=== PATIENT | male | born 1960 | race Caucasian/White ===

== ENCOUNTER → 2020-07-02 | Outpatient (CLI) | payer MEDICARE, OTHER ==
[2020-07-02 08:49] VITALS: BP 110/73; PULSE 75; RESP 20; TEMP 98.3
--- NOTE | 2020-07-02 09:20 | P.PAINCN ---
History of Present Illness - Reason for Consult Consult date: 07/02/20 - History of Present Illness This is a 59-year-old patient referred by Dr. Villagomez/Pelon with a chief complaint of low back pain and right shoulder pain. The patient is a past medical history of very poorly controlled diabetes with peripheral neuropathy, atrial fibrillation on Xarelto, and significantly morbid obesity. He was a patient Dr. Villagomez's who is managing his low back pain and leg pain with Neurontin 800 mg 3 times a day and Ultram 50 mg 1-4 times a day as needed. Currently he says his low back pain is doing well and he feels that his shoulder pain is of significant prior to him. Pain is located in the right shoulder with radiation into the elbow described as aching stabbing and very painful. Pain is currently an 8 out of 10, 2 out of 10 at its best with medication. He does describe weakness in that right arm due to pain in the shoulder area. He hasn't seen Dr. Webb for this, however was noted that he is not a surgical candidate. Given his significant medical history, poorly controlled diabetes and overall habitus he is been told many times that he is not a candidate for cortisone injections or shoulder surgery. Patient denies adverse drug effects from medications. Patient also denies new-onset weakness, bowel/bladder incontinence, or any other signs or symptoms of cauda equina syndrome. There are no signs of acute intoxication, and no indications of medication diversion or overuse. In addition to above, 13-point review of systems is also negative for chest pain, shortness of breath, changes in vision, changes in hearing, new onset weakness, abdominal pain, diarrhea, extreme fatigue, malaise, fever, skin changes, homicidal or suicidal ideation, or bowel or bladder incontinence. Physical exam: Vital Signs: Reviewed in EMR GENERAL: Morbidly obese, in no acute distress, walks with a walker PSYCH: Mood and affect is appropriate. Awake, alert, and oriented SKIN: Skin color, texture, turgor normal, no rashes or lesions HEENT: Normocephalic, atraumatic. EOM intact CV: No pedal edema RESP: Respirations are unlabored, no audible wheezing GI: Abdomen non-distended MUSCULOSKELETAL: LLE: 5/5 hip flexion, 4/5 knee extension, 3/5 dorsiflexion, ankle eversion 3/5, EHL 3/5 RLE: 5/5 hip flexion, 4/5 knee extension, 3/5 dorsiflexion, ankle eversion 3/5, EHL 3/5 Neck: No pain to palpation over the cervical paraspinous muscles. Spurling negative, Axial Loading Test negative, Hanna's sign negative. Some pain with right sided neck extension. Lumbar spine: Straight leg raising in the sitting position is negative for radicular pain. No pain to palpation over the lumbar spine and paraspinous muscles. Negative for pain with facet loading and back extension/rotation. Normal range of motion without pain reproduction Extremities: Peripheral joint ROM is full and pain free without obvious instability or laxity in all four extremities. No edema or skin discolorations noted. Gait: Gait is normal NEUR: Bilateral upper and lower extremity coordination and muscle stretch reflexes are physiologic and symmetric. Negative clonus. No loss of sensation is noted. Cranial nerves are grossly intact. Imaging: Lumbar MRI 2018 L3 4: Broad-based posterior disc bulge causing slight anterior mass effect on thecal sac. No significant stenosis or local mass effect. Mild facet arthropathy. L4-L5: Small posterior disc bulge somewhat eccentric towards the left, some increased signal present in the posterior aspect of the distal to midline compatible with annular tear. No significant central canal stenosis. Maybe some contact with the proximal L5 nerve. Some facet arthropathy change. L5-S1. Small posterior disc bulge with contact approximately S1 nerve roots. Circumflex marginal extension and play discomfort foraminal encroachment, no si gnificant central canal stenosis. Assessment: 1. right shoulder pain 2. low back pain Plan: 1. Explanation: Diagnoses, prognoses, and multiple treatment options including but not limited to physical therapy, interventional therapies, medication management and surgery were discussed with the patient and all questions were answered to the patient's satisfaction. 2. Investigations: Consider cervical MRI in the future, however I do not feel that he has pain originating from her cervical spine. He notes that he has had multiple images done of his shoulder at multiple offices, I told him to bring these back with him if he can. 3. Counseling: The patient was counseled for 3 minutes on SMOKING CESSATION, BODY MASS INDEX, EXERCISE. Specifically, the patient was instructed regarding the importance of smoking cessation, weight control, and exercise in the context of both chronic pain and overall health. 4. Procedures: At this point I do not consider him a procedure candidate. Given his weight, medical history, poorly controlled diabetes, I do not think that a steroid injection would be helpful for him. 5. Consultations: None 6. Medications: Abdomen TENS unit, lidocaine patches, and magnesium 4 mg twice a day. He is not a good candidate for NSAIDs given his cardiac history and would not be a good candidate for TCAs given his cardiac history. He is on gabapentin 800 mg 3 times a day which is helpful, I did say there is a chance that they can go up on this to 900 mg 3 times a day. 7. Disposition: 8 weeks or as needed Past Medical History Past Medical History: Atrial Fibrillation, CVA/TIA, Diabetes Mellitus, GERD/Reflux, Hyperlipidemia, Hypertension, Sleep Apnea/CPAP/BIPAP Additional Past Medical History / Comment(s): diabetic neuropathy, "leaky valve", frequent foot & ankle swelling, USES C-PAP History of Any Multi-Drug Resistant Organisms: None Reported Past Surgical History: Bariatric Surgery, Hernia Repair Additional Past Surgical History / Comment(s): GASTRIC SLEEVE. EGD Past Anesthesia/Blood Transfusion Reactions: No Reported Reaction Smoking Status: Former smoker - Past Family History Mother Family Medical History: Cancer Medications and Allergies Home Medications Medication Instructions Recorded Confirmed Type Cholecalciferol [Vitamin D3 (25 1,000 unit PO DAILY 06/27/20 07/02/20 History Mcg = 1000 Iu)] Furosemide [Lasix] 40 mg PO DAILY 06/27/20 07/02/20 History Gabapentin 800 mg PO TID 06/27/20 07/02/20 History Losartan [Cozaar] 50 mg PO DAILY 06/27/20 07/02/20 History Metoprolol Tartrate [Lopressor] 100 mg PO BID 06/27/20 07/02/20 History Omeprazole [PriLOSEC] 20 mg PO AC-BID 06/27/20 07/02/20 History Pioglitazone [Actos] 30 mg PO DAILY 06/27/20 07/02/20 History Rivaroxaban [Xarelto] 20 mg PO HS 06/27/20 07/02/20 History Spironolactone 25 mg PO DAILY 06/27/20 07/02/20 History glipiZIDE [Glucotrol] 2.5 mg PO AC-BID 06/27/20 07/02/20 History sitaGLIPtin [Januvia] 100 mg PO DAILY 06/27/20 07/02/20 History traMADol HCL [Ultram] 100 mg PO Q6HR PRN 06/27/20 07/02/20 History Allergies Allergy/AdvReac Type Severity Reaction Status Date / Time No Known Allergies Allergy Verified 06/27/20 14:40 PQRS Measure Charge Sheet PQRS Narrative: Smoking Status Former smoker Pain Intensity [Lower Back] 4 Scale Used Numeric (1 - 10) Hx Alcohol Use (MH) No Home Medications: Ambulatory Orders Cholecalciferol [Vitamin D3 (25 Mcg = 1000 Iu)] 1,000 unit PO DAILY 06/27/20 Furosemide [Lasix] 40 mg PO DAILY 06/27/20 Gabapentin 800 mg PO TID 06/27/20 Losartan [Cozaar] 50 mg PO DAILY 06/27/20 Metoprolol Tartrate [Lopressor] 100 mg PO BID 06/27/20 Omeprazole [PriLOSEC] 20 mg PO AC-BID 06/27/20 Pioglitazone [Actos] 30 mg PO DAILY 06/27/20 Rivaroxaban [Xarelto] 20 mg PO HS 06/27/20 Spironolactone 25 mg PO DAILY 06/27/20 glipiZIDE [Glucotrol] 2.5 mg PO AC-BID 06/27/20 sitaGLIPtin [Januvia] 100 mg PO DAILY 06/27/20 traMADol HCL [Ultram] 100 mg PO Q6HR PRN 06/27/20
== END | disposition home or self-care (01) ==
LOC: PNWHC3 08:28
PROVIDERS: ATTEND Anesthesiology
DX: M54.5 Low back pain (principal); M25.511 Pain in right shoulder; I48.91 Unspecified atrial fibrillation; E11.9 Type 2 diabetes mellitus without complications; K21.9 Gastro-esophageal reflux disease without esophagitis; I10 Essential (primary) hypertension; E78.5 Hyperlipidemia, unspecified; G47.33 Obstructive sleep apnea (adult) (pediatric); Z99.89 Dependence on other enabling machines and devices; Z79.891 Long term (current) use of opiate analgesic; Z79.899 Other long term (current) drug therapy; Z79.84 Long term (current) use of oral hypoglycemic drugs; Z87.891 Personal history of nicotine dependence
CPT/HCPCS: 99211

== ENCOUNTER 2021-02-26 07:08 | Day surgery (SDC) | payer MEDICARE ==
[2021-02-22 09:04] VITALS: BMI 68.5
[~2021-02-26 07:08] MED LIST: LACTATED RINGERS 1,000 ML IV SCH
[2021-02-26 07:30] VITALS: TEMP 98
[2021-02-26 07:40] LABS: Glucose,Whole Blood 141 mg/dL (75-99)
[2021-02-26] MEDS ORDERED: MIDAZOLAM 2 MG/2 ML VIAL ONE (08:13)
[2021-02-26] MEDS ORDERED: PROPOFOL 10 MG/ML 20 ML VIAL IV ONE (08:13)
[2021-02-26] MEDS ORDERED: KETAMINE 10 MG/ML 20 ML VIAL ONE (08:13)
--- NOTE | 2021-02-26 08:15 | P.GSHP ---
History of Present Illness H&P Date: 02/26/21 Chief Complaint: GERD, hiatal hernia 60-year-old male known to our service. Underwent previous sleeve gastrectomy. Recently had CAT scan showing small hiatal hernia and mild thickening of the distal esophagus. Complaining of mild reflux. Past Medical History Past Medical History: Atrial Fibrillation, CVA/TIA, Diabetes Mellitus, GERD/Reflux, Hyperlipidemia, Hypertension, Sleep Apnea/CPAP/BIPAP Additional Past Medical History / Comment(s): diabetic neuropathy, "leaky valve", frequent foot & ankle swelling, USES C-PAP, shortness of breath, unable to walk distances History of Any Multi-Drug Resistant Organisms: None Reported Past Surgical History: Bariatric Surgery, Hernia Repair Additional Past Surgical History / Comment(s): GASTRIC SLEEVE. EGD Past Anesthesia/Blood Transfusion Reactions: No Reported Reaction, Motion Sickness Smoking Status: Former smoker - Past Family History Mother Family Medical History: Cancer Medications and Allergies Home Medications Medication Instructions Recorded Confirmed Type Cholecalciferol [Vitamin D3 (25 1,000 unit PO DAILY 06/27/20 02/22/21 History Mcg = 1000 Iu)] Furosemide [Lasix] 40 mg PO DAILY 06/27/20 02/22/21 History Gabapentin 800 mg PO TID 06/27/20 02/22/21 History Losartan [Cozaar] 50 mg PO DAILY 06/27/20 02/22/21 History Metoprolol Tartrate [Lopressor] 50 mg PO BID 06/27/20 02/22/21 History Omeprazole [PriLOSEC] 20 mg PO AC-BID 06/27/20 02/22/21 History Pioglitazone [Actos] 30 mg PO DAILY 06/27/20 02/22/21 History Rivaroxaban [Xarelto] 20 mg PO HS 06/27/20 02/22/21 History Spironolactone 25 mg PO DAILY 06/27/20 02/22/21 History glipiZIDE [Glucotrol] 2.5 mg PO AC-BID 06/27/20 02/22/21 History sitaGLIPtin [Januvia] 100 mg PO DAILY 06/27/20 02/22/21 History traMADol HCL [Ultram] 50 mg PO Q6HR PRN 06/27/20 02/22/21 History metFORMIN HCL ER [Glucophage Xr] 500 mg PO BID 07/02/20 02/22/21 History Albuterol Nebulized [Ventolin 2.5 mg INHALATION Q6H 02/22/21 02/22/21 History Nebulized] Allergies Allergy/AdvReac Type Severity Reaction Status Date / Time latex Allergy Rash/Hives Verified 02/26/21 07:31 Surgical - Exam Vital Signs Temp Pulse Resp BP Pulse Ox 98 F 72 16 164/75 95 02/26/21 07:29 02/26/21 07:29 02/26/21 07:29 02/26/21 07:29 02/26/21 07:29 Physical exam: General: Well-developed, well-nourished HEENT: Normocephalic, sclerae nonicteric Abdomen: Nontender, nondistended Extremities: No edema Neuro: Alert and oriented Results - Labs Abnormal Lab Results - Last 24 Hours (Table) 02/26/21 Range/Units 07:38 POC Glucose (mg/dL) 141 H (75-99) mg/dL Assessment and Plan (1) GERD (gastroesophageal reflux disease) Narrative/Plan: Will proceed with upper endoscopy at this time Current Visit: Yes Status: Acute Code(s): K21.9 - GASTRO-ESOPHAGEAL REFLUX DISEASE WITHOUT ESOPHAGITIS SNOMED Code(s): 345952181
--- NOTE | 2021-02-26 08:29 | P.PCN ---
Date of Procedure: 02/26/21 Procedure(s) Performed: Preoperative Dx: GERD Postoperative Dx: Small hiatal hernia, mild gastritis, mild distal esophagitis Procedure: EGD with Bx Anesthesia: Sedation Endoscopist: Dr. Perez Specimens: Antrum, distal esophagus Endoscopic Procedure: The patient was on the endoscopy table in the left decub itus position. The Olympus gastroscope was inserted into the oropharynx and passed under direct visualization to the region of the third portion of the duodenum. From that point the scope was slowly withdrawn inspecting all surfaces carefully. There were no neoplastic inflammatory or polypoid lesions throughout the duodenum. The pylorus was widely patent. The stomach was carefully inspected. There was mild gastritis present. The patient's previous sleeve gastrectomy staple line was fully intact. No retroflexion took place. A biopsy of the antrum took place. At the proximal stomach with the suggestion of a small hiatal hernia with approximately 2-3 cm of the sleeve present above the diaphragmatic hiatus. At the distal esophagus there was non-circumferential 1 inflammatory changes consistent with reflux esophagitis. Biopsies of the distal esophagus took place. The inflammatory changes extended 2 cm above the Z line. The remainder the esophagus appear normal. The patient was then taken to the recovery room in stable condition per anesthesia guidelines. Recommendations: Await biopsy results. Continue antiacids.
[2021-02-26 08:54] VITALS: BP 131/61; PULSE 79; RESP 14
== END 2021-02-26 09:13 | disposition home or self-care (01) ==
LOC: ORWHC2ENDO 07:08
PROVIDERS: ATTEND Surgery
DX: K21.00 Gastro-esophageal reflux disease with esophagitis, without bleeding (principal); K44.9 Diaphragmatic hernia without obstruction or gangrene; E11.40 Type 2 diabetes mellitus with diabetic neuropathy, unspecified; E78.5 Hyperlipidemia, unspecified; I10 Essential (primary) hypertension; I48.91 Unspecified atrial fibrillation; K29.50 Unspecified chronic gastritis without bleeding; Z79.84 Long term (current) use of oral hypoglycemic drugs; Z86.73 Personal history of transient ischemic attack (TIA), and cerebral infarction without residual deficits; Z87.891 Personal history of nicotine dependence; Z91.040 Latex allergy status; Z98.84 Bariatric surgery status
CPT/HCPCS: 43239; 88305; J2250; J2704

== ENCOUNTER → 2021-05-07 | Outpatient (CLI) | payer MEDICARE, OTHER ==
[2021-05-07 12:57] VITALS: BP 154/72; PULSE 72; TEMP 98.1; BMI 69.4
--- NOTE | 2021-05-07 13:48 | P.BASOAP ---
Subjective Progress Note Date: 05/07/21 Principal diagnosis: Morbid obesity Patient returns for evaluation. He was last seen on 727 and underwent EGD at that time. EGD showed small hiatal hernia and mild reflux esophagitis. Biopsies benign. Patient has gained further weight. He states he is concerned he may have chosen the wrong surgery at this time and is considering gastric bypass. His heartburn symptoms did resolve after going from 20 mg to 40 mg once daily. He is doing a food diary. Denies pain. Objective - Vital Signs Vital signs: Vital Signs Temp 98.1 F 05/07/21 12:52 Pulse 72 05/07/21 12:52 Resp BP 154/72 05/07/21 12:52 Pulse Ox Intake & Output 05/06/21 05/07/21 05/07/21 18:59 06:59 18:59 Weight 219.539 kg - Exam Abdomen: Soft, nontender, nondistended Assessment/Plan (1) Morbid obesity Narrative/Plan: 60-year-old male with weight gain after prior sleeve gastrectomy. Patient also with reflux symptoms although they seemed to be well controlled with 40 mg omeprazole daily. Discussed options of referral for possible conversion to gastric bypass or duodenal switch. He will continue his food diary and increase his exercise level. He will contact me if he desires to have further surgical evaluation at tertiary care center. Plan: Date: 05/07/21 Initial Weight: Initial BMI: Current Weight: 219.539 kg Current BMI: 69.4 Type of Surgery: Total Volume in Band: Previous Volume: Volume Removed: Volume Added: Band Size:
== END ==
LOC: BARWHC3 12:38
PROVIDERS: ATTEND Surgery
DX: E66.01 Morbid (severe) obesity due to excess calories (principal); K21.9 Gastro-esophageal reflux disease without esophagitis; Z68.44 Body mass index [BMI] 60.0-69.9, adult; Z98.84 Bariatric surgery status; Z87.891 Personal history of nicotine dependence; Z91.040 Latex allergy status
CPT/HCPCS: 99211

== ENCOUNTER → 2021-07-11 | Outpatient (CLI) | payer MEDICARE, OTHER ==
[~2021-07-11] MED LIST changes: +DOBUTamine DRIP for NUC MED 500 MG in DEXTROSE/WATER 1 250ML.BAG IV PRN; -LACTATED RINGERS 1,000 ML IV SCH
--- NOTE | 2021-07-11 19:21 | P.STRESS ---
- Stress Test Note Stress Test Results/Findings: Exam Performed: dobutamine stress echo with con Exam Date: 07/11/21 Reason for Exam: CP Height: 5 ft 11 in Weight: 485 kg Protocol: STRESS ECHO Stage: 30 MCG Duration of Exercise: 8:47 Resting Heart Rate: 67 Resting Blood Pressure: 131/478 Maximum Achieved Heart Rate: 140 Maximum Achieved Blood Pressure: 131/48 85% PMHR: 138 100% PMHR: 162 METS: Technologist Comment: PT IN CHRONIC AFIB Stress Test Results/Findings: Patient received dobutamine infusion per protocol Underlying atrial fibrillation and twelve-lead EKG Intermittent PVCs noted during dobutamine infusion No nonsustained ventricular tachycardia Peak 100 140 beats a minute Normal blood pressure response No symptoms Baseline 2-D echo images were suboptimal Definity contrast was used Stepwise augmentation of overall LV contractility, without development of any wall motion abnormalities @Recovery region global LV systolic function and a normal Impression No ECG or echocardiographic evidence for ischemia during dobutamine infusion
== END | disposition home or self-care (01) ==
LOC: RADNMMAIN 08:47
PROVIDERS: ATTEND Internal Medicine Cardiovascular Disease
DX: R07.2 Precordial pain (principal)
CPT/HCPCS: C8930; Q9950; 93351

== ENCOUNTER 2023-05-25 05:58 | Inpatient (IN) | payer MEDICARE, OTHER ==
[2023-05-25] MEDS ORDERED: ACETAMINOPHEN TAB 325 MG TAB PO STA (06:24)
--- NOTE | 2023-05-25 06:58 | ED ---
General Adult HPI - General Chief complaint: Shortness of Breath Stated complaint: difficulty breathing Time Seen by Provider: 05/25/23 06:13 Source: patient, EMS, RN notes reviewed Mode of arrival: EMS - History of Present Illness Initial comments: 62-year-old male with a past medical history significant for atrial fibrillation, high blood pressure, morbid obesity presents the emergency department with a chief complaint of shortness of breath. Patient is currently in a rehab facility after recent diagnosis of rhabdomyolysis last week. He reports that he's been having a dry cough all night which prompted him to have left lower quadrant abdominal pain that is sharp. He does not report feeling the pain at the time of obtaining initial history and physical exam. He denies any known fevers, headache, sore throat, nausea, vomiting, abdominal pain, chest pain, or palpitations. Has been taking his medications as prescribed. Denies recent sick contacts. - Related Data Home Medications Medication Instructions Recorded Confirmed Furosemide [Lasix] 40 mg PO DAILY@0600 06/27/20 05/25/23 Omeprazole [PriLOSEC] 20 mg PO DAILY@0600 06/27/20 05/25/23 Pioglitazone [Actos] 30 mg PO DAILY 06/27/20 05/25/23 Rivaroxaban [Xarelto] 20 mg PO DAILY@1700 06/27/20 05/25/23 Acetaminophen Tab [Tylenol] 650 mg PO Q6H PRN 05/25/23 05/25/23 Atorvastatin [Lipitor] 20 mg PO HS 05/25/23 05/25/23 Baclofen 5 mg PO TID@0600,1400,2200 05/25/23 05/25/23 Budesonide [Pulmicort] 0.5 mg INHALATION RT-BID 05/25/23 05/25/23 Cetirizine HCl [Zyrtec] 10 mg PO DAILY 05/25/23 05/25/23 Cholecalciferol [Vitamin D3 (25 25 mcg PO DAILY 05/25/23 05/25/23 Mcg = 1000 Iu)] Empagliflozin [Jardiance] 10 mg PO DAILY 05/25/23 05/25/23 Gabapentin [Neurontin] 400 mg PO TID@0600,1400,2200 05/25/23 05/25/23 HYDROcodone/APAP 7.5-325MG [[place] 1 tab PO Q6H PRN 05/25/23 05/25/23 7.5-325] Hydrophilic Cream [Triad (Kerodex 1 applic TOPICAL HS 05/25/23 05/25/23 geq)] Hydrophilic Cream [Triad (Kerodex 1 applic TOPICAL Q12H PRN 05/25/23 05/25/23 geq)] Insulin Degludec [Tresiba] 30 units SQ DAILY 05/25/23 05/25/23 Insulin Lispro [humaLOG Kwikpen] See Protocol SQ QID 05/25/23 05/25/23 Ipratropium-Albuterol Nebulize 3 ml INHALATION RT-Q6H 05/25/23 05/25/23 [Duoneb 0.5 mg-3 mg/3 ml Soln] Metoprolol Tartrate [Lopressor] 25 mg PO BID 05/25/23 05/25/23 Sennosides [Senokot] 8.6 mg PO BID 05/25/23 05/25/23 Tirzepatide [Mounjaro] 7.5 mg SQ FR 05/25/23 05/25/23 polyethylene glycoL 3350 [Miralax] 17 gm PO DAILY PRN 05/25/23 05/25/23 Allergies Allergy/AdvReac Type Severity Reaction Status Date / Time latex Allergy Rash/Hives Verified 05/25/23 10:54 Review of Systems ROS Statement: Those systems with pertinent positive or pertinent negative responses have been documented in the HPI. ROS Other: All systems not noted in ROS Statement are negative. Past Medical History Past Medical History: Atrial Fibrillation, CVA/TIA, Diabetes Mellitus, GERD/Reflux, Hyperlipidemia, Hypertension, Sleep Apnea/CPAP/BIPAP Additional Past Medical History / Comment(s): diabetic neuropathy, "leaky valve", frequent foot & ankle swelling, USES C-PAP, shortness of breath, unable to walk distances. rhabdo History of Any Multi-Drug Resistant Organisms: None Reported Past Surgical History: Bariatric Surgery, Hernia Repair Additional Past Surgical History / Comment(s): GASTRIC SLEEVE. EGD Past Anesthesia/Blood Transfusion Reactions: No Reported Reaction, Motion Sickness Past Psychological History: Anxiety Smoking Status: Former smoker - Past Family History Mother Family Medical History: Cancer General Exam - General Exam Comments Initial Comments: General: Alert, in no acute distress, morbidly obese Head: atraumatic normocephalic. Eyes PERRL, EOMI intact, mucous membranes moist Respiratory: Lungs clear to auscultation bilaterally Cardiovascular: Heart rate rirregularly irregular Abdominal: Soft without guarding or rebound Extremities: Normal inspection with full range of motion and normal capillary refill Neuroogic: alert and oriented 3, CN II-XII intact, able to ambulate with steady gait Skin: warm dry and intact, pale Course Vital Signs 05/25/23 05/25/23 05/25/23 05:59 06:15 07:54 Temperature 97.7 F Pulse Rate 61 63 Respiratory 26 H 26 H 20 Rate Blood Pressure 121/68 106/65 O2 Sat by Pulse 100 100 Oximetry 05/25/23 05/25/23 05/25/23 10:05 11:41 13:49 Temperature Pulse Rate 65 63 Respiratory 18 18 Rate Blood Pressure 107/79 123/78 O2 Sat by Pulse 95 95 97 Oximetry 05/25/23 05/25/23 14:00 14:15 Temperature 98.1 F Pulse Rate 66 61 Respiratory 16 18 Rate Blood Pressure 124/72 124/72 O2 Sat by Pulse 97 95 Oximetry - Reevaluation(s) Reevaluation #1: 05/25/23 09:50 Should reevaluated. Patient agreeable with the plan for admission. Reevaluation #2: 05/25/23 10:[address] Gilliam to agrees and accepts the patient for admission and , consult to cardiology EKG Findings - EKG Comments: EKG Findings:: I interpreted the following: EKG performed at 06:20 rate 69 bpm and atrial fibrillation. *[place], QRS duration 103, QT/QTc 398/418 Medical Decision Making - Medical Decision Making Was pt. sent in by a medical professional or institution (, PA, DIRECTOR SURFACE TRANSPORTATION, urgent care, hospital, or halfway...) When possible be specific @ -[No] Did you speak to anyone other than the patient for history (EMS, parent, family, police, friend...)? What history was obtained from this source @ -EMS Did you review nursing and triage notes (agree or disagree)? Why? @ -[I reviewed and agree with nursing and triage notes] Were old charts reviewed (outside hosp., previous admission, EMS record, old EKG, old radiological studies, urgent care reports/EKG's, halfway records)? Report findings @ -[No old charts were reviewed] Differential Diagnosis (chest pain, altered mental status, abdominal pain women, abdominal pain men, vaginal bleeding, weakness, fever, dyspnea, syncope, headache, dizziness, GI bleed, back pain, seizure, CVA, palpatations, mental health, musculoskeletal)? @ -[not applicable] EKG interpreted by me (3pts min.). @ -[As above] X-rays interpreted by me (1pt min.). @ -Yes CT interpreted by me (1pt min.). @ -[None done] U/S interpreted by me (1pt. min.). @ -[None done] What testing was considered but not performed or refused? (CT, X-rays, U/S, labs)? Why? @ -[None] What meds were considered but not given or refused? Why? @ -[None] Did you discuss the management of the patient with other professionals (professionals i.e. , PA, DIRECTOR SURFACE TRANSPORTATION, lab, RT, psych nurse, social work instructor, horticulture worker, teacher, job placement officer, case loader operator)? Give summary @ -[No] Was smoking cessation discussed for >3mins.? @ -[No] Was critical care preformed (if so, how long)? @ -[No] Were there social determinants of health that impacted care today? How? (Homelessness, low income, unemployed, alcoholism, drug addiction, transportation, low edu. Level, literacy, decrease access to med. care, assisted, rehab)? @ -[No] Was there de-escalation of care discussed even if they declined (Discuss DNR or withdrawal of care, Hospice)? DNR status @ -[No] What co-morbidities impacted this encounter? (DM, HTN, Smoking, COPD, CAD, Cancer, CVA, ARF, Chemo, Hep., AIDS, mental health diagnosis, sleep apnea, morbid obesity)? @ -[None] Was patient admitted / discharged? Hospital course, mention meds given and route, prescriptions, significant lab abnormalities, going to OR and other pertinent info. @ Admission. This is a 62-year-old male who is morbidly obese with a history of hypertension, hyperlipidemia and atrial fibrillation presents to the emergency department with shortness of breath. Patient had a thorough history and physical exam performed on the ED. Patient is obese. Heart rate is irregular the irregular. Lung sounds diminished. Abdomen is soft and nontender. Patient had laboratory studies performed which reveals WBC 8.2, hemoglobin 10.1 coagulation studies unremarkable sodium 140, potassium 4.3 creatinine 0.2, BUN 23 and troponin negative. BNP 3400 urinalysis negative. Covid, influenza RSV negative Chest x-ray reveals low lung volumes with generalized lacy appearance which could represent atelectasis versus pulmonary edema. Discuss results in detail with the patient verbalized understanding. Estratest. He is agreeable with admission. Patient will be given 40 mg Lasix IV and Nitropaste. Case was discussed with Dr. Mane st[facility] and accepts the patient for admission with recommended consult to cardiology. Case discussed with Dr. Hansen [facility] who agrees with plan of care Undiagnosed new problem with uncertain prognosis? @ -[No] Drug Therapy requiring intensive monitoring for toxicity (Heparin, Nitro, Insulin, Cardizem)? @ -[No] Were any procedures done? @ -[No] Diagnosis/symptom? @ -Shortness of Breath - CHF Acute, or Chronic, or Acute on Chronic? @ -Acute Uncomplicated (without systemic symptoms) or Complicated (systemic symptoms)? @ -Uncomplicated Side effects of treatment? @ -[No] Exacerbation, Progression, or Severe Exacerbation? @ -[No] Poses a threat to life or bodily function? How? (Chest pain, USA, ID, pneumonia, PE, COPD, DKA, ARF, appy, cholecystitis, CVA, Diverticulitis, Homicidal, Suicidal, threat to staff... and all critical care pts) @ -Low likelihood ] - Lab Data Result diagrams: 05/25/23 07:52 05/25/23 07:52 Lab Results 05/25/23 05/25/23 05/25/23 Range/Units 07:52 07:52 07:52 WBC 8.2 (3.8-10.6) k/uL RBC 4.14 L (4.30-5.90) m/uL Hgb 10.1 L (13.0-17.5) gm/dL Hct 33.8 L (39.0-53.0) % MCV 81.7 (80.0-100.0) fL MCH 24.3 L (25.0-35.0) pg MCHC 29.7 L (31.0-37.0) g/dL RDW 16.9 H (11.5-15.5) % Plt Count 335 (150-450) k/uL MPV 7.4 Neutrophils % 64 % Lymphocytes % 24 % Monocytes % 6 % Eosinophils % 4 % Basophils % 0 % Neutrophils # 5.2 (1.3-7.7) k/uL Lymphocytes # 2.0 (1.0-4.8) k/uL Monocytes # 0.5 (0-1.0) k/uL Eosinophils # 0.4 (0-0.7) k/uL Basophils # 0.0 (0-0.2) k/uL Hypochromasia Marked Anisocytosis Slight PT (10.0-12.5) sec INR (<1.2) APTT (22.0-30.0) sec Sodium 140 (137-145) mmol/L Potassium 4.3 (3.5-5.1) mmol/L Chloride 104 (98-107) mmol/L Carbon Dioxide 29 (22-30) mmol/L Anion Gap 7 mmol/L BUN 23 H (9-20) mg/dL Creatinine 0.82 (0.66-1.25) mg/dL Est GFR (CKD-EPI)AfAm >90 (>60 ml/min/1.73 sqM) Est GFR (CKD-EPI)NonAf >90 (>60 ml/min/1.73 sqM) Glucose 134 H (74-99) mg/dL Calcium 8.5 (8.4-10.2) mg/dL Magnesium 2.0 (1.6-2.3) mg/dL Total Bilirubin 0.6 (0.2-1.3) mg/dL AST 22 (17-59) U/L ALT 11 (4-49) U/L Alkaline Phosphatase 57 (38-126) U/L Troponin I (0.000-0.034) ng/mL NT-Pro-B Natriuret Pep 3480 pg/mL Total Protein 6.5 (6.3-8.2) g/dL Albumin 3.4 L (3.5-5.0) g/dL Urine Color Urine Appearance (Clear) Urine pH (5.0-8.0) Ur Specific [place] (1.001-1.035) Urine Protein (Negative) Urine Glucose (UA) (Negative) Urine Ketones (Negative) Urine Blood (Negative) Urine Nitrite (Negative) Urine Bilirubin (Negative) Urine Urobilinogen (<2.0) mg/dL Ur Leukocyte Esterase (Negative) Urine RBC (0-5) /hpf Urine WBC (0-5) /hpf Ur Squamous Epith Cells (0-4) /hpf Urine Bacteria (None) /hpf Influenza Type A (PCR) Not Detected (Not Detectd) Influenza Type B (PCR) Not Detected (Not Detectd) RSV (PCR) Not Detected (Not Detectd) SARS-CoV-2 (PCR) Not Detected (Not Detectd) 05/25/23 05/25/23 05/25/23 Range/Units 07:52 07:52 07:52 WBC (3.8-10.6) k/uL RBC (4.30-5.90) m/uL Hgb (13.0-17.5) gm/dL Hct (39.0-53.0) % MCV (80.0-100.0) fL MCH (25.0-35.0) pg MCHC (31.0-37.0) g/dL RDW (11.5-15.5) % Plt Count (150-450) k/uL MPV Neutrophils % % Lymphocytes % % Monocytes % % Eosinophils % % Basophils % % Neutrophils # (1.3-7.7) k/uL Lymphocytes # (1.0-4.8) k/uL Monocytes # (0-1.0) k/uL Eosinophils # (0-0.7) k/uL Basophils # (0-0.2) k/uL Hypochromasia Anisocytosis PT 10.9 (10.0-12.5) sec INR 1.0 (<1.2) APTT 22.4 (22.0-30.0) sec Sodium (137-145) mmol/L Potassium (3.5-5.1) mmol/L Chloride (98-107) mmol/L Carbon Dioxide (22-30) mmol/L Anion Gap mmol/L BUN (9-20) mg/dL Creatinine (0.66-1.25) mg/dL Est GFR (CKD-EPI)AfAm (>60 ml/min/1.73 sqM) Est GFR (CKD-EPI)NonAf (>60 ml/min/1.73 sqM) Glucose (74-99) mg/dL Calcium (8.4-10.2) mg/dL Magnesium (1.6-2.3) mg/dL Total Bilirubin (0.2-1.3) mg/dL AST (17-59) U/L ALT (4-49) U/L Alkaline Phosphatase (38-126) U/L Troponin I <0.012 (0.000-0.034) ng/mL NT-Pro-B Natriuret Pep pg/mL Total Protein (6.3-8.2) g/dL Albumin (3.5-5.0) g/dL Urine Color Light Yellow Urine Appearance Clear (Clear) Urine pH 5.0 (5.0-8.0) Ur Specific Lindsay 1.020 (1.001-1.035) Urine Protein Negative (Negative) Urine Glucose (UA) 4+ H (Negative) Urine Ketones Negative (Negative) Urine Blood Negative (Negative) Urine Nitrite Negative (Negative) Urine Bilirubin Negative (Negative) Urine Urobilinogen <2.0 (<2.0) mg/dL Ur Leukocyte Esterase Small (Negative) Urine RBC 0 (0-5) /hpf Urine WBC 10 H (0-5) /hpf Ur Squamous Epith Cells 10 H (0-4) /hpf Urine Bacteria Occasional H (None) /hpf Influenza Type A (PCR) (Not Detectd) Influenza Type B (PCR) (Not Detectd) RSV (PCR) (Not Detectd) SARS-CoV-2 (PCR) (Not Detectd) Disposition Clinical Impression: Morbid obesity, Congestive heart failure Disposition: ADMITTED IP TO THIS HOSP Condition: Fair Is patient prescribed a controlled substance at d/c from ED?: No Time of Disposition: 10:03
--- NOTE | 2023-05-25 07:15 | XR ---
EXAMINATION TYPE: XR chest 1V portable DATE OF EXAM: 05/25/2023 6:40 AM CLINICAL INDICATION:Male, 62 years old with history of SOB; [facility] COMPARISON: Chest radiographs from and 2513 TECHNIQUE: XR chest 1V portable Frontal view of the chest. FINDINGS: Lungs/Pleura: Low lung volumes are present. There is no evidence of pleural effusion, focal consolida tion, or pneumothorax. Pulmonary vascularity: Unremarkable. Heart/mediastinum: Cardiomediastinal silhouette is prominent in size. Musculoskeletal: No acute osseous pathology. IMPRESSION: Low lung volumes with a generalized hazy appearance which could represent atelectasis versus pulmonar y edema correlate with serum BNP.
[2023-05-25] MEDS: LIDOCAINE 5% PATCH TOPICAL SCH (07:57)
[2023-05-25 08:04] LABS: Anisocytosis Slight; Basophils % (A) 0 %; Eosinophils # (A) 0.4 k/uL (0-0.7); Eosinophils % (A) 4 %; HCT 33.8 % (39.0-53.0); HGB 10.1 gm/dL (13.0-17.5); Hypochromasia Marked; Lymphocytes % (A) 24 %; MCH 24.3 pg (25.0-35.0); MCHC 29.7 g/dL (31.0-37.0); MCV 81.7 fL (80.0-100.0); Mean Platelet Volume 7.4; Monocytes # (A) 0.5 k/uL (0-1.0); Monocytes % (A) 6 %; Neutrophils # (A) 5.2 k/uL (1.3-7.7); Neutrophils % (A) 64 %; Platelet Count 335 k/uL (150-450); RBC 4.14 m/uL (4.30-5.90); RDW 16.9 % (11.5-15.5); WBC 8.2 k/uL (3.8-10.6)
[2023-05-25 08:14] LABS: ALT 11 U/L (4-49); AST 22 U/L (17-59); African American GFR (CKD) >90 (>60 ml/min/1.73 sqM); Albumin 3.4 g/dL (3.5-5.0); Alkaline Phosphatase 57 U/L (38-126); Anion Gap 7 mmol/L; Blood Urea Nitrogen 23 mg/dL (9-20); Calcium 8.5 mg/dL (8.4-10.2); Carbon Dioxide 29 mmol/L (22-30); Chloride 104 mmol/L (98-107); Glucose 134 mg/dL (74-99); Non-African American GFR(CKD) >90 (>60 ml/min/1.73 sqM); Potassium 4.3 mmol/L (3.5-5.1); Sodium 140 mmol/L (137-145); Total Bilirubin 0.6 mg/dL (0.2-1.3); Total Protein 6.5 g/dL (6.3-8.2)
[2023-05-25 08:21] LABS: NT-Pro-B-Type Natriuretic Pept 3480 pg/mL
[2023-05-25 08:27] LABS: Partial Thromboplastin Time 22.4 sec (22.0-30.0); Prothrombin Time 10.9 sec (10.0-12.5)
[2023-05-25] MEDS ORDERED: NITROGLYCERIN OINT 1 INCH/GM PACKET TOPICAL STA (09:51)
[2023-05-25] MEDS ORDERED: FUROSEMIDE 10 MG/ML 4 ML VIAL IV STA (09:51)
[2023-05-25] MEDS ORDERED: NALOXONE 0.4 MG/ML 1 ML VIAL IV PRN (10:04)
[2023-05-25 12:05] LABS: Glucose,Whole Blood 130 mg/dL (70-110)
[2023-05-25 12:08] LABS: Appearance,Urine Clear (Clear); Bilirubin,Urine Negative (Negative); Blood,Urine Negative (Negative); Color,Urine Light Yellow; Glucose,Urine (UA) 4+ (Negative); Ketones,Urine Negative (Negative); Leukocyte Esterase,Urine Small (Negative); Nitrite,Urine Negative (Negative); Protein,Urine Negative (Negative); Urobilinogen,Urine <2.0 mg/dL (<2.0)
[2023-05-25 12:28] LABS: RBC,Urine 0 /hpf (0-5); Squamous Epithelial Cell,Urine 10 /hpf (0-4); WBC,Urine 10 /hpf (0-5)
[2023-05-25 12:29] LABS: Bacteria,Urine Occasional /hpf
--- NOTE | 2023-05-25 13:46 | P.CRDCN ---
History of Present Illness Consult date: 05/25/23 Consult reason: congestive heart failure History of present illness: History of present illness: This is a 62-year-old male patient of Dr. Cates with past medical history of coronary artery disease, atrial fibrillation, morbid obesity, hypertension, hyperlipidemia, diabetes, diastolic heart failure. We have been asked to evaluate the patient for heart failure. Patient was last seen in the office in January 2022. Patient states that it started with pain in the left side of his abdomen and it caused his difficulty in breathing, worse despite using his CPAP. He states he was last hospitalized 10-12 years ago for heart failure. He state s he recently lost 6 gallons of fluid and found he had diuresed to have quickly and was at [facility] for electrolyte abnormalities. Patient is status post IV Lasix 40 mg 1. EKG atrial fibrillation with controlled rate Chest x-ray:low lung volumes with generalized hazy appearance which could represent atelectasis versus pulmonary edema correlate her serum BNP. WBC 8.2, hemoglobin 10.1, platelet count 335. INR 1. Electrolytes normal. BUN 23 creatinine 0.82. Troponin negative 1. ProBNP 3480. Urinalysis with 4+ glucose. Influenza A, influenza B, RSV, Covid 19 expected. Home cardiac medications: atorvastatin 20 mg at bedtime, Jardiance 10 mg daily, Lasix 40 mg daily, metoprolol tartrate 25 mg twice daily, Xarelto 20 mg daily Ccardiac catheterization in 2013 revealed intermediate disease about 50% involving the ostial of the first diagonal branch. Echocardiogram performed in the office 11/11/2021 revealed normal LV size and function with EF 55%, moderate concentric left ventricular hypertrophy. Mild mitral regurgitation, mild tricuspid regurgitation PAS P 35 mmHg. Trace to mild pulmonic regurgitation. Review Of Systems: At the time of my evaluation: Constitutional: No fever, no chills. No weakness, fatigue or lethargy. EENT: No headache. No dizziness. Lungs: + shortness of breath, cough, no sputum production. No wheezing. Cardiovascular: No chest pain, no lower extremity edema. No palpitations. No paroxysmal nocturnal dyspnea. No orthopnea. No lightheadedness or dizziness. No syncopal episodes. Abdominal: + abdominal pain. No nausea, vomiting. No diarrhea. No constipation. No bloody or tarry stools. Genitourinary: No dysuria.. No urinary retention. Musculoskeletal: No myalgias. No muscle weakness, no frequent falls. No back pain. No neck pain. Integumentary: No wounds. No rash. No unusual bruising. Neurologic: No aphasia. No facial droop. No change in mentation. No head injury. No headache. Physical examination: Gen: This is a 62-year-old morbidly obese male resting on ER stretcher with head down appears to be in no acute distress. VS: reviewed HEENT: Head is atraumatic, normocephalic. Pupils equal, round. Sclerae is anicteric. NECK: Supple. No JVD. . LUNGS: Clear to auscultation. No wheezes or rhonchi. No intercostal retractions. HEART: Irregulare and rhythm. ABDOMEN: Soft EXTREMITIES: Mild edema to lower extremities. No calf tenderness. NEUROLOGICAL: Patient is awake, alert and oriented x3. Assessment: Acute on chronic diastolic heart failure History of coronary artery disease nonobstructive Permanent atrial fibrillation Morbid obesity Hypertension Hyperlipidemia Diabetes mellitus type 2 Plan Start Patient on IV Lasix 40 mg every 12 hours Monitor I&O, daily weights, electrolytes and renal function Resume patient's home cardiac medications Obtain 2-D echocardiogram and Doppler study to assess cardiac structure and function Further recommendations to follow based upon clinical course Thank you kindly for this consultation. Nurse practitioner note has been reviewed, I agree with documented findings and plan of care. Patient was seen and examined. Past Medical History Past Medical History: Atrial Fibrillation, CVA/TIA, Diabetes Mellitus, GERD/Reflux, Hyperlipidemia, Hypertension, Sleep Apnea/CPAP/BIPAP Additional Past Medical History / Comment(s): diabetic neuropathy, "leaky valve", frequent foot & ankle swelling, USES C-PAP, shortness of breath, unable to walk distances. rhabdo History of Any Multi-Drug Resistant Organisms: None Reported Past Surgical History: Bariatric Surgery, Hernia Repair Additional Past Surgical History / Comment(s): GASTRIC SLEEVE. EGD Past Anesthesia/Blood Transfusion Reactions: No Reported Reaction, Motion Sickness Past Psychological History: Anxiety Smoking Status: Former smoker - Past Family History Mother Family Medical History: Cancer Medications and Allergies Home Medications Medication Instructions Recorded Confirmed Type Furosemide [Lasix] 40 mg PO DAILY@0600 06/27/20 05/25/23 History Omeprazole [PriLOSEC] 20 mg PO DAILY@0600 06/27/20 05/25/23 History Pioglitazone [Actos] 30 mg PO DAILY 06/27/20 05/25/23 History Rivaroxaban [Xarelto] 20 mg PO DAILY@1700 06/27/20 05/25/23 History Acetaminophen Tab [Tylenol] 650 mg PO Q6H PRN 05/25/23 05/25/23 History Atorvastatin [Lipitor] 20 mg PO HS 05/25/23 05/25/23 History Baclofen 5 mg PO TID@0600,1400,2200 05/25/23 05/25/23 History Budesonide [Pulmicort] 0.5 mg INHALATION RT-BID 05/25/23 05/25/23 History Cetirizine HCl [Zyrtec] 10 mg PO DAILY 05/25/23 05/25/23 History Cholecalciferol [Vitamin D3 (25 25 mcg PO DAILY 05/25/23 05/25/23 History Mcg = 1000 Iu)] Empagliflozin [Jardiance] 10 mg PO DAILY 05/25/23 05/25/23 History Gabapentin [Neurontin] 400 mg PO TID@0600,1400,2200 05/25/23 05/25/23 History HYDROcodone/APAP 7.5-325MG [[place] 1 tab PO Q6H PRN 05/25/23 05/25/23 History 7.5-325] Hydrophilic Cream [Triad (Kerodex 1 applic TOPICAL HS 05/25/23 05/25/23 History geq)] Hydrophilic Cream [Triad (Kerodex 1 applic TOPICAL Q12H PRN 05/25/23 05/25/23 History geq)] Insulin Degludec [Tresiba] 30 units SQ DAILY 05/25/23 05/25/23 History Insulin Lispro [humaLOG Kwikpen] See Protocol SQ QID 05/25/23 05/25/23 History Ipratropium-Albuterol Nebulize 3 ml INHALATION RT-Q6H 05/25/23 05/25/23 History [Duoneb 0.5 mg-3 mg/3 ml Soln] Metoprolol Tartrate [Lopressor] 25 mg PO BID 05/25/23 05/25/23 History Sennosides [Senokot] 8.6 mg PO BID 05/25/23 05/25/23 History Tirzepatide [Mounjaro] 7.5 mg SQ FR 05/25/23 05/25/23 History polyethylene glycoL 3350 [Miralax] 17 gm PO DAILY PRN 05/25/23 05/25/23 History Allergies Allergy/AdvReac Type Severity Reaction Status Date / Time latex Allergy Rash/Hives Verified 05/25/23 10:54 Physical Exam Vitals: Vital Signs Temp Pulse Resp BP Pulse Ox 05/25/23 11:41 95 05/25/23 10:05 65 18 107/79 95 05/25/23 07:54 63 20 106/65 100 05/25/23 06:15 26 H 05/25/23 05:59 97.7 F 61 26 H 121/68 100 Intake and Output 05/24/23 05/25/23 05/25/23 22:59 06:59 14:59 Other: Weight 204.117 kg Results 05/25/23 07:52 05/25/23 07:52 Cardiac Enzymes 05/25/23 05/25/23 Range/Units 07:52 07:52 AST 22 (17-59) U/L Troponin I <0.012 (0.000-0.034) ng/mL Coagulation 05/25/23 Range/Units 07:52 PT 10.9 (10.0-12.5) sec APTT 22.4 (22.0-30.0) sec CBC 05/25/23 Range/Units 07:52 WBC 8.2 (3.8-10.6) k/uL RBC 4.14 L (4.30-5.90) m/uL Hgb 10.1 L (13.0-17.5) gm/dL Hct 33.8 L (39.0-53.0) % Plt Count 335 (150-450) k/uL Comprehensive Metabolic Panel 05/25/23 Range/Units 07:52 Sodium 140 (137-145) mmol/L Potassium 4.3 (3.5-5.1) mmol/L Chloride 104 (98-107) mmol/L Carbon Dioxide 29 (22-30) mmol/L BUN 23 H (9-20) mg/dL Creatinine 0.82 (0.66-1.25) mg/dL Glucose 134 H (74-99) mg/dL Calcium 8.5 (8.4-10.2) mg/dL AST 22 (17-59) U/L ALT 11 (4-49) U/L Alkaline Phosphatase 57 (38-126) U/L Total Protein 6.5 (6.3-8.2) g/dL Albumin 3.4 L (3.5-5.0) g/dL Current Medications Generic Name Dose Route Start Last Admin Trade Name Freq PRN Reason Stop Dose Admin Lidocaine 1 patch 05/25/23 09:00 05/25/23 07:57 Lidocaine 5% Patch TOPICAL 1 patch DAILY FABIENNE Administration Protocol Naloxone HCl 0.2 mg 05/25/23 10:04 Naloxone 0.4 Mg/Ml 1 Ml Vial IV Q2M PRN Opioid Reversal Intake and Output 05/24/23 05/25/23 05/25/23 22:59 06:59 14:59 Other: Weight 204.117 kg 05/25/23 07:52 05/25/23 07:52
[2023-05-25] MEDS ORDERED: ONDANSETRON 4 MG/2 ML VIAL IVP PRN (14:24)
[2023-05-25] MEDS ORDERED: polyethylene glycoL 3350 17 GM POWD.PACK PO PRN (14:32)
[2023-05-25] MEDS ORDERED: DEXTROSE 50% SYRINGE 50 ML IVP PRN ×2 (14:33)
--- NOTE | 2023-05-25 15:01 | P.HPIM ---
History of Present Illness H&P Date: 05/25/23 Chief Complaint: Shortness of breath * 62-year-old patient with past medical history of coronary artery disease morbid obesity atrial fibrillation hyperlipidemia hypertension diabetes mellitus chronic congestive heart failure diastolic dysfunction presents to the emergency department because of complaints of shortness of breath patient was admitted an outside rehab facility treated for rhabdomyolysis patient says he's been having dry cough and not feeling well. He denied fever nausea vomiting chest pain palpitations abdominal pain denies any recent sick contacts * Workup in ER included CBC which showed WBC count of 8.2 hemoglobin 10.1 platelet of 335 PT INR 10.9 and 1 * Serum chemistry sodium 140 potassium 4.3 chloride 104 BU and 20 creatinine 0.8 albumin 3.4 patient tested negative for influenza and Covid and RSV * EKG obtained in ER showed atrial fibrillation with controlled ventricular response * Chest x-ray obtained in ER showed low lung volumes * ProBNP 3480 REVIEW OF SYSTEMS: Shortness of breath, cough CONSTITUTIONAL: No fever, no malaise, no fatigue. HEENT: No recent visual problems or hearing problems. Denied any sore throat. CARDIOVASCULAR: No chest pain, orthopnea, PND, no palpitations, no syncope. PULMONARY: No shortness of breath, no cough, no hemoptysis. GASTROINTESTINAL: No diarrhea, no nausea, no vomiting, no abdominal pain. NEUROLOGICAL: No headaches, no weakness, no numbness. HEMATOLOGICAL: Denies any bleeding or petechiae. GENITOURINARY: Denies any burning micturition, frequency, or urgency. MUSCULOSKELETAL/RHEUMATOLOGICAL: Denies any joint pain, swelling, or any muscle pain. ENDOCRINE: Denies any polyuria or polydipsia. PHYSICAL EXAMINATION: GENERAL: The patient is alert and oriented x3, not in any acute distress. Well developed, well nourished. Obese HEENT: Pupils are round and equally reacting to light. EOMI. No scleral icterus. No conjunctival pallor. Normocephalic, atraumatic. No pharyngeal erythema. No thyromegaly. CARDIOVASCULAR: S1 and S2 present. No murmurs, rubs, or gallops. Lower extremity edema PULMONARY: Chest is clear to auscultation, no wheezing or crackles. ABDOMEN: Soft, nontender, nondistended, normoactive bowel sounds. No palpable organomegaly. MUSCULOSKELETAL: No joint swelling or deformity. EXTREMITIES: No cyanosis, clubbing, or pedal edema. NEUROLOGICAL: Gross neurological examination did not reveal any focal deficits. SKIN: No rashes. Past Medical History Past Medical History: Atrial Fibrillation, CVA/TIA, Diabetes Mellitus, GERD/Reflux, Hyperlipidemia, Hypertension, Sleep Apnea/CPAP/BIPAP Additional Past Medical History / Comment(s): diabetic neuropathy, "leaky valve", frequent foot & ankle swelling, USES C-PAP, shortness of breath, unable to walk distances. rhabdo History of Any Multi-Drug Resistant Organisms: None Reported Past Surgical History: Bariatric Surgery, Hernia Repair Additional Past Surgical History / Comment(s): GASTRIC SLEEVE. EGD Past Anesthesia/Blood Transfusion Reactions: No Reported Reaction, Motion Sickness Past Psychological History: Anxiety Smoking Status: Former smoker - Past Family History Mother Family Medical History: Cancer Medications and Allergies Home Medications Medication Instructions Recorded Confirmed Type Furosemide [Lasix] 40 mg PO DAILY@0600 06/27/20 05/25/23 History Omeprazole [PriLOSEC] 20 mg PO DAILY@0600 06/27/20 05/25/23 History Pioglitazone [Actos] 30 mg PO DAILY 06/27/20 05/25/23 History Rivaroxaban [Xarelto] 20 mg PO DAILY@1700 06/27/20 05/25/23 History Acetaminophen Tab [Tylenol] 650 mg PO Q6H PRN 05/25/23 05/25/23 History Atorvastatin [Lipitor] 20 mg PO HS 05/25/23 05/25/23 History Baclofen 5 mg PO TID@0600,1400,2200 05/25/23 05/25/23 History Budesonide [Pulmicort] 0.5 mg INHALATION RT-BID 05/25/23 05/25/23 History Cetirizine HCl [Zyrtec] 10 mg PO DAILY 05/25/23 05/25/23 History Cholecalciferol [Vitamin D3 (25 25 mcg PO DAILY 05/25/23 05/25/23 History Mcg = 1000 Iu)] Empagliflozin [Jardiance] 10 mg PO DAILY 05/25/23 05/25/23 History Gabapentin [Neurontin] 400 mg PO TID@0600,1400,2200 05/25/23 05/25/23 History HYDROcodone/APAP 7.5-325MG [[place] 1 tab PO Q6H PRN 05/25/23 05/25/23 History 7.5-325] Hydrophilic Cream [Triad (Kerodex 1 applic TOPICAL HS 05/25/23 05/25/23 History geq)] Hydrophilic Cream [Triad (Kerodex 1 applic TOPICAL Q12H PRN 05/25/23 05/25/23 History geq)] Insulin Degludec [Tresiba] 30 units SQ DAILY 05/25/23 05/25/23 History Insulin Lispro [humaLOG Kwikpen] See Protocol SQ QID 05/25/23 05/25/23 History Ipratropium-Albuterol Nebulize 3 ml INHALATION RT-Q6H 05/25/23 05/25/23 History [Duoneb 0.5 mg-3 mg/3 ml Soln] Metoprolol Tartrate [Lopressor] 25 mg PO BID 05/25/23 05/25/23 History Sennosides [Senokot] 8.6 mg PO BID 05/25/23 05/25/23 History Tirzepatide [Mounjaro] 7.5 mg SQ FR 05/25/23 05/25/23 History polyethylene glycoL 3350 [Miralax] 17 gm PO DAILY PRN 05/25/23 05/25/23 History Allergies Allergy/AdvReac Type Severity Reaction Status Date / Time latex Allergy Rash/Hives Verified 05/25/23 10:54 Physical Exam Vitals: Vital Signs Temp Pulse Resp BP Pulse Ox 05/25/23 14:15 98.1 F 61 18 124/72 95 05/25/23 14:00 66 16 124/72 97 05/25/23 13:49 63 18 123/78 97 05/25/23 11:41 95 05/25/23 10:05 65 18 107/79 95 05/25/23 07:54 63 20 106/65 100 05/25/23 06:15 26 H 05/25/23 05:59 97.7 F 61 26 H 121/68 100 Intake and Output 05/24/23 05/25/23 05/25/23 22:59 06:59 14:59 Other: Weight 204.117 kg Results CBC & Chem 7: 05/25/23 07:52 05/25/23 07:52 Labs: Abnormal Lab Results - Last 24 Hours (Table) 05/25/23 05/25/23 05/25/23 Range/Units 07:52 07:52 07:52 RBC 4.14 L (4.30-5.90) m/uL Hgb 10.1 L (13.0-17.5) gm/dL Hct 33.8 L (39.0-53.0) % MCH 24.3 L (25.0-35.0) pg MCHC 29.7 L (31.0-37.0) g/dL RDW 16.9 H (11.5-15.5) % BUN 23 H (9-20) mg/dL Glucose 134 H (74-99) mg/dL POC Glucose (mg/dL) (70-110) mg/dL Albumin 3.4 L (3.5-5.0) g/dL Urine Glucose (UA) 4+ H (Negative) Urine WBC 10 H (0-5) /hpf Ur Squamous Epith Cells 10 H (0-4) /hpf Urine Bacteria Occasional H (None) /hpf 05/25/23 Range/Units 12:04 RBC (4.30-5.90) m/uL Hgb (13.0-17.5) gm/dL Hct (39.0-53.0) % MCH (25.0-35.0) pg MCHC (31.0-37.0) g/dL RDW (11.5-15.5) % BUN (9-20) mg/dL Glucose (74-99) mg/dL POC Glucose (mg/dL) 130 H (70-110) mg/dL Albumin (3.5-5.0) g/dL Urine Glucose (UA) (Negative) Urine WBC (0-5) /hpf Ur Squamous Epith Cells (0-4) /hpf Urine Bacteria (None) /hpf Assessment and Plan Assessment: Assessment and plan Acute on chronic congestive heart failure diastolic dysfunction Coronary artery disease Chronic atrial fibrillation Morbid obesity *Sleep apnea Diabetes mellitus type 2 Hypertension Hyperlipidemia * In regards to congestive heart failure, cardiology consulted. Continue patient on Lasix 40 mg twice a day, continue metoprolol, continue to monitor intake and output and daily weight * In regards to chronic atrial fib, continue metoprolol continues a lot of * In regards to diabetes mellitus Accu-Cheks before meals at bedtime continue patient on correctional insulin and Lantus monitor for hypoglycemia * In regards to hyperlipidemia continue patient on Lipitor * CODE STATUS is full code
[2023-05-25 16:44] LABS: Glucose,Whole Blood 127 mg/dL (70-110)
[2023-05-25] MEDS ORDERED: RIVAROXABAN 20 MG TAB PO SCH (17:00)
[2023-05-25] MEDS: INSULIN ASPART (NovoLOG) 100 UNIT/ML VIAL SQ SCH ×2 (17:04→21:49)
[2023-05-25] MEDS: CHOLECALCIFEROL 25 MCG (1000 IU) TABLET PO SCH (17:21)
[2023-05-25] MEDS: SODIUM CHLORIDE 0.9% 1,000 ML IV SCH (17:21)
[2023-05-25] MEDS: LORATADINE 10 MG TAB PO SCH (17:21)
[2023-05-25] MEDS: HYDROcodone/APAP 7.5-325MG 1 EACH TAB PO PRN (17:42)
[2023-05-25 19:57] LABS: Glucose,Whole Blood 172 mg/dL (70-110)
[2023-05-25] MEDS ORDERED: ATORVASTATIN 20 MG TAB PO SCH (21:00)
[2023-05-25] MEDS: IPRATROPIUM-ALBUTEROL 3 ML NEB INHALATION SCH (21:10)
[2023-05-25] MEDS: BUDESONIDE 0.5 MG/2 ML NEBU INHALATION SCH (21:10)
[2023-05-25] MEDS: FUROSEMIDE 10 MG/ML 4 ML VIAL IV SCH (21:48)
[2023-05-25] MEDS: GABAPENTIN 400 MG CAP PO SCH (21:49)
[2023-05-25] MEDS: METOPROLOL TARTRATE 25 MG TAB PO SCH (21:49)
[2023-05-25] MEDS: BACLOFEN 10 MG TAB PO SCH (21:49)
[2023-05-26] MEDS: IPRATROPIUM-ALBUTEROL 3 ML NEB INHALATION SCH ×3 (01:31→15:02)
[2023-05-26] MEDS ORDERED: PANTOPRAZOLE 40 MG TABLET PO SCH (06:00)
[2023-05-26 06:03] LABS: Glucose,Whole Blood 143 mg/dL (70-110)
[2023-05-26] MEDS: INSULIN ASPART (NovoLOG) 100 UNIT/ML VIAL SQ SCH ×2 (06:34→12:05)
[2023-05-26] MEDS: BACLOFEN 10 MG TAB PO SCH ×2 (06:38→13:52)
[2023-05-26] MEDS: GABAPENTIN 400 MG CAP PO SCH ×2 (06:39→13:52)
[2023-05-26] MEDS ORDERED: INSULIN DETEMIR (LEVEMIR) 100 UNIT/ML SYR SQ SCH (07:00)
[2023-05-26] MEDS ORDERED: DAPAGLIFLOZIN PROPANEDIOL 5 MG TABLET PO SCH (09:00)
[2023-05-26 09:12] LABS: African American GFR (CKD) >90 (>60 ml/min/1.73 sqM); Anion Gap 10 mmol/L; Blood Urea Nitrogen 19 mg/dL (9-20); Calcium 8.4 mg/dL (8.4-10.2); Carbon Dioxide 27 mmol/L (22-30); Chloride 101 mmol/L (98-107); Glucose 181 mg/dL (74-99); Non-African American GFR(CKD) >90 (>60 ml/min/1.73 sqM); Potassium 4.6 mmol/L (3.5-5.1); Sodium 138 mmol/L (137-145)
[2023-05-26 09:20] LABS: NT-Pro-B-Type Natriuretic Pept 1530 pg/mL
[2023-05-26 09:35] LABS: Anisocytosis Slight; Basophils % (A) 0 %; Eosinophils # (A) 0.2 k/uL (0-0.7); Eosinophils % (A) 4 %; HCT 34.7 % (39.0-53.0); HGB 10.1 gm/dL (13.0-17.5); Hypochromasia Marked; Lymphocytes # (A) 1.7 k/uL (1.0-4.8); Lymphocytes % (A) 28 %; MCH 24.2 pg (25.0-35.0); MCV 83.4 fL (80.0-100.0); Monocytes # (A) 0.5 k/uL (0-1.0); Monocytes % (A) 8 %; Neutrophils # (A) 3.5 k/uL (1.3-7.7); Neutrophils % (A) 58 %; Platelet Count 311 k/uL (150-450); RBC 4.17 m/uL (4.30-5.90); RDW 16.5 % (11.5-15.5); WBC 6.1 k/uL (3.8-10.6)
[2023-05-26] MEDS: LIDOCAINE 5% PATCH TOPICAL SCH (09:49)
[2023-05-26] MEDS: HYDROcodone/APAP 7.5-325MG 1 EACH TAB PO PRN (09:54)
[2023-05-26] MEDS: CHOLECALCIFEROL 25 MCG (1000 IU) TABLET PO SCH (09:54)
[2023-05-26] MEDS: LORATADINE 10 MG TAB PO SCH (09:56)
[2023-05-26] MEDS: METOPROLOL TARTRATE 25 MG TAB PO SCH (09:56)
[2023-05-26] MEDS: FUROSEMIDE 10 MG/ML 4 ML VIAL IV SCH (10:00)
[2023-05-26] MEDS: BUDESONIDE 0.5 MG/2 ML NEBU INHALATION SCH (10:01)
[2023-05-26 11:41] LABS: Glucose,Whole Blood 235 mg/dL (70-110)
--- NOTE | 2023-05-26 11:49 | P.PN ---
Subjective Progress Note Date: 05/26/23 * 62-year-old patient with past medical history of coronary artery disease morbid obesity atrial fibrillation hyperlipidemia hypertension diabetes mellitus chronic congestive heart failure diastolic dysfunction presents to the emergency department because of complaints of shortness of breath patient was admitted an outside rehab facility treated for rhabdomyolysis patient says he's been having dry cough and not feeling well. He denied fever nausea vomiting chest pain palpitations abdominal pain denies any recent sick contacts * Workup in ER included CBC which showed WBC count of 8.2 hemoglobin 10.1 p latelet of 335 PT INR 10.9 and 1 * Serum chemistry sodium 140 potassium 4.3 chloride 104 BU and 20 creatinine 0.8 albumin 3.4 patient tested negative for influenza and Covid and RSV * EKG obtained in ER showed atrial fibrillation with controlled ventricular response * Chest x-ray obtained in ER showed low lung volumes * ProBNP 3480> 1530 * 05/25/24: Patient seen and evaluated bedside, patient alert and oriented times x 4. Patient states lower extremity edema has improved. We will continue patient on Lasix 40 mg IV twice a day. Continue patient on current cardiac regimen follow-up on renal profile continue to monitor vitals. Appreciate input from cardiology BNP trending down Objective - Vital Signs Vital signs: Vital Signs Temp 98.7 F 05/26/23 09:00 Pulse 64 05/26/23 09:00 Resp 15 05/26/23 09:00 BP 123/66 05/26/23 09:00 Pulse Ox 98 05/26/23 09:00 FiO2 Intake & Output 05/25/23 05/26/23 05/26/23 18:59 06:59 18:59 Intake Total 240 Output Total 1300 1675 Balance -1060 -1675 Weight 218.632 kg 203 kg Intake: Oral 240 Output: Urine 1300 1675 Other: Voiding Method Urinal Urinal Urinal # Voids 1 - Exam PHYSICAL EXAMINATION: GENERAL: The patient is alert and oriented x3, not in any acute distress. Well developed, well nourished. Obese HEENT: Pupils are round and equally reacting to light. EOMI. No scleral icterus. No conjunctival pallor. Normocephalic, atraumatic. No pharyngeal erythema. No thyromegaly. CARDIOVASCULAR: S1 and S2 present. No murmurs, rubs, or gallops. Lower extremity edema PULMONARY: Chest is clear to auscultation, no wheezing or crackles. ABDOMEN: Soft, nontender, nondistended, normoactive bowel sounds. No palpable organomegaly. MUSCULOSKELETAL: No joint swelling or deformity. EXTREMITIES: No cyanosis, clubbing, or pedal edema. NEUROLOGICAL: Gross neurological examination did not reveal any focal deficits. SKIN: No rashes. - Labs CBC & Chem 7: 05/26/23 07:39 05/26/23 07:39 Labs: Abnormal Lab Results - Last 24 Hours (Table) 05/25/23 05/25/23 05/25/23 Range/Units 07:52 12:04 16:42 RBC (4.30-5.90) m/uL Hgb (13.0-17.5) gm/dL Hct (39.0-53.0) % MCH (25.0-35.0) pg MCHC (31.0-37.0) g/dL RDW (11.5-15.5) % Glucose (74-99) mg/dL POC Glucose (mg/dL) 130 H 127 H (70-110) mg/dL Urine Glucose (UA) 4+ H (Negative) Urine WBC 10 H (0-5) /hpf Ur Squamous Epith Cells 10 H (0-4) /hpf Urine Bacteria Occasional H (None) /hpf 05/25/23 05/26/23 05/26/23 Range/Units 19:54 06:01 07:39 RBC 4.17 L (4.30-5.90) m/uL Hgb 10.1 L (13.0-17.5) gm/dL Hct 34.7 L (39.0-53.0) % MCH 24.2 L (25.0-35.0) pg MCHC 29.0 L (31.0-37.0) g/dL RDW 16.5 H (11.5-15.5) % Glucose (74-99) mg/dL POC Glucose (mg/dL) 172 H 143 H (70-110) mg/dL Urine Glucose (UA) (Negative) Urine WBC (0-5) /hpf Ur Squamous Epith Cells (0-4) /hpf Urine Bacteria (None) /hpf 05/26/23 05/26/23 Range/Units 07:39 11:30 RBC (4.30-5.90) m/uL Hgb (13.0-17.5) gm/dL Hct (39.0-53.0) % MCH (25.0-35.0) pg MCHC (31.0-37.0) g/dL RDW (11.5-15.5) % Glucose 181 H (74-99) mg/dL POC Glucose (mg/dL) 235 H (70-110) mg/dL Urine Glucose (UA) (Negative) Urine WBC (0-5) /hpf Ur Squamous Epith Cells (0-4) /hpf Urine Bacteria (None) /hpf Assessment and Plan Assessment: Assessment and plan Acute on chronic congestive heart failure diastolic dysfunction Coronary artery disease Chronic atrial fibrillation Morbid obesity *Sleep apnea Diabetes mellitus type 2 Hypertension Hyperlipidemia * In regards to congestive heart failure, cardiology consulted. Continue patient on Lasix 40 mg IV twice a day, continue metoprolol, continue to monitor intake and output and daily weight * In regards to chronic atrial fib, continue metoprolol , xarelto * In regards to diabetes mellitus Accu-Cheks before meals at bedtime continue patient on correctional insulin and Lantus monitor for hypoglycemia * In regards to hyperlipidemia continue patient on Lipitor * In regards to sleep apnea continue CPAP * CODE STATUS is full code
[2023-05-26 11:58] VITALS: BP 107/65; PULSE 68; TEMP 97.9
--- NOTE | 2023-05-26 13:13 | P.PN ---
Subjective Progress Note Date: 05/26/23 History of present illness: This is a 62-year-old male patient of Dr. Gloria Vu with past medical history of coronary artery disease, atrial fibrillation, morbid obesity, hypertension, hyperlipidemia, diabetes, diastolic heart failure. We have been asked to evaluate the patient for heart failure. Patient was last seen in the office in January 2022. Patient states that it started with pain in the left side of his abdomen and it caused his difficulty in breathing, worse despite using his CPAP. He states he was last hospitalized 10-12 years ago for heart failure. He states he recently lost 6 gallons of fluid and found he had diuresed to have quickly and was at [facility] for electrolyte abnormalities. Patient is status post IV Lasix 40 mg 1. EKG atrial fibrillation with controlled rate Chest x-ray:low lung volumes with generalized hazy appearance which could represent atelectasis versus pulmonary edema correlate her serum BNP. WBC 8.2, hemoglobin 10.1, platelet count 335. INR 1. Electrolytes normal. BUN 23 creatinine 0.82. Troponin negative 1. ProBNP 3480. Urinalysis with 4+ glucose. Influenza A, influenza B, RSV, Covid 19 expected. Home cardiac medications: atorvastatin 20 mg at bedtime, Jardiance 10 mg daily, Lasix 40 mg daily, metoprolol tartrate 25 mg twice daily, Xarelto 20 mg daily Ccardiac catheterization in 2013 revealed intermediate disease about 50% involving the ostial of the first diagonal branch. Echocardiogram performed in the office 11/11/2021 revealed normal LV size and function with EF 55%, moderate concentric left ventricular hypertrophy. Mild mitral regurgitation, mild tricuspid regurgitation PAS P 35 mmHg. Trace to mild pulmonic regurgitation. 05/26 Patient is seen today on the cardiac stepdown unit. Patient states that lower extremity edema is better. He denies having any chest pain or chest pressure. He has been maintained on Lasix 40 mg IV every 12 hours and he states he is urinating quite a bit. He also states the pain in his left abdomen has resolved. Blood pressure 107/65, heart rate 68, pulse ox 98% on 4 L nasal cannula. Hemoglobin is 10.1, creatinine 0.79. ProBNP 1530. Echocardiogram reveals Physical examination: Gen: This is a 62-year-old morbidly obese male resting on ER stretcher with head down appears to be in no acute distress. VS: reviewed HEENT: Head is atraumatic, normocephalic. Pupils equal, round. Sclerae is anicteric. NECK: Supple. No JVD. . LUNGS: Clear to auscultation. No wheezes or rhonchi. No intercostal retractions. HEART: Irregulare and rhythm. ABDOMEN: Soft EXTREMITIES: Mild edema to lower extremities. No calf tenderness. NEUROLOGICAL: Patient is awake, alert and oriented x3. Assessment: Acute on chronic diastolic heart failure History of coronary artery disease nonobstructive Permanent atrial fibrillation Morbid obesity Hypertension Hyperlipidemia Diabetes mellitus type 2 Plan Patient may be transitioned to oral Lasix Oxygen assessment Monitor I&O, daily weights, electrolytes and renal function Continue patient's home cardiac medications Patient is cleared for discharge from cardiology and may follow-up in the office in one to 2 weeks. Nurse practitioner note has been reviewed, I agree with documented findings and plan of care. Patient was seen and examined. Objective - Vital Signs Vital signs: Vital Signs Temp 98.7 F 05/26/23 09:00 Pulse 64 05/26/23 09:00 Resp 15 05/26/23 09:00 BP 123/66 05/26/23 09:00 Pulse Ox 98 05/26/23 09:00 FiO2 Intake & Output 05/25/23 05/26/23 05/26/23 18:59 06:59 18:59 Intake Total 240 Output Total 1300 1675 Balance -1060 -1675 Weight 218.632 kg 203 kg Intake: Oral 240 Output: Urine 1300 1675 Other: Voiding Method Urinal Urinal Urinal # Voids 1 - Labs CBC & Chem 7: 05/26/23 07:39 05/26/23 07:39 Labs: Abnormal Lab Results - Last 24 Hours (Table) 05/25/23 05/25/23 05/25/23 Range/Units 07:52 12:04 16:42 RBC (4.30-5.90) m/uL Hgb (13.0-17.5) gm/dL Hct (39.0-53.0) % MCH (25.0-35.0) pg MCHC (31.0-37.0) g/dL RDW (11.5-15.5) % Glucose (74-99) mg/dL POC Glucose (mg/dL) 130 H 127 H (70-110) mg/dL Urine Glucose (UA) 4+ H (Negative) Urine WBC 10 H (0-5) /hpf Ur Squamous Epith Cells 10 H (0-4) /hpf Urine Bacteria Occasional H (None) /hpf 05/25/23 05/26/23 05/26/23 Range/Units 19:54 06:01 07:39 RBC 4.17 L (4.30-5.90) m/uL Hgb 10.1 L (13.0-17.5) gm/dL Hct 34.7 L (39.0-53.0) % MCH 24.2 L (25.0-35.0) pg MCHC 29.0 L (31.0-37.0) g/dL RDW 16.5 H (11.5-15.5) % Glucose (74-99) mg/dL POC Glucose (mg/dL) 172 H 143 H (70-110) mg/dL Urine Glucose (UA) (Negative) Urine WBC (0-5) /hpf Ur Squamous Epith Cells (0-4) /hpf Urine Bacteria (None) /hpf 05/26/23 Range/Units 07:39 RBC (4.30-5.90) m/uL Hgb (13.0-17.5) gm/dL Hct (39.0-53.0) % MCH (25.0-35.0) pg MCHC (31.0-37.0) g/dL RDW (11.5-15.5) % Glucose 181 H (74-99) mg/dL POC Glucose (mg/dL) (70-110) mg/dL Urine Glucose (UA) (Negative) Urine WBC (0-5) /hpf Ur Squamous Epith Cells (0-4) /hpf Urine Bacteria (None) /hpf
--- NOTE | 2023-05-26 13:24 | P.DS ---
Providers Date of admission: 05/25/23 10:57 Expected date of discharge: 05/26/23 Attending physician: Cristian Gilliam MD Consults: 05/25/23 10:04 Consult Physician Routine Consulting Provider: Lucas Hurley Consult Reason/Comments: CHF Do you want consulting provider notified?: Yes Primary care physician: Arnold [facility] Course: * 62-year-old patient with past medical history of coronary artery disease morbid obesity atrial fibrillation hyperlipidemia hypertension diabetes mellitus chronic congestive heart failure diastolic dysfunction presents to the emergency department because of complaints of shortness of breath patient was admitted an outside rehab facility treated for rhabdomyolysis patient says he's been having dry cough and not feeling well. He denied fever nausea vomiting chest pain palpitations abdominal pain denies any recent sick contacts * Workup in ER included CBC which showed WBC count of 8.2 hemoglobin 10.1 platelet of 335 PT INR 10.9 and 1 * Serum chemistry sodium 140 potassium 4.3 chloride 104 BU and 20 creatinine 0.8 albumin 3.4 patient tested negative for influenza and Covid and RSV * EKG obtained in ER showed atrial fibrillation with controlled ventricular response * Chest x-ray obtained in ER showed low lung volumes * ProBNP 3480> 1530 * 05/26/24: Patient seen and evaluated bedside, patient alert and oriented times x 4. Patient states lower extremity edema has improved. We will continue patient on Lasix 40 mg IV twice a day. Continue patient on current cardiac regimen follow-up on renal profile continue to monitor vitals. Appreciate input from cardiology BNP trending down. Patient was seen by cardiology and cleared for discharge transition from IV Lasix to oral Lasix patient to go back to subacute rehab PHYSICAL EXAMINATION: GENERAL: The patient is alert and oriented x3, not in any acute distress. Well developed, well nourished. Obese HEENT: Pupils are round and equally reacting to light. EOMI. No scleral icterus. No conjunctival pallor. Normocephalic, atraumatic. No pharyngeal erythema. No thyromegaly. CARDIOVASCULAR: S1 and S2 present. No murmurs, rubs, or gallops. Lower extremity edema PULMONARY: Chest is clear to auscultation, no wheezing or crackles. ABDOMEN: Soft, nontender, nondistended, normoactive bowel sounds. No palpable organomegaly. MUSCULOSKELETAL: No joint swelling or deformity. EXTREMITIES: No cyanosis, clubbing, or pedal edema. NEUROLOGICAL: Gross neurological examination did not reveal any focal deficits. SKIN: No rashes. Assessment: Assessment and plan Acute on chronic congestive heart failure diastolic dysfunction Coronary artery disease Chronic atrial fibrillation Morbid obesity *Sleep apnea Diabetes mellitus type 2 Hypertension Hyperlipidemia * In regards to congestive heart failure, cardiology consulted. Continue patient on Lasix 40 mg IV twice a day, continue metoprolol, continue to monitor intake and output and daily weight, transition to oral Lasix 40 mg twice a day upon discharge * In regards to chronic atrial fib, continue metoprolol , xarelto * In regards to diabetes mellitus Accu-Cheks before meals at bedtime continue patient on correctional insulin and Lantus monitor for hypoglycemia * In regards to hyperlipidemia continue patient on Lipitor * In regards to sleep apnea continue CPAP * Discharged back to rehab facility Patient Condition at Discharge: Fair Plan - Discharge Summary Discharge Rx Participant: No New Discharge Prescriptions: Continue Pioglitazone [Actos] 30 mg PO DAILY Omeprazole [PriLOSEC] 20 mg PO DAILY@0600 Furosemide [Lasix] 40 mg PO DAILY@0600 Rivaroxaban [Xarelto] 20 mg PO DAILY@1700 Metoprolol Tartrate [Lopressor] 25 mg PO BID Hydrophilic Cream [Triad (Kerodex geq)] 1 applic TOPICAL Q12H PRN PRN Reason: WOUND CARE Sennosides [Senokot] 8.6 mg PO BID polyethylene glycoL 3350 [Miralax] 17 gm PO DAILY PRN PRN Reason: Constipation Ipratropium-Albuterol Nebulize [Duoneb 0.5 mg-3 mg/3 ml Soln] 3 ml INHALATION RT-Q6H Hydrophilic Cream [Triad (Kerodex geq)] 1 applic TOPICAL HS Cholecalciferol [Vitamin D3 (25 Mcg = 1000 Iu)] 25 mcg PO DAILY Cetirizine HCl [Zyrtec] 10 mg PO DAILY Atorvastatin [Lipitor] 20 mg PO HS Acetaminophen Tab [Tylenol] 650 mg PO Q6H PRN PRN Reason: Pain Insulin Lispro [humaLOG Kwikpen] See Protocol SQ QID Budesonide [Pulmicort] 0.5 mg INHALATION RT-BID Insulin Degludec [Tresiba] 30 units SQ DAILY Tirzepatide [Mounjaro] 7.5 mg SQ FR Empagliflozin [Jardiance] 10 mg PO DAILY Baclofen 5 mg PO TID@0600,1400,2200 3 Days #9 tab Gabapentin [Neurontin] 400 mg PO TID@0600,1400,2200 3 Days #9 cap HYDROcodone/APAP 7.5-325MG [[place] 7.5-325] 1 tab PO Q6H PRN 3 Days #12 tab PRN Reason: Pain Discharge Medication List Furosemide [Lasix] 40 mg PO DAILY@0600 06/27/20 [History] Omeprazole [PriLOSEC] 20 mg PO DAILY@0600 06/27/20 [History] Pioglitazone [Actos] 30 mg PO DAILY 06/27/20 [History] Rivaroxaban [Xarelto] 20 mg PO DAILY@1700 06/27/20 [History] Acetaminophen Tab [Tylenol] 650 mg PO Q6H PRN 05/25/23 [History] Atorvastatin [Lipitor] 20 mg PO HS 05/25/23 [History] Budesonide [Pulmicort] 0.5 mg INHALATION RT-BID 05/25/23 [History] Cetirizine HCl [Zyrtec] 10 mg PO DAILY 05/25/23 [History] Cholecalciferol [Vitamin D3 (25 Mcg = 1000 Iu)] 25 mcg PO DAILY 05/25/23 [History] Empagliflozin [Jardiance] 10 mg PO DAILY 05/25/23 [History] Hydrophilic Cream [Triad (Kerodex geq)] 1 applic TOPICAL HS 05/25/23 [History] Hydrophilic Cream [Triad (Kerodex geq)] 1 applic TOPICAL Q12H PRN 05/25/23 [History] Insulin Degludec [Tresiba] 30 units SQ DAILY 05/25/23 [History] Insulin Lispro [humaLOG Kwikpen] See Protocol SQ QID 05/25/23 [History] Ipratropium-Albuterol Nebulize [Duoneb 0.5 mg-3 mg/3 ml Soln] 3 ml INHALATION RT-Q6H 05/25/23 [History] Metoprolol Tartrate [Lopressor] 25 mg PO BID 05/25/23 [History] Sennosides [Senokot] 8.6 mg PO BID 05/25/23 [History] Tirzepatide [Mounjaro] 7.5 mg SQ FR 05/25/23 [History] polyethylene glycoL 3350 [Miralax] 17 gm PO DAILY PRN 05/25/23 [History] Baclofen 5 mg PO TID@0600,1400,2200 3 Days #9 tab 05/26/23 [Rx] Gabapentin [Neurontin] 400 mg PO TID@0600,1400,2200 3 Days #9 cap 05/26/23 [Rx] HYDROcodone/APAP 7.5-325MG [[place] 7.5-325] 1 tab PO Q6H PRN 3 Days #12 tab 05/26/23 [Rx] Follow up Appointment(s)/Referral(s): Arnold Aburto [Primary Care Provider] - 1-2 days Nathaniel Vu MD [STAFF PHYSICIAN] - 2 Weeks Discharge Disposition: TRANSFER TO SNF/ECF
--- NOTE | 2023-05-26 13:25 | P.DS ---
Providers Date of admission: 05/25/23 10:57 Expected date of discharge: 05/26/23 Attending physician: Cristian Gilliam MD Consults: 05/25/23 10:04 Consult Physician Routine Consulting Provider: Lucas Hurley Consult Reason/Comments: CHF Do you want consulting provider notified?: Yes Primary care physician: [facility] Course: * 62-year-old patient with past medical history of coronary artery disease morbid obesity atrial fibrillation hyperlipidemia hypertension diabetes mellitus chronic congestive heart failure diastolic dysfunction presents to the emergency department because of complaints of shortness of breath patient was admitted an outside rehab facility treated for rhabdomyolysis patient says he's been having dry cough and not feeling well. He denied fever nausea vomiting chest pain palpitations abdominal pain denies any recent sick contacts * Workup in ER included CBC which showed WBC count of 8.2 hemoglobin 10.1 platel et of 335 PT INR 10.9 and 1 * Serum chemistry sodium 140 potassium 4.3 chloride 104 BU and 20 creatinine 0.8 albumin 3.4 patient tested negative for influenza and Covid and RSV * EKG obtained in ER showed atrial fibrillation with controlled ventricular response * Chest x-ray obtained in ER showed low lung volumes * ProBNP 3480> 1530 * 05/26/24: Patient seen and evaluated bedside, patient alert and oriented times x 4. Patient states lower extremity edema has improved. We will continue patient on Lasix 40 mg IV twice a day. Continue patient on current cardiac regimen follow-up on renal profile continue to monitor vitals. Appreciate input from cardiology BNP trending down. Patient was seen by cardiology and cleared for discharge transition from IV Lasix to oral Lasix patient to go back to subacute rehab PHYSICAL EXAMINATION: GENERAL: The patient is alert and oriented x3, not in any acute distress. Well developed, well nourished. Obese HEENT: Pupils are round and equally reacting to light. EOMI. No scleral icterus. No conjunctival pallor. Normocephalic, atraumatic. No pharyngeal erythema. No thyromegaly. CARDIOVASCULAR: S1 and S2 present. No murmurs, rubs, or gallops. Lower extremity edema PULMONARY: Chest is clear to auscultation, no wheezing or crackles. ABDOMEN: Soft, nontender, nondistended, normoactive bowel sounds. No palpable organomegaly. MUSCULOSKELETAL: No joint swelling or deformity. EXTREMITIES: No cyanosis, clubbing, or pedal edema. NEUROLOGICAL: Gross neurological examination did not reveal any focal deficits. SKIN: No rashes. Assessment: Assessment and plan Acute on chronic congestive heart failure diastolic dysfunction Coronary artery disease Chronic atrial fibrillation Morbid obesity *Sleep apnea Diabetes mellitus type 2 Hypertension Hyperlipidemia * In regards to congestive heart failure, cardiology consulted. Continue patient on Lasix 40 mg IV twice a day, continue metoprolol, continue to monitor intake and output and daily weight, transition to oral Lasix 40 mg twice a day upon discharge * In regards to chronic atrial fib, continue metoprolol , xarelto * In regards to diabetes mellitus Accu-Cheks before meals at bedtime continue patient on correctional insulin and Lantus monitor for hypoglycemia * In regards to hyperlipidemia continue patient on Lipitor * In regards to sleep apnea continue CPAP * Discharged back to rehab facility Assessment: Assessment and plan Acute on chronic congestive heart failure diastolic dysfunction Coronary artery disease Chronic atrial fibrillation Morbid obesity *Sleep apnea Diabetes mellitus type 2 Hypertension Hyperlipidemia * In regards to congestive heart failure, cardiology consulted. Continue patient on Lasix 40 mg IV twice a day, continue metoprolol, continue to monitor intake and output and daily weight, transition to oral Lasix 40 mg twice a day upon discharge * In regards to chronic atrial fib, continue metoprolol , xarelto * In regards to diabetes mellitus Accu-Cheks before meals at bedtime continue patient on correctional insulin and Lantus monitor for hypoglycemia * In regards to hyperlipidemia continue patient on Lipitor * In regards to sleep apnea continue CPAP * Discharged back to rehab facility Patient Condition at Discharge: Fair Plan - Discharge Summary Discharge Rx Participant: No New Discharge Prescriptions: Continue Pioglitazone [Actos] 30 mg PO DAILY Omeprazole [PriLOSEC] 20 mg PO DAILY@0600 Rivaroxaban [Xarelto] 20 mg PO DAILY@1700 Metoprolol Tartrate [Lopressor] 25 mg PO BID Hydrophilic Cream [Triad (Kerodex geq)] 1 applic TOPICAL Q12H PRN PRN Reason: WOUND CARE Sennosides [Senokot] 8.6 mg PO BID polyethylene glycoL 3350 [Miralax] 17 gm PO DAILY PRN PRN Reason: Constipation Ipratropium-Albuterol Nebulize [Duoneb 0.5 mg-3 mg/3 ml Soln] 3 ml INHALATION RT-Q6H Hydrophilic Cream [Triad (Kerodex geq)] 1 applic TOPICAL HS Cholecalciferol [Vitamin D3 (25 Mcg = 1000 Iu)] 25 mcg PO DAILY Cetirizine HCl [Zyrtec] 10 mg PO DAILY Atorvastatin [Lipitor] 20 mg PO HS Acetaminophen Tab [Tylenol] 650 mg PO Q6H PRN PRN Reason: Pain Insulin Lispro [humaLOG Kwikpen] See Protocol SQ QID Budesonide [Pulmicort] 0.5 mg INHALATION RT-BID Insulin Degludec [Tresiba] 30 units SQ DAILY Tirzepatide [Mounjaro] 7.5 mg SQ FR Empagliflozin [Jardiance] 10 mg PO DAILY Baclofen 5 mg PO TID@0600,1400,2200 3 Days #9 tab Gabapentin [Neurontin] 400 mg PO TID@0600,1400,2200 3 Days #9 cap HYDROcodone/APAP 7.5-325MG [Beverly 7.5-325] 1 tab PO Q6H PRN 3 Days #12 tab PRN Reason: Pain Changed Furosemide [Lasix] 40 mg PO BID 30 Days #60 Discharge Medication List Omeprazole [PriLOSEC] 20 mg PO DAILY@0600 06/27/20 [History] Pioglitazone [Actos] 30 mg PO DAILY 06/27/20 [History] Rivaroxaban [Xarelto] 20 mg PO DAILY@1700 06/27/20 [History] Acetaminophen Tab [Tylenol] 650 mg PO Q6H PRN 05/25/23 [History] Atorvastatin [Lipitor] 20 mg PO HS 05/25/23 [History] Budesonide [Pulmicort] 0.5 mg INHALATION RT-BID 05/25/23 [History] Cetirizine HCl [Zyrtec] 10 mg PO DAILY 05/25/23 [History] Cholecalciferol [Vitamin D3 (25 Mcg = 1000 Iu)] 25 mcg PO DAILY 05/25/23 [History] Empagliflozin [Jardiance] 10 mg PO DAILY 05/25/23 [History] Hydrophilic Cream [Triad (Kerodex geq)] 1 applic TOPICAL HS 05/25/23 [History] Hydrophilic Cream [Triad (Kerodex geq)] 1 applic TOPICAL Q12H PRN 05/25/23 [History] Insulin Degludec [Tresiba] 30 units SQ DAILY 05/25/23 [History] Insulin Lispro [humaLOG Kwikpen] See Protocol SQ QID 05/25/23 [History] Ipratropium-Albuterol Nebulize [Duoneb 0.5 mg-3 mg/3 ml Soln] 3 ml INHALATION RT-Q6H 05/25/23 [History] Metoprolol Tartrate [Lopressor] 25 mg PO BID 05/25/23 [History] Sennosides [Senokot] 8.6 mg PO BID 05/25/23 [History] Tirzepatide [Mounjaro] 7.5 mg SQ FR 05/25/23 [History] polyethylene glycoL 3350 [Miralax] 17 gm PO DAILY PRN 05/25/23 [History] Baclofen 5 mg PO TID@0600,1400,2200 3 Days #9 tab 05/26/23 [Rx] Furosemide [Lasix] 40 mg PO BID 30 Days #60 05/26/23 [Rx] Gabapentin [Neurontin] 400 mg PO TID@0600,1400,2200 3 Days #9 cap 05/26/23 [Rx] HYDROcodone/APAP 7.5-325MG [Beverly 7.5-325] 1 tab PO Q6H PRN 3 Days #12 tab 05/26/23 [Rx] Follow up Appointment(s)/Referral(s): Arnold Aburto [Primary Care Provider] - 1-2 days Nathaniel Vu MD [STAFF PHYSICIAN] - 2 Weeks Discharge Disposition: TRANSFER TO SNF/ECF
[2023-05-26 13:39] VITALS: RESP 18
[2023-05-26] MEDS: SODIUM CHLORIDE 0.9% 1,000 ML IV SCH (13:54)
[2023-05-26 13:59] VITALS: BMI 64.2
--- NOTE | 2023-05-26 22:05 | CA ---
Transthoracic Echo Report Name: Dale Baird Age: 62 Gender: M : 1960 Exam Date: 05/26/2023 08:34 Exam Location: [facility] Ht (in): 70 Wt (lb): 450 Ordering Physician: Luba Hyman Attending/Referring Phys: [id number], [employer] [place] Procedure CPT: Indications: LVF Cardiac Hx: Technical Quality: Technically difficult study Contrast 1: Lumason Total Dose (mL): 5 Contrast 2: Total Dose (mL): MEASUREMENTS (Male / Female) Normal Values 2D ECHO LV Diastolic Diameter PLAX 4.8 cm 4.2 - 5.9 / 3.9 - 5.3 cm LV Systolic Diameter PLAX 3.7 cm IVS Diastolic Thickness 1.1 cm 0.6 - 1.0 / 0.6 - 0.9 cm LVPW Diastolic Thickness 1.0 cm 0.6 - 1.0 / 0.6 - 0.9 cm LV Relative Wall Thickness 0.4 RV Internal Dim ED PLAX 3.1 cm LVOT Diameter 2.2 cm Aortic Root Diameter 3.1 cm LA Systolic Diameter LX 3.7 cm 3.0 - 4.0 / 2.7 - 3.8 cm LV Diastolic Volume MOD BP 70.4 cm??? 67 - 155 / 56 - 104 cm??? LV Systolic Volume MOD BP 31.5 cm??? 22 - 58 / 19 - 49 cm??? LV Ejection Fraction MOD BP 55.2 % >= 55 % LV Cardiac Index MOD BP 1024.5 cm???/min???m??? LV Diastolic Volume MOD 4C 76.9 cm??? LV Systolic Volume MOD 4C 27.1 cm??? LV Ejection Fraction MOD 4C 64.8 % LV Cardiac Index MOD 4C 1311.6 cm???/min???m??? LV Diastolic Length 4C 6.7 cm LV Systolic Length 4C 6.0 cm LV Diastolic Volume MOD 2C 64.7 cm??? LV Systolic Volume MOD 2C 35.5 cm??? LV Ejection Fraction MOD 2C 45.0 % LV Cardiac Index MOD 2C 766.8 cm???/min???m??? LV Diastolic Length 2C 6.7 cm LV Systolic Length 2C 5.8 cm LA Volume 68.6 cm??? 18 - 58 / 22 - 52 cm??? LA Volume Index 20.7 cm???/m??? 16 - 28 cm???/m??? DOPPLER AV Peak Velocity 164.5 cm/s AV Peak Gradient 10.8 mmHg LVOT Peak Velocity 100.5 cm/s LVOT Peak Gradient 4.0 mmHg LVOT Velocity Time Integral 19.4 cm LVOT Stroke Volume 74.9 cm??? LVOT Stroke Volume Index 25.4 ml/m??? LVOT Cardiac Index 1972.5 cm???/min???m??? AV Area Cont Eq pk 2.4 cm??? MV Peak Velocity 159.4 cm/s MV Peak Gradient 10.2 mmHg MV Mean Velocity 63.3 cm/s MV Mean Gradient 2.3 mmHg MV Velocity Time Integral 35.1 cm MR Peak Velocity 433.0 cm/s MR Peak Gradient 75.0 mmHg TR Peak Velocity 255.3 cm/s TR Peak Gradient 26.1 mmHg Right Ventricular Systolic Press 31.1 mmHg PV Peak Velocity 112.3 cm/s PV Peak Gradient 5.0 mmHg FINDINGS Left Ventricle Normal LV size and wall thickness. Left ventricular ejection fraction is estimated at 55-60 %. No obvious regional wall motion abnormality Right Ventricle Normal right ventricular size. RVSP = 31mmHg. Right Atrium Normal right atrial size. Left Atrium Normal left atrial size. LA volume index= 23ml/m2 Mitral Valve Structurally normal mitral valve. Trace MR. Aortic Valve AV appears trileaflet though not well visualized. No aortic valve stenosis or regurgitation. Tricuspid Valve Tricuspid valve not well visualized. Mild TR. Pulmonic Valve Pulmonic valve not well visualized. No pulmonic regurgitation. Pericardium Not well visualized. Aorta Normal size aortic root and proximal ascending aorta. CONCLUSIONS Technically difficult study. Left ventricular ejection fraction is estimated at 55-60 %. No obvious regional wall motion abnormality. No significant valvular dysfunction Patient appears to be in atrial fibrillation during the study No pericardial effusion Previewed by: Dr Broderick Hardin (Electronically Signed) Final Date: 26 May 2023 22:04
== END 2023-05-26 16:02 | DRG 291 ==
LOC: EC 05:58 → 3SCARD 10:57
PROVIDERS: ADMIT Internal Medicine; ATTEND Internal Medicine
DX: I11.0 Hypertensive heart disease with heart failure (principal); I50.33 Acute on chronic diastolic (congestive) heart failure; I48.21 Permanent atrial fibrillation; Z68.44 Body mass index [BMI] 60.0-69.9, adult; I25.10 Atherosclerotic heart disease of native coronary artery without angina pectoris; E66.01 Morbid (severe) obesity due to excess calories; G47.30 Sleep apnea, unspecified; F41.9 Anxiety disorder, unspecified; E78.5 Hyperlipidemia, unspecified; I08.1 Rheumatic disorders of both mitral and tricuspid valves; E11.40 Type 2 diabetes mellitus with diabetic neuropathy, unspecified; Z20.822 Contact with and (suspected) exposure to COVID-19; Z79.01 Long term (current) use of anticoagulants; Z79.4 Long term (current) use of insulin; Z79.84 Long term (current) use of oral hypoglycemic drugs; Z79.899 Other long term (current) drug therapy; Z91.040 Latex allergy status
CPT/HCPCS: 36415; 71045; 80048; 80053; 81001; 83036; 83735; 83880; 84484; 85025; 85610; 85730; 87636; 93005; 93306; 94640; 94660; 94760; 96374; 99285

== ENCOUNTER 2023-07-20 16:32 | Emergency (ER) | payer MEDICARE, OTHER ==
[2023-07-20 16:50] VITALS: BP 133/73; PULSE 76; RESP 20; TEMP 98
--- NOTE | 2023-07-20 18:11 | ED ---
General Adult HPI - General Chief complaint: Skin/Abscess/Foreign Body Stated complaint: Abscess Time Seen by Provider: 07/20/23 17:51 Source: patient, EMS, RN notes reviewed, old records reviewed Mode of arrival: EMS Limitations: physical limitation - History of Present Illness Initial comments: 62-year-old male presenting for evaluation of right lower extremity ulceration and erythema. Patient has had chronic wound on the top of his foot and his anterior barba for approximately one month. No fever. No systemic symptoms. He completed a course of oral antibiotics and was recommended by his primary care provider to start antibiotics again and have an evaluation this . The wound care nurse have recommended the patient come to the emergency department so the patient did follow this request but does not actually want to be here. - Related Data Home Medications Medication Instructions Recorded Confirmed Omeprazole [PriLOSEC] 20 mg PO DAILY@0600 06/27/20 05/25/23 Pioglitazone [Actos] 30 mg PO DAILY 06/27/20 05/25/23 Rivaroxaban [Xarelto] 20 mg PO DAILY@1700 06/27/20 05/25/23 Acetaminophen Tab [Tylenol] 650 mg PO Q6H PRN 05/25/23 05/25/23 Atorvastatin [Lipitor] 20 mg PO HS 05/25/23 05/25/23 Budesonide [Pulmicort] 0.5 mg INHALATION RT-BID 05/25/23 05/25/23 Cetirizine HCl [Zyrtec] 10 mg PO DAILY 05/25/23 05/25/23 Cholecalciferol [Vitamin D3 (25 25 mcg PO DAILY 05/25/23 05/25/23 Mcg = 1000 Iu)] Empagliflozin [Jardiance] 10 mg PO DAILY 05/25/23 05/25/23 Hydrophilic Cream [Triad (Kerodex 1 applic TOPICAL HS 05/25/23 05/25/23 geq)] Hydrophilic Cream [Triad (Kerodex 1 applic TOPICAL Q12H PRN 05/25/23 05/25/23 geq)] Insulin Degludec [Tresiba] 30 units SQ DAILY 05/25/23 05/25/23 Insulin Lispro [humaLOG Kwikpen] See Protocol SQ QID 05/25/23 05/25/23 Ipratropium-Albuterol Nebulize 3 ml INHALATION RT-Q6H 05/25/23 05/25/23 [Duoneb 0.5 mg-3 mg/3 ml Soln] Metoprolol Tartrate [Lopressor] 25 mg PO BID 05/25/23 05/25/23 Sennosides [Senokot] 8.6 mg PO BID 05/25/23 05/25/23 Tirzepatide [Mounjaro] 7.5 mg SQ FR 05/25/23 05/25/23 polyethylene glycoL 3350 [Miralax] 17 gm PO DAILY PRN 05/25/23 05/25/23 Previous Rx's Medication Instructions Recorded Baclofen 5 mg PO TID@0600,1400,2200 3 Days 05/26/23 #9 tab Furosemide [Lasix] 40 mg PO BID 30 Days #60 05/26/23 Gabapentin [Neurontin] 400 mg PO TID@0600,1400,2200 3 05/26/23 Days #9 cap HYDROcodone/APAP 7.5-325MG [Offerman 1 tab PO Q6H PRN 3 Days #12 tab 05/26/23 7.5-325] Allergies Allergy/AdvReac Type Severity Reaction Status Date / Time latex Allergy Rash/Hives Verified 05/25/23 10:54 Review of Systems ROS Statement: Those systems with pertinent positive or pertinent negative responses have been documented in the HPI. ROS Other: All systems not noted in ROS Statement are negative. Past Medical History Past Medical History: Atrial Fibrillation, CVA/TIA, Diabetes Mellitus, GERD/Reflux, Hyperlipidemia, Hypertension, Sleep Apnea/CPAP/BIPAP Additional Past Medical History / Comment(s): diabetic neuropathy, "leaky valve", frequent foot & ankle swelling, USES C-PAP, shortness of breath, unable to walk distances. rhabdo History of Any Multi-Drug Resistant Organisms: None Reported Past Surgical History: Bariatric Surgery, Hernia Repair Additional Past Surgical History / Comment(s): GASTRIC SLEEVE. EGD Past Anesthesia/Blood Transfusion Reactions: No Reported Reaction, Motion Sickness Past Psychological History: Anxiety Smoking Status: Former smoker Past Alcohol Use History: None Reported Past Drug Use History: None Reported - Past Family History Mother Family Medical History: Cancer General Exam Limitations: physical limitation General appearance: alert, in no apparent distress Head exam: Present: atraumatic, normocephalic Eye exam: Present: normal appearance, PERRL Respiratory exam: Present: normal lung sounds bilaterally. Absent: respiratory distress, wheezes Cardiovascular Exam: Present: regular rate, normal rhythm GI/Abdominal exam: Present: soft. Absent: distended, tenderness Extremities exam: Present: other (Ulceration to the dorsum of the foot and anterior barba with surrounding erythema) Neurological exam: Present: alert, oriented X3, CN II-XII intact. Absent: motor sensory deficit Course Vital Signs 07/20/23 16:33 Temperature 98.0 F Pulse Rate 76 Respiratory 20 Rate Blood Pressure 133/73 O2 Sat by Pulse 97 Oximetry Medical Decision Making - Medical Decision Making Was pt. sent in by a medical professional or institution (, HERNAN, BEVERAGE SPECIALIST, urgent care, hospital, or longterm...) When possible be specific @ -[Sent in by home care nurse Did you speak to anyone other than the patient for history (EMS, parent, family, police, friend...)? What history was obtained from this source @ -No Did you review nursing and triage notes (agree or disagree)? Why? @ -I reviewed and agree with nursing and triage notes Were old charts reviewed (outside hosp., previous admission, EMS record, old EKG, old radiological studies, urgent care reports/EKG's, longterm records)? Report findings @ -No old charts were reviewed Differential Diagnosis (chest pain, altered mental status, abdominal pain women, abdominal pain men, vaginal bleeding, weakness, fever, dyspnea, syncope, headache, dizziness, GI bleed, back pain, seizure, CVA, palpatations, mental health, musculoskeletal)? @ -Diabetic ulcer, abscess, cellulitis, sepsis EKG interpreted by me (3pts min.). @ -As above X-rays interpreted by me (1pt min.). @ -None done CT interpreted by me (1pt min.). @ -None done U/S interpreted by me (1pt. min.). @ -None done What testing was considered but not performed or refused? (CT, X-rays, U/S, labs)? Why? @ -None What meds were considered but not given or refused? Why? @ -None Did you discuss the management of the patient with other professionals (professionals i.e. , HERNAN, BEVERAGE SPECIALIST, lab, RT, psych nurse, social worker psychiatric, engineering mechanic, teacher, corporate responsibility officer, case preparer and liner)? Give summary @ -No Was smoking cessation discussed for >3mins.? @ -No Was critical care preformed (if so, how long)? @ -No Were there social determinants of health that impacted care today? How? (Homelessness, low income, unemployed, alcoholism, drug addiction, transportation, low edu. Level, literacy, decrease access to med. care, usp, rehab)? @ -No Was there de-escalation of care discussed even if they declined (Discuss DNR or withdrawal of care, Hospice)? DNR status @ -No What co-morbidities impacted this encounter? (DM, HTN, Smoking, COPD, CAD, Cancer, CVA, ARF, Chemo, Hep., AIDS, mental health diagnosis, sleep apnea, morbid obesity)? @ -Diabetes, chronic wound Was patient admitted / discharged? Hospital course, mention meds given and route, prescriptions, significant lab abnormalities, going to OR and other pertinent info. @ -62-year-old male sent in for IV antibiotics for chronic wound. I did plan to initiate IV antibiotics, and do full workup including laboratory testing and blood cultures, wound cultures. Patient states that he feels completely fine an d has an appointment with his primary care provider on . He states he was prescribed oral antibiotics and would like to give this a try. He states he hasn't at the pharmacy to be picked up. He does not want any further testing or evaluation the emergency department and wishes to be discharged. I we will respect his wishes he is given strict return parameters and will follow-up with his primary care provider on . Undiagnosed new problem with uncertain prognosis? @ -No Drug Therapy requiring intensive monitoring for toxicity (Heparin, Nitro, Insulin, Cardizem)? @ -No Were any procedures done? @ -No Diagnosis/symptom? @ -Chronic wound, cellulitis Acute, or Chronic, or Acute on Chronic? @ -Acute on chronic Uncomplicated (without systemic symptoms) or Complicated (systemic symptoms)? @ -default Side effects of treatment? @ -No Exacerbation, Progression, or Severe Exacerbation? @ -No Poses a threat to life or bodily function? How? (Chest pain, USA, MD, pneumonia, PE, COPD, DKA, ARF, appy, cholecystitis, CVA, Diverticulitis, Homicidal, Suicidal, threat to staff... and all critical care pts) @ yes, sepsis Disposition Clinical Impression: Cellulitis Disposition: HOME SELF-CARE Condition: Fair Instructions (If sedation given, give patient instructions): Cellulitis (ED) Is patient prescribed a controlled substance at d/c from ED?: No Referrals: Arnold Aburto [Primary Care Provider] - 1-2 days Time of Disposition: 18:11
== END 2023-07-20 18:30 | disposition home or self-care (01) ==
LOC: EC 16:32
DX: L03.115 Cellulitis of right lower limb (principal); E11.40 Type 2 diabetes mellitus with diabetic neuropathy, unspecified; E78.5 Hyperlipidemia, unspecified; I10 Essential (primary) hypertension; I48.91 Unspecified atrial fibrillation; G47.30 Sleep apnea, unspecified; K21.9 Gastro-esophageal reflux disease without esophagitis; Z79.4 Long term (current) use of insulin; Z79.84 Long term (current) use of oral hypoglycemic drugs; Z79.01 Long term (current) use of anticoagulants; Z86.73 Personal history of transient ischemic attack (TIA), and cerebral infarction without residual deficits; Z87.891 Personal history of nicotine dependence; Z91.040 Latex allergy status
CPT/HCPCS: 99283

== ENCOUNTER 2023-07-25 08:55 | Inpatient (IN) | payer MEDICARE, OTHER ==
--- NOTE | 2023-07-25 09:22 | ED ---
General Adult HPI - General Chief complaint: Altered Mental Status Stated complaint: Altered mental status Time Seen by Provider: 07/25/23 08:57 Source: patient, EMS, RN notes reviewed Mode of arrival: EMS Limitations: altered mental status - History of Present Illness Initial comments: Patient is a drowsy 62-year-old male presenting to the emergency department by EMS. Patient presents for change in mental status. Patient is very drowsy and a poor historian. Patient is arousable to touch but still limited to providing history. Patient denies taking any medication's or overdose or thoughts of self-harm. No reported trauma. EMS did try 2 of Narcan without improvement of symptoms. - Related Data Home Medications Medication Instructions Recorded Confirmed Omeprazole [PriLOSEC] 20 mg PO DAILY@0600 06/27/20 05/25/23 Pioglitazone [Actos] 30 mg PO DAILY 06/27/20 05/25/23 Rivaroxaban [Xarelto] 20 mg PO DAILY@1700 06/27/20 05/25/23 Acetaminophen Tab [Tylenol] 650 mg PO Q6H PRN 05/25/23 05/25/23 Atorvastatin [Lipitor] 20 mg PO HS 05/25/23 05/25/23 Budesonide [Pulmicort] 0.5 mg INHALATION RT-BID 05/25/23 05/25/23 Cetirizine HCl [Zyrtec] 10 mg PO DAILY 05/25/23 05/25/23 Cholecalciferol [Vitamin D3 (25 25 mcg PO DAILY 05/25/23 05/25/23 Mcg = 1000 Iu)] Empagliflozin [Jardiance] 10 mg PO DAILY 05/25/23 05/25/23 Hydrophilic Cream [Triad (Kerodex 1 applic TOPICAL HS 05/25/23 05/25/23 geq)] Hydrophilic Cream [Triad (Kerodex 1 applic TOPICAL Q12H PRN 05/25/23 05/25/23 geq)] Insulin Degludec [Tresiba] 30 units SQ DAILY 05/25/23 05/25/23 Insulin Lispro [humaLOG Kwikpen] See Protocol SQ QID 05/25/23 05/25/23 Ipratropium-Albuterol Nebulize 3 ml INHALATION RT-Q6H 05/25/23 05/25/23 [Duoneb 0.5 mg-3 mg/3 ml Soln] Metoprolol Tartrate [Lopressor] 25 mg PO BID 05/25/23 05/25/23 Sennosides [Senokot] 8.6 mg PO BID 05/25/23 05/25/23 Tirzepatide [Mounjaro] 7.5 mg SQ FR 05/25/23 05/25/23 polyethylene glycoL 3350 [Miralax] 17 gm PO DAILY PRN 05/25/23 05/25/23 Previous Rx's Medication Instructions Recorded Baclofen 5 mg PO TID@0600,1400,2200 3 Days 05/26/23 #9 tab Furosemide [Lasix] 40 mg PO BID 30 Days #60 05/26/23 Gabapentin [Neurontin] 400 mg PO TID@0600,1400,2200 3 05/26/23 Days #9 cap HYDROcodone/APAP 7.5-325MG [Norris 1 tab PO Q6H PRN 3 Days #12 tab 05/26/23 7.5-325] Allergies Allergy/AdvReac Type Severity Reaction Status Date / Time latex Allergy Rash/Hives Verified 07/25/23 09:16 Review of Systems ROS Statement: Those systems with pertinent positive or pertinent negative responses have been documented in the HPI. ROS Other: All systems not noted in ROS Statement are negative. Limitations: ROS unobtainable due to patients medical condition Psychiatric: Denies: depression, suicidal thoughts Past Medical History Past Medical History: Atrial Fibrillation, CVA/TIA, Diabetes Mellitus, GERD/Reflux, Hyperlipidemia, Hypertension, Sleep Apnea/CPAP/BIPAP Additional Past Medical History / Comment(s): diabetic neuropathy, "leaky valve", frequent foot & ankle swelling, USES C-PAP, shortness of breath, unable to walk distances. rhabdo History of Any Multi-Drug Resistant Organisms: None Reported Past Surgical History: Bariatric Surgery, Hernia Repair Additional Past Surgical History / Comment(s): GASTRIC SLEEVE. EGD Past Anesthesia/Blood Transfusion Reactions: No Reported Reaction, Motion Sickness Past Psychological History: Anxiety Smoking Status: Former smoker Past Alcohol Use History: None Reported Past Drug Use History: None Reported - Past Family History Mother Family Medical History: Cancer General Exam Limitations: no limitations, altered mental status General appearance: other (Drowsy. Arousable to touch and answers with only one word) Head exam: Present: atraumatic Eye exam: Present: normal appearance, PERRL ENT exam: Present: normal oropharynx Neck exam: Present: normal inspection. Absent: tenderness, meningismus Respiratory exam: Present: normal lung sounds bilaterally Cardiovascular Exam: Present: regular rate, normal rhythm GI/Abdominal exam: Present: soft. Absent: tenderness Extremities exam: Present: normal inspection Neurological exam: Present: altered. Absent: motor sensory deficit Expanded Neurological exam: Present: protecting the airway Patient oriented to: Present: person, place. Absent: time Motor strength exam: RUE: 5, LUE: 5, RLE: 5, LLE: 5 Eye Response: (2) open to pain Motor Response: (6) obeys commands Verbal Response: (4) confused conversation Psychiatric exam: Present: flat affect Skin exam: Present: other (Right dorsal foot with approximately 4 x 4 centimeter ulcer with foul odor. Stage III.) Course Vital Signs 07/25/23 07/25/23 07/25/23 09:05 10:30 11:37 Temperature 97.6 F Pulse Rate 57 L 49 L 46 L Respiratory 16 18 18 Rate Blood Pressure 119/85 118/76 137/88 O2 Sat by Pulse 89 L 99 99 Oximetry 07/25/23 07/25/23 12:00 13:11 Temperature Pulse Rate 66 67 Respiratory 18 18 Rate Blood Pressure 115/67 119/92 O2 Sat by Pulse 95 96 Oximetry EKG Findings - EKG Results: EKG: interpreted by ERMD (Low QRS voltage.), normal axis, normal ST/T EKG shows: bradycardia, atrial fibrillation Medical Decision Making - Medical Decision Making Was pt. sent in by a medical professional or institution (, PA, HEAD OF RESEARCH & INSIGHTS, urgent care, hospital, or usp...) When possible be specific @ -No Did you speak to anyone other than the patient for history (EMS, parent, family, police, friend...)? What history was obtained from this source @ -EMS also right history as patient is a poor historian Did you review nursing and triage notes (agree or disagree)? Why? @ -I reviewed and agree with nursing and triage notes Were old charts reviewed (outside hosp., previous admission, EMS record, old EKG, old radiological studies, urgent care reports/EKG's, usp records)? Report findings @ -No old charts were reviewed Differential Diagnosis (chest pain, altered mental status, abdominal pain women, abdominal pain men, vaginal bleeding, weakness, fever, dyspnea, syncope, headache, dizziness, GI bleed, back pain, seizure, CVA, palpatations, mental health, musculoskeletal)? @ -Differential Altered Mental Status: Hypoglycemia, DKA, hypercapnia, ETOH, overdose, CO poisoning, trauma, myxedema coma, HTN encephalopathy, infection, encephalitis, psychosis, intercranial hemorrhage, hepatic encephalopathy, meningitis, CVA, this is not meant to be an all-inclusive list EKG interpreted by me (3pts min.). @ -As above X-rays interpreted by me (1pt min.). @ -Is x-ray shows cardiomegaly and some mild vascular congestion. X-ray right foot shows soft tissue changes. CT interpreted by me (1pt min.). @ -CT brain without obvious acute changes U/S interpreted by me (1pt. min.). @ -None done What testing was considered but not performed or refused? (CT, X-rays, U/S, labs)? Why? @ -None What meds were considered but not given or refused? Why? @ -None Did you discuss the management of the patient with other professionals (professionals i.e. , PA, HEAD OF RESEARCH [employer] INSIGHTS, lab, RT, psych nurse, social psychologist, lawyer criminal, teacher, accounts officer, block and case maker)? Give summary @ -Case was discussed with Dr. Dodson, who will admit covered Dr. Aburto. Case also discussed with Dr. Mak who will consult for foot ulcer. Was smoking cessation discussed for >3mins.? @ -No Was critical care preformed (if so, how long)? @ -No Were there social determinants of health that impacted care today? How? (Homelessness, low income, unemployed, alcoholism, drug addiction, transportation, low edu. Level, literacy, decrease access to med. care, usp, rehab)? @ -No Was there de-escalation of care discussed even if they declined (Discuss DNR or withdrawal of care, Hospice)? DNR status @ -No What co-morbidities impacted this encounter? (DM, HTN, Smoking, COPD, CAD, Cancer, CVA, ARF, Chemo, Hep., AIDS, mental health diagnosis, sleep apnea, mor bid obesity)? @ -None Was patient admitted / discharged? Hospital course, mention meds given and route, prescriptions, significant lab abnormalities, going to OR and other pertinent info. @ -Patient reevaluated and unchanged. Patient does have positive drug screen for cocaine and benzos. No improvement with Narcan. Exact etiology of altered mental status is unclear. Possibly drug-related. Patient will be admitted. Admission orders written. Undiagnosed new problem with uncertain prognosis? @ -No Drug Therapy requiring intensive monitoring for toxicity (Heparin, Nitro, Insul in, Cardizem)? @ -No Were any procedures done? @ -No Diagnosis/symptom? @ -Altered mental status, foot ulcer Acute, or Chronic, or Acute on Chronic? @ -, Acute on chronic Uncomplicated (without systemic symptoms) or Complicated (systemic symptoms)? @ -default Side effects of treatment? @ -No Exacerbation, Progression, or Severe Exacerbation? @ -No Poses a threat to life or bodily function? How? (Chest pain, [place], [place], pneumonia, PE, COPD, DKA, ARF, appy, cholecystitis, CVA, Diverticulitis, Homicidal, Suicidal, threat to staff... and all critical care pts) @ Potential threat to airway and further function if symptoms worsen - Lab Data Result diagrams: 07/25/23 09:22 07/25/23 09:22 Lab Results 07/25/23 07/25/23 07/25/23 Range/Units 09:22 09:22 09:22 WBC 8.3 (3.8-10.6) k/uL RBC 4.64 (4.30-5.90) m/uL Hgb 10.7 L (13.0-17.5) gm/dL Hct 35.2 L (39.0-53.0) % MCV 75.9 L D (80.0-100.0) fL MCH 23.1 L (25.0-35.0) pg MCHC 30.5 L (31.0-37.0) g/dL RDW 17.8 H (11.5-15.5) % Plt Count 442 (150-450) k/uL MPV 6.8 Neutrophils % 62 % Lymphocytes % 27 % Monocytes % 7 % Eosinophils % 1 % Basophils % 0 % Neutrophils # 5.1 (1.3-7.7) k/uL Lymphocytes # 2.3 (1.0-4.8) k/uL Monocytes # 0.6 (0-1.0) k/uL Eosinophils # 0.1 (0-0.7) k/uL Basophils # 0.0 (0-0.2) k/uL Hypochromasia Marked Anisocytosis Slight Microcytosis Slight PT 11.4 (10.0-12.5) sec INR 1.0 (<1.2) APTT 25.2 (22.0-30.0) sec Sample Site ABG pH (7.35-7.45) ABG pCO2 (35-45) mmHg ABG pO2 (83-108) mmHg ABG HCO3 (21-25) mmol/L ABG Total CO2 (19-24) mmol/L ABG O2 Saturation (94-97) % ABG Base Excess mmol/L Skinny Test FiO2 % Sodium (137-145) mmol/L Potassium (3.5-5.1) mmol/L Chloride (98-107) mmol/L Carbon Dioxide (22-30) mmol/L Anion Gap mmol/L BUN (9-20) mg/dL Creatinine (0.66-1.25) mg/dL Est GFR (CKD-EPI)AfAm (>60 ml/min/1.73 sqM) Est GFR (CKD-EPI)NonAf (>60 ml/min/1.73 sqM) Glucose (74-99) mg/dL POC Glucose (mg/dL) (70-110) mg/dL POC Glu Quality Assurance Nurse ID Plasma Lactic Acid Antony (0.7-2.0) mmol/L Calcium (8.4-10.2) mg/dL Total Bilirubin (0.2-1.3) mg/dL AST (17-59) U/L ALT (4-49) U/L Alkaline Phosphatase (38-126) U/L Ammonia (<30) umol/L Troponin I (0.000-0.034) ng/mL NT-Pro-B Natriuret Pep pg/mL Total Protein (6.3-8.2) g/dL Albumin (3.5-5.0) g/dL Urine Color Urine Appearance (Clear) Urine pH (5.0-8.0) Ur Specific Menan (1.001-1.035) Urine Protein (Negative) Urine Glucose (UA) (Negative) Urine Ketones (Negative) Urine Blood (Negative) Urine Nitrite (Negative) Urine Bilirubin (Negative) Urine Urobilinogen (<2.0) mg/dL Ur Leukocyte Esterase (Negative) Ur Squamous Epith Cells (0-4) /hpf Hyaline Casts (0-2) /lpf Urine Mucus (None) /hpf Salicylates mg/dL Urine Opiates Screen Not Detected (NotDetected) Ur Oxycodone Screen Not Detected (NotDetected) Urine Methadone Screen Not Detected (NotDetected) Acetaminophen ug/mL Ur Barbiturates Screen Not Detected (NotDetected) U Tricyclic Antidepress Not Detected (NotDetected) Ur Phencyclidine Scrn Not Detected (NotDetected) Ur Amphetamines Screen Not Detected (NotDetected) U Methamphetamines Scrn Not Detected (NotDetected) U Benzodiazepines Scrn Detected H (NotDetected) Urine Cocaine Screen Detected H (NotDetected) U Marijuana (THC) Screen Not Detected (NotDetected) Ur Drug Screen Comment SEE COMMENT Serum Alcohol mg/dL 07/25/23 07/25/23 07/25/23 Range/Units 09:22 09:22 09:22 WBC (3.8-10.6) k/uL RBC (4.30-5.90) m/uL Hgb (13.0-17.5) gm/dL Hct (39.0-53.0) % MCV (80.0-100.0) fL MCH (25.0-35.0) pg MCHC (31.0-37.0) g/dL RDW (11.5-15.5) % Plt Count (150-450) k/uL MPV Neutrophils % % Lymphocytes % % Monocytes % % Eosinophils % % Basophils % % Neutrophils # (1.3-7.7) k/uL Lymphocytes # (1.0-4.8) k/uL Monocytes # (0-1.0) k/uL Eosinophils # (0-0.7) k/uL Basophils # (0-0.2) k/uL Hypochromasia Anisocytosis Microcytosis PT (10.0-12.5) sec INR (<1.2) APTT (22.0-30.0) sec Sample Site ABG pH (7.35-7.45) ABG pCO2 (35-45) mmHg ABG pO2 (83-108) mmHg ABG HCO3 (21-25) mmol/L ABG Total CO2 (19-24) mmol/L ABG O2 Saturation (94-97) % ABG Base Excess mmol/L Skinny Test FiO2 % Sodium 138 (137-145) mmol/L Potassium 3.1 L (3.5-5.1) mmol/L Chloride 97 L (98-107) mmol/L Carbon Dioxide 29 (22-30) mmol/L Anion Gap 12 mmol/L BUN 27 H (9-20) mg/dL Creatinine 0.91 (0.66-1.25) mg/dL Est GFR (CKD-EPI)AfAm >90 (>60 ml/min/1.73 sqM) Est GFR (CKD-EPI)NonAf >90 (>60 ml/min/1.73 sqM) Glucose 251 H (74-99) mg/dL POC Glucose (mg/dL) (70-110) mg/dL POC Glu Quality Assurance Nurse ID Plasma Lactic Acid Antony 2.3 H* (0.7-2.0) mmol/L Calcium 8.8 (8.4-10.2) mg/dL Total Bilirubin 0.5 (0.2-1.3) mg/dL AST 29 (17-59) U/L ALT 13 (4-49) U/L Alkaline Phosphatase 92 (38-126) U/L Ammonia 26 (<30) umol/L Troponin I <0.012 (0.000-0.034) ng/mL NT-Pro-B Natriuret Pep pg/mL Total Protein 6.8 (6.3-8.2) g/dL Albumin 3.6 (3.5-5.0) g/dL Urine Color Urine Appearance (Clear) Urine pH (5.0-8.0) Ur Specific Menan (1.001-1.035) Urine Protein (Negative) Urine Glucose (UA) (Negative) Urine Ketones (Negative) Urine Blood (Negative) Urine Nitrite (Negative) Urine Bilirubin (Negative) Urine Urobilinogen (<2.0) mg/dL Ur Leukocyte Esterase (Negative) Ur Squamous Epith Cells (0-4) /hpf Hyaline Casts (0-2) /lpf Urine Mucus (None) /hpf Salicylates <1.0 mg/dL Urine Opiates Screen (NotDetected) Ur Oxycodone Screen (NotDetected) Urine Methadone Screen (NotDetected) Acetaminophen <10.0 ug/mL Ur Barbiturates Screen (NotDetected) U Tricyclic Antidepress (NotDetected) Ur Phencyclidine Scrn (NotDetected) Ur Amphetamines Screen (NotDetected) U Methamphetamines Scrn (NotDetected) U Benzodiazepines Scrn (NotDetected) Urine Cocaine Screen (NotDetected) U Marijuana (THC) Screen (NotDetected) Ur Drug Screen Comment Serum Alcohol <10 mg/dL 07/25/23 07/25/23 07/25/23 Range/Units 09:22 09:36 11:15 WBC (3.8-10.6) k/uL RBC (4.30-5.90) m/uL Hgb (13.0-17.5) gm/dL Hct (39.0-53.0) % MCV (80.0-100.0) fL MCH (25.0-35.0) pg MCHC (31.0-37.0) g/dL RDW (11.5-15.5) % Plt Count (150-450) k/uL MPV Neutrophils % % Lymphocytes % % Monocytes % % Eosinophils % % Basophils % % Neutrophils # (1.3-7.7) k/uL Lymphocytes # (1.0-4.8) k/uL Monocytes # (0-1.0) k/uL Eosinophils # (0-0.7) k/uL Basophils # (0-0.2) k/uL Hypochromasia Anisocytosis Microcytosis PT (10.0-12.5) sec INR (<1.2) APTT (22.0-30.0) sec Sample Site rrad ABG pH 7.41 (7.35-7.45) ABG pCO2 52 H (35-45) mmHg ABG pO2 106 (83-108) mmHg ABG HCO3 33 H (21-25) mmol/L ABG Total CO2 35 H (19-24) mmol/L ABG O2 Saturation 98.3 H (94-97) % ABG Base Excess 8.4 mmol/L Skinny Test Yes FiO2 32 % Sodium (137-145) mmol/L Potassium (3.5-5.1) mmol/L Chloride (98-107) mmol/L Carbon Dioxide (22-30) mmol/L Anion Gap mmol/L BUN (9-20) mg/dL Creatinine (0.66-1.25) mg/dL Est GFR (CKD-EPI)AfAm (>60 ml/min/1.73 sqM) Est GFR (CKD-EPI)NonAf (>60 ml/min/1.73 sqM) Glucose (74-99) mg/dL POC Glucose (mg/dL) (70-110) mg/dL POC Glu Quality Assurance Nurse ID Plasma Lactic Acid Antony (0.7-2.0) mmol/L Calcium (8.4-10.2) mg/dL Total Bilirubin (0.2-1.3) mg/dL AST (17-59) U/L ALT (4-49) U/L Alkaline Phosphatase (38-126) U/L Ammonia (<30) umol/L Troponin I (0.000-0.034) ng/mL NT-Pro-B Natriuret Pep 1840 pg/mL Total Protein (6.3-8.2) g/dL Albumin (3.5-5.0) g/dL Urine Color Yellow Urine Appearance Cloudy (Clear) Urine pH 5.5 (5.0-8.0) Ur Specific Menan 1.029 (1.001-1.035) Urine Protein Trace H (Negative) Urine Glucose (UA) Negative (Negative) Urine Ketones Trace H (Negative) Urine Blood Negative (Negative) Urine Nitrite Negative (Negative) Urine Bilirubin Negative (Negative) Urine Urobilinogen <2.0 (<2.0) mg/dL Ur Leukocyte Esterase Negative (Negative) Ur Squamous Epith Cells <1 (0-4) /hpf Hyaline Casts 1 (0-2) /lpf Urine Mucus Rare H (None) /hpf Salicylates mg/dL Urine Opiates Screen (NotDetected) Ur Oxycodone Screen (NotDetected) Urine Methadone Screen (NotDetected) Acetaminophen ug/mL Ur Barbiturates Screen (NotDetected) U Tricyclic Antidepress (NotDetected) Ur Phencyclidine Scrn (NotDetected) Ur Amphetamines Screen (NotDetected) U Methamphetamines Scrn (NotDetected) U Benzodiazepines Scrn (NotDetected) Urine Cocaine Screen (NotDetected) U Marijuana (THC) Screen (NotDetected) Ur Drug Screen Comment Serum Alcohol mg/dL 07/25/23 Range/Units 11:45 WBC (3.8-10.6) k/uL RBC (4.30-5.90) m/uL Hgb (13.0-17.5) gm/dL Hct (39.0-53.0) % MCV (80.0-100.0) fL MCH (25.0-35.0) pg MCHC (31.0-37.0) g/dL RDW (11.5-15.5) % Plt Count (150-450) k/uL MPV Neutrophils % % Lymphocytes % % Monocytes % % Eosinophils % % Basophils % % Neutrophils # (1.3-7.7) k/uL Lymphocytes # (1.0-4.8) k/uL Monocytes # (0-1.0) k/uL Eosinophils # (0-0.7) k/uL Basophils # (0-0.2) k/uL Hypochromasia Anisocytosis Microcytosis PT (10.0-12.5) sec INR (<1.2) APTT (22.0-30.0) sec Sample Site ABG pH (7.35-7.45) ABG pCO2 (35-45) mmHg ABG pO2 (83-108) mmHg ABG HCO3 (21-25) mmol/L ABG Total CO2 (19-24) mmol/L ABG O2 Saturation (94-97) % ABG Base Excess mmol/L Skinny Test FiO2 % Sodium (137-145) mmol/L Potassium (3.5-5.1) mmol/L Chloride (98-107) mmol/L Carbon Dioxide (22-30) mmol/L Anion Gap mmol/L BUN (9-20) mg/dL Creatinine (0.66-1.25) mg/dL Est GFR (CKD-EPI)AfAm (>60 ml/min/1.73 sqM) Est GFR (CKD-EPI)NonAf (>60 ml/min/1.73 sqM) Glucose (74-99) mg/dL POC Glucose (mg/dL) 230 H (70-110) mg/dL POC Glu Quality Assurance Nurse ID Sally Roth Plasma Lactic Acid Antony (0.7-2.0) mmol/L Calcium (8.4-10.2) mg/dL Total Bilirubin (0.2-1.3) mg/dL AST (17-59) U/L ALT (4-49) U/L Alkaline Phosphatase (38-126) U/L Ammonia (<30) umol/L Troponin I (0.000-0.034) ng/mL NT-Pro-B Natriuret Pep pg/mL Total Protein (6.3-8.2) g/dL Albumin (3.5-5.0) g/dL Urine Color Urine Appearance (Clear) Urine pH (5.0-8.0) Ur Specific Menan (1.001-1.035) Urine Protein (Negative) Urine Glucose (UA) (Negative) Urine Ketones (Negative) Urine Blood (Negative) Urine Nitrite (Negative) Urine Bilirubin (Negative) Urine Urobilinogen (<2.0) mg/dL Ur Leukocyte Esterase (Negative) Ur Squamous Epith Cells (0-4) /hpf Hyaline Casts (0-2) /lpf Urine Mucus (None) /hpf Salicylates mg/dL Urine Opiates Screen (NotDetected) Ur Oxycodone Screen (NotDetected) Urine Methadone Screen (NotDetected) Acetaminophen ug/mL Ur Barbiturates Screen (NotDetected) U Tricyclic Antidepress (NotDetected) Ur Phencyclidine Scrn (NotDetected) Ur Amphetamines Screen (NotDetected) U Methamphetamines Scrn (NotDetected) U Benzodiazepines Scrn (NotDetected) Urine Cocaine Screen (NotDetected) U Marijuana (THC) Screen (NotDetected) Ur Drug Screen Comment Serum Alcohol mg/dL Disposition Clinical Impression: Altered mental status, Foot ulcer Disposition: ADMITTED IP TO THIS HOSP Is patient prescribed a controlled substance at d/c from ED?: No Referrals: Arnold Aburto [Primary Care Provider] - 1-2 days Time of Disposition: 13:55
[2023-07-25 09:40] LABS: ABG Base Excess 8.4 mmol/L; ABG HCO3 33 mmol/L (21-25); ABG Oxygen Saturation 98.3 % (94-97); ABG PCO2 52 mmHg (35-45); ABG PH 7.41 (7.35-7.45); ABG PO2 106 mmHg (83-108); ABG TCO2 35 mmol/L (19-24); Allen Test Performed? Yes
[2023-07-25 09:46] LABS: Anisocytosis Slight; Basophils % (A) 0 %; Eosinophils # (A) 0.1 k/uL (0-0.7); Eosinophils % (A) 1 %; HCT 35.2 % (39.0-53.0); HGB 10.7 gm/dL (13.0-17.5); Hypochromasia Marked; Lymphocytes # (A) 2.3 k/uL (1.0-4.8); Lymphocytes % (A) 27 %; MCH 23.1 pg (25.0-35.0); MCHC 30.5 g/dL (31.0-37.0); Mean Platelet Volume 6.8; Microcytosis Slight; Monocytes # (A) 0.6 k/uL (0-1.0); Monocytes % (A) 7 %; Neutrophils # (A) 5.1 k/uL (1.3-7.7); Neutrophils % (A) 62 %; Platelet Count 442 k/uL (150-450); RBC 4.64 m/uL (4.30-5.90); RDW 17.8 % (11.5-15.5); WBC 8.3 k/uL (3.8-10.6)
[2023-07-25 10:02] LABS: Partial Thromboplastin Time 25.2 sec (22.0-30.0); Prothrombin Time 11.4 sec (10.0-12.5)
[2023-07-25 10:10] LABS: MCV 75.9 fL (80.0-100.0)
--- NOTE | 2023-07-25 11:01 | XR ---
EXAMINATION TYPE: XR foot limited RT DATE OF EXAM: 07/25/2023 10:42 AM CLINICAL INDICATION:Male, 62 years old with history of infection; [facility] COMPARISON: None TECHNIQUE: XR foot limited RT examined in the AP, and lateral projections. FINDINGS: No evidence of any acute osseous pathology. Mild soft tissue swelling throughout the foot without flor dence for osseous erosion. Multifocal degeneration changes throughout the foot noted. Skin thickening in the dorsal aspect of the foot and anterior distal leg noted. There is calcaneal plantar spurring. IMPRESSION: Soft tissue swelling edema of the foot without evidence of fracture. No evidence for osseous erosion.
--- NOTE | 2023-07-25 11:01 | XR ---
EXAMINATION TYPE: XR chest 2V DATE OF EXAM: 07/25/2023 10:42 AM CLINICAL INDICATION:Male, 62 years old with history of altered mental status; [facility] COMPARISON: Chest radiographs from 05/25/2023 TECHNIQUE: XR chest 2V Frontal and lateral views of the chest. FINDINGS: Lungs/Pleura: There is no evidence of pleural effusion, focal consolidation, or pneumothorax. Pulmonary vascularity: Pulmonary vascular congestion. Heart/mediastinum: Cardiomediastinal silhouette is enlarged and stable. Musculoskeletal: No acute osseous pathology. Other findings: None IMPRESSION: Cardiomegaly and mild pulmonary vascular congestion. Correlate with BNP for congestive heart failure.
--- NOTE | 2023-07-25 11:06 | CT ---
EXAMINATION TYPE: CT brain wo con CT DLP: 1242.4 mGycm, Automated exposure control for dose reduction was used. DATE OF EXAM: 07/25/2023 10:44 AM COMPARISON: None. CLINICAL INDICATION:Male, 62 years old with history of Altered mental status, TECHNIQUE: Brain: Axial CT images of the brain were obtained with coronal and sagittal reformats created and rev iewed. Contrast used: None. Oral contrast used: None. FINDINGS: Brain: Extra-axial spaces: No abnormal extra-axial fluid collections. Ventricular system: Dilatation in proportion to cerebral atrophy. Cerebral parenchyma: Cerebral atrophy. No acute intraparenchymal hemorrhage or mass effect. The montesinos -white junction is well differentiated. Scattered hypoattenuating areas are seen within the white mat ter. Cerebellum: Unremarkable. Mass effect: No evidence of midline shift. Intracranial vasculature: unremarkable Soft tissues: Normal. Calvarium/osseous structures: No depressed skull fracture. Paranasal sinuses and mastoid air cells: Mild scattered paranasal sinus disease. Visualized orbits: Orbital contents are intact. IMPRESSION: 1. No acute intracranial process. 2. Nonspecific white matter changes, likely secondary to chronic small vessel ischemic disease.
[2023-07-25 11:47] LABS: Glucose,Whole Blood 230 mg/dL (70-110)
[2023-07-25 11:51] LABS: Lactic Acid, Venous 2.3 mmol/L (0.7-2.0)
[2023-07-25 12:12] LABS: Appearance,Urine Cloudy (Clear); Bilirubin,Urine Negative (Negative); Blood,Urine Negative (Negative); Color,Urine Yellow; Glucose,Urine (UA) Negative (Negative); Hyaline Casts,Urine 1 /lpf (0-2); Ketones,Urine Trace (Negative); Leukocyte Esterase,Urine Negative (Negative); Mucus,Urine Rare /hpf; Nitrite,Urine Negative (Negative); PH, Urine 5.5 (5.0-8.0); Protein,Urine Trace (Negative); Specific Gravity,Urine 1.029 (1.001-1.035); Squamous Epithelial Cell,Urine <1 /hpf (0-4); Urobilinogen,Urine <2.0 mg/dL (<2.0)
[2023-07-25 12:22] LABS: Amphetamine Screen,Urine Not Detected (NotDetected); Barbiturate Screen,Urine Not Detected (NotDetected); Benzodiazepines Screen,Urine Detected (NotDetected); Cocaine Screen,Urine Detected (NotDetected); Methadone Screen, Urine Not Detected (NotDetected); Opiate Screen,Urine Not Detected (NotDetected); Oxycodone Screen, Urine Not Detected (NotDetected); Phencyclidine Screen,Urine Not Detected (NotDetected); Tricyclic Antidepressant,Urine Not Detected (NotDetected); Urn Cannabinoid Scrn Not Detected (NotDetected)
[2023-07-25 12:39] LABS: ALT 13 U/L (4-49); AST 29 U/L (17-59); Acetaminophen <10.0 ug/mL; African American GFR (CKD) >90 (>60 ml/min/1.73 sqM); Albumin 3.6 g/dL (3.5-5.0); Alcohol <10 mg/dL; Alkaline Phosphatase 92 U/L (38-126); Anion Gap 12 mmol/L; Blood Urea Nitrogen 27 mg/dL (9-20); Calcium 8.8 mg/dL (8.4-10.2); Carbon Dioxide 29 mmol/L (22-30); Chloride 97 mmol/L (98-107); Glucose 251 mg/dL (74-99); Non-African American GFR(CKD) >90 (>60 ml/min/1.73 sqM); Potassium 3.1 mmol/L (3.5-5.1); Salicylate <1.0 mg/dL; Sodium 138 mmol/L (137-145); Total Bilirubin 0.5 mg/dL (0.2-1.3); Total Protein 6.8 g/dL (6.3-8.2)
[2023-07-25] MEDS ORDERED: NALOXONE 0.4 MG/ML 1 ML VIAL IV PRN (13:56)
[2023-07-25] MEDS: SODIUM CHLORIDE 0.9% 1,000 ML IV SCH (14:11)
--- NOTE | 2023-07-25 17:01 | P.HPIM ---
History of Present Illness H&P Date: 07/25/23 Chief Complaint: Altered mental status 62-year-old male history of hypertension, hyperlipidemia, diabetes mellitus, atrial fibrillation presenting to the emergency department by EMS. Patient presents for change in mental status. Patient is very drowsy and a poor historian. Patient is arousable to touch but still limited to providing history. Patient denies taking any medication's or overdose or thoughts of self-harm. No reported trauma. EMS did try 2 of Narcan without improvement of symptoms. Past Medical History Past Medical History: Atrial Fibrillation, CVA/TIA, Diabetes Mellitus, GERD/Reflux, Hyperlipidemia, Hypertension, Sleep Apnea/CPAP/BIPAP Additional Past Medical History / Comment(s): diabetic neuropathy, "leaky valve", frequent foot & ankle swelling, USES C-PAP, shortness of breath, unable to walk distances. rhabdo History of Any Multi-Drug Resistant Organisms: None Reported Past Surgical History: Bariatric Surgery, Hernia Repair Additional Past Surgical History / Comment(s): GASTRIC SLEEVE. EGD Past Anesthesia/Blood Transfusion Reactions: No Reported Reaction, Motion Sickness Past Psychological History: Anxiety Smoking Status: Former smoker Past Alcohol Use History: None Reported Past Drug Use History: None Reported - Past Family History Mother Family Medical History: Cancer Medications and Allergies Home Medications Medication Instructions Recorded Confirmed Type Omeprazole [PriLOSEC] 20 mg PO DAILY@0600 06/27/20 05/25/23 History Pioglitazone [Actos] 30 mg PO DAILY 06/27/20 05/25/23 History Rivaroxaban [Xarelto] 20 mg PO DAILY@1700 06/27/20 05/25/23 History Acetaminophen Tab [Tylenol] 650 mg PO Q6H PRN 05/25/23 05/25/23 History Atorvastatin [Lipitor] 20 mg PO HS 05/25/23 05/25/23 History Budesonide [Pulmicort] 0.5 mg INHALATION RT-BID 05/25/23 05/25/23 History Cetirizine HCl [Zyrtec] 10 mg PO DAILY 05/25/23 05/25/23 History Cholecalciferol [Vitamin D3 (25 25 mcg PO DAILY 05/25/23 05/25/23 History Mcg = 1000 Iu)] Empagliflozin [Jardiance] 10 mg PO DAILY 05/25/23 05/25/23 History Hydrophilic Cream [Triad (Kerodex 1 applic TOPICAL HS 05/25/23 05/25/23 History geq)] Hydrophilic Cream [Triad (Kerodex 1 applic TOPICAL Q12H PRN 05/25/23 05/25/23 History geq)] Insulin Degludec [Tresiba] 30 units SQ DAILY 05/25/23 05/25/23 History Insulin Lispro [humaLOG Kwikpen] See Protocol SQ QID 05/25/23 05/25/23 History Ipratropium-Albuterol Nebulize 3 ml INHALATION RT-Q6H 05/25/23 05/25/23 History [Duoneb 0.5 mg-3 mg/3 ml Soln] Metoprolol Tartrate [Lopressor] 25 mg PO BID 05/25/23 05/25/23 History Sennosides [Senokot] 8.6 mg PO BID 05/25/23 05/25/23 History Tirzepatide [Mounjaro] 7.5 mg SQ FR 05/25/23 05/25/23 History polyethylene glycoL 3350 [Miralax] 17 gm PO DAILY PRN 05/25/23 05/25/23 History Baclofen 5 mg PO TID@0600,1400,2200 3 Days 05/26/23 Rx #9 tab Furosemide [Lasix] 40 mg PO BID 30 Days #60 05/26/23 05/25/23 Rx Gabapentin [Neurontin] 400 mg PO TID@0600,1400,2200 3 05/26/23 Rx Days #9 cap HYDROcodone/APAP 7.5-325MG [[place] 1 tab PO Q6H PRN 3 Days #12 tab 05/26/23 Rx 7.5-325] Allergies Allergy/AdvReac Type Severity Reaction Status Date / Time latex Allergy Rash/Hives Verified 07/25/23 09:16 Physical Exam Vitals: Vital Signs Temp Pulse Resp BP Pulse Ox 07/25/23 16:31 43 L 16 128/88 100 07/25/23 14:13 96.8 F L 49 L 18 136/90 100 07/25/23 13:11 67 18 119/92 96 07/25/23 12:00 66 18 115/67 95 07/25/23 11:37 46 L 18 137/88 99 07/25/23 10:30 49 L 18 118/76 99 07/25/23 09:05 97.6 F 57 L 16 119/85 89 L Intake and Output 07/25/23 07/25/23 07/25/23 06:59 14:59 22:59 Other: Weight 172.365 kg General appearance: Drowsy. Arousable to touch and verbal stimulation Head exam: Present: atraumatic Eye exam: Present: normal appearance, PERRL Neck exam: Present: normal inspection. Absent: tenderness, meningismus Respiratory exam: Present: normal lung sounds bilaterally Cardiovascular Exam: Present: regular rate, normal rhythm GI/Abdominal exam: Present: soft. Absent: tenderness Extremities exam: Present: normal inspection Neurological exam: Present: person, place. Absent: time Motor strength exam: RUE: 5, LUE: 5, RLE: 5, LLE: 5 Eye Response: (2) open to pain Motor Response: (6) obeys commands Verbal Response: (4) confused conversation Psychiatric exam: Present: flat affect Skin exam: Present: other (Right dorsal foot with approximately 4 x 4 centimeter ulcer with foul odor. Stage III.) Results CBC & Chem 7: 07/25/23 09:22 07/25/23 09:22 Labs: Abnormal Lab Results - Last 24 Hours (Table) 07/25/23 07/25/23 07/25/23 Range/Units 09:22 09:22 09:22 Hgb 10.7 L (13.0-17.5) gm/dL Hct 35.2 L (39.0-53.0) % MCV 75.9 L D (80.0-100.0) fL MCH 23.1 L (25.0-35.0) pg MCHC 30.5 L (31.0-37.0) g/dL RDW 17.8 H (11.5-15.5) % ABG pCO2 (35-45) mmHg ABG HCO3 (21-25) mmol/L ABG Total CO2 (19-24) mmol/L ABG O2 Saturation (94-97) % Potassium 3.1 L (3.5-5.1) mmol/L Chloride 97 L (98-107) mmol/L BUN 27 H (9-20) mg/dL Glucose 251 H (74-99) mg/dL POC Glucose (mg/dL) (70-110) mg/dL Plasma Lactic Acid Antony (0.7-2.0) mmol/L Urine Protein (Negative) Urine Ketones (Negative) Urine Mucus (None) /hpf U Benzodiazepines Scrn Detected H (NotDetected) Urine Cocaine Screen Detected H (NotDetected) 07/25/23 07/25/23 07/25/23 Range/Units 09:22 09:22 09:36 Hgb (13.0-17.5) gm/dL Hct (39.0-53.0) % MCV (80.0-100.0) fL MCH (25.0-35.0) pg MCHC (31.0-37.0) g/dL RDW (11.5-15.5) % ABG pCO2 52 H (35-45) mmHg ABG HCO3 33 H (21-25) mmol/L ABG Total CO2 35 H (19-24) mmol/L ABG O2 Saturation 98.3 H (94-97) % Potassium (3.5-5.1) mmol/L Chloride (98-107) mmol/L BUN (9-20) mg/dL Glucose (74-99) mg/dL POC Glucose (mg/dL) (70-110) mg/dL Plasma Lactic Acid Antony 2.3 H* (0.7-2.0) mmol/L Urine Protein Trace H (Negative) Urine Ketones Trace H (Negative) Urine Mucus Rare H (None) /hpf U Benzodiazepines Scrn (NotDetected) Urine Cocaine Screen (NotDetected) 07/25/23 Range/Units 11:45 Hgb (13.0-17.5) gm/dL Hct (39.0-53.0) % MCV (80.0-100.0) fL MCH (25.0-35.0) pg MCHC (31.0-37.0) g/dL RDW (11.5-15.5) % ABG pCO2 (35-45) mmHg ABG HCO3 (21-25) mmol/L ABG Total CO2 (19-24) mmol/L ABG O2 Saturation (94-97) % Potassium (3.5-5.1) mmol/L Chloride (98-107) mmol/L BUN (9-20) mg/dL Glucose (74-99) mg/dL POC Glucose (mg/dL) 230 H (70-110) mg/dL Plasma Lactic Acid Antony (0.7-2.0) mmol/L Urine Protein (Negative) Urine Ketones (Negative) Urine Mucus (None) /hpf U Benzodiazepines Scrn (NotDetected) Urine Cocaine Screen (NotDetected) Assessment and Plan Assessment: 1. Altered mental status -- Polysubstance abuse; urine drug screen is positive for cocaine and benzodiazepines; patient did receive Narcan in ED without much improvement - Patient is being admitted for further neuro monitoring 2. Mild AK I; P fluid hydration with normal saline at a rate of 100 mL an hour; monitor strict VICKEY's, daily weights, renal function and electrolytes; avoid nephrotoxins and hypotension 3. Hypokalemia; supplemented in ED; monitor electrolytes closely and supplement as needed 4. Hyperglycemia; uncontrolled; monitor Accu-Cheks closely and adjust insulin sliding scale 5. Hypertension; metoprolol 25 mg daily. 6. Atrial fibrillation; rate controlled on metoprolol; Xarelto 20 mg daily for anticoagulation 7. Hyperlipidemia; Lipitor 20 mg by mouth daily at bedtime 8. COPD/asthma; not in exacerbation; continue with home therapy DVT prophylaxis; Xarelto CODE STATUS; full code
[2023-07-26 02:54] LABS: Glucose,Whole Blood 137 mg/dL (70-110)
[2023-07-26] MEDS: SODIUM CHLORIDE 0.9% 1,000 ML IV SCH ×2 (04:33→16:24)
--- NOTE | 2023-07-26 07:21 | P.CONS ---
History of Present Illness - Reason for Consult Consult date: 07/25/23 - History of Present Illness Patient is a 62-year-old male with a past medical history significant for diabetes mellitus hypertension hyperlipidemia atrial fibrillation patient has been brought into the ER by EMS concern for mental status changes patient was noticed to be very drowsy and a poor historian EMS did try to Narcan without improvement of his symptoms on presentation to the hospital patient was afebrile and no fever has been called subsequently patient was not tachycardic or hypotensive is requiring supplemental oxygen currently on 3 L nasal cannula patient did have white count of 8.3 with no left shift creatinine 0.91 lactic acid 2.3 and liver enzymes are normal urine has been negative urine drug screen was positive for benzo and cocaine patient noticed to have a wound to the dorsum aspect of the right foot for the patient did have a chest x-ray soft tissue swelling edema of the foot without evidence for fracture or bony erosion chest x-ray cardiomegaly mild pulm vascular congestion infectious disease was consulted for right foot wound most information has been obtained from review the chart as the patient remains to be lethargic and did not provide any history as far as right foot wound and the kind of treatment he is receiving for it Past Medical History Past Medical History: Atrial Fibrillation, CVA/TIA, Diabetes Mellitus, GERD/Reflux, Hyperlipidemia, Hypertension, Sleep Apnea/CPAP/BIPAP Additional Past Medical History / Comment(s): diabetic neuropathy, "leaky valve", frequent foot & ankle swelling, USES C-PAP, shortness of breath, unable to walk distances. rhabdo History of Any Multi-Drug Resistant Organisms: None Reported Past Surgical History: Bariatric Surgery, Hernia Repair Additional Past Surgical History / Comment(s): GASTRIC SLEEVE. EGD Past Anesthesia/Blood Transfusion Reactions: No Reported Reaction, Motion Sickness Past Psychological History: Anxiety Smoking Status: Former smoker Past Alcohol Use History: None Reported Past Drug Use History: None Reported - Past Family History Mother Family Medical History: Cancer Medications and Allergies Home Medications Medication Instructions Recorded Confirmed Type Omeprazole [PriLOSEC] 20 mg PO DAILY@0600 06/27/20 07/25/23 History Pioglitazone [Actos] 30 mg PO DAILY 06/27/20 07/25/23 History Rivaroxaban [Xarelto] 20 mg PO DAILY@1700 06/27/20 07/25/23 History Acetaminophen Tab [Tylenol] 650 mg PO Q6H PRN 05/25/23 07/25/23 History Atorvastatin [Lipitor] 20 mg PO HS 05/25/23 07/25/23 History Budesonide [Pulmicort] 0.5 mg INHALATION RT-BID 05/25/23 07/25/23 History Cetirizine HCl [Zyrtec] 10 mg PO DAILY 05/25/23 07/25/23 History Cholecalciferol [Vitamin D3 (25 25 mcg PO DAILY 05/25/23 07/25/23 History Mcg = 1000 Iu)] Empagliflozin [Jardiance] 10 mg PO DAILY 05/25/23 07/25/23 History Hydrophilic Cream [Triad (Kerodex 1 applic TOPICAL HS 05/25/23 07/25/23 History geq)] Hydrophilic Cream [Triad (Kerodex 1 applic TOPICAL Q12H PRN 05/25/23 07/25/23 History geq)] Insulin Lispro [humaLOG Kwikpen] See Protocol SQ QID 05/25/23 07/25/23 History Ipratropium-Albuterol Nebulize 3 ml INHALATION RT-Q6H 05/25/23 07/25/23 History [Duoneb 0.5 mg-3 mg/3 ml Soln] Metoprolol Tartrate [Lopressor] 25 mg PO BID 05/25/23 07/25/23 History Sennosides [Senokot] 8.6 mg PO BID 05/25/23 07/25/23 History Tirzepatide [Mounjaro] 7.5 mg SQ FR 05/25/23 07/25/23 History polyethylene glycoL 3350 [Miralax] 17 gm PO DAILY PRN 05/25/23 07/25/23 History Baclofen 10 mg PO BID 07/25/23 07/25/23 History Fluticasone Nasal [place] [Flonase 2 spr EA NOSTRIL DAILY 07/25/23 07/25/23 History Nasal [place]] Furosemide [Lasix] 60 mg PO DAILY 07/25/23 07/25/23 History HYDROcodone/APAP 7.5-325MG [[place] 1 tab PO TID 07/25/23 07/25/23 History 7.5-325] Insulin Degludec [Tresiba 30 units SQ DAILY 07/25/23 07/25/23 History Flextouch U-200 Pen] Naloxone HCl [Narcan] 4 mg NASAL DIRECTED PRN 07/25/23 07/25/23 History cefUROXime axetiL [Ceftin] 500 mg PO BID 07/25/23 07/25/23 History Allergies Allergy/AdvReac Type Severity Reaction Status Date / Time latex Allergy Rash/Hives Verified 07/25/23 18:07 Physical Exam Vitals: Vital Signs Temp Pulse Resp BP Pulse Ox 07/25/23 14:13 96.8 F L 49 L 18 136/90 100 07/25/23 13:11 67 18 119/92 96 07/25/23 12:00 66 18 115/67 95 07/25/23 11:37 46 L 18 137/88 99 07/25/23 10:30 49 L 18 118/76 99 07/25/23 09:05 97.6 F 57 L 16 119/85 89 L Intake and Output 07/24/23 07/25/23 07/25/23 22:59 06:59 14:59 Other: Weight 172.365 kg Results CBC & Chem 7: 07/25/23 09:22 07/25/23 09:22 Labs: Abnormal Lab Results - Last 24 Hours (Table) 07/25/23 07/25/23 07/25/23 Range/Units 09:22 09:22 09:22 Hgb 10.7 L (13.0-17.5) gm/dL Hct 35.2 L (39.0-53.0) % MCV 75.9 L D (80.0-100.0) fL MCH 23.1 L (25.0-35.0) pg MCHC 30.5 L (31.0-37.0) g/dL RDW 17.8 H (11.5-15.5) % ABG pCO2 (35-45) mmHg ABG HCO3 (21-25) mmol/L ABG Total CO2 (19-24) mmol/L ABG O2 Saturation (94-97) % Potassium 3.1 L (3.5-5.1) mmol/L Chloride 97 L (98-107) mmol/L BUN 27 H (9-20) mg/dL Glucose 251 H (74-99) mg/dL POC Glucose (mg/dL) (70-110) mg/dL Plasma Lactic Acid Antony (0.7-2.0) mmol/L Urine Protein (Negative) Urine Ketones (Negative) Urine Mucus (None) /hpf U Benzodiazepines Scrn Detected H (NotDetected) Urine Cocaine Screen Detected H (NotDetected) 07/25/23 07/25/23 07/25/23 Range/Units 09:22 09:22 09:36 Hgb (13.0-17.5) gm/dL Hct (39.0-53.0) % MCV (80.0-100.0) fL MCH (25.0-35.0) pg MCHC (31.0-37.0) g/dL RDW (11.5-15.5) % ABG pCO2 52 H (35-45) mmHg ABG HCO3 33 H (21-25) mmol/L ABG Total CO2 35 H (19-24) mmol/L ABG O2 Saturation 98.3 H (94-97) % Potassium (3.5-5.1) mmol/L Chloride (98-107) mmol/L BUN (9-20) mg/dL Glucose (74-99) mg/dL POC Glucose (mg/dL) (70-110) mg/dL Plasma Lactic Acid Antony 2.3 H* (0.7-2.0) mmol/L Urine Protein Trace H (Negative) Urine Ketones Trace H (Negative) Urine Mucus Rare H (None) /hpf U Benzodiazepines Scrn (NotDetected) Urine Cocaine Screen (NotDetected) 07/25/23 Range/Units 11:45 Hgb (13.0-17.5) gm/dL Hct (39.0-53.0) % MCV (80.0-100.0) fL MCH (25.0-35.0) pg MCHC (31.0-37.0) g/dL RDW (11.5-15.5) % ABG pCO2 (35-45) mmHg ABG HCO3 (21-25) mmol/L ABG Total CO2 (19-24) mmol/L ABG O2 Saturation (94-97) % Potassium (3.5-5.1) mmol/L Chloride (98-107) mmol/L BUN (9-20) mg/dL Glucose (74-99) mg/dL POC Glucose (mg/dL) 230 H (70-110) mg/dL Plasma Lactic Acid Antony (0.7-2.0) mmol/L Urine Protein (Negative) Urine Ketones (Negative) Urine Mucus (None) /hpf U Benzodiazepines Scrn (NotDetected) Urine Cocaine Screen (NotDetected) Assessment and Plan Plan: 1patient with the right diabetic foot ulcer with a wound on the dorsal aspect of the right foot patient did have swelling to the right foot but no significant redness patient is not running any fever and white count has been normal will recommend local wound care with Medihoney followed by moist dressing change daily 2-we will monitor the patient closely off antibiotic therapy We will follow on clinical condition and cultures to further adjust medication if needed Thank you for this consultation we will follow the patient along with you Dictation was produced using [employer] dictation software. please excuse any grammatical, word or spelling errors. Time with Patient: Greater than 30
[2023-07-26 08:30] LABS: Anisocytosis Slight; Basophils % (A) 0 %; Eosinophils # (A) 0.2 k/uL (0-0.7); Eosinophils % (A) 2 %; HCT 35.2 % (39.0-53.0); HGB 10.4 gm/dL (13.0-17.5); Hypochromasia Marked; Lymphocytes # (A) 1.8 k/uL (1.0-4.8); Lymphocytes % (A) 24 %; MCH 22.9 pg (25.0-35.0); MCHC 29.6 g/dL (31.0-37.0); MCV 77.5 fL (80.0-100.0); Mean Platelet Volume 6.7; Microcytosis Slight; Monocytes # (A) 0.6 k/uL (0-1.0); Monocytes % (A) 7 %; Neutrophils # (A) 4.8 k/uL (1.3-7.7); Neutrophils % (A) 63 %; Platelet Count 411 k/uL (150-450); RBC 4.54 m/uL (4.30-5.90); RDW 17.9 % (11.5-15.5); WBC 7.6 k/uL (3.8-10.6)
[2023-07-26] MEDS: PANTOPRAZOLE 40 MG/10 ML VIAL IV SCH (09:07)
[2023-07-26 10:41] LABS: ALT 11 U/L (4-49); AST 23 U/L (17-59); African American GFR (CKD) >90 (>60 ml/min/1.73 sqM); Albumin 3.2 g/dL (3.5-5.0); Alkaline Phosphatase 76 U/L (38-126); Anion Gap 9 mmol/L; Blood Urea Nitrogen 22 mg/dL (9-20); Calcium 8.9 mg/dL (8.4-10.2); Carbon Dioxide 33 mmol/L (22-30); Chloride 97 mmol/L (98-107); Glucose 133 mg/dL (74-99); Non-African American GFR(CKD) >90 (>60 ml/min/1.73 sqM); Potassium 3.4 mmol/L (3.5-5.1); Sodium 139 mmol/L (137-145); Total Bilirubin 0.5 mg/dL (0.2-1.3); Total Protein 6.3 g/dL (6.3-8.2)
[2023-07-26] MEDS ORDERED: THIAMINE 100 MG/ML 2 ML VIAL IM STA (11:15)
[2023-07-26] MEDS ORDERED: LORazepam 2 MG/ML INJ IV PRN ×3 (11:15→11:17)
[2023-07-26] MEDS ORDERED: LORazepam 1 MG TAB PO PRN ×3 (11:15)
[2023-07-26] MEDS: LORazepam 2 MG/ML INJ IV PRN ×2 (11:44→15:27)
[2023-07-26] MEDS ORDERED: polyethylene glycoL 3350 17 GM POWD.PACK PO PRN (13:05)
[2023-07-26] MEDS: IPRATROPIUM-ALBUTEROL 3 ML NEB INHALATION SCH ×2 (16:08→18:41)
[2023-07-26] MEDS: HYDROcodone/APAP 7.5-325MG 1 EACH TAB PO SCH (17:25)
[2023-07-26 17:47] LABS: Glucose,Whole Blood 176 mg/dL (70-110)
[2023-07-26] MEDS: RIVAROXABAN 20 MG TAB PO SCH (17:57)
--- NOTE | 2023-07-26 17:58 | P.PN ---
Subjective Progress Note Date: 07/26/23 62-year-old male history of hypertension, hyperlipidemia, diabetes mellitus, atrial fibrillation presenting to the emergency department by EMS. Patient presents for change in mental status. Patient is very drowsy and a poor historian. Patient is arousable to touch but still limited to providing history . Patient denies taking any medication's or overdose or thoughts of self-harm. No reported trauma. EMS did try 2 of Narcan without improvement of symptoms. patient with the right diabetic foot ulcer with a wound on the dorsal aspect of the right foot patient did have swelling to the right foot but no significant redness patient is not running any fever and white count has been normal will recommend local wound care with Medihoney followed by moist dressing change daily -we will monitor the patient closely off antibiotic therapy Patient is awake and alert but remains confused and restless; concern about possible benzodiazepine withdrawal; patient has been placed on CIWA protocol Objective - Vital Signs Vital signs: Vital Signs Temp 98.2 F 07/26/23 09:00 Pulse 76 07/26/23 09:00 Resp 20 07/26/23 09:00 BP 116/82 07/26/23 09:00 Pulse Ox 98 07/26/23 09:00 FiO2 21 07/26/23 01:05 Intake & Output 07/25/23 07/26/23 07/26/23 18:59 06:59 18:59 Weight 172.365 kg - Exam General appearance: Drowsy. Arousable to touch and verbal stimulation Head exam: Present: atraumatic Eye exam: Present: normal appearance, PERRL Neck exam: Present: normal inspection. Absent: tenderness, meningismus Respiratory exam: Present: normal lung sounds bilaterally Cardiovascular Exam: Present: regular rate, normal rhythm GI/Abdominal exam: Present: soft. Absent: tenderness Extremities exam: Present: normal inspection Neurological exam: Present: person, place. Absent: time Motor strength exam: RUE: 5, LUE: 5, RLE: 5, LLE: 5 Eye Response: (2) open to pain Motor Response: (6) obeys commands Verbal Response: (4) confused conversation Psychiatric exam: Present: flat affect Skin exam: Present: other (Right dorsal foot with approximately 4 x 4 centimeter ulcer with foul odor. Stage III.) - Labs CBC & Chem 7: 07/26/23 07:41 07/26/23 07:41 Labs: Abnormal Lab Results - Last 24 Hours (Table) 07/25/23 07/25/23 07/25/23 Range/Units 09:22 09:22 09:22 Hgb (13.0-17.5) gm/dL Hct (39.0-53.0) % MCV (80.0-100.0) fL MCH (25.0-35.0) pg MCHC (31.0-37.0) g/dL RDW (11.5-15.5) % Potassium 3.1 L (3.5-5.1) mmol/L Chloride 97 L (98-107) mmol/L Carbon Dioxide (22-30) mmol/L BUN 27 H (9-20) mg/dL Glucose 251 H (74-99) mg/dL POC Glucose (mg/dL) (70-110) mg/dL Plasma Lactic Acid Antony 2.3 H* (0.7-2.0) mmol/L Albumin (3.5-5.0) g/dL Urine Protein (Negative) Urine Ketones (Negative) Urine Mucus (None) /hpf U Benzodiazepines Scrn Detected H (NotDetected) Urine Cocaine Screen Detected H (NotDetected) 07/25/23 07/25/23 07/26/23 Range/Units 09:22 11:45 02:50 Hgb (13.0-17.5) gm/dL Hct (39.0-53.0) % MCV (80.0-100.0) fL MCH (25.0-35.0) pg MCHC (31.0-37.0) g/dL RDW (11.5-15.5) % Potassium (3.5-5.1) mmol/L Chloride (98-107) mmol/L Carbon Dioxide (22-30) mmol/L BUN (9-20) mg/dL Glucose (74-99) mg/dL POC Glucose (mg/dL) 230 H 137 H (70-110) mg/dL Plasma Lactic Acid Antony (0.7-2.0) mmol/L Albumin (3.5-5.0) g/dL Urine Protein Trace H (Negative) Urine Ketones Trace H (Negative) Urine Mucus Rare H (None) /hpf U Benzodiazepines Scrn (NotDetected) Urine Cocaine Screen (NotDetected) 07/26/23 07/26/23 Range/Units 07:41 07:41 Hgb 10.4 L (13.0-17.5) gm/dL Hct 35.2 L (39.0-53.0) % MCV 77.5 L (80.0-100.0) fL MCH 22.9 L (25.0-35.0) pg MCHC 29.6 L (31.0-37.0) g/dL RDW 17.9 H (11.5-15.5) % Potassium 3.4 L (3.5-5.1) mmol/L Chloride 97 L (98-107) mmol/L Carbon Dioxide 33 H (22-30) mmol/L BUN 22 H (9-20) mg/dL Glucose 133 H (74-99) mg/dL POC Glucose (mg/dL) (70-110) mg/dL Plasma Lactic Acid Antony (0.7-2.0) mmol/L Albumin 3.2 L (3.5-5.0) g/dL Urine Protein (Negative) Urine Ketones (Negative) Urine Mucus (None) /hpf U Benzodiazepines Scrn (NotDetected) Urine Cocaine Screen (NotDetected) Assessment and Plan Assessment: 1. Altered mental status -- Polysubstance abuse; urine drug screen is positive for cocaine and benzodiazepines; patient did receive Narcan in ED without much improvement - Patient is being admitted for further neuro monitoring 2. Mild AK I; P fluid hydration with normal saline at a rate of 100 mL an hour; monitor strict VICKEY's, daily weights, renal function and electrolytes; avoid nephrotoxins and hypotension 3. Hypokalemia; supplemented in ED; monitor electrolytes closely and supplement as needed 4. Hyperglycemia; uncontrolled; monitor Accu-Cheks closely and adjust insulin sliding scale 5. Hypertension; metoprolol 25 mg daily. 6. Atrial fibrillation; rate controlled on metoprolol; Xarelto 20 mg daily for anticoagulation 7. Hyperlipidemia; Lipitor 20 mg by mouth daily at bedtime 8. COPD/asthma; not in exacerbation; continue with home therapy DVT prophylaxis; Xarelto CODE STATUS; full code
[2023-07-26] MEDS ORDERED: DEXTROSE 50% SYRINGE 50 ML IVP PRN ×2 (18:00)
--- NOTE | 2023-07-26 18:31 | P.PN ---
Subjective Progress Note Date: 07/26/23 Principal diagnosis: Reason for follow up his right leg and right foot diabetic foot wound Patient is a 62-year-old male with a past medical history significant for diabetes mellitus hypertension hyperlipidemia atrial fibrillation patient has been brought into the ER by EMS concern for mental status changes, patient also noticed to have a right foot and leg wound prompting this infectious disease consultation patient mention he has this wound for a couple of weeks now and is being treated by his primary care physician weekly and recently completed a course of antibiotic however the patient unclear about the name of those antibiotics On today's evaluation that is 07/26/2023 patient is more awake and alert today compared to yesterday however seems to be pleasantly confused patient denies any fever or any chills, the patient is breathing comfortably on 3 L nasal cannula oxygen denies any chest pain shortness of the cough no abdominal pain or any worsening pain to the lower extremity wound. Patient did have white count of 7.6 creatinine 0.73 Objective - Vital Signs Vital signs: Vital Signs Temp 98.2 F 07/26/23 09:00 Pulse 76 07/26/23 09:00 Resp 20 07/26/23 09:00 BP 116/82 07/26/23 09:00 Pulse Ox 98 07/26/23 09:00 FiO2 21 07/26/23 01:05 Intake & Output 07/25/23 07/26/23 07/26/23 18:59 06:59 18:59 Weight 172.365 kg - Exam GENERAL DESCRIPTION: Middle-age male lying in bed in no distress RESPIRATORY SYSTEM: Unlabored breathing , decreased breath sounds at bases HEART: S1 S2 regular rate and rhythm , ABDOMEN: Soft , no tenderness EXTREMITIES: Right lower leg did have 2 wounds to the upper wound did have no slough tissue surrounding redness lower wound seem to be mostly healed with no redness or any drainage. The patient right foot dorsal wound with some slough tissue and a swelling but no redness or foul-smelling drainage. - Labs CBC & Chem 7: 07/26/23 07:41 07/26/23 07:41 Labs: Abnormal Lab Results - Last 24 Hours (Table) 07/25/23 07/25/23 07/25/23 Range/Units 09:22 09:22 09:22 Hgb (13.0-17.5) gm/dL Hct (39.0-53.0) % MCV (80.0-100.0) fL MCH (25.0-35.0) pg MCHC (31.0-37.0) g/dL RDW (11.5-15.5) % Potassium 3.1 L (3.5-5.1) mmol/L Chloride 97 L (98-107) mmol/L Carbon Dioxide (22-30) mmol/L BUN 27 H (9-20) mg/dL Glucose 251 H (74-99) mg/dL POC Glucose (mg/dL) (70-110) mg/dL Plasma Lactic Acid Antony 2.3 H* (0.7-2.0) mmol/L Albumin (3.5-5.0) g/dL Urine Protein (Negative) Urine Ketones (Negative) Urine Mucus (None) /hpf U Benzodiazepines Scrn Detected H (NotDetected) Urine Cocaine Screen Detected H (NotDetected) 07/25/23 07/25/23 07/26/23 Range/Units 09:22 11:45 02:50 Hgb (13.0-17.5) gm/dL Hct (39.0-53.0) % MCV (80.0-100.0) fL MCH (25.0-35.0) pg MCHC (31.0-37.0) g/dL RDW (11.5-15.5) % Potassium (3.5-5.1) mmol/L Chloride (98-107) mmol/L Carbon Dioxide (22-30) mmol/L BUN (9-20) mg/dL Glucose (74-99) mg/dL POC Glucose (mg/dL) 230 H 137 H (70-110) mg/dL Plasma Lactic Acid Antony (0.7-2.0) mmol/L Albumin (3.5-5.0) g/dL Urine Protein Trace H (Negative) Urine Ketones Trace H (Negative) Urine Mucus Rare H (None) /hpf U Benzodiazepines Scrn (NotDetected) Urine Cocaine Screen (NotDetected) 07/26/23 07/26/23 Range/Units 07:41 07:41 Hgb 10.4 L (13.0-17.5) gm/dL Hct 35.2 L (39.0-53.0) % MCV 77.5 L (80.0-100.0) fL MCH 22.9 L (25.0-35.0) pg MCHC 29.6 L (31.0-37.0) g/dL RDW 17.9 H (11.5-15.5) % Potassium 3.4 L (3.5-5.1) mmol/L Chloride 97 L (98-107) mmol/L Carbon Dioxide 33 H (22-30) mmol/L BUN 22 H (9-20) mg/dL Glucose 133 H (74-99) mg/dL POC Glucose (mg/dL) (70-110) mg/dL Plasma Lactic Acid Antony (0.7-2.0) mmol/L Albumin 3.2 L (3.5-5.0) g/dL Urine Protein (Negative) Urine Ketones (Negative) Urine Mucus (None) /hpf U Benzodiazepines Scrn (NotDetected) Urine Cocaine Screen (NotDetected) Assessment and Plan (1) Diabetic foot ulcer associated with type 2 diabetes mellitus, with fat layer exposed Current Visit: Yes Status: Acute Code(s): E11.621 - TYPE 2 DIABETES MELLITUS WITH FOOT ULCER; L97.502 - NON-PRS CHRONIC ULCER OTH PRT UNSP FOOT W FAT LAYER EXPOSED SNOMED Code(s): 0653542519057 (2) Leg wound, right Current Visit: Yes Status: Acute Code(s): S81.801A - UNSPECIFIED OPEN WOUND, RIGHT LOWER LEG, INITIAL ENCOUNTER SNOMED Code(s): 419804282 Plan: 1patient with the right diabetic foot ulcer with a wound on the dorsal aspect of the right foot patient did have swelling to the right foot but no significant redness patient is not running any fever and white count has been normal 2-Patient to continue local wound care to the right foot wound with Medihoney followed by moist dressing change daily apply Aquacel silver dressing to the right leg upper wound and Mepilex to the lower wound this was explained to the patient nurse at the bedside Dictation was produced using [employer] software. please excuse any grammatical, word or spelling errors.
[2023-07-26] MEDS: BUDESONIDE 0.5 MG/2 ML NEBU INHALATION SCH (18:43)
[2023-07-26 20:45] LABS: Glucose,Whole Blood 158 mg/dL (70-110)
[2023-07-26] MEDS: SENNOSIDES 8.6 MG TAB PO SCH (22:23)
[2023-07-26] MEDS: METOPROLOL TARTRATE 25 MG TAB PO SCH (22:23)
[2023-07-26] MEDS: INSULIN ASPART (NovoLOG) 100 UNIT/ML VIAL SQ SCH (22:23)
[2023-07-26] MEDS: BACLOFEN 10 MG TAB PO SCH (22:23)
[2023-07-26] MEDS: ATORVASTATIN 20 MG TAB PO SCH (22:23)
[2023-07-27] MEDS: HYDROcodone/APAP 7.5-325MG 1 EACH TAB PO SCH ×4 (00:24→21:05)
[2023-07-27] MEDS ORDERED: NON FORMULARY DRUG (Omeprazole 20 MG Capsule.Dr) PO SCH (06:00)
[2023-07-27 07:29] LABS: Glucose,Whole Blood 166 mg/dL (70-110)
[2023-07-27] MEDS: IPRATROPIUM-ALBUTEROL 3 ML NEB INHALATION SCH ×4 (08:05→18:20)
[2023-07-27] MEDS: BUDESONIDE 0.5 MG/2 ML NEBU INHALATION SCH ×2 (08:05→18:20)
--- NOTE | 2023-07-27 08:12 | P.CNNES ---
History of Present Illness Consult date: 07/26/23 Requesting physician: Pepe Hansen Reason for Consult: AMS History of Present Illness: Patient is a 62-year-old male with history of diabetes, came to the hospital by ambulance yesterday at 8:55 AM for altered mental status. Patient tells me that he came because he fell at home. Patient states that his brother or the car in garage, too close to the door, only only about 1 foot. Once he get off the car, his brother got him the walker. In order to walk, he had to back off with the walker. Some of the dropped onto the floor. He did not hit his head. As per EMS flow sheet, when they arrived, found patient laying on the cement outside. Patient mentioned that he was getting out of the car when he tripped and fell. Patient states he did not hit his head. He does not take any blood thinners and denies any complaints at that time. Patient was assisted to a standing position with the help of other personnel. Once in the standing position, patient was able to walk without assistance into his residence. Patient was noted to be alert and oriented 2 with GCS of 14. Family mentioned that this is not normal for patient and patient is typically able to answer all questions appropriately. Patient was noted to become lethargic, began nodding off, dry heaving and was unable to stay awake. The blood glucose was 226. EMS found patient's empty bottle of hydrocodone that was filled on 07/15/2023 with a quantity of 90. Patient's vitals at the scene was blood pressure 134/85, pulse rate 69, respiration 18, saturation 100% and blood glucose 226. Blood test shows normal WBC, hemoglobin 10.7, platelets 442, PT/PTT normal, sodium is normal potassium 3.1 and renal functions, hepatic panel, ammonia is normal. UA is negative, urine drug screen positive for benzodiazepine and marah camelia. Blood alcohol level was negative. EKG showed atrial fibrillation with slow ventricular response. Photic x-ray showed soft tissue swelling and edema of the foot without evidence of fracture. No evidence for osseous erosion. Chest x-ray showed cardiomegaly and mild pulmonary vascular congestion. Correlate with BNP for congestive heart failure. CT head showed no acute intracranial process. Nonspecific white matter changes, likely secondary to chronic small vessel ischemic disease. I personally reviewed CT head, agree with the findings. 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 Patient had a 2-D echo on 05/26/2023, which revealed left ventricular ejection fraction estimated 55-60%, no obvious regional wall motion abnormality, no significant valvular dysfunction. Patient appears to be in atrial fibrillation. Normal left atrial size. Patient does take Xarelto 20 mg daily. Also on Lipitor 20 mg daily. At present, patient appears very delirious, hallucinating. Patient seeing some random stuff, like "I've got 5 gifts for you". He then said "I'm going to give you $50, and you'll have before you leave". He said "I already got $50 only for you". Patient then said "Instead of you, I'll give it to old lady locked in that room", pointing to the door of the room next to his room. Patient sat that there is Prosper Skinner, who is a mortgage closing clerk at the [employer] is in the room with the door locked." He is waiting for you". Patient also has a large diabetic ulcer on the right foot and leg. Patient states that he quit smoking "75 years" ago. He states that he smoked since fourth grade. Patient says he has history of diabetes for long time, and he lives with his brother, walks with a walker. Review of Systems Constitutional: Denies chills, Denies fever Eyes: denies blurred vision, denies diplopia, denies pain Ears, nose, mouth and throat: Denies headache, Denies sore throat Cardiovascular: Denies chest pain, Denies shortness of breath Respiratory: Denies cough, Denies excessive sputum Gastrointestinal: Denies abdominal pain, Denies diarrhea, Denies nausea, Denies vomiting Musculoskeletal: Denies low back pain, Denies neck pain Integumentary: Reports foot/leg ulcers, Reports rash Neurological: Reports as per HPI Past Medical History Past Medical History: Atrial Fibrillation, CVA/TIA, Diabetes Mellitus, GERD/Reflux, Hyperlipidemia, Hypertension, Sleep Apnea/CPAP/BIPAP Additional Past Medical History / Comment(s): diabetic neuropathy, "leaky valve", frequent foot & ankle swelling, USES C-PAP, shortness of breath, unable to walk distances. rhabdo History of Any Multi-Drug Resistant Organisms: None Reported Past Surgical History: Bariatric Surgery, Hernia Repair Additional Past Surgical History / Comment(s): GASTRIC SLEEVE. EGD Past Anesthesia/Blood Transfusion Reactions: No Reported Reaction, Motion Sickness Past Psychological History: Anxiety Smoking Status: Former smoker Past Alcohol Use History: None Reported Past Drug Use History: None Reported - Past Family History Mother Family Medical History: Cancer Father Family Medical History: Hypertension Additional Family Medical History / Comment(s): Brother(s) Family Medical History: Asthma, COPD, Hypertension Medications and Allergies Home Medications Medication Instructions Recorded Confirmed Type Omeprazole [PriLOSEC] 20 mg PO DAILY@0600 06/27/20 07/25/23 History Pioglitazone [Actos] 30 mg PO DAILY 06/27/20 07/25/23 History Rivaroxaban [Xarelto] 20 mg PO DAILY@1700 06/27/20 07/25/23 History Acetaminophen Tab [Tylenol] 650 mg PO Q6H PRN 05/25/23 07/25/23 History Atorvastatin [Lipitor] 20 mg PO HS 05/25/23 07/25/23 History Budesonide [Pulmicort] 0.5 mg INHALATION RT-BID 05/25/23 07/25/23 History Cetirizine HCl [Zyrtec] 10 mg PO DAILY 05/25/23 07/25/23 History Cholecalciferol [Vitamin D3 (25 25 mcg PO DAILY 05/25/23 07/25/23 History Mcg = 1000 Iu)] Empagliflozin [Jardiance] 10 mg PO DAILY 05/25/23 07/25/23 History Hydrophilic Cream [Triad (Kerodex 1 applic TOPICAL HS 05/25/23 07/25/23 History geq)] Hydrophilic Cream [Triad (Kerodex 1 applic TOPICAL Q12H PRN 05/25/23 07/25/23 History geq)] Insulin Lispro [humaLOG Kwikpen] See Protocol SQ QID 05/25/23 07/25/23 History Ipratropium-Albuterol Nebulize 3 ml INHALATION RT-Q6H 05/25/23 07/25/23 History [Duoneb 0.5 mg-3 mg/3 ml Soln] Metoprolol Tartrate [Lopressor] 25 mg PO BID 05/25/23 07/25/23 History Sennosides [Senokot] 8.6 mg PO BID 05/25/23 07/25/23 History Tirzepatide [Mounjaro] 7.5 mg SQ FR 05/25/23 07/25/23 History polyethylene glycoL 3350 [Miralax] 17 gm PO DAILY PRN 05/25/23 07/25/23 History Baclofen 10 mg PO BID 07/25/23 07/25/23 History Fluticasone Nasal Steen [Flonase 2 spr EA NOSTRIL DAILY 07/25/23 07/25/23 History Nasal Steen] Furosemide [Lasix] 60 mg PO DAILY 07/25/23 07/25/23 History HYDROcodone/APAP 7.5-325MG [[place] 1 tab PO TID 07/25/23 07/25/23 History 7.5-325] Insulin Degludec [Tresiba 30 units SQ DAILY 07/25/23 07/25/23 History Flextouch U-200 Pen] Naloxone HCl [Narcan] 4 mg NASAL DIRECTED PRN 07/25/23 07/25/23 History cefUROXime axetiL [Ceftin] 500 mg PO BID 07/25/23 07/25/23 History Allergies Allergy/AdvReac Type Severity Reaction Status Date / Time latex Allergy Rash/Hives Verified 07/25/23 18:07 Physical Examination - Vital Signs Vital Signs: Vital Signs Temp Pulse Resp BP Pulse Ox FiO2 07/26/23 13:41 98.2 F 76 20 116/65 97 07/26/23 09:00 98.2 F 76 20 116/82 98 07/26/23 06:01 78 19 149/79 95 07/26/23 04:32 68 20 110/64 98 07/26/23 02:37 69 20 155/83 98 07/26/23 01:33 19 96 07/26/23 01:31 96 07/26/23 01:05 21 07/26/23 00:39 79 20 131/64 95 07/25/23 19:36 53 L 18 119/108 91 L 07/25/23 18:43 54 L 18 119/98 99 07/25/23 16:31 43 L 16 128/88 100 Patient is a middle aged male, who is in no respiratory distress. Patient however appears delirious as mentioned above. Patient is hallucinating. Patient is alert awake oriented to time place and person. He says it is July and the year is 2002, but then corrected it to 2022. He knows he is in [facility] in [place]. Speech and language functions are normal. Patient can name and repeat very well. No aphasia or dysarthria. Attention, concentration is slightly impaired and fund of knowledge is adequate. Patient is confused. On cranial nerve examination, pupils are equal, round and reacting to light, visual willis are full on confrontation, with no neglect on double simultaneous stimulation. Extraocular muscles are intact with no nystagmus. Face is symmetr ic, tongue protrudes to the midline. Palatal elevation and sensation normal, hearing and shoulder shrug normal, facial sensation normal. On muscle strength testing, there is no pronator drift. The strength is (right/left) deltoid 4/5, biceps 4/5, triceps 5-/5, engineer soils 5/5, hip flexion 5-/5-, ankle dorsiflexion 4-/4-.patient claims he has peripheral neuropathy. Deep tendon reflexes are symmetric and plantars are flat. Sensory to touch is equal with no neglect on double simultaneous stimulation. Cerebellar function showed no ataxia for [id number] testing. No dysdiadochokinesia. No ataxia for [id number] testing on either side. Tone and bulk of muscles normal. Gait deferred.. On general examination, there is no carotid bruit or murmur, S1-S2 audible. Chest is clear on consultation. Abdomen is soft nontender. No organomegaly, bowel sounds present. Patient has peripheral edema. He has weeping ulcers in his right foot and leg. Results - Laboratory Findings CBC and BMP: 07/26/23 07:41 07/26/23 07:41 Abnormal Lab Findings: Abnormal Labs 07/25/23 07/25/23 07/25/23 09:22 09:22 09:22 Hgb 10.7 L Hct 35.2 L MCV 75.9 L D MCH 23.1 L MCHC 30.5 L RDW 17.8 H ABG pCO2 ABG HCO3 ABG Total CO2 ABG O2 Saturation Potassium 3.1 L Chloride 97 L Carbon Dioxide BUN 27 H Glucose 251 H POC Glucose (mg/dL) Plasma Lactic Acid Antony Albumin Urine Protein Urine Ketones Urine Mucus U Benzodiazepines Scrn Detected H Urine Cocaine Screen Detected H 07/25/23 07/25/23 07/25/23 09:22 09:22 09:36 Hgb Hct MCV MCH MCHC RDW ABG pCO2 52 H ABG HCO3 33 H ABG Total CO2 35 H ABG O2 Saturation 98.3 H Potassium Chloride Carbon Dioxide BUN Glucose POC Glucose (mg/dL) Plasma Lactic Acid Antony 2.3 H* Albumin Urine Protein Trace H Urine Ketones Trace H Urine Mucus Rare H U Benzodiazepines Scrn Urine Cocaine Screen 07/25/23 07/26/23 07/26/23 11:45 02:50 07:41 Hgb 10.4 L Hct 35.2 L MCV 77.5 L MCH 22.9 L MCHC 29.6 L RDW 17.9 H ABG pCO2 ABG HCO3 ABG Total CO2 ABG O2 Saturation Potassium Chloride Carbon Dioxide BUN Glucose POC Glucose (mg/dL) 230 H 137 H Plasma Lactic Acid Antony Albumin Urine Protein Urine Ketones Urine Mucus U Benzodiazepines Scrn Urine Cocaine Screen 07/26/23 07:41 Hgb Hct MCV MCH MCHC RDW ABG pCO2 ABG HCO3 ABG Total CO2 ABG O2 Saturation Potassium 3.4 L Chloride 97 L Carbon Dioxide 33 H BUN 22 H Glucose 133 H POC Glucose (mg/dL) Plasma Lactic Acid Antony Albumin 3.2 L Urine Protein Urine Ketones Urine Mucus U Benzodiazepines Scrn Urine Cocaine Screen Assessment and Plan Assessment: * Altered mental status, likely due to acute delirium. Reasons multifactorial as mentioned below. * Polysubstance abuse. Urine drug screen positive for cocaine and benzodiazepine. * Hypokalemia * Anemia * Diabetic foot ulcer and leg wound with seepage, ID on board. * Diabetic peripheral neuropathy * Diabetes not well controlled, with last A1c 7.4 on 05/26/2023 * Atrial fibrillation, on Xarelto 20 mg. * Hyperlipidemia, on Lipitor 20 mg * Hypertension * COPD/asthma Plan: * Patient appears to be delirious at this time, having hallucinations, likely due to multiple factors mentioned above. * Recommended absent from polysubstance abuse * Management of other medical conditions as per IM/ID. * Check B12, folate, TSH. Continue thiamine 100 mg daily. * Optimize control of diabetes, as per IM. * Patient has atrial fibrillation, will be continued on Xarelto 20 mg. * Neurology will follow clinically. Time with Patient: Greater than 30
[2023-07-27] MEDS: INSULIN DETEMIR (LEVEMIR) 100 UNIT/ML SYR SQ SCH (08:18)
[2023-07-27] MEDS: DAPAGLIFLOZIN PROPANEDIOL 5 MG TABLET PO SCH (08:18)
[2023-07-27] MEDS: INSULIN ASPART (NovoLOG) 100 UNIT/ML VIAL SQ SCH ×4 (08:18→21:05)
[2023-07-27] MEDS: BACLOFEN 10 MG TAB PO SCH ×2 (08:18→21:05)
[2023-07-27] MEDS: SENNOSIDES 8.6 MG TAB PO SCH ×2 (08:19→21:05)
[2023-07-27] MEDS: THIAMINE 100 MG TAB PO SCH (08:19)
[2023-07-27] MEDS: METOPROLOL TARTRATE 25 MG TAB PO SCH ×2 (08:19→21:05)
[2023-07-27] MEDS: PIOGLITAZONE 30 MG TAB PO SCH (08:19)
[2023-07-27] MEDS: LORATADINE 10 MG TAB PO SCH (08:19)
[2023-07-27] MEDS: CHOLECALCIFEROL 25 MCG (1000 IU) TABLET PO SCH (08:19)
[2023-07-27] MEDS: FUROSEMIDE 20 MG TAB PO SCH (08:23)
[2023-07-27] MEDS: PANTOPRAZOLE 40 MG/10 ML VIAL IV SCH (08:38)
[2023-07-27 09:49] LABS: Basophils # (A) 0.03 X 10*3/uL (0.00-0.10); Basophils % (A) 0.5 %; Eosinophils # (A) 0.19 X 10*3/uL (0.04-0.35); Eosinophils % (A) 3.1 %; HCT 38.5 % (39.6-50.0); HGB 10.5 g/dL (13.0-17.0); Lymphocytes # (A) 1.88 X 10*3/uL (0.90-5.00); Lymphocytes % (A) 31.1 %; MCH 21.4 pg (27.0-32.0); MCHC 27.3 g/dL (32.0-37.0); MCV 78.4 FL (80.0-97.0); Mean Platelet Volume 9.2 FL (9.5-12.2); Monocytes # (A) 0.65 X 10*3/uL (0.20-1.00); Monocytes % (A) 10.8 %; NRBC Per 100 WBC 0 X 10*3/uL (0.00-0.01); Neutrophils # (A) 3.28 X 10*3/uL (1.80-7.70); Neutrophils % (A) 54.3 %; Platelet Count 445 X 10*3/uL (140-440); RBC 4.91 X 10*6/uL (4.40-5.60); RDW 18.5 % (11.5-14.5); WBC 6.04 X 10*3/uL (4.50-10.00)
[2023-07-27 10:16] LABS: BUN/Creat Ratio 23.75 Ratio (12.00-20.00); Carbon Dioxide 32.1 mmol/L (21.6-31.8); Chloride 100 mmol/L (96-109); Glucose 148 mg/dL (70-110); Potassium 3.6 mmol/L (3.5-5.5); Sodium 143 mmol/L (135-145)
[2023-07-27 10:17] LABS: Calcium 9.3 mg/dL (8.7-10.3)
[2023-07-27] MEDS: SODIUM CHLORIDE 0.9% 1,000 ML IV SCH ×2 (10:34→21:06)
[2023-07-27] MEDS: FLUTICASONE 50MCG/SPRAY NASAL 16GM EA NOSTRIL SCH (11:12)
[2023-07-27 12:24] LABS: Glucose,Whole Blood 198 mg/dL (70-110)
--- NOTE | 2023-07-27 16:31 | P.PN ---
Subjective Progress Note Date: 07/27/23 62-year-old male history of hypertension, hyperlipidemia, diabetes mellitus, atrial fibrillation presenting to the emergency department by EMS. Patient presents for change in mental status. Patient is very drowsy and a poor historian. Patient is arousable to touch but still limited to providing history . Patient denies taking any medication's or overdose or thoughts of self-harm. No reported trauma. EMS did try 2 of Narcan without improvement of symptoms. patient with the right diabetic foot ulcer with a wound on the dorsal aspect of the right foot patient did have swelling to the right foot but no significant redness patient is not running any fever and white count has been normal will recommend local wound care with Medihoney followed by moist dressing change daily -we will monitor the patient closely off antibiotic therapy Patient is awake and alert but remains confused and restless; concern about possible benzodiazepine withdrawal; patient has been placed on CIWA protocol 07/27/2023 Patient is seen and evaluated resting in bed; more awake and oriented Vital signs are stable Lab review shows WBC of 9.7, hemoglobin of 11.5 and platelet count of 234, so dium improved from 124-128 this morning, potassium 2.9, BUN/creatinine of 9.1/0.6 -- PT/OT are consulted; plan is possible placement Objective - Vital Signs Vital signs: Vital Signs Temp 98.4 F 07/27/23 07:30 Pulse 77 07/27/23 11:56 Resp 18 07/27/23 07:30 BP 108/66 07/27/23 07:30 Pulse Ox 92 L 07/27/23 07:30 FiO2 21 07/26/23 01:05 Intake & Output 07/26/23 07/27/23 07/27/23 18:59 06:59 18:59 Output Total 200 300 Balance -200 -300 Weight 172.365 kg 194.5 kg Output: Urine 200 300 Other: Voiding Method Indwelling Catheter Indwelling Catheter - Exam General appearance: Drowsy. Arousable to touch and verbal stimulation Head exam: Present: atraumatic Eye exam: Present: normal appearance, PERRL Neck exam: Present: normal inspection. Absent: tenderness, meningismus Respiratory exam: Present: normal lung sounds bilaterally Cardiovascular Exam: Present: regular rate, normal rhythm GI/Abdominal exam: Present: soft. Absent: tenderness Extremities exam: Present: normal inspection Neurological exam: Present: person, place. Absent: time Motor strength exam: RUE: 5, LUE: 5, RLE: 5, LLE: 5 Eye Response: (2) open to pain Motor Response: (6) obeys commands Verbal Response: (4) confused conversation Psychiatric exam: Present: flat affect Skin exam: Present: other (Right dorsal foot with approximately 4 x 4 centimeter ulcer with foul odor. Stage III.) - Labs CBC & Chem 7: 07/27/23 05:49 07/27/23 05:49 Labs: Abnormal Lab Results - Last 24 Hours (Table) 07/26/23 07/26/23 07/27/23 Range/Units 17:27 20:42 05:49 Hgb (13.0-17.0) g/dL Hct (39.6-50.0) % MCV (80.0-97.0) FL MCH (27.0-32.0) pg MCHC (32.0-37.0) g/dL RDW (11.5-14.5) % Plt Count (140-440) X 10*3/uL MPV (9.5-12.2) FL Carbon Dioxide (21.6-31.8) mmol/L BUN/Creatinine Ratio (12.00-20.00) Ratio Glucose (70-110) mg/dL POC Glucose (mg/dL) 176 H 158 H (70-110) mg/dL Hemoglobin A1c 7.9 H (<=6.0) % 07/27/23 07/27/23 07/27/23 Range/Units 05:49 05:49 07:26 Hgb 10.5 L (13.0-17.0) g/dL Hct 38.5 L (39.6-50.0) % MCV 78.4 L (80.0-97.0) FL MCH 21.4 L (27.0-32.0) pg MCHC 27.3 L (32.0-37.0) g/dL RDW 18.5 H (11.5-14.5) % Plt Count 445 H (140-440) X 10*3/uL MPV 9.2 L (9.5-12.2) FL Carbon Dioxide 32.1 H (21.6-31.8) mmol/L BUN/Creatinine Ratio 23.75 H (12.00-20.00) Ratio Glucose 148 H (70-110) mg/dL POC Glucose (mg/dL) 166 H (70-110) mg/dL Hemoglobin A1c (<=6.0) % 07/27/23 Range/Units 12:19 Hgb (13.0-17.0) g/dL Hct (39.6-50.0) % MCV (80.0-97.0) FL MCH (27.0-32.0) pg MCHC (32.0-37.0) g/dL RDW (11.5-14.5) % Plt Count (140-440) X 10*3/uL MPV (9.5-12.2) FL Carbon Dioxide (21.6-31.8) mmol/L BUN/Creatinine Ratio (12.00-20.00) Ratio Glucose (70-110) mg/dL POC Glucose (mg/dL) 198 H (70-110) mg/dL Hemoglobin A1c (<=6.0) % Microbiology - Last 24 Hours (Table) 07/25/23 11:34 Gram Stain - Preliminary Foot - Right Wound Culture - Preliminary Gram Neg Bacilli Group D Enterococcus 07/25/23 09:30 Blood Culture - Preliminary Blood 07/25/23 09:15 Blood Culture - Preliminary Blood Assessment and Plan Assessment: 1. Altered mental status -- Polysubstance abuse; urine drug screen is positive for cocaine and benzodiazepines; patient did receive Narcan in ED without much improvement - Patient is being admitted for further neuro monitoring 2. Mild AK I; P fluid hydration with normal saline at a rate of 100 mL an hour; monitor strict VICKEY's, daily weights, renal function and electrolytes; avoid nephrotoxins and hypotension 3. Hypokalemia; supplemented in ED; monitor electrolytes closely and supplement as needed 4. Hyperglycemia; uncontrolled; monitor Accu-Cheks closely and adjust insulin sliding scale 5. Hypertension; metoprolol 25 mg daily. 6. Atrial fibrillation; rate controlled on metoprolol; Xarelto 20 mg daily for anticoagulation 7. Hyperlipidemia; Lipitor 20 mg by mouth daily at bedtime 8. COPD/asthma; not in exacerbation; continue with home therapy DVT prophylaxis; Xarelto CODE STATUS; full code
[2023-07-27 17:20] LABS: Glucose,Whole Blood 180 mg/dL (70-110)
--- NOTE | 2023-07-27 17:35 | P.PN ---
Subjective Progress Note Date: 07/27/23 Patient was seen for a follow-up. Patient is laying comfortably in the bed. Appears much more alert and awake. No distress. Patient states he feels very good. Patient denies any drug use. Objective - Vital Signs Vital signs: Vital Signs Temp 98.3 F 07/27/23 12:13 Pulse 86 07/27/23 15:39 Resp 18 07/27/23 12:13 BP 126/71 07/27/23 12:13 Pulse Ox 94 L 07/27/23 12:13 FiO2 21 07/26/23 01:05 Intake & Output 07/26/23 07/27/23 07/27/23 18:59 06:59 18:59 Output Total 200 300 Balance -200 -300 Weight 172.365 kg 194.5 kg Output: Urine 200 300 Other: Voiding Method Indwelling Catheter Indwelling Catheter - Exam Patient is alert and awake, affect appears much more normal. He is now more delirious. He knows it is [facility], July 2023. He knows that he is in [facility]. Speech and language functions are normal. Cranial nerves are normal. Patient has a very bad ulcer over the dorsum of the right foot. - Labs CBC & Chem 7: 07/27/23 05:49 07/27/23 05:49 Labs: Abnormal Lab Results - Last 24 Hours (Table) 07/26/23 07/26/23 07/27/23 Range/Units 17:27 20:42 05:49 Hgb (13.0-17.0) g/dL Hct (39.6-50.0) % MCV (80.0-97.0) FL MCH (27.0-32.0) pg MCHC (32.0-37.0) g/dL RDW (11.5-14.5) % Plt Count (140-440) X 10*3/uL MPV (9.5-12.2) FL Carbon Dioxide (21.6-31.8) mmol/L BUN/Creatinine Ratio (12.00-20.00) Ratio Glucose (70-110) mg/dL POC Glucose (mg/dL) 176 H 158 H (70-110) mg/dL Hemoglobin A1c 7.9 H (<=6.0) % Folate (4.40-31.00) ng/mL 07/27/23 07/27/23 07/27/23 Range/Units 05:49 05:49 05:49 Hgb 10.5 L (13.0-17.0) g/dL Hct 38.5 L (39.6-50.0) % MCV 78.4 L (80.0-97.0) FL MCH 21.4 L (27.0-32.0) pg MCHC 27.3 L (32.0-37.0) g/dL RDW 18.5 H (11.5-14.5) % Plt Count 445 H (140-440) X 10*3/uL MPV 9.2 L (9.5-12.2) FL Carbon Dioxide 32.1 H (21.6-31.8) mmol/L BUN/Creatinine Ratio 23.75 H (12.00-20.00) Ratio Glucose 148 H (70-110) mg/dL POC Glucose (mg/dL) (70-110) mg/dL Hemoglobin A1c (<=6.0) % Folate 4.00 L (4.40-31.00) ng/mL 07/27/23 07/27/23 07/27/23 Range/Units 07:26 12:19 17:19 Hgb (13.0-17.0) g/dL Hct (39.6-50.0) % MCV (80.0-97.0) FL MCH (27.0-32.0) pg MCHC (32.0-37.0) g/dL RDW (11.5-14.5) % Plt Count (140-440) X 10*3/uL MPV (9.5-12.2) FL Carbon Dioxide (21.6-31.8) mmol/L BUN/Creatinine Ratio (12.00-20.00) Ratio Glucose (70-110) mg/dL POC Glucose (mg/dL) 166 H 198 H 180 H (70-110) mg/dL Hemoglobin A1c (<=6.0) % Folate (4.40-31.00) ng/mL Microbiology - Last 24 Hours (Table) 07/25/23 09:30 Blood Culture - Preliminary Blood 07/25/23 09:15 Blood Culture - Preliminary Blood 07/25/23 11:34 Gram Stain - Preliminary Foot - Right Wound Culture - Preliminary Gram Neg Bacilli Group D Enterococcus Assessment and Plan Assessment: * Altered mental status, likely due to acute delirium. Reasons multifactorial as mentioned below. Delirium much improved. * Polysubstance abuse. Urine drug screen positive for cocaine and benzodiazepine. * Hypokalemia * Anemia * Diabetic foot ulcer and leg wound with seepage, ID on board. * Diabetic peripheral neuropathy * Diabetes not well controlled, with last A1c 7.4 on 05/26/2023 * Atrial fibrillation, on Xarelto 20 mg. * Hyperlipidemia, on Lipitor 20 mg * Hypertension * COPD/asthma * Folate deficiency Plan: * Patient's delirium seems to be much improved. * Recommended abstinence from polysubstance abuse * Management of other medical conditions including foot ulcer as per IM/ID. * B12 430, folate 4.00, TSH 7.9, with free T4 0.557. Patient will be started on B12 and folate replacement. Continue thiamine 100 mg daily. * Optimize control of diabetes, as per IM. * Patient has atrial fibrillation, will be continued on Xarelto 20 mg. * Neurologically patient is clear.
[2023-07-27] MEDS: CYANOCOBALAMIN 500 MCG TAB PO SCH (18:00)
[2023-07-27] MEDS: FOLIC ACID 1 MG TAB PO SCH (18:00)
[2023-07-27] MEDS: RIVAROXABAN 20 MG TAB PO SCH (18:01)
[2023-07-27 20:16] LABS: Glucose,Whole Blood 167 mg/dL (70-110)
[2023-07-27] MEDS: ATORVASTATIN 20 MG TAB PO SCH (21:05)
[2023-07-28] MEDS: HYDROcodone/APAP 7.5-325MG 1 EACH TAB PO SCH ×3 (06:45→20:18)
--- NOTE | 2023-07-28 07:19 | P.PN ---
Subjective Progress Note Date: 07/27/23 Principal diagnosis: Reason for follow up his right leg and right foot diabetic foot wound Patient is a 62-year-old male with a past medical history significant for diabetes mellitus hypertension hyperlipidemia atrial fibrillation patient has been brought into the ER by EMS concern for mental status changes, patient also noticed to have a right foot and leg wound prompting this infectious disease consultation patient mention he has this wound for a couple of weeks now and is being treated by his primary care physician weekly and recently completed a course of antibiotic however the patient unclear about the name of those antibiotics On today's evaluation that is 07/27/2023 the patient remains to be afebrile the patient is more awake and alert the patient is breathing comfortably on room air without need for supplemental oxygen patient denies having any chest pain shortness of breath or cough no nausea vomiting no abdominal pain or any worsening pain to the right lower extremity wound area. Patient did have white count of 6.04, creatinine 0.8 Objective - Vital Signs Vital signs: Vital Signs Temp 98.3 F 07/27/23 12:13 Pulse 93 07/27/23 12:13 Resp 18 07/27/23 12:13 BP 126/71 07/27/23 12:13 Pulse Ox 94 L 07/27/23 12:13 FiO2 21 07/26/23 01:05 Intake & Output 07/26/23 07/27/23 07/27/23 18:59 06:59 18:59 Output Total 200 300 Balance -200 -300 Weight 172.365 kg 194.5 kg Output: Urine 200 300 Other: Voiding Method Indwelling Catheter Indwelling Catheter - Labs CBC & Chem 7: 07/27/23 05:49 07/27/23 05:49 Labs: Abnormal Lab Results - Last 24 Hours (Table) 07/26/23 07/26/23 07/27/23 Range/Units 17:27 20:42 05:49 Hgb (13.0-17.0) g/dL Hct (39.6-50.0) % MCV (80.0-97.0) FL MCH (27.0-32.0) pg MCHC (32.0-37.0) g/dL RDW (11.5-14.5) % Plt Count (140-440) X 10*3/uL MPV (9.5-12.2) FL Carbon Dioxide (21.6-31.8) mmol/L BUN/Creatinine Ratio (12.00-20.00) Ratio Glucose (70-110) mg/dL POC Glucose (mg/dL) 176 H 158 H (70-110) mg/dL Hemoglobin A1c 7.9 H (<=6.0) % Folate (4.40-31.00) ng/mL 07/27/23 07/27/23 07/27/23 Range/Units 05:49 05:49 05:49 Hgb 10.5 L (13.0-17.0) g/dL Hct 38.5 L (39.6-50.0) % MCV 78.4 L (80.0-97.0) FL MCH 21.4 L (27.0-32.0) pg MCHC 27.3 L (32.0-37.0) g/dL RDW 18.5 H (11.5-14.5) % Plt Count 445 H (140-440) X 10*3/uL MPV 9.2 L (9.5-12.2) FL Carbon Dioxide 32.1 H (21.6-31.8) mmol/L BUN/Creatinine Ratio 23.75 H (12.00-20.00) Ratio Glucose 148 H (70-110) mg/dL POC Glucose (mg/dL) (70-110) mg/dL Hemoglobin A1c (<=6.0) % Folate 4.00 L (4.40-31.00) ng/mL 07/27/23 07/27/23 Range/Units 07:26 12:19 Hgb (13.0-17.0) g/dL Hct (39.6-50.0) % MCV (80.0-97.0) FL MCH (27.0-32.0) pg MCHC (32.0-37.0) g/dL RDW (11.5-14.5) % Plt Count (140-440) X 10*3/uL MPV (9.5-12.2) FL Carbon Dioxide (21.6-31.8) mmol/L BUN/Creatinine Ratio (12.00-20.00) Ratio Glucose (70-110) mg/dL POC Glucose (mg/dL) 166 H 198 H (70-110) mg/dL Hemoglobin A1c (<=6.0) % Folate (4.40-31.00) ng/mL Microbiology - Last 24 Hours (Table) 07/25/23 11:34 Gram Stain - Preliminary Foot - Right Wound Culture - Preliminary Gram Neg Bacilli Group D Enterococcus 07/25/23 09:30 Blood Culture - Preliminary Blood 07/25/23 09:15 Blood Culture - Preliminary Blood Assessment and Plan (1) Diabetic foot ulcer associated with type 2 diabetes mellitus, with fat layer exposed Current Visit: Yes Status: Acute Code(s): E11.621 - TYPE 2 DIABETES MELLITUS WITH FOOT ULCER; L97.502 - NON-PRS CHRONIC ULCER OTH PRT UNSP FOOT W FAT LAYER EXPOSED SNOMED Code(s): 5580419214047 (2) Leg wound, right Current Visit: Yes Status: Acute Code(s): S81.801A - UNSPECIFIED OPEN WOUND, RIGHT LOWER LEG, INITIAL ENCOUNTER SNOMED Code(s): 906288422 Plan: 1patient with the right diabetic foot ulcer with a wound on the dorsal aspect of the right foot patient did have swelling to the right foot but no significant redness patient is not running any fever and white count has been normal 2we will ask vascular surgery for debridement of his right foot wound and need for any deep culture [facility] this was discussed with the nursing staff as the patient not currently fever we will hold on any systemic antibiotic therapy at this point Dictation was produced using [employer] dictation software. please excuse any gram matical, word or spelling errors.
[2023-07-28 07:25] LABS: Glucose,Whole Blood 132 mg/dL (70-110)
[2023-07-28] MEDS: BUDESONIDE 0.5 MG/2 ML NEBU INHALATION SCH ×2 (08:41→20:20)
[2023-07-28] MEDS: IPRATROPIUM-ALBUTEROL 3 ML NEB INHALATION SCH ×4 (08:41→20:20)
[2023-07-28] MEDS: SENNOSIDES 8.6 MG TAB PO SCH ×2 (09:15→20:18)
[2023-07-28] MEDS: CYANOCOBALAMIN 500 MCG TAB PO SCH (09:15)
[2023-07-28] MEDS: THIAMINE 100 MG TAB PO SCH (09:15)
[2023-07-28] MEDS: PIOGLITAZONE 30 MG TAB PO SCH (09:15)
[2023-07-28] MEDS: DAPAGLIFLOZIN PROPANEDIOL 5 MG TABLET PO SCH (09:15)
[2023-07-28] MEDS: METOPROLOL TARTRATE 25 MG TAB PO SCH ×2 (09:15→20:19)
[2023-07-28] MEDS: INSULIN DETEMIR (LEVEMIR) 100 UNIT/ML SYR SQ SCH (09:16)
[2023-07-28] MEDS: BACLOFEN 10 MG TAB PO SCH ×2 (09:16→20:18)
[2023-07-28] MEDS: CHOLECALCIFEROL 25 MCG (1000 IU) TABLET PO SCH (09:16)
[2023-07-28] MEDS: INSULIN ASPART (NovoLOG) 100 UNIT/ML VIAL SQ SCH ×4 (09:16→21:02)
[2023-07-28] MEDS: FOLIC ACID 1 MG TAB PO SCH (09:16)
[2023-07-28] MEDS: FUROSEMIDE 20 MG TAB PO SCH (09:16)
[2023-07-28] MEDS: LORATADINE 10 MG TAB PO SCH (09:16)
[2023-07-28] MEDS: PANTOPRAZOLE 40 MG/10 ML VIAL IV SCH (09:17)
[2023-07-28] MEDS: ERTAPENEM 1 GM in SODIUM CHLORIDE 0.9% 50 ML IVPB SCH (09:17)
[2023-07-28 10:45] LABS: Basophils # (A) 0.04 X 10*3/uL (0.00-0.10); Basophils % (A) 0.4 %; Eosinophils # (A) 0.32 X 10*3/uL (0.04-0.35); Eosinophils % (A) 3.6 %; HCT 36.5 % (39.6-50.0); HGB 10.2 g/dL (13.0-17.0); Lymphocytes # (A) 2.17 X 10*3/uL (0.90-5.00); Lymphocytes % (A) 24.2 %; MCH 21.8 pg (27.0-32.0); MCHC 27.9 g/dL (32.0-37.0); Mean Platelet Volume 9.1 FL (9.5-12.2); Monocytes # (A) 1.05 X 10*3/uL (0.20-1.00); Monocytes % (A) 11.7 %; NRBC Per 100 WBC 0 X 10*3/uL (0.00-0.01); Neutrophils # (A) 5.35 X 10*3/uL (1.80-7.70); Neutrophils % (A) 59.8 %; Platelet Count 389 X 10*3/uL (140-440); RBC 4.68 X 10*6/uL (4.40-5.60); RDW 18.5 % (11.5-14.5); WBC 8.96 X 10*3/uL (4.50-10.00)
[2023-07-28 11:04] LABS: Calcium 9.2 mg/dL (8.7-10.3); Carbon Dioxide 32.9 mmol/L (21.6-31.8); Chloride 97 mmol/L (96-109); Glucose 129 mg/dL (70-110); Potassium 3.6 mmol/L (3.5-5.5); Sodium 140 mmol/L (135-145)
[2023-07-28] MEDS: SODIUM CHLORIDE 0.9% 1,000 ML IV SCH (11:34)
[2023-07-28 12:07] LABS: Glucose,Whole Blood 152 mg/dL (70-110)
[2023-07-28] MEDS: FLUTICASONE 50MCG/SPRAY NASAL 16GM EA NOSTRIL SCH (13:00)
[2023-07-28] MEDS ORDERED: LIDOCAINE 1% INJ 10MG/ML (20 ML MDV) SQ ONE (13:15)
--- NOTE | 2023-07-28 16:04 | P.PN ---
Subjective Progress Note Date: 07/28/23 Principal diagnosis: Reason for follow up his right leg and right foot diabetic foot wound Patient is a 62-year-old male with a past medical history significant for diabetes mellitus hypertension hyperlipidemia atrial fibrillation patient has been brought into the ER by EMS concern for mental status changes, patient also noticed to have a right foot and leg wound prompting this infectious disease consultation patient mention he has this wound for a couple of weeks now and is being treated by his primary care physician weekly and recently completed a course of antibiotic however the patient unclear about the name of those antibiotics On today's evaluation that is 07/28/2023 the patient remains to be afebrile patient is breathing comfortably on room air patient denies having any chest pain shortness of breath or cough no nausea vomiting no abdominal pain no di arrhea denies any worsening pain to the right foot wound. Patient did have white count of 8.96, creatinine 0.9 patient did have some superficial culture obtained which did grow ESBL Klebsiella and Enterococcus Objective - Vital Signs Vital signs: Vital Signs Temp 98.2 F 07/28/23 12:38 Pulse 82 07/28/23 15:48 Resp 17 07/28/23 12:38 BP 118/74 07/28/23 12:38 Pulse Ox 92 L 07/28/23 12:38 FiO2 21 07/26/23 01:05 Intake & Output 07/27/23 07/28/23 07/28/23 18:59 06:59 18:59 Intake Total 590 Output Total 774 914 0249 Balance -550 190 -1250 Weight 193 kg Intake: Oral 590 Output: Urine 333 089 8161 Other: Voiding Method Indwelling Catheter Indwelling Catheter Indwelling Catheter # Bowel Movements 1 - Exam GENERAL DESCRIPTION: Middle-age male lying in bed in no distress RESPIRATORY SYSTEM: Unlabored breathing , decreased breath sounds at bases HEART: S1 S2 regular rate and rhythm , ABDOMEN: Soft , no tenderness EXTREMITIES: Right lower leg did have 2 wounds to the upper wound did have no slough tissue surrounding redness lower wound seem to be mostly healed with no redness or any drainage. The patient right foot dorsal wound with some slough tissue and a swelling but no redness or foul-smelling drainage. - Labs CBC & Chem 7: 07/28/23 06:30 07/28/23 06:30 Labs: Abnormal Lab Results - Last 24 Hours (Table) 07/27/23 07/27/23 07/28/23 Range/Units 17:19 20:15 06:30 Hgb (13.0-17.0) g/dL Hct (39.6-50.0) % MCV (80.0-97.0) FL MCH (27.0-32.0) pg MCHC (32.0-37.0) g/dL RDW (11.5-14.5) % MPV (9.5-12.2) FL Monocytes # (0.20-1.00) X 10*3/uL Carbon Dioxide 32.9 H (21.6-31.8) mmol/L Glucose 129 H (70-110) mg/dL POC Glucose (mg/dL) 180 H 167 H (70-110) mg/dL 07/28/23 07/28/23 07/28/23 Range/Units 06:30 07:23 12:06 Hgb 10.2 L (13.0-17.0) g/dL Hct 36.5 L (39.6-50.0) % MCV 78.0 L (80.0-97.0) FL MCH 21.8 L (27.0-32.0) pg MCHC 27.9 L (32.0-37.0) g/dL RDW 18.5 H (11.5-14.5) % MPV 9.1 L (9.5-12.2) FL Monocytes # 1.05 H (0.20-1.00) X 10*3/uL Carbon Dioxide (21.6-31.8) mmol/L Glucose (70-110) mg/dL POC Glucose (mg/dL) 132 H 152 H (70-110) mg/dL Microbiology - Last 24 Hours (Table) 07/25/23 11:34 Gram Stain - Final Foot - Right Wound Culture - Final Enterococcus faecalis Klebsiella pneumoniae Providencia rettgeri 07/25/23 11:34 Anaerobic Culture - Preliminary Foot - Right 07/25/23 09:30 Blood Culture - Preliminary Blood 07/25/23 09:15 Blood Culture - Preliminary Blood Assessment and Plan (1) Diabetic foot ulcer associated with type 2 diabetes mellitus, with fat layer exposed Current Visit: Yes Status: Acute Code(s): E11.621 - TYPE 2 DIABETES MELLITUS WITH FOOT ULCER; L97.502 - NON-PRS CHRONIC ULCER OTH PRT UNSP FOOT W FAT LAYER EXPOSED SNOMED Code(s): 1533573133196 (2) Leg wound, right Current Visit: Yes Status: Acute Code(s): S81.801A - UNSPECIFIED OPEN WOUND, RIGHT LOWER LEG, INITIAL ENCOUNTER SNOMED Code(s): 192114114 Plan: 1patient with the right diabetic foot ulcer with a wound on the dorsal aspect of the right foot patient did have swelling to the right foot but no significant redness patient is not running any fever and white count has been normal 2patient is currently waiting for vascular surgery evaluation debridement and deep culture with a superficial culture growing ESBL Klebsiella and Enterococcus with a question of possible colonization underlying infection not entirely e xcluded empirically covered with Invanz await vascular surgery evaluation Dictation was produced using [employer] dictation software. please excuse any grammatical, word or spelling errors. Time with Patient: Less than 30
--- NOTE | 2023-07-28 16:39 | P.GSHP ---
History of Present Illness 62-year-old gentleman consulted for wound right foot dorsum aspect and right lower extremity. Patient was under care of family physician patient was treated with antibiotic and was treated by home care nurse for local wound care. A ccording to patient he has this symptom for the past 3 weeks Medical history history of diabetes, hypertension, atrial fibrillation patient is on [place] patient also has a superobesity Chest few crackles the lung bases first and second sound present Abdomen is soft nontender Femorals are 1+ bilateral patient has a wound on the dorsal aspect the right foot measurement is 4 x 4 CM with deviated last tissue and superficial ulcer noted on the right lower extremity at the barba area Plan is debridement of the wound with deep culture Past Medical History Past Medical History: Atrial Fibrillation, CVA/TIA, Diabetes Mellitus, GERD/Reflux, Hyperlipidemia, Hypertension, Sleep Apnea/CPAP/BIPAP Additional Past Medical History / Comment(s): diabetic neuropathy, "leaky valve", frequent foot & ankle swelling, USES C-PAP, shortness of breath, unable to walk distances. rhabdo History of Any Multi-Drug Resistant Organisms: None Reported Past Surgical History: Bariatric Surgery, Hernia Repair Additional Past Surgical History / Comment(s): GASTRIC SLEEVE. EGD Past Anesthesia/Blood Transfusion Reactions: No Reported Reaction, Motion Sickness Past Psychological History: Anxiety Smoking Status: Former smoker Past Alcohol Use History: None Reported Past Drug Use History: None Reported - Past Family History Mother Family Medical History: Cancer Additional Family Medical History / Comment(s): Father Family Medical History: Hypertension Additional Family Medical History / Comment(s): Brother(s) Family Medical History: Asthma, COPD, Hypertension Medications and Allergies Home Medications Medication Instructions Recorded Confirmed Type Omeprazole [PriLOSEC] 20 mg PO DAILY@0600 06/27/20 07/25/23 History Pioglitazone [Actos] 30 mg PO DAILY 06/27/20 07/25/23 History Rivaroxaban [Xarelto] 20 mg PO DAILY@1700 06/27/20 07/25/23 History Acetaminophen Tab [Tylenol] 650 mg PO Q6H PRN 05/25/23 07/25/23 History Atorvastatin [Lipitor] 20 mg PO HS 05/25/23 07/25/23 History Budesonide [Pulmicort] 0.5 mg INHALATION RT-BID 05/25/23 07/25/23 History Cetirizine HCl [Zyrtec] 10 mg PO DAILY 05/25/23 07/25/23 History Cholecalciferol [Vitamin D3 (25 25 mcg PO DAILY 05/25/23 07/25/23 History Mcg = 1000 Iu)] Empagliflozin [Jardiance] 10 mg PO DAILY 05/25/23 07/25/23 History Hydrophilic Cream [Triad (Kerodex 1 applic TOPICAL HS 05/25/23 07/25/23 History geq)] Hydrophilic Cream [Triad (Kerodex 1 applic TOPICAL Q12H PRN 05/25/23 07/25/23 History geq)] Insulin Lispro [humaLOG Kwikpen] See Protocol SQ QID 05/25/23 07/25/23 History Ipratropium-Albuterol Nebulize 3 ml INHALATION RT-Q6H 05/25/23 07/25/23 History [Duoneb 0.5 mg-3 mg/3 ml Soln] Metoprolol Tartrate [Lopressor] 25 mg PO BID 05/25/23 07/25/23 History Sennosides [Senokot] 8.6 mg PO BID 05/25/23 07/25/23 History Tirzepatide [Mounjaro] 7.5 mg SQ FR 05/25/23 07/25/23 History polyethylene glycoL 3350 [Miralax] 17 gm PO DAILY PRN 05/25/23 07/25/23 History Baclofen 10 mg PO BID 07/25/23 07/25/23 History Fluticasone Nasal [place] [Flonase 2 spr EA NOSTRIL DAILY 07/25/23 07/25/23 History Nasal [place]] Furosemide [Lasix] 60 mg PO DAILY 07/25/23 07/25/23 History HYDROcodone/APAP 7.5-325MG [[place] 1 tab PO TID 07/25/23 07/25/23 History 7.5-325] Insulin Degludec [Tresiba 30 units SQ DAILY 07/25/23 07/25/23 History Flextouch U-200 Pen] Naloxone HCl [Narcan] 4 mg NASAL DIRECTED PRN 07/25/23 07/25/23 History cefUROXime axetiL [Ceftin] 500 mg PO BID 07/25/23 07/25/23 History Allergies Allergy/AdvReac Type Severity Reaction Status Date / Time latex Allergy Rash/Hives Verified 07/25/23 18:07 Surgical - Exam Vital Signs Temp Pulse Resp BP Pulse Ox 97.6 F 57 L 16 119/85 89 L 07/25/23 09:05 07/25/23 09:05 07/25/23 09:05 07/25/23 09:05 07/25/23 09:05 Results - Labs 07/28/23 06:30 07/28/23 06:30 Abnormal Lab Results - Last 24 Hours (Table) 07/27/23 07/27/23 07/28/23 Range/Units 17:19 20:15 06:30 Hgb (13.0-17.0) g/dL Hct (39.6-50.0) % MCV (80.0-97.0) FL MCH (27.0-32.0) pg MCHC (32.0-37.0) g/dL RDW (11.5-14.5) % MPV (9.5-12.2) FL Monocytes # (0.20-1.00) X 10*3/uL Carbon Dioxide 32.9 H (21.6-31.8) mmol/L Glucose 129 H (70-110) mg/dL POC Glucose (mg/dL) 180 H 167 H (70-110) mg/dL 07/28/23 07/28/23 07/28/23 Range/Units 06:30 07:23 12:06 Hgb 10.2 L (13.0-17.0) g/dL Hct 36.5 L (39.6-50.0) % MCV 78.0 L (80.0-97.0) FL MCH 21.8 L (27.0-32.0) pg MCHC 27.9 L (32.0-37.0) g/dL RDW 18.5 H (11.5-14.5) % MPV 9.1 L (9.5-12.2) FL Monocytes # 1.05 H (0.20-1.00) X 10*3/uL Carbon Dioxide (21.6-31.8) mmol/L Glucose (70-110) mg/dL POC Glucose (mg/dL) 132 H 152 H (70-110) mg/dL Microbiology - Last 24 Hours (Table) 07/25/23 11:34 Gram Stain - Final Foot - Right Wound Culture - Final Enterococcus faecalis Klebsiella pneumoniae Providencia rettgeri 07/25/23 11:34 Anaerobic Culture - Preliminary Foot - Right 07/25/23 09:30 Blood Culture - Preliminary Blood 07/25/23 09:15 Blood Culture - Preliminary Blood Diabetes panel 07/28/23 Range/Units 06:30 Sodium 140 (135-145) mmol/L Potassium 3.6 (3.5-5.5) mmol/L Chloride 97 (96-109) mmol/L Carbon Dioxide 32.9 H (21.6-31.8) mmol/L BUN 18.0 (9.0-27.0) mg/dL Creatinine 0.9 (0.6-1.5) mg/dL Glucose 129 H (70-110) mg/dL Calcium 9.2 (8.7-10.3) mg/dL Calcium panel 07/28/23 Range/Units 06:30 Calcium 9.2 (8.7-10.3) mg/dL Pituitary panel 07/28/23 Range/Units 06:30 Sodium 140 (135-145) mmol/L Potassium 3.6 (3.5-5.5) mmol/L Chloride 97 (96-109) mmol/L Carbon Dioxide 32.9 H (21.6-31.8) mmol/L BUN 18.0 (9.0-27.0) mg/dL Creatinine 0.9 (0.6-1.5) mg/dL Glucose 129 H (70-110) mg/dL Calcium 9.2 (8.7-10.3) mg/dL Adrenal panel 07/28/23 Range/Units 06:30 Sodium 140 (135-145) mmol/L Potassium 3.6 (3.5-5.5) mmol/L Chloride 97 (96-109) mmol/L Carbon Dioxide 32.9 H (21.6-31.8) mmol/L BUN 18.0 (9.0-27.0) mg/dL Creatinine 0.9 (0.6-1.5) mg/dL Glucose 129 H (70-110) mg/dL Calcium 9.2 (8.7-10.3) mg/dL
--- NOTE | 2023-07-28 16:42 | P.PCN ---
Description of Procedure: Preop diagnosis right foot wound measurement is 4 x 4 CM Postop measurement is 4 x 4 x 0.5 cm Right foot was prepped and 1% lidocaine were infiltrated patient had a debridement knife we excise the wound with sharp nice all the way down to the tendon were exposed on the [place] to the stitches were excised which was sent for deep culture active bleeding was noted wound was irrigated irrigated with saline Santyl cream applied to the wound dressing applied patient are to the procedure well dressing will be changed tomorrow we will follow with you
[2023-07-28] MEDS: COLLAGENASE 250 UNIT/GM OINTMENT 30 GM TUBE TOPICAL SCH (16:51)
[2023-07-28] MEDS: RIVAROXABAN 20 MG TAB PO SCH (16:51)
[2023-07-28 16:56] VITALS: BMI 61.0
--- NOTE | 2023-07-28 17:50 | P.PN ---
Subjective 62-year-old male history of hypertension, hyperlipidemia, diabetes mellitus, atrial fibrillation presenting to the emergency department by EMS. Patient presents for change in mental status. Patient is very drowsy and a poor historian. Patient is arousable to touch but still limited to providing history. Patient denies taking any medication's or overdose or thoughts of self-harm. No reported trauma. EMS did try 2 of Narcan without improvement of symptoms. patient with the right diabetic foot ulcer with a wound on the dorsal aspect of the right foot patient did have swelling to the right foot but no significant redness patient is not running any fever and white count has been normal will recommend local wound care with Medihoney followed by moist dressing change daily -we will monitor the patient closely off antibiotic therapy Patient is awake and alert but remains confused and restless; concern about possible benzodiazepine withdrawal; patient has been placed on CIWA protocol 07/27/2023 Patient is seen and evaluated resting in bed; more awake and oriented Vital signs are stable Lab review shows WBC of 9.7, hemoglobin of 11.5 and platelet count of 234, sodium improved from 124-128 this morning, potassium 2.9, BUN/creatinine of 9.1/0.6 -- PT/OT are consulted; plan is possible placement 07/28/2023 Mentation back to baseline Neurologic patient is clear He is status post I&D of his right diabetic foot infection, currently on Invanz Request PT/OT evaluation Objective - Vital Signs Vital signs: Vital Signs Temp 98.2 F 07/28/23 12:38 Pulse 82 07/28/23 15:48 Resp 17 07/28/23 12:38 BP 118/74 07/28/23 12:38 Pulse Ox 92 L 07/28/23 12:38 FiO2 21 07/26/23 01:05 Intake & Output 07/27/23 07/28/23 07/28/23 18:59 06:59 18:59 Intake Total 590 Output Total 736 014 0431 Balance -550 190 -1250 Weight 193 kg Intake: Oral 590 Output: Urine 904 305 9243 Other: Voiding Method Indwelling Catheter Indwelling Catheter Indwelling Catheter # Bowel Movements 1 - Exam GENERAL: The patient is alert and oriented x3, not in any acute distress. Well developed, well nourished. HEENT: Pupils are round and equally reacting to light. EOMI. No scleral icterus. No conjunctival pallor. Normocephalic, atraumatic. No pharyngeal erythema. No thyromegaly. CARDIOVASCULAR: S1 and S2 present. No murmurs, rubs, or gallops. PULMONARY: Chest is clear to auscultation, no wheezing , no crackles. ABDOMEN: Soft, nontender, nondistended, normoactive bowel sounds. No palpable organomegaly. MUSCULOSKELETAL: No joint swelling or deformity. -EXTREMITIES: No cyanosis, clubbing, or pedal edema. Right foot diabetic wound NEUROLOGICAL: Gross neurological examination did not reveal any focal deficits. SKIN: No rashes. no petechiae. - Labs CBC & Chem 7: 07/28/23 06:30 07/28/23 06:30 Labs: Abnormal Lab Results - Last 24 Hours (Table) 07/27/23 07/27/23 07/28/23 Range/Units 17:19 20:15 06:30 Hgb (13.0-17.0) g/dL Hct (39.6-50.0) % MCV (80.0-97.0) FL MCH (27.0-32.0) pg MCHC (32.0-37.0) g/dL RDW (11.5-14.5) % MPV (9.5-12.2) FL Monocytes # (0.20-1.00) X 10*3/uL Carbon Dioxide 32.9 H (21.6-31.8) mmol/L Glucose 129 H (70-110) mg/dL POC Glucose (mg/dL) 180 H 167 H (70-110) mg/dL 07/28/23 07/28/23 07/28/23 Range/Units 06:30 07:23 12:06 Hgb 10.2 L (13.0-17.0) g/dL Hct 36.5 L (39.6-50.0) % MCV 78.0 L (80.0-97.0) FL MCH 21.8 L (27.0-32.0) pg MCHC 27.9 L (32.0-37.0) g/dL RDW 18.5 H (11.5-14.5) % MPV 9.1 L (9.5-12.2) FL Monocytes # 1.05 H (0.20-1.00) X 10*3/uL Carbon Dioxide (21.6-31.8) mmol/L Glucose (70-110) mg/dL POC Glucose (mg/dL) 132 H 152 H (70-110) mg/dL Microbiology - Last 24 Hours (Table) 07/25/23 11:34 Gram Stain - Final Foot - Right Wound Culture - Final Enterococcus faecalis Klebsiella pneumoniae Providencia rettgeri 07/25/23 11:34 Anaerobic Culture - Preliminary Foot - Right 07/25/23 09:30 Blood Culture - Preliminary Blood 07/25/23 09:15 Blood Culture - Preliminary Blood Assessment and Plan Assessment: Diagnoses: 1. Altered mental status -- Polysubstance abuse; urine drug screen is positive for cocaine and benzodiazepines; patient did receive Narcan in ED without much improvement - Mentation back to baseline and neurology cleared 2. Diabetic foot infection status post I&D on 11/26, on IV antibiotic 3. Hypokalemia; supplemented in ED; monitor electrolytes closely and supplement as needed 4. Hyperglycemia; uncontrolled; monitor Accu-Cheks closely and adjust insulin sliding scale 5. Hypertension; metoprolol 25 mg daily. 6. Atrial fibrillation; rate controlled on metoprolol; Xarelto 20 mg daily for anticoagulation 7. Hyperlipidemia; Lipitor 20 mg by mouth daily at bedtime 8. COPD/asthma; not in exacerbation; continue with home therapy 9. Mild AK I; P fluid hydration with normal saline at a rate of 100 mL an hour; monitor strict VICKEY's, daily weights, renal function and electrolytes; avoid nephrotoxins and hypotension, improved DVT prophylaxis; Xarelto CODE STATUS; full code
[2023-07-28 18:03] LABS: Glucose,Whole Blood 189 mg/dL (70-110)
[2023-07-28] MEDS: ATORVASTATIN 20 MG TAB PO SCH (20:18)
[2023-07-28 20:33] LABS: Glucose,Whole Blood 190 mg/dL (70-110)
--- NOTE | 2023-07-29 00:19 | P.PN ---
Subjective Progress Note Date: 07/28/23 Patient was seen for a follow-up. Patient is laying comfortably in the bed. Appears much more alert and awake. No distress. Patient states he feels very good. Patient's mentation back to normal. Objective - Vital Signs Vital signs: Vital Signs Temp 98.2 F 07/28/23 12:38 Pulse 82 07/28/23 15:48 Resp 17 07/28/23 12:38 BP 118/74 07/28/23 12:38 Pulse Ox 92 L 07/28/23 12:38 FiO2 21 07/26/23 01:05 Intake & Output 07/27/23 07/28/23 07/28/23 18:59 06:59 18:59 Intake Total 590 Output Total 785 744 4773 Balance -550 190 -2225 Weight 193 kg 193 kg Intake: Oral 590 Output: Urine 547 988 2993 Other: Voiding Method Indwelling Catheter Indwelling Catheter Indwelling Catheter # Bowel Movements 1 - Exam Patient is alert and awake, affect appears normal. The delirium has resolved. Patient knows it is July and the year is and that he is in [facility]. Speech and language functions are normal. Cranial nerves are normal. patient has a bandage in the right foot. - Labs CBC & Chem 7: 07/28/23 06:30 07/28/23 06:30 Labs: Abnormal Lab Results - Last 24 Hours (Table) 07/27/23 07/28/23 07/28/23 Range/Units 20:15 06:30 06:30 Hgb 10.2 L (13.0-17.0) g/dL Hct 36.5 L (39.6-50.0) % MCV 78.0 L (80.0-97.0) FL MCH 21.8 L (27.0-32.0) pg MCHC 27.9 L (32.0-37.0) g/dL RDW 18.5 H (11.5-14.5) % MPV 9.1 L (9.5-12.2) FL Monocytes # 1.05 H (0.20-1.00) X 10*3/uL Carbon Dioxide 32.9 H (21.6-31.8) mmol/L Glucose 129 H (70-110) mg/dL POC Glucose (mg/dL) 167 H (70-110) mg/dL 07/28/23 07/28/23 07/28/23 Range/Units 07:23 12:06 18:01 Hgb (13.0-17.0) g/dL Hct (39.6-50.0) % MCV (80.0-97.0) FL MCH (27.0-32.0) pg MCHC (32.0-37.0) g/dL RDW (11.5-14.5) % MPV (9.5-12.2) FL Monocytes # (0.20-1.00) X 10*3/uL Carbon Dioxide (21.6-31.8) mmol/L Glucose (70-110) mg/dL POC Glucose (mg/dL) 132 H 152 H 189 H (70-110) mg/dL Microbiology - Last 24 Hours (Table) 07/25/23 09:30 Blood Culture - Preliminary Blood 07/25/23 09:15 Blood Culture - Preliminary Blood 07/25/23 11:34 Gram Stain - Final Foot - Right Wound Culture - Final Enterococcus faecalis Klebsiella pneumoniae Providencia rettgeri 07/25/23 11:34 Anaerobic Culture - Preliminary Foot - Right Assessment and Plan Assessment: * Altered mental status, likely due to acute delirium. Reasons multifactorial a s mentioned below. Delirium has resolved. * Polysubstance abuse. Urine drug screen positive for cocaine and benzodiazepine. * Hypokalemia * Anemia * Diabetic foot ulcer and leg wound with seepage, ID on board. * Diabetic peripheral neuropathy * Diabetes not well controlled, with last A1c 7.4 on 05/26/2023 * Atrial fibrillation, on Xarelto 20 mg. * Hyperlipidemia, on Lipitor 20 mg * Hypertension * COPD/asthma * Folate deficiency Plan: * Patient's delirium has resolved. * Recommended abstinence from polysubstance abuse * Management of other medical conditions including foot ulcer as per IM/ID. * B12 430, folate 4.00, TSH 7.9, with free T4 0.557. Patient will be started on B12 and folate replacement. Continue thiamine 100 mg daily. * Optimize control of diabetes, as per IM. * Patient has atrial fibrillation, will be continued on Xarelto 20 mg. * Neurologically patient is clear. Neurology will sign off. Please reconsult neurology if any concerns. Dr. Miguel starting neurology service from the morning.
[2023-07-29] MEDS: SODIUM CHLORIDE 0.9% 1,000 ML IV SCH ×2 (04:53→13:41)
[2023-07-29 07:51] LABS: Glucose,Whole Blood 147 mg/dL (70-110)
[2023-07-29] MEDS: IPRATROPIUM-ALBUTEROL 3 ML NEB INHALATION SCH ×4 (08:42→20:04)
[2023-07-29] MEDS: BUDESONIDE 0.5 MG/2 ML NEBU INHALATION SCH ×2 (08:42→20:04)
[2023-07-29] MEDS: DAPAGLIFLOZIN PROPANEDIOL 5 MG TABLET PO SCH (09:21)
[2023-07-29] MEDS: PIOGLITAZONE 30 MG TAB PO SCH (09:21)
[2023-07-29] MEDS: THIAMINE 100 MG TAB PO SCH (09:22)
[2023-07-29] MEDS: SENNOSIDES 8.6 MG TAB PO SCH ×2 (09:22→19:53)
[2023-07-29] MEDS: FOLIC ACID 1 MG TAB PO SCH (09:22)
[2023-07-29] MEDS: CHOLECALCIFEROL 25 MCG (1000 IU) TABLET PO SCH (09:22)
[2023-07-29] MEDS: HYDROcodone/APAP 7.5-325MG 1 EACH TAB PO SCH ×3 (09:22→19:52)
[2023-07-29] MEDS: BACLOFEN 10 MG TAB PO SCH ×2 (09:22→19:52)
[2023-07-29] MEDS: FUROSEMIDE 20 MG TAB PO SCH (09:22)
[2023-07-29] MEDS: CYANOCOBALAMIN 500 MCG TAB PO SCH (09:22)
[2023-07-29] MEDS: LORATADINE 10 MG TAB PO SCH (09:22)
[2023-07-29] MEDS: METOPROLOL TARTRATE 25 MG TAB PO SCH ×2 (09:22→19:54)
[2023-07-29] MEDS: PANTOPRAZOLE 40 MG/10 ML VIAL IV SCH (09:23)
[2023-07-29] MEDS: FLUTICASONE 50MCG/SPRAY NASAL 16GM EA NOSTRIL SCH (09:48)
[2023-07-29] MEDS: ERTAPENEM 1 GM in SODIUM CHLORIDE 0.9% 50 ML IVPB SCH (09:48)
[2023-07-29] MEDS: INSULIN DETEMIR (LEVEMIR) 100 UNIT/ML SYR SQ SCH (09:48)
[2023-07-29] MEDS: INSULIN ASPART (NovoLOG) 100 UNIT/ML VIAL SQ SCH ×4 (09:49→21:22)
[2023-07-29] MEDS: COLLAGENASE 250 UNIT/GM OINTMENT 30 GM TUBE TOPICAL SCH (13:52)
--- NOTE | 2023-07-29 14:02 | P.PN ---
Subjective 62-year-old male history of hypertension, hyperlipidemia, diabetes mellitus, atrial fibrillation presenting to the emergency department by EMS. Patient presents for change in mental status. Patient is very drowsy and a poor historian. Patient is arousable to touch but still limited to providing history. Patient denies taking any medication's or overdose or thoughts of self-harm. No reported trauma. EMS did try 2 of Narcan without improvement of symptoms. patient with the right diabetic foot ulcer with a wound on the dorsal aspect of the right foot patient did have swelling to the right foot but no significant redness patient is not running any fever and white count has been normal will recommend local wound care with Medihoney followed by moist dressing change daily -we will monitor the patient closely off antibiotic therapy Patient is awake and alert but remains confused and restless; concern about possible benzodiazepine withdrawal; patient has been placed on CIWA protocol 07/27/2023 Patient is seen and evaluated resting in bed; more awake and oriented Vital signs are stable Lab review shows WBC of 9.7, hemoglobin of 11.5 and platelet count of 234, sodium improved from 124-128 this morning, potassium 2.9, BUN/creatinine of 9.1/0.6 -- PT/OT are consulted; plan is possible placement 07/28/2023 Mentation back to baseline Neurologic patient is clear He is status post I&D of his right diabetic foot infection, currently on Invanz Request PT/OT evaluation 07/29/2023 Patient is doing well, no new complaint Physical therapy came to see the patient but he was walking by himself. He remains on Invanz pending wound culture from I&D done yesterday by O surgery team Mentation improved, back to baseline and the neurologist signed off Objective - Vital Signs Vital signs: Vital Signs Temp 98.2 F 07/29/23 07:40 Pulse 80 07/29/23 12:17 Resp 20 07/29/23 07:40 BP 111/74 07/29/23 07:40 Pulse Ox 95 07/29/23 07:40 FiO2 21 07/26/23 01:05 Intake & Output 07/28/23 07/29/23 07/29/23 18:59 06:59 18:59 Output Total 2225 750 1200 Balance -2225 -750 -1200 Weight 193 kg 198 kg Output: Urine 2225 750 1200 Other: Voiding Method Indwelling Catheter Indwelling Catheter Indwelling Catheter # Bowel Movements 0 0 - Exam GENERAL: The patient is alert and oriented x3, not in any acute distress. Well developed, well nourished. HEENT: Pupils are round and equally reacting to light. EOMI. No scleral icterus. No conjunctival pallor. Normocephalic, atraumatic. No pharyngeal erythema. No thyromegaly. CARDIOVASCULAR: S1 and S2 present. No murmurs, rubs, or gallops. PULMONARY: Chest is clear to auscultation, no wheezing , no crackles. ABDOMEN: Soft, nontender, nondistended, normoactive bowel sounds. No palpable organomegaly. MUSCULOSKELETAL: No joint swelling or deformity. -EXTREMITIES: No cyanosis, clubbing, or pedal edema. Right foot diabetic wound NEUROLOGICAL: Gross neurological examination did not reveal any focal deficits. SKIN: No rashes. no petechiae. - Labs CBC & Chem 7: 07/28/23 06:30 07/28/23 06:30 Labs: Abnormal Lab Results - Last 24 Hours (Table) 07/28/23 07/28/23 07/28/23 Range/Units 06:30 18:01 20:31 ESR (0-20) mm/Hr POC Glucose (mg/dL) 189 H 190 H (70-110) mg/dL C-Reactive Protein 2.50 H (0.00-0.80) mg/dL 07/29/23 07/29/23 Range/Units 06:34 07:16 ESR 107 H (0-20) mm/Hr POC Glucose (mg/dL) 147 H (70-110) mg/dL C-Reactive Protein (0.00-0.80) mg/dL Microbiology - Last 24 Hours (Table) 07/28/23 16:32 Gram Stain - Preliminary Foot - Right 07/25/23 09:30 Blood Culture - Preliminary Blood 07/25/23 09:15 Blood Culture - Preliminary Blood Assessment and Plan Assessment: Diagnoses: 1. Altered mental status -- Polysubstance abuse; urine drug screen is positive for cocaine and benzodiazepines; patient did receive Narcan in ED without much improvement - Mentation back to baseline and neurology cleared 2. Diabetic foot infection status post I&D on 11/26, on IV antibiotic 3. Hypokalemia; supplemented in ED; monitor electrolytes closely and supplement as needed 4. Hyperglycemia; uncontrolled; monitor Accu-Cheks closely and adjust insulin sliding scale 5. Hypertension; metoprolol 25 mg daily. 6. Atrial fibrillation; rate controlled on metoprolol; Xarelto 20 mg daily for anticoagulation 7. Hyperlipidemia; Lipitor 20 mg by mouth daily at bedtime 8. COPD/asthma; not in exacerbation; continue with home therapy 9. Mild AK I; P fluid hydration with normal saline at a rate of 100 mL an hour; monitor strict VICKEY's, daily weights, renal function and electrolytes; avoid ne phrotoxins and hypotension, improved DVT prophylaxis; Xarelto CODE STATUS; full code
[2023-07-29] MEDS: RIVAROXABAN 20 MG TAB PO SCH (15:45)
[2023-07-29 17:39] LABS: Glucose,Whole Blood 163 mg/dL (70-110)
[2023-07-29] MEDS: ATORVASTATIN 20 MG TAB PO SCH (19:52)
[2023-07-29 19:59] LABS: Glucose,Whole Blood 134 mg/dL (70-110)
[2023-07-29 20:33] LABS: Glucose,Whole Blood 251 mg/dL (70-110)
[2023-07-29 21:06] VITALS: RESP 18
--- NOTE | 2023-07-30 00:31 | PN ---
PROGRESS NOTE A 62-year-old gentleman who has wound on the right foot dorsal aspect. We did the debridement. Culture report is pending. Tendon of the foot was exposed. We removed the devitalized tissue yesterday. We have been using Santyl cream. No discharge noted. We will continue local wound care. The next dressing will be changed on Thursday. Continue with IV antibiotic under the care of Infectious Disease. MMODL / IJN: [id number] /
[2023-07-30] MEDS: SODIUM CHLORIDE 0.9% 1,000 ML IV SCH ×2 (00:41→15:29)
[2023-07-30 07:36] LABS: Glucose,Whole Blood 126 mg/dL (70-110)
[2023-07-30] MEDS: INSULIN ASPART (NovoLOG) 100 UNIT/ML VIAL SQ SCH ×4 (07:41→20:39)
[2023-07-30] MEDS: INSULIN DETEMIR (LEVEMIR) 100 UNIT/ML SYR SQ SCH (08:32)
[2023-07-30] MEDS: METOPROLOL TARTRATE 25 MG TAB PO SCH ×2 (08:33→20:41)
[2023-07-30] MEDS: LORATADINE 10 MG TAB PO SCH (08:33)
[2023-07-30] MEDS: FUROSEMIDE 20 MG TAB PO SCH (08:33)
[2023-07-30] MEDS: BACLOFEN 10 MG TAB PO SCH ×2 (08:33→20:40)
[2023-07-30] MEDS: PANTOPRAZOLE 40 MG/10 ML VIAL IV SCH (08:33)
[2023-07-30] MEDS: SENNOSIDES 8.6 MG TAB PO SCH ×2 (08:33→20:40)
[2023-07-30] MEDS: CYANOCOBALAMIN 500 MCG TAB PO SCH (08:33)
[2023-07-30] MEDS: CHOLECALCIFEROL 25 MCG (1000 IU) TABLET PO SCH (08:33)
[2023-07-30] MEDS: THIAMINE 100 MG TAB PO SCH (08:33)
[2023-07-30] MEDS: FOLIC ACID 1 MG TAB PO SCH (08:33)
[2023-07-30] MEDS: HYDROcodone/APAP 7.5-325MG 1 EACH TAB PO SCH ×3 (08:33→20:40)
[2023-07-30] MEDS: BUDESONIDE 0.5 MG/2 ML NEBU INHALATION SCH ×2 (08:34→18:40)
[2023-07-30] MEDS: IPRATROPIUM-ALBUTEROL 3 ML NEB INHALATION SCH ×4 (08:34→18:40)
[2023-07-30] MEDS: PIOGLITAZONE 30 MG TAB PO SCH (08:34)
[2023-07-30] MEDS: DAPAGLIFLOZIN PROPANEDIOL 5 MG TABLET PO SCH (08:34)
[2023-07-30] MEDS: FLUTICASONE 50MCG/SPRAY NASAL 16GM EA NOSTRIL SCH (08:35)
[2023-07-30] MEDS: ERTAPENEM 1 GM in SODIUM CHLORIDE 0.9% 50 ML IVPB SCH (08:35)
[2023-07-30] MEDS: COLLAGENASE 250 UNIT/GM OINTMENT 30 GM TUBE TOPICAL SCH (08:53)
[2023-07-30 11:42] LABS: Glucose,Whole Blood 153 mg/dL (70-110)
--- NOTE | 2023-07-30 16:27 | P.PN ---
Subjective Progress Note Date: 07/29/23 Principal diagnosis: Reason for follow up his right leg and right foot diabetic foot wound Patient is a 62-year-old male with a past medical history significant for diabetes mellitus hypertension hyperlipidemia atrial fibrillation patient has been brought into the ER by EMS concern for mental status changes, patient also noticed to have a right foot and leg wound prompting this infectious disease consultation patient mention he has this wound for a couple of weeks now and is being treated by his primary care physician weekly and recently completed a course of antibiotic however the patient unclear about the name of those antibiotics, The patient superficial wound culture grew Enterococcus faecalis ESBL Klebsiella patient has been evaluated by vascular surgery and did have a bedside debridement of his right foot wound with a tendon exposed concerning for possible deep infection. On today's evaluation that is 07/29/2023 the patient continues to be afebrile t he patient is breathing comfortably room air patient denies chest pain shortness of breath or cough no nausea vomiting no abdominal pain and denies any worsening pain to the right foot area. Patient did have a sed rate of 107 CRP is 2.50 Objective - Vital Signs Vital signs: Vital Signs Temp 98.7 F 07/29/23 14:00 Pulse 78 07/29/23 16:01 Resp 16 07/29/23 14:00 BP 93/57 07/29/23 14:00 Pulse Ox 83 L 07/29/23 14:00 FiO2 21 07/26/23 01:05 Intake & Output 07/28/23 07/29/23 07/29/23 18:59 06:59 18:59 Output Total 2225 750 1200 Balance -2225 -750 -1200 Weight 193 kg 198 kg Output: Urine 2225 750 1200 Other: Voiding Method Indwelling Catheter Indwelling Catheter Indwelling Catheter # Bowel Movements 0 0 - Exam GENERAL DESCRIPTION: Middle-age male lying in bed in no distress RESPIRATORY SYSTEM: Unlabored breathing , decreased breath sounds at bases HEART: S1 S2 regular rate and rhythm , ABDOMEN: Soft , no tenderness EXTREMITIES: Right foot wound is currently dressed no drainage on the dressing - Labs CBC & Chem 7: 07/28/23 06:30 07/28/23 06:30 Labs: Abnormal Lab Results - Last 24 Hours (Table) 07/28/23 07/28/23 07/28/23 Range/Units 06:30 18:01 20:31 ESR (0-20) mm/Hr POC Glucose (mg/dL) 189 H 190 H (70-110) mg/dL C-Reactive Protein 2.50 H (0.00-0.80) mg/dL 07/29/23 07/29/23 Range/Units 06:34 07:16 ESR 107 H (0-20) mm/Hr POC Glucose (mg/dL) 147 H (70-110) mg/dL C-Reactive Protein (0.00-0.80) mg/dL Microbiology - Last 24 Hours (Table) 07/28/23 16:32 Gram Stain - Preliminary Foot - Right 07/25/23 09:30 Blood Culture - Preliminary Blood 07/25/23 09:15 Blood Culture - Preliminary Blood Assessment and Plan (1) Diabetic foot ulcer associated with type 2 diabetes mellitus, with fat layer exposed Current Visit: Yes Status: Acute Code(s): E11.621 - TYPE 2 DIABETES MELLITUS WITH FOOT ULCER; L97.502 - NON-PRS CHRONIC ULCER OTH PRT UNSP FOOT W FAT LAYER EXPOSED SNOMED Code(s): 5166688739142 (2) Leg wound, right Current Visit: Yes Status: Acute Code(s): S81.801A - UNSPECIFIED OPEN WOUND, RIGHT LOWER LEG, INITIAL ENCOUNTER SNOMED Code(s): 941956452 Plan: 1patient with the right diabetic foot ulcer with a wound on the dorsal aspect of the right foot patient did have swelling to the right foot but no significant redness patient is not running any fever and white count has been normal 2the patient is status post vascular surgery evaluation and debridement concerning for deep infection with the tendon exposed we are currently waiting for the deep culture to be finalized continue with Invanz more likely will need PICC line and outpatient IV antibiotic therapy Dictation was produced using [employer] dictation software. please excuse any grammatical, word or spelling errors. Time with Patient: Less than 30
--- NOTE | 2023-07-30 16:28 | P.PN ---
Subjective Progress Note Date: 07/30/23 Principal diagnosis: Reason for follow up his right leg and right foot diabetic foot wound Patient is a 62-year-old male with a past medical history significant for diabetes mellitus hypertension hyperlipidemia atrial fibrillation patient has been brought into the ER by EMS concern for mental status changes, patient also noticed to have a right foot and leg wound prompting this infectious disease consultation patient mention he has this wound for a couple of weeks now and is being treated by his primary care physician weekly and recently completed a course of antibiotic however the patient unclear about the name of those antibiotics, The patient superficial wound culture grew Enterococcus faecalis ESBL Klebsiella patient has been evaluated by vascular surgery and did have a bedside debridement of his right foot wound with a tendon exposed concerning for possible deep infection. On today's evaluation that is patient denies having any fever or any chills patient is breathing comfortably on room air denies any chest pain shortness of breath or cough no nausea vomiting no abdominal pain no diarrhea. Patient did not have any new labs today deep culture currently growing gram- negative bacilli Objective - Vital Signs Vital signs: Vital Signs Temp 97.6 F 07/30/23 11:35 Pulse 76 07/30/23 11:56 Resp 18 07/30/23 11:35 BP 112/76 07/30/23 11:35 Pulse Ox 96 07/30/23 11:35 FiO2 21 07/26/23 01:05 Intake & Output 07/29/23 07/30/23 07/30/23 18:59 06:59 18:59 Output Total 1750 500 Balance -1750 -500 Weight 198 kg 193 kg Output: Urine 1750 500 Other: Voiding Method Indwelling Catheter Indwelling Catheter Indwelling Catheter # Bowel Movements 0 1 - Exam GENERAL DESCRIPTION: Middle-age male lying in bed in no distress RESPIRATORY SYSTEM: Unlabored breathing , decreased breath sounds at bases HEART: S1 S2 regular rate and rhythm , ABDOMEN: Soft , no tenderness EXTREMITIES: Right foot wound is currently dressed no drainage on the dressing - Labs CBC & Chem 7: 07/28/23 06:30 07/28/23 06:30 Labs: Abnormal Lab Results - Last 24 Hours (Table) 07/29/23 07/29/23 07/29/23 Range/Units 12:20 17:38 20:27 POC Glucose (mg/dL) 134 H 163 H 251 H (70-110) mg/dL 07/30/23 07/30/23 Range/Units 07:33 11:35 POC Glucose (mg/dL) 126 H 153 H (70-110) mg/dL Microbiology - Last 24 Hours (Table) 07/25/23 11:34 Gram Stain - Final Foot - Right Wound Culture - Final Enterococcus faecalis Klebsiella pneumoniae Providencia rettgeri 07/28/23 16:32 Gram Stain - Preliminary Foot - Right Assessment and Plan (1) Diabetic foot ulcer associated with type 2 diabetes mellitus, with fat layer exposed Current Visit: Yes Status: Acute Code(s): E11.621 - TYPE 2 DIABETES MELLITUS WITH FOOT ULCER; L97.502 - NON-PRS CHRONIC ULCER OTH PRT UNSP FOOT W FAT LAYER EXPOSED SNOMED Code(s): 6779107041134 (2) Leg wound, right Current Visit: Yes Status: Acute Code(s): S81.801A - UNSPECIFIED OPEN WOUND, RIGHT LOWER LEG, INITIAL ENCOUNTER SNOMED Code(s): 260608576 (3) ESBL (extended spectrum beta-lactamase) producing bacteria infection Current Visit: Yes Status: Acute Code(s): A49.9 - BACTERIAL INFECTION, UNSPECIFIED; Z16.12 - EXTENDED SPECTRUM BETA LACTAMASE (ESBL) RESISTANCE S NOMED Code(s): 365132710 Plan: 1patient with the right diabetic foot ulcer with a wound on the dorsal aspect of the right foot patient did have swelling to the right foot but no significant redness patient is not running any fever and white count has been normal 2the patient is status post vascular surgery evaluation and debridement concerning for deep infection with the tendon exposed , With a deep culture currently growing gram-negative bacilli with ID sensitivities pending more likely ESBL Klebsiella. 3we will order PICC line for outpatient IV antibiotic therapy at least 4 weeks local wound care to continue with the Santyl followed by moist dressing change daily Dictation was produced using [employer] dictation software. please excuse any gramm atical, word or spelling errors. Time with Patient: Less than 30
[2023-07-30 17:17] LABS: Glucose,Whole Blood 161 mg/dL (70-110)
[2023-07-30] MEDS: RIVAROXABAN 20 MG TAB PO SCH (18:12)
[2023-07-30 20:07] LABS: Glucose,Whole Blood 178 mg/dL (70-110)
[2023-07-30] MEDS: ATORVASTATIN 20 MG TAB PO SCH (20:41)
--- NOTE | 2023-07-30 22:24 | P.PN ---
Subjective 62-year-old male history of hypertension, hyperlipidemia, diabetes mellitus, atrial fibrillation presenting to the emergency department by EMS. Patient presents for change in mental status. Patient is very drowsy and a poor historian. Patient is arousable to touch but still limited to providing history. Patient denies taking any medication's or overdose or thoughts of self-harm. No reported trauma. EMS did try 2 of Narcan without improvement of symptoms. patient with the right diabetic foot ulcer with a wound on the dorsal aspect of the right foot patient did have swelling to the right foot but no significant redness patient is not running any fever and white count has been normal will recommend local wound care with Medihoney followed by moist dressing change daily -we will monitor the patient closely off antibiotic therapy Patient is awake and alert but remains confused and restless; concern about possible benzodiazepine withdrawal; patient has been placed on CIWA protocol 07/27/2023 Patient is seen and evaluated resting in bed; more awake and oriented Vital signs are stable Lab review shows WBC of 9.7, hemoglobin of 11.5 and platelet count of 234, sodium improved from 124-128 this morning, potassium 2.9, BUN/creatinine of 9.1/0.6 -- PT/OT are consulted; plan is possible placement 07/28/2023 Mentation back to baseline Neurologic patient is clear He is status post I&D of his right diabetic foot infection, currently on Invanz Request PT/OT evaluation 07/29/2023 Patient is doing well, no new complaint Physical therapy came to see the patient but he was walking by himself. He remains on Invanz pending wound culture from I&D done yesterday by O surgery team Mentation improved, back to baseline and the neurologist signed off 07/30/2023 Patient improving slowly and gradually His foot infection is improving No new Complaint Plan for PICC line and IV antibiotics for at least 4 weeks, currently on Invanz Objective - Vital Signs Vital signs: Vital Signs Temp 97.6 F 07/30/23 11:35 Pulse 76 07/30/23 11:56 Resp 18 07/30/23 11:35 BP 112/76 07/30/23 11:35 Pulse Ox 96 07/30/23 11:35 FiO2 21 07/26/23 01:05 Intake & Output 07/29/23 07/30/23 07/30/23 18:59 06:59 18:59 Output Total 1750 500 Balance -1750 -500 Weight 198 kg 193 kg 193 kg Output: Urine 1750 500 Other: Voiding Method Indwelling Catheter Indwelling Catheter Indwelling Catheter # Bowel Movements 0 1 - Exam GENERAL: The patient is alert and oriented x3, not in any acute distress. Well developed, well nourished. HEENT: Pupils are round and equally reacting to light. EOMI. No scleral icterus. No conjunctival pallor. Normocephalic, atraumatic. No pharyngeal erythema. No thyromegaly. CARDIOVASCULAR: S1 and S2 present. No murmurs, rubs, or gallops. PULMONARY: Chest is clear to auscultation, no wheezing , no crackles. ABDOMEN: Soft, nontender, nondistended, normoactive bowel sounds. No palpable organomegaly. MUSCULOSKELETAL: No joint swelling or deformity. -EXTREMITIES: No cyanosis, clubbing, or pedal edema. Right foot diabetic wound NEUROLOGICAL: Gross neurological examination did not reveal any focal deficits. SKIN: No rashes. no petechiae. - Labs CBC & Chem 7: 07/28/23 06:30 07/28/23 06:30 Labs: Abnormal Lab Results - Last 24 Hours (Table) 07/29/23 07/29/23 07/29/23 Range/Units 12:20 17:38 20:27 POC Glucose (mg/dL) 134 H 163 H 251 H (70-110) mg/dL 07/30/23 07/30/23 Range/Units 07:33 11:35 POC Glucose (mg/dL) 126 H 153 H (70-110) mg/dL Microbiology - Last 24 Hours (Table) 07/28/23 16:32 Gram Stain - Preliminary Foot - Right Tissue Culture - Preliminary Gram Neg Bacilli 07/25/23 11:34 Gram Stain - Final Foot - Right Wound Culture - Final Enterococcus faecalis Klebsiella pneumoniae Providencia rettgeri Assessment and Plan Assessment: Diagnoses: 1. Altered mental status -- Polysubstance abuse; urine drug screen is positive for cocaine and benzodiazepines; patient did receive Narcan in ED without much improvement - Mentation back to baseline and neurology cleared 2. Diabetic foot infection status post I&D on 11/26, on IV antibiotic 3. Hypokalemia; supplemented in ED; monitor electrolytes closely and supplement as needed 4. Hyperglycemia; uncontrolled; monitor Accu-Cheks closely and adjust insulin sliding scale 5. Hypertension; metoprolol 25 mg daily. 6. Atrial fibrillation; rate controlled on metoprolol; Xarelto 20 mg daily for anticoagulation 7. Hyperlipidemia; Lipitor 20 mg by mouth daily at bedtime 8. COPD/asthma; not in exacerbation; continue with home therapy 9. Mild AK I; P fluid hydration with normal saline at a rate of 100 mL an hour; monitor strict VICKEY's, daily weights, renal function and electrolytes; avoid nephrotoxins and hypotension, improved DVT prophylaxis; Xarelto CODE STATUS; full code
[2023-07-31] MEDS: SODIUM CHLORIDE 0.9% 1,000 ML IV SCH (05:06)
[2023-07-31 07:14] LABS: Glucose,Whole Blood 162 mg/dL (70-110)
[2023-07-31] MEDS: IPRATROPIUM-ALBUTEROL 3 ML NEB INHALATION SCH ×3 (08:05→14:30)
[2023-07-31] MEDS: BUDESONIDE 0.5 MG/2 ML NEBU INHALATION SCH (08:05)
[2023-07-31 08:15] VITALS: TEMP 98.2
[2023-07-31 08:29] LABS: INR 1.2 (<1.2); Prothrombin Time 12.6 sec (10.0-12.5)
[2023-07-31] MEDS: INSULIN ASPART (NovoLOG) 100 UNIT/ML VIAL SQ SCH ×2 (09:07→13:16)
[2023-07-31] MEDS: ERTAPENEM 1 GM in SODIUM CHLORIDE 0.9% 50 ML IVPB SCH (09:08)
[2023-07-31] MEDS: LORATADINE 10 MG TAB PO SCH (09:09)
[2023-07-31] MEDS: SENNOSIDES 8.6 MG TAB PO SCH (09:09)
[2023-07-31] MEDS: FUROSEMIDE 20 MG TAB PO SCH (09:09)
[2023-07-31] MEDS: FOLIC ACID 1 MG TAB PO SCH (09:09)
[2023-07-31] MEDS: THIAMINE 100 MG TAB PO SCH (09:09)
[2023-07-31] MEDS: CYANOCOBALAMIN 500 MCG TAB PO SCH (09:09)
[2023-07-31] MEDS: HYDROcodone/APAP 7.5-325MG 1 EACH TAB PO SCH ×2 (09:10→15:45)
[2023-07-31] MEDS: PANTOPRAZOLE 40 MG/10 ML VIAL IV SCH (09:10)
[2023-07-31] MEDS: PIOGLITAZONE 30 MG TAB PO SCH (09:10)
[2023-07-31] MEDS: DAPAGLIFLOZIN PROPANEDIOL 5 MG TABLET PO SCH (09:11)
[2023-07-31] MEDS: METOPROLOL TARTRATE 25 MG TAB PO SCH (09:12)
[2023-07-31] MEDS: BACLOFEN 10 MG TAB PO SCH (09:12)
[2023-07-31] MEDS: CHOLECALCIFEROL 25 MCG (1000 IU) TABLET PO SCH (09:12)
[2023-07-31] MEDS: FLUTICASONE 50MCG/SPRAY NASAL 16GM EA NOSTRIL SCH (09:13)
[2023-07-31] MEDS: COLLAGENASE 250 UNIT/GM OINTMENT 30 GM TUBE TOPICAL SCH (09:13)
[2023-07-31] MEDS: INSULIN DETEMIR (LEVEMIR) 100 UNIT/ML SYR SQ SCH (09:18)
--- NOTE | 2023-07-31 11:38 | P.OP ---
Date of Procedure: 07/31/23 Description of Procedure: Preoperative Diagnosis: Need for long-term IV antibiotic access. Postoperative Diagnosis: Same. Procedure(s) Performed: Ultrasound-guided cannulation left cephalic vein. Insertion of peripherally inserted central catheter under fluoroscopic guidance. Anesthesia: local 1% lidocaine martinez Surgeon: Robin Estimated Blood Loss (ml): 5 IV fluids (ml): 0 Urine output (ml): 0 Pathology: none sent Condition: stable Disposition: no change Indications for Procedure: Patient requires long-term IV antibiotics as an outpatient patient is offered a PICC line to allow for intravenous administration of antibiotics. Description of Procedure: Patient was brought to the special procedure suite. The left upper extremity sterilely prepped and draped in usual manner. Ultrasound was utilized to identify the cephalic vein which was normally compressible free of visible thrombus. Permenant image was stored. 1% Xylocaine was utilized for local anesthesia tissues overlying the vein. Through this anesthetized area and with the aid of ultrasound a micropuncture needle was utilized to cannulate the vein. Once cannulated, Softip guidewire was advanced into the vein. The needle was withdrawn and a micropuncture sheath and dilator advanced over the guidewire. The guidewire was withdrawn and exchanged for the PICC guidewire and measured 52 cm to the cavoatrial junction. The catheter was cut to size and advanced into the cavoatrial junction without resistance. The sheath was peeled away. Blood was easily withdrawn through the catheter and the catheter was then flushed with heparinized saline solution and secured to the skin. Patient tolerated procedure well and was returned to their room in satisfactory and stable condition.
[2023-07-31 12:28] LABS: Glucose,Whole Blood 147 mg/dL (70-110)
[2023-07-31 14:00] VITALS: BP 119/64
[2023-07-31 14:47] VITALS: PULSE 84
[2023-07-31 17:16] LABS: Glucose,Whole Blood 179 mg/dL (70-110)
[2023-07-31] MEDS: RIVAROXABAN 20 MG TAB PO SCH (17:21)
--- NOTE | 2023-07-31 21:38 | P.DS ---
Providers Date of admission: 07/27/23 13:26 Attending physician: Penelope Chandra MD Consults: 07/25/23 13:56 Consult Physician Routine Consulting Provider: Gina Geiger Consult Reason/Comments: ams Do you want consulting provider notified?: Yes Consult Physician Routine Consulting Provider: Ranjeet Bernard Consult Reason/Comments: foot ulcer Do you want consulting provider notified?: Yes 07/27/23 13:02 Consult Physician Routine Consulting Provider: Alvin Christopher Consult Reason/Comments: right foot wound , debridemnt and deep cultures Do you want consulting provider notified?: Yes Primary care physician: Arnold Wolf Hospital Course: Diagnoses: 1. Altered mental status, multifactorial and resolved -- Polysubstance abuse; urine drug screen is positive for cocaine and benzodiazepines; patient did receive Narcan in ED without much improvement. Patient consult to avoid substance abuse - Mentation back to baseline and neurology cleared 2. Diabetic right foot infection status post I&D on 07/28, on IV antibiotic ESBL bacterial infection 3. Hypokalemia; improved 4. Hyperglycemia; uncontrolled; improved 5. Hypertension; improved 6. Atrial fibrillation; 7. Hyperlipidemia 8. COPD/asthma; 9. Mild MATI;improved Hospital course: 62-year-old male history of hypertension, hyperlipidemia, diabetes mellitus, atrial fibrillation presenting to the emergency department by EMS. Patient presents for change in mental status. patient was found to have metabolic encephalopathy, with a treatment is back to baseline. And found to have diabetic wound infection status post I&D on 07/28. Wound culture showing multiple organisms including Enterococcus faecalis, Klebsiella and probably dementia. Patient has been followed by ID team, PICC line placed and plan for IV antibiotics upon discharge for at least 4 weeks. Patient also with chronic hypoxic respiratory failure and he uses 2-3 L at home, patient confirms to me he has oxygen at home Patient back to baseline. No chest pain or dyspnea. No other new complaints. Patient is followed by several consultants including neurologist, infectious disease team. Both consult is cleared him for discharge. Problems and management plan were discussed with the patient and he verbalized understanding and acceptance Patient was found stable and can be discharged home in guarded prognosis however he needs follow-up as an outpatient. Patient was instructed to follow up with PCP Dr. wolf within one week and patient agrees Patient was instructed to follow up with Dr. Bernard from infectious disease in [address] Salinas in one week and he agrees to call and make appointment Physical exam Gen: patient is a AAOx3, no distress CVS: S1-S2, RRR, no murmur Lungs: B/L CTA, no wheezing Abdomen: soft, no distention, no tenderness, positive bowel sounds -Extremity: no leg edema or induration. Right foot wound is healing, dressing in place Time spent more than 35 minutes Plan - Discharge Summary Discharge Rx Participant: No New Discharge Prescriptions: New Thiamine [Vitamin B-1] 100 mg PO DAILY #30 tab Folic Acid 1 mg PO DAILY #30 tab Ertapenem [INVanz] 1 gm IVPB DAILY each Cyanocobalamin [Vitamin B-12] 1,000 mcg PO DAILY #60 tab Continue Pioglitazone [Actos] 30 mg PO DAILY Omeprazole [PriLOSEC] 20 mg PO DAILY@0600 Rivaroxaban [Xarelto] 20 mg PO DAILY@1700 Metoprolol Tartrate [Lopressor] 25 mg PO BID Hydrophilic Cream [Triad (Kerodex geq)] 1 applic TOPICAL Q12H PRN PRN Reason: WOUND CARE Sennosides [Senokot] 8.6 mg PO BID polyethylene glycoL 3350 [Miralax] 17 gm PO DAILY PRN PRN Reason: Constipation Ipratropium-Albuterol Nebulize [Duoneb 0.5 mg-3 mg/3 ml Soln] 3 ml INHALATION RT-Q6H Hydrophilic Cream [Triad (Kerodex geq)] 1 applic TOPICAL HS Cholecalciferol [Vitamin D3 (25 Mcg = 1000 Iu)] 25 mcg PO DAILY Cetirizine HCl [Zyrtec] 10 mg PO DAILY Atorvastatin [Lipitor] 20 mg PO HS Fluticasone Nasal Lerna [Flonase Nasal Lerna] 2 spr EA NOSTRIL DAILY cefUROXime axetiL [Ceftin] 500 mg PO BID Furosemide [Lasix] 60 mg PO DAILY Acetaminophen Tab [Tylenol] 650 mg PO Q6H PRN PRN Reason: Pain Insulin Lispro [humaLOG Kwikpen] See Protocol SQ QID Budesonide [Pulmicort] 0.5 mg INHALATION RT-BID Tirzepatide [Mounjaro] 7.5 mg SQ FR Empagliflozin [Jardiance] 10 mg PO DAILY Baclofen 10 mg PO BID Naloxone HCl [Narcan] 4 mg NASAL DIRECTED PRN PRN Reason: Overdose Insulin Degludec [Tresiba Flextouch U-200 Pen] 30 units SQ DAILY Changed HYDROcodone/APAP 7.5-325MG [[place] 7.5-325] 1 tab PO TID PRN #9 tab PRN Reason: Pain Discharge Medication List Omeprazole [PriLOSEC] 20 mg PO DAILY@0600 06/27/20 [History] Pioglitazone [Actos] 30 mg PO DAILY 06/27/20 [History] Rivaroxaban [Xarelto] 20 mg PO DAILY@1700 06/27/20 [History] Acetaminophen Tab [Tylenol] 650 mg PO Q6H PRN 05/25/23 [History] Atorvastatin [Lipitor] 20 mg PO HS 05/25/23 [History] Budesonide [Pulmicort] 0.5 mg INHALATION RT-BID 05/25/23 [History] Cetirizine HCl [Zyrtec] 10 mg PO DAILY 05/25/23 [History] Cholecalciferol [Vitamin D3 (25 Mcg = 1000 Iu)] 25 mcg PO DAILY 05/25/23 [History] Empagliflozin [Jardiance] 10 mg PO DAILY 05/25/23 [History] Hydrophilic Cream [Triad (Kerodex geq)] 1 applic TOPICAL HS 05/25/23 [History] Hydrophilic Cream [Triad (Kerodex geq)] 1 applic TOPICAL Q12H PRN 05/25/23 [History] Insulin Lispro [humaLOG Kwikpen] See Protocol SQ QID 05/25/23 [History] Ipratropium-Albuterol Nebulize [Duoneb 0.5 mg-3 mg/3 ml Soln] 3 ml INHALATION RT-Q6H 05/25/23 [History] Metoprolol Tartrate [Lopressor] 25 mg PO BID 05/25/23 [History] Sennosides [Senokot] 8.6 mg PO BID 05/25/23 [History] Tirzepatide [Mounjaro] 7.5 mg SQ FR 05/25/23 [History] polyethylene glycoL 3350 [Miralax] 17 gm PO DAILY PRN 05/25/23 [History] Baclofen 10 mg PO BID 07/25/23 [History] Fluticasone Nasal Lerna [Flonase Nasal Lerna] 2 spr EA NOSTRIL DAILY 07/25/23 [History] Furosemide [Lasix] 60 mg PO DAILY 07/25/23 [History] Insulin Degludec [Tresiba Flextouch U-200 Pen] 30 units SQ DAILY 07/25/23 [Hi story] Naloxone HCl [Narcan] 4 mg NASAL DIRECTED PRN 07/25/23 [History] cefUROXime axetiL [Ceftin] 500 mg PO BID 07/25/23 [History] Cyanocobalamin [Vitamin B-12] 1,000 mcg PO DAILY #60 tab 07/31/23 [Rx] Ertapenem [INVanz] 1 gm IVPB DAILY each 07/31/23 [Rx] Folic Acid 1 mg PO DAILY #30 tab 07/31/23 [Rx] HYDROcodone/APAP 7.5-325MG [[place] 7.5-325] 1 tab PO TID PRN #9 tab 07/31/23 [Rx] Thiamine [Vitamin B-1] 100 mg PO DAILY #30 tab 07/31/23 [Rx] Follow up Appointment(s)/Referral(s): [facility] [NON-STAFF] - 1 Week [facility], [REFERRING] - 1 Week Arnold Wolf [Primary Care Provider] - 1-2 days (please call the office to schedule a follow up appointment) Alvin Christopher MD [STAFF PHYSICIAN] - 08/05/23 10:00 am Ranjeet Bernard MD [STAFF PHYSICIAN] - 1 Week (please call the office to schedule a follow up appointment) Patient Instructions/Handouts: Hydrocodone/Acetaminophen (By mouth), Thiamine (By mouth), Folic Acid (By mouth), Vitamin B-12 (By mouth) Activity/Diet/Wound Care/Special Instructions: heart healthy diet activity is restricted till you see your doctor Please discontinue PICC line once you finish your course of intravenous antibiotics [facility] will deliver your antibiotics and equipment lakhwinder rodriguez will be out tomorrow to teach you and your niece how to infuse the IV antibiotics you will follow up in the wound care center for your dressing changes. Discharge Disposition: HOME WITH HOME HEALTH SERVICES
== END 2023-07-31 18:23 | disposition home health service (06) | DRG 981 ==
LOC: EC 08:55 → 5NMEDONC 13:56 → 3SCARD 15:21 → 5NMEDONC 07-26 13:40 → OBSVTOIN 07-27 13:26
PROVIDERS: ADMIT Internal Medicine; ATTEND Internal Medicine
PROC: 0LBV0ZZ Excision of Right Foot Tendon, Open Approach (ICD-10-PCS; principal; 2023-07-28)
PROC: 02HV33Z Insertion of Infusion Device into Superior Vena Cava, Percutaneous Approach (ICD-10-PCS; 2023-07-31)
PROC: B5181ZA Fluoroscopy of Superior Vena Cava using Low Osmolar Contrast, Guidance (ICD-10-PCS; 2023-07-31)
PROC: B548ZZA Ultrasonography of Superior Vena Cava, Guidance (ICD-10-PCS; 2023-07-31)
DX: F19.131 Other psychoactive substance abuse with withdrawal delirium (principal); G93.41 Metabolic encephalopathy; N17.9 Acute kidney failure, unspecified; Z16.12 Extended spectrum beta lactamase (ESBL) resistance; F13.131 Sedative, hypnotic or anxiolytic abuse with withdrawal delirium; E11.42 Type 2 diabetes mellitus with diabetic polyneuropathy; E11.621 Type 2 diabetes mellitus with foot ulcer; E53.8 Deficiency of other specified B group vitamins; E78.5 Hyperlipidemia, unspecified; E87.6 Hypokalemia; F17.210 Nicotine dependence, cigarettes, uncomplicated; F41.9 Anxiety disorder, unspecified; I48.91 Unspecified atrial fibrillation; L97.519 Non-pressure chronic ulcer of other part of right foot with unspecified severity; W01.0XXA Fall on same level from slipping, tripping and stumbling without subsequent striking against object, initial encounter; B96.1 Klebsiella pneumoniae [K. pneumoniae] as the cause of diseases classified elsewhere; B95.2 Enterococcus as the cause of diseases classified elsewhere; E11.65 Type 2 diabetes mellitus with hyperglycemia; Y92.009 Unspecified place in unspecified non-institutional (private) residence as the place of occurrence of the external cause; D64.9 Anemia, unspecified; Z79.01 Long term (current) use of anticoagulants; Z79.4 Long term (current) use of insulin; Z79.84 Long term (current) use of oral hypoglycemic drugs; Z79.899 Other long term (current) drug therapy; Z82.49 Family history of ischemic heart disease and other diseases of the circulatory system; Z91.040 Latex allergy status; Z87.19 Personal history of other diseases of the digestive system; Z98.84 Bariatric surgery status
CPT/HCPCS: 36415; 36600; 51702; 70450; 71046; 80048; 80053; 80143; 80179; 80306; 80320; 81001; 82140; 82607; 82746; 82805; 83036; 83605; 83880; 84443; 84484; 85025; 85610; 85652; 85730; 86140; 87040; 87070; 87075; 87077; 87186; 87205; 93005; 94640; 94660; 96361; 96374; 96375; 96376; 99285

== ENCOUNTER 2023-08-02 11:28 | Observation (INO) | payer MEDICARE, OTHER ==
--- NOTE | 2023-08-02 11:51 | ED ---
General Adult HPI - General Chief complaint: Recheck/Abnormal Lab/Rx Stated complaint: Picc Line Issue, Weakness Time Seen by Provider: 08/02/23 11:40 Source: patient, EMS, RN notes reviewed, old records reviewed Mode of arrival: EMS Limitations: no limitations - History of Present Illness Initial comments: This is a 62-year-old male who presents emergency Department with wound on the anterior aspect of his right foot. Patient was in the hospital recently and given a PICC line and sent home with antibiotics. Patient pulled the PICC line out last night and has not had any laxity. Patient denies any symptoms to me. Patient denies fever chills patient denies any increased pain. Patient denies chest pain difficulty breathing. Patient denies abdominal pain patient denies nausea vomiting diarrhea. Patient states he called because he has no way of getting himself antibiotics - Related Data Home Medications Medication Instructions Recorded Confirmed Omeprazole [PriLOSEC] 20 mg PO DAILY@0600 06/27/20 07/25/23 Pioglitazone [Actos] 30 mg PO DAILY 06/27/20 07/25/23 Rivaroxaban [Xarelto] 20 mg PO DAILY@1700 06/27/20 07/25/23 Acetaminophen Tab [Tylenol] 650 mg PO Q6H PRN 05/25/23 07/25/23 Atorvastatin [Lipitor] 20 mg PO HS 05/25/23 07/25/23 Budesonide [Pulmicort] 0.5 mg INHALATION RT-BID 05/25/23 07/25/23 Cetirizine HCl [Zyrtec] 10 mg PO DAILY 05/25/23 07/25/23 Cholecalciferol [Vitamin D3 (25 25 mcg PO DAILY 05/25/23 07/25/23 Mcg = 1000 Iu)] Empagliflozin [Jardiance] 10 mg PO DAILY 05/25/23 07/25/23 Hydrophilic Cream [Triad (Kerodex 1 applic TOPICAL HS 05/25/23 07/25/23 geq)] Hydrophilic Cream [Triad (Kerodex 1 applic TOPICAL Q12H PRN 05/25/23 07/25/23 geq)] Insulin Lispro [humaLOG Kwikpen] See Protocol SQ QID 05/25/23 07/25/23 Ipratropium-Albuterol Nebulize 3 ml INHALATION RT-Q6H 05/25/23 07/25/23 [Duoneb 0.5 mg-3 mg/3 ml Soln] Metoprolol Tartrate [Lopressor] 25 mg PO BID 05/25/23 07/25/23 Sennosides [Senokot] 8.6 mg PO BID 05/25/23 07/25/23 Tirzepatide [Mounjaro] 7.5 mg SQ FR 05/25/23 07/25/23 polyethylene glycoL 3350 [Miralax] 17 gm PO DAILY PRN 05/25/23 07/25/23 Baclofen 10 mg PO BID 07/25/23 07/25/23 Fluticasone Nasal [place] [Flonase 2 spr EA NOSTRIL DAILY 07/25/23 07/25/23 Nasal [place]] Furosemide [Lasix] 60 mg PO DAILY 07/25/23 07/25/23 Insulin Degludec [Tresiba 30 units SQ DAILY 07/25/23 07/25/23 Flextouch U-200 Pen] Naloxone HCl [Narcan] 4 mg NASAL DIRECTED PRN 07/25/23 07/25/23 cefUROXime axetiL [Ceftin] 500 mg PO BID 07/25/23 07/25/23 Previous Rx's Medication Instructions Recorded Cyanocobalamin [Vitamin B-12] 1,000 mcg PO DAILY #60 tab 07/31/23 Ertapenem [INVanz] 1 gm IVPB DAILY each 07/31/23 Folic Acid 1 mg PO DAILY #30 tab 07/31/23 HYDROcodone/APAP 7.5-325MG [[place] 1 tab PO TID PRN #9 tab 07/31/23 7.5-325] Thiamine [Vitamin B-1] 100 mg PO DAILY #30 tab 07/31/23 Allergies Allergy/AdvReac Type Severity Reaction Status Date / Time latex Allergy Rash/Hives Verified 08/02/23 11:45 Review of Systems ROS Statement: Those systems with pertinent positive or pertinent negative responses have been documented in the HPI. ROS Other: All systems not noted in ROS Statement are negative. Past Medical History Past Medical History: Atrial Fibrillation, CVA/TIA, Diabetes Mellitus, GERD/Reflux, Hyperlipidemia, Hypertension, Sleep Apnea/CPAP/BIPAP Additional Past Medical History / Comment(s): diabetic neuropathy, "leaky valve", frequent foot & ankle swelling, USES C-PAP, shortness of breath, unable to walk distances. rhabdo History of Any Multi-Drug Resistant Organisms: ESBL Date of last positivie culture/infection: 07/25/23 ESBL MDRO Source:: Right Foot Past Surgical History: Bariatric Surgery, Hernia Repair Additional Past Surgical History / Comment(s): GASTRIC SLEEVE. EGD Past Anesthesia/Blood Transfusion Reactions: No Reported Reaction, Motion Sickness Past Psychological History: Anxiety Smoking Status: Former smoker Past Alcohol Use History: None Reported Past Drug Use History: None Reported - Past Family History Mother Family Medical History: Cancer Additional Family Medical History / Comment(s): Father Family Medical History: Hypertension Additional Family Medical History / Comment(s): Brother(s) Family Medical History: Asthma, COPD, Hypertension General Exam - General Exam Comments Initial Comments: GENERAL: Patient is well-developed and well-nourished. Patient is nontoxic and well- hydrated and is in no acute distress. ENT: Neck is soft and supple. No significant lymphadenopathy is noted. Oropharynx is clear. Moist mucous membranes. Neck has full range of motion without eliciting any pain. EYES: The sclera were anicteric and conjunctiva were pink and moist. Extraocular movements were intact and pupils were equal round and reactive to light. Eyelids were unremarkable. PULMONARY: Unlabored respirations. Good breath sounds bilaterally. No audible rales rhonchi or wheezing was noted. CARDIOVASCULAR: There is a regular rate and rhythm without any murmurs gallops or rubs. ABDOMEN: Soft and nontender with normal bowel sounds. SKIN: Patient has an open wound on the anterior aspect of the right foot that goes down to the tendon. NEUROLOGIC: Patient is alert and oriented x3. Cranial nerves II through XII are grossly intact. MUSCULOSKELETAL: Patient is a wound on the right foot LYMPHATICS: No significant lymphadenopathy is noted PSYCHIATRIC: Normal psychiatric evaluation. Limitations: no limitations Course Vital Signs 08/02/23 08/02/23 11:39 14:05 Temperature 98.2 F Pulse Rate 82 60 Respiratory 18 18 Rate Blood Pressure 109/96 100/70 O2 Sat by Pulse 97 100 Oximetry Medical Decision Making - Medical Decision Making Was pt. sent in by a medical professional or institution (, PA, MEDICAL TRANSCRIPTION SUPERVISOR, urgent care, hospital, or custodial...) When possible be specific @ -No Did you speak to anyone other than the patient for history (EMS, parent, family, police, friend...)? What history was obtained from this source @ -No Did you review nursing and triage notes (agree or disagree)? Why? @ -I reviewed and agree with nursing and triage notes Were old charts reviewed (outside hosp., previous admission, EMS record, old EKG, old radiological studies, urgent care reports/EKG's, custodial records)? Report findings @ -No old charts were reviewed Differential Diagnosis (chest pain, altered mental status, abdominal pain women, abdominal pain men, vaginal bleeding, weakness, fever, dyspnea, syncope, headache, dizziness, GI bleed, back pain, seizure, CVA, palpatations, mental health, musculoskeletal)? @ -not applicable EKG interpreted by me (3pts min.). @ -As above X-rays interpreted by me (1pt min.). @ -None done CT interpreted by me (1pt min.). @ -None done U/S interpreted by me (1pt. min.). @ -None done What testing was considered but not performed or refused? (CT, X-rays, U/S, labs)? Why? @ -None What meds were considered but not given or refused? Why? @ -None Did you discuss the management of the patient with other professionals (professionals i.e. , PA, MEDICAL TRANSCRIPTION SUPERVISOR, lab, RT, psych nurse, director of social work, academic coach, teacher, chief accounting officer, field nurse case manager)? Give summary @ -I spoke with Dr. Salamanca he agreed to admit the patient admitted the patient I consulted Sayed. I started the patient on Invanz. Was smoking cessation discussed for >3mins.? @ -No Was critical care preformed (if so, how long)? @ -No Were there social determinants of health that impacted care today? How? (Homelessness, low income, unemployed, alcoholism, drug addiction, transportation, low edu. Level, literacy, decrease access to med. care, intermediate, rehab)? @ -No Was there de-escalation of care discussed even if they declined (Discuss DNR or withdrawal of care, Hospice)? DNR status @ -No What co-morbidities impacted this encounter? (DM, HTN, Smoking, COPD, CAD, Cancer, CVA, ARF, Chemo, Hep., AIDS, mental health diagnosis, sleep apnea, morbid obesity)? @ -None Was patient admitted / discharged? Hospital course, mention meds given and route, prescriptions, significant lab abnormalities, going to OR and other pert inent info. @ -Patient will be admitted to the hospital because he pulled out his PICC line and Invanz will be started Undiagnosed new problem with uncertain prognosis? @ -No Drug Therapy requiring intensive monitoring for toxicity (Heparin, Nitro, Insulin, Cardizem)? @ -No Were any procedures done? @ -No Diagnosis/symptom? @ -Chronic foot wound Acute, or Chronic, or Acute on Chronic? @ -Chronic Uncomplicated (without systemic symptoms) or Complicated (systemic symptoms)? @ -Complicated Side effects of treatment? @ -No Exacerbation, Progression, or Severe Exacerbation? @ -No Poses a threat to life or bodily function? How? (Chest pain, [place], [place], pneumonia, PE, COPD, DKA, ARF, appy, cholecystitis, CVA, Diverticulitis, Homicidal, Suicidal, threat to staff... and all critical care pts) @ -No Diagnosis/symptom? @ -PICC line malfunction Acute, or Chronic, or Acute on Chronic? @ -Acute Uncomplicated (without systemic symptoms) or Complicated (systemic symptoms)? @ -Complicated Side effects of treatment? @ -none Exacerbation, Progression, or Severe Exacerbation] @ -no Poses a threat to life or bodily function? @ -no - Lab Data Result diagrams: 08/02/23 13:45 08/02/23 13:45 Lab Results 08/02/23 08/02/23 08/02/23 Range/Units 13:45 13:45 13:45 WBC 9.0 (3.8-10.6) k/uL RBC 5.11 (4.30-5.90) m/uL Hgb 11.5 L (13.0-17.5) gm/dL Hct 38.5 L (39.0-53.0) % MCV 75.4 L (80.0-100.0) fL MCH 22.4 L (25.0-35.0) pg MCHC 29.7 L (31.0-37.0) g/dL RDW 18.2 H (11.5-15.5) % Plt Count 464 H (150-450) k/uL MPV 6.9 Neutrophils % 62 % Lymphocytes % 27 % Monocytes % 7 % Eosinophils % 1 % Basophils % 0 % Neutrophils # 5.6 (1.3-7.7) k/uL Lymphocytes # 2.4 (1.0-4.8) k/uL Monocytes # 0.6 (0-1.0) k/uL Eosinophils # 0.1 (0-0.7) k/uL Basophils # 0.0 (0-0.2) k/uL Hypochromasia Marked Anisocytosis Slight Microcytosis Moderate Sodium 137 (137-145) mmol/L Potassium 4.3 (3.5-5.1) mmol/L Chloride 94 L (98-107) mmol/L Carbon Dioxide 34 H (22-30) mmol/L Anion Gap 9 mmol/L BUN 27 H (9-20) mg/dL Creatinine 1.01 (0.66-1.25) mg/dL Est GFR (CKD-EPI)AfAm >90 (>60 ml/min/1.73 sqM) Est GFR (CKD-EPI)NonAf 81 (>60 ml/min/1.73 sqM) Glucose 120 H (74-99) mg/dL Plasma Lactic Acid Antony 1.4 (0.7-2.0) mmol/L Calcium 9.3 (8.4-10.2) mg/dL Total Bilirubin 0.8 (0.2-1.3) mg/dL AST 18 (17-59) U/L ALT 11 (4-49) U/L Alkaline Phosphatase 79 (38-126) U/L Total Protein 7.0 (6.3-8.2) g/dL Albumin 3.6 (3.5-5.0) g/dL Disposition Clinical Impression: Wound of foot, Displacement of peripherally inserted central catheter (PICC) Disposition: ADMITTED IP TO THIS HOSP Referrals: Arnold Aburto [Primary Care Provider] - 1-2 days Time of Disposition: 14:59
--- NOTE | 2023-08-02 12:29 | XR ---
EXAMINATION TYPE: XR foot limited RT DATE OF EXAM: 08/02/2023 12:06 PM CLINICAL INDICATION:Male, 62 years old with history of Osteomyelitis; COMPARISON: None TECHNIQUE: XR foot limited RT examined in the AP, oblique, and lateral projections. FINDINGS: Soft tissue swelling without evidence for osseous erosion. Multifocal degeneration changes throughout the foot. Calcaneal plantar spurring is present. No evidence of fracture or dislocation. IMPRESSION: 1. No evidence of acute fracture. 2. No evidence for osseous erosion.
[2023-08-02 14:17] LABS: Anisocytosis Slight; Basophils % (A) 0 %; Eosinophils # (A) 0.1 k/uL (0-0.7); Eosinophils % (A) 1 %; HCT 38.5 % (39.0-53.0); HGB 11.5 gm/dL (13.0-17.5); Hypochromasia Marked; Lymphocytes # (A) 2.4 k/uL (1.0-4.8); Lymphocytes % (A) 27 %; MCH 22.4 pg (25.0-35.0); MCHC 29.7 g/dL (31.0-37.0); MCV 75.4 fL (80.0-100.0); Mean Platelet Volume 6.9; Microcytosis Moderate; Monocytes # (A) 0.6 k/uL (0-1.0); Monocytes % (A) 7 %; Neutrophils # (A) 5.6 k/uL (1.3-7.7); Neutrophils % (A) 62 %; Platelet Count 464 k/uL (150-450); RBC 5.11 m/uL (4.30-5.90); RDW 18.2 % (11.5-15.5)
[2023-08-02 14:28] LABS: ALT 11 U/L (4-49); AST 18 U/L (17-59); African American GFR (CKD) >90 (>60 ml/min/1.73 sqM); Albumin 3.6 g/dL (3.5-5.0); Alkaline Phosphatase 79 U/L (38-126); Anion Gap 9 mmol/L; Blood Urea Nitrogen 27 mg/dL (9-20); Calcium 9.3 mg/dL (8.4-10.2); Carbon Dioxide 34 mmol/L (22-30); Chloride 94 mmol/L (98-107); Glucose 120 mg/dL (74-99); Non-African American GFR(CKD) 81 (>60 ml/min/1.73 sqM); Potassium 4.3 mmol/L (3.5-5.1); Sodium 137 mmol/L (137-145); Total Bilirubin 0.8 mg/dL (0.2-1.3)
[2023-08-02] MEDS ORDERED: polyethylene glycoL 3350 17 GM POWD.PACK PO PRN (20:08)
[2023-08-02] MEDS ORDERED: ACETAMINOPHEN TAB 325 MG TAB PO PRN (20:08)
[2023-08-02] MEDS ORDERED: DEXTROSE 50% SYRINGE 50 ML IVP PRN ×2 (20:10)
--- NOTE | 2023-08-02 20:25 | P.HPIM ---
History of Present Illness H&P Date: 08/02/23 Chief Complaint: Foot infection Patient is a 62-year-old male with a known history of atrial fibrillation on anticoagulation with Xarelto, hypertension, hyperlipidemia, diabetes type 2 insulin-dependent, obstructive sleep apnea on CPAP at home, diabetic peripheral neuropathy and morbid obesity who was recently in the hospital from 07/28/2023 to 07/31/2023 due to diabetic right foot infection status post I&D on 07/28/2023 and is on antibiotics due to ESBL bacterial infection. Patient is currently on Invanz via PICC line. Patient also noticed purulent discharge from the right foot wound. Patient pulled the PICC line out last night. Patient's family called visiting nurse and was recommended to go to ER since the patient has not of getting antibiotics. Otherwise patient denies any complaints of fever or chills. No nausea vomiting abdominal pain or diarrhea. No cough or sputum production. X-ray of the foot on admission showed no evidence of acute fracture. No evidence of osseous erosion. Laboratory data showed WBC 9.0 hemoglobin 11.5 and platelets 464 Sodium 137 potassium 4.3 chloride 94 bicarb is 34 BUN 27 creatinine 1.01 and blood sugar 120. Liver enzymes are not elevated. Review of Systems Constitutional: Patient denies any fever or chills . no Generalized weakness. Abdomen: Patient denied any nausea or vomiting or abd. pain Cardiovascular: Patient denies any chest pain or short of breath no palpitations. Respiratory: patient denied any cough . no sputum production. No shortness of breath Neurologic: Patient denied any numbness or tingling or headache. Musculoskeletal: Patient denies any complaints of joint swelling or deformity. Skin: Right foot infection Psychiatric: Negative Endocrine: No heat or cold intolerance. No recent weight gain. Genitourinary: No dysuria or hematuria. All other 14 point ROS negative except the above Past Medical History Past Medical History: Atrial Fibrillation, CVA/TIA, Diabetes Mellitus, GERD/Reflux, Hyperlipidemia, Hypertension, Sleep Apnea/CPAP/BIPAP Additional Past Medical History / Comment(s): diabetic neuropathy, "leaky valve", frequent foot & ankle swelling, USES C-PAP, shortness of breath, unable to walk distances. morbid obesity History of Any Multi-Drug Resistant Organisms: None Reported, ESBL Date of last positivie culture/infection: 07/25/23 ESBL MDRO Source:: Right Foot Past Surgical History: Bariatric Surgery, Hernia Repair Additional Past Surgical History / Comment(s): GASTRIC SLEEVE. EGD Past Anesthesia/Blood Transfusion Reactions: No Reported Reaction, Motion Sickness Past Psychological History: Anxiety Smoking Status: Former smoker Past Alcohol Use History: None Reported Additional Past Alcohol Use History / Comment(s): QUIT SMOKING 2004 Past Drug Use History: None Reported Additional Drug Use History / Comment(s): positive for cocaine and benzos on tox screen 07/26/23. - Past Family History Mother Family Medical History: Cancer Additional Family Medical History / Comment(s): Father Family Medical History: Hypertension Additional Family Medical History / Comment(s): Brother(s) Family Medical History: Asthma, COPD, Hypertension Medications and Allergies Home Medications Medication Instructions Recorded Confirmed Type Omeprazole [PriLOSEC] 20 mg PO DAILY@0600 06/27/20 08/02/23 History Pioglitazone [Actos] 30 mg PO DAILY 06/27/20 08/02/23 History Rivaroxaban [Xarelto] 20 mg PO DAILY@1700 06/27/20 08/02/23 History Acetaminophen Tab [Tylenol] 650 mg PO Q6H PRN 05/25/23 08/02/23 History Atorvastatin [Lipitor] 20 mg PO HS 05/25/23 08/02/23 History Budesonide [Pulmicort] 0.5 mg INHALATION RT-BID 05/25/23 08/02/23 History Cetirizine HCl [Zyrtec] 10 mg PO DAILY 05/25/23 08/02/23 History Cholecalciferol [Vitamin D3 (25 25 mcg PO DAILY 05/25/23 08/02/23 History Mcg = 1000 Iu)] Empagliflozin [Jardiance] 10 mg PO DAILY 05/25/23 08/02/23 History Hydrophilic Cream [Triad (Kerodex 1 applic TOPICAL HS 05/25/23 08/02/23 History geq)] Hydrophilic Cream [Triad (Kerodex 1 applic TOPICAL Q12H PRN 05/25/23 08/02/23 History geq)] Insulin Lispro [humaLOG Kwikpen] See Protocol SQ QID 05/25/23 08/02/23 History Ipratropium-Albuterol Nebulize 3 ml INHALATION RT-Q6H 05/25/23 08/02/23 History [Duoneb 0.5 mg-3 mg/3 ml Soln] Metoprolol Tartrate [Lopressor] 25 mg PO BID 05/25/23 08/02/23 History Sennosides [Senokot] 8.6 mg PO BID 05/25/23 08/02/23 History Tirzepatide [Mounjaro] 7.5 mg SQ FR 05/25/23 08/02/23 History polyethylene glycoL 3350 [Miralax] 17 gm PO DAILY PRN 05/25/23 08/02/23 History Baclofen 10 mg PO BID 07/25/23 08/02/23 History Fluticasone Nasal [place] [Flonase 2 spr EA NOSTRIL DAILY 07/25/23 08/02/23 History Nasal [place]] Furosemide [Lasix] 60 mg PO DAILY 07/25/23 08/02/23 History Insulin Degludec [Tresiba 30 units SQ DAILY 07/25/23 08/02/23 History Flextouch U-200 Pen] Naloxone HCl [Narcan] 4 mg NASAL DIRECTED PRN 07/25/23 08/02/23 History Cyanocobalamin [Vitamin B-12] 1,000 mcg PO DAILY #60 tab 07/31/23 08/02/23 Rx Ertapenem [INVanz] 1 gm IVPB DAILY each 07/31/23 08/02/23 Rx Folic Acid 1 mg PO DAILY #30 tab 07/31/23 08/02/23 Rx HYDROcodone/APAP 7.5-325MG [[place] 1 tab PO TID PRN #9 tab 07/31/23 08/02/23 Rx 7.5-325] Thiamine [Vitamin B-1] 100 mg PO DAILY #30 tab 07/31/23 08/02/23 Rx Gabapentin 800 mg PO TID 08/02/23 08/02/23 History Allergies Allergy/AdvReac Type Severity Reaction Status Date / Time latex Allergy Rash/Hives Verified 08/02/23 15:15 Physical Exam Vitals: Vital Signs Temp Pulse Resp BP Pulse Ox 08/02/23 16:51 72 18 101/77 98 08/02/23 15:00 71 18 101/72 97 08/02/23 14:05 60 18 100/70 100 08/02/23 11:39 98.2 F 82 18 109/96 97 Intake and Output 08/02/23 08/02/23 08/02/23 06:59 14:59 22:59 Other: Weight 181.437 kg 181.437 kg PHYSICAL EXAMINATION: Patient is lying in the bed comfortably, no acute distress, awake alert and oriented. Morbidly obese. HEENT: Normocephalic. Neck is supple. Pupils reactive. Nostrils clear. Oral cavity is moist. Neck reveals no JVD, carotid bruits, or thyromegaly. CHEST EXAMINATION: Trachea is central. Symmetrical expansion. Bibasilar diminished sounds. No wheezing or rhonchi. CARDIAC: Normal S1, S2 with no gallops. No murmurs ABDOMEN: Soft. Bowel sounds present. Nontender. No organomegaly. No abdominal bruits. Extremities: Trace bilateral pedal edema. Patient does have wound on the right dorsum of the foot. Purulent base. No active discharge. No clubbing or cyanosis Neurologically awake, alert, oriented x3 with well-coordinated movements. No focal deficits noted Skin: No rash or skin lesions. Psychiatric: Coperative. Nonsuicidal, Musculoskeletal: No joint swelling or deformity. Normal range of motion. Results CBC & Chem 7: 08/02/23 13:45 08/02/23 13:45 Labs: Abnormal Lab Results - Last 24 Hours (Table) 08/02/23 08/02/23 Range/Units 13:45 13:45 Hgb 11.5 L (13.0-17.5) gm/dL Hct 38.5 L (39.0-53.0) % MCV 75.4 L (80.0-100.0) fL MCH 22.4 L (25.0-35.0) pg MCHC 29.7 L (31.0-37.0) g/dL RDW 18.2 H (11.5-15.5) % Plt Count 464 H (150-450) k/uL Chloride 94 L (98-107) mmol/L Carbon Dioxide 34 H (22-30) mmol/L BUN 27 H (9-20) mg/dL Glucose 120 H (74-99) mg/dL Thrombosis Risk Factor Assmnt - DVT/VTE Prophylaxis DVT/VTE Prophylaxis: Pharmacologic Prophylaxis ordered - Choose All That Apply Each Factor Represents 1 point: Age 41-60 years, Obesity (BMI >25) Other Risk Factors: No Other congenital or acquired thrombophilia - If yes, enter type in comment: No Thrombosis Risk Factor Assessment Total Risk Factor Score: 2 Thrombosis Risk Factor Assessment Level: Low Risk Assessment and Plan Assessment: Right diabetic foot infection with recent I&D on 07/28/2023. Wound cultures [facility] ESBL. Klebsiella, Enterococcus and procidentia. Uncontrolled diabetes type 2 insulin-dependent. A1c 7.9 Folate deficiency Microcytic anemia with hemoglobin 11.5. Rule out iron deficiency. Hypertension Paroxysmal atrial fibrillation on anticoagulation with Xarelto COPD/asthma not in exacerbation Prior history of smoking Morbid obesity BMI 60.8 Polysubstance abuse with recent drug screen showing cocaine and benzodiazepines. DVT prophylaxis and GI prophylaxis. Plan: Patient will be started back on antibiotics Invanz and ID reconsulted. IV team for PICC line placement. Start back on home blood pressure medications and insulin regimen and insulin sliding scale. Continue with metoprolol and Xarelto Continue with pain management and follow-up closely. Prognosis is guarded. Time with Patient: Greater than 30
[2023-08-02] MEDS: INSULIN ASPART (NovoLOG) 100 UNIT/ML VIAL SQ SCH (21:06)
[2023-08-02] MEDS: BACLOFEN 10 MG TAB PO SCH (21:07)
[2023-08-02] MEDS: GABAPENTIN 400 MG CAP PO SCH (21:07)
[2023-08-02] MEDS: ATORVASTATIN 20 MG TAB PO SCH (21:07)
[2023-08-02] MEDS: SENNOSIDES 8.6 MG TAB PO SCH (21:07)
[2023-08-02] MEDS: METOPROLOL TARTRATE 25 MG TAB PO SCH (21:07)
[2023-08-02] MEDS: HYDROcodone/APAP 7.5-325MG 1 EACH TAB PO PRN (21:09)
[2023-08-02 21:48] LABS: Glucose,Whole Blood 169 mg/dL (70-110)
--- NOTE | 2023-08-02 22:40 | P.CONS ---
History of Present Illness - Reason for Consult Consult date: 08/02/23 - History of Present Illness Patient is a 62-year-old male with a past medical his significant for diabetes mellitus hypertension hyperlipidemia reflux atrial fibrillation he was recently admitted to this facility and the patient did have right diabetic foot ulcer on the dorsum aspect of the right foot superficial culture positive for ESBL Klebsiella along with Enterococcus faecalis patient was subsequently ev aluated by vascular surgery did have debridement of the right foot dorsal wound with a tendon exposed and deep culture also positive for ESBL Klebsiella patient did get a PICC line and was advised for a course of IV Invanz and the patient was discharged home on 07/31/2023, patient has not been brought back to the hospital after the patient accidentally pulled out his PICC line last night and the patient did not have any IV access to receive his medication patient not clear how the PICC line came out, patient denies having any fever any chills no headache no chest pain shortness of breath or cough no nausea vomiting no abdominal pain the patient denies pain to the right foot dorsal wound or any foul-smelling drainage patient on presentation to the hospital was afebrile no fever has been recorded subsequently patient did have white count of 9.0 creatinine 1.01 liver exams are normal patient was started on Invanz infectious disease was consulted for further management of antibiotic therapy Past Medical History Past Medical History: Atrial Fibrillation, CVA/TIA, Diabetes Mellitus, GERD/Reflux, Hyperlipidemia, Hypertension, Sleep Apnea/CPAP/BIPAP Additional Past Medical History / Comment(s): diabetic neuropathy, "leaky valve", frequent foot & ankle swelling, USES C-PAP, shortness of breath, unable to walk distances. rhabdo History of Any Multi-Drug Resistant Organisms: ESBL Year Discovered:: 07/25/23 ESBL MDRO Source:: Right Foot Past Surgical History: Bariatric Surgery, Hernia Repair Additional Past Surgical History / Comment(s): GASTRIC SLEEVE. EGD Past Anesthesia/Blood Transfusion Reactions: No Reported Reaction, Motion Sickness Past Psychological History: Anxiety Smoking Status: Former smoker Past Alcohol Use History: None Reported Past Drug Use History: None Reported - Past Family History Mother Family Medical History: Cancer Additional Family Medical History / Comment(s): Father Family Medical History: Hypertension Additional Family Medical History / Comment(s): Brother(s) Family Medical History: Asthma, COPD, Hypertension Medications and Allergies Home Medications Medication Instructions Recorded Confirmed Type Omeprazole [PriLOSEC] 20 mg PO DAILY@0600 06/27/20 08/02/23 History Pioglitazone [Actos] 30 mg PO DAILY 06/27/20 08/02/23 History Rivaroxaban [Xarelto] 20 mg PO DAILY@1700 06/27/20 08/02/23 History Acetaminophen Tab [Tylenol] 650 mg PO Q6H PRN 05/25/23 08/02/23 History Atorvastatin [Lipitor] 20 mg PO HS 05/25/23 08/02/23 History Budesonide [Pulmicort] 0.5 mg INHALATION RT-BID 05/25/23 08/02/23 History Cetirizine HCl [Zyrtec] 10 mg PO DAILY 05/25/23 08/02/23 History Cholecalciferol [Vitamin D3 (25 25 mcg PO DAILY 05/25/23 08/02/23 History Mcg = 1000 Iu)] Empagliflozin [Jardiance] 10 mg PO DAILY 05/25/23 08/02/23 History Hydrophilic Cream [Triad (Kerodex 1 applic TOPICAL HS 05/25/23 08/02/23 History geq)] Hydrophilic Cream [Triad (Kerodex 1 applic TOPICAL Q12H PRN 05/25/23 08/02/23 History geq)] Insulin Lispro [humaLOG Kwikpen] See Protocol SQ QID 05/25/23 08/02/23 History Ipratropium-Albuterol Nebulize 3 ml INHALATION RT-Q6H 05/25/23 08/02/23 History [Duoneb 0.5 mg-3 mg/3 ml Soln] Metoprolol Tartrate [Lopressor] 25 mg PO BID 05/25/23 08/02/23 History Sennosides [Senokot] 8.6 mg PO BID 05/25/23 08/02/23 History Tirzepatide [Mounjaro] 7.5 mg SQ FR 05/25/23 08/02/23 History polyethylene glycoL 3350 [Miralax] 17 gm PO DAILY PRN 05/25/23 08/02/23 History Baclofen 10 mg PO BID 07/25/23 08/02/23 History Fluticasone Nasal [place] [Flonase 2 spr EA NOSTRIL DAILY 07/25/23 08/02/23 History Nasal Logan] Furosemide [Lasix] 60 mg PO DAILY 07/25/23 08/02/23 History Insulin Degludec [Tresiba 30 units SQ DAILY 07/25/23 08/02/23 History Flextouch U-200 Pen] Naloxone HCl [Narcan] 4 mg NASAL DIRECTED PRN 07/25/23 08/02/23 History Cyanocobalamin [Vitamin B-12] 1,000 mcg PO DAILY #60 tab 07/31/23 08/02/23 Rx Ertapenem [INVanz] 1 gm IVPB DAILY each 07/31/23 08/02/23 Rx Folic Acid 1 mg PO DAILY #30 tab 07/31/23 08/02/23 Rx HYDROcodone/APAP 7.5-325MG [[place] 1 tab PO TID PRN #9 tab 07/31/23 08/02/23 Rx 7.5-325] Thiamine [Vitamin B-1] 100 mg PO DAILY #30 tab 07/31/23 08/02/23 Rx Gabapentin 800 mg PO TID 08/02/23 08/02/23 History Allergies Allergy/AdvReac Type Severity Reaction Status Date / Time latex Allergy Rash/Hives Verified 08/02/23 15:15 Physical Exam Vitals: Vital Signs Temp Pulse Resp BP Pulse Ox 08/02/23 14:05 60 18 100/70 100 08/02/23 11:39 98.2 F 82 18 109/96 97 Intake and Output 08/02/23 08/02/23 08/02/23 06:59 14:59 22:59 Other: Weight 181.437 kg Results CBC & Chem 7: 08/02/23 13:45 08/02/23 13:45 Labs: Abnormal Lab Results - Last 24 Hours (Table) 08/02/23 08/02/23 Range/Units 13:45 13:45 Hgb 11.5 L (13.0-17.5) gm/dL Hct 38.5 L (39.0-53.0) % MCV 75.4 L (80.0-100.0) fL MCH 22.4 L (25.0-35.0) pg MCHC 29.7 L (31.0-37.0) g/dL RDW 18.2 H (11.5-15.5) % Plt Count 464 H (150-450) k/uL Chloride 94 L (98-107) mmol/L Carbon Dioxide 34 H (22-30) mmol/L BUN 27 H (9-20) mg/dL Glucose 120 H (74-99) mg/dL Assessment and Plan Plan: 1patient with recent admission to the hospital with right diabetic foot wound and second cellulitis with culture positive for ESBL Klebsiella for the patient was receiving Invanz through a PICC line with the patient has accidentally pulled out the present to the hospital with no IV access patient not running any fever denies any pain to the right foot wound and evidence of any worsening cellulitis to the right foot has been noticed on clinical admission patient did have a normal white count 2-we will try to obtain a PICC line so the patient continue his antibiotic in the outpatient setting 3-continue with Invanz 1 g daily local wound care with the Medihoney followed by moist dressing change daily We will follow on clinical condition and cultures to further adjust medication if needed Thank you for this consultation we will follow the patient along with you Dictation was produced using [employer] dictation software. please excuse any grammatical, word or spelling errors. Time with Patient: Greater than 30
[2023-08-03 01:03] LABS: Glucose,Whole Blood 165 mg/dL (70-110)
[2023-08-03] MEDS ORDERED: IPRATROPIUM-ALBUTEROL 3 ML NEB INHALATION SCH (02:00)
[2023-08-03 05:40] LABS: Glucose,Whole Blood 163 mg/dL (70-110)
[2023-08-03] MEDS: PANTOPRAZOLE 40 MG TABLET PO SCH (06:06)
[2023-08-03] MEDS: INSULIN ASPART (NovoLOG) 100 UNIT/ML VIAL SQ SCH ×4 (06:07→20:53)
[2023-08-03] MEDS: IPRATROPIUM-ALBUTEROL 3 ML NEB INHALATION SCH ×4 (08:42→20:42)
[2023-08-03] MEDS: BUDESONIDE 0.5 MG/2 ML NEBU INHALATION SCH ×2 (08:42→20:42)
[2023-08-03] MEDS: FOLIC ACID 1 MG TAB PO SCH (09:05)
[2023-08-03] MEDS: INSULIN DETEMIR (LEVEMIR) 100 UNIT/ML SYR SQ SCH (09:05)
[2023-08-03] MEDS: SENNOSIDES 8.6 MG TAB PO SCH ×2 (09:05→20:53)
[2023-08-03] MEDS: CYANOCOBALAMIN 500 MCG TAB PO SCH (09:05)
[2023-08-03] MEDS: FUROSEMIDE 20 MG TAB PO SCH (09:05)
[2023-08-03] MEDS: GABAPENTIN 400 MG CAP PO SCH ×3 (09:05→20:53)
[2023-08-03] MEDS: METOPROLOL TARTRATE 25 MG TAB PO SCH ×2 (09:06→20:53)
[2023-08-03] MEDS: BACLOFEN 10 MG TAB PO SCH ×2 (09:06→20:53)
[2023-08-03] MEDS: ERTAPENEM 1 GM in SODIUM CHLORIDE 0.9% 50 ML IVPB SCH (09:06)
[2023-08-03] MEDS: HYDROcodone/APAP 7.5-325MG 1 EACH TAB PO PRN ×2 (09:20→17:42)
[2023-08-03 10:37] LABS: Basophils # (A) 0.04 X 10*3/uL (0.00-0.10); Basophils % (A) 0.5 %; Eosinophils # (A) 0.22 X 10*3/uL (0.04-0.35); Eosinophils % (A) 2.6 %; HCT 37.1 % (39.6-50.0); HGB 10.3 g/dL (13.0-17.0); Lymphocytes # (A) 2.54 X 10*3/uL (0.90-5.00); MCH 21.8 pg (27.0-32.0); MCHC 27.8 g/dL (32.0-37.0); MCV 78.4 FL (80.0-97.0); Mean Platelet Volume 9.3 FL (9.5-12.2); Monocytes # (A) 1.01 X 10*3/uL (0.20-1.00); Monocytes % (A) 11.9 %; NRBC Per 100 WBC 0 X 10*3/uL (0.00-0.01); Neutrophils # (A) 4.64 X 10*3/uL (1.80-7.70); Neutrophils % (A) 54.8 %; Platelet Count 443 X 10*3/uL (140-440); RBC 4.73 X 10*6/uL (4.40-5.60); WBC 8.47 X 10*3/uL (4.50-10.00)
[2023-08-03 12:10] LABS: % Iron Saturation 9.45 (15.00-50.00); BUN/Creat Ratio 22.91 Ratio (12.00-20.00); Blood Urea Nitrogen 25.2 mg/dL (9.0-27.0); Calcium 9.4 mg/dL (8.7-10.3); Carbon Dioxide 30.4 mmol/L (21.6-31.8); Chloride 95 mmol/L (96-109); Glucose 155 mg/dL (70-110); Iron 31 UG/DL (65-175); Potassium 3.6 mmol/L (3.5-5.5); Sodium 138 mmol/L (135-145); Total Iron Binding Capacity 328 UG/DL (228-460)
[2023-08-03 13:03] LABS: Glucose,Whole Blood 173 mg/dL (70-110)
--- NOTE | 2023-08-03 14:51 | P.PN ---
Subjective Progress Note Date: 08/03/23 Principal diagnosis: Reason for follow-up is right diabetic foot infection with ESBL Klebsiella Patient is a 62-year-old male with a past medical his significant for diabetes mellitus hypertension hyperlipidemia reflux atrial fibrillation he was recently admitted to this facility and the patient did have right diabetic foot ulcer on the dorsum aspect of the right foot superficial culture positive for ESBL Klebsiella along with Enterococcus faecalis, patient did get a PICC line and was advised remains subsequently admitted to hospital at the patient accidentally pulled out his PICC line and did not have any IV access sent to the hospital by the home care nurse On today's evaluation that is 08/03/2023 the patient continues to be afebrile, the patient is breathing comfortably on room air without need for supplemental oxygen patient denies having any chest pain shortness of breath or cough, the patient denies having any nausea no vomiting no abdominal pain no diarrhea or pain to the right foot wound area. Patient white count is 8.47, creatinine is 1.1 Objective - Vital Signs Vital signs: Vital Signs Temp 98.1 F 08/03/23 07:00 Pulse 78 08/03/23 08:42 Resp 16 08/03/23 07:00 BP 109/71 08/03/23 07:00 Pulse Ox 90 L 08/03/23 07:00 FiO2 Intake & Output 08/02/23 08/03/23 08/03/23 18:59 06:59 18:59 Output Total 300 Balance -300 Weight 181.437 kg Output: Urine 300 Other: Voiding Method External Catheter External Catheter # Bowel Movements 0 - Exam GENERAL DESCRIPTION: Middle-age male lying in bed in no distress RESPIRATORY SYSTEM: Unlabored breathing , decreased breath sounds at bases HEART: S1 S2 regular rate and rhythm , ABDOMEN: Soft , no tenderness EXTREMITIES: Right foot wound is currently dressed no drainage on the dressing - Labs CBC & Chem 7: 08/03/23 05:36 08/03/23 05:36 Labs: Abnormal Lab Results - Last 24 Hours (Table) 08/02/23 08/02/23 08/02/23 Range/Units 13:45 13:45 21:02 Hgb 11.5 L (13.0-17.5) gm/dL Hct 38.5 L (39.0-53.0) % MCV 75.4 L (80.0-100.0) fL MCH 22.4 L (25.0-35.0) pg MCHC 29.7 L (31.0-37.0) g/dL RDW 18.2 H (11.5-15.5) % Plt Count 464 H (150-450) k/uL MPV (9.5-12.2) FL Monocytes # (0.20-1.00) X 10*3/uL Chloride 94 L (98-107) mmol/L Carbon Dioxide 34 H (22-30) mmol/L Anion Gap (4.00-12.00) mmol/L BUN 27 H (9-20) mg/dL BUN/Creatinine Ratio (12.00-20.00) Ratio Glucose 120 H (74-99) mg/dL POC Glucose (mg/dL) 169 H (70-110) mg/dL Hemoglobin A1c (<=6.0) % Iron (65-175) UG/DL % Saturation (15.00-50.00) 08/03/23 08/03/23 08/03/23 Range/Units 01:02 05:20 05:36 Hgb (13.0-17.5) gm/dL Hct (39.0-53.0) % MCV (80.0-100.0) fL MCH (25.0-35.0) pg MCHC (31.0-37.0) g/dL RDW (11.5-15.5) % Plt Count (150-450) k/uL MPV (9.5-12.2) FL Monocytes # (0.20-1.00) X 10*3/uL Chloride 95 L (98-107) mmol/L Carbon Dioxide (22-30) mmol/L Anion Gap 12.60 H (4.00-12.00) mmol/L BUN (9-20) mg/dL BUN/Creatinine Ratio 22.91 H (12.00-20.00) Ratio Glucose 155 H (74-99) mg/dL POC Glucose (mg/dL) 165 H (70-110) mg/dL Hemoglobin A1c 7.6 H (<=6.0) % Iron 31 L (65-175) UG/DL % Saturation 9.45 L (15.00-50.00) 08/03/23 08/03/23 Range/Units 05:36 05:39 Hgb 10.3 L (13.0-17.5) gm/dL Hct 37.1 L (39.0-53.0) % MCV 78.4 L (80.0-100.0) fL MCH 21.8 L (25.0-35.0) pg MCHC 27.8 L (31.0-37.0) g/dL RDW 19.0 H (11.5-15.5) % Plt Count 443 H (150-450) k/uL MPV 9.3 L (9.5-12.2) FL Monocytes # 1.01 H (0.20-1.00) X 10*3/uL Chloride (98-107) mmol/L Carbon Dioxide (22-30) mmol/L Anion Gap (4.00-12.00) mmol/L BUN (9-20) mg/dL BUN/Creatinine Ratio (12.00-20.00) Ratio Glucose (74-99) mg/dL POC Glucose (mg/dL) 163 H (70-110) mg/dL Hemoglobin A1c (<=6.0) % Iron (65-175) UG/DL % Saturation (15.00-50.00) Assessment and Plan (1) Diabetic foot ulcer associated with type 2 diabetes mellitus, with fat layer exposed Current Visit: No Status: Acute Code(s): E11.621 - TYPE 2 DIABETES MELLITUS WITH FOOT ULCER; L97.502 - NON-PRS CHRONIC ULCER OTH PRT UNSP FOOT W FAT LAYER EXPOSED SNOMED Code(s): 8071974979803 (2) ESBL (extended spectrum beta-lactamase) producing bacteria infection Current Visit: No Status: Acute Code(s): A49.9 - BACTERIAL INFECTION, UNSPECIFIED; Z16.12 - EXTENDED SPECTRUM BETA LACTAMASE (ESBL) RESISTANCE SNOMED Code(s): 609612640 (3) Foot ulcer Current Visit: No Status: Acute Code(s): L97.509 - NON-PRESSURE CHRONIC ULCER OTH PRT UNSP FOOT W UNSP SEVERITY SNOMED Code(s): 61026585 Plan: 1patient with recent admission to the hospital with right diabetic foot wound and second cellulitis with culture positive for ESBL Klebsiella for the patient was receiving Invanz through a PICC line with the patient has accidentally pulled out the present to the hospital with no IV access patient not running any fever denies any pain to the right foot wound and evidence of any worsening cellulitis to the right foot has been noticed on clinical admission patient did have a normal white count 2PICC line has been ordered currently waiting for placement. 3local wound care to continue with the Medihoney followed by moist dressing. 4continue with Invanz 1 g daily Dictation was produced using [employer] dictation software. please excuse any grammatical, word or spelling errors. Time with Patient: Less than 30
[2023-08-03] MEDS: SODIUM FERRIC GLUCONAT-SUCROSE 125 MG in SODIUM CHLORIDE 0.9% 100 ML IVPB SCH (15:58)
[2023-08-03 16:51] LABS: Glucose,Whole Blood 240 mg/dL (70-110)
[2023-08-03] MEDS: RIVAROXABAN 20 MG TAB PO SCH (17:42)
[2023-08-03 20:44] LABS: Glucose,Whole Blood 199 mg/dL (70-110)
[2023-08-03] MEDS: ATORVASTATIN 20 MG TAB PO SCH (20:53)
--- NOTE | 2023-08-03 23:22 | P.PN ---
Subjective Progress Note Date: 08/03/23 Patient is a 62-year-old male with a known history of atrial fibrillation on anticoagulation with Xarelto, hypertension, hyperlipidemia, diabetes type 2 insulin-dependent, obstructive sleep apnea on CPAP at home, diabetic peripheral neuropathy and morbid obesity who was recently in the hospital from 07/28/2023 to 07/31/2023 due to diabetic right foot infection status post I&D on 07/28/2023 and is on antibiotics due to ESBL bacterial infection. Patient is currently on Invanz via PICC line. Patient also noticed purulent discharge from the right foot wound. Patient pulled the PICC line out last night. Patient's family called visiting nurse and was recommended to go to ER since the patient has not of getting antibiotics. Otherwise patient denies any complaints of fever or chills. No nausea vomiting abdominal pain or diarrhea. No cough or sputum production. X-ray of the foot on admission showed no evidence of acute fracture. No evidence of osseous erosion. Laboratory data showed WBC 9.0 hemoglobin 11.5 and platelets 464 Sodium 137 potassium 4.3 chloride 94 bicarb is 34 BUN 27 creatinine 1.01 and blood sugar 120. Liver enzymes are not elevated. 08/03/2023 Patient is resting in bed. Awake alert and oriented x 3. Afebrile. On room air. No complaints of chest pain or shortness of breath. No nausea vomiting or abdominal pain. Denies any right lower extremity pain. No cough or sputum production. Patient is being continued on IV antibiotics for foot infection. Consult for PICC line placement blood pressure. Laboratory data showed WBC 8.4 hemoglobin 10.3, MCV 78.4 and platelets 443. Sodium 138 potassium 3.6 chloride 95 bicarb 30.4 BUN 25.20 creatinine 1.1 and blood sugar 163. A1c 7.6. Current medications reviewed. Objective - Vital Signs Vital signs: Vital Signs Temp 97.3 F L 08/03/23 19:26 Pulse 75 08/03/23 20:55 Resp 16 08/03/23 19:26 BP 108/75 08/03/23 20:55 Pulse Ox 94 L 08/03/23 20:55 FiO2 Intake & Output 08/03/23 08/03/23 08/04/23 06:59 18:59 06:59 Intake Total 540 Output Total 300 800 Balance -300 540 -800 Intake: Oral 540 Output: Urine 300 800 Other: Voiding Method External Catheter External Catheter External Catheter # Bowel Movements 0 - Exam PHYSICAL EXAMINATION: Patient is lying in the bed comfortably, no acute distress, awake alert and oriented. Morbidly obese. HEENT: Normocephalic. Neck is supple. Pupils reactive. Nostrils clear. Oral cavity is moist. Neck reveals no JVD, carotid bruits, or thyromegaly. CHEST EXAMINATION: Trachea is central. Symmetrical expansion. Bibasilar diminished sounds. No wheezing or rhonchi. CARDIAC: Normal S1, S2 with no gallops. No murmurs ABDOMEN: Soft. Bowel sounds present. Nontender. No organomegaly. No abdominal bruits. Extremities: Trace bilateral pedal edema. Patient does have wound on the right dorsum of the foot. Purulent base. No active discharge. No clubbing or cyanosis Neurologically awake, alert, oriented x3 with well-coordinated movements. No focal deficits noted Skin: No rash or skin lesions. Psychiatric: Coperative. Nonsuicidal, Musculoskeletal: No joint swelling or deformity. Normal range of motion. - Labs CBC & Chem 7: 08/03/23 05:36 08/03/23 05:36 Labs: Abnormal Lab Results - Last 24 Hours (Table) 08/03/23 08/03/23 08/03/23 Range/Units 01:02 05:20 05:36 Hgb (13.0-17.0) g/dL Hct (39.6-50.0) % MCV (80.0-97.0) FL MCH (27.0-32.0) pg MCHC (32.0-37.0) g/dL RDW (11.5-14.5) % Plt Count (140-440) X 10*3/uL MPV (9.5-12.2) FL Monocytes # (0.20-1.00) X 10*3/uL Chloride 95 L (96-109) mmol/L Anion Gap 12.60 H (4.00-12.00) mmol/L BUN/Creatinine Ratio 22.91 H (12.00-20.00) Ratio Glucose 155 H (70-110) mg/dL POC Glucose (mg/dL) 165 H (70-110) mg/dL Hemoglobin A1c 7.6 H (<=6.0) % Iron 31 L (65-175) UG/DL % Saturation 9.45 L (15.00-50.00) 08/03/23 08/03/23 08/03/23 Range/Units 05:36 05:39 13:02 Hgb 10.3 L (13.0-17.0) g/dL Hct 37.1 L (39.6-50.0) % MCV 78.4 L (80.0-97.0) FL MCH 21.8 L (27.0-32.0) pg MCHC 27.8 L (32.0-37.0) g/dL RDW 19.0 H (11.5-14.5) % Plt Count 443 H (140-440) X 10*3/uL MPV 9.3 L (9.5-12.2) FL Monocytes # 1.01 H (0.20-1.00) X 10*3/uL Chloride (96-109) mmol/L Anion Gap (4.00-12.00) mmol/L BUN/Creatinine Ratio (12.00-20.00) Ratio Glucose (70-110) mg/dL POC Glucose (mg/dL) 163 H 173 H (70-110) mg/dL Hemoglobin A1c (<=6.0) % Iron (65-175) UG/DL % Saturation (15.00-50.00) 08/03/23 08/03/23 Range/Units 16:50 20:43 Hgb (13.0-17.0) g/dL Hct (39.6-50.0) % MCV (80.0-97.0) FL MCH (27.0-32.0) pg MCHC (32.0-37.0) g/dL RDW (11.5-14.5) % Plt Count (140-440) X 10*3/uL MPV (9.5-12.2) FL Monocytes # (0.20-1.00) X 10*3/uL Chloride (96-109) mmol/L Anion Gap (4.00-12.00) mmol/L BUN/Creatinine Ratio (12.00-20.00) Ratio Glucose (70-110) mg/dL POC Glucose (mg/dL) 240 H 199 H (70-110) mg/dL Hemoglobin A1c (<=6.0) % Iron (65-175) UG/DL % Saturation (15.00-50.00) Assessment and Plan Assessment: Right diabetic foot infection with recent I&D on 07/28/2023. Wound cultures growing ESBL. Klebsiella, Enterococcus and procidentia. Uncontrolled diabetes type 2 insulin-dependent. A1c 7.9 Folate deficiency Iron deficiency anemia Microcytic anemia with hemoglobin 11.5 due to Iron deff Hypertension Paroxysmal atrial fibrillation on anticoagulation with Xarelto COPD/asthma not in exacerbation Prior history of smoking Morbid obesity BMI 60.8 Polysubstance abuse with recent drug screen showing cocaine and benzodiazepines. DVT prophylaxis and GI prophylaxis. Plan: Patient will be started back on antibiotics Invanz and ID is on board.. IV team for PICC line placement. Start back on home blood pressure medications and insulin regimen and insulin sliding scale. Continue with metoprolol and Xarelto Continue with pain management and follow-up closely. Patient will be supplemented with IV iron and also continue with folate. Prognosis is guarded.
[2023-08-04] MEDS: HYDROcodone/APAP 7.5-325MG 1 EACH TAB PO PRN ×2 (02:11→20:47)
[2023-08-04 06:09] LABS: Glucose,Whole Blood 213 mg/dL (70-110)
[2023-08-04] MEDS: INSULIN ASPART (NovoLOG) 100 UNIT/ML VIAL SQ SCH ×4 (06:25→20:47)
[2023-08-04] MEDS: PANTOPRAZOLE 40 MG TABLET PO SCH (06:25)
[2023-08-04] MEDS: IPRATROPIUM-ALBUTEROL 3 ML NEB INHALATION SCH ×4 (07:23→18:21)
[2023-08-04] MEDS: BUDESONIDE 0.5 MG/2 ML NEBU INHALATION SCH ×2 (07:24→18:21)
[2023-08-04] MEDS: INSULIN DETEMIR (LEVEMIR) 100 UNIT/ML SYR SQ SCH (08:31)
[2023-08-04] MEDS: ERTAPENEM 1 GM in SODIUM CHLORIDE 0.9% 50 ML IVPB SCH (08:31)
[2023-08-04] MEDS: BACLOFEN 10 MG TAB PO SCH ×2 (08:32→20:47)
[2023-08-04] MEDS: GABAPENTIN 400 MG CAP PO SCH ×3 (08:32→20:47)
[2023-08-04] MEDS: METOPROLOL TARTRATE 25 MG TAB PO SCH ×2 (08:32→20:47)
[2023-08-04] MEDS: CYANOCOBALAMIN 500 MCG TAB PO SCH (08:32)
[2023-08-04] MEDS: SENNOSIDES 8.6 MG TAB PO SCH ×2 (08:32→20:47)
[2023-08-04] MEDS: FOLIC ACID 1 MG TAB PO SCH (08:32)
[2023-08-04] MEDS: FUROSEMIDE 20 MG TAB PO SCH (08:32)
[2023-08-04 08:44] LABS: Basophils # (A) 0.04 X 10*3/uL (0.00-0.10); Basophils % (A) 0.4 %; Eosinophils # (A) 0.21 X 10*3/uL (0.04-0.35); Eosinophils % (A) 2.3 %; HCT 35.4 % (39.6-50.0); HGB 9.8 g/dL (13.0-17.0); Lymphocytes # (A) 2.12 X 10*3/uL (0.90-5.00); Lymphocytes % (A) 23.4 %; MCH 21.7 pg (27.0-32.0); MCHC 27.7 g/dL (32.0-37.0); MCV 78.5 FL (80.0-97.0); Mean Platelet Volume 9.5 FL (9.5-12.2); Monocytes # (A) 0.79 X 10*3/uL (0.20-1.00); Monocytes % (A) 8.7 %; NRBC Per 100 WBC 0 X 10*3/uL (0.00-0.01); Neutrophils # (A) 5.88 X 10*3/uL (1.80-7.70); Neutrophils % (A) 64.9 %; Platelet Count 431 X 10*3/uL (140-440); RBC 4.51 X 10*6/uL (4.40-5.60); RDW 18.5 % (11.5-14.5); WBC 9.07 X 10*3/uL (4.50-10.00)
[2023-08-04 08:59] LABS: BUN/Creat Ratio 21.33 Ratio (12.00-20.00); Blood Urea Nitrogen 25.6 mg/dL (9.0-27.0); Carbon Dioxide 32.5 mmol/L (21.6-31.8); Chloride 94 mmol/L (96-109); Glucose 199 mg/dL (70-110); Potassium 3.5 mmol/L (3.5-5.5); Sodium 138 mmol/L (135-145)
[2023-08-04 09:00] LABS: Calcium 8.8 mg/dL (8.7-10.3)
[2023-08-04] MEDS: SODIUM FERRIC GLUCONAT-SUCROSE 125 MG in SODIUM CHLORIDE 0.9% 100 ML IVPB SCH (09:41)
[2023-08-04 12:14] LABS: Glucose,Whole Blood 177 mg/dL (70-110)
--- NOTE | 2023-08-04 14:25 | P.PN ---
Subjective Progress Note Date: 08/04/23 Principal diagnosis: Reason for follow-up is right diabetic foot infection with ESBL Klebsiella Patient is a 62-year-old male with a past medical his significant for diabetes mellitus hypertension hyperlipidemia reflux atrial fibrillation he was recently admitted to this facility and the patient did have right diabetic foot ulcer on the dorsum aspect of the right foot superficial culture positive for ESBL Klebsiella along with Enterococcus faecalis, patient did get a PICC line and was advised remains subsequently admitted to hospital at the patient accidentally pulled out his PICC line and did not have any IV access sent to the hospital by the home care nurse On today's evaluation that is 08/04/2023, the patient remains to be afebrile the patient is breathing comfortably on room air, the patient denies any chest pain shortness of breath denies any cough or sputum production no nausea noted no abdominal pain no pain to the right foot wound area Patient white count is 9.07, creatinine is 1.2 Objective - Vital Signs Vital signs: Vital Signs Temp 97.7 F 08/04/23 07:00 Pulse 78 08/04/23 07:34 Resp 18 08/04/23 07:00 BP 110/65 08/04/23 07:00 Pulse Ox 94 L 08/04/23 07:28 FiO2 Intake & Output 08/03/23 08/04/23 08/04/23 18:59 06:59 18:59 Intake Total 540 600 Output Total 800 Balance 540 -200 Intake: Oral 540 600 Output: Urine 800 Other: Voiding Method External Catheter External Catheter - Exam GENERAL DESCRIPTION: Middle-age male lying in bed in no distress RESPIRATORY SYSTEM: Unlabored breathing , decreased breath sounds at bases HEART: S1 S2 regular rate and rhythm , ABDOMEN: Soft , no tenderness EXTREMITIES: Right foot wound is currently dressed no drainage on the dressing - Labs CBC & Chem 7: 08/04/23 06:18 08/04/23 06:18 Labs: Abnormal Lab Results - Last 24 Hours (Table) 08/03/23 08/03/23 08/03/23 Range/Units 05:36 13:02 16:50 Hgb (13.0-17.0) g/dL Hct (39.6-50.0) % MCV (80.0-97.0) FL MCH (27.0-32.0) pg MCHC (32.0-37.0) g/dL RDW (11.5-14.5) % Chloride 95 L (96-109) mmol/L Carbon Dioxide (21.6-31.8) mmol/L Anion Gap 12.60 H (4.00-12.00) mmol/L BUN/Creatinine Ratio 22.91 H (12.00-20.00) Ratio Glucose 155 H (70-110) mg/dL POC Glucose (mg/dL) 173 H 240 H (70-110) mg/dL Iron 31 L (65-175) UG/DL % Saturation 9.45 L (15.00-50.00) 08/03/23 08/04/23 08/04/23 Range/Units 20:43 06:05 06:18 Hgb 9.8 L (13.0-17.0) g/dL Hct 35.4 L (39.6-50.0) % MCV 78.5 L (80.0-97.0) FL MCH 21.7 L (27.0-32.0) pg MCHC 27.7 L (32.0-37.0) g/dL RDW 18.5 H (11.5-14.5) % Chloride (96-109) mmol/L Carbon Dioxide (21.6-31.8) mmol/L Anion Gap (4.00-12.00) mmol/L BUN/Creatinine Ratio (12.00-20.00) Ratio Glucose (70-110) mg/dL POC Glucose (mg/dL) 199 H 213 H (70-110) mg/dL Iron (65-175) UG/DL % Saturation (15.00-50.00) 08/04/23 Range/Units 06:18 Hgb (13.0-17.0) g/dL Hct (39.6-50.0) % MCV (80.0-97.0) FL MCH (27.0-32.0) pg MCHC (32.0-37.0) g/dL RDW (11.5-14.5) % Chloride 94 L (96-109) mmol/L Carbon Dioxide 32.5 H (21.6-31.8) mmol/L Anion Gap (4.00-12.00) mmol/L BUN/Creatinine Ratio 21.33 H (12.00-20.00) Ratio Glucose 199 H (70-110) mg/dL POC Glucose (mg/dL) (70-110) mg/dL Iron (65-175) UG/DL % Saturation (15.00-50.00) Microbiology - Last 24 Hours (Table) 08/02/23 14:00 Blood Culture - Preliminary Blood 08/02/23 13:45 Blood Culture - Preliminary Blood Assessment and Plan (1) Diabetic foot ulcer associated with type 2 diabetes mellitus, with fat layer exposed Current Visit: No Status: Acute Code(s): E11.621 - TYPE 2 DIABETES MELLITUS WITH FOOT ULCER; L97.502 - NON-PRS CHRONIC ULCER OTH PRT UNSP FOOT W FAT LAYER EXPOSED SNOMED Code(s): 8437604837555 (2) ESBL (extended spectrum beta-lactamase) producing bacteria infection Current Visit: No Status: Acute Code(s): A49.9 - BACTERIAL INFECTION, UNSPECIFIED; Z16.12 - EXTENDED SPECTRUM BETA LACTAMASE (ESBL) RESISTANCE SNOMED Code(s): 906229038 (3) Foot ulcer Current Visit: No Status: Acute Code(s): L97.509 - NON-PRESSURE CHRONIC ULCER OTH PRT UNSP FOOT W UNSP SEVERITY SNOMED Code(s): 04871952 Plan: 1patient with recent admission to the hospital with right diabetic foot wound and second cellulitis with culture positive for ESBL Klebsiella for the patient was receiving Invanz through a PICC line with the patient has accidentally pulled out the present to the hospital with no IV access patient not running any fever denies any pain to the right foot wound and evidence of any worsening cellulitis to the right foot has been noticed on clinical admission patient did have a normal white count 2PICC line has been ordered currently waiting for placement. 3local wound care to continue with the Medihoney followed by moist dressing. 4patient to continue Invanz 1 g daily currently waiting for PICC line placement for the patient to continue with outpatient IV antibiotic therapy Dictation was produced using [employer] dictation software. please excuse any grammatical, word or spelling errors.
[2023-08-04] MEDS: RIVAROXABAN 20 MG TAB PO SCH (17:07)
[2023-08-04 17:13] LABS: Glucose,Whole Blood 229 mg/dL (70-110)
[2023-08-04] MEDS ORDERED: LIDOCAINE 1% INJ 10MG/ML (30 ML VIAL-PF) SQ ONE (18:57)
--- NOTE | 2023-08-04 19:24 | P.PCN ---
Date of Procedure: 08/04/23 Preoperative Diagnosis: Diabetic foot infection need for IV abx Postoperative Diagnosis: Same Procedure(s) Performed: Left upper extremity ultrasound-guided basilic vein PICC placement Anesthesia: local Surgeon: Vinh Duque Pathology: none sent Condition: stable Disposition: floor Indications for Procedure: 62-year-old gentleman with history of diabetic foot wounds in need of continued IV antibiotics presents for PICC line placement. Description of Procedure: After written and informed consent was obtained the patient and all risks, benefits and competitions were described the patient was brought to the [facility]ag[facility] and laid in a supine position with his left arm outstretched on an armboard. The area of the left arm was prepped and draped in usual sterile fashion. Timeout was performed in normal fashion. Utilizing ultrasound the cephalic vein was visualized and attempted to be cannulated without success and therefore basilic vein was then attempted. Utilizing ultrasound the basilic vein was visualized and shown to be compressible without any visible thrombus. Under ultrasound guidance the basilic vein was then cannulated with a micropuncture needle and wire was placed under direct visualization of fluoroscopy. Introducer sheath was then placed. The catheter was measured and cut to the appropriate length which was 50 cm. The catheter was then guided through the breakaway sheath and the sheath was removed with good positioning was visualized under fluoroscopy. The catheter was pulled and flushed easily. It was then secured in place in normal fashion. Patient tolerated the procedure well was sent back to his room for recovery.
[2023-08-04 20:31] LABS: Glucose,Whole Blood 194 mg/dL (70-110)
[2023-08-04] MEDS: ATORVASTATIN 20 MG TAB PO SCH (20:47)
--- NOTE | 2023-08-05 05:41 | P.PN ---
Subjective Progress Note Date: 08/04/23 Patient is a 62-year-old male with a known history of atrial fibrillation on anticoagulation with Xarelto, hypertension, hyperlipidemia, diabetes type 2 insulin-dependent, obstructive sleep apnea on CPAP at home, diabetic peripheral neuropathy and morbid obesity who was recently in the hospital from 07/28/2023 to 07/31/2023 due to diabetic right foot infection status post I&D on 07/28/2023 and is on antibiotics due to ESBL bacterial infection. Patient is currently on Invanz via PICC line. Patient also noticed purulent discharge from the right foot wound. Patient pulled the PICC line out last night. Patient's family called visiting nurse and was recommended to go to ER since the patient has not of getting antibiotics. Otherwise patient denies any complaints of fever or chills. No nausea vomiting abdominal pain or diarrhea. No cough or sputum production. X-ray of the foot on admission showed no evidence of acute fracture. No evidence of osseous erosion. Laboratory data showed WBC 9.0 hemoglobin 11.5 and platelets 464 Sodium 137 potassium 4.3 chloride 94 bicarb is 34 BUN 27 creatinine 1.01 and blood sugar 120. Liver enzymes are not elevated. 08/03/2023 Patient is resting in bed. Awake alert and oriented x 3. Afebrile. On room air. No complaints of chest pain or shortness of breath. No nausea vomiting or abdominal pain. Denies any right lower extremity pain. No cough or sputum production. Patient is being continued on IV antibiotics for foot infection. Consult for PICC line placement blood pressure. Laboratory data showed WBC 8.4 hemoglobin 10.3, MCV 78.4 and platelets 443. Sodium 138 potassium 3.6 chloride 95 bicarb 30.4 BUN 25.20 creatinine 1.1 and blood sugar 163. A1c 7.6. Current medications reviewed. 08/04/2023 Patient is seen in follow up today and awaiting a PICC line for continued IV antibiotics. Infectious disease is following and will continue with abx in the outpatient setting. social work following and arranging for continued therapy. Apparently there is no staff in the [address] [place] to perform PICC lines this week and so vascular surgery is performing those and awaiting placement. Patient is currently afebrile and denies chest pain or shortness of breath. Patient has 02 in the outpatient setting as needed. Wean FI02 as tolerated. Discharge planning in progress. Review of systems: Constitutional: No reports of fatigue, fever, or chills Cardiovascular: No reports of chest pain or palpitations Respiratory: No reports of worsening shortness of breath or cough GI: No reports of nausea, vomiting, or diarrhea : No reports of dysuria or retention Neurovascular: No reports of weakness or numbness All medications have been reviewed PHYSICAL EXAMINATION: Patient is lying in the bed comfortably, no acute distress, awake alert and brandon ented. Morbidly obese. HEENT: Normocephalic. Neck is supple. Pupils reactive. Nostrils clear. Oral cavity is moist. Neck reveals no JVD, carotid bruits, or thyromegaly. CHEST EXAMINATION: Trachea is central. Symmetrical expansion. Bibasilar diminished sounds. No wheezing or rhonchi. CARDIAC: Normal S1, S2 with no gallops. No murmurs ABDOMEN: Soft. Bowel sounds present. Nontender. No organomegaly. No abdominal bruits. Extremities: Trace bilateral pedal edema. Patient does have wound on the right dorsum of the foot. Purulent base. No active discharge. No clubbing or cyanosis Neurologically awake, alert, oriented x3 with well-coordinated movements. No focal deficits noted Skin: No rash or skin lesions. Psychiatric: Cooperative. Non-suicidal, Musculoskeletal: No joint swelling or deformity. Normal range of motion. Assessment: Right diabetic foot infection with recent I&D on 07/28/2023. Wound cultures growing ESBL. Klebsiella, Enterococcus and procidentia. Uncontrolled diabetes type 2 insulin-dependent. A1c 7.9 Folate deficiency Iron deficiency anemia Microcytic anemia with hemoglobin 11.5 due to Iron deficiency Hypertension Paroxysmal atrial fibrillation on anticoagulation with Xarelto COPD/asthma not in exacerbation Prior history of smoking Morbid obesity BMI 60.8 Polysubstance abuse with recent drug screen showing cocaine and benzodiazepines. DVT prophylaxis and GI prophylaxis. Plan: Patient will be continued on antibiotics in the form of Invanz and ID is on board.. PICC line placement scheduled today and awaiting vascular surgery to perform as there is no [address] staffing for this . Continue home blood pressure medications and insulin regimen and insulin sliding scale. Continue with metoprolol and Xarelto Continue with pain management Encouraged increased activity as tolerated Patient will be supplemented with IV iron and also continue with folate. Prognosis is guarded. Discharge planning in the next 24 hours. The impression and plan of care has been dictated by Jocy Randle, Nurse Practitioner as directed. Dr. Cheikh MD I have performed a history and examination and MDM of this patient, discussed the same with the dictator, and agree with the dictator's assessment and plan as written ,documented as a scribe. Based on total visit time, I have performed more than 50% of the visit. Objective - Vital Signs Vital signs: Vital Signs Temp 97.7 F 08/04/23 07:00 Pulse 78 08/04/23 07:34 Resp 18 08/04/23 07:00 BP 110/65 08/04/23 07:00 Pulse Ox 94 L 08/04/23 07:28 FiO2 Intake & Output 08/03/23 08/04/23 08/04/23 18:59 06:59 18:59 Intake Total 540 600 Output Total 800 Balance 540 -200 Intake: Oral 540 600 Output: Urine 800 Other: Voiding Method External Catheter External Catheter - Labs CBC & Chem 7: 08/04/23 06:18 08/04/23 06:18 Labs: Abnormal Lab Results - Last 24 Hours (Table) 08/03/23 08/03/23 08/03/23 Range/Units 05:20 05:36 13:02 Hgb (13.0-17.0) g/dL Hct (39.6-50.0) % MCV (80.0-97.0) FL MCH (27.0-32.0) pg MCHC (32.0-37.0) g/dL RDW (11.5-14.5) % Chloride 95 L (96-109) mmol/L Carbon Dioxide (21.6-31.8) mmol/L Anion Gap 12.60 H (4.00-12.00) mmol/L BUN/Creatinine Ratio 22.91 H (12.00-20.00) Ratio Glucose 155 H (70-110) mg/dL POC Glucose (mg/dL) 173 H (70-110) mg/dL Hemoglobin A1c 7.6 H (<=6.0) % Iron 31 L (65-175) UG/DL % Saturation 9.45 L (15.00-50.00) 08/03/23 08/03/23 08/04/23 Range/Units 16:50 20:43 06:05 Hgb (13.0-17.0) g/dL Hct (39.6-50.0) % MCV (80.0-97.0) FL MCH (27.0-32.0) pg MCHC (32.0-37.0) g/dL RDW (11.5-14.5) % Chloride (96-109) mmol/L Carbon Dioxide (21.6-31.8) mmol/L Anion Gap (4.00-12.00) mmol/L BUN/Creatinine Ratio (12.00-20.00) Ratio Glucose (70-110) mg/dL POC Glucose (mg/dL) 240 H 199 H 213 H (70-110) mg/dL Hemoglobin A1c (<=6.0) % Iron (65-175) UG/DL % Saturation (15.00-50.00) 08/04/23 08/04/23 Range/Units 06:18 06:18 Hgb 9.8 L (13.0-17.0) g/dL Hct 35.4 L (39.6-50.0) % MCV 78.5 L (80.0-97.0) FL MCH 21.7 L (27.0-32.0) pg MCHC 27.7 L (32.0-37.0) g/dL RDW 18.5 H (11.5-14.5) % Chloride 94 L (96-109) mmol/L Carbon Dioxide 32.5 H (21.6-31.8) mmol/L Anion Gap (4.00-12.00) mmol/L BUN/Creatinine Ratio 21.33 H (12.00-20.00) Ratio Glucose 199 H (70-110) mg/dL POC Glucose (mg/dL) (70-110) mg/dL Hemoglobin A1c (<=6.0) % Iron (65-175) UG/DL % Saturation (15.00-50.00) Microbiology - Last 24 Hours (Table) 08/02/23 14:00 Blood Culture - Preliminary Blood 08/02/23 13:45 Blood Culture - Preliminary Blood
[2023-08-05 06:47] LABS: Glucose,Whole Blood 194 mg/dL (70-110)
[2023-08-05] MEDS: INSULIN ASPART (NovoLOG) 100 UNIT/ML VIAL SQ SCH (06:51)
[2023-08-05] MEDS: PANTOPRAZOLE 40 MG TABLET PO SCH (06:51)
[2023-08-05] MEDS: BUDESONIDE 0.5 MG/2 ML NEBU INHALATION SCH (07:38)
[2023-08-05] MEDS: IPRATROPIUM-ALBUTEROL 3 ML NEB INHALATION SCH ×3 (07:38→15:19)
[2023-08-05 08:30] VITALS: RESP 20; TEMP 97.8
[2023-08-05] MEDS: FUROSEMIDE 20 MG TAB PO SCH (09:57)
[2023-08-05] MEDS: FOLIC ACID 1 MG TAB PO SCH (09:57)
[2023-08-05] MEDS: CYANOCOBALAMIN 500 MCG TAB PO SCH (09:57)
[2023-08-05] MEDS: BACLOFEN 10 MG TAB PO SCH (09:58)
[2023-08-05] MEDS: SENNOSIDES 8.6 MG TAB PO SCH ×2 (09:58→09:59)
[2023-08-05] MEDS: METOPROLOL TARTRATE 25 MG TAB PO SCH (10:01)
[2023-08-05] MEDS: SODIUM FERRIC GLUCONAT-SUCROSE 125 MG in SODIUM CHLORIDE 0.9% 100 ML IVPB SCH (10:02)
[2023-08-05] MEDS: HYDROcodone/APAP 7.5-325MG 1 EACH TAB PO PRN (10:14)
[2023-08-05] MEDS: GABAPENTIN 400 MG CAP PO SCH ×2 (10:26→16:09)
[2023-08-05] MEDS: INSULIN DETEMIR (LEVEMIR) 100 UNIT/ML SYR SQ SCH (10:26)
[2023-08-05 10:31] VITALS: BP 128/71
--- NOTE | 2023-08-05 12:09 | P.PN ---
Subjective Progress Note Date: 08/05/23 Principal diagnosis: Reason for follow-up is right diabetic foot infection with ESBL Klebsiella Patient is a 62-year-old male with a past medical his significant for diabetes mellitus hypertension hyperlipidemia reflux atrial fibrillation he was recently admitted to this facility and the patient did have right diabetic foot ulcer on the dorsum aspect of the right foot superficial culture positive for ESBL Klebsiella along with Enterococcus faecalis, patient did get a PICC line and was advised remains subsequently admitted to hospital at the patient accidentally pulled out his PICC line and did not have any IV access sent to the hospital by the home care nurse On today's evaluation that is 08/05/2023, the patient denies having any fever or any chills, the patient is breathing comfortably on 3 L nasal cannula oxygen the patient denies chest pain shortness of the cough, the patient denies nausea no vomiting no abdominal pain or pain to the right foot wound area Patient did not have any lab draw today his white count was normal at 9.07 as of yesterday Objective - Vital Signs Vital signs: Vital Signs Temp 97.8 F 08/05/23 07:00 Pulse 76 08/05/23 07:57 Resp 20 08/05/23 07:00 BP 99/67 08/05/23 07:00 Pulse Ox 97 08/05/23 07:00 FiO2 Intake & Output 08/04/23 08/05/23 08/05/23 18:59 06:59 18:59 Intake Total 240 Output Total 1200 1100 Balance -1200 -1100 240 Intake: Oral 240 Output: Urine 1200 1100 Other: Voiding Method External Catheter # Voids 1 - Exam GENERAL DESCRIPTION: Middle-age male lying in bed in no distress RESPIRATORY SYSTEM: Unlabored breathing , decreased breath sounds at bases HEART: S1 S2 regular rate and rhythm , ABDOMEN: Soft , no tenderness EXTREMITIES: Right foot wound is currently dressed no drainage on the dressing - Labs CBC & Chem 7: 08/04/23 06:18 08/04/23 06:18 Labs: Abnormal Lab Results - Last 24 Hours (Table) 08/04/23 08/04/23 08/04/23 Range/Units 12:12 17:12 20:30 POC Glucose (mg/dL) 177 H 229 H 194 H (70-110) mg/dL 08/05/23 Range/Units 06:43 POC Glucose (mg/dL) 194 H (70-110) mg/dL Microbiology - Last 24 Hours (Table) 08/02/23 14:00 Blood Culture - Preliminary Blood 08/02/23 13:45 Blood Culture - Preliminary Blood Assessment and Plan (1) Diabetic foot ulcer associated with type 2 diabetes mellitus, with fat layer exposed Current Visit: No Status: Acute Code(s): E11.621 - TYPE 2 DIABETES MELLITUS WITH FOOT ULCER; L97.502 - NON-PRS CHRONIC ULCER OTH PRT UNSP FOOT W FAT LAYER EXPOSED SNOMED Code(s): 8133224385265 (2) ESBL (extended spectrum beta-lactamase) producing bacteria infection Current Visit: No Status: Acute Code(s): A49.9 - BACTERIAL INFECTION, UNSPECIFIED; Z16.12 - EXTENDED SPECTRUM BETA LACTAMASE (ESBL) RESISTANCE S NOMED Code(s): 991613402 (3) Foot ulcer Current Visit: No Status: Acute Code(s): L97.509 - NON-PRESSURE CHRONIC ULCER OTH PRT UNSP FOOT W UNSP SEVERITY SNOMED Code(s): 62753014 Plan: 1patient with recent admission to the hospital with right diabetic foot wound and second cellulitis with culture positive for ESBL Klebsiella for the patient was receiving Invanz through a PICC line with the patient has accidentally pulled out the present to the hospital with no IV access patient not running any fever denies any pain to the right foot wound and evidence of any worsening cellulitis to the right foot has been noticed on clinical admission patient did have a normal white count 2local wound care to continue with the Medihoney followed by moist dressing. 3the patient did get the PICC line he has been advised to continue with the Invanz 1 g daily to finish his course of therapy advised to be careful with the PICC line so it does not come out accidentally again we will see him in the office in 1 to 2 weeks Dictation was produced using [employer] dictation software. please excuse any grammatical, word or spelling errors. Time with Patient: Less than 30
[2023-08-05] MEDS: ERTAPENEM 1 GM in SODIUM CHLORIDE 0.9% 50 ML IVPB SCH (12:19)
[2023-08-05 15:43] VITALS: PULSE 72
--- NOTE | 2023-08-07 13:41 | IR ---
EXAMINATION TYPE: IR cvc insert >=5 years Intraoperative/procedural fluoroscopic services were provid ed. CLINICAL INDICATION:Male, 62 years old with history of ANTIBIOTICS, 0.5MIN FLUORO 50CM RIGHT BASILIC Total fluoroscopy time is 0.5 min. DAP: 1.24 Gycm2 Please see the operative/procedural note for further details. PICC insertion Reason:
--- NOTE | 2023-08-09 10:00 | P.DS ---
Providers Date of admission: 08/02/23 15:00 Expected date of discharge: 08/05/23 Attending physician: Sheila Salamanca Consults: 08/02/23 15:00 Consult Physician Urgent Consulting Provider: Ranjeet Bernard Consult Reason/Comments: Chronic foot wound Do you want consulting provider notified?: Yes Primary care physician: Arnold Aburto Hospital Course: Final diagnosis Right diabetic foot infection with recent I&D on 07/28/2023. Wound cultures growing ESBL. Klebsiella, Enterococcus and procidentia. PICC line misplaced, status post PICC line placement Uncontrolled diabetes type 2 insulin-dependent. A1c 7.9 Folate deficiency Iron deficiency anemia Microcytic anemia with hemoglobin 11.5 due to Iron deficiency Hypertension Paroxysmal atrial fibrillation on anticoagulation with Xarelto COPD/asthma not in exacerbation Prior history of smoking Morbid obesity BMI 60.8 Polysubstance abuse with recent drug screen showing cocaine and benzodiazepines. DVT prophylaxis and GI prophylaxis. Discharge disposition Patient is being discharged in a stable condition with guarded prognosis to home with continued home care. Patient will follow-up with Dr. Aburto in the outpatient setting upon discharge. Patient is to continue with antibiotics per infectious disease recommendations and close outpatient follow-up as scheduled. Total time taken is greater than 35 minutes. Hospital course This is a 62-year-old male who was recently admitted recently being hospitalized for incision and drainage and cultures positive for ESBL Klebsiella and came in for PICC line being misplaced. Patient had PICC line replaced and is scheduled to continue receive IV Invanz with close outpatient follow-up with infectious disease. Patient has been cleared by consultations for discharge. Please refer to the consultation note for further HPI. Currently no reports of chest pain, shortness of breath, or palpitations. Patient is afebrile. No reports of nausea or vomiting and patient is tolerating diet. Patient will be discharged home today. Physical exam: Gen: This is a 62-year-old male who is awake, alert and oriented 3, well- developed, well-nourished, morbidly obese HEENT: Head is atraumatic, normocephalic. Pupils equal, round. Sclerae is anicteric. NECK: Supple. No JVD. No lymphadenopathy. No thyromegaly. LUNGS: Clear to auscultation. No wheezes or rhonchi. No intercostal retractions. HEART: Regular rate and rhythm. No murmur. ABDOMEN: Soft. obese.Bowel sounds are present. No masses. No tenderness. EXTREMITIES: No pedal edema. No calf tenderness. bilateral lower extremity edema notedwith right foot dressing that was just changed and currently dry and intact NEUROLOGICAL: Patient is awake, alert and oriented x3. Cranial nerves 2 through 12 are grossly intact. diffusely weak Please refer to medication reconciliation sheet for a list of medications. The impression and plan of care has been dictated by Jocy Randle, Nurse Practitioner as directed. Dr. Cheikh MD I have performed a history and examination and MDM of this patient, discussed the same with the dictator, and agree with the dictator's assessment and plan as written ,documented as a scribe. Based on total visit time, I have performed more than 50% of the visit. Patient Condition at Discharge: Fair Plan - Discharge Summary Discharge Rx Participant: Yes New Discharge Prescriptions: New Ferrous Sulfate [Feosol] 325 mg PO DAILY 30 Days #30 tab Continue Pioglitazone [Actos] 30 mg PO DAILY Omeprazole [PriLOSEC] 20 mg PO DAILY@0600 Rivaroxaban [Xarelto] 20 mg PO DAILY@1700 Metoprolol Tartrate [Lopressor] 25 mg PO BID Hydrophilic Cream [Triad (Kerodex geq)] 1 applic TOPICAL Q12H PRN PRN Reason: WOUND CARE Sennosides [Senokot] 8.6 mg PO BID polyethylene glycoL 3350 [Miralax] 17 gm PO DAILY PRN PRN Reason: Constipation Ipratropium-Albuterol Nebulize [Duoneb 0.5 mg-3 mg/3 ml Soln] 3 ml INHALATION RT-Q6H Hydrophilic Cream [Triad (Kerodex geq)] 1 applic TOPICAL HS Cholecalciferol [Vitamin D3 (25 Mcg = 1000 Iu)] 25 mcg PO DAILY Cetirizine HCl [Zyrtec] 10 mg PO DAILY Atorvastatin [Lipitor] 20 mg PO HS Fluticasone Nasal [place] [Flonase Nasal [place]] 2 spr EA NOSTRIL DAILY Furosemide [Lasix] 60 mg PO DAILY Thiamine [Vitamin B-1] 100 mg PO DAILY #30 tab HYDROcodone/APAP 7.5-325MG [[place] 7.5-325] 1 tab PO TID PRN #9 tab PRN Reason: Pain Gabapentin 800 mg PO TID Acetaminophen Tab [Tylenol] 650 mg PO Q6H PRN PRN Reason: Pain Insulin Lispro [humaLOG Kwikpen] See Protocol SQ QID Budesonide [Pulmicort] 0.5 mg INHALATION RT-BID Tirzepatide [Mounjaro] 7.5 mg SQ FR Empagliflozin [Jardiance] 10 mg PO DAILY Baclofen 10 mg PO BID Naloxone HCl [Narcan] 4 mg NASAL DIRECTED PRN PRN Reason: Overdose Insulin Degludec [Tresiba Flextouch U-200 Pen] 30 units SQ DAILY Folic Acid 1 mg PO DAILY #30 tab Ertapenem [INVanz] 1 gm IVPB DAILY each Cyanocobalamin [Vitamin B-12] 1,000 mcg PO DAILY #60 tab Discharge Medication List Omeprazole [PriLOSEC] 20 mg PO DAILY@0600 06/27/20 [History] Pioglitazone [Actos] 30 mg PO DAILY 06/27/20 [History] Rivaroxaban [Xarelto] 20 mg PO DAILY@1700 06/27/20 [History] Acetaminophen Tab [Tylenol] 650 mg PO Q6H PRN 05/25/23 [History] Atorvastatin [Lipitor] 20 mg PO HS 05/25/23 [History] Budesonide [Pulmicort] 0.5 mg INHALATION RT-BID 05/25/23 [History] Cetirizine HCl [Zyrtec] 10 mg PO DAILY 05/25/23 [History] Cholecalciferol [Vitamin D3 (25 Mcg = 1000 Iu)] 25 mcg PO DAILY 05/25/23 [History] Empagliflozin [Jardiance] 10 mg PO DAILY 05/25/23 [History] Hydrophilic Cream [Triad (Kerodex geq)] 1 applic TOPICAL HS 05/25/23 [History] Hydrophilic Cream [Triad (Kerodex geq)] 1 applic TOPICAL Q12H PRN 05/25/23 [History] Insulin Lispro [humaLOG Kwikpen] See Protocol SQ QID 05/25/23 [History] Ipratropium-Albuterol Nebulize [Duoneb 0.5 mg-3 mg/3 ml Soln] 3 ml INHALATION RT-Q6H 05/25/23 [History] Metoprolol Tartrate [Lopressor] 25 mg PO BID 05/25/23 [History] Sennosides [Senokot] 8.6 mg PO BID 05/25/23 [History] Tirzepatide [Mounjaro] 7.5 mg SQ FR 05/25/23 [History] polyethylene glycoL 3350 [Miralax] 17 gm PO DAILY PRN 05/25/23 [History] Baclofen 10 mg PO BID 07/25/23 [History] Fluticasone Nasal [place] [Flonase Nasal [place]] 2 spr EA NOSTRIL DAILY 07/25/23 [History] Furosemide [Lasix] 60 mg PO DAILY 07/25/23 [History] Insulin Degludec [Tresiba Flextouch U-200 Pen] 30 units SQ DAILY 07/25/23 [History] Naloxone HCl [Narcan] 4 mg NASAL DIRECTED PRN 07/25/23 [History] Cyanocobalamin [Vitamin B-12] 1,000 mcg PO DAILY #60 tab 07/31/23 [Rx] Ertapenem [INVanz] 1 gm IVPB DAILY each 07/31/23 [Rx] Folic Acid 1 mg PO DAILY #30 tab 07/31/23 [Rx] HYDROcodone/APAP 7.5-325MG [[place] 7.5-325] 1 tab PO TID PRN #9 tab 07/31/23 [Rx] Thiamine [Vitamin B-1] 100 mg PO DAILY #30 tab 07/31/23 [Rx] Gabapentin 800 mg PO TID 08/02/23 [History] Ferrous Sulfate [Feosol] 325 mg PO DAILY 30 Days #30 tab 08/05/23 [Rx] Follow up Appointment(s)/Ref[facility] - 08/06/23 8:00 am [facility], [REFERRING] - 08/06/23 7:00 am Arnold Aburto [Primary Care Provider] - 1-2 days Ranjeet Bernard MD [STAFF PHYSICIAN] - 08/12/23 3:15 pm Ambulatory/Diagnostic Orders: Complete Blood Count w/diff [LAB.AMB] Time Frame: 3 Days, Location: None Selected Patient Instructions/Handouts: PICC (Peripherally Inserted Central Catheter) (DC) Activity/Diet/Wound Care/Special Instructions: Activity Limited until follow-up Follow-up with primary care provider on discharge Continue with PICC line and IV antibiotics per ID recommendations follow-up with infectious disease outpatient Continue monitoring blood sugars before meals and at bedtime and keep a diary of all readings for primary follow-up Continue heart healthy diabetic diet Patient will continue on IV Invanz 1 g daily for 3 weeks for now and will follow-up with Dr. Bernard infectious disease on August 12 and will need to discuss further if he needs to converse with [facility] and obtain a new prescription for him to continue further antibiotics Discharge Disposition: HOME WITH HOME HEALTH SERVICES
== END 2023-08-05 16:25 | disposition home health service (06) ==
LOC: EC 11:28 → 6NMEDSUR 15:00
PROVIDERS: ADMIT Internal Medicine; ATTEND Internal Medicine
DX: Z45.2 Encounter for adjustment and management of vascular access device (principal); E11.621 Type 2 diabetes mellitus with foot ulcer; L97.509 Non-pressure chronic ulcer of other part of unspecified foot with unspecified severity; B96.1 Klebsiella pneumoniae [K. pneumoniae] as the cause of diseases classified elsewhere; B95.2 Enterococcus as the cause of diseases classified elsewhere; B96.89 Other specified bacterial agents as the cause of diseases classified elsewhere; I48.0 Paroxysmal atrial fibrillation; K21.9 Gastro-esophageal reflux disease without esophagitis; E78.5 Hyperlipidemia, unspecified; I10 Essential (primary) hypertension; F41.9 Anxiety disorder, unspecified; E11.42 Type 2 diabetes mellitus with diabetic polyneuropathy; G47.33 Obstructive sleep apnea (adult) (pediatric); D50.9 Iron deficiency anemia, unspecified; E53.8 Deficiency of other specified B group vitamins; J44.9 Chronic obstructive pulmonary disease, unspecified; F13.10 Sedative, hypnotic or anxiolytic abuse, uncomplicated; F14.10 Cocaine abuse, uncomplicated; E66.01 Morbid (severe) obesity due to excess calories; Z68.44 Body mass index [BMI] 60.0-69.9, adult; Z86.73 Personal history of transient ischemic attack (TIA), and cerebral infarction without residual deficits; Z87.891 Personal history of nicotine dependence; Z98.84 Bariatric surgery status; Z79.84 Long term (current) use of oral hypoglycemic drugs; Z79.01 Long term (current) use of anticoagulants; Z79.899 Other long term (current) drug therapy; Z79.4 Long term (current) use of insulin; Z79.85 Long-term (current) use of injectable non-insulin antidiabetic drugs; Z79.51 Long term (current) use of inhaled steroids; Z91.040 Latex allergy status
CPT/HCPCS: 96376; 96365; 96366 ×2; 96367; 96372 ×4; 99285; 36415; 94640 ×6; 94760; 36573; 80053; 80048 ×2; 83540; 83550; 83605; 85025 ×3; 87040; 83036; 73620; G0378 ×4; C1751; C1769 ×2; J2001; J1335 ×3; J2916 ×3

== ENCOUNTER 2023-09-24 10:42 | Emergency (ER) | payer MEDICARE, OTHER ==
--- NOTE | 2023-09-24 12:04 | XR ---
EXAMINATION TYPE: XR shoulder limited 2 views RT, XR pelvis AP view DATE OF EXAM: 09/24/2023 COMPARISON: NONE HISTORY: 63-year-old male trauma, fall, pain FINDINGS: Right shoulder: Moderate degenerative change AC joint with joint space narrowing and marginal spurring. No acute frac ture, subluxation, dislocation is seen. On the 2 views provided. Pelvis: Limited by large patient body habitus. Limited visualization of the lower right femoral neck due to e xternal rotation of the hip during imaging. No obvious displaced fracture is seen. IMPRESSION: 1. Right shoulder: Moderate AC joint OA. 2 views without acute osseous abnormality seen. 2. Pelvis: Limited by patient body habitus and positioning of the right hip. No displaced fracture se en.
--- NOTE | 2023-09-24 12:07 | XR ---
EXAMINATION TYPE: XR chest 2V DATE OF EXAM: 09/24/2023 COMPARISON: 07/24/2024. HISTORY: Trauma. TECHNIQUE: Frontal and lateral views of the chest are obtained. FINDINGS: There is no focal air space opacity, pleural effusion, or pneumothorax seen. The cardiac silhouette size is within normal limits. Old appearing left-sided rib fractures are seen. These are u nchanged. IMPRESSION: No acute cardiopulmonary process.
--- NOTE | 2023-09-24 12:31 | CT ---
EXAMINATION TYPE: CT brain cspine wo con DATE OF EXAM: 09/24/2023 COMPARISON: 09/24/2023. HISTORY: Fall. CT DLP: 2269.9 mGycm Automated exposure control for dose reduction was used. TECHNIQUE: CT scan of the head and cervical spine are performed without contrast. FINDINGS: There is no acute intracranial hemorrhage, mass effect, or midline shift identified. Ther e is mild hypoattenuation the periventricular white matter which likely relates to chronic ischemic s mall vessel change. The ventricles and sulci are within normal limits in size. Mucosal thickening wit hin the right maxillary sinus. Some discontinuity of the medial wall may relate to prior surgical estela nges. The visualized sinuses otherwise appear clear. The mastoid air cells are clear.. Cervical spine is visualized in its entirety from C1 through upper thoracic levels and demonstrates s atisfactory alignment without evidence of acute fracture or dislocation. Prevertebral soft tissue ap pears within normal limits. The C1-C2 articulation is unremarkable. There is however straightening of the normal cervical lordosis with mild to moderate multilevel degenerative disc, facet and uncover tebral joint changes. Multiple posterior osteophytes are seen within the region of the cervical spine . IMPRESSION: 1. There is no acute fracture or dislocation evident in the cervical spine. Multilevel degenerative c hanges. 2. No acute intracranial hemorrhage, mass effect, or midline shift is seen.
--- NOTE | 2023-09-24 12:33 | CT ---
EXAMINATION TYPE: CT thor lumbar spine wo con DATE OF EXAM: 09/24/2023 COMPARISON: None available. HISTORY: Fall from bed. CT DLP: 3288.4 mGycm Automated exposure control for dose reduction was used. FINDINGS: The vertebral bodies are well aligned without evidence of fracture, subluxation or dislocation. There is some scattered mild degenerative disc and facet changes throughout the spine. There is a small hiatal hernia. A few linear bands of opacities are seen within the utilized portions of the lung which are likely atelectasis or scarring. IMPRESSION: MILD SCATTERED DEGENERATIVE CHANGES WITH NO ACUTE OSSEOUS ABNORMALITIES.
[2023-09-24] MEDS: MORPHINE SULFATE 4 MG/ML SYRINGE IVP STA (12:41)
[2023-09-24 13:26] LABS: Anisocytosis Slight; Basophils % (A) 0 %; Eosinophils # (A) 0.1 k/uL (0-0.7); Eosinophils % (A) 0 %; HCT 46.7 % (39.0-53.0); HGB 14.7 gm/dL (13.0-17.5); Hypochromasia Slight; Lymphocytes # (A) 2.1 k/uL (1.0-4.8); Lymphocytes % (A) 17 %; MCH 25.6 pg (25.0-35.0); MCHC 31.5 g/dL (31.0-37.0); Mean Platelet Volume 7.6; Microcytosis Slight; Monocytes # (A) 0.9 k/uL (0-1.0); Monocytes % (A) 7 %; Neutrophils # (A) 9.3 k/uL (1.3-7.7); Neutrophils % (A) 74 %; Platelet Count 429 k/uL (150-450); RBC 5.76 m/uL (4.30-5.90); RDW 18.3 % (11.5-15.5); WBC 12.5 k/uL (3.8-10.6)
[2023-09-24 13:41] LABS: ALT 16 U/L (4-49); AST 24 U/L (17-59); African American GFR (CKD) >90 (>60 ml/min/1.73 sqM); Albumin 3.9 g/dL (3.5-5.0); Alkaline Phosphatase 96 U/L (38-126); Anion Gap 9 mmol/L; Blood Urea Nitrogen 25 mg/dL (9-20); Carbon Dioxide 39 mmol/L (22-30); Chloride 90 mmol/L (98-107); Glucose 141 mg/dL (74-99); Non-African American GFR(CKD) >90 (>60 ml/min/1.73 sqM); Potassium 3.6 mmol/L (3.5-5.1); Sodium 138 mmol/L (137-145); Total Bilirubin 0.6 mg/dL (0.2-1.3); Total Protein 6.9 g/dL (6.3-8.2)
[2023-09-24 13:52] LABS: INR 0.9 (<1.2); Partial Thromboplastin Time 22.4 sec (22.0-30.0); Prothrombin Time 9.7 sec (10.0-12.5)
--- NOTE | 2023-09-24 14:13 | ED ---
General Adult HPI - General Chief complaint: Fall Stated complaint: Weakness Time Seen by Provider: 09/24/23 11:01 Source: patient, EMS, RN notes reviewed, old records reviewed Mode of arrival: EMS Limitations: no limitations - History of Present Illness Initial comments: Patient is a 63-year-old male who presents emergency department after a fall out of bed. Patient has a history of chronic right foot wound, A-fib on blood thinners, on chronic oxygen. States he was reaching for his fridge when he rolled out of bed and fell in the ground. Does not believe he lost consciousness. Unknown if he hit his head. He has chronic right shoulder pain but no other obvious injuries at this time. Is complaining of diffuse back discomfort but nothing in the midline. States this is somewhat chronic as well. Presents for further evaluation at this time. - Related Data Home Medications Medication Instructions Recorded Confirmed Omeprazole [PriLOSEC] 20 mg PO DAILY@0600 06/27/20 08/02/23 Pioglitazone [Actos] 30 mg PO DAILY 06/27/20 08/02/23 Rivaroxaban [Xarelto] 20 mg PO DAILY@1700 06/27/20 08/02/23 Acetaminophen Tab [Tylenol] 650 mg PO Q6H PRN 05/25/23 08/02/23 Atorvastatin [Lipitor] 20 mg PO HS 05/25/23 08/02/23 Budesonide [Pulmicort] 0.5 mg INHALATION RT-BID 05/25/23 08/02/23 Cetirizine HCl [Zyrtec] 10 mg PO DAILY 05/25/23 08/02/23 Cholecalciferol [Vitamin D3 (25 25 mcg PO DAILY 05/25/23 08/02/23 Mcg = 1000 Iu)] Empagliflozin [Jardiance] 10 mg PO DAILY 05/25/23 08/02/23 Hydrophilic Cream [Triad (Kerodex 1 applic TOPICAL HS 05/25/23 08/02/23 geq)] Hydrophilic Cream [Triad (Kerodex 1 applic TOPICAL Q12H PRN 05/25/23 08/02/23 geq)] Insulin Lispro [humaLOG Kwikpen] See Protocol SQ QID 05/25/23 08/02/23 Ipratropium-Albuterol Nebulize 3 ml INHALATION RT-Q6H 05/25/23 08/02/23 [Duoneb 0.5 mg-3 mg/3 ml Soln] Metoprolol Tartrate [Lopressor] 25 mg PO BID 05/25/23 08/02/23 Sennosides [Senokot] 8.6 mg PO BID 05/25/23 08/02/23 Tirzepatide [Mounjaro] 7.5 mg SQ FR 05/25/23 08/02/23 polyethylene glycoL 3350 [Miralax] 17 gm PO DAILY PRN 05/25/23 08/02/23 Baclofen 10 mg PO BID 07/25/23 08/02/23 Fluticasone Nasal [place] [Flonase 2 spr EA NOSTRIL DAILY 07/25/23 08/02/23 Nasal [place]] Furosemide [Lasix] 60 mg PO DAILY 07/25/23 08/02/23 Insulin Degludec [Tresiba 30 units SQ DAILY 07/25/23 08/02/23 Flextouch U-200 Pen] Naloxone HCl [Narcan] 4 mg NASAL DIRECTED PRN 07/25/23 08/02/23 Gabapentin 800 mg PO TID 08/02/23 08/02/23 Previous Rx's Medication Instructions Recorded Cyanocobalamin [Vitamin B-12] 1,000 mcg PO DAILY #60 tab 07/31/23 Ertapenem [INVanz] 1 gm IVPB DAILY each 07/31/23 Folic Acid 1 mg PO DAILY #30 tab 07/31/23 HYDROcodone/APAP 7.5-325MG [[place] 1 tab PO TID PRN #9 tab 07/31/23 7.5-325] Thiamine [Vitamin B-1] 100 mg PO DAILY #30 tab 07/31/23 Ferrous Sulfate [Feosol] 325 mg PO DAILY 30 Days #30 tab 08/05/23 Sulfamethox-Tmp 800-160Mg [Bactrim 1 tab PO Q12HR 7 Days #14 tab 09/24/23 DS 800-160 mg] Allergies Allergy/AdvReac Type Severity Reaction Status Date / Time latex Allergy Rash/Hives Verified 09/24/23 10:54 Review of Systems ROS Statement: Those systems with pertinent positive or pertinent negative responses have been documented in the HPI. Review of Systems: CONST: Denies fever EYES: Denies blurry vision ENT: Denies nasal congestion C/V: Denies Chest pain RESP: Denies shortness of breath GI: Denies abdominal pain : Denies dysuria SKIN: Endorses chronic foot wound MSK: Endorses joint pain NEURO: Denies headache ROS Other: All systems not noted in ROS Statement are negative. Past Medical History Past Medical History: Atrial Fibrillation, CVA/TIA, Diabetes Mellitus, GERD/Reflux, Hyperlipidemia, Hypertension, Sleep Apnea/CPAP/BIPAP Additional Past Medical History / Comment(s): diabetic neuropathy, "leaky valve", frequent foot & ankle swelling, USES C-PAP, shortness of breath, unable to walk distances. rhabdo History of Any Multi-Drug Resistant Organisms: ESBL Date of last positivie culture/infection: 07/28/23 ESBL MDRO Source:: Right Foot Past Surgical History: Bariatric Surgery, Hernia Repair Additional Past Surgical History / Comment(s): GASTRIC SLEEVE. EGD Past Anesthesia/Blood Transfusion Reactions: No Reported Reaction, Motion Sickness Past Psychological History: Anxiety Smoking Status: Former smoker Past Alcohol Use History: None Reported Past Drug Use History: None Reported - Past Family History Mother Family Medical History: Cancer Additional Family Medical History / Comment(s): Father Family Medical History: Hypertension Additional Family Medical History / Comment(s): Brother(s) Family Medical History: Asthma, COPD, Hypertension General Exam - General Exam Comments Initial Comments: General: Appears in no acute distress. HEAD: Normal with no signs of head trauma. Negative Toscano sign. Negative raccoon eyes. EYES: PERRLA, EOMI, conjunctiva normal, no discharge. Pupils are 3 mm and equal bilaterally. ENT: Hearing grossly intact, normal oropharynx. RESPIRATORY: Clear breath sounds bilaterally. No wheezes, rales, or rhonchi. C/V: Regular rate and rhythm. S1 and S2 auscultated, no edema, peripheral pulses 2+ and intact throughout ABD: Abd is soft, nontender, nondistended EXT: Normal range of motion, no obvious deformity. Pelvis is stable. No significant midline spine tenderness to palpation however patient is complaining of diffuse paraspinal muscle tenderness to palpation. Chronic right shoulder pain secondary to rotator cuff injury. SKIN: Patient has a chronic right foot wound that appears stable. No significant discharge. No significant evidence of abscess however there is some mild erythema. Currently not on antibiotics. NEURO: Alert and oriented x 4. Cranial nerves II-XII intact. No focal sensory or strength deficits. GCS 15. Limitations: no limitations Course Vital Signs 09/24/23 09/24/23 10:50 12:45 Temperature 97.3 F L Pulse Rate 87 95 Respiratory 16 20 Rate Blood Pressure 130/89 136/86 O2 Sat by Pulse 100 100 Oximetry Medical Decision Making - Medical Decision Making Was pt. sent in by a medical professional or institution (, PA, VENDING MACHINE COLLECTOR, urgent care, hospital, or long term...) When possible be specific @ -No Did you speak to anyone other than the patient for history (EMS, parent, family, police, friend...)? What history was obtained from this source @ -No Did you review nursing and triage notes (agree or disagree)? Why? @ -I reviewed and agree with nursing and triage notes Were old charts reviewed (outside hosp., previous admission, EMS record, old EKG, old radiological studies, urgent care reports/EKG's, long term records)? Report findings @ -Old charts reviewed Differential Diagnosis (chest pain, altered mental status, abdominal pain women, abdominal pain men, vaginal bleeding, weakness, fever, dyspnea, syncope, headache, dizziness, GI bleed, back pain, seizure, CVA, palpatations, mental health, musculoskeletal)? @ -Differential Musculoskeletal Muscular strain, contusion, ligament sprain, fracture, arthritis, septic arthritis, bursitis, cellulitis, muscle spasm, nerve compression, DVT, arterial occlusion, herpes zoster, electrolyte abnormality, tumor.... This is not meant to be in all inclusive list EKG interpreted by me (3pts min.). @ -As above X-rays interpreted by me (1pt min.). @ -Chest x-ray, pelvis x-ray, right shoulder x-ray negative for any obvious injury. CT interpreted by me (1pt min.). @ -CT brain, C-spine, T and L-spine shows no evidence of acute injury or fracture. U/S interpreted by me (1pt. min.). @ -None done What testing was considered but not performed or refused? (CT, X-rays, U/S, l abs)? Why? @ -None What meds were considered but not given or refused? Why? @ -None Did you discuss the management of the patient with other professionals (professionals i.e. , HERNAN, VENDING MACHINE COLLECTOR, lab, RT, psych nurse, social work instructor, road grader, teacher, deputy juvenile officer, registered nurse hh case manager)? Give summary @ -No Was smoking cessation discussed for >3mins.? @ -No Was critical care preformed (if so, how long)? @ -No Were there social determinants of health that impacted care today? How? (Homelessness, low income, unemployed, alcoholism, drug addiction, transportation, low edu. Level, literacy, decrease access to med. care, group home, rehab)? @ -No Was there de-escalation of care discussed even if they declined (Discuss DNR or withdrawal of care, Hospice)? DNR status @ -No What co-morbidities impacted this encounter? (DM, HTN, Smoking, COPD, CAD, Cancer, CVA, ARF, Chemo, Hep., AIDS, mental health diagnosis, sleep apnea, morbid obesity)? @ -None Was patient admitted / discharged? Hospital course, mention meds given and route, prescriptions, significant lab abnormalities, going to OR and other pertinent info. @ -Patient presents as a fall on blood thinners. Did not fall from above ground level. No altered mental status. No known loss of consciousness. Does not meet criteria for trauma activation. However we will obtain CT imaging of the spine, brain, as well as chest, pelvis, shoulder x-ray. Patient was in agreement this plan. Vital signs within acceptable limits. Patient also has a chronic right foot wound which appears to may be be developing a mild cellulitis but no other obvious infection at this time. Currently not on antibiotics. EKG shows no signs of acute ischemia. Imaging unremarkable. Laboratory studies remarkable for mild leukocytosis of 12. I discussed results with the patient. I believe it is safer to be discharged home. He is feeling improved. He was in agreement this plan. Strict return precautions discussed. He will be empirically placed on Bactrim. I will provide the patient with a prescription for Bactrim. I instructed the patient to follow up with their PCP in the next 1-3 days.. I explained that the patient should return to the emergency department if they experience any worsening symptoms. Strict return precautions were discussed with the patient. The patient expressed understanding of these instructions. I answered all questions that the patient had. The patient was discharged home in good condition with their prescriptions and follow up information. Undiagnosed new problem with uncertain prognosis? @ -No Drug Therapy requiring intensive monitoring for toxicity (Heparin, Nitro, Insulin, Cardizem)? @ -No Were any procedures done? @ -No Diagnosis/symptom? @ -Fall, muscle strains, cellulitis Acute, or Chronic, or Acute on Chronic? @ -acute Uncomplicated (without systemic symptoms) or Complicated (systemic symptoms)? @ -Complicated Side effects of treatment? @ -No Exacerbation, Progression, or Severe Exacerbation? @ -No Poses a threat to life or bodily function? How? (Chest pain, [place], [place], pneumonia, PE, COPD, DKA, ARF, appy, cholecystitis, CVA, Diverticulitis, Homicidal, Suicidal, threat to staff... and all critical care pts) @ -Unlikely - Lab Data Result diagrams: 09/24/23 11:17 09/24/23 11:17 Lab Results 09/24/23 09/24/23 09/24/23 Range/Units 11:17 11:17 11:17 WBC 12.5 H (3.8-10.6) k/uL RBC 5.76 (4.30-5.90) m/uL Hgb 14.7 (13.0-17.5) gm/dL Hct 46.7 (39.0-53.0) % MCV 81.0 (80.0-100.0) fL MCH 25.6 (25.0-35.0) pg MCHC 31.5 (31.0-37.0) g/dL RDW 18.3 H (11.5-15.5) % Plt Count 429 (150-450) k/uL MPV 7.6 Neutrophils % 74 % Lymphocytes % 17 % Monocytes % 7 % Eosinophils % 0 % Basophils % 0 % Neutrophils # 9.3 H (1.3-7.7) k/uL Lymphocytes # 2.1 (1.0-4.8) k/uL Monocytes # 0.9 (0-1.0) k/uL Eosinophils # 0.1 (0-0.7) k/uL Basophils # 0.0 (0-0.2) k/uL Hypochromasia Slight Anisocytosis Slight Microcytosis Slight PT 9.7 L (10.0-12.5) sec INR 0.9 (<1.2) APTT 22.4 (22.0-30.0) sec Sodium 138 (137-145) mmol/L Potassium 3.6 (3.5-5.1) mmol/L Chloride 90 L (98-107) mmol/L Carbon Dioxide 39 H (22-30) mmol/L Anion Gap 9 mmol/L BUN 25 H (9-20) mg/dL Creatinine 0.79 (0.66-1.25) mg/dL Est GFR (CKD-EPI)AfAm >90 (>60 ml/min/1.73 sqM) Est GFR (CKD-EPI)NonAf >90 (>60 ml/min/1.73 sqM) Glucose 141 H (74-99) mg/dL Calcium 11.0 H (8.4-10.2) mg/dL Total Bilirubin 0.6 (0.2-1.3) mg/dL AST 24 (17-59) U/L ALT 16 (4-49) U/L Alkaline Phosphatase 96 (38-126) U/L Total Protein 6.9 (6.3-8.2) g/dL Albumin 3.9 (3.5-5.0) g/dL - EKG Data -: EKG Interpreted by Me EKG Comments: 12-lead Electrocardiogram Interpretation Note EKG was reviewed and interpreted by myself. 12-lead ECG performed at 1116 is interpreted by me as revealing atrial fibrillation at a rate of 84 beats per minute. [place] is normal. QRS duration is 100 ms, QTc is 402 ms.. There were no ST or T wave abnormalities to suggest myocardial ischemia or injury. R wave progression across the precordium was satisfactory. By my interpretation this EKG is non-diagnostic for acute ischemia. Disposition Clinical Impression: Fall, Muscle strain, Wound of foot Disposition: HOME SELF-CARE Condition: Good Instructions (If sedation given, give patient instructions): Fall Prevention (ED) Prescriptions: Sulfamethox-Tmp 800-160Mg [Bactrim DS 800-160 mg] 1 tab PO Q12HR 7 Days #14 tab Is patient prescribed a controlled substance at d/c from ED?: No Referrals: Arnold Aburto [Primary Care Provider] - 1-2 days Time of Disposition: 14:08
[2023-09-24] MEDS: BACITRACIN OINT 1 EACH PACKET TOPICAL ONE (14:56)
[2023-09-24] MEDS: SULFAMETHOX-TMP 800-160MG 1 EACH TAB PO STA (15:06)
[2023-09-24 15:57] VITALS: TEMP 98
[2023-09-24 16:54] VITALS: PULSE 98; RESP 22
[2023-09-24 19:43] VITALS: BP 112/99
== END 2023-09-24 19:19 | disposition home or self-care (01) ==
LOC: EC 10:42
DX: S91.301A Unspecified open wound, right foot, initial encounter (principal); S46.911A Strain of unspecified muscle, fascia and tendon at shoulder and upper arm level, right arm, initial encounter; E11.40 Type 2 diabetes mellitus with diabetic neuropathy, unspecified; E78.5 Hyperlipidemia, unspecified; I10 Essential (primary) hypertension; I48.91 Unspecified atrial fibrillation; I25.2 Old myocardial infarction; K21.9 Gastro-esophageal reflux disease without esophagitis; G47.30 Sleep apnea, unspecified; Z87.891 Personal history of nicotine dependence; Z79.4 Long term (current) use of insulin; Z79.899 Other long term (current) drug therapy; Z79.84 Long term (current) use of oral hypoglycemic drugs; Z79.01 Long term (current) use of anticoagulants; Z91.040 Latex allergy status; W06.XXXA Fall from bed, initial encounter
CPT/HCPCS: 36415; 93005; 80053; 85025; 85610; 85730; 72170; 73020; 71046; 72128; 72125; 72131; 70450; 99285; 96374; J2270

== ENCOUNTER 2024-01-24 14:23 | Emergency (ER) | payer MEDICARE, OTHER ==
--- NOTE | 2024-01-24 14:59 | ED ---
General Adult HPI - General Chief complaint: Back Pain/Injury Stated complaint: Back Pain Time Seen by Provider: 01/24/24 14:25 Source: patient Mode of arrival: EMS Limitations: physical limitation - History of Present Illness Initial comments: Dictation was produced using [employer] dictation software. please excuse any grammatical, word or spelling errors. Chief Complaint: 63-year-old male presents emergency department with back pain after fall History of Present Illness: Patient 63-year-old male he has multiple comorbidities. Patient is obese and debilitated. He is just discharged from [facility] recently for cellulitis. Patient states that he went to bed last night when he slid out of his recliner. He is too debilitated to get up. He laid on the floor for several hours unable to move. This morning he was able to roll over which caused him to fall to the ground. States that his back has been hurting since the fall. Denies any numbness tingling paresthesias to the legs. No saddle anesthesia. No loss of bowel or bladder control. Patient's niece called the EMS and patient was brought to the ER. The ROS documented in this emergency department record has been reviewed and confirmed by me. Those systems with pertinent positive or negative responses have been documented in the HPI. All other systems are other negative and/or noncontributory. - Related Data Home Medications Medication Instructions Recorded Confirmed Omeprazole [PriLOSEC] 20 mg PO DAILY@0600 06/27/20 08/02/23 Pioglitazone [Actos] 30 mg PO DAILY 06/27/20 08/02/23 Rivaroxaban [Xarelto] 20 mg PO DAILY@1700 06/27/20 08/02/23 Acetaminophen Tab [Tylenol] 650 mg PO Q6H PRN 05/25/23 08/02/23 Atorvastatin [Lipitor] 20 mg PO HS 05/25/23 08/02/23 Budesonide [Pulmicort] 0.5 mg INHALATION RT-BID 05/25/23 08/02/23 Cetirizine HCl [Zyrtec] 10 mg PO DAILY 05/25/23 08/02/23 Cholecalciferol [Vitamin D3 (25 25 mcg PO DAILY 05/25/23 08/02/23 Mcg = 1000 Iu)] Empagliflozin [Jardiance] 10 mg PO DAILY 05/25/23 08/02/23 Hydrophilic Cream [Triad (Kerodex 1 applic TOPICAL HS 05/25/23 08/02/23 geq)] Hydrophilic Cream [Triad (Kerodex 1 applic TOPICAL Q12H PRN 05/25/23 08/02/23 geq)] Insulin Lispro [humaLOG Kwikpen] See Protocol SQ QID 05/25/23 08/02/23 Ipratropium-Albuterol Nebulize 3 ml INHALATION RT-Q6H 05/25/23 08/02/23 [Duoneb 0.5 mg-3 mg/3 ml Soln] Metoprolol Tartrate [Lopressor] 25 mg PO BID 05/25/23 08/02/23 Sennosides [Senokot] 8.6 mg PO BID 05/25/23 08/02/23 Tirzepatide [Mounjaro] 7.5 mg SQ FR 05/25/23 08/02/23 polyethylene glycoL 3350 [Miralax] 17 gm PO DAILY PRN 05/25/23 08/02/23 Baclofen 10 mg PO BID 07/25/23 08/02/23 Fluticasone Nasal [place] [Flonase 2 spr EA NOSTRIL DAILY 07/25/23 08/02/23 Nasal [place]] Furosemide [Lasix] 60 mg PO DAILY 07/25/23 08/02/23 Insulin Degludec [Tresiba 30 units SQ DAILY 07/25/23 08/02/23 Flextouch U-200 Pen] Naloxone HCl [Narcan] 4 mg NASAL DIRECTED PRN 07/25/23 08/02/23 Gabapentin 800 mg PO TID 08/02/23 08/02/23 Previous Rx's Medication Instructions Recorded Cyanocobalamin [Vitamin B-12] 1,000 mcg PO DAILY #60 tab 07/31/23 Ertapenem [INVanz] 1 gm IVPB DAILY each 07/31/23 Folic Acid 1 mg PO DAILY #30 tab 07/31/23 HYDROcodone/APAP 7.5-325MG [[place] 1 tab PO TID PRN #9 tab 07/31/23 7.5-325] Thiamine [Vitamin B-1] 100 mg PO DAILY #30 tab 07/31/23 Ferrous Sulfate [Feosol] 325 mg PO DAILY 30 Days #30 tab 08/05/23 Sulfamethox-Tmp 800-160Mg [Bactrim 1 tab PO Q12HR 7 Days #14 tab 09/24/23 DS 800-160 mg] Allergies Allergy/AdvReac Type Severity Reaction Status Date / Time latex Allergy Rash/Hives Verified 09/24/23 10:54 Review of Systems ROS Statement: Those systems with pertinent positive or pertinent negative responses have been documented in the HPI. ROS Other: All systems not noted in ROS Statement are negative. Past Medical History Past Medical History: Atrial Fibrillation, CVA/TIA, Diabetes Mellitus, GERD/Reflux, Hyperlipidemia, Hypertension, Sleep Apnea/CPAP/BIPAP Additional Past Medical History / Comment(s): diabetic neuropathy, "leaky valve", frequent foot & ankle swelling, USES C-PAP, shortness of breath, unable to walk distances. rhabdo History of Any Multi-Drug Resistant Organisms: ESBL Date of last positivie culture/infection: 07/28/23 ESBL MDRO Source:: Right Foot Past Surgical History: Bariatric Surgery, Hernia Repair Additional Past Surgical History / Comment(s): GASTRIC SLEEVE. EGD Past Anesthesia/Blood Transfusion Reactions: No Reported Reaction, Motion Sickness Past Psychological History: Anxiety Smoking Status: Former smoker Past Alcohol Use History: None Reported Past Drug Use History: None Reported - Past Family History Mother Family Medical History: Cancer Additional Family Medical History / Comment(s): Father Family Medical History: Hypertension Additional Family Medical History / Comment(s): Brother(s) Family Medical History: Asthma, COPD, Hypertension General Exam - General Exam Comments Initial Comments: PHYSICAL EXAM: General Impression: Alert and oriented x3, not in acute distress HEENT: Normocephalic atraumatic, extra-ocular movements intact, pupils equal and reactive to light bilaterally, mucous membranes moist. Cardiovascular: Heart regular rate and rhythm Chest: Able to complete full sentences, no retractions, no tachypnea Abdomen: abdomen soft, non-tender, non-distended, no organomegaly Musculoskeletal: Pulses present and equal in all extremities, no peripheral edema Motor: no focal deficits noted Neurological: CN II-XII grossly intact, no focal motor or sensory deficits noted Skin: Intact with no visualized rashes Psych: Normal affect and mood Limitations: physical limitation Course Vital Signs 01/24/24 14:29 Temperature 98.0 F Pulse Rate 70 Respiratory 16 Rate Blood Pressure 123/73 O2 Sat by Pulse 98 Oximetry Medical Decision Making - Medical Decision Making Was pt. sent in by a medical professional or institution (, PA, CMM TECHNICIAN, urgent care, hospital, or longterm...) When possible be specific @ -No Did you speak to anyone other than the patient for history (EMS, parent, family, police, friend...)? What history was obtained from this source @ -No Did you review nursing and triage notes (agree or disagree)? Why? @ -I reviewed and agree with nursing and triage notes Were old charts reviewed (outside hosp., previous admission, EMS record, old EKG, old radiological studies, urgent care reports/EKG's, longterm records)? Report findings @ -No old charts were reviewed Differential Diagnosis (chest pain, altered mental status, abdominal pain women, abdominal pain men, vaginal bleeding, musculoskeletal, weakness, fever, dyspnea, syncope, headache, dizziness, GI bleed, back pain, seizure, CVA, palpatations, mental health)? @ -Differential Back Pain: Strain, zoster, cauda equina syndrome, epidural abscess, vertebral osteomyelitis, discitis, fracture, subluxation, disc herniation, DJD, spinal stenosis, dissection, AAA, pancreatitis, peptic ulcer disease, pyelonephritis, kidney stone, this is not meant to be an all-inclusive list. EKG interpreted by me (3pts min.). @ -None done X-rays interpreted by me (1pt min.). @ -None done CT interpreted by me (1pt min.). @ -CT of the lumbar spine shows no acute processes. U/S interpreted by me (1pt. min.). @ -None done What testing was considered but not performed or refused? (CT, X-rays, U/S, labs)? Why? @ -None What meds were considered but not given or refused? Why? @ -None Was smoking cessation discussed for >3mins.? @ -No Were there social determinants of health that impacted care today? How? (Homelessness, low income, unemployed, alcoholism, drug addiction, transportation, low edu. Level, literacy, decrease access to med. care, alf, rehab)? @ -No Was there de-escalation of care discussed even if they declined (Discuss DNR or withdrawal of care, Hospice)? DNR status @ -No What co-morbidities impacted this encounter? (DM, HTN, Smoking, COPD, CAD, Cancer, CVA, ARF, Chemo, Hep., AIDS, mental health diagnosis, sleep apnea, morbid obesity)? @ -Obesity, debility Was patient admitted / discharged? Hospital course, mention meds given and route, prescriptions, significant lab abnormalities, going to OR and other pertinent info. @ -63-year-old male presents emergency department with fall. He has history of debility due to obesity and worsening deconditioning from recent hospitalization. Patient states he hurt his back from the fall and his leg down on the ground for several hours. Vital signs stable. Patient no acute distress. Patient has no red flag back symptoms. Laboratory evaluation obtained. CBC metabolic panel is within acceptable limits. CK is normal. No rhabdo imaging is negative. Patient reevaluated bedside at 5:30 PM found to be stable condition. Patient states that he is well enough to be discharged. S tates that he can care for himself at home and he does have help with his family. Did you discuss the management of the patient with other professionals (professionals i.e. , PA, CMM TECHNICIAN, lab, RT, psych nurse, social work coordinator, manager cable, teacher, public health service officer, case investigator)? Give summary @ -No Was critical care preformed (if so, how long)? @ -No Undiagnosed new problem with uncertain prognosis? @ -No Drug Therapy requiring intensive monitoring for toxicity (Heparin, Nitro, Insulin, Cardizem)? @ -No Were any procedures done? @ -No Diagnosis/symptom? Acute, or Chronic, or Acute on Chronic? Uncomplicated (without systemic symptoms) or Complicated (systemic symptoms)? @ -Fall, back strain Side effects of treatment? @ -No Exacerbation, Progression, or Severe Exacerbation? @ -No Poses a threat to life or bodily function? How? (Chest pain, [place], [place], pneumonia, PE, COPD, DKA, ARF, appy, cholecystitis, CVA, Diverticulitis, Homicidal, Suicidal, threat to staff... and all critical care pts) @ -No - Lab Data Result diagrams: 01/24/24 16:14 01/24/24 16:14 Lab Results 01/24/24 01/24/24 Range/Units 16:14 16:14 WBC 9.1 (3.8-10.6) k/uL RBC 4.52 (4.30-5.90) m/uL Hgb 12.5 L (13.0-17.5) gm/dL Hct 40.2 (39.0-53.0) % MCV 89.0 (80.0-100.0) fL MCH 27.6 (25.0-35.0) pg MCHC 31.0 (31.0-37.0) g/dL RDW 14.5 (11.5-15.5) % Plt Count 289 (150-450) k/uL MPV 7.9 Neutrophils % 70 % Lymphocytes % 15 % Monocytes % 11 % Eosinophils % 2 % Basophils % 0 % Neutrophils # 6.4 (1.3-7.7) k/uL Lymphocytes # 1.4 (1.0-4.8) k/uL Monocytes # 1.0 (0-1.0) k/uL Eosinophils # 0.2 (0-0.7) k/uL Basophils # 0.0 (0-0.2) k/uL Hypochromasia Slight Sodium 138 (137-145) mmol/L Potassium 4.3 (3.5-5.1) mmol/L Chloride 99 (98-107) mmol/L Carbon Dioxide 32 H (22-30) mmol/L Anion Gap 7 mmol/L BUN 30 H (9-20) mg/dL Creatinine 0.82 (0.66-1.25) mg/dL Est GFR (CKD-EPI)AfAm >90 (>60 ml/min/1.73 sqM) Est GFR (CKD-EPI)NonAf >90 (>60 ml/min/1.73 sqM) Glucose 130 H (74-99) mg/dL Calcium 8.9 (8.4-10.2) mg/dL Creatine Kinase 44 L (55-170) U/L Disposition Clinical Impression: Strain of lumbar region Disposition: HOME SELF-CARE Condition: Good Instructions (If sedation given, give patient instructions): Acute Low Back Pain (ED) Is patient prescribed a controlled substance at d/c from ED?: No Referrals: Arnold Aburto [Primary Care Provider] - 1-2 days Time of Disposition: 17:29
--- NOTE | 2024-01-24 15:45 | CT ---
EXAMINATION TYPE: CT lumbar spine wo con DATE OF EXAM: 01/24/2024 3:37 PM COMPARISON: 09/24/23 HISTORY: Fall, Low back pain. CT DLP: 3166.9 mGycm Automated exposure control for dose reduction was used. Unenhanced CT of the lumbar spine was performed. Bone and soft tissue window settings are submitted as well as coronal and sagittal reconstructions. Examination is limited given poor osseous and soft t issue detail which may be secondary to patient body habitus. L1-L2: Normal disc space height. No disc herniation protrusion or central stenosis. No facet joint arthropathy. No evidence for foraminal encroachment. L2-L3: Normal disc space height. No disc herniation protrusion or central stenosis. No facet joint arthropathy. No evidence for foraminal encroachment. L3-L4: There appears to be broad-based subligamentous infarct laterally into the right disc herniatio n effacing the ventral thecal sac resulting in moderate central stenosis. There is bilateral lateral recess stenosis and right foraminal encroachment. L4-L5: Severe disc space narrowing with vacuum disc. Subligamentous and broad-based disc herniation e xtending posteriorly and centrally and to the right resulting in moderate central stenosis, bilateral lateral recess stenosis and right foraminal encroachment. L5-S1: Vacuum disc compatible severe degenerative disc space narrowing. Herniated disc posterior cent rally is difficult to exclude. No paraspinal masses are identified. Lumbar segments are intact. IMPRESSION: 1. Limited study as discussed. 2. No evidence for fracture or malalignment. 3. Suspected Multilevel disc herniations as discussed
[2024-01-24] MEDS: MORPHINE SULFATE 4 MG/ML SYRINGE IV STA (16:19)
[2024-01-24 16:26] LABS: Basophils % (A) 0 %; Eosinophils # (A) 0.2 k/uL (0-0.7); Eosinophils % (A) 2 %; HCT 40.2 % (39.0-53.0); HGB 12.5 gm/dL (13.0-17.5); Hypochromasia Slight; Lymphocytes # (A) 1.4 k/uL (1.0-4.8); Lymphocytes % (A) 15 %; MCH 27.6 pg (25.0-35.0); Mean Platelet Volume 7.9; Monocytes % (A) 11 %; Neutrophils # (A) 6.4 k/uL (1.3-7.7); Neutrophils % (A) 70 %; Platelet Count 289 k/uL (150-450); RBC 4.52 m/uL (4.30-5.90); RDW 14.5 % (11.5-15.5); WBC 9.1 k/uL (3.8-10.6)
[2024-01-24 16:33] LABS: African American GFR (CKD) >90 (>60 ml/min/1.73 sqM); Anion Gap 7 mmol/L; Blood Urea Nitrogen 30 mg/dL (9-20); Calcium 8.9 mg/dL (8.4-10.2); Carbon Dioxide 32 mmol/L (22-30); Chloride 99 mmol/L (98-107); Creatine Kinase 44 U/L (55-170); Glucose 130 mg/dL (74-99); Non-African American GFR(CKD) >90 (>60 ml/min/1.73 sqM); Sodium 138 mmol/L (137-145)
[2024-01-24] MEDS: MORPHINE SULFATE 4 MG/ML SYRINGE IM STA (16:35)
[2024-01-24 17:24] LABS: Potassium 4.3 mmol/L (3.5-5.1)
[2024-01-24 17:37] VITALS: BP 118/83; PULSE 82; RESP 18
[2024-01-24 18:13] VITALS: TEMP 98.1
== END 2024-01-24 18:13 | disposition home or self-care (01) ==
LOC: EC 14:23
DX: S39.012A Strain of muscle, fascia and tendon of lower back, initial encounter (principal); E66.9 Obesity, unspecified; Z91.040 Latex allergy status; Z87.891 Personal history of nicotine dependence; Z86.73 Personal history of transient ischemic attack (TIA), and cerebral infarction without residual deficits; Z68.44 Body mass index [BMI] 60.0-69.9, adult; W06.XXXA Fall from bed, initial encounter
CPT/HCPCS: 99284; 96372; 36415; 80048; 82550; 85025; 72131; J2270

== ENCOUNTER 2024-07-02 20:35 | Inpatient (IN) | payer MEDICARE, OTHER ==
--- NOTE | 2024-07-02 21:27 | ED ---
General Adult HPI - General Chief complaint: Weakness Stated complaint: AMS Time Seen by Provider: 07/02/24 20:38 Source: patient, EMS, RN notes reviewed, old records reviewed Mode of arrival: EMS Limitations: no limitations - History of Present Illness Initial comments: 63-year-old male brought in for reported confusion and altered mental status. Patient himself is not certain why he is here. He has no complaints. He is able to answer questions. No chest or abdominal pain. No headache. Patient currently undergoing rehabilitation at the care home. No reported fever. No vomiting. - Related Data Home Medications Medication Instructions Recorded Confirmed Omeprazole [PriLOSEC] 20 mg PO DAILY@0600 06/27/20 08/02/23 Pioglitazone [Actos] 30 mg PO DAILY 06/27/20 08/02/23 Rivaroxaban [Xarelto] 20 mg PO DAILY@1700 06/27/20 08/02/23 Acetaminophen Tab [Tylenol] 650 mg PO Q6H PRN 05/25/23 08/02/23 Atorvastatin [Lipitor] 20 mg PO HS 05/25/23 08/02/23 Budesonide [Pulmicort] 0.5 mg INHALATION RT-BID 05/25/23 08/02/23 Cetirizine HCl [Zyrtec] 10 mg PO DAILY 05/25/23 08/02/23 Cholecalciferol [Vitamin D3 (25 25 mcg PO DAILY 05/25/23 08/02/23 Mcg = 1000 Iu)] Empagliflozin [Jardiance] 10 mg PO DAILY 05/25/23 08/02/23 Hydrophilic Cream [Triad (Kerodex 1 applic TOPICAL HS 05/25/23 08/02/23 geq)] Hydrophilic Cream [Triad (Kerodex 1 applic TOPICAL Q12H PRN 05/25/23 08/02/23 geq)] Insulin Lispro [humaLOG Kwikpen] See Protocol SQ QID 05/25/23 08/02/23 Ipratropium-Albuterol Nebulize 3 ml INHALATION RT-Q6H 05/25/23 08/02/23 [Duoneb 0.5 mg-3 mg/3 ml Soln] Metoprolol Tartrate [Lopressor] 25 mg PO BID 05/25/23 08/02/23 Sennosides [Senokot] 8.6 mg PO BID 05/25/23 08/02/23 Tirzepatide [Mounjaro] 7.5 mg SQ FR 05/25/23 08/02/23 polyethylene glycoL 3350 [Miralax] 17 gm PO DAILY PRN 05/25/23 08/02/23 Baclofen 10 mg PO BID 07/25/23 08/02/23 Fluticasone Nasal Cobb [Flonase 2 spr EA NOSTRIL DAILY 07/25/23 08/02/23 Nasal Cobb] Furosemide [Lasix] 60 mg PO DAILY 07/25/23 08/02/23 Insulin Degludec [Tresiba 30 units SQ DAILY 07/25/23 08/02/23 Flextouch U-200 Pen] Naloxone HCl [Narcan] 4 mg NASAL DIRECTED PRN 07/25/23 08/02/23 Gabapentin 800 mg PO TID 08/02/23 08/02/23 Previous Rx's Medication Instructions Recorded Cyanocobalamin [Vitamin B-12] 1,000 mcg PO DAILY #60 tab 07/31/23 Ertapenem [INVanz] 1 gm IVPB DAILY each 07/31/23 Folic Acid 1 mg PO DAILY #30 tab 07/31/23 HYDROcodone/APAP 7.5-325MG [Coral 1 tab PO TID PRN #9 tab 07/31/23 7.5-325] Thiamine [Vitamin B-1] 100 mg PO DAILY #30 tab 07/31/23 Ferrous Sulfate [Feosol] 325 mg PO DAILY 30 Days #30 tab 08/05/23 Sulfamethox-Tmp 800-160Mg [Bactrim 1 tab PO Q12HR 7 Days #14 tab 09/24/23 DS 800-160 mg] Allergies Allergy/AdvReac Type Severity Reaction Status Date / Time latex Allergy Rash/Hives Verified 07/02/24 20:45 Review of Systems ROS Statement: Those systems with pertinent positive or pertinent negative responses have been documented in the HPI. ROS Other: All systems not noted in ROS Statement are negative. Past Medical History Past Medical History: Atrial Fibrillation, CVA/TIA, Diabetes Mellitus, GERD/Reflux, Hyperlipidemia, Hypertension, Sleep Apnea/CPAP/BIPAP Additional Past Medical History / Comment(s): diabetic neuropathy, "leaky valve", frequent foot & ankle swelling, USES C-PAP, shortness of breath, unable to walk distances. rhabdo History of Any Multi-Drug Resistant Organisms: ESBL Date of last positivie culture/infection: 07/28/23 ESBL MDRO Source:: Right Foot Past Surgical History: Bariatric Surgery, Hernia Repair Additional Past Surgical History / Comment(s): GASTRIC SLEEVE. EGD Past Anesthesia/Blood Transfusion Reactions: No Reported Reaction, Motion Sickness Past Psychological History: Anxiety Smoking Status: Former smoker Past Alcohol Use History: None Reported Past Drug Use History: None Reported - Past Family History Mother Family Medical History: Cancer Additional Family Medical History / Comment(s): Father Family Medical History: Hypertension Additional Family Medical History / Comment(s): Brother(s) Family Medical History: Asthma, COPD, Hypertension General Exam General appearance: alert, in no apparent distress, obese Head exam: Present: atraumatic, normocephalic Eye exam: Present: normal appearance, PERRL ENT exam: Present: normal exam Neck exam: Present: normal inspection. Absent: tenderness, meningismus Respiratory exam: Present: decreased breath sounds. Absent: respiratory distress, wheezes Cardiovascular Exam: Present: regular rate, irregular rhythm. Absent: normal rhythm GI/Abdominal exam: Present: soft. Absent: distended, tenderness, guarding Extremities exam: Present: normal inspection, normal capillary refill Neurological exam: Present: alert, oriented X3. Absent: motor sensory deficit Psychiatric exam: Present: normal affect, normal mood Skin exam: Present: warm, dry, intact, normal color Course Vital Signs 07/02/24 07/02/24 20:38 22:00 Temperature 98.3 F Pulse Rate 83 69 Respiratory 18 18 Rate Blood Pressure 126/82 104/72 O2 Sat by Pulse 98 Oximetry Medical Decision Making - Medical Decision Making Was pt. sent in by a medical professional or institution (, PA, DIAMOND EXPERT, urgent care, hospital, or care home...) When possible be specific @Sent in from care home for evaluation of increased confusion Did you speak to anyone other than the patient for history (EMS, parent, family, police, friend...)? What history was obtained from this source @ -No Did you review nursing and triage notes (agree or disagree)? Why? @ -I reviewed and agree with nursing and triage notes Were old charts reviewed (outside hosp., previous admission, EMS record, old EKG, old radiological studies, urgent care reports/EKG's, care home records)? Report findings @ -No old charts were reviewed Differential Altered Mental Status: Hypoglycemia, DKA, hypercapnia, ETOH, overdose, CO poisoning, trauma, myxedema coma, HTN encephalopathy, infection, encephalitis, psychosis, intercranial hemorrhage, hepatic encephalopathy, meningitis, CVA, this is not meant to be an all-inclusive list EKG interpreted by me (3pts min.). @ -Atrial fibrillation rate of 87 QRS duration 106, QTc [address] segment elevation X-rays interpreted by me (1pt min.). @Chest x-ray showing CHF, single view. CT interpreted by me (1pt min.). @ -CT brain negative for intracranial hemorrhage or mass effect U/S interpreted by me (1pt. min.). @ -None done What testing was considered but not performed or refused? (CT, X-rays, U/S, labs)? Why? @ -None What meds were considered but not given or refused? Why? @ -None Did you discuss the management of the patient with other professionals (professionals i.e. , PA, DIAMOND EXPERT, lab, RT, psych nurse, social work specialist, title lawyer, teacher, employment security officer, case monitor)? Give summary @ -No Was smoking cessation discussed for >3mins.? @ -No Was critical care preformed (if so, how long)? @ -Yes, 35 minutes Were there social determinants of health that impacted care today? How? (H omelessness, low income, unemployed, alcoholism, drug addiction, transportation, low edu. Level, literacy, decrease access to med. care, assisted, rehab)? @ -No Was there de-escalation of care discussed even if they declined (Discuss DNR or withdrawal of care, Hospice)? DNR status @ -No What co-morbidities impacted this encounter? (DM, HTN, Smoking, COPD, CAD, Cancer, CVA, ARF, Chemo, Hep., AIDS, mental health diagnosis, sleep apnea, morbid obesity)? @ -Morbid obesity, hypertension, diabetes, atrial fibrillation Was patient admitted / discharged? Hospital course, mention meds given and route, prescriptions, significant lab abnormalities, going to OR and other pertinent info. @63-year-old male from care home with confusion. Patient is able to answer questions appropriately. No focal neurologic findings. Vital signs are stable. He is in rate controlled A-fib. Head CT is performed which is negative for intracranial hemorrhage or mass effect. Patient is arousable and directable but is otherwise sleeping. There is concern for hypercarbia and venous blood gases obtained which does show an elevated CO2 at 85. Patient's confusion and narcosis is likely related to hypercarbia. Patient placed on BiPAP for increased ventilation. He will be admitted for BiPAP support and evaluation by pulmonology. Undiagnosed new problem with uncertain prognosis? @ -No Drug Therapy requiring intensive monitoring for toxicity (Heparin, Nitro, Insulin, Cardizem)? @ -No Were any procedures done? @ -No Diagnosis/symptom? @ -Confusion and narcosis secondary to hypoventilation and CO2 retention Acute, or Chronic, or Acute on Chronic? @ -Acute on chronic Uncomplicated (without systemic symptoms) or Complicated (systemic symptoms)? @ -Default Side effects of treatment? @ -No Exacerbation, Progression, or Severe Exacerbation? @ -No Poses a threat to life or bodily function? How? (Chest pain, [place], [place], pneumonia, PE, COPD, DKA, ARF, appy, cholecystitis, CVA, Diverticulitis, Homicidal, Suicidal, threat to staff... and all critical care pts) @ -Yes, hypercarbia, respiratory failure - Lab Data Result diagrams: 07/02/24 21:40 07/02/24 21:40 Lab Results 07/02/24 07/02/24 07/02/24 Range/Units 21:40 21:40 21:40 WBC 8.6 (3.8-10.6) k/uL RBC 3.69 L (4.30-5.90) m/uL Hgb 9.3 L (13.0-17.5) gm/dL Hct 31.0 L (39.0-53.0) % MCV 83.9 (80.0-100.0) fL MCH 25.3 (25.0-35.0) pg MCHC 30.2 L (31.0-37.0) g/dL RDW 16.6 H (11.5-15.5) % Plt Count 316 (150-450) k/uL MPV 6.7 Neutrophils % 73 % Lymphocytes % 15 % Monocytes % 7 % Eosinophils % 3 % Basophils % 0 % Neutrophils # 6.2 (1.3-7.7) k/uL Lymphocytes # 1.2 (1.0-4.8) k/uL Monocytes # 0.6 (0-1.0) k/uL Eosinophils # 0.3 (0-0.7) k/uL Basophils # 0.0 (0-0.2) k/uL Hypochromasia Marked Anisocytosis Slight PT 11.5 (10.0-12.5) sec INR 1.1 (<1.2) APTT 24.1 (22.0-30.0) sec VBG pH (7.31-7.41) VBG pCO2 (37-51) mmHg VBG HCO3 (24-28) mmol/L Sodium 139 (137-145) mmol/L Potassium 4.3 (3.5-5.1) mmol/L Chloride 92 L (98-107) mmol/L Carbon Dioxide 43 H* (22-30) mmol/L Anion Gap 4 mmol/L BUN 18 (9-20) mg/dL Creatinine 0.67 (0.66-1.25) mg/dL Est GFR (CKD-EPI)AfAm >90 (>60 ml/min/1.73 sqM) Est GFR (CKD-EPI)NonAf >90 (>60 ml/min/1.73 sqM) Glucose 136 H (74-99) mg/dL Plasma Lactic Acid Antony (0.7-2.0) mmol/L Calcium 8.3 L (8.4-10.2) mg/dL Magnesium 2.0 (1.6-2.3) mg/dL Total Bilirubin 0.5 (0.2-1.3) mg/dL AST 13 L (17-59) U/L ALT 6 (4-49) U/L Alkaline Phosphatase 64 (38-126) U/L Total Protein 6.2 L (6.3-8.2) g/dL Albumin 3.0 L (3.5-5.0) g/dL 07/02/24 07/02/24 Range/Units 21:40 21:40 WBC (3.8-10.6) k/uL RBC (4.30-5.90) m/uL Hgb (13.0-17.5) gm/dL Hct (39.0-53.0) % MCV (80.0-100.0) fL MCH (25.0-35.0) pg MCHC (31.0-37.0) g/dL RDW (11.5-15.5) % Plt Count (150-450) k/uL MPV Neutrophils % % Lymphocytes % % Monocytes % % Eosinophils % % Basophils % % Neutrophils # (1.3-7.7) k/uL Lymphocytes # (1.0-4.8) k/uL Monocytes # (0-1.0) k/uL Eosinophils # (0-0.7) k/uL Basophils # (0-0.2) k/uL Hypochromasia Anisocytosis PT (10.0-12.5) sec INR (<1.2) APTT (22.0-30.0) sec VBG pH 7.37 (7.31-7.41) VBG pCO2 85 H* (37-51) mmHg VBG HCO3 49 H (24-28) mmol/L Sodium (137-145) mmol/L Potassium (3.5-5.1) mmol/L Chloride (98-107) mmol/L Carbon Dioxide (22-30) mmol/L Anion Gap mmol/L BUN (9-20) mg/dL Creatinine (0.66-1.25) mg/dL Est GFR (CKD-EPI)AfAm (>60 ml/min/1.73 sqM) Est GFR (CKD-EPI)NonAf (>60 ml/min/1.73 sqM) Glucose (74-99) mg/dL Plasma Lactic Acid Antony 0.8 (0.7-2.0) mmol/L Calcium (8.4-10.2) mg/dL Magnesium (1.6-2.3) mg/dL Total Bilirubin (0.2-1.3) mg/dL AST (17-59) U/L ALT (4-49) U/L Alkaline Phosphatase (38-126) U/L Total Protein (6.3-8.2) g/dL Albumin (3.5-5.0) g/dL Critical Care Time Critical Care Time: Yes Total Critical Care Time: 35 Disposition Clinical Impression: Morbid obesity, Congestive heart failure, Hypercapnic respiratory failure Disposition: ADMITTED IP TO THIS HOSP Condition: Serious Is patient prescribed a controlled substance at d/c from ED?: No Referrals: Marisa Gonzalez DO [Primary Care Provider] - 1-2 days Time of Disposition: 22:37
[2024-07-02 21:52] LABS: Anisocytosis Slight; Basophils % (A) 0 %; Eosinophils # (A) 0.3 k/uL (0-0.7); Eosinophils % (A) 3 %; HGB 9.3 gm/dL (13.0-17.5); Hypochromasia Marked; Lymphocytes # (A) 1.2 k/uL (1.0-4.8); Lymphocytes % (A) 15 %; MCH 25.3 pg (25.0-35.0); MCHC 30.2 g/dL (31.0-37.0); MCV 83.9 fL (80.0-100.0); Mean Platelet Volume 6.7; Monocytes # (A) 0.6 k/uL (0-1.0); Monocytes % (A) 7 %; Neutrophils # (A) 6.2 k/uL (1.3-7.7); Neutrophils % (A) 73 %; Platelet Count 316 k/uL (150-450); RBC 3.69 m/uL (4.30-5.90); RDW 16.6 % (11.5-15.5); WBC 8.6 k/uL (3.8-10.6)
[2024-07-02 21:53] LABS: VBG PH 7.37 (7.31-7.41)
--- NOTE | 2024-07-02 21:58 | CT ---
EXAMINATION TYPE: CT brain wo con DATE OF EXAM: 07/02/2024 9:55 PM COMPARISON: 09/24/2023 CLINICAL INDICATION: Male, 63 years old with history of weakness, confusion, ams, TECHNIQUE: Examination was done in axial plane without intravenous contrast. Coronal and sagittal r econstructions performed. CT DLP: 1227.4 mGycm, Automated exposure control for dose reduction was used. FINDINGS: There is no evidence of acute intracranial hemorrhage, acute ischemic changes, mass, mass-effect, or extra-axial fluid collection. There is no effacement of cerebral sulci or basal subarachnoid cister ns. There is no hydrocephalus. There is no midline shift. Reese-white matter distinction is preserv ed. Lobulated mucosal thickening floor right maxillary sinus. Mastoid air cells are pneumatized. Orbits a nd globes are intact. IMPRESSION: No acute intracranial abnormality seen. [facility], , 07/02/2024 9:56 PM
[2024-07-02 22:02] LABS: Chloride 92 mmol/L (98-107); Glucose 136 mg/dL (74-99); Potassium 4.3 mmol/L (3.5-5.1); Sodium 139 mmol/L (137-145)
[2024-07-02 22:03] LABS: ALT 6 U/L (4-49); AST 13 U/L (17-59); African American GFR (CKD) >90 (>60 ml/min/1.73 sqM); Alkaline Phosphatase 64 U/L (38-126); Blood Urea Nitrogen 18 mg/dL (9-20); Calcium 8.3 mg/dL (8.4-10.2); Non-African American GFR(CKD) >90 (>60 ml/min/1.73 sqM); Total Bilirubin 0.5 mg/dL (0.2-1.3); Total Protein 6.2 g/dL (6.3-8.2)
[2024-07-02 22:09] LABS: Anion Gap 4 mmol/L
--- NOTE | 2024-07-02 22:12 | XR ---
EXAMINATION TYPE: XR chest 1V portable DATE OF EXAM: 07/02/2024 9:57 PM COMPARISON: 09/24/2023 CLINICAL INDICATION: Male, 63 years old with confusion, history of AMS, , FINDINGS: The heart is enlarged. Diffuse interstitial and patchy bibasilar opacities. Fluid appears to thicken the minor fissure on the right. IMPRESSION: 1. Correlate for CHF with interstitial pulmonary edema. 2. Fluid appears to thicken the fissure on the right. 3. Patchy bibasilar pulmonary edema versus infiltrate. Correlate to exclude pneumonia. [facility], , 07/02/2024 10:10 PM
[2024-07-02 22:13] LABS: Carbon Dioxide 43 mmol/L (22-30)
[2024-07-02 22:23] LABS: INR 1.1 (<1.2); Partial Thromboplastin Time 24.1 sec (22.0-30.0); Prothrombin Time 11.5 sec (10.0-12.5)
[2024-07-02] MEDS ORDERED: ACETAMINOPHEN TAB 325 MG TAB PO PRN (22:24)
[2024-07-02] MEDS ORDERED: NALOXONE 0.4 MG/ML 1 ML VIAL IV PRN (22:24)
[2024-07-02] MEDS: IPRATROPIUM-ALBUTEROL 3 ML NEB INHALATION SCH (23:58)
[2024-07-03] MEDS ORDERED: ALBUTEROL NEBULIZED 2.5 MG/3 ML INHALATION PRN (09:25)
[2024-07-03] MEDS: FUROSEMIDE 10 MG/ML 2 ML VIAL IV SCH (09:46)
[2024-07-03 10:03] LABS: Appearance,Urine Turbid (Clear); Bacteria,Urine Few /hpf; Bilirubin,Urine Negative (Negative); Blood,Urine Large (Negative); Color,Urine Yellow; Glucose,Urine (UA) Negative (Negative); Ketones,Urine Negative (Negative); Leukocyte Esterase,Urine Large (Negative); Nitrite,Urine Positive (Negative); PH, Urine 7.5 (5.0-8.0); Protein,Urine 1+ (Negative); RBC,Urine 32 /hpf (0-5); Specific Gravity,Urine 1.018 (1.001-1.035); Triple Phosphate Crystal,Urine Occasional /hpf; Urobilinogen,Urine <2.0 mg/dL (<2.0); WBC,Urine >182 /hpf (0-5)
[2024-07-03] MEDS ORDERED: ACETAMINOPHEN TAB 325 MG TAB PO PRN (10:47)
--- NOTE | 2024-07-03 11:02 | P.HPIM ---
History of Present Illness 63-year-old pleasant male well-known to me from his previous hospitalization with came in with the complaints of confusion and altered mental status. Patient is found to be hypercapnic with started on BiPAP patient does have history of sleep apnea uses CPAP machine is also on home oxygen. Chest x-ray showed some atelectatic changes in the right lower lung willis and possible pulmonary edema patient also has some pedal edema does take Lasix at home possibly diastolic dysfunction. Patient had extensive history in the past had a history of uncontrolled diabetes mellitus and history of discitis for which patient was on prolonged duration of antibiotic completed antibiotic therapy. Patient does not have any fever chills does not have any leukocytosis urine is significantly abnormal. Patient does not have any clear UTI symptoms though. Will obtain a procalcitonin level. REVIEW OF SYSTEMS: All other systems are negative except those mentioned in the HPI PHYSICAL EXAMINATION: GENERAL: The patient is alert and oriented x3, not in any acute distress. Well developed, well nourished. Obese HEENT: Pupils are round and equally reacting to light. EOMI. No scleral icterus. No conjunctival pallor. Normocephalic, atraumatic. No pharyngeal erythema. No thyromegaly. CARDIOVASCULAR: S1 and S2 present. No murmurs, rubs, or gallops. PULMONARY: Significantly diminished air entry without any wheezing or crackles. ABDOMEN: Soft, nontender, nondistended, normoactive bowel sounds. No palpable organomegaly. MUSCULOSKELETAL: No joint swelling or deformity. EXTREMITIES: No cyanosis, clubbing, mild pitting pedal edema NEUROLOGICAL: Gross neurological examination did not reveal any focal deficits. SKIN: No rashes. Assessment and plan -Altered mental status probably secondary to hypercapnia and metabolic encephalopathy: Patient is on BiPAP which will be continued pulmonary will evaluate the patient -Hypercapnic respiratory failure: Secondary to obstructive sleep apnea patient does have history of COPD but does not appear to be in COPD exacerbation at this time patient will be started on any systemic steroids -Possibility of urinary tract infection for which patient was started on Rocephin with along with urine cultures and blood cultures -Obesity hypoventilation syndrome -Chronic hypoxic and hypercapnic respiratory failure secondary to COPD and sleep apnea, which may be a competent of CHF chronic diastolic function patient Lasix dose will be increased to 20 mg twice a day monitoring I's and O's urine output put, kidney function and electrolytes -Type 2 diabetes mellitus patient will be started on sliding scale insulin patient may need to be started on his long-acting insulin if his eating -Congestive heart failure chronic diastolic function without any acute exacerbation -Diabetic peripheral neuropathy -Paroxysmal atrial fibrillation presently sinus rhythm patient is on Eliquis which will be resumed -History of discitis septic completed antibiotic therapy DVT prophylaxis: On Eliquis Past Medical History Past Medical History: Atrial Fibrillation, CVA/TIA, Diabetes Mellitus, GERD/Reflux, Hyperlipidemia, Hypertension, Sleep Apnea/CPAP/BIPAP Additional Past Medical History / Comment(s): diabetic neuropathy, "leaky valve", frequent foot & ankle swelling, USES C-PAP, shortness of breath, unable to walk distances. rhabdo History of Any Multi-Drug Resistant Organisms: ESBL Date of last positivie culture/infection: 07/28/23 ESBL MDRO Source:: Right Foot Past Surgical History: Bariatric Surgery, Hernia Repair Additional Past Surgical History / Comment(s): GASTRIC SLEEVE. EGD Past Anesthesia/Blood Transfusion Reactions: No Reported Reaction, Motion Sickness Past Psychological History: Anxiety Smoking Status: Former smoker Past Alcohol Use History: None Reported Past Drug Use History: None Reported - Past Family History Mother Family Medical History: Cancer Additional Family Medical History / Comment(s): Father Family Medical History: Hypertension Additional Family Medical History / Comment(s): Brother(s) Family Medical History: Asthma, COPD, Hypertension Medications and Allergies Home Medications Medication Instructions Recorded Confirmed Type Omeprazole [PriLOSEC] 20 mg PO DAILY 06/27/20 07/03/24 History Acetaminophen Tab [Tylenol] 650 mg PO Q6H PRN 05/25/23 07/03/24 History Cholecalciferol [Vitamin D3 (25 25 mcg PO DAILY 05/25/23 07/03/24 History Mcg = 1000 Iu)] Insulin Lispro [humaLOG Kwikpen] See Protocol SQ QID@07,,,05/25/23 07/03/24 History Metoprolol Tartrate [Lopressor] 12.5 mg PO BID 05/25/23 07/03/24 History polyethylene glycoL 3350 [Miralax] 17 gm PO DAILY PRN 05/25/23 07/03/24 History Furosemide [Lasix] 40 mg PO DAILY 07/25/23 07/03/24 History Naloxone HCl [Narcan] 4 mg NASAL ONCE PRN 07/25/23 07/03/24 History Gabapentin 800 mg PO TID@05,13,21 08/02/23 07/03/24 History Albuterol Nebulized [Ventolin 2.5 mg INHALATION RT-Q6H PRN 07/03/24 07/03/24 History Nebulized] Apixaban [Eliquis] 5 mg PO BID 07/03/24 07/03/24 History Dextrose Chew [Glucose Chew Tab] 12 gm PO DAILY PRN 07/03/24 07/03/24 History Dextrose Gel [Glutose 15 Gel] 15 gm PO DAILY PRN 07/03/24 07/03/24 History Famotidine [Pepcid] 20 mg PO DAILY 07/03/24 07/03/24 History Folic Acid 0.8 mg PO DAILY 07/03/24 07/03/24 History HYDROcodone/APAP 10-325MG [[place] 1 tab PO Q6H PRN 07/03/24 07/03/24 History 10-325] Insulin Glargine,Hum.rec.anlog 20 units SQ DAILY 07/03/24 07/03/24 History [Lantus Solostar Pen] Lactulose 20 gm PO DAILY 07/03/24 07/03/24 History Losartan [Cozaar] 12.5 mg PO DAILY 07/03/24 07/03/24 History Magnesium Oxide [Mag-Ox] 400 mg PO HS 07/03/24 07/03/24 History Naloxone 0.4mg/Ml Injection 0.4 mg IV ONCE PRN 07/03/24 07/03/24 History Tamsulosin [Flomax] 0.4 mg PO DAILY 07/03/24 07/03/24 History Allergies Allergy/AdvReac Type Severity Reaction Status Date / Time latex Allergy Rash/Hives Verified 07/03/24 08:29 Physical Exam Vitals: Vital Signs Temp Pulse Resp BP Pulse Ox FiO2 07/03/24 09:44 77 14 121/70 99 07/03/24 09:03 75 07/03/24 08:57 40 07/03/24 08:55 79 07/03/24 08:20 81 14 134/80 98 07/03/24 06:00 84 18 115/79 99 07/03/24 04:20 90 07/03/24 04:03 87 50 07/03/24 04:00 87 18 102/67 98 07/03/24 02:00 67 18 106/60 97 07/03/24 00:13 90 07/02/24 23:59 85 50 07/02/24 23:35 80 20 98/84 98 07/02/24 23:01 50 07/02/24 22:00 69 18 104/72 98 07/02/24 20:38 98.3 F 83 18 126/82 Intake and Output 07/02/24 07/03/24 07/03/24 22:59 06:59 14:59 Other: Weight 202 kg Results CBC & Chem 7: 07/02/24 21:40 07/02/24 21:40 Labs: Abnormal Lab Results - Last 24 Hours (Table) 07/02/24 07/02/24 07/02/24 Range/Units 21:40 21:40 21:40 RBC 3.69 L (4.30-5.90) m/uL Hgb 9.3 L (13.0-17.5) gm/dL Hct 31.0 L (39.0-53.0) % MCHC 30.2 L (31.0-37.0) g/dL RDW 16.6 H (11.5-15.5) % VBG pCO2 85 H* (37-51) mmHg VBG HCO3 49 H (24-28) mmol/L Chloride 92 L (98-107) mmol/L Carbon Dioxide 43 H* (22-30) mmol/L Glucose 136 H (74-99) mg/dL Calcium 8.3 L (8.4-10.2) mg/dL AST 13 L (17-59) U/L Total Protein 6.2 L (6.3-8.2) g/dL Albumin 3.0 L (3.5-5.0) g/dL Urine Protein (Negative) Urine Blood (Negative) Ur Leukocyte Esterase (Negative) Urine RBC (0-5) /hpf Urine WBC (0-5) /hpf Triple Phos Crystals (None) /hpf Urine Bacteria (None) /hpf 07/03/24 Range/Units 09:51 RBC (4.30-5.90) m/uL Hgb (13.0-17.5) gm/dL Hct (39.0-53.0) % MCHC (31.0-37.0) g/dL RDW (11.5-15.5) % VBG pCO2 (37-51) mmHg VBG HCO3 (24-28) mmol/L Chloride (98-107) mmol/L Carbon Dioxide (22-30) mmol/L Glucose (74-99) mg/dL Calcium (8.4-10.2) mg/dL AST (17-59) U/L Total Protein (6.3-8.2) g/dL Albumin (3.5-5.0) g/dL Urine Protein 1+ H (Negative) Urine Blood Large H (Negative) Ur Leukocyte Esterase Large H (Negative) Urine RBC 32 H (0-5) /hpf Urine WBC >182 H (0-5) /hpf Triple Phos Crystals Occasional H (None) /hpf Urine Bacteria Few H (None) /hpf
[2024-07-03] MEDS: FAMOTIDINE 20 MG TAB PO SCH (11:20)
[2024-07-03] MEDS: TAMSULOSIN 0.4 MG CAP.ER.24H PO SCH (11:20)
[2024-07-03] MEDS: APIXABAN 5 MG TAB PO SCH (11:20)
[2024-07-03 11:39] LABS: Glucose,Whole Blood 131 mg/dL (70-110)
[2024-07-03] MEDS: INSULIN ASPART (NovoLOG) 100 UNIT/ML VIAL SQ SCH (11:39)
[2024-07-03] MEDS: GABAPENTIN 400 MG CAP PO SCH (12:33)
[2024-07-03 12:59] LABS: ABG Base Excess 19.8 mmol/L; ABG Oxygen Saturation 96.5 % (94-97); ABG PO2 79 mmHg (83-108); ABG TCO2 50 mmol/L (19-24); Allen Test Performed? Yes
[2024-07-03 13:05] LABS: ABG HCO3 48 mmol/L (21-25); ABG PCO2 78 mmHg (35-45)
--- NOTE | 2024-07-03 13:49 | P.CNPUL ---
History of Present Illness Consult date: 07/03/24 Reason for consult: dyspnea History of present illness: This is a 63-year-old morbidly obese male patient with a body mass index of 63. The patient was seen in the emergency department for altered mentation and confusion. The patient was answering some simple questions at time of admission. No focal neurological deficits. He was undergoing rehabilitation and usp. No fever. No chills. No nausea or emesis. No chest pain. No pleurisy or hemoptysis. The patient was found to be in hypercapnic respiratory failure. A venous blood gas was done that showed a pH of 7.37 with a pCO2 of 85. Based on that, the patient was started on a BiPAP at a pressure of 14 over 5 cm of water on FiO2 of 40%. At the time of my evaluation, the patient was arousable and the patient was generating more than 400 cc of tidal volume on the BiPAP machine. Repeat blood gas was done an arterial sample that showed a pH of 7.4 with a pCO2 of 78 and pO2 of 79. I was able to take the patient off the BiPAP and placed him on oxygen 3 L/min nasal cannula and his pulse ox was 95%. CAT scan of the brain that was done in the emergency department showed no acute abnormalities. Chest x-ray done in the emergency department showed CHF with interstitial edema and fluid thickening in the fissure especially on the right and patchy bibasilar atelectatic changes/infiltrate versus edema. Pneumonia cannot be completely excluded. The patient white cell count was at 8.6 with a hemoglobin of 0.3 and a platelet count of 315. Sodium is at 139, potassium is at 4.3, bicarb is at 43, BUN is 18 with a creatinine of 0.6. proBNP level was 1870. UA was abnormal consistent with underlying urinary tract infection. The EKG was consistent with atrial fibrillation. Noted the patient is currently on IV Rocephin. The patient is also on diuretics with Lasix 40 mg IV every 12 hours. His previous echocardiogram from May 2023 which is essentially a year ago showed a preserved LV function with an ejection fraction of 55 to 60% without any significant abnormalities. Review of Systems Constitutional: Reports daytime sleepiness, Reports fatigue, Reports lethargy, Reports weight gain Eyes: denies as per HPI, denies blurred vision, denies bulging eye, denies decreased vision, denies diplopia, denies discharge, denies dry eye, denies irritation, denies itching, denies pain, denies photophobia, denies loss of peripheral vision, denies loss of vision, denies tunnel vision/blind spots Ears: deny: decreased hearing, ear discharge, earache, tinnitus Ears, nose, mouth and throat: Reports as per HPI Breasts: absent: as per HPI, gynecomastia Cardiovascular: Reports decreased exercise tolerance, Reports dyspnea on exertion Respiratory: Reports dyspnea, Reports home oxygen Gastrointestinal: Reports as per HPI Genitourinary: Reports as per HPI Musculoskeletal: Reports as per HPI Musculoskeletal: absent: ankle pain, ankle stiffness, ankle swelling, as per HPI, elbow pain, elbow stiffness, elbow swelling, foot pain, foot stiffness, foot swelling, hand pain, hand stiffness, hand swelling, hip pain, hip stiffness, hip swelling, knee pain, knee stiffness, knee swelling, shoulder pain, shoulder stiffness, shoulder swelling, wrist pain, wrist stiffness, wrist swelling Integumentary: Reports as per HPI Neurological: Reports as per HPI Psychiatric: Reports as per HPI Endocrine: Reports as per HPI Hematologic/Lymphatic: Reports as per HPI Allergic/Immunologic: Reports as per HPI Past Medical History Past Medical History: Atrial Fibrillation, CVA/TIA, Diabetes Mellitus, GERD/Reflux, Hyperlipidemia, Hypertension, Sleep Apnea/CPAP/BIPAP Additional Past Medical History / Comment(s): diabetic neuropathy, "leaky valve", frequent foot & ankle swelling, USES C-PAP, shortness of breath, unable to walk distances. rhabdo History of Any Multi-Drug Resistant Organisms: ESBL Date of last positivie culture/infection: 07/28/23 ESBL MDRO Source:: Right Foot Past Surgical History: Bariatric Surgery, Hernia Repair Additional Past Surgical History / Comment(s): GASTRIC SLEEVE. EGD Past Anesthesia/Blood Transfusion Reactions: No Reported Reaction, Motion Sickness Past Psychological History: Anxiety Smoking Status: Former smoker Past Alcohol Use History: None Reported Past Drug Use History: None Reported - Past Family History Mother Family Medical History: Cancer Additional Family Medical History / Comment(s): Father Family Medical History: Hypertension Additional Family Medical History / Comment(s): Brother(s) Family Medical History: Asthma, COPD, Hypertension Medications and Allergies Home Medications Medication Instructions Recorded Confirmed Type Omeprazole [PriLOSEC] 20 mg PO DAILY 11/25/20 12/01/24 History Acetaminophen Tab [Tylenol] 650 mg PO Q6H PRN 05/25/23 07/03/24 History Cholecalciferol [Vitamin D3 (25 25 mcg PO DAILY 05/25/23 07/03/24 History Mcg = 1000 Iu)] Insulin Lispro [humaLOG Kwikpen] See Protocol SQ QID@07,11,16,20 05/25/23 07/03/24 History Metoprolol Tartrate [Lopressor] 12.5 mg PO BID 05/25/23 07/03/24 History polyethylene glycoL 3350 [Miralax] 17 gm PO DAILY PRN 05/25/23 07/03/24 History Furosemide [Lasix] 40 mg PO DAILY 07/25/23 07/03/24 History Naloxone HCl [Narcan] 4 mg NASAL ONCE PRN 07/25/23 07/03/24 History Gabapentin 800 mg PO TID@05,13,21 08/02/23 07/03/24 History Albuterol Nebulized [Ventolin 2.5 mg INHALATION RT-Q6H PRN 07/03/24 07/03/24 History Nebulized] Apixaban [Eliquis] 5 mg PO BID 07/03/24 07/03/24 History Dextrose Chew [Glucose Chew Tab] 12 gm PO DAILY PRN 07/03/24 07/03/24 History Dextrose Gel [Glutose 15 Gel] 15 gm PO DAILY PRN 07/03/24 07/03/24 History Famotidine [Pepcid] 20 mg PO DAILY 07/03/24 07/03/24 History Folic Acid 0.8 mg PO DAILY 07/03/24 07/03/24 History HYDROcodone/APAP 10-325MG [[place] 1 tab PO Q6H PRN 07/03/24 07/03/24 History 10-325] Insulin Glargine,Hum.rec.anlog 20 units SQ DAILY 07/03/24 07/03/24 History [Lantus Solostar Pen] Lactulose 20 gm PO DAILY 07/03/24 07/03/24 History Losartan [Cozaar] 12.5 mg PO DAILY 07/03/24 07/03/24 History Magnesium Oxide [Mag-Ox] 400 mg PO HS 07/03/24 07/03/24 History Naloxone 0.4mg/Ml Injection 0.4 mg IV ONCE PRN 07/03/24 07/03/24 History Tamsulosin [Flomax] 0.4 mg PO DAILY 07/03/24 07/03/24 History Allergies Allergy/AdvReac Type Severity Reaction Status Date / Time latex Allergy Rash/Hives Verified 07/03/24 08:29 Physical Exam Vitals: Vital Signs Temp Pulse Resp BP Pulse Ox FiO2 07/03/24 09:03 75 07/03/24 08:57 40 07/03/24 08:55 79 07/03/24 08:20 81 14 134/80 98 07/03/24 06:00 84 18 115/79 99 07/03/24 04:20 90 07/03/24 04:03 87 50 07/03/24 04:00 87 18 102/67 98 07/03/24 02:00 67 18 106/60 97 07/03/24 00:13 90 07/02/24 23:59 85 50 07/02/24 23:35 80 20 98/84 98 07/02/24 23:01 50 07/02/24 22:00 69 18 104/72 98 07/02/24 20:38 98.3 F 83 18 126/82 Intake and Output 07/02/24 07/03/24 07/03/24 22:59 06:59 14:59 Other: Weight 202 kg The patient appeared is alert and awake and communicating, was taken off the BiPAP and the patient is currently on 3 L O2 nasal cannula Head exam is unremarkable. No scleral icterus or corneal arcus noted. Neck is without jugular venous distension, thyromegaly, or carotid bruits. Carotid upstrokes are brisk bilaterally. Mallampati class IV with significant crowding of posterior pharynx Lungs are diminished breath sound bilaterally Cardiac exam reveals the PMI to be normally sized and situated. Rhythm is regular. First and second heart sounds normal. No murmurs, rubs or gallops. Abdominal exam reveals normal bowel sounds, no masses, no organomegaly and no aortic enlargement. Extremities are chronic edema and wounds in lower extremities bilaterally, heal ed Examination of the skin revealed no evidence of significant rashes, suspicious appearing nevi or other concerning lesions. Neurologically, the patient is awake and alert and the patient does not have any focal neurological deficit. Cranial nerves are essentially intact. Results - Laboratory Findings CBC and BMP: 07/02/24 21:40 07/02/24 21:40 PT/INR, D-dimer PT 11.5 sec (10.0-12.5) 07/02/24 21:40 INR 1.1 (<1.2) 07/02/24 21:40 Abnormal lab findings: Abnormal Labs 07/02/24 07/02/24 07/02/24 21:40 21:40 21:40 RBC 3.69 L Hgb 9.3 L Hct 31.0 L MCHC 30.2 L RDW 16.6 H VBG pCO2 85 H* VBG HCO3 49 H Chloride 92 L Carbon Dioxide 43 H* Glucose 136 H Calcium 8.3 L AST 13 L Total Protein 6.2 L Albumin 3.0 L - Diagnostic Findings Chest x-ray: image reviewed Assessment and Plan Plan: Mental status change, possibly related to metabolic encephalopathy as the patient has underlying UTI and there could have been also a component of hypercapnic respiratory failure, acute on top of chronic at the time of admission contributing to his altered mentation. Patient is improving with a combination of antibiotics, diuretics and BiPAP therapy. Mental status is considerably improved. CAT scan of the brain is negative. Acute on chronic hypoxic/hypercapnic respiratory failure, on a BiPAP. Rule out a component of CHF with diastolic heart failure and additional edema. Pneumonia is doubtful. He does have a component of UTI. UTI CHF with preserved LV function/diastolic heart failure, elevated proBNP level Chronic A-fib, rate controlled and the patient is on anticoagulants Morbid obesity with a BMI of 63.9 Obstructive sleep apnea Hypertension Hyperlipidemia Diabetes mellitus type 2 BPH Chronic metabolic alkalosis, compensated 3 to his chronic hypercapnic respiratory failure History of iron deficiency anemia Polysubstance abuse with previous drug screen showing cocaine and olivia zodiazepines History of right diabetic foot infection with previous I&D back in July 2023 and polymicrobial growth. Plan Continue using BiPAP on and off during the day continuously at nighttime. Currently on 3 L O2 nasal cannula IV Rocephin Urine cultures Blood cultures Continue anticoagulation with Eliquis IV Lasix 40 mg every 12 hours Admit to the medical floor and will continue to follow
[2024-07-03 18:35] LABS: Glucose,Whole Blood 184 mg/dL (70-110)
[2024-07-03 20:56] LABS: Glucose,Whole Blood 241 mg/dL (70-110)
[2024-07-03] MEDS: FUROSEMIDE 10 MG/ML 4 ML VIAL IV SCH (22:15)
[2024-07-03] MEDS: METOPROLOL TARTRATE 12.5 MG TAB PO SCH (22:15)
[2024-07-04 06:22] LABS: Glucose,Whole Blood 163 mg/dL (70-110)
[2024-07-04] MEDS: PANTOPRAZOLE 40 MG TABLET PO SCH (06:27)
[2024-07-04 07:22] LABS: Anisocytosis Slight; HCT 30.8 % (39.0-53.0); HGB 8.8 gm/dL (13.0-17.5); Hypochromasia Marked; MCH 24.2 pg (25.0-35.0); MCHC 28.6 g/dL (31.0-37.0); MCV 84.6 fL (80.0-100.0); Mean Platelet Volume 7.2; Platelet Count 341 k/uL (150-450); RBC 3.64 m/uL (4.30-5.90); RDW 16.9 % (11.5-15.5)
[2024-07-04 07:39] LABS: African American GFR (CKD) >90 (>60 ml/min/1.73 sqM); Blood Urea Nitrogen 19 mg/dL (9-20); Calcium 8.3 mg/dL (8.4-10.2); Chloride 93 mmol/L (98-107); Glucose 134 mg/dL (74-99); Non-African American GFR(CKD) >90 (>60 ml/min/1.73 sqM); Potassium 4.4 mmol/L (3.5-5.1); Sodium 137 mmol/L (137-145)
[2024-07-04 07:45] LABS: Anion Gap 2 mmol/L
[2024-07-04 07:49] LABS: Carbon Dioxide 42 mmol/L (22-30)
[2024-07-04] MEDS: CHOLECALCIFEROL 25 MCG (1000 IU) TABLET PO SCH (08:33)
[2024-07-04] MEDS: LACTULOSE 20 GM/30 ML CUP PO SCH (08:34)
[2024-07-04] MEDS: IPRATROPIUM-ALBUTEROL 3 ML NEB INHALATION SCH (08:55)
[2024-07-04] MEDS ORDERED: LOSARTAN 25 MG TAB PO SCH (09:00)
[2024-07-04 11:24] LABS: Glucose,Whole Blood 209 mg/dL (70-110)
--- NOTE | 2024-07-04 15:43 | P.PN ---
Subjective Progress Note Date: 07/04/24 63-year-old pleasant male well-known to me from his previous hospitalization with came in with the complaints of confusion and altered mental status. Patient is found to be hypercapnic with started on BiPAP patient does have history of sleep apnea uses CPAP machine is also on home oxygen. Chest x-ray showed some atelectatic changes in the right lower lung willis and possible pulmonary edema patient also has some pedal edema does take Lasix at home possibly diastolic dysfunction. Patient had extensive history in the past had a history of uncontrolled diabetes mellitus and history of discitis for which patient was on prolonged duration of antibiotic completed antibiotic therapy. Patient does not have any fever chills does not have any leukocytosis urine is significantly abnormal. Patient does not have any clear UTI symptoms though. Will obtain a procalcitonin level. 07-04-2024 Patient seen and examined at bedside. No acute events overnight. He has no complaints today. Nasal cannula 3 L and BiPAP at night. ABG yesterday pH 7.4, pCO2 78, pO2 79 he continues on IV ceftriaxone 2 g daily and IV Lasix 40 mg every 12 hours. He remains on WBC 7.0, hemoglobin 8.8, sodium 137, potassium 4.4, chloride 93, bicarb 42. Procalcitonin 0.12. Urine culture pending. Pulmonology monitoring closely. REVIEW OF SYSTEMS: All other systems are negative except those mentioned in the HPI PHYSICAL EXAMINATION: GENERAL: The patient is alert and oriented x3, not in any acute distress. Well developed, well nourished. Obese HEENT: Pupils are round and equally reacting to light. EOMI. No scleral icterus. No conjunctival pallor. Normocephalic, atraumatic. No pharyngeal erythema. No t hyromegaly. CARDIOVASCULAR: S1 and S2 present. No murmurs, rubs, or gallops. PULMONARY: Significantly diminished air entry without any wheezing or crackles. ABDOMEN: Soft, nontender, nondistended, normoactive bowel sounds. No palpable organomegaly. MUSCULOSKELETAL: No joint swelling or deformity. EXTREMITIES: No cyanosis, clubbing, mild pitting pedal edema NEUROLOGICAL: 0 out of 5 strength in right shoulder is chronic, otherwise gross neurological examination did not reveal any focal deficits. SKIN: Warm right erythematous skin over right barba. Assessment and plan -Altered mental status probably secondary to hypercapnia and metabolic encephalopathy: Patient is on 3 L NC and BiPAP nightly which will be continued pulmonary will evaluate the patient -Hypercapnic respiratory failure: Secondary to obstructive sleep apnea patient does have history of COPD but does not appear to be in COPD exacerbation at this time patient will be started on any systemic steroids -Possibility of urinary tract infection, continue Rocephin with along with urine cultures and blood cultures Possible cellulitis due to chronic venous insufficiency in right lower limb, continue Rocephin -Obesity hypoventilation syndrome -Chronic hypoxic and hypercapnic respiratory failure secondary to COPD and sleep apnea, which may be a competent of CHF chronic diastolic function patient Lasix dose will be increased to 20 mg twice a day monitoring I's and O's urine output put, kidney function and electrolytes -Type 2 diabetes mellitus patient will be started on sliding scale insulin patient may need to be started on his long-acting insulin if his eating -Congestive heart failure chronic diastolic function without any acute exacerbation -Diabetic peripheral neuropathy -Paroxysmal atrial fibrillation presently sinus rhythm patient is on Eliquis, resumed -History of discitis septic completed antibiotic therapy DVT prophylaxis: On Eliquis Dr. Jackie MD I have performed a history and physical examination and medical decision making of this patient, discussed the same with the the resident, and agree with the assessment and plan as written. I performed brief physical exam. Objective - Vital Signs Vital signs: Vital Signs Temp 98.9 F 07/04/24 12:12 Pulse 76 07/04/24 12:41 Resp 14 07/04/24 12:12 BP 102/63 07/04/24 12:12 Pulse Ox 98 07/04/24 12:12 FiO2 35 07/04/24 04:42 Intake & Output 07/03/24 07/04/24 07/04/24 18:59 06:59 18:59 Intake Total 420 Output Total 1500 1200 Balance -1500 -780 Weight 200.5 kg Intake: Oral 420 Output: Urine 1500 1200 Other: Voiding Method External Catheter External Catheter - Labs CBC & Chem 7: 07/05/24 06:48 07/05/24 06:48 Labs: Abnormal Lab Results - Last 24 Hours (Table) 07/03/24 07/03/24 07/03/24 Range/Units 11:14 18:23 20:54 RBC (4.30-5.90) m/uL Hgb (13.0-17.5) gm/dL Hct (39.0-53.0) % MCH (25.0-35.0) pg MCHC (31.0-37.0) g/dL RDW (11.5-15.5) % Chloride (98-107) mmol/L Carbon Dioxide (22-30) mmol/L Creatinine (0.66-1.25) mg/dL Glucose (74-99) mg/dL POC Glucose (mg/dL) 184 H 241 H (70-110) mg/dL Hemoglobin A1c 7.3 H (<=6.0) % Calcium (8.4-10.2) mg/dL 07/04/24 07/04/24 07/04/24 Range/Units 06:20 06:30 06:30 RBC 3.64 L (4.30-5.90) m/uL Hgb 8.8 L (13.0-17.5) gm/dL Hct 30.8 L (39.0-53.0) % MCH 24.2 L (25.0-35.0) pg MCHC 28.6 L (31.0-37.0) g/dL RDW 16.9 H (11.5-15.5) % Chloride 93 L (98-107) mmol/L Carbon Dioxide 42 H* (22-30) mmol/L Creatinine 0.65 L (0.66-1.25) mg/dL Glucose 134 H (74-99) mg/dL POC Glucose (mg/dL) 163 H (70-110) mg/dL Hemoglobin A1c (<=6.0) % Calcium 8.3 L (8.4-10.2) mg/dL 07/04/24 Range/Units 11:22 RBC (4.30-5.90) m/uL Hgb (13.0-17.5) gm/dL Hct (39.0-53.0) % MCH (25.0-35.0) pg MCHC (31.0-37.0) g/dL RDW (11.5-15.5) % Chloride (98-107) mmol/L Carbon Dioxide (22-30) mmol/L Creatinine (0.66-1.25) mg/dL Glucose (74-99) mg/dL POC Glucose (mg/dL) 209 H (70-110) mg/dL Hemoglobin A1c (<=6.0) % Calcium (8.4-10.2) mg/dL
[2024-07-04 16:21] LABS: Glucose,Whole Blood 268 mg/dL (70-110)
--- NOTE | 2024-07-04 16:36 | P.PN ---
Subjective Progress Note Date: 07/04/24 This is a 63-year-old morbidly obese male patient with a body mass index of 63. The patient was seen in the emergency department for altered mentation and confusion. The patient was answering some simple questions at time of admission. No focal neurological deficits. He was undergoing rehabilitation and long-term. No fever. No chills. No nausea or emesis. No chest pain. No pleurisy or hemoptysis. The patient was found to be in hypercapnic respiratory failure. A venous blood gas was done that showed a pH of 7.37 with a pCO2 of 85. Based on that, the patient was started on a BiPAP at a pressure of 14 over 5 cm of water on FiO2 of 40%. At the time of my evaluation, the patient was arousable and the patient was generating more than 400 cc of tidal volume on the BiPAP machine. Repeat blood gas was done an arterial sample that showed a pH of 7.4 with a pCO2 of 78 and pO2 of 79. I was able to take the patient off the BiPAP and placed him on oxygen 3 L/min nasal cannula and his pu lse ox was 95%. CAT scan of the brain that was done in the emergency department showed no acute abnormalities. Chest x-ray done in the emergency department showed CHF with interstitial edema and fluid thickening in the fissure especially on the right and patchy bibasilar atelectatic changes/infiltrate versus edema. Pneumonia cannot be completely excluded. The patient white cell count was at 8.6 with a hemoglobin of 0.3 and a platelet count of 315. Sodium is at 139, potassium is at 4.3, bicarb is at 43, BUN is 18 with a creatinine of 0.6. proBNP level was 1870. UA was abnormal consistent with underlying urinary tract infection. The EKG was consistent with atrial fibrillation. Noted the patient is currently on IV Rocephin. The patient is also on diuretics with Lasix 40 mg IV every 12 hours. His previous echocardiogram from May 2023 which is essentially a year ago showed a preserved LV function with an ejection fraction of 55 to 60% without any significant abnormalities. The patient is seen today July 04, 2024 in follow-up on the selective care unit. He is currently resting in bed. Awake and alert in no acute distress. He is maintaining O2 saturations in the 90s on 3 L/min per nasal cannula. He is alternating with BiPAP 14/5 and 35% FiO2. White count 7.0. Hemoglobin 8.8. Platelets 341. Sodium 137. Potassium 4.4. Bicarb 42. BUN 19. Creatinine 0.65. Glucose 134. He remains anticoagulated with Eliquis. Antibiotics in the form of ceftriaxone. Remains on IV diuretics. Currently in a -800 mL balance. Objective - Vital Signs Vital signs: Vital Signs Temp 98.5 F 07/04/24 15:56 Pulse 85 07/04/24 15:56 Resp 14 07/04/24 15:56 BP 104/62 07/04/24 15:56 Pulse Ox 99 07/04/24 15:56 FiO2 35 07/04/24 04:42 Intake & Output 07/03/24 07/04/24 07/04/24 18:59 06:59 18:59 Intake Total 420 Output Total 1500 1200 Balance -1500 -780 Weight 200.5 kg Intake: Oral 420 Output: Urine 1500 1200 Other: Voiding Method External Catheter External Catheter - Exam GENERAL EXAM: Alert, morbidly obese 63-year-old male, on 3 L nasal cannula, comfortable in no apparent distress. HEAD: Normocephalic. EYES: Normal reaction of pupils, equal size. NOSE: Clear with pink turbinates. THROAT: No erythema or exudates. NECK: No masses, no JVD. CHEST: No chest wall deformity. LUNGS: Equal air entry with crackles in the bilateral bases. CVS: S1 and S2 normal with no audible murmur, regular rhythm. ABDOMEN: No hepatosplenomegaly, normal bowel sounds, no guarding or rigidity. SPINE: No scoliosis or deformity SKIN: No rashes CENTRAL NERVOUS SYSTEM: No focal deficits, tone is normal in all 4 extremities. EXTREMITIES: There is no peripheral edema. No clubbing, no cyanosis. Peripheral pulses are intact. - Labs CBC & Chem 7: 07/04/24 06:30 07/04/24 06:30 Labs: Abnormal Lab Results - Last 24 Hours (Table) 07/03/24 07/03/24 07/03/24 Range/Units 11:14 18:23 20:54 RBC (4.30-5.90) m/uL Hgb (13.0-17.5) gm/dL Hct (39.0-53.0) % MCH (25.0-35.0) pg MCHC (31.0-37.0) g/dL RDW (11.5-15.5) % Chloride (98-107) mmol/L Carbon Dioxide (22-30) mmol/L Creatinine (0.66-1.25) mg/dL Glucose (74-99) mg/dL POC Glucose (mg/dL) 184 H 241 H (70-110) mg/dL Hemoglobin A1c 7.3 H (<=6.0) % Calcium (8.4-10.2) mg/dL 07/04/24 07/04/24 07/04/24 Range/Units 06:20 06:30 06:30 RBC 3.64 L (4.30-5.90) m/uL Hgb 8.8 L (13.0-17.5) gm/dL Hct 30.8 L (39.0-53.0) % MCH 24.2 L (25.0-35.0) pg MCHC 28.6 L (31.0-37.0) g/dL RDW 16.9 H (11.5-15.5) % Chloride 93 L (98-107) mmol/L Carbon Dioxide 42 H* (22-30) mmol/L Creatinine 0.65 L (0.66-1.25) mg/dL Glucose 134 H (74-99) mg/dL POC Glucose (mg/dL) 163 H (70-110) mg/dL Hemoglobin A1c (<=6.0) % Calcium 8.3 L (8.4-10.2) mg/dL 07/04/24 07/04/24 Range/Units 11:22 16:20 RBC (4.30-5.90) m/uL Hgb (13.0-17.5) gm/dL Hct (39.0-53.0) % MCH (25.0-35.0) pg MCHC (31.0-37.0) g/dL RDW (11.5-15.5) % Chloride (98-107) mmol/L Carbon Dioxide (22-30) mmol/L Creatinine (0.66-1.25) mg/dL Glucose (74-99) mg/dL POC Glucose (mg/dL) 209 H 268 H (70-110) mg/dL Hemoglobin A1c (<=6.0) % Calcium (8.4-10.2) mg/dL Assessment and Plan Assessment: Mental status change, possibly related to metabolic encephalopathy as the patient has underlying UTI and there could have been also a component of hypercapnic respiratory failure, acute on top of chronic at the time of admission contributing to his altered mentation. Patient is improving with a combination of antibiotics, diuretics and BiPAP therapy. Mental status is considerably improved. CAT scan of the brain is negative. Acute on chronic hypoxic/hypercapnic respiratory failure, on a BiPAP. Rule out a component of CHF with diastolic heart failure and additional edema. Pneumonia is doubtful. He does have a component of UTI. UTI CHF with preserved LV function/diastolic heart failure, elevated proBNP level Chronic A-fib, rate controlled and the patient is on anticoagulants Morbid obesity with a BMI of 63.9 Obstructive sleep apnea Hypertension Hyperlipidemia Diabetes mellitus type 2 BPH Chronic metabolic alkalosis, compensated 3 to his chronic hypercapnic respiratory failure History of iron deficiency anemia Polysubstance abuse with previous drug screen showing cocaine and benzodiazepines History of right diabetic foot infection with previous I&D back in July 2023 and polymicrobial growth. Plan: The patient was seen and evaluated Labs and medications reviewed Stable on 3 L nasal cannula Continue ceftriaxone Continue bronchodilators Continue IV diuretics Anticoagulated with Eliquis We will continue to follow I have personally seen and examined the patient, performed the documentation and the assessment and plan as written. Number of minutes spent on the visit: 10 Dictation was produced using [employer] dictation software. Please excuse any grammatical, word or spelling errors.
[2024-07-04 20:37] LABS: Glucose,Whole Blood 246 mg/dL (70-110)
[2024-07-05 06:26] LABS: Glucose,Whole Blood 207 mg/dL (70-110)
[2024-07-05 07:30] LABS: Anisocytosis Slight; HGB 9.3 gm/dL (13.0-17.5); Hypochromasia Marked; MCH 24.9 pg (25.0-35.0); MCHC 29.1 g/dL (31.0-37.0); MCV 85.4 fL (80.0-100.0); Mean Platelet Volume 6.4; Platelet Count 317 k/uL (150-450); RBC 3.75 m/uL (4.30-5.90); WBC 6.5 k/uL (3.8-10.6)
[2024-07-05 07:56] LABS: African American GFR (CKD) >90 (>60 ml/min/1.73 sqM); Blood Urea Nitrogen 17 mg/dL (9-20); Calcium 8.4 mg/dL (8.4-10.2); Chloride 90 mmol/L (98-107); Glucose 191 mg/dL (74-99); Non-African American GFR(CKD) >90 (>60 ml/min/1.73 sqM); Sodium 140 mmol/L (137-145)
[2024-07-05 08:03] LABS: Anion Gap 5 mmol/L
[2024-07-05 08:17] LABS: Carbon Dioxide 45 mmol/L (22-30)
[2024-07-05 11:56] LABS: Glucose,Whole Blood 185 mg/dL (70-110)
--- NOTE | 2024-07-05 14:52 | P.PN ---
Subjective Progress Note Date: 07/05/24 63-year-old pleasant male well-known to me from his previous hospitalization with came in with the complaints of confusion and altered mental status. Patient is found to be hypercapnic with started on BiPAP patient does have history of sleep apnea uses CPAP machine is also on home oxygen. Chest x-ray showed some atelectatic changes in the right lower lung willis and possible pulmonary edema patient also has some pedal edema does take Lasix at home possibly diastolic dysfunction. Patient had extensive history in the past had a history of uncontrolled diabetes mellitus and history of discitis for which patient was on prolonged duration of antibiotic completed antibiotic therapy. Patient does not have any fever chills does not have any leukocytosis urine is significantly abnormal. Patient does not have any clear UTI symptoms though. Will obtain a procalcitonin level. 07-04-2024 Patient seen and examined at bedside. No acute events overnight. He has no complaints today. Nasal cannula 3 L and BiPAP at night. ABG yesterday pH 7.4, pCO2 78, pO2 79 he continues on IV ceftriaxone 2 g daily and IV Lasix 40 mg every 12 hours. He remains on WBC 7.0, hemoglobin 8.8, sodium 137, potassium 4.4, chloride 93, bicarb 42. Procalcitonin 0.12. Urine culture pending. Pulmonology monitoring closely. 07-05-2024 Patient seen and examined at bedside. No acute events overnight. Patient stated concern about [facility], spoke with case management about discharge planning for [facility]. Nasal cannula 3 L and BiPAP at night. He continues on IV ceftriaxone 2 g daily, and IV Lasix 40 mg twice daily. Labs today WBC 6.5, hemoglobin 9.3, sodium 140, potassium 4.0, bicarb 45, glucose ranging 185-2 68. Urine culture with gram-negative bacilli. REVIEW OF SYSTEMS: All other systems are negative except those mentioned in the HPI PHYSICAL EXAMINATION: GENERAL: The patient is alert and oriented x3, not in any acute distress. Well developed, well nourished. Obese HEENT: Pupils are round and equally reacting to light. EOMI. No scleral icterus. No conjunctival pallor. Normocephalic, atraumatic. No pharyngeal erythema. No thyromegaly. CARDIOVASCULAR: S1 and S2 present. No murmurs, rubs, or gallops. PULMONARY: Significantly diminished air entry without any wheezing or crackles. ABDOMEN: Soft, nontender, nondistended, normoactive bowel sounds. No palpable organomegaly. MUSCULOSKELETAL: No joint swelling or deformity. EXTREMITIES: No cyanosis, clubbing, mild pitting pedal edema NEUROLOGICAL: 0 out of 5 strength in right shoulder is chronic, otherwise gross neurological examination did not reveal any focal deficits. SKIN: Warm right erythematous skin over right barba. Assessment and plan -Altered mental status probably secondary to hypercapnia and metabolic encephalopathy: Patient is on 3 L NC and BiPAP nightly which will be continued pulmonary will evaluate the patient, PT OT consulted -Hypercapnic respiratory failure: Secondary to obstructive sleep apnea patient does have history of COPD but does not appear to be in COPD exacerbation at this time, continue bronchodilators -Possibility of urinary tract infection, continue Rocephin with along with urine culture positive for gram-negative bacilli Possible cellulitis due to chronic venous insufficiency in right lower limb, continue Rocephin -Obesity hypoventilation syndrome -Chronic hypoxic and hypercapnic respiratory failure secondary to COPD and sleep apnea, which may be a competent of CHF chronic diastolic function patient Lasix dose will be increased to 40 mg twice a day monitoring I's and O's urine output put, kidney function and electrolytes -Type 2 diabetes mellitus patient will be started on sliding scale insulin patient may need to be started on his long-acting insulin if his eating -Congestive heart failure chronic diastolic function without any acute exacerbation -Diabetic peripheral neuropathy -Paroxysmal atrial fibrillation presently sinus rhythm patient is on Eliquis, resumed -History of discitis septic completed antibiotic therapy DVT prophylaxis: On Eliquis Objective - Vital Signs Vital signs: Vital Signs Temp 98.4 F 07/05/24 12:41 Pulse 71 07/05/24 12:41 Resp 14 07/05/24 12:41 BP 102/59 07/05/24 12:41 Pulse Ox 97 07/05/24 12:41 FiO2 35 07/05/24 03:59 Intake & Output 07/04/24 07/05/24 07/05/24 18:59 06:59 18:59 Intake Total 600 120 Output Total 1200 1200 Balance -600 -1200 120 Weight 210 kg Intake: Oral 600 120 Output: Urine 1200 1200 Other: Voiding Method External Catheter External Catheter External Catheter # Voids 1 # Bowel Movements 1 - Labs CBC & Chem 7: 07/05/24 06:48 07/05/24 06:48 Labs: Abnormal Lab Results - Last 24 Hours (Table) 07/04/24 07/04/24 07/05/24 Range/Units 16:20 20:35 06:24 RBC (4.30-5.90) m/uL Hgb (13.0-17.5) gm/dL Hct (39.0-53.0) % MCH (25.0-35.0) pg MCHC (31.0-37.0) g/dL RDW (11.5-15.5) % Chloride (98-107) mmol/L Carbon Dioxide (22-30) mmol/L Glucose (74-99) mg/dL POC Glucose (mg/dL) 268 H 246 H 207 H (70-110) mg/dL 07/05/24 07/05/24 07/05/24 Range/Units 06:48 06:48 11:53 RBC 3.75 L (4.30-5.90) m/uL Hgb 9.3 L (13.0-17.5) gm/dL Hct 32.0 L (39.0-53.0) % MCH 24.9 L (25.0-35.0) pg MCHC 29.1 L (31.0-37.0) g/dL RDW 17.0 H (11.5-15.5) % Chloride 90 L (98-107) mmol/L Carbon Dioxide 45 H* (22-30) mmol/L Glucose 191 H (74-99) mg/dL POC Glucose (mg/dL) 185 H (70-110) mg/dL Microbiology - Last 24 Hours (Table) 07/03/24 22:00 Urine Culture - Preliminary Urine,Voided Gram Neg Bacilli
--- NOTE | 2024-07-05 15:38 | P.PN ---
Subjective Progress Note Date: 07/05/24 Principal diagnosis: Acute metabolic encephalopathy with acute on chronic hypoxic and hypercapnic respiratory failure, multifactorial. This is a 63-year-old morbidly obese male patient with a body mass index of 63. The patient was seen in the emergency department for altered mentation and confusion. The patient was answering some simple questions at time of admission. No focal neurological deficits. He was undergoing rehabilitation and alf. No fever. No chills. No nausea or emesis. No chest pain. No pleurisy or hemoptysis. The patient was found to be in hypercapnic respiratory failure. A venous blood gas was done that showed a pH of 7.37 with a pCO2 of 85. Based on that, the patient was started on a BiPAP at a pressure of 14 over 5 cm of water on FiO2 of 40%. At the time of my evaluation, the patient was arousable and the patient was generating more than 400 cc of tidal volume on the BiPAP machine. Repeat blood gas was done an arterial sample that showed a pH of 7.4 with a pCO2 of 78 and pO2 of 79. I was able to take the patient off the BiPAP and placed him on oxygen 3 L/min nasal cannula and his pulse ox was 95%. CAT scan of the brain that was done in the emergency department showed no acute abnormalities. Chest x-ray done in the emergency department showed CHF with interstitial edema and fluid thickening in the fissure especially on the right and patchy bibasilar atelectatic changes/infiltrate versus edema. Pneumonia cannot be completely excluded. The patient white cell count was at 8.6 with a hemoglobin of 0.3 and a platelet count of 315. Sodium is at 139, potassium is at 4.3, bicarb is at 43, BUN is 18 with a creatinine of 0.6. proBNP level was 1870. UA was abnormal consistent with underlying urinary tract infection. The EKG was consistent with atrial fibrillation. Noted the patient is currently on IV Rocephin. The patient is also on diuretics with Lasix 40 mg IV every 12 hours. His previous echocardiogram from May 2023 which is essentially a year ago showed a preserved LV function with an ejection fraction of 55 to 60% without any significant abnormalities. The patient is seen today July 04, 2024 in follow-up on the selective care unit. He is currently resting in bed. Awake and alert in no acute distress. He is maintaining O2 saturations in the 90s on 3 L/min per nasal cannula. He is alternating with BiPAP 14/5 and 35% FiO2. White count 7.0. Hemoglobin 8.8. Platelets 341. Sodium 137. Potassium 4.4. Bicarb 42. BUN 19. Creatinine 0.65. Glucose 134. He remains anticoagulated with Eliquis. Antibiotics in the form of ceftriaxone. Remains on IV diuretics. Currently in a -800 mL balance. Patient was seen today on 07/05/2024, continues to steadily improve, less cough less shortness of breath, patient does not seem to be in any distress , on 3 L nasal cannula with O2 sat of 97%, labs today showed relatively normal CBC hemoglobin is 9.3 electrolytes are normal bicarb is 45 and this is expected considering his chronic hypercapnia and metabolic alkalosis compensating for his chronic hypercapnia.Renal profile is normal chest x-ray on admission showed mostly a picture of interstitial pulmonary edema, patient is improving with diuretics. BNP was elevated, procalcitonin level 0.12, hence pneumonia is felt to be less likely Objective - Vital Signs Vital signs: Vital Signs Temp 98.4 F 07/05/24 12:41 Pulse 71 07/05/24 12:41 Resp 14 07/05/24 12:41 BP 102/59 07/05/24 12:41 Pulse Ox 97 07/05/24 12:41 FiO2 35 07/05/24 03:59 Intake & Output 07/04/24 07/05/24 07/05/24 18:59 06:59 18:59 Intake Total 600 120 Output Total 1200 1200 Balance -600 -1200 120 Weight 210 kg Intake: Oral 600 120 Output: Urine 1200 1200 Other: Voiding Method External Catheter External Catheter External Catheter # Voids 1 # Bowel Movements 1 - Exam GENERAL EXAM: 63-year-old obese, in no distress on 3 L nasal cannula, BiPAP is at bedside but not using it. HEAD: Normocephalic. EYES: Normal reaction of pupils, equal size. NOSE: Clear with pink turbinates. THROAT: No erythema or exudates. NECK: No masses, no JVD. CHEST: No chest wall deformity. LUNGS: Equal air entry diminished breath sounds at the bases no rhonchi no wheezing CVS: S1 and S2 normal with no audible murmur, regular rhythm. ABDOMEN: Morbidly obese no hepatosplenomegaly, normal bowel sounds, no guarding or rigidity. SKIN: No rashes CENTRAL NERVOUS SYSTEM: No focal deficits, tone is normal in all 4 extremities. EXTREMITIES: Trace of bipedal edema. No clubbing, no cyanosis. Peripheral pulses are intact. - Labs CBC & Chem 7: 07/05/24 06:48 07/05/24 06:48 Labs: Abnormal Lab Results - Last 24 Hours (Table) 07/04/24 07/04/24 07/05/24 Range/Units 16:20 20:35 06:24 RBC (4.30-5.90) m/uL Hgb (13.0-17.5) gm/dL Hct (39.0-53.0) % MCH (25.0-35.0) pg MCHC (31.0-37.0) g/dL RDW (11.5-15.5) % Chloride (98-107) mmol/L Carbon Dioxide (22-30) mmol/L Glucose (74-99) mg/dL POC Glucose (mg/dL) 268 H 246 H 207 H (70-110) mg/dL 07/05/24 07/05/24 07/05/24 Range/Units 06:48 06:48 11:53 RBC 3.75 L (4.30-5.90) m/uL Hgb 9.3 L (13.0-17.5) gm/dL Hct 32.0 L (39.0-53.0) % MCH 24.9 L (25.0-35.0) pg MCHC 29.1 L (31.0-37.0) g/dL RDW 17.0 H (11.5-15.5) % Chloride 90 L (98-107) mmol/L Carbon Dioxide 45 H* (22-30) mmol/L Glucose 191 H (74-99) mg/dL POC Glucose (mg/dL) 185 H (70-110) mg/dL Microbiology - Last 24 Hours (Table) 07/03/24 22:00 Urine Culture - Preliminary Urine,Voided Gram Neg Bacilli Assessment and Plan Assessment: Impression Mental status change, secondary to acute on chronic hypoxic and hypercapnic respiratory failure Acute on chronic hypoxic/hypercapnic respiratory failure, on a BiPAP. Suspect diastolic congestive heart failure, improving with diuretics Obesity hypoventilation syndrome with BMI of 63.9 also contributing to his hypercapnia/chronic UTI CHF with preserved LV function/diastolic heart failure, elevated proBNP level Chronic A-fib, rate controlled and the patient is on anticoagulants Morbid obesity with a BMI of 63.9 Obstructive sleep apnea Hypertension Hyperlipidemia Diabetes mellitus type 2 BPH Chronic metabolic alkalosis,, secondary to chronic hypercapnia and secondary to diuretics History of iron deficiency anemia Polysubstance abuse with previous drug screen showing cocaine and benzodiazep april History of right diabetic foot infection with previous I&D back in July 2023 and polymicrobial growth. Plan: Continue present supportive care measures Continue diuretics Continue bronchodilators Continue antibiotics for his gram-negative bacilli in the urine final identification is pending Consider placement back in rehab or alf. Will continue to Time with Patient: Less than 30
[2024-07-05 16:53] LABS: Glucose,Whole Blood 276 mg/dL (70-110)
[2024-07-05 20:14] LABS: Glucose,Whole Blood 287 mg/dL (70-110)
[2024-07-05] MEDS: INSULIN DETEMIR (LEVEMIR) 100 UNIT/ML SYR SQ SCH (20:39)
[2024-07-05] MEDS ORDERED: ZINC OXIDE PASTE (Z-GUARD) 1 APPLIC TOPICAL PRN (22:28)
[2024-07-06] MEDS: HYDROcodone/APAP 10-325MG 1 EACH TAB PO PRN (01:55)
[2024-07-06 06:10] LABS: Glucose,Whole Blood 177 mg/dL (70-110)
[2024-07-06 07:34] LABS: Anisocytosis Slight; HCT 30.9 % (39.0-53.0); HGB 9.2 gm/dL (13.0-17.5); Hypochromasia Marked; MCH 25.2 pg (25.0-35.0); MCHC 29.7 g/dL (31.0-37.0); MCV 84.9 fL (80.0-100.0); Mean Platelet Volume 7.1; Platelet Count 343 k/uL (150-450); RBC 3.64 m/uL (4.30-5.90); RDW 16.8 % (11.5-15.5)
[2024-07-06 07:59] LABS: African American GFR (CKD) >90 (>60 ml/min/1.73 sqM); Blood Urea Nitrogen 20 mg/dL (9-20); Calcium 8.6 mg/dL (8.4-10.2); Chloride 89 mmol/L (98-107); Glucose 148 mg/dL (74-99); Non-African American GFR(CKD) >90 (>60 ml/min/1.73 sqM); Potassium 4.1 mmol/L (3.5-5.1); Sodium 139 mmol/L (137-145)
[2024-07-06 08:06] LABS: Anion Gap 2 mmol/L
[2024-07-06 08:12] LABS: Carbon Dioxide 48 mmol/L (22-30)
[2024-07-06 11:32] LABS: Glucose,Whole Blood 217 mg/dL (70-110)
--- NOTE | 2024-07-06 14:14 | P.PN ---
Subjective Progress Note Date: 07/06/24 Principal diagnosis: Acute metabolic encephalopathy with acute on chronic hypoxic and hypercapnic respiratory failure, multifactorial. This is a 63-year-old morbidly obese male patient with a body mass index of 63. The patient was seen in the emergency department for altered mentation and confusion. The patient was answering some simple questions at time of admission. No focal neurological deficits. He was undergoing rehabilitation and [facility]. No fever. No chills. No nausea or emesis. No chest pain. No pleurisy or hemoptysis. The patient was found to be in hypercapnic respiratory failure. A venous blood gas was done that showed a pH of 7.37 with a pCO2 of 85. Based on that, the patient was started on a BiPAP at a pressure of 14 over 5 cm of water on FiO2 of 40%. At the time of my evaluation, the patient was arousable and the patient was generating more than 400 cc of tidal volume on the BiPAP machine. Repeat blood gas was done an arterial sample that showed a pH of 7.4 with a pCO2 of 78 and pO2 of 79. I was able to take the patient off the BiPAP and placed him on oxygen 3 L/min nasal cannula and his pulse ox was 95%. CAT scan of the brain that was done in the emergency department showed no acute abnormalities. Chest x-ray done in the emergency department showed CHF with interstitial edema and fluid thickening in the fissure especially on the right and patchy bibasilar atelectatic changes/infiltrate versus edema. Pneumonia cannot be completely excluded. The patient white cell count was at 8.6 with a hemoglobin of 0.3 and a platelet count of 315. Sodium is at 139, potassium is at 4.3, bicarb is at 43, BUN is 18 with a creatinine of 0.6. proBNP level was 1870. UA was abnormal consistent with underlying urinary tract infection. The EKG was consistent with atrial fibrillation. Noted the patient is currently on IV Rocephin. The patient is also on diuretics with Lasix 40 mg IV every 12 hours. His previous echocardiogram from May 2023 which is essentially a year ago showed a preserved LV function with an ejection fraction of 55 to 60% without any significant abnormalities. The patient is seen today July 04, 2024 in follow-up on the selective care unit. He is currently resting in bed. Awake and alert in no acute distress. He is maintaining O2 saturations in the 90s on 3 L/min per nasal cannula. He is alternating with BiPAP 14/5 and 35% FiO2. White count 7.0. Hemoglobin 8.8. Platelets 341. Sodium 137. Potassium 4.4. Bicarb 42. BUN 19. Creatinine 0.65. Glucose 134. He remains anticoagulated with Eliquis. Antibiotics in the form of ceftriaxone. Remains on IV diuretics. Currently in a -800 mL balance. Patient was seen today on 07/05/2024, continues to steadily improve, less cough less shortness of breath, patient does not seem to be in any distress , on 3 L nasal cannula with O2 sat of 97%, labs today showed relatively normal CBC hemoglobin is 9.3 electrolytes are normal bicarb is 45 and this is expected considering his chronic hypercapnia and metabolic alkalosis compensating for his chronic hypercapnia.Renal profile is normal chest x-ray on admission showed mostly a picture of interstitial pulmonary edema, patient is improving with diuretics. BNP was elevated, procalcitonin level 0.12, hence pneumonia is felt to be less likely Seen today on 07/06/2024, patient is doing well, asymptomatic, patient continues to do well, improving, being considered for discharge today Objective - Vital Signs Vital signs: Vital Signs Temp 98.3 F 07/06/24 11:45 Pulse 84 07/06/24 12:39 Resp 14 07/06/24 11:45 BP 116/76 07/06/24 11:45 Pulse Ox 95 07/06/24 11:45 FiO2 35 07/06/24 03:53 Intake & Output 07/05/24 07/06/24 07/06/24 18:59 06:59 18:59 Intake Total 240 240 240 Output Total 1000 1200 Balance -760 -960 240 Weight 198.5 kg Intake: Oral 240 240 240 Output: Urine 1000 1200 Other: Voiding Method External Catheter External Catheter External Catheter # Bowel Movements 1 - Exam GENERAL EXAM: 63-year-old obese, in no distress on 3 L nasal cannula, sat is 95% hemodynamically stable HEAD: Normocephalic. EYES: Normal reaction of pupils, equal size. NOSE: Clear with pink turbinates. THROAT: No erythema or exudates. NECK: No masses, no JVD. CHEST: No chest wall deformity. LUNGS: Equal air entry diminished breath sounds at the bases no rhonchi no wheezing CVS: S1 and S2 normal with no audible murmur, regular rhythm. ABDOMEN: Morbidly obese no hepatosplenomegaly, normal bowel sounds, no guarding or rigidity. SKIN: No rashes CENTRAL NERVOUS SYSTEM: No focal deficits, tone is normal in all 4 extremities. EXTREMITIES: Trace of bipedal edema. No clubbing, no cyanosis. Peripheral pulses are intact. - Labs CBC & Chem 7: 07/06/24 06:42 07/06/24 06:42 Labs: Abnormal Lab Results - Last 24 Hours (Table) 07/05/24 07/05/24 07/06/24 Range/Units 16:50 20:13 06:08 RBC (4.30-5.90) m/uL Hgb (13.0-17.5) gm/dL Hct (39.0-53.0) % MCHC (31.0-37.0) g/dL RDW (11.5-15.5) % Chloride (98-107) mmol/L Carbon Dioxide (22-30) mmol/L Glucose (74-99) mg/dL POC Glucose (mg/dL) 276 H 287 H 177 H (70-110) mg/dL 07/06/24 07/06/24 07/06/24 Range/Units 06:42 06:42 11:28 RBC 3.64 L (4.30-5.90) m/uL Hgb 9.2 L (13.0-17.5) gm/dL Hct 30.9 L (39.0-53.0) % MCHC 29.7 L (31.0-37.0) g/dL RDW 16.8 H (11.5-15.5) % Chloride 89 L (98-107) mmol/L Carbon Dioxide 48 H* (22-30) mmol/L Glucose 148 H (74-99) mg/dL POC Glucose (mg/dL) 217 H (70-110) mg/dL Microbiology - Last 24 Hours (Table) 07/03/24 22:00 Urine Culture - Preliminary Urine,Voided Gram Neg Bacilli Assessment and Plan Assessment: Impression Mental status change, secondary to acute on chronic hypoxic and hypercapnic respiratory failure Acute on chronic hypoxic/hypercapnic respiratory failure, on a BiPAP. Suspect diastolic congestive heart failure, improving with diuretics Obesity hypoventilation syndrome with BMI of 63.9 also contributing to his hypercapnia/chronic UTI CHF with preserved LV function/diastolic heart failure, elevated proBNP level Chronic A-fib, rate controlled and the patient is on anticoagulants Morbid obesity with a BMI of 63.9 Obstructive sleep apnea Hypertension Hyperlipidemia Diabetes mellitus type 2 BPH Chronic metabolic alkalosis,, secondary to chronic hypercapnia and secondary to diuretics History of iron deficiency anemia Polysubstance abuse with previous drug screen showing cocaine and benzodiazepines History of right diabetic foot infection with previous I&D back in July 2023 and polymicrobial growth. Plan: Agree with discharge planning Continue present supportive care measures Continue diuretics outpatient basis Continue bronchodilators on outpatient basis Oral antibiotics for his UTI Going back to [facility] Time with Patient: Less than 30
--- NOTE | 2024-07-06 15:18 | P.PN ---
Subjective Progress Note Date: 07/06/24 63-year-old pleasant male well-known to me from his previous hospitalization with came in with the complaints of confusion and altered mental status. Patient is found to be hypercapnic with started on BiPAP patient does have history of sleep apnea uses CPAP machine is also on home oxygen. Chest x-ray showed some atelectatic changes in the right lower lung willis and possible pulmonary edema patient also has some pedal edema does take Lasix at home possibly diastolic dysfunction. Patient had extensive history in the past had a history of uncontrolled diabetes mellitus and history of discitis for which patient was on prolonged duration of antibiotic completed antibiotic therapy. Patient does not have any fever chills does not have any leukocytosis urine is significantly abnormal. Patient does not have any clear UTI symptoms though. Will obtain a procalcitonin level. 07-04-2024 Patient seen and examined at bedside. No acute events overnight. He has no complaints today. Nasal cannula 3 L and BiPAP at night. ABG yesterday pH 7.4, pCO2 78, pO2 79 he continues on IV ceftriaxone 2 g daily and IV Lasix 40 mg every 12 hours. He remains on WBC 7.0, hemoglobin 8.8, sodium 137, potassium 4.4, chloride 93, bicarb 42. Procalcitonin 0.12. Urine culture pending. Pulmonology monitoring closely. 07-05-2024 Patient seen and examined at bedside. No acute events overnight. Patient stated concern about [facility], spoke with case management about discharge planning [facility]. Nasal cannula 3 L and BiPAP at night. He continues on IV ceftriaxone 2 g daily, and IV Lasix 40 mg twice daily. Labs today WBC 6.5, hemoglobin 9.3, sodium 140, potassium 4.0, bicarb 45, glucose ranging 185-2 68. Urine culture with gram-negative bacilli. 07-06-2024 Patient seen and examined at bedside. No acute events overnight. Patient states he is feeling well. Likely discharge tomorrow. Awaiting BiPAP for [facility] placement. He remains on nasal cannula 3L and BiPAP at night. Discontinue ceftriaxone. Transition to oral Lasix 40 mg twice daily. Labs today WBC 8.0, hemoglobin 9.2, platelets 343, sodium 139, potassium 4.1, chloride 89, bicarb 48, anion gap 2, creatinine 0.68, glucose ranging 148-217. REVIEW OF SYSTEMS: All other systems are negative except those mentioned in the HPI PHYSICAL EXAMINATION: GENERAL: The patient is alert and oriented x3, not in any acute distress. Well developed, well nourished. Obese HEENT: Pupils are round and equally reacting to light. EOMI. No scleral icterus. No conjunctival pallor. Normocephalic, atraumatic. No pharyngeal erythema. No thyromegaly. CARDIOVASCULAR: S1 and S2 present. No murmurs, rubs, or gallops. PULMONARY: Significantly diminished air entry without any wheezing or crackles. ABDOMEN: Soft, nontender, nondistended, normoactive bowel sounds. No palpable organomegaly. MUSCULOSKELETAL: No joint swelling or deformity. EXTREMITIES: No cyanosis, clubbing, mild pitting pedal edema NEUROLOGICAL: 0 out of 5 strength in right shoulder is chronic, otherwise gross neurological examination did not reveal any focal deficits. SKIN: Warm right erythematous skin over right barba. Assessment and plan -Altered mental status probably secondary to hypercapnia and metabolic encephalopathy: Patient is on 3 L NC and BiPAP nightly which will be continued pulmonary will evaluate the patient, PT OT following -Hypercapnic respiratory failure: Secondary to obstructive sleep apnea patient does have history of COPD but does not appear to be in COPD exacerbation at this time, continue bronchodilators -Possibility of urinary tract infection, discontinue Rocephin, urine culture positive for gram-negative bacilli Chronic cellulitis due to chronic venous insufficiency in right lower limb, will now discontinue Rocephin -Obesity hypoventilation syndrome -Chronic hypoxic and hypercapnic respiratory failure secondary to COPD and sleep apnea, which may be a competent of CHF chronic diastolic function patient Lasix dose will be will be switched to oral to 40 mg twice a day monitoring I's and O's urine output put, kidney function and electrolytes -Type 2 diabetes mellitus patient will be started on sliding scale insulin patient may need to be started on his long-acting insulin if his eating -Congestive heart failure chronic diastolic function without any acute exacerbation -Diabetic peripheral neuropathy -Paroxysmal atrial fibrillation presently sinus rhythm patient is on Eliquis, resumed -History of discitis septic completed antibiotic therapy DVT prophylaxis: On Eliquis Objective - Vital Signs Vital signs: Vital Signs Temp 98.3 F 07/06/24 11:45 Pulse 84 12/04/24 12:39 Resp 14 07/06/24 11:45 BP 116/76 07/06/24 11:45 Pulse Ox 95 07/06/24 11:45 FiO2 35 07/06/24 03:53 Intake & Output 07/05/24 07/06/24 07/06/24 18:59 06:59 18:59 Intake Total 240 240 240 Output Total 1000 1200 500 Balance -760 -960 -260 Weight 198.5 kg Intake: Oral 240 240 240 Output: Urine 1000 1200 500 Other: Voiding Method External Catheter External Catheter External Catheter # Bowel Movements 1 - Labs CBC & Chem 7: 07/06/24 06:42 07/06/24 06:42 Labs: Abnormal Lab Results - Last 24 Hours (Table) 07/05/24 07/05/24 07/06/24 Range/Units 16:50 20:13 06:08 RBC (4.30-5.90) m/uL Hgb (13.0-17.5) gm/dL Hct (39.0-53.0) % MCHC (31.0-37.0) g/dL RDW (11.5-15.5) % Chloride (98-107) mmol/L Carbon Dioxide (22-30) mmol/L Glucose (74-99) mg/dL POC Glucose (mg/dL) 276 H 287 H 177 H (70-110) mg/dL 07/06/24 07/06/24 07/06/24 Range/Units 06:42 06:42 11:28 RBC 3.64 L (4.30-5.90) m/uL Hgb 9.2 L (13.0-17.5) gm/dL Hct 30.9 L (39.0-53.0) % MCHC 29.7 L (31.0-37.0) g/dL RDW 16.8 H (11.5-15.5) % Chloride 89 L (98-107) mmol/L Carbon Dioxide 48 H* (22-30) mmol/L Glucose 148 H (74-99) mg/dL POC Glucose (mg/dL) 217 H (70-110) mg/dL
[2024-07-06] MEDS: FUROSEMIDE 40 MG TAB PO SCH (15:41)
[2024-07-06 16:24] LABS: Glucose,Whole Blood 270 mg/dL (70-110)
[2024-07-06 20:11] LABS: Glucose,Whole Blood 290 mg/dL (70-110)
[2024-07-07 06:02] LABS: Glucose,Whole Blood 193 mg/dL (70-110)
[2024-07-07 06:14] LABS: Anisocytosis Slight; HCT 31.7 % (39.0-53.0); HGB 9.2 gm/dL (13.0-17.5); Hypochromasia Marked; MCH 24.7 pg (25.0-35.0); MCHC 29.1 g/dL (31.0-37.0); MCV 84.8 fL (80.0-100.0); Mean Platelet Volume 6.4; Platelet Count 323 k/uL (150-450); RBC 3.73 m/uL (4.30-5.90); RDW 16.7 % (11.5-15.5)
[2024-07-07 06:23] LABS: African American GFR (CKD) >90 (>60 ml/min/1.73 sqM); Blood Urea Nitrogen 19 mg/dL (9-20); Calcium 8.2 mg/dL (8.4-10.2); Chloride 92 mmol/L (98-107); Glucose 184 mg/dL (74-99); Non-African American GFR(CKD) >90 (>60 ml/min/1.73 sqM); Potassium 4.1 mmol/L (3.5-5.1); Sodium 137 mmol/L (137-145)
[2024-07-07 06:29] LABS: Anion Gap 2 mmol/L
[2024-07-07 06:30] LABS: Carbon Dioxide 43 mmol/L (22-30)
[2024-07-07 08:18] VITALS: RESP 17
[2024-07-07 11:21] LABS: Glucose,Whole Blood 317 mg/dL (70-110)
--- NOTE | 2024-07-07 13:26 | P.DS ---
Providers Date of admission: 07/02/24 22:24 Expected date of discharge: 07/07/24 Attending physician: Elbert Maria Consults: 07/02/24 22:24 Consult Physician Routine Consulting Provider: Audie Johnson Consult Reason/Comments: Hypercarbic respiratory failure, obesity associated Do you want consulting provider notified?: Yes Primary care physician: Marisa Gonzalez, Hospital Course: Discharge diagnoses; #Metabolic encephalopathy probably secondary to hypercapnia #Chronic hypoxic and hypercapnic respiratory failure secondary to COPD and sleep apnea #Urinary tract infection #Chronic cellulitis due to chronic venous insufficiency #Obesity hypoventilation syndrome #Type 2 diabetes mellitus #Congestive heart failure chronic diastolic function #Diabetic peripheral neuropathy #Paroxysmal atrial fibrillation #History of discitis septic Hospital course; 63-year-old pleasant male well-known to me from his previous hospitalization with came in with the complaints of confusion and altered mental status. Patient is found to be hypercapnic with started on BiPAP patient does have history of sleep apnea uses CPAP machine is also on home oxygen. Chest x-ray showed some atelectatic changes in the right lower lung willis and possible pulmonary edema patient also has some pedal edema does take Lasix at home possibly diastolic dysfunction. Patient had extensive history in the past had a history of uncontrolled diabetes mellitus and history of discitis for which patient was on prolonged duration of antibiotic completed antibiotic therapy. Patient does not have any fever chills does not have any leukocytosis urine is significantly abnormal. Patient does not have any clear UTI symptoms though. Will obtain a procalcitonin level. During hospital stay patient treated for metabolic encephalopathy likely due to hypercapnia and chronic hypoxic respiratory failure. He continued on daily oxygen 3 L and BiPAP at night. He was also treated for possible underlying UTI urine cultures with gram-negative bacilli. Pulmonology followed him during stay and continue bronchodilators. Bicarb remained elevated 42-48 during stay.IV Lasix was started and transition back to oral for underlying CHF which seemed to improve his symptoms. [facility]. Will need Bipap. No new medications. He is to follow-up with his PCP and pulmonology. PHYSICAL EXAMINATION: GENERAL: The patient is alert and oriented x3, not in any acute distress. Well developed, well nourished. Obese HEENT: Pupils are round and equally reacting to light. EOMI. No scleral icterus. No conjunctival pallor. Normocephalic, atraumatic. CARDIOVASCULAR: S1 and S2 present. No murmurs, rubs, or gallops. PULMONARY: Significantly diminished air entry without any wheezing or crackles. ABDOMEN: Soft, nontender, nondistended, normoactive bowel sounds. No palpable organomegaly. MUSCULOSKELETAL: No joint swelling or deformity. EXTREMITIES: No cyanosis, clubbing, mild pitting pedal edema NEUROLOGICAL: 0 out of 5 strength in right shoulder is chronic, otherwise gross neurological examination did not reveal any focal deficits. SKIN: Warm right erythematous skin over right barba. Dictation was produced using [employer] dictation software. please excuse any grammatical, word or spelling errors. Patient Condition at Discharge: Stable Plan - Discharge Summary Discharge Rx Participant: No New Discharge Prescriptions: Continue Omeprazole [PriLOSEC] 20 mg PO DAILY Metoprolol Tartrate [Lopressor] 12.5 mg PO BID polyethylene glycoL 3350 [Miralax] 17 gm PO DAILY PRN PRN Reason: Constipation Cholecalciferol [Vitamin D3 (25 Mcg = 1000 Iu)] 25 mcg PO DAILY Furosemide [Lasix] 40 mg PO DAILY Gabapentin 800 mg PO TID@,,21 Dextrose Chew [Glucose Chew Tab] 12 gm PO DAILY PRN PRN Reason: BS <70 Folic Acid 0.8 mg PO DAILY HYDROcodone/APAP 10-325MG [[place] 10-325] 1 tab PO Q6H PRN PRN Reason: Severe Pain (Scale 7 To 10) Acetaminophen Tab [Tylenol] 650 mg PO Q6H PRN PRN Reason: Pain Insulin Lispro [humaLOG Kwikpen] See Protocol SQ QID@07,11,16,20 Naloxone HCl [Narcan] 4 mg NASAL ONCE PRN PRN Reason: suspected opioid overdose Naloxone 0.4mg/Ml Injection 0.4 mg IV ONCE PRN PRN Reason: suspected opioid overdose Albuterol Nebulized [Ventolin Nebulized] 2.5 mg INHALATION RT-Q6H PRN PRN Reason: WHEEZING OR SHORTNESS BREATH Apixaban [Eliquis] 5 mg PO BID Dextrose Gel [Glutose 15 Gel] 15 gm PO DAILY PRN PRN Reason: BS <70 Famotidine [Pepcid] 20 mg PO DAILY Insulin Glargine,Hum.rec.anlog [Lantus Solostar Pen] 20 units SQ DAILY Lactulose 20 gm PO DAILY Losartan [Cozaar] 12.5 mg PO DAILY Magnesium Oxide [Mag-Ox] 400 mg PO HS Tamsulosin [Flomax] 0.4 mg PO DAILY Discharge Medication List Omeprazole [PriLOSEC] 20 mg PO DAILY 06/27/20 [History] Acetaminophen Tab [Tylenol] 650 mg PO Q6H PRN 05/25/23 [History] Cholecalciferol [Vitamin D3 (25 Mcg = 1000 Iu)] 25 mcg PO DAILY 05/25/23 [History] Insulin Lispro [humaLOG Kwikpen] See Protocol SQ QID@07,11,16,20 05/25/23 [History] Metoprolol Tartrate [Lopressor] 12.5 mg PO BID 05/25/23 [History] polyethylene glycoL 3350 [Miralax] 17 gm PO DAILY PRN 05/25/23 [History] Furosemide [Lasix] 40 mg PO DAILY 07/25/23 [History] Naloxone HCl [Narcan] 4 mg NASAL ONCE PRN 07/25/23 [History] Gabapentin 800 mg PO TID@05,13,21 08/02/23 [History] Albuterol Nebulized [Ventolin Nebulized] 2.5 mg INHALATION RT-Q6H PRN 07/03/24 [History] Apixaban [Eliquis] 5 mg PO BID 07/03/24 [History] Dextrose Chew [Glucose Chew Tab] 12 gm PO DAILY PRN 07/03/24 [History] Dextrose Gel [Glutose 15 Gel] 15 gm PO DAILY PRN 07/03/24 [History] Famotidine [Pepcid] 20 mg PO DAILY 07/03/24 [History] Folic Acid 0.8 mg PO DAILY 07/03/24 [History] HYDROcodone/APAP 10-325MG [[place] 10-325] 1 tab PO Q6H PRN 07/03/24 [History] Insulin Glargine,Hum.rec.anlog [Lantus Solostar Pen] 20 units SQ DAILY 07/03/24 [History] Lactulose 20 gm PO DAILY 07/03/24 [History] Losartan [Cozaar] 12.5 mg PO DAILY 07/03/24 [History] Magnesium Oxide [Mag-Ox] 400 mg PO HS 07/03/24 [History] Naloxone 0.4mg/Ml Injection 0.4 mg IV ONCE PRN 07/03/24 [History] Tamsulosin [Flomax] 0.4 mg PO DAILY 07/03/24 [History] Follow up Appointment(s)/Referral(s): Marisa Gonzalez DO [Primary Care Provider] - 1-2 days Patient Instructions/Handouts: Sleep Apnea (GEN), BiPAP (GEN), Acute Respiratory Failure (IP) Discharge Disposition: TRANSFER TO SNF/ECF
--- NOTE | 2024-07-07 13:30 | P.PN ---
Subjective Progress Note Date: 07/07/24 This is a 63-year-old morbidly obese male patient with a body mass index of 63. The patient was seen in the emergency department for altered mentation and confusion. The patient was answering some simple questions at time of admission. No focal neurological deficits. He was undergoing rehabilitation and mcc. No fever. No chills. No nausea or emesis. No chest pain. No pleurisy or hemoptysis. The patient was found to be in hypercapnic respiratory failure. A venous blood gas was done that showed a pH of 7.37 with a pCO2 of 85. Based on that, the patient was started on a BiPAP at a pressure of 14 over 5 cm of water on FiO2 of 40%. At the time of my evaluation, the patient was arousable and the patient was generating more than 400 cc of tidal volume on the BiPAP machine. Repeat blood gas was done an arterial sample that showed a pH of 7.4 with a pCO2 of 78 and pO2 of 79. I was able to take the patient off the BiPAP and placed him on oxygen 3 L/min nasal cannula and his pu lse ox was 95%. CAT scan of the brain that was done in the emergency department showed no acute abnormalities. Chest x-ray done in the emergency department showed CHF with interstitial edema and fluid thickening in the fissure especially on the right and patchy bibasilar atelectatic changes/infiltrate versus edema. Pneumonia cannot be completely excluded. The patient white cell count was at 8.6 with a hemoglobin of 0.3 and a platelet count of 315. Sodium is at 139, potassium is at 4.3, bicarb is at 43, BUN is 18 with a creatinine of 0.6. proBNP level was 1870. UA was abnormal consistent with underlying urinary tract infection. The EKG was consistent with atrial fibrillation. Noted the patient is currently on IV Rocephin. The patient is also on diuretics with Lasix 40 mg IV every 12 hours. His previous echocardiogram from May 2023 which is essentially a year ago showed a preserved LV function with an ejection fraction of 55 to 60% without any significant abnormalities. The patient is seen today July 04, 2024 in follow-up on the selective care unit. He is currently resting in bed. Awake and alert in no acute distress. He is maintaining O2 saturations in the 90s on 3 L/min per nasal cannula. He is alternating with BiPAP 14/5 and 35% FiO2. White count 7.0. Hemoglobin 8.8. Platelets 341. Sodium 137. Potassium 4.4. Bicarb 42. BUN 19. Creatinine 0.65. Glucose 134. He remains anticoagulated with Eliquis. Antibiotics in the form of ceftriaxone. Remains on IV diuretics. Currently in a -800 mL balance. Patient was seen today on 07/05/2024, continues to steadily improve, less cough less shortness of breath, patient does not seem to be in any distress , on 3 L nasal cannula with O2 sat of 97%, labs today showed relatively normal CBC hemoglobin is 9.3 electrolytes are normal bicarb is 45 and this is expected considering his chronic hypercapnia and metabolic alkalosis compensating for his chronic hypercapnia.Renal profile is normal chest x-ray on admission showed mostly a picture of interstitial pulmonary edema, patient is improving with diur etics. BNP was elevated, procalcitonin level 0.12, hence pneumonia is felt to be less likely Seen today on 07/06/2024, patient is doing well, asymptomatic, patient continues to do well, improving, being considered for discharge today The patient is seen today July 07, 2024 in follow-up on the selective care unit. He is currently resting in bed. Awake and alert in no acute distress. Maintaining good O2 saturations in the 90s on 3 L/min per nasal cannula. He is afebrile. Hemodynamically stable. Urine culture was positive for gram-negative bacilli. 6.0. Hemoglobin 9.2. Platelets 323. Sodium 137. Potassium 4.1. Bicarb 43. BUN 19. Creatinine 0.64. Glucose 184. He remains on ceftriaxone. Continued on bronchodilators. Remains on oral diuretics. Anticoagulated with Eliquis. Objective - Vital Signs Vital signs: Vital Signs Temp 98.6 F 07/07/24 11:55 Pulse 77 07/07/24 11:55 Resp 17 07/07/24 11:55 BP 91/60 07/07/24 11:55 Pulse Ox 93 L 07/07/24 11:55 FiO2 35 07/07/24 00:29 Intake & Output 07/06/24 07/07/24 07/07/24 18:59 06:59 18:59 Intake Total 358 160 Output Total 1700 600 Balance -1342 -600 160 Weight 208 kg Intake: IV 10 Invasive Line 1 10 Oral 358 150 Output: Urine 1700 600 Other: Voiding Method External Catheter External Catheter External Catheter - Exam GENERAL EXAM: Alert, morbidly obese 63-year-old male, resting in bed, on 3 L nasal cannula, in no apparent distress. HEAD: Normocephalic. EYES: Normal reaction of pupils, equal size. NOSE: Clear with pink turbinates. THROAT: No erythema or exudates. NECK: No masses, no JVD. CHEST: No chest wall deformity. LUNGS: Equal air entry with crackles in the bilateral bases. CVS: S1 and S2 normal with no audible murmur, regular rhythm. ABDOMEN: No hepatosplenomegaly, normal bowel sounds, no guarding or rigidity. SPINE: No scoliosis or deformity SKIN: No rashes CENTRAL NERVOUS SYSTEM: No focal deficits, tone is normal in all 4 extremities. EXTREMITIES: There is no peripheral edema. No clubbing, no cyanosis. Periphe ral pulses are intact. - Labs CBC & Chem 7: 07/07/24 05:28 07/07/24 05:28 Labs: Abnormal Lab Results - Last 24 Hours (Table) 07/06/24 07/06/24 07/07/24 Range/Units 16:22 20:09 05:28 RBC 3.73 L (4.30-5.90) m/uL Hgb 9.2 L (13.0-17.5) gm/dL Hct 31.7 L (39.0-53.0) % MCH 24.7 L (25.0-35.0) pg MCHC 29.1 L (31.0-37.0) g/dL RDW 16.7 H (11.5-15.5) % Chloride (98-107) mmol/L Carbon Dioxide (22-30) mmol/L Creatinine (0.66-1.25) mg/dL Glucose (74-99) mg/dL POC Glucose (mg/dL) 270 H 290 H (70-110) mg/dL Calcium (8.4-10.2) mg/dL 07/07/24 07/07/24 07/07/24 Range/Units 05:28 05:59 11:20 RBC (4.30-5.90) m/uL Hgb (13.0-17.5) gm/dL Hct (39.0-53.0) % MCH (25.0-35.0) pg MCHC (31.0-37.0) g/dL RDW (11.5-15.5) % Chloride 92 L (98-107) mmol/L Carbon Dioxide 43 H* (22-30) mmol/L Creatinine 0.64 L (0.66-1.25) mg/dL Glucose 184 H (74-99) mg/dL POC Glucose (mg/dL) 193 H 317 H (70-110) mg/dL Calcium 8.2 L (8.4-10.2) mg/dL Assessment and Plan Assessment: Mental status change, possibly related to metabolic encephalopathy as the patient has underlying UTI and there could have been also a component of hypercapnic respiratory failure, acute on top of chronic at the time of admission contributing to his altered mentation. Patient is improving with a combination of antibiotics, diuretics and BiPAP therapy. Mental status is considerably improved. CAT scan of the brain is negative. Acute on chronic hypoxic/hypercapnic respiratory failure, initially on a BiPAP. Rule out a component of CHF with diastolic heart failure and additional edema. Pneumonia is doubtful. He does have a component of UTI. UTI secondary to gram-negative bacilli, treated with ceftriaxone CHF with preserved LV function/diastolic heart failure, elevated proBNP level Chronic A-fib, rate controlled and the patient is on anticoagulants Morbid obesity with a BMI of 63.9 Obstructive sleep apnea Hypertension Hyperlipidemia Diabetes mellitus type 2 BPH Chronic metabolic alkalosis, compensated 3 to his chronic hypercapnic resp iratory failure History of iron deficiency anemia Polysubstance abuse with previous drug screen showing cocaine and benzodiazepines History of right diabetic foot infection with previous I&D back in July 2023 and polymicrobial growth. Plan: The patient was seen and evaluated Labs and medications reviewed Stable on 3 L nasal cannula Completed antibiotics Transitioned to oral diuretics Continued on bronchodilators To return to [facility] at discharge This patient was seen independently by the pulmonary nurse practitioner addressing pulmonary issues I have personally seen and examined the patient, performed the documentation and the assessment and plan as written. Number of minutes spent on the visit: 24 Dictation was produced using [employer] software. Please excuse any gr ammatical, word or spelling errors.
[2024-07-07] MEDS: HYDROcodone/APAP 10-325MG 1 EACH TAB PO PRN (15:14)
[2024-07-07 15:28] VITALS: BP 109/70; PULSE 82; TEMP 98.2
--- NOTE | 2024-07-08 15:21 | CDI ---
Documentation Clarification Form Date: 07/08/2024 03:02:39 PM From: Nan Cortes Phone: Admit Date: 07/02/2024 10:24:00 PM Patient Name: Dale Baird Visit Number: [id number] Discharge Date: 07/07/2024 03:50:00 PM ATTENTION: The Clinical Documentation Specialists (CDI) and [facility] Coding Staff appreciate your assistance in clarifying documentation. Please respond to the clarification below the line at the bottom and electronically sign. The CDI & [facility] Coding staff will review the response and follow-up if needed. Please note: Queries are made part of the Legal Health Record. If you have any questions, please contact the author of this message via ITS. Doctor/Provider: Mary Emery There is documentation of UTIper Consult 07/03 and Progress Note 07/04-07/07. Additional clarification is requested. History/Risk Factors: 63yo M, Metabolic encephalopathy, CH/HRF on BiPap, home O2, COPD, OHS, UTI, chroniccellulitisdue to chronicvenous insufficiency, IDDMII w periph neuropathy, CDHF, PAF Clinical Indicators: urine culture- proteus mirabilis Treatment: ceftriaxone Can you please clarify cause of UTI? [ ] UTIsecondary to gram-negativebacilli, unspecified [ ] UTIsecondary to proteus mirabilis [ ] Other, please specify [x ] Unable to determine (Template Last Revised: October 2020) MTDD
== END 2024-07-07 15:50 | DRG 189 ==
LOC: EC 20:35 → 3SCARD 22:24
PROVIDERS: ADMIT Hospitalist; ATTEND Hospitalist
PROC: 5A09357 Assistance with Respiratory Ventilation, Less than 24 Consecutive Hours, Continuous Positive Airway Pressure (ICD-10-PCS; principal; 2024-07-02)
DX: J96.22 Acute and chronic respiratory failure with hypercapnia (principal); G93.41 Metabolic encephalopathy; E66.2 Morbid (severe) obesity with alveolar hypoventilation; I50.32 Chronic diastolic (congestive) heart failure; Z68.44 Body mass index [BMI] 60.0-69.9, adult; E87.3 Alkalosis; L03.115 Cellulitis of right lower limb; N39.0 Urinary tract infection, site not specified; I11.0 Hypertensive heart disease with heart failure; J44.9 Chronic obstructive pulmonary disease, unspecified; E11.42 Type 2 diabetes mellitus with diabetic polyneuropathy; I48.0 Paroxysmal atrial fibrillation; F14.10 Cocaine abuse, uncomplicated; F13.10 Sedative, hypnotic or anxiolytic abuse, uncomplicated; J96.21 Acute and chronic respiratory failure with hypoxia; Z79.4 Long term (current) use of insulin; Z99.81 Dependence on supplemental oxygen; D50.9 Iron deficiency anemia, unspecified; T50.2X5A Adverse effect of carbonic-anhydrase inhibitors, benzothiadiazides and other diuretics, initial encounter; E78.5 Hyperlipidemia, unspecified; I87.2 Venous insufficiency (chronic) (peripheral); B96.89 Other specified bacterial agents as the cause of diseases classified elsewhere; N40.0 Benign prostatic hyperplasia without lower urinary tract symptoms; Z79.01 Long term (current) use of anticoagulants; Z79.84 Long term (current) use of oral hypoglycemic drugs; Z79.899 Other long term (current) drug therapy; Z87.891 Personal history of nicotine dependence; Z98.84 Bariatric surgery status; Z86.19 Personal history of other infectious and parasitic diseases
CPT/HCPCS: 36415; 36600; 70450; 71045; 80048; 80053; 81001; 82803; 82805; 83036; 83605; 83735; 83880; 84145; 85025; 85027; 85610; 85730; 87077; 87086; 87186; 93005; 94640; 94660; 94760; 96365; 96375; 99285; 99291

== ENCOUNTER 2024-08-05 06:48 | Inpatient (IN) | payer MEDICARE, OTHER ==
[2024-08-05 06:56] LABS: Glucose,Whole Blood 328 mg/dL (70-110)
[2024-08-05] MEDS: ETOMIDATE 2 MG/ML 10 ML VIAL IVP STA (06:56)
[2024-08-05] MEDS: ROCURONIUM 10 MG/ML (5 ML VIAL) IV ONE (06:57)
[2024-08-05 07:27] LABS: ALT 10 U/L (4-49); African American GFR (CKD) >90 (>60 ml/min/1.73 sqM); Albumin 3.7 g/dL (3.5-5.0); Blood Urea Nitrogen 20 mg/dL (9-20); Calcium 8.5 mg/dL (8.4-10.2); Chloride 93 mmol/L (98-107); Glucose 299 mg/dL (74-99); Non-African American GFR(CKD) >90 (>60 ml/min/1.73 sqM); Sodium 141 mmol/L (137-145); Total Bilirubin 0.8 mg/dL (0.2-1.3); Total Protein 7.7 g/dL (6.3-8.2)
[2024-08-05] MEDS: SODIUM CHLORIDE 0.9% 1,000 ML IV STA (07:30)
[2024-08-05 07:33] LABS: AST 42 U/L (17-59); Anion Gap 10 mmol/L; Basophils % (A) 0 %; Carbon Dioxide 38 mmol/L (22-30); Eosinophils # (A) 0.1 k/uL (0-0.7); Eosinophils % (A) 1 %; Hypochromasia Marked; Lymphocytes # (A) 0.6 k/uL (1.0-4.8); Lymphocytes % (A) 5 %; MCH 23.5 pg (25.0-35.0); Mean Platelet Volume 6.9; Monocytes # (A) 0.8 k/uL (0-1.0); Monocytes % (A) 7 %; Neutrophils # (A) 10.8 k/uL (1.3-7.7); Neutrophils % (A) 87 %; Platelet Count 380 k/uL (150-450); Potassium 5.8 mmol/L (3.5-5.1); Prothrombin Time 10.9 sec (10.0-12.5); RBC 4.26 m/uL (4.30-5.90); RDW 15.9 % (11.5-15.5); WBC 12.5 k/uL (3.8-10.6)
[2024-08-05 07:34] LABS: Alkaline Phosphatase 53 U/L (38-126); NT-Pro-B-Type Natriuretic Pept 3320 pg/mL
--- NOTE | 2024-08-05 08:02 | ED ---
General Adult HPI <Pepe Hansen - Last Filed: 08/05/24 09:07> - General Source: EMS Mode of arrival: EMS <Lisa - Last Filed: 08/05/24 18:15> - General Chief complaint: Shortness of Breath Stated complaint: Unresponsive Time Seen by Provider: 08/05/24 07:05 - History of Present Illness Initial comments: Patient is a 63-year-old male with past medical history of morbid obesity, COPD, A-fib, CVA, hypertension, hyperlipidemia presenting for respiratory distress. Patient's last seen normal was at 4:30 AM this morning and was found by medical [facility] staff unresponsive at 5:30 AM. Upon EMS arrival patient's pulse ox was 62%, he was hypotensive and minimally responsive. An i-gel was placed and he received assisted ventilations though did appear to be attempting to breathe around his airway intermittently. (Lisa Khan) - Related Data Home Medications Medication Instructions Recorded Confirmed Omeprazole [PriLOSEC] 20 mg PO DAILY 06/27/20 08/05/24 Cholecalciferol [Vitamin D3 (25 25 mcg PO DAILY 05/25/23 08/05/24 Mcg = 1000 Iu)] Insulin Lispro [humaLOG Kwikpen] See Protocol SQ ACHS 05/25/23 08/05/24 Metoprolol Tartrate [Lopressor] 12.5 mg PO BID 05/25/23 08/05/24 polyethylene glycoL 3350 [Miralax] 17 gm PO DAILY PRN 05/25/23 08/05/24 Furosemide [Lasix] 40 mg PO DAILY 07/25/23 08/05/24 Naloxone HCl [Narcan] 4 mg NASAL ONCE PRN 07/25/23 08/05/24 Gabapentin 800 mg PO Q8H 08/02/23 08/05/24 Albuterol Nebulized [Ventolin 2.5 mg INHALATION RT-Q6H PRN 07/03/24 08/05/24 Nebulized] Apixaban [Eliquis] 5 mg PO BID 07/03/24 08/05/24 Dextrose Chew [Glucose Chew Tab] 12 gm PO DAILY PRN 07/03/24 08/05/24 Dextrose Gel [Glutose 15 Gel] 15 gm PO DAILY PRN 07/03/24 08/05/24 Folic Acid 0.8 mg PO HS 07/03/24 08/05/24 Insulin Glargine,Hum.rec.anlog 20 units SQ DAILY 07/03/24 08/05/24 [Lantus Solostar Pen] Lactulose 20 gm PO DAILY 07/03/24 08/05/24 Losartan [Cozaar] 12.5 mg PO DAILY 07/03/24 08/05/24 Magnesium Oxide [Mag-Ox] 400 mg PO HS 07/03/24 08/05/24 Naloxone 0.4mg/Ml Injection 0.4 mg IV ONCE PRN 07/03/24 08/05/24 Tamsulosin [Flomax] 0.4 mg PO DAILY 07/03/24 08/05/24 Acetaminophen [Tylenol 8 Hour] 650 mg PO Q6H PRN 08/05/24 08/05/24 Ciprofloxacin HCl [Cipro] 500 mg PO Q12HR 08/05/24 08/05/24 HYDROcodone/APAP 10-325MG [Burgess 1 tab PO Q6HR PRN 08/05/24 08/05/24 10-325] Ipratropium-Albuterol Nebulize 3 ml INHALATION RT-Q4H PRN 08/05/24 08/05/24 [Duoneb 0.5 mg-3 mg/3 ml Soln] L.acidoph,Paracasei, B.lactis 1 cap PO DAILY 08/05/24 08/05/24 [Probiotic] Allergies Allergy/AdvReac Type Severity Reaction Status Date / Time latex Allergy Rash/Hives Verified 08/05/24 09:11 Review of Systems ROS Other: All systems not noted in ROS Statement are negative. <Pepe Hansen - Last Filed: 08/05/24 09:07> Limitations: ROS unobtainable due to patients medical condition <Lisa Khan - Last Filed: 08/05/24 18:15> ROS Statement: Those systems with pertinent positive or pertinent negative responses have been documented in the HPI. Past Medical History Past Medical History: Atrial Fibrillation, CVA/TIA, Diabetes Mellitus, GERD/Reflux, Hyperlipidemia, Hypertension, Sleep Apnea/CPAP/BIPAP Additional Past Medical History / Comment(s): diabetic neuropathy, "leaky valve", frequent foot & ankle swelling, USES C-PAP, shortness of breath, unable to walk distances. rhabdo History of Any Multi-Drug Resistant Organisms: CRE, ESBL, Other MDRO Date of last positivie culture/infection: 07/03/24 - [facility]IST[facility] [employer]-CRE; 07/28/23-ESBL MDRO Source:: [id number]; ESBL-Right Foot Past Surgical History: Bariatric Surgery, Hernia Repair Additional Past Surgical History / Comment(s): GASTRIC SLEEVE. EGD Past Anesthesia/Blood Transfusion Reactions: No Reported Reaction, Motion Sickness Past Psychological History: Anxiety Smoking Status: Former smoker Past Alcohol Use History: None Reported Past Drug Use History: None Reported - Past Family History Mother Family Medical History: Cancer Additional Family Medical History / Comment(s): Father Family Medical History: Hypertension Additional Family Medical History / Comment(s): Brother(s) Family Medical History: Asthma, COPD, Hypertension <Lisa Khan - Last Filed: 08/05/24 18:15> General Exam <Lisa Khan - Last Filed: 08/05/24 18:15> - General Exam Comments Initial Comments: PE: Exam is limited by patient's body habitus as he is morbidly obese CONSTITUTIONAL: In acute distress, unresponsive, actively receiving assisted respirations per EMS SKIN: Warm,damp , no jaundice, hives or petechiae. EYES: Pupils are 2 mm, round, nonreactive, clear conjunctiva, non-icteric sclera HENT: Normocephalic, atraumatic, moist mucus membranes, posterior oropharynx with thick yellow sputum NECK: , Full range of motion, normal appearance PULMONARY: Rhonchi and rales in the bilateral lung willis, decreased excursion, few intermittent spontaneous respirations around assisted ventilations CARDIOVASCULAR: Tachycardia, regular rate and rhythm, 2+ radial pulse palpated, no appreciated murmurs, rubs or gallops. extremities w/ intact distal perfusion. No lower extremity edema GASTROINTESTINAL: Soft, active bowel sounds throughout,non-distended, no palpable masses, no rebound or guarding. No hepatosplenomegaly, limited by body habitus MUSCULOSKELETAL: Extremities have no gross deformity NEUROLOGIC:_a/o x 0, GCS 3, exam limited by patient's unresponsiveness PSYCHIATRIC: Unable to assess (Lisa Khan) Course Vital Signs 08/05/24 08/05/24 08/05/24 06:55 07:14 07:27 Temperature 98.9 F Pulse Rate 112 H Respiratory 20 20 Rate Blood Pressure 114/82 O2 Sat by Pulse 96 Oximetry Fraction of 100 Inspired Oxygen (FIO2) 08/05/24 08/05/24 08/05/24 07:40 08:20 08:39 Temperature 99.7 F H 100.2 F H 100.6 F H Pulse Rate 108 H 113 H 113 H Respiratory 20 20 18 Rate Blood Pressure 135/66 127/97 122/85 O2 Sat by Pulse 100 92 L 95 Oximetry Fraction of Inspired Oxygen (FIO2) 08/05/24 08/05/24 08/05/24 08:51 09:31 09:39 Temperature 100.6 F H 100.8 F H 100.8 F H Pulse Rate 116 H 110 H 89 Respiratory 20 18 18 Rate Blood Pressure 101/70 77/37 81/43 O2 Sat by Pulse 99 96 96 Oximetry Fraction of Inspired Oxygen (FIO2) 08/05/24 08/05/24 08/05/24 09:44 10:02 10:06 Temperature 38.1 F L 100.6 F H Pulse Rate 98 96 83 Respiratory 18 18 18 Rate Blood Pressure 82/40 87/45 92/51 O2 Sat by Pulse 96 98 98 Oximetry Fraction of Inspired Oxygen (FIO2) 08/05/24 08/05/24 08/05/24 10:15 10:39 10:49 Temperature 100.6 F H Pulse Rate 96 74 78 Respiratory 18 18 18 Rate Blood Pressure 81/42 95/51 87/71 O2 Sat by Pulse 96 100 100 Oximetry Fraction of Inspired Oxygen (FIO2) 08/05/24 08/05/24 08/05/24 11:12 11:33 11:38 Temperature 100.8 F H 100.9 F H Pulse Rate 80 79 Respiratory 18 18 Rate Blood Pressure 101/69 106/67 O2 Sat by Pulse 100 100 Oximetry Fraction of 100 Inspired Oxygen (FIO2) 08/05/24 08/05/24 08/05/24 12:43 13:43 14:46 Temperature 100.8 F H 100.0 F H Pulse Rate 82 80 66 Respiratory 18 18 18 Rate Blood Pressure 108/59 103/67 120/64 O2 Sat by Pulse 100 100 96 Oximetry Fraction of Inspired Oxygen (FIO2) 08/05/24 08/05/24 08/05/24 15:02 15:17 16:41 Temperature 100.0 F H 100.8 F H Pulse Rate 70 78 Respiratory 18 18 Rate Blood Pressure 131/83 139/96 O2 Sat by Pulse 99 100 Oximetry Fraction of 100 Inspired Oxygen (FIO2) 08/05/24 08/05/24 08/05/24 17:07 17:13 17:36 Temperature 100.6 F H 100.4 F H 100.0 F H Pulse Rate 80 78 74 Respiratory 18 18 18 Rate Blood Pressure 110/64 85/62 77/37 O2 Sat by Pulse 96 95 95 Oximetry Fraction of Inspired Oxygen (FIO2) 08/05/24 18:02 Temperature 99.9 F H Pulse Rate 66 Respiratory 18 Rate Blood Pressure 68/44 O2 Sat by Pulse 97 Oximetry Fraction of Inspired Oxygen (FIO2) EKG Findings - EKG Comments: EKG Findings:: A-fib with RVR, rate 123 bpm, QRS duration 108 ms, QT/QTc 295/368 ms, normal axis, no ST elevations or depressions, compared to EKG performed on 07/02/2024, there is artifact limiting today's interpretation and comparison however no significant changes/ no new ST elevations or depressions from prior <Lisa Khan - Last Filed: 08/05/24 18:15> Procedures - Sepsis Sepsis Focused Exam #1 Time Sepsis Criteria Met: 08:30 Sepsis Focused Exam Date: 08/05/24 Sepsis Focused Exam Time: 09:10 Sepsis Focused Exam Complete: Yes Vital Signs & RN Notes Reviewed: Yes Capillary Refill: < 2 Seconds: Fingers, Toes Peripheral Pulses: Normal: Radial (R), Radial (L) Skin Color: Normal for Patient Respiratory Exam: wheezes, rales Cardiovascular Exam: tachycardia <Pepe Hansen Filed: 08/05/24 09:07> - Intubation Sedative: Etomidate Paralytic: Rocuronium Laryngoscope: Fabrizio Size: 3 Assist Device Used: other (Glydescope) ET Tube Size: 8 ET Tube Uncuffed: No Tube Secured Depth (cm): 26 Tube Secured Location: lips Tube Placement Confirmation: visualized tube passing through cords, equal breath sounds bilaterally, no breath sounds over epigastrium, confirmation by capnometry Patient Tolerated Procedure: well Intubation Complications: none <Lisa Khan Last Filed: 08/05/24 18:15> Medical Decision Making - Lab Data Result diagrams: 08/05/24 07:09 08/05/24 07:09 <Hansen,Pepe - Last Filed: 08/05/24 09:07> - Lab Data Result diagrams: 08/05/24 07:09 08/05/24 07:09 <Lisa Khan - Last Filed: 08/05/24 18:15> - Medical Decision Making Head CT interpreted by myself does not reveal any acute abnormality chest x-ray does show some cardiomegaly. Right upper and left lower infiltrates. Patient is reevaluated and vented. Lungs with wheezing. Case discussed with Dr. Miguel who is present evaluating the patient and will consult for critical care. [facility] paged for admission. Diagnosis: Respiratory failure, COVID-19 infection Acute, acute Procedure: See above intubation per Dr. Khan Threat to pulmonary function and life (Pepe Hansen) Was pt. sent in by a medical professional or institution (, PA, CONTRACT MAIL CARRIER, urgent care, hospital, or senior living...) When possible be specific @Patient was sent in by [facility] Did you speak to anyone other than the patient for history (EMS, parent, family, police, friend...)? 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 Why? @ -[I reviewed and agree with nursing and triage notes] Were old charts reviewed (outside hosp., previous admission, EMS record, old EKG, old radiological studies, urgent care reports/EKG's, senior living records)? Report findings Medical records reviewed- Patient recently admitted on 07/02/2024 and discharged on 07/07/2024 was admitted for confusion and altered mental status, was found to be in hypercapnic respiratory failure Differential Diagnosis (chest pain, altered mental status, abdominal pain women, abdominal pain men, vaginal bleeding, weakness, fever, dyspnea, syncope, headache, dizziness, GI bleed, back pain, seizure, CVA, palpatations, mental health, musculoskeletal)? Differential Dyspnea: Coronary syndrome, arrhythmia, tamponade, asthma, COPD, pulmonary embolism, pneumonia, pneumothorax, pulmonary effusion, anaphylaxis, anemia, neuromuscular, this is not meant to be an all-inclusive list. EKG interpreted by me (3pts min.). @ -[As above] X-rays interpreted by me (1pt min.). Chest x-ray appears to show bilateral consolidations, cardiomegaly ETT [address] interpreted by me (1pt min.). @pending at time of sign out U/S interpreted by me (1pt. min.). @ -[None done] What testing was considered but not performed or refused? (CT, X-rays, U/S, labs)? Why? @Considered CT chest however patient with obvious thick sputum, rhonchi and rales, exam more consistent with PNA vs CHF vs COPD exacerbation What meds were considered but not given or refused? Why? @ -[None] Did you discuss the management of the patient with other professionals (professionals i.e. , PA, CONTRACT MAIL CARRIER, lab, RT, psych nurse, social economist, phototypesetter operator, teacher, press officer, manager of case management)? Give summary @ -[No] Was smoking cessation discussed for >3mins.? @ -[No] Was critical care preformed (if so, how long)? @ -Yes, 45 minutes Were there social determinants of health that impacted care today? How? (Homelessness, low income, unemployed, alcoholism, drug addiction, transportation, low edu. Level, literacy, decrease access to med. care, alf, rehab)? @ -[No] Was there de-escalation of care discussed even if they declined (Discuss DNR or withdrawal of care, Hospice)? @ -[No] What co-morbidities impacted this encounter? (DM, HTN, Smoking, COPD, CAD, Cancer, CVA, ARF, Chemo, Hep., AIDS, mental health diagnosis, sleep apnea, morbid obesity)? @Obesity, COPD, CHF Was patient admitted / discharged? Hospital course, mention meds given and route, prescriptions, significant lab abnormalities, going to OR and other pertinent info. @ Signed out to oncoming physician, Dr. Hansen, pending completion of labs/imaging and admission- Patient is a 63-year-old gentleman presenting from the [facility] after being found unresponsive w/ difficulty in breathing. On arrival patient is receiving assisted ventilations via Igel, no spontaneous movements, u nresponsive, blood pressure stable on arrival, tachycardia, pulse ox 96% with assisted respirations, bilateral rhonchorous breath sounds with rales, pupils are 2 mm and nonreactive without spontaneous EOM , IV access was unable to be obtained per EMS, an IO was placed in the patient's right anterior tibia, IV placed in the right hand, etomidate rocuronium administered patient intubated.Of note, patient did appear to have somewhat swollen vocal cords, making intubation somewhat challenging. Patient did have thick yellow sputum in his airway during intubation as well, this was suctioned out. Differential as noted above, I highly suspect pneumonia, versus CHF exacerbation versus CO2 retention ultimately causing encephalopathy and respiratory arrest. CT brain, CXR comprehensive labs ordered. 2 L IV fluids, Zosyn ordered as well. Patient signed out to Dr. Hansen pending completion of workup. (Lisa Khan) - Lab Data Lab Results 08/05/24 08/05/24 08/05/24 Range/Units 06:54 07:09 07:09 WBC 12.5 H (3.8-10.6) k/uL RBC 4.26 L (4.30-5.90) m/uL Hgb 10.0 L (13.0-17.5) gm/dL Hct 37.0 L (39.0-53.0) % MCV 87.0 (80.0-100.0) fL MCH 23.5 L (25.0-35.0) pg MCHC 27.0 L (31.0-37.0) g/dL RDW 15.9 H (11.5-15.5) % Plt Count 380 (150-450) k/uL MPV 6.9 Neutrophils % 87 % Lymphocytes % 5 % Monocytes % 7 % Eosinophils % 1 % Basophils % 0 % Neutrophils # 10.8 H (1.3-7.7) k/uL Lymphocytes # 0.6 L (1.0-4.8) k/uL Monocytes # 0.8 (0-1.0) k/uL Eosinophils # 0.1 (0-0.7) k/uL Basophils # 0.0 (0-0.2) k/uL Hypochromasia Marked PT 10.9 (10.0-12.5) sec INR 1.0 (<1.2) APTT 21.8 L (22.0-30.0) sec Sodium (137-145) mmol/L Potassium (3.5-5.1) mmol/L Chloride (98-107) mmol/L Carbon Dioxide (22-30) mmol/L Anion Gap mmol/L BUN (9-20) mg/dL Creatinine (0.66-1.25) mg/dL Est GFR (CKD-EPI)AfAm (>60 ml/min/1.73 sqM) Est GFR (CKD-EPI)NonAf (>60 ml/min/1.73 sqM) Glucose (74-99) mg/dL POC Glucose (mg/dL) 328 H (70-110) mg/dL POC Glu Cremator ID Aaron Bobo Lactic Ac Sepsis Rflx Plasma Lactic Acid Antony (0.7-2.0) mmol/L Calcium (8.4-10.2) mg/dL Magnesium (1.6-2.3) mg/dL Total Bilirubin (0.2-1.3) mg/dL AST (17-59) U/L ALT (4-49) U/L Alkaline Phosphatase (38-126) U/L Troponin I (0.000-0.034) ng/mL NT-Pro-B Natriuret Pep pg/mL Total Protein (6.3-8.2) g/dL Albumin (3.5-5.0) g/dL Procalcitonin (0.02-0.50) ng/mL Influenza Type A (PCR) (Not Detectd) Influenza Type B (PCR) (Not Detectd) RSV (PCR) (Not Detectd) SARS-CoV-2 (PCR) (Not Detectd) 08/05/24 08/05/24 08/05/24 Range/Units 07:09 07:09 07:09 WBC (3.8-10.6) k/uL RBC (4.30-5.90) m/uL Hgb (13.0-17.5) gm/dL Hct (39.0-53.0) % MCV (80.0-100.0) fL MCH (25.0-35.0) pg MCHC (31.0-37.0) g/dL RDW (11.5-15.5) % Plt Count (150-450) k/uL MPV Neutrophils % % Lymphocytes % % Monocytes % % Eosinophils % % Basophils % % Neutrophils # (1.3-7.7) k/uL Lymphocytes # (1.0-4.8) k/uL Monocytes # (0-1.0) k/uL Eosinophils # (0-0.7) k/uL Basophils # (0-0.2) k/uL Hypochromasia PT (10.0-12.5) sec INR (<1.2) APTT (22.0-30.0) sec Sodium 141 (137-145) mmol/L Potassium 5.8 H (3.5-5.1) mmol/L Chloride 93 L (98-107) mmol/L Carbon Dioxide 38 H (22-30) mmol/L Anion Gap 10 mmol/L BUN 20 (9-20) mg/dL Creatinine 0.70 (0.66-1.25) mg/dL Est GFR (CKD-EPI)AfAm >90 (>60 ml/min/1.73 sqM) Est GFR (CKD-EPI)NonAf >90 (>60 ml/min/1.73 sqM) Glucose 299 H (74-99) mg/dL POC Glucose (mg/dL) (70-110) mg/dL POC Glu Cremator ID Lactic Ac Sepsis Rflx Plasma Lactic Acid Antony (0.7-2.0) mmol/L Calcium 8.5 (8.4-10.2) mg/dL Magnesium 2.0 (1.6-2.3) mg/dL Total Bilirubin 0.8 (0.2-1.3) mg/dL AST 42 (17-59) U/L ALT 10 (4-49) U/L Alkaline Phosphatase 53 (38-126) U/L Troponin I <0.012 (0.000-0.034) ng/mL NT-Pro-B Natriuret Pep 3320 pg/mL Total Protein 7.7 (6.3-8.2) g/dL Albumin 3.7 (3.5-5.0) g/dL Procalcitonin 0.22 (0.02-0.50) ng/mL Influenza Type A (PCR) (Not Detectd) Influenza Type B (PCR) (Not Detectd) RSV (PCR) (Not Detectd) SARS-CoV-2 (PCR) (Not Detectd) 08/05/24 08/05/24 08/05/24 Range/Units 07:36 08:39 09:10 WBC (3.8-10.6) k/uL RBC (4.30-5.90) m/uL Hgb (13.0-17.5) gm/dL Hct (39.0-53.0) % MCV (80.0-100.0) fL MCH (25.0-35.0) pg MCHC (31.0-37.0) g/dL RDW (11.5-15.5) % Plt Count (150-450) k/uL MPV Neutrophils % % Lymphocytes % % Monocytes % % Eosinophils % % Basophils % % Neutrophils # (1.3-7.7) k/uL Lymphocytes # (1.0-4.8) k/uL Monocytes # (0-1.0) k/uL Eosinophils # (0-0.7) k/uL Basophils # (0-0.2) k/uL Hypochromasia PT (10.0-12.5) sec INR (<1.2) APTT (22.0-30.0) sec Sodium (137-145) mmol/L Potassium (3.5-5.1) mmol/L Chloride (98-107) mmol/L Carbon Dioxide (22-30) mmol/L Anion Gap mmol/L BUN (9-20) mg/dL Creatinine (0.66-1.25) mg/dL Est GFR (CKD-EPI)AfAm (>60 ml/min/1.73 sqM) Est GFR (CKD-EPI)NonAf (>60 ml/min/1.73 sqM) Glucose (74-99) mg/dL POC Glucose (mg/dL) (70-110) mg/dL POC Glu Cremator ID Lactic Ac Sepsis Rflx Y Plasma Lactic Acid Antony 3.2 H* (0.7-2.0) mmol/L Calcium (8.4-10.2) mg/dL Magnesium (1.6-2.3) mg/dL Total Bilirubin (0.2-1.3) mg/dL AST (17-59) U/L ALT (4-49) U/L Alkaline Phosphatase (38-126) U/L Troponin I (0.000-0.034) ng/mL NT-Pro-B Natriuret Pep pg/mL Total Protein (6.3-8.2) g/dL Albumin (3.5-5.0) g/dL Procalcitonin (0.02-0.50) ng/mL Influenza Type A (PCR) Not Detected (Not Detectd) Influenza Type B (PCR) Not Detected (Not Detectd) RSV (PCR) Not Detected (Not Detectd) SARS-CoV-2 (PCR) Detected A (Not Detectd) Critical Care Time Critical Care Time: Yes <Pepe Hansen - Last Filed: 08/05/24 09:07> Disposition Is patient prescribed a controlled substance at d/c from ED?: No Time of Disposition: 09:09 <Pepe Hansen - Last Filed: 08/05/24 09:07> <Lisa Khan - Last Filed: 08/05/24 18:15> Clinical Impression: Acute respiratory failure, COVID-19 Disposition: ADMITTED IP TO THIS HOSP Condition: Critical
[2024-08-05 08:03] LABS: Partial Thromboplastin Time 21.8 sec (22.0-30.0)
[2024-08-05 08:17] LABS: Influenza A Not Detected (Not Detectd); Influenza B Not Detected (Not Detectd); RSV Not Detected (Not Detectd)
[2024-08-05] MEDS: PIPERACILLIN-TAZOBACTAM 3.375 GM in SODIUM CHLORIDE 0.9% 100 ML IVPB STA (08:35)
--- NOTE | 2024-08-05 08:35 | CT ---
EXAMINATION TYPE: CT brain wo con DATE OF EXAM: 08/05/2024 8:17 AM COMPARISON: None. CLINICAL INDICATION: Male, 63 years old with history of altered, AMS TECHNIQUE: CT of the brain is performed utilizing 3 mm thick sections through the posterior fossa and 3 mm thick sections through the remaining calvarium. Study is performed within 24 hours of arrival to the hospital. Contrast used: mL of , (none if empty) CT DLP: 1209.4 mGycm, Automated exposure control for dose reduction was used. FINDINGS: No abnormal hyperdensity is present to suggest an acute intracranial hemorrhage. No mass lesion is evident. No acute infarcts are evident. Some mild periventricular white matter changes may be adjacent to the frontal horns of the lateral ventricles. No significant interval change. Ventricles and sulci are appropriate for the patient age. Paranasal sinuses and mastoid air cells within the [id number] are clear. IMPRESSION: 1. No acute intracranial process. Follow up MRI can be performed as clinically indicated. 2. Mild chronic appearing periventricular white matter ischemic-type changes. [facility], , 08/05/2024 8:33 AM
--- NOTE | 2024-08-05 08:39 | XR ---
EXAMINATION TYPE: XR chest 1V portable DATE OF EXAM: 08/05/2024 7:15 AM COMPARISON: 07/02/2024 CLINICAL INDICATION: Male, 63 years old with history of Short of breath, TECHNIQUE: XR chest 1V portable view(s) obtained. FINDINGS: The heart size is largest. The pulmonary vasculature is normal. Right upper lobe infiltrate is present. Some mild increased left perihilar and lower globe lung maria esther ngs are present. Endotracheal tube tip is above the damian. Nasogastric transverses the thorax. IMPRESSION: 1. Developing right upper lobe infiltrate. Correlate for pneumonia or atelectasis. 2. Milder infiltrates extending left lower lobe. 3. Cardiomegaly. 4. Lines and catheters discussed above [facility], , 08/05/2024 8:37 AM
[2024-08-05] MEDS: fentaNYL (PF). 1,000 MCG in SODIUM CHLORIDE 0.9% 80 ML IV SCH (09:12)
[2024-08-05] MEDS ORDERED: IPRATROPIUM-ALBUTEROL 3 ML NEB INHALATION PRN (09:13)
[2024-08-05] MEDS ORDERED: Phosphorus Replacement Protoco 1 EACH MISC MISCELLANE PRN (09:13)
[2024-08-05] MEDS ORDERED: Magnesium Replacement Protocol 1 EACH MISC MISCELLANE PRN (09:13)
[2024-08-05] MEDS ORDERED: Potassium Replacement Protocol 1 EACH MISC MISCELLANE PRN (09:13)
[2024-08-05] MEDS ORDERED: NALOXONE 0.4 MG/ML 1 ML VIAL IV PRN (09:13)
[2024-08-05] MEDS ORDERED: PNEUMONIA PROTOCOL UTILIZED 1 EACH MISC PO PRN (09:16)
[2024-08-05] MEDS ORDERED: ALBUTEROL HFA INHALER INHALATION PRN (09:19)
[2024-08-05] MEDS: IPRATROPIUM-ALBUTEROL 3 ML NEB INHALATION STA (09:41)
[2024-08-05] MEDS: ALBUTEROL HFA INHALER INHALATION SCH (09:42)
--- NOTE | 2024-08-05 09:47 | P.HPIM ---
History of Present Illness This is a pleasant 63 years old male with multiple medical problems who was sent from [facility]. Patient presents because of respiratory distress and he got intubated in the emergency room. Information obtained from the staff and medical record. His abdomen is distended from severe obesity with BMI 64.4 however on palpation there is no significant tenderness with limitation of the exam. On admission also he had a fever of 100.6, is tachypneic and tachycardic.Blood pressure on the low side 81/43 And labs showing leukocytosis of 12.5, hemoglobin 10 Creatinine is within the reference range but potassium is elevated 5.8. Liver enzymes not elevated, INR within the reference range Chest x-ray showing cardiomegaly with right upper lobe infiltrate and left lower lobe infiltrate Versus is positive for COVID with negative for influenza Lactic acid elevated 3.2 proBNP is elevated to 3320. EKG showing A-fib with RVR at a rate of 123 CT of the brain is negative Patient started on Zithromax and Zosyn Review of Systems ROS unobtainable: due to endotracheal tube Past Medical History Past Medical History: Atrial Fibrillation, CVA/TIA, Diabetes Mellitus, GERD/Reflux, Hyperlipidemia, Hypertension, Sleep Apnea/CPAP/BIPAP Additional Past Medical History / Comment(s): diabetic neuropathy, "leaky valve", frequent foot & ankle swelling, USES C-PAP, shortness of breath, unable to walk distances. rhabdo History of Any Multi-Drug Resistant Organisms: CRE, ESBL, Other MDRO Date of last positivie culture/infection: 07/03/24 - [employer]-CRE; 07/28/23-ESBL MDRO Source:: [id number]; ESBL-Right Foot Past Surgical History: Bariatric Surgery, Hernia Repair Additional Past Surgical History / Comment(s): GASTRIC SLEEVE. EGD Past Anesthesia/Blood Transfusion Reactions: No Reported Reaction, Motion Sickness Past Psychological History: Anxiety Smoking Status: Former smoker Past Alcohol Use History: None Reported Past Drug Use History: None Reported - Past Family History Mother Family Medical History: Cancer Additional Family Medical History / Comment(s): Father Family Medical History: Hypertension Additional Family Medical History / Comment(s): Brother(s) Family Medical History: Asthma, COPD, Hypertension Medications and Allergies Home Medications Medication Instructions Recorded Confirmed Type Omeprazole [PriLOSEC] 20 mg PO DAILY 06/27/20 08/05/24 History Cholecalciferol [Vitamin D3 (25 25 mcg PO DAILY 05/25/23 08/05/24 History Mcg = 1000 Iu)] Insulin Lispro [humaLOG Kwikpen] See Protocol SQ ACHS 05/25/23 08/05/24 History Metoprolol Tartrate [Lopressor] 12.5 mg PO BID 05/25/23 08/05/24 History polyethylene glycoL 3350 [Miralax] 17 gm PO DAILY PRN 05/25/23 08/05/24 History Furosemide [Lasix] 40 mg PO DAILY 07/25/23 08/05/24 History Naloxone HCl [Narcan] 4 mg NASAL ONCE PRN 07/25/23 08/05/24 History Gabapentin 800 mg PO Q8H 08/02/23 08/05/24 History Albuterol Nebulized [Ventolin 2.5 mg INHALATION RT-Q6H PRN 07/03/24 08/05/24 History Nebulized] Apixaban [Eliquis] 5 mg PO BID 07/03/24 08/05/24 History Dextrose Chew [Glucose Chew Tab] 12 gm PO DAILY PRN 07/03/24 08/05/24 History Dextrose Gel [Glutose 15 Gel] 15 gm PO DAILY PRN 07/03/24 08/05/24 History Folic Acid 0.8 mg PO HS 07/03/24 08/05/24 History Insulin Glargine,Hum.rec.anlog 20 units SQ DAILY 07/03/24 08/05/24 History [Lantus Solostar Pen] Lactulose 20 gm PO DAILY 07/03/24 08/05/24 History Losartan [Cozaar] 12.5 mg PO DAILY 07/03/24 08/05/24 History Magnesium Oxide [Mag-Ox] 400 mg PO HS 07/03/24 08/05/24 History Naloxone 0.4mg/Ml Injection 0.4 mg IV ONCE PRN 07/03/24 08/05/24 History Tamsulosin [Flomax] 0.4 mg PO DAILY 07/03/24 08/05/24 History Acetaminophen [Tylenol 8 Hour] 650 mg PO Q6H PRN 08/05/24 08/05/24 History Ciprofloxacin HCl [Cipro] 500 mg PO Q12HR 08/05/24 08/05/24 History HYDROcodone/APAP 10-325MG [[place] 1 tab PO Q6HR PRN 08/05/24 08/05/24 History 10-325] Ipratropium-Albuterol Nebulize 3 ml INHALATION RT-Q4H PRN 08/05/24 08/05/24 History [Duoneb 0.5 mg-3 mg/3 ml Soln] L.acidoph,Paracasei, B.lactis 1 cap PO DAILY 08/05/24 08/05/24 History [Probiotic] Allergies Allergy/AdvReac Type Severity Reaction Status Date / Time latex Allergy Rash/Hives Verified 08/05/24 09:11 Physical Exam Vitals: Vital Signs Temp Pulse Resp BP Pulse Ox FiO2 08/05/24 09:39 100.8 F H 89 18 81/43 96 08/05/24 09:31 100.8 F H 110 H 18 77/37 96 08/05/24 08:51 100.6 F H 116 H 20 101/70 99 08/05/24 08:39 100.6 F H 113 H 18 122/85 95 08/05/24 08:20 100.2 F H 113 H 20 127/97 92 L 08/05/24 07:40 99.7 F H 108 H 20 135/66 100 08/05/24 07:27 100 08/05/24 07:14 20 08/05/24 06:55 98.9 F 112 H 20 114/82 96 Intake and Output 08/04/24 08/05/24 08/05/24 22:59 06:59 14:59 Intake Total 18.098 Balance 18.098 Intake: Intake, IV Titration 18.098 Amount propofoL 1,000 mg In 18.098 Empty Bag 1 bag @ 15 MCG/ KG/MIN 19.391 mls/hr IV . Q5H10M [facility] Rx#:[id number] Other: Weight 215.456 kg -GENERAL: The patient is intubated and sedated. He is morbidly obese HEENT: Pupils are round and equally reacting to light. EOMI. No scleral icterus. No conjunctival pallor. Normocephalic, atraumatic. No pharyngeal erythema. No thyromegaly. CARDIOVASCULAR: S1 and S2 present. No murmurs, rubs, or gallops. PULMONARY: Chest is clear to auscultation, no wheezing , no crackles. -ABDOMEN: Soft, nontender, nondistended, normoactive bowel sounds. No palpable organomegaly. Kelly catheter in place MUSCULOSKELETAL: No joint swelling or deformity. -EXTREMITIES: No cyanosis, clubbing, or pedal edema. Right lower leg superficial wound with dressing in place changed yesterday NEUROLOGICAL: Gross neurological examination did not reveal any focal deficits. SKIN: No rashes. no petechiae. Results CBC & Chem 7: 08/05/24 07:09 08/05/24 07:09 Labs: Abnormal Lab Results - Last 24 Hours (Table) 08/05/24 08/05/24 08/05/24 Range/Units 06:54 07:09 07:09 WBC 12.5 H (3.8-10.6) k/uL RBC 4.26 L (4.30-5.90) m/uL Hgb 10.0 L (13.0-17.5) gm/dL Hct 37.0 L (39.0-53.0) % MCH 23.5 L (25.0-35.0) pg MCHC 27.0 L (31.0-37.0) g/dL RDW 15.9 H (11.5-15.5) % Neutrophils # 10.8 H (1.3-7.7) k/uL Lymphocytes # 0.6 L (1.0-4.8) k/uL APTT 21.8 L (22.0-30.0) sec Potassium (3.5-5.1) mmol/L Chloride (98-107) mmol/L Carbon Dioxide (22-30) mmol/L Glucose (74-99) mg/dL POC Glucose (mg/dL) 328 H (70-110) mg/dL Plasma Lactic Acid Antony (0.7-2.0) mmol/L SARS-CoV-2 (PCR) (Not Detectd) 08/05/24 08/05/24 08/05/24 Range/Units 07:09 07:36 08:39 WBC (3.8-10.6) k/uL RBC (4.30-5.90) m/uL Hgb (13.0-17.5) gm/dL Hct (39.0-53.0) % MCH (25.0-35.0) pg MCHC (31.0-37.0) g/dL RDW (11.5-15.5) % Neutrophils # (1.3-7.7) k/uL Lymphocytes # (1.0-4.8) k/uL APTT (22.0-30.0) sec Potassium 5.8 H (3.5-5.1) mmol/L Chloride 93 L (98-107) mmol/L Carbon Dioxide 38 H (22-30) mmol/L Glucose 299 H (74-99) mg/dL POC Glucose (mg/dL) (70-110) mg/dL Plasma Lactic Acid Antony 3.2 H* (0.7-2.0) mmol/L SARS-CoV-2 (PCR) Detected A (Not Detectd) Assessment and Plan Assessment: Acute hypoxic respiratory failure requiring intubation on admission, currently on mechanical ventilation COVID infection and possible pneumonia Possible acute COPD exacerbation versus obesity hypoventilation syndrome Possible bacterial pneumonia, healthcare associated with right upper lobe and left lower lobe infiltrates Severe sepsis versus septic shock if no improvement with IV fluid patient may need pressors A-fib and RVR, present on admission Right leg wound Morbid obesity Chronic anemia Lactic acidemia/acidosis Plan: Continue with antibiotic Zithromax and Zosyn Continue with IV fluid Ringer lactate at 130 mL/h Continue with IV Solu-Medrol 80 mg every 6 hours Continue with intubation and mechanical ventilation. Patient require ICU admission Pulmonary/critical care team consult Labs and medication were reviewed.. Continue same treatment. Continue with symptomatic treatment. Resume home medication. Monitor labs and vitals. DVT and GI prophylaxis. Further recommendations as per clinical course of the patient DVT prophylaxis: Patient was on Eliquis at home, might be resumed later on if no more procedure required and once stabilized GI Prophylaxis: Pepcid PT/OT: Pending Prognosis is guarded
[2024-08-05] MEDS: PANTOPRAZOLE 40 MG/10 ML VIAL IV SCH (09:51)
[2024-08-05] MEDS: LACTATED RINGERS 1,000 ML IV SCH (09:54)
[2024-08-05 09:59] LABS: ABG Base Excess 13.5 mmol/L; ABG Oxygen Saturation 96.7 % (94-97); ABG PCO2 69 mmHg (35-45); ABG PH 7.38 (7.35-7.45); ABG PO2 74 mmHg (83-108); ABG TCO2 43 mmol/L (19-24); Allen Test Performed? Yes
[2024-08-05] MEDS: AZITHROMYCIN 500 MG in SODIUM CHLORIDE 0.9% 250 ML IVPB STA (10:00)
[2024-08-05 10:09] LABS: ABG HCO3 41 mmol/L (21-25)
[2024-08-05] MEDS: TIOTROPIUM 2.5 MCG INHALER INHALATION SCH (11:38)
[2024-08-05] MEDS ORDERED: IPRATROPIUM-ALBUTEROL 3 ML NEB INHALATION SCH ×2 (12:00)
[2024-08-05] MEDS: methylPREDNISolone SOD SUCCI 125 MG/2 ML VIAL IV SCH (12:47)
--- NOTE | 2024-08-05 13:47 | P.CNPUL ---
History of Present Illness Consult date: 08/05/24 Requesting physician: Bryn Hernandez Reason for consult: dyspnea, hypoxemia, obstructive sleep apnea Chief complaint: Respiratory failure. History of present illness: Pulmonary consult dated August 05, 2024. 63-year-old male who is brought into the emerged, on August 05, by EMS. The patient apparently was having respiratory distress, and became unresponsive. The patient has a history of morbid obesity, COPD, atrial fibrillation, CVA, hypertension, and hyperlipidemia. The patient was found by the staff, at the correction, the patient was unresponsive, and not breathing properly. This was about 5:30 AM. Saturations when EMS arrived 463%. He was hypotensive, and minimally responsive. In the emergency department, he was intubated by Dr. Hansen. Today we see him, in ER trauma to room. He is on the mechanical ventilator. Settings include volume assist-control, rate 20, tidal line 450, FiO2 100%, PEEP of 5. The patient is on propofol at 15 mcg/kg/min, and IV Zosyn. The patient was residing at the [facility]. The patient's brain CT was negative. The patient did have some possible right upper lobe infiltrates. Laboratory data includes a white count 12.5, hemoglobin 10, hematocrit 37, and a normal platelet count. Most recent blood gases show pO2 of 74, pCO2 of 69, pH of 7.38. Sodium 141, potassium 5.8, chlorides 93, CO2 38, BUN 20, creatinine 0.7. The patient's glucose was 299. Lactic acid was 3.2. The rest of the comprehensive metabolic profile was relatively normal. N- terminal proBNP was 3320. He did apparently test positive for coronavirus. Chest x-ray shows a developing right upper lobe infiltrate. The patient did have cardiomegaly, and some infiltrates, in the left lower lobe as well. Review of Systems REVIEW OF SYSTEMS: The review of systems could not be obtained as the patient is currently on the ventilator. CONSTITUTIONAL: [Negative.] NEUROLOGIC: [ Negative.] HEENT: [ Negative.] CARDIAC: [Negative.] PULMONARY: [Negative.] GI: [Negative.] : [Negative.] RHEUMATOLOGIC: [ Negative.] IMMUNOLOGIC: [ Negative.] ENDOCRINE: [Negative. ] DERMATOLOGIC: [Negative.] Past Medical History Past Medical History: Atrial Fibrillation, CVA/TIA, Diabetes Mellitus, GERD/Ref lux, Hyperlipidemia, Hypertension, Sleep Apnea/CPAP/BIPAP Additional Past Medical History / Comment(s): diabetic neuropathy, "leaky valve", frequent foot & ankle swelling, USES C-PAP, shortness of breath, unable to walk distances. rhabdo History of Any Multi-Drug Resistant Organisms: CRE, ESBL, Other MDRO Date of last positivie culture/infection: 07/03/24 - [employer]-CRE; 07/28/23-ESBL MDRO Source:: [id number]; ESBL-Right Foot Past Surgical History: Bariatric Surgery, Hernia Repair Additional Past Surgical History / Comment(s): GASTRIC SLEEVE. EGD Past Anesthesia/Blood Transfusion Reactions: No Reported Reaction, Motion Sickness Past Psychological History: Anxiety Smoking Status: Former smoker Past Alcohol Use History: None Reported Past Drug Use History: None Reported - Past Family History Mother Family Medical History: Cancer Additional Family Medical History / Comment(s): Father Family Medical History: Hypertension Additional Family Medical History / Comment(s): Brother(s) Family Medical History: Asthma, COPD, Hypertension Medications and Allergies Home Medications Medication Instructions Recorded Confirmed Type Omeprazole [PriLOSEC] 20 mg PO DAILY 06/27/20 08/05/24 History Cholecalciferol [Vitamin D3 (25 25 mcg PO DAILY 05/25/23 08/05/24 History Mcg = 1000 Iu)] Insulin Lispro [humaLOG Kwikpen] See Protocol SQ ACHS 05/25/23 08/05/24 History Metoprolol Tartrate [Lopressor] 12.5 mg PO BID 05/25/23 08/05/24 History polyethylene glycoL 3350 [Miralax] 17 gm PO DAILY PRN 05/25/23 08/05/24 History Furosemide [Lasix] 40 mg PO DAILY 07/25/23 08/05/24 History Naloxone HCl [Narcan] 4 mg NASAL ONCE PRN 07/25/23 08/05/24 History Gabapentin 800 mg PO Q8H 08/02/23 08/05/24 History Albuterol Nebulized [Ventolin 2.5 mg INHALATION RT-Q6H PRN 07/03/24 08/05/24 History Nebulized] Apixaban [Eliquis] 5 mg PO BID 07/03/24 08/05/24 History Dextrose Chew [Glucose Chew Tab] 12 gm PO DAILY PRN 07/03/24 08/05/24 History Dextrose Gel [Glutose 15 Gel] 15 gm PO DAILY PRN 07/03/24 08/05/24 History Folic Acid 0.8 mg PO HS 07/03/24 08/05/24 History Insulin Glargine,Hum.rec.anlog 20 units SQ DAILY 07/03/24 08/05/24 History [Lantus Solostar Pen] Lactulose 20 gm PO DAILY 07/03/24 08/05/24 History Losartan [Cozaar] 12.5 mg PO DAILY 07/03/24 08/05/24 History Magnesium Oxide [Mag-Ox] 400 mg PO HS 07/03/24 08/05/24 History Naloxone 0.4mg/Ml Injection 0.4 mg IV ONCE PRN 07/03/24 08/05/24 History Tamsulosin [Flomax] 0.4 mg PO DAILY 07/03/24 08/05/24 History Acetaminophen [Tylenol 8 Hour] 650 mg PO Q6H PRN 08/05/24 08/05/24 History Ciprofloxacin HCl [Cipro] 500 mg PO Q12HR 08/05/24 08/05/24 History HYDROcodone/APAP 10-325MG [[place] 1 tab PO Q6HR PRN 08/05/24 08/05/24 History 10-325] Ipratropium-Albuterol Nebulize 3 ml INHALATION RT-Q4H PRN 08/05/24 08/05/24 History [Duoneb 0.5 mg-3 mg/3 ml Soln] L.acidoph,Paracasei, B.lactis 1 cap PO DAILY 08/05/24 08/05/24 History [Probiotic] Allergies Allergy/AdvReac Type Severity Reaction Status Date / Time latex Allergy Rash/Hives Verified 08/05/24 09:11 Physical Exam Osteopathic Statement: *. No significant issues noted on an osteopathic structural exam other than those noted in the History and Physical/Consult. Vitals: Vital Signs Temp Pulse Resp BP Pulse Ox FiO2 08/05/24 12:43 100.8 F H 82 18 108/59 100 08/05/24 11:38 100.9 F H 79 18 106/67 100 08/05/24 11:33 100 08/05/24 11:12 100.8 F H 80 18 101/69 100 08/05/24 10:49 78 18 87/71 100 08/05/24 10:39 74 18 95/51 100 08/05/24 10:15 100.6 F H 96 18 81/42 96 08/05/24 10:06 83 18 92/51 98 08/05/24 10:02 100.6 F H 96 18 87/45 98 08/05/24 09:44 38.1 F L 98 18 82/40 96 08/05/24 09:39 100.8 F H 89 18 81/43 96 08/05/24 09:31 100.8 F H 110 H 18 77/37 96 08/05/24 08:51 100.6 F H 116 H 20 101/70 99 08/05/24 08:39 100.6 F H 113 H 18 122/85 95 08/05/24 08:20 100.2 F H 113 H 20 127/97 92 L 08/05/24 07:40 99.7 F H 108 H 20 135/66 100 08/05/24 07:27 100 08/05/24 07:14 20 08/05/24 06:55 98.9 F 112 H 20 114/82 96 Intake and Output 08/04/24 08/05/24 08/05/24 22:59 06:59 14:59 Intake Total 21.330 Balance 21.330 Intake: Intake, IV Titration 21.330 Amount propofoL 1,000 mg In 21.330 Empty Bag 1 bag @ 15 MCG/ KG/MIN 19.391 mls/hr IV . Q5H10M [facility] Rx#:[id number] Other: Weight 215.456 kg No acute distress, the patient is sedated, and orally intubated. HEENT examination is grossly unremarkable. Mucous membranes are moist. No oral lesions. Neck supple. Full range of motion. No adenopathy thyromegaly or neck vein distention. Cardiovascular examination reveals regular rhythm rate. S1-S2 normal. No S3 or S4. No discernible murmur noted. Heart sounds are very distant. Lungs reveal mostly clear breath sounds. Scattered rhonchi and crackles are noted. No wheezes. Breath sounds equal bilaterally. Abdomen is soft, but very obese. No bowel sounds. Extremities are intact. No clubbing or edema. The patient does have some mild lower extremity edema. Skin is without rash or lesion. Neurologic examination is brief but nonfocal. Results - Laboratory Findings CBC and BMP: 08/05/24 07:09 08/05/24 07:09 ABG ABG pH 7.38 (7.35-7.45) 08/05/24 09:54 ABG pCO2 69 mmHg (35-45) H 08/05/24 09:54 ABG pO2 74 mmHg (83-108) L 08/05/24 09:54 ABG O2 Saturation 96.7 % (94-97) 08/05/24 09:54 PT/INR, D-dimer PT 10.9 sec (10.0-12.5) 08/05/24 07:09 INR 1.0 (<1.2) 08/05/24 07:09 Abnormal lab findings: Abnormal Labs 08/05/24 08/05/24 08/05/24 06:54 07:09 07:09 WBC 12.5 H RBC 4.26 L Hgb 10.0 L Hct 37.0 L MCH 23.5 L MCHC 27.0 L RDW 15.9 H Neutrophils # 10.8 H Lymphocytes # 0.6 L APTT 21.8 L ABG pCO2 ABG pO2 ABG HCO3 ABG Total CO2 Hemoglobin Potassium Chloride Carbon Dioxide Glucose POC Glucose (mg/dL) 328 H Plasma Lactic Acid Antony SARS-CoV-2 (PCR) 08/05/24 08/05/24 08/05/24 07:09 07:36 08:39 WBC RBC Hgb Hct MCH MCHC RDW Neutrophils # Lymphocytes # APTT ABG pCO2 ABG pO2 ABG HCO3 ABG Total CO2 Hemoglobin Potassium 5.8 H Chloride 93 L Carbon Dioxide 38 H Glucose 299 H POC Glucose (mg/dL) Plasma Lactic Acid Antony 3.2 H* SARS-CoV-2 (PCR) Detected A 08/05/24 08/05/24 09:54 11:16 WBC RBC Hgb Hct MCH MCHC RDW Neutrophils # Lymphocytes # APTT ABG pCO2 69 H ABG pO2 74 L ABG HCO3 41 H* ABG Total CO2 43 H Hemoglobin 8.1 L Potassium Chloride Carbon Dioxide Glucose POC Glucose (mg/dL) Plasma Lactic Acid Antony 3.2 H* SARS-CoV-2 (PCR) - Diagnostic Findings Chest x-ray: image reviewed Assessment and Plan Assessment: Acute respiratory failure, possibly secondary to aspiration, right upper lobe. S/P intubation/mechanical ventilation, August 05, 2024. History of atrial fibrillation. History of CVA. History of diabetes mellitus. History of gastroesophageal reflux disease. History of hyperlipidemia. History of hypertension. History of obstructive sleep apnea syndrome. History of obesity. Plan: Plan dated August 05, 2024. The patient is seen in the emergency department. The patient was on volume assist-control, rate 20, tidal volume 450, 100% and a PEEP of 5. The patient is getting propofol, for sedation, Zosyn for antibiotic, and the rest of his medications. CAT scan of the brain was negative. The patient has a history of atrial fibrillation, CVA, diabetes, GERD, hyperlipidemia, hypertension, sleep apnea, and morbid obesity. Labs, x-rays, and all medications are reviewed. We will continue to follow the patient, make recommendations. Prognosis is guarded. Time with Patient: Greater than 30
[2024-08-05] MEDS: PIPERACILLIN-TAZOBACTAM 3.375 GM in SODIUM CHLORIDE 0.9% 100 ML IVPB SCH (15:34)
[2024-08-05] MEDS: ACETAMINOPHEN SUPPOSITORY 650 MG SUPP RECTAL PRN (16:49)
[2024-08-05] MEDS: LORazepam 2 MG/ML INJ IV PRN (17:03)
[2024-08-05] MEDS: SODIUM CHLORIDE 0.9% 500 ML 500 ML IV ONE (18:21)
[2024-08-05 20:10] LABS: Glucose,Whole Blood 287 mg/dL (70-110)
[2024-08-05] MEDS: NOREPINEPHRINE 4 MG in SODIUM CHLORIDE 0.9% 250 ML IV ONE (22:06)
[2024-08-05] MEDS ORDERED: DEXTROSE 50% SYRINGE 50 ML IVP PRN ×2 (23:22)
[2024-08-05 23:29] LABS: Glucose,Whole Blood 293 mg/dL (70-110)
[2024-08-05] MEDS: INSULIN ASPART (NovoLOG) 100 UNIT/ML VIAL SQ SCH (23:31)
[2024-08-06 05:31] LABS: Anisocytosis Slight; Basophils % (A) 0 %; Eosinophils % (A) 0 %; HCT 28.4 % (39.0-53.0); Hypochromasia Marked; Lymphocytes # (A) 0.7 k/uL (1.0-4.8); Lymphocytes % (A) 9 %; MCH 23.8 pg (25.0-35.0); MCHC 29.2 g/dL (31.0-37.0); Mean Platelet Volume 7.3; Monocytes # (A) 0.5 k/uL (0-1.0); Monocytes % (A) 7 %; Neutrophils # (A) 6.2 k/uL (1.3-7.7); Neutrophils % (A) 83 %; Platelet Count 338 k/uL (150-450); RDW 16.3 % (11.5-15.5); WBC 7.5 k/uL (3.8-10.6)
[2024-08-06 05:45] LABS: HGB 8.3 gm/dL (13.0-17.5); MCV 81.2 fL (80.0-100.0)
[2024-08-06 05:47] LABS: Glucose,Whole Blood 280 mg/dL (70-110)
[2024-08-06 05:53] LABS: ALT 9 U/L (4-49); AST 17 U/L (17-59); African American GFR (CKD) >90 (>60 ml/min/1.73 sqM); Albumin 2.8 g/dL (3.5-5.0); Alkaline Phosphatase 55 U/L (38-126); Anion Gap 6 mmol/L; Blood Urea Nitrogen 23 mg/dL (9-20); Calcium 8.6 mg/dL (8.4-10.2); Carbon Dioxide 37 mmol/L (22-30); Chloride 94 mmol/L (98-107); Glucose 246 mg/dL (74-99); Magnesium 1.8 mg/dL (1.6-2.3); Non-African American GFR(CKD) >90 (>60 ml/min/1.73 sqM); Potassium 3.9 mmol/L (3.5-5.1); Sodium 137 mmol/L (137-145); Total Bilirubin 0.4 mg/dL (0.2-1.3); Total Protein 5.9 g/dL (6.3-8.2)
[2024-08-06 06:21] LABS: Allen Test Performed? Yes
[2024-08-06 06:25] LABS: ABG PCO2 43 mmHg (35-45); ABG PH 7.58 (7.35-7.45); ABG PO2 58 mmHg (83-108)
[2024-08-06 06:26] LABS: ABG Base Excess 16.8 mmol/L; ABG HCO3 40 mmol/L (21-25); ABG Oxygen Saturation 93.9 % (94-97); ABG TCO2 42 mmol/L (19-24)
[2024-08-06] MEDS: MAGNESIUM SULFATE-D5W PMX 1 GM in DEXTROSE/WATER 1 100ML.BAG IVPB ONE (06:42)
[2024-08-06] MEDS: POTASSIUM BICARBONATE/CIT AC 20 MEQ TABLET.EFF NG-TUBE SCH (06:42)
--- NOTE | 2024-08-06 07:08 | XR ---
EXAMINATION TYPE: XR chest 1V portable DATE OF EXAM: 08/06/2024 CLINICAL HISTORY: Difficulty breathing progress study. TECHNIQUE: Single AP portable semiupright view of the chest is obtained. COMPARISON: Chest x-ray from one day earlier FINDINGS: Stable endotracheal and orogastric tubes. Persistent low lung volumes with slight worsening bilateral central increased opacities. Persistent m ild cardiomegaly. Old healed fractures of the posterior-lateral left fifth through seventh ribs is re demonstrated. IMPRESSION: Findings suggest worsening CHF exacerbation/fluid overload state. Correlate clinically. [facility], , 08/06/2024 7:06 AM
[2024-08-06] MEDS ORDERED: AZITHROMYCIN 500 MG in SODIUM CHLORIDE 0.9% 250 ML IVPB SCH (09:00)
[2024-08-06] MEDS: CISATRACURIUM 2 MG/ML 5 ML VIAL IV ONE (09:15)
--- NOTE | 2024-08-06 10:26 | PCN ---
PROCEDURE NOTE LOCATION: Procedures done in room 260, ICU. There was informed consent and universal timeout. FORESTRY CONSULTANT: Dr. Miguel. ASSISTED BY: Dr. Gilmore, Dr. Flores, and Dr. Maddox. PROCEDURE PERFORMED: Right radial arterial line. PREOPERATIVE DIAGNOSES: Frequent blood draws and blood gas monitoring. POSTOPERATIVE DIAGNOSES: Frequent blood draws and blood gas monitoring. DESCRIPTION OF PROCEDURE: ARTERIAL LINE PLACEMENT Indications: Hemodynamic monitoring. A time-out was completed verifying correct patient, procedure, site, positioning, and implant(s) or special equipment if applicable. Skinny's test was performed to ensure adequate perfusion. The patient's right wrist was prepped and draped in sterile fashion. 1% Lidocaine was used to anesthetize the area. An 18G Arrow arterial line was introduced into the radial. The catheter was threaded over the guide wire and the needle was removed with appropriate pulsatile blood return. Blood loss was minimal. Perfusion to the extremity distal to the point of catheter insertion was checked and found to be adequate. There was good blood return and waveform. The patient tolerated the procedure well. The catheter was sutured in place. Sterile dressing was applied by the nurse. There was no immediate complication. MMODL / IJN: [id number] /
--- NOTE | 2024-08-06 10:32 | PCN ---
PROCEDURE NOTE LOCATION: Procedures done in room 260, ICU. There was informed consent and universal timeout. PROCEDURE PERFORMED: Right femoral vein triple-lumen catheter. PREOPERATIVE DIAGNOSIS: Administration of fluids and pressors. POSTOPERATIVE DIAGNOSIS: Administration of fluids and pressors. We used the right femoral vein. SURGICAL DEVICE SALES REPRESENTATIVE: Dr. Miguel. ASSISTED BY: Dr. Gilmore, Dr. Flores, and Dr. Maddox. DESCRIPTION OF PROCEDURE: TRIPLE LUMEN CATHETER PLACEMENT Indication: Hemodynamic monitoring/Intravenous access. A time-out was completed verifying correct patient, procedure, site, positioning, and implant(s) or special equipment if applicable. The patient was placed in a dependent position appropriate for triple lumen catheter placement based on the vein to be cannulated. The patient's right groin was prepped and draped in sterile fashion. 1% Lidocaine was used to anesthetize the surrounding skin area. A triple lumen 9F Cordis catheter was introduced into the right common femoral vein using Seldinger technique. The catheter was threaded smoothly over the guide wire and appropriate blood return was obtained. Each lumen of the catheter was evacuated of air and flushed with sterile saline. Perfusion to the extremity distal to the point of catheter insertion was checked and found to be adequate. There was good blood return from all three ports. The patient tolerated the procedure well. The catheter was sutured in place. A sterile dressing was applied by the nurse. There was no immediate complication. A chest x-ray was not necessary. MMODL / IJN: [id number] /
[2024-08-06 11:41] LABS: Glucose,Whole Blood 256 mg/dL (70-110)
--- NOTE | 2024-08-06 11:54 | P.PN ---
Subjective Progress Note Date: 08/06/24 Principal diagnosis: Respiratory failure. Pulmonary consult dated August 05, 2024. 63-year-old male who is brought into the emerged, on August 05, by EMS. The patient apparently was having respiratory distress, and became unresponsive. The patient has a history of morbid obesity, COPD, atrial fibrillation, CVA, hypertension, and hyperlipidemia. The patient was found by the staff, at the [facility], the patient was unresponsive, and not breathing properly. This was about 5:30 AM. Saturations when EMS arrived 463%. He was hypotensive, and minimally responsive. In the emergency department, he was intubated by Dr. Hansen. Today we see him, in ER trauma to room. He is on the mechanical ventilator. Settings include volume assist-control, rate 20, tidal line 450, FiO2 100%, PEEP of 5. The patient is on propofol at 15 mcg/kg/min, and IV Zosyn. The patient was residing at the [facility]. The patient's brain CT was negative. The patient did have some possible right upper lobe infiltrates. Laboratory data includes a white count 12.5, hemoglobin 10, h ematocrit 37, and a normal platelet count. Most recent blood gases show pO2 of 74, pCO2 of 69, pH of 7.38. Sodium 141, potassium 5.8, chlorides 93, CO2 38, BUN 20, creatinine 0.7. The patient's glucose was 299. Lactic acid was 3.2. The rest of the comprehensive metabolic profile was relatively normal. N- terminal proBNP was 3320. He did apparently test positive for coronavirus. Chest x-ray shows a developing right upper lobe infiltrate. The patient did have cardiomegaly, and some infiltrates, in the left lower lobe as well. Progress note dated August 06, 2024. 63-year-old morbidly obese man seen yesterday in the emergency department. The patient remains on mechanical ventilator. He is on volume assist-control, rate 20, tidal volume 500, FiO2 100%, and PEEP of 5, to be increased to PEEP of 10. Blood gases, on a PEEP of 5, show pO2 of 58, pCO2 of 43, pH is 7.58. He is on propofol at 20 mcg/kg/min, fentanyl 0.5 mcg/kg/h, lactated Ringer's at 130 cc an hour, and Zosyn. Tube feedings will be started today. His procalcitonin level was 0.22. He was COVID-positive. His lactated Ringer's IV will be reduced down to 75 cc an hour. Current labs include a white count 7.5, hemoglobin 8.3, hematocrit 28.4, and a platelet count of 338,000. Sodium 137, potassium 3.9, chlorides 94, CO2 37, BUN 23, and creatinine 0.66. Albumin is 2.8. Chest x-ray suggest fluid overload. Objective - Vital Signs Vital signs: Vital Signs Temp 97.5 F L 08/06/24 08:00 Pulse 46 L 08/06/24 11:00 Resp 20 08/06/24 11:00 BP 129/79 08/06/24 10:00 Pulse Ox 96 08/06/24 11:00 FiO2 100 08/06/24 08:09 Intake & Output 08/05/24 08/06/24 08/06/24 18:59 06:59 18:59 Intake Total 81.983 1364.679 786 Output Total 475 507 Balance 81.983 889.679 279 Weight 215 kg Intake: IV 306 Lactated Ringers 1,000 ml 300 @ 75 mls/hr IV .[id number] [facility] Rx#:[id number] Pressure Bag 6 Intake, IV Titration 81.983 1364.679 330 Amount Azithromycin 500 mg In 650 Sodium Chloride 0.9% 250 ml @ 250 mls/hr IVPB ONCE STA Rx#:[id number] Lactated Ringers 1,000 ml 260 130 @ 75 mls/hr IV .[id number] [facility] Rx#:[id number] Magnesium Sulfate-D5w Pmx 100 1 gm In Dextrose/Water 1 100ml.bag @ 100 mls/hr IVPB ONCE ONE Rx#: [id number] Piperacillin-Tazobactam 3 75 .375 gm In Sodium Chloride 0.9% 100 ml @ 200 mls/hr IVPB ONCE STA Rx#:[id number] Piperacillin-Tazobactam 3 50 .375 gm In Sodium Chloride 0.9% 100 ml @ 25 mls/hr IVPB Q8HR [facility] Rx# :[id number] fentaNYL (PF). 1,000 mcg 138.971 In Sodium Chloride 0.9% 80 ml @ 0.5 MCG/KG/HR 10. 773 mls/hr IV .Q9H17M [facility] Rx#:[id number] propofoL 1,000 mg In 81.983 190.708 100 Empty Bag 1 bag @ 15 MCG/ KG/MIN 19.391 mls/hr IV . Q5H10M [facility] Rx#:[id number] Tube Feeding 100 Other 50 Output: Gastric Drainage 300 Urine 475 207 Other: Voiding Method Indwelling Catheter Indwelling Catheter ABP, PAP, CO, CI - Last Documented Arterial Blood Pressure 140/69 - Exam No acute distress, the patient is sedated, and orally intubated. HEENT examination is grossly unremarkable. Mucous membranes are moist. No oral lesions. Neck supple. Full range of motion. No adenopathy thyromegaly or neck vein distention. Cardiovascular examination reveals regular rhythm rate. S1-S2 normal. No S3 or S4. No discernible murmur noted. Heart sounds are very distant. Lungs reveal mostly clear breath sounds. Scattered rhonchi and crackles are not ed. No wheezes. Breath sounds equal bilaterally. Abdomen is soft, but very obese. No bowel sounds. Extremities are intact. No clubbing or edema. The patient does have some mild lower extremity edema. Skin is without rash or lesion. Neurologic examination be evaluated at this time. - Labs CBC & Chem 7: 08/06/24 05:07 08/06/24 05:03 Labs: Abnormal Lab Results - Last 24 Hours (Table) 08/05/24 08/05/24 08/05/24 Range/Units 11:16 20:09 23:28 RBC (4.30-5.90) m/uL Hgb (13.0-17.5) gm/dL Hct (39.0-53.0) % MCH (25.0-35.0) pg MCHC (31.0-37.0) g/dL RDW (11.5-15.5) % Lymphocytes # (1.0-4.8) k/uL ABG pH (7.35-7.45) ABG pO2 (83-108) mmHg ABG HCO3 (21-25) mmol/L ABG Total CO2 (19-24) mmol/L ABG O2 Saturation (94-97) % Chloride (98-107) mmol/L Carbon Dioxide (22-30) mmol/L BUN (9-20) mg/dL Glucose (74-99) mg/dL POC Glucose (mg/dL) 287 H 293 H (70-110) mg/dL Hemoglobin A1c (<=6.0) % Plasma Lactic Acid Antony 3.2 H* (0.7-2.0) mmol/L Total Protein (6.3-8.2) g/dL Albumin (3.5-5.0) g/dL 08/06/24 08/06/24 08/06/24 Range/Units 05:03 05:07 05:07 RBC 3.50 L (4.30-5.90) m/uL Hgb 8.3 L D (13.0-17.5) gm/dL Hct 28.4 L (39.0-53.0) % MCH 23.8 L (25.0-35.0) pg MCHC 29.2 L (31.0-37.0) g/dL RDW 16.3 H (11.5-15.5) % Lymphocytes # 0.7 L (1.0-4.8) k/uL ABG pH (7.35-7.45) ABG pO2 (83-108) mmHg ABG HCO3 (21-25) mmol/L ABG Total CO2 (19-24) mmol/L ABG O2 Saturation (94-97) % Chloride 94 L (98-107) mmol/L Carbon Dioxide 37 H (22-30) mmol/L BUN 23 H (9-20) mg/dL Glucose 246 H (74-99) mg/dL POC Glucose (mg/dL) (70-110) mg/dL Hemoglobin A1c 7.3 H (<=6.0) % Plasma Lactic Acid Antony (0.7-2.0) mmol/L Total Protein 5.9 L (6.3-8.2) g/dL Albumin 2.8 L (3.5-5.0) g/dL 08/06/24 08/06/24 08/06/24 Range/Units 05:45 06:15 11:40 RBC (4.30-5.90) m/uL Hgb (13.0-17.5) gm/dL Hct (39.0-53.0) % MCH (25.0-35.0) pg MCHC (31.0-37.0) g/dL RDW (11.5-15.5) % Lymphocytes # (1.0-4.8) k/uL ABG pH 7.58 H* (7.35-7.45) ABG pO2 58 L* (83-108) mmHg ABG HCO3 40 H* (21-25) mmol/L ABG Total CO2 42 H (19-24) mmol/L ABG O2 Saturation 93.9 L (94-97) % Chloride (98-107) mmol/L Carbon Dioxide (22-30) mmol/L BUN (9-20) mg/dL Glucose (74-99) mg/dL POC Glucose (mg/dL) 280 H 256 H (70-110) mg/dL Hemoglobin A1c (<=6.0) % Plasma Lactic Acid Antony (0.7-2.0) mmol/L Total Protein (6.3-8.2) g/dL Albumin (3.5-5.0) g/dL Microbiology - Last 24 Hours (Table) 08/05/24 07:40 Gram Stain - Preliminary Sputum Sputum Culture - Preliminary Assessment and Plan Assessment: Acute respiratory failure, possibly secondary to aspiration, right upper lobe. S/P intubation/mechanical ventilation, August 05, 2024. Coronavirus infection. History of atrial fibrillation. History of CVA. History of diabetes mellitus. History of gastroesophageal reflux disease. History of hyperlipidemia. History of hypertension. History of obstructive sleep apnea syndrome. Morbid obesity. Plan: Plan dated August 05, 2024. The patient is seen in the emergency department. The patient was on volume assist-control, rate 20, tidal volume 450, 100% and a PEEP of 5. The patient is getting propofol, for sedation, Zosyn for antibiotic, and the rest of his medications. CAT scan of the brain was negative. The patient has a history of atrial fibrillation, CVA, diabetes, GERD, hyperlipidemia, hypertension, sleep apnea, and morbid obesity. Labs, x-rays, and all medications are reviewed. We will continue to follow the patient, make recommendations. Prognosis is guarded. Plan dated August 06, 2024. The patient is seen in the intensive care unit, room 260. The patient did test positive for coronavirus. PEEP was increased from 5, up to 10 cm of water. The patient continues on propofol and fentanyl. We will start tube feedings. Procalcitonin level is normal. Antibiotic is discontinued. Labs, x-rays, and medications are reviewed. We will continue to follow the patient, make recommendations along the way. Prognosis is poor. We were able to place a right radial art line, and a right femoral vein triple-lumen catheter today, with much difficulty. Time with Patient: Greater than 30
[2024-08-06] MEDS: POTASSIUM CHLORIDE 10 MEQ in WATER FOR INJECTION 1 100ML.BAG IVPB SCH (15:28)
[2024-08-06 17:16] LABS: Glucose,Whole Blood 236 mg/dL (70-110)
[2024-08-06] MEDS ORDERED: ALBUTEROL NEBULIZED 2.5 MG/3 ML INHALATION PRN (19:31)
--- NOTE | 2024-08-06 19:34 | P.PN ---
Subjective Progress Note Date: 08/06/24 Patient in the intensive care unit currently intubated and sedated on the mechanical ventilator. Patient's chest x-ray today does reveal worsening CHF. He is significantly edematous. Remains sedated with IV fentanyl and propofol. He continues on IV Zosyn. Patient was started on enteral feedings today. blood sugars are elevated in the 200s. Unable to complete review of systems as patient is currently intubated and sedated PHYSICAL EXAMINATION: -GENERAL: The patient is intubated and sedated. He is morbidly obese HEENT: Pupils are round and equally reacting to light. EOMI. No scleral icterus. No conjunctival pallor. Normocephalic, atraumatic. No pharyngeal erythema. No thyromegaly. CARDIOVASCULAR: S1 and S2 present. No murmurs, rubs, or gallops. PULMONARY: Chest is clear to auscultation, no wheezing , no crackles. -ABDOMEN: Soft, nontender, nondistended, normoactive bowel sounds. No palpable organomegaly. Kelly catheter in place MUSCULOSKELETAL: No joint swelling or deformity. -EXTREMITIES: No cyanosis, clubbing, significant lower extremity edema bilaterally pitting right lower leg superficial wound with dressing in place changed yesterday NEUROLOGICAL: Gross neurological examination did not reveal any focal deficits. SKIN: No rashes. no petechiae. Assessment and plan Acute hypoxic respiratory failure requiring intubation on admission, currently on mechanical ventilation COVID infection and possible pneumonia Possible acute COPD exacerbation versus obesity hypoventilation syndrome Possible bacterial pneumonia, healthcare associated with right upper lobe and left lower lobe infiltrates Severe sepsis versus septic shock if no improvement with IV fluid patient may need pressors A-fib and RVR, present on admission now with slow ventricular rate dropping into the 30s. Right leg wound with recent cultures showing enterococcus faecalis, ESBL and Providencia Rettgeri Diabetes Mellitus type 2 with hyperglycemia Morbid obesity Chronic anemia Lactic acidemia/acidosis GI prophylaxis DVT prophylaxis Full Code Plan Continue with antibiotic Zithromax and Zosyn Continue with IV fluid Ringer lactate decreased to 75 mls/hr. Continue with IV Solu-Medrol 80 mg every 6 hours Continue with intubation and mechanical ventilation. Patient require ICU admission Pulmonary/critical care team consult Continue enteral feedings Continue cardiac telemetry if heart rate remains low will consider cardiac consultation. Continue hold metoprolol, losartan held and lasix held currently Resume eliquis Resume long acting insulin 20 units at HS and continue sliding scale Q6h with further adjustments to be made if patient remains hyperglycemic Repeat blood work in the AM The impression and plan of care has been dictated by Susannah Campbell, Nurse Practitioner as directed. Dr. Jackie MD I have performed a history and physical examination and medical decision making of this patient, discussed the same with the dictator, and agree with the dictators assessment and plan as written, documented as a scribe. Based on total visit time, I have performed more than 50% of this visit. Objective - Vital Signs Vital signs: Vital Signs Temp 96.6 F L 08/06/24 16:00 Pulse 53 L 08/06/24 19:00 Resp 20 08/06/24 19:00 BP 129/79 08/06/24 10:00 Pulse Ox 96 08/06/24 19:00 FiO2 100 08/06/24 16:08 Intake & Output 08/06/24 08/06/24 08/07/24 06:59 18:59 06:59 Intake Total 9262.177 4175.996 Output Total 475 962 Balance 065.952 7126.996 Weight 215 kg 215 kg Intake: IV 951 Lactated Ringers 1,000 ml 900 @ 75 mls/hr IV .[id number] [facility] Rx#:[id number] Pressure Bag 51 Intake, IV Titration 1364.679 699.996 Amount Azithromycin 500 mg In 650 Sodium Chloride 0.9% 250 ml @ 250 mls/hr IVPB ONCE STA Rx#:[id number] Lactated Ringers 1,000 ml 260 130 @ 75 mls/hr IV .[id number] [facility] Rx#:[id number] Magnesium Sulfate-D5w Pmx 100 1 gm In Dextrose/Water 1 100ml.bag @ 100 mls/hr IVPB ONCE ONE Rx#: [id number] Piperacillin-Tazobactam 3 75 .375 gm In Sodium Chloride 0.9% 100 ml @ 200 mls/hr IVPB ONCE STA Rx#:[id number] Piperacillin-Tazobactam 3 50 .375 gm In Sodium Chloride 0.9% 100 ml @ 25 mls/hr IVPB Q8HR [facility] Rx# :[id number] fentaNYL (PF). 1,000 mcg 138.971 117.048 In Sodium Chloride 0.9% 80 ml @ 0.5 MCG/KG/HR 10. 773 mls/hr IV .Q9H17M [facility] Rx#:[id number] propofoL 1,000 mg In 190.708 352.948 Empty Bag 1 bag @ 15 MCG/ KG/MIN 19.391 mls/hr IV . Q5H10M [facility] Rx#:[id number] Tube Feeding 250 Other 80 Output: Gastric Drainage 300 Urine 475 662 Other: Voiding Method Indwelling Catheter Indwelling Catheter ABP, PAP, CO, CI - Last Documented Arterial Blood Pressure 110/63 - Labs CBC & Chem 7: 08/06/24 05:07 08/06/24 12:45 Labs: Abnormal Lab Results - Last 24 Hours (Table) 08/05/24 08/05/24 08/06/24 Range/Units 20:09 23:28 05:03 RBC (4.30-5.90) m/uL Hgb (13.0-17.5) gm/dL Hct (39.0-53.0) % MCH (25.0-35.0) pg MCHC (31.0-37.0) g/dL RDW (11.5-15.5) % Lymphocytes # (1.0-4.8) k/uL ABG pH (7.35-7.45) ABG pO2 (83-108) mmHg ABG HCO3 (21-25) mmol/L ABG Total CO2 (19-24) mmol/L ABG O2 Saturation (94-97) % Chloride 94 L (98-107) mmol/L Carbon Dioxide 37 H (22-30) mmol/L BUN 23 H (9-20) mg/dL Glucose 246 H (74-99) mg/dL POC Glucose (mg/dL) 287 H 293 H (70-110) mg/dL Hemoglobin A1c (<=6.0) % Total Protein 5.9 L (6.3-8.2) g/dL Albumin 2.8 L (3.5-5.0) g/dL 08/06/24 08/06/24 08/06/24 Range/Units 05:07 05:07 05:45 RBC 3.50 L (4.30-5.90) m/uL Hgb 8.3 L D (13.0-17.5) gm/dL Hct 28.4 L (39.0-53.0) % MCH 23.8 L (25.0-35.0) pg MCHC 29.2 L (31.0-37.0) g/dL RDW 16.3 H (11.5-15.5) % Lymphocytes # 0.7 L (1.0-4.8) k/uL ABG pH (7.35-7.45) ABG pO2 (83-108) mmHg ABG HCO3 (21-25) mmol/L ABG Total CO2 (19-24) mmol/L ABG O2 Saturation (94-97) % Chloride (98-107) mmol/L Carbon Dioxide (22-30) mmol/L BUN (9-20) mg/dL Glucose (74-99) mg/dL POC Glucose (mg/dL) 280 H (70-110) mg/dL Hemoglobin A1c 7.3 H (<=6.0) % Total Protein (6.3-8.2) g/dL Albumin (3.5-5.0) g/dL 08/06/24 08/06/24 08/06/24 Range/Units 06:15 11:40 17:15 RBC (4.30-5.90) m/uL Hgb (13.0-17.5) gm/dL Hct (39.0-53.0) % MCH (25.0-35.0) pg MCHC (31.0-37.0) g/dL RDW (11.5-15.5) % Lymphocytes # (1.0-4.8) k/uL ABG pH 7.58 H* (7.35-7.45) ABG pO2 58 L* (83-108) mmHg ABG HCO3 40 H* (21-25) mmol/L ABG Total CO2 42 H (19-24) mmol/L ABG O2 Saturation 93.9 L (94-97) % Chloride (98-107) mmol/L Carbon Dioxide (22-30) mmol/L BUN (9-20) mg/dL Glucose (74-99) mg/dL POC Glucose (mg/dL) 256 H 236 H (70-110) mg/dL Hemoglobin A1c (<=6.0) % Total Protein (6.3-8.2) g/dL Albumin (3.5-5.0) g/dL Microbiology - Last 24 Hours (Table) 08/05/24 08:28 Blood Culture - Preliminary Blood 08/05/24 07:40 Gram Stain - Preliminary Sputum Sputum Culture - Preliminary Assessment and Plan Time with Patient: Less than 30
[2024-08-06] MEDS: APIXABAN 5 MG TAB PO SCH (20:41)
[2024-08-06] MEDS: CHLORHEXIDINE GLUCONATE 15 ML CUP MUCOUS MEM SCH (20:41)
[2024-08-06] MEDS ORDERED: HEPARIN SODIUM,PORCINE 5,000 UNIT/ML 1 ML VIAL SQ SCH (21:00)
[2024-08-06 21:14] LABS: Glucose,Whole Blood 229 mg/dL (70-110)
[2024-08-06] MEDS: INSULIN DETEMIR (LEVEMIR) 100 UNIT/ML SYR SQ SCH (21:21)
[2024-08-06 23:59] LABS: Glucose,Whole Blood 214 mg/dL (70-110)
[2024-08-07 04:57] LABS: Anisocytosis Slight; Basophils % (A) 0 %; Eosinophils % (A) 1 %; HCT 31.6 % (39.0-53.0); HGB 9.3 gm/dL (13.0-17.5); Hypochromasia Marked; Lymphocytes # (A) 0.6 k/uL (1.0-4.8); Lymphocytes % (A) 7 %; MCH 23.6 pg (25.0-35.0); MCHC 29.4 g/dL (31.0-37.0); MCV 80.3 fL (80.0-100.0); Mean Platelet Volume 8.6; Monocytes # (A) 0.3 k/uL (0-1.0); Monocytes % (A) 4 %; Neutrophils # (A) 7.5 k/uL (1.3-7.7); Neutrophils % (A) 88 %; Platelet Count 354 k/uL (150-450); RBC 3.94 m/uL (4.30-5.90); RDW 16.5 % (11.5-15.5); WBC 8.5 k/uL (3.8-10.6)
[2024-08-07 05:17] LABS: African American GFR (CKD) >90 (>60 ml/min/1.73 sqM); Anion Gap 4 mmol/L; Blood Urea Nitrogen 23 mg/dL (9-20); Calcium 8.4 mg/dL (8.4-10.2); Carbon Dioxide 38 mmol/L (22-30); Chloride 95 mmol/L (98-107); Glucose 178 mg/dL (74-99); Magnesium 1.9 mg/dL (1.6-2.3); Non-African American GFR(CKD) >90 (>60 ml/min/1.73 sqM); Potassium 3.6 mmol/L (3.5-5.1); Sodium 137 mmol/L (137-145)
[2024-08-07 05:19] LABS: ABG Base Excess 11.1 mmol/L; ABG HCO3 39 mmol/L (21-25); ABG PCO2 68 mmHg (35-45); ABG PH 7.36 (7.35-7.45); ABG PO2 98 mmHg (83-108); ABG TCO2 41 mmol/L (19-24); Allen Test Performed? Yes
[2024-08-07 06:21] LABS: Glucose,Whole Blood 162 mg/dL (70-110)
--- NOTE | 2024-08-07 06:45 | XR ---
EXAMINATION TYPE: XR chest 1V portable DATE OF EXAM: 08/07/2024 CLINICAL HISTORY: Difficulty breathing progress study. TECHNIQUE: Single AP portable semiupright view of the chest is obtained. COMPARISON: Chest x-ray from one day earlier and older studies FINDINGS: Stable endotracheal and orogastric tubes. Persistent low lung volumes and bilateral central increased opacities. Persistent mild cardiomegaly. Old healed fractures of the posterior-lateral left fifth through seventh ribs is redemonstrated. IMPRESSION: Findings suggest continued CHF exacerbation/fluid overload state. Correlate clinically. [facility], , 08/07/2024 6:43 AM
--- NOTE | 2024-08-07 06:45 | XR ---
EXAMINATION TYPE: XR chest 1V portable DATE OF EXAM: 08/07/2024 CLINICAL HISTORY: Tube exchange. TECHNIQUE: Single AP portable semiupright view of the chest is obtained. COMPARISON: Chest x-ray from earlier today FINDINGS: The new endotracheal tube terminates below aortic knob at level of damian and should be re tracted 4 to 5 cm to be in more ideal position. Stable orogastric tube. Persistent low lung volumes with bilateral central increased opacities extending into the left lower lung. Persistent mild cardiomegaly. Old healed fractures of the posterior-lateral left fifth through seventh ribs is redemonstrated. IMPRESSION: 1. New endotracheal tube is low in position and should be retracted 4 to 5 cm. 2. Persistent mild cardiomegaly and central vascular congestion with small left pleural effusion and left lower lung acute infiltrate and/or atelectasis. [facility], , 08/07/2024 6:42 AM
[2024-08-07] MEDS: DILTIAZEM 125 MG in SODIUM CHLORIDE 0.9% 100 ML IV SCH (06:47)
[2024-08-07] MEDS: POTASSIUM CHLORIDE 20 MEQ in WATER FOR INJECTION 1 100ML.BAG IVPB SCH (07:00)
[2024-08-07] MEDS: MAGNESIUM SULFATE-D5W PMX 1 GM in DEXTROSE/WATER 1 100ML.BAG IVPB ONE (07:00)
[2024-08-07] MEDS: ACETAMINOPHEN TAB 325 MG TAB PO PRN (09:36)
[2024-08-07] MEDS: CHOLECALCIFEROL 25 MCG (1000 IU) TABLET PO SCH (09:36)
[2024-08-07 11:21] LABS: Glucose,Whole Blood 154 mg/dL (70-110)
--- NOTE | 2024-08-07 11:44 | P.PN ---
Subjective Progress Note Date: 08/07/24 Principal diagnosis: Respiratory failure. Pulmonary consult dated August 05, 2024. 63-year-old male who is brought into the emerged, on August 05, by EMS. The patient apparently was having respiratory distress, and became unresponsive. The patient has a history of morbid obesity, COPD, atrial fibrillation, CVA, hypertension, and hyperlipidemia. The patient was found by the staff, at the group home, the patient was unresponsive, and not breathing properly. This was about 5:30 AM. Saturations when EMS arrived 463%. He was hypotensive, and minimally responsive. In the emergency department, he was intubated by Dr. Hansen. Today we see him, in ER trauma to room. He is on the mechanical ventilator. Settings include volume assist-control, rate 20, tidal line 450, FiO2 100%, PEEP of 5. The patient is on propofol at 15 mcg/kg/min, and IV Zosyn. The patient was residing at the [facility]. The patient's brain CT was negative. The patient did have some possible right upper lobe infiltrates. Laboratory data includes a white count 12.5, hemoglobin 10, h ematocrit 37, and a normal platelet count. Most recent blood gases show pO2 of 74, pCO2 of 69, pH of 7.38. Sodium 141, potassium 5.8, chlorides 93, CO2 38, BUN 20, creatinine 0.7. The patient's glucose was 299. Lactic acid was 3.2. The rest of the comprehensive metabolic profile was relatively normal. N- terminal proBNP was 3320. He did apparently test positive for coronavirus. Chest x-ray shows a developing right upper lobe infiltrate. The patient did have cardiomegaly, and some infiltrates, in the left lower lobe as well. Progress note dated August 06, 2024. 63-year-old morbidly obese man seen yesterday in the emergency department. The patient remains on mechanical ventilator. He is on volume assist-control, rate 20, tidal volume 500, FiO2 100%, and PEEP of 5, to be increased to PEEP of 10. Blood gases, on a PEEP of 5, show pO2 of 58, pCO2 of 43, pH is 7.58. He is on propofol at 20 mcg/kg/min, fentanyl 0.5 mcg/kg/h, lactated Ringer's at 130 cc an hour, and Zosyn. Tube feedings will be started today. His procalcitonin level was 0.22. He was COVID-positive. His lactated Ringer's IV will be reduced down to 75 cc an hour. Current labs include a white count 7.5, hemoglobin 8.3, hematocrit 28.4, and a platelet count of 338,000. Sodium 137, potassium 3.9, chlorides 94, CO2 37, BUN 23, and creatinine 0.66. Albumin is 2.8. Chest x-ray suggest fluid overload. Progress note dated August 07, 2024. 63-year-old morbidly obese man, who was seen in consultation, 2 days ago in the emergency department. The patient was admitted with respiratory failure, and required intubation by the ER physician in the emergency department. The patient remains on volume assist-control, rate 20, tidal via 500, FiO2 100%, PEEP of 10. Blood gases show pO2 of 98, pCO2 of 68, pH is 7.36. The patient is currently on propofol at 50 mcg/kg/min, fentanyl at 1 mcg/kg/h, LR at 75 cc an hour, and Cardizem at 7.5 mg an hour. This morning, the patient developed atrial fibrillation with RVR, and also required a endotracheal tube change. Tube feedings are currently off but will be restarted. He is on vital high- protein. Goal is 55 cc an hour. The patient did test positive for coronavirus infection. White count 8.5, hemoglobin 9.3, hematocrit 31.6, platelet count normal. Sodium 137, potassium 3.6, chloride 95, CO2 38, BUN 23, creatinine 0.74. Glucose is 154. Calcium 8.4, magnesium 1.9. Thus far, cultures are negative. Chest x-ray, from this morning, shows persistent low lung volumes, and cardiomegaly. Objective - Vital Signs Vital signs: Vital Signs Temp 100.8 F H 08/07/24 05:00 Pulse 122 H 08/07/24 07:00 Resp 22 08/07/24 07:00 BP 129/79 08/06/24 10:00 Pulse Ox 96 08/07/24 07:00 FiO2 80 08/07/24 10:11 Intake & Output 08/06/24 08/07/24 08/07/24 18:59 06:59 18:59 Intake Total 1850.302 4085.211 231.095 Output Total 962 500 60 Balance 5272.505 6987.211 171.095 Weight 215 kg 215.4 kg Intake: IV 951 891 81 Lactated Ringers 1,000 ml 900 825 75 @ 75 mls/hr IV .[id number] [facility] Rx#:[id number] Pressure Bag 51 66 6 Intake, IV Titration 699.996 611.211 150.095 Amount Lactated Ringers 1,000 ml 130 @ 75 mls/hr IV .[id number] [facility] Rx#:[id number] Magnesium Sulfate-D5w Pmx 100 1 gm In Dextrose/Water 1 100ml.bag @ 100 mls/hr IVPB ONCE ONE Rx#: [id number] fentaNYL (PF). 1,000 mcg 117.048 287.808 100.000 In Sodium Chloride 0.9% 80 ml @ 0.5 MCG/KG/HR 10. 773 mls/hr IV .Q9H17M [facility] Rx#:[id number] propofoL 1,000 mg In 352.948 85.322 Empty Bag 1 bag @ 15 MCG/ KG/MIN 19.391 mls/hr IV . Q5H10M [facility] Rx#:[id number] propofoL 1,000 mg In 238.081 50.095 Empty Bag 1 bag @ 20 MCG/ KG/MIN 25.855 mls/hr IV . Q3H53M [facility] Rx#:[id number] Tube Feeding 250 260 0 Other 80 60 0 Output: Gastric Drainage 300 Urine 662 500 60 Other: Voiding Method Indwelling Catheter Indwelling Catheter # Bowel Movements 0 ABP, PAP, CO, CI - Last Documented Arterial Blood Pressure 90/50 - Exam No acute distress, the patient is sedated, and orally intubated. HEENT examination is grossly unremarkable. Mucous membranes are moist. No oral lesions. Neck supple. Full range of motion. No adenopathy thyromegaly or neck vein distention. Cardiovascular examination reveals regular rhythm rate. S1-S2 normal. No S3 or S4. No discernible murmur noted. Heart sounds are very distant. Lungs reveal mostly clear breath sounds. Scattered rhonchi and crackles are noted. No wheezes. Breath sounds equal bilaterally. Abdomen is soft, but very obese. No bowel sounds. Extremities are intact. No clubbing or edema. The patient does have some mild lower extremity edema. Skin is without rash or lesion. Neurologic examination cannot be evaluated at this time. - Labs CBC & Chem 7: 08/07/24 04:40 08/07/24 04:40 Labs: Abnormal Lab Results - Last 24 Hours (Table) 08/06/24 08/06/24 08/06/24 Range/Units 11:40 17:15 21:13 RBC (4.30-5.90) m/uL Hgb (13.0-17.5) gm/dL Hct (39.0-53.0) % MCH (25.0-35.0) pg MCHC (31.0-37.0) g/dL RDW (11.5-15.5) % Lymphocytes # (1.0-4.8) k/uL ABG pCO2 (35-45) mmHg ABG HCO3 (21-25) mmol/L ABG Total CO2 (19-24) mmol/L Hemoglobin (13.0-17.5) gm/dL Chloride (98-107) mmol/L Carbon Dioxide (22-30) mmol/L BUN (9-20) mg/dL Glucose (74-99) mg/dL POC Glucose (mg/dL) 256 H 236 H 229 H (70-110) mg/dL 08/06/24 08/07/24 08/07/24 Range/Units 23:58 04:40 04:40 RBC 3.94 L (4.30-5.90) m/uL Hgb 9.3 L (13.0-17.5) gm/dL Hct 31.6 L (39.0-53.0) % MCH 23.6 L (25.0-35.0) pg MCHC 29.4 L (31.0-37.0) g/dL RDW 16.5 H (11.5-15.5) % Lymphocytes # 0.6 L (1.0-4.8) k/uL ABG pCO2 (35-45) mmHg ABG HCO3 (21-25) mmol/L ABG Total CO2 (19-24) mmol/L Hemoglobin (13.0-17.5) gm/dL Chloride 95 L (98-107) mmol/L Carbon Dioxide 38 H (22-30) mmol/L BUN 23 H (9-20) mg/dL Glucose 178 H (74-99) mg/dL POC Glucose (mg/dL) 214 H (70-110) mg/dL 08/07/24 08/07/24 08/07/24 Range/Units 05:18 06:19 11:19 RBC (4.30-5.90) m/uL Hgb (13.0-17.5) gm/dL Hct (39.0-53.0) % MCH (25.0-35.0) pg MCHC (31.0-37.0) g/dL RDW (11.5-15.5) % Lymphocytes # (1.0-4.8) k/uL ABG pCO2 68 H (35-45) mmHg ABG HCO3 39 H (21-25) mmol/L ABG Total CO2 41 H (19-24) mmol/L Hemoglobin 10.0 L (13.0-17.5) gm/dL Chloride (98-107) mmol/L Carbon Dioxide (22-30) mmol/L BUN (9-20) mg/dL Glucose (74-99) mg/dL POC Glucose (mg/dL) 162 H 154 H (70-110) mg/dL Microbiology - Last 24 Hours (Table) 08/05/24 07:40 Gram Stain - Final Sputum Sputum Culture - Final 08/05/24 08:28 Blood Culture - Preliminary Blood Assessment and Plan Assessment: Acute respiratory failure, possibly secondary to aspiration, right upper lobe. S/P intubation/mechanical ventilation, August 05, 2024. Coronavirus infection. History of atrial fibrillation. History of CVA. History of diabetes mellitus. History of gastroesophageal reflux disease. History of hyperlipidemia. History of hypertension. History of obstructive sleep apnea syndrome. Morbid obesity. Plan: Plan dated August 05, 2024. The patient is seen in the emergency department. The patient was on volume assist-control, rate 20, tidal volume 450, 100% and a PEEP of 5. The patient is getting propofol, for sedation, Zosyn for antibiotic, and the rest of his med ications. CAT scan of the brain was negative. The patient has a history of atrial fibrillation, CVA, diabetes, GERD, hyperlipidemia, hypertension, sleep apnea, and morbid obesity. Labs, x-rays, and all medications are reviewed. We will continue to follow the patient, make recommendations. Prognosis is guarded. Plan dated August 06, 2024. The patient is seen in the intensive care unit, room 260. The patient did test positive for coronavirus. PEEP was increased from 5, up to 10 cm of water. The patient continues on propofol and fentanyl. We will start tube feedings. Procalcitonin level is normal. Antibiotic is discontinued. Labs, x-rays, and medications are reviewed. We will continue to follow the patient, make recommendations along the way. Prognosis is poor. We were able to place a right radial art line, and a right femoral vein triple-lumen catheter today, with much difficulty. Plan dated August 07, 2024. The patient is seen today in room 260. I was called by the nurse at 5:00 in the morning, that there was a leak around the endotracheal tube. [employer] was called, a nd the tube was changed by the [employer]. In addition, that same nurse called to tell me that the patient developed atrial fibrillation with RVR. I gave the patient Cardizem 10 mg as a bolus, and started him on a drip at 7.5 mg an hour. The patient continues on propofol, and fentanyl, as well as Cardizem at 7.5 mg an hour. He is getting lactated Ringer's at 75 cc an hour. Tube feedings were placed on hold, when the patient had issues this morning, but will be restarted. The patient did test positive for coronavirus in the emergency department. Labs, x-rays, and all medications are reviewed. Overall prognosis remains guarded. We will continue to follow make recommendations where appropriate. Central line and arterial lines were placed yesterday. Time with Patient: Greater than 30
--- NOTE | 2024-08-07 13:02 | P.CRDCN ---
History of Present Illness Consult date: 08/07/24 History of present illness: History of Present Illness: The patient is a 63-year-old male with known history of morbid obesity, permanent atrial fibrillation, prior history of CVA, hypertension and hyperlipidemia who presented from the [facility] with progressive dyspnea and decreased mentation, he was found to be unresponsive and was intubated. He was diagnosed with COVID infection. He remains intubated. Cardiology consultation was requested because of the atrial fibrillation. The patient has a known permanent atrial fibrillation, anticoagulated. His ventricular rate was stable on presentation with episode of slow ventricular response. Yesterday he became tachycardic and was started on IV Cardizem. He is stable at this time. He has underwent cardiac catheterization in 2012 and was found to have mild to moderate obstructive disease. His left ventricular systolic function was preserved in 2022. He is on no vasopressors and his urinary output has been stable. His troponin was normal on admission and his NT proBNP was 3320. He has a history of hypertension and diabetes. Medications: As an outpatient he is on Eliquis 5 mg twice a day, losartan 12.5 mg daily, metoprolol tartrate 12.5 mg twice a day, insulin, Lasix 40 mg daily, MiraLAX, Flomax, gabapentin Review of Systems: Could not be obtained the patient is intubated and sedated Physical Examination: 63-year-old male, intubated and sedated, morbidly obese,Blood pressure 110/70, Heart rate 70 Head: Normocephalic. Eyes: Sclerae nonicteric. Neck: Good carotid upstroke, no bruit, . Lungs: Clear to auscultation anteriorly. Heart: Irregular rate and rhythm, S1-S2, no S3, no rub. No murmur. Abdomen: Soft obese, positive bowel sounds no organomegaly. Extremities: +2 edema. Labs: Hemoglobin 9.3, potassium 3.6, BUN 23, creatinine 0.74. EKG: EKG with atrial fibrillation and nonspecific ST-T wave changes Impression: 1. Respiratory failure with COVID infection, possible aspiration pneumonia 2. Permanent atrial fibrillation 3. History of CVA 4. History of hypertension 5. History of diabetes 6. Morbid obesity 7. Obstructive sleep apnea Plan: 1. Continue anticoagulation and IV Cardizem for now 2. Obtain an echocardiogram with Doppler 3. Follow ventricular response and depending on the blood pressure adjust the dose of the beta-marino 4. Depending on his progress further recommendations will be made 5. Thank you for this consult we will follow with you Past Medical History Past Medical History: Atrial Fibrillation, Diabetes Mellitus, GERD/Reflux, Hyperlipidemia, Hypertension, Sleep Apnea/CPAP/BIPAP Additional Past Medical History / Comment(s): diabetic neuropathy, "leaky valve", frequent foot & ankle swelling, USES C-PAP, shortness of breath, unable to walk distances. rhabdo History of Any Multi-Drug Resistant Organisms: CRE, ESBL, Other MDRO Date of last positivie culture/infection: 07/03/24 - [employer]-CRE; 07/28/23-ESBL MDRO Source:: [id number]; ESBL-Right Foot Past Surgical History: Bariatric Surgery, Hernia Repair Additional Past Surgical History / Comment(s): GASTRIC SLEEVE. EGD Past Anesthesia/Blood Transfusion Reactions: No Reported Reaction, Motion Sickness Past Psychological History: Anxiety Smoking Status: Former smoker Past Alcohol Use History: None Reported Additional Past Alcohol Use History / Comment(s): QUIT SMOKING 2004 Past Drug Use History: None Reported Additional Drug Use History / Comment(s): positive for cocaine and benzos on tox screen 07/26/23. - Past Family History Mother Family Medical History: Cancer Additional Family Medical History / Comment(s): Father Family Medical History: Hypertension Additional Family Medical History / Comment(s): Brother(s) Family Medical History: Asthma, COPD, Hypertension Medications and Allergies Home Medications Medication Instructions Recorded Confirmed Type Omeprazole [PriLOSEC] 20 mg PO DAILY 06/27/20 08/05/24 History Cholecalciferol [Vitamin D3 (25 25 mcg PO DAILY 05/25/23 08/05/24 History Mcg = 1000 Iu)] Insulin Lispro [humaLOG Kwikpen] See Protocol SQ ACHS 05/25/23 08/05/24 History Metoprolol Tartrate [Lopressor] 12.5 mg PO BID 05/25/23 08/05/24 History polyethylene glycoL 3350 [Miralax] 17 gm PO DAILY PRN 05/25/23 08/05/24 History Furosemide [Lasix] 40 mg PO DAILY 07/25/23 08/05/24 History Naloxone HCl [Narcan] 4 mg NASAL ONCE PRN 07/25/23 08/05/24 History Gabapentin 800 mg PO Q8H 08/02/23 08/05/24 History Albuterol Nebulized [Ventolin 2.5 mg INHALATION RT-Q6H PRN 07/03/24 08/05/24 History Nebulized] Apixaban [Eliquis] 5 mg PO BID 07/03/24 08/05/24 History Dextrose Chew [Glucose Chew Tab] 12 gm PO DAILY PRN 07/03/24 08/05/24 History Dextrose Gel [Glutose 15 Gel] 15 gm PO DAILY PRN 07/03/24 08/05/24 History Folic Acid 0.8 mg PO HS 07/03/24 08/05/24 History Insulin Glargine,Hum.rec.anlog 20 units SQ DAILY 07/03/24 08/05/24 History [Lantus Solostar Pen] Lactulose 20 gm PO DAILY 07/03/24 08/05/24 History Losartan [Cozaar] 12.5 mg PO DAILY 07/03/24 08/05/24 History Magnesium Oxide [Mag-Ox] 400 mg PO HS 07/03/24 08/05/24 History Naloxone 0.4mg/Ml Injection 0.4 mg IV ONCE PRN 07/03/24 08/05/24 History Tamsulosin [Flomax] 0.4 mg PO DAILY 07/03/24 08/05/24 History Acetaminophen [Tylenol 8 Hour] 650 mg PO Q6H PRN 08/05/24 08/05/24 History Ciprofloxacin HCl [Cipro] 500 mg PO Q12HR 08/05/24 08/05/24 History HYDROcodone/APAP 10-325MG [[place] 1 tab PO Q6HR PRN 08/05/24 08/05/24 History 10-325] Ipratropium-Albuterol Nebulize 3 ml INHALATION RT-Q4H PRN 08/05/24 08/05/24 History [Duoneb 0.5 mg-3 mg/3 ml Soln] L.acidoph,Paracasei, B.lactis 1 cap PO DAILY 08/05/24 08/05/24 History [Probiotic] Allergies Allergy/AdvReac Type Severity Reaction Status Date / Time latex Allergy Rash/Hives Verified 08/05/24 09:11 Physical Exam Vitals: Vital Signs Temp Pulse Resp Pulse Ox FiO2 08/07/24 10:11 80 08/07/24 08:31 100 08/07/24 07:00 122 H 22 96 100 08/07/24 06:00 174 H 20 98 100 08/07/24 05:00 100.8 F H 105 H 21 99 100 08/07/24 04:51 100 08/07/24 04:00 99.9 F H 72 22 99 100 08/07/24 03:00 55 L 20 100 100 08/07/24 02:00 55 L 20 99 100 08/07/24 01:00 66 20 98 100 08/07/24 00:25 59 L 20 98 100 08/07/24 00:13 100 08/07/24 00:00 99.1 F 61 20 99 100 08/06/24 23:00 58 L 20 99 100 08/06/24 22:00 60 20 97 100 08/06/24 21:00 70 20 94 L 100 08/06/24 20:35 100 08/06/24 20:30 67 16 96 100 08/06/24 20:00 99.9 F H 59 L 20 96 100 08/06/24 19:30 58 L 20 97 100 08/06/24 19:00 53 L 20 96 08/06/24 18:30 46 L 20 97 08/06/24 18:00 57 L 20 98 08/06/24 17:30 49 L 20 98 08/06/24 17:00 49 L 20 99 08/06/24 16:30 44 L 20 99 08/06/24 16:08 100 08/06/24 16:00 96.6 F L 41 L 20 99 100 08/06/24 15:38 100 08/06/24 15:30 47 L 20 97 08/06/24 15:00 41 L 20 99 08/06/24 14:30 39 L 20 98 08/06/24 14:00 47 L 20 98 08/06/24 13:30 49 L 20 98 08/06/24 13:00 49 L 20 100 Intake and Output 08/06/24 08/07/24 08/07/24 22:59 06:59 14:59 Intake Total 9411.483 2170.523 231.095 Output Total 410 345 60 Balance 936.558 935.523 171.095 Intake: IV 648 648 81 Lactated Ringers 1,000 ml 600 600 75 @ 75 mls/hr IV .[id number] [facility] Rx#:[id number] Pressure Bag 48 48 6 Intake, IV Titration 438.558 432.523 150.095 Amount fentaNYL (PF). 1,000 mcg 193.366 194.442 100.000 In Sodium Chloride 0.9% 80 ml @ 0.5 MCG/KG/HR 10. 773 mls/hr IV .Q9H17M [facility] Rx#:[id number] propofoL 1,000 mg In 245.192 Empty Bag 1 bag @ 15 MCG/ KG/MIN 19.391 mls/hr IV . Q5H10M [facility] Rx#:[id number] propofoL 1,000 mg In 238.081 50.095 Empty Bag 1 bag @ 20 MCG/ KG/MIN 25.855 mls/hr IV . Q3H53M [facility] Rx#:[id number] Tube Feeding 200 170 0 Other 60 30 0 Output: Urine 410 345 60 Other: Voiding Method Indwelling Catheter Indwelling Catheter # Bowel Movements 0 0 Weight 215.4 kg ABP, PAP, CO, CI - Last 8 Hours Arterial Blood Pressure 90/50 Arterial Blood Pressure 168/70 Arterial Blood Pressure 140/85 Results 08/07/24 04:40 08/07/24 04:40 CBC 08/07/24 Range/Units 04:40 WBC 8.5 (3.8-10.6) k/uL RBC 3.94 L (4.30-5.90) m/uL Hgb 9.3 L (13.0-17.5) gm/dL Hct 31.6 L (39.0-53.0) % Plt Count 354 (150-450) k/uL Comprehensive Metabolic Panel 08/06/24 08/07/24 Range/Units 12:45 04:40 Sodium 137 (137-145) mmol/L Potassium 3.8 3.6 (3.5-5.1) mmol/L Chloride 95 L (98-107) mmol/L Carbon Dioxide 38 H (22-30) mmol/L BUN 23 H (9-20) mg/dL Creatinine 0.74 (0.66-1.25) mg/dL Glucose 178 H (74-99) mg/dL Calcium 8.4 (8.4-10.2) mg/dL Current Medications Generic Name Dose Route Start Last Admin Trade Name Freq PRN Reason Stop Dose Admin Acetaminophen 650 mg 08/07/24 09:33 08/07/24 09:36 Acetaminophen Tab 325 Mg Tab PO 650 mg Q6HR PRN Administration Fever and/ or Pain Albuterol Sulfate 2.5 mg 08/06/24 19:31 Albuterol Nebulized 2.5 Mg/3 Ml INHALATION RT-Q6H PRN WHEEZING OR SHORTNESS BREATH Apixaban 5 mg 08/06/24 21:00 08/07/24 09:36 Apixaban 5 Mg Tab PO 5 mg BID [facility] Administration Protocol Chlorhexidine Gluconate 15 ml 08/06/24 21:00 08/07/24 08:01 Chlorhexidine Gluconate 15 Ml Cup MUCOUS MEM 15 ml BID [facility] Administration Cholecalciferol 25 mcg 08/07/24 09:00 08/07/24 09:36 Cholecalciferol 25 Mcg (1000 Iu) Tablet PO 25 mcg DAILY [facility] Administration Dextrose/Water 25 ml 08/05/24 23:22 Dextrose 50% Syringe 50 Ml IVP PER PROTOCOL PRN Hypoglycemia Protocol Dextrose/Water 50 ml 08/05/24 23:22 Dextrose 50% Syringe 50 Ml IVP PER PROTOCOL PRN Hypoglycemia Protocol Fentanyl Citrate 50 mcg 08/05/24 08:13 Fentanyl (Pf) 50 Mcg/Ml 2 Ml Amp IVP Q2HR PRN Severe Pain (Scale 7 to 10) Fentanyl Citrate 1,000 mcg/ 100 mls @ 10.773 mls/hr 08/05/24 08:30 08/07/24 10:21 Sodium Chloride IV 1 mcg/kg/hr .Q9H17M [facility] 21.546 mls/hr Administration Protocol 0.5 MCG/KG/HR Lactated Ringer's 1,000 mls @ 75 mls/hr 08/05/24 09:15 08/07/24 03:31 Lactated Ringers IV 75 mls/hr .[id number] [facility] Administration Propofol 1,000 mg/ IV Solution 100 mls @ 25.855 mls/hr 08/06/24 21:31 08/07/24 08:00 IV 15 mcg/kg/min .Q3H53M [facility] 19.391 mls/hr Titration Protocol 20 MCG/KG/MIN Diltiazem HCl 125 mg/ Sodium 125 mls @ 7.5 mls/hr 08/07/24 06:15 08/07/24 06:47 Chloride IV 7.5 mg/hr .[id number] [facility] 7.5 mls/hr Administration 7.5 MG/HR Insulin Aspart 0 unit 08/06/24 00:00 08/07/24 11:34 Insulin Aspart (Novolog) 100 Unit/Ml Vial SQ 1 unit Q6HR [facility] Administration Protocol Insulin Detemir 15 unit 08/06/24 21:00 08/06/24 21:21 Insulin Detemir (Levemir) 100 Unit/Ml Syr SQ 15 unit HS [facility] Administration Miscellaneous Information 1 each 08/05/24 09:13 Phosphorus Replacement Protoco 1 Each Misc MISCELLANE DAILY PRN Per Protocol Protocol Miscellaneous Information 1 each 08/05/24 09:13 Magnesium Replacement Protocol 1 Each Misc MISCELLANE DAILY PRN Per Protocol Protocol Miscellaneous Information 1 each 08/05/24 09:13 Potassium Replacement Protocol 1 Each Misc MISCELLANE DAILY PRN Per Protocol Miscellaneous Information 1 each 08/05/24 09:16 Pneumonia Protocol Utilized 1 Each Misc PO ONCE PRN Per Protocol Naloxone HCl 0.2 mg 08/05/24 09:13 Naloxone 0.4 Mg/Ml 1 Ml Vial IV Q2M PRN Opioid Reversal Pantoprazole Sodium 40 mg 08/05/24 09:15 08/07/24 08:01 Pantoprazole 40 Mg/10 Ml Vial IV 40 mg DAILY [facility] Administration Tiotropium [place] 2 puff 08/05/24 08:45 08/07/24 08:30 Tiotropium 2.5 Mcg Inhaler INHALATION Not Given RT-DAILY [facility] Intake and Output 08/06/24 08/07/24 08/07/24 22:59 06:59 14:59 Intake Total 9976.322 2320.523 231.095 Output Total 410 345 60 Balance 936.558 935.523 171.095 Intake: IV 648 648 81 Lactated Ringers 1,000 ml 600 600 75 @ 75 mls/hr IV .[id number] [facility] Rx#:[id number] Pressure Bag 48 48 6 Intake, IV Titration 438.558 432.523 150.095 Amount fentaNYL (PF). 1,000 mcg 193.366 194.442 100.000 In Sodium Chloride 0.9% 80 ml @ 0.5 MCG/KG/HR 10. 773 mls/hr IV .Q9H17M [facility] Rx#:[id number] propofoL 1,000 mg In 245.192 Empty Bag 1 bag @ 15 MCG/ KG/MIN 19.391 mls/hr IV . Q5H10M [facility] Rx#:[id number] propofoL 1,000 mg In 238.081 50.095 Empty Bag 1 bag @ 20 MCG/ KG/MIN 25.855 mls/hr IV . Q3H53M [facility] Rx#:[id number] Tube Feeding 200 170 0 Other 60 30 0 Output: Urine 410 345 60 Other: Voiding Method Indwelling Catheter Indwelling Catheter # Bowel Movements 0 0 Weight 215.4 kg 08/07/24 04:40 08/07/24 04:40
--- NOTE | 2024-08-07 13:22 | P.PN ---
Subjective Progress Note Date: 08/07/24 Patient in the intensive care unit currently intubated and sedated on the mechanical ventilator. Patient's chest x-ray today does reveal worsening CHF. He is significantly edematous. Remains sedated with IV fentanyl and propofol. He continues on IV Zosyn. Patient was started on enteral feedings today. blood sugars are elevated in the 200s. 08/07/2024 Patient was evaluated in follow-up in the medical floor he is currently intubated and sedated on the mechanical ventilator. Patient had gone into atrial fibrillation with rapid ventricular rate overnight requiring IV Cardizem. He has been since transition to oral metoprolol with heart rate better controlled today. He does have a noted history of atrial fibrillation was resumed on his oral Eliquis yesterday. Patient currently has LR running at 75 mL/h he does remain quite edematous mostly in his lower extremities. Patient was noted to have a small amount of yellow bile emesis there has been no residual with his tube feedings and they are continued at a slow rate today of 10 mL/h. He is febrile today temperature of 100.8. An abdominal x-ray was unable to be completed due to patient's body habitus and he is unable to be transported down for x-ray at this time. Unable to complete review of systems as patient is currently intubated and sedated PHYSICAL EXAMINATION: -GENERAL: The patient is intubated and sedated. He is morbidly obese HEENT: Pupils are round and equally reacting to light. EOMI. No scleral icterus. No conjunctival pallor. Normocephalic, atraumatic. No pharyngeal erythema. No thyromegaly. CARDIOVASCULAR: S1 and S2 present. No murmurs, rubs, or gallops. PULMONARY: Chest is clear to auscultation, no wheezing , no crackles. -ABDOMEN: Soft, nontender, nondistended, normoactive bowel sounds. No palpable organomegaly. Kelly catheter in place MUSCULOSKELETAL: No joint swelling or deformity. -EXTREMITIES: No cyanosis, clubbing, significant lower extremity edema bilaterally pitting right lower leg superficial wound with dressing in place changed yesterday NEUROLOGICAL: Gross neurological examination did not reveal any focal deficits. SKIN: No rashes. no petechiae. Assessment and plan Acute hypoxic respiratory failure requiring intubation on admission, currently on mechanical ventilation COVID infection and possible pneumonia Possible acute COPD exacerbation versus obesity hypoventilation syndrome Possible bacterial pneumonia, healthcare associated with right upper lobe and left lower lobe infiltrates Severe sepsis A-fib and RVR, present on admission now with slow ventricular rate dropping into the 30s. Patient went into afib RVR overnight. Right leg wound with recent cultures showing enterococcus faecalis, ESBL and Providencia Rettgeri Diabetes Mellitus type 2 with hyperglycemia Morbid obesity Chronic anemia Lactic acidemia/acidosis GI prophylaxis DVT prophylaxis Full Code Plan Continue with antibiotic Zithromax and Zosyn Continue with IV fluid Ringer lactate decreased to 75 mls/hr. Continue with intubation and mechanical ventilation. Pulmonary/critical care team consult Continue enteral feedings Continue cardiac telemetry if heart rate remains low will consider cardiac cons ultation. Continue hold losartan held and lasix held currently Patient has been resumed on metoprolol, continue IV cardizem Resume eliquis Resume long acting insulin 20 units at HS and continue sliding scale Q6h with further adjustments to be made if patient remains hyperglycemic Repeat blood work in the AM The impression and plan of care has been dictated by Susannah Campbell, Nurse Practitioner as directed. Dr. Jackie MD I have performed a history and physical examination and medical decision making of this patient, discussed the same with the dictator, and agree with the dictators assessment and plan as written, documented as a scribe. Based on total visit time, I have performed more than 50% of this visit. Objective - Vital Signs Vital signs: Vital Signs Temp 100.8 F H 08/07/24 05:00 Pulse 122 H 08/07/24 07:00 Resp 22 08/07/24 07:00 BP 129/79 08/06/24 10:00 Pulse Ox 96 08/07/24 07:00 FiO2 100 08/07/24 08:31 Intake & Output 08/06/24 08/07/24 08/07/24 18:59 06:59 18:59 Intake Total 6724.942 8611.211 131.095 Output Total 962 500 60 Balance 4708.621 1866.211 71.095 Weight 215 kg 215.4 kg Intake: IV 951 891 81 Lactated Ringers 1,000 ml 900 825 75 @ 75 mls/hr IV .[id number] [facility] Rx#:[id number] Pressure Bag 51 66 6 Intake, IV Titration 699.996 611.211 50.095 Amount Lactated Ringers 1,000 ml 130 @ 75 mls/hr IV .[id number] [facility] Rx#:[id number] Magnesium Sulfate-D5w Pmx 100 1 gm In Dextrose/Water 1 100ml.bag @ 100 mls/hr IVPB ONCE ONE Rx#: [id number] fentaNYL (PF). 1,000 mcg 117.048 287.808 In Sodium Chloride 0.9% 80 ml @ 0.5 MCG/KG/HR 10. 773 mls/hr IV .Q9H17M [facility] Rx#:[id number] propofoL 1,000 mg In 352.948 85.322 Empty Bag 1 bag @ 15 MCG/ KG/MIN 19.391 mls/hr IV . Q5H10M [facility] Rx#:[id number] propofoL 1,000 mg In 238.081 50.095 Empty Bag 1 bag @ 20 MCG/ KG/MIN 25.855 mls/hr IV . Q3H53M [facility] Rx#:[id number] Tube Feeding 250 260 0 Other 80 60 0 Output: Gastric Drainage 300 Urine 662 500 60 Other: Voiding Method Indwelling Catheter Indwelling Catheter # Bowel Movements 0 ABP, PAP, CO, CI - Last Documented Arterial Blood Pressure 90/50 - Labs CBC & Chem 7: 08/07/24 04:40 08/07/24 04:40 Labs: Abnormal Lab Results - Last 24 Hours (Table) 08/06/24 08/06/24 08/06/24 Range/Units 05:07 11:40 17:15 RBC (4.30-5.90) m/uL Hgb (13.0-17.5) gm/dL Hct (39.0-53.0) % MCH (25.0-35.0) pg MCHC (31.0-37.0) g/dL RDW (11.5-15.5) % Lymphocytes # (1.0-4.8) k/uL ABG pCO2 (35-45) mmHg ABG HCO3 (21-25) mmol/L ABG Total CO2 (19-24) mmol/L Hemoglobin (13.0-17.5) gm/dL Chloride (98-107) mmol/L Carbon Dioxide (22-30) mmol/L BUN (9-20) mg/dL Glucose (74-99) mg/dL POC Glucose (mg/dL) 256 H 236 H (70-110) mg/dL Hemoglobin A1c 7.3 H (<=6.0) % 08/06/24 08/06/24 08/07/24 Range/Units 21:13 23:58 04:40 RBC 3.94 L (4.30-5.90) m/uL Hgb 9.3 L (13.0-17.5) gm/dL Hct 31.6 L (39.0-53.0) % MCH 23.6 L (25.0-35.0) pg MCHC 29.4 L (31.0-37.0) g/dL RDW 16.5 H (11.5-15.5) % Lymphocytes # 0.6 L (1.0-4.8) k/uL ABG pCO2 (35-45) mmHg ABG HCO3 (21-25) mmol/L ABG Total CO2 (19-24) mmol/L Hemoglobin (13.0-17.5) gm/dL Chloride (98-107) mmol/L Carbon Dioxide (22-30) mmol/L BUN (9-20) mg/dL Glucose (74-99) mg/dL POC Glucose (mg/dL) 229 H 214 H (70-110) mg/dL Hemoglobin A1c (<=6.0) % 08/07/24 08/07/24 08/07/24 Range/Units 04:40 05:18 06:19 RBC (4.30-5.90) m/uL Hgb (13.0-17.5) gm/dL Hct (39.0-53.0) % MCH (25.0-35.0) pg MCHC (31.0-37.0) g/dL RDW (11.5-15.5) % Lymphocytes # (1.0-4.8) k/uL ABG pCO2 68 H (35-45) mmHg ABG HCO3 39 H (21-25) mmol/L ABG Total CO2 41 H (19-24) mmol/L Hemoglobin 10.0 L (13.0-17.5) gm/dL Chloride 95 L (98-107) mmol/L Carbon Dioxide 38 H (22-30) mmol/L BUN 23 H (9-20) mg/dL Glucose 178 H (74-99) mg/dL POC Glucose (mg/dL) 162 H (70-110) mg/dL Hemoglobin A1c (<=6.0) % Microbiology - Last 24 Hours (Table) 08/05/24 07:40 Gram Stain - Final Sputum Sputum Culture - Final 08/05/24 08:28 Blood Culture - Preliminary Blood Assessment and Plan Time with Patient: Less than 30
[2024-08-07] MEDS: DILTIAZEM DRIP BOLUS FROM BAG 1 MG SOLN IV ONE (14:09)
[2024-08-07 17:02] LABS: Glucose,Whole Blood 166 mg/dL (70-110)
[2024-08-07] MEDS: POTASSIUM CHLORIDE 10 MEQ in WATER FOR INJECTION 1 100ML.BAG IVPB SCH ×2 (17:19→23:34)
[2024-08-07] MEDS: METOPROLOL TARTRATE 12.5 MG TAB PO SCH (20:09)
[2024-08-07 20:13] LABS: Glucose,Whole Blood 154 mg/dL (70-110)
[2024-08-07] MEDS ORDERED: Potassium Replacement Protocol 1 EACH MISC MISCELLANE PRN (23:08)
[2024-08-07 23:34] LABS: Glucose,Whole Blood 152 mg/dL (70-110)
[2024-08-08] MEDS: IPRATROPIUM-ALBUTEROL 3 ML NEB INHALATION SCH (03:45)
[2024-08-08 04:22] LABS: Glucose,Whole Blood 153 mg/dL (70-110)
[2024-08-08 04:29] LABS: Anisocytosis Slight; Basophils % (A) 0 %; Eosinophils # (A) 0.1 k/uL (0-0.7); Eosinophils % (A) 1 %; HCT 25.6 % (39.0-53.0); Hypochromasia Marked; Lymphocytes # (A) 0.6 k/uL (1.0-4.8); Lymphocytes % (A) 10 %; MCHC 29.1 g/dL (31.0-37.0); Mean Platelet Volume 9.3; Microcytosis Slight; Monocytes # (A) 0.3 k/uL (0-1.0); Monocytes % (A) 4 %; Neutrophils # (A) 4.9 k/uL (1.3-7.7); Neutrophils % (A) 83 %; Platelet Count 268 k/uL (150-450); RBC 3.24 m/uL (4.30-5.90); RDW 16.5 % (11.5-15.5); WBC 5.8 k/uL (3.8-10.6)
[2024-08-08 04:48] LABS: HGB 7.5 gm/dL (13.0-17.5)
[2024-08-08] MEDS: ALBUTEROL HFA INHALER INHALATION SCH (05:02)
[2024-08-08 05:10] LABS: African American GFR (CKD) >90 (>60 ml/min/1.73 sqM); Anion Gap 1 mmol/L; Blood Urea Nitrogen 22 mg/dL (9-20); Calcium 7.9 mg/dL (8.4-10.2); Carbon Dioxide 35 mmol/L (22-30); Chloride 99 mmol/L (98-107); Glucose 139 mg/dL (74-99); Magnesium 1.9 mg/dL (1.6-2.3); Non-African American GFR(CKD) >90 (>60 ml/min/1.73 sqM); Potassium 3.7 mmol/L (3.5-5.1); Sodium 135 mmol/L (137-145)
[2024-08-08] MEDS: LORazepam 2 MG/ML INJ IV STA (05:47)
[2024-08-08 05:54] LABS: ABG Base Excess 11.1 mmol/L; ABG HCO3 36 mmol/L (21-25); ABG Oxygen Saturation 93.7 % (94-97); ABG PCO2 51 mmHg (35-45); ABG PH 7.46 (7.35-7.45); ABG PO2 69 mmHg (83-108); ABG TCO2 38 mmol/L (19-24); Allen Test Performed? Yes
[2024-08-08] MEDS: LORazepam 2 MG/ML INJ IV PRN (06:07)
--- NOTE | 2024-08-08 06:38 | CT ---
EXAM: CT Head Without Intravenous Contrast CLINICAL HISTORY: ITS.REASON CT Reason: No pupillary response TECHNIQUE: Axial computed tomography images of the head/brain without intravenous contrast. CTDI is 49.2 mGy and DLP is 1315.4 mGy-cm. This CT exam was performed using one or more of the following dose reduction techniques: automated exposure control, adjustment of the mA and/or kV according to patient size, and/or use of iterative reconstruction technique. COMPARISON: CT Head dated july 02 2024 FINDINGS: Brain: No acute intracranial abnormality. Consider MRI if there is further concern. Areas of decreased attenuation in the deep cerebral white matter are consistent with small vessel ischemic/degenerative changes. The cerebral and cerebellar sulci are prominent consistent with brain atrophy. No hemorrhage. Ventricles: Unremarkable. No ventriculomegaly. Bones/joints: Paranasal sinus mucosal thickening, most prominent in the left maxillary sinus. Mild maxillary sinus cortical hyperostosis which can be seen with chronic sinus disease. No acute fracture. Soft tissues: Unremarkable. Vasculature: Atherosclerotic disease. Sinuses: Unremarkable as visualized. Mastoid air cells: Unremarkable as visualized. No mastoid effusion. IMPRESSION: 1. No acute intracranial abnormality. Consider MRI if there is further concern. 2. Small vessel ischemic/degenerative changes. 3. Cerebral and cerebellar atrophy.
[2024-08-08] MEDS: levETIRAcetam IV 500 MG/5 ML VIAL IVP ONE (06:40)
[2024-08-08] MEDS: levETIRAcetam IV 1,500 MG in SODIUM CHLORIDE 0.9% 250 ML IVPB ONE (07:03)
[2024-08-08] MEDS: POTASSIUM BICARBONATE/CIT AC 20 MEQ TABLET.EFF NG-TUBE SCH ×2 (07:12→14:10)
[2024-08-08] MEDS: MAGNESIUM SULFATE-D5W PMX 1 GM in DEXTROSE/WATER 1 100ML.BAG IVPB ONE (08:14)
--- NOTE | 2024-08-08 08:14 | XR ---
EXAMINATION TYPE: XR chest 1V portable DATE OF EXAM: 08/08/2024 CLINICAL HISTORY: Difficulty breathing progress study. TECHNIQUE: Single AP portable semiupright view of the chest is obtained. COMPARISON: Chest x-ray from one day earlier and older studies FINDINGS: Stable endotracheal and orogastric tubes. Persistent and slight worsening left greater than right bilateral multifocal opacities. Persistent mi ld cardiomegaly. Old healed fractures of the posterior-lateral left fifth through seventh ribs are re demonstrated. IMPRESSION: Mild cardiomegaly with left greater than right multifocal acute infiltrates and/or edema show slight worsening from one day earlier. [facility], , 08/08/2024 8:12 AM
[2024-08-08] MEDS: POTASSIUM CHLORIDE 10 MEQ in WATER FOR INJECTION 1 100ML.BAG IVPB SCH (08:15)
[2024-08-08] MEDS: DEXAMETHASONE SOD PHOSPHATE 10 MG/ML 1 ML VIAL IVP SCH (08:19)
[2024-08-08] MEDS: PIPERACILLIN-TAZOBACTAM 3.375 GM in SODIUM CHLORIDE 0.9% 100 ML IVPB SCH (08:35)
[2024-08-08] MEDS: NOREPINEPHRINE 8 MG in SODIUM CHLORIDE 0.9% 250 ML IV SCH (08:52)
--- NOTE | 2024-08-08 09:38 | P.PN ---
Subjective Progress Note Date: 08/08/24 On 08/08/2024, the patient is being seen in follow-up in the intensive care unit. This is a morbidly obese 63-year-old male patient who is currently intubated on the mechanical ventilator. Initially presented to us on 08/05/2024 for respiratory distress and the patient became unresponsive. He is known to have morbid obesity, COPD, chronic A-fib, CVA, hypertension hyperlipidemia. He resides in a half-way and the patient was found to be unresponsive and not breathing properly. His pulse ox was also very low and the patient was hypotensive and minimally responsive. He came into the emergency department where he was intubated and placed on the mechanical ventilator. Since admission, the patient was found to be COVID-19 positive. He had a follow-up chest x-ray today that shows significant rotation, ET tube is probably 1 cm above the damian and there is evidence of left lower lobe consolidat ion/effusion. Noted at the time of admission, he had also a right upper lobe consolidation in addition to left lower lobe consolidation. Sputum samples have been negative as collected on 08/05/2024 and blood cultures been also negative. No significant leukocytosis. The patient is currently on no antibiotics. The patient is on propofol which is running at 30 mcg/kg/min, and is also on fentanyl at 1 mcg/kg/h.. The patient is on assist-control mode of mechanical ventilation at rate of 20, tidal volume of 500, FiO2 of 60 % with a PEEP of 10. Blood gases from today shows a pH of 7.46 with a pCO2 of 51 and pO2 of 69 and this was an FiO2 of 60%. The patient is on lactated Ringer at rate of 75 cc an hour. The patient receiving vital high-protein at rate of 55 cc an hour. He remains in atrial fibrillation with rapid ventricular response. He is off Cardizem drip . He is also on metoprolol 12.5 mg twice a day and anticoagulation with Eliquis 5 mg p.o. twice a day. He is on Levemir insulin 15 units at bedtime. Earlier this morning, the patient noted to have episodic generalized tonic-clonic seizure-like activity. The patient was kept on propofol. He was given Ativan 2 mg IV push x 2 and started on Keppra. CAT scan of the brain is to follow. EEG is to follow. Neurology consultation is to follow. The patient is on lactated Ringer at rate of 75 cc an hour. Norepinephrine was also started this morning and is currently running at 0.03 mcg/kg/min. He is on EN , vital HP at 35 cc/hr Objective - Vital Signs Vital signs: Vital Signs Temp 100.8 F H 08/08/24 04:00 Pulse 129 H 08/08/24 06:30 Resp 22 08/08/24 06:30 BP 93/43 08/07/24 22:00 Pulse Ox 96 08/08/24 06:30 FiO2 60 08/08/24 05:40 Intake & Output 08/07/24 08/07/24 08/08/24 06:59 18:59 06:59 Intake Total 7665.412 4877.586 1505.264 Output Total 500 539 625 Balance 5694.689 6092.586 880.264 Weight 215.4 kg 214.7 kg Intake: IV 891 1053 891 Lactated Ringers 1,000 ml 825 975 825 @ 75 mls/hr IV .[id number] [facility] Rx#:[id number] Pressure Bag 66 78 66 Intake, IV Titration 611.211 402.586 394.264 Amount Diltiazem 125 mg In 78.875 Sodium Chloride 0.9% 100 ml @ 7.5 MG/HR 7.5 mls/hr IV .[id number] [facility] Rx#: [id number] fentaNYL (PF). 1,000 mcg 287.808 175.232 94.264 In Sodium Chloride 0.9% 80 ml @ 0.5 MCG/KG/HR 10. 773 mls/hr IV .Q9H17M [facility] Rx#:[id number] propofoL 1,000 mg In 85.322 Empty Bag 1 bag @ 15 MCG/ KG/MIN 19.391 mls/hr IV . Q5H10M [facility] Rx#:[id number] propofoL 1,000 mg In 238.081 148.479 300.000 Empty Bag 1 bag @ 20 MCG/ KG/MIN 25.855 mls/hr IV . Q3H53M [facility] Rx#:[id number] Tube Feeding 260 130 220 Other 60 60 Output: Gastric Drainage 55 Urine 500 484 625 Other: Voiding Method Indwelling Catheter Indwelling Catheter Indwelling Catheter # Bowel Movements 0 ABP, PAP, CO, CI - Last Documented Arterial Blood Pressure 158/83 - Exam No acute distress, the patient is sedated, and, comfortable intubated on the mechanical ventilator. Orogastric and orotracheal tube are both in place. The patient is morbidly obese with a body mass index of 64.2. HEENT examination is grossly unremarkable. Mucous membranes are moist. No oral lesions. Neck supple. Full range of motion. No adenopathy thyromegaly or neck vein distention. Cardiovascular examination reveals irregular rhythm consistent with atrial fibrillation. S1-S2 normal. No S3 or S4. No discernible murmur noted. Heart sounds are very distant. Lungs reveal mostly clear breath sounds. Scattered rhonchi and crackles are noted. No wheezes. Breath sounds equal bilaterally. Abdomen is soft, but very obese. No bowel sounds. Extremities are intact. There is significant amount of edema lower extremities bilaterally, diminished pulses, no cyanosis or clubbing t Skin is without rash or lesion. Neurologic examination cannot be evaluated at this time. The patient is sedated on propofol. - Labs CBC & Chem 7: 08/08/24 04:20 08/08/24 04:20 Labs: Abnormal Lab Results - Last 24 Hours (Table) 08/07/24 08/07/24 08/07/24 Range/Units 11:19 17:00 20:11 RBC (4.30-5.90) m/uL Hgb (13.0-17.5) gm/dL Hct (39.0-53.0) % MCV (80.0-100.0) fL MCH (25.0-35.0) pg MCHC (31.0-37.0) g/dL RDW (11.5-15.5) % Lymphocytes # (1.0-4.8) k/uL ABG pH (7.35-7.45) ABG pCO2 (35-45) mmHg ABG pO2 (83-108) mmHg ABG HCO3 (21-25) mmol/L ABG Total CO2 (19-24) mmol/L ABG O2 Saturation (94-97) % Hemoglobin (13.0-17.5) gm/dL Sodium (137-145) mmol/L Carbon Dioxide (22-30) mmol/L BUN (9-20) mg/dL Glucose (74-99) mg/dL POC Glucose (mg/dL) 154 H 166 H 154 H (70-110) mg/dL Calcium (8.4-10.2) mg/dL 08/07/24 08/08/24 08/08/24 Range/Units 23:32 04:20 04:20 RBC 3.24 L (4.30-5.90) m/uL Hgb 7.5 L D (13.0-17.5) gm/dL Hct 25.6 L (39.0-53.0) % MCV 79.0 L (80.0-100.0) fL MCH 23.0 L (25.0-35.0) pg MCHC 29.1 L (31.0-37.0) g/dL RDW 16.5 H (11.5-15.5) % Lymphocytes # 0.6 L (1.0-4.8) k/uL ABG pH (7.35-7.45) ABG pCO2 (35-45) mmHg ABG pO2 (83-108) mmHg ABG HCO3 (21-25) mmol/L ABG Total CO2 (19-24) mmol/L ABG O2 Saturation (94-97) % Hemoglobin (13.0-17.5) gm/dL Sodium 135 L (137-145) mmol/L Carbon Dioxide 35 H (22-30) mmol/L BUN 22 H (9-20) mg/dL Glucose 139 H (74-99) mg/dL POC Glucose (mg/dL) 152 H (70-110) mg/dL Calcium 7.9 L (8.4-10.2) mg/dL 08/08/24 08/08/24 Range/Units 04:20 05:52 RBC (4.30-5.90) m/uL Hgb (13.0-17.5) gm/dL Hct (39.0-53.0) % MCV (80.0-100.0) fL MCH (25.0-35.0) pg MCHC (31.0-37.0) g/dL RDW (11.5-15.5) % Lymphocytes # (1.0-4.8) k/uL ABG pH 7.46 H (7.35-7.45) ABG pCO2 51 H (35-45) mmHg ABG pO2 69 L (83-108) mmHg ABG HCO3 36 H (21-25) mmol/L ABG Total CO2 38 H (19-24) mmol/L ABG O2 Saturation 93.7 L (94-97) % Hemoglobin 8.3 L (13.0-17.5) gm/dL Sodium (137-145) mmol/L Carbon Dioxide (22-30) mmol/L BUN (9-20) mg/dL Glucose (74-99) mg/dL POC Glucose (mg/dL) 153 H (70-110) mg/dL Calcium (8.4-10.2) mg/dL Microbiology - Last 24 Hours (Table) 08/05/24 08:28 Blood Culture - Preliminary Blood 08/05/24 07:40 Gram Stain - Final Sputum Sputum Culture - Final Assessment and Plan Plan: Acute hypoxic respiratory failure, intubated on the mechanical ventilator. Acute hypoxic respiratory failure is likely multifactorial. The patient has multifocal airspace disease with COVID-19 pneumonia. Rule out superimposed bacterial infection in addition. Remains intubated on mechanical ventilator. Patient was intubated on 08/05/2024. He is a half-way resident. Acute coronavirus infection infection and the patient tested positive at the time of admission on 08/05/2024 Chronic atrial fibrillation, currently on a Cardizem drip for rate control in combination with metoprolol and the patient is anticoagulated with Eliquis Morbid obesity Acute leukocytosis New onset seizure activity, started on IV Keppra. Further workup is pending including a CAT scan of the brain and EEG. The patient was given a total of 4 mg of Ativan overnight. Remains on propofol. History of CVA. History of hyperlipidemia. History of hypertension. History of obstructive sleep apnea syndrome. Obesity hypoventilation syndrome with BMI of 63.9 also contributing to his hypercapnia/chronic CHF with preserved LV function/diastolic heart failure Diabetes mellitus type 2, maintained on Levemir insulin BPH Chronic metabolic alkalosis,, secondary to chronic hypercapnia History of iron deficiency anemia Polysubstance abuse with previous drug screen showing cocaine and benzodiazepines History of right diabetic foot infection with previous I&D back in July 2023 and polymicrobial growth. Plan: Keep the patient sedated on propofol and fentanyl Continue ventilator support, no changes today Start the patient on Decadron 6 mg IV every 24 hours Empiric antibiotic coverage with IV Zosyn as the patient is a half-way resident Lasix 40 mg IV 12 hours check sputum Cx Obtain a CAT scan of the chest, no contrast CAT scan of the brain, no contrast EEG IV Keppra Management of atrial fibrillation and the patient remains off Cardizem drip and he is on Metoprolol and Eliquis Echo Continue metoprolol for rate control Continue anticoagulation with Eliquis Will continue to follow Critical care evaluation that was done more than 30 minutes Time with Patient: Greater than 30
[2024-08-08] MEDS: FUROSEMIDE 10 MG/ML 4 ML VIAL IV SCH (10:34)
--- NOTE | 2024-08-08 11:21 | CA ---
Transthoracic Echo Report Name: Dale Baird Age: 63 Gender: M : 1960 Exam Date: 08/08/2024 08:06 Exam Location: [place] [facility] Ht (in): 72 Wt (lb): 474 Ordering Physician: Kenyon Ayoub MD ([id number]) Attending/Referring Phys: Storm Chaser Ivana Oh RDCS Procedure CPT: Indications: afib Cardiac Hx: Technical Quality: Poor Contrast 1: Total Dose (mL): Contrast 2: Total Dose (mL): MEASUREMENTS (Male / Female) Normal Values 2D ECHO LV Diastolic Diameter PLAX 4.9 cm 4.2 - 5.9 / 3.9 - 5.3 cm LV Systolic Diameter PLAX 3.7 cm IVS Diastolic Thickness 1.4 cm 0.6 - 1.0 / 0.6 - 0.9 cm LVPW Diastolic Thickness 1.1 cm 0.6 - 1.0 / 0.6 - 0.9 cm LV Relative Wall Thickness 0.5 LVOT Diameter 2.3 cm Aortic Root Diameter 3.3 cm LV Diastolic Volume MOD BP 95.4 cm??? 67 - 155 / 56 - 104 cm??? LV Systolic Volume MOD BP 48.7 cm??? 22 - 58 / 19 - 49 cm??? LV Ejection Fraction MOD BP 49.0 % >= 55 % LV Cardiac Index MOD BP 1168.9 cm???/min???m??? LV Diastolic Volume MOD 4C 112.2 cm??? LV Systolic Volume MOD 4C 50.8 cm??? LV Ejection Fraction MOD 4C 54.7 % LV Cardiac Index MOD 4C 1535.6 cm???/min???m??? LV Diastolic Length 4C 7.8 cm LV Systolic Length 4C 6.8 cm LV Diastolic Volume MOD 2C 72.6 cm??? LV Systolic Volume MOD 2C 46.2 cm??? LV Ejection Fraction MOD 2C 36.5 % LV Cardiac Index MOD 2C 663.1 cm???/min???m??? LV Diastolic Length 2C 7.0 cm LV Systolic Length 2C 6.6 cm Ascending Aorta Diameter 3.5 cm DOPPLER AV Peak Velocity 138.6 cm/s AV Peak Gradient 7.7 mmHg AV Mean Velocity 107.0 cm/s AV Mean Gradient 5.0 mmHg AV Velocity Time Integral 21.9 cm LVOT Peak Velocity 93.6 cm/s LVOT Peak Gradient 3.5 mmHg LVOT Velocity Time Integral 15.4 cm LVOT Stroke Volume 61.5 cm??? LVOT Stroke Volume Index 20.0 ml/m??? LVOT Cardiac Index 1540.2 cm???/min???m??? AV Area Cont Eq vti 2.8 cm??? AV Area Cont Eq pk 2.7 cm??? PV Peak Velocity 83.5 cm/s PV Peak Gradient 2.8 mmHg FINDINGS Left Ventricle Left ventricular ejection fraction is estimated at 50-55 %. Mildly increased septal wall thickness. Mildly decreased left ventricular ejection fraction. Left ventricular cavity size normal. Mildly reduced global left ventricular systolic function. Right Ventricle Right ventricular dilatation with reduced function. Unable to estimate the right ventricular systolic pressure. Right Atrium Moderate RA dilatation Left Atrium Moderate LA dilatation Mitral Valve Structurally normal mitral valve. No mitral stenosis, regurgitation or prolapse. Aortic Valve Trileaflet aortic valve. Aortic valve sclerosis. No aortic valve stenosis or regurgitation. Tricuspid Valve Structurally normal tricuspid valve. No tricuspid stenosis. No tricuspid regurgitation. Pulmonic Valve Pulmonic valve not well visualized. No pulmonic stenosis. No pulmonic regurgitation. Pericardium No pericardial effusion. Aorta Normal size aortic root and proximal ascending aorta. CONCLUSIONS LVEF 55 to 60% Mild concentric LVH No obvious regional wall motion abnormality Moderate biatrial dilatation No significant valvular dysfunction Previewed by: Dr Broderick Hardin (Electronically Signed) Final Date: 08 August 2024 11:20
[2024-08-08 12:19] LABS: Glucose,Whole Blood 184 mg/dL (70-110)
--- NOTE | 2024-08-08 12:32 | EEG ---
DATE OF SERVICE: 08/08/2024 ELECTROENCEPHALOGRAM REPORT PREAMBLE: This is a 63-year-old male with new-onset seizure. The patient is on ventilator. CURRENT MEDICATIONS: 1. Eliquis. 2. Diltiazem. 3. Fentanyl. 4. NovoLog. 5. Keppra. 6. Ativan. 7. Lopressor. 8. Propranolol. EEG FINDINGS: This is a 21-channel digital EEG recorded with video component, utilizing 10/20 international system with referential and bipolar montages. Recording starts and continues with presence of very low amplitude, predominantly 5 to 6 hertz theta activity intermixed with some suppressed and sometimes low amplitude delta slowing in bihemispheric region. Background does not seem to be reactive to manual eye opening or closing. Photic driving response was not seen. Sporadically, some relatively better looking low amplitude 9 hertz alpha activity was seen. Different stages of sleep were not clearly seen. No focal or generalized epileptiform activity was seen. IMPRESSION: This is an abnormal EEG due to background slowing of moderate to severe degree. This is suggestive of generalized cerebral dysfunction as can be seen with toxic metabolic encephalopathy or related to diffuse structural brain abnormality. Clinical correlation is recommended. Occasionally relatively better/normal-appearing background was seen sporadically during the study. This may pertain to relatively better prognosis. However clinical correlation and followup EEG strongly recommended. No epileptiform activity was seen. MMODL / IJN: [id number] / [place]
--- NOTE | 2024-08-08 12:57 | P.CNNES ---
History of Present Illness Consult date: 08/08/24 Requesting physician: Susannah Campbell Reason for Consult: No pupillary response History of Present Illness: Patient is a 63-year-old male came to the hospital by ambulance on 08/05/2024 for unresponsiveness. Patient at present intubated, sedated with propofol, therefore not able to provide any history. As per EMS flowsheet when they arrived at the scene, patient was unresponsive laying supine in the bed in care of nursing staff with CPAP applied and oxygen via nasal cannula at 4 L/min. Staff mentioned that patient was last seen well at 4:30 AM and at 5:30 AM patient was found unresponsive. They applied CPAP which he had not worn the night prior. His oxygen saturation reading was 70%. Patient had audible gurgles present and unlabored respiration at a rapid rate. Patient was unresponsive. Lung sounds reveal crackles throughout. Patient was placed on oxygen via nonrebreather mask at 15 L/min. EKG showed sinus rhythm. Patient's oxygen saturation improved with oxygenation however he remained hypoxic. Ventilations are assisted with BVM attached to oxygen at 15 L/min. IV access was attempted but unsuccessful due to morbid obesity. Patient had yellow secretions noted. These were suctioned. On arrival patient's oxygen was maintained at 94% or greater. Patient's vitals include blood pressure 102/51, pulse rate 130, respiration 14 saturation 70%. Repeat blood pressure 121/66, saturation 89% and blood sugar 358. Blood test shows WBC 12.5 hemoglobin 10.0, platelets 380. PT PTT normal, sodium normal potassium 5.8. Renal functions, hepatic panel, troponin normal. Coronavirus PCR positive. RSV negative. Lactate 3.2. Urine Legionella antigen negative. CT head performed this morning showed no acute intracranial process. Consider MRI if there is further concern. Small vessel ischemic disease/degenerative changes. Cerebral and cerebellar atrophy. Most recent chest x-ray shows mild cardiomegaly with left greater than right multifocal acute infiltrates and/or edema, slight worsening from 1 day earlier. EKG showing atrial fibrillation. Patient at home on Eliquis 5 mg twice daily. Per nursing report, patient apparently had a seizure-like activity at 5:30 in the morning. Patient was taken to CT head, and while involved, patient had another one at 6:03 AM. The nurse reported it as some tremoring, with upward movement of the upper extremities. She did not know how long it lasted. Patient was given Ativan 2 mg IV push each time, and then Keppra 1500 mg loading dose followed by 1000 mg IV twice daily. No further seizure-like activity is noted. Patient at present on propofol 30 mcg/kg/min, and also on fentanyl 0.5. Patient also on norepinephrine 0.015 micrograms per kilogram's per minute. No seizure- like activity noticeable at this time. Review of Systems ROS unobtainable: due to endotracheal tube, due to mental status Past Medical History Past Medical History: Atrial Fibrillation, Diabetes Mellitus, GERD/Reflux, Hyperlipidemia, Hypertension, Sleep Apnea/CPAP/BIPAP Additional Past Medical History / Comment(s): diabetic neuropathy, "leaky valve", frequent foot & ankle swelling, USES C-PAP, shortness of breath, unable to walk distances. rhabdo History of Any Multi-Drug Resistant Organisms: CRE, ESBL, Other MDRO Date of last positivie culture/infection: 07/03/24 - TRAVEL PROFESSIONAL-CRE; 07/28/23-ESBL MDRO Source:: AYD-GLR-akwle; ESBL-Right Foot Past Surgical History: Bariatric Surgery, Hernia Repair Additional Past Surgical History / Comment(s): GASTRIC SLEEVE. EGD Past Anesthesia/Blood Transfusion Reactions: No Reported Reaction, Motion Sickness Past Psychological History: Anxiety Smoking Status: Former smoker Past Alcohol Use History: None Reported Additional Past Alcohol Use History / Comment(s): QUIT SMOKING 2004 Past Drug Use History: None Reported Additional Drug Use History / Comment(s): positive for cocaine and benzos on tox screen 07/26/23. - Past Family History Mother Family Medical History: Cancer Additional Family Medical History / Comment(s): Father Family Medical History: Hypertension Additional Family Medical History / Comment(s): Brother(s) Family Medical History: Asthma, COPD, Hypertension Medications and Allergies Home Medications Medication Instructions Recorded Confirmed Type Omeprazole [PriLOSEC] 20 mg PO DAILY 06/27/20 08/05/24 History Cholecalciferol [Vitamin D3 (25 25 mcg PO DAILY 05/25/23 08/05/24 History Mcg = 1000 Iu)] Insulin Lispro [humaLOG Kwikpen] See Protocol SQ ACHS 05/25/23 08/05/24 History Metoprolol Tartrate [Lopressor] 12.5 mg PO BID 05/25/23 08/05/24 History polyethylene glycoL 3350 [Miralax] 17 gm PO DAILY PRN 05/25/23 08/05/24 History Furosemide [Lasix] 40 mg PO DAILY 07/25/23 08/05/24 History Naloxone HCl [Narcan] 4 mg NASAL ONCE PRN 07/25/23 08/05/24 History Gabapentin 800 mg PO Q8H 08/02/23 08/05/24 History Albuterol Nebulized [Ventolin 2.5 mg INHALATION RT-Q6H PRN 07/03/24 08/05/24 History Nebulized] Apixaban [Eliquis] 5 mg PO BID 07/03/24 08/05/24 History Dextrose Chew [Glucose Chew Tab] 12 gm PO DAILY PRN 07/03/24 08/05/24 History Dextrose Gel [Glutose 15 Gel] 15 gm PO DAILY PRN 07/03/24 08/05/24 History Folic Acid 0.8 mg PO HS 07/03/24 08/05/24 History Insulin Glargine,Hum.rec.anlog 20 units SQ DAILY 07/03/24 08/05/24 History [Lantus Solostar Pen] Lactulose 20 gm PO DAILY 07/03/24 08/05/24 History Losartan [Cozaar] 12.5 mg PO DAILY 07/03/24 08/05/24 History Magnesium Oxide [Mag-Ox] 400 mg PO HS 07/03/24 08/05/24 History Naloxone 0.4mg/Ml Injection 0.4 mg IV ONCE PRN 07/03/24 08/05/24 History Tamsulosin [Flomax] 0.4 mg PO DAILY 07/03/24 08/05/24 History Acetaminophen [Tylenol 8 Hour] 650 mg PO Q6H PRN 08/05/24 08/05/24 History Ciprofloxacin HCl [Cipro] 500 mg PO Q12HR 08/05/24 08/05/24 History HYDROcodone/APAP 10-325MG [Nyssa 1 tab PO Q6HR PRN 08/05/24 08/05/24 History 10-325] Ipratropium-Albuterol Nebulize 3 ml INHALATION RT-Q4H PRN 08/05/24 08/05/24 History [Duoneb 0.5 mg-3 mg/3 ml Soln] L.acidoph,Paracasei, B.lactis 1 cap PO DAILY 08/05/24 08/05/24 History [Probiotic] Allergies Allergy/AdvReac Type Severity Reaction Status Date / Time latex Allergy Rash/Hives Verified 08/05/24 09:11 Physical Examination - Vital Signs Vital Signs: Vital Signs Temp Pulse Resp BP Pulse Ox FiO2 08/08/24 10:15 73 20 91 L 08/08/24 10:00 69 20 92 L 08/08/24 09:45 74 20 91 L 08/08/24 09:30 51 L 20 98 08/08/24 09:15 65 20 97 08/08/24 09:00 75 20 94 L 08/08/24 08:45 68 20 93 L 08/08/24 08:30 100.4 F H 81 20 92 L 08/08/24 08:15 83 11 L 92 L 08/08/24 08:09 60 08/08/24 08:00 86 9 L 91 L 60 08/08/24 07:45 85 16 91 L 08/08/24 07:30 110 H 16 93/43 91 L 08/08/24 07:15 107 H 10 L 93/43 92 L 08/08/24 07:00 117 H 21 93/43 91 L 08/08/24 06:30 129 H 22 96 08/08/24 05:40 60 08/08/24 05:30 75 22 94 L 08/08/24 05:00 79 21 99 08/08/24 04:56 50 08/08/24 04:30 69 20 97 08/08/24 04:00 100.8 F H 64 22 94 L 50 08/08/24 03:30 77 21 96 08/08/24 03:00 101.5 F H 80 22 96 60 08/08/24 02:30 76 20 96 08/08/24 02:00 69 21 96 08/08/24 01:30 77 20 97 08/08/24 01:00 100.9 F H 81 20 96 60 08/08/24 00:57 60 08/08/24 00:54 60 08/08/24 00:39 50 08/08/24 00:30 61 21 97 08/08/24 00:07 57 L 20 94 L 08/08/24 00:00 64 20 97 50 08/07/24 23:50 50 08/07/24 23:30 60 21 98 08/07/24 23:00 67 20 100 08/07/24 22:30 60 21 100 08/07/24 22:00 53 L 22 93/43 100 08/07/24 21:30 68 20 98 08/07/24 21:10 65 08/07/24 21:00 67 16 129/79 99 65 08/07/24 20:30 66 20 129/79 100 08/07/24 20:00 100.6 F H 76 20 100 65 08/07/24 19:30 70 20 100 08/07/24 19:00 63 20 99 08/07/24 18:00 61 20 99 08/07/24 17:00 60 20 96 08/07/24 16:40 80 08/07/24 16:00 38.1 F L 63 20 98 80 08/07/24 15:00 68 20 99 08/07/24 14:00 63 20 97 08/07/24 13:00 70 20 97 08/07/24 12:18 80 08/07/24 12:00 63 20 97 80 Intake and Output 08/07/24 08/08/24 08/08/24 22:59 06:59 14:59 Intake Total 1177.717 934.744 681.469 Output Total 331 475 140 Balance 846.717 459.744 541.469 Intake: IV 648 648 253 .9NS KVO 10 Lactated Ringers 1,000 ml 600 600 225 @ 75 mls/hr IV .[id number] [facility] Rx#:[id number] Pressure Bag 48 48 18 Intake, IV Titration 359.717 126.744 408.469 Amount Diltiazem 125 mg In 23.25 Sodium Chloride 0.9% 100 ml @ 7.5 MG/HR 7.5 mls/hr IV .[id number] [facility] Rx#: [id number] Magnesium Sulfate-D5w Pmx 100 1 gm In Dextrose/Water 1 100ml.bag @ 100 mls/hr IVPB ONCE ONE Rx#: [id number] Norepinephrine 8 mg In 15.164 Sodium Chloride 0.9% 250 ml @ 0.03 MCG/KG/MIN 12. 463 mls/hr IV .[id number] [facility] Rx#:[id number] Piperacillin-Tazobactam 3 12.5 .375 gm In Sodium Chloride 0.9% 100 ml @ 25 mls/hr IVPB Q8HR [facility] Rx# :[id number] Potassium Chloride 10 meq 100 In Water For Injection 1 100ml.bag @ 100 mls/hr IVPB Q1H [facility] Rx#: [id number] fentaNYL (PF). 1,000 mcg 94.264 87.620 In Sodium Chloride 0.9% 80 ml @ 0.5 MCG/KG/HR 10. 773 mls/hr IV .[id number] [facility] Rx#:[id number] propofoL 1,000 mg In 242.203 126.744 93.185 Empty Bag 1 bag @ 20 MCG/ KG/MIN 25.855 mls/hr IV . Q3H53M [facility] Rx#:[id number] Tube Feeding 140 160 20 Other 30 Output: Urine 331 475 140 Other: Voiding Method Indwelling Catheter Indwelling Catheter Weight 214.7 kg ABP, PAP, CO, CI - Last 8 Hours Arterial Blood Pressure 111/56 Arterial Blood Pressure 111/59 Arterial Blood Pressure 84/47 Arterial Blood Pressure 107/59 Arterial Blood Pressure 95/52 Arterial Blood Pressure 76/43 Arterial Blood Pressure 77/42 Arterial Blood Pressure 82/44 Arterial Blood Pressure 80/46 Arterial Blood Pressure 87/48 Arterial Blood Pressure 91/48 Arterial Blood Pressure 88/51 Arterial Blood Pressure 86/52 Arterial Blood Pressure 100/56 Arterial Blood Pressure 158/83 Arterial Blood Pressure 104/57 Arterial Blood Pressure 120/68 Arterial Blood Pressure 91/49 Arterial Blood Pressure 90/54 Arterial Blood Pressure 85/46 Patient is a middle aged male, morbidly obese, intubated, sedated with propofol. Patient is unresponsive to calling name or with painful stimuli. Patient is breathing over the ventilator. Patient does have some gag and cough as per nursing report. On cranial nerve examination, pupils are very small about 2 mm, mildly reactive to light. Oculocephalics are absent. Corneals slightly present sporadically. Patient has some gag and cough. On muscle strength testing, patient is not following any commands. Patient not responding to painful stimuli in the arms or legs. Deep tendon reflexes are symmetric very hypoactive to absent, and plantars flat. Sensory to touch or with nailbed pressure, patient is not responding. Cerebellar function cannot be assessed. Tone and bulk of muscles normal. Gait deferred.. On general examination, there is no carotid bruit or murmur, S1-S2 audible. Chest is clear on consultation. Abdomen is soft nontender. No organomegaly, bowel sounds present. Peripheral pulses are present. Mild peripheral edema. Results - Laboratory Findings CBC and BMP: 08/08/24 04:20 08/08/24 04:20 Abnormal Lab Findings: Abnormal Labs 08/05/24 08/05/24 08/05/24 06:54 07:09 07:09 WBC 12.5 H RBC 4.26 L Hgb 10.0 L Hct 37.0 L MCV MCH 23.5 L MCHC 27.0 L RDW 15.9 H Neutrophils # 10.8 H Lymphocytes # 0.6 L APTT 21.8 L ABG pH ABG pCO2 ABG pO2 ABG HCO3 ABG Total CO2 ABG O2 Saturation Hemoglobin Sodium Potassium Chloride Carbon Dioxide BUN Glucose POC Glucose (mg/dL) 328 H Hemoglobin A1c Plasma Lactic Acid Antony Calcium Total Protein Albumin SARS-CoV-2 (PCR) 08/05/24 08/05/24 08/05/24 07:09 07:36 08:39 WBC RBC Hgb Hct MCV MCH MCHC RDW Neutrophils # Lymphocytes # APTT ABG pH ABG pCO2 ABG pO2 ABG HCO3 ABG Total CO2 ABG O2 Saturation Hemoglobin Sodium Potassium 5.8 H Chloride 93 L Carbon Dioxide 38 H BUN Glucose 299 H POC Glucose (mg/dL) Hemoglobin A1c Plasma Lactic Acid Antony 3.2 H* Calcium Total Protein Albumin SARS-CoV-2 (PCR) Detected A 08/05/24 08/05/24 08/05/24 09:54 11:16 20:09 WBC RBC Hgb Hct MCV MCH MCHC RDW Neutrophils # Lymphocytes # APTT ABG pH ABG pCO2 69 H ABG pO2 74 L ABG HCO3 41 H* ABG Total CO2 43 H ABG O2 Saturation Hemoglobin 8.1 L Sodium Potassium Chloride Carbon Dioxide BUN Glucose POC Glucose (mg/dL) 287 H Hemoglobin A1c Plasma Lactic Acid Antony 3.2 H* Calcium Total Protein Albumin SARS-CoV-2 (PCR) 08/05/24 08/06/24 08/06/24 23:28 05:03 05:07 WBC RBC 3.50 L Hgb 8.3 L D Hct 28.4 L MCV MCH 23.8 L MCHC 29.2 L RDW 16.3 H Neutrophils # Lymphocytes # 0.7 L APTT ABG pH ABG pCO2 ABG pO2 ABG HCO3 ABG Total CO2 ABG O2 Saturation Hemoglobin Sodium Potassium Chloride 94 L Carbon Dioxide 37 H BUN 23 H Glucose 246 H POC Glucose (mg/dL) 293 H Hemoglobin A1c Plasma Lactic Acid Antony Calcium Total Protein 5.9 L Albumin 2.8 L SARS-CoV-2 (PCR) 08/06/24 08/06/24 08/06/24 05:07 05:45 06:15 WBC RBC Hgb Hct MCV MCH MCHC RDW Neutrophils # Lymphocytes # APTT ABG pH 7.58 H* ABG pCO2 ABG pO2 58 L* ABG HCO3 40 H* ABG Total CO2 42 H ABG O2 Saturation 93.9 L Hemoglobin Sodium Potassium Chloride Carbon Dioxide BUN Glucose POC Glucose (mg/dL) 280 H Hemoglobin A1c 7.3 H Plasma Lactic Acid Antony Calcium Total Protein Albumin SARS-CoV-2 (PCR) 08/06/24 08/06/24 08/06/24 11:40 17:15 21:13 WBC RBC Hgb Hct MCV MCH MCHC RDW Neutrophils # Lymphocytes # APTT ABG pH ABG pCO2 ABG pO2 ABG HCO3 ABG Total CO2 ABG O2 Saturation Hemoglobin Sodium Potassium Chloride Carbon Dioxide BUN Glucose POC Glucose (mg/dL) 256 H 236 H 229 H Hemoglobin A1c Plasma Lactic Acid Antony Calcium Total Protein Albumin SARS-CoV-2 (PCR) 08/06/24 08/07/24 08/07/24 23:58 04:40 04:40 WBC RBC 3.94 L Hgb 9.3 L Hct 31.6 L MCV MCH 23.6 L MCHC 29.4 L RDW 16.5 H Neutrophils # Lymphocytes # 0.6 L APTT ABG pH ABG pCO2 ABG pO2 ABG HCO3 ABG Total CO2 ABG O2 Saturation Hemoglobin Sodium Potassium Chloride 95 L Carbon Dioxide 38 H BUN 23 H Glucose 178 H POC Glucose (mg/dL) 214 H Hemoglobin A1c Plasma Lactic Acid Antony Calcium Total Protein Albumin SARS-CoV-2 (PCR) 08/07/24 08/07/24 08/07/24 05:18 06:19 11:19 WBC RBC Hgb Hct MCV MCH MCHC RDW Neutrophils # Lymphocytes # APTT ABG pH ABG pCO2 68 H ABG pO2 ABG HCO3 39 H ABG Total CO2 41 H ABG O2 Saturation Hemoglobin 10.0 L Sodium Potassium Chloride Carbon Dioxide BUN Glucose POC Glucose (mg/dL) 162 H 154 H Hemoglobin A1c Plasma Lactic Acid Antony Calcium Total Protein Albumin SARS-CoV-2 (PCR) 08/07/24 08/07/24 08/07/24 17:00 20:11 23:32 WBC RBC Hgb Hct MCV MCH MCHC RDW Neutrophils # Lymphocytes # APTT ABG pH ABG pCO2 ABG pO2 ABG HCO3 ABG Total CO2 ABG O2 Saturation Hemoglobin Sodium Potassium Chloride Carbon Dioxide BUN Glucose POC Glucose (mg/dL) 166 H 154 H 152 H Hemoglobin A1c Plasma Lactic Acid Antony Calcium Total Protein Albumin SARS-CoV-2 (PCR) 08/08/24 08/08/24 08/08/24 04:20 04:20 04:20 WBC RBC 3.24 L Hgb 7.5 L D Hct 25.6 L MCV 79.0 L MCH 23.0 L MCHC 29.1 L RDW 16.5 H Neutrophils # Lymphocytes # 0.6 L APTT ABG pH ABG pCO2 ABG pO2 ABG HCO3 ABG Total CO2 ABG O2 Saturation Hemoglobin Sodium 135 L Potassium Chloride Carbon Dioxide 35 H BUN 22 H Glucose 139 H POC Glucose (mg/dL) 153 H Hemoglobin A1c Plasma Lactic Acid Antony Calcium 7.9 L Total Protein Albumin SARS-CoV-2 (PCR) 08/08/24 05:52 WBC RBC Hgb Hct MCV MCH MCHC RDW Neutrophils # Lymphocytes # APTT ABG pH 7.46 H ABG pCO2 51 H ABG pO2 69 L ABG HCO3 36 H ABG Total CO2 38 H ABG O2 Saturation 93.7 L Hemoglobin 8.3 L Sodium Potassium Chloride Carbon Dioxide BUN Glucose POC Glucose (mg/dL) Hemoglobin A1c Plasma Lactic Acid Antony Calcium Total Protein Albumin SARS-CoV-2 (PCR) Assessment and Plan Assessment: * Altered mental status, likely due to hypoxic/toxic metabolic encephalopathy. Patient was found unresponsive at the facility, with saturation of 70%. * Acute COVID-19 pneumonia * Respiratory failure, on mechanical ventilation * Atrial fibrillation, on Eliquis * Anemia * Hyperlipidemia * Hypertension * Sleep apnea * Diabetic neuropathy * History of CVA * Obesity hyperventilation syndrome with BMI of 63.9 * CHF * Diabetes type 2 * BPH * Previous history of polysubstance abuse Plan: * EEG was performed today, which revealed background slowing moderate to severe degree, suggestive of encephalopathy. Some sporadic normal appearing background was also seen, which may pertain to better prognosis. However clinical correlation and follow-up EEG strongly recommended. * Continue Keppra 1000 mg twice daily. Patient has received loading dose of Keppra 1500 mg as well. No seizure-like activity noticed at this time. * Continue Eliquis for atrial fibrillation. * Patient on Zosyn. * Other medical management as per IM and critical care. * Discussed with nursing staff in detail. * Thank you for the consult.
[2024-08-08] MEDS: LACTATED RINGERS 500 ML IV SCH (14:11)
--- NOTE | 2024-08-08 15:27 | P.PN ---
Subjective History of Present Illness: The patient is a 63-year-old male with known history of morbid obesity, permanent atrial fibrillation, prior history of CVA, hypertension and hyperlipidemia who presented from the shelter with progressive dyspnea and decreased mentation, he was found to be unresponsive and was intubated. He was diagnosed with COVID infection. He remains intubated. Cardiology consultation was requested because of the atrial fibrillation. The patient has a known permanent atrial fibrillation, anticoagulated. His ventricular rate was stable on presentation with episode of slow ventricular response. Yesterday he became tachycardic and was started on IV Cardizem. He is stable at this time. He has underwent cardiac catheterization in 2012 and was found to have mild to moderate obstructive disease. His left ventricular systolic function was preserved in 2022. He is on no vasopressors and his urinary output has been stable. His troponin was normal on admission and his NT proBNP was 3320. He has a history of hypertension and diabetes. Medications: As an outpatient he is on Eliquis 5 mg twice a day, losartan 12.5 mg daily, metoprolol tartrate 12.5 mg twice a day, insulin, Lasix 40 mg daily, MiraLAX, Flomax, gabapentin 08/08 Patient seen and examined. Patient had seizure-like activity and therefore taken for CT brain this morning which showed no significant change. EEG showing moderate to severe background slowing. He was more tachycardic on transfer however after getting patient situated has been in the bradycardic 40s to 50s A. fib. He did receive his metoprolol 12.5 twice a day. Remains on low dose norepinephrine. Physical Examination: 63-year-old male, intubated and sedated, morbidly obese, Head: Normocephalic. Eyes: Sclerae nonicteric. Neck: Good carotid upstroke, no bruit, . Lungs: Clear to auscultation anteriorly. Heart: Irregular rate and rhythm, S1-S2, no S3, no rub. No murmur. Abdomen: Soft obese, positive bowel sounds no organomegaly. Extremities: +2 edema. Impression: 1. Respiratory failure with COVID infection, possible aspiration pneumonia 2. Permanent atrial fibrillation 3. History of CVA 4. History of hypertension 5. History of diabetes 6. Morbid obesity 7. Obstructive sleep apnea 8. Bradycardia, asymptomatic Plan: IV Cardizem has been discontinued and is tolerating anticoagulation. Continue with low-dose metoprolol however may have some degree of sick sinus syndrome, tachycardia/bradycardia syndrome. Continue metoprolol and monitor symptomatically. Echocardiogram showing EF 55-60% without significant valvular disease. Wean ventilator as able. Objective - Vital Signs Vital signs: Vital Signs Temp 100.4 F H 08/08/24 08:30 Pulse 48 L 08/08/24 15:00 Resp 20 08/08/24 15:00 BP 93/43 08/08/24 14:45 Pulse Ox 97 08/08/24 15:00 FiO2 60 08/08/24 12:07 Intake & Output 08/07/24 08/08/24 08/08/24 18:59 06:59 18:59 Intake Total 1542.107 9754.264 1638.866 Output Total 266 380 0996 Balance 1106.586 880.264 -951.134 Weight 214.7 kg 214.7 kg Intake: IV 1053 891 769 .9NS KVO 40 Lactated Ringers 1,000 ml 975 825 675 @ 75 mls/hr IV .[id number] [facility] Rx#:[id number] Pressure Bag 78 66 54 Intake, IV Titration 402.586 394.264 759.866 Amount Diltiazem 125 mg In 78.875 Sodium Chloride 0.9% 100 ml @ 7.5 MG/HR 7.5 mls/hr IV .[id number] [facility] Rx#: [id number] Magnesium Sulfate-D5w Pmx 100 1 gm In Dextrose/Water 1 100ml.bag @ 100 mls/hr IVPB ONCE ONE Rx#: [id number] Norepinephrine 8 mg In 38.325 Sodium Chloride 0.9% 250 ml @ 0.03 MCG/KG/MIN 12. 463 mls/hr IV .[id number] [facility] Rx#:[id number] Piperacillin-Tazobactam 3 50.0 .375 gm In Sodium Chloride 0.9% 100 ml @ 25 mls/hr IVPB Q8HR [facility] Rx# :[id number] Potassium Chloride 10 meq 200 In Water For Injection 1 100ml.bag @ 100 mls/hr IVPB Q1H [facility] Rx#: [id number] fentaNYL (PF). 1,000 mcg 175.232 94.264 187.620 In Sodium Chloride 0.9% 80 ml @ 0.5 MCG/KG/HR 10. 773 mls/hr IV .Q9H17M [facility] Rx#:[id number] propofoL 1,000 mg In 148.479 300.000 183.921 Empty Bag 1 bag @ 20 MCG/ KG/MIN 25.855 mls/hr IV . Q3H53M [facility] Rx#:[id number] Tube Feeding 130 220 110 Other 60 Output: Gastric Drainage 55 Urine 866 838 9475 Other: Voiding Method Indwelling Catheter Indwelling Catheter ABP, PAP, CO, CI - Last Documented Arterial Blood Pressure 131/67 - Labs CBC & Chem 7: 08/08/24 04:20 08/08/24 12:15 Labs: Abnormal Lab Results - Last 24 Hours (Table) 08/07/24 08/07/24 08/07/24 Range/Units 17:00 20:11 23:32 RBC (4.30-5.90) m/uL Hgb (13.0-17.5) gm/dL Hct (39.0-53.0) % MCV (80.0-100.0) fL MCH (25.0-35.0) pg MCHC (31.0-37.0) g/dL RDW (11.5-15.5) % Lymphocytes # (1.0-4.8) k/uL ABG pH (7.35-7.45) ABG pCO2 (35-45) mmHg ABG pO2 (83-108) mmHg ABG HCO3 (21-25) mmol/L ABG Total CO2 (19-24) mmol/L ABG O2 Saturation (94-97) % Hemoglobin (13.0-17.5) gm/dL Sodium (137-145) mmol/L Carbon Dioxide (22-30) mmol/L BUN (9-20) mg/dL Glucose (74-99) mg/dL POC Glucose (mg/dL) 166 H 154 H 152 H (70-110) mg/dL Calcium (8.4-10.2) mg/dL 08/08/24 08/08/24 08/08/24 Range/Units 04:20 04:20 04:20 RBC 3.24 L (4.30-5.90) m/uL Hgb 7.5 L D (13.0-17.5) gm/dL Hct 25.6 L (39.0-53.0) % MCV 79.0 L (80.0-100.0) fL MCH 23.0 L (25.0-35.0) pg MCHC 29.1 L (31.0-37.0) g/dL RDW 16.5 H (11.5-15.5) % Lymphocytes # 0.6 L (1.0-4.8) k/uL ABG pH (7.35-7.45) ABG pCO2 (35-45) mmHg ABG pO2 (83-108) mmHg ABG HCO3 (21-25) mmol/L ABG Total CO2 (19-24) mmol/L ABG O2 Saturation (94-97) % Hemoglobin (13.0-17.5) gm/dL Sodium 135 L (137-145) mmol/L Carbon Dioxide 35 H (22-30) mmol/L BUN 22 H (9-20) mg/dL Glucose 139 H (74-99) mg/dL POC Glucose (mg/dL) 153 H (70-110) mg/dL Calcium 7.9 L (8.4-10.2) mg/dL 08/08/24 08/08/24 Range/Units 05:52 12:16 RBC (4.30-5.90) m/uL Hgb (13.0-17.5) gm/dL Hct (39.0-53.0) % MCV (80.0-100.0) fL MCH (25.0-35.0) pg MCHC (31.0-37.0) g/dL RDW (11.5-15.5) % Lymphocytes # (1.0-4.8) k/uL ABG pH 7.46 H (7.35-7.45) ABG pCO2 51 H (35-45) mmHg ABG pO2 69 L (83-108) mmHg ABG HCO3 36 H (21-25) mmol/L ABG Total CO2 38 H (19-24) mmol/L ABG O2 Saturation 93.7 L (94-97) % Hemoglobin 8.3 L (13.0-17.5) gm/dL Sodium (137-145) mmol/L Carbon Dioxide (22-30) mmol/L BUN (9-20) mg/dL Glucose (74-99) mg/dL POC Glucose (mg/dL) 184 H (70-110) mg/dL Calcium (8.4-10.2) mg/dL Microbiology - Last 24 Hours (Table) 08/05/24 08:28 Blood Culture - Preliminary Blood
[2024-08-08 17:28] LABS: Glucose,Whole Blood 230 mg/dL (70-110)
[2024-08-08] MEDS ORDERED: DEXAMETHASONE SOD PHOSPHATE 4 MG/ML 1 ML VIAL IVP SCH (18:45)
[2024-08-08] MEDS: levETIRAcetam IV 500 MG/5 ML VIAL IVP SCH (20:42)
[2024-08-08 23:19] LABS: Glucose,Whole Blood 228 mg/dL (70-110)
--- NOTE | 2024-08-08 23:26 | P.PN ---
Subjective Progress Note Date: 08/08/24 Patient in the intensive care unit currently intubated and sedated on the mechanical ventilator. Patient's chest x-ray today does reveal worsening CHF. He is significantly edematous. Remains sedated with IV fentanyl and propofol. He continues on IV Zosyn. Patient was started on enteral feedings today. blood sugars are elevated in the 200s. 08/07/2024 Patient was evaluated in follow-up in the medical floor he is currently intubated and sedated on the mechanical ventilator. Patient had gone into atrial fibrillation with rapid ventricular rate overnight requiring IV Cardizem. He has been since transition to oral metoprolol with heart rate better controlled today. He does have a noted history of atrial fibrillation was resumed on his oral Eliquis yesterday. Patient currently has LR running at 75 mL/h he does remain quite edematous mostly in his lower extremities. Patient was noted to have a small amount of yellow bile emesis there has been no residual with his tube feedings and they are continued at a slow rate today of 10 mL/h. He is febrile today temperature of 100.8. An abdominal x-ray was unable to be completed due to patient's body habitus and he is unable to be transported down for x-ray at this time. 08/08/2024 Patient is seen in follow-up in the ICU and overnight placed on mechanical ventilation as patient was noted to have what appeared to be seizure-like activity with no history of seizures and neurology was consulted. Patient was placed on mechanical ventilation currently with an FiO2 of 60% and PEEP is 10 with pulmonary site administrator following. Patient remains with low-grade temps and also started on Keppra and is maintained on antibiotics. Cardiology following as well maintained on oral anticoagulation and has been having heart rates in the 40s. Continued on low-dose metoprolol and will continue to monitor closely. Per nursing staff patient also requiring low-dose Levophed and has been started on 40 of IV Lasix daily due to significant swelling. Will follow-up on repeat labs and continue to monitor closely. Unable to complete review of systems as patient is currently intubated and sedated PHYSICAL EXAMINATION: GENERAL: The patient is intubated and sedated. He is morbidly obese HEENT: Pupils are round and equally reacting to light. EOMI. No scleral icterus. No conjunctival pallor. Normocephalic, atraumatic. No pharyngeal erythema. No thyromegaly. CARDIOVASCULAR: S1 and S2 muffled, irregular PULMONARY: Diminished breath sounds bilaterally otherwise chest is clear to auscultation, no wheezing , no crackles. ABDOMEN: Soft, obese, nontender, nondistended, normoactive bowel sounds. No palpable organomegaly. Kelly catheter in place MUSCULOSKELETAL: No joint swelling or deformity. EXTREMITIES: No cyanosis, clubbing, continues with significant lower extremity edema bilaterally pitting right lower leg superficial wound with dressing in place changed yesterday NEUROLOGICAL: Gross neurological examination did not reveal any focal deficits. Unable to completely assess as patient is intubated and maintained on sedation SKIN: No rashes. no petechiae. Assessment: Acute hypoxic respiratory failure requiring intubation on admission, currently on mechanical ventilation COVID infection and possible pneumonia, concerns for aspiration pneumonia Possible seizure like activity, new onset Possible acute COPD exacerbation versus obesity hypoventilation syndrome Possible bacterial pneumonia, healthcare associated with right upper lobe and left lower lobe infiltrates Severe sepsis requiring pressor support A-fib and RVR, present on admission now with slow ventricular rate dropping into the 30s. Patient went into afib RVR overnight. Right leg wound with recent cultures showing enterococcus faecalis, ESBL and Providencia Rettgeri Diabetes Mellitus type 2, uncontrolled with hyperglycemia Morbid obesity with a BMI of 64.2 Chronic anemia Lactic acidemia/acidosis GI prophylaxis DVT prophylaxis Full Code Plan Continue with antibiotic Zithromax and Zosyn with infectious disease following. Highly concern for aspiration pneumonia. Continue with IV fluid Ringer lactate decreased to 75 mls/hr. Continue with intubation and mechanical ventilation. FiO2 is 60% with a PEEP of 10, wean as tolerated Continue enteral feedings, tube feeds were placed on hold as patient had a seizure-like episode last night and had been aspirating on tube feeds. Continue with aspiration precautions and head of the bed elevated 45 degrees at all times and monitor closely for residuals Patient does not have history of seizures and was given a dose of Keppra and neurology consulted. EEG is pending for today. Continue cardiac telemetry with cardiology following. Continued on low-dose metoprolol Per pulmonary site administrator patient is being started on IV Lasix twice daily and will continue to monitor kidney functions closely. Replace electrolytes per protocol Continue eliquis and monitor for any signs of bleeding. Continue with Accu-Cheks before meals and at bedtime and sliding scale along with long-acting. Adjust insulins accordingly Repeat blood work in the AM The impression and plan of care has been dictated by Jocy Randle, Nurse Practitioner as directed. Dr. Jackie MD I have performed a history and physical examination and medical decision making of this patient, discussed the same with the dictator, and agree with the dictators assessment and plan as written, documented as a scribe. Based on total visit time, I have performed more than 50% of this visit. Objective - Vital Signs Vital signs: Vital Signs Temp 101.1 F H 08/08/24 08:30 Pulse 75 08/08/24 09:00 Resp 20 08/08/24 09:00 BP 93/43 08/08/24 07:30 Pulse Ox 94 L 08/08/24 09:00 FiO2 60 08/08/24 08:09 Intake & Output 08/07/24 08/08/24 08/08/24 18:59 06:59 18:59 Intake Total 0886.176 6625.264 669.213 Output Total 539 625 140 Balance 1106.586 880.264 529.213 Weight 214.7 kg Intake: IV 1053 891 253 .9NS KVO 10 Lactated Ringers 1,000 ml 975 825 225 @ 75 mls/hr IV .[id number] [facility] Rx#:[id number] Pressure Bag 78 66 18 Intake, IV Titration 402.586 394.264 396.213 Amount Diltiazem 125 mg In 78.875 Sodium Chloride 0.9% 100 ml @ 7.5 MG/HR 7.5 mls/hr IV .[id number] [facility] Rx#: [id number] Magnesium Sulfate-D5w Pmx 100 1 gm In Dextrose/Water 1 100ml.bag @ 100 mls/hr IVPB ONCE ONE Rx#: [id number] Norepinephrine 8 mg In 2.908 Sodium Chloride 0.9% 250 ml @ 0.03 MCG/KG/MIN 12. 463 mls/hr IV .[id number] [facility] Rx#:[id number] Piperacillin-Tazobactam 3 12.5 .375 gm In Sodium Chloride 0.9% 100 ml @ 25 mls/hr IVPB Q8HR [facility] Rx# :[id number] Potassium Chloride 10 meq 100 In Water For Injection 1 100ml.bag @ 100 mls/hr IVPB Q1H [facility] Rx#: [id number] fentaNYL (PF). 1,000 mcg 175.232 94.264 87.620 In Sodium Chloride 0.9% 80 ml @ 0.5 MCG/KG/HR 10. 773 mls/hr IV .[id number] [facility] Rx#:[id number] propofoL 1,000 mg In 148.479 300.000 93.185 Empty Bag 1 bag @ 20 MCG/ KG/MIN 25.855 mls/hr IV . Q3H53M [facility] Rx#:[id number] Tube Feeding 130 220 20 Other 60 Output: Gastric Drainage 55 Urine 484 625 140 Other: Voiding Method Indwelling Catheter Indwelling Catheter ABP, PAP, CO, CI - Last Documented Arterial Blood Pressure 76/43 - Labs CBC & Chem 7: 08/08/24 04:20 08/08/24 17:22 Labs: Abnormal Lab Results - Last 24 Hours (Table) 08/07/24 08/07/24 08/07/24 Range/Units 11:19 17:00 20:11 RBC (4.30-5.90) m/uL Hgb (13.0-17.5) gm/dL Hct (39.0-53.0) % MCV (80.0-100.0) fL MCH (25.0-35.0) pg MCHC (31.0-37.0) g/dL RDW (11.5-15.5) % Lymphocytes # (1.0-4.8) k/uL ABG pH (7.35-7.45) ABG pCO2 (35-45) mmHg ABG pO2 (83-108) mmHg ABG HCO3 (21-25) mmol/L ABG Total CO2 (19-24) mmol/L ABG O2 Saturation (94-97) % Hemoglobin (13.0-17.5) gm/dL Sodium (137-145) mmol/L Carbon Dioxide (22-30) mmol/L BUN (9-20) mg/dL Glucose (74-99) mg/dL POC Glucose (mg/dL) 154 H 166 H 154 H (70-110) mg/dL Calcium (8.4-10.2) mg/dL 08/07/24 08/08/24 08/08/24 Range/Units 23:32 04:20 04:20 RBC 3.24 L (4.30-5.90) m/uL Hgb 7.5 L D (13.0-17.5) gm/dL Hct 25.6 L (39.0-53.0) % MCV 79.0 L (80.0-100.0) fL MCH 23.0 L (25.0-35.0) pg MCHC 29.1 L (31.0-37.0) g/dL RDW 16.5 H (11.5-15.5) % Lymphocytes # 0.6 L (1.0-4.8) k/uL ABG pH (7.35-7.45) ABG pCO2 (35-45) mmHg ABG pO2 (83-108) mmHg ABG HCO3 (21-25) mmol/L ABG Total CO2 (19-24) mmol/L ABG O2 Saturation (94-97) % Hemoglobin (13.0-17.5) gm/dL Sodium 135 L (137-145) mmol/L Carbon Dioxide 35 H (22-30) mmol/L BUN 22 H (9-20) mg/dL Glucose 139 H (74-99) mg/dL POC Glucose (mg/dL) 152 H (70-110) mg/dL Calcium 7.9 L (8.4-10.2) mg/dL 08/08/24 08/08/24 Range/Units 04:20 05:52 RBC (4.30-5.90) m/uL Hgb (13.0-17.5) gm/dL Hct (39.0-53.0) % MCV (80.0-100.0) fL MCH (25.0-35.0) pg MCHC (31.0-37.0) g/dL RDW (11.5-15.5) % Lymphocytes # (1.0-4.8) k/uL ABG pH 7.46 H (7.35-7.45) ABG pCO2 51 H (35-45) mmHg ABG pO2 69 L (83-108) mmHg ABG HCO3 36 H (21-25) mmol/L ABG Total CO2 38 H (19-24) mmol/L ABG O2 Saturation 93.7 L (94-97) % Hemoglobin 8.3 L (13.0-17.5) gm/dL Sodium (137-145) mmol/L Carbon Dioxide (22-30) mmol/L BUN (9-20) mg/dL Glucose (74-99) mg/dL POC Glucose (mg/dL) 153 H (70-110) mg/dL Calcium (8.4-10.2) mg/dL Microbiology - Last 24 Hours (Table) 08/05/24 08:28 Blood Culture - Preliminary Blood 08/05/24 07:40 Gram Stain - Final Sputum Sputum Culture - Final
[2024-08-09 04:54] LABS: ABG Base Excess 10.7 mmol/L; ABG HCO3 35 mmol/L (21-25); ABG Oxygen Saturation 93.3 % (94-97); ABG PCO2 43 mmHg (35-45); ABG PH 7.51 (7.35-7.45); ABG PO2 64 mmHg (83-108); ABG TCO2 36 mmol/L (19-24)
[2024-08-09 05:10] LABS: Anisocytosis Slight; Basophils % (A) 0 %; Eosinophils % (A) 0 %; HCT 29.4 % (39.0-53.0); HGB 8.6 gm/dL (13.0-17.5); Hypochromasia Marked; Lymphocytes # (A) 0.6 k/uL (1.0-4.8); Lymphocytes % (A) 14 %; MCH 23.3 pg (25.0-35.0); MCHC 29.4 g/dL (31.0-37.0); MCV 79.4 fL (80.0-100.0); Mean Platelet Volume 8.3; Microcytosis Slight; Monocytes # (A) 0.2 k/uL (0-1.0); Monocytes % (A) 5 %; Neutrophils # (A) 3.6 k/uL (1.3-7.7); Neutrophils % (A) 80 %; Platelet Count 296 k/uL (150-450); RDW 16.5 % (11.5-15.5); WBC 4.5 k/uL (3.8-10.6)
[2024-08-09 05:16] LABS: Glucose,Whole Blood 234 mg/dL (70-110)
[2024-08-09 05:31] LABS: Allen Test Performed? NO
[2024-08-09 05:34] LABS: African American GFR (CKD) >90 (>60 ml/min/1.73 sqM); Anion Gap 4 mmol/L; Blood Urea Nitrogen 24 mg/dL (9-20); Carbon Dioxide 34 mmol/L (22-30); Chloride 99 mmol/L (98-107); Glucose 216 mg/dL (74-99); Magnesium 2.1 mg/dL (1.6-2.3); Non-African American GFR(CKD) >90 (>60 ml/min/1.73 sqM); Potassium 3.8 mmol/L (3.5-5.1); Sodium 137 mmol/L (137-145)
[2024-08-09] MEDS: POTASSIUM BICARBONATE/CIT AC 20 MEQ TABLET.EFF NG-TUBE SCH ×2 (05:51→15:09)
--- NOTE | 2024-08-09 08:02 | XR ---
EXAMINATION TYPE: XR chest 1V portable DATE OF EXAM: 08/09/2024 CLINICAL HISTORY: Difficulty breathing progress study. TECHNIQUE: Single AP portable semiupright view of the chest is obtained. COMPARISON: Chest x-ray from one day earlier and older studies FINDINGS: Stable endotracheal and orogastric tubes. Persistent and continued worsening left greater than right bilateral mid to lower lung opacities. Per sistent mild cardiomegaly. Old healed fractures of the posterior-lateral left fifth through seventh r ibs are redemonstrated. IMPRESSION: Mild cardiomegaly with continue worsening left greater than right mid to lower lung acute infiltrates and/or atelectasis along with central vascular congestion. [facility], , 08/09/2024 8:00 AM
[2024-08-09] MEDS: FUROSEMIDE 10 MG/ML 4 ML VIAL IV SCH (09:54)
--- NOTE | 2024-08-09 10:20 | P.PN ---
Subjective Progress Note Date: 08/09/24 On 08/08/2024, the patient is being seen in follow-up in the intensive care unit. This is a morbidly obese 63-year-old male patient who is currently intubated on the mechanical ventilator. Initially presented to us on 08/05/2024 for respiratory distress and the patient became unresponsive. He is known to have morbid obesity, COPD, chronic A-fib, CVA, hypertension hyperlipidemia. He resides in a shelter and the patient was found to be unresponsive and not breathing properly. His pulse ox was also very low and the patient was hypotensive and minimally responsive. He came into the emergency department where he was intubated and placed on the mechanical ventilator. Since admission, the patient was found to be COVID-19 positive. He had a follow-up chest x-ray today that shows significant rotation, ET tube is probably 1 cm above the damian and there is evidence of left lower lobe consolidat ion/effusion. Noted at the time of admission, he had also a right upper lobe consolidation in addition to left lower lobe consolidation. Sputum samples have been negative as collected on 08/05/2024 and blood cultures been also negative. No significant leukocytosis. The patient is currently on no antibiotics. The patient is on propofol which is running at 30 mcg/kg/min, and is also on fentanyl at 1 mcg/kg/h.. The patient is on assist-control mode of mechanical ventilation at rate of 20, tidal volume of 500, FiO2 of 60 % with a PEEP of 10. Blood gases from today shows a pH of 7.46 with a pCO2 of 51 and pO2 of 69 and this was an FiO2 of 60%. The patient is on lactated Ringer at rate of 75 cc an hour. The patient receiving vital high-protein at rate of 55 cc an hour. He remains in atrial fibrillation with rapid ventricular response. He is off Cardizem drip . He is also on metoprolol 12.5 mg twice a day and anticoagulation with Eliquis 5 mg p.o. twice a day. He is on Levemir insulin 15 units at bedtime. Earlier this morning, the patient noted to have episodic generalized tonic-clonic seizure-like activity. The patient was kept on propofol. He was given Ativan 2 mg IV push x 2 and started on Keppra. CAT scan of the brain is to follow. EEG is to follow. Neurology consultation is to follow. The patient is on lactated Ringer at rate of 75 cc an hour. Norepinephrine was also started this morning and is currently running at 0.03 mcg/kg/min. He is on EN , vital HP at 35 cc/hr On 08/09/2024, the patient is being seen for a follow-up. The patient remains intubated on the mechanical ventilator. This morning, the patient is on propofol which is running at 15 mcg/kg/min. Noted the propofol rate was gradually reduced as of yesterday and the fentanyl has been discontinued. Overnight, the patient continued to have bradycardic events and the heart rate was dropping as low as in the 40s and the rhythm remains atrial fibrillation. The patient was taken off the beta-blockers. The patient this morning is on assist-control mode of mechanical ventilation at rate of 20, tidal volume of 500, FiO2 of 60% with a PEEP of 5. Blood gas showed a pH of 7.51 with a pCO2 of 43 and pO2 of 64. Chest x-ray showing bilateral airspace disease, worse on the right essentially involving the lung bases. The patient is currently on no pressors. The patient remains on vital high-protein at rate of 45 cc an hour. No further seizure activity has been noted. The patient remains on IV Keppra. EEG showed encephalopathy without any seizure activity. Neurology on the case. The patient remains on IV Zosyn. The patient continues to have significant amount of edema in all 4 extremities and the patient remains on IV Lasix 40 mg every 12 hours. Fluid balance is +180 cc over the past 24 hours. Repeat cultures were sent and the results are still pending. The patient remains on anticoagulation with Eliquis regarding chronic atrial fibrillation. Cardizem drip is off. Metoprolol is currently on hold. Objective - Vital Signs Vital signs: Vital Signs Temp 96.9 F L 08/09/24 00:00 Pulse 44 L 08/09/24 07:00 Resp 20 08/09/24 07:00 BP 121/71 08/09/24 07:00 Pulse Ox 89 L 08/09/24 07:00 FiO2 60 08/09/24 08:23 Intake & Output 08/08/24 08/09/24 08/09/24 18:59 06:59 18:59 Intake Total 2241.325 1977.171 136 Output Total 3040 1070 50 Balance -798.675 907.171 86 Weight 214.7 kg 231.3 kg Intake: IV 1022 1092 91 .9NS KVO 50 120 10 Lactated Ringers 1,000 ml 900 900 75 @ 75 mls/hr IV .[id number] [facility] Rx#:[id number] Pressure Bag 72 72 6 Intake, IV Titration 1019.325 255.171 Amount Magnesium Sulfate-D5w Pmx 100 1 gm In Dextrose/Water 1 100ml.bag @ 100 mls/hr IVPB ONCE ONE Rx#: [id number] Norepinephrine 8 mg In 53.141 16.339 Sodium Chloride 0.9% 250 ml @ 0.03 MCG/KG/MIN 12. 463 mls/hr IV .[id number] [facility] Rx#:[id number] Piperacillin-Tazobactam 3 150 .375 gm In Sodium Chloride 0.9% 100 ml @ 25 mls/hr IVPB Q8HR [facility] Rx# :[id number] Potassium Chloride 10 meq 200 In Water For Injection 1 100ml.bag @ 100 mls/hr IVPB Q1H [facility] Rx#: [id number] fentaNYL (PF). 1,000 mcg 220.657 In Sodium Chloride 0.9% 80 ml @ 0.5 MCG/KG/HR 10. 773 mls/hr IV .Q9H17M [facility] Rx#:[id number] propofoL 1,000 mg In 295.527 238.832 Empty Bag 1 bag @ 20 MCG/ KG/MIN 25.855 mls/hr IV . Q3H53M [facility] Rx#:[id number] Tube Feeding 200 540 45 Other 90 Output: Urine 3040 1070 50 Other: Voiding Method Indwelling Catheter Indwelling Catheter ABP, PAP, CO, CI - Last Documented Arterial Blood Pressure 113/64 - Exam No acute distress, the patient is sedated, and, comfortable intubated on the [facility] ventilator. Orogastric and orotracheal tube are both in place. The patient is morbidly obese with a body mass index of 64.2. HEENT examination is grossly unremarkable. Mucous membranes are moist. No oral lesions. Neck supple. Full range of motion. No adenopathy thyromegaly or neck vein distention. Cardiovascular examination reveals irregular rhythm consistent with atrial fibrillation. S1-S2 normal. No S3 or S4. No discernible murmur noted. Heart sounds are very distant. The patient is bradycardic, still in atrial fibrillation. Lungs reveal mostly clear breath sounds. Scattered rhonchi and crackles are noted. No wheezes. Breath sounds equal bilaterally. Abdomen is soft, but very obese. No bowel sounds. Extremities are intact. There is significant amount of edema lower extremities bilaterally, diminished pulses, no cyanosis or clubbing Skin is without rash or lesion. Neurologic examination cannot be evaluated at this time. The patient is sedated on propofol. - Labs CBC & Chem 7: 08/09/24 04:50 08/09/24 04:50 Labs: Abnormal Lab Results - Last 24 Hours (Table) 08/08/24 08/08/24 08/08/24 Range/Units 12:16 17:26 23:17 RBC (4.30-5.90) m/uL Hgb (13.0-17.5) gm/dL Hct (39.0-53.0) % MCV (80.0-100.0) fL MCH (25.0-35.0) pg MCHC (31.0-37.0) g/dL RDW (11.5-15.5) % Lymphocytes # (1.0-4.8) k/uL ABG pH (7.35-7.45) ABG pO2 (83-108) mmHg ABG HCO3 (21-25) mmol/L ABG Total CO2 (19-24) mmol/L ABG O2 Saturation (94-97) % Hemoglobin (13.0-17.5) gm/dL Carbon Dioxide (22-30) mmol/L BUN (9-20) mg/dL Glucose (74-99) mg/dL POC Glucose (mg/dL) 184 H 230 H 228 H (70-110) mg/dL Calcium (8.4-10.2) mg/dL 08/09/24 08/09/24 08/09/24 Range/Units 04:50 04:50 04:50 RBC 3.70 L (4.30-5.90) m/uL Hgb 8.6 L (13.0-17.5) gm/dL Hct 29.4 L (39.0-53.0) % MCV 79.4 L (80.0-100.0) fL MCH 23.3 L (25.0-35.0) pg MCHC 29.4 L (31.0-37.0) g/dL RDW 16.5 H (11.5-15.5) % Lymphocytes # 0.6 L (1.0-4.8) k/uL ABG pH 7.51 H (7.35-7.45) ABG pO2 64 L (83-108) mmHg ABG HCO3 35 H (21-25) mmol/L ABG Total CO2 36 H (19-24) mmol/L ABG O2 Saturation 93.3 L (94-97) % Hemoglobin 8.5 L (13.0-17.5) gm/dL Carbon Dioxide 34 H (22-30) mmol/L BUN 24 H (9-20) mg/dL Glucose 216 H (74-99) mg/dL POC Glucose (mg/dL) (70-110) mg/dL Calcium 8.0 L (8.4-10.2) mg/dL 08/09/24 Range/Units 05:14 RBC (4.30-5.90) m/uL Hgb (13.0-17.5) gm/dL Hct (39.0-53.0) % MCV (80.0-100.0) fL MCH (25.0-35.0) pg MCHC (31.0-37.0) g/dL RDW (11.5-15.5) % Lymphocytes # (1.0-4.8) k/uL ABG pH (7.35-7.45) ABG pO2 (83-108) mmHg ABG HCO3 (21-25) mmol/L ABG Total CO2 (19-24) mmol/L ABG O2 Saturation (94-97) % Hemoglobin (13.0-17.5) gm/dL Carbon Dioxide (22-30) mmol/L BUN (9-20) mg/dL Glucose (74-99) mg/dL POC Glucose (mg/dL) 234 H (70-110) mg/dL Calcium (8.4-10.2) mg/dL Microbiology - Last 24 Hours (Table) 08/08/24 12:00 Gram Stain - Preliminary Sputum 08/05/24 08:28 Blood Culture - Preliminary Blood Assessment and Plan Plan: Acute hypoxic respiratory failure, intubated on the mechanical ventilator. Acute hypoxic respiratory failure is likely multifactorial. The patient has multifocal airspace disease with COVID-19 pneumonia. Rule out superimposed bacterial infection in addition. Remains intubated on mechanical ventilator. Patient was intubated on 08/05/2024. He is a shelter resident. Acute coronavirus infection infection and the patient tested positive at the time of admission on 08/05/2024 Chronic atrial fibrillation, currently bradycardic and still in atrial fib rillation, off Cardizem drip and off metoprolol and still anticoagulated with Eliquis Morbid obesity Acute leukocytosis, improved New onset seizure activity, started on IV Keppra. No further seizure activity has been noted. EEG was negative for any ongoing seizure activity. History of CVA. History of hyperlipidemia. History of hypertension. History of obstructive sleep apnea syndrome. Obesity hypoventilation syndrome with BMI of 63.9 also contributing to his hypercapnia/chronic CHF with preserved LV function/diastolic heart failure Diabetes mellitus type 2, maintained on Levemir insulin BPH Chronic metabolic alkalosis,, secondary to chronic hypercapnia History of iron deficiency anemia Polysubstance abuse with previous drug screen showing cocaine and benzodiazepines History of right diabetic foot infection with previous I&D back in July 2023 and polymicrobial growth. Plan: Titrate the propofol, currently on 15 mcg/kg/min Continue ventilator support, no changes today Continue Decadron 6 mg IV every 24 hours Continue empiric antibiotic coverage with IV Zosyn as the patient is a shelter resident Lasix 40 mg IV and changed the dosing to every 8 hours IV fluids to KVO check sputum Cx, results are still pending Unable to do a CAT scan of the chest due to his morbid obese body habitus CAT scan of the brain, no contrast was completed yesterday it was negative for any acute abnormalities Continue IV Keppra Management of atrial fibrillation and the patient remains off Cardizem drip and off metoprolol and Eliquis Enteral feeding for nutritional support with vital HP We will continue to follow. Condition remains critical. Critical care evaluation that was done more than 30 minutes Time with Patient: Greater than 30
[2024-08-09 11:57] LABS: Glucose,Whole Blood 231 mg/dL (70-110)
--- NOTE | 2024-08-09 14:31 | P.PN ---
Subjective History of Present Illness: The patient is a 63-year-old male with known history of morbid obesity, permanent atrial fibrillation, prior history of CVA, hypertension and hyperlipidemia [facility] with progressive dyspnea and decreased mentation, he was found to be unresponsive and was intubated. He was diagnosed with COVID infection. He remains intubated. Cardiology consultation was requested because of the atrial fibrillation. The patient has a known permanent atrial fibrillation, anticoagulated. His ventricular rate was stable on presentation with episode of slow ventricular response. Yesterday he became tachycardic and was started on IV Cardizem. He is stable at this time. He has underwent cardiac catheterization in 2012 and was found to have mild to moderate obstructive disease. His left ventricular systolic function was preserved in 2022. He is on no vasopressors and his urinary output has been stable. His troponin was normal on admission and his NT proBNP was 3320. He has a history of hypertension and diabetes. Medications: As an outpatient he is on Eliquis 5 mg twice a day, losartan 12.5 mg daily, metoprolol tartrate 12.5 mg twice a day, insulin, Lasix 40 mg daily, MiraLAX, Flomax, gabapentin 08/08 Patient seen and examined. Patient had seizure-like activity and therefore taken for CT brain this morning which showed no significant change. EEG showing moderate to severe background slowing. He was more tachycardic on transfer however after getting patient situated has been in the bradycardic 40s to 50s A. fib. He did receive his metoprolol 12.5 twice a day. Remains on low dose norepinephrine. 08/09 Patient had more significant bradycardia with heart rates in the 30s and 40s however appears somewhat related to sedation and the propofol was weaned and heart rates came up morning of the 50s. His Lasix was increased to 40 mg IV every 8 hours. Additionally getting tube feeds. Remains on ventilator requiring increase in PEEP and currently on PEEP 14 and FiO2 80%. Physical Examination: 63-year-old male, intubated and sedated, morbidly obese, Head: Normocephalic. Eyes: Sclerae nonicteric. Neck: Good carotid upstroke, no bruit, . Lungs: Clear to auscultation anteriorly. Heart: Irregular rate and rhythm, S1-S2, no S3, no rub. No murmur. Abdomen: Soft obese, positive bowel sounds no organomegaly. Extremities: +2 edema. Impression: 1. Respiratory failure with COVID infection, possible aspiration pneumonia 2. Permanent atrial fibrillation 3. History of CVA 4. History of hypertension 5. History of diabetes 6. Morbid obesity 7. Obstructive sleep apnea 8. Bradycardia, asymptomatic 9. Acute on chronic diastolic heart failure Plan: Some component of heart failure as well and continue with diuresis. Avoid oversedation which appears to be causing some of his bradycardia. May have some component of tachybradycardia syndrome. Echo showing preserved EF. Wean ventilator as able. Objective - Vital Signs Vital signs: Vital Signs Temp 98.4 F 08/09/24 12:00 Pulse 66 08/09/24 13:30 Resp 20 08/09/24 13:30 BP 138/98 08/09/24 13:30 Pulse Ox 92 L 08/09/24 13:30 FiO2 80 08/09/24 12:30 Intake & Output 08/08/24 08/09/24 08/09/24 18:59 06:59 18:59 Intake Total 2241.325 1977.171 862 Output Total 3040 1070 1350 Balance -798.675 907.171 -488 Weight 214.7 kg 231.3 kg Intake: IV 1022 1092 272 .9NS KVO 50 120 110 Lactated Ringers 1,000 ml 900 900 135 @ 75 mls/hr IV .[id number] [facility] Rx#:[id number] Pressure Bag 72 72 27 Intake, IV Titration 1019.325 255.171 200 Amount Magnesium Sulfate-D5w Pmx 100 1 gm In Dextrose/Water 1 100ml.bag @ 100 mls/hr IVPB ONCE ONE Rx#: [id number] Norepinephrine 8 mg In 53.141 16.339 Sodium Chloride 0.9% 250 ml @ 0.03 MCG/KG/MIN 12. 463 mls/hr IV .[id number] [facility] Rx#:[id number] Piperacillin-Tazobactam 3 150 100 .375 gm In Sodium Chloride 0.9% 100 ml @ 25 mls/hr IVPB Q8HR [facility] Rx# :[id number] Potassium Chloride 10 meq 200 In Water For Injection 1 100ml.bag @ 100 mls/hr IVPB Q1H [facility] Rx#: [id number] fentaNYL (PF). 1,000 mcg 220.657 In Sodium Chloride 0.9% 80 ml @ 0.5 MCG/KG/HR 10. 773 mls/hr IV .Q9H17M [facility] Rx#:[id number] propofoL 1,000 mg In 295.527 238.832 100 Empty Bag 1 bag @ 20 MCG/ KG/MIN 25.855 mls/hr IV . Q3H53M [facility] Rx#:[id number] Tube Feeding 200 540 360 Other 90 30 Output: Urine 3040 1070 1350 Other: Voiding Method Indwelling Catheter Indwelling Catheter ABP, PAP, CO, CI - Last Documented Arterial Blood Pressure 130/70 - Labs CBC & Chem 7: 08/09/24 04:50 08/09/24 12:15 Labs: Abnormal Lab Results - Last 24 Hours (Table) 08/08/24 08/08/24 08/09/24 Range/Units 17:26 23:17 04:50 RBC 3.70 L (4.30-5.90) m/uL Hgb 8.6 L (13.0-17.5) gm/dL Hct 29.4 L (39.0-53.0) % MCV 79.4 L (80.0-100.0) fL MCH 23.3 L (25.0-35.0) pg MCHC 29.4 L (31.0-37.0) g/dL RDW 16.5 H (11.5-15.5) % Lymphocytes # 0.6 L (1.0-4.8) k/uL ABG pH (7.35-7.45) ABG pO2 (83-108) mmHg ABG HCO3 (21-25) mmol/L ABG Total CO2 (19-24) mmol/L ABG O2 Saturation (94-97) % Hemoglobin (13.0-17.5) gm/dL Carbon Dioxide (22-30) mmol/L BUN (9-20) mg/dL Glucose (74-99) mg/dL POC Glucose (mg/dL) 230 H 228 H (70-110) mg/dL Calcium (8.4-10.2) mg/dL 08/09/24 08/09/24 08/09/24 Range/Units 04:50 04:50 05:14 RBC (4.30-5.90) m/uL Hgb (13.0-17.5) gm/dL Hct (39.0-53.0) % MCV (80.0-100.0) fL MCH (25.0-35.0) pg MCHC (31.0-37.0) g/dL RDW (11.5-15.5) % Lymphocytes # (1.0-4.8) k/uL ABG pH 7.51 H (7.35-7.45) ABG pO2 64 L (83-108) mmHg ABG HCO3 35 H (21-25) mmol/L ABG Total CO2 36 H (19-24) mmol/L ABG O2 Saturation 93.3 L (94-97) % Hemoglobin 8.5 L (13.0-17.5) gm/dL Carbon Dioxide 34 H (22-30) mmol/L BUN 24 H (9-20) mg/dL Glucose 216 H (74-99) mg/dL POC Glucose (mg/dL) 234 H (70-110) mg/dL Calcium 8.0 L (8.4-10.2) mg/dL 08/09/24 Range/Units 11:55 RBC (4.30-5.90) m/uL Hgb (13.0-17.5) gm/dL Hct (39.0-53.0) % MCV (80.0-100.0) fL MCH (25.0-35.0) pg MCHC (31.0-37.0) g/dL RDW (11.5-15.5) % Lymphocytes # (1.0-4.8) k/uL ABG pH (7.35-7.45) ABG pO2 (83-108) mmHg ABG HCO3 (21-25) mmol/L ABG Total CO2 (19-24) mmol/L ABG O2 Saturation (94-97) % Hemoglobin (13.0-17.5) gm/dL Carbon Dioxide (22-30) mmol/L BUN (9-20) mg/dL Glucose (74-99) mg/dL POC Glucose (mg/dL) 231 H (70-110) mg/dL Calcium (8.4-10.2) mg/dL Microbiology - Last 24 Hours (Table) 08/08/24 12:00 Gram Stain - Preliminary Sputum Sputum Culture - Preliminary 08/05/24 08:28 Blood Culture - Preliminary Blood
[2024-08-09] MEDS ORDERED: FUROSEMIDE 10 MG/ML 4 ML VIAL IV SCH (16:00)
[2024-08-09 17:53] LABS: Glucose,Whole Blood 256 mg/dL (70-110)
--- NOTE | 2024-08-09 18:47 | P.PN ---
Subjective Progress Note Date: 08/09/24 Patient in the intensive care unit currently intubated and sedated on the mechanical ventilator. Patient's chest x-ray today does reveal worsening CHF. He is significantly edematous. Remains sedated with IV fentanyl and propofol. He continues on IV Zosyn. Patient was started on enteral feedings today. blood sugars are elevated in the 200s. 08/07/2024 Patient was evaluated in follow-up in the medical floor he is currently intubated and sedated on the mechanical ventilator. Patient had gone into atrial fibrillation with rapid ventricular rate overnight requiring IV Cardizem. He has been since transition to oral metoprolol with heart rate better controlled today. He does have a noted history of atrial fibrillation was resumed on his oral Eliquis yesterday. Patient currently has LR running at 75 mL/h he does remain quite edematous mostly in his lower extremities. Patient was noted to have a small amount of yellow bile emesis there has been no residual with his tube feedings and they are continued at a slow rate today of 10 mL/h. He is febrile today temperature of 100.8. An abdominal x-ray was unable to be completed due to patient's body habitus and he is unable to be transported down for x-ray at this time. 08/08/2024 Patient is seen in follow-up in the ICU and overnight placed on mechanical ventilation as patient was noted to have what appeared to be seizure-like activity with no history of seizures and neurology was consulted. Patient was placed on mechanical ventilation currently with an FiO2 of 60% and PEEP is 10 with pulmonary wood stainer following. Patient remains with low-grade temps and also started on Keppra and is maintained on antibiotics. Cardiology following as well maintained on oral anticoagulation and has been having heart rates in the 40s. Continued on low-dose metoprolol and will continue to monitor closely. Per nursing staff patient also requiring low-dose Levophed and has been started on 40 of IV Lasix daily due to significant swelling. Will follow-up on repeat labs and continue to monitor closely. 08/09/2024 Patient is seen in follow-up with multiple consultations following including pulmonary, neurology, cardiology, and infectious disease consulted. Patient underwent EEG which was abnormal with no epileptiform discharges noted. Patient is continued on Keppra for now. Heart rates in the low 40s although per nursing staff slightly improved this afternoon and is being monitored closely with cardiology following. Patient is continued on Lasix for diuresis with significant volume overload. Wean pressors as tolerated and follow-up on repeat labs. Patient's blood sugars have been more elevated and possible steroid effect will increase long-acting and also Accu-Cheks before meals and at bedtime as well as sliding scale. Adjust accordingly. Unable to complete review of systems as patient is currently intubated and sed ated PHYSICAL EXAMINATION: GENERAL: The patient is intubated and sedated. He is morbidly obese, well- developed, elderly appearing, extremely edematous of upper and lower extremities and body habitus, ill-appearing. FiO2 increased at 60% with a PEEP of 15 HEENT: Pupils are round and equally reacting to light. EOMI. No scleral icterus. No conjunctival pallor. Normocephalic, atraumatic. No pharyngeal erythema. No thyromegaly. CARDIOVASCULAR: S1 and S2 muffled, irregular PULMONARY: Diminished breath sounds bilaterally otherwise chest is clear to auscultation, no wheezing , no crackles. ABDOMEN: Soft, obese, nontender, nondistended, normoactive bowel sounds. No palpable organomegaly. Kelly catheter in place MUSCULOSKELETAL: No joint swelling or deformity. EXTREMITIES: No cyanosis, clubbing, continues with significant lower extremity edema bilaterally pitting right lower leg superficial wound with dressing in place changed yesterday NEUROLOGICAL: Not following commands. Unable to completely assess as patient is intubated and maintained on sedation SKIN: No rashes. no petechiae. Assessment: Acute hypoxic respiratory failure requiring intubation on admission, currently on mechanical ventilation COVID infection and possible pneumonia, concerns for aspiration pneumonia Possible seizure like activity, new onset, EEG was abnormal although not showing any epileptiform discharges, continued on Keppra for now with neurology following Possible acute COPD exacerbation versus obesity hypoventilation syndrome Possible bacterial pneumonia, healthcare associated with right upper lobe and left lower lobe infiltrates Severe sepsis requiring pressor support Acute on chronic diastolic heart failure with preserved EF A-fib and RVR, present on admission now with slow ventricular rate dropping into the 30s. Patient heart rate slightly improving and will continue current regimen per cardiology Right leg wound with recent cultures showing enterococcus faecalis, ESBL and Providencia Rettgeri Diabetes Mellitus type 2, uncontrolled with hyperglycemia Morbid obesity with a BMI of 64.2 Chronic anemia Lactic acidemia/acidosis, improved GI prophylaxis DVT prophylaxis Full Code Plan: Continue with antibiotic in the form of Zosyn with infectious disease following. Highly concerned for aspiration pneumonia. Continue with IV fluid Ringer lactate decreased to 75 mls/hr. Continue with intubation and mechanical ventilation. FiO2 is 60% with a PEEP being increased to 15 and desats quickly per nursing staff. Wean as tolerated Continue enteral feedings, tube feeds were placed on hold as patient had a seizure-like episode last night and had been aspirating on tube feeds. Continue with aspiration precautions and head of the bed elevated 45 degrees at all times and monitor closely for residuals Patient has not had a bowel movement documented will add bowel regimen and also daily suppositories. Abdominal x-ray was ordered although patient continues to bradycardia down into the 30s when attempting to lie somewhat flat and unable to perform at this time or bedside as his body habitus is quite large. Patient does not have history of seizures and was given a dose of Keppra and neurology following underwent EEG which was abnormal although not showing any epileptiform discharges Continue cardiac telemetry with cardiology following. Continued on low-dose metoprolol Per pulmonary wood stainer patient has been started on IV Lasix and is being increased to every 8 hours. And will continue to monitor kidney functions closely. Replace electrolytes per protocol Continue eliquis and monitor for any signs of bleeding. Continue with Accu-Cheks before meals and at bedtime and sliding scale along with long-acting. Adjust insulins accordingly. Will increase long-acting insul in to twice daily Repeat blood work in the AM Overall prognosis is guarded The impression and plan of care has been dictated by Jocy Randle, Nurse Practitioner as directed. Dr. Jackie MD I have performed a history and physical examination and medical decision making of this patient, discussed the same with the dictator, and agree with the dictators assessment and plan as written, documented as a scribe. Based on total visit time, I have performed more than 50% of this visit. Objective - Vital Signs Vital signs: Vital Signs Temp 97.2 F L 08/09/24 08:00 Pulse 45 L 08/09/24 08:00 Resp 20 08/09/24 08:00 BP 121/71 08/09/24 07:00 Pulse Ox 94 L 08/09/24 08:00 FiO2 60 08/09/24 08:23 Intake & Output 0108/09/24 08/09/24 18:59 06:59 18:59 Intake Total 2241.325 1977.171 136 Output Total 3040 1070 50 Balance -798.675 907.171 86 Weight 214.7 kg 231.3 kg Intake: IV 1022 1092 91 .9NS KVO 50 120 10 Lactated Ringers 1,000 ml 900 900 75 @ 75 mls/hr IV .[id number] [facility] Rx#:[id number] Pressure Bag 72 72 6 Intake, IV Titration 1019.325 255.171 Amount Magnesium Sulfate-D5w Pmx 100 1 gm In Dextrose/Water 1 100ml.bag @ 100 mls/hr IVPB ONCE ONE Rx#: [id number] Norepinephrine 8 mg In 53.141 16.339 Sodium Chloride 0.9% 250 ml @ 0.03 MCG/KG/MIN 12. 463 mls/hr IV .[id number] [facility] Rx#:[id number] Piperacillin-Tazobactam 3 150 .375 gm In Sodium Chloride 0.9% 100 ml @ 25 mls/hr IVPB Q8HR [facility] Rx# :[id number] Potassium Chloride 10 meq 200 In Water For Injection 1 100ml.bag @ 100 mls/hr IVPB Q1H [facility] Rx#: [id number] fentaNYL (PF). 1,000 mcg 220.657 In Sodium Chloride 0.9% 80 ml @ 0.5 MCG/KG/HR 10. 773 mls/hr IV .Q9H17M [facility] Rx#:[id number] propofoL 1,000 mg In 295.527 238.832 Empty Bag 1 bag @ 20 MCG/ KG/MIN 25.855 mls/hr IV . Q3H53M [facility] Rx#:[id number] Tube Feeding 200 540 45 Other 90 Output: Urine 3040 1070 50 Other: Voiding Method Indwelling Catheter Indwelling Catheter ABP, PAP, CO, CI - Last Documented Arterial Blood Pressure 142/80 - Labs CBC & Chem 7: 08/09/24 04:50 08/09/24 17:58 Labs: Abnormal Lab Results - Last 24 Hours (Table) 08/08/24 08/08/24 08/08/24 Range/Units 12:16 17:26 23:17 RBC (4.30-5.90) m/uL Hgb (13.0-17.5) gm/dL Hct (39.0-53.0) % MCV (80.0-100.0) fL MCH (25.0-35.0) pg MCHC (31.0-37.0) g/dL RDW (11.5-15.5) % Lymphocytes # (1.0-4.8) k/uL ABG pH (7.35-7.45) ABG pO2 (83-108) mmHg ABG HCO3 (21-25) mmol/L ABG Total CO2 (19-24) mmol/L ABG O2 Saturation (94-97) % Hemoglobin (13.0-17.5) gm/dL Carbon Dioxide (22-30) mmol/L BUN (9-20) mg/dL Glucose (74-99) mg/dL POC Glucose (mg/dL) 184 H 230 H 228 H (70-110) mg/dL Calcium (8.4-10.2) mg/dL 08/09/24 08/09/24 08/09/24 Range/Units 04:50 04:50 04:50 RBC 3.70 L (4.30-5.90) m/uL Hgb 8.6 L (13.0-17.5) gm/dL Hct 29.4 L (39.0-53.0) % MCV 79.4 L (80.0-100.0) fL MCH 23.3 L (25.0-35.0) pg MCHC 29.4 L (31.0-37.0) g/dL RDW 16.5 H (11.5-15.5) % Lymphocytes # 0.6 L (1.0-4.8) k/uL ABG pH 7.51 H (7.35-7.45) ABG pO2 64 L (83-108) mmHg ABG HCO3 35 H (21-25) mmol/L ABG Total CO2 36 H (19-24) mmol/L ABG O2 Saturation 93.3 L (94-97) % Hemoglobin 8.5 L (13.0-17.5) gm/dL Carbon Dioxide 34 H (22-30) mmol/L BUN 24 H (9-20) mg/dL Glucose 216 H (74-99) mg/dL POC Glucose (mg/dL) (70-110) mg/dL Calcium 8.0 L (8.4-10.2) mg/dL 08/09/24 Range/Units 05:14 RBC (4.30-5.90) m/uL Hgb (13.0-17.5) gm/dL Hct (39.0-53.0) % MCV (80.0-100.0) fL MCH (25.0-35.0) pg MCHC (31.0-37.0) g/dL RDW (11.5-15.5) % Lymphocytes # (1.0-4.8) k/uL ABG pH (7.35-7.45) ABG pO2 (83-108) mmHg ABG HCO3 (21-25) mmol/L ABG Total CO2 (19-24) mmol/L ABG O2 Saturation (94-97) % Hemoglobin (13.0-17.5) gm/dL Carbon Dioxide (22-30) mmol/L BUN (9-20) mg/dL Glucose (74-99) mg/dL POC Glucose (mg/dL) 234 H (70-110) mg/dL Calcium (8.4-10.2) mg/dL Microbiology - Last 24 Hours (Table) 08/08/24 12:00 Gram Stain - Preliminary Sputum 08/05/24 08:28 Blood Culture - Preliminary Blood
[2024-08-09 20:26] LABS: Glucose,Whole Blood 251 mg/dL (70-110)
[2024-08-09] MEDS: INSULIN DETEMIR (LEVEMIR) 100 UNIT/ML SYR SQ SCH (20:30)
[2024-08-09] MEDS: INSULIN ASPART (NovoLOG) 100 UNIT/ML VIAL SQ SCH (20:30)
[2024-08-09] MEDS: bisacodyL 10 MG SUPP RECTAL SCH (20:42)
[2024-08-09] MEDS: polyethylene glycoL 3350 17 GM POWD.PACK PO SCH (20:55)
--- NOTE | 2024-08-09 22:21 | P.CONS ---
History of Present Illness - Reason for Consult Consult date: 08/09/24 Aspiration pneumonia Requesting physician: Jocy Randle - Chief Complaint Unresponsive and shortness of breath on admission - History of Present Illness Patient is a 63-year-old male with a past medical history significant for diabetes mellitus hypertension hyperlipidemia atrial fibrillation sleep apnea patient has been brought to the hospital about 5 days ago in respiratory distress patient was seen normal at 4:30 AM subsequently noticed by the [facility] staff at 5:30 AM to be unresponsive patient was noted to be hypoxic with O2 sats is 82% patient was subsequently brought to the hospital and got intubated and admitted to the ICU patient on presentation to the hospital was running a fever of 99.7 and the patient has been febrile until yesterday morning patient also requiring low-dose pressor support yesterday patient remains to be on ventilator and FiO2 is currently at 80% but he was at 60% yesterday no significant purulent secretions through the ET vomiting diarrhea any changes reported by the nursing staff patient did have white count of 12.5 on admission with a white count of 4.5 this morning creatinine 0.82 electrolytes has been normal liver isms are normal he did tested positive for COVID-19 blood cultures currently pending repeat sputum from yesterday pending patient did have chest x- ray mild cardiomegaly with worsening left greater than right mid to lower lung infiltrate patient has been started on Zosyn infectious was consulted today concerning for possible aspiration pneumonia most information has been extracted from review the chart 20 minutes. As the patient is currently been reported history and no family member at the bedside Review of Systems Positive points has been mentioned in HPI complete review could not be obtained because of his underlying mental status Past Medical History Past Medical History: Atrial Fibrillation, Diabetes Mellitus, GERD/Reflux, Hyperlipidemia, Hypertension, Sleep Apnea/CPAP/BIPAP Additional Past Medical History / Comment(s): diabetic neuropathy, "leaky valve", frequent foot & ankle swelling, USES C-PAP, shortness of breath, unable to walk distances. rhabdo History of Any Multi-Drug Resistant Organisms: CRE, ESBL, Other MDRO Year Discovered:: 07/03/24 - [employer]PERATOR-CRE; 07/28/23-ESBL MDRO Source:: [id number]; ESBL-Right Foot Past Surgical History: Bariatric Surgery, Hernia Repair Additional Past Surgical History / Comment(s): GASTRIC SLEEVE. EGD Past Anesthesia/Blood Transfusion Reactions: No Reported Reaction, Motion Sickness Past Psychological History: Anxiety Smoking Status: Former smoker Past Alcohol Use History: None Reported Additional Past Alcohol Use History / Comment(s): QUIT SMOKING 2004 Past Drug Use History: None Reported Additional Drug Use History / Comment(s): positive for cocaine and benzos on tox screen 07/26/23. - Past Family History Mother Family Medical History: Cancer Additional Family Medical History / Comment(s): Father Family Medical History: Hypertension Additional Family Medical History / Comment(s): Brother(s) Family Medical History: Asthma, COPD, Hypertension Medications and Allergies Home Medications Medication Instructions Recorded Confirmed Type Omeprazole [PriLOSEC] 20 mg PO DAILY 06/27/20 08/05/24 History Cholecalciferol [Vitamin D3 (25 25 mcg PO DAILY 05/25/23 08/05/24 History Mcg = 1000 Iu)] Insulin Lispro [humaLOG Kwikpen] See Protocol SQ ACHS 05/25/23 08/05/24 History Metoprolol Tartrate [Lopressor] 12.5 mg PO BID 05/25/23 08/05/24 History polyethylene glycoL 3350 [Miralax] 17 gm PO DAILY PRN 05/25/23 08/05/24 History Furosemide [Lasix] 40 mg PO DAILY 07/25/23 08/05/24 History Naloxone HCl [Narcan] 4 mg NASAL ONCE PRN 07/25/23 08/05/24 History Gabapentin 800 mg PO Q8H 08/02/23 08/05/24 History Albuterol Nebulized [Ventolin 2.5 mg INHALATION RT-Q6H PRN 07/03/24 08/05/24 History Nebulized] Apixaban [Eliquis] 5 mg PO BID 07/03/24 08/05/24 History Dextrose Chew [Glucose Chew Tab] 12 gm PO DAILY PRN 07/03/24 08/05/24 History Dextrose Gel [Glutose 15 Gel] 15 gm PO DAILY PRN 07/03/24 08/05/24 History Folic Acid 0.8 mg PO HS 07/03/24 08/05/24 History Insulin Glargine,Hum.rec.anlog 20 units SQ DAILY 07/03/24 08/05/24 History [Lantus Solostar Pen] Lactulose 20 gm PO DAILY 07/03/24 08/05/24 History Losartan [Cozaar] 12.5 mg PO DAILY 07/03/24 08/05/24 History Magnesium Oxide [Mag-Ox] 400 mg PO HS 07/03/24 08/05/24 History Naloxone 0.4mg/Ml Injection 0.4 mg IV ONCE PRN 07/03/24 08/05/24 History Tamsulosin [Flomax] 0.4 mg PO DAILY 07/03/24 08/05/24 History Acetaminophen [Tylenol 8 Hour] 650 mg PO Q6H PRN 08/05/24 08/05/24 History Ciprofloxacin HCl [Cipro] 500 mg PO Q12HR 08/05/24 08/05/24 History HYDROcodone/APAP 10-325MG [[place] 1 tab PO Q6HR PRN 08/05/24 08/05/24 History 10-325] Ipratropium-Albuterol Nebulize 3 ml INHALATION RT-Q4H PRN 08/05/24 08/05/24 History [Duoneb 0.5 mg-3 mg/3 ml Soln] L.acidoph,Paracasei, B.lactis 1 cap PO DAILY 08/05/24 08/05/24 History [Probiotic] Allergies Allergy/AdvReac Type Severity Reaction Status Date / Time latex Allergy Rash/Hives Verified 08/05/24 09:11 Physical Exam Vitals: Vital Signs Temp Pulse Resp BP Pulse Ox FiO2 08/09/24 14:30 56 L 20 155/100 96 08/09/24 14:00 58 L 20 138/98 92 L 08/09/24 13:30 66 20 138/98 92 L 08/09/24 13:00 64 20 91 L 08/09/24 12:30 88 13 144/96 95 80 08/09/24 12:00 98.4 F 61 20 93 L 80 08/09/24 11:31 80 08/09/24 11:30 75 20 85 L 08/09/24 11:27 60 08/09/24 11:00 75 20 90 L 60 08/09/24 10:30 80 20 160/115 89 L 08/09/24 10:00 77 20 168/105 90 L 08/09/24 09:30 80 20 158/131 91 L 08/09/24 09:00 67 16 148/93 94 L 08/09/24 08:23 60 08/09/24 08:00 97.2 F L 45 L 20 94 L 60 08/09/24 07:00 44 L 20 121/71 89 L 08/09/24 06:00 55 L 20 145/93 93 L 08/09/24 05:00 60 20 94 L 08/09/24 04:00 52 L 20 128/89 92 L 60 08/09/24 03:44 60 08/09/24 03:00 40 L 20 120/83 93 L 08/09/24 02:00 43 L 20 92 L 08/09/24 01:00 45 L 20 92 L 08/09/24 00:37 60 08/09/24 00:29 45 L 20 116/78 91 L 08/09/24 00:00 96.9 F L 48 L 20 105/68 92 L 60 08/08/24 23:00 44 L 20 156/88 08/08/24 22:30 43 L 20 96 08/08/24 22:00 42 L 20 92 L 08/08/24 21:30 53 L 20 92 L 08/08/24 21:00 48 L 20 93/43 92 L 08/08/24 20:53 60 08/08/24 20:30 42 L 20 95 08/08/24 20:00 97.1 F L 42 L 20 93/43 94 L 60 08/08/24 19:30 41 L 20 93/43 96 08/08/24 19:00 54 L 20 93 L 08/08/24 18:30 51 L 20 92 L 08/08/24 18:00 48 L 20 94 L 08/08/24 17:30 44 L 20 96 08/08/24 17:00 42 L 20 93 L 08/08/24 16:30 60 20 92 L 08/08/24 16:00 97.3 F L 52 L 20 90 L 50 08/08/24 15:47 60 Intake and Output 08/09/24 08/09/24 08/09/24 06:59 14:59 22:59 Intake Total 1335.949 862 Output Total 765 1350 Balance 570.949 -488 Intake: IV 728 272 .9NS KVO 80 110 Lactated Ringers 1,000 ml 600 135 @ 75 mls/hr IV .[id number] FABIENNE Rx#:[id number] Pressure Bag 48 27 Intake, IV Titration 187.949 200 Amount Norepinephrine 8 mg In 16.339 Sodium Chloride 0.9% 250 ml @ 0.03 MCG/KG/MIN 12. 463 mls/hr IV .[id number] FABIENNE Rx#:[id number] Piperacillin-Tazobactam 3 100 .375 gm In Sodium Chloride 0.9% 100 ml @ 25 mls/hr IVPB Q8HR FABIENNE Rx# :[id number] propofoL 1,000 mg In 171.610 100 Empty Bag 1 bag @ 20 MCG/ KG/MIN 25.855 mls/hr IV . Q3H53M FABIENNE Rx#:[id number] Tube Feeding 360 360 Other 60 30 Output: Urine 765 1350 Other: Voiding Method Indwelling Catheter Weight 231.3 kg ABP, PAP, CO, CI - Last 8 Hours Arterial Blood Pressure 147/85 Arterial Blood Pressure 132/74 Arterial Blood Pressure 130/70 Arterial Blood Pressure 119/69 Arterial Blood Pressure 146/98 Arterial Blood Pressure 120/70 Arterial Blood Pressure 124/70 Arterial Blood Pressure 156/86 Arterial Blood Pressure 150/100 Arterial Blood Pressure 152/96 Arterial Blood Pressure 142/80 GENERAL DESCRIPTION: Middle-age male intubated on the [facility] HEENT: Shows Pallor , no scleral icterus. Oral mucous membrane is dry. NECK: Trachea central, no thyromegaly. LUNGS: Unlabored breathing. Decreased breath sounds at the base HEART: S1, S2, regular rate and rhythm. No loud murmur ABDOMEN: Soft, no tenderness , guarding or rigidity, no organomegaly EXTREMITIES: No edema of feet. SKIN: No rash, no masses palpable. NEUROLOGICAL: The patient is sedated on the [facility] Results CBC & Chem 7: 08/09/24 04:50 08/09/24 17:58 Labs: Abnormal Lab Results - Last 24 Hours (Table) 08/08/24 08/08/24 08/09/24 Range/Units 17:26 23:17 04:50 RBC 3.70 L (4.30-5.90) m/uL Hgb 8.6 L (13.0-17.5) gm/dL Hct 29.4 L (39.0-53.0) % MCV 79.4 L (80.0-100.0) fL MCH 23.3 L (25.0-35.0) pg MCHC 29.4 L (31.0-37.0) g/dL RDW 16.5 H (11.5-15.5) % Lymphocytes # 0.6 L (1.0-4.8) k/uL ABG pH (7.35-7.45) ABG pO2 (83-108) mmHg ABG HCO3 (21-25) mmol/L ABG Total CO2 (19-24) mmol/L ABG O2 Saturation (94-97) % Hemoglobin (13.0-17.5) gm/dL Carbon Dioxide (22-30) mmol/L BUN (9-20) mg/dL Glucose (74-99) mg/dL POC Glucose (mg/dL) 230 H 228 H (70-110) mg/dL Calcium (8.4-10.2) mg/dL 08/09/24 08/09/24 08/09/24 Range/Units 04:50 04:50 05:14 RBC (4.30-5.90) m/uL Hgb (13.0-17.5) gm/dL Hct (39.0-53.0) % MCV (80.0-100.0) fL MCH (25.0-35.0) pg MCHC (31.0-37.0) g/dL RDW (11.5-15.5) % Lymphocytes # (1.0-4.8) k/uL ABG pH 7.51 H (7.35-7.45) ABG pO2 64 L (83-108) mmHg ABG HCO3 35 H (21-25) mmol/L ABG Total CO2 36 H (19-24) mmol/L ABG O2 Saturation 93.3 L (94-97) % Hemoglobin 8.5 L (13.0-17.5) gm/dL Carbon Dioxide 34 H (22-30) mmol/L BUN 24 H (9-20) mg/dL Glucose 216 H (74-99) mg/dL POC Glucose (mg/dL) 234 H (70-110) mg/dL Calcium 8.0 L (8.4-10.2) mg/dL 08/09/24 Range/Units 11:55 RBC (4.30-5.90) m/uL Hgb (13.0-17.5) gm/dL Hct (39.0-53.0) % MCV (80.0-100.0) fL MCH (25.0-35.0) pg MCHC (31.0-37.0) g/dL RDW (11.5-15.5) % Lymphocytes # (1.0-4.8) k/uL ABG pH (7.35-7.45) ABG pO2 (83-108) mmHg ABG HCO3 (21-25) mmol/L ABG Total CO2 (19-24) mmol/L ABG O2 Saturation (94-97) % Hemoglobin (13.0-17.5) gm/dL Carbon Dioxide (22-30) mmol/L BUN (9-20) mg/dL Glucose (74-99) mg/dL POC Glucose (mg/dL) 231 H (70-110) mg/dL Calcium (8.4-10.2) mg/dL Microbiology - Last 24 Hours (Table) 08/08/24 12:00 Gram Stain - Preliminary Sputum Sputum Culture - Preliminary 08/05/24 08:28 Blood Culture - Preliminary Blood Assessment and Plan (1) Pneumonia Current Visit: Yes Status: Acute Code(s): J18.9 - PNEUMONIA, UNSPECIFIED ORGANISM SNOMED Code(s): 300725463 (2) COVID-19 Current Visit: Yes Status: Acute Code(s): U07.1 - COVID-19 SNOMED Code(s): 073032810 Plan: 1patient presented to hospital about 5 days before initial evaluation in this patient came with acute respiratory failure requiring intubation patient did have features of sepsis as the patient did have fever elevated white count and tachycardia though tested positive for COVID-19 and did have procalcitonin 0.22 on admission and antibiotics not started initially however has been started yesterday and the patient feel better and seem to improving highly concerning for secondary bacterial pneumonia responsible for his fever and elevated white count 2-repeat sputum has been obtained results will be followed 3-continue with Zosyn 3.375 g every 8 hours while waiting for repeat culture to finalize We will follow on clinical condition and cultures to further adjust medication if needed Thank you for this consultation we will follow the patient along with you Dictation was produced using [employer] software. please excuse any grammatical, word or spelling errors. Time with Patient: Greater than 30
[2024-08-10 05:21] LABS: Anisocytosis Slight; Basophils % (A) 0 %; Eosinophils % (A) 0 %; HCT 31.4 % (39.0-53.0); HGB 9.3 gm/dL (13.0-17.5); Hypochromasia Marked; Lymphocytes # (A) 0.6 k/uL (1.0-4.8); Lymphocytes % (A) 9 %; MCH 23.5 pg (25.0-35.0); MCHC 29.5 g/dL (31.0-37.0); MCV 79.7 fL (80.0-100.0); Mean Platelet Volume 7.4; Microcytosis Slight; Monocytes # (A) 0.4 k/uL (0-1.0); Monocytes % (A) 5 %; Neutrophils # (A) 5.7 k/uL (1.3-7.7); Neutrophils % (A) 84 %; Platelet Count 310 k/uL (150-450); RBC 3.94 m/uL (4.30-5.90); RDW 16.3 % (11.5-15.5); WBC 6.8 k/uL (3.8-10.6)
[2024-08-10 05:32] LABS: ABG HCO3 32 mmol/L (21-25); ABG PCO2 44 mmHg (35-45); ABG PH 7.47 (7.35-7.45); ABG PO2 67 mmHg (83-108); ABG TCO2 34 mmol/L (19-24)
[2024-08-10 05:36] LABS: African American GFR (CKD) >90 (>60 ml/min/1.73 sqM); Anion Gap 3 mmol/L; Blood Urea Nitrogen 25 mg/dL (9-20); Calcium 7.9 mg/dL (8.4-10.2); Carbon Dioxide 38 mmol/L (22-30); Chloride 96 mmol/L (98-107); Glucose 230 mg/dL (74-99); Non-African American GFR(CKD) >90 (>60 ml/min/1.73 sqM); Potassium 3.8 mmol/L (3.5-5.1); Sodium 137 mmol/L (137-145)
[2024-08-10 05:46] LABS: Allen Test Performed? NO
[2024-08-10] MEDS: POTASSIUM BICARBONATE/CIT AC 20 MEQ TABLET.EFF NG-TUBE SCH ×2 (05:57→22:34)
[2024-08-10 06:07] LABS: Glucose,Whole Blood 247 mg/dL (70-110)
--- NOTE | 2024-08-10 08:10 | XR ---
EXAMINATION TYPE: XR chest 1V portable DATE OF EXAM: 08/10/2024 CLINICAL HISTORY: Difficulty breathing progress study. TECHNIQUE: Single AP portable semiupright view of the chest is obtained. COMPARISON: Chest x-ray from one day earlier and older studies FINDINGS: Stable endotracheal and orogastric tubes. Persistent and continued worsening left greater than right bilateral mid to lower lung opacities. Per sistent mild cardiomegaly. Old healed fractures of the posterior-lateral left fifth through seventh r ibs are redemonstrated. IMPRESSION: Mild cardiomegaly with continued left greater than right mid to lower lung acute infiltra razia and/or atelectasis along with central vascular congestion. Focal left mid lung consolidation is m ore prominent versus most recent prior. [facility], , 08/10/2024 8:08 AM
--- NOTE | 2024-08-10 10:17 | P.PN ---
Subjective Progress Note Date: 08/10/24 On 08/08/2024, the patient is being seen in follow-up in the intensive care unit. This is a morbidly obese 63-year-old male patient who is currently intubated on the mechanical ventilator. Initially presented to us on 08/05/2024 for respiratory distress and the patient became unresponsive. He is known to have morbid obesity, COPD, chronic A-fib, CVA, hypertension hyperlipidemia. [facility] in a [facility] and the patient was found to be unresponsive and not breathing properly. His pulse ox was also very low and the patient was hypotensive and minimally responsive. He came into the emergency department where he was intubated and placed on the mechanical ventilator. Since admission, the patient was found to be COVID-19 positive. He had a follow-up chest x-ray today that shows significant rotation, ET tube is probably 1 cm above the damian and there is evidence of left lower lobe consolidat ion/effusion. Noted at the time of admission, he had also a right upper lobe consolidation in addition to left lower lobe consolidation. Sputum samples have been negative as collected on 08/05/2024 and blood cultures been also negative. No significant leukocytosis. The patient is currently on no antibiotics. The patient is on propofol which is running at 30 mcg/kg/min, and is also on fentanyl at 1 mcg/kg/h.. The patient is on assist-control mode of mechanical ventilation at rate of 20, tidal volume of 500, FiO2 of 60 % with a PEEP of 10. Blood gases from today shows a pH of 7.46 with a pCO2 of 51 and pO2 of 69 and this was an FiO2 of 60%. The patient is on lactated Ringer at rate of 75 cc an hour. The patient receiving vital high-protein at rate of 55 cc an hour. He remains in atrial fibrillation with rapid ventricular response. He is off Cardizem drip . He is also on metoprolol 12.5 mg twice a day and anticoagulation with Eliquis 5 mg p.o. twice a day. He is on Levemir insulin 15 units at bedtime. Earlier this morning, the patient noted to have episodic generalized tonic-clonic seizure-like activity. The patient was kept on propofol. He was given Ativan 2 mg IV push x 2 and started on Keppra. CAT scan of the brain is to follow. EEG is to follow. Neurology consultation is to follow. The patient is on lactated Ringer at rate of 75 cc an hour. Norepinephrine was also started this morning and is currently running at 0.03 mcg/kg/min. He is on EN , vital HP at 35 cc/hr On 08/09/2024, the patient is being seen for a follow-up. The patient remains intubated on the mechanical ventilator. This morning, the patient is on propofol which is running at 15 mcg/kg/min. Noted the propofol rate was gradually reduced as of yesterday and the fentanyl has been discontinued. Overnight, the patient continued to have bradycardic events and the heart rate was dropping as low as in the 40s and the rhythm remains atrial fibrillation. The patient was taken off the beta-blockers. The patient this morning is on assist-control mode of mechanical ventilation at rate of 20, tidal volume of 500, FiO2 of 60% with a PEEP of 5. Blood gas showed a pH of 7.51 with a pCO2 of 43 and pO2 of 64. Chest x-ray showing bilateral airspace disease, worse on the right essentially involving the lung bases. The patient is currently on no pressors. The patient remains on vital high-protein at rate of 45 cc an hour. No further seizure activity has been noted. The patient remains on IV Keppra. EEG showed encephalopathy without any seizure activity. Neurology on the case. The patient remains on IV Zosyn. The patient continues to have significant amount of edema in all 4 extremities and the patient remains on IV Lasix 40 mg every 12 hours. Fluid balance is +180 cc over the past 24 hours. Repeat cultures were sent and the results are still pending. The patient remains on anticoagulation with Eliquis regarding chronic atrial fibrillation. Cardizem drip is off. Metoprolol is currently on hold. On 08/10/2024, the patient is being seen for a follow-up. This morning, the patient is on propofol running at 20 mcg/kg/min. Remains deeply sedated. He is morbidly obese and he remains on the mechanical ventilator due to hypoxic/hypercapnic respiratory failure. This morning, he is on assist-control mode with rate of 20, tidal volume of 500, FiO2 is at 80% with a PEEP of 14. pH is 7.47 with a pCO2 of 44 and pO2 of 67. Chest x-ray shows bilateral pleural effusions and an area of dense consolidation in left upper lobe. There are signs of fluid overload as the patient continues to have extensive edema in all 4 extremities. He is on IV Lasix. Fluid balance is -1.5 L over the past 24 hours. The patient remains on IV Zosyn as an empiric antibiotic coverage. No pressors. No seizure activity and the patient remains on IV Keppra. EEG showed no evidence of any ongoing seizure activity. Remains on vital high-protein at rate of 45 cc an hour and the patient is on Levemir insulin 15 units twice a day. Blood work showed a white cell count of 6.8 with a hemoglobin 9.3 and a platelet count of 310. Sodium level is at 137, BUN is 25 with a creatinine of 0.8 and a potassium level is at 3.8. Procalcitonin level is at 0.48. The patient is afebrile. Hemodynamically, he is in low rate atrial fibrillation. Remains on anticoagulation with Eliquis. Objective - Vital Signs Vital signs: Vital Signs Temp 97.6 F 08/10/24 04:00 Pulse 70 08/10/24 07:00 Resp 20 08/10/24 07:00 BP 161/98 08/10/24 07:00 Pulse Ox 93 L 08/10/24 07:00 FiO2 80 08/10/24 08:17 Intake & Output 08/09/24 08/10/24 08/10/24 18:59 06:59 18:59 Intake Total 6546.901 6368.900 58 Output Total 2450 1700 50 Balance -976.539 -575.100 8 Weight 223.3 kg Intake: IV 337 243 13 .9NS KVO 160 Lactated Ringers 1,000 ml 135 @ 75 mls/hr IV .[id number] [facility] Rx#:[id number] Lactated Ringers 500 ml @ 110 10 10 mls/hr IV .Q24H [facility] Rx#:[id number] Piperacillin-Tazobactam 3 100 .375 gm In Sodium Chloride 0.9% 100 ml @ 25 mls/hr IVPB Q8HR [facility] Rx# :[id number] Pressure Bag 42 33 3 Intake, IV Titration 491.461 296.900 Amount Piperacillin-Tazobactam 3 300 .375 gm In Sodium Chloride 0.9% 100 ml @ 25 mls/hr IVPB Q8HR [facility] Rx# :[id number] propofoL 1,000 mg In 191.461 296.900 Empty Bag 1 bag @ 20 MCG/ KG/MIN 25.855 mls/hr IV . Q3H53M [facility] Rx#:[id number] Tube Feeding 585 495 45 Other 60 90 Output: Urine 2450 1700 50 Other: Voiding Method Indwelling Catheter Indwelling Catheter ABP, PAP, CO, CI - Last Documented Arterial Blood Pressure 112/77 - Exam No acute distress, the patient is sedated, and, comfortable intubated on the mechanical ventilator. Orogastric and orotracheal tube are both in place. The patient is morbidly obese with a body mass index of 64.2. HEENT examination is grossly unremarkable. Mucous membranes are moist. No oral lesions. Neck supple. Full range of motion. No adenopathy thyromegaly or neck vein distention. Cardiovascular examination reveals irregular rhythm consistent with atrial fibrillation. S1-S2 normal. No S3 or S4. No discernible murmur noted. Heart sounds are very distant. The patient is bradycardic, still in atrial fibrillation. Lungs reveal mostly clear breath sounds. Scattered rhonchi and crackles are no dariela. No wheezes. Breath sounds equal bilaterally. Abdomen is soft, but very obese. No bowel sounds. Extremities are intact. There is significant amount of edema lower extremities bilaterally, diminished pulses, no cyanosis or clubbing Skin is without rash or lesion. Neurologic examination cannot be evaluated at this time. The patient is sedated on propofol. - Labs CBC & Chem 7: 08/10/24 04:50 08/10/24 04:50 Labs: Abnormal Lab Results - Last 24 Hours (Table) 08/09/24 08/09/24 08/09/24 Range/Units 11:55 17:51 20:25 RBC (4.30-5.90) m/uL Hgb (13.0-17.5) gm/dL Hct (39.0-53.0) % MCV (80.0-100.0) fL MCH (25.0-35.0) pg MCHC (31.0-37.0) g/dL RDW (11.5-15.5) % Lymphocytes # (1.0-4.8) k/uL ABG pH (7.35-7.45) ABG pO2 (83-108) mmHg ABG HCO3 (21-25) mmol/L ABG Total CO2 (19-24) mmol/L ABG O2 Saturation (94-97) % Hemoglobin (13.0-17.5) gm/dL Chloride (98-107) mmol/L Carbon Dioxide (22-30) mmol/L BUN (9-20) mg/dL Glucose (74-99) mg/dL POC Glucose (mg/dL) 231 H 256 H 251 H (70-110) mg/dL Calcium (8.4-10.2) mg/dL 08/10/24 08/10/24 08/10/24 Range/Units 04:50 04:50 05:30 RBC 3.94 L (4.30-5.90) m/uL Hgb 9.3 L (13.0-17.5) gm/dL Hct 31.4 L (39.0-53.0) % MCV 79.7 L (80.0-100.0) fL MCH 23.5 L (25.0-35.0) pg MCHC 29.5 L (31.0-37.0) g/dL RDW 16.3 H (11.5-15.5) % Lymphocytes # 0.6 L (1.0-4.8) k/uL ABG pH 7.47 H (7.35-7.45) ABG pO2 67 L (83-108) mmHg ABG HCO3 32 H (21-25) mmol/L ABG Total CO2 34 H (19-24) mmol/L ABG O2 Saturation 93.0 L (94-97) % Hemoglobin 8.1 L (13.0-17.5) gm/dL Chloride 96 L (98-107) mmol/L Carbon Dioxide 38 H (22-30) mmol/L BUN 25 H (9-20) mg/dL Glucose 230 H (74-99) mg/dL POC Glucose (mg/dL) (70-110) mg/dL Calcium 7.9 L (8.4-10.2) mg/dL 08/10/24 Range/Units 06:05 RBC (4.30-5.90) m/uL Hgb (13.0-17.5) gm/dL Hct (39.0-53.0) % MCV (80.0-100.0) fL MCH (25.0-35.0) pg MCHC (31.0-37.0) g/dL RDW (11.5-15.5) % Lymphocytes # (1.0-4.8) k/uL ABG pH (7.35-7.45) ABG pO2 (83-108) mmHg ABG HCO3 (21-25) mmol/L ABG Total CO2 (19-24) mmol/L ABG O2 Saturation (94-97) % Hemoglobin (13.0-17.5) gm/dL Chloride (98-107) mmol/L Carbon Dioxide (22-30) mmol/L BUN (9-20) mg/dL Glucose (74-99) mg/dL POC Glucose (mg/dL) 247 H (70-110) mg/dL Calcium (8.4-10.2) mg/dL Microbiology - Last 24 Hours (Table) 08/08/24 12:00 Gram Stain - Preliminary Sputum Sputum Culture - Preliminary Assessment and Plan Plan: Acute hypoxic respiratory failure, intubated on the mechanical ventilator. Acute hypoxic respiratory failure is likely multifactorial. The patient has multifocal airspace disease with COVID-19 pneumonia. Also suspect fluid overload as the patient may have an underlying bilateral pleural effusion. Unable to obtain a CAT scan of the chest because of his body habitus as the patient has a BMI of 66.8. Superimposed bacterial infection is felt to be less likely as the patient has no leukocytosis, no fever and procalcitonin level is elevated. No significant respiratory secretions and the sputum culture has been negative.. Remains intubated on mechanical ventilator. Patient was intubated on 08/05/2024. He is a [facility] resident. Acute coronavirus infection infection and the patient tested positive at the time of admission on 08/05/2024 Chronic atrial fibrillation, currently bradycardic and still in atrial fi brillation, off Cardizem drip and off metoprolol and still anticoagulated with Eliquis, and the patient remains in the low rate atrial fibrillation Morbid obesity Acute leukocytosis, improved New onset seizure activity, started on IV Keppra. No further seizure activity has been noted. EEG was negative for any ongoing seizure activity. History of CVA. History of hyperlipidemia. History of hypertension. History of obstructive sleep apnea syndrome. Obesity hypoventilation syndrome with BMI of 63.9 also contributing to his hypercapnia/chronic CHF with preserved LV function/diastolic heart failure Diabetes mellitus type 2, maintained on Levemir insulin BPH Chronic metabolic alkalosis,, secondary to chronic hypercapnia History of iron deficiency anemia Polysubstance abuse with previous drug screen showing cocaine and benzodiazepines History of right diabetic foot infection with previous I&D back in July 2023 and polymicrobial growth. Plan: Titrate the propofol, currently on 20 mcg/kg/min, we wean down the sedation and give the patient a sedation holiday Continue ventilator support, no changes today Continue Decadron 6 mg IV every 24 hours Continue empiric antibiotic coverage with IV Zosyn as the patient is a [facility] resident Lasix 40 mg IV every 8 hours Add Zaroxolyn 5 mg p.o. twice a day as the patient continues to have significant signs of volume overload IV fluids to KVO check sputum Cx, are negative Unable to do a CAT scan of the chest due to his morbid obese body habitus CAT scan of the brain, no contrast was completed yesterday it was negative for any acute abnormalities Continue IV Keppra Management of atrial fibrillation and the patient remains off Cardizem drip and off metoprolol and Eliquis Enteral feeding for nutritional support with vital HP We will continue to follow. Condition remains critical. Critical care evaluation that was done more than 30 minutes Time with Patient: Greater than 30
[2024-08-10] MEDS: metOLazone 5 MG TAB PO SCH (10:31)
[2024-08-10 11:27] LABS: Glucose,Whole Blood 237 mg/dL (70-110)
--- NOTE | 2024-08-10 11:28 | P.PN ---
Subjective Progress Note Date: 08/09/24 Patient was seen for follow-up. Patient is off sedation. Patient opens his eyes, but the gaze is deviated upwards. Per nurse report, patient became bradycardic last night going down to 25's. X-ray revealed worsening congestion. Lasix was increased. Patient subsequently oxygen saturation decreased, t herefore the PEEP was increased to 14. Last night nurse noted that he was not much responsive. It was the same time he was bradycardic she weaned down the sedation. At present patient is on propofol only 15 mcg/kg's per minute. Fentanyl was turned off at 4 PM yesterday. No seizure-like activity noted. Objective - Vital Signs Vital signs: Vital Signs Temp 98.4 F 08/09/24 12:00 Pulse 66 08/09/24 13:30 Resp 20 08/09/24 13:30 BP 138/98 08/09/24 13:30 Pulse Ox 92 L 08/09/24 13:30 FiO2 80 08/09/24 12:30 Intake & Output 08/08/24 08/09/24 08/09/24 18:59 06:59 18:59 Intake Total 2241.325 1977.171 731 Output Total 3040 1070 975 Balance -798.675 907.171 -244 Weight 214.7 kg 231.3 kg Intake: IV 1022 1092 231 .9NS KVO 50 120 60 Lactated Ringers 1,000 ml 900 900 135 @ 75 mls/hr IV .[id number] [facility] Rx#:[id number] Pressure Bag 72 72 36 Intake, IV Titration 1019.325 255.171 200 Amount Magnesium Sulfate-D5w Pmx 100 1 gm In Dextrose/Water 1 100ml.bag @ 100 mls/hr IVPB ONCE ONE Rx#: [id number] Norepinephrine 8 mg In 53.141 16.339 Sodium Chloride 0.9% 250 ml @ 0.03 MCG/KG/MIN 12. 463 mls/hr IV .[id number] [facility] Rx#:[id number] Piperacillin-Tazobactam 3 150 100 .375 gm In Sodium Chloride 0.9% 100 ml @ 25 mls/hr IVPB Q8HR [facility] Rx# :[id number] Potassium Chloride 10 meq 200 In Water For Injection 1 100ml.bag @ 100 mls/hr IVPB Q1H [facility] Rx#: [id number] fentaNYL (PF). 1,000 mcg 220.657 In Sodium Chloride 0.9% 80 ml @ 0.5 MCG/KG/HR 10. 773 mls/hr IV .Q9H17M [facility] Rx#:[id number] propofoL 1,000 mg In 295.527 238.832 100 Empty Bag 1 bag @ 20 MCG/ KG/MIN 25.855 mls/hr IV . Q3H53M [facility] Rx#:[id number] Tube Feeding 200 540 270 Other 90 30 Output: Urine 3040 1070 975 Other: Voiding Method Indwelling Catheter Indwelling Catheter ABP, PAP, CO, CI - Last Documented Arterial Blood Pressure 130/70 - Exam Patient is intubated, on mild sedation 15 mcg/kg's per minute. Patient is off fentanyl. No obvious seizure-like activity noticed. Patient on noxious stimulus, opens the eyes, but the gazes upwards. Pupils are round and reacting. - Labs CBC & Chem 7: 08/10/24 04:50 08/10/24 04:50 Labs: Abnormal Lab Results - Last 24 Hours (Table) 08/08/24 08/08/24 08/09/24 Range/Units 17:26 23:17 04:50 RBC 3.70 L (4.30-5.90) m/uL Hgb 8.6 L (13.0-17.5) gm/dL Hct 29.4 L (39.0-53.0) % MCV 79.4 L (80.0-100.0) fL MCH 23.3 L (25.0-35.0) pg MCHC 29.4 L (31.0-37.0) g/dL RDW 16.5 H (11.5-15.5) % Lymphocytes # 0.6 L (1.0-4.8) k/uL ABG pH (7.35-7.45) ABG pO2 (83-108) mmHg ABG HCO3 (21-25) mmol/L ABG Total CO2 (19-24) mmol/L ABG O2 Saturation (94-97) % Hemoglobin (13.0-17.5) gm/dL Carbon Dioxide (22-30) mmol/L BUN (9-20) mg/dL Glucose (74-99) mg/dL POC Glucose (mg/dL) 230 H 228 H (70-110) mg/dL Calcium (8.4-10.2) mg/dL 08/09/24 08/09/24 08/09/24 Range/Units 04:50 04:50 05:14 RBC (4.30-5.90) m/uL Hgb (13.0-17.5) gm/dL Hct (39.0-53.0) % MCV (80.0-100.0) fL MCH (25.0-35.0) pg MCHC (31.0-37.0) g/dL RDW (11.5-15.5) % Lymphocytes # (1.0-4.8) k/uL ABG pH 7.51 H (7.35-7.45) ABG pO2 64 L (83-108) mmHg ABG HCO3 35 H (21-25) mmol/L ABG Total CO2 36 H (19-24) mmol/L ABG O2 Saturation 93.3 L (94-97) % Hemoglobin 8.5 L (13.0-17.5) gm/dL Carbon Dioxide 34 H (22-30) mmol/L BUN 24 H (9-20) mg/dL Glucose 216 H (74-99) mg/dL POC Glucose (mg/dL) 234 H (70-110) mg/dL Calcium 8.0 L (8.4-10.2) mg/dL 08/09/24 Range/Units 11:55 RBC (4.30-5.90) m/uL Hgb (13.0-17.5) gm/dL Hct (39.0-53.0) % MCV (80.0-100.0) fL MCH (25.0-35.0) pg MCHC (31.0-37.0) g/dL RDW (11.5-15.5) % Lymphocytes # (1.0-4.8) k/uL ABG pH (7.35-7.45) ABG pO2 (83-108) mmHg ABG HCO3 (21-25) mmol/L ABG Total CO2 (19-24) mmol/L ABG O2 Saturation (94-97) % Hemoglobin (13.0-17.5) gm/dL Carbon Dioxide (22-30) mmol/L BUN (9-20) mg/dL Glucose (74-99) mg/dL POC Glucose (mg/dL) 231 H (70-110) mg/dL Calcium (8.4-10.2) mg/dL Microbiology - Last 24 Hours (Table) 08/08/24 12:00 Gram Stain - Preliminary Sputum Sputum Culture - Preliminary 08/05/24 08:28 Blood Culture - Preliminary Blood Assessment and Plan Assessment: * Altered mental status, likely due to hypoxic/toxic metabolic encephalopathy. Patient was found unresponsive at the facility, with saturation of 70%. 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 Some sporadic normal appearing background was also seen, which may pertain to better prognosis. However clinical correlation and follow-up EEG strongly recommended. * Continue Keppra 1000 mg twice daily. Patient has received loading dose of Keppra 1500 mg as well. No seizure-like activity noticed at this time. * Continue Eliquis for atrial fibrillation. * Patient on Zosyn. * Other medical management as per IM and critical care. * Discussed with nursing staff in detail.
[2024-08-10] MEDS: INSULIN ASPART (NovoLOG) 100 UNIT/ML VIAL SQ SCH (11:43)
--- NOTE | 2024-08-10 15:56 | P.PN ---
Subjective History of Present Illness: The patient is a 63-year-old male with known history of morbid obesity, permanent atrial fibrillation, prior history of CVA, hypertension and hyperlipidemia who [facility] from [facility] with progressive dyspnea and decreased mentation, he was found to be unresponsive and was intubated. He was diagnosed with COVID infection. He remains intubated. Cardiology consultation was requested because of the atrial fibrillation. The patient has a known permanent atrial fibrillation, anticoagulated. His ventricular rate was stable on presentation with episode of slow ventricular response. Yesterday he became tachycardic and was started on IV Cardizem. He is stable at this time. He has underwent cardiac catheterization in 2012 and was found to have mild to moderate obstructive disease. His left ventricular systolic function was preserved in 2022. He is on no vasopressors and his urinary output has been stable. His troponin was normal on admission and his NT proBNP was 3320. He has a history of hypertension and diabetes. Medications: As an outpatient he is on Eliquis 5 mg twice a day, losartan 12.5 mg daily, metoprolol tartrate 12.5 mg twice a day, insulin, Lasix 40 mg daily, MiraLAX, Flomax, gabapentin 08/08 Patient seen and examined. Patient had seizure-like activity and therefore taken for CT brain this morning which showed no significant change. EEG showing moderate to severe background slowing. He was more tachycardic on transfer however after getting patient situated has been in the bradycardic 40s to 50s A. fib. He did receive his metoprolol 12.5 twice a day. Remains on low dose norepinephrine. 08/09 Patient had more significant bradycardia with heart rates in the 30s and 40s however appears somewhat related to sedation and the propofol was weaned and heart rates came up morning of the 50s. His Lasix was increased to 40 mg IV every 8 hours. Additionally getting tube feeds. Remains on ventilator requiring increase in PEEP and currently on PEEP 14 and FiO2 80%. 08/10 Patient seen and examined. Patient remains in A. fib with controlled ventricular rates with mild bradycardia. Reported heart rates on the 30s however are predominantly 50s and 60s. Asymptomatic and hemodynamically stable. Off of pressors. Previously had been on Cardizem drip however this has been discontinued. Requiring increasing oxygen demand and up to 100% FiO2 with a PEEP of 14. On Lasix 40 mg 3 times a day with -1400 mL in last 24 hours. Physical Examination: 63-year-old male, intubated and sedated, morbidly obese, Head: Normocephalic. Eyes: Sclerae nonicteric. Neck: Good carotid upstroke, no bruit, . Lungs: Clear to auscultation anteriorly. Heart: Irregular rate and rhythm, S1-S2, no S3, no rub. No murmur. Abdomen: Soft obese, positive bowel sounds no organomegaly. Extremities: +2 edema. Impression: 1. Respiratory failure with COVID infection, possible aspiration pneumonia 2. Permanent atrial fibrillation 3. History of CVA 4. History of hypertension 5. History of diabetes 6. Morbid obesity 7. Obstructive sleep apnea 8. Bradycardia, asymptomatic 9. Acute on chronic diastolic heart failure Plan: Continue to monitor response to diuresis. Echo showing preserved EF. Appears hemodynamically stable. Prognosis guarded. Objective - Vital Signs Vital signs: Vital Signs Temp 99.7 F H 08/10/24 12:00 Pulse 70 08/10/24 15:00 Resp 20 08/10/24 15:00 BP 105/75 08/10/24 15:00 Pulse Ox 90 L 08/10/24 15:00 FiO2 100 08/10/24 15:06 Intake & Output 08/09/24 08/10/24 08/10/24 18:59 06:59 18:59 Intake Total 6461.317 0223.900 865.464 Output Total 2450 1700 2255 Balance -976.539 -575.100 -1389.536 Weight 223.3 kg Intake: IV 337 243 217 .9NS KVO 160 Lactated Ringers 1,000 ml 135 @ 75 mls/hr IV .[id number] F[facility] Rx#:[id number] Lactated Ringers 500 ml @ 110 90 10 mls/hr IV .Q24H FABI[facility]NE Rx#:[id number] Piperacillin-Tazobactam 3 100 100 .375 gm In Sodium Chloride 0.9% 100 ml @ 25 mls/hr IVPB Q8HR F[facility] Rx# :[id number] Pressure Bag 42 33 27 Intake, IV Titration 491.461 296.900 183.464 Amount Piperacillin-Tazobactam 3 300 .375 gm In Sodium Chloride 0.9% 100 ml @ 25 mls/hr IVPB Q8HR F[facility] Rx# :[id number] propofoL 1,000 mg In 191.461 296.900 183.464 Empty Bag 1 bag @ 20 MCG/ KG/MIN 25.855 mls/hr IV . Q3H53M FABIENNE Rx#:[id number] Tube Feeding 585 495 405 Other 60 90 60 Output: Urine 2450 1700 2255 Other: Voiding Method Indwelling Catheter Indwelling Catheter ABP, PAP, CO, CI - Last Documented Arterial Blood Pressure 107/67 - Labs CBC & Chem 7: 08/10/24 04:50 08/10/24 04:50 Labs: Abnormal Lab Results - Last 24 Hours (Table) 08/09/24 08/09/24 08/10/24 Range/Units 17:51 20:25 04:50 RBC 3.94 L (4.30-5.90) m/uL Hgb 9.3 L (13.0-17.5) gm/dL Hct 31.4 L (39.0-53.0) % MCV 79.7 L (80.0-100.0) fL MCH 23.5 L (25.0-35.0) pg MCHC 29.5 L (31.0-37.0) g/dL RDW 16.3 H (11.5-15.5) % Lymphocytes # 0.6 L (1.0-4.8) k/uL ABG pH (7.35-7.45) ABG pO2 (83-108) mmHg ABG HCO3 (21-25) mmol/L ABG Total CO2 (19-24) mmol/L ABG O2 Saturation (94-97) % Hemoglobin (13.0-17.5) gm/dL Chloride (98-107) mmol/L Carbon Dioxide (22-30) mmol/L BUN (9-20) mg/dL Glucose (74-99) mg/dL POC Glucose (mg/dL) 256 H 251 H (70-110) mg/dL Calcium (8.4-10.2) mg/dL 08/10/24 08/10/24 08/10/24 Range/Units 04:50 05:30 06:05 RBC (4.30-5.90) m/uL Hgb (13.0-17.5) gm/dL Hct (39.0-53.0) % MCV (80.0-100.0) fL MCH (25.0-35.0) pg MCHC (31.0-37.0) g/dL RDW (11.5-15.5) % Lymphocytes # (1.0-4.8) k/uL ABG pH 7.47 H (7.35-7.45) ABG pO2 67 L (83-108) mmHg ABG HCO3 32 H (21-25) mmol/L ABG Total CO2 34 H (19-24) mmol/L ABG O2 Saturation 93.0 L (94-97) % Hemoglobin 8.1 L (13.0-17.5) gm/dL Chloride 96 L (98-107) mmol/L Carbon Dioxide 38 H (22-30) mmol/L BUN 25 H (9-20) mg/dL Glucose 230 H (74-99) mg/dL POC Glucose (mg/dL) 247 H (70-110) mg/dL Calcium 7.9 L (8.4-10.2) mg/dL 08/10/24 Range/Units 11:25 RBC (4.30-5.90) m/uL Hgb (13.0-17.5) gm/dL Hct (39.0-53.0) % MCV (80.0-100.0) fL MCH (25.0-35.0) pg MCHC (31.0-37.0) g/dL RDW (11.5-15.5) % Lymphocytes # (1.0-4.8) k/uL ABG pH (7.35-7.45) ABG pO2 (83-108) mmHg ABG HCO3 (21-25) mmol/L ABG Total CO2 (19-24) mmol/L ABG O2 Saturation (94-97) % Hemoglobin (13.0-17.5) gm/dL Chloride (98-107) mmol/L Carbon Dioxide (22-30) mmol/L BUN (9-20) mg/dL Glucose (74-99) mg/dL POC Glucose (mg/dL) 237 H (70-110) mg/dL Calcium (8.4-10.2) mg/dL Microbiology - Last 24 Hours (Table) 08/08/24 12:00 Gram Stain - Final Sputum Sputum Culture - Final
[2024-08-10 17:38] LABS: Glucose,Whole Blood 250 mg/dL (70-110)
[2024-08-11 01:05] LABS: Glucose,Whole Blood 242 mg/dL (70-110)
[2024-08-11] MEDS: POTASSIUM BICARBONATE/CIT AC 20 MEQ TABLET.EFF NG-TUBE SCH ×3 (03:04→23:32)
[2024-08-11 05:12] LABS: Glucose,Whole Blood 231 mg/dL (70-110)
[2024-08-11 05:25] LABS: ABG HCO3 39 mmol/L (21-25); ABG PCO2 51 mmHg (35-45); ABG PH 7.49 (7.35-7.45); ABG PO2 70 mmHg (83-108); ABG TCO2 41 mmol/L (19-24)
[2024-08-11 05:26] LABS: Allen Test Performed? No
[2024-08-11 05:35] LABS: Anisocytosis Slight; Basophils % (A) 0 %; Eosinophils % (A) 0 %; HCT 29.9 % (39.0-53.0); HGB 8.7 gm/dL (13.0-17.5); Hypochromasia Marked; Lymphocytes % (A) 15 %; MCHC 29.2 g/dL (31.0-37.0); MCV 78.8 fL (80.0-100.0); Mean Platelet Volume 7.2; Microcytosis Slight; Monocytes # (A) 0.6 k/uL (0-1.0); Monocytes % (A) 8 %; Neutrophils # (A) 4.9 k/uL (1.3-7.7); Neutrophils % (A) 73 %; Platelet Count 333 k/uL (150-450); RBC 3.79 m/uL (4.30-5.90); RDW 16.4 % (11.5-15.5); WBC 6.8 k/uL (3.8-10.6)
[2024-08-11 06:19] LABS: African American GFR (CKD) >90 (>60 ml/min/1.73 sqM); Blood Urea Nitrogen 27 mg/dL (9-20); Calcium 8.1 mg/dL (8.4-10.2); Chloride 93 mmol/L (98-107); Glucose 217 mg/dL (74-99); Non-African American GFR(CKD) >90 (>60 ml/min/1.73 sqM); Potassium 3.9 mmol/L (3.5-5.1); Sodium 136 mmol/L (137-145)
[2024-08-11 06:25] LABS: Anion Gap 9 mmol/L; Carbon Dioxide 34 mmol/L (22-30)
--- NOTE | 2024-08-11 06:28 | P.PN ---
Subjective History of Present Illness: The patient is a 63-year-old male with known history of morbid obesity, permanent atrial fibrillation, prior history of CVA, hypertension and hyperlipidemia who presented from the assisted with progressive dyspnea and decreased mentation, he was found to be unresponsive and was intubated. He was diagnosed with COVID infection. He remains intubated. Cardiology consultation was requested because of the atrial fibrillation. The patient has a known permanent atrial fibrillation, anticoagulated. His ventricular rate was stable on presentation with episode of slow ventricular response. Yesterday he became tachycardic and was started on IV Cardizem. He is stable at this time. He has underwent cardiac catheterization in 2012 and was found to have mild to moderate obstructive disease. His left ventricular systolic function was preserved in 2022. He is on no vasopressors and his urinary output has been stable. His troponin was normal on admission and his NT proBNP was 3320. He has a history of hypertension and diabetes. Medications: As an outpatient he is on Eliquis 5 mg twice a day, losartan 12.5 mg daily, metoprolol tartrate 12.5 mg twice a day, insulin, Lasix 40 mg daily, MiraLAX, Flomax, gabapentin 08/08 Patient seen and examined. Patient had seizure-like activity and therefore taken for CT brain this morning which showed no significant change. EEG showing moderate to severe background slowing. He was more tachycardic on transfer however after getting patient situated has been in the bradycardic 40s to 50s A. fib. He did receive his metoprolol 12.5 twice a day. Remains on low dose norepinephrine. 08/09 Patient had more significant bradycardia with heart rates in the 30s and 40s however appears somewhat related to sedation and the propofol was weaned and heart rates came up morning of the 50s. His Lasix was increased to 40 mg IV every 8 hours. Additionally getting tube feeds. Remains on ventilator requiring increase in PEEP and currently on PEEP 14 and FiO2 80%. 08/10 Patient seen and examined. Patient remains in A. fib with controlled ventricular rates with mild bradycardia. Reported heart rates on the 30s however are predominantly 50s and 60s. Asymptomatic and hemodynamically stable. Off of pressors. Previously had been on Cardizem drip however this has been discontinued. Requiring increasing oxygen demand and up to 100% FiO2 with a PEEP of 14. On Lasix 40 mg 3 times a day with -1400 mL in last 24 hours. 08/11 Patient seen and examined. Remains in A. fib with heart rates in the 50s to 60s. Remains on ventilator with 100% FiO2 and PEEP of 16. Off of any vasopressors. He is -1500 mL over last 24 hours. Blood work from this morning pending however hemoglobin 8.7. Physical Examination: 63-year-old male, intubated and sedated, morbidly obese, Head: Normocephalic. Eyes: Sclerae nonicteric. Neck: Good carotid upstroke, no bruit, . Lungs: Clear to auscultation anteriorly. Heart: Irregular rate and rhythm, S1-S2, no S3, no rub. No murmur. Abdomen: Soft obese, positive bowel sounds no organomegaly. Extremities: +2 edema. Impression: 1. Respiratory failure with COVID infection, possible aspiration pneumonia 2. Permanent atrial fibrillation 3. History of CVA 4. History of hypertension 5. History of diabetes 6. Morbid obesity 7. Obstructive sleep apnea 8. Bradycardia, asymptomatic 9. Acute on chronic diastolic heart failure Plan: Heart rates appear predominantly controlled and bradycardic likely exacerbated by sedation and appears stable. Continue attempts at diuresis to help optimize his respiratory status with severe respiratory failure. Continue with Lasix as well as Zaroxolyn. Objective - Vital Signs Vital signs: Vital Signs Temp 97.5 F L 08/10/24 22:00 Pulse 61 08/11/24 06:00 Resp 21 08/11/24 06:00 BP 100/71 08/11/24 06:00 Pulse Ox 96 08/11/24 06:00 FiO2 100 08/11/24 04:24 Intake & Output 08/10/24 08/10/24 08/11/24 06:59 18:59 06:59 Intake Total 2930.635 5516.615 989.913 Output Total 1700 3535 3450 Balance -575.100 -2285.385 -2460.087 Weight 223.3 kg 218.6 kg Intake: IV 243 356 156 Lactated Ringers 500 ml @ 110 120 120 10 mls/hr IV .Q24H [facility] Rx#:[id number] Piperacillin-Tazobactam 3 100 200 .375 gm In Sodium Chloride 0.9% 100 ml @ 25 mls/hr IVPB Q8HR [facility] Rx# :[id number] Pressure Bag 33 36 36 Intake, IV Titration 296.900 263.615 293.913 Amount propofoL 1,000 mg In 296.900 263.615 293.913 Empty Bag 1 bag @ 20 MCG/ KG/MIN 25.855 mls/hr IV . Q3H53M [facility] Rx#:[id number] Tube Feeding 495 540 540 Other 90 90 Output: Urine 1700 3535 3450 Other: Voiding Method Indwelling Catheter Indwelling Catheter Indwelling Catheter # Bowel Movements 1 ABP, PAP, CO, CI - Last Documented Arterial Blood Pressure 146/88 - Labs CBC & Chem 7: 08/11/24 05:00 08/11/24 01:00 Labs: Abnormal Lab Results - Last 24 Hours (Table) 08/10/24 08/10/24 08/11/24 Range/Units 11:25 17:36 00:53 RBC (4.30-5.90) m/uL Hgb (13.0-17.5) gm/dL Hct (39.0-53.0) % MCV (80.0-100.0) fL MCH (25.0-35.0) pg MCHC (31.0-37.0) g/dL RDW (11.5-15.5) % ABG pH (7.35-7.45) ABG pCO2 (35-45) mmHg ABG pO2 (83-108) mmHg ABG HCO3 (21-25) mmol/L ABG Total CO2 (19-24) mmol/L Hemoglobin (13.0-17.5) gm/dL POC Glucose (mg/dL) 237 H 250 H 242 H (70-110) mg/dL 08/11/24 08/11/24 08/11/24 Range/Units 05:00 05:11 05:19 RBC 3.79 L (4.30-5.90) m/uL Hgb 8.7 L (13.0-17.5) gm/dL Hct 29.9 L (39.0-53.0) % MCV 78.8 L (80.0-100.0) fL MCH 23.0 L (25.0-35.0) pg MCHC 29.2 L (31.0-37.0) g/dL RDW 16.4 H (11.5-15.5) % ABG pH 7.49 H (7.35-7.45) ABG pCO2 51 H (35-45) mmHg ABG pO2 70 L (83-108) mmHg ABG HCO3 39 H (21-25) mmol/L ABG Total CO2 41 H (19-24) mmol/L Hemoglobin 9.2 L (13.0-17.5) gm/dL POC Glucose (mg/dL) 231 H (70-110) mg/dL Microbiology - Last 24 Hours (Table) 08/05/24 08:28 Blood Culture - Final Blood 08/08/24 12:00 Gram Stain - Final Sputum Sputum Culture - Final
--- NOTE | 2024-08-11 08:06 | XR ---
EXAMINATION TYPE: XR chest 1V portable DATE OF EXAM: 08/11/2024 CLINICAL HISTORY: Difficulty breathing progress study. TECHNIQUE: Single AP portable semiupright view of the chest is obtained. COMPARISON: Chest x-ray from one day earlier and older studies FINDINGS: Stable endotracheal and orogastric tubes. Persistent and continued worsening left greater than right bilateral increased opacities. Persistent mild cardiomegaly. Old healed fractures of the posterior-lateral left fifth through seventh ribs are redemonstrated. IMPRESSION: Mild cardiomegaly with continued slight worsening left greater than right bilateral acute infiltrates and/or edema along with central vascular congestion and small bilateral pleural effusion s are all redemonstrated. [facility], , 08/11/2024 8:04 AM
--- NOTE | 2024-08-11 09:15 | P.PN ---
Subjective Progress Note Date: 08/10/24 Patient in the intensive care unit currently intubated and sedated on the mechanical ventilator. Patient's chest x-ray today does reveal worsening CHF. He is significantly edematous. Remains sedated with IV fentanyl and propofol. He continues on IV Zosyn. Patient was started on enteral feedings today. blood sugars are elevated in the 200s. 08/07/2024 Patient was evaluated in follow-up in the medical floor he is currently intubated and sedated on the mechanical ventilator. Patient had gone into atrial fibrillation with rapid ventricular rate overnight requiring IV Cardizem. He has been since transition to oral metoprolol with heart rate better controlled today. He does have a noted history of atrial fibrillation was resumed on his oral Eliquis yesterday. Patient currently has LR running at 75 mL/h he does remain quite edematous mostly in his lower extremities. Patient was noted to have a small amount of yellow bile emesis there has been no residual with his tube feedings and they are continued at a slow rate today of 10 mL/h. He is febrile today temperature of 100.8. An abdominal x-ray was unable to be completed due to patient's body habitus and he is unable to be transported down for x-ray at this time. 08/08/2024 Patient is seen in follow-up in the ICU and overnight placed on mechanical ventilation as patient was noted to have what appeared to be seizure-like activity with no history of seizures and neurology was consulted. Patient was placed on mechanical ventilation currently with an FiO2 of 60% and PEEP is 10 with pulmonary millwork estimator following. Patient remains with low-grade temps and also started on Keppra and is maintained on antibiotics. Cardiology following as well maintained on oral anticoagulation and has been having heart rates in the 40s. Continued on low-dose metoprolol and will continue to monitor closely. Per nursing staff patient also requiring low-dose Levophed and has been started on 40 of IV Lasix daily due to significant swelling. Will follow-up on repeat labs and continue to monitor closely. 08/09/2024 Patient is seen in follow-up with multiple consultations following including pulmonary, neurology, cardiology, and infectious disease consulted. Patient underwent EEG which was abnormal with no epileptiform discharges noted. Patient is continued on Keppra for now. Heart rates in the low 40s although per nursing staff slightly improved this afternoon and is being monitored closely with cardiology following. Patient is continued on Lasix for diuresis with significant volume overload. Wean pressors as tolerated and follow-up on repeat labs. Patient's blood sugars have been more elevated and possible steroid effect will increase long-acting and also Accu-Cheks before meals and at bedtime as well as sliding scale. Adjust accordingly. 08/10/2024 Patient is seen in follow-up today continues on mechanical ventilation in the ICU with an FiO2 of 80% and PEEP is 14. Undergoing sedation holidays and per nursing staff patient will open his eyes and attempt to track although not moving. Patient continues to be extremely edematous and is diuresing maintained on IV Lasix. Heart rates slightly improved and will continue current regimen per cardiology. No plans on extubation at this time. Per nursing staff patient has not had a bowel movement and is continued on bowel regimen. Abdomen is soft and there is positive bowel sounds noted. Patient continued on tube feeds. Highly recommend aspiration precautions and head of the bed elevated 30 to 45 degrees at all times. Unable to complete review of systems as patient is currently intubated and sedated PHYSICAL EXAMINATION: GENERAL: The patient is intubated and sedated. He is morbidly obese, well- developed, elderly appearing, extremely edematous of upper and lower extremities and body habitus, ill-appearing. FiO2 increased at 80% with a PEEP of 14 HEENT: Pupils are round and equally reacting to light. EOMI. No scleral icterus. No conjunctival pallor. Normocephalic, atraumatic. No pharyngeal erythema. No thyromegaly. CARDIOVASCULAR: S1 and S2 muffled, irregular PULMONARY: Diminished breath sounds bilaterally otherwise chest is clear to auscultation, no wheezing , no crackles. ABDOMEN: Soft, obese, nontender, nondistended, normoactive bowel sounds. No palpable organomegaly. Kelly catheter in place MUSCULOSKELETAL: No joint swelling or deformity. EXTREMITIES: No cyanosis, clubbing, continues with significant lower extremity edema bilaterally pitting right lower leg superficial wound with dressing in place changed yesterday NEUROLOGICAL: Not following commands. Unable to completely assess as patient is intubated and maintained on sedation SKIN: No rashes. no petechiae. Assessment: Acute hypoxic respiratory failure requiring intubation on admission, currently on mechanical ventilation COVID infection and possible pneumonia, concerns for aspiration pneumonia Possible seizure like activity, new onset, EEG was abnormal although not showing any epileptiform discharges, continued on Keppra for now with neurology following Possible acute COPD exacerbation versus obesity hypoventilation syndrome Possible bacterial pneumonia, healthcare associated with right upper lobe and left lower lobe infiltrates Severe sepsis requiring pressor support Acute on chronic diastolic heart failure with preserved EF A-fib and RVR, present on admission now with slow ventricular rate dropping into the 30s. Patient heart rate slightly improving and will continue current regimen per cardiology Right leg wound with recent cultures showing enterococcus faecalis, ESBL and Providencia Rettgeri Diabetes Mellitus type 2, uncontrolled with hyperglycemia Morbid obesity with a BMI of 64.2 Chronic anemia Lactic acidemia/acidosis, improved GI prophylaxis DVT prophylaxis Full Code Plan: Continue with antibiotic in the form of Zosyn with infectious disease following. Highly concerned for aspiration pneumonia. Continue with intubation and mechanical ventilation. FiO2 is 80% with a PEEP being increased to 14 and desats quickly per nursing staff. Wean as tolerated. No plans for extubation at this time and undergoing sedation holidays. Patient will open eyes although not following commands at this time. Continue enteral feedings, tube feeds were resumed and tolerating thus far.. Continue with aspiration precautions and head of the bed elevated 45 degrees at all times and monitor closely for residuals Patient has not had a bowel movement documented will continue bowel regimen and also daily suppositories. Abdominal x-ray was ordered although patient continues to bradycardia down into the 30s when attempting to lie somewhat flat and unable to perform at this time or bedside as his body habitus is quite large. Abdomen is soft with positive bowel sounds noted on exam Patient does not have history of seizures and was given a dose of Keppra and neurology following underwent EEG which was abnormal although not showing any epileptiform discharges. No further seizure-like activity noted. Continue cardiac telemetry with cardiology following. Continued on low-dose metoprolol Per pulmonary millwork estimator patient has been started on IV Lasix and is being increased to every 8 hours. And will continue to monitor kidney functions c losely. Replace electrolytes per protocol Continue eliquis and monitor for any signs of bleeding. Continue with Accu-Cheks before meals and at bedtime and sliding scale along with long-acting. Adjust insulins accordingly. Will increase long-acting insulin to twice daily Repeat blood work in the AM Overall prognosis is guarded The impression and plan of care has been dictated by Jocy Randle, Nurse Practitioner as directed. Dr. Jackie MD I have performed a history and physical examination and medical decision making of this patient, discussed the same with the dictator, and agree with the dictators assessment and plan as written, documented as a scribe. Based on total visit time, I have performed more than 50% of this visit. Objective - Vital Signs Vital signs: Vital Signs Temp 96.8 F L 08/11/24 08:00 Pulse 46 L 08/11/24 08:00 Resp 20 08/11/24 08:00 BP 114/75 08/11/24 08:00 Pulse Ox 97 08/11/24 08:00 FiO2 100 08/11/24 08:07 Intake & Output 08/10/24 08/11/24 08/11/24 18:59 06:59 18:59 Intake Total 1676.721 4786.913 87.476 Output Total 3535 3625 Balance -2285.385 -2577.087 87.476 Weight 218.6 kg Intake: IV 356 169 Lactated Ringers 500 ml @ 120 130 10 mls/hr IV .Q24H [facility] Rx#:[id number] Piperacillin-Tazobactam 3 200 .375 gm In Sodium Chloride 0.9% 100 ml @ 25 mls/hr IVPB Q8HR [facility] Rx# :[id number] Pressure Bag 36 39 Intake, IV Titration 263.615 293.913 87.476 Amount propofoL 1,000 mg In 263.615 293.913 87.476 Empty Bag 1 bag @ 20 MCG/ KG/MIN 25.855 mls/hr IV . Q3H53M [facility] Rx#:[id number] Tube Feeding 540 585 Other 90 Output: Urine 3535 3625 Other: Voiding Method Indwelling Catheter Indwelling Catheter # Bowel Movements 1 ABP, PAP, CO, CI - Last Documented Arterial Blood Pressure 102/66 - Labs CBC & Chem 7: 08/11/24 05:00 08/11/24 05:00 Labs: Abnormal Lab Results - Last 24 Hours (Table) 08/10/24 08/10/24 08/11/24 Range/Units 11:25 17:36 00:53 RBC (4.30-5.90) m/uL Hgb (13.0-17.5) gm/dL Hct (39.0-53.0) % MCV (80.0-100.0) fL MCH (25.0-35.0) pg MCHC (31.0-37.0) g/dL RDW (11.5-15.5) % ABG pH (7.35-7.45) ABG pCO2 (35-45) mmHg ABG pO2 (83-108) mmHg ABG HCO3 (21-25) mmol/L ABG Total CO2 (19-24) mmol/L Hemoglobin (13.0-17.5) gm/dL Sodium (137-145) mmol/L Chloride (98-107) mmol/L Carbon Dioxide (22-30) mmol/L BUN (9-20) mg/dL Glucose (74-99) mg/dL POC Glucose (mg/dL) 237 H 250 H 242 H (70-110) mg/dL Calcium (8.4-10.2) mg/dL 08/11/24 08/11/24 08/11/24 Range/Units 05:00 05:00 05:11 RBC 3.79 L (4.30-5.90) m/uL Hgb 8.7 L (13.0-17.5) gm/dL Hct 29.9 L (39.0-53.0) % MCV 78.8 L (80.0-100.0) fL MCH 23.0 L (25.0-35.0) pg MCHC 29.2 L (31.0-37.0) g/dL RDW 16.4 H (11.5-15.5) % ABG pH (7.35-7.45) ABG pCO2 (35-45) mmHg ABG pO2 (83-108) mmHg ABG HCO3 (21-25) mmol/L ABG Total CO2 (19-24) mmol/L Hemoglobin (13.0-17.5) gm/dL Sodium 136 L (137-145) mmol/L Chloride 93 L (98-107) mmol/L Carbon Dioxide 34 H (22-30) mmol/L BUN 27 H (9-20) mg/dL Glucose 217 H (74-99) mg/dL POC Glucose (mg/dL) 231 H (70-110) mg/dL Calcium 8.1 L (8.4-10.2) mg/dL 08/11/24 Range/Units 05:19 RBC (4.30-5.90) m/uL Hgb (13.0-17.5) gm/dL Hct (39.0-53.0) % MCV (80.0-100.0) fL MCH (25.0-35.0) pg MCHC (31.0-37.0) g/dL RDW (11.5-15.5) % ABG pH 7.49 H (7.35-7.45) ABG pCO2 51 H (35-45) mmHg ABG pO2 70 L (83-108) mmHg ABG HCO3 39 H (21-25) mmol/L ABG Total CO2 41 H (19-24) mmol/L Hemoglobin 9.2 L (13.0-17.5) gm/dL Sodium (137-145) mmol/L Chloride (98-107) mmol/L Carbon Dioxide (22-30) mmol/L BUN (9-20) mg/dL Glucose (74-99) mg/dL POC Glucose (mg/dL) (70-110) mg/dL Calcium (8.4-10.2) mg/dL Microbiology - Last 24 Hours (Table) 08/05/24 08:28 Blood Culture - Final Blood 08/08/24 12:00 Gram Stain - Final Sputum Sputum Culture - Final
[2024-08-11] MEDS: INSULIN DETEMIR (LEVEMIR) 100 UNIT/ML SYR SQ SCH (10:41)
[2024-08-11 11:24] LABS: Glucose,Whole Blood 276 mg/dL (70-110)
[2024-08-11] MEDS ORDERED: ZINC OXIDE PASTE (Z-GUARD) 1 APPLIC TOPICAL PRN (12:34)
--- NOTE | 2024-08-11 14:28 | P.PN ---
Subjective Progress Note Date: 08/10/24 Principal diagnosis: Reason for follow-up is pneumonia Patient is a 63-year-old male with a past medical history significant for diabetes mellitus hypertension hyperlipidemia atrial fibrillation sleep apnea patient has been brought to the hospital in respiratory distress, patient noted to be at has been reviewed the ICU tested positive for COVID subsequently did have persistent fever and white count concerning for possible aspiration pneumonia prompting this consultation. On today's evaluation that is 08/10/2024,the patient did have a low-grade fever of 99.7 F and known patient is hemodynamically stable patient remains to be debated on the vent FiO2 is up to 100% no significant purulent secretion through the ET or any other changes reported by the nursing staff. Patient white count 6.8, creatinine 0.81 Objective - Vital Signs Vital signs: Vital Signs Temp 97.6 F 08/10/24 04:00 Pulse 70 08/10/24 07:00 Resp 20 08/10/24 07:00 BP 161/98 08/10/24 07:00 Pulse Ox 93 L 08/10/24 07:00 FiO2 80 08/10/24 11:05 Intake & Output 08/09/24 08/10/24 08/10/24 18:59 06:59 18:59 Intake Total 7116.906 4900.900 232.091 Output Total 2450 1700 50 Balance -976.539 -575.100 182.091 Weight 223.3 kg Intake: IV 337 243 13 .9NS KVO 160 Lactated Ringers 1,000 ml 135 @ 75 mls/hr IV .[id number] [facility] Rx#:[id number] Lactated Ringers 500 ml @ 110 10 10 mls/hr IV .Q24H [facility] Rx#:[id number] Piperacillin-Tazobactam 3 100 .375 gm In Sodium Chloride 0.9% 100 ml @ 25 mls/hr IVPB Q8HR [facility] Rx# :[id number] Pressure Bag 42 33 3 Intake, IV Titration 491.461 296.900 174.091 Amount Piperacillin-Tazobactam 3 300 .375 gm In Sodium Chloride 0.9% 100 ml @ 25 mls/hr IVPB Q8HR [facility] Rx# :[id number] propofoL 1,000 mg In 191.461 296.900 174.091 Empty Bag 1 bag @ 20 MCG/ KG/MIN 25.855 mls/hr IV . Q3H53M [facility] Rx#:[id number] Tube Feeding 585 495 45 Other 60 90 Output: Urine 2450 1700 50 Other: Voiding Method Indwelling Catheter Indwelling Catheter ABP, PAP, CO, CI - Last Documented Arterial Blood Pressure 112/77 - Exam GENERAL DESCRIPTION: Middle-age man intubated on the vent RESPIRATORY SYSTEM: Unlabored breathing , decreased breath sounds at bases HEART: S1 S2 regular rate and rhythm , ABDOMEN: Soft , mild distention EXTREMITIES: Swelling to the leg no redness - Labs CBC & Chem 7: 08/11/24 05:00 08/11/24 11:48 Labs: Abnormal Lab Results - Last 24 Hours (Table) 08/09/24 08/09/24 08/10/24 Range/Units 17:51 20:25 04:50 RBC 3.94 L (4.30-5.90) m/uL Hgb 9.3 L (13.0-17.5) gm/dL Hct 31.4 L (39.0-53.0) % MCV 79.7 L (80.0-100.0) fL MCH 23.5 L (25.0-35.0) pg MCHC 29.5 L (31.0-37.0) g/dL RDW 16.3 H (11.5-15.5) % Lymphocytes # 0.6 L (1.0-4.8) k/uL ABG pH (7.35-7.45) ABG pO2 (83-108) mmHg ABG HCO3 (21-25) mmol/L ABG Total CO2 (19-24) mmol/L ABG O2 Saturation (94-97) % Hemoglobin (13.0-17.5) gm/dL Chloride (98-107) mmol/L Carbon Dioxide (22-30) mmol/L BUN (9-20) mg/dL Glucose (74-99) mg/dL POC Glucose (mg/dL) 256 H 251 H (70-110) mg/dL Calcium (8.4-10.2) mg/dL 08/10/24 08/10/24 08/10/24 Range/Units 04:50 05:30 06:05 RBC (4.30-5.90) m/uL Hgb (13.0-17.5) gm/dL Hct (39.0-53.0) % MCV (80.0-100.0) fL MCH (25.0-35.0) pg MCHC (31.0-37.0) g/dL RDW (11.5-15.5) % Lymphocytes # (1.0-4.8) k/uL ABG pH 7.47 H (7.35-7.45) ABG pO2 67 L (83-108) mmHg ABG HCO3 32 H (21-25) mmol/L ABG Total CO2 34 H (19-24) mmol/L ABG O2 Saturation 93.0 L (94-97) % Hemoglobin 8.1 L (13.0-17.5) gm/dL Chloride 96 L (98-107) mmol/L Carbon Dioxide 38 H (22-30) mmol/L BUN 25 H (9-20) mg/dL Glucose 230 H (74-99) mg/dL POC Glucose (mg/dL) 247 H (70-110) mg/dL Calcium 7.9 L (8.4-10.2) mg/dL 08/10/24 Range/Units 11:25 RBC (4.30-5.90) m/uL Hgb (13.0-17.5) gm/dL Hct (39.0-53.0) % MCV (80.0-100.0) fL MCH (25.0-35.0) pg MCHC (31.0-37.0) g/dL RDW (11.5-15.5) % Lymphocytes # (1.0-4.8) k/uL ABG pH (7.35-7.45) ABG pO2 (83-108) mmHg ABG HCO3 (21-25) mmol/L ABG Total CO2 (19-24) mmol/L ABG O2 Saturation (94-97) % Hemoglobin (13.0-17.5) gm/dL Chloride (98-107) mmol/L Carbon Dioxide (22-30) mmol/L BUN (9-20) mg/dL Glucose (74-99) mg/dL POC Glucose (mg/dL) 237 H (70-110) mg/dL Calcium (8.4-10.2) mg/dL Microbiology - Last 24 Hours (Table) 08/08/24 12:00 Gram Stain - Final Sputum Sputum Culture - Final Assessment and Plan (1) Pneumonia Current Visit: Yes Status: Acute Code(s): J18.9 - PNEUMONIA, UNSPECIFIED ORGANISM SNOMED Code(s): 805439812 (2) COVID-19 Current Visit: Yes Status: Acute Code(s): U07.1 - COVID-19 SNOMED Code(s): 764093598 Plan: 1patient presented to hospital about 5 days before initial evaluation in this patient came with acute respiratory failure requiring intubation patient did have features of sepsis as the patient did have fever elevated white count and tachycardia though tested positive for COVID-19 and did have procalcitonin 0.22 on admission and antibiotics not started initially however has been started yesterday and the patient feel better and seem to improving highly concerning for secondary bacterial pneumonia responsible for his fever and elevated white count 2-bloody sputum culture currently pending 3-patient fever pattern improved white normalized, continue with Zosyn 3.375 g every 8 hours while waiting for repeat culture to finalize Dictation was produced using [employer] dictation software. please excuse any grammatical, word or spelling errors. Time with Patient: Less than 30
--- NOTE | 2024-08-11 14:29 | P.PN ---
Subjective Progress Note Date: 08/11/24 Principal diagnosis: Reason for follow-up is pneumonia Patient is a 63-year-old male with a past medical history significant for diabetes mellitus hypertension hyperlipidemia atrial fibrillation sleep apnea patient has been brought to the hospital in respiratory distress, patient noted to be at has been reviewed the ICU tested positive for COVID subsequently did have persistent fever and white count concerning for possible aspiration pneumonia prompting this consultation. On today's evaluation that is 08/11/2023, Patient is afebrile this morning patient remains to be intubated on the vent FiO2 is currently down to 80% no significant purulent secretion through the ET or any changes reported by the nursing staff not requiring pressor support. Patient white count 6.8, creatinine is 0.78A sputum culture have been negative so far Objective - Vital Signs Vital signs: Vital Signs Temp 97.3 F L 08/11/24 12:00 Pulse 59 L 08/11/24 12:00 Resp 20 08/11/24 12:00 BP 151/108 08/11/24 12:00 Pulse Ox 92 L 08/11/24 12:00 FiO2 80 08/11/24 12:47 Intake & Output 08/10/24 08/11/24 08/11/24 18:59 06:59 18:59 Intake Total 1157.338 2921.913 542.095 Output Total 3535 3625 1775 Balance -2285.385 -2577.087 -1232.905 Weight 218.6 kg 218.6 kg Intake: IV 356 169 175 Lactated Ringers 500 ml @ 120 130 60 10 mls/hr IV .Q24H [facility] Rx#:[id number] Piperacillin-Tazobactam 3 200 100 .375 gm In Sodium Chloride 0.9% 100 ml @ 25 mls/hr IVPB Q8HR [facility] Rx# :[id number] Pressure Bag 36 39 15 Intake, IV Titration 263.615 293.913 142.095 Amount propofoL 1,000 mg In 263.615 293.913 142.095 Empty Bag 1 bag @ 20 MCG/ KG/MIN 25.855 mls/hr IV . Q3H53M [facility] Rx#:[id number] Tube Feeding 540 585 225 Other 90 Output: Urine 3535 3625 1775 Other: Voiding Method Indwelling Catheter Indwelling Catheter Indwelling Catheter # Bowel Movements 1 ABP, PAP, CO, CI - Last Documented Arterial Blood Pressure 127/71 - Exam GENERAL DESCRIPTION: Middle-age man intubated on the vent RESPIRATORY SYSTEM: Unlabored breathing , decreased breath sounds at bases HEART: S1 S2 regular rate and rhythm , ABDOMEN: Soft , mild distention EXTREMITIES: Swelling to the leg no redness - Labs CBC & Chem 7: 08/11/24 05:00 08/11/24 11:48 Labs: Abnormal Lab Results - Last 24 Hours (Table) 08/10/24 08/11/24 08/11/24 Range/Units 17:36 00:53 05:00 RBC 3.79 L (4.30-5.90) m/uL Hgb 8.7 L (13.0-17.5) gm/dL Hct 29.9 L (39.0-53.0) % MCV 78.8 L (80.0-100.0) fL MCH 23.0 L (25.0-35.0) pg MCHC 29.2 L (31.0-37.0) g/dL RDW 16.4 H (11.5-15.5) % ABG pH (7.35-7.45) ABG pCO2 (35-45) mmHg ABG pO2 (83-108) mmHg ABG HCO3 (21-25) mmol/L ABG Total CO2 (19-24) mmol/L Hemoglobin (13.0-17.5) gm/dL Sodium (137-145) mmol/L Chloride (98-107) mmol/L Carbon Dioxide (22-30) mmol/L BUN (9-20) mg/dL Glucose (74-99) mg/dL POC Glucose (mg/dL) 250 H 242 H (70-110) mg/dL Calcium (8.4-10.2) mg/dL 08/11/24 08/11/24 08/11/24 Range/Units 05:00 05:11 05:19 RBC (4.30-5.90) m/uL Hgb (13.0-17.5) gm/dL Hct (39.0-53.0) % MCV (80.0-100.0) fL MCH (25.0-35.0) pg MCHC (31.0-37.0) g/dL RDW (11.5-15.5) % ABG pH 7.49 H (7.35-7.45) ABG pCO2 51 H (35-45) mmHg ABG pO2 70 L (83-108) mmHg ABG HCO3 39 H (21-25) mmol/L ABG Total CO2 41 H (19-24) mmol/L Hemoglobin 9.2 L (13.0-17.5) gm/dL Sodium 136 L (137-145) mmol/L Chloride 93 L (98-107) mmol/L Carbon Dioxide 34 H (22-30) mmol/L BUN 27 H (9-20) mg/dL Glucose 217 H (74-99) mg/dL POC Glucose (mg/dL) 231 H (70-110) mg/dL Calcium 8.1 L (8.4-10.2) mg/dL 08/11/24 Range/Units 11:23 RBC (4.30-5.90) m/uL Hgb (13.0-17.5) gm/dL Hct (39.0-53.0) % MCV (80.0-100.0) fL MCH (25.0-35.0) pg MCHC (31.0-37.0) g/dL RDW (11.5-15.5) % ABG pH (7.35-7.45) ABG pCO2 (35-45) mmHg ABG pO2 (83-108) mmHg ABG HCO3 (21-25) mmol/L ABG Total CO2 (19-24) mmol/L Hemoglobin (13.0-17.5) gm/dL Sodium (137-145) mmol/L Chloride (98-107) mmol/L Carbon Dioxide (22-30) mmol/L BUN (9-20) mg/dL Glucose (74-99) mg/dL POC Glucose (mg/dL) 276 H (70-110) mg/dL Calcium (8.4-10.2) mg/dL Microbiology - Last 24 Hours (Table) 08/05/24 08:28 Blood Culture - Final Blood 08/08/24 12:00 Gram Stain - Final Sputum Sputum Culture - Final Assessment and Plan (1) Pneumonia Current Visit: Yes Status: Acute Code(s): J18.9 - PNEUMONIA, UNSPECIFIED ORGANISM SNOMED Code(s): 189343484 (2) COVID-19 Current Visit: Yes Status: Acute Code(s): U07.1 - COVID-19 SNOMED Code(s): 549999456 Plan: 1patient presented to hospital about 5 days before initial evaluation in this patient came with acute respiratory failure requiring intubation patient did have features of sepsis as the patient did have fever elevated white count and tachycardia though tested positive for COVID-19 and did have procalcitonin 0.22 on admission and antibiotics not started initially however has been started yesterday and the patient feel better and seem to improving highly concerning for secondary bacterial pneumonia responsible for his fever and elevated white count 2-blood and sputum culture have been negative so far 3-patient fever has resolved and white count has normalized, patient currently b eing treated with Zosyn 3.375 g every 8 hours and monitor clinical course closely Dictation was produced using [employer] dictation software. please excuse any grammatical, word or spelling errors. Time with Patient: Less than 30
--- NOTE | 2024-08-11 14:37 | P.PN ---
Subjective Progress Note Date: 08/11/24 On 08/08/2024, the patient is being seen in follow-up in the intensive care unit. This is a morbidly obese 63-year-old male patient who is currently intubated on the mechanical ventilator. Initially presented to us on 08/05/2024 for respiratory distress and the patient became unresponsive. He is known to have morbid obesity, COPD, chronic A-fib, CVA, hypertension hyperlipidemia. [facility] in a [facility] and the patient was found to be unresponsive and not breathing properly. His pulse ox was also very low and the patient was hypotensive and minimally responsive. He came into the emergency department where he was intubated and placed on the mechanical ventilator. Since admission, the patient was found to be COVID-19 positive. He had a follow-up chest x-ray today that shows significant rotation, ET tube is probably 1 cm above the damian and there is evidence of left lower lobe consolidat ion/effusion. Noted at the time of admission, he had also a right upper lobe consolidation in addition to left lower lobe consolidation. Sputum samples have been negative as collected on 08/05/2024 and blood cultures been also negative. No significant leukocytosis. The patient is currently on no antibiotics. The patient is on propofol which is running at 30 mcg/kg/min, and is also on fentanyl at 1 mcg/kg/h.. The patient is on assist-control mode of mechanical ventilation at rate of 20, tidal volume of 500, FiO2 of 60 % with a PEEP of 10. Blood gases from today shows a pH of 7.46 with a pCO2 of 51 and pO2 of 69 and this was an FiO2 of 60%. The patient is on lactated Ringer at rate of 75 cc an hour. The patient receiving vital high-protein at rate of 55 cc an hour. He remains in atrial fibrillation with rapid ventricular response. He is off Cardizem drip . He is also on metoprolol 12.5 mg twice a day and anticoagulation with Eliquis 5 mg p.o. twice a day. He is on Levemir insulin 15 units at bedtime. Earlier this morning, the patient noted to have episodic generalized tonic-clonic seizure-like activity. The patient was kept on propofol. He was given Ativan 2 mg IV push x 2 and started on Keppra. CAT scan of the brain is to follow. EEG is to follow. Neurology consultation is to follow. The patient is on lactated Ringer at rate of 75 cc an hour. Norepinephrine was also started this morning and is currently running at 0.03 mcg/kg/min. He is on EN , vital HP at 35 cc/hr On 08/09/2024, the patient is being seen for a follow-up. The patient remains intubated on the mechanical ventilator. This morning, the patient is on propofol which is running at 15 mcg/kg/min. Noted the propofol rate was gradually reduced as of yesterday and the fentanyl has been discontinued. Overnight, the patient continued to have bradycardic events and the heart rate was dropping as low as in the 40s and the rhythm remains atrial fibrillation. The patient was taken off the beta-blockers. The patient this morning is on assist-control mode of mechanical ventilation at rate of 20, tidal volume of 500, FiO2 of 60% with a PEEP of 5. Blood gas showed a pH of 7.51 with a pCO2 of 43 and pO2 of 64. Chest x-ray showing bilateral airspace disease, worse on the right essentially involving the lung bases. The patient is currently on no pressors. The patient remains on vital high-protein at rate of 45 cc an hour. No further seizure activity has been noted. The patient remains on IV Keppra. EEG showed encephalopathy without any seizure activity. Neurology on the case. The patient remains on IV Zosyn. The patient continues to have significant amount of edema in all 4 extremities and the patient remains on IV Lasix 40 mg every 12 hours. Fluid balance is +180 cc over the past 24 hours. Repeat cultures were sent and the results are still pending. The patient remains on anticoagulation with Eliquis regarding chronic atrial fibrillation. Cardizem drip is off. Metoprolol is currently on hold. On 08/10/2024, the patient is being seen for a follow-up. This morning, the patient is on propofol running at 20 mcg/kg/min. Remains deeply sedated. He is morbidly obese and he remains on the mechanical ventilator due to hypoxic/hypercapnic respiratory failure. This morning, he is on assist-control mode with rate of 20, tidal volume of 500, FiO2 is at 80% with a PEEP of 14. pH is 7.47 with a pCO2 of 44 and pO2 of 67. Chest x-ray shows bilateral pleural effusions and an area of dense consolidation in left upper lobe. There are signs of fluid overload as the patient continues to have extensive edema in all 4 extremities. He is on IV Lasix. Fluid balance is -1.5 L over the past 24 hours. The patient remains on IV Zosyn as an empiric antibiotic coverage. No pressors. No seizure activity and the patient remains on IV Keppra. EEG showed no evidence of any ongoing seizure activity. Remains on vital high-protein at rate of 45 cc an hour and the patient is on Levemir insulin 15 units twice a day. Blood work showed a white cell count of 6.8 with a hemoglobin 9.3 and a platelet count of 310. Sodium level is at 137, BUN is 25 with a creatinine of 0.8 and a potassium level is at 3.8. Procalcitonin level is at 0.48. The patient is afebrile. Hemodynamically, he is in low rate atrial fibrillation. Remains on anticoagulation with Eliquis. On 08/11/2024, the patient is being seen for a follow-up. The patient remains on propofol running at 20 mcg/kg/min. Sedation holiday was done today and the patient was arousable and he was able to follow simple commands. Nevertheless, is not ready for weaning with extubation he was placed back on propofol. At the same time, the patient is on assist-control mode of mechanical ventilation at a rate of 20, tidal volume of 500, FiO2 of 100% with a PEEP of 16. Noted his oxygenation got worse overnight and the patient was placed on 100% FiO2. Current pulse ox is 97%. She has been gradually been his FiO2. The blood gases showed a pH of 7.49 with a pCO2 of 51 and pO2 of 76. The patient is currently on Lasix 40 mg IV every 8 hours and Zaroxolyn 5 mg p.o. twice a day. The net fluid balance is -4.8 L over the past 24 hours. Continues to have evidence of bilateral pleural effusion and extensive pulmonary edema in addition to extensive swelling in the upper and lower extremities bilaterally. He is on Levemir insulin 15 units twice daily. He is on vital high-protein at rate of 45 cc an hour. No seizure activity has been noted. Remains on IV Zosyn. Afebrile. Hemodynamically stable. The white cell count is 6.8 with a hemoglobin 8.7 and a platelet count of 333. The sodium levels at 136, bicarb levels at 34, potassium is at 3.9, BUN is 27 with a creatinine of 0.7. No other significant events overnight. Objective - Vital Signs Vital signs: Vital Signs Temp 96.8 F L 08/11/24 08:00 Pulse 46 L 08/11/24 08:00 Resp 20 08/11/24 08:00 BP 114/75 08/11/24 08:00 Pulse Ox 97 08/11/24 08:00 FiO2 100 08/11/24 08:07 Intake & Output 08/10/24 08/11/24 08/11/24 18:59 06:59 18:59 Intake Total 3816.040 0647.913 87.476 Output Total 3535 3625 Balance -2285.385 -2577.087 87.476 Weight 218.6 kg Intake: IV 356 169 Lactated Ringers 500 ml @ 120 130 10 mls/hr IV .Q24H FABIENNE Rx#:[id number] Piperacillin-Tazobactam 3 200 .375 gm In Sodium Chloride 0.9% 100 ml @ 25 mls/hr IVPB Q8HR FABIENNE Rx# :[id number] Pressure Bag 36 39 Intake, IV Titration 263.615 293.913 87.476 Amount propofoL 1,000 mg In 263.615 293.913 87.476 Empty Bag 1 bag @ 20 MCG/ KG/MIN 25.855 mls/hr IV . Q3H53M FABIENNE Rx#:[id number] Tube Feeding 540 585 Other 90 Output: Urine 3535 3625 Other: Voiding Method Indwelling Catheter Indwelling Catheter # Bowel Movements 1 ABP, PAP, CO, CI - Last Documented Arterial Blood Pressure 102/66 - Exam No acute distress, the patient is sedated, and, comfortable intubated on the mechanical ventilator. Orogastric and orotracheal tube are both in place. The patient is morbidly obese with a body mass index of 64.2. HEENT examination is grossly unremarkable. Mucous membranes are moist. No oral lesions. Neck supple. Full range of motion. No adenopathy thyromegaly or neck vein distention. Cardiovascular examination reveals irregular rhythm consistent with atrial fibrillation. S1-S2 normal. No S3 or S4. No discernible murmur noted. Heart sounds are very distant. The patient is bradycardic, still in atrial fibrillation. Lungs reveal mostly clear breath sounds. Scattered rhonchi and crackles are n oted. No wheezes. Breath sounds equal bilaterally. Abdomen is soft, but very obese. No bowel sounds. Extremities are intact. There is significant amount of edema lower extremities bilaterally, diminished pulses, no cyanosis or clubbing Skin is without rash or lesion. Neurologic examination cannot be evaluated at this time. The patient is sedated on propofol. - Labs CBC & Chem 7: 08/11/24 05:00 08/11/24 11:48 Labs: Abnormal Lab Results - Last 24 Hours (Table) 08/10/24 08/10/24 08/11/24 Range/Units 11:25 17:36 00:53 RBC (4.30-5.90) m/uL Hgb (13.0-17.5) gm/dL Hct (39.0-53.0) % MCV (80.0-100.0) fL MCH (25.0-35.0) pg MCHC (31.0-37.0) g/dL RDW (11.5-15.5) % ABG pH (7.35-7.45) ABG pCO2 (35-45) mmHg ABG pO2 (83-108) mmHg ABG HCO3 (21-25) mmol/L ABG Total CO2 (19-24) mmol/L Hemoglobin (13.0-17.5) gm/dL Sodium (137-145) mmol/L Chloride (98-107) mmol/L Carbon Dioxide (22-30) mmol/L BUN (9-20) mg/dL Glucose (74-99) mg/dL POC Glucose (mg/dL) 237 H 250 H 242 H (70-110) mg/dL Calcium (8.4-10.2) mg/dL 08/11/24 08/11/24 08/11/24 Range/Units 05:00 05:00 05:11 RBC 3.79 L (4.30-5.90) m/uL Hgb 8.7 L (13.0-17.5) gm/dL Hct 29.9 L (39.0-53.0) % MCV 78.8 L (80.0-100.0) fL MCH 23.0 L (25.0-35.0) pg MCHC 29.2 L (31.0-37.0) g/dL RDW 16.4 H (11.5-15.5) % ABG pH (7.35-7.45) ABG pCO2 (35-45) mmHg ABG pO2 (83-108) mmHg ABG HCO3 (21-25) mmol/L ABG Total CO2 (19-24) mmol/L Hemoglobin (13.0-17.5) gm/dL Sodium 136 L (137-145) mmol/L Chloride 93 L (98-107) mmol/L Carbon Dioxide 34 H (22-30) mmol/L BUN 27 H (9-20) mg/dL Glucose 217 H (74-99) mg/dL POC Glucose (mg/dL) 231 H (70-110) mg/dL Calcium 8.1 L (8.4-10.2) mg/dL 08/11/24 Range/Units 05:19 RBC (4.30-5.90) m/uL Hgb (13.0-17.5) gm/dL Hct (39.0-53.0) % MCV (80.0-100.0) fL MCH (25.0-35.0) pg MCHC (31.0-37.0) g/dL RDW (11.5-15.5) % ABG pH 7.49 H (7.35-7.45) ABG pCO2 51 H (35-45) mmHg ABG pO2 70 L (83-108) mmHg ABG HCO3 39 H (21-25) mmol/L ABG Total CO2 41 H (19-24) mmol/L Hemoglobin 9.2 L (13.0-17.5) gm/dL Sodium (137-145) mmol/L Chloride (98-107) mmol/L Carbon Dioxide (22-30) mmol/L BUN (9-20) mg/dL Glucose (74-99) mg/dL POC Glucose (mg/dL) (70-110) mg/dL Calcium (8.4-10.2) mg/dL Microbiology - Last 24 Hours (Table) 08/05/24 08:28 Blood Culture - Final Blood 08/08/24 12:00 Gram Stain - Final Sputum Sputum Culture - Final Assessment and Plan Plan: Acute hypoxic respiratory failure, intubated on the mechanical ventilator. Acute hypoxic respiratory failure is likely multifactorial. The patient has multifocal airspace disease with COVID-19 pneumonia. Also suspect fluid overload as the patient may have an underlying bilateral pleural effusion. Unable to obtain a CAT scan of the chest because of his body habitus as the patient has a BMI of 66.8. Superimposed bacterial infection is felt to be less likely as the patient has no leukocytosis, no fever and procalcitonin level is elevated. No significant respiratory secretions and the sputum culture has been negative.. Remains intubated on mechanical ventilator. Patient was intubated on 08/05/2024. He is a [facility] resident. The patient remains on a high level of PEEP of 16 and FiO2 is being gradually weaned off. Chest x-ray findings are unchanged and the patient continues to have volume overload and bilateral pleural effusion possible pneumonia. Acute coronavirus infection infection and the patient tested positive at the time of admission on 08/05/2024 Chronic atrial fibrillation, currently bradycardic and still in atrial fibrillation, off Cardizem drip and off metoprolol and still anticoagulated with Eliquis, and the patient remains in the low rate atrial fibrillation Morbid obesity Acute leukocytosis, improved New onset seizure activity, started on IV Keppra. No further seizure activity has been noted. EEG was negative for any ongoing seizure activity. History of CVA. History of hyperlipidemia. History of hypertension. History of obstructive sleep apnea syndrome. Obesity hypoventilation syndrome with BMI of 63.9 also contributing to his hypercapnia/chronic CHF with preserved LV function/diastolic heart failure Diabetes mellitus type 2, maintained on Levemir insulin BPH Chronic metabolic alkalosis,, secondary to chronic hypercapnia History of iron deficiency anemia Polysubstance abuse with previous drug screen showing cocaine and benzodiazepines History of right diabetic foot infection with previous I&D back in July 2023 and polymicrobial growth. Plan: Sedation holiday was given today and the patient was responsive. Continue ventilator support, no changes today Continue Decadron 6 mg IV every 24 hours Continue empiric antibiotic coverage with IV Zosyn as the patient is a [facility] resident Continue Lasix 40 mg IV every 8 hours Continue Zaroxolyn 5 mg p.o. twice a day Fluid balance is negative Monitor electrolytes and replace potassium IV fluids to KVO check sputum Cx, are negative Unable to do a CAT scan of the chest due to his morbid obese body habitus CAT scan of the brain, no contrast was completed yesterday it was negative for any acute abnormalities Continue IV Keppra Management of atrial fibrillation and the patient remains off Cardizem drip and off metoprolol and Eliquis Enteral feeding for nutritional support with vital HP We will continue to follow. Condition remains critical. Critical care evaluation that was done more than 30 minutes Time with Patient: Greater than 30
--- NOTE | 2024-08-11 15:05 | P.PN ---
Subjective Progress Note Date: 08/11/24 Patient in the intensive care unit currently intubated and sedated on the mechanical ventilator. Patient's chest x-ray today does reveal worsening CHF. He is significantly edematous. Remains sedated with IV fentanyl and propofol. He continues on IV Zosyn. Patient was started on enteral feedings today. blood sugars are elevated in the 200s. 08/07/2024 Patient was evaluated in follow-up in the medical floor he is currently intubated and sedated on the mechanical ventilator. Patient had gone into atrial fibrillation with rapid ventricular rate overnight requiring IV Cardizem. He has been since transition to oral metoprolol with heart rate better controlled today. He does have a noted history of atrial fibrillation was resumed on his oral Eliquis yesterday. Patient currently has LR running at 75 mL/h he does remain quite edematous mostly in his lower extremities. Patient was noted to have a small amount of yellow bile emesis there has been no residual with his tube feedings and they are continued at a slow rate today of 10 mL/h. He is febrile today temperature of 100.8. An abdominal x-ray was unable to be completed due to patient's body habitus and he is unable to be transported down for x-ray at this time. 08/08/2024 Patient is seen in follow-up in the ICU and overnight placed on mechanical ventilation as patient was noted to have what appeared to be seizure-like activity with no history of seizures and neurology was consulted. Patient was placed on mechanical ventilation currently with an FiO2 of 60% and PEEP is 10 with pulmonary putty patcher following. Patient remains with low-grade temps and also started on Keppra and is maintained on antibiotics. Cardiology following as well maintained on oral anticoagulation and has been having heart rates in the 40s. Continued on low-dose metoprolol and will continue to monitor closely. Per nursing staff patient also requiring low-dose Levophed and has been started on 40 of IV Lasix daily due to significant swelling. Will follow-up on repeat labs and continue to monitor closely. 08/09/2024 Patient is seen in follow-up with multiple consultations following including pulmonary, neurology, cardiology, and infectious disease consulted. Patient underwent EEG which was abnormal with no epileptiform discharges noted. Patient is continued on Keppra for now. Heart rates in the low 40s although per nursing staff slightly improved this afternoon and is being monitored closely with cardiology following. Patient is continued on Lasix for diuresis with significant volume overload. Wean pressors as tolerated and follow-up on repeat labs. Patient's blood sugars have been more elevated and possible steroid effect will increase long-acting and also Accu-Cheks before meals and at bedtime as well as sliding scale. Adjust accordingly. 08/10/2024 Patient is seen in follow-up today continues on mechanical ventilation in the ICU with an FiO2 of 80% and PEEP is 14. Undergoing sedation holidays and per nursing staff patient will open his eyes and attempt to track although not moving. Patient continues to be extremely edematous and is diuresing maintained on IV Lasix. Heart rates slightly improved and will continue current regimen per cardiology. No plans on extubation at this time. Per nursing staff patient has not had a bowel movement and is continued on bowel regimen. Abdomen is soft and there is positive bowel sounds noted. Patient continued on tube feeds. Highly recommend aspiration precautions and head of the bed elevated 30 to 45 degrees at all times. 08/11/2024 Evaluated in follow-up remains in the intensive care unit he is currently intubated and sedated on the mechanical ventilator with an FiO2 of 100% and a PEEP of 16. Patient will be undergoing a sedation holiday again today. He is continued on IV Lasix 40 mg every 8 hours and is diuresing well. His lower extremity remains significantly edematous. X-ray today reveals worsening left greater than right bilateral acute infiltrate. Acetone level was found to be 0.48. He does continue on IV Zosyn and there is concerns for aspiration with head of the bed recommended to stay at 35 to 40 degrees at all times. White blood cell count of 6.8, hemoglobin 8.7, sodium levels 136, BUN of 27 creatinine of 0.78. Unable to complete review of systems as patient is currently intubated and sedated PHYSICAL EXAMINATION: GENERAL: The patient is intubated and sedated. He is morbidly obese, well- developed, elderly appearing, extremely edematous of upper and lower extremities and body habitus, ill-appearing. FiO2 increased at 80% with a PEEP of 14 HEENT: Pupils are round and equally reacting to light. EOMI. No scleral icterus. No conjunctival pallor. Normocephalic, atraumatic. No pharyngeal erythema. No thyromegaly. CARDIOVASCULAR: S1 and S2 muffled, irregular PULMONARY: Diminished breath sounds bilaterally otherwise chest is clear to auscultation, no wheezing , no crackles. ABDOMEN: Soft, obese, nontender, nondistended, normoactive bowel sounds. No palpable organomegaly. Kelly catheter in place MUSCULOSKELETAL: No joint swelling or deformity. EXTREMITIES: No cyanosis, clubbing, continues with significant lower extremity edema bilaterally pitting right lower leg superficial wound with dressing in place changed yesterday NEUROLOGICAL: Not following commands. Unable to completely assess as patient is intubated and maintained on sedation SKIN: No rashes. no petechiae. Assessment: Acute hypoxic respiratory failure requiring intubation on admission, currently on mechanical ventilation COVID infection and possible pneumonia, concerns for aspiration pneumonia Possible seizure like activity, new onset, EEG was abnormal although not showing any epileptiform discharges, continued on Keppra for now with neurology following Possible acute COPD exacerbation versus obesity hypoventilation syndrome Possible bacterial pneumonia, healthcare associated with right upper lobe and left lower lobe infiltrates Severe sepsis requiring pressor support Acute on chronic diastolic heart failure with preserved EF A-fib and RVR, present on admission now with slow ventricular rate dropping into the 30s. Patient heart rate slightly improving and will continue current regimen per cardiology Right leg wound with recent cultures showing enterococcus faecalis, ESBL and Providencia Rettgeri Diabetes Mellitus type 2, uncontrolled with hyperglycemia Morbid obesity with a BMI of 64.2 Chronic anemia Lactic acidemia/acidosis, improved GI prophylaxis DVT prophylaxis Full Code Plan: Continue with antibiotic in the form of Zosyn with infectious disease following. Highly concerned for aspiration pneumonia. Continue with intubation and mechanical ventilation. FiO2 is 100% with a PEEP being increased to 16 and desats quickly per nursing staff. Wean as tolerated. No plans for extubation at this time and undergoing sedation holidays. Patient will open eyes although not following commands at this time. Continue enteral feedings, tube feeds were resumed and tolerating thus far.. Continue with aspiration precautions and head of the bed elevated 45 degrees at all times and monitor closely for residuals Patient has not had a bowel movement documented will continue bowel regimen and also daily suppositories. Abdominal x-ray was ordered although patient continues to bradycardia down into the 30s when attempting to lie somewhat flat and unable to perform at this time or bedside as his body habitus is quite large. Abdomen is soft with positive bowel sounds noted on exam Patient does not have history of seizures and was given a dose of Keppra and neurology following underwent EEG which was abnormal although not showing any epileptiform discharges. No further seizure-like activity noted. Continue cardiac telemetry with cardiology following. Continued on low-dose metoprolol Per pulmonary putty patcher patient has been started on IV Lasix and is being increased to every 8 hours. And will continue to monitor kidney functions closely. Replace electrolytes per protocol Continue eliquis and monitor for any signs of bleeding. Continue with Accu-Cheks before meals and at bedtime and sliding scale along with long-acting. Adjust insulins accordingly. Will increase long-acting insulin to twice daily Repeat blood work in the AM Overall prognosis is guarded The impression and plan of care has been dictated by Susannah Campbell, Nurse Practitioner as directed. Dr. Jackie MD I have performed a history and physical examination and medical decision making of this patient, discussed the same with the dictator, and agree with the dictators assessment and plan as written, documented as a scribe. Based on total visit time, I have performed more than 50% of this visit. Objective - Vital Signs Vital signs: Vital Signs Temp 97.3 F L 08/11/24 12:00 Pulse 61 08/11/24 14:00 Resp 20 08/11/24 14:00 BP 121/93 08/11/24 13:00 Pulse Ox 89 L 08/11/24 14:00 FiO2 80 08/11/24 14:00 Intake & Output 08/10/24 08/11/24 08/11/24 18:59 06:59 18:59 Intake Total 2120.487 1528.913 733.476 Output Total 3535 3625 2150 Balance -2285.385 -2577.087 -1416.524 Weight 218.6 kg 218.6 kg Intake: IV 356 169 201 Lactated Ringers 500 ml @ 120 130 80 10 mls/hr IV .Q24H [facility] Rx#:[id number] Piperacillin-Tazobactam 3 200 100 .375 gm In Sodium Chloride 0.9% 100 ml @ 25 mls/hr IVPB Q8HR [facility] Rx# :[id number] Pressure Bag 36 39 21 Intake, IV Titration 263.615 293.913 187.476 Amount propofoL 1,000 mg In 263.615 293.913 187.476 Empty Bag 1 bag @ 20 MCG/ KG/MIN 25.855 mls/hr IV . Q3H53M [facility] Rx#:[id number] Tube Feeding 540 585 315 Other 90 30 Output: Urine 2216 0635 2333 Other: Voiding Method Indwelling Catheter Indwelling Catheter Indwelling Catheter # Bowel Movements 1 ABP, PAP, CO, CI - Last Documented Arterial Blood Pressure 127/75 - Labs CBC & Chem 7: 08/11/24 05:00 08/11/24 11:48 Labs: Abnormal Lab Results - Last 24 Hours (Table) 08/10/24 08/11/24 08/11/24 Range/Units 17:36 00:53 05:00 RBC 3.79 L (4.30-5.90) m/uL Hgb 8.7 L (13.0-17.5) gm/dL Hct 29.9 L (39.0-53.0) % MCV 78.8 L (80.0-100.0) fL MCH 23.0 L (25.0-35.0) pg MCHC 29.2 L (31.0-37.0) g/dL RDW 16.4 H (11.5-15.5) % ABG pH (7.35-7.45) ABG pCO2 (35-45) mmHg ABG pO2 (83-108) mmHg ABG HCO3 (21-25) mmol/L ABG Total CO2 (19-24) mmol/L Hemoglobin (13.0-17.5) gm/dL Sodium (137-145) mmol/L Chloride (98-107) mmol/L Carbon Dioxide (22-30) mmol/L BUN (9-20) mg/dL Glucose (74-99) mg/dL POC Glucose (mg/dL) 250 H 242 H (70-110) mg/dL Calcium (8.4-10.2) mg/dL 08/11/24 08/11/24 08/11/24 Range/Units 05:00 05:11 05:19 RBC (4.30-5.90) m/uL Hgb (13.0-17.5) gm/dL Hct (39.0-53.0) % MCV (80.0-100.0) fL MCH (25.0-35.0) pg MCHC (31.0-37.0) g/dL RDW (11.5-15.5) % ABG pH 7.49 H (7.35-7.45) ABG pCO2 51 H (35-45) mmHg ABG pO2 70 L (83-108) mmHg ABG HCO3 39 H (21-25) mmol/L ABG Total CO2 41 H (19-24) mmol/L Hemoglobin 9.2 L (13.0-17.5) gm/dL Sodium 136 L (137-145) mmol/L Chloride 93 L (98-107) mmol/L Carbon Dioxide 34 H (22-30) mmol/L BUN 27 H (9-20) mg/dL Glucose 217 H (74-99) mg/dL POC Glucose (mg/dL) 231 H (70-110) mg/dL Calcium 8.1 L (8.4-10.2) mg/dL 08/11/24 Range/Units 11:23 RBC (4.30-5.90) m/uL Hgb (13.0-17.5) gm/dL Hct (39.0-53.0) % MCV (80.0-100.0) fL MCH (25.0-35.0) pg MCHC (31.0-37.0) g/dL RDW (11.5-15.5) % ABG pH (7.35-7.45) ABG pCO2 (35-45) mmHg ABG pO2 (83-108) mmHg ABG HCO3 (21-25) mmol/L ABG Total CO2 (19-24) mmol/L Hemoglobin (13.0-17.5) gm/dL Sodium (137-145) mmol/L Chloride (98-107) mmol/L Carbon Dioxide (22-30) mmol/L BUN (9-20) mg/dL Glucose (74-99) mg/dL POC Glucose (mg/dL) 276 H (70-110) mg/dL Calcium (8.4-10.2) mg/dL Microbiology - Last 24 Hours (Table) 08/05/24 08:28 Blood Culture - Final Blood 08/08/24 12:00 Gram Stain - Final Sputum Sputum Culture - Final Assessment and Plan Time with Patient: Less than 30
--- NOTE | 2024-08-11 16:50 | P.PN ---
Subjective Progress Note Date: 08/10/24 08/10/2024: Patient was seen for a follow-up. Patient currently on propofol 20 mcg/kg's per minute. Per nurse report, with the sedation holiday, patient opens eyes, coughing gagging and drinking well. However not moving his limbs. Sedation holiday was done for about 30 minutes. 08/09/2024: Patient was seen for follow-up. Patient is off sedation. Patient opens his eyes, but the gaze is deviated upwards. Per nurse report, patient became bradycardic last night going down to 25's. X-ray revealed worsening congestion. Lasix was increased. Patient subsequently oxygen saturation decreased, therefore the PEEP was increased to 14. Last night nurse noted that he was not much responsive. It was the same time he was bradycardic she weaned down the sedation. At present patient is on propofol only 15 mcg/kg's per minute. Fentanyl was turned off at 4 PM yesterday. No seizure-like activity noted. Objective - Vital Signs Vital signs: Vital Signs Temp 98.1 F 08/10/24 16:00 Pulse 64 08/10/24 17:00 Resp 20 08/10/24 17:00 BP 104/69 08/10/24 17:00 Pulse Ox 91 L 08/10/24 17:00 FiO2 100 08/10/24 17:00 Intake & Output 08/09/24 08/10/24 08/10/24 18:59 06:59 18:59 Intake Total 4257.289 2614.900 1191.615 Output Total 2450 1700 2935 Balance -976.539 -575.100 -1743.385 Weight 223.3 kg Intake: IV 337 243 343 .9NS KVO 160 Lactated Ringers 1,000 ml 135 @ 75 mls/hr IV .[id number] [facility] Rx#:[id number] Lactated Ringers 500 ml @ 110 110 10 mls/hr IV .Q24H [facility] Rx#:[id number] Piperacillin-Tazobactam 3 100 200 .375 gm In Sodium Chloride 0.9% 100 ml @ 25 mls/hr IVPB Q8HR [facility] Rx# :[id number] Pressure Bag 42 33 33 Intake, IV Titration 491.461 296.900 263.615 Amount Piperacillin-Tazobactam 3 300 .375 gm In Sodium Chloride 0.9% 100 ml @ 25 mls/hr IVPB Q8HR [facility] Rx# :[id number] propofoL 1,000 mg In 191.461 296.900 263.615 Empty Bag 1 bag @ 20 MCG/ KG/MIN 25.855 mls/hr IV . Q3H53M [facility] Rx#:[id number] Tube Feeding 585 495 495 Other 60 90 90 Output: Urine 2450 1700 2935 Other: Voiding Method Indwelling Catheter Indwelling Catheter ABP, PAP, CO, CI - Last Documented Arterial Blood Pressure 103/60 - Exam Patient is intubated, on mild sedation 20 mcg/kg's per minute. No obvious seizure-like activity noticed. Patient on noxious stimulus, opens the eyes and makes eye contact. Pupils are round and reacting. Please refer to above for nursing report. Patient at present sedated. - Labs CBC & Chem 7: 08/11/24 05:00 08/11/24 11:48 Labs: Abnormal Lab Results - Last 24 Hours (Table) 08/09/24 08/10/24 08/10/24 Range/Units 20:25 04:50 04:50 RBC 3.94 L (4.30-5.90) m/uL Hgb 9.3 L (13.0-17.5) gm/dL Hct 31.4 L (39.0-53.0) % MCV 79.7 L (80.0-100.0) fL MCH 23.5 L (25.0-35.0) pg MCHC 29.5 L (31.0-37.0) g/dL RDW 16.3 H (11.5-15.5) % Lymphocytes # 0.6 L (1.0-4.8) k/uL ABG pH (7.35-7.45) ABG pO2 (83-108) mmHg ABG HCO3 (21-25) mmol/L ABG Total CO2 (19-24) mmol/L ABG O2 Saturation (94-97) % Hemoglobin (13.0-17.5) gm/dL Chloride 96 L (98-107) mmol/L Carbon Dioxide 38 H (22-30) mmol/L BUN 25 H (9-20) mg/dL Glucose 230 H (74-99) mg/dL POC Glucose (mg/dL) 251 H (70-110) mg/dL Calcium 7.9 L (8.4-10.2) mg/dL 08/10/24 08/10/24 08/10/24 Range/Units 05:30 06:05 11:25 RBC (4.30-5.90) m/uL Hgb (13.0-17.5) gm/dL Hct (39.0-53.0) % MCV (80.0-100.0) fL MCH (25.0-35.0) pg MCHC (31.0-37.0) g/dL RDW (11.5-15.5) % Lymphocytes # (1.0-4.8) k/uL ABG pH 7.47 H (7.35-7.45) ABG pO2 67 L (83-108) mmHg ABG HCO3 32 H (21-25) mmol/L ABG Total CO2 34 H (19-24) mmol/L ABG O2 Saturation 93.0 L (94-97) % Hemoglobin 8.1 L (13.0-17.5) gm/dL Chloride (98-107) mmol/L Carbon Dioxide (22-30) mmol/L BUN (9-20) mg/dL Glucose (74-99) mg/dL POC Glucose (mg/dL) 247 H 237 H (70-110) mg/dL Calcium (8.4-10.2) mg/dL 08/10/24 Range/Units 17:36 RBC (4.30-5.90) m/uL Hgb (13.0-17.5) gm/dL Hct (39.0-53.0) % MCV (80.0-100.0) fL MCH (25.0-35.0) pg MCHC (31.0-37.0) g/dL RDW (11.5-15.5) % Lymphocytes # (1.0-4.8) k/uL ABG pH (7.35-7.45) ABG pO2 (83-108) mmHg ABG HCO3 (21-25) mmol/L ABG Total CO2 (19-24) mmol/L ABG O2 Saturation (94-97) % Hemoglobin (13.0-17.5) gm/dL Chloride (98-107) mmol/L Carbon Dioxide (22-30) mmol/L BUN (9-20) mg/dL Glucose (74-99) mg/dL POC Glucose (mg/dL) 250 H (70-110) mg/dL Calcium (8.4-10.2) mg/dL Microbiology - Last 24 Hours (Table) 08/05/24 08:28 Blood Culture - Final Blood 08/08/24 12:00 Gram Stain - Final Sputum Sputum Culture - Final Assessment and Plan Assessment: * Altered mental status, likely due to hypoxic/toxic metabolic encephalopathy. Patient was found unresponsive at the facility, with saturation of 70%. 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 Some sporadic normal appearing background was also seen, which may pertain to better prognosis. However clinical correlation and follow-up EEG strongly recommended. * Continue Keppra 1000 mg twice daily. Patient has received loading dose of Keppra 1500 mg as well. No seizure-like activity noticed since then. * Continue Eliquis for atrial fibrillation. * Patient on Zosyn. * Other medical management as per IM and critical care. * Discussed with nursing staff in detail.
--- NOTE | 2024-08-11 16:52 | P.PN ---
Subjective Progress Note Date: 08/11/24 08/11/2024: Patient was seen for follow-up patient currently on propofol 15 mcg/kg/min. Per nurse report, with the sedation holiday, patient nodded yes and no appropriately. He wiggle his feet, squeeze the hands, but not much moving proximally. He is breathing was not better, was on PEEP 16, with 100% O2, but not has improved with FiO2 down to 80%. 08/10/2024: Patient was seen for a follow-up. Patient currently on propofol 20 mcg/kg's per minute. Per nurse report, with the sedation holiday, patient opens eyes, coughing gagging and drinking well. However not moving his limbs. Sedation holiday was done for about 30 minutes. 08/09/2024: Patient was seen for follow-up. Patient is off sedation. Patient opens his eyes, but the gaze is deviated upwards. Per nurse report, patient became bradycardic last night going down to 25's. X-ray revealed worsening congestion. Lasix was increased. Patient subsequently oxygen saturation decreased, therefore the PEEP was increased to 14. Last night nurse noted that he was not much responsive. It was the same time he was bradycardic she weaned down the sedation. At present patient is on propofol only 15 mcg/kg's per minute. Fentanyl was turned off at 4 PM yesterday. No seizure-like activity noted. Objective - Vital Signs Vital signs: Vital Signs Temp 97.3 F L 08/11/24 12:00 Pulse 48 L 08/11/24 15:00 Resp 20 08/11/24 15:00 BP 120/72 08/11/24 15:00 Pulse Ox 93 L 08/11/24 15:00 FiO2 70 08/11/24 15:37 Intake & Output 08/10/24 08/11/24 08/11/24 18:59 06:59 18:59 Intake Total 6118.490 4887.913 832.520 Output Total 9645 7525 9355 Balance -2285.385 -2577.087 -1492.480 Weight 218.6 kg 218.6 kg Intake: IV 356 169 214 Lactated Ringers 500 ml @ 120 130 90 10 mls/hr IV .Q24H [facility] Rx#:[id number] Piperacillin-Tazobactam 3 200 100 .375 gm In Sodium Chloride 0.9% 100 ml @ 25 mls/hr IVPB Q8HR [facility] Rx# :[id number] Pressure Bag 36 39 24 Intake, IV Titration 263.615 293.913 228.520 Amount propofoL 1,000 mg In 263.615 293.913 228.520 Empty Bag 1 bag @ 20 MCG/ KG/MIN 25.855 mls/hr IV . Q3H53M [facility] Rx#:[id number] Tube Feeding 540 585 360 Other 90 30 Output: Urine 3535 3625 2325 Other: Voiding Method Indwelling Catheter Indwelling Catheter Indwelling Catheter # Bowel Movements 1 ABP, PAP, CO, CI - Last Documented Arterial Blood Pressure 106/65 - Exam Patient is intubated, on mild sedation 15 mcg/kg's per minute. No obvious s eizure-like activity noticed. Patient slightly opens his eyes to calling his name, but quite encephalopathic, somnolent. Pupils are round and reacting. Please refer to above for nursing report. Patient at present sedated. - Labs CBC & Chem 7: 08/11/24 05:00 08/11/24 11:48 Labs: Abnormal Lab Results - Last 24 Hours (Table) 08/10/24 08/11/24 08/11/24 Range/Units 17:36 00:53 05:00 RBC 3.79 L (4.30-5.90) m/uL Hgb 8.7 L (13.0-17.5) gm/dL Hct 29.9 L (39.0-53.0) % MCV 78.8 L (80.0-100.0) fL MCH 23.0 L (25.0-35.0) pg MCHC 29.2 L (31.0-37.0) g/dL RDW 16.4 H (11.5-15.5) % ABG pH (7.35-7.45) ABG pCO2 (35-45) mmHg ABG pO2 (83-108) mmHg ABG HCO3 (21-25) mmol/L ABG Total CO2 (19-24) mmol/L Hemoglobin (13.0-17.5) gm/dL Sodium (137-145) mmol/L Chloride (98-107) mmol/L Carbon Dioxide (22-30) mmol/L BUN (9-20) mg/dL Glucose (74-99) mg/dL POC Glucose (mg/dL) 250 H 242 H (70-110) mg/dL Calcium (8.4-10.2) mg/dL 08/11/24 08/11/24 08/11/24 Range/Units 05:00 05:11 05:19 RBC (4.30-5.90) m/uL Hgb (13.0-17.5) gm/dL Hct (39.0-53.0) % MCV (80.0-100.0) fL MCH (25.0-35.0) pg MCHC (31.0-37.0) g/dL RDW (11.5-15.5) % ABG pH 7.49 H (7.35-7.45) ABG pCO2 51 H (35-45) mmHg ABG pO2 70 L (83-108) mmHg ABG HCO3 39 H (21-25) mmol/L ABG Total CO2 41 H (19-24) mmol/L Hemoglobin 9.2 L (13.0-17.5) gm/dL Sodium 136 L (137-145) mmol/L Chloride 93 L (98-107) mmol/L Carbon Dioxide 34 H (22-30) mmol/L BUN 27 H (9-20) mg/dL Glucose 217 H (74-99) mg/dL POC Glucose (mg/dL) 231 H (70-110) mg/dL Calcium 8.1 L (8.4-10.2) mg/dL 08/11/24 Range/Units 11:23 RBC (4.30-5.90) m/uL Hgb (13.0-17.5) gm/dL Hct (39.0-53.0) % MCV (80.0-100.0) fL MCH (25.0-35.0) pg MCHC (31.0-37.0) g/dL RDW (11.5-15.5) % ABG pH (7.35-7.45) ABG pCO2 (35-45) mmHg ABG pO2 (83-108) mmHg ABG HCO3 (21-25) mmol/L ABG Total CO2 (19-24) mmol/L Hemoglobin (13.0-17.5) gm/dL Sodium (137-145) mmol/L Chloride (98-107) mmol/L Carbon Dioxide (22-30) mmol/L BUN (9-20) mg/dL Glucose (74-99) mg/dL POC Glucose (mg/dL) 276 H (70-110) mg/dL Calcium (8.4-10.2) mg/dL Microbiology - Last 24 Hours (Table) 08/05/24 08:28 Blood Culture - Final Blood 08/08/24 12:00 Gram Stain - Final Sputum Sputum Culture - Final Assessment and Plan Assessment: * Altered mental status, likely due to hypoxic/toxic metabolic encephalopathy. Patient was found unresponsive at the facility, with saturation of 70%. * Acute COVID-19 pneumonia. Chest x-ray showing bilateral infiltrates. 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 Some sporadic normal appearing background was also seen, which may pertain to better prognosis. However clinical correlation and follow-up EEG strongly recommended. * Continue Keppra 1000 mg twice daily. Patient has received loading dose of Keppra 1500 mg as well. No seizure-like activity noticed since then. We will decrease Keppra down to 750 mg twice daily. * Continue Eliquis for atrial fibrillation. * Patient on Zosyn. * Other medical management as per IM and critical care. * Discussed with nursing staff in detail.
[2024-08-11 18:00] LABS: Glucose,Whole Blood 272 mg/dL (70-110)
[2024-08-11 20:17] LABS: Glucose,Whole Blood 265 mg/dL (70-110)
[2024-08-11] MEDS ORDERED: INSULIN DETEMIR (LEVEMIR) 100 UNIT/ML SYR SQ SCH (21:00)
[2024-08-11] MEDS: levETIRAcetam IV 500 MG/5 ML VIAL IVP SCH (21:34)
[2024-08-12 00:10] LABS: Glucose,Whole Blood 225 mg/dL (70-110)
[2024-08-12 05:49] LABS: ABG Base Excess 16.7 mmol/L; ABG Oxygen Saturation 94.4 % (94-97); ABG PCO2 48 mmHg (35-45); ABG PH 7.54 (7.35-7.45); ABG PO2 69 mmHg (83-108); ABG TCO2 43 mmol/L (19-24)
[2024-08-12 05:50] LABS: ABG HCO3 41 mmol/L (21-25); Allen Test Performed? no
[2024-08-12 06:08] LABS: Glucose,Whole Blood 191 mg/dL (70-110)
[2024-08-12 06:23] LABS: Anisocytosis Slight; Basophils % (A) 0 %; Eosinophils # (A) 0.1 k/uL (0-0.7); Eosinophils % (A) 1 %; HCT 29.7 % (39.0-53.0); HGB 8.9 gm/dL (13.0-17.5); Hypochromasia Marked; Lymphocytes # (A) 1.4 k/uL (1.0-4.8); Lymphocytes % (A) 17 %; MCH 23.1 pg (25.0-35.0); MCHC 29.9 g/dL (31.0-37.0); MCV 77.3 fL (80.0-100.0); Mean Platelet Volume 7.5; Microcytosis Slight; Monocytes # (A) 0.7 k/uL (0-1.0); Monocytes % (A) 8 %; Neutrophils # (A) 5.6 k/uL (1.3-7.7); Neutrophils % (A) 70 %; Platelet Count 418 k/uL (150-450); RBC 3.84 m/uL (4.30-5.90); RDW 16.4 % (11.5-15.5)
--- NOTE | 2024-08-12 06:41 | XR ---
EXAMINATION TYPE: XR chest 1V portable DATE OF EXAM: 08/12/2024 CLINICAL HISTORY: Difficulty breathing progress study. TECHNIQUE: Single AP portable semiupright view of the chest is obtained. COMPARISON: Chest x-ray from one day earlier and older studies FINDINGS: Stable endotracheal and orogastric tubes. Persistent and continued worsening left greater than right bilateral multifocal increased opacities. Suspect new tiny left apical thorax current study Persistent mild cardiomegaly. Old healed fractures of the posterior-lateral left fifth through seventh ribs are redemonstrated. IMPRESSION: Mild cardiomegaly with continued left greater than right bilateral acute infiltrates and/ or edema along with central vascular congestion and small bilateral pleural effusions are all redemon strated. Possible new tiny left apical pneumothorax. Progress study advised. [facility], , 08/12/2024 6:39 AM
[2024-08-12 06:57] LABS: African American GFR (CKD) >90 (>60 ml/min/1.73 sqM); Blood Urea Nitrogen 33 mg/dL (9-20); Calcium 8.1 mg/dL (8.4-10.2); Chloride 89 mmol/L (98-107); Glucose 177 mg/dL (74-99); Non-African American GFR(CKD) >90 (>60 ml/min/1.73 sqM); Potassium 3.5 mmol/L (3.5-5.1); Sodium 134 mmol/L (137-145)
[2024-08-12 07:03] LABS: Anion Gap 10 mmol/L
[2024-08-12 07:07] LABS: Carbon Dioxide 35 mmol/L (22-30)
--- NOTE | 2024-08-12 08:05 | P.PN ---
Subjective History of Present Illness: The patient is a 63-year-old male with known history of morbid obesity, permanent atrial fibrillation, prior history of CVA, hypertension and hyperlipidemia who presented from the [facility] with progressive dyspnea and decreased mentation, he was found to be unresponsive and was intubated. He was diagnosed with COVID infection. He remains intubated. Cardiology consultation was requested because of the atrial fibrillation. The patient has a known permanent atrial fibrillation, anticoagulated. His ventricular rate was stable on presentation with episode of slow ventricular response. Yesterday he became tachycardic and was started on IV Cardizem. He is stable at this time. He has underwent cardiac catheterization in 2012 and was found to have mild to moderate obstructive disease. His left ventricular systolic function was preserved in 2022. He is on no vasopressors and his urinary output has been stable. His troponin was normal on admission and his NT proBNP was 3320. He has a history of hypertension and diabetes. Medications: As an outpatient he is on Eliquis 5 mg twice a day, losartan 12.5 mg daily, metoprolol tartrate 12.5 mg twice a day, insulin, Lasix 40 mg daily, MiraLAX, Flomax, gabapentin 08/08 Patient seen and examined. Patient had seizure-like activity and therefore taken for CT brain this morning which showed no significant change. EEG showing moderate to severe background slowing. He was more tachycardic on transfer however after getting patient situated has been in the bradycardic 40s to 50s A. fib. He did receive his metoprolol 12.5 twice a day. Remains on low dose norepinephrine. 08/09 Patient had more significant bradycardia with heart rates in the 30s and 40s however appears somewhat related to sedation and the propofol was weaned and heart rates came up morning of the 50s. His Lasix was increased to 40 mg IV every 8 hours. Additionally getting tube feeds. Remains on ventilator requiring increase in PEEP and currently on PEEP 14 and FiO2 80%. 08/10 Patient seen and examined. Patient remains in A. fib with controlled ventricular rates with mild bradycardia. Reported heart rates on the 30s however are predominantly 50s and 60s. Asymptomatic and hemodynamically stable. Off of pressors. Previously had been on Cardizem drip however this has been discontinued. Requiring increasing oxygen demand and up to 100% FiO2 with a PEEP of 14. On Lasix 40 mg 3 times a day with -1400 mL in last 24 hours. 08/11 Patient seen and examined. Remains in A. fib with heart rates in the 50s to 60s. Remains on ventilator with 100% FiO2 and PEEP of 16. Off of any vasopressors. He is -1500 mL over last 24 hours. Blood work from this morning pending however hemoglobin 8.7. 08/12 Patient seen and examined. Remains in A. fib with borderline heart rates in the 40s to 50s. Remains on diuretics with -1500 mL output over last 24 hours. Creatinine stable. FiO2 was able to be decreased on the 70%. PEEP remains 16. Physical Examination: 63-year-old male, intubated and sedated, morbidly obese, Head: Normocephalic. Eyes: Sclerae nonicteric. Neck: Good carotid upstroke, no bruit, . Lungs: Clear to auscultation anteriorly. Heart: Irregular rate and rhythm, S1-S2, no S3, no rub. No murmur. Abdomen: Soft obese, positive bowel sounds no organomegaly. Extremities: +2 edema. Impression: 1. Respiratory failure with COVID infection, possible aspiration pneumonia 2. Permanent atrial fibrillation 3. History of CVA 4. History of hypertension 5. History of diabetes 6. Morbid obesity 7. Obstructive sleep apnea 8. Bradycardia, asymptomatic 9. Acute on chronic diastolic heart failure Plan: Heart rates appear predominantly controlled and bradycardic likely exacerbated by sedation and appears stable. Continue diuresis to help optimize his respiratory status with severe respiratory failure. Continue with Lasix as well as Zaroxolyn. Prognosis guarded Objective - Vital Signs Vital signs: Vital Signs Temp 98.8 F 08/12/24 04:00 Pulse 58 L 08/12/24 07:00 Resp 20 08/12/24 07:00 BP 114/86 08/12/24 07:00 Pulse Ox 92 L 08/12/24 07:00 FiO2 70 08/12/24 07:52 Intake & Output 08/11/24 08/12/24 08/12/24 18:59 06:59 18:59 Intake Total 0024.483 1195 68 Output Total 3325 2750 300 Balance -2318.480 -1714 -232 Weight 218.6 kg Intake: IV 253 266 23 .9NS KVO 220 20 Lactated Ringers 500 ml @ 120 10 10 mls/hr IV .Q24H FABIENNE Rx#:[id number] Piperacillin-Tazobactam 3 100 .375 gm In Sodium Chloride 0.9% 100 ml @ 25 mls/hr IVPB Q8HR FABIENNE Rx# :[id number] Pressure Bag 33 36 3 Intake, IV Titration 228.520 200 Amount propofoL 1,000 mg In 228.520 200 Empty Bag 1 bag @ 20 MCG/ KG/MIN 25.855 mls/hr IV . Q3H53M FABIENNE Rx#:[id number] Tube Feeding 495 540 45 Other 30 30 Output: Urine 3325 2750 300 Other: Voiding Method Indwelling Catheter Indwelling Catheter ABP, PAP, CO, CI - Last Documented Arterial Blood Pressure 111/76 - Labs CBC & Chem 7: 08/12/24 06:10 08/12/24 06:10 Labs: Abnormal Lab Results - Last 24 Hours (Table) 08/11/24 08/11/24 08/11/24 Range/Units 11:23 17:58 20:16 RBC (4.30-5.90) m/uL Hgb (13.0-17.5) gm/dL Hct (39.0-53.0) % MCV (80.0-100.0) fL MCH (25.0-35.0) pg MCHC (31.0-37.0) g/dL RDW (11.5-15.5) % ABG pH (7.35-7.45) ABG pCO2 (35-45) mmHg ABG pO2 (83-108) mmHg ABG HCO3 (21-25) mmol/L ABG Total CO2 (19-24) mmol/L Hemoglobin (13.0-17.5) gm/dL Sodium (137-145) mmol/L Chloride (98-107) mmol/L Carbon Dioxide (22-30) mmol/L BUN (9-20) mg/dL Glucose (74-99) mg/dL POC Glucose (mg/dL) 276 H 272 H 265 H (70-110) mg/dL Calcium (8.4-10.2) mg/dL 08/12/24 08/12/24 08/12/24 Range/Units 00:09 05:46 06:07 RBC (4.30-5.90) m/uL Hgb (13.0-17.5) gm/dL Hct (39.0-53.0) % MCV (80.0-100.0) fL MCH (25.0-35.0) pg MCHC (31.0-37.0) g/dL RDW (11.5-15.5) % ABG pH 7.54 H (7.35-7.45) ABG pCO2 48 H (35-45) mmHg ABG pO2 69 L (83-108) mmHg ABG HCO3 41 H* (21-25) mmol/L ABG Total CO2 43 H (19-24) mmol/L Hemoglobin 8.8 L (13.0-17.5) gm/dL Sodium (137-145) mmol/L Chloride (98-107) mmol/L Carbon Dioxide (22-30) mmol/L BUN (9-20) mg/dL Glucose (74-99) mg/dL POC Glucose (mg/dL) 225 H 191 H (70-110) mg/dL Calcium (8.4-10.2) mg/dL 08/12/24 08/12/24 Range/Units 06:10 06:10 RBC 3.84 L (4.30-5.90) m/uL Hgb 8.9 L (13.0-17.5) gm/dL Hct 29.7 L (39.0-53.0) % MCV 77.3 L (80.0-100.0) fL MCH 23.1 L (25.0-35.0) pg MCHC 29.9 L (31.0-37.0) g/dL RDW 16.4 H (11.5-15.5) % ABG pH (7.35-7.45) ABG pCO2 (35-45) mmHg ABG pO2 (83-108) mmHg ABG HCO3 (21-25) mmol/L ABG Total CO2 (19-24) mmol/L Hemoglobin (13.0-17.5) gm/dL Sodium 134 L (137-145) mmol/L Chloride 89 L (98-107) mmol/L Carbon Dioxide 35 H (22-30) mmol/L BUN 33 H (9-20) mg/dL Glucose 177 H (74-99) mg/dL POC Glucose (mg/dL) (70-110) mg/dL Calcium 8.1 L (8.4-10.2) mg/dL
[2024-08-12] MEDS: POTASSIUM BICARBONATE/CIT AC 20 MEQ TABLET.EFF NG-TUBE SCH ×2 (08:26→16:44)
[2024-08-12 11:23] LABS: Glucose,Whole Blood 227 mg/dL (70-110)
--- NOTE | 2024-08-12 14:12 | P.PN ---
Subjective Progress Note Date: 08/12/24 On 08/08/2024, the patient is being seen in follow-up in the intensive care unit. This is a morbidly obese 63-year-old male patient who is currently intubated on the mechanical ventilator. Initially presented to us on 08/05/2024 for respiratory distress and the patient became unresponsive. He is known to have morbid obesity, COPD, chronic A-fib, CVA, hypertension hyperlipidemia. He resides in a long term and the patient was found to be unresponsive and not breathing properly. His pulse ox was also very low and the patient was hypotensive and minimally responsive. He came into the emergency department where he was intubated and placed on the mechanical ventilator. Since admission, the patient was found to be COVID-19 positive. He had a follow-up chest x-ray today that shows significant rotation, ET tube is probably 1 cm above the damian and there is evidence of left lower lobe consolidat ion/effusion. Noted at the time of admission, he had also a right upper lobe consolidation in addition to left lower lobe consolidation. Sputum samples have been negative as collected on 08/05/2024 and blood cultures been also negative. No significant leukocytosis. The patient is currently on no antibiotics. The patient is on propofol which is running at 30 mcg/kg/min, and is also on fentanyl at 1 mcg/kg/h.. The patient is on assist-control mode of mechanical ventilation at rate of 20, tidal volume of 500, FiO2 of 60 % with a PEEP of 10. Blood gases from today shows a pH of 7.46 with a pCO2 of 51 and pO2 of 69 and this was an FiO2 of 60%. The patient is on lactated Ringer at rate of 75 cc an hour. The patient receiving vital high-protein at rate of 55 cc an hour. He remains in atrial fibrillation with rapid ventricular response. He is off Cardizem drip . He is also on metoprolol 12.5 mg twice a day and anticoagulation with Eliquis 5 mg p.o. twice a day. He is on Levemir insulin 15 units at bedtime. Earlier this morning, the patient noted to have episodic generalized tonic-clonic seizure-like activity. The patient was kept on propofol. He was given Ativan 2 mg IV push x 2 and started on Keppra. CAT scan of the brain is to follow. EEG is to follow. Neurology consultation is to follow. The patient is on lactated Ringer at rate of 75 cc an hour. Norepinephrine was also started this morning and is currently running at 0.03 mcg/kg/min. He is on EN , vital HP at 35 cc/hr On 08/09/2024, the patient is being seen for a follow-up. The patient remains intubated on the mechanical ventilator. This morning, the patient is on propofol which is running at 15 mcg/kg/min. Noted the propofol rate was gradually reduced as of yesterday and the fentanyl has been discontinued. Overnight, the patient continued to have bradycardic events and the heart rate was dropping as low as in the 40s and the rhythm remains atrial fibrillation. The patient was taken off the beta-blockers. The patient this morning is on assist-control mode of mechanical ventilation at rate of 20, tidal volume of 500, FiO2 of 60% with a PEEP of 5. Blood gas showed a pH of 7.51 with a pCO2 of 43 and pO2 of 64. Chest x-ray showing bilateral airspace disease, worse on the right essentially involving the lung bases. The patient is currently on no pressors. The patient remains on vital high-protein at rate of 45 cc an hour. No further seizure activity has been noted. The patient remains on IV Keppra. EEG showed encephalopathy without any seizure activity. Neurology on the case. The patient remains on IV Zosyn. The patient continues to have significant amount of edema in all 4 extremities and the patient remains on IV Lasix 40 mg every 12 hours. Fluid balance is +180 cc over the past 24 hours. Repeat cultures were sent and the results are still pending. The patient remains on anticoagulation with Eliquis regarding chronic atrial fibrillation. Cardizem drip is off. Metoprolol is currently on hold. On 08/10/2024, the patient is being seen for a follow-up. This morning, the patient is on propofol running at 20 mcg/kg/min. Remains deeply sedated. He is morbidly obese and he remains on the mechanical ventilator due to hypoxic/hypercapnic respiratory failure. This morning, he is on assist-control mode with rate of 20, tidal volume of 500, FiO2 is at 80% with a PEEP of 14. pH is 7.47 with a pCO2 of 44 and pO2 of 67. Chest x-ray shows bilateral pleural effusions and an area of dense consolidation in left upper lobe. There are signs of fluid overload as the patient continues to have extensive edema in all 4 extremities. He is on IV Lasix. Fluid balance is -1.5 L over the past 24 hours. The patient remains on IV Zosyn as an empiric antibiotic coverage. No pressors. No seizure activity and the patient remains on IV Keppra. EEG showed no evidence of any ongoing seizure activity. Remains on vital high-protein at rate of 45 cc an hour and the patient is on Levemir insulin 15 units twice a day. Blood work showed a white cell count of 6.8 with a hemoglobin 9.3 and a platelet count of 310. Sodium level is at 137, BUN is 25 with a creatinine of 0.8 and a potassium level is at 3.8. Procalcitonin level is at 0.48. The patient is afebrile. Hemodynamically, he is in low rate atrial fibrillation. Remains on anticoagulation with Eliquis. On 08/11/2024, the patient is being seen for a follow-up. The patient remains on propofol running at 20 mcg/kg/min. Sedation holiday was done today and the patient was arousable and he was able to follow simple commands. Nevertheless, is not ready for weaning with extubation he was placed back on propofol. At the same time, the patient is on assist-control mode of mechanical ventilation at a rate of 20, tidal volume of 500, FiO2 of 100% with a PEEP of 16. Noted his oxygenation got worse overnight and the patient was placed on 100% FiO2. Current pulse ox is 97%. She has been gradually been his FiO2. The blood gases showed a pH of 7.49 with a pCO2 of 51 and pO2 of 76. The patient is currently on Lasix 40 mg IV every 8 hours and Zaroxolyn 5 mg p.o. twice a day. The net fluid balance is -4.8 L over the past 24 hours. Continues to have evidence of bilateral pleural effusion and extensive pulmonary edema in addition to extensive swelling in the upper and lower extremities bilaterally. He is on Levemir insulin 15 units twice daily. He is on vital high-protein at rate of 45 cc an hour. No seizure activity has been noted. Remains on IV Zosyn. Afebrile. Hemodynamically stable. The white cell count is 6.8 with a hemoglobin 8.7 and a platelet count of 333. The sodium levels at 136, bicarb levels at 34, potassium is at 3.9, BUN is 27 with a creatinine of 0.7. No other significant events overnight. On 08/12/2024, patient remains intubated on mechanical ventilator. The patient i s in a significant negative fluid balance and the patient is being diuresed with a combination of Lasix and Zaroxolyn. Fluid balance has been -4 L over the past 24 hours. The patient remains on Lasix 40 mg IV every 8 hours and Zaroxolyn 5 mg p.o. twice a day. The patient's follow-up chest x-ray from today shows improved aeration in the lungs. There is cardiomegaly. There is continued pulmonary edema and bilateral pleural effusions. Tube remains in good location. He is on assist-control mode of mechanical ventilation at rate of 20, tidal volume of 500, FiO2 of 70% with a PEEP of 16. Blood gas showed a pH of 7.54 with pCO2 48 and pO2 of 69. Remains on low rate atrial fibrillation and rate is controlled. Remains on vital high-protein at rate of 48 cc an hour. The white cell count is at 8 with a hemoglobin 8.9 and platelet count of 418. Sodium is at 135, BUN 33 with a creatinine of 0.6. Bicarbonate level is at 35. Afebrile. No other significant events overnight. Was given a sedation holiday and the patient's mentation was appropriate. Based on that, the patient was placed back on propofol which is running at 50 mcg/kg/min. Objective - Vital Signs Vital signs: Vital Signs Temp 98.1 F 08/12/24 08:00 Pulse 65 08/12/24 09:00 Resp 20 08/12/24 09:00 BP 98/62 08/12/24 09:00 Pulse Ox 95 08/12/24 09:00 FiO2 70 08/12/24 09:00 Intake & Output 08/11/24 08/12/24 08/12/24 18:59 06:59 18:59 Intake Total 3929.226 6484 366.965 Output Total 3325 2750 640 Balance -2318.480 -1714 -273.035 Weight 218.6 kg Intake: IV 253 266 169 .9NS KVO 220 40 Lactated Ringers 500 ml @ 120 10 20 10 mls/hr IV .Q24H [facility] Rx#:[id number] Piperacillin-Tazobactam 3 100 100 .375 gm In Sodium Chloride 0.9% 100 ml @ 25 mls/hr IVPB Q8HR [facility] Rx# :[id number] Pressure Bag 33 36 9 Intake, IV Titration 228.520 200 32.965 Amount propofoL 1,000 mg In 228.520 200 32.965 Empty Bag 1 bag @ 20 MCG/ KG/MIN 25.855 mls/hr IV . Q3H53M [facility] Rx#:[id number] Tube Feeding 495 540 135 Other 30 30 30 Output: Urine 3325 2750 640 Other: Voiding Method Indwelling Catheter Indwelling Catheter Indwelling Catheter ABP, PAP, CO, CI - Last Documented Arterial Blood Pressure 129/78 - Exam No acute distress, the patient is sedated, and, comfortable intubated on the mechanical ventilator. Orogastric and orotracheal tube are both in place. The patient is morbidly obese with a body mass index of 64.2. HEENT examination is grossly unremarkable. Mucous membranes are moist. No oral lesions. Neck supple. Full range of motion. No adenopathy thyromegaly or neck vein distention. Cardiovascular examination reveals irregular rhythm consistent with atrial fibrillation. S1-S2 normal. No S3 or S4. No discernible murmur noted. Heart sounds are very distant. The patient is bradycardic, still in atrial fibrillation. Lungs reveal mostly clear breath sounds. Scattered rhonchi and crackles are noted. No wheezes. Breath sounds equal bilaterally. Abdomen is soft, but very obese. No bowel sounds. Extremities are intact. There is significant amount of edema lower extremities bilaterally, diminished pulses, no cyanosis or clubbing Skin is without rash or lesion. Neurologic examination cannot be evaluated at this time. The patient is sedated on propofol. - Labs CBC & Chem 7: 08/12/24 06:10 08/12/24 13:32 Labs: Abnormal Lab Results - Last 24 Hours (Table) 08/11/24 08/11/24 08/11/24 Range/Units 11:23 17:58 20:16 RBC (4.30-5.90) m/uL Hgb (13.0-17.5) gm/dL Hct (39.0-53.0) % MCV (80.0-100.0) fL MCH (25.0-35.0) pg MCHC (31.0-37.0) g/dL RDW (11.5-15.5) % ABG pH (7.35-7.45) ABG pCO2 (35-45) mmHg ABG pO2 (83-108) mmHg ABG HCO3 (21-25) mmol/L ABG Total CO2 (19-24) mmol/L Hemoglobin (13.0-17.5) gm/dL Sodium (137-145) mmol/L Chloride (98-107) mmol/L Carbon Dioxide (22-30) mmol/L BUN (9-20) mg/dL Glucose (74-99) mg/dL POC Glucose (mg/dL) 276 H 272 H 265 H (70-110) mg/dL Calcium (8.4-10.2) mg/dL 08/12/24 08/12/24 08/12/24 Range/Units 00:09 05:46 06:07 RBC (4.30-5.90) m/uL Hgb (13.0-17.5) gm/dL Hct (39.0-53.0) % MCV (80.0-100.0) fL MCH (25.0-35.0) pg MCHC (31.0-37.0) g/dL RDW (11.5-15.5) % ABG pH 7.54 H (7.35-7.45) ABG pCO2 48 H (35-45) mmHg ABG pO2 69 L (83-108) mmHg ABG HCO3 41 H* (21-25) mmol/L ABG Total CO2 43 H (19-24) mmol/L Hemoglobin 8.8 L (13.0-17.5) gm/dL Sodium (137-145) mmol/L Chloride (98-107) mmol/L Carbon Dioxide (22-30) mmol/L BUN (9-20) mg/dL Glucose (74-99) mg/dL POC Glucose (mg/dL) 225 H 191 H (70-110) mg/dL Calcium (8.4-10.2) mg/dL 08/12/24 08/12/24 Range/Units 06:10 06:10 RBC 3.84 L (4.30-5.90) m/uL Hgb 8.9 L (13.0-17.5) gm/dL Hct 29.7 L (39.0-53.0) % MCV 77.3 L (80.0-100.0) fL MCH 23.1 L (25.0-35.0) pg MCHC 29.9 L (31.0-37.0) g/dL RDW 16.4 H (11.5-15.5) % ABG pH (7.35-7.45) ABG pCO2 (35-45) mmHg ABG pO2 (83-108) mmHg ABG HCO3 (21-25) mmol/L ABG Total CO2 (19-24) mmol/L Hemoglobin (13.0-17.5) gm/dL Sodium 134 L (137-145) mmol/L Chloride 89 L (98-107) mmol/L Carbon Dioxide 35 H (22-30) mmol/L BUN 33 H (9-20) mg/dL Glucose 177 H (74-99) mg/dL POC Glucose (mg/dL) (70-110) mg/dL Calcium 8.1 L (8.4-10.2) mg/dL Assessment and Plan Plan: Acute hypoxic respiratory failure, intubated on the mechanical ventilator. Acute hypoxic respiratory failure is likely multifactorial. The patient has multifocal airspace disease with COVID-19 pneumonia. Also suspect fluid overload as the patient may have an underlying bilateral pleural effusion. Unable to obtain a CAT scan of the chest because of his body habitus as the patient has a BMI of 66.8. Superimposed bacterial infection is felt to be less likely as the patient has no leukocytosis, no fever and procalcitonin level is elevated. No significant respiratory secretions and the sputum culture has been negative.. Remains intubated on mechanical ventilator. Patient was intubated on 08/05/2024. He is a long term resident. The patient remains on a high level of PEEP of 16 and FiO2 and the patient is on FiO2 of 70%. Chest x-ray shows improvement in volume status and the patient is being diuresed with IV Lasix. Acute coronavirus infection infection and the patient tested positive at the time of admission on 08/05/2024 Chronic atrial fibrillation, currently bradycardic and still in atrial fibrillation, off Cardizem drip and off metoprolol and still anticoagulated with Eliquis, and the patient remains in the low rate atrial fibrillation Morbid obesity Acute leukocytosis, improved New onset seizure activity, started on IV Keppra. No further seizure activity has been noted. EEG was negative for any ongoing seizure activity. History of CVA. History of hyperlipidemia. History of hypertension. History of obstructive sleep apnea syndrome. Obesity hypoventilation syndrome with BMI of 63.9 also contributing to his hypercapnia/chronic CHF with preserved LV function/diastolic heart failure Diabetes mellitus type 2, maintained on Levemir insulin BPH Chronic metabolic alkalosis,, secondary to chronic hypercapnia History of iron deficiency anemia Polysubstance abuse with previous drug screen showing cocaine and benzodiazepines History of right diabetic foot infection with previous I&D back in July 2023 and polymicrobial growth. Plan: Daily sedation holidays Continue ventilator support, no changes today Continue Decadron 6 mg IV every 24 hours Continue empiric antibiotic coverage with IV Zosyn as the patient is a long term resident Continue Lasix 40 mg IV every 8 hours Continue Zaroxolyn 5 mg p.o. twice a day Fluid balance is negative and overall the patient has been in a 10 L negative fluid balance over the past 24 hours Monitor electrolytes and replace potassium IV fluids to KVO check sputum Cx, are negative Unable to do a CAT scan of the chest due to his morbid obese body habitus CAT scan of the brain, no contrast was completed yesterday it was negative for any acute abnormalities Continue IV Keppra Management of atrial fibrillation and the patient remains off Cardizem drip and off metoprolol and Eliquis Enteral feeding for nutritional support with vital HP We will continue to follow. Condition remains critical. Critical care evaluation that was done more than 30 minutes Time with Patient: Greater than 30
[2024-08-12 17:57] LABS: Glucose,Whole Blood 263 mg/dL (70-110)
[2024-08-12 21:04] LABS: Glucose,Whole Blood 255 mg/dL (70-110)
[2024-08-12 23:57] LABS: Glucose,Whole Blood 228 mg/dL (70-110)
[2024-08-13 05:54] LABS: ABG Base Excess 16.7 mmol/L; ABG Oxygen Saturation 91.8 % (94-97); ABG PCO2 46 mmHg (35-45); ABG PO2 61 mmHg (83-108); ABG TCO2 42 mmol/L (19-24)
[2024-08-13 05:55] LABS: ABG HCO3 41 mmol/L (21-25); ABG PH 7.56 (7.35-7.45); Allen Test Performed? no
--- NOTE | 2024-08-13 06:21 | P.PN ---
Subjective Progress Note Date: 08/12/24 Patient in the intensive care unit currently intubated and sedated on the mechanical ventilator. Patient's chest x-ray today does reveal worsening CHF. He is significantly edematous. Remains sedated with IV fentanyl and propofol. He continues on IV Zosyn. Patient was started on enteral feedings today. blood sugars are elevated in the 200s. 08/07/2024 Patient was evaluated in follow-up in the medical floor he is currently intubated and sedated on the mechanical ventilator. Patient had gone into atrial fibrillation with rapid ventricular rate overnight requiring IV Cardizem. He has been since transition to oral metoprolol with heart rate better controlled today. He does have a noted history of atrial fibrillation was resumed on his oral Eliquis yesterday. Patient currently has LR running at 75 mL/h he does remain quite edematous mostly in his lower extremities. Patient was noted to have a small amount of yellow bile emesis there has been no residual with his tube feedings and they are continued at a slow rate today of 10 mL/h. He is febrile today temperature of 100.8. An abdominal x-ray was unable to be completed due to patient's body habitus and he is unable to be transported down for x-ray at this time. 08/08/2024 Patient is seen in follow-up in the ICU and overnight placed on mechanical ventilation as patient was noted to have what appeared to be seizure-like activity with no history of seizures and neurology was consulted. Patient was placed on mechanical ventilation currently with an FiO2 of 60% and PEEP is 10 with pulmonary documentation manager following. Patient remains with low-grade temps and also started on Keppra and is maintained on antibiotics. Cardiology following as well maintained on oral anticoagulation and has been having heart rates in the 40s. Continued on low-dose metoprolol and will continue to monitor closely. Per nursing staff patient also requiring low-dose Levophed and has been started on 40 of IV Lasix daily due to significant swelling. Will follow-up on repeat labs and continue to monitor closely. 08/09/2024 Patient is seen in follow-up with multiple consultations following including pulmonary, neurology, cardiology, and infectious disease consulted. Patient underwent EEG which was abnormal with no epileptiform discharges noted. Patient is continued on Keppra for now. Heart rates in the low 40s although per nursing staff slightly improved this afternoon and is being monitored closely with cardiology following. Patient is continued on Lasix for diuresis with significant volume overload. Wean pressors as tolerated and follow-up on repeat labs. Patient's blood sugars have been more elevated and possible steroid effect will increase long-acting and also Accu-Cheks before meals and at bedtime as well as sliding scale. Adjust accordingly. 08/10/2024 Patient is seen in follow-up today continues on mechanical ventilation in the ICU with an FiO2 of 80% and PEEP is 14. Undergoing sedation holidays and per nursing staff patient will open his eyes and attempt to track although not moving. Patient continues to be extremely edematous and is diuresing maintained on IV Lasix. Heart rates slightly improved and will continue current regimen per cardiology. No plans on extubation at this time. Per nursing staff patient has not had a bowel movement and is continued on bowel regimen. Abdomen is soft and there is positive bowel sounds noted. Patient continued on tube feeds. Highly recommend aspiration precautions and head of the bed elevated 30 to 45 degrees at all times. 08/12/2024 Patient is seen in follow-up today remains in the ICU with multiple consultations following. PEEP remains high at 16 with an FiO2 of 70% and per nursing staff has been having some desaturations and is being increased to 80% FiO2. Patient is maintained on metolazone along with IV Lasix and potassium borderline daily being replaced will add daily supplementation. Patient is having adequate diuresis and kidney functions are stable. Patient undergoing sedation holidays daily with no plans of weaning and extubation at this time. Patient is afebrile and maintained on IV Decadron along with Zosyn. Continue bowel regimen patient does have positive bowel sounds and is tolerating tube feeds at this time. Recommend aspiration precautions with head of the bed elevated 45 degrees at all times. Unable to complete review of systems as patient is currently intubated and sedated PHYSICAL EXAMINATION: GENERAL: The patient is intubated and sedated. He is morbidly obese, well- developed, elderly appearing, extremely edematous of upper and lower extremities and body habitus, ill-appearing. FiO2 increased at 80% with a PEEP of 16 HEENT: Pupils are round and equally reacting to light. EOMI. No scleral icterus. No conjunctival pallor. Normocephalic, atraumatic. No pharyngeal erythema. No thyromegaly. CARDIOVASCULAR: S1 and S2 muffled, irregular PULMONARY: Diminished breath sounds bilaterally otherwise chest is clear to auscultation, no wheezing , no crackles. ABDOMEN: Soft, obese, nontender, nondistended, normoactive bowel sounds. No palpable organomegaly. Kelly catheter in place MUSCULOSKELETAL: No joint swelling or deformity. EXTREMITIES: No cyanosis, clubbing, continues with significant lower extremity edema bilaterally pitting right lower leg superficial wound with dressing dry and intact NEUROLOGICAL: Not following commands. Unable to completely assess as patient is intubated and maintained on sedation. Patient is undergoing sedation holidays and does open eyes SKIN: No rashes. no petechiae. Assessment: Acute hypoxic respiratory failure requiring intubation on admission, currently on mechanical ventilation, FiO2 is 80% with a PEEP of 16 COVID infection and possible pneumonia, concerns for aspiration pneumonia Possible seizure like activity, new onset, EEG was abnormal although not showing any epileptiform discharges, continued on Keppra for now with neurology following Possible acute COPD exacerbation versus obesity hypoventilation syndrome Possible bacterial pneumonia, healthcare associated with right upper lobe and left lower lobe infiltrates Severe sepsis requiring pressor support Acute on chronic diastolic heart failure with preserved EF A-fib and RVR, present on admission now with slow ventricular rate dropping into the 30s. Patient heart rate slightly improving and will continue current regimen per cardiology Right leg wound with recent cultures showing enterococcus faecalis, ESBL and Providencia Rettgeri Diabetes Mellitus type 2, uncontrolled with hyperglycemia Morbid obesity with a BMI of 64.2 Chronic anemia Lactic acidemia/acidosis, improved GI prophylaxis DVT prophylaxis Full Code Plan: Continue with antibiotic in the form of Zosyn with infectious disease following. Highly concerned for aspiration pneumonia. Continue with intubation and mechanical ventilation. FiO2 is 80% with a PEEP being increased to 16 and desats quickly per nursing staff. Wean as tolerated. No plans for extubation at this time and undergoing sedation holidays. Patient will open eyes although not following commands at this time. Continue enteral feedings, tube feeds were resumed and tolerating thus far.. Continue with aspiration precautions and head of the bed elevated 45 degrees at all times and monitor closely for residuals Patient has not had many bowel movements documented will continue bowel regimen and also daily suppositories. Patient does not have history of seizures and was started on Keppra and neurology following underwent EEG which was abnormal although not showing any epileptiform discharges. No further seizure-like activity noted. Continue cardiac telemetry with cardiology following. Continued on low-dose metoprolol Per pulmonary documentation manager patient is continued on IV Lasix every 8 hours. And will continue to monitor kidney functions closely. Replace electrolytes per protocol. Daily supplementation of potassium ordered Continue eliquis and monitor for any signs of bleeding. Continue with Accu-Cheks before meals and at bedtime and sliding scale along with long-acting. Adjust insulins accordingly. Will increase long-acting insulin to twice daily Repeat blood work in the AM Overall prognosis is guarded The impression and plan of care has been dictated by Jocy Randle, Nurse Practitioner as directed. Dr. Jackie MD I have performed a history and physical examination and medical decision making of this patient, discussed the same with the dictator, and agree with the dictators assessment and plan as written, documented as a scribe. Based on total visit time, I have performed more than 50% of this visit. Objective - Vital Signs Vital signs: Vital Signs Temp 98.1 F 08/12/24 08:00 Pulse 65 08/12/24 09:00 Resp 20 08/12/24 09:00 BP 98/62 08/12/24 09:00 Pulse Ox 95 08/12/24 09:00 FiO2 70 08/12/24 09:00 Intake & Output 08/11/24 08/12/24 08/12/24 18:59 06:59 18:59 Intake Total 0261.018 2849 366.965 Output Total 3325 2750 640 Balance -2318.480 -1714 -273.035 Weight 218.6 kg Intake: IV 253 266 169 .9NS KVO 220 40 Lactated Ringers 500 ml @ 120 10 20 10 mls/hr IV .Q24H FABIENNE Rx#:[id number] Piperacillin-Tazobactam 3 100 100 .375 gm In Sodium Chloride 0.9% 100 ml @ 25 mls/hr IVPB Q8HR FABIENNE Rx# :[id number] Pressure Bag 33 36 9 Intake, IV Titration 228.520 200 32.965 Amount propofoL 1,000 mg In 228.520 200 32.965 Empty Bag 1 bag @ 20 MCG/ KG/MIN 25.855 mls/hr IV . Q3H53M FABIENNE Rx#:[id number] Tube Feeding 495 540 135 Other 30 30 30 Output: Urine 3325 2750 640 Other: Voiding Method Indwelling Catheter Indwelling Catheter Indwelling Catheter ABP, PAP, CO, CI - Last Documented Arterial Blood Pressure 129/78 - Labs CBC & Chem 7: 08/12/24 06:10 08/12/24 18:05 Labs: Abnormal Lab Results - Last 24 Hours (Table) 08/11/24 08/11/24 08/11/24 Range/Units 11:23 17:58 20:16 RBC (4.30-5.90) m/uL Hgb (13.0-17.5) gm/dL Hct (39.0-53.0) % MCV (80.0-100.0) fL MCH (25.0-35.0) pg MCHC (31.0-37.0) g/dL RDW (11.5-15.5) % ABG pH (7.35-7.45) ABG pCO2 (35-45) mmHg ABG pO2 (83-108) mmHg ABG HCO3 (21-25) mmol/L ABG Total CO2 (19-24) mmol/L Hemoglobin (13.0-17.5) gm/dL Sodium (137-145) mmol/L Chloride (98-107) mmol/L Carbon Dioxide (22-30) mmol/L BUN (9-20) mg/dL Glucose (74-99) mg/dL POC Glucose (mg/dL) 276 H 272 H 265 H (70-110) mg/dL Calcium (8.4-10.2) mg/dL 08/12/24 08/12/24 08/12/24 Range/Units 00:09 05:46 06:07 RBC (4.30-5.90) m/uL Hgb (13.0-17.5) gm/dL Hct (39.0-53.0) % MCV (80.0-100.0) fL MCH (25.0-35.0) pg MCHC (31.0-37.0) g/dL RDW (11.5-15.5) % ABG pH 7.54 H (7.35-7.45) ABG pCO2 48 H (35-45) mmHg ABG pO2 69 L (83-108) mmHg ABG HCO3 41 H* (21-25) mmol/L ABG Total CO2 43 H (19-24) mmol/L Hemoglobin 8.8 L (13.0-17.5) gm/dL Sodium (137-145) mmol/L Chloride (98-107) mmol/L Carbon Dioxide (22-30) mmol/L BUN (9-20) mg/dL Glucose (74-99) mg/dL POC Glucose (mg/dL) 225 H 191 H (70-110) mg/dL Calcium (8.4-10.2) mg/dL 08/12/24 08/12/24 Range/Units 06:10 06:10 RBC 3.84 L (4.30-5.90) m/uL Hgb 8.9 L (13.0-17.5) gm/dL Hct 29.7 L (39.0-53.0) % MCV 77.3 L (80.0-100.0) fL MCH 23.1 L (25.0-35.0) pg MCHC 29.9 L (31.0-37.0) g/dL RDW 16.4 H (11.5-15.5) % ABG pH (7.35-7.45) ABG pCO2 (35-45) mmHg ABG pO2 (83-108) mmHg ABG HCO3 (21-25) mmol/L ABG Total CO2 (19-24) mmol/L Hemoglobin (13.0-17.5) gm/dL Sodium 134 L (137-145) mmol/L Chloride 89 L (98-107) mmol/L Carbon Dioxide 35 H (22-30) mmol/L BUN 33 H (9-20) mg/dL Glucose 177 H (74-99) mg/dL POC Glucose (mg/dL) (70-110) mg/dL Calcium 8.1 L (8.4-10.2) mg/dL
[2024-08-13 07:03] LABS: Anisocytosis Slight; Basophils % (A) 0 %; Eosinophils # (A) 0.1 k/uL (0-0.7); Eosinophils % (A) 2 %; HCT 33.3 % (39.0-53.0); HGB 9.8 gm/dL (13.0-17.5); Hypochromasia Marked; Lymphocytes # (A) 1.6 k/uL (1.0-4.8); Lymphocytes % (A) 17 %; MCH 22.6 pg (25.0-35.0); MCHC 29.5 g/dL (31.0-37.0); MCV 76.9 fL (80.0-100.0); Mean Platelet Volume 7.2; Microcytosis Slight; Monocytes # (A) 0.6 k/uL (0-1.0); Monocytes % (A) 7 %; Neutrophils # (A) 6.6 k/uL (1.3-7.7); Neutrophils % (A) 73 %; Platelet Count 461 k/uL (150-450); RBC 4.33 m/uL (4.30-5.90); RDW 16.4 % (11.5-15.5); WBC 9.1 k/uL (3.8-10.6)
[2024-08-13 07:16] LABS: Glucose,Whole Blood 209 mg/dL (70-110)
[2024-08-13 07:16] LABS: ALT 8 U/L (4-49); AST 12 U/L (17-59); African American GFR (CKD) >90 (>60 ml/min/1.73 sqM); Alkaline Phosphatase 49 U/L (38-126); Blood Urea Nitrogen 34 mg/dL (9-20); Calcium 8.6 mg/dL (8.4-10.2); Chloride 87 mmol/L (98-107); Glucose 190 mg/dL (74-99); Magnesium 1.7 mg/dL (1.6-2.3); Non-African American GFR(CKD) >90 (>60 ml/min/1.73 sqM); Potassium 3.4 mmol/L (3.5-5.1); Sodium 134 mmol/L (137-145); Total Bilirubin 0.4 mg/dL (0.2-1.3); Total Protein 6.5 g/dL (6.3-8.2)
[2024-08-13 07:23] LABS: Anion Gap 10 mmol/L
[2024-08-13 07:32] LABS: Carbon Dioxide 37 mmol/L (22-30)
[2024-08-13] MEDS: POTASSIUM BICARBONATE/CIT AC 20 MEQ TABLET.EFF NG-TUBE SCH ×4 (08:10→22:18)
--- NOTE | 2024-08-13 08:57 | XR ---
EXAMINATION TYPE: XR chest 1V portable DATE OF EXAM: 08/13/2024 5:38 AM COMPARISON: 08/12/2024 CLINICAL INDICATION: Male, 63 years old with history of vented, TECHNIQUE: XR chest 1V portable view(s) obtained. FINDINGS: The heart size is normal. The pulmonary vasculature is normal. Left base pleural effusion is present. Endotracheal tube tip is 2.5 cm above the damian. Nasogastric tube transverses the thorax. IMPRESSION: 1. Left pleural effusion. 2. Lines and catheters discussed above [facility], , 08/13/2024 8:54 AM
[2024-08-13 11:31] LABS: Glucose,Whole Blood 247 mg/dL (70-110)
--- NOTE | 2024-08-13 11:31 | P.PN ---
Subjective Progress Note Date: 08/13/24 On 08/08/2024, the patient is being seen in follow-up in the intensive care unit. This is a morbidly obese 63-year-old male patient who is currently intubated on the mechanical ventilator. Initially presented to us on 08/05/2024 for respiratory distress and the patient became unresponsive. He is known to have morbid obesity, COPD, chronic A-fib, CVA, hypertension hyperlipidemia. He resides in a residential and the patient was found to be unresponsive and not breathing properly. His pulse ox was also very low and the patient was hypotensive and minimally responsive. He came into the emergency department where he was intubated and placed on the mechanical ventilator. Since admission, the patient was found to be COVID-19 positive. He had a follow-up chest x-ray today that shows significant rotation, ET tube is probably 1 cm above the damian and there is evidence of left lower lobe consolidat ion/effusion. Noted at the time of admission, he had also a right upper lobe consolidation in addition to left lower lobe consolidation. Sputum samples have been negative as collected on 08/05/2024 and blood cultures been also negative. No significant leukocytosis. The patient is currently on no antibiotics. The patient is on propofol which is running at 30 mcg/kg/min, and is also on fentanyl at 1 mcg/kg/h.. The patient is on assist-control mode of mechanical ventilation at rate of 20, tidal volume of 500, FiO2 of 60 % with a PEEP of 10. Blood gases from today shows a pH of 7.46 with a pCO2 of 51 and pO2 of 69 and this was an FiO2 of 60%. The patient is on lactated Ringer at rate of 75 cc an hour. The patient receiving vital high-protein at rate of 55 cc an hour. He remains in atrial fibrillation with rapid ventricular response. He is off Cardizem drip . He is also on metoprolol 12.5 mg twice a day and anticoagulation with Eliquis 5 mg p.o. twice a day. He is on Levemir insulin 15 units at bedtime. Earlier this morning, the patient noted to have episodic generalized tonic-clonic seizure-like activity. The patient was kept on propofol. He was given Ativan 2 mg IV push x 2 and started on Keppra. CAT scan of the brain is to follow. EEG is to follow. Neurology consultation is to follow. The patient is on lactated Ringer at rate of 75 cc an hour. Norepinephrine was also started this morning and is currently running at 0.03 mcg/kg/min. He is on EN , vital HP at 35 cc/hr On 08/09/2024, the patient is being seen for a follow-up. The patient remains intubated on the mechanical ventilator. This morning, the patient is on propofol which is running at 15 mcg/kg/min. Noted the propofol rate was gradually reduced as of yesterday and the fentanyl has been discontinued. Overnight, the patient continued to have bradycardic events and the heart rate was dropping as low as in the 40s and the rhythm remains atrial fibrillation. The patient was taken off the beta-blockers. The patient this morning is on assist-control mode of mechanical ventilation at rate of 20, tidal volume of 500, FiO2 of 60% with a PEEP of 5. Blood gas showed a pH of 7.51 with a pCO2 of 43 and pO2 of 64. Chest x-ray showing bilateral airspace disease, worse on the right essentially involving the lung bases. The patient is currently on no pressors. The patient remains on vital high-protein at rate of 45 cc an hour. No further seizure activity has been noted. The patient remains on IV Keppra. EEG showed encephalopathy without any seizure activity. Neurology on the case. The patient remains on IV Zosyn. The patient continues to have significant amount of edema in all 4 extremities and the patient remains on IV Lasix 40 mg every 12 hours. Fluid balance is +180 cc over the past 24 hours. Repeat cultures were sent and the results are still pending. The patient remains on anticoagulation with Eliquis regarding chronic atrial fibrillation. Cardizem drip is off. Metoprolol is currently on hold. On 08/10/2024, the patient is being seen for a follow-up. This morning, the patient is on propofol running at 20 mcg/kg/min. Remains deeply sedated. He is morbidly obese and he remains on the mechanical ventilator due to hypoxic/hypercapnic respiratory failure. This morning, he is on assist-control mode with rate of 20, tidal volume of 500, FiO2 is at 80% with a PEEP of 14. pH is 7.47 with a pCO2 of 44 and pO2 of 67. Chest x-ray shows bilateral pleural effusions and an area of dense consolidation in left upper lobe. There are signs of fluid overload as the patient continues to have extensive edema in all 4 extremities. He is on IV Lasix. Fluid balance is -1.5 L over the past 24 hours. The patient remains on IV Zosyn as an empiric antibiotic coverage. No pressors. No seizure activity and the patient remains on IV Keppra. EEG showed no evidence of any ongoing seizure activity. Remains on vital high-protein at rate of 45 cc an hour and the patient is on Levemir insulin 15 units twice a day. Blood work showed a white cell count of 6.8 with a hemoglobin 9.3 and a platelet count of 310. Sodium level is at 137, BUN is 25 with a creatinine of 0.8 and a potassium level is at 3.8. Procalcitonin level is at 0.48. The patient is afebrile. Hemodynamically, he is in low rate atrial fibrillation. Remains on anticoagulation with Eliquis. On 08/11/2024, the patient is being seen for a follow-up. The patient remains on propofol running at 20 mcg/kg/min. Sedation holiday was done today and the patient was arousable and he was able to follow simple commands. Nevertheless, is not ready for weaning with extubation he was placed back on propofol. At the same time, the patient is on assist-control mode of mechanical ventilation at a rate of 20, tidal volume of 500, FiO2 of 100% with a PEEP of 16. Noted his oxygenation got worse overnight and the patient was placed on 100% FiO2. Current pulse ox is 97%. She has been gradually been his FiO2. The blood gases showed a pH of 7.49 with a pCO2 of 51 and pO2 of 76. The patient is currently on Lasix 40 mg IV every 8 hours and Zaroxolyn 5 mg p.o. twice a day. The net fluid balance is -4.8 L over the past 24 hours. Continues to have evidence of bilateral pleural effusion and extensive pulmonary edema in addition to extensive swelling in the upper and lower extremities bilaterally. He is on Levemir insulin 15 units twice daily. He is on vital high-protein at rate of 45 cc an hour. No seizure activity has been noted. Remains on IV Zosyn. Afebrile. Hemodynamically stable. The white cell count is 6.8 with a hemoglobin 8.7 and a platelet count of 333. The sodium levels at 136, bicarb levels at 34, potassium is at 3.9, BUN is 27 with a creatinine of 0.7. No other significant events overnight. On 08/12/2024, patient remains intubated on mechanical ventilator. The patient i s in a significant negative fluid balance and the patient is being diuresed with a combination of Lasix and Zaroxolyn. Fluid balance has been -4 L over the past 24 hours. The patient remains on Lasix 40 mg IV every 8 hours and Zaroxolyn 5 mg p.o. twice a day. The patient's follow-up chest x-ray from today shows improved aeration in the lungs. There is cardiomegaly. There is continued pulmonary edema and bilateral pleural effusions. Tube remains in good location. He is on assist-control mode of mechanical ventilation at rate of 20, tidal volume of 500, FiO2 of 70% with a PEEP of 16. Blood gas showed a pH of 7.54 with pCO2 48 and pO2 of 69. Remains on low rate atrial fibrillation and rate is controlled. Remains on vital high-protein at rate of 48 cc an hour. The white cell count is at 8 with a hemoglobin 8.9 and platelet count of 418. Sodium is at 135, BUN 33 with a creatinine of 0.6. Bicarbonate level is at 35. Afebrile. No other significant events overnight. Was given a sedation holiday and the patient's mentation was appropriate. Based on that, the patient was placed back on propofol which is running at 15 mcg/kg/min. On 08/13/2024, the patient remains intubated on the mechanical ventilator. Unfortunately, oxygenation remains unchanged despite excellent diuresis that the patient has achieved over the past 48 hours. For now, the patient is still on mechanical ventilator. Sedated with propofol running at 50 mcg/kg/min. He is on assist-control mode with rate of 20, tidal volume of 500, FiO2 of 80% with a PEEP of 16. The blood gas showed a pH of 7.56 with a pCO2 of 46 and pO2 of 101. Fluid balance is -4.8 L over the past 24 hours. The patient is afebrile., Comfortable. Hemodynamically stable on no pressors. White cell count of 9.1 with a hemoglobin 9.8 and a platelet count of 461. BUN 34 with a creatinine of 0.7 and sodium level of 134. Follow-up chest x-ray was done today and it shows left-sided pleural effusion, improvement in the volume status. ET tube remains in good location. The patient remains on anticoagulation with Eliquis regarding a low rate controlled atrial fibrillation. The patient remains on Eliquis 5 mg p.o. twice a day. The patient remains on Levemir insulin 20 units twice daily and sliding scale insulin coverage. The patient remains on empiric antibiotic coverage with IV Zosyn. Objective - Vital Signs Vital signs: Vital Signs Temp 98.4 F 08/13/24 04:00 Pulse 83 08/13/24 07:00 Resp 16 08/13/24 07:00 BP 104/69 08/13/24 07:00 Pulse Ox 95 08/13/24 07:00 FiO2 80 08/13/24 04:00 Intake & Output 08/12/24 08/13/24 08/13/24 18:59 06:59 18:59 Intake Total 1404.243 993.367 55 Output Total 5465 1420 Balance -4060.757 -426.633 55 Weight 213.2 kg Intake: IV 599 219 10 .9NS KVO 140 110 10 Lactated Ringers 500 ml @ 120 100 10 mls/hr IV .Q24H FABIENNE Rx#:[id number] Piperacillin-Tazobactam 3 300 .375 gm In Sodium Chloride 0.9% 100 ml @ 25 mls/hr IVPB Q8HR FABIENNE Rx# :[id number] Pressure Bag 39 9 Intake, IV Titration 130.243 279.367 Amount propofoL 1,000 mg In 130.243 279.367 Empty Bag 1 bag @ 20 MCG/ KG/MIN 25.855 mls/hr IV . Q3H53M FABIENNE Rx#:[id number] Tube Feeding 585 495 45 Other 90 Output: Urine 5465 1420 Other: Voiding Method Indwelling Catheter Indwelling Catheter ABP, PAP, CO, CI - Last Documented Arterial Blood Pressure 119/63 - Exam No acute distress, the patient is sedated, and, comfortable intubated on the mechanical ventilator. Orogastric and orotracheal tube are both in place. The patient is morbidly obese with a body mass index of 64.2. HEENT examination is grossly unremarkable. Mucous membranes are moist. No oral lesions. Neck supple. Full range of motion. No adenopathy thyromegaly or neck vein dist ention. Cardiovascular examination reveals irregular rhythm consistent with atrial fibrillation. S1-S2 normal. No S3 or S4. No discernible murmur noted. Heart sounds are very distant. The patient is bradycardic, still in atrial fibrillation. Lungs reveal mostly clear breath sounds. Scattered rhonchi and crackles are noted. No wheezes. Breath sounds equal bilaterally. Abdomen is soft, but very obese. No bowel sounds. Extremities are intact. There is significant amount of edema lower extremities bilaterally, diminished pulses, no cyanosis or clubbing Skin is without rash or lesion. Neurologic examination cannot be evaluated at this time. The patient is sedated on propofol. - Labs CBC & Chem 7: 08/13/24 06:20 08/13/24 06:20 Labs: Abnormal Lab Results - Last 24 Hours (Table) 08/12/24 08/12/24 08/12/24 Range/Units 11:21 17:55 21:02 Hgb (13.0-17.5) gm/dL Hct (39.0-53.0) % MCV (80.0-100.0) fL MCH (25.0-35.0) pg MCHC (31.0-37.0) g/dL RDW (11.5-15.5) % Plt Count (150-450) k/uL ABG pH (7.35-7.45) ABG pCO2 (35-45) mmHg ABG pO2 (83-108) mmHg ABG HCO3 (21-25) mmol/L ABG Total CO2 (19-24) mmol/L ABG O2 Saturation (94-97) % Hemoglobin (13.0-17.5) gm/dL Sodium (137-145) mmol/L Potassium (3.5-5.1) mmol/L Chloride (98-107) mmol/L Carbon Dioxide (22-30) mmol/L BUN (9-20) mg/dL Glucose (74-99) mg/dL POC Glucose (mg/dL) 227 H 263 H 255 H (70-110) mg/dL AST (17-59) U/L Albumin (3.5-5.0) g/dL 08/12/24 08/13/24 08/13/24 Range/Units 23:45 05:50 06:20 Hgb 9.8 L (13.0-17.5) gm/dL Hct 33.3 L (39.0-53.0) % MCV 76.9 L (80.0-100.0) fL MCH 22.6 L (25.0-35.0) pg MCHC 29.5 L (31.0-37.0) g/dL RDW 16.4 H (11.5-15.5) % Plt Count 461 H (150-450) k/uL ABG pH 7.56 H* (7.35-7.45) ABG pCO2 46 H (35-45) mmHg ABG pO2 61 L (83-108) mmHg ABG HCO3 41 H* (21-25) mmol/L ABG Total CO2 42 H (19-24) mmol/L ABG O2 Saturation 91.8 L (94-97) % Hemoglobin 9.2 L (13.0-17.5) gm/dL Sodium (137-145) mmol/L Potassium (3.5-5.1) mmol/L Chloride (98-107) mmol/L Carbon Dioxide (22-30) mmol/L BUN (9-20) mg/dL Glucose (74-99) mg/dL POC Glucose (mg/dL) 228 H (70-110) mg/dL AST (17-59) U/L Albumin (3.5-5.0) g/dL 08/13/24 08/13/24 Range/Units 06:20 07:14 Hgb (13.0-17.5) gm/dL Hct (39.0-53.0) % MCV (80.0-100.0) fL MCH (25.0-35.0) pg MCHC (31.0-37.0) g/dL RDW (11.5-15.5) % Plt Count (150-450) k/uL ABG pH (7.35-7.45) ABG pCO2 (35-45) mmHg ABG pO2 (83-108) mmHg ABG HCO3 (21-25) mmol/L ABG Total CO2 (19-24) mmol/L ABG O2 Saturation (94-97) % Hemoglobin (13.0-17.5) gm/dL Sodium 134 L (137-145) mmol/L Potassium 3.4 L (3.5-5.1) mmol/L Chloride 87 L (98-107) mmol/L Carbon Dioxide 37 H (22-30) mmol/L BUN 34 H (9-20) mg/dL Glucose 190 H (74-99) mg/dL POC Glucose (mg/dL) 209 H (70-110) mg/dL AST 12 L (17-59) U/L Albumin 3.0 L (3.5-5.0) g/dL Assessment and Plan Plan: Acute hypoxic respiratory failure, intubated on the mechanical ventilator. Acute hypoxic respiratory failure is likely multifactorial. The patient has multifocal airspace disease with COVID-19 pneumonia. Also suspect fluid overload as the patient may have an underlying bilateral pleural effusion. Unable to obtain a CAT scan of the chest because of his body habitus as the patient has a BMI of 66.8. Superimposed bacterial infection is felt to be less likely as the patient has no leukocytosis, no fever and procalcitonin level is elevated. No significant respiratory secretions and the sputum culture has been negative.. Remains intubated on mechanical ventilator. Patient was intubated on 08/05/2024. He is a residential resident. The patient remains on a high level of PEEP of 16 and FiO2 and the patient is on FiO2 of 80% chest x-ray shows improvement in volume status and the patient is being diuresed with IV Lasix and Zaroxolyn and the patient has been in significant negative fluid balance over the past 72 hours. Oxygenation remains borderline and unchanged. Chest x-ray findings are improving. Acute coronavirus infection infection and the patient tested positive at the time of admission on 08/05/2024 Chronic atrial fibrillation, currently bradycardic and still in atrial fibrillation, off Cardizem drip and off metoprolol and still anticoagulated with Eliquis, and the patient remains in the low rate atrial fibrillation Morbid obesity Acute leukocytosis, improved New onset seizure activity, started on IV Keppra. No further seizure activity has been noted. EEG was negative for any ongoing seizure activity. History of CVA. History of hyperlipidemia. History of hypertension. History of obstructive sleep apnea syndrome. Obesity hypoventilation syndrome with BMI of 63.9 also contributing to his hypercapnia/chronic CHF with preserved LV function/diastolic heart failure Diabetes mellitus type 2, maintained on Levemir insulin BPH Chronic metabolic alkalosis,, secondary to chronic hypercapnia History of iron deficiency anemia Polysubstance abuse with previous drug screen showing cocaine and b enzodiazepines History of right diabetic foot infection with previous I&D back in July 2023 and polymicrobial growth. Plan: Daily sedation holidays Continue ventilator support, gradual wean down FiO2 as tolerated, dropped FiO2 down to 70% Continue Decadron 6 mg IV every 24 hours Continue empiric antibiotic coverage with IV Zosyn as the patient is a residential resident Continue Lasix 40 mg IV every 8 hours Continue Zaroxolyn 5 mg p.o. twice a day Give the patient 2 doses of Diamox 250 mg IV Fluid balance is negative IV fluids to KVO check sputum Cx, are negative Unable to do a CAT scan of the chest due to his morbid obese body habitus CAT scan of the brain, no contrast was completed yesterday it was negative for any acute abnormalities Continue IV Keppra Management of atrial fibrillation and the patient remains off Cardizem drip and off metoprolol and Eliquis Enteral feeding for nutritional support with vital HP We will continue to follow. Condition remains critical. Critical care evaluation that was done more than 30 minutes Time with Patient: Greater than 30
--- NOTE | 2024-08-13 14:35 | P.PN ---
Subjective Progress Note Date: 08/12/24 Principal diagnosis: Reason for follow-up is pneumonia Patient is a 63-year-old male with a past medical history significant for diabetes mellitus hypertension hyperlipidemia atrial fibrillation sleep apnea patient has been brought to the hospital in respiratory distress, patient noted to be at has been reviewed the ICU tested positive for COVID subsequently did have persistent fever and white count concerning for possible aspiration pneumonia prompting this consultation. On today's evaluation that is 08/12/2024, the patient continues to be afebrile, the patient is on ventilator FiO2 currently at 80% no significant purulent secretions in the ET or any changes reported by the nursing staff Patient white count is 8.0, creatinine 0.69 Objective - Vital Signs Vital signs: Vital Signs Temp 98.2 F 08/12/24 16:00 Pulse 61 08/12/24 19:00 Resp 21 08/12/24 19:00 BP 125/84 08/12/24 19:00 Pulse Ox 93 L 08/12/24 19:00 FiO2 80 08/12/24 20:35 Intake & Output 08/12/24 08/12/24 08/13/24 06:59 18:59 06:59 Intake Total 1036 1404.243 98.248 Output Total 2750 5465 Balance -1714 -4060.757 98.248 Intake: IV 266 599 .9NS KVO 220 140 Lactated Ringers 500 ml @ 10 120 10 mls/hr IV .Q24H [facility] Rx#:[id number] Piperacillin-Tazobactam 3 300 .375 gm In Sodium Chloride 0.9% 100 ml @ 25 mls/hr IVPB Q8HR [facility] Rx# :[id number] Pressure Bag 36 39 Intake, IV Titration 200 130.243 98.248 Amount propofoL 1,000 mg In 200 130.243 98.248 Empty Bag 1 bag @ 20 MCG/ KG/MIN 25.855 mls/hr IV . Q3H53M [facility] Rx#:[id number] Tube Feeding 540 585 Other 30 90 Output: Urine 2750 5465 Other: Voiding Method Indwelling Catheter Indwelling Catheter ABP, PAP, CO, CI - Last Documented Arterial Blood Pressure 119/68 - Exam GENERAL DESCRIPTION: Middle-age man intubated on the vent RESPIRATORY SYSTEM: Unlabored breathing , decreased breath sounds at bases HEART: S1 S2 regular rate and rhythm , ABDOMEN: Soft , mild distention EXTREMITIES: Swelling to the leg no redness - Labs CBC & Chem 7: 08/13/24 06:20 08/13/24 11:30 Labs: Abnormal Lab Results - Last 24 Hours (Table) 08/12/24 08/12/24 08/12/24 Range/Units 00:09 05:46 06:07 RBC (4.30-5.90) m/uL Hgb (13.0-17.5) gm/dL Hct (39.0-53.0) % MCV (80.0-100.0) fL MCH (25.0-35.0) pg MCHC (31.0-37.0) g/dL RDW (11.5-15.5) % ABG pH 7.54 H (7.35-7.45) ABG pCO2 48 H (35-45) mmHg ABG pO2 69 L (83-108) mmHg ABG HCO3 41 H* (21-25) mmol/L ABG Total CO2 43 H (19-24) mmol/L Hemoglobin 8.8 L (13.0-17.5) gm/dL Sodium (137-145) mmol/L Chloride (98-107) mmol/L Carbon Dioxide (22-30) mmol/L BUN (9-20) mg/dL Glucose (74-99) mg/dL POC Glucose (mg/dL) 225 H 191 H (70-110) mg/dL Calcium (8.4-10.2) mg/dL 08/12/24 08/12/24 08/12/24 Range/Units 06:10 06:10 11:21 RBC 3.84 L (4.30-5.90) m/uL Hgb 8.9 L (13.0-17.5) gm/dL Hct 29.7 L (39.0-53.0) % MCV 77.3 L (80.0-100.0) fL MCH 23.1 L (25.0-35.0) pg MCHC 29.9 L (31.0-37.0) g/dL RDW 16.4 H (11.5-15.5) % ABG pH (7.35-7.45) ABG pCO2 (35-45) mmHg ABG pO2 (83-108) mmHg ABG HCO3 (21-25) mmol/L ABG Total CO2 (19-24) mmol/L Hemoglobin (13.0-17.5) gm/dL Sodium 134 L (137-145) mmol/L Chloride 89 L (98-107) mmol/L Carbon Dioxide 35 H (22-30) mmol/L BUN 33 H (9-20) mg/dL Glucose 177 H (74-99) mg/dL POC Glucose (mg/dL) 227 H (70-110) mg/dL Calcium 8.1 L (8.4-10.2) mg/dL 08/12/24 08/12/24 Range/Units 17:55 21:02 RBC (4.30-5.90) m/uL Hgb (13.0-17.5) gm/dL Hct (39.0-53.0) % MCV (80.0-100.0) fL MCH (25.0-35.0) pg MCHC (31.0-37.0) g/dL RDW (11.5-15.5) % ABG pH (7.35-7.45) ABG pCO2 (35-45) mmHg ABG pO2 (83-108) mmHg ABG HCO3 (21-25) mmol/L ABG Total CO2 (19-24) mmol/L Hemoglobin (13.0-17.5) gm/dL Sodium (137-145) mmol/L Chloride (98-107) mmol/L Carbon Dioxide (22-30) mmol/L BUN (9-20) mg/dL Glucose (74-99) mg/dL POC Glucose (mg/dL) 263 H 255 H (70-110) mg/dL Calcium (8.4-10.2) mg/dL Assessment and Plan (1) Pneumonia Current Visit: Yes Status: Acute Code(s): J18.9 - PNEUMONIA, UNSPECIFIED ORGANISM SNOMED Code(s): 403818593 (2) COVID-19 Current Visit: Yes Status: Acute Code(s): U07.1 - COVID-19 SNOMED Code(s): 901154016 Plan: 1patient presented to hospital about 5 days before initial evaluation in this patient came with acute respiratory failure requiring intubation patient did have features of sepsis as the patient did have fever elevated white count and tachycardia though tested positive for COVID-19 and did have procalcitonin 0.22 on admission and antibiotics not started initially however has been started yesterday and the patient feel better and seem to improving highly concerning for secondary bacterial pneumonia responsible for his fever and elevated white count 2-blood and sputum culture have been negative so far 3-patient did have resolution of his fever and white count has normalized, will continue with Zosyn 3.375 g every 8 hours and monitor clinical course closely Dictation was produced using [employer] dictation software. please excuse any grammatical, word or spelling errors. Time with Patient: Less than 30
--- NOTE | 2024-08-13 14:35 | P.PN ---
Subjective Progress Note Date: 08/13/24 Principal diagnosis: Reason for follow-up is pneumonia Patient is a 63-year-old male with a past medical history significant for diabetes mellitus hypertension hyperlipidemia atrial fibrillation sleep apnea patient has been brought to the hospital in respiratory distress, patient noted to be at has been reviewed the ICU tested positive for COVID subsequently did have persistent fever and white count concerning for possible aspiration pneumonia prompting this consultation. On today's evaluation that is 08/13/2024, patient did not have any fever, the patient remains to be debated on the vent FiO2 is down to 70% no significant purulent secretion through the ET or any changes reported by the nursing staff. Patient white count is 9.1, creatinine is 0.79, blood and sputum culture have been negative so far Objective - Vital Signs Vital signs: Vital Signs Temp 98.6 F 08/13/24 08:00 Pulse 65 08/13/24 11:00 Resp 20 08/13/24 11:00 BP 104/69 08/13/24 07:00 Pulse Ox 91 L 08/13/24 11:00 FiO2 70 08/13/24 12:30 Intake & Output 08/12/24 08/13/24 08/13/24 18:59 06:59 18:59 Intake Total 1404.243 993.367 836.000 Output Total 5465 1420 2965 Balance -4060.757 -426.633 -2129.000 Weight 213.2 kg Intake: IV 599 219 161 .9NS KVO 140 110 40 Lactated Ringers 500 ml @ 120 100 10 mls/hr IV .Q24H [facility] Rx#:[id number] Piperacillin-Tazobactam 3 300 100 .375 gm In Sodium Chloride 0.9% 100 ml @ 25 mls/hr IVPB Q8HR [facility] Rx# :[id number] Pressure Bag 39 9 21 Intake, IV Titration 130.243 279.367 100.000 Amount propofoL 1,000 mg In 130.243 279.367 100.000 Empty Bag 1 bag @ 20 MCG/ KG/MIN 25.855 mls/hr IV . Q3H53M FABIENNE Rx#:[id number] Tube Feeding 585 495 445 Other 90 130 Output: Urine 5465 1420 2965 Other: Voiding Method Indwelling Catheter Indwelling Catheter Indwelling Catheter # Bowel Movements 0 ABP, PAP, CO, CI - Last Documented Arterial Blood Pressure 101/63 - Exam GENERAL DESCRIPTION: Middle-age man intubated on the vent RESPIRATORY SYSTEM: Unlabored breathing , decreased breath sounds at bases HEART: S1 S2 regular rate and rhythm , ABDOMEN: Soft , mild distention EXTREMITIES: Swelling to the leg no redness - Labs CBC & Chem 7: 08/13/24 06:20 08/13/24 11:30 Labs: Abnormal Lab Results - Last 24 Hours (Table) 08/12/24 08/12/24 08/12/24 Range/Units 17:55 21:02 23:45 Hgb (13.0-17.5) gm/dL Hct (39.0-53.0) % MCV (80.0-100.0) fL MCH (25.0-35.0) pg MCHC (31.0-37.0) g/dL RDW (11.5-15.5) % Plt Count (150-450) k/uL ABG pH (7.35-7.45) ABG pCO2 (35-45) mmHg ABG pO2 (83-108) mmHg ABG HCO3 (21-25) mmol/L ABG Total CO2 (19-24) mmol/L ABG O2 Saturation (94-97) % Hemoglobin (13.0-17.5) gm/dL Sodium (137-145) mmol/L Potassium (3.5-5.1) mmol/L Chloride (98-107) mmol/L Carbon Dioxide (22-30) mmol/L BUN (9-20) mg/dL Glucose (74-99) mg/dL POC Glucose (mg/dL) 263 H 255 H 228 H (70-110) mg/dL AST (17-59) U/L Albumin (3.5-5.0) g/dL 08/13/24 08/13/24 08/13/24 Range/Units 05:50 06:20 06:20 Hgb 9.8 L (13.0-17.5) gm/dL Hct 33.3 L (39.0-53.0) % MCV 76.9 L (80.0-100.0) fL MCH 22.6 L (25.0-35.0) pg MCHC 29.5 L (31.0-37.0) g/dL RDW 16.4 H (11.5-15.5) % Plt Count 461 H (150-450) k/uL ABG pH 7.56 H* (7.35-7.45) ABG pCO2 46 H (35-45) mmHg ABG pO2 61 L (83-108) mmHg ABG HCO3 41 H* (21-25) mmol/L ABG Total CO2 42 H (19-24) mmol/L ABG O2 Saturation 91.8 L (94-97) % Hemoglobin 9.2 L (13.0-17.5) gm/dL Sodium 134 L (137-145) mmol/L Potassium 3.4 L (3.5-5.1) mmol/L Chloride 87 L (98-107) mmol/L Carbon Dioxide 37 H (22-30) mmol/L BUN 34 H (9-20) mg/dL Glucose 190 H (74-99) mg/dL POC Glucose (mg/dL) (70-110) mg/dL AST 12 L (17-59) U/L Albumin 3.0 L (3.5-5.0) g/dL 08/13/24 08/13/24 Range/Units 07:14 11:29 Hgb (13.0-17.5) gm/dL Hct (39.0-53.0) % MCV (80.0-100.0) fL MCH (25.0-35.0) pg MCHC (31.0-37.0) g/dL RDW (11.5-15.5) % Plt Count (150-450) k/uL ABG pH (7.35-7.45) ABG pCO2 (35-45) mmHg ABG pO2 (83-108) mmHg ABG HCO3 (21-25) mmol/L ABG Total CO2 (19-24) mmol/L ABG O2 Saturation (94-97) % Hemoglobin (13.0-17.5) gm/dL Sodium (137-145) mmol/L Potassium (3.5-5.1) mmol/L Chloride (98-107) mmol/L Carbon Dioxide (22-30) mmol/L BUN (9-20) mg/dL Glucose (74-99) mg/dL POC Glucose (mg/dL) 209 H 247 H (70-110) mg/dL AST (17-59) U/L Albumin (3.5-5.0) g/dL Assessment and Plan (1) Pneumonia Current Visit: Yes Status: Acute Code(s): J18.9 - PNEUMONIA, UNSPECIFIED ORGANISM SNOMED Code(s): 610332877 (2) COVID-19 Current Visit: Yes Status: Acute Code(s): U07.1 - COVID-19 SNOMED Code(s): 360757736 Plan: 1patient presented to hospital about 5 days before initial evaluation in this patient came with acute respiratory failure requiring intubation patient did have features of sepsis as the patient did have fever elevated white count and tachycardia though tested positive for COVID-19 and did have procalcitonin 0.22 on admission and antibiotics not started initially however has been started yesterday and the patient feel better and seem to improving highly concerning for secondary bacterial pneumonia responsible for his fever and elevated white count 2-blood and sputum culture have been negative so far 3-patient did have resolution of his fever and white count has normalized, 4patient is currently being treated with Zosyn 3.375 g every 8 hours and monitor clinical course closely Dictation was produced using [employer] dictation software. please excuse any grammatical, word or spelling errors. Time with Patient: Less than 30
--- NOTE | 2024-08-13 15:58 | P.PN ---
Subjective History of Present Illness: The patient is a 63-year-old male with known history of morbid obesity, permanent atrial fibrillation, prior history of CVA, hypertension and hyperlipidemia who presented from the longterm with progressive dyspnea and decreased mentation, he was found to be unresponsive and was intubated. He was diagnosed with COVID infection. He remains intubated. Cardiology consultation was requested because of the atrial fibrillation. The patient has a known permanent atrial fibrillation, anticoagulated. His ventricular rate was stable on presentation with episode of slow ventricular response. Yesterday he became tachycardic and was started on IV Cardizem. He is stable at this time. He has underwent cardiac catheterization in 2012 and was found to have mild to moderate obstructive disease. His left ventricular systolic function was preserved in 2022. He is on no vasopressors and his urinary output has been stable. His troponin was normal on admission and his NT proBNP was 3320. He has a history of hypertension and diabetes. Medications: As an outpatient he is on Eliquis 5 mg twice a day, losartan 12.5 mg daily, metoprolol tartrate 12.5 mg twice a day, insulin, Lasix 40 mg daily, MiraLAX, Flomax, gabapentin 08/08 Patient seen and examined. Patient had seizure-like activity and therefore taken for CT brain this morning which showed no significant change. EEG showing moderate to severe background slowing. He was more tachycardic on transfer however after getting patient situated has been in the bradycardic 40s to 50s A. fib. He did receive his metoprolol 12.5 twice a day. Remains on low dose norepinephrine. 08/09 Patient had more significant bradycardia with heart rates in the 30s and 40s however appears somewhat related to sedation and the propofol was weaned and heart rates came up morning of the 50s. His Lasix was increased to 40 mg IV every 8 hours. Additionally getting tube feeds. Remains on ventilator requiring increase in PEEP and currently on PEEP 14 and FiO2 80%. 08/10 Patient seen and examined. Patient remains in A. fib with controlled ventricular rates with mild bradycardia. Reported heart rates on the 30s however are predominantly 50s and 60s. Asymptomatic and hemodynamically stable. Off of pressors. Previously had been on Cardizem drip however this has been discontinued. Requiring increasing oxygen demand and up to 100% FiO2 with a PEEP of 14. On Lasix 40 mg 3 times a day with -1400 mL in last 24 hours. 08/11 Patient seen and examined. Remains in A. fib with heart rates in the 50s to 60s. Remains on ventilator with 100% FiO2 and PEEP of 16. Off of any vasopressors. He is -1500 mL over last 24 hours. Blood work from this morning pending however hemoglobin 8.7. 08/12 Patient seen and examined. Remains in A. fib with borderline heart rates in the 40s to 50s. Remains on diuretics with -1500 mL output over last 24 hours. Creatinine stable. FiO2 was able to be decreased on the 70%. PEEP remains 16. 08/13 patient seen and examined. Patient continued on IV Lasix and Zaroxolyn and has gotten off approximately -4 L for last 3 days. Remains on ventilator with FiO2 70% and a PEEP of 16. Remains in A. fib with low heart rates in the 40s to 50s and rarely into the 30s that he is oversedated. Physical Examination: 63-year-old male, intubated and sedated, morbidly obese, Head: Normocephalic. Eyes: Sclerae nonicteric. Neck: Good carotid upstroke, no bruit, . Lungs: Clear to auscultation anteriorly. Heart: Irregular rate and rhythm, S1-S2, no S3, no rub. No murmur. Abdomen: Soft obese, positive bowel sounds no organomegaly. Extremities: +2 edema. Impression: 1. Respiratory failure with COVID infection, possible aspiration pneumonia 2. Permanent atrial fibrillation 3. History of CVA 4. History of hypertension 5. History of diabetes 6. Morbid obesity 7. Obstructive sleep apnea 8. Bradycardia, asymptomatic 9. Acute on chronic diastolic heart failure Plan: Heart rates appear predominantly controlled and bradycardic likely exacerbated by sedation and appears stable. Continue diuresis to help optimize his respiratory status with severe respiratory failure. Continue with Lasix as well as Zaroxolyn. appears to be diuresing well Prognosis guarded Objective - Vital Signs Vital signs: Vital Signs Temp 98.3 F 08/13/24 12:00 Pulse 70 08/13/24 15:00 Resp 20 08/13/24 15:00 BP 104/69 08/13/24 07:00 Pulse Ox 90 L 08/13/24 15:00 FiO2 70 08/13/24 15:30 Intake & Output 01/05/2708/13/24 08/13/24 18:59 06:59 18:59 Intake Total 1404.243 582.299 1341.534 Output Total 5465 1420 3240 Balance -4060.757 -426.633 -2122.466 Weight 213.2 kg Intake: IV 599 219 264 .9NS KVO 140 110 40 Lactated Ringers 500 ml @ 120 100 10 mls/hr IV .Q24H [facility] Rx#:[id number] Piperacillin-Tazobactam 3 300 200 .375 gm In Sodium Chloride 0.9% 100 ml @ 25 mls/hr IVPB Q8HR [facility] Rx# :[id number] Pressure Bag 39 9 24 Intake, IV Titration 130.243 279.367 178.534 Amount propofoL 1,000 mg In 130.243 279.367 178.534 Empty Bag 1 bag @ 20 MCG/ KG/MIN 25.855 mls/hr IV . Q3H53M [facility] Rx#:[id number] Tube Feeding 585 495 545 Other 90 130 Output: Urine 5465 1420 3240 Other: Voiding Method Indwelling Catheter Indwelling Catheter Indwelling Catheter # Bowel Movements 0 ABP, PAP, CO, CI - Last Documented Arterial Blood Pressure 100/65 - Labs CBC & Chem 7: 08/13/24 06:20 08/13/24 11:30 Labs: Abnormal Lab Results - Last 24 Hours (Table) 08/12/24 08/12/24 08/12/24 Range/Units 17:55 21:02 23:45 Hgb (13.0-17.5) gm/dL Hct (39.0-53.0) % MCV (80.0-100.0) fL MCH (25.0-35.0) pg MCHC (31.0-37.0) g/dL RDW (11.5-15.5) % Plt Count (150-450) k/uL ABG pH (7.35-7.45) ABG pCO2 (35-45) mmHg ABG pO2 (83-108) mmHg ABG HCO3 (21-25) mmol/L ABG Total CO2 (19-24) mmol/L ABG O2 Saturation (94-97) % Hemoglobin (13.0-17.5) gm/dL Sodium (137-145) mmol/L Potassium (3.5-5.1) mmol/L Chloride (98-107) mmol/L Carbon Dioxide (22-30) mmol/L BUN (9-20) mg/dL Glucose (74-99) mg/dL POC Glucose (mg/dL) 263 H 255 H 228 H (70-110) mg/dL AST (17-59) U/L Albumin (3.5-5.0) g/dL 08/13/24 08/13/24 08/13/24 Range/Units 05:50 06:20 06:20 Hgb 9.8 L (13.0-17.5) gm/dL Hct 33.3 L (39.0-53.0) % MCV 76.9 L (80.0-100.0) fL MCH 22.6 L (25.0-35.0) pg MCHC 29.5 L (31.0-37.0) g/dL RDW 16.4 H (11.5-15.5) % Plt Count 461 H (150-450) k/uL ABG pH 7.56 H* (7.35-7.45) ABG pCO2 46 H (35-45) mmHg ABG pO2 61 L (83-108) mmHg ABG HCO3 41 H* (21-25) mmol/L ABG Total CO2 42 H (19-24) mmol/L ABG O2 Saturation 91.8 L (94-97) % Hemoglobin 9.2 L (13.0-17.5) gm/dL Sodium 134 L (137-145) mmol/L Potassium 3.4 L (3.5-5.1) mmol/L Chloride 87 L (98-107) mmol/L Carbon Dioxide 37 H (22-30) mmol/L BUN 34 H (9-20) mg/dL Glucose 190 H (74-99) mg/dL POC Glucose (mg/dL) (70-110) mg/dL AST 12 L (17-59) U/L Albumin 3.0 L (3.5-5.0) g/dL 08/13/24 08/13/24 Range/Units 07:14 11:29 Hgb (13.0-17.5) gm/dL Hct (39.0-53.0) % MCV (80.0-100.0) fL MCH (25.0-35.0) pg MCHC (31.0-37.0) g/dL RDW (11.5-15.5) % Plt Count (150-450) k/uL ABG pH (7.35-7.45) ABG pCO2 (35-45) mmHg ABG pO2 (83-108) mmHg ABG HCO3 (21-25) mmol/L ABG Total CO2 (19-24) mmol/L ABG O2 Saturation (94-97) % Hemoglobin (13.0-17.5) gm/dL Sodium (137-145) mmol/L Potassium (3.5-5.1) mmol/L Chloride (98-107) mmol/L Carbon Dioxide (22-30) mmol/L BUN (9-20) mg/dL Glucose (74-99) mg/dL POC Glucose (mg/dL) 209 H 247 H (70-110) mg/dL AST (17-59) U/L Albumin (3.5-5.0) g/dL
[2024-08-13 17:07] LABS: Glucose,Whole Blood 282 mg/dL (70-110)
--- NOTE | 2024-08-13 20:11 | P.PN ---
Subjective Progress Note Date: 08/13/24 Patient in the intensive care unit currently intubated and sedated on the mechanical ventilator. Patient's chest x-ray today does reveal worsening CHF. He is significantly edematous. Remains sedated with IV fentanyl and propofol. He continues on IV Zosyn. Patient was started on enteral feedings today. blood sugars are elevated in the 200s. 08/07/2024 Patient was evaluated in follow-up in the medical floor he is currently intubated and sedated on the mechanical ventilator. Patient had gone into atrial fibrillation with rapid ventricular rate overnight requiring IV Cardizem. He has been since transition to oral metoprolol with heart rate better controlled today. He does have a noted history of atrial fibrillation was resumed on his oral Eliquis yesterday. Patient currently has LR running at 75 mL/h he does remain quite edematous mostly in his lower extremities. Patient was noted to have a small amount of yellow bile emesis there has been no residual with his tube feedings and they are continued at a slow rate today of 10 mL/h. He is febrile today temperature of 100.8. An abdominal x-ray was unable to be completed due to patient's body habitus and he is unable to be transported down for x-ray at this time. 08/08/2024 Patient is seen in follow-up in the ICU and overnight placed on mechanical ventilation as patient was noted to have what appeared to be seizure-like activity with no history of seizures and neurology was consulted. Patient was placed on mechanical ventilation currently with an FiO2 of 60% and PEEP is 10 with pulmonary scientist engineer following. Patient remains with low-grade temps and also started on Keppra and is maintained on antibiotics. Cardiology following as well maintained on oral anticoagulation and has been having heart rates in the 40s. Continued on low-dose metoprolol and will continue to monitor closely. Per nursing staff patient also requiring low-dose Levophed and has been started on 40 of IV Lasix daily due to significant swelling. Will follow-up on repeat labs and continue to monitor closely. 08/09/2024 Patient is seen in follow-up with multiple consultations following including pulmonary, neurology, cardiology, and infectious disease consulted. Patient underwent EEG which was abnormal with no epileptiform discharges noted. Patient is continued on Keppra for now. Heart rates in the low 40s although per nursing staff slightly improved this afternoon and is being monitored closely with cardiology following. Patient is continued on Lasix for diuresis with significant volume overload. Wean pressors as tolerated and follow-up on repeat labs. Patient's blood sugars have been more elevated and possible steroid effect will increase long-acting and also Accu-Cheks before meals and at bedtime as well as sliding scale. Adjust accordingly. 08/10/2024 Patient is seen in follow-up today continues on mechanical ventilation in the ICU with an FiO2 of 80% and PEEP is 14. Undergoing sedation holidays and per nursing staff patient will open his eyes and attempt to track although not moving. Patient continues to be extremely edematous and is diuresing maintained on IV Lasix. Heart rates slightly improved and will continue current regimen per cardiology. No plans on extubation at this time. Per nursing staff patient has not had a bowel movement and is continued on bowel regimen. Abdomen is soft and there is positive bowel sounds noted. Patient continued on tube feeds. Highly recommend aspiration precautions and head of the bed elevated 30 to 45 degrees at all times. 08/12/2024 Patient is seen in follow-up today remains in the ICU with multiple consultations following. PEEP remains high at 16 with an FiO2 of 70% and per nursing staff has been having some desaturations and is being increased to 80% FiO2. Patient is maintained on metolazone along with IV Lasix and potassium borderline daily being replaced will add daily supplementation. Patient is having adequate diuresis and kidney functions are stable. Patient undergoing sedation holidays daily with no plans of weaning and extubation at this time. Patient is afebrile and maintained on IV Decadron along with Zosyn. Continue bowel regimen patient does have positive bowel sounds and is tolerating tube feeds at this time. Recommend aspiration precautions with head of the bed elevated 45 degrees at all times. 08/13/2024 Patient evaluated in the intensive care unit with multiple consultations following. Patient remains on the mechanical ventilator with a PEEP of 16 and FiO2 of 70%. Patient is appropriately arousable during sedation holidays. No plans for extubation at this time. Patient continues on IV Zosyn continues on IV Lasix IV Diamox and will be started on oral Zaroxolyn today. Lower extremities remain significantly edematous. Patient is continued on enteral feedings now at goal running at 55 mL/h. Blood glucose has been elevated in the 200s. Chest x-ray today reveals a left-sided pleural effusion. Unable to complete review of systems as patient is currently intubated and sedated PHYSICAL EXAMINATION: GENERAL: The patient is intubated and sedated. He is morbidly obese, well- developed, elderly appearing, extremely edematous of upper and lower extremities and body habitus, ill-appearing. FiO2 increased at 80% with a PEEP of 16 HEENT: Pupils are round and equally reacting to light. EOMI. No scleral icterus. No conjunctival pallor. Normocephalic, atraumatic. No pharyngeal erythema. No thyromegaly. CARDIOVASCULAR: S1 and S2 muffled, irregular PULMONARY: Diminished breath sounds bilaterally otherwise chest is clear to auscultation, no wheezing , no crackles. ABDOMEN: Soft, obese, nontender, nondistended, normoactive bowel sounds. No palpable organomegaly. Kelly catheter in place MUSCULOSKELETAL: No joint swelling or deformity. EXTREMITIES: No cyanosis, clubbing, continues with significant lower extremity edema bilaterally pitting right lower leg superficial wound with dressing dry and intact NEUROLOGICAL: Not following commands. Unable to completely assess as patient is intubated and maintained on sedation. Patient is undergoing sedation holidays and does open eyes SKIN: No rashes. no petechiae. Assessment: Acute hypoxic respiratory failure requiring intubation on admission, currently on mechanical ventilation, FiO2 is 70% with a PEEP of 16 COVID infection and possible pneumonia, concerns for aspiration pneumonia Possible seizure like activity, new onset, EEG was abnormal although not showing any epileptiform discharges, continued on Keppra for now with neurology following Possible acute COPD exacerbation versus obesity hypoventilation syndrome Possible bacterial pneumonia, healthcare associated with right upper lobe and left lower lobe infiltrates Severe sepsis requiring pressor support Acute on chronic diastolic heart failure with preserved EF A-fib and RVR, present on admission now with slow ventricular rate dropping into the 30s. Patient heart rate slightly improving and will continue current regimen per cardiology Right leg wound with recent cultures showing enterococcus faecalis, ESBL and Providencia Rettgeri Diabetes Mellitus type 2, uncontrolled with hyperglycemia Morbid obesity with a BMI of 64.2 Chronic anemia Lactic acidemia/acidosis, improved GI prophylaxis DVT prophylaxis Full Code Plan: Continue with antibiotic in the form of Zosyn with infectious disease following. Highly concerned for aspiration pneumonia. Continue with intubation and mechanical ventilation. FiO2 is 70% with a PEEP being increased to 16 and desats quickly per nursing staff. Wean as tolerated. No plans for extubation at this time and undergoing sedation holidays. Patient will open eyes although not following commands at this time. Continue enteral feedings, tube feeds were resumed and tolerating thus far.. Continue with aspiration precautions and head of the bed elevated 45 degrees at all times and monitor closely for residuals Patient has not had many bowel movements documented will continue bowel regimen and also daily suppositories. Patient does not have history of seizures and was started on Keppra and neurology following underwent EEG which was abnormal although not showing any epileptiform discharges. No further seizure-like activity noted. Continue cardiac telemetry with cardiology following. Continued on low-dose metoprolol Per pulmonary scientist engineer patient is continued on IV Lasix every 8 hours. And will continue to monitor kidney functions closely. Replace electrolytes per protocol. Daily supplementation of potassium ordered Continue eliquis and monitor for any signs of bleeding. Continue with Accu-Cheks before meals and at bedtime and sliding scale along with long-acting. Adjust insulins accordingly. Will increase long-acting insulin to twice daily levemir increased to 25 units BID. Repeat blood work in the AM Overall prognosis is guarded The impression and plan of care has been dictated by Susannah Campbell, Prac titioner as directed. Dr. Jackie MD I have performed a history and physical examination and medical decision making of this patient, discussed the same with the dictator, and agree with the dictators assessment and plan as written, documented as a scribe. Based on total visit time, I have performed more than 50% of this visit. Objective - Vital Signs Vital signs: Vital Signs Temp 98.6 F 08/13/24 08:00 Pulse 65 08/13/24 11:00 Resp 20 08/13/24 11:00 BP 104/69 08/13/24 07:00 Pulse Ox 91 L 08/13/24 11:00 FiO2 70 08/13/24 12:30 Intake & Output 08/12/24 08/13/24 08/13/24 18:59 06:59 18:59 Intake Total 1404.243 993.367 612.000 Output Total 5465 1420 1875 Balance -4060.757 -426.633 -1263.000 Weight 213.2 kg Intake: IV 599 219 132 .9NS KVO 140 110 20 Lactated Ringers 500 ml @ 120 100 10 mls/hr IV .Q24H FABIENNE Rx#:[id number] Piperacillin-Tazobactam 3 300 100 .375 gm In Sodium Chloride 0.9% 100 ml @ 25 mls/hr IVPB Q8HR FABIENNE Rx# :[id number] Pressure Bag 39 9 12 Intake, IV Titration 130.243 279.367 100.000 Amount propofoL 1,000 mg In 130.243 279.367 100.000 Empty Bag 1 bag @ 20 MCG/ KG/MIN 25.855 mls/hr IV . Q3H53M FABIENNE Rx#:[id number] Tube Feeding 585 495 280 Other 90 100 Output: Urine 8595 9386 0445 Other: Voiding Method Indwelling Catheter Indwelling Catheter Indwelling Catheter # Bowel Movements 0 ABP, PAP, CO, CI - Last Documented Arterial Blood Pressure 101/63 - Labs CBC & Chem 7: 08/13/24 06:20 08/13/24 15:28 Labs: Abnormal Lab Results - Last 24 Hours (Table) 08/12/24 08/12/24 08/12/24 Range/Units 17:55 21:02 23:45 Hgb (13.0-17.5) gm/dL Hct (39.0-53.0) % MCV (80.0-100.0) fL MCH (25.0-35.0) pg MCHC (31.0-37.0) g/dL RDW (11.5-15.5) % Plt Count (150-450) k/uL ABG pH (7.35-7.45) ABG pCO2 (35-45) mmHg ABG pO2 (83-108) mmHg ABG HCO3 (21-25) mmol/L ABG Total CO2 (19-24) mmol/L ABG O2 Saturation (94-97) % Hemoglobin (13.0-17.5) gm/dL Sodium (137-145) mmol/L Potassium (3.5-5.1) mmol/L Chloride (98-107) mmol/L Carbon Dioxide (22-30) mmol/L BUN (9-20) mg/dL Glucose (74-99) mg/dL POC Glucose (mg/dL) 263 H 255 H 228 H (70-110) mg/dL AST (17-59) U/L Albumin (3.5-5.0) g/dL 08/13/24 08/13/24 08/13/24 Range/Units 05:50 06:20 06:20 Hgb 9.8 L (13.0-17.5) gm/dL Hct 33.3 L (39.0-53.0) % MCV 76.9 L (80.0-100.0) fL MCH 22.6 L (25.0-35.0) pg MCHC 29.5 L (31.0-37.0) g/dL RDW 16.4 H (11.5-15.5) % Plt Count 461 H (150-450) k/uL ABG pH 7.56 H* (7.35-7.45) ABG pCO2 46 H (35-45) mmHg ABG pO2 61 L (83-108) mmHg ABG HCO3 41 H* (21-25) mmol/L ABG Total CO2 42 H (19-24) mmol/L ABG O2 Saturation 91.8 L (94-97) % Hemoglobin 9.2 L (13.0-17.5) gm/dL Sodium 134 L (137-145) mmol/L Potassium 3.4 L (3.5-5.1) mmol/L Chloride 87 L (98-107) mmol/L Carbon Dioxide 37 H (22-30) mmol/L BUN 34 H (9-20) mg/dL Glucose 190 H (74-99) mg/dL POC Glucose (mg/dL) (70-110) mg/dL AST 12 L (17-59) U/L Albumin 3.0 L (3.5-5.0) g/dL 08/13/24 08/13/24 Range/Units 07:14 11:29 Hgb (13.0-17.5) gm/dL Hct (39.0-53.0) % MCV (80.0-100.0) fL MCH (25.0-35.0) pg MCHC (31.0-37.0) g/dL RDW (11.5-15.5) % Plt Count (150-450) k/uL ABG pH (7.35-7.45) ABG pCO2 (35-45) mmHg ABG pO2 (83-108) mmHg ABG HCO3 (21-25) mmol/L ABG Total CO2 (19-24) mmol/L ABG O2 Saturation (94-97) % Hemoglobin (13.0-17.5) gm/dL Sodium (137-145) mmol/L Potassium (3.5-5.1) mmol/L Chloride (98-107) mmol/L Carbon Dioxide (22-30) mmol/L BUN (9-20) mg/dL Glucose (74-99) mg/dL POC Glucose (mg/dL) 209 H 247 H (70-110) mg/dL AST (17-59) U/L Albumin (3.5-5.0) g/dL Assessment and Plan Time with Patient: Less than 30
[2024-08-13] MEDS: MAGNESIUM SULFATE-D5W PMX 1 GM in DEXTROSE/WATER 1 100ML.BAG IVPB ONE (20:33)
[2024-08-13] MEDS: INSULIN DETEMIR (LEVEMIR) 100 UNIT/ML SYR SQ SCH (20:47)
[2024-08-13 23:29] LABS: Glucose,Whole Blood 147 mg/dL (70-110)
[2024-08-14 05:04] LABS: Glucose,Whole Blood 203 mg/dL (70-110)
[2024-08-14 05:16] LABS: Anisocytosis Slight; Basophils % (A) 0 %; Eosinophils # (A) 0.1 k/uL (0-0.7); Eosinophils % (A) 2 %; HCT 31.4 % (39.0-53.0); HGB 9.2 gm/dL (13.0-17.5); Hypochromasia Marked; Lymphocytes # (A) 1.5 k/uL (1.0-4.8); Lymphocytes % (A) 18 %; MCH 22.5 pg (25.0-35.0); MCHC 29.3 g/dL (31.0-37.0); MCV 76.8 fL (80.0-100.0); Mean Platelet Volume 7.2; Microcytosis Slight; Monocytes # (A) 0.6 k/uL (0-1.0); Monocytes % (A) 7 %; Neutrophils # (A) 5.9 k/uL (1.3-7.7); Neutrophils % (A) 71 %; Platelet Count 474 k/uL (150-450); RBC 4.09 m/uL (4.30-5.90); RDW 16.6 % (11.5-15.5); WBC 8.3 k/uL (3.8-10.6)
[2024-08-14 05:29] LABS: African American GFR (CKD) >90 (>60 ml/min/1.73 sqM); Anion Gap 5 mmol/L; Blood Urea Nitrogen 34 mg/dL (9-20); Calcium 8.6 mg/dL (8.4-10.2); Carbon Dioxide 40 mmol/L (22-30); Chloride 88 mmol/L (98-107); Glucose 195 mg/dL (74-99); Magnesium 1.9 mg/dL (1.6-2.3); Non-African American GFR(CKD) >90 (>60 ml/min/1.73 sqM); Potassium 3.3 mmol/L (3.5-5.1); Sodium 133 mmol/L (137-145)
[2024-08-14] MEDS: POTASSIUM CHLORIDE 20 MEQ in WATER FOR INJECTION 1 100ML.BAG IVPB SCH (05:52)
[2024-08-14 06:12] LABS: ABG Base Excess 12.6 mmol/L; ABG HCO3 37 mmol/L (21-25); ABG Oxygen Saturation 97.3 % (94-97); ABG PCO2 44 mmHg (35-45); ABG PH 7.52 (7.35-7.45); ABG PO2 86 mmHg (83-108); ABG TCO2 38 mmol/L (19-24); Allen Test Performed? no
[2024-08-14] MEDS: POTASSIUM BICARBONATE/CIT AC 20 MEQ TABLET.EFF PO SCH (09:28)
[2024-08-14] MEDS: MAGNESIUM SULFATE-D5W PMX 1 GM in DEXTROSE/WATER 1 100ML.BAG IVPB ONE (09:30)
--- NOTE | 2024-08-14 09:34 | XR ---
EXAMINATION TYPE: XR chest 1V portable DATE OF EXAM: 08/14/2024 6:52 AM COMPARISON: None. CLINICAL INDICATION: Male, 63 years old with history of ventilated patient, TECHNIQUE: XR chest 1V portable view(s) obtained. FINDINGS: The heart size is normal. The pulmonary vasculature is normal. There is a left lower lobe infiltrate and/or effusion. Silhouetting the left diaphragm is present. Endotracheal tube tip is 3 cm above the damian. Nasogastric tube transverses the thorax. IMPRESSION: 1. Stable left lower lobe infiltrate and/or effusion. 2. Lines and catheters discussed above [facility], , 08/14/2024 9:31 AM
[2024-08-14] MEDS: FUROSEMIDE 10 MG/ML 4 ML VIAL IV SCH (09:35)
--- NOTE | 2024-08-14 10:21 | P.PN ---
Subjective Progress Note Date: 08/12/24 08/12/2024: Patient was seen for a follow-up. Patient continues to be unresponsive. With painful stimuli, patient only does facial grimacing. Patient's neurological examination is stable per nurse, but he is requiring more PEEP and respiratory status is not improving, in fact slightly worse. Patient is on propofol 15 mcg/kg's per minute. 08/11/2024: Patient was seen for follow-up patient currently on propofol 15 mcg/kg/min. Per nurse report, with the sedation holiday, patient nodded yes and no appropriately. He wiggle his feet, squeeze the hands, but not much moving proximally. He is breathing was not better, was on PEEP 16, with 100% O2, but not has improved with FiO2 down to 80%. 08/10/2024: Patient was seen for a follow-up. Patient currently on propofol 20 mcg/kg's per minute. Per nurse report, with the sedation holiday, patient opens eyes, coughing gagging and drinking well. However not moving his limbs. Sedation holiday was done for about 30 minutes. 08/09/2024: Patient was seen for follow-up. Patient is off sedation. Patient opens his eyes, but the gaze is deviated upwards. Per nurse report, patient became bradycardic last night going down to 25's. X-ray revealed worsening congestion. Lasix was increased. Patient subsequently oxygen saturation decreased, therefore the PEEP was increased to 14. Last night nurse noted that he was not much responsive. It was the same time he was bradycardic she weaned down the sedation. At present patient is on propofol only 15 mcg/kg's per minute. Fentanyl was turned off at 4 PM yesterday. No seizure-like activity noted. Objective - Vital Signs Vital signs: Vital Signs Temp 97.9 F 08/12/24 20:00 Pulse 61 08/12/24 22:00 Resp 20 08/12/24 22:00 BP 153/90 08/12/24 22:00 Pulse Ox 93 L 08/12/24 22:00 FiO2 80 08/12/24 20:35 Intake & Output 08/12/24 08/12/24 08/13/24 06:59 18:59 06:59 Intake Total 1036 1404.243 383.367 Output Total 2750 5465 725 Balance -1714 -7490.757 -341.633 Intake: IV 266 599 69 .9NS KVO 220 140 30 Lactated Ringers 500 ml @ 10 120 30 10 mls/hr IV .Q24H [facility]NE Rx#:[id number] Piperacillin-Tazobactam 3 300 .375 gm In Sodium Chloride 0.9% 100 ml @ 25 mls/hr IVPB Q8HR [facility]NE Rx# :[id number] Pressure Bag 36 39 9 Intake, IV Titration 200 130.243 179.367 Amount propofoL 1,000 mg In 200 130.243 179.367 Empty Bag 1 bag @ 20 MCG/ KG/MIN 25.855 mls/hr IV . Q3H53M FABIENNE Rx#:[id number] Tube Feeding 540 585 135 Other 30 90 Output: Urine 2750 5465 725 Other: Voiding Method Indwelling Catheter Indwelling Catheter Indwelling Catheter ABP, PAP, CO, CI - Last Documented Arterial Blood Pressure 114/61 - Exam Patient is intubated, on mild sedation 15 mcg/kg's per minute. No obvious seizure-like activity noticed. Patient only has facial grimacing on painful stimuli. Does not open his eyes. Patient continues to be significantly encephalopathic, somnolent. Pupils are round and reacting. Please refer to above for nursing report. Patient at present sedated. - Labs CBC & Chem 7: 08/14/24 05:03 08/14/24 05:03 Labs: Abnormal Lab Results - Last 24 Hours (Table) 08/12/24 08/12/24 08/12/24 Range/Units 00:09 05:46 06:07 RBC (4.30-5.90) m/uL Hgb (13.0-17.5) gm/dL Hct (39.0-53.0) % MCV (80.0-100.0) fL MCH (25.0-35.0) pg MCHC (31.0-37.0) g/dL RDW (11.5-15.5) % ABG pH 7.54 H (7.35-7.45) ABG pCO2 48 H (35-45) mmHg ABG pO2 69 L (83-108) mmHg ABG HCO3 41 H* (21-25) mmol/L ABG Total CO2 43 H (19-24) mmol/L Hemoglobin 8.8 L (13.0-17.5) gm/dL Sodium (137-145) mmol/L Chloride (98-107) mmol/L Carbon Dioxide (22-30) mmol/L BUN (9-20) mg/dL Glucose (74-99) mg/dL POC Glucose (mg/dL) 225 H 191 H (70-110) mg/dL Calcium (8.4-10.2) mg/dL 08/12/24 08/12/24 08/12/24 Range/Units 06:10 06:10 11:21 RBC 3.84 L (4.30-5.90) m/uL Hgb 8.9 L (13.0-17.5) gm/dL Hct 29.7 L (39.0-53.0) % MCV 77.3 L (80.0-100.0) fL MCH 23.1 L (25.0-35.0) pg MCHC 29.9 L (31.0-37.0) g/dL RDW 16.4 H (11.5-15.5) % ABG pH (7.35-7.45) ABG pCO2 (35-45) mmHg ABG pO2 (83-108) mmHg ABG HCO3 (21-25) mmol/L ABG Total CO2 (19-24) mmol/L Hemoglobin (13.0-17.5) gm/dL Sodium 134 L (137-145) mmol/L Chloride 89 L (98-107) mmol/L Carbon Dioxide 35 H (22-30) mmol/L BUN 33 H (9-20) mg/dL Glucose 177 H (74-99) mg/dL POC Glucose (mg/dL) 227 H (70-110) mg/dL Calcium 8.1 L (8.4-10.2) mg/dL 08/12/24 08/12/24 Range/Units 17:55 21:02 RBC (4.30-5.90) m/uL Hgb (13.0-17.5) gm/dL Hct (39.0-53.0) % MCV (80.0-100.0) fL MCH (25.0-35.0) pg MCHC (31.0-37.0) g/dL RDW (11.5-15.5) % ABG pH (7.35-7.45) ABG pCO2 (35-45) mmHg ABG pO2 (83-108) mmHg ABG HCO3 (21-25) mmol/L ABG Total CO2 (19-24) mmol/L Hemoglobin (13.0-17.5) gm/dL Sodium (137-145) mmol/L Chloride (98-107) mmol/L Carbon Dioxide (22-30) mmol/L BUN (9-20) mg/dL Glucose (74-99) mg/dL POC Glucose (mg/dL) 263 H 255 H (70-110) mg/dL Calcium (8.4-10.2) mg/dL Assessment and Plan Assessment: * Altered mental status, likely due to hypoxic/toxic metabolic encephalopathy. Patient was found unresponsive at the facility, with saturation of 70%. * Acute COVID-19 pneumonia. Chest x-ray showing bilateral infiltrates. 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 Some sporadic normal appearing background was also seen, which may pertain to better prognosis. However clinical correlation and follow-up EEG strongly recommended. * Continue Keppra 1000 mg twice daily. Patient has received loading dose of Keppra 1500 mg as well. No seizure-like activity noticed since then. We will decrease Keppra down to 750 mg twice daily. * Continue Eliquis for atrial fibrillation. * Patient on Zosyn. * Other medical management as per IM and critical care. * Discussed with nursing staff in detail. * Dr. Rio Miguel to start neurology service from Thursday.
--- NOTE | 2024-08-14 10:38 | P.PN ---
Subjective Progress Note Date: 08/14/24 History of Present Illness: The patient is a 63-year-old male with known history of morbid obesity, perman ent atrial fibrillation, prior history of CVA, hypertension and hyperlipidemia who presented from the custodial with progressive dyspnea and decreased mentation, he was found to be unresponsive and was intubated. He was diagnosed with COVID infection. He remains intubated. Cardiology consultation was requested because of the atrial fibrillation. The patient has a known permanent atrial fibrillation, anticoagulated. His ventricular rate was stable on presentation with episode of slow ventricular response. Yesterday he became tachycardic and was started on IV Cardizem. He is stable at this time. He has underwent cardiac catheterization in 2012 and was found to have mild to moderate obstructive disease. His left ventricular systolic function was preserved in 2022. He is on no vasopressors and his urinary output has been stable. His troponin was normal on admission and his NT proBNP was 3320. He has a history of hypertension and diabetes. Medications: As an outpatient he is on Eliquis 5 mg twice a day, losartan 12.5 mg daily, metoprolol tartrate 12.5 mg twice a day, insulin, Lasix 40 mg daily, MiraLAX, Flomax, gabapentin 08/08 Patient seen and examined. Patient had seizure-like activity and therefore taken for CT brain this morning which showed no significant change. EEG showing moderate to severe background slowing. He was more tachycardic on transfer however after getting patient situated has been in the bradycardic 40s to 50s A. fib. He did receive his metoprolol 12.5 twice a day. Remains on low dose norepinephrine. 08/09 Patient had more significant bradycardia with heart rates in the 30s and 40s however appears somewhat related to sedation and the propofol was weaned and heart rates came up morning of the 50s. His Lasix was increased to 40 mg IV ev mera 8 hours. Additionally getting tube feeds. Remains on ventilator requiring increase in PEEP and currently on PEEP 14 and FiO2 80%. 08/10 Patient seen and examined. Patient remains in A. fib with controlled ventricular rates with mild bradycardia. Reported heart rates on the 30s however are predominantly 50s and 60s. Asymptomatic and hemodynamically stable. Off of pressors. Previously had been on Cardizem drip however this has been discontinued. Requiring increasing oxygen demand and up to 100% FiO2 with a PEEP of 14. On Lasix 40 mg 3 times a day with -1400 mL in last 24 hours. 08/11 Patient seen and examined. Remains in A. fib with heart rates in the 50s to 60s. Remains on ventilator with 100% FiO2 and PEEP of 16. Off of any vasopressors. He is -1500 mL over last 24 hours. Blood work from this morning pending however hemoglobin 8.7. 08/12 Patient seen and examined. Remains in A. fib with borderline heart rates in the 40s to 50s. Remains on diuretics with -1500 mL output over last 24 hours. Creatinine stable. FiO2 was able to be decreased on the 70%. PEEP remains 16. 08/13 patient seen and examined. Patient continued on IV Lasix and Zaroxolyn and has gotten off approximately -4 L for last 3 days. Remains on ventilator with FiO2 70% and a PEEP of 16. Remains in A. fib with low heart rates in the 40s to 50s and rarely into the 30s that he is oversedated. 08/14 Patient seen and examined. Patient remains intubated and on mechanical ventilation. He is currently on IV Lasix and frequency was decreased to every 12 hours per pulmonary medicine as well as Diamox was ordered x 2 doses. He has had good urine output. He is not currently on vasopressors. Patient is in atrial fibrillation with controlled rate. Physical Examination: 63-year-old male, intubated and sedated, morbidly obese, Head: Normocephalic. Eyes: Sclerae nonicteric. Neck: Good carotid upstroke, no bruit, . Lungs: Clear to auscultation anteriorly. Heart: Irregular rate and rhythm, S1-S2, no S3, no rub. No murmur. Abdomen: Soft obese, positive bowel sounds no organomegaly. Extremities: +2 edema. Impression: 1. Respiratory failure with COVID infection, possible aspiration pneumonia 2. Permanent atrial fibrillation 3. History of CVA 4. History of hypertension 5. History of diabetes 6. Morbid obesity 7. Obstructive sleep apnea 8. Bradycardia, asymptomatic 9. Acute on chronic diastolic heart failure Plan: Heart rates appear predominantly controlled and bradycardic likely exacerbated by sedation and appears stable. Continue diuresis to help optimize his respiratory status with severe respiratory failure. Continue with Lasix as well as Zaroxolyn. Patient is diuresing well Prognosis guarded Nurse practitioner note has been reviewed, I agree with documented findings and plan of care. Patient was seen and examined. Objective - Vital Signs Vital signs: Vital Signs Temp 97.6 F 08/14/24 08:00 Pulse 72 08/14/24 09:00 Resp 20 08/14/24 09:00 BP 118/81 08/14/24 09:00 Pulse Ox 97 08/14/24 09:00 FiO2 50 08/14/24 09:19 Intake & Output 08/13/24 08/14/24 08/14/24 18:59 06:59 18:59 Intake Total 6824.298 0938.735 58 Output Total 4290 4190 250 Balance -2907.921 -3036.265 -192 Weight 207.802 kg Intake: IV 276 203 13 .9NS KVO 40 70 10 Piperacillin-Tazobactam 3 200 100 .375 gm In Sodium Chloride 0.9% 100 ml @ 25 mls/hr IVPB Q8HR [facility] Rx# :[id number] Pressure Bag 36 33 3 Intake, IV Titration 246.079 320.735 Amount Magnesium Sulfate-D5w Pmx 100 1 gm In Dextrose/Water 1 100ml.bag @ 100 mls/hr IVPB ONCE ONE Rx#: [id number] propofoL 1,000 mg In 246.079 220.735 Empty Bag 1 bag @ 20 MCG/ KG/MIN 25.855 mls/hr IV . Q3H53M [facility] Rx#:[id number] Tube Feeding 700 540 45 Other 160 90 Output: Urine 4290 4190 250 Other: Voiding Method Indwelling Catheter Indwelling Catheter # Bowel Movements 1 ABP, PAP, CO, CI - Last Documented Arterial Blood Pressure 117/69 - Labs CBC & Chem 7: 08/14/24 05:03 08/14/24 05:03 Labs: Abnormal Lab Results - Last 24 Hours (Table) 08/13/24 08/13/24 08/13/24 Range/Units 11:29 17:04 23:28 RBC (4.30-5.90) m/uL Hgb (13.0-17.5) gm/dL Hct (39.0-53.0) % MCV (80.0-100.0) fL MCH (25.0-35.0) pg MCHC (31.0-37.0) g/dL RDW (11.5-15.5) % Plt Count (150-450) k/uL ABG pH (7.35-7.45) ABG HCO3 (21-25) mmol/L ABG Total CO2 (19-24) mmol/L ABG O2 Saturation (94-97) % Sodium (137-145) mmol/L Potassium (3.5-5.1) mmol/L Chloride (98-107) mmol/L Carbon Dioxide (22-30) mmol/L BUN (9-20) mg/dL Glucose (74-99) mg/dL POC Glucose (mg/dL) 247 H 282 H 147 H (70-110) mg/dL 08/14/24 08/14/24 08/14/24 Range/Units 05:03 05:03 05:03 RBC 4.09 L (4.30-5.90) m/uL Hgb 9.2 L (13.0-17.5) gm/dL Hct 31.4 L (39.0-53.0) % MCV 76.8 L (80.0-100.0) fL MCH 22.5 L (25.0-35.0) pg MCHC 29.3 L (31.0-37.0) g/dL RDW 16.6 H (11.5-15.5) % Plt Count 474 H (150-450) k/uL ABG pH (7.35-7.45) ABG HCO3 (21-25) mmol/L ABG Total CO2 (19-24) mmol/L ABG O2 Saturation (94-97) % Sodium 133 L (137-145) mmol/L Potassium 3.3 L (3.5-5.1) mmol/L Chloride 88 L (98-107) mmol/L Carbon Dioxide 40 H (22-30) mmol/L BUN 34 H (9-20) mg/dL Glucose 195 H (74-99) mg/dL POC Glucose (mg/dL) 203 H (70-110) mg/dL 08/14/24 Range/Units 06:08 RBC (4.30-5.90) m/uL Hgb (13.0-17.5) gm/dL Hct (39.0-53.0) % MCV (80.0-100.0) fL MCH (25.0-35.0) pg MCHC (31.0-37.0) g/dL RDW (11.5-15.5) % Plt Count (150-450) k/uL ABG pH 7.52 H (7.35-7.45) ABG HCO3 37 H (21-25) mmol/L ABG Total CO2 38 H (19-24) mmol/L ABG O2 Saturation 97.3 H (94-97) % Sodium (137-145) mmol/L Potassium (3.5-5.1) mmol/L Chloride (98-107) mmol/L Carbon Dioxide (22-30) mmol/L BUN (9-20) mg/dL Glucose (74-99) mg/dL POC Glucose (mg/dL) (70-110) mg/dL
[2024-08-14 11:22] LABS: Glucose,Whole Blood 228 mg/dL (70-110)
--- NOTE | 2024-08-14 11:53 | P.PN ---
Subjective Progress Note Date: 08/14/24 On 08/08/2024, the patient is being seen in follow-up in the intensive care unit. This is a morbidly obese 63-year-old male patient who is currently intubated on the mechanical ventilator. Initially presented to us on 08/05/2024 for respiratory distress and the patient became unresponsive. He is known to have morbid obesity, COPD, chronic A-fib, CVA, hypertension hyperlipidemia. He resides in a assisted and the patient was found to be unresponsive and not breathing properly. His pulse ox was also very low and the patient was hypotensive and minimally responsive. He came into the emergency department where he was intubated and placed on the mechanical ventilator. Since admission, the patient was found to be COVID-19 positive. He had a follow-up chest x-ray today that shows significant rotation, ET tube is probably 1 cm above the damian and there is evidence of left lower lobe consolidat ion/effusion. Noted at the time of admission, he had also a right upper lobe consolidation in addition to left lower lobe consolidation. Sputum samples have been negative as collected on 08/05/2024 and blood cultures been also negative. No significant leukocytosis. The patient is currently on no antibiotics. The patient is on propofol which is running at 30 mcg/kg/min, and is also on fentanyl at 1 mcg/kg/h.. The patient is on assist-control mode of mechanical ventilation at rate of 20, tidal volume of 500, FiO2 of 60 % with a PEEP of 10. Blood gases from today shows a pH of 7.46 with a pCO2 of 51 and pO2 of 69 and this was an FiO2 of 60%. The patient is on lactated Ringer at rate of 75 cc an hour. The patient receiving vital high-protein at rate of 55 cc an hour. He remains in atrial fibrillation with rapid ventricular response. He is off Cardizem drip . He is also on metoprolol 12.5 mg twice a day and anticoagulation with Eliquis 5 mg p.o. twice a day. He is on Levemir insulin 15 units at bedtime. Earlier this morning, the patient noted to have episodic generalized tonic-clonic seizure-like activity. The patient was kept on propofol. He was given Ativan 2 mg IV push x 2 and started on Keppra. CAT scan of the brain is to follow. EEG is to follow. Neurology consultation is to follow. The patient is on lactated Ringer at rate of 75 cc an hour. Norepinephrine was also started this morning and is currently running at 0.03 mcg/kg/min. He is on EN , vital HP at 35 cc/hr On 08/09/2024, the patient is being seen for a follow-up. The patient remains intubated on the mechanical ventilator. This morning, the patient is on propofol which is running at 15 mcg/kg/min. Noted the propofol rate was gradually reduced as of yesterday and the fentanyl has been discontinued. Overnight, the patient continued to have bradycardic events and the heart rate was dropping as low as in the 40s and the rhythm remains atrial fibrillation. The patient was taken off the beta-blockers. The patient this morning is on assist-control mode of mechanical ventilation at rate of 20, tidal volume of 500, FiO2 of 60% with a PEEP of 5. Blood gas showed a pH of 7.51 with a pCO2 of 43 and pO2 of 64. Chest x-ray showing bilateral airspace disease, worse on the right essentially involving the lung bases. The patient is currently on no pressors. The patient remains on vital high-protein at rate of 45 cc an hour. No further seizure activity has been noted. The patient remains on IV Keppra. EEG showed encephalopathy without any seizure activity. Neurology on the case. The patient remains on IV Zosyn. The patient continues to have significant amount of edema in all 4 extremities and the patient remains on IV Lasix 40 mg every 12 hours. Fluid balance is +180 cc over the past 24 hours. Repeat cultures were sent and the results are still pending. The patient remains on anticoagulation with Eliquis regarding chronic atrial fibrillation. Cardizem drip is off. Metoprolol is currently on hold. On 08/10/2024, the patient is being seen for a follow-up. This morning, the patient is on propofol running at 20 mcg/kg/min. Remains deeply sedated. He is morbidly obese and he remains on the mechanical ventilator due to hypoxic/hypercapnic respiratory failure. This morning, he is on assist-control mode with rate of 20, tidal volume of 500, FiO2 is at 80% with a PEEP of 14. pH is 7.47 with a pCO2 of 44 and pO2 of 67. Chest x-ray shows bilateral pleural effusions and an area of dense consolidation in left upper lobe. There are signs of fluid overload as the patient continues to have extensive edema in all 4 extremities. He is on IV Lasix. Fluid balance is -1.5 L over the past 24 hours. The patient remains on IV Zosyn as an empiric antibiotic coverage. No pressors. No seizure activity and the patient remains on IV Keppra. EEG showed no evidence of any ongoing seizure activity. Remains on vital high-protein at rate of 45 cc an hour and the patient is on Levemir insulin 15 units twice a day. Blood work showed a white cell count of 6.8 with a hemoglobin 9.3 and a platelet count of 310. Sodium level is at 137, BUN is 25 with a creatinine of 0.8 and a potassium level is at 3.8. Procalcitonin level is at 0.48. The patient is afebrile. Hemodynamically, he is in low rate atrial fibrillation. Remains on anticoagulation with Eliquis. On 08/11/2024, the patient is being seen for a follow-up. The patient remains on propofol running at 20 mcg/kg/min. Sedation holiday was done today and the patient was arousable and he was able to follow simple commands. Nevertheless, is not ready for weaning with extubation he was placed back on propofol. At the same time, the patient is on assist-control mode of mechanical ventilation at a rate of 20, tidal volume of 500, FiO2 of 100% with a PEEP of 16. Noted his oxygenation got worse overnight and the patient was placed on 100% FiO2. Current pulse ox is 97%. She has been gradually been his FiO2. The blood gases showed a pH of 7.49 with a pCO2 of 51 and pO2 of 76. The patient is currently on Lasix 40 mg IV every 8 hours and Zaroxolyn 5 mg p.o. twice a day. The net fluid balance is -4.8 L over the past 24 hours. Continues to have evidence of bilateral pleural effusion and extensive pulmonary edema in addition to extensive swelling in the upper and lower extremities bilaterally. He is on Levemir insulin 15 units twice daily. He is on vital high-protein at rate of 45 cc an hour. No seizure activity has been noted. Remains on IV Zosyn. Afebrile. Hemodynamically stable. The white cell count is 6.8 with a hemoglobin 8.7 and a platelet count of 333. The sodium levels at 136, bicarb levels at 34, potassium is at 3.9, BUN is 27 with a creatinine of 0.7. No other significant events overnight. On 08/12/2024, patient remains intubated on mechanical ventilator. The patient i s in a significant negative fluid balance and the patient is being diuresed with a combination of Lasix and Zaroxolyn. Fluid balance has been -4 L over the past 24 hours. The patient remains on Lasix 40 mg IV every 8 hours and Zaroxolyn 5 mg p.o. twice a day. The patient's follow-up chest x-ray from today shows improved aeration in the lungs. There is cardiomegaly. There is continued pulmonary edema and bilateral pleural effusions. Tube remains in good location. He is on assist-control mode of mechanical ventilation at rate of 20, tidal volume of 500, FiO2 of 70% with a PEEP of 16. Blood gas showed a pH of 7.54 with pCO2 48 and pO2 of 69. Remains on low rate atrial fibrillation and rate is controlled. Remains on vital high-protein at rate of 48 cc an hour. The white cell count is at 8 with a hemoglobin 8.9 and platelet count of 418. Sodium is at 135, BUN 33 with a creatinine of 0.6. Bicarbonate level is at 35. Afebrile. No other significant events overnight. Was given a sedation holiday and the patient's mentation was appropriate. Based on that, the patient was placed back on propofol which is running at 15 mcg/kg/min. On 08/13/2024, the patient remains intubated on the mechanical ventilator. Unfortunately, oxygenation remains unchanged despite excellent diuresis that the patient has achieved over the past 48 hours. For now, the patient is still on mechanical ventilator. Sedated with propofol running at 50 mcg/kg/min. He is on assist-control mode with rate of 20, tidal volume of 500, FiO2 of 80% with a PEEP of 16. The blood gas showed a pH of 7.56 with a pCO2 of 46 and pO2 of 101. Fluid balance is -4.8 L over the past 24 hours. The patient is afebrile., Comfortable. Hemodynamically stable on no pressors. White cell count of 9.1 with a hemoglobin 9.8 and a platelet count of 461. BUN 34 with a creatinine of 0.7 and sodium level of 134. Follow-up chest x-ray was done today and it shows left-sided pleural effusion, improvement in the volume status. ET tube remains in good location. The patient remains on anticoagulation with Eliquis regarding a low rate controlled atrial fibrillation. The patient remains on Eliquis 5 mg p.o. twice a day. The patient remains on Levemir insulin 20 units twice daily and sliding scale insulin coverage. The patient remains on empiric antibiotic coverage with IV Zosyn. On 08/14/2024, the patient remains on the mechanical ventilator on propofol running at 50 mcg/kg/min. Remains on Lasix and Zaroxolyn. Fluid balance is - 5.9 L over the past 24 hours and over the past 72 hours, the patient has been at least 19 L negative fluid balance. The ventilator settings are essentially unchanged. The patient remains on assist-control mode on mechanical ventilation at a rate of 20, tidal volume of 500, FiO2 of 70% with a PEEP of 16. Morning blood gas showed a pH of 7.52 with a pCO2 of 44 and pO2 of 86. The patient is on Levemir insulin 25 units twice daily. The patient is on vital high-protein. The patient remains on Levemir insulin for blood sugar control and the patient is currently on 25 units twice a day with adequate blood sugar control. Labs from today show a white cell count of 8, hemoglobin of 9.2 and a platelet count of 474. Sodium levels at 133, K is at 3.3, bicarb is at 40, BUN 34 with a creatinine of 0.9. The patient remains on IV Zosyn. Objective - Vital Signs Vital signs: Vital Signs Temp 97.7 F 08/14/24 04:00 Pulse 66 08/14/24 07:00 Resp 20 08/14/24 07:00 BP 100/77 08/14/24 07:00 Pulse Ox 98 08/14/24 07:00 FiO2 70 08/14/24 07:38 Intake & Output 08/13/24 08/14/24 08/14/24 18:59 06:59 18:59 Intake Total 2868.403 9107.735 58 Output Total 4290 4190 250 Balance -2907.921 -3036.265 -192 Weight 207.802 kg Intake: IV 276 203 13 .9NS KVO 40 70 10 Piperacillin-Tazobactam 3 200 100 .375 gm In Sodium Chloride 0.9% 100 ml @ 25 mls/hr IVPB Q8HR [facility] Rx# :[id number] Pressure Bag 36 33 3 Intake, IV Titration 246.079 320.735 Amount Magnesium Sulfate-D5w Pmx 100 1 gm In Dextrose/Water 1 100ml.bag @ 100 mls/hr IVPB ONCE ONE Rx#: [id number] propofoL 1,000 mg In 246.079 220.735 Empty Bag 1 bag @ 20 MCG/ KG/MIN 25.855 mls/hr IV . Q3H53M [facility] Rx#:[id number] Tube Feeding 700 540 45 Other 160 90 Output: Urine 4290 4190 250 Other: Voiding Method Indwelling Catheter Indwelling Catheter # Bowel Movements 1 ABP, PAP, CO, CI - Last Documented Arterial Blood Pressure 104/70 - Exam No acute distress, the patient is sedated, and, comfortable intubated on the mechanical ventilator. Orogastric and orotracheal tube are both in place. The patient is morbidly obese with a body mass index of 64.2. HEENT examination is grossly unremarkable. Mucous membranes are moist. No oral lesions. Neck supple. Full range of motion. No adenopathy thyromegaly or neck vein distention. Cardiovascular examination reveals irregular rhythm consistent with atrial fibrillation. S1-S2 normal. No S3 or S4. No discernible murmur noted. Heart sounds are very distant. The patient is bradycardic, still in atrial fibrillation. Lungs reveal mostly clear breath sounds. Scattered rhonchi and crackles are noted. No wheezes. Breath sounds equal bilaterally. Abdomen is soft, but very obese. No bowel sounds. Extremities are intact. There is significant amount of edema lower extremities bilaterally, diminished pulses, no cyanosis or clubbing Skin is without rash or lesion. Neurologic examination cannot be evaluated at this time. The patient is sedated on propofol. - Labs CBC & Chem 7: 08/14/24 05:03 08/14/24 11:20 Labs: Abnormal Lab Results - Last 24 Hours (Table) 08/13/24 08/13/24 08/13/24 Range/Units 11:29 17:04 23:28 RBC (4.30-5.90) m/uL Hgb (13.0-17.5) gm/dL Hct (39.0-53.0) % MCV (80.0-100.0) fL MCH (25.0-35.0) pg MCHC (31.0-37.0) g/dL RDW (11.5-15.5) % Plt Count (150-450) k/uL ABG pH (7.35-7.45) ABG HCO3 (21-25) mmol/L ABG Total CO2 (19-24) mmol/L ABG O2 Saturation (94-97) % Sodium (137-145) mmol/L Potassium (3.5-5.1) mmol/L Chloride (98-107) mmol/L Carbon Dioxide (22-30) mmol/L BUN (9-20) mg/dL Glucose (74-99) mg/dL POC Glucose (mg/dL) 247 H 282 H 147 H (70-110) mg/dL 08/14/24 08/14/24 08/14/24 Range/Units 05:03 05:03 05:03 RBC 4.09 L (4.30-5.90) m/uL Hgb 9.2 L (13.0-17.5) gm/dL Hct 31.4 L (39.0-53.0) % MCV 76.8 L (80.0-100.0) fL MCH 22.5 L (25.0-35.0) pg MCHC 29.3 L (31.0-37.0) g/dL RDW 16.6 H (11.5-15.5) % Plt Count 474 H (150-450) k/uL ABG pH (7.35-7.45) ABG HCO3 (21-25) mmol/L ABG Total CO2 (19-24) mmol/L ABG O2 Saturation (94-97) % Sodium 133 L (137-145) mmol/L Potassium 3.3 L (3.5-5.1) mmol/L Chloride 88 L (98-107) mmol/L Carbon Dioxide 40 H (22-30) mmol/L BUN 34 H (9-20) mg/dL Glucose 195 H (74-99) mg/dL POC Glucose (mg/dL) 203 H (70-110) mg/dL 08/14/24 Range/Units 06:08 RBC (4.30-5.90) m/uL Hgb (13.0-17.5) gm/dL Hct (39.0-53.0) % MCV (80.0-100.0) fL MCH (25.0-35.0) pg MCHC (31.0-37.0) g/dL RDW (11.5-15.5) % Plt Count (150-450) k/uL ABG pH 7.52 H (7.35-7.45) ABG HCO3 37 H (21-25) mmol/L ABG Total CO2 38 H (19-24) mmol/L ABG O2 Saturation 97.3 H (94-97) % Sodium (137-145) mmol/L Potassium (3.5-5.1) mmol/L Chloride (98-107) mmol/L Carbon Dioxide (22-30) mmol/L BUN (9-20) mg/dL Glucose (74-99) mg/dL POC Glucose (mg/dL) (70-110) mg/dL Assessment and Plan Plan: Acute hypoxic respiratory failure, intubated on the mechanical ventilator. Acute hypoxic respiratory failure is likely multifactorial. The patient has multifocal airspace disease with COVID-19 pneumonia. Also suspect fluid overload as the patient may have an underlying bilateral pleural effusion. Unable to obtain a CAT scan of the chest because of his body habitus as the patient has a BMI of 66.8. Superimposed bacterial infection is felt to be less likely as the patient has no leukocytosis, no fever and procalcitonin level is elevated. No significant respiratory secretions and the sputum culture has been negative.. Remains intubated on mechanical ventilator. Patient was intubated on 08/05/2024. He is a assisted resident. The patient remains on a high level of PEEP of 16 and FiO2 and the patient is on FiO2 of 80% chest x-ray shows improvement in volume status and the patient is being diuresed with IV Lasix and Zaroxolyn and the patient has been in significant negative fluid balance over the past 72 hours. Oxygenation remains borderline and unchanged. Chest x-ray findings are stable and overall improved. The patient is negative fluid balance of at least 19 L over the past 72 hours. Acute coronavirus infection infection and the patient tested positive at the time of admission on 08/05/2024 Chronic atrial fibrillation, currently bradycardic and still in atrial fibrillation, off Cardizem drip and off metoprolol and still anticoagulated with Eliquis, and the patient remains in the low rate atrial fibrillation Morbid obesity Acute leukocytosis, improved New onset seizure activity, started on IV Keppra. No further seizure activity has been noted. EEG was negative for any ongoing seizure activity. History of CVA. History of hyperlipidemia. History of hypertension. History of obstructive sleep apnea syndrome. Obesity hypoventilation syndrome with BMI of 63.9 also contributing to his hypercapnia/chronic CHF with preserved LV function/diastolic heart failure Diabetes mellitus type 2, maintained on Levemir insulin BPH Chronic metabolic alkalosis,, secondary to chronic hypercapnia History of iron deficiency anemia Polysubstance abuse with previous drug screen showing cocaine and benzodiazepines History of right diabetic foot infection with previous I&D back in July 2023 and polymicrobial growth. Plan: Daily sedation holidays Continue ventilator support, gradual wean down FiO2 as tolerated, dropped FiO2 down to 50% and will gradually will wean down the PEEP Continue Decadron 6 mg IV every 24 hours Continue empiric antibiotic coverage with IV Zosyn as the patient is a assisted resident Continue Lasix 40 mg IV every 8 hours Continue Zaroxolyn 5 mg p.o. twice a day Give 2 doses of Diamox 500 mg IV Fluid balance is negative IV fluids to KVO check sputum Cx, are negative Unable to do a CAT scan of the chest due to his morbid obese body habitus CAT scan of the brain, no contrast was completed yesterday it was negative for any acute abnormalities Continue IV Keppra Management of atrial fibrillation and the patient remains off Cardizem drip and off metoprolol and Eliquis Enteral feeding for nutritional support with vital HP We will continue to follow. Condition remains critical. Critical care evaluation that was done more than 30 minutes
[2024-08-14] MEDS: POTASSIUM CHLORIDE 20 MEQ in WATER FOR INJECTION 1 100ML.BAG IVPB STA ×2 (13:00→20:46)
--- NOTE | 2024-08-14 13:15 | P.PN ---
Subjective Progress Note Date: 08/14/24 Principal diagnosis: Reason for follow-up is pneumonia Patient is a 63-year-old male with a past medical history significant for diabetes mellitus hypertension hyperlipidemia atrial fibrillation sleep apnea patient has been brought to the hospital in respiratory distress, patient noted to be at has been reviewed the ICU tested positive for COVID subsequently did have persistent fever and white count concerning for possible aspiration pneumonia prompting this consultation. On today's evaluation that is 08/14/2024, Patient is afebrile patient is currently on ventilator FiO2 is currently stable at 50% no significant purulent secretion through the ET as reported by the mechanical test technician no vomiting or diarrhea has been reported by the nursing staff not requiring pressors. Patient white count is 8.3, creatinine 0.90 blood and sputum culture have been negative Objective - Vital Signs Vital signs: Vital Signs Temp 98.4 F 08/14/24 12:00 Pulse 70 08/14/24 12:00 Resp 16 08/14/24 12:00 BP 114/76 08/14/24 11:00 Pulse Ox 92 L 08/14/24 12:00 FiO2 50 08/14/24 12:00 Intake & Output 08/13/24 08/14/24 08/14/24 18:59 06:59 18:59 Intake Total 8718.907 5959.735 813 Output Total 4290 4190 1999 Balance -3042.921 -3036.265 -1187 Weight 207.802 kg Intake: IV 276 203 378 .9NS KVO 40 70 60 Magnesium Sulfate-D5w Pmx 100 1 gm In Dextrose/Water 1 100ml.bag @ 100 mls/hr IVPB ONCE ONE Rx#: [id number] Piperacillin-Tazobactam 3 200 100 100 .375 gm In Sodium Chloride 0.9% 100 ml @ 25 mls/hr IVPB Q8HR [facility] Rx# :[id number] Potassium Chloride 20 meq 100 In Water For Injection 1 100ml.bag @ 50 mls/hr IVPB Q2H [facility] Rx#: [id number] Pressure Bag 36 33 18 Intake, IV Titration 246.079 320.735 100 Amount Magnesium Sulfate-D5w Pmx 100 1 gm In Dextrose/Water 1 100ml.bag @ 100 mls/hr IVPB ONCE ONE Rx#: [id number] propofoL 1,000 mg In 246.079 220.735 100 Empty Bag 1 bag @ 20 MCG/ KG/MIN 25.855 mls/hr IV . Q3H53M [facility] Rx#:[id number] Tube Feeding 565 540 275 Other 160 90 60 Output: Urine 6070 4190 2000 Other: Voiding Method Indwelling Catheter Indwelling Catheter Indwelling Catheter # Bowel Movements 1 ABP, PAP, CO, CI - Last Documented Arterial Blood Pressure 109/71 - Exam GENERAL DESCRIPTION: Middle-age man intubated on the vent RESPIRATORY SYSTEM: Unlabored breathing , decreased breath sounds at bases HEART: S1 S2 regular rate and rhythm , ABDOMEN: Soft , mild distention EXTREMITIES: Swelling to the leg no redness - Labs CBC & Chem 7: 08/14/24 05:03 08/14/24 11:20 Labs: Abnormal Lab Results - Last 24 Hours (Table) 08/13/24 08/13/24 08/14/24 Range/Units 17:04 23:28 05:03 RBC (4.30-5.90) m/uL Hgb (13.0-17.5) gm/dL Hct (39.0-53.0) % MCV (80.0-100.0) fL MCH (25.0-35.0) pg MCHC (31.0-37.0) g/dL RDW (11.5-15.5) % Plt Count (150-450) k/uL ABG pH (7.35-7.45) ABG HCO3 (21-25) mmol/L ABG Total CO2 (19-24) mmol/L ABG O2 Saturation (94-97) % Sodium 133 L (137-145) mmol/L Potassium 3.3 L (3.5-5.1) mmol/L Chloride 88 L (98-107) mmol/L Carbon Dioxide 40 H (22-30) mmol/L BUN 34 H (9-20) mg/dL Glucose 195 H (74-99) mg/dL POC Glucose (mg/dL) 282 H 147 H (70-110) mg/dL 08/14/24 08/14/24 08/14/24 Range/Units 05:03 05:03 06:08 RBC 4.09 L (4.30-5.90) m/uL Hgb 9.2 L (13.0-17.5) gm/dL Hct 31.4 L (39.0-53.0) % MCV 76.8 L (80.0-100.0) fL MCH 22.5 L (25.0-35.0) pg MCHC 29.3 L (31.0-37.0) g/dL RDW 16.6 H (11.5-15.5) % Plt Count 474 H (150-450) k/uL ABG pH 7.52 H (7.35-7.45) ABG HCO3 37 H (21-25) mmol/L ABG Total CO2 38 H (19-24) mmol/L ABG O2 Saturation 97.3 H (94-97) % Sodium (137-145) mmol/L Potassium (3.5-5.1) mmol/L Chloride (98-107) mmol/L Carbon Dioxide (22-30) mmol/L BUN (9-20) mg/dL Glucose (74-99) mg/dL POC Glucose (mg/dL) 203 H (70-110) mg/dL 08/14/24 Range/Units 11:21 RBC (4.30-5.90) m/uL Hgb (13.0-17.5) gm/dL Hct (39.0-53.0) % MCV (80.0-100.0) fL MCH (25.0-35.0) pg MCHC (31.0-37.0) g/dL RDW (11.5-15.5) % Plt Count (150-450) k/uL ABG pH (7.35-7.45) ABG HCO3 (21-25) mmol/L ABG Total CO2 (19-24) mmol/L ABG O2 Saturation (94-97) % Sodium (137-145) mmol/L Potassium (3.5-5.1) mmol/L Chloride (98-107) mmol/L Carbon Dioxide (22-30) mmol/L BUN (9-20) mg/dL Glucose (74-99) mg/dL POC Glucose (mg/dL) 228 H (70-110) mg/dL Assessment and Plan (1) Pneumonia Current Visit: Yes Status: Acute Code(s): J18.9 - PNEUMONIA, UNSPECIFIED ORGANISM SNOMED Code(s): 104550776 (2) COVID-19 Current Visit: Yes Status: Acute Code(s): U07.1 - COVID-19 SNOMED Code(s): 643782925 Plan: 1patient presented to hospital about 5 days before initial evaluation in this patient came with acute respiratory failure requiring intubation patient did have features of sepsis as the patient did have fever elevated white count and tachycardia though tested positive for COVID-19 and did have procalcitonin 0.22 on admission and antibiotics not started initially however has been started yesterday and the patient feel better and seem to improving highly concerning for secondary bacterial pneumonia responsible for his fever and elevated white count 2-blood and sputum culture have been negative so far 3-patient did have resolution of his fever and white count has normalized, will continue with his Zosyn to finish a 10-day course of therapy 4did have a groin triple-lumen catheter with some excoriation triple-lumen will be discontinued tomorrow send the tip for the culture PICC line discussed with the nursing staff Dictation was produced using [employer] dictation software. please excuse any grammatical, word or spelling errors. Time with Patient: Less than 30
[2024-08-14] MEDS: POTASSIUM CHLORIDE 20 MEQ in WATER FOR INJECTION 1 100ML.BAG IVPB ONE (15:27)
[2024-08-14 17:45] LABS: Glucose,Whole Blood 275 mg/dL (70-110)
--- NOTE | 2024-08-14 19:01 | P.PN ---
Subjective Progress Note Date: 08/14/24 Patient in the intensive care unit currently intubated and sedated on the mechanical ventilator. Patient's chest x-ray today does reveal worsening CHF. He is significantly edematous. Remains sedated with IV fentanyl and propofol. He continues on IV Zosyn. Patient was started on enteral feedings today. blood sugars are elevated in the 200s. 08/07/2024 Patient was evaluated in follow-up in the medical floor he is currently intubated and sedated on the mechanical ventilator. Patient had gone into atrial fibrillation with rapid ventricular rate overnight requiring IV Cardizem. He has been since transition to oral metoprolol with heart rate better controlled today. He does have a noted history of atrial fibrillation was resumed on his oral Eliquis yesterday. Patient currently has LR running at 75 mL/h he does remain quite edematous mostly in his lower extremities. Patient was noted to have a small amount of yellow bile emesis there has been no residual with his tube feedings and they are continued at a slow rate today of 10 mL/h. He is febrile today temperature of 100.8. An abdominal x-ray was unable to be completed due to patient's body habitus and he is unable to be transported down for x-ray at this time. 08/08/2024 Patient is seen in follow-up in the ICU and overnight placed on mechanical ventilation as patient was noted to have what appeared to be seizure-like activity with no history of seizures and neurology was consulted. Patient was placed on mechanical ventilation currently with an FiO2 of 60% and PEEP is 10 with pulmonary global climate change analyst following. Patient remains with low-grade temps and also started on Keppra and is maintained on antibiotics. Cardiology following as well maintained on oral anticoagulation and has been having heart rates in the 40s. Continued on low-dose metoprolol and will continue to monitor closely. Per nursing staff patient also requiring low-dose Levophed and has been started on 40 of IV Lasix daily due to significant swelling. Will follow-up on repeat labs and continue to monitor closely. 08/09/2024 Patient is seen in follow-up with multiple consultations following including pulmonary, neurology, cardiology, and infectious disease consulted. Patient underwent EEG which was abnormal with no epileptiform discharges noted. Patient is continued on Keppra for now. Heart rates in the low 40s although per nursing staff slightly improved this afternoon and is being monitored closely with cardiology following. Patient is continued on Lasix for diuresis with significant volume overload. Wean pressors as tolerated and follow-up on repeat labs. Patient's blood sugars have been more elevated and possible steroid effect will increase long-acting and also Accu-Cheks before meals and at bedtime as well as sliding scale. Adjust accordingly. 08/10/2024 Patient is seen in follow-up today continues on mechanical ventilation in the ICU with an FiO2 of 80% and PEEP is 14. Undergoing sedation holidays and per nursing staff patient will open his eyes and attempt to track although not moving. Patient continues to be extremely edematous and is diuresing maintained on IV Lasix. Heart rates slightly improved and will continue current regimen per cardiology. No plans on extubation at this time. Per nursing staff patient has not had a bowel movement and is continued on bowel regimen. Abdomen is soft and there is positive bowel sounds noted. Patient continued on tube feeds. Highly recommend aspiration precautions and head of the bed elevated 30 to 45 degrees at all times. 08/12/2024 Patient is seen in follow-up today remains in the ICU with multiple consultations following. PEEP remains high at 16 with an FiO2 of 70% and per nursing staff has been having some desaturations and is being increased to 80% FiO2. Patient is maintained on metolazone along with IV Lasix and potassium borderline daily being replaced will add daily supplementation. Patient is having adequate diuresis and kidney functions are stable. Patient undergoing sedation holidays daily with no plans of weaning and extubation at this time. Patient is afebrile and maintained on IV Decadron along with Zosyn. Continue bowel regimen patient does have positive bowel sounds and is tolerating tube feeds at this time. Recommend aspiration precautions with head of the bed elevated 45 degrees at all times. 08/13/2024 Patient evaluated in the intensive care unit with multiple consultations following. Patient remains on the mechanical ventilator with a PEEP of 16 and FiO2 of 70%. Patient is appropriately arousable during sedation holidays. No plans for extubation at this time. Patient continues on IV Zosyn continues on IV Lasix IV Diamox and continues on oral zaroxolyn. Lower extremities remain significantly edematous. Patient is continued on enteral feedings now at goal running at 55 mL/h. Blood glucose has been elevated in the 200s. Chest x-ray today reveals a left-sided pleural effusion. 08/14/2024 Patient eval today in follow-up in the intensive care unit patient remains on mechanical ventilator, FiO2 down to 50%. Chest x-ray today reveals stable left lower lobe infiltrate and effusion. Patient remains on IV decadron daily. IV lasix 40 mg Q12 hour. Increased urine output over the last 24 hours. Lower extremity edema has mildly improved. Bowels are moving. Patient is tolerating enteral feeding. IV zosyn has been discontinued. WBC 8.3, hgb 9.2, sodium 133, BUN 34, creatinine 0.90, magnesium 1.9. Unable to complete review of systems as patient is currently intubated and sedated PHYSICAL EXAMINATION: GENERAL: The patient is intubated and sedated. He is morbidly obese, well- developed, elderly appearing, extremely edematous of upper and lower extremities and body habitus, ill-appearing. FiO2 increased at 80% with a PEEP of 16 HEENT: Pupils are round and equally reacting to light. EOMI. No scleral icterus. No conjunctival pallor. Normocephalic, atraumatic. No pharyngeal erythema. No thyromegaly. CARDIOVASCULAR: S1 and S2 muffled, irregular PULMONARY: Diminished breath sounds bilaterally otherwise chest is clear to auscultation, no wheezing , no crackles. ABDOMEN: Soft, obese, nontender, nondistended, normoactive bowel sounds. No palpable organomegaly. Kelly catheter in place MUSCULOSKELETAL: No joint swelling or deformity. EXTREMITIES: No cyanosis, clubbing, continues with significant lower extremity edema bilaterally pitting right lower leg superficial wound with dressing dry and intact NEUROLOGICAL: Not following commands. Unable to completely assess as patient is intubated and maintained on sedation. Patient is undergoing sedation holidays and does open eyes SKIN: No rashes. no petechiae. Assessment: Acute hypoxic respiratory failure requiring intubation on admission, currently on mechanical ventilation, FiO2 is 50%, PEEP has been turned down. COVID infection and possible pneumonia, concerns for aspiration pneumonia Possible seizure like activity, new onset, EEG was abnormal although not showing any epileptiform discharges, continued on Keppra for now with neurology following Possible acute COPD exacerbation versus obesity hypoventilation syndrome Possible bacterial pneumonia, healthcare associated with right upper lobe and left lower lobe infiltrates Severe sepsis requiring pressor support Acute on chronic diastolic heart failure with preserved EF A-fib and RVR, present on admission now with slow ventricular rate dropping into the 30s. Patient heart rate slightly improving and will continue current regimen per cardiology Right leg wound with recent cultures showing enterococcus faecalis, ESBL and Providencia Rettgeri Diabetes Mellitus type 2, uncontrolled with hyperglycemia Morbid obesity with a BMI of 64.2 Chronic anemia Lactic acidemia/acidosis, improved GI prophylaxis DVT prophylaxis Full Code Plan: Continue with antibiotic in the form of Zosyn with infectious disease following. Highly concerned for aspiration pneumonia. Continue with intubation and mechanical ventilation. FiO2 and PEEP have been decreased today. No plans for extubation at this time and undergoing sedation holidays. Patient will open eyes and following simple commands. Continue enteral feedings, tube feeds were resumed and tolerating thus far.. Continue with aspiration precautions and head of the bed elevated 45 degrees at all times and monitor closely for residuals Patient has not had many bowel movements documented will continue bowel regimen and also daily suppositories. Patient does not have history of seizures and was started on Keppra and neurology following underwent EEG which was abnormal although not showing any epileptiform discharges. No further seizure-like activity noted. Continue cardiac telemetry with cardiology following. Continued on low-dose metoprolol Per pulmonary global climate change analyst patient is continued on IV Lasix every 12 hours. And will continue to monitor kidney functions closely. Replace electrolytes per protocol. Daily supplementation of potassium ordered Continue eliquis and monitor for any signs of bleeding. Continue with Accu-Cheks before meals and at bedtime and sliding scale along with long-acting. Adjust insulins accordingly. Will increase long-acting insulin to twice daily levemir increased again to 30 units BID. Repeat blood work in the AM Overall prognosis is guarded The impression and plan of care has been dictated by Susannah Campbell, Nurse Practitioner as directed. Dr. Jackie MD I have performed a history and physical examination and medical decision making of this patient, discussed the same with the dictator, and agree with the dictators assessment and plan as written, documented as a scribe. Based on total visit time, I have performed more than 50% of this visit. Objective - Vital Signs Vital signs: Vital Signs Temp 98.4 F 08/14/24 12:00 Pulse 58 L 08/14/24 18:00 Resp 20 08/14/24 18:00 BP 114/76 08/14/24 11:00 Pulse Ox 92 L 08/14/24 18:00 FiO2 50 08/14/24 18:00 Intake & Output 08/13/24 08/14/24 08/14/24 18:59 06:59 18:59 Intake Total 3550.712 4013.735 1590.583 Output Total 4290 4190 4300 Balance -3042.921 -3036.265 -2709.417 Weight 207.802 kg Intake: IV 276 203 499 .9NS KVO 40 70 60 Magnesium Sulfate-D5w Pmx 100 1 gm In Dextrose/Water 1 100ml.bag @ 100 mls/hr IVPB ONCE ONE Rx#: [id number] Piperacillin-Tazobactam 3 200 100 100 .375 gm In Sodium Chloride 0.9% 100 ml @ 25 mls/hr IVPB Q8HR [facility] Rx# :[id number] Potassium Chloride 20 meq 200 In Water For Injection 1 100ml.bag @ 50 mls/hr IVPB Q2H [facility] Rx#: [id number] Pressure Bag 36 33 39 Intake, IV Titration 246.079 320.735 286.583 Amount Magnesium Sulfate-D5w Pmx 100 1 gm In Dextrose/Water 1 100ml.bag @ 100 mls/hr IVPB ONCE ONE Rx#: [id number] propofoL 1,000 mg In 246.079 220.735 286.583 Empty Bag 1 bag @ 20 MCG/ KG/MIN 25.855 mls/hr IV . Q3H53M [facility] Rx#:[id number] Tube Feeding 565 540 715 Other 160 90 90 Output: Urine 4290 4190 4300 Other: Voiding Method Indwelling Catheter Indwelling Catheter Indwelling Catheter # Bowel Movements 1 0 ABP, PAP, CO, CI - Last Documented Arterial Blood Pressure 98/59 - Labs CBC & Chem 7: 08/14/24 05:03 08/14/24 14:30 Labs: Abnormal Lab Results - Last 24 Hours (Table) 08/13/24 08/14/24 08/14/24 Range/Units 23:28 05:03 05:03 RBC (4.30-5.90) m/uL Hgb (13.0-17.5) gm/dL Hct (39.0-53.0) % MCV (80.0-100.0) fL MCH (25.0-35.0) pg MCHC (31.0-37.0) g/dL RDW (11.5-15.5) % Plt Count (150-450) k/uL ABG pH (7.35-7.45) ABG HCO3 (21-25) mmol/L ABG Total CO2 (19-24) mmol/L ABG O2 Saturation (94-97) % Sodium 133 L (137-145) mmol/L Potassium 3.3 L (3.5-5.1) mmol/L Chloride 88 L (98-107) mmol/L Carbon Dioxide 40 H (22-30) mmol/L BUN 34 H (9-20) mg/dL Glucose 195 H (74-99) mg/dL POC Glucose (mg/dL) 147 H 203 H (70-110) mg/dL 08/14/24 08/14/24 08/14/24 Range/Units 05:03 06:08 11:21 RBC 4.09 L (4.30-5.90) m/uL Hgb 9.2 L (13.0-17.5) gm/dL Hct 31.4 L (39.0-53.0) % MCV 76.8 L (80.0-100.0) fL MCH 22.5 L (25.0-35.0) pg MCHC 29.3 L (31.0-37.0) g/dL RDW 16.6 H (11.5-15.5) % Plt Count 474 H (150-450) k/uL ABG pH 7.52 H (7.35-7.45) ABG HCO3 37 H (21-25) mmol/L ABG Total CO2 38 H (19-24) mmol/L ABG O2 Saturation 97.3 H (94-97) % Sodium (137-145) mmol/L Potassium (3.5-5.1) mmol/L Chloride (98-107) mmol/L Carbon Dioxide (22-30) mmol/L BUN (9-20) mg/dL Glucose (74-99) mg/dL POC Glucose (mg/dL) 228 H (70-110) mg/dL 08/14/24 Range/Units 17:43 RBC (4.30-5.90) m/uL Hgb (13.0-17.5) gm/dL Hct (39.0-53.0) % MCV (80.0-100.0) fL MCH (25.0-35.0) pg MCHC (31.0-37.0) g/dL RDW (11.5-15.5) % Plt Count (150-450) k/uL ABG pH (7.35-7.45) ABG HCO3 (21-25) mmol/L ABG Total CO2 (19-24) mmol/L ABG O2 Saturation (94-97) % Sodium (137-145) mmol/L Potassium (3.5-5.1) mmol/L Chloride (98-107) mmol/L Carbon Dioxide (22-30) mmol/L BUN (9-20) mg/dL Glucose (74-99) mg/dL POC Glucose (mg/dL) 275 H (70-110) mg/dL Assessment and Plan Time with Patient: Less than 30
[2024-08-14] MEDS: INSULIN DETEMIR (LEVEMIR) 100 UNIT/ML SYR SQ SCH (20:54)
[2024-08-14 23:56] LABS: Glucose,Whole Blood 271 mg/dL (70-110)
[2024-08-15 04:49] LABS: Anisocytosis Slight; Basophils % (A) 0 %; Eosinophils # (A) 0.1 k/uL (0-0.7); Eosinophils % (A) 1 %; HCT 32.4 % (39.0-53.0); HGB 9.5 gm/dL (13.0-17.5); Hypochromasia Marked; Lymphocytes # (A) 1.3 k/uL (1.0-4.8); Lymphocytes % (A) 18 %; MCH 22.7 pg (25.0-35.0); MCHC 29.3 g/dL (31.0-37.0); MCV 77.7 fL (80.0-100.0); Microcytosis Slight; Monocytes # (A) 0.5 k/uL (0-1.0); Monocytes % (A) 6 %; Neutrophils # (A) 5.2 k/uL (1.3-7.7); Neutrophils % (A) 72 %; Platelet Count 472 k/uL (150-450); RBC 4.17 m/uL (4.30-5.90); RDW 16.8 % (11.5-15.5); WBC 7.2 k/uL (3.8-10.6)
[2024-08-15 05:01] LABS: African American GFR (CKD) >90 (>60 ml/min/1.73 sqM); Anion Gap 7 mmol/L; Blood Urea Nitrogen 38 mg/dL (9-20); Calcium 8.8 mg/dL (8.4-10.2); Carbon Dioxide 36 mmol/L (22-30); Chloride 89 mmol/L (98-107); Glucose 228 mg/dL (74-99); Non-African American GFR(CKD) >90 (>60 ml/min/1.73 sqM); Potassium 3.4 mmol/L (3.5-5.1); Sodium 132 mmol/L (137-145)
[2024-08-15 05:03] LABS: Prothrombin Time 11.5 sec (10.0-12.5)
[2024-08-15 05:45] LABS: ABG Base Excess 6.3 mmol/L; ABG HCO3 31 mmol/L (21-25); ABG Oxygen Saturation 94.3 % (94-97); ABG PCO2 45 mmHg (35-45); ABG PH 7.45 (7.35-7.45); ABG PO2 72 mmHg (83-108); ABG TCO2 32 mmol/L (19-24)
[2024-08-15 05:47] LABS: Allen Test Performed? No
[2024-08-15] MEDS: POTASSIUM BICARBONATE/CIT AC 20 MEQ TABLET.EFF NG-TUBE SCH (05:58)
[2024-08-15 06:04] LABS: Glucose,Whole Blood 252 mg/dL (70-110)
--- NOTE | 2024-08-15 08:35 | XR ---
EXAMINATION TYPE: XR chest 1V portable DATE OF EXAM: 08/15/2024 3:37 AM COMPARISON: None. CLINICAL INDICATION: Male, 63 years old with history of line placement, TECHNIQUE: XR chest 1V portable view(s) obtained. FINDINGS: The heart size is normal. The pulmonary vasculature is normal. Left perihilar infiltrate is present. Correlate for atelectasis or developing pneumonia. Left pleura l effusion may be present. Left costophrenic angle [id number] Endotracheal tube tip is 1.7 cm above the damian. Nasogastric tube transverses the thorax. IMPRESSION: 1. Left perihilar infiltrate. Correlate for atelectasis and pneumonia. Follow-up is recommended. 2. Small left pleural effusion may be present [facility], , 08/15/2024 8:33 AM
--- NOTE | 2024-08-15 09:36 | P.PN ---
Subjective Progress Note Date: 08/15/24 HPI: This is a 63-year-old gentleman with history of morbid obesity Petit permanent atrial fibrillation CVA a resident of [place] came in after being unresponsive has been intubated. He was diagnosed with COVID infection he is currently on a ventilator he has a permanent atrial fibrillation rate is fairly well-controlled he is in the 70s at this time he is not on any beta- blockers. His partners to cardiac cath more than 10 years ago did not reveal any significant obstructive disease. He is currently not on beta-blockers but rate control is acceptable no significant bradycardia. I would recommend a thyroid blood test.. PHYSICIAL EXAM: Vitals are stable he is in atrial fibrillation rate is controlled S1-S2 heard normally irregularity and rhythm noted no significant murmurs lungs reveal ventilator assisted breath sounds abdomen is soft the lower extremities reveal bilateral mild to moderate edema. Central nervous system assessment not performed. IMPRESSION: 1. Permanent atrial fibrillation with probable underlying sick sinus syndrome. No significant bradycardia. 2. History of obstructive sleep apnea currently in respiratory failure intubated on a ventilator. 3. Previous CVA. 4. History of morbid obesity with diastolic heart failure. 5.. RECOMMENDATIONS: I would recommend that we continue current supportive care. No new suggestions from a cardiac standpoint. I will check a free T4 and TSH. No beta-blockers at this time. Prognosis remains guarded. Objective - Vital Signs Vital signs: Vital Signs Temp 98.3 F 08/15/24 04:00 Pulse 64 08/15/24 07:00 Resp 11 L 08/15/24 07:00 BP 122/75 08/15/24 07:00 Pulse Ox 89 L 08/15/24 07:00 FiO2 50 08/15/24 08:27 Intake & Output 08/14/24 08/15/24 08/15/24 18:59 06:59 18:59 Intake Total 9750.561 6684.972 118 Output Total 4300 3700 125 Balance -2709.417 -2459.028 -7 Weight 204.57 kg Intake: IV 499 133 3 .9NS KVO 60 Magnesium Sulfate-D5w Pmx 100 1 gm In Dextrose/Water 1 100ml.bag @ 100 mls/hr IVPB ONCE ONE Rx#: [id number] Piperacillin-Tazobactam 3 100 .375 gm In Sodium Chloride 0.9% 100 ml @ 25 mls/hr IVPB Q8HR [facility] Rx# :[id number] Potassium Chloride 20 meq 100 In Water For Injection 1 100ml.bag @ 50 mls/hr IVPB ONCE [facility] Rx#: [id number] Potassium Chloride 20 meq 200 In Water For Injection 1 100ml.bag @ 50 mls/hr IVPB Q2H [facility] Rx#: [id number] Pressure Bag 39 33 3 Intake, IV Titration 286.583 352.972 Amount propofoL 1,000 mg In 286.583 352.972 Empty Bag 1 bag @ 20 MCG/ KG/MIN 25.855 mls/hr IV . Q3H53M [facility] Rx#:[id number] Tube Feeding 715 605 55 Other 90 150 60 Output: Urine 4300 3700 125 Other: Voiding Method Indwelling Catheter Indwelling Catheter # Bowel Movements 0 1 ABP, PAP, CO, CI - Last Documented Arterial Blood Pressure 100/64 - Labs CBC & Chem 7: 08/15/24 04:27 08/15/24 04:27 Labs: Abnormal Lab Results - Last 24 Hours (Table) 08/14/24 08/14/24 08/14/24 Range/Units 11:21 17:43 23:54 RBC (4.30-5.90) m/uL Hgb (13.0-17.5) gm/dL Hct (39.0-53.0) % MCV (80.0-100.0) fL MCH (25.0-35.0) pg MCHC (31.0-37.0) g/dL RDW (11.5-15.5) % Plt Count (150-450) k/uL ABG pO2 (83-108) mmHg ABG HCO3 (21-25) mmol/L ABG Total CO2 (19-24) mmol/L Hemoglobin (13.0-17.5) gm/dL Sodium (137-145) mmol/L Potassium (3.5-5.1) mmol/L Chloride (98-107) mmol/L Carbon Dioxide (22-30) mmol/L BUN (9-20) mg/dL Glucose (74-99) mg/dL POC Glucose (mg/dL) 228 H 275 H 271 H (70-110) mg/dL 08/15/24 08/15/24 08/15/24 Range/Units 04:27 04:27 05:44 RBC 4.17 L (4.30-5.90) m/uL Hgb 9.5 L (13.0-17.5) gm/dL Hct 32.4 L (39.0-53.0) % MCV 77.7 L (80.0-100.0) fL MCH 22.7 L (25.0-35.0) pg MCHC 29.3 L (31.0-37.0) g/dL RDW 16.8 H (11.5-15.5) % Plt Count 472 H (150-450) k/uL ABG pO2 72 L (83-108) mmHg ABG HCO3 31 H (21-25) mmol/L ABG Total CO2 32 H (19-24) mmol/L Hemoglobin 9.2 L (13.0-17.5) gm/dL Sodium 132 L (137-145) mmol/L Potassium 3.4 L (3.5-5.1) mmol/L Chloride 89 L (98-107) mmol/L Carbon Dioxide 36 H (22-30) mmol/L BUN 38 H (9-20) mg/dL Glucose 228 H (74-99) mg/dL POC Glucose (mg/dL) (70-110) mg/dL 08/15/24 Range/Units 06:02 RBC (4.30-5.90) m/uL Hgb (13.0-17.5) gm/dL Hct (39.0-53.0) % MCV (80.0-100.0) fL MCH (25.0-35.0) pg MCHC (31.0-37.0) g/dL RDW (11.5-15.5) % Plt Count (150-450) k/uL ABG pO2 (83-108) mmHg ABG HCO3 (21-25) mmol/L ABG Total CO2 (19-24) mmol/L Hemoglobin (13.0-17.5) gm/dL Sodium (137-145) mmol/L Potassium (3.5-5.1) mmol/L Chloride (98-107) mmol/L Carbon Dioxide (22-30) mmol/L BUN (9-20) mg/dL Glucose (74-99) mg/dL POC Glucose (mg/dL) 252 H (70-110) mg/dL
[2024-08-15 12:01] LABS: Glucose,Whole Blood 271 mg/dL (70-110)
[2024-08-15] MEDS: fentaNYL (PF) 50 MCG/ML 2 ML AMP IVP PRN (12:36)
--- NOTE | 2024-08-15 12:44 | P.PN ---
Subjective Progress Note Date: 08/15/24 Principal diagnosis: Acute hypoxic respiratory failure, multifactorial On 08/08/2024, the patient is being seen in follow-up in the intensive care unit. This is a morbidly obese 63-year-old male patient who is currently intubated on the mechanical ventilator. Initially presented to us on 08/05/2024 for respiratory distress and the patient became unresponsive. He is known to have morbid obesity, COPD, chronic A-fib, CVA, hypertension hyperlipidemia. He resides in a [facility] and the patient was found to be unresponsive and not breathing properly. His pulse ox was also very low and the patient was hypotensive and minimally responsive. He came into the emergency department where he was intubated and placed on the mechanical ventilator. Since admission, the patient was found to be COVID-19 positive. He had a follow-up chest x-ray today that shows significant rotation, ET tube is probably 1 cm above the damian and there is evidence of left lower lobe consolidati on/effusion. Noted at the time of admission, he had also a right upper lobe consolidation in addition to left lower lobe consolidation. Sputum samples have been negative as collected on 08/05/2024 and blood cultures been also negative. No significant leukocytosis. The patient is currently on no antibiotics. The patient is on propofol which is running at 30 mcg/kg/min, and is also on fentanyl at 1 mcg/kg/h.. The patient is on assist-control mode of mechanical ventilation at rate of 20, tidal volume of 500, FiO2 of 60 % with a PEEP of 10. Blood gases from today shows a pH of 7.46 with a pCO2 of 51 and pO2 of 69 and this was an FiO2 of 60%. The patient is on lactated Ringer at rate of 75 cc an hour. The patient receiving vital high-protein at rate of 55 cc an hour. He remains in atrial fibrillation with rapid ventricular response. He is off Cardizem drip . He is also on metoprolol 12.5 mg twice a day and anticoagulation with Eliquis 5 mg p.o. twice a day. He is on Levemir insulin 15 units at bedtime. Earlier this morning, the patient noted to have episodic generalized tonic-clonic seizure-like activity. The patient was kept on propofol. He was given Ativan 2 mg IV push x 2 and started on Keppra. CAT scan of the brain is to follow. EEG is to follow. Neurology consultation is to follow. The patient is on lactated Ringer at rate of 75 cc an hour. Norepinephrine was also started this morning and is currently running at 0.03 mcg/kg/min. He is on EN , vital HP at 35 cc/hr On 08/09/2024, the patient is being seen for a follow-up. The patient remains intubated on the mechanical ventilator. This morning, the patient is on propofol which is running at 15 mcg/kg/min. Noted the propofol rate was gradually reduced as of yesterday and the fentanyl has been discontinued. Overnight, the patient continued to have bradycardic events and the heart rate was dropping as low as in the 40s and the rhythm remains atrial fibrillation. The patient was taken off the beta-blockers. The patient this morning is on assist-control mode of mechanical ventilation at rate of 20, tidal volume of 500, FiO2 of 60% with a PEEP of 5. Blood gas showed a pH of 7.51 with a pCO2 of 43 and pO2 of 64. Chest x-ray showing bilateral airspace disease, worse on the right essentially involving the lung bases. The patient is currently on no pressors. The patient remains on vital high-protein at rate of 45 cc an hour. No further seizure activity has been noted. The patient remains on IV Keppra. EEG showed encephalopathy without any seizure activity. Neurology on the case. The patient remains on IV Zosyn. The patient continues to have significant amount of edema in all 4 extremities and the patient remains on IV Lasix 40 mg every 12 hours. Fluid balance is +180 cc over the past 24 hours. Repeat cultures were sent and the results are still pending. The patient remains on anticoagulation with Eliquis regarding chronic atrial fibrillation. Cardizem drip is off. Metoprolol is currently on hold. On 08/10/2024, the patient is being seen for a follow-up. This morning, the patient is on propofol running at 20 mcg/kg/min. Remains deeply sedated. He is morbidly obese and he remains on the mechanical ventilator due to hypoxic/hypercapnic respiratory failure. This morning, he is on assist-control mode with rate of 20, tidal volume of 500, FiO2 is at 80% with a PEEP of 14. pH is 7.47 with a pCO2 of 44 and pO2 of 67. Chest x-ray shows bilateral pleural effusions and an area of dense consolidation in left upper lobe. There are signs of fluid overload as the patient continues to have extensive edema in all 4 extremities. He is on IV Lasix. Fluid balance is -1.5 L over the past 24 hours. The patient remains on IV Zosyn as an empiric antibiotic coverage. No pressors. No seizure activity and the patient remains on IV Keppra. EEG showed no evidence of any ongoing seizure activity. Remains on vital high-protein at rate of 45 cc an hour and the patient is on Levemir insulin 15 units twice a day. Blood work showed a white cell count of 6.8 with a hemoglobin 9.3 and a platelet count of 310. Sodium level is at 137, BUN is 25 with a creatinine of 0.8 and a potassium level is at 3.8. Procalcitonin level is at 0.48. The patient is afebrile. Hemodynamically, he is in low rate atrial fibrillation. Remains on anticoagulation with Eliquis. On 08/11/2024, the patient is being seen for a follow-up. The patient remains on propofol running at 20 mcg/kg/min. Sedation holiday was done today and the patient was arousable and he was able to follow simple commands. Nevertheless, is not ready for weaning with extubation he was placed back on propofol. At the same time, the patient is on assist-control mode of mechanical ventilation at a rate of 20, tidal volume of 500, FiO2 of 100% with a PEEP of 16. Noted his oxygenation got worse overnight and the patient was placed on 100% FiO2. Current pulse ox is 97%. She has been gradually been his FiO2. The blood gases showed a pH of 7.49 with a pCO2 of 51 and pO2 of 76. The patient is currently o n Lasix 40 mg IV every 8 hours and Zaroxolyn 5 mg p.o. twice a day. The net fluid balance is -4.8 L over the past 24 hours. Continues to have evidence of bilateral pleural effusion and extensive pulmonary edema in addition to extensive swelling in the upper and lower extremities bilaterally. He is on Levemir insulin 15 units twice daily. He is on vital high-protein at rate of 45 cc an hour. No seizure activity has been noted. Remains on IV Zosyn. Afebrile. Hemodynamically stable. The white cell count is 6.8 with a hemoglobin 8.7 and a platelet count of 333. The sodium levels at 136, bicarb levels at 34, potassium is at 3.9, BUN is 27 with a creatinine of 0.7. No other significant events overnight. On 08/12/2024, patient remains intubated on mechanical ventilator. The patient is in a significant negative fluid balance and the patient is being diuresed with a combination of Lasix and Zaroxolyn. Fluid balance has been -4 L over the past 24 hours. The patient remains on Lasix 40 mg IV every 8 hours and Zaroxolyn 5 mg p.o. twice a day. The patient's follow-up chest x-ray from today shows improved aeration in the lungs. There is cardiomegaly. There is continued pulmonary edema and bilateral pleural effusions. Tube remains in good location. He is on assist-control mode of mechanical ventilation at rate of 20, tidal volume of 500, FiO2 of 70% with a PEEP of 16. Blood gas showed a pH of 7.54 with pCO2 48 and pO2 of 69. Remains on low rate atrial fibrillation and r ate is controlled. Remains on vital high-protein at rate of 48 cc an hour. The white cell count is at 8 with a hemoglobin 8.9 and platelet count of 418. Sodium is at 135, BUN 33 with a creatinine of 0.6. Bicarbonate level is at 35. Afebrile. No other significant events overnight. Was given a sedation holiday and the patient's mentation was appropriate. Based on that, the patient was placed back on propofol which is running at 15 mcg/kg/min. On 08/13/2024, the patient remains intubated on the mechanical ventilator. Unfortunately, oxygenation remains unchanged despite excellent diuresis that the patient has achieved over the past 48 hours. For now, the patient is still on mechanical ventilator. Sedated with propofol running at 50 mcg/kg/min. He is on assist-control mode with rate of 20, tidal volume of 500, FiO2 of 80% with a PEEP of 16. The blood gas showed a pH of 7.56 with a pCO2 of 46 and pO2 of 101. Fluid balance is -4.8 L over the past 24 hours. The patient is afebrile., Comfortable. Hemodynamically stable on no pressors. White cell count of 9.1 with a hemoglobin 9.8 and a platelet count of 461. BUN 34 with a creatinine of 0.7 and sodium level of 134. Follow-up chest x-ray was done today and it shows left-sided pleural effusion, improvement in the volume status. ET tube remains in good location. The patient remains on anticoagulation with Eliquis regarding a low rate controlled atrial fibrillation. The patient remains on Eliquis 5 mg p.o. twice a day. The patient remains on Levemir insulin 20 units twice daily and sliding scale insulin coverage. The patient remains on empiric antibiotic coverage with IV Zosyn. On 08/14/2024, the patient remains on the mechanical ventilator on propofol running at 50 mcg/kg/min. Remains on Lasix and Zaroxolyn. Fluid balance is - 5.9 L over the past 24 hours and over the past 72 hours, the patient has been at least 19 L negative fluid balance. The ventilator settings are essentially unchanged. The patient remains on assist-control mode on mechanical ventilation at a rate of 20, tidal volume of 500, FiO2 of 70% with a PEEP of 16. Morning blood gas showed a pH of 7.52 with a pCO2 of 44 and pO2 of 86. The patient is on Levemir insulin 25 units twice daily. The patient is on vital high-protein. The patient remains on Levemir insulin for blood sugar control and the patient is currently on 25 units twice a day with adequate blood sugar control. Labs from today show a white cell count of 8, hemoglobin of 9.2 and a platelet count of 474. Sodium levels at 133, K is at 3.3, bicarb is at 40, BUN 34 with a creatinine of 0.9. The patient remains on IV Zosyn. Patient was seen today on 08/15/2024, remains in the ICU, intubated and mechanically ventilated, on assist-control rate of 20 tidal volume 500 FiO2 50% PEEP of 12 his ABG is marginal with a pO2 of 72 pCO2 of 45 pH of 7.45, hence no plans to lower down the PEEP from 12 although it was 16 yesterday. Patient remains on propofol 25 mcg/kg/min he is also on vital HP at 55 cc/h cultures have been negative procalcitonin 0.18 patient is arousable, follows simple instructions, however he is not quite ready for weaning. In addition to his m ultiple medical problems, patient has COVID-19 pneumonia, chest x-ray continues to show evidence of bilateral bibasilar and midlung infiltrates, small left pleural effusion is also noted WBC count is 7.2 hemoglobin 9.5 ABG as noted earlier, Basic metabolic profile is normal bicarb is 36 BUN 38 creatinine 0.85 Objective - Vital Signs Vital signs: Vital Signs Temp 97.6 F 08/15/24 08:00 Pulse 101 H 08/15/24 11:00 Resp 36 H 08/15/24 11:00 BP 122/75 08/15/24 07:00 Pulse Ox 97 08/15/24 11:00 FiO2 50 08/15/24 11:31 Intake & Output 08/14/24 08/15/24 08/15/24 18:59 06:59 18:59 Intake Total 8272.067 4108.972 605.992 Output Total 4300 3700 1075 Balance -2709.417 -2459.028 -469.008 Weight 204.57 kg 204.57 kg Intake: IV 499 133 15 .9NS KVO 60 Magnesium Sulfate-D5w Pmx 100 1 gm In Dextrose/Water 1 100ml.bag @ 100 mls/hr IVPB ONCE ONE Rx#: [id number] Piperacillin-Tazobactam 3 100 .375 gm In Sodium Chloride 0.9% 100 ml @ 25 mls/hr IVPB Q8HR [facility] Rx# :[id number] Potassium Chloride 20 meq 100 In Water For Injection 1 100ml.bag @ 50 mls/hr IVPB ONCE [facility] Rx#: [id number] Potassium Chloride 20 meq 200 In Water For Injection 1 100ml.bag @ 50 mls/hr IVPB Q2H [facility] Rx#: [id number] Pressure Bag 39 33 15 Intake, IV Titration 286.583 352.972 170.992 Amount propofoL 1,000 mg In 286.583 352.972 170.992 Empty Bag 1 bag @ 20 MCG/ KG/MIN 25.855 mls/hr IV . Q3H53M [facility] Rx#:[id number] Tube Feeding 715 605 330 Other 90 150 90 Output: Urine 4300 3700 1075 Other: Voiding Method Indwelling Catheter Indwelling Catheter Indwelling Catheter # Bowel Movements 0 1 1 ABP, PAP, CO, CI - Last Documented Arterial Blood Pressure 154/76 - Exam GENERAL: The patient is intubated and sedated. He is morbidly obese, well- developed, elderly appearing, extremely edematous of upper and lower extremities and body habitus, ill-appearing. HEENT: Pupils are round and equally reacting to light. EOMI. No scleral icterus. No conjunctival pallor. Normocephalic, atraumatic. No pharyngeal erythema. No thyromegaly. CARDIOVASCULAR: Irregular irregular rhythm, normal S1-S2 no S3 gallop. PULMONARY: Fine crackles at the at the bases Abdomen, obese soft nontender no MAG no rebound or guarding. MUSCULOSKELETAL: No joint swelling or deformity. EXTREMITIES: No cyanosis, clubbing, continues with significant lower extremity edema bilaterally pitting right lower leg superficial wound with dressing in place changed yesterday NEUROLOGICAL: Patient is sedated, however according to nurses on lower dose of propofol he is noted to be arousable, and follows simple instructions Psychiatric: Could not assess patient is sedated SKIN: No rashes. no petechiae. - Labs CBC & Chem 7: 08/15/24 04:27 08/15/24 04:27 Labs: Abnormal Lab Results - Last 24 Hours (Table) 08/14/24 08/14/24 08/15/24 Range/Units 17:43 23:54 04:27 RBC 4.17 L (4.30-5.90) m/uL Hgb 9.5 L (13.0-17.5) gm/dL Hct 32.4 L (39.0-53.0) % MCV 77.7 L (80.0-100.0) fL MCH 22.7 L (25.0-35.0) pg MCHC 29.3 L (31.0-37.0) g/dL RDW 16.8 H (11.5-15.5) % Plt Count 472 H (150-450) k/uL ABG pO2 (83-108) mmHg ABG HCO3 (21-25) mmol/L ABG Total CO2 (19-24) mmol/L Hemoglobin (13.0-17.5) gm/dL Sodium (137-145) mmol/L Potassium (3.5-5.1) mmol/L Chloride (98-107) mmol/L Carbon Dioxide (22-30) mmol/L BUN (9-20) mg/dL Glucose (74-99) mg/dL POC Glucose (mg/dL) 275 H 271 H (70-110) mg/dL 08/15/24 08/15/24 08/15/24 Range/Units 04:27 05:44 06:02 RBC (4.30-5.90) m/uL Hgb (13.0-17.5) gm/dL Hct (39.0-53.0) % MCV (80.0-100.0) fL MCH (25.0-35.0) pg MCHC (31.0-37.0) g/dL RDW (11.5-15.5) % Plt Count (150-450) k/uL ABG pO2 72 L (83-108) mmHg ABG HCO3 31 H (21-25) mmol/L ABG Total CO2 32 H (19-24) mmol/L Hemoglobin 9.2 L (13.0-17.5) gm/dL Sodium 132 L (137-145) mmol/L Potassium 3.4 L (3.5-5.1) mmol/L Chloride 89 L (98-107) mmol/L Carbon Dioxide 36 H (22-30) mmol/L BUN 38 H (9-20) mg/dL Glucose 228 H (74-99) mg/dL POC Glucose (mg/dL) 252 H (70-110) mg/dL 08/15/24 Range/Units 12:00 RBC (4.30-5.90) m/uL Hgb (13.0-17.5) gm/dL Hct (39.0-53.0) % MCV (80.0-100.0) fL MCH (25.0-35.0) pg MCHC (31.0-37.0) g/dL RDW (11.5-15.5) % Plt Count (150-450) k/uL ABG pO2 (83-108) mmHg ABG HCO3 (21-25) mmol/L ABG Total CO2 (19-24) mmol/L Hemoglobin (13.0-17.5) gm/dL Sodium (137-145) mmol/L Potassium (3.5-5.1) mmol/L Chloride (98-107) mmol/L Carbon Dioxide (22-30) mmol/L BUN (9-20) mg/dL Glucose (74-99) mg/dL POC Glucose (mg/dL) 271 H (70-110) mg/dL Assessment and Plan Assessment: Impression: Acute hypoxic respiratory failure requiring intubation mechanical ventilation, multifactorial Acute COVID-19 pneumonia Acute fluid overload and bilateral pleural effusions most likely secondary to diastolic congestive heart failure Chronic atrial fibrillation Morbid obesity New onset seizure activity, on Keppra History of CVA Benign essential hypertension Obesity hypoventilation syndrome with BMI of 63.9 Obstructive sleep apnea syndrome Congestive heart failure with preserved LV function Type 2 diabetes Iron deficiency anemia History of polysubstance abuse History of right foot diabetic infection with previous incision and drainage in July 04, 2002 3 Recommendation: Continue ventilatory support Continue daily intermittent sedation holidays Continue Decadron Continue empiric Zosyn/antibiotics Continue diuretics including Lasix and Zaroxolyn as well as Diamox for his metabolic alkalosis Continue daily assessment for weaning Continue Keppra Continue Eliquis Continue nutritional support/enteral feeding patient is on vital HP Continue GI and DVT prophylaxis Patient remains critically ill Critical care time is over 30 Time with Patient: Greater than 30
[2024-08-15 13:33] LABS: Potassium 3.6 mmol/L (3.5-5.1)
--- NOTE | 2024-08-15 14:48 | XR ---
EXAMINATION TYPE: XR chest 1V portable DATE OF EXAM: 08/15/2024 2:39 PM COMPARISON: None. CLINICAL INDICATION: Male, 63 years old with history of picc line placement, TECHNIQUE: XR chest 1V portable view(s) obtained. FINDINGS: The heart size is normal. The pulmonary vasculature is normal. Left pleural effusion is likely present with ill-definition of the diaphragm. Endotracheal tube tip is 3 cm above the damian. Nasogastric tube transverses the field of view. PICC line enters on the left with the tip in the distal superior vena cava region. IMPRESSION: 1. Left pleural effusion. 2. Lines and catheters discussed above [facility], , 08/15/2024 2:46 PM
[2024-08-15] MEDS ORDERED: POTASSIUM CHLORIDE ER 20 MEQ TAB.ER PO SCH (15:00)
[2024-08-15] MEDS: POTASSIUM BICARBONATE/CIT AC 20 MEQ TABLET.EFF NG-TUBE ONE (16:06)
[2024-08-15 17:33] LABS: Glucose,Whole Blood 330 mg/dL (70-110)
--- NOTE | 2024-08-15 20:48 | P.PN ---
Subjective Progress Note Date: 08/15/24 Patient in the intensive care unit currently intubated and sedated on the mechanical ventilator. Patient's chest x-ray today does reveal worsening CHF. He is significantly edematous. Remains sedated with IV fentanyl and propofol. He continues on IV Zosyn. Patient was started on enteral feedings today. blood sugars are elevated in the 200s. 08/07/2024 Patient was evaluated in follow-up in the medical floor he is currently intubated and sedated on the mechanical ventilator. Patient had gone into atrial fibrillation with rapid ventricular rate overnight requiring IV Cardizem. He has been since transition to oral metoprolol with heart rate better controlled today. He does have a noted history of atrial fibrillation was resumed on his oral Eliquis yesterday. Patient currently has LR running at 75 mL/h he does remain quite edematous mostly in his lower extremities. Patient was noted to have a small amount of yellow bile emesis there has been no residual with his tube feedings and they are continued at a slow rate today of 10 mL/h. He is febrile today temperature of 100.8. An abdominal x-ray was unable to be completed due to patient's body habitus and he is unable to be transported down for x-ray at this time. 08/08/2024 Patient is seen in follow-up in the ICU and overnight placed on mechanical ventilation as patient was noted to have what appeared to be seizure-like activity with no history of seizures and neurology was consulted. Patient was placed on mechanical ventilation currently with an FiO2 of 60% and PEEP is 10 with pulmonary copyman following. Patient remains with low-grade temps and also started on Keppra and is maintained on antibiotics. Cardiology following as well maintained on oral anticoagulation and has been having heart rates in the 40s. Continued on low-dose metoprolol and will continue to monitor closely. Per nursing staff patient also requiring low-dose Levophed and has been started on 40 of IV Lasix daily due to significant swelling. Will follow-up on repeat labs and continue to monitor closely. 08/09/2024 Patient is seen in follow-up with multiple consultations following including pulmonary, neurology, cardiology, and infectious disease consulted. Patient underwent EEG which was abnormal with no epileptiform discharges noted. Patient is continued on Keppra for now. Heart rates in the low 40s although per nursing staff slightly improved this afternoon and is being monitored closely with cardiology following. Patient is continued on Lasix for diuresis with significant volume overload. Wean pressors as tolerated and follow-up on repeat labs. Patient's blood sugars have been more elevated and possible steroid effect will increase long-acting and also Accu-Cheks before meals and at bedtime as well as sliding scale. Adjust accordingly. 08/10/2024 Patient is seen in follow-up today continues on mechanical ventilation in the ICU with an FiO2 of 80% and PEEP is 14. Undergoing sedation holidays and per nursing staff patient will open his eyes and attempt to track although not moving. Patient continues to be extremely edematous and is diuresing maintained on IV Lasix. Heart rates slightly improved and will continue current regimen per cardiology. No plans on extubation at this time. Per nursing staff patient has not had a bowel movement and is continued on bowel regimen. Abdomen is soft and there is positive bowel sounds noted. Patient continued on tube feeds. Highly recommend aspiration precautions and head of the bed elevated 30 to 45 degrees at all times. 08/12/2024 Patient is seen in follow-up today remains in the ICU with multiple consultations following. PEEP remains high at 16 with an FiO2 of 70% and per nursing staff has been having some desaturations and is being increased to 80% FiO2. Patient is maintained on metolazone along with IV Lasix and potassium borderline daily being replaced will add daily supplementation. Patient is having adequate diuresis and kidney functions are stable. Patient undergoing sedation holidays daily with no plans of weaning and extubation at this time. Patient is afebrile and maintained on IV Decadron along with Zosyn. Continue bowel regimen patient does have positive bowel sounds and is tolerating tube feeds at this time. Recommend aspiration precautions with head of the bed elevated 45 degrees at all times. 08/13/2024 Patient evaluated in the intensive care unit with multiple consultations following. Patient remains on the mechanical ventilator with a PEEP of 16 and FiO2 of 70%. Patient is appropriately arousable during sedation holidays. No plans for extubation at this time. Patient continues on IV Zosyn continues on IV Lasix IV Diamox and continues on oral zaroxolyn. Lower extremities remain significantly edematous. Patient is continued on enteral feedings now at goal running at 55 mL/h. Blood glucose has been elevated in the 200s. Chest x-ray today reveals a left-sided pleural effusion. 08/14/2024 Patient eval today in follow-up in the intensive care unit patient remains on mechanical ventilator, FiO2 down to 50%. Chest x-ray today reveals stable left lower lobe infiltrate and effusion. Patient remains on IV decadron daily. IV lasix 40 mg Q12 hour. Increased urine output over the last 24 hours. Lower extremity edema has mildly improved. Bowels are moving. Patient is tolerating enteral feeding. IV zosyn has been discontinued. WBC 8.3, hgb 9.2, sodium 133, BUN 34, creatinine 0.90, magnesium 1.9. Patient evaluated today in follow up in the ICU. Vent settings were decreased yesterday to 50% FiO2 with a PEEP of 12, patient became increasingly hypoxic. Vent settings increased back up to 70% fio2 and PEEP of 16. Remains on IV decadron daily. Continues on IV lasix 40 mg Q12 hour as well as oral zaroxolyn. Chest xray today shows left perihilar infiltrate and small left pleural effusion. Patient remains on enteral feedings with Vital HP running at goal of 50 mls/hr and tolerating. Blood glucose remains elevated in the 200-300s. Labs revealing white blood cell count 7.2, hgb 9.5, sodium 132, BUN 38, creatinine 0.85. Procal 0.18. TSH 1.780. Unable to complete review of systems as patient is currently intubated and sedated PHYSICAL EXAMINATION: GENERAL: The patient is intubated and sedated. He is morbidly obese, well- developed, elderly appearing, extremely edematous of upper and lower extremities and body habitus, ill-appearing. FiO2 increased at 80% with a PEEP of 16 HEENT: Pupils are round and equally reacting to light. EOMI. No scleral icterus. No conjunctival pallor. Normocephalic, atraumatic. No pharyngeal erythema. No thyromegaly. CARDIOVASCULAR: S1 and S2 muffled, irregular PULMONARY: Diminished breath sounds bilaterally otherwise chest is clear to auscultation, no wheezing , no crackles. ABDOMEN: Soft, obese, nontender, nondistended, normoactive bowel sounds. No palpable organomegaly. Kelly catheter in place MUSCULOSKELETAL: No joint swelling or deformity. EXTREMITIES: No cyanosis, clubbing, continues with significant lower extremity edema bilaterally pitting right lower leg superficial wound with dressing dry and intact NEUROLOGICAL: Not following commands. Unable to completely assess as patient is intubated and maintained on sedation. Patient is undergoing sedation holidays and does open eyes SKIN: No rashes. no petechiae. Assessment: Acute hypoxic respiratory failure requiring intubation on admission, currently on mechanical ventilation, FiO2 is 70% with PEEP of 16. COVID infection and possible pneumonia, concerns for aspiration pneumonia Possible seizure like activity, new onset, EEG was abnormal although not showing any epileptiform discharges, continued on Keppra for now with neurology following Possible acute COPD exacerbation versus obesity hypoventilation syndrome Possible bacterial pneumonia, healthcare associated with right upper lobe and left lower lobe infiltrates Severe sepsis requiring pressor support Acute on chronic diastolic heart failure with preserved EF A-fib and RVR, present on admission now with slow ventricular rate dropping into the 30s. Patient heart rate slightly improving and will continue current regimen per cardiology Right leg wound with recent cultures showing enterococcus faecalis, ESBL and Providencia Rettgeri Diabetes Mellitus type 2, uncontrolled with hyperglycemia Steroid induced hyperglycemia Morbid obesity with a BMI of 64.2 Chronic anemia Lactic acidemia/acidosis, improved GI prophylaxis DVT prophylaxis Full Code Plan: Patient has completed course of antibiotic therapy and remains off zosyn at this time. Mechanical ventilator per copyman. FiO2 at 70% and PEEP of 16 which were increased due today due to hypoxia. No plans for extubation at this time and undergoing sedation holidays. Patient will open eyes and following simple commands. Continue enteral feedings, tube feeds were resumed and tolerating thus far.. Continue with aspiration precautions and head of the bed elevated 45 degrees at all times and monitor closely for residuals Continue bowel regimen and also daily suppositories. Patient does not have history of seizures and was started on Keppra and neur ology following underwent EEG which was abnormal although not showing any epileptiform discharges. No further seizure-like activity noted. Continue cardiac telemetry with cardiology following. Continued on low-dose metoprolol Per pulmonary copyman patient is continued on IV Lasix every 12 hours. And will continue to monitor kidney functions closely. Replace electrolytes per protocol. Daily supplementation of potassium ordered Continue eliquis and monitor for any signs of bleeding. Continue with Accu-Cheks [id number] sliding scale along with long-acting. Levemir increased to 40 units SQ BID and novolog scale adjusted to high dose continue Q6 hours. Repeat blood work in the AM Overall prognosis is guarded The impression and plan of care has been dictated by Nurse Aster Ro as directed. Dr. Jackie MD I have performed a history and physical examination and medical decision making of this patient, discussed the same with the dictator, and agree with the dict ators assessment and plan as written, documented as a scribe. Based on total visit time, I have performed more than 50% of this visit. Objective - Vital Signs Vital signs: Vital Signs Temp 97.7 F 08/15/24 12:00 Pulse 73 08/15/24 14:00 Resp 20 08/15/24 14:00 BP 122/75 08/15/24 07:00 Pulse Ox 88 L 08/15/24 14:00 FiO2 70 08/15/24 14:00 Intake & Output 08/14/24 08/15/24 08/15/24 18:59 06:59 18:59 Intake Total 6325.410 6017.972 872.878 Output Total 4300 3700 2230 Balance -2709.417 -2459.028 -1357.122 Weight 204.57 kg 204.57 kg Intake: IV 499 133 24 .9NS KVO 60 Magnesium Sulfate-D5w Pmx 100 1 gm In Dextrose/Water 1 100ml.bag @ 100 mls/hr IVPB ONCE ONE Rx#: [id number] Piperacillin-Tazobactam 3 100 .375 gm In Sodium Chloride 0.9% 100 ml @ 25 mls/hr IVPB Q8HR [facility] Rx# :[id number] Potassium Chloride 20 meq 100 In Water For Injection 1 100ml.bag @ 50 mls/hr IVPB ONCE STA Rx#: [id number] Potassium Chloride 20 meq 200 In Water For Injection 1 100ml.bag @ 50 mls/hr IVPB Q2H [facility] Rx#: [id number] Pressure Bag 39 33 24 Intake, IV Titration 286.583 352.972 203.878 Amount propofoL 1,000 mg In 286.583 352.972 203.878 Empty Bag 1 bag @ 20 MCG/ KG/MIN 25.855 mls/hr IV . Q3H53M [facility] Rx#:[id number] Tube Feeding 715 605 525 Other 90 150 120 Output: Urine 4300 3700 2230 Other: Voiding Method Indwelling Catheter Indwelling Catheter Indwelling Catheter # Bowel Movements 0 1 1 ABP, PAP, CO, CI - Last Documented Arterial Blood Pressure 121/77 - Labs CBC & Chem 7: 08/15/24 04:27 08/15/24 18:24 Labs: Abnormal Lab Results - Last 24 Hours (Table) 08/14/24 08/14/24 08/15/24 Range/Units 17:43 23:54 04:27 RBC 4.17 L (4.30-5.90) m/uL Hgb 9.5 L (13.0-17.5) gm/dL Hct 32.4 L (39.0-53.0) % MCV 77.7 L (80.0-100.0) fL MCH 22.7 L (25.0-35.0) pg MCHC 29.3 L (31.0-37.0) g/dL RDW 16.8 H (11.5-15.5) % Plt Count 472 H (150-450) k/uL ABG pO2 (83-108) mmHg ABG HCO3 (21-25) mmol/L ABG Total CO2 (19-24) mmol/L Hemoglobin (13.0-17.5) gm/dL Sodium (137-145) mmol/L Potassium (3.5-5.1) mmol/L Chloride (98-107) mmol/L Carbon Dioxide (22-30) mmol/L BUN (9-20) mg/dL Glucose (74-99) mg/dL POC Glucose (mg/dL) 275 H 271 H (70-110) mg/dL 08/15/24 08/15/24 08/15/24 Range/Units 04:27 05:44 06:02 RBC (4.30-5.90) m/uL Hgb (13.0-17.5) gm/dL Hct (39.0-53.0) % MCV (80.0-100.0) fL MCH (25.0-35.0) pg MCHC (31.0-37.0) g/dL RDW (11.5-15.5) % Plt Count (150-450) k/uL ABG pO2 72 L (83-108) mmHg ABG HCO3 31 H (21-25) mmol/L ABG Total CO2 32 H (19-24) mmol/L Hemoglobin 9.2 L (13.0-17.5) gm/dL Sodium 132 L (137-145) mmol/L Potassium 3.4 L (3.5-5.1) mmol/L Chloride 89 L (98-107) mmol/L Carbon Dioxide 36 H (22-30) mmol/L BUN 38 H (9-20) mg/dL Glucose 228 H (74-99) mg/dL POC Glucose (mg/dL) 252 H (70-110) mg/dL 08/15/24 Range/Units 12:00 RBC (4.30-5.90) m/uL Hgb (13.0-17.5) gm/dL Hct (39.0-53.0) % MCV (80.0-100.0) fL MCH (25.0-35.0) pg MCHC (31.0-37.0) g/dL RDW (11.5-15.5) % Plt Count (150-450) k/uL ABG pO2 (83-108) mmHg ABG HCO3 (21-25) mmol/L ABG Total CO2 (19-24) mmol/L Hemoglobin (13.0-17.5) gm/dL Sodium (137-145) mmol/L Potassium (3.5-5.1) mmol/L Chloride (98-107) mmol/L Carbon Dioxide (22-30) mmol/L BUN (9-20) mg/dL Glucose (74-99) mg/dL POC Glucose (mg/dL) 271 H (70-110) mg/dL Assessment and Plan Time with Patient: Less than 30
[2024-08-15] MEDS: INSULIN DETEMIR (LEVEMIR) 100 UNIT/ML SYR SQ ONE (21:33)
[2024-08-15 23:57] LABS: Glucose,Whole Blood 275 mg/dL (70-110)
[2024-08-16 04:34] LABS: ABG Base Excess 8.4 mmol/L; ABG HCO3 34 mmol/L (21-25); ABG Oxygen Saturation 94.1 % (94-97); ABG PCO2 52 mmHg (35-45); ABG PH 7.43 (7.35-7.45); ABG PO2 74 mmHg (83-108); ABG TCO2 36 mmol/L (19-24)
[2024-08-16 04:37] LABS: Allen Test Performed? no
[2024-08-16 05:36] LABS: Glucose,Whole Blood 248 mg/dL (70-110)
[2024-08-16 05:46] LABS: Anisocytosis Slight; Basophils % (A) 0 %; Eosinophils # (A) 0.1 k/uL (0-0.7); Eosinophils % (A) 1 %; HCT 33.5 % (39.0-53.0); HGB 9.9 gm/dL (13.0-17.5); Hypochromasia Marked; Lymphocytes # (A) 1.4 k/uL (1.0-4.8); Lymphocytes % (A) 17 %; MCH 22.7 pg (25.0-35.0); MCHC 29.6 g/dL (31.0-37.0); MCV 76.7 fL (80.0-100.0); Mean Platelet Volume 7.1; Microcytosis Slight; Monocytes # (A) 0.5 k/uL (0-1.0); Monocytes % (A) 6 %; Neutrophils # (A) 6.4 k/uL (1.3-7.7); Neutrophils % (A) 74 %; Platelet Count 521 k/uL (150-450); RBC 4.37 m/uL (4.30-5.90); RDW 16.6 % (11.5-15.5); WBC 8.7 k/uL (3.8-10.6)
[2024-08-16 06:05] LABS: African American GFR (CKD) >90 (>60 ml/min/1.73 sqM); Anion Gap 6 mmol/L; Blood Urea Nitrogen 42 mg/dL (9-20); Calcium 8.9 mg/dL (8.4-10.2); Carbon Dioxide 35 mmol/L (22-30); Chloride 91 mmol/L (98-107); Glucose 224 mg/dL (74-99); Non-African American GFR(CKD) >90 (>60 ml/min/1.73 sqM); Potassium 3.1 mmol/L (3.5-5.1); Sodium 132 mmol/L (137-145)
[2024-08-16] MEDS: INSULIN DETEMIR (LEVEMIR) 100 UNIT/ML SYR SQ SCH (06:20)
--- NOTE | 2024-08-16 07:19 | XR ---
EXAMINATION TYPE: XR chest 1V portable DATE OF EXAM: 08/16/2024 5:16 AM COMPARISON: 08/15/2024 CLINICAL INDICATION: Male, 63 years old with history of line placement; [facility] TECHNIQUE: XR chest 1V portable Frontal view of the chest. FINDINGS: Lungs/Pleura: There is no evidence of pleural effusion, focal consolidation, or pneumothorax. Pulmonary vascularity: Unremarkable. Heart/mediastinum: Cardiomediastinal silhouette is unremarkable. Musculoskeletal: No acute osseous pathology. Other findings: None Lines/Tubes: Endotracheal tube with distal tip 1.4 cm above the damian. Nasogastric tube with its distal tip and side-port projecting under the diaphragm. Left-sided PICC with distal tip at the superior vena cava/brachiocephalic confluence. IMPRESSION: 1. Left PICC in appropriate position. 2. Endotracheal tube in close approximation of the damian consider retraction of 1-2 cm for optimal placement. 3. Haziness the left lung base possibly due to layering pleural effusion. [facility], , 08/16/2024 7:16 AM
--- NOTE | 2024-08-16 09:06 | P.PN ---
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 Cardiac cath more than 10 years ago revealed no obstructive CAD. Plan is to continue current rate control and anticoagulation. No new suggestions from a cardiac standpoint. He has significant pulmonary hypertension chronic hypoxemia with obstructive sleep apnea. He also has diastolic heart failure.. PHYSICIAL EXAM: Vitals are stable he is in atrial fibrillation controlled rate JVD is evident S1-S2 heard normally with irregularity rhythm no significant murmurs lungs reveal a ventilator assisted breath sounds abdomen is soft lower extremities reveal bilateral mild to moderate edema diminished pulses Central nervous system assessment not performed. IMPRESSION: 1. Permanent atrial fibrillation with probable underlying sick sinus syndrome rate control is good no significant bradycardia. 2. History of obstructive sleep apnea with respiratory failure intubated on a ventilator. 3. History of CVA details unknown. 4. Morbid obesity and diastolic heart failure. 5.. RECOMMENDATIONS: Continue current therapy thyroid functions are normal no rate control agents needed continue Eliquis that he is getting. I will see him as needed. Please call if there is any question. HPI: This is a 63-year-old gentleman with history of morbid obesity Petit permanent atrial fibrillation CVA a resident of a assisted came in after being unresponsive has been intubated. He was diagnosed with COVID infection he is currently on a ventilator he has a permanent atrial fibrillation rate is fairly well-controlled he is in the 70s at this time he is not on any beta- blockers. His partners to cardiac cath more than 10 years ago did not reveal any significant obstructive disease. He is currently not on beta-blockers but rate control is acceptable no significant bradycardia. I would recommend a thyroid blood test.. PHYSICIAL EXAM: Vitals are stable he is in atrial fibrillation rate is controlled S1-S2 heard normally irregularity and rhythm noted no significant murmurs lungs reveal ventilator assisted breath sounds abdomen is soft the lower extremities reveal bilateral mild to moderate edema. Central nervous system assessment not performed. IMPRESSION: 1. Permanent atrial fibrillation with probable underlying sick sinus syndrome. No significant bradycardia. 2. History of obstructive sleep apnea currently in respiratory failure intubated on a ventilator. 3. Previous CVA. 4. History of morbid obesity with diastolic heart failure. 5.. RECOMMENDATIONS: I would recommend that we continue current supportive care. No new suggestions from a cardiac standpoint. I will check a free T4 and TSH. No beta-blockers at this time. Prognosis remains guarded. Objective - Vital Signs Vital signs: Vital Signs Temp 98.3 F 08/16/24 04:00 Pulse 81 08/16/24 08:00 Resp 15 08/16/24 08:00 BP 90/56 08/16/24 07:00 Pulse Ox 94 L 08/16/24 08:00 FiO2 70 08/16/24 08:00 Intake & Output 08/15/24 08/16/24 08/16/24 18:59 06:59 18:59 Intake Total 4172.436 5487.893 136 Output Total 3530 3075 375 Balance -2071.614 -1732.107 -239 Weight 204.57 kg 199.853 kg Intake: IV 36 36 6 Pressure Bag 36 36 6 Intake, IV Titration 497.386 566.893 Amount propofoL 1,000 mg In 497.386 566.893 Empty Bag 1 bag @ 20 MCG/ KG/MIN 25.855 mls/hr IV . Q3H53M [facility] Rx#:[id number] Tube Feeding 775 650 100 Other 150 90 30 Output: Urine 3530 3075 375 Other: Voiding Method Indwelling Catheter Indwelling Catheter # Bowel Movements 1 1 1 ABP, PAP, CO, CI - Last Documented Arterial Blood Pressure 136/74 - Labs CBC & Chem 7: 08/16/24 05:36 08/16/24 05:36 Labs: Abnormal Lab Results - Last 24 Hours (Table) 08/15/24 08/15/24 08/15/24 Range/Units 12:00 17:31 23:55 Hgb (13.0-17.5) gm/dL Hct (39.0-53.0) % MCV (80.0-100.0) fL MCH (25.0-35.0) pg MCHC (31.0-37.0) g/dL RDW (11.5-15.5) % Plt Count (150-450) k/uL ABG pCO2 (35-45) mmHg ABG pO2 (83-108) mmHg ABG HCO3 (21-25) mmol/L ABG Total CO2 (19-24) mmol/L Sodium (137-145) mmol/L Potassium (3.5-5.1) mmol/L Chloride (98-107) mmol/L Carbon Dioxide (22-30) mmol/L BUN (9-20) mg/dL Glucose (74-99) mg/dL POC Glucose (mg/dL) 271 H 330 H 275 H (70-110) mg/dL 08/16/24 08/16/24 08/16/24 Range/Units 04:22 05:35 05:36 Hgb 9.9 L (13.0-17.5) gm/dL Hct 33.5 L (39.0-53.0) % MCV 76.7 L (80.0-100.0) fL MCH 22.7 L (25.0-35.0) pg MCHC 29.6 L (31.0-37.0) g/dL RDW 16.6 H (11.5-15.5) % Plt Count 521 H (150-450) k/uL ABG pCO2 52 H (35-45) mmHg ABG pO2 74 L (83-108) mmHg ABG HCO3 34 H (21-25) mmol/L ABG Total CO2 36 H (19-24) mmol/L Sodium (137-145) mmol/L Potassium (3.5-5.1) mmol/L Chloride (98-107) mmol/L Carbon Dioxide (22-30) mmol/L BUN (9-20) mg/dL Glucose (74-99) mg/dL POC Glucose (mg/dL) 248 H (70-110) mg/dL 08/16/24 Range/Units 05:36 Hgb (13.0-17.5) gm/dL Hct (39.0-53.0) % MCV (80.0-100.0) fL MCH (25.0-35.0) pg MCHC (31.0-37.0) g/dL RDW (11.5-15.5) % Plt Count (150-450) k/uL ABG pCO2 (35-45) mmHg ABG pO2 (83-108) mmHg ABG HCO3 (21-25) mmol/L ABG Total CO2 (19-24) mmol/L Sodium 132 L (137-145) mmol/L Potassium 3.1 L (3.5-5.1) mmol/L Chloride 91 L (98-107) mmol/L Carbon Dioxide 35 H (22-30) mmol/L BUN 42 H (9-20) mg/dL Glucose 224 H (74-99) mg/dL POC Glucose (mg/dL) (70-110) mg/dL Microbiology - Last 24 Hours (Table) 08/15/24 15:30 Catheter Tip Culture - Preliminary Catheter Tip
--- NOTE | 2024-08-16 09:09 | P.PN ---
Subjective Progress Note Date: 08/15/24 Principal diagnosis: Reason for follow-up is pneumonia Patient is a 63-year-old male with a past medical history significant for diabetes mellitus hypertension hyperlipidemia atrial fibrillation sleep apnea patient has been brought to the hospital in respiratory distress, patient noted to be at has been reviewed the ICU tested positive for COVID subsequently did have persistent fever and white count concerning for possible aspiration pneumonia prompting this consultation. On today's evaluation that is 08/15/2023, patient has been afebrile, patient is on the ventilator currently requiring 70% FiO2 no significant purulent secretions in the ET or any other changes reported by the nursing staff mention did have 1 loose stools today Patient white count 7.2, creatinine is 0.85 cultures currently pending Objective - Vital Signs Vital signs: Vital Signs Temp 97.7 F 08/15/24 12:00 Pulse 73 08/15/24 14:00 Resp 20 08/15/24 14:00 BP 122/75 08/15/24 07:00 Pulse Ox 88 L 08/15/24 14:00 FiO2 70 08/15/24 14:00 Intake & Output 08/14/24 08/15/24 08/15/24 18:59 06:59 18:59 Intake Total 7766.286 4317.972 872.878 Output Total 4300 3700 2230 Balance -2709.417 -2459.028 -1357.122 Weight 204.57 kg 204.57 kg Intake: IV 499 133 24 .9NS KVO 60 Magnesium Sulfate-D5w Pmx 100 1 gm In Dextrose/Water 1 100ml.bag @ 100 mls/hr IVPB ONCE ONE Rx#: [id number] Piperacillin-Tazobactam 3 100 .375 gm In Sodium Chloride 0.9% 100 ml @ 25 mls/hr IVPB Q8HR [facility] Rx# :[id number] Potassium Chloride 20 meq 100 In Water For Injection 1 100ml.bag @ 50 mls/hr IVPB ONCE STA Rx#: [id number] Potassium Chloride 20 meq 200 In Water For Injection 1 100ml.bag @ 50 mls/hr IVPB Q2H [facility] Rx#: [id number] Pressure Bag 39 33 24 Intake, IV Titration 286.583 352.972 203.878 Amount propofoL 1,000 mg In 286.583 352.972 203.878 Empty Bag 1 bag @ 20 MCG/ KG/MIN 25.855 mls/hr IV . Q3H53M [facility] Rx#:[id number] Tube Feeding 715 605 525 Other 90 150 120 Output: Urine 4300 3700 2230 Other: Voiding Method Indwelling Catheter Indwelling Catheter Indwelling Catheter # Bowel Movements 0 1 1 ABP, PAP, CO, CI - Last Documented Arterial Blood Pressure 121/77 - Exam GENERAL DESCRIPTION: Middle-age man intubated on the vent RESPIRATORY SYSTEM: Unlabored breathing , decreased breath sounds at bases HEART: S1 S2 regular rate and rhythm , ABDOMEN: Soft , mild distention EXTREMITIES: Swelling to the leg no redness - Labs CBC & Chem 7: 08/16/24 05:36 08/16/24 05:36 Labs: Abnormal Lab Results - Last 24 Hours (Table) 08/14/24 08/14/24 08/15/24 Range/Units 17:43 23:54 04:27 RBC 4.17 L (4.30-5.90) m/uL Hgb 9.5 L (13.0-17.5) gm/dL Hct 32.4 L (39.0-53.0) % MCV 77.7 L (80.0-100.0) fL MCH 22.7 L (25.0-35.0) pg MCHC 29.3 L (31.0-37.0) g/dL RDW 16.8 H (11.5-15.5) % Plt Count 472 H (150-450) k/uL ABG pO2 (83-108) mmHg ABG HCO3 (21-25) mmol/L ABG Total CO2 (19-24) mmol/L Hemoglobin (13.0-17.5) gm/dL Sodium (137-145) mmol/L Potassium (3.5-5.1) mmol/L Chloride (98-107) mmol/L Carbon Dioxide (22-30) mmol/L BUN (9-20) mg/dL Glucose (74-99) mg/dL POC Glucose (mg/dL) 275 H 271 H (70-110) mg/dL 08/15/24 08/15/24 08/15/24 Range/Units 04:27 05:44 06:02 RBC (4.30-5.90) m/uL Hgb (13.0-17.5) gm/dL Hct (39.0-53.0) % MCV (80.0-100.0) fL MCH (25.0-35.0) pg MCHC (31.0-37.0) g/dL RDW (11.5-15.5) % Plt Count (150-450) k/uL ABG pO2 72 L (83-108) mmHg ABG HCO3 31 H (21-25) mmol/L ABG Total CO2 32 H (19-24) mmol/L Hemoglobin 9.2 L (13.0-17.5) gm/dL Sodium 132 L (137-145) mmol/L Potassium 3.4 L (3.5-5.1) mmol/L Chloride 89 L (98-107) mmol/L Carbon Dioxide 36 H (22-30) mmol/L BUN 38 H (9-20) mg/dL Glucose 228 H (74-99) mg/dL POC Glucose (mg/dL) 252 H (70-110) mg/dL 08/15/24 Range/Units 12:00 RBC (4.30-5.90) m/uL Hgb (13.0-17.5) gm/dL Hct (39.0-53.0) % MCV (80.0-100.0) fL MCH (25.0-35.0) pg MCHC (31.0-37.0) g/dL RDW (11.5-15.5) % Plt Count (150-450) k/uL ABG pO2 (83-108) mmHg ABG HCO3 (21-25) mmol/L ABG Total CO2 (19-24) mmol/L Hemoglobin (13.0-17.5) gm/dL Sodium (137-145) mmol/L Potassium (3.5-5.1) mmol/L Chloride (98-107) mmol/L Carbon Dioxide (22-30) mmol/L BUN (9-20) mg/dL Glucose (74-99) mg/dL POC Glucose (mg/dL) 271 H (70-110) mg/dL Assessment and Plan (1) Pneumonia Current Visit: Yes Status: Acute Code(s): J18.9 - PNEUMONIA, UNSPECIFIED ORGANISM SNOMED Code(s): 259331218 (2) COVID-19 Current Visit: Yes Status: Acute Code(s): U07.1 - COVID-19 SNOMED Code(s): 340675219 Plan: 1patient presented to hospital about 5 days before initial evaluation in this patient came with acute respiratory failure requiring intubation patient did have features of sepsis as the patient did have fever elevated white count and tachycardia though tested positive for COVID-19 and did have procalcitonin 0.22 on admission and antibiotics not started initially however has been started yesterday and the patient feel better and seem to improving highly concerning for secondary bacterial pneumonia responsible for his fever and elevated white count 2-blood and sputum culture have been negative so far 3-patient did have resolution of his fever and white count has normalized, Zosyn has been discontinued pulmonary as on 08/14/2024 and will monitor the patient closely off antibiotic therapy 4femoral debridement-to be discontinued by the nursing staff and submitted for the culture Dictation was produced using [employer] dictation software. please excuse any grammatical, word or spelling errors. Time with Patient: Less than 30
[2024-08-16] MEDS: CISATRACURIUM 2 MG/ML 5 ML VIAL IV ONE (09:24)
[2024-08-16] MEDS: SODIUM CHLORIDE 0.9% 500 ML 500 ML IV ONE (09:33)
--- NOTE | 2024-08-16 09:38 | XR ---
EXAMINATION TYPE: XR chest 1V portable DATE OF EXAM: 08/16/2024 9:29 AM COMPARISON: 08/16/2024 CLINICAL INDICATION: Male, 63 years old with history of ETT placement, difficulty breathing TECHNIQUE: XR chest 1V portable view(s) obtained. Patient is rotated to the right FINDINGS: The heart size is normal. The pulmonary vasculature is normal. Mild right upper lobe infiltrate is present. There is left lower lobe infiltrate. Endotracheal tube tip is 3.3 cm above the damian. Nasogastric tube transverses the thorax. IMPRESSION: 1. Mild right upper lobe infiltrate. Additional mild infiltrate may be at the left base. 2. Lines and catheters discussed above [facility], , 08/16/2024 9:36 AM
[2024-08-16] MEDS: POTASSIUM BICARBONATE/CIT AC 20 MEQ TABLET.EFF NG-TUBE SCH (09:39)
[2024-08-16] MEDS: metOLazone 5 MG TAB PO SCH (09:41)
[2024-08-16 10:07] LABS: Allen Test Performed? no
[2024-08-16 10:08] LABS: ABG Base Excess 7.6 mmol/L; ABG HCO3 33 mmol/L (21-25); ABG PCO2 52 mmHg (35-45); ABG PH 7.42 (7.35-7.45); ABG PO2 54 mmHg (83-108); ABG TCO2 35 mmol/L (19-24)
[2024-08-16] MEDS: POTASSIUM BICARBONATE/CIT AC 20 MEQ TABLET.EFF PO SCH (10:13)
--- NOTE | 2024-08-16 11:53 | P.GSCN ---
History of Present Illness Consult date: 08/16/24 History of present illness: CHIEF COMPLAINT: Shortness of breath Surgical consult for tracheostomy and PEG tube placement HISTORY OF PRESENT ILLNESS: This is a 63-year-old male who presented with shortness of breath was diagnosed with acute hypoxic respiratory failure, COVID- pneumonia and CHF. Patient has remained in the ICU and is intubated and on mechanical ventilation. Patient is morbidly obese. They have been unable to extubate patient. He is currently at a PEEP of 18. He is on Eliquis for A-fib. Last dose of Eliquis was yesterday. Surgical service has been consulted for tracheostomy and PEG tube placement. PAST MEDICAL HISTORY: Atrial Fibrillation, CVA/TIA, Diabetes Mellitus, GERD/Reflux, Hyperlipidemia, Hypertension, Sleep Apnea/CPAP/BIPAP PAST SURGICAL HISTORY: Gastric sleeve, repair MEDICATIONS: See below ALLERGIES: See below SOCIAL HISTORY: No illicit drug use. REVIEW OF SYSTEMS: Unable to obtain. Patient intubated and sedated PHYSICAL EXAM: VITAL SIGNS: Reviewed GENERAL: Well-developed in no acute distress. HEENT: No sclera icterus. Extraocular movements grossly intact. Moist buccal mucosa. Head is atraumatic, normocephalic. No nasal drainage. ABDOMEN: Soft. Obese. Nondistended. Nontender NEUROLOGIC: Alert and oriented. Cranial nerves II through XII grossly intact. LABORATORY DATA: WBC 8.7 Hgb 9.9 platelets 521 Sodium 132 potassium 3.1 creatinine 0.77 Albumin 3.0 IMAGING: ASSESSMENT: 1. Acute hypoxic respiratory failure unable to wean from vent 2. Severe protein calorie malnutrition PLAN: -Patient scheduled for tracheostomy and PEG tube placement tomorrow with Dr. Chowdhury -Continue to hold Eliquis -Hold tube feeds after midnight Physician Optometry Professor note has been reviewed by physician. Signing provider agrees with the documented findings, assessment, and plan of care. Past Medical History Past Medical History: Atrial Fibrillation, Diabetes Mellitus, GERD/Reflux, Hyperlipidemia, Hypertension, Sleep Apnea/CPAP/BIPAP Additional Past Medical History / Comment(s): diabetic neuropathy, "leaky valve", frequent foot & ankle swelling, USES C-PAP, shortness of breath, unable to walk distances. 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 EGD Past Anesthesia/Blood Transfusion Reactions: No Reported Reaction, Motion Sickness Past Psychological History: Anxiety Smoking Status: Former smoker Past Alcohol Use History: None Reported Additional Past Alcohol Use History / Comment(s): QUIT SMOKING 2004 Past Drug Use History: None Reported Additional Drug Use History / Comment(s): positive for cocaine and benzos on tox screen 07/26/23. - Past Family History Mother Family Medical History: Cancer Additional Family Medical History / Comment(s): Father Family Medical History: Hypertension Additional Family Medical History / Comment(s): Brother(s) Family Medical History: Asthma, COPD, Hypertension Medications and Allergies Home Medications Medication Instructions Recorded Confirmed Type Omeprazole [PriLOSEC] 20 mg PO DAILY 06/27/20 08/05/24 History Cholecalciferol [Vitamin D3 (25 25 mcg PO DAILY 05/25/23 08/05/24 History Mcg = 1000 Iu)] Insulin Lispro [humaLOG Kwikpen] See Protocol SQ ACHS 05/25/23 08/05/24 History Metoprolol Tartrate [Lopressor] 12.5 mg PO BID 05/25/23 08/05/24 History polyethylene glycoL 3350 [Miralax] 17 gm PO DAILY PRN 05/25/23 08/05/24 History Furosemide [Lasix] 40 mg PO DAILY 07/25/23 08/05/24 History Naloxone HCl [Narcan] 4 mg NASAL ONCE PRN 07/25/23 08/05/24 History Gabapentin 800 mg PO Q8H 08/02/23 08/05/24 History Albuterol Nebulized [Ventolin 2.5 mg INHALATION RT-Q6H PRN 07/03/24 08/05/24 History Nebulized] Apixaban [Eliquis] 5 mg PO BID 07/03/24 08/05/24 History Dextrose Chew [Glucose Chew Tab] 12 gm PO DAILY PRN 07/03/24 08/05/24 History Dextrose Gel [Glutose 15 Gel] 15 gm PO DAILY PRN 07/03/24 08/05/24 History Folic Acid 0.8 mg PO HS 07/03/24 08/05/24 History Insulin Glargine,Hum.rec.anlog 20 units SQ DAILY 07/03/24 08/05/24 History [Lantus Solostar Pen] Lactulose 20 gm PO DAILY 07/03/24 08/05/24 History Losartan [Cozaar] 12.5 mg PO DAILY 07/03/24 08/05/24 History Magnesium Oxide [Mag-Ox] 400 mg PO HS 07/03/24 08/05/24 History Naloxone 0.4mg/Ml Injection 0.4 mg IV ONCE PRN 07/03/24 08/05/24 History Tamsulosin [Flomax] 0.4 mg PO DAILY 07/03/24 08/05/24 History Acetaminophen [Tylenol 8 Hour] 650 mg PO Q6H PRN 08/05/24 08/05/24 History Ciprofloxacin HCl [Cipro] 500 mg PO Q12HR 08/05/24 08/05/24 History HYDROcodone/APAP 10-325MG [[place] 1 tab PO Q6HR PRN 08/05/24 08/05/24 History 10-325] Ipratropium-Albuterol Nebulize 3 ml INHALATION RT-Q4H PRN 08/05/24 08/05/24 History [Duoneb 0.5 mg-3 mg/3 ml Soln] L.acidoph,Paracasei, B.lactis 1 cap PO DAILY 08/05/24 08/05/24 History [Probiotic] Allergies Allergy/AdvReac Type Severity Reaction Status Date / Time latex Allergy Rash/Hives Verified 08/05/24 09:11 Surgical - Exam Vital Signs Temp Pulse Resp BP Pulse Ox 98.9 F 112 H 20 114/82 96 08/05/24 06:55 08/05/24 06:55 08/05/24 06:55 08/05/24 06:55 08/05/24 06:55 Results - Labs 08/16/24 05:36 08/16/24 12:55 Abnormal Lab Results - Last 24 Hours (Table) 08/15/24 08/15/24 08/15/24 Range/Units 12:00 17:31 23:55 Hgb (13.0-17.5) gm/dL Hct (39.0-53.0) % MCV (80.0-100.0) fL MCH (25.0-35.0) pg MCHC (31.0-37.0) g/dL RDW (11.5-15.5) % Plt Count (150-450) k/uL ABG pCO2 (35-45) mmHg ABG pO2 (83-108) mmHg ABG HCO3 (21-25) mmol/L ABG Total CO2 (19-24) mmol/L ABG O2 Saturation (94-97) % Sodium (137-145) mmol/L Potassium (3.5-5.1) mmol/L Chloride (98-107) mmol/L Carbon Dioxide (22-30) mmol/L BUN (9-20) mg/dL Glucose (74-99) mg/dL POC Glucose (mg/dL) 271 H 330 H 275 H (70-110) mg/dL 08/16/24 08/16/24 08/16/24 Range/Units 04:22 05:35 05:36 Hgb 9.9 L (13.0-17.5) gm/dL Hct 33.5 L (39.0-53.0) % MCV 76.7 L (80.0-100.0) fL MCH 22.7 L (25.0-35.0) pg MCHC 29.6 L (31.0-37.0) g/dL RDW 16.6 H (11.5-15.5) % Plt Count 521 H (150-450) k/uL ABG pCO2 52 H (35-45) mmHg ABG pO2 74 L (83-108) mmHg ABG HCO3 34 H (21-25) mmol/L ABG Total CO2 36 H (19-24) mmol/L ABG O2 Saturation (94-97) % Sodium (137-145) mmol/L Potassium (3.5-5.1) mmol/L Chloride (98-107) mmol/L Carbon Dioxide (22-30) mmol/L BUN (9-20) mg/dL Glucose (74-99) mg/dL POC Glucose (mg/dL) 248 H (70-110) mg/dL 08/16/24 08/16/24 Range/Units 05:36 09:59 Hgb (13.0-17.5) gm/dL Hct (39.0-53.0) % MCV (80.0-100.0) fL MCH (25.0-35.0) pg MCHC (31.0-37.0) g/dL RDW (11.5-15.5) % Plt Count (150-450) k/uL ABG pCO2 52 H (35-45) mmHg ABG pO2 54 L* (83-108) mmHg ABG HCO3 33 H (21-25) mmol/L ABG Total CO2 35 H (19-24) mmol/L ABG O2 Saturation 85.0 L (94-97) % Sodium 132 L (137-145) mmol/L Potassium 3.1 L (3.5-5.1) mmol/L Chloride 91 L (98-107) mmol/L Carbon Dioxide 35 H (22-30) mmol/L BUN 42 H (9-20) mg/dL Glucose 224 H (74-99) mg/dL POC Glucose (mg/dL) (70-110) mg/dL Microbiology - Last 24 Hours (Table) 08/15/24 15:30 Catheter Tip Culture - Preliminary Catheter Tip Diabetes panel 08/15/24 08/15/24 08/16/24 Range/Units 13:00 18:24 05:36 Sodium 132 L (137-145) mmol/L Potassium 3.6 4.0 3.1 L (3.5-5.1) mmol/L Chloride 91 L (98-107) mmol/L Carbon Dioxide 35 H (22-30) mmol/L BUN 42 H (9-20) mg/dL Creatinine 0.77 (0.66-1.25) mg/dL Glucose 224 H (74-99) mg/dL Calcium 8.9 (8.4-10.2) mg/dL Thyroid panel 08/15/24 Range/Units 13:00 TSH 1.780 (0.465-4.680) mIU/L Calcium panel 08/16/24 Range/Units 05:36 Calcium 8.9 (8.4-10.2) mg/dL Pituitary panel 08/15/24 08/15/24 08/16/24 Range/Units 13:00 18:24 05:36 Sodium 132 L (137-145) mmol/L Potassium 3.6 4.0 3.1 L (3.5-5.1) mmol/L Chloride 91 L (98-107) mmol/L Carbon Dioxide 35 H (22-30) mmol/L BUN 42 H (9-20) mg/dL Creatinine 0.77 (0.66-1.25) mg/dL Glucose 224 H (74-99) mg/dL Calcium 8.9 (8.4-10.2) mg/dL TSH 1.780 (0.465-4.680) mIU/L Adrenal panel 08/15/24 08/15/24 08/16/24 Range/Units 13:00 18:24 05:36 Sodium 132 L (137-145) mmol/L Potassium 3.6 4.0 3.1 L (3.5-5.1) mmol/L Chloride 91 L (98-107) mmol/L Carbon Dioxide 35 H (22-30) mmol/L BUN 42 H (9-20) mg/dL Creatinine 0.77 (0.66-1.25) mg/dL Glucose 224 H (74-99) mg/dL Calcium 8.9 (8.4-10.2) mg/dL
[2024-08-16 12:10] LABS: Glucose,Whole Blood 234 mg/dL (70-110)
--- NOTE | 2024-08-16 12:15 | P.PN ---
Subjective Progress Note Date: 08/16/24 Principal diagnosis: Acute hypoxic respiratory failure, multifactorial On 08/08/2024, the patient is being seen in follow-up in the intensive care unit. This is a morbidly obese 63-year-old male patient who is currently intubated on the mechanical ventilator. Initially presented to us on 08/05/2024 for respiratory distress and the patient became unresponsive. He is known to have morbid obesity, COPD, chronic A-fib, CVA, hypertension hyperlipidemia. He resides in a [facility] and the patient was found to be unresponsive and not breathing properly. His pulse ox was also very low and the patient was hypotensive and minimally responsive. He came into the emergency department where he was intubated and placed on the mechanical ventilator. Since admission, the patient was found to be COVID-19 positive. He had a follow-up chest x-ray today that shows significant rotation, ET tube is probably 1 cm above the damian and there is evidence of left lower lobe consolidati on/effusion. Noted at the time of admission, he had also a right upper lobe consolidation in addition to left lower lobe consolidation. Sputum samples have been negative as collected on 08/05/2024 and blood cultures been also negative. No significant leukocytosis. The patient is currently on no antibiotics. The patient is on propofol which is running at 30 mcg/kg/min, and is also on fentanyl at 1 mcg/kg/h.. The patient is on assist-control mode of mechanical ventilation at rate of 20, tidal volume of 500, FiO2 of 60 % with a PEEP of 10. Blood gases from today shows a pH of 7.46 with a pCO2 of 51 and pO2 of 69 and this was an FiO2 of 60%. The patient is on lactated Ringer at rate of 75 cc an hour. The patient receiving vital high-protein at rate of 55 cc an hour. He remains in atrial fibrillation with rapid ventricular response. He is off Cardizem drip . He is also on metoprolol 12.5 mg twice a day and anticoagulation with Eliquis 5 mg p.o. twice a day. He is on Levemir insulin 15 units at bedtime. Earlier this morning, the patient noted to have episodic generalized tonic-clonic seizure-like activity. The patient was kept on propofol. He was given Ativan 2 mg IV push x 2 and started on Keppra. CAT scan of the brain is to follow. EEG is to follow. Neurology consultation is to follow. The patient is on lactated Ringer at rate of 75 cc an hour. Norepinephrine was also started this morning and is currently running at 0.03 mcg/kg/min. He is on EN , vital HP at 35 cc/hr On 08/09/2024, the patient is being seen for a follow-up. The patient remains intubated on the mechanical ventilator. This morning, the patient is on propofol which is running at 15 mcg/kg/min. Noted the propofol rate was gradually reduced as of yesterday and the fentanyl has been discontinued. Overnight, the patient continued to have bradycardic events and the heart rate was dropping as low as in the 40s and the rhythm remains atrial fibrillation. The patient was taken off the beta-blockers. The patient this morning is on assist-control mode of mechanical ventilation at rate of 20, tidal volume of 500, FiO2 of 60% with a PEEP of 5. Blood gas showed a pH of 7.51 with a pCO2 of 43 and pO2 of 64. Chest x-ray showing bilateral airspace disease, worse on the right essentially involving the lung bases. The patient is currently on no pressors. The patient remains on vital high-protein at rate of 45 cc an hour. No further seizure activity has been noted. The patient remains on IV Keppra. EEG showed encephalopathy without any seizure activity. Neurology on the case. The patient remains on IV Zosyn. The patient continues to have significant amount of edema in all 4 extremities and the patient remains on IV Lasix 40 mg every 12 hours. Fluid balance is +180 cc over the past 24 hours. Repeat cultures were sent and the results are still pending. The patient remains on anticoagulation with Eliquis regarding chronic atrial fibrillation. Cardizem drip is off. Metoprolol is currently on hold. On 08/10/2024, the patient is being seen for a follow-up. This morning, the patient is on propofol running at 20 mcg/kg/min. Remains deeply sedated. He is morbidly obese and he remains on the mechanical ventilator due to hypoxic/hypercapnic respiratory failure. This morning, he is on assist-control mode with rate of 20, tidal volume of 500, FiO2 is at 80% with a PEEP of 14. pH is 7.47 with a pCO2 of 44 and pO2 of 67. Chest x-ray shows bilateral pleural effusions and an area of dense consolidation in left upper lobe. There are signs of fluid overload as the patient continues to have extensive edema in all 4 extremities. He is on IV Lasix. Fluid balance is -1.5 L over the past 24 hours. The patient remains on IV Zosyn as an empiric antibiotic coverage. No pressors. No seizure activity and the patient remains on IV Keppra. EEG showed no evidence of any ongoing seizure activity. Remains on vital high-protein at rate of 45 cc an hour and the patient is on Levemir insulin 15 units twice a day. Blood work showed a white cell count of 6.8 with a hemoglobin 9.3 and a platelet count of 310. Sodium level is at 137, BUN is 25 with a creatinine of 0.8 and a potassium level is at 3.8. Procalcitonin level is at 0.48. The patient is afebrile. Hemodynamically, he is in low rate atrial fibrillation. Remains on anticoagulation with Eliquis. On 08/11/2024, the patient is being seen for a follow-up. The patient remains on propofol running at 20 mcg/kg/min. Sedation holiday was done today and the patient was arousable and he was able to follow simple commands. Nevertheless, is not ready for weaning with extubation he was placed back on propofol. At the same time, the patient is on assist-control mode of mechanical ventilation at a rate of 20, tidal volume of 500, FiO2 of 100% with a PEEP of 16. Noted his oxygenation got worse overnight and the patient was placed on 100% FiO2. Current pulse ox is 97%. She has been gradually been his FiO2. The blood gases showed a pH of 7.49 with a pCO2 of 51 and pO2 of 76. The patient is currently o n Lasix 40 mg IV every 8 hours and Zaroxolyn 5 mg p.o. twice a day. The net fluid balance is -4.8 L over the past 24 hours. Continues to have evidence of bilateral pleural effusion and extensive pulmonary edema in addition to extensive swelling in the upper and lower extremities bilaterally. He is on Levemir insulin 15 units twice daily. He is on vital high-protein at rate of 45 cc an hour. No seizure activity has been noted. Remains on IV Zosyn. Afebrile. Hemodynamically stable. The white cell count is 6.8 with a hemoglobin 8.7 and a platelet count of 333. The sodium levels at 136, bicarb levels at 34, potassium is at 3.9, BUN is 27 with a creatinine of 0.7. No other significant events overnight. On 08/12/2024, patient remains intubated on mechanical ventilator. The patient is in a significant negative fluid balance and the patient is being diuresed with a combination of Lasix and Zaroxolyn. Fluid balance has been -4 L over the past 24 hours. The patient remains on Lasix 40 mg IV every 8 hours and Zaroxolyn 5 mg p.o. twice a day. The patient's follow-up chest x-ray from today shows improved aeration in the lungs. There is cardiomegaly. There is continued pulmonary edema and bilateral pleural effusions. Tube remains in good location. He is on assist-control mode of mechanical ventilation at rate of 20, tidal volume of 500, FiO2 of 70% with a PEEP of 16. Blood gas showed a pH of 7.54 with pCO2 48 and pO2 of 69. Remains on low rate atrial fibrillation and r ate is controlled. Remains on vital high-protein at rate of 48 cc an hour. The white cell count is at 8 with a hemoglobin 8.9 and platelet count of 418. Sodium is at 135, BUN 33 with a creatinine of 0.6. Bicarbonate level is at 35. Afebrile. No other significant events overnight. Was given a sedation holiday and the patient's mentation was appropriate. Based on that, the patient was placed back on propofol which is running at 15 mcg/kg/min. On 08/13/2024, the patient remains intubated on the mechanical ventilator. Unfortunately, oxygenation remains unchanged despite excellent diuresis that the patient has achieved over the past 48 hours. For now, the patient is still on mechanical ventilator. Sedated with propofol running at 50 mcg/kg/min. He is on assist-control mode with rate of 20, tidal volume of 500, FiO2 of 80% with a PEEP of 16. The blood gas showed a pH of 7.56 with a pCO2 of 46 and pO2 of 101. Fluid balance is -4.8 L over the past 24 hours. The patient is afebrile., Comfortable. Hemodynamically stable on no pressors. White cell count of 9.1 with a hemoglobin 9.8 and a platelet count of 461. BUN 34 with a creatinine of 0.7 and sodium level of 134. Follow-up chest x-ray was done today and it shows left-sided pleural effusion, improvement in the volume status. ET tube remains in good location. The patient remains on anticoagulation with Eliquis regarding a low rate controlled atrial fibrillation. The patient remains on Eliquis 5 mg p.o. twice a day. The patient remains on Levemir insulin 20 units twice daily and sliding scale insulin coverage. The patient remains on empiric antibiotic coverage with IV Zosyn. On 08/14/2024, the patient remains on the mechanical ventilator on propofol running at 50 mcg/kg/min. Remains on Lasix and Zaroxolyn. Fluid balance is - 5.9 L over the past 24 hours and over the past 72 hours, the patient has been at least 19 L negative fluid balance. The ventilator settings are essentially unchanged. The patient remains on assist-control mode on mechanical ventilation at a rate of 20, tidal volume of 500, FiO2 of 70% with a PEEP of 16. Morning blood gas showed a pH of 7.52 with a pCO2 of 44 and pO2 of 86. The patient is on Levemir insulin 25 units twice daily. The patient is on vital high-protein. The patient remains on Levemir insulin for blood sugar control and the patient is currently on 25 units twice a day with adequate blood sugar control. Labs from today show a white cell count of 8, hemoglobin of 9.2 and a platelet count of 474. Sodium levels at 133, K is at 3.3, bicarb is at 40, BUN 34 with a creatinine of 0.9. The patient remains on IV Zosyn. Patient was seen today on 08/15/2024, remains in the ICU, intubated and mechanically ventilated, on assist-control rate of 20 tidal volume 500 FiO2 50% PEEP of 12 his ABG is marginal with a pO2 of 72 pCO2 of 45 pH of 7.45, hence no plans to lower down the PEEP from 12 although it was 16 yesterday. Patient remains on propofol 25 mcg/kg/min he is also on vital HP at 55 cc/h cultures have been negative procalcitonin 0.18 patient is arousable, follows simple instructions, however he is not quite ready for weaning. In addition to his m ultiple medical problems, patient has COVID-19 pneumonia, chest x-ray continues to show evidence of bilateral bibasilar and midlung infiltrates, small left pleural effusion is also noted WBC count is 7.2 hemoglobin 9.5 ABG as noted earlier, Basic metabolic profile is normal bicarb is 36 BUN 38 creatinine 0.85 patient was seen today on 08/16/2024, patient remains in the ICU, bated and mechanically ventilated, he is on assist-control rate of 20 tidal volume 500 FiO2 70% PEEP was 12 and increased to 18 as his ABG showed a pO2 of 74 pCO2 52 pH of 7.43 and that was on 70% and PEEP of 12 patient had endotracheal tube changed today done at bedside, and post intubation his O2 saturation remained in the 80s/85%, follow-up ABG showed a pO2 of 54 pCO2 of 52 pH of 7.42 hence the PEEP was increased to 18 and his FiO2 was increased to 100%. Patient had a chest x-ray that showed some interstitial changes and findings of interstitial edema or interstitial infiltrates, Lasix was given at 40 mg IV push. Patient remains on propofol at 45 vital at 50 mL/h, patient had a PICC line placed on 08/15, and today I changed his endotracheal tube because of malfunctioning of his old endotracheal tube and kept popping off and getting disconnected. His Decadron was changed to Solu-Medrol 60 mg IV push every 6 hours, and looking at the overall picture, patient is not showing significant improvement in the last 10 days and I am recommending surgical evaluation for possible tracheostomy, and PEG tube placement, and eventually may require placement in [facility]. WBC count today is 8.7 hemoglobin 9.9 ABG as noted earlier electrolytes showed low potassium of 3.1, BUN of 42 creatinine 0.77 Objective - Vital Signs Vital signs: Vital Signs Temp 98.8 F 08/16/24 08:00 Pulse 75 08/16/24 11:00 Resp 20 08/16/24 11:00 BP 83/62 08/16/24 09:15 Pulse Ox 97 08/16/24 11:00 FiO2 90 08/16/24 11:42 Intake & Output 08/15/24 08/16/24 08/16/24 18:59 06:59 18:59 Intake Total 1640.618 4828.893 645 Output Total 3530 3075 1225 Balance -2071.614 -1732.107 -580 Weight 204.57 kg 199.853 kg Intake: IV 36 36 15 Pressure Bag 36 36 15 Intake, IV Titration 497.386 566.893 300 Amount propofoL 1,000 mg In 497.386 566.893 300 Empty Bag 1 bag @ 20 MCG/ KG/MIN 25.855 mls/hr IV . Q3H53M [facility] Rx#:[id number] Tube Feeding 775 650 300 Other 150 90 30 Output: Urine 3530 3075 1225 Other: Voiding Method Indwelling Catheter Indwelling Catheter Indwelling Catheter # Bowel Movements 1 1 0 ABP, PAP, CO, CI - Last Documented Arterial Blood Pressure 94/63 - Exam GENERAL: The patient is intubated and sedated. HEENT: Pupils are round and equally reacting to light. EOMI. No scleral icterus. No conjunctival pallor. Normocephalic, atraumatic. No pharyngeal erythema. No thyromegaly. CARDIOVASCULAR: Irregular irregular rhythm, normal S1-S2 no S3 gallop. PULMONARY: Crackles and rhonchi noted bilaterally. Good breath sounds noted anteriorly on both sides. Abdomen, obese soft nontender no megaly, no rebound, no guarding. MUSCULOSKELETAL: No joint swelling or deformity. EXTREMITIES: No cyanosis, clubbing, continues with 1+ bipedal edema NEUROLOGICAL: Patient is sedated, considering his marginal oxygenation today, I am continuing propofol, and will not assess patient off propofol as he will desaturate significantly off propofol Psychiatric: Could not assess patient is sedated SKIN: No rashes. no petechiae. - Labs CBC & Chem 7: 08/16/24 05:36 08/16/24 05:36 Labs: Abnormal Lab Results - Last 24 Hours (Table) 08/15/24 08/15/24 08/16/24 Range/Units 17:31 23:55 04:22 Hgb (13.0-17.5) gm/dL Hct (39.0-53.0) % MCV (80.0-100.0) fL MCH (25.0-35.0) pg MCHC (31.0-37.0) g/dL RDW (11.5-15.5) % Plt Count (150-450) k/uL ABG pCO2 52 H (35-45) mmHg ABG pO2 74 L (83-108) mmHg ABG HCO3 34 H (21-25) mmol/L ABG Total CO2 36 H (19-24) mmol/L ABG O2 Saturation (94-97) % Sodium (137-145) mmol/L Potassium (3.5-5.1) mmol/L Chloride (98-107) mmol/L Carbon Dioxide (22-30) mmol/L BUN (9-20) mg/dL Glucose (74-99) mg/dL POC Glucose (mg/dL) 330 H 275 H (70-110) mg/dL 08/16/24 08/16/24 08/16/24 Range/Units 05:35 05:36 05:36 Hgb 9.9 L (13.0-17.5) gm/dL Hct 33.5 L (39.0-53.0) % MCV 76.7 L (80.0-100.0) fL MCH 22.7 L (25.0-35.0) pg MCHC 29.6 L (31.0-37.0) g/dL RDW 16.6 H (11.5-15.5) % Plt Count 521 H (150-450) k/uL ABG pCO2 (35-45) mmHg ABG pO2 (83-108) mmHg ABG HCO3 (21-25) mmol/L ABG Total CO2 (19-24) mmol/L ABG O2 Saturation (94-97) % Sodium 132 L (137-145) mmol/L Potassium 3.1 L (3.5-5.1) mmol/L Chloride 91 L (98-107) mmol/L Carbon Dioxide 35 H (22-30) mmol/L BUN 42 H (9-20) mg/dL Glucose 224 H (74-99) mg/dL POC Glucose (mg/dL) 248 H (70-110) mg/dL 08/16/24 Range/Units 09:59 Hgb (13.0-17.5) gm/dL Hct (39.0-53.0) % MCV (80.0-100.0) fL MCH (25.0-35.0) pg MCHC (31.0-37.0) g/dL RDW (11.5-15.5) % Plt Count (150-450) k/uL ABG pCO2 52 H (35-45) mmHg ABG pO2 54 L* (83-108) mmHg ABG HCO3 33 H (21-25) mmol/L ABG Total CO2 35 H (19-24) mmol/L ABG O2 Saturation 85.0 L (94-97) % Sodium (137-145) mmol/L Potassium (3.5-5.1) mmol/L Chloride (98-107) mmol/L Carbon Dioxide (22-30) mmol/L BUN (9-20) mg/dL Glucose (74-99) mg/dL POC Glucose (mg/dL) (70-110) mg/dL Microbiology - Last 24 Hours (Table) 08/15/24 15:30 Catheter Tip Culture - Preliminary Catheter Tip Assessment and Plan Assessment: Impression: Acute hypoxic respiratory failure requiring intubation mechanical ventilation, multifactorial Acute COVID-19 pneumonia Acute fluid overload and bilateral pleural effusions most likely secondary to diastolic congestive heart failure Chronic atrial fibrillation Morbid obesity New onset seizure activity, on Keppra History of CVA Benign essential hypertension Obesity hypoventilation syndrome with BMI of 63.9 Obstructive sleep apnea syndrome Congestive heart failure with preserved LV function Type 2 diabetes Iron deficiency anemia History of polysubstance abuse History of right foot diabetic infection with previous incision and drainage in July 04, 2002 3 Recommendation: Endotracheal tube change was done today 08/16/2024 Continue ventilatory support Consult general surgery for possible tracheostomy and PEG tube placement as I do not see weaning and extubation anytime soon Off antibiotics since yesterday, will check repeat sputum cultures chest x-ray continues to show bilateral interstitial infiltrates/edema Continue diuretics including Lasix and Zaroxolyn Patient is not ready for any form of weaning considering his ABG on 100% and PEEP of 18 Continue Keppra Continue Eliquis Continue nutritional support/enteral feeding patient is on vital HP Continue GI and DVT prophylaxis Patient remains critically ill Critical care time is over 30, excluding the time spent on procedures Time with Patient: Greater than 30
--- NOTE | 2024-08-16 12:16 | OP ---
OPERATIVE REPORT DATE OF SERVICE : PROCEDURE PERFORMED: Re-intubation/endotracheal tube change. PREOPERATIVE DIAGNOSIS: Nonfunctional endotracheal tube, keeps popping off and disconnecting from mechanical ventilation, and no tight seal on the endotracheal tube. POSTOPERATIVE DIAGNOSIS: Nonfunctional endotracheal tube, keeps popping off and disconnecting from mechanical ventilation, and no tight seal on the endotracheal tube. ANESTHESIA USED: The patient was already on propofol, and after the procedure, he received Nimbex 10 mg IV push for extreme agitation. DESCRIPTION OF PROCEDURE: The patient was placed in the supine position, a tube changer was placed, and a GlideScope was also used to visualize the area around the vocal cords. Suctioning was done of the area around the vocal cords, and over the tube changer, the endotracheal tube was removed, and another size 8 endotracheal tube was placed over the tube changer, advanced and as we passed the vocal cords, the cuff was inflated, the tube was connected to mechanical ventilation after removing the tube changer. Procedure was well tolerated, no complications, chest x-ray showed adequate placement of the endotracheal tube, and no more issues related to the endotracheal tube noted. Again, no complications. The procedure was well tolerated. MMODL / IJN: [id number] /
[2024-08-16] MEDS: methylPREDNISolone SOD SUCCI 125 MG/2 ML VIAL IV SCH (12:43)
--- NOTE | 2024-08-16 15:12 | P.PN ---
Subjective Progress Note Date: 08/16/24 Patient in the intensive care unit currently intubated and sedated on the mechanical ventilator. Patient's chest x-ray today does reveal worsening CHF. He is significantly edematous. Remains sedated with IV fentanyl and propofol. He continues on IV Zosyn. Patient was started on enteral feedings today. blood sugars are elevated in the 200s. 08/07/2024 Patient was evaluated in follow-up in the medical floor he is currently intubated and sedated on the mechanical ventilator. Patient had gone into atrial fibrillation with rapid ventricular rate overnight requiring IV Cardizem. He has been since transition to oral metoprolol with heart rate better controlled today. He does have a noted history of atrial fibrillation was resumed on his oral Eliquis yesterday. Patient currently has LR running at 75 mL/h he does remain quite edematous mostly in his lower extremities. Patient was noted to have a small amount of yellow bile emesis there has been no residual with his tube feedings and they are continued at a slow rate today of 10 mL/h. He is febrile today temperature of 100.8. An abdominal x-ray was unable to be completed due to patient's body habitus and he is unable to be transported down for x-ray at this time. 08/08/2024 Patient is seen in follow-up in the ICU and overnight placed on mechanical ventilation as patient was noted to have what appeared to be seizure-like activity with no history of seizures and neurology was consulted. Patient was placed on mechanical ventilation currently with an FiO2 of 60% and PEEP is 10 with pulmonary brief writer following. Patient remains with low-grade temps and also started on Keppra and is maintained on antibiotics. Cardiology following as well maintained on oral anticoagulation and has been having heart rates in the 40s. Continued on low-dose metoprolol and will continue to monitor closely. Per nursing staff patient also requiring low-dose Levophed and has been started on 40 of IV Lasix daily due to significant swelling. Will follow-up on repeat labs and continue to monitor closely. 08/09/2024 Patient is seen in follow-up with multiple consultations following including pulmonary, neurology, cardiology, and infectious disease consulted. Patient underwent EEG which was abnormal with no epileptiform discharges noted. Patient is continued on Keppra for now. Heart rates in the low 40s although per nursing staff slightly improved this afternoon and is being monitored closely with cardiology following. Patient is continued on Lasix for diuresis with significant volume overload. Wean pressors as tolerated and follow-up on repeat labs. Patient's blood sugars have been more elevated and possible steroid effect will increase long-acting and also Accu-Cheks before meals and at bedtime as well as sliding scale. Adjust accordingly. 08/10/2024 Patient is seen in follow-up today continues on mechanical ventilation in the ICU with an FiO2 of 80% and PEEP is 14. Undergoing sedation holidays and per nursing staff patient will open his eyes and attempt to track although not moving. Patient continues to be extremely edematous and is diuresing maintained on IV Lasix. Heart rates slightly improved and will continue current regimen per cardiology. No plans on extubation at this time. Per nursing staff patient has not had a bowel movement and is continued on bowel regimen. Abdomen is soft and there is positive bowel sounds noted. Patient continued on tube feeds. Highly recommend aspiration precautions and head of the bed elevated 30 to 45 degrees at all times. 08/12/2024 Patient is seen in follow-up today remains in the ICU with multiple consultations following. PEEP remains high at 16 with an FiO2 of 70% and per nursing staff has been having some desaturations and is being increased to 80% FiO2. Patient is maintained on metolazone along with IV Lasix and potassium borderline daily being replaced will add daily supplementation. Patient is having adequate diuresis and kidney functions are stable. Patient undergoing sedation holidays daily with no plans of weaning and extubation at this time. Patient is afebrile and maintained on IV Decadron along with Zosyn. Continue bowel regimen patient does have positive bowel sounds and is tolerating tube feeds at this time. Recommend aspiration precautions with head of the bed elevated 45 degrees at all times. 08/13/2024 Patient evaluated in the intensive care unit with multiple consultations following. Patient remains on the mechanical ventilator with a PEEP of 16 and FiO2 of 70%. Patient is appropriately arousable during sedation holidays. No plans for extubation at this time. Patient continues on IV Zosyn continues on IV Lasix IV Diamox and continues on oral zaroxolyn. Lower extremities remain significantly edematous. Patient is continued on enteral feedings now at goal running at 55 mL/h. Blood glucose has been elevated in the 200s. Chest x-ray today reveals a left-sided pleural effusion. 08/14/2024 Patient eval today in follow-up in the intensive care unit patient remains on mechanical ventilator, FiO2 down to 50%. Chest x-ray today reveals stable left lower lobe infiltrate and effusion. Patient remains on IV decadron daily. IV lasix 40 mg Q12 hour. Increased urine output over the last 24 hours. Lower extremity edema has mildly improved. Bowels are moving. Patient is tolerating enteral feeding. IV zosyn has been discontinued. WBC 8.3, hgb 9.2, sodium 133, BUN 34, creatinine 0.90, magnesium 1.9. Patient evaluated today in follow up in the ICU. Vent settings were decreased yesterday to 50% FiO2 with a PEEP of 12, patient became increasingly hypoxic. Vent settings increased back up to 70% fio2 and PEEP of 16. Remains on IV decadron daily. Continues on IV lasix 40 mg Q12 hour as well as oral zaroxolyn. Chest xray today shows left perihilar infiltrate and small left pleural effusion. Patient remains on enteral feedings with Vital HP running at goal of 50 mls/hr and tolerating. Blood glucose remains elevated in the 200-300s. Labs revealing white blood cell count 7.2, hgb 9.5, sodium 132, BUN 38, creatinine 0.85. Procal 0.18. TSH 1.780. 08/16/2023 Patient evaluated today in the ICU. Remains on mechanical ventilator with PEEP of 70% FiO2 of 16. Chest xray today reveals mild right upper lobe infiltrate. Additional mild infiltrate may be at the left base. General surgery consulted for tracheostomy and PEG tube placement. White blood cell count 8.7, hgb 9.9, sodium 132, potassium 4.5, BUN 42, creatinine 0.77. Unable to complete review of systems as patient is currently intubated and sedated PHYSICAL EXAMINATION: GENERAL: The patient is intubated and sedated. He is morbidly obese, well- developed, elderly appearing, extremely edematous of upper and lower extremities and body habitus, ill-appearing. FiO2 increased at 80% with a PEEP of 16 HEENT: Pupils are round and equally reacting to light. EOMI. No scleral icterus. No conjunctival pallor. Normocephalic, atraumatic. No pharyngeal erythema. No thyromegaly. CARDIOVASCULAR: S1 and S2 muffled, irregular PULMONARY: Diminished breath sounds bilaterally otherwise chest is clear to auscultation, no wheezing , no crackles. ABDOMEN: Soft, obese, nontender, nondistended, normoactive bowel sounds. No palpable organomegaly. Kelly catheter in place MUSCULOSKELETAL: No joint swelling or deformity. EXTREMITIES: No cyanosis, clubbing, continues with significant lower extremity edema bilaterally pitting right lower leg superficial wound with dressing dry and intact NEUROLOGICAL: Not following commands. Unable to completely assess as patient is intubated and maintained on sedation. Patient is undergoing sedation holidays and does open eyes SKIN: No rashes. no petechiae. Assessment: Acute hypoxic respiratory failure requiring intubation on admission, currently on mechanical ventilation, FiO2 is 70% with PEEP of 16. COVID infection and possible pneumonia, concerns for aspiration pneumonia Possible seizure like activity, new onset, EEG was abnormal although not showing any epileptiform discharges, continued on Keppra for now with neurology following Possible acute COPD exacerbation versus obesity hypoventilation syndrome Possible bacterial pneumonia, healthcare associated with right upper lobe and left lower lobe infiltrates Severe sepsis requiring pressor support Acute on chronic diastolic heart failure with preserved EF A-fib and RVR, present on admission now with slow ventricular rate dropping into the 30s. Patient heart rate slightly improving and will continue current regimen per cardiology Right leg wound with recent cultures showing enterococcus faecalis, ESBL and Providencia Rettgeri Diabetes Mellitus type 2, uncontrolled with hyperglycemia Steroid induced hyperglycemia Morbid obesity with a BMI of 64.2 Chronic anemia Lactic acidemia/acidosis, improved GI prophylaxis DVT prophylaxis Full Code Plan: Patient has completed course of antibiotic therapy and remains off zosyn at this time. Mechanical ventilator per brief writer. FiO2 at 70% and PEEP of 16 which were increased due today due to hypoxia. No plans for extubation at this time and undergoing sedation holidays. Patient will open eyes and following simple commands. Continue enteral feedings, tube feeds were resumed and tolerating thus far.. Continue with aspiration precautions and head of the bed elevated 45 degrees at all times and monitor closely for residuals Continue bowel regimen and also daily suppositories. Patient does not have history of seizures and was started on Keppra and neurology following underwent EEG which was abnormal although not showing any epileptiform discharges. No further seizure-like activity noted. Continue cardiac telemetry with cardiology following. Continued on low-dose metoprolol Per pulmonary brief writer patient is continued on IV Lasix every 12 hours. And will continue to monitor kidney functions closely. Replace electrolytes per protocol. Daily supplementation of potassium ordered Continue eliquis and monitor for any signs of bleeding. Continue with Accu-Cheks L9wcano sliding scale along with long-acting. Levemir increased to 40 units SQ BID and novolog scale adjusted to high dose continue Q6 hours. General surgery consulted for trach and peg placement Updated son Sree over the phone and code status addressed remains a full code per family wishes. Repeat blood work in the AM Overall prognosis is guarded The impression and plan of care has been dictated by Susannah Campbell, Nurse Practitioner as directed. Dr. Jackie MD I have performed a history and physical examination and medical decision making of this patient, discussed the same with the dictator, and agree with the dictators assessment and plan as written, documented as a scribe. Based on total visit time, I have performed more than 50% of this visit. Objective - Vital Signs Vital signs: Vital Signs Temp 99.1 F 08/16/24 12:00 Pulse 80 08/16/24 15:00 Resp 20 08/16/24 15:00 BP 93/70 08/16/24 12:00 Pulse Ox 95 08/16/24 15:00 FiO2 70 08/16/24 15:00 Intake & Output 08/15/24 08/16/24 08/16/24 18:59 06:59 18:59 Intake Total 0161.285 4404.893 969.32 Output Total 3530 3075 1800 Balance -2071.614 -1732.107 -830.68 Weight 204.57 kg 199.853 kg Intake: IV 36 36 24 Pressure Bag 36 36 24 Intake, IV Titration 497.386 566.893 385.32 Amount propofoL 1,000 mg In 497.386 566.893 385.32 Empty Bag 1 bag @ 20 MCG/ KG/MIN 25.855 mls/hr IV . Q3H53M [facility] Rx#:[id number] Tube Feeding 775 650 500 Other 150 90 60 Output: Urine 3530 3075 1800 Other: Voiding Method Indwelling Catheter Indwelling Catheter Indwelling Catheter # Bowel Movements 1 1 0 ABP, PAP, CO, CI - Last Documented Arterial Blood Pressure 106/65 - Labs CBC & Chem 7: 08/16/24 05:36 08/16/24 12:55 Labs: Abnormal Lab Results - Last 24 Hours (Table) 08/15/24 08/15/24 08/16/24 Range/Units 17:31 23:55 04:22 Hgb (13.0-17.5) gm/dL Hct (39.0-53.0) % MCV (80.0-100.0) fL MCH (25.0-35.0) pg MCHC (31.0-37.0) g/dL RDW (11.5-15.5) % Plt Count (150-450) k/uL ABG pCO2 52 H (35-45) mmHg ABG pO2 74 L (83-108) mmHg ABG HCO3 34 H (21-25) mmol/L ABG Total CO2 36 H (19-24) mmol/L ABG O2 Saturation (94-97) % Sodium (137-145) mmol/L Potassium (3.5-5.1) mmol/L Chloride (98-107) mmol/L Carbon Dioxide (22-30) mmol/L BUN (9-20) mg/dL Glucose (74-99) mg/dL POC Glucose (mg/dL) 330 H 275 H (70-110) mg/dL 08/16/24 08/16/24 08/16/24 Range/Units 05:35 05:36 05:36 Hgb 9.9 L (13.0-17.5) gm/dL Hct 33.5 L (39.0-53.0) % MCV 76.7 L (80.0-100.0) fL MCH 22.7 L (25.0-35.0) pg MCHC 29.6 L (31.0-37.0) g/dL RDW 16.6 H (11.5-15.5) % Plt Count 521 H (150-450) k/uL ABG pCO2 (35-45) mmHg ABG pO2 (83-108) mmHg ABG HCO3 (21-25) mmol/L ABG Total CO2 (19-24) mmol/L ABG O2 Saturation (94-97) % Sodium 132 L (137-145) mmol/L Potassium 3.1 L (3.5-5.1) mmol/L Chloride 91 L (98-107) mmol/L Carbon Dioxide 35 H (22-30) mmol/L BUN 42 H (9-20) mg/dL Glucose 224 H (74-99) mg/dL POC Glucose (mg/dL) 248 H (70-110) mg/dL 08/16/24 08/16/24 Range/Units 09:59 12:09 Hgb (13.0-17.5) gm/dL Hct (39.0-53.0) % MCV (80.0-100.0) fL MCH (25.0-35.0) pg MCHC (31.0-37.0) g/dL RDW (11.5-15.5) % Plt Count (150-450) k/uL ABG pCO2 52 H (35-45) mmHg ABG pO2 54 L* (83-108) mmHg ABG HCO3 33 H (21-25) mmol/L ABG Total CO2 35 H (19-24) mmol/L ABG O2 Saturation 85.0 L (94-97) % Sodium (137-145) mmol/L Potassium (3.5-5.1) mmol/L Chloride (98-107) mmol/L Carbon Dioxide (22-30) mmol/L BUN (9-20) mg/dL Glucose (74-99) mg/dL POC Glucose (mg/dL) 234 H (70-110) mg/dL Microbiology - Last 24 Hours (Table) 08/15/24 15:30 Catheter Tip Culture - Preliminary Catheter Tip Assessment and Plan Time with Patient: Less than 30
--- NOTE | 2024-08-16 15:27 | P.PN ---
Subjective Progress Note Date: 08/16/24 Dr. Geiger was providing care for the patient from a neurologic perspective last week and I am following up with the patient for the first time. Unable to obtain history from the patient since the patient is intubated on the ventilator and is on IV propofol. Seems the patient has altered mental status and was felt due to hypoxic toxic metabolic encephalopathy as well as he has acute COVID-19 infection. Patient continues to be on IV propofol. Objective - Vital Signs Vital signs: Vital Signs Temp 99.1 F 08/16/24 12:00 Pulse 80 08/16/24 15:00 Resp 20 08/16/24 15:00 BP 93/70 08/16/24 12:00 Pulse Ox 95 08/16/24 15:00 FiO2 70 08/16/24 15:00 Intake & Output 08/15/24 08/16/24 08/16/24 18:59 06:59 18:59 Intake Total 0061.151 2104.893 969.32 Output Total 3530 3075 1800 Balance -2071.614 -1732.107 -830.68 Weight 204.57 kg 199.853 kg Intake: IV 36 36 24 Pressure Bag 36 36 24 Intake, IV Titration 497.386 566.893 385.32 Amount propofoL 1,000 mg In 497.386 566.893 385.32 Empty Bag 1 bag @ 20 MCG/ KG/MIN 25.855 mls/hr IV . Q3H53M [facility] Rx#:[id number] Tube Feeding 775 650 500 Other 150 90 60 Output: Urine 3530 3075 1800 Other: Voiding Method Indwelling Catheter Indwelling Catheter Indwelling Catheter # Bowel Movements 1 1 0 ABP, PAP, CO, CI - Last Documented Arterial Blood Pressure 106/65 - Exam General: Patient is obese gentleman and does not appear in acute distress. Lung: Patient is intubated on the ventilator Neuro: Limited patient is on IV propofol 45mcg/kg/min. Patient is unresponsive. No spontaneous movement. - Labs CBC & Chem 7: 08/16/24 05:36 08/16/24 12:55 Labs: Abnormal Lab Results - Last 24 Hours (Table) 08/15/24 08/15/24 08/16/24 Range/Units 17:31 23:55 04:22 Hgb (13.0-17.5) gm/dL Hct (39.0-53.0) % MCV (80.0-100.0) fL MCH (25.0-35.0) pg MCHC (31.0-37.0) g/dL RDW (11.5-15.5) % Plt Count (150-450) k/uL ABG pCO2 52 H (35-45) mmHg ABG pO2 74 L (83-108) mmHg ABG HCO3 34 H (21-25) mmol/L ABG Total CO2 36 H (19-24) mmol/L ABG O2 Saturation (94-97) % Sodium (137-145) mmol/L Potassium (3.5-5.1) mmol/L Chloride (98-107) mmol/L Carbon Dioxide (22-30) mmol/L BUN (9-20) mg/dL Glucose (74-99) mg/dL POC Glucose (mg/dL) 330 H 275 H (70-110) mg/dL 08/16/24 08/16/24 08/16/24 Range/Units 05:35 05:36 05:36 Hgb 9.9 L (13.0-17.5) gm/dL Hct 33.5 L (39.0-53.0) % MCV 76.7 L (80.0-100.0) fL MCH 22.7 L (25.0-35.0) pg MCHC 29.6 L (31.0-37.0) g/dL RDW 16.6 H (11.5-15.5) % Plt Count 521 H (150-450) k/uL ABG pCO2 (35-45) mmHg ABG pO2 (83-108) mmHg ABG HCO3 (21-25) mmol/L ABG Total CO2 (19-24) mmol/L ABG O2 Saturation (94-97) % Sodium 132 L (137-145) mmol/L Potassium 3.1 L (3.5-5.1) mmol/L Chloride 91 L (98-107) mmol/L Carbon Dioxide 35 H (22-30) mmol/L BUN 42 H (9-20) mg/dL Glucose 224 H (74-99) mg/dL POC Glucose (mg/dL) 248 H (70-110) mg/dL 01/14/25 01/14/25 Range/Units 09:59 12:09 Hgb (13.0-17.5) gm/dL Hct (39.0-53.0) % MCV (80.0-100.0) fL MCH (25.0-35.0) pg MCHC (31.0-37.0) g/dL RDW (11.5-15.5) % Plt Count (150-450) k/uL ABG pCO2 52 H (35-45) mmHg ABG pO2 54 L* (83-108) mmHg ABG HCO3 33 H (21-25) mmol/L ABG Total CO2 35 H (19-24) mmol/L ABG O2 Saturation 85.0 L (94-97) % Sodium (137-145) mmol/L Potassium (3.5-5.1) mmol/L Chloride (98-107) mmol/L Carbon Dioxide (22-30) mmol/L BUN (9-20) mg/dL Glucose (74-99) mg/dL POC Glucose (mg/dL) 234 H (70-110) mg/dL Microbiology - Last 24 Hours (Table) 08/15/24 15:30 Catheter Tip Culture - Preliminary Catheter Tip Assessment and Plan Assessment: * Altered mental status, likely due to hypoxic/toxic metabolic encephalopathy. Patient was found unresponsive at the facility, with saturation of 70%. * Acute COVID-19 pneumonia. Chest x-ray showing bilateral infiltrates. 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 Some sporadic normal appearing background was also seen, which may pertain to better prognosis. However clinical correlation and follow-up EEG strongly recommended. * Is on Keppra down to 750 mg twice daily. I will get a repeat EEG for tomorrow and if no further clonic jerk or any seizure-like activity then we will consider tapering down the Keppra down the line. * Continue Eliquis for atrial fibrillation. * Patient on Zosyn. * Other medical management as per IM and critical care. Time with Patient: Less than 30
[2024-08-16 17:57] LABS: Glucose,Whole Blood 350 mg/dL (70-110)
[2024-08-16 23:41] LABS: Glucose,Whole Blood 313 mg/dL (70-110)
[2024-08-17 04:39] LABS: Anisocytosis Slight; Basophils % (A) 0 %; Eosinophils % (A) 0 %; HCT 32.3 % (39.0-53.0); HGB 9.7 gm/dL (13.0-17.5); Hypochromasia Marked; Lymphocytes # (A) 0.9 k/uL (1.0-4.8); Lymphocytes % (A) 10 %; MCH 22.8 pg (25.0-35.0); MCV 75.8 fL (80.0-100.0); Mean Platelet Volume 7.2; Microcytosis Slight; Monocytes # (A) 0.3 k/uL (0-1.0); Monocytes % (A) 3 %; Neutrophils # (A) 7.4 k/uL (1.3-7.7); Neutrophils % (A) 86 %; Platelet Count 539 k/uL (150-450); RBC 4.26 m/uL (4.30-5.90); RDW 16.5 % (11.5-15.5); WBC 8.6 k/uL (3.8-10.6)
[2024-08-17 04:49] LABS: African American GFR (CKD) >90 (>60 ml/min/1.73 sqM); Anion Gap 9 mmol/L; Blood Urea Nitrogen 47 mg/dL (9-20); Calcium 9.1 mg/dL (8.4-10.2); Carbon Dioxide 34 mmol/L (22-30); Chloride 91 mmol/L (98-107); Glucose 253 mg/dL (74-99); Non-African American GFR(CKD) >90 (>60 ml/min/1.73 sqM); Potassium 3.5 mmol/L (3.5-5.1); Sodium 134 mmol/L (137-145)
[2024-08-17 04:58] LABS: ABG Base Excess 8.9 mmol/L; ABG HCO3 33 mmol/L (21-25); ABG Oxygen Saturation 99.2 % (94-97); ABG PCO2 43 mmHg (35-45); ABG PO2 113 mmHg (83-108); ABG TCO2 34 mmol/L (19-24)
[2024-08-17 04:59] LABS: Allen Test Performed? no
[2024-08-17] MEDS: POTASSIUM BICARBONATE/CIT AC 20 MEQ TABLET.EFF NG-TUBE SCH (05:20)
[2024-08-17 05:26] LABS: Glucose,Whole Blood 241 mg/dL (70-110)
--- NOTE | 2024-08-17 07:38 | P.PN ---
Subjective Progress Note Date: 08/16/24 Principal diagnosis: Reason for follow-up is pneumonia Patient is a 63-year-old male with a past medical history significant for diabetes mellitus hypertension hyperlipidemia atrial fibrillation sleep apnea patient has been brought to the hospital in respiratory distress, patient noted to be at has been reviewed the ICU tested positive for COVID subsequently did have persistent fever and white count concerning for possible aspiration pneumonia prompting this consultation. On today's evaluation that is 08/16/2023, Patient is afebrile this morning patient remains to elevated on the vent FiO2 currently 70% no significant purulent secretion through the ET or in the change reported by the nursing staff femoral central line has been discontinued tube has been sent for the culture. Patient white count is 8.7 creatinine 0.77 catheter cultures currently pending Objective - Vital Signs Vital signs: Vital Signs Temp 98.8 F 08/16/24 20:00 Pulse 71 08/16/24 20:00 Resp 15 08/16/24 20:00 BP 95/66 08/16/24 20:00 Pulse Ox 97 08/16/24 20:00 FiO2 70 08/16/24 20:11 Intake & Output 08/16/24 08/16/24 08/17/24 06:59 18:59 06:59 Intake Total 8516.438 8368.464 50 Output Total 3075 2555 125 Balance -1732.107 -1028.536 -75 Weight 199.853 kg Intake: IV 36 39 Pressure Bag 36 39 Intake, IV Titration 566.893 597.464 Amount propofoL 1,000 mg In 566.893 597.464 Empty Bag 1 bag @ 20 MCG/ KG/MIN 25.855 mls/hr IV . Q3H53M [facility] Rx#:[id number] Tube Feeding 650 800 50 Other 90 90 Output: Urine 3075 2555 125 Other: Voiding Method Indwelling Catheter Indwelling Catheter Indwelling Catheter # Bowel Movements 1 0 2 ABP, PAP, CO, CI - Last Documented Arterial Blood Pressure 124/86 - Exam GENERAL DESCRIPTION: Middle-age man intubated on the vent RESPIRATORY SYSTEM: Unlabored breathing , decreased breath sounds at bases HEART: S1 S2 regular rate and rhythm , ABDOMEN: Soft , mild distention EXTREMITIES: Swelling to the leg no redness - Labs CBC & Chem 7: 08/17/24 04:30 08/17/24 04:30 Labs: Abnormal Lab Results - Last 24 Hours (Table) 08/15/24 08/16/24 08/16/24 Range/Units 23:55 04:22 05:35 Hgb (13.0-17.5) gm/dL Hct (39.0-53.0) % MCV (80.0-100.0) fL MCH (25.0-35.0) pg MCHC (31.0-37.0) g/dL RDW (11.5-15.5) % Plt Count (150-450) k/uL ABG pCO2 52 H (35-45) mmHg ABG pO2 74 L (83-108) mmHg ABG HCO3 34 H (21-25) mmol/L ABG Total CO2 36 H (19-24) mmol/L ABG O2 Saturation (94-97) % Sodium (137-145) mmol/L Potassium (3.5-5.1) mmol/L Chloride (98-107) mmol/L Carbon Dioxide (22-30) mmol/L BUN (9-20) mg/dL Glucose (74-99) mg/dL POC Glucose (mg/dL) 275 H 248 H (70-110) mg/dL 08/16/24 08/16/24 08/16/24 Range/Units 05:36 05:36 09:59 Hgb 9.9 L (13.0-17.5) gm/dL Hct 33.5 L (39.0-53.0) % MCV 76.7 L (80.0-100.0) fL MCH 22.7 L (25.0-35.0) pg MCHC 29.6 L (31.0-37.0) g/dL RDW 16.6 H (11.5-15.5) % Plt Count 521 H (150-450) k/uL ABG pCO2 52 H (35-45) mmHg ABG pO2 54 L* (83-108) mmHg ABG HCO3 33 H (21-25) mmol/L ABG Total CO2 35 H (19-24) mmol/L ABG O2 Saturation 85.0 L (94-97) % Sodium 132 L (137-145) mmol/L Potassium 3.1 L (3.5-5.1) mmol/L Chloride 91 L (98-107) mmol/L Carbon Dioxide 35 H (22-30) mmol/L BUN 42 H (9-20) mg/dL Glucose 224 H (74-99) mg/dL POC Glucose (mg/dL) (70-110) mg/dL 08/16/24 08/16/24 Range/Units 12:09 17:56 Hgb (13.0-17.5) gm/dL Hct (39.0-53.0) % MCV (80.0-100.0) fL MCH (25.0-35.0) pg MCHC (31.0-37.0) g/dL RDW (11.5-15.5) % Plt Count (150-450) k/uL ABG pCO2 (35-45) mmHg ABG pO2 (83-108) mmHg ABG HCO3 (21-25) mmol/L ABG Total CO2 (19-24) mmol/L ABG O2 Saturation (94-97) % Sodium (137-145) mmol/L Potassium (3.5-5.1) mmol/L Chloride (98-107) mmol/L Carbon Dioxide (22-30) mmol/L BUN (9-20) mg/dL Glucose (74-99) mg/dL POC Glucose (mg/dL) 234 H 350 H (70-110) mg/dL Microbiology - Last 24 Hours (Table) 08/15/24 15:30 Catheter Tip Culture - Preliminary Catheter Tip Assessment and Plan (1) Pneumonia Current Visit: Yes Status: Acute Code(s): J18.9 - PNEUMONIA, UNSPECIFIED ORGANISM SNOMED Code(s): 899526447 (2) COVID-19 Current Visit: Yes Status: Acute Code(s): U07.1 - COVID-19 SNOMED Code(s): 630411095 Plan: 1patient presented to hospital about 5 days before initial evaluation in this patient came with acute respiratory failure requiring intubation patient did have features of sepsis as the patient did have fever elevated white count and tachycardia though tested positive for COVID-19 and did have procalcitonin 0.22 on admission and antibiotics not started initially however has been started yesterday and the patient feel better and seem to improving highly concerning for secondary bacterial pneumonia responsible for his fever and elevated white count 2-blood and sputum culture have been negative so far 3-patient did have resolution of his fever and white count has normalized, Zosyn has been discontinued pulmonary as on 08/14/2024 and will monitor the patient closely off antibiotic therapy 4femoral central line has been discontinued catheter tip has been sent for the culture results will be followed Dictation was produced using [email or web address] dictation software. please excuse any grammatical, word or spelling errors. Time with Patient: Less than 30
--- NOTE | 2024-08-17 08:23 | XR ---
EXAMINATION TYPE: XR chest 1V portable DATE OF EXAM: 08/17/2024 5:18 AM COMPARISON: 08/16/2024 CLINICAL INDICATION: Male, 63 years old with history of line placement, TECHNIQUE: XR chest 1V portable view(s) obtained. FINDINGS: The heart size is normal. The pulmonary vasculature is normal. No suspicious focal consolidation is evident. There is some mild increased perihilar markings Endotracheal tube tip is 3.2 cm above the damian. Nasogastric tube transverses the thorax. PICC line enters on the left with the tip in the superior vena cava region IMPRESSION: 1. Mild perihilar increased lung markings, stable from comparison 2. Lines and catheters discussed above [facility], , 08/17/2024 8:20 AM
[2024-08-17] MEDS ORDERED: POTASSIUM BICARBONATE/CIT AC 20 MEQ TABLET.EFF PO SCH (09:00)
--- NOTE | 2024-08-17 09:06 | P.PN ---
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 Cardiac cath more than 10 years ago revealed no obstructive CAD. Plan is to continue current rate control and anticoagulation. No new suggestions from a cardiac standpoint. He has significant pulmonary hypertension chronic hypoxemia with obstructive sleep apnea. He also has diastolic heart failure.. PHYSICIAL EXAM: Vitals are stable he is in atrial fibrillation controlled rate JVD is evident S1-S2 heard normally with irregularity rhythm no significant murmurs lungs reveal a ventilator assisted breath sounds abdomen is soft lower extremities reveal bilateral mild to moderate edema diminished pulses Central nervous system assessment not performed. IMPRESSION: 1. Permanent atrial fibrillation with probable underlying sick sinus syndrome rate control is good no significant bradycardia. 2. History of obstructive sleep apnea with respiratory failure intubated on a ventilator. 3. History of CVA details unknown. 4. Morbid obesity and diastolic heart failure. 5.. RECOMMENDATIONS: Continue current therapy thyroid functions are normal no rate control agents needed continue Eliquis that he is getting. I will see him as needed. Please call if there is any question. August 17, 2024: This morning patient is in atrial fibrillation but the rate is slower between 45 and 60. He is not on any pressors making decent urine but neurologically there is not much activity EEG has been performed and will probably be reviewed. Cardiac doll I have no new suggestions. Prognosis remains poor we will await further input from neurology after review of EEG and advise. His other comorbid conditions include pulmonary hypertension chronic hypoxemia obstructive sleep apnea diastolic heart failure. Prognosis remains poor. PHYSICIAL EXAM: Vitals are stable he is in atrial fibrillation controlled rate JVD is evident S1-S2 heard normally with irregularity rhythm no significant murmurs lungs reveal a ventilator assisted breath sounds abdomen is soft lower extremities reveal bilateral mild to moderate edema diminished pulses Central nervous system assessment not performed. IMPRESSION: 1. Permanent atrial fibrillation with probable underlying sick sinus syndrome rate control is good no significant bradycardia. 2. History of obstructive sleep apnea with respiratory failure intubated on a ventilator. 3. History of CVA details unknown. 4. Morbid obesity and diastolic heart failure. Objective - Vital Signs Vital signs: Vital Signs Temp 98.4 F 08/17/24 07:00 Pulse 46 L 08/17/24 07:00 Resp 20 08/17/24 07:00 BP 109/84 08/17/24 07:00 Pulse Ox 99 08/17/24 07:00 FiO2 60 08/17/24 08:27 Intake & Output 08/16/24 08/17/24 08/17/24 18:59 06:59 18:59 Intake Total 1526.464 431.424 100 Output Total 2555 1775 100 Balance -1028.536 -1343.576 0 Weight 193.956 kg Intake: IV 39 Pressure Bag 39 Intake, IV Titration 597.464 171.424 100 Amount propofoL 1,000 mg In 597.464 171.424 100 Empty Bag 1 bag @ 20 MCG/ KG/MIN 25.855 mls/hr IV . Q3H53M [facility] Rx#:[id number] Tube Feeding 800 250 0 Other 90 10 Output: Urine 2555 1775 100 Other: Voiding Method Indwelling Catheter Indwelling Catheter # Bowel Movements 0 2 ABP, PAP, CO, CI - Last Documented Arterial Blood Pressure 104/66 - Labs CBC & Chem 7: 08/17/24 04:30 08/17/24 04:30 Labs: Abnormal Lab Results - Last 24 Hours (Table) 08/16/24 08/16/24 08/16/24 Range/Units 09:59 12:09 17:56 RBC (4.30-5.90) m/uL Hgb (13.0-17.5) gm/dL Hct (39.0-53.0) % MCV (80.0-100.0) fL MCH (25.0-35.0) pg MCHC (31.0-37.0) g/dL RDW (11.5-15.5) % Plt Count (150-450) k/uL Lymphocytes # (1.0-4.8) k/uL ABG pH (7.35-7.45) ABG pCO2 52 H (35-45) mmHg ABG pO2 54 L* (83-108) mmHg ABG HCO3 33 H (21-25) mmol/L ABG Total CO2 35 H (19-24) mmol/L ABG O2 Saturation 85.0 L (94-97) % Hemoglobin (13.0-17.5) gm/dL Sodium (137-145) mmol/L Chloride (98-107) mmol/L Carbon Dioxide (22-30) mmol/L BUN (9-20) mg/dL Glucose (74-99) mg/dL POC Glucose (mg/dL) 234 H 350 H (70-110) mg/dL 08/16/24 08/17/24 08/17/24 Range/Units 23:39 04:30 04:30 RBC 4.26 L (4.30-5.90) m/uL Hgb 9.7 L (13.0-17.5) gm/dL Hct 32.3 L (39.0-53.0) % MCV 75.8 L (80.0-100.0) fL MCH 22.8 L (25.0-35.0) pg MCHC 30.0 L (31.0-37.0) g/dL RDW 16.5 H (11.5-15.5) % Plt Count 539 H (150-450) k/uL Lymphocytes # 0.9 L (1.0-4.8) k/uL ABG pH (7.35-7.45) ABG pCO2 (35-45) mmHg ABG pO2 (83-108) mmHg ABG HCO3 (21-25) mmol/L ABG Total CO2 (19-24) mmol/L ABG O2 Saturation (94-97) % Hemoglobin (13.0-17.5) gm/dL Sodium 134 L (137-145) mmol/L Chloride 91 L (98-107) mmol/L Carbon Dioxide 34 H (22-30) mmol/L BUN 47 H (9-20) mg/dL Glucose 253 H (74-99) mg/dL POC Glucose (mg/dL) 313 H (70-110) mg/dL 08/17/24 08/17/24 Range/Units 04:44 05:25 RBC (4.30-5.90) m/uL Hgb (13.0-17.5) gm/dL Hct (39.0-53.0) % MCV (80.0-100.0) fL MCH (25.0-35.0) pg MCHC (31.0-37.0) g/dL RDW (11.5-15.5) % Plt Count (150-450) k/uL Lymphocytes # (1.0-4.8) k/uL ABG pH 7.50 H (7.35-7.45) ABG pCO2 (35-45) mmHg ABG pO2 113 H (83-108) mmHg ABG HCO3 33 H (21-25) mmol/L ABG Total CO2 34 H (19-24) mmol/L ABG O2 Saturation 99.2 H (94-97) % Hemoglobin 9.6 L (13.0-17.5) gm/dL Sodium (137-145) mmol/L Chloride (98-107) mmol/L Carbon Dioxide (22-30) mmol/L BUN (9-20) mg/dL Glucose (74-99) mg/dL POC Glucose (mg/dL) 241 H (70-110) mg/dL Microbiology - Last 24 Hours (Table) 08/15/24 15:30 Catheter Tip Culture - Final Catheter Tip
[2024-08-17 12:02] LABS: Glucose,Whole Blood 240 mg/dL (70-110)
--- NOTE | 2024-08-17 13:40 | P.PN ---
Subjective Progress Note Date: 08/17/24 I am following up with the patient the patient continues to be intubated on the ventilator. He is on IV propofol low-dose 15mcg/kg/min the nurse no significant improvement in his neurological condition. Objective - Vital Signs Vital signs: Vital Signs Temp 97.2 F L 08/17/24 12:00 Pulse 54 L 08/17/24 13:00 Resp 20 08/17/24 13:00 BP 109/84 08/17/24 07:00 Pulse Ox 95 08/17/24 13:00 FiO2 50 08/17/24 12:22 Intake & Output 08/16/24 08/17/24 08/17/24 18:59 06:59 18:59 Intake Total 1526.464 431.424 115 Output Total 2555 1775 730 Balance -1028.536 -1343.576 -615 Weight 193.956 kg 193.956 kg Intake: IV 39 15 Pressure Bag 39 15 Intake, IV Titration 597.464 171.424 100 Amount propofoL 1,000 mg In 597.464 171.424 100 Empty Bag 1 bag @ 20 MCG/ KG/MIN 25.855 mls/hr IV . Q3H53M [facility] Rx#:[id number] Tube Feeding 800 250 0 Other 90 10 0 Output: Urine 2555 1775 730 Other: Voiding Method Indwelling Catheter Indwelling Catheter Indwelling Catheter # Bowel Movements 0 2 ABP, PAP, CO, CI - Last Documented Arterial Blood Pressure 126/67 - Exam General: Patient is obese gentleman and does not appear in acute distress. Lung: Patient is intubated on the ventilator Neuro: Limited patient is on IV propofol 15mcg/kg/min. Patient is unresponsive and not following commands. Eyes spontaneously open his eyes and primary gaze was up. The pupils were about 5 mm and reactive to light. With painful stimuli patient had facial grimacing. No facial weakness at baseline. No spontaneous movement. - Labs CBC & Chem 7: 08/17/24 04:30 08/17/24 04:30 Labs: Abnormal Lab Results - Last 24 Hours (Table) 08/16/24 08/16/24 08/17/24 Range/Units 17:56 23:39 04:30 RBC 4.26 L (4.30-5.90) m/uL Hgb 9.7 L (13.0-17.5) gm/dL Hct 32.3 L (39.0-53.0) % MCV 75.8 L (80.0-100.0) fL MCH 22.8 L (25.0-35.0) pg MCHC 30.0 L (31.0-37.0) g/dL RDW 16.5 H (11.5-15.5) % Plt Count 539 H (150-450) k/uL Lymphocytes # 0.9 L (1.0-4.8) k/uL ABG pH (7.35-7.45) ABG pO2 (83-108) mmHg ABG HCO3 (21-25) mmol/L ABG Total CO2 (19-24) mmol/L ABG O2 Saturation (94-97) % Hemoglobin (13.0-17.5) gm/dL Sodium (137-145) mmol/L Chloride (98-107) mmol/L Carbon Dioxide (22-30) mmol/L BUN (9-20) mg/dL Glucose (74-99) mg/dL POC Glucose (mg/dL) 350 H 313 H (70-110) mg/dL 08/17/24 08/17/24 08/17/24 Range/Units 04:30 04:44 05:25 RBC (4.30-5.90) m/uL Hgb (13.0-17.5) gm/dL Hct (39.0-53.0) % MCV (80.0-100.0) fL MCH (25.0-35.0) pg MCHC (31.0-37.0) g/dL RDW (11.5-15.5) % Plt Count (150-450) k/uL Lymphocytes # (1.0-4.8) k/uL ABG pH 7.50 H (7.35-7.45) ABG pO2 113 H (83-108) mmHg ABG HCO3 33 H (21-25) mmol/L ABG Total CO2 34 H (19-24) mmol/L ABG O2 Saturation 99.2 H (94-97) % Hemoglobin 9.6 L (13.0-17.5) gm/dL Sodium 134 L (137-145) mmol/L Chloride 91 L (98-107) mmol/L Carbon Dioxide 34 H (22-30) mmol/L BUN 47 H (9-20) mg/dL Glucose 253 H (74-99) mg/dL POC Glucose (mg/dL) 241 H (70-110) mg/dL 08/17/24 Range/Units 11:59 RBC (4.30-5.90) m/uL Hgb (13.0-17.5) gm/dL Hct (39.0-53.0) % MCV (80.0-100.0) fL MCH (25.0-35.0) pg MCHC (31.0-37.0) g/dL RDW (11.5-15.5) % Plt Count (150-450) k/uL Lymphocytes # (1.0-4.8) k/uL ABG pH (7.35-7.45) ABG pO2 (83-108) mmHg ABG HCO3 (21-25) mmol/L ABG Total CO2 (19-24) mmol/L ABG O2 Saturation (94-97) % Hemoglobin (13.0-17.5) gm/dL Sodium (137-145) mmol/L Chloride (98-107) mmol/L Carbon Dioxide (22-30) mmol/L BUN (9-20) mg/dL Glucose (74-99) mg/dL POC Glucose (mg/dL) 240 H (70-110) mg/dL Microbiology - Last 24 Hours (Table) 08/15/24 15:30 Catheter Tip Culture - Final Catheter Tip Assessment and Plan Assessment: * Altered mental status, likely due to hypoxic/toxic metabolic encephalopathy. Patient was found unresponsive at the facility, with saturation of 70%. * Acute COVID-19 pneumonia. Chest x-ray showing bilateral infiltrates. 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 Some sporadic normal appearing background was also seen, which may pertain to better prognosis. However clinical correlation and follow-up EEG strongly recommended. * Is on Keppra down to 750 mg twice daily. Repeat EEG today and pending official reports and if no further clonic jerk or any seizure-like activity then we will consider tapering down the Keppra down the line. * Continue Eliquis for atrial fibrillation. * Patient on Zosyn. * Other medical management as per IM and critical care. Plan is discussed with her nurse. Time with Patient: Less than 30
--- NOTE | 2024-08-17 14:29 | P.PN ---
Subjective Progress Note Date: 08/17/24 Patient in the intensive care unit currently intubated and sedated on the mechanical ventilator. Patient's chest x-ray today does reveal worsening CHF. He is significantly edematous. Remains sedated with IV fentanyl and propofol. He continues on IV Zosyn. Patient was started on enteral feedings today. blood sugars are elevated in the 200s. 08/07/2024 Patient was evaluated in follow-up in the medical floor he is currently intubated and sedated on the mechanical ventilator. Patient had gone into atrial fibrillation with rapid ventricular rate overnight requiring IV Cardizem. He has been since transition to oral metoprolol with heart rate better controlled today. He does have a noted history of atrial fibrillation was resumed on his oral Eliquis yesterday. Patient currently has LR running at 75 mL/h he does remain quite edematous mostly in his lower extremities. Patient was noted to have a small amount of yellow bile emesis there has been no residual with his tube feedings and they are continued at a slow rate today of 10 mL/h. He is febrile today temperature of 100.8. An abdominal x-ray was unable to be completed due to patient's body habitus and he is unable to be transported down for x-ray at this time. 08/08/2024 Patient is seen in follow-up in the ICU and overnight placed on mechanical ventilation as patient was noted to have what appeared to be seizure-like activity with no history of seizures and neurology was consulted. Patient was placed on mechanical ventilation currently with an FiO2 of 60% and PEEP is 10 with pulmonary location worker following. Patient remains with low-grade temps and also started on Keppra and is maintained on antibiotics. Cardiology following as well maintained on oral anticoagulation and has been having heart rates in the 40s. Continued on low-dose metoprolol and will continue to monitor closely. Per nursing staff patient also requiring low-dose Levophed and has been started on 40 of IV Lasix daily due to significant swelling. Will follow-up on repeat labs and continue to monitor closely. 08/09/2024 Patient is seen in follow-up with multiple consultations following including pulmonary, neurology, cardiology, and infectious disease consulted. Patient underwent EEG which was abnormal with no epileptiform discharges noted. Patient is continued on Keppra for now. Heart rates in the low 40s although per nursing staff slightly improved this afternoon and is being monitored closely with cardiology following. Patient is continued on Lasix for diuresis with significant volume overload. Wean pressors as tolerated and follow-up on repeat labs. Patient's blood sugars have been more elevated and possible steroid effect will increase long-acting and also Accu-Cheks before meals and at bedtime as well as sliding scale. Adjust accordingly. 08/10/2024 Patient is seen in follow-up today continues on mechanical ventilation in the ICU with an FiO2 of 80% and PEEP is 14. Undergoing sedation holidays and per nursing staff patient will open his eyes and attempt to track although not moving. Patient continues to be extremely edematous and is diuresing maintained on IV Lasix. Heart rates slightly improved and will continue current regimen per cardiology. No plans on extubation at this time. Per nursing staff patient has not had a bowel movement and is continued on bowel regimen. Abdomen is soft and there is positive bowel sounds noted. Patient continued on tube feeds. Highly recommend aspiration precautions and head of the bed elevated 30 to 45 degrees at all times. 08/12/2024 Patient is seen in follow-up today remains in the ICU with multiple consultations following. PEEP remains high at 16 with an FiO2 of 70% and per nursing staff has been having some desaturations and is being increased to 80% FiO2. Patient is maintained on metolazone along with IV Lasix and potassium borderline daily being replaced will add daily supplementation. Patient is having adequate diuresis and kidney functions are stable. Patient undergoing sedation holidays daily with no plans of weaning and extubation at this time. Patient is afebrile and maintained on IV Decadron along with Zosyn. Continue bowel regimen patient does have positive bowel sounds and is tolerating tube feeds at this time. Recommend aspiration precautions with head of the bed elevated 45 degrees at all times. 08/13/2024 Patient evaluated in the intensive care unit with multiple consultations following. Patient remains on the mechanical ventilator with a PEEP of 16 and FiO2 of 70%. Patient is appropriately arousable during sedation holidays. No plans for extubation at this time. Patient continues on IV Zosyn continues on IV Lasix IV Diamox and continues on oral zaroxolyn. Lower extremities remain significantly edematous. Patient is continued on enteral feedings now at goal running at 55 mL/h. Blood glucose has been elevated in the 200s. Chest x-ray today reveals a left-sided pleural effusion. 08/14/2024 Patient eval today in follow-up in the intensive care unit patient remains on mechanical ventilator, FiO2 down to 50%. Chest x-ray today reveals stable left lower lobe infiltrate and effusion. Patient remains on IV decadron daily. IV lasix 40 mg Q12 hour. Increased urine output over the last 24 hours. Lower extremity edema has mildly improved. Bowels are moving. Patient is tolerating enteral feeding. IV zosyn has been discontinued. WBC 8.3, hgb 9.2, sodium 133, BUN 34, creatinine 0.90, magnesium 1.9. Patient evaluated today in follow up in the ICU. Vent settings were decreased yesterday to 50% FiO2 with a PEEP of 12, patient became increasingly hypoxic. Vent settings increased back up to 70% fio2 and PEEP of 16. Remains on IV decadron daily. Continues on IV lasix 40 mg Q12 hour as well as oral zaroxolyn. Chest xray today shows left perihilar infiltrate and small left pleural effusion. Patient remains on enteral feedings with Vital HP running at goal of 50 mls/hr and tolerating. Blood glucose remains elevated in the 200-300s. Labs revealing white blood cell count 7.2, hgb 9.5, sodium 132, BUN 38, creatinine 0.85. Procal 0.18. TSH 1.780. 08/16/2023 Patient evaluated today in the ICU. Remains on mechanical ventilator with PEEP of 70% FiO2 of 16. Chest xray today reveals mild right upper lobe infiltrate. Additional mild infiltrate may be at the left base. General surgery consulted for tracheostomy and PEG tube placement. White blood cell count 8.7, hgb 9.9, sodium 132, potassium 4.5, BUN 42, creatinine 0.77. 08/17/2023 Was evaluated today in the intensive care unit. Patient remains on mechanical ventilator with an FiO2 of 60% and PEEP of 18. X-ray today reveals a mild perihilar increased lung markings stable from comparison. Patient catheter tip are currently negative. His white blood blood count is normal at 8.5, hemoglobin 9.7, sodium 134, BUN of 47 and creatinine of 0.75. Is currently on IV Solu-Medrol 60 mg every 6 hours. He is sedated with propofol. He is on IV Keppra. He is currently off antibiotic at this time. Unable to complete review of systems as patient is currently intubated and sedated PHYSICAL EXAMINATION: GENERAL: The patient is intubated and sedated. He is morbidly obese, well- developed, elderly appearing, extremely edematous of upper and lower extremities and body habitus, ill-appearing. FiO2 increased at 80% with a PEEP of 16 HEENT: Pupils are round and equally reacting to light. EOMI. No scleral icterus. No conjunctival pallor. Normocephalic, atraumatic. No pharyngeal erythema. No thyromegaly. CARDIOVASCULAR: S1 and S2 muffled, irregular PULMONARY: Diminished breath sounds bilaterally otherwise chest is clear to auscultation, no wheezing , no crackles. ABDOMEN: Soft, obese, nontender, nondistended, normoactive bowel sounds. No palpable organomegaly. Kelly catheter in place MUSCULOSKELETAL: No joint swelling or deformity. EXTREMITIES: No cyanosis, clubbing, continues with significant lower extremity edema bilaterally pitting right lower leg superficial wound with dressing dry and intact NEUROLOGICAL: Not following commands. Unable to completely assess as patient is intubated and maintained on sedation. Patient is undergoing sedation holidays and does open eyes SKIN: No rashes. no petechiae. Assessment: Acute hypoxic respiratory failure requiring intubation on admission, currently on mechanical ventilation, FiO2 is 60% with PEEP of 18. COVID infection and possible pneumonia, concerns for aspiration pneumonia Possible seizure like activity, new onset, EEG was abnormal although not showing any epileptiform discharges, continued on Keppra for now with neurology following Possible acute COPD exacerbation versus obesity hypoventilation syndrome Possible bacterial pneumonia, healthcare associated with right upper lobe and left lower lobe infiltrates Severe sepsis requiring pressor support Acute on chronic diastolic heart failure with preserved EF A-fib and RVR, present on admission now with slow ventricular rate dropping into the 30s. Patient heart rate slightly improving and will continue current regimen per cardiology Right leg wound with recent cultures showing enterococcus faecalis, ESBL and Providencia Rettgeri Diabetes Mellitus type 2, uncontrolled with hyperglycemia Steroid induced hyperglycemia Morbid obesity with a BMI of 64.2 Chronic anemia Lactic acidemia/acidosis, improved GI prophylaxis DVT prophylaxis Full Code Plan: Patient has completed course of antibiotic therapy and remains off zosyn at this time. Mechanical ventilator per location worker. No plans for extubation at this time and undergoing sedation holidays. Patient will open eyes and following simple commands. Continue enteral feedings, tube feeds were resumed and tolerating thus far.. Continue with aspiration precautions and head of the bed elevated 45 degrees at all times and monitor closely for residuals Continue bowel regimen and also daily suppositories. Patient does not have history of seizures and was started on Keppra and neurology following underwent EEG which was abnormal although not showing any epileptiform discharges. No further seizure-like activity noted. Continue cardiac telemetry with cardiology following. Continued on low-dose metoprolol Per pulmonary location worker patient is continued on IV Lasix every 12 hours. And will continue to monitor kidney functions closely. Replace electrolytes per protocol. Daily supplementation of potassium ordered Continue eliquis and monitor for any signs of bleeding. Continue with Accu-Cheks [id number] sliding scale along with long-acting. Levemir increased to 55 units SQ BID and novolog scale adjusted to high dose continue Q6 hours. General surgery consulted for trach and peg placement Updated son Sree over the phone and code status addressed remains a full code per family wishes. Repeat blood work in the AM Overall prognosis is guarded The impression and plan of care has been dictated by Susannah Campbell, Nurse Practitioner as directed. Dr. Jakcie MD I have performed a history and physical examination and medical decision making of this patient, discussed the same with the dictator, and agree with the dictators assessment and plan as written, documented as a scribe. Based on total visit time, I have performed more than 50% of this visit. Objective - Vital Signs Vital signs: Vital Signs Temp 97.2 F L 08/17/24 12:00 Pulse 54 L 08/17/24 14:00 Resp 20 08/17/24 14:00 BP 109/84 08/17/24 07:00 Pulse Ox 93 L 08/17/24 14:00 FiO2 50 08/17/24 12:22 Intake & Output 08/16/24 08/17/24 08/17/24 18:59 06:59 18:59 Intake Total 1526.464 431.424 221 Output Total 2555 1775 880 Balance -1028.536 -1343.576 -659 Weight 193.956 kg 193.956 kg Intake: IV 39 21 Pressure Bag 39 21 Intake, IV Titration 597.464 171.424 200 Amount propofoL 1,000 mg In 597.464 171.424 200 Empty Bag 1 bag @ 20 MCG/ KG/MIN 25.855 mls/hr IV . Q3H53M [facility] Rx#:[id number] Tube Feeding 800 250 0 Other 90 10 0 Output: Urine 9135 9335 880 Other: Voiding Method Indwelling Catheter Indwelling Catheter Indwelling Catheter # Bowel Movements 0 2 ABP, PAP, CO, CI - Last Documented Arterial Blood Pressure 122/78 - Labs CBC & Chem 7: 08/17/24 04:30 08/17/24 04:30 Labs: Abnormal Lab Results - Last 24 Hours (Table) 08/16/24 08/16/24 08/17/24 Range/Units 17:56 23:39 04:30 RBC 4.26 L (4.30-5.90) m/uL Hgb 9.7 L (13.0-17.5) gm/dL Hct 32.3 L (39.0-53.0) % MCV 75.8 L (80.0-100.0) fL MCH 22.8 L (25.0-35.0) pg MCHC 30.0 L (31.0-37.0) g/dL RDW 16.5 H (11.5-15.5) % Plt Count 539 H (150-450) k/uL Lymphocytes # 0.9 L (1.0-4.8) k/uL ABG pH (7.35-7.45) ABG pO2 (83-108) mmHg ABG HCO3 (21-25) mmol/L ABG Total CO2 (19-24) mmol/L ABG O2 Saturation (94-97) % Hemoglobin (13.0-17.5) gm/dL Sodium (137-145) mmol/L Chloride (98-107) mmol/L Carbon Dioxide (22-30) mmol/L BUN (9-20) mg/dL Glucose (74-99) mg/dL POC Glucose (mg/dL) 350 H 313 H (70-110) mg/dL 08/17/24 08/17/24 08/17/24 Range/Units 04:30 04:44 05:25 RBC (4.30-5.90) m/uL Hgb (13.0-17.5) gm/dL Hct (39.0-53.0) % MCV (80.0-100.0) fL MCH (25.0-35.0) pg MCHC (31.0-37.0) g/dL RDW (11.5-15.5) % Plt Count (150-450) k/uL Lymphocytes # (1.0-4.8) k/uL ABG pH 7.50 H (7.35-7.45) ABG pO2 113 H (83-108) mmHg ABG HCO3 33 H (21-25) mmol/L ABG Total CO2 34 H (19-24) mmol/L ABG O2 Saturation 99.2 H (94-97) % Hemoglobin 9.6 L (13.0-17.5) gm/dL Sodium 134 L (137-145) mmol/L Chloride 91 L (98-107) mmol/L Carbon Dioxide 34 H (22-30) mmol/L BUN 47 H (9-20) mg/dL Glucose 253 H (74-99) mg/dL POC Glucose (mg/dL) 241 H (70-110) mg/dL 08/17/24 Range/Units 11:59 RBC (4.30-5.90) m/uL Hgb (13.0-17.5) gm/dL Hct (39.0-53.0) % MCV (80.0-100.0) fL MCH (25.0-35.0) pg MCHC (31.0-37.0) g/dL RDW (11.5-15.5) % Plt Count (150-450) k/uL Lymphocytes # (1.0-4.8) k/uL ABG pH (7.35-7.45) ABG pO2 (83-108) mmHg ABG HCO3 (21-25) mmol/L ABG Total CO2 (19-24) mmol/L ABG O2 Saturation (94-97) % Hemoglobin (13.0-17.5) gm/dL Sodium (137-145) mmol/L Chloride (98-107) mmol/L Carbon Dioxide (22-30) mmol/L BUN (9-20) mg/dL Glucose (74-99) mg/dL POC Glucose (mg/dL) 240 H (70-110) mg/dL Microbiology - Last 24 Hours (Table) 08/15/24 15:30 Catheter Tip Culture - Final Catheter Tip Assessment and Plan Time with Patient: Less than 30
--- NOTE | 2024-08-17 14:37 | P.PN ---
Subjective Progress Note Date: 08/17/24 Principal diagnosis: Acute hypoxic respiratory failure, multifactorial On 08/08/2024, the patient is being seen in follow-up in the intensive care unit. This is a morbidly obese 63-year-old male patient who is currently intubated on the mechanical ventilator. Initially presented to us on 08/05/2024 for respiratory distress and the patient became unresponsive. He is known to have morbid obesity, COPD, chronic A-fib, CVA, hypertension hyperlipidemia. He resides in a longterm and the patient was found to be unresponsive and not breathing properly. His pulse ox was also very low and the patient was hypotensive and minimally responsive. He came into the emergency department where he was intubated and placed on the mechanical ventilator. Since admission, the patient was found to be COVID-19 positive. He had a follow-up chest x-ray today that shows significant rotation, ET tube is probably 1 cm above the damian and there is evidence of left lower lobe consolidati on/effusion. Noted at the time of admission, he had also a right upper lobe consolidation in addition to left lower lobe consolidation. Sputum samples have been negative as collected on 08/05/2024 and blood cultures been also negative. No significant leukocytosis. The patient is currently on no antibiotics. The patient is on propofol which is running at 30 mcg/kg/min, and is also on fentanyl at 1 mcg/kg/h.. The patient is on assist-control mode of mechanical ventilation at rate of 20, tidal volume of 500, FiO2 of 60 % with a PEEP of 10. Blood gases from today shows a pH of 7.46 with a pCO2 of 51 and pO2 of 69 and this was an FiO2 of 60%. The patient is on lactated Ringer at rate of 75 cc an hour. The patient receiving vital high-protein at rate of 55 cc an hour. He remains in atrial fibrillation with rapid ventricular response. He is off Cardizem drip . He is also on metoprolol 12.5 mg twice a day and anticoagulation with Eliquis 5 mg p.o. twice a day. He is on Levemir insulin 15 units at bedtime. Earlier this morning, the patient noted to have episodic generalized tonic-clonic seizure-like activity. The patient was kept on propofol. He was given Ativan 2 mg IV push x 2 and started on Keppra. CAT scan of the brain is to follow. EEG is to follow. Neurology consultation is to follow. The patient is on lactated Ringer at rate of 75 cc an hour. Norepinephrine was also started this morning and is currently running at 0.03 mcg/kg/min. He is on EN , vital HP at 35 cc/hr On 08/09/2024, the patient is being seen for a follow-up. The patient remains intubated on the mechanical ventilator. This morning, the patient is on propofol which is running at 15 mcg/kg/min. Noted the propofol rate was gradually reduced as of yesterday and the fentanyl has been discontinued. Overnight, the patient continued to have bradycardic events and the heart rate was dropping as low as in the 40s and the rhythm remains atrial fibrillation. The patient was taken off the beta-blockers. The patient this morning is on assist-control mode of mechanical ventilation at rate of 20, tidal volume of 500, FiO2 of 60% with a PEEP of 5. Blood gas showed a pH of 7.51 with a pCO2 of 43 and pO2 of 64. Chest x-ray showing bilateral airspace disease, worse on the right essentially involving the lung bases. The patient is currently on no pressors. The patient remains on vital high-protein at rate of 45 cc an hour. No further seizure activity has been noted. The patient remains on IV Keppra. EEG showed encephalopathy without any seizure activity. Neurology on the case. The patient remains on IV Zosyn. The patient continues to have significant amount of edema in all 4 extremities and the patient remains on IV Lasix 40 mg every 12 hours. Fluid balance is +180 cc over the past 24 hours. Repeat cultures were sent and the results are still pending. The patient remains on anticoagulation with Eliquis regarding chronic atrial fibrillation. Cardizem drip is off. Metoprolol is currently on hold. On 08/10/2024, the patient is being seen for a follow-up. This morning, the patient is on propofol running at 20 mcg/kg/min. Remains deeply sedated. He is morbidly obese and he remains on the mechanical ventilator due to hypoxic/hypercapnic respiratory failure. This morning, he is on assist-control mode with rate of 20, tidal volume of 500, FiO2 is at 80% with a PEEP of 14. pH is 7.47 with a pCO2 of 44 and pO2 of 67. Chest x-ray shows bilateral pleural effusions and an area of dense consolidation in left upper lobe. There are signs of fluid overload as the patient continues to have extensive edema in all 4 extremities. He is on IV Lasix. Fluid balance is -1.5 L over the past 24 hours. The patient remains on IV Zosyn as an empiric antibiotic coverage. No pressors. No seizure activity and the patient remains on IV Keppra. EEG showed no evidence of any ongoing seizure activity. Remains on vital high-protein at rate of 45 cc an hour and the patient is on Levemir insulin 15 units twice a day. Blood work showed a white cell count of 6.8 with a hemoglobin 9.3 and a platelet count of 310. Sodium level is at 137, BUN is 25 with a creatinine of 0.8 and a potassium level is at 3.8. Procalcitonin level is at 0.48. The patient is afebrile. Hemodynamically, he is in low rate atrial fibrillation. Remains on anticoagulation with Eliquis. On 08/11/2024, the patient is being seen for a follow-up. The patient remains on propofol running at 20 mcg/kg/min. Sedation holiday was done today and the patient was arousable and he was able to follow simple commands. Nevertheless, is not ready for weaning with extubation he was placed back on propofol. At the same time, the patient is on assist-control mode of mechanical ventilation at a rate of 20, tidal volume of 500, FiO2 of 100% with a PEEP of 16. Noted his oxygenation got worse overnight and the patient was placed on 100% FiO2. Current pulse ox is 97%. She has been gradually been his FiO2. The blood gases showed a pH of 7.49 with a pCO2 of 51 and pO2 of 76. The patient is currently o n Lasix 40 mg IV every 8 hours and Zaroxolyn 5 mg p.o. twice a day. The net fluid balance is -4.8 L over the past 24 hours. Continues to have evidence of bilateral pleural effusion and extensive pulmonary edema in addition to extensive swelling in the upper and lower extremities bilaterally. He is on Levemir insulin 15 units twice daily. He is on vital high-protein at rate of 45 cc an hour. No seizure activity has been noted. Remains on IV Zosyn. Afebrile. Hemodynamically stable. The white cell count is 6.8 with a hemoglobin 8.7 and a platelet count of 333. The sodium levels at 136, bicarb levels at 34, potassium is at 3.9, BUN is 27 with a creatinine of 0.7. No other significant events overnight. On 08/12/2024, patient remains intubated on mechanical ventilator. The patient is in a significant negative fluid balance and the patient is being diuresed with a combination of Lasix and Zaroxolyn. Fluid balance has been -4 L over the past 24 hours. The patient remains on Lasix 40 mg IV every 8 hours and Zaroxolyn 5 mg p.o. twice a day. The patient's follow-up chest x-ray from today shows improved aeration in the lungs. There is cardiomegaly. There is continued pulmonary edema and bilateral pleural effusions. Tube remains in good location. He is on assist-control mode of mechanical ventilation at rate of 20, tidal volume of 500, FiO2 of 70% with a PEEP of 16. Blood gas showed a pH of 7.54 with pCO2 48 and pO2 of 69. Remains on low rate atrial fibrillation and r ate is controlled. Remains on vital high-protein at rate of 48 cc an hour. The white cell count is at 8 with a hemoglobin 8.9 and platelet count of 418. Sodium is at 135, BUN 33 with a creatinine of 0.6. Bicarbonate level is at 35. Afebrile. No other significant events overnight. Was given a sedation holiday and the patient's mentation was appropriate. Based on that, the patient was placed back on propofol which is running at 15 mcg/kg/min. On 08/13/2024, the patient remains intubated on the mechanical ventilator. Unfortunately, oxygenation remains unchanged despite excellent diuresis that the patient has achieved over the past 48 hours. For now, the patient is still on mechanical ventilator. Sedated with propofol running at 50 mcg/kg/min. He is on assist-control mode with rate of 20, tidal volume of 500, FiO2 of 80% with a PEEP of 16. The blood gas showed a pH of 7.56 with a pCO2 of 46 and pO2 of 101. Fluid balance is -4.8 L over the past 24 hours. The patient is afebrile., Comfortable. Hemodynamically stable on no pressors. White cell count of 9.1 with a hemoglobin 9.8 and a platelet count of 461. BUN 34 with a creatinine of 0.7 and sodium level of 134. Follow-up chest x-ray was done today and it shows left-sided pleural effusion, improvement in the volume status. ET tube remains in good location. The patient remains on anticoagulation with Eliquis regarding a low rate controlled atrial fibrillation. The patient remains on Eliquis 5 mg p.o. twice a day. The patient remains on Levemir insulin 20 units twice daily and sliding scale insulin coverage. The patient remains on empiric antibiotic coverage with IV Zosyn. On 08/14/2024, the patient remains on the mechanical ventilator on propofol running at 50 mcg/kg/min. Remains on Lasix and Zaroxolyn. Fluid balance is - 5.9 L over the past 24 hours and over the past 72 hours, the patient has been at least 19 L negative fluid balance. The ventilator settings are essentially unchanged. The patient remains on assist-control mode on mechanical ventilation at a rate of 20, tidal volume of 500, FiO2 of 70% with a PEEP of 16. Morning blood gas showed a pH of 7.52 with a pCO2 of 44 and pO2 of 86. The patient is on Levemir insulin 25 units twice daily. The patient is on vital high-protein. The patient remains on Levemir insulin for blood sugar control and the patient is currently on 25 units twice a day with adequate blood sugar control. Labs from today show a white cell count of 8, hemoglobin of 9.2 and a platelet count of 474. Sodium levels at 133, K is at 3.3, bicarb is at 40, BUN 34 with a creatinine of 0.9. The patient remains on IV Zosyn. Patient was seen today on 08/15/2024, remains in the ICU, intubated and mechanically ventilated, on assist-control rate of 20 tidal volume 500 FiO2 50% PEEP of 12 his ABG is marginal with a pO2 of 72 pCO2 of 45 pH of 7.45, hence no plans to lower down the PEEP from 12 although it was 16 yesterday. Patient remains on propofol 25 mcg/kg/min he is also on vital HP at 55 cc/h cultures have been negative procalcitonin 0.18 patient is arousable, follows simple instructions, however he is not quite ready for weaning. In addition to his m ultiple medical problems, patient has COVID-19 pneumonia, chest x-ray continues to show evidence of bilateral bibasilar and midlung infiltrates, small left pleural effusion is also noted WBC count is 7.2 hemoglobin 9.5 ABG as noted earlier, Basic metabolic profile is normal bicarb is 36 BUN 38 creatinine 0.85 patient was seen today on 08/16/2024, patient remains in the ICU, bated and mechanically ventilated, he is on assist-control rate of 20 tidal volume 500 FiO2 70% PEEP was 12 and increased to 18 as his ABG showed a pO2 of 74 pCO2 52 pH of 7.43 and that was on 70% and PEEP of 12 patient had endotracheal tube changed today done at bedside, and post intubation his O2 saturation remained in the 80s/85%, follow-up ABG showed a pO2 of 54 pCO2 of 52 pH of 7.42 hence the PEEP was increased to 18 and his FiO2 was increased to 100%. Patient had a chest x-ray that showed some interstitial changes and findings of interstitial edema or interstitial infiltrates, Lasix was given at 40 mg IV push. Patient remains on propofol at 45 vital at 50 mL/h, patient had a PICC line placed on 08/15, and today I changed his endotracheal tube because of malfunctioning of his old endotracheal tube and kept popping off and getting disconnected. His Decadron was changed to Solu-Medrol 60 mg IV push every 6 hours, and looking at the overall picture, patient is not showing significant improvement in the last 10 days and I am recommending surgical evaluation for possible tracheostomy, and PEG tube placement, and eventually may require placement in select care specialty. WBC count today is 8.7 hemoglobin 9.9 ABG as noted earlier electrolytes showed low potassium of 3.1, BUN of 42 creatinine 0.77 Patient was seen today on 08/17/2024, remains in the ICU, intubated and mechanically ventilated, patient is on assist-control rate of 20 tidal volume 500 FiO2 70% and I cut it down to 50% is PEEP remains 18 ABG today on 70% showed a pO2 of 113 pCO2 43 pH of 7.50. Will try to cut down the FiO2 to 50% and keep PEEP for now at 18 however the patient continues to maintain adequate O2 saturation may cut down the PEEP down to 16. Chest x-ray shows slight improvement compared to yesterday however patient is on a higher PEEP which may be misleading. Patient remains on propofol at 15 mg/kg/min vital HP at 50 cc/h. Patient is on Lasix 40 mg IV push twice daily remains on Eliquis. Off antibiotics, Remains on GI and DVT prophylaxis and mostly diuretics. Procalcitonin level came down to 0.18 hence will not restart antibiotics at this point. Sputum cultures are pending Objective - Vital Signs Vital signs: Vital Signs Temp 97.2 F L 08/17/24 12:00 Pulse 54 L 08/17/24 14:00 Resp 20 08/17/24 14:00 BP 109/84 08/17/24 07:00 Pulse Ox 93 L 08/17/24 14:00 FiO2 50 08/17/24 12:22 Intake & Output 08/16/24 08/17/24 08/17/24 18:59 06:59 18:59 Intake Total 1526.464 431.424 221 Output Total 2555 1775 880 Balance -1028.536 -1343.576 -659 Weight 193.956 kg 193.956 kg Intake: IV 39 21 Pressure Bag 39 21 Intake, IV Titration 597.464 171.424 200 Amount propofoL 1,000 mg In 597.464 171.424 200 Empty Bag 1 bag @ 20 MCG/ KG/MIN 25.855 mls/hr IV . Q3H53M [facility] Rx#:[id number] Tube Feeding 800 250 0 Other 90 10 0 Output: Urine 2555 1775 880 Other: Voiding Method Indwelling Catheter Indwelling Catheter Indwelling Catheter # Bowel Movements 0 2 ABP, PAP, CO, CI - Last Documented Arterial Blood Pressure 122/78 - Exam GENERAL: The patient is intubated and sedated. HEENT: Pupils are round and equally reacting to light. EOMI. No scleral icterus. No conjunctival pallor. Normocephalic, atraumatic. No pharyngeal erythema. No thyromegaly. CARDIOVASCULAR: Tachycardic , normal S1-S2 no S3 gallop. PULMONARY: No crackles rhonchi or wheezes diminished breath sounds at the bases Abdomen, obese soft nontender no megaly, no rebound, no guarding. MUSCULOSKELETAL: No joint swelling or deformity. EXTREMITIES: No cyanosis, clubbing, continues with 1+ bipedal edema NEUROLOGICAL: Patient is sedated, could not assess Psychiatric: Could not assess patient is sedated SKIN: No rashes. no petechiae. - Labs CBC & Chem 7: 08/17/24 04:30 08/17/24 04:30 Labs: Abnormal Lab Results - Last 24 Hours (Table) 08/16/24 08/16/24 08/17/24 Range/Units 17:56 23:39 04:30 RBC 4.26 L (4.30-5.90) m/uL Hgb 9.7 L (13.0-17.5) gm/dL Hct 32.3 L (39.0-53.0) % MCV 75.8 L (80.0-100.0) fL MCH 22.8 L (25.0-35.0) pg MCHC 30.0 L (31.0-37.0) g/dL RDW 16.5 H (11.5-15.5) % Plt Count 539 H (150-450) k/uL Lymphocytes # 0.9 L (1.0-4.8) k/uL ABG pH (7.35-7.45) ABG pO2 (83-108) mmHg ABG HCO3 (21-25) mmol/L ABG Total CO2 (19-24) mmol/L ABG O2 Saturation (94-97) % Hemoglobin (13.0-17.5) gm/dL Sodium (137-145) mmol/L Chloride (98-107) mmol/L Carbon Dioxide (22-30) mmol/L BUN (9-20) mg/dL Glucose (74-99) mg/dL POC Glucose (mg/dL) 350 H 313 H (70-110) mg/dL 08/17/24 08/17/24 08/17/24 Range/Units 04:30 04:44 05:25 RBC (4.30-5.90) m/uL Hgb (13.0-17.5) gm/dL Hct (39.0-53.0) % MCV (80.0-100.0) fL MCH (25.0-35.0) pg MCHC (31.0-37.0) g/dL RDW (11.5-15.5) % Plt Count (150-450) k/uL Lymphocytes # (1.0-4.8) k/uL ABG pH 7.50 H (7.35-7.45) ABG pO2 113 H (83-108) mmHg ABG HCO3 33 H (21-25) mmol/L ABG Total CO2 34 H (19-24) mmol/L ABG O2 Saturation 99.2 H (94-97) % Hemoglobin 9.6 L (13.0-17.5) gm/dL Sodium 134 L (137-145) mmol/L Chloride 91 L (98-107) mmol/L Carbon Dioxide 34 H (22-30) mmol/L BUN 47 H (9-20) mg/dL Glucose 253 H (74-99) mg/dL POC Glucose (mg/dL) 241 H (70-110) mg/dL 08/17/24 Range/Units 11:59 RBC (4.30-5.90) m/uL Hgb (13.0-17.5) gm/dL Hct (39.0-53.0) % MCV (80.0-100.0) fL MCH (25.0-35.0) pg MCHC (31.0-37.0) g/dL RDW (11.5-15.5) % Plt Count (150-450) k/uL Lymphocytes # (1.0-4.8) k/uL ABG pH (7.35-7.45) ABG pO2 (83-108) mmHg ABG HCO3 (21-25) mmol/L ABG Total CO2 (19-24) mmol/L ABG O2 Saturation (94-97) % Hemoglobin (13.0-17.5) gm/dL Sodium (137-145) mmol/L Chloride (98-107) mmol/L Carbon Dioxide (22-30) mmol/L BUN (9-20) mg/dL Glucose (74-99) mg/dL POC Glucose (mg/dL) 240 H (70-110) mg/dL Microbiology - Last 24 Hours (Table) 08/15/24 15:30 Catheter Tip Culture - Final Catheter Tip Assessment and Plan Assessment: Impression: Acute hypoxic respiratory failure requiring intubation mechanical ventilation, multifactorial Acute COVID-19 pneumonia Acute fluid overload and bilateral pleural effusions most likely secondary to diastolic congestive heart failure Chronic atrial fibrillation Morbid obesity New onset seizure activity, on Keppra History of CVA Benign essential hypertension Obesity hypoventilation syndrome with BMI of 63.9 Obstructive sleep apnea syndrome Congestive heart failure with preserved LV function Type 2 diabetes Iron deficiency anemia History of polysubstance abuse History of right foot diabetic infection with previous incision and drainage in July 04, 2023 Status post endotracheal tube changed on 08/16 Recommendation: Continue ventilatory support, titrate PEEP down if tolerated based on O2 satur ation continue FiO2 at 50% today Being considered for tracheostomy and PEG tube placement Procalcitonin level is normal hence no plans to place on antibiotics for now Continue diuretics including Lasix and Zaroxolyn Patient is not ready for any form of weaning Continue Keppra Continue Eliquis Continue nutritional support/enteral feeding patient is on vital HP Continue GI and DVT prophylaxis Patient remains critically ill Critical care time is over 30 Time with Patient: Greater than 30
--- NOTE | 2024-08-17 16:02 | P.PN ---
Subjective Progress Note Date: 08/17/24 SURGICAL PROGRESS NOTE CHIEF COMPLAINT: Respiratory failure HISTORY OF PRESENT ILLNESS: Patient remains in the ICU intubated and on mechanical ventilation. PEEP of 18. Eliquis and tube feeds held. Afebrile. WBC 8.6 Hgb 9.7 platelets 539 sodium 134 potassium 3.5 creatinine 0.75 PHYSICAL EXAM: VITAL SIGNS: Reviewed. GENERAL: no acute distress. Intubated and sedated ABDOMEN: Soft. Obese. Nondistended. Nontender. ASSESSMENT: 1. Acute hypoxic respiratory failure unable to wean from vent 2. Severe protein calorie malnutrition PLAN: -Patient scheduled for tracheostomy and PEG tube placement today with Dr. Chowdhury -Continue to hold tube feeds and Eliquis Physician Roll Out Manager note has been reviewed by physician. Signing provider agrees with the documented findings, assessment, and plan of care. Objective - Vital Signs Vital signs: Vital Signs Temp 97.2 F L 08/17/24 12:00 Pulse 60 08/17/24 12:00 Resp 20 08/17/24 12:00 BP 109/84 08/17/24 07:00 Pulse Ox 97 08/17/24 12:00 FiO2 50 08/17/24 12:22 Intake & Output 08/16/24 08/17/24 08/17/24 18:59 06:59 18:59 Intake Total 1526.464 431.424 115 Output Total 2555 1775 730 Balance -1028.536 -1343.576 -615 Weight 193.956 kg 193.956 kg Intake: IV 39 15 Pressure Bag 39 15 Intake, IV Titration 597.464 171.424 100 Amount propofoL 1,000 mg In 597.464 171.424 100 Empty Bag 1 bag @ 20 MCG/ KG/MIN 25.855 mls/hr IV . Q3H53M [facility] Rx#:[id number] Tube Feeding 800 250 0 Other 90 10 0 Output: Urine 2555 1775 730 Other: Voiding Method Indwelling Catheter Indwelling Catheter Indwelling Catheter # Bowel Movements 0 2 ABP, PAP, CO, CI - Last Documented Arterial Blood Pressure 142/92 - Labs CBC & Chem 7: 08/17/24 04:30 08/17/24 04:30 Labs: Abnormal Lab Results - Last 24 Hours (Table) 08/16/24 08/16/24 08/17/24 Range/Units 17:56 23:39 04:30 RBC 4.26 L (4.30-5.90) m/uL Hgb 9.7 L (13.0-17.5) gm/dL Hct 32.3 L (39.0-53.0) % MCV 75.8 L (80.0-100.0) fL MCH 22.8 L (25.0-35.0) pg MCHC 30.0 L (31.0-37.0) g/dL RDW 16.5 H (11.5-15.5) % Plt Count 539 H (150-450) k/uL Lymphocytes # 0.9 L (1.0-4.8) k/uL ABG pH (7.35-7.45) ABG pO2 (83-108) mmHg ABG HCO3 (21-25) mmol/L ABG Total CO2 (19-24) mmol/L ABG O2 Saturation (94-97) % Hemoglobin (13.0-17.5) gm/dL Sodium (137-145) mmol/L Chloride (98-107) mmol/L Carbon Dioxide (22-30) mmol/L BUN (9-20) mg/dL Glucose (74-99) mg/dL POC Glucose (mg/dL) 350 H 313 H (70-110) mg/dL 08/17/24 08/17/24 08/17/24 Range/Units 04:30 04:44 05:25 RBC (4.30-5.90) m/uL Hgb (13.0-17.5) gm/dL Hct (39.0-53.0) % MCV (80.0-100.0) fL MCH (25.0-35.0) pg MCHC (31.0-37.0) g/dL RDW (11.5-15.5) % Plt Count (150-450) k/uL Lymphocytes # (1.0-4.8) k/uL ABG pH 7.50 H (7.35-7.45) ABG pO2 113 H (83-108) mmHg ABG HCO3 33 H (21-25) mmol/L ABG Total CO2 34 H (19-24) mmol/L ABG O2 Saturation 99.2 H (94-97) % Hemoglobin 9.6 L (13.0-17.5) gm/dL Sodium 134 L (137-145) mmol/L Chloride 91 L (98-107) mmol/L Carbon Dioxide 34 H (22-30) mmol/L BUN 47 H (9-20) mg/dL Glucose 253 H (74-99) mg/dL POC Glucose (mg/dL) 241 H (70-110) mg/dL 08/17/24 Range/Units 11:59 RBC (4.30-5.90) m/uL Hgb (13.0-17.5) gm/dL Hct (39.0-53.0) % MCV (80.0-100.0) fL MCH (25.0-35.0) pg MCHC (31.0-37.0) g/dL RDW (11.5-15.5) % Plt Count (150-450) k/uL Lymphocytes # (1.0-4.8) k/uL ABG pH (7.35-7.45) ABG pO2 (83-108) mmHg ABG HCO3 (21-25) mmol/L ABG Total CO2 (19-24) mmol/L ABG O2 Saturation (94-97) % Hemoglobin (13.0-17.5) gm/dL Sodium (137-145) mmol/L Chloride (98-107) mmol/L Carbon Dioxide (22-30) mmol/L BUN (9-20) mg/dL Glucose (74-99) mg/dL POC Glucose (mg/dL) 240 H (70-110) mg/dL Microbiology - Last 24 Hours (Table) 08/15/24 15:30 Catheter Tip Culture - Final Catheter Tip
[2024-08-17] MEDS ORDERED: PROPOFOL 10 MG/ML 20 ML VIAL IV ONE (16:45)
[2024-08-17] MEDS ORDERED: fentaNYL (PF) 50 MCG/ML 2 ML AMP ONE (16:45)
[2024-08-17] MEDS ORDERED: MIDAZOLAM 2 MG/2 ML VIAL ONE (16:45)
[2024-08-17] MEDS ORDERED: ROCURONIUM 10 MG/ML (5 ML VIAL) IV ONE (16:45)
[2024-08-17] MEDS: SODIUM CHLORIDE 0.9% 250 ML IV ONE (16:53)
[2024-08-17 17:28] LABS: Glucose,Whole Blood 220 mg/dL (70-110)
--- NOTE | 2024-08-17 17:37 | P.OP ---
Date of Procedure: 08/17/24 Preoperative Diagnosis: Respiratory failure Postoperative Diagnosis: Respiratory failure Procedure(s) Performed: Insertion of tracheostomy #8 bovina Anesthesia: DINORAH Surgeon: Ori Chowdhury Pathology: none sent Condition: stable Disposition: PACU Description of Procedure: T the patient's placed on the bed in the supine position. The patient received general anesthesia. The neck was prepped and draped in usual sterile fashion. A standard transverse skin incision was made approximately 2 cm above the sternal notch. Using electrocautery the subcutaneous tissues were divided. The platysma was divided. A Wheatlander retractor was placed in the wound. Next the strap muscles were divided in the midline. Another weatlander retractor was placed the wound. The pretracheal fat was then divided with left cautery. The trachea was exposed. At this point the MOLDER SWEEP advance the and the tracheal tube into the right mainstem bronchus. The balloon was inflated. A tracheotomy was then performed between the second and third tracheal rings. The perivascular tissues a gracilis the trachea. The endotracheal tube was brought back under direct vision. And then the #8 Portex tracheostomy tube was placed into the trachea. End-tidal CO2 was confirmed. The patient had been connected to the ventilator. The patient was ventilated satisfactory. The skin incision site was then closed with 3-0 nylon after the retractors were withdrawn. An umbilical tie was used to secure the tracheostomy tube.
[2024-08-17] MEDS: HYDROmorphone 1 MG/ML 1 ML SYRINGE IVP PRN (18:04)
--- NOTE | 2024-08-17 19:19 | XR ---
EXAMINATION TYPE: XR chest 1V portable DATE OF EXAM: 08/17/2024 6:47 PM COMPARISON: 08/17/2024 CLINICAL INDICATION: Male, 63 years old with history of confirm NGT placement; TECHNIQUE: XR chest 1V portable Frontal view of the chest. FINDINGS: Lungs/Pleura: There is no evidence of pleural effusion, focal consolidation, or pneumothorax. Pulmonary vascularity: Unremarkable. Heart/mediastinum: Cardiomediastinal silhouette is unremarkable. Musculoskeletal: No acute osseous pathology. Remote appearing left-sided rib fractures. Other findings: None Lines/Tubes: Endotracheal tube with distal tip 2.8 cm above the damian. A tube is thought to be coiled up in the upper aspect of the sella [id number]. Possibly malplaced NG tube. Left-sided PICC with distal tip at the superior vena cava. IMPRESSION: Nasogastric tube not visualized possibly coiled in the upper esophagus consider retraction replacemen t. [facility], , 08/17/2024 7:16 PM
--- NOTE | 2024-08-17 19:20 | XR ---
EXAMINATION TYPE: XR chest 1V DATE OF EXAM: 08/17/2024 6:47 PM COMPARISON: Chest radiographs from 08/17/2024 CLINICAL INDICATION: Male, 63 years old with history of NGT READJUSTMENT; TECHNIQUE: XR chest 1V Frontal view of the chest. FINDINGS: Lungs/Pleura: There is no evidence of pleural effusion, focal consolidation, or pneumothorax. Pulmonary vascularity: Unremarkable. Heart/mediastinum: Cardiomediastinal silhouette is unremarkable. Musculoskeletal: No acute osseous pathology. Other findings: None Lines/Tubes: Endotracheal tube with distal tip 3.3cm above the damian. Nasogastric tube with side-port projecting over the distal esophagus. Left-sided PICC with distal tip at the superior vena cava. IMPRESSION: Nasogastric tube now projecting in the distal esophagus advance of 12 cm recommended for optimal plac ement. [facility], , 08/17/2024 7:18 PM
--- NOTE | 2024-08-17 20:23 | XR ---
EXAMINATION TYPE: XR chest 1V portable DATE OF EXAM: 08/17/2024 8:12 PM COMPARISON: Chest radiographs from 08/17/2024 CLINICAL INDICATION: Male, 63 years old with history of NG tube placement confirmation; [facility] TECHNIQUE: XR chest 1V portable Frontal view of the chest. FINDINGS: Lungs/Pleura: Hazy opacities in the left lung base is no evidence of pleural effusion, focal consolid ation, or pneumothorax. Pulmonary vascularity: Unremarkable. Heart/mediastinum: Cardiomediastinal silhouette is unremarkable. Musculoskeletal: No acute osseous pathology. Other findings: None Lines/Tubes: Tracheostomy cannula tip projecting over the trachea. Nasogastric tube with its distal tip and side-port projecting under the diaphragm. Left-sided PICC with distal tip at the superior vena cava. IMPRESSION: 1. Nasogastric tube in appropriate position. 2. Left PICC in appropriate position. 3. Trachea appropriate position. 4. Hazy opacities in left lung base correlate for pneumonia. [facility], , 08/17/2024 8:20 PM
[2024-08-17] MEDS: INSULIN DETEMIR (LEVEMIR) 100 UNIT/ML SYR SQ SCH (20:41)
--- NOTE | 2024-08-17 22:48 | EEG ---
ELECTROENCEPHALOGRAM REPORT CLINICAL HISTORY: This is a 63-year-old gentleman who has altered mental status. The video EEG is obtained to evaluate for seizure epileptiform activity. RELEVANT MEDICATION: 1. Keppra. 2. IV propranolol. EEG TYPE: This is a routine 21 channel EEG with video using the 10/20 electrode placement system. DESCRIPTION: Patient is intubated on a ventilator. The background consists of ini-ey-bdsinhem voltage of 1.5 to 2.5 hertz activity and sometimes it goes up to 3.5 rarely intermixed with theta activity. There was no physiological stage 2 sleep architecture. There is no focal slowing. Interictal and ictal is none. ACTIVATION PROCEDURE: Photic stimulation and hyperventilation is not performed. CLINICAL INTERPRETATION: This is an abnormal routine EEG. The background slowing is suggestive of severe encephalopathy likely due to toxic-metabolic derangement. Otherwise, there is no focal slowing, epileptiform discharge, or seizure on the EEG. Clinical correlation is recommended. MAGAN / LUIS: [id number] / [email or web address]
[2024-08-17 23:42] LABS: Glucose,Whole Blood 233 mg/dL (70-110)
[2024-08-18 04:01] LABS: Anisocytosis Slight; Basophils % (A) 0 %; Eosinophils % (A) 0 %; HCT 34.7 % (39.0-53.0); HGB 10.3 gm/dL (13.0-17.5); Hypochromasia Marked; Lymphocytes % (A) 9 %; MCH 22.5 pg (25.0-35.0); MCHC 29.7 g/dL (31.0-37.0); MCV 75.7 fL (80.0-100.0); Mean Platelet Volume 7.2; Microcytosis Slight; Monocytes # (A) 0.5 k/uL (0-1.0); Monocytes % (A) 5 %; Neutrophils # (A) 9.5 k/uL (1.3-7.7); Neutrophils % (A) 85 %; Platelet Count 512 k/uL (150-450); Poikilocytosis Slight; RBC 4.59 m/uL (4.30-5.90); RDW 16.4 % (11.5-15.5); WBC 11.1 k/uL (3.8-10.6)
[2024-08-18 04:44] LABS: African American GFR (CKD) >90 (>60 ml/min/1.73 sqM); Anion Gap 8 mmol/L; Blood Urea Nitrogen 53 mg/dL (9-20); Calcium 9.3 mg/dL (8.4-10.2); Carbon Dioxide 35 mmol/L (22-30); Chloride 91 mmol/L (98-107); Glucose 209 mg/dL (74-99); Magnesium 2.2 mg/dL (1.6-2.3); Non-African American GFR(CKD) >90 (>60 ml/min/1.73 sqM); Potassium 3.2 mmol/L (3.5-5.1); Sodium 134 mmol/L (137-145)
[2024-08-18] MEDS: POTASSIUM CHLORIDE 20 MEQ in WATER FOR INJECTION 1 100ML.BAG IVPB SCH (05:38)
[2024-08-18 05:54] LABS: Glucose,Whole Blood 193 mg/dL (70-110)
[2024-08-18 06:07] LABS: ABG Base Excess 9.7 mmol/L; ABG HCO3 33 mmol/L (21-25); ABG Oxygen Saturation 96.8 % (94-97); ABG PCO2 41 mmHg (35-45); ABG PH 7.52 (7.35-7.45); ABG PO2 77 mmHg (83-108); ABG TCO2 35 mmol/L (19-24); Allen Test Performed? Yes
--- NOTE | 2024-08-18 07:29 | XR ---
EXAMINATION TYPE: XR chest 1V portable DATE OF EXAM: 08/18/2024 5:36 AM COMPARISON: Chest radiographs from 08/17/2024 CLINICAL INDICATION: Male, 63 years old with history of line placement; [facility] TECHNIQUE: XR chest 1V portable Frontal view of the chest. FINDINGS: Lungs/Pleura: There is no evidence of pleural effusion, focal consolidation, or pneumothorax. Pulmonary vascularity: Unremarkable. Heart/mediastinum: Cardiomediastinal silhouette is unremarkable. Musculoskeletal: No acute osseous pathology. Other findings: None Lines/Tubes: Tracheostomy cannula tip projecting over the trachea. Nasogastric tube with its distal tip and side-port projecting under the diaphragm. Left-sided PICC with distal tip at the superior vena cava. IMPRESSION: Support line and tubes in appropriate position [facility], , 08/18/2024 7:27 AM
--- NOTE | 2024-08-18 09:10 | P.PN ---
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 Cardiac cath more than 10 years ago revealed no obstructive CAD. Plan is to continue current rate control and anticoagulation. No new suggestions from a cardiac standpoint. He has significant pulmonary hypertension chronic hypoxemia with obstructive sleep apnea. He also has diastolic heart failure.. PHYSICIAL EXAM: Vitals are stable he is in atrial fibrillation controlled rate JVD is evident S1-S2 heard normally with irregularity rhythm no significant murmurs lungs reveal a ventilator assisted breath sounds abdomen is soft lower extremities reveal bilateral mild to moderate edema diminished pulses Central nervous system assessment not performed. IMPRESSION: 1. Permanent atrial fibrillation with probable underlying sick sinus syndrome rate control is good no significant bradycardia. 2. History of obstructive sleep apnea with respiratory failure intubated on a ventilator. 3. History of CVA details unknown. 4. Morbid obesity and diastolic heart failure. 5.. RECOMMENDATIONS: Continue current therapy thyroid functions are normal no rate control agents needed continue Eliquis that he is getting. I will see him as needed. Please call if there is any question. August 17, 2024: This morning patient is in atrial fibrillation but the rate is slower between 45 and 60. He is not on any pressors making decent urine but neurologically there is not much activity EEG has been performed and will probably be reviewed. Cardiac doll I have no new suggestions. Prognosis remains poor we will await further input from neurology after review of EEG and advise. His other comorbid conditions include pulmonary hypertension chronic hypoxemia obstructive sleep apnea diastolic heart failure. Prognosis remains poor. PHYSICIAL EXAM: Vitals are stable he is in atrial fibrillation controlled rate JVD is evident S1-S2 heard normally with irregularity rhythm no significant murmurs lungs reveal a ventilator assisted breath sounds abdomen is soft lower extremities reveal bilateral mild to moderate edema diminished pulses Central nervous system assessment not performed. IMPRESSION: 1. Permanent atrial fibrillation with probable underlying sick sinus syndrome rate control is good no significant bradycardia. 2. History of obstructive sleep apnea with respiratory failure intubated on a ventilator. 3. History of CVA details unknown. 4. Morbid obesity and diastolic heart failure. HPI: This is a 63-year-old gentleman with history of morbid obesity permanent atrial fibrillation CVA a resident of a snf came in after being unresponsive has been intubated. He was diagnosed with COVID infection he is currently on a ventilator he has a permanent atrial fibrillation rate is fairly well-controlled sometimes low but now today he is in the 50-60 range. At this time he is not on any beta-blockers. His cardiac cath more than 10 years ago did not reveal any significant obstructive disease. May have underlying sick sinus syndrome. Thyroid functions are normal. EEG suggests severe encephalopathy. Given this he should probably be on a comfort care or hospice. I believe there will be a discussion with the family shortly PHYSICIAL EXAM: Vitals are stable he is in atrial fibrillation rate is controlled S1-S2 heard normally irregularity and rhythm noted no significant murmurs lungs reveal ventilator assisted breath sounds abdomen is soft the lower extremities reveal bilateral mild to moderate edema. Central nervous system assessment not performed. IMPRESSION: 1. Permanent atrial fibrillation with probable underlying sick sinus syndrome. 2. History of obstructive sleep apnea currently in respiratory failure intubated on a ventilator. 3. Previous CVA. 4. History of morbid obesity with diastolic heart failure. 5. Anoxic encephalopathy RECOMMENDATIONS: I would recommend that we continue current supportive care. No new suggestions from a cardiac standpoint. Prognosis remains poor probably consider comfort care or hospice Objective - Vital Signs Vital signs: Vital Signs Temp 97.2 F L 08/18/24 08:00 Pulse 58 L 08/18/24 09:00 Resp 20 08/18/24 09:00 BP 117/88 08/18/24 09:00 Pulse Ox 97 08/18/24 09:00 FiO2 50 08/18/24 08:21 Intake & Output 08/17/24 08/18/24 08/18/24 18:59 06:59 18:59 Intake Total 410.779 495.216 6 Output Total 1170 1390 170 Balance -759.221 -894.784 -164 Weight 193.956 kg 195.7 kg Intake: IV 133 3 6 Pressure Bag 33 3 6 Intake, IV Titration 277.779 292.216 Amount Potassium Chloride 20 meq 100 In Water For Injection 1 100ml.bag @ 50 mls/hr IVPB Q2H [facility] Rx#: [id number] propofoL 1,000 mg In 277.779 192.216 Empty Bag 1 bag @ 20 MCG/ KG/MIN 25.855 mls/hr IV . Q3H53M [facility] Rx#:[id number] Tube Feeding 0 200 0 Other 0 Output: Urine 1165 1390 170 Estimated Blood Loss 5 Other: Voiding Method Indwelling Catheter Indwelling Catheter Indwelling Catheter ABP, PAP, CO, CI - Last Documented Arterial Blood Pressure 116/74 - Labs CBC & Chem 7: 08/18/24 03:30 08/18/24 03:30 Labs: Abnormal Lab Results - Last 24 Hours (Table) 08/17/24 08/17/24 08/17/24 Range/Units 11:59 17:25 23:41 WBC (3.8-10.6) k/uL Hgb (13.0-17.5) gm/dL Hct (39.0-53.0) % MCV (80.0-100.0) fL MCH (25.0-35.0) pg MCHC (31.0-37.0) g/dL RDW (11.5-15.5) % Plt Count (150-450) k/uL Neutrophils # (1.3-7.7) k/uL ABG pH (7.35-7.45) ABG pO2 (83-108) mmHg ABG HCO3 (21-25) mmol/L ABG Total CO2 (19-24) mmol/L Hemoglobin (13.0-17.5) gm/dL Sodium (137-145) mmol/L Potassium (3.5-5.1) mmol/L Chloride (98-107) mmol/L Carbon Dioxide (22-30) mmol/L BUN (9-20) mg/dL Glucose (74-99) mg/dL POC Glucose (mg/dL) 240 H 220 H 233 H (70-110) mg/dL 08/18/24 08/18/24 08/18/24 Range/Units 03:30 03:30 05:52 WBC 11.1 H (3.8-10.6) k/uL Hgb 10.3 L (13.0-17.5) gm/dL Hct 34.7 L (39.0-53.0) % MCV 75.7 L (80.0-100.0) fL MCH 22.5 L (25.0-35.0) pg MCHC 29.7 L (31.0-37.0) g/dL RDW 16.4 H (11.5-15.5) % Plt Count 512 H (150-450) k/uL Neutrophils # 9.5 H (1.3-7.7) k/uL ABG pH (7.35-7.45) ABG pO2 (83-108) mmHg ABG HCO3 (21-25) mmol/L ABG Total CO2 (19-24) mmol/L Hemoglobin (13.0-17.5) gm/dL Sodium 134 L (137-145) mmol/L Potassium 3.2 L (3.5-5.1) mmol/L Chloride 91 L (98-107) mmol/L Carbon Dioxide 35 H (22-30) mmol/L BUN 53 H (9-20) mg/dL Glucose 209 H (74-99) mg/dL POC Glucose (mg/dL) 193 H (70-110) mg/dL 08/18/24 Range/Units 06:04 WBC (3.8-10.6) k/uL Hgb (13.0-17.5) gm/dL Hct (39.0-53.0) % MCV (80.0-100.0) fL MCH (25.0-35.0) pg MCHC (31.0-37.0) g/dL RDW (11.5-15.5) % Plt Count (150-450) k/uL Neutrophils # (1.3-7.7) k/uL ABG pH 7.52 H (7.35-7.45) ABG pO2 77 L (83-108) mmHg ABG HCO3 33 H (21-25) mmol/L ABG Total CO2 35 H (19-24) mmol/L Hemoglobin 9.8 L (13.0-17.5) gm/dL Sodium (137-145) mmol/L Potassium (3.5-5.1) mmol/L Chloride (98-107) mmol/L Carbon Dioxide (22-30) mmol/L BUN (9-20) mg/dL Glucose (74-99) mg/dL POC Glucose (mg/dL) (70-110) mg/dL Microbiology - Last 24 Hours (Table) 08/15/24 15:30 Catheter Tip Culture - Final Catheter Tip
--- NOTE | 2024-08-18 10:11 | P.OP ---
Date of Procedure: 08/18/24 Preoperative Diagnosis: Protein calorie malnutrition Postoperative Diagnosis: Routine calorie malnutrition Procedure(s) Performed: EGD Anesthesia: MAC Surgeon: Ori Chowdhury Pathology: none sent Condition: stable Disposition: PACU Description of Procedure: The patient was placed on the endoscopy table in the lateral position. He received IV sedation. The gastro/oropharynx passed in the esophagus and stomach. The scope in place through the pylorus. The first second portion of duodenum appeared normal. Scope was then brought back to the antrum this appeared normal. Scope was then retroflexed Ami and the remainder of the stomach appeared normal. Rmal. The patient is morbidly obese. His BMI was 59. Patient is a very thick abdominal wall. The light reflex from the gastro could not be seen. Due to this the PEG tube could not be placed. At this point scope was drawn.
[2024-08-18 11:40] LABS: Glucose,Whole Blood 186 mg/dL (70-110)
--- NOTE | 2024-08-18 12:04 | P.PN ---
Subjective Progress Note Date: 08/18/24 I am following up with the patient and per the nursing staff patient continues to be altered. Yesterday patient had an EEG which was negative for any seizure or discharges the background was severely slow suggestive of severely encephalopathic. Patient is on light IV sedation of IV propofol 15 mcg/kg/min. Objective - Vital Signs Vital signs: Vital Signs Temp 97.2 F L 08/18/24 08:00 Pulse 57 L 08/18/24 11:00 Resp 16 08/18/24 11:00 BP 141/99 08/18/24 11:00 Pulse Ox 96 08/18/24 11:00 FiO2 50 08/18/24 11:10 Intake & Output 08/17/24 08/18/24 08/18/24 18:59 06:59 18:59 Intake Total 410.779 495.216 152 Output Total 1170 1390 845 Balance -759.221 -894.784 -693 Weight 193.956 kg 195.7 kg Intake: IV 133 3 52 KVO 40 Pressure Bag 33 3 12 Intake, IV Titration 277.779 292.216 100 Amount Potassium Chloride 20 meq 100 In Water For Injection 1 100ml.bag @ 50 mls/hr IVPB Q2H [facility] Rx#: [id number] propofoL 1,000 mg In 277.779 192.216 100 Empty Bag 1 bag @ 20 MCG/ KG/MIN 25.855 mls/hr IV . Q3H53M [facility] Rx#:[id number] Tube Feeding 0 200 0 Other 0 Output: Urine 1165 1390 845 Estimated Blood Loss 5 Other: Voiding Method Indwelling Catheter Indwelling Catheter Indwelling Catheter ABP, PAP, CO, CI - Last Documented Arterial Blood Pressure 162/94 - Exam General: Patient is obese gentleman and does not appear in acute distress. Lung: Patient is intubated on the ventilator Neuro: Limited patient is on IV propofol 15mcg/kg/min. Patient is unresponsive and not following commands. I had to spontaneously open his eyes and primary gaze down. The pupils were round, about 5 mm and reactive to light. With painful stimuli patient had facial grimacing. No facial weakness at baseline. No spontaneous movement. - Labs CBC & Chem 7: 08/18/24 03:30 08/18/24 03:30 Labs: Abnormal Lab Results - Last 24 Hours (Table) 08/17/24 08/17/24 08/17/24 Range/Units 11:59 17:25 23:41 WBC (3.8-10.6) k/uL Hgb (13.0-17.5) gm/dL Hct (39.0-53.0) % MCV (80.0-100.0) fL MCH (25.0-35.0) pg MCHC (31.0-37.0) g/dL RDW (11.5-15.5) % Plt Count (150-450) k/uL Neutrophils # (1.3-7.7) k/uL ABG pH (7.35-7.45) ABG pO2 (83-108) mmHg ABG HCO3 (21-25) mmol/L ABG Total CO2 (19-24) mmol/L Hemoglobin (13.0-17.5) gm/dL Sodium (137-145) mmol/L Potassium (3.5-5.1) mmol/L Chloride (98-107) mmol/L Carbon Dioxide (22-30) mmol/L BUN (9-20) mg/dL Glucose (74-99) mg/dL POC Glucose (mg/dL) 240 H 220 H 233 H (70-110) mg/dL 08/18/24 08/18/24 08/18/24 Range/Units 03:30 03:30 05:52 WBC 11.1 H (3.8-10.6) k/uL Hgb 10.3 L (13.0-17.5) gm/dL Hct 34.7 L (39.0-53.0) % MCV 75.7 L (80.0-100.0) fL MCH 22.5 L (25.0-35.0) pg MCHC 29.7 L (31.0-37.0) g/dL RDW 16.4 H (11.5-15.5) % Plt Count 512 H (150-450) k/uL Neutrophils # 9.5 H (1.3-7.7) k/uL ABG pH (7.35-7.45) ABG pO2 (83-108) mmHg ABG HCO3 (21-25) mmol/L ABG Total CO2 (19-24) mmol/L Hemoglobin (13.0-17.5) gm/dL Sodium 134 L (137-145) mmol/L Potassium 3.2 L (3.5-5.1) mmol/L Chloride 91 L (98-107) mmol/L Carbon Dioxide 35 H (22-30) mmol/L BUN 53 H (9-20) mg/dL Glucose 209 H (74-99) mg/dL POC Glucose (mg/dL) 193 H (70-110) mg/dL 08/18/24 08/18/24 Range/Units 06:04 11:39 WBC (3.8-10.6) k/uL Hgb (13.0-17.5) gm/dL Hct (39.0-53.0) % MCV (80.0-100.0) fL MCH (25.0-35.0) pg MCHC (31.0-37.0) g/dL RDW (11.5-15.5) % Plt Count (150-450) k/uL Neutrophils # (1.3-7.7) k/uL ABG pH 7.52 H (7.35-7.45) ABG pO2 77 L (83-108) mmHg ABG HCO3 33 H (21-25) mmol/L ABG Total CO2 35 H (19-24) mmol/L Hemoglobin 9.8 L (13.0-17.5) gm/dL Sodium (137-145) mmol/L Potassium (3.5-5.1) mmol/L Chloride (98-107) mmol/L Carbon Dioxide (22-30) mmol/L BUN (9-20) mg/dL Glucose (74-99) mg/dL POC Glucose (mg/dL) 186 H (70-110) mg/dL Microbiology - Last 24 Hours (Table) 08/15/24 15:30 Catheter Tip Culture - Final Catheter Tip Assessment and Plan Assessment: * Altered mental status, likely due to hypoxic/toxic metabolic encephalopathy. Patient was found unresponsive at the facility, with saturation of 70%. * Acute COVID-19 pneumonia. Chest x-ray showing bilateral infiltrates. 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 Some sporadic normal appearing background was also seen, which may pertain to better prognosis. However clinical correlation and follow-up EEG strongly recommended. * Repeat EEG on 08/17/2024: Is abnormal. The background slowing is suggestive of severe encephalopathy likely due to toxic metabolic derangement. Otherwise there is no focal slowing, epileptiform discharge or seizure. * I will get a repeat CT of the head to assess if there is any changes on the recent CT compared to the prior CT * Recommend avoiding sedation for at least 40 hours to assess patient's overall neurological condition. Please avoid any sedation or opiate * Is on Keppra down to 750 mg twice daily. Recommend down the line once the patient is more awake responsive of going down on the Keppra. * Continue Eliquis for atrial fibrillation. * Patient on Zosyn. * Other medical management as per IM and critical care. Plan is discussed with her nurse and ICU attending. Time with Patient: Less than 30
--- NOTE | 2024-08-18 13:20 | P.PN ---
Subjective Progress Note Date: 08/18/24 Principal diagnosis: Acute hypoxic respiratory failure, multifactorial On 08/08/2024, the patient is being seen in follow-up in the intensive care unit. This is a morbidly obese 63-year-old male patient who is currently intubated on the mechanical ventilator. Initially presented to us on 08/05/2024 for respiratory distress and the patient became unresponsive. He is known to have morbid obesity, COPD, chronic A-fib, CVA, hypertension hyperlipidemia. [facility] and the patient was found to be unresponsive and not breathing properly. His pulse ox was also very low and the patient was hypotensive and minimally responsive. He came into the emergency department where he was intubated and placed on the mechanical ventilator. Since admission, the patient was found to be COVID-19 positive. He had a follow-up chest x-ray today that shows significant rotation, ET tube is probably 1 cm above the damian and there is evidence of left lower lobe consolidati on/effusion. Noted at the time of admission, he had also a right upper lobe consolidation in addition to left lower lobe consolidation. Sputum samples have been negative as collected on 08/05/2024 and blood cultures been also negative. No significant leukocytosis. The patient is currently on no antibiotics. The patient is on propofol which is running at 30 mcg/kg/min, and is also on fentanyl at 1 mcg/kg/h.. The patient is on assist-control mode of mechanical ventilation at rate of 20, tidal volume of 500, FiO2 of 60 % with a PEEP of 10. Blood gases from today shows a pH of 7.46 with a pCO2 of 51 and pO2 of 69 and this was an FiO2 of 60%. The patient is on lactated Ringer at rate of 75 cc an hour. The patient receiving vital high-protein at rate of 55 cc an hour. He remains in atrial fibrillation with rapid ventricular response. He is off Cardizem drip . He is also on metoprolol 12.5 mg twice a day and anticoagulation with Eliquis 5 mg p.o. twice a day. He is on Levemir insulin 15 units at bedtime. Earlier this morning, the patient noted to have episodic generalized tonic-clonic seizure-like activity. The patient was kept on propofol. He was given Ativan 2 mg IV push x 2 and started on Keppra. CAT scan of the brain is to follow. EEG is to follow. Neurology consultation is to follow. The patient is on lactated Ringer at rate of 75 cc an hour. Norepinephrine was also started this morning and is currently running at 0.03 mcg/kg/min. He is on EN , vital HP at 35 cc/hr On 08/09/2024, the patient is being seen for a follow-up. The patient remains intubated on the mechanical ventilator. This morning, the patient is on propofol which is running at 15 mcg/kg/min. Noted the propofol rate was gradually reduced as of yesterday and the fentanyl has been discontinued. Overnight, the patient continued to have bradycardic events and the heart rate was dropping as low as in the 40s and the rhythm remains atrial fibrillation. The patient was taken off the beta-blockers. The patient this morning is on assist-control mode of mechanical ventilation at rate of 20, tidal volume of 500, FiO2 of 60% with a PEEP of 5. Blood gas showed a pH of 7.51 with a pCO2 of 43 and pO2 of 64. Chest x-ray showing bilateral airspace disease, worse on the right essentially involving the lung bases. The patient is currently on no pressors. The patient remains on vital high-protein at rate of 45 cc an hour. No further seizure activity has been noted. The patient remains on IV Keppra. EEG showed encephalopathy without any seizure activity. Neurology on the case. The patient remains on IV Zosyn. The patient continues to have significant amount of edema in all 4 extremities and the patient remains on IV Lasix 40 mg every 12 hours. Fluid balance is +180 cc over the past 24 hours. Repeat cultures were sent and the results are still pending. The patient remains on anticoagulation with Eliquis regarding chronic atrial fibrillation. Cardizem drip is off. Metoprolol is currently on hold. On 08/10/2024, the patient is being seen for a follow-up. This morning, the patient is on propofol running at 20 mcg/kg/min. Remains deeply sedated. He is morbidly obese and he remains on the mechanical ventilator due to hypoxic/hypercapnic respiratory failure. This morning, he is on assist-control mode with rate of 20, tidal volume of 500, FiO2 is at 80% with a PEEP of 14. pH is 7.47 with a pCO2 of 44 and pO2 of 67. Chest x-ray shows bilateral pleural effusions and an area of dense consolidation in left upper lobe. There are signs of fluid overload as the patient continues to have extensive edema in all 4 extremities. He is on IV Lasix. Fluid balance is -1.5 L over the past 24 hours. The patient remains on IV Zosyn as an empiric antibiotic coverage. No pressors. No seizure activity and the patient remains on IV Keppra. EEG showed no evidence of any ongoing seizure activity. Remains on vital high-protein at rate of 45 cc an hour and the patient is on Levemir insulin 15 units twice a day. Blood work showed a white cell count of 6.8 with a hemoglobin 9.3 and a platelet count of 310. Sodium level is at 137, BUN is 25 with a creatinine of 0.8 and a potassium level is at 3.8. Procalcitonin level is at 0.48. The patient is afebrile. Hemodynamically, he is in low rate atrial fibrillation. Remains on anticoagulation with Eliquis. On 08/11/2024, the patient is being seen for a follow-up. The patient remains on propofol running at 20 mcg/kg/min. Sedation holiday was done today and the patient was arousable and he was able to follow simple commands. Nevertheless, is not ready for weaning with extubation he was placed back on propofol. At the same time, the patient is on assist-control mode of mechanical ventilation at a rate of 20, tidal volume of 500, FiO2 of 100% with a PEEP of 16. Noted his oxygenation got worse overnight and the patient was placed on 100% FiO2. Current pulse ox is 97%. She has been gradually been his FiO2. The blood gases showed a pH of 7.49 with a pCO2 of 51 and pO2 of 76. The patient is currently o n Lasix 40 mg IV every 8 hours and Zaroxolyn 5 mg p.o. twice a day. The net fluid balance is -4.8 L over the past 24 hours. Continues to have evidence of bilateral pleural effusion and extensive pulmonary edema in addition to extensive swelling in the upper and lower extremities bilaterally. He is on Levemir insulin 15 units twice daily. He is on vital high-protein at rate of 45 cc an hour. No seizure activity has been noted. Remains on IV Zosyn. Afebrile. Hemodynamically stable. The white cell count is 6.8 with a hemoglobin 8.7 and a platelet count of 333. The sodium levels at 136, bicarb levels at 34, potassium is at 3.9, BUN is 27 with a creatinine of 0.7. No other significant events overnight. On 08/12/2024, patient remains intubated on mechanical ventilator. The patient is in a significant negative fluid balance and the patient is being diuresed with a combination of Lasix and Zaroxolyn. Fluid balance has been -4 L over the past 24 hours. The patient remains on Lasix 40 mg IV every 8 hours and Zaroxolyn 5 mg p.o. twice a day. The patient's follow-up chest x-ray from today shows improved aeration in the lungs. There is cardiomegaly. There is continued pulmonary edema and bilateral pleural effusions. Tube remains in good location. He is on assist-control mode of mechanical ventilation at rate of 20, tidal volume of 500, FiO2 of 70% with a PEEP of 16. Blood gas showed a pH of 7.54 with pCO2 48 and pO2 of 69. Remains on low rate atrial fibrillation and r ate is controlled. Remains on vital high-protein at rate of 48 cc an hour. The white cell count is at 8 with a hemoglobin 8.9 and platelet count of 418. Sodium is at 135, BUN 33 with a creatinine of 0.6. Bicarbonate level is at 35. Afebrile. No other significant events overnight. Was given a sedation holiday and the patient's mentation was appropriate. Based on that, the patient was placed back on propofol which is running at 15 mcg/kg/min. On 08/13/2024, the patient remains intubated on the mechanical ventilator. Unfortunately, oxygenation remains unchanged despite excellent diuresis that the patient has achieved over the past 48 hours. For now, the patient is still on mechanical ventilator. Sedated with propofol running at 50 mcg/kg/min. He is on assist-control mode with rate of 20, tidal volume of 500, FiO2 of 80% with a PEEP of 16. The blood gas showed a pH of 7.56 with a pCO2 of 46 and pO2 of 101. Fluid balance is -4.8 L over the past 24 hours. The patient is afebrile., Comfortable. Hemodynamically stable on no pressors. White cell count of 9.1 with a hemoglobin 9.8 and a platelet count of 461. BUN 34 with a creatinine of 0.7 and sodium level of 134. Follow-up chest x-ray was done today and it shows left-sided pleural effusion, improvement in the volume status. ET tube remains in good location. The patient remains on anticoagulation with Eliquis regarding a low rate controlled atrial fibrillation. The patient remains on Eliquis 5 mg p.o. twice a day. The patient remains on Levemir insulin 20 units twice daily and sliding scale insulin coverage. The patient remains on empiric antibiotic coverage with IV Zosyn. On 08/14/2024, the patient remains on the mechanical ventilator on propofol running at 50 mcg/kg/min. Remains on Lasix and Zaroxolyn. Fluid balance is - 5.9 L over the past 24 hours and over the past 72 hours, the patient has been at least 19 L negative fluid balance. The ventilator settings are essentially unchanged. The patient remains on assist-control mode on mechanical ventilation at a rate of 20, tidal volume of 500, FiO2 of 70% with a PEEP of 16. Morning blood gas showed a pH of 7.52 with a pCO2 of 44 and pO2 of 86. The patient is on Levemir insulin 25 units twice daily. The patient is on vital high-protein. The patient remains on Levemir insulin for blood sugar control and the patient is currently on 25 units twice a day with adequate blood sugar control. Labs from today show a white cell count of 8, hemoglobin of 9.2 and a platelet count of 474. Sodium levels at 133, K is at 3.3, bicarb is at 40, BUN 34 with a creatinine of 0.9. The patient remains on IV Zosyn. Patient was seen today on 08/15/2024, remains in the ICU, intubated and mechanically ventilated, on assist-control rate of 20 tidal volume 500 FiO2 50% PEEP of 12 his ABG is marginal with a pO2 of 72 pCO2 of 45 pH of 7.45, hence no plans to lower down the PEEP from 12 although it was 16 yesterday. Patient remains on propofol 25 mcg/kg/min he is also on vital HP at 55 cc/h cultures have been negative procalcitonin 0.18 patient is arousable, follows simple instructions, however he is not quite ready for weaning. In addition to his m ultiple medical problems, patient has COVID-19 pneumonia, chest x-ray continues to show evidence of bilateral bibasilar and midlung infiltrates, small left pleural effusion is also noted WBC count is 7.2 hemoglobin 9.5 ABG as noted earlier, Basic metabolic profile is normal bicarb is 36 BUN 38 creatinine 0.85 patient was seen today on 08/16/2024, patient remains in the ICU, bated and mechanically ventilated, he is on assist-control rate of 20 tidal volume 500 FiO2 70% PEEP was 12 and increased to 18 as his ABG showed a pO2 of 74 pCO2 52 pH of 7.43 and that was on 70% and PEEP of 12 patient had endotracheal tube changed today done at bedside, and post intubation his O2 saturation remained in the 80s/85%, follow-up ABG showed a pO2 of 54 pCO2 of 52 pH of 7.42 hence the PEEP was increased to 18 and his FiO2 was increased to 100%. Patient had a chest x-ray that showed some interstitial changes and findings of interstitial edema or interstitial infiltrates, Lasix was given at 40 mg IV push. Patient remains on propofol at 45 vital at 50 mL/h, patient had a PICC line placed on 08/15, and today I changed his endotracheal tube because of malfunctioning of his old endotracheal tube and kept popping off and getting disconnected. His Decadron was changed to Solu-Medrol 60 mg IV push every 6 hours, and looking at the overall picture, patient is not showing significant improvement in the last 10 days and I am recommending surgical evaluation for possible tracheostomy, and PEG tube placement, and eventually may require placement in [facility] care [facility]. WBC count today is 8.7 hemoglobin 9.9 ABG as noted earlier electrolytes showed low potassium of 3.1, BUN of 42 creatinine 0.77 Patient was seen today on 08/17/2024, remains in the ICU, intubated and mechanically ventilated, patient is on assist-control rate of 20 tidal volume 500 FiO2 70% and I cut it down to 50% is PEEP remains 18 ABG today on 70% showed a pO2 of 113 pCO2 43 pH of 7.50. Will try to cut down the FiO2 to 50% and keep PEEP for now at 18 however the patient continues to maintain adequate O2 saturation may cut down the PEEP down to 16. Chest x-ray shows slight improvement compared to yesterday however patient is on a higher PEEP which may be misleading. Patient remains on propofol at 15 mg/kg/min vital HP at 50 cc/h. Patient is on Lasix 40 mg IV push twice daily remains on Eliquis. Off antibiotics, Remains on GI and DVT prophylaxis and mostly diuretics. Procalcitonin level came down to 0.18 hence will not restart antibiotics at this point. Sputum cultures are pending Seen today on 08/18/2024, patient remains in the ICU, intubated and mechanically ventilated, underwent uneventful tracheostomy yesterday, however a PEG tube could not be placed mostly because of his body habitus, surgery will consider open method for placement of the gastrostomy or jejunostomy tube down the line if felt to be necessary next week. In the meantime the patient is intubated mechanically ventilated he is on assist-control rate of 20 tidal volume 500 FiO2 50% PEEP of 16 I cut it down to 14, ABG showed a pO2 of 77 pCO2 41 pH of 7.52 EEG showed severe metabolic encephalopathy patient remains on propofol at 15 m cg/kg/min which I have discontinued today to fully assess mental status off sedation completely remains on enteral feeding patient is receiving tube feeding via nasogastric tube, patient is status post tracheostomy on 08/17/2024 remains on Eliquis remains on Lasix chest x-ray showing slight improvement but again patient is on relatively high PEEP. WBC count is 11.1 hemoglobin 10.3 platelets 512, basic metabolic profile is normal except for low potassium of 3.2 BUN is 53 creatinine 0.8. Objective - Vital Signs Vital signs: Vital Signs Temp 96.9 F L 08/18/24 12:00 Pulse 58 L 08/18/24 13:00 Resp 20 08/18/24 13:00 BP 128/77 08/18/24 13:00 Pulse Ox 98 08/18/24 13:00 FiO2 50 08/18/24 12:00 Intake & Output 08/17/24 08/18/24 08/18/24 18:59 06:59 18:59 Intake Total 410.779 495.216 228 Output Total 1170 1390 1170 Balance -759.221 -894.784 -942 Weight 193.956 kg 195.7 kg Intake: IV 133 3 78 KVO 60 Pressure Bag 33 3 18 Intake, IV Titration 277.779 292.216 100 Amount Potassium Chloride 20 meq 100 In Water For Injection 1 100ml.bag @ 50 mls/hr IVPB Q2H FABIENNE Rx#: [id number] propofoL 1,000 mg In 277.779 192.216 100 Empty Bag 1 bag @ 20 MCG/ KG/MIN 25.855 mls/hr IV . [id number] FABIENNE Rx#:[id number] Tube Feeding 0 200 50 Other 0 Output: Urine 1165 1390 1170 Estimated Blood Loss 5 Other: Voiding Method Indwelling Catheter Indwelling Catheter Indwelling Catheter ABP, PAP, CO, CI - Last Documented Arterial Blood Pressure 107/70 - Exam GENERAL: The patient is intubated and sedated. HEENT: Pupils are round and equally reacting to light. EOMI. No scleral icterus. No conjunctival pallor. Normocephalic, atraumatic. No pharyngeal erythema. No thyromegaly. Tracheostomy is intact CARDIOVASCULAR: Tachycardic , normal S1-S2 no S3 gallop. PULMONARY: No crackles rhonchi or wheezes diminished breath sounds at the bases, tracheostomy is intact Abdomen, obese soft nontender no megaly, no rebound, no guarding. MUSCULOSKELETAL: No joint swelling or deformity. EXTREMITIES: No cyanosis, clubbing, continues with 1+ bipedal edema NEUROLOGICAL: Patient is sedated, could not assess, patient is on relatively low dose of propofol none arousable, grimaces to pain only Psychiatric: Could not assess patient is sedated hence propofol was discontinued for full assessment of mental status of sedation SKIN: Patient has a stage II skin ulcer at the distal lateral aspect of the right lower extremity/chronic - Labs CBC & Chem 7: 08/18/24 03:30 08/18/24 03:30 Labs: Abnormal Lab Results - Last 24 Hours (Table) 08/17/24 08/17/24 08/18/24 Range/Units 17:25 23:41 03:30 WBC 11.1 H (3.8-10.6) k/uL Hgb 10.3 L (13.0-17.5) gm/dL Hct 34.7 L (39.0-53.0) % MCV 75.7 L (80.0-100.0) fL MCH 22.5 L (25.0-35.0) pg MCHC 29.7 L (31.0-37.0) g/dL RDW 16.4 H (11.5-15.5) % Plt Count 512 H (150-450) k/uL Neutrophils # 9.5 H (1.3-7.7) k/uL ABG pH (7.35-7.45) ABG pO2 (83-108) mmHg ABG HCO3 (21-25) mmol/L ABG Total CO2 (19-24) mmol/L Hemoglobin (13.0-17.5) gm/dL Sodium (137-145) mmol/L Potassium (3.5-5.1) mmol/L Chloride (98-107) mmol/L Carbon Dioxide (22-30) mmol/L BUN (9-20) mg/dL Glucose (74-99) mg/dL POC Glucose (mg/dL) 220 H 233 H (70-110) mg/dL 08/18/24 08/18/24 08/18/24 Range/Units 03:30 05:52 06:04 WBC (3.8-10.6) k/uL Hgb (13.0-17.5) gm/dL Hct (39.0-53.0) % MCV (80.0-100.0) fL MCH (25.0-35.0) pg MCHC (31.0-37.0) g/dL RDW (11.5-15.5) % Plt Count (150-450) k/uL Neutrophils # (1.3-7.7) k/uL ABG pH 7.52 H (7.35-7.45) ABG pO2 77 L (83-108) mmHg ABG HCO3 33 H (21-25) mmol/L ABG Total CO2 35 H (19-24) mmol/L Hemoglobin 9.8 L (13.0-17.5) gm/dL Sodium 134 L (137-145) mmol/L Potassium 3.2 L (3.5-5.1) mmol/L Chloride 91 L (98-107) mmol/L Carbon Dioxide 35 H (22-30) mmol/L BUN 53 H (9-20) mg/dL Glucose 209 H (74-99) mg/dL POC Glucose (mg/dL) 193 H (70-110) mg/dL 08/18/24 Range/Units 11:39 WBC (3.8-10.6) k/uL Hgb (13.0-17.5) gm/dL Hct (39.0-53.0) % MCV (80.0-100.0) fL MCH (25.0-35.0) pg MCHC (31.0-37.0) g/dL RDW (11.5-15.5) % Plt Count (150-450) k/uL Neutrophils # (1.3-7.7) k/uL ABG pH (7.35-7.45) ABG pO2 (83-108) mmHg ABG HCO3 (21-25) mmol/L ABG Total CO2 (19-24) mmol/L Hemoglobin (13.0-17.5) gm/dL Sodium (137-145) mmol/L Potassium (3.5-5.1) mmol/L Chloride (98-107) mmol/L Carbon Dioxide (22-30) mmol/L BUN (9-20) mg/dL Glucose (74-99) mg/dL POC Glucose (mg/dL) 186 H (70-110) mg/dL Microbiology - Last 24 Hours (Table) 08/15/24 15:30 Catheter Tip Culture - Final Catheter Tip Assessment and Plan Assessment: Impression: Acute hypoxic respiratory failure requiring intubation mechanical ventilation, multifactorial Acute COVID-19 pneumonia Acute fluid overload and bilateral pleural effusions most likely secondary to diastolic congestive heart failure Chronic atrial fibrillation Morbid obesity New onset seizure activity, on Keppra History of CVA Benign essential hypertension Obesity hypoventilation syndrome with BMI of 63.9 Obstructive sleep apnea syndrome Congestive heart failure with preserved LV function Type 2 diabetes Iron deficiency anemia History of polysubstance abuse History of right foot diabetic infection with previous incision and drainage in July 04, 2023 Status post endotracheal tube changed on 08/16 Status post tracheostomy on 08/17/2019's 5 Recommendation: Continue ventilatory support, I was able to go down on the PEEP to 14 today from 16 kept him on 50% FiO2 Procalcitonin level is normal, off antibiotics Continue diuretics including Lasix and Zaroxolyn Considering his mental status, patient is clearly not ready for any weaning not to mention the patient remains on high FiO2 and high PEEP with FiO2 of 50% and PEEP of 16 cut down to 14 today Continue Keppra Continue Eliquis Continue nutritional support/enteral feeding patient is on vital HP, patient could not have a PEG tube placement hence we will continue to feed via nasogas tric tube. Continue GI and DVT prophylaxis Patient remains critically ill Critical care time is over 30 Time with Patient: Greater than 30
--- NOTE | 2024-08-18 16:01 | P.PN ---
Subjective Progress Note Date: 08/18/24 Patient in the intensive care unit currently intubated and sedated on the mechanical ventilator. Patient's chest x-ray today does reveal worsening CHF. He is significantly edematous. Remains sedated with IV fentanyl and propofol. He continues on IV Zosyn. Patient was started on enteral feedings today. blood sugars are elevated in the 200s. 08/07/2024 Patient was evaluated in follow-up in the medical floor he is currently intubated and sedated on the mechanical ventilator. Patient had gone into atrial fibrillation with rapid ventricular rate overnight requiring IV Cardizem. He has been since transition to oral metoprolol with heart rate better controlled today. He does have a noted history of atrial fibrillation was resumed on his oral Eliquis yesterday. Patient currently has LR running at 75 mL/h he does remain quite edematous mostly in his lower extremities. Patient was noted to have a small amount of yellow bile emesis there has been no residual with his tube feedings and they are continued at a slow rate today of 10 mL/h. He is febrile today temperature of 100.8. An abdominal x-ray was unable to be completed due to patient's body habitus and he is unable to be transported down for x-ray at this time. 08/08/2024 Patient is seen in follow-up in the ICU and overnight placed on mechanical ventilation as patient was noted to have what appeared to be seizure-like activity with no history of seizures and neurology was consulted. Patient was placed on mechanical ventilation currently with an FiO2 of 60% and PEEP is 10 with pulmonary press tool maker following. Patient remains with low-grade temps and also started on Keppra and is maintained on antibiotics. Cardiology following as well maintained on oral anticoagulation and has been having heart rates in the 40s. Continued on low-dose metoprolol and will continue to monitor closely. Per nursing staff patient also requiring low-dose Levophed and has been started on 40 of IV Lasix daily due to significant swelling. Will follow-up on repeat labs and continue to monitor closely. 08/09/2024 Patient is seen in follow-up with multiple consultations following including pulmonary, neurology, cardiology, and infectious disease consulted. Patient underwent EEG which was abnormal with no epileptiform discharges noted. Patient is continued on Keppra for now. Heart rates in the low 40s although per nursing staff slightly improved this afternoon and is being monitored closely with cardiology following. Patient is continued on Lasix for diuresis with significant volume overload. Wean pressors as tolerated and follow-up on repeat labs. Patient's blood sugars have been more elevated and possible steroid effect will increase long-acting and also Accu-Cheks before meals and at bedtime as well as sliding scale. Adjust accordingly. 08/10/2024 Patient is seen in follow-up today continues on mechanical ventilation in the ICU with an FiO2 of 80% and PEEP is 14. Undergoing sedation holidays and per nursing staff patient will open his eyes and attempt to track although not moving. Patient continues to be extremely edematous and is diuresing maintained on IV Lasix. Heart rates slightly improved and will continue current regimen per cardiology. No plans on extubation at this time. Per nursing staff patient has not had a bowel movement and is continued on bowel regimen. Abdomen is soft and there is positive bowel sounds noted. Patient continued on tube feeds. Highly recommend aspiration precautions and head of the bed elevated 30 to 45 degrees at all times. 08/12/2024 Patient is seen in follow-up today remains in the ICU with multiple consultations following. PEEP remains high at 16 with an FiO2 of 70% and per nursing staff has been having some desaturations and is being increased to 80% FiO2. Patient is maintained on metolazone along with IV Lasix and potassium borderline daily being replaced will add daily supplementation. Patient is having adequate diuresis and kidney functions are stable. Patient undergoing sedation holidays daily with no plans of weaning and extubation at this time. Patient is afebrile and maintained on IV Decadron along with Zosyn. Continue bowel regimen patient does have positive bowel sounds and is tolerating tube feeds at this time. Recommend aspiration precautions with head of the bed elevated 45 degrees at all times. 08/13/2024 Patient evaluated in the intensive care unit with multiple consultations following. Patient remains on the mechanical ventilator with a PEEP of 16 and FiO2 of 70%. Patient is appropriately arousable during sedation holidays. No plans for extubation at this time. Patient continues on IV Zosyn continues on IV Lasix IV Diamox and continues on oral zaroxolyn. Lower extremities remain significantly edematous. Patient is continued on enteral feedings now at goal running at 55 mL/h. Blood glucose has been elevated in the 200s. Chest x-ray today reveals a left-sided pleural effusion. 08/14/2024 Patient eval today in follow-up in the intensive care unit patient remains on mechanical ventilator, FiO2 down to 50%. Chest x-ray today reveals stable left lower lobe infiltrate and effusion. Patient remains on IV decadron daily. IV lasix 40 mg Q12 hour. Increased urine output over the last 24 hours. Lower extremity edema has mildly improved. Bowels are moving. Patient is tolerating enteral feeding. IV zosyn has been discontinued. WBC 8.3, hgb 9.2, sodium 133, BUN 34, creatinine 0.90, magnesium 1.9. Patient evaluated today in follow up in the ICU. Vent settings were decreased yesterday to 50% FiO2 with a PEEP of 12, patient became increasingly hypoxic. Vent settings increased back up to 70% fio2 and PEEP of 16. Remains on IV decadron daily. Continues on IV lasix 40 mg Q12 hour as well as oral zaroxolyn. Chest xray today shows left perihilar infiltrate and small left pleural effusion. Patient remains on enteral feedings with Vital HP running at goal of 50 mls/hr and tolerating. Blood glucose remains elevated in the 200-300s. Labs revealing white blood cell count 7.2, hgb 9.5, sodium 132, BUN 38, creatinine 0.85. Procal 0.18. TSH 1.780. 08/16/2023 Patient evaluated today in the ICU. Remains on mechanical ventilator with PEEP of 70% FiO2 of 16. Chest xray today reveals mild right upper lobe infiltrate. Additional mild infiltrate may be at the left base. General surgery consulted for tracheostomy and PEG tube placement. White blood cell count 8.7, hgb 9.9, sodium 132, potassium 4.5, BUN 42, creatinine 0.77. 08/17/2023 Was evaluated today in the intensive care unit. Patient remains on mechanical ventilator with an FiO2 of 60% and PEEP of 18. X-ray today reveals a mild perihilar increased lung markings stable from comparison. Patient catheter tip are currently negative. His white blood blood count is normal at 8.5, hemoglobin 9.7, sodium 134, BUN of 47 and creatinine of 0.75. Is currently on IV Solu-Medrol 60 mg every 6 hours. He is sedated with propofol. He is on IV Keppra. He is currently off antibiotic at this time. 08/18/2023 Patient is status post tracheostomy placement continues on the mechanical ventilator, FiO2 of 50% and PEEP of 16. Patient continues to have evidence of altered mentation with EEG showing severe metabolic encephalopathy. Science Intern planning to discontinue the propofol at this time to assess patient's mental status. He continues on IV Lasix with slight improvement on the chest x-ray today. The PEG tube was unable to be placed secondary to body habitus. Labs today reveal a white blood cell count 11.1, hemoglobin 10.3, sodium 134, potassium 3.2, BUN 53 creatinine of 0.80. Unable to complete review of systems as patient is currently intubated and sedated PHYSICAL EXAMINATION: GENERAL: The patient is intubated and sedated. He is morbidly obese, well- developed, elderly appearing, extremely edematous of upper and lower extremities and body habitus, ill-appearing. FiO2 increased at 80% with a PEEP of 16 HEENT: Pupils are round and equally reacting to light. EOMI. No scleral icterus. No conjunctival pallor. Normocephalic, atraumatic. No pharyngeal erythema. No thyromegaly. CARDIOVASCULAR: S1 and S2 muffled, irregular PULMONARY: Diminished breath sounds bilaterally otherwise chest is clear to auscultation, no wheezing , no crackles. ABDOMEN: Soft, obese, nontender, nondistended, normoactive bowel sounds. No palpable organomegaly. Kelly catheter in place MUSCULOSKELETAL: No joint swelling or deformity. EXTREMITIES: No cyanosis, clubbing, continues with significant lower extremity edema bilaterally pitting right lower leg superficial wound with dressing dry and intact NEUROLOGICAL: Not following commands. Unable to completely assess as patient is intubated and maintained on sedation. Patient is undergoing sedation holidays and does open eyes SKIN: No rashes. no petechiae. Assessment: Acute hypoxic respiratory failure requiring intubation on admission, currently on mechanical ventilation, FiO2 is 50% with PEEP of 16. COVID infection and possible pneumonia, concerns for aspiration pneumonia Possible seizure like activity, new onset, EEG was abnormal although not showing any epileptiform discharges, continued on Keppra for now with neurology following Possible acute COPD exacerbation versus obesity hypoventilation syndrome Possible bacterial pneumonia, healthcare associated with right upper lobe and left lower lobe infiltrates Severe sepsis requiring pressor support Acute on chronic diastolic heart failure with preserved EF A-fib and RVR, present on admission now with slow ventricular rate dropping into the 30s. Patient heart rate slightly improving and will continue current regimen per cardiology Right leg wound with recent cultures showing enterococcus faecalis, ESBL and Providencia Rettgeri Diabetes Mellitus type 2, uncontrolled with hyperglycemia Steroid induced hyperglycemia Morbid obesity with a BMI of 64.2 Chronic anemia Lactic acidemia/acidosis, improved GI prophylaxis DVT prophylaxis Full Code Plan: Patient has completed course of antibiotic therapy and remains off zosyn at this time. Mechanical ventilator per press tool maker. No plans for extubation at this time and undergoing sedation holidays. Continue enteral feedings, tube feeds were resumed and tolerating thus far.. Continue with aspiration precautions and head of the bed elevated 45 degrees at all times and monitor closely for residuals Continue bowel regimen and also daily suppositories. PEG was unable to be placed by general surgery secondary to patient's body habitus Patient does not have history of seizures and was started on Keppra and neurology following underwent EEG which was abnormal although not showing any epileptiform discharges. No further seizure-like activity noted. Per pulmonary press tool maker patient is continued on IV Lasix every 12 hours. And will continue to monitor kidney functions closely. Replace electrolytes per protocol. Daily supplementation of potassium ordered Continue eliquis and monitor for any signs of bleeding. Continue with Accu-Cheks P1kgraf sliding scale along with long-acting. Levemir increased to 55 units SQ BID and novolog scale adjusted to high dose continue Q6 hours. He is continued on IV Solu-Medrol Repeat blood work in the AM Overall prognosis is guarded The impression and plan of care has been dictated by Susannah Campbell, Nurse Pr actitioner as directed. Dr. Jackie MD I have performed a history and physical examination and medical decision making of this patient, discussed the same with the dictator, and agree with the dicta tors assessment and plan as written, documented as a scribe. Based on total visit time, I have performed more than 50% of this visit. Objective - Vital Signs Vital signs: Vital Signs Temp 97.2 F L 08/18/24 08:00 Pulse 38 L 08/18/24 08:00 Resp 20 08/18/24 08:00 BP 117/88 08/18/24 08:00 Pulse Ox 100 08/18/24 08:00 FiO2 50 08/18/24 08:21 Intake & Output 08/17/24 08/18/24 08/18/24 18:59 06:59 18:59 Intake Total 410.779 495.216 3 Output Total 1170 1390 45 Balance -759.221 -894.784 -42 Weight 193.956 kg 195.7 kg Intake: IV 133 3 3 Pressure Bag 33 3 3 Intake, IV Titration 277.779 292.216 Amount Potassium Chloride 20 meq 100 In Water For Injection 1 100ml.bag @ 50 mls/hr IVPB Q2H [facility] Rx#: [id number] propofoL 1,000 mg In 277.779 192.216 Empty Bag 1 bag @ 20 MCG/ KG/MIN 25.855 mls/hr IV . Q3H53M [facility] Rx#:[id number] Tube Feeding 0 200 0 Other 0 Output: Urine 1165 1390 45 Estimated Blood Loss 5 Other: Voiding Method Indwelling Catheter Indwelling Catheter ABP, PAP, CO, CI - Last Documented Arterial Blood Pressure 123/76 - Labs CBC & Chem 7: 08/18/24 03:30 08/18/24 03:30 Labs: Abnormal Lab Results - Last 24 Hours (Table) 08/17/24 08/17/24 08/17/24 Range/Units 11:59 17:25 23:41 WBC (3.8-10.6) k/uL Hgb (13.0-17.5) gm/dL Hct (39.0-53.0) % MCV (80.0-100.0) fL MCH (25.0-35.0) pg MCHC (31.0-37.0) g/dL RDW (11.5-15.5) % Plt Count (150-450) k/uL Neutrophils # (1.3-7.7) k/uL ABG pH (7.35-7.45) ABG pO2 (83-108) mmHg ABG HCO3 (21-25) mmol/L ABG Total CO2 (19-24) mmol/L Hemoglobin (13.0-17.5) gm/dL Sodium (137-145) mmol/L Potassium (3.5-5.1) mmol/L Chloride (98-107) mmol/L Carbon Dioxide (22-30) mmol/L BUN (9-20) mg/dL Glucose (74-99) mg/dL POC Glucose (mg/dL) 240 H 220 H 233 H (70-110) mg/dL 08/18/24 08/18/24 08/18/24 Range/Units 03:30 03:30 05:52 WBC 11.1 H (3.8-10.6) k/uL Hgb 10.3 L (13.0-17.5) gm/dL Hct 34.7 L (39.0-53.0) % MCV 75.7 L (80.0-100.0) fL MCH 22.5 L (25.0-35.0) pg MCHC 29.7 L (31.0-37.0) g/dL RDW 16.4 H (11.5-15.5) % Plt Count 512 H (150-450) k/uL Neutrophils # 9.5 H (1.3-7.7) k/uL ABG pH (7.35-7.45) ABG pO2 (83-108) mmHg ABG HCO3 (21-25) mmol/L ABG Total CO2 (19-24) mmol/L Hemoglobin (13.0-17.5) gm/dL Sodium 134 L (137-145) mmol/L Potassium 3.2 L (3.5-5.1) mmol/L Chloride 91 L (98-107) mmol/L Carbon Dioxide 35 H (22-30) mmol/L BUN 53 H (9-20) mg/dL Glucose 209 H (74-99) mg/dL POC Glucose (mg/dL) 193 H (70-110) mg/dL 08/18/24 Range/Units 06:04 WBC (3.8-10.6) k/uL Hgb (13.0-17.5) gm/dL Hct (39.0-53.0) % MCV (80.0-100.0) fL MCH (25.0-35.0) pg MCHC (31.0-37.0) g/dL RDW (11.5-15.5) % Plt Count (150-450) k/uL Neutrophils # (1.3-7.7) k/uL ABG pH 7.52 H (7.35-7.45) ABG pO2 77 L (83-108) mmHg ABG HCO3 33 H (21-25) mmol/L ABG Total CO2 35 H (19-24) mmol/L Hemoglobin 9.8 L (13.0-17.5) gm/dL Sodium (137-145) mmol/L Potassium (3.5-5.1) mmol/L Chloride (98-107) mmol/L Carbon Dioxide (22-30) mmol/L BUN (9-20) mg/dL Glucose (74-99) mg/dL POC Glucose (mg/dL) (70-110) mg/dL Microbiology - Last 24 Hours (Table) 08/15/24 15:30 Catheter Tip Culture - Final Catheter Tip Assessment and Plan Time with Patient: Less than 30
--- NOTE | 2024-08-18 18:38 | CT ---
EXAMINATION TYPE: CT brain wo con DATE OF EXAM: 08/18/2024 5:28 PM COMPARISON: 08/08/2024 CLINICAL INDICATION: Male, 63 years old with history of ams, AMS TECHNIQUE: CT of the brain is performed utilizing 3 mm thick sections through the posterior fossa and 3 mm thick sections through the remaining calvarium. Study is performed within 24 hours of arrival to the hospital. Contrast used: mL of , (none if empty) CT DLP: 1286.4 mGycm, Automated exposure control for dose reduction was used. FINDINGS: No abnormal hyperdensity is present to suggest an acute intracranial hemorrhage. No mass lesion is evident. No acute infarcts are evident. Minimal periventricular white matter hypodensity is present, likely on the basis of chronic white matter ischemic changes Ventricles and sulci are appropriate for the patient age. Mucosal thickening is present to the sphenoid sinuses and ethmoid air cells frontal sinuses. Air-flui d levels or mucosal thickening within the maxillary sinuses. Correlate for pansinusitis. Mastoid air cells small amount of fluid on the right and within the inferior portions on the left. Bilateral mild mastoiditis should be considered. IMPRESSION: 1. No acute intracranial process. Follow up MRI can be performed as clinically indicated. 2. Minimal chronic appearing periventricular white matter ischemic changes. 3. Clinical correlation for pansinusitis with mild bilateral mastoiditis [facility], , 08/18/2024 6:36 PM
[2024-08-18 19:13] LABS: Glucose,Whole Blood 159 mg/dL (70-110)
[2024-08-18 23:36] LABS: Glucose,Whole Blood 189 mg/dL (70-110)
[2024-08-19 04:29] LABS: Anisocytosis Slight; Basophils % (A) 0 %; Eosinophils % (A) 0 %; HCT 38.1 % (39.0-53.0); HGB 11.2 gm/dL (13.0-17.5); Hypochromasia Marked; Lymphocytes # (A) 0.7 k/uL (1.0-4.8); Lymphocytes % (A) 6 %; MCH 22.3 pg (25.0-35.0); MCHC 29.5 g/dL (31.0-37.0); MCV 75.6 fL (80.0-100.0); Mean Platelet Volume 7.4; Microcytosis Slight; Monocytes # (A) 0.6 k/uL (0-1.0); Monocytes % (A) 5 %; Neutrophils # (A) 9.6 k/uL (1.3-7.7); Neutrophils % (A) 87 %; Platelet Count 572 k/uL (150-450); RBC 5.04 m/uL (4.30-5.90); RDW 16.4 % (11.5-15.5)
[2024-08-19 04:43] LABS: African American GFR (CKD) >90 (>60 ml/min/1.73 sqM); Anion Gap 8 mmol/L; Blood Urea Nitrogen 56 mg/dL (9-20); Calcium 9.5 mg/dL (8.4-10.2); Carbon Dioxide 34 mmol/L (22-30); Chloride 92 mmol/L (98-107); Glucose 231 mg/dL (74-99); Non-African American GFR(CKD) >90 (>60 ml/min/1.73 sqM); Potassium 3.4 mmol/L (3.5-5.1); Sodium 134 mmol/L (137-145)
[2024-08-19 05:07] LABS: Glucose,Whole Blood 231 mg/dL (70-110)
[2024-08-19 05:37] LABS: ABG Base Excess 9.8 mmol/L; ABG HCO3 34 mmol/L (21-25); ABG Oxygen Saturation 98.4 % (94-97); ABG PCO2 44 mmHg (35-45); ABG PO2 100 mmHg (83-108); ABG TCO2 35 mmol/L (19-24); Allen Test Performed? Yes
--- NOTE | 2024-08-19 08:51 | P.PN ---
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 Cardiac cath more than 10 years ago revealed no obstructive CAD. Plan is to continue current rate control and anticoagulation. No new suggestions from a cardiac standpoint. He has significant pulmonary hypertension chronic hypoxemia with obstructive sleep apnea. He also has diastolic heart failure.. 08/19/24: He remains on the ventilator but apparently after weaning the propofol he is responding. To me he opens his eyes not to commands it is spontaneously but I do not see a proper response to commands when asked to squeeze his hand. Remains in atrial fibrillation rate is in the 70s hemodynamically stable making decent amount of urine. Prognosis remains guarded no new suggestions same medical regimen no beta-blockers. PHYSICIAL EXAM: Vitals are stable he is in atrial fibrillation controlled rate JVD is evident S1-S2 heard normally with irregularity rhythm no significant murmurs lungs reveal a ventilator assisted breath sounds abdomen is soft lower extremities reveal bilateral mild to moderate edema diminished pulses Central nervous system assessment not performed. IMPRESSION: 1. Permanent atrial fibrillation with probable underlying sick sinus syndrome rate control is good no significant bradycardia. 2. History of obstructive sleep apnea with respiratory failure intubated on a ventilator. 3. History of CVA details unknown. 4. Morbid obesity and diastolic heart failure. 5.. RECOMMENDATIONS: Continue current therapy thyroid functions are normal no rate control agents needed continue Eliquis that he is getting. I will see him as needed. Please call if there is any question. Objective - Vital Signs Vital signs: Vital Signs Temp 98.8 F 08/19/24 08:00 Pulse 73 08/19/24 08:00 Resp 20 08/19/24 08:00 BP 133/87 08/18/24 15:00 Pulse Ox 97 08/19/24 08:00 FiO2 50 08/19/24 08:00 Intake & Output 08/18/24 08/19/24 08/19/24 18:59 06:59 18:59 Intake Total 543 766 106 Output Total 0480 1974 200 Balance -1127 -1208 -94 Weight 188.6 kg Intake: IV 143 156 26 KVO 110 120 20 Pressure Bag 33 36 6 Intake, IV Titration 100 Amount propofoL 1,000 mg In 100 Empty Bag 1 bag @ 20 MCG/ KG/MIN 25.855 mls/hr IV . Q3H53M COUNT INCLUDES THE [facility] Rx#:[id number] Tube Feeding 300 550 50 Other 60 30 Output: Urine 1670 1974 200 Other: Voiding Method Indwelling Catheter Indwelling Catheter ABP, PAP, CO, CI - Last Documented Arterial Blood Pressure 132/70 - Labs CBC & Chem 7: 08/19/24 04:18 08/19/24 04:18 Labs: Abnormal Lab Results - Last 24 Hours (Table) 08/18/24 08/18/24 08/18/24 Range/Units 11:39 19:12 23:34 WBC (3.8-10.6) k/uL Hgb (13.0-17.5) gm/dL Hct (39.0-53.0) % MCV (80.0-100.0) fL MCH (25.0-35.0) pg MCHC (31.0-37.0) g/dL RDW (11.5-15.5) % Plt Count (150-450) k/uL Neutrophils # (1.3-7.7) k/uL Lymphocytes # (1.0-4.8) k/uL ABG pH (7.35-7.45) ABG HCO3 (21-25) mmol/L ABG Total CO2 (19-24) mmol/L ABG O2 Saturation (94-97) % Hemoglobin (13.0-17.5) gm/dL Sodium (137-145) mmol/L Potassium (3.5-5.1) mmol/L Chloride (98-107) mmol/L Carbon Dioxide (22-30) mmol/L BUN (9-20) mg/dL Glucose (74-99) mg/dL POC Glucose (mg/dL) 186 H 159 H 189 H (70-110) mg/dL 08/19/24 08/19/24 08/19/24 Range/Units 04:18 04:18 05:06 WBC 11.0 H (3.8-10.6) k/uL Hgb 11.2 L (13.0-17.5) gm/dL Hct 38.1 L (39.0-53.0) % MCV 75.6 L (80.0-100.0) fL MCH 22.3 L (25.0-35.0) pg MCHC 29.5 L (31.0-37.0) g/dL RDW 16.4 H (11.5-15.5) % Plt Count 572 H (150-450) k/uL Neutrophils # 9.6 H (1.3-7.7) k/uL Lymphocytes # 0.7 L (1.0-4.8) k/uL ABG pH (7.35-7.45) ABG HCO3 (21-25) mmol/L ABG Total CO2 (19-24) mmol/L ABG O2 Saturation (94-97) % Hemoglobin (13.0-17.5) gm/dL Sodium 134 L (137-145) mmol/L Potassium 3.4 L (3.5-5.1) mmol/L Chloride 92 L (98-107) mmol/L Carbon Dioxide 34 H (22-30) mmol/L BUN 56 H (9-20) mg/dL Glucose 231 H (74-99) mg/dL POC Glucose (mg/dL) 231 H (70-110) mg/dL 08/19/24 Range/Units 05:28 WBC (3.8-10.6) k/uL Hgb (13.0-17.5) gm/dL Hct (39.0-53.0) % MCV (80.0-100.0) fL MCH (25.0-35.0) pg MCHC (31.0-37.0) g/dL RDW (11.5-15.5) % Plt Count (150-450) k/uL Neutrophils # (1.3-7.7) k/uL Lymphocytes # (1.0-4.8) k/uL ABG pH 7.50 H (7.35-7.45) ABG HCO3 34 H (21-25) mmol/L ABG Total CO2 35 H (19-24) mmol/L ABG O2 Saturation 98.4 H (94-97) % Hemoglobin 11.0 L (13.0-17.5) gm/dL Sodium (137-145) mmol/L Potassium (3.5-5.1) mmol/L Chloride (98-107) mmol/L Carbon Dioxide (22-30) mmol/L BUN (9-20) mg/dL Glucose (74-99) mg/dL POC Glucose (mg/dL) (70-110) mg/dL
--- NOTE | 2024-08-19 08:53 | XR ---
EXAMINATION TYPE: XR chest 1V portable DATE OF EXAM: 08/19/2024 4:59 AM COMPARISON: 08/18/2024 CLINICAL INDICATION: Male, 63 years old with history of Pt. on vent, difficulty breathing TECHNIQUE: XR chest 1V portable view(s) obtained. FINDINGS: The heart size is normal. The pulmonary vasculature is normal. Left lower lobe infiltrate is present. Tracheostomy tube has its tip in the midline. Nasogastric tube transverses the thorax. Left PICC line tip is in the superior vena cava region IMPRESSION: 1. Left lower lobe infiltrate. Correlate for atelectasis and pneumonia. Findings are worsening. 2. Lines and catheters discussed above [facility], Workstation: [id number], 08/19/2024 8:51 AM
--- NOTE | 2024-08-19 11:32 | P.PN ---
Subjective Progress Note Date: 08/19/24 Following up with the patient and I spoke with ICU team and it seems the patient condition is improving today compared to yesterday. Sedation (IV Propofol) is held. Objective - Vital Signs Vital signs: Vital Signs Temp 98.8 F 08/19/24 08:00 Pulse 60 08/19/24 11:00 Resp 20 08/19/24 11:00 BP 133/87 08/18/24 15:00 Pulse Ox 97 08/19/24 11:00 FiO2 50 08/19/24 09:05 Intake & Output 08/18/24 08/19/24 08/19/24 18:59 06:59 18:59 Intake Total 543 766 295 Output Total 1670 1974 650 Balance -1127 -1208 -355 Weight 188.6 kg 188.6 kg Intake: IV 143 156 65 KVO 110 120 50 Pressure Bag 33 36 15 Intake, IV Titration 100 Amount propofoL 1,000 mg In 100 Empty Bag 1 bag @ 20 MCG/ KG/MIN 25.855 mls/hr IV . Q3H53M [facility] Rx#:[id number] Tube Feeding 300 550 200 Other 60 30 Output: Urine 1670 1974 650 Other: Voiding Method Indwelling Catheter Indwelling Catheter ABP, PAP, CO, CI - Last Documented Arterial Blood Pressure 157/86 - Exam General: Patient is obese gentleman and does not appear in acute distress. Lung: Patient is intubated on the ventilator Neuro: Limited. IV Propfol is held today. Patient is severely drowsy but is awake able to voice. He opens his eyes. He will attempt to spontaneously lift up the right upper extremity. Pupils are about 5 mm, round and reactive to light. - Labs CBC & Chem 7: 08/19/24 04:18 08/19/24 04:18 Labs: Abnormal Lab Results - Last 24 Hours (Table) 08/18/24 08/18/24 08/18/24 Range/Units 11:39 19:12 23:34 WBC (3.8-10.6) k/uL Hgb (13.0-17.5) gm/dL Hct (39.0-53.0) % MCV (80.0-100.0) fL MCH (25.0-35.0) pg MCHC (31.0-37.0) g/dL RDW (11.5-15.5) % Plt Count (150-450) k/uL Neutrophils # (1.3-7.7) k/uL Lymphocytes # (1.0-4.8) k/uL ABG pH (7.35-7.45) ABG HCO3 (21-25) mmol/L ABG Total CO2 (19-24) mmol/L ABG O2 Saturation (94-97) % Hemoglobin (13.0-17.5) gm/dL Sodium (137-145) mmol/L Potassium (3.5-5.1) mmol/L Chloride (98-107) mmol/L Carbon Dioxide (22-30) mmol/L BUN (9-20) mg/dL Glucose (74-99) mg/dL POC Glucose (mg/dL) 186 H 159 H 189 H (70-110) mg/dL 08/19/24 08/19/24 08/19/24 Range/Units 04:18 04:18 05:06 WBC 11.0 H (3.8-10.6) k/uL Hgb 11.2 L (13.0-17.5) gm/dL Hct 38.1 L (39.0-53.0) % MCV 75.6 L (80.0-100.0) fL MCH 22.3 L (25.0-35.0) pg MCHC 29.5 L (31.0-37.0) g/dL RDW 16.4 H (11.5-15.5) % Plt Count 572 H (150-450) k/uL Neutrophils # 9.6 H (1.3-7.7) k/uL Lymphocytes # 0.7 L (1.0-4.8) k/uL ABG pH (7.35-7.45) ABG HCO3 (21-25) mmol/L ABG Total CO2 (19-24) mmol/L ABG O2 Saturation (94-97) % Hemoglobin (13.0-17.5) gm/dL Sodium 134 L (137-145) mmol/L Potassium 3.4 L (3.5-5.1) mmol/L Chloride 92 L (98-107) mmol/L Carbon Dioxide 34 H (22-30) mmol/L BUN 56 H (9-20) mg/dL Glucose 231 H (74-99) mg/dL POC Glucose (mg/dL) 231 H (70-110) mg/dL 08/19/24 Range/Units 05:28 WBC (3.8-10.6) k/uL Hgb (13.0-17.5) gm/dL Hct (39.0-53.0) % MCV (80.0-100.0) fL MCH (25.0-35.0) pg MCHC (31.0-37.0) g/dL RDW (11.5-15.5) % Plt Count (150-450) k/uL Neutrophils # (1.3-7.7) k/uL Lymphocytes # (1.0-4.8) k/uL ABG pH 7.50 H (7.35-7.45) ABG HCO3 34 H (21-25) mmol/L ABG Total CO2 35 H (19-24) mmol/L ABG O2 Saturation 98.4 H (94-97) % Hemoglobin 11.0 L (13.0-17.5) gm/dL Sodium (137-145) mmol/L Potassium (3.5-5.1) mmol/L Chloride (98-107) mmol/L Carbon Dioxide (22-30) mmol/L BUN (9-20) mg/dL Glucose (74-99) mg/dL POC Glucose (mg/dL) (70-110) mg/dL Assessment and Plan Assessment: * Altered mental status, likely due to hypoxic/toxic metabolic encephalopathy. Patient was found unresponsive at the facility, with saturation of 70%--slightly improving today and opens eyes and lifts the right upper extremity * Acute COVID-19 pneumonia. Chest x-ray showing bilateral infiltrates. 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 Some sporadic normal appearing background was also seen, which may pertain to better prognosis. However clinical correlation and follow-up EEG strongly recommended. * Repeat EEG on 08/17/2024: Is abnormal. The background slowing is suggestive of severe encephalopathy likely due to toxic metabolic derangement. Otherwise there is no focal slowing, epileptiform discharge or seizure. * Repeat CT head: No acute intracranial process. * Recommend avoiding sedation for at least 48 hours to assess patient's overall neurological condition. Please avoid any sedation or opiate * Is on Keppra down to 750 mg twice daily. Recommend down the line once the patient is more awake responsive of going down on the Keppra. * Continue Eliquis for atrial fibrillation. * Patient on Zosyn. * Other medical management as per IM and critical care. Plan is discussed with her nurse and ICU attending. Will follow-up with the patient sporadically. Dr. Clemons will resume neurology service tomorrow A.M. if needed and Dr. Geiger will resume neurology service on 08/22/2024 AM Time with Patient: Less than 30
[2024-08-19 11:47] LABS: Glucose,Whole Blood 245 mg/dL (70-110)
--- NOTE | 2024-08-19 12:11 | P.PN ---
Subjective Progress Note Date: 08/19/24 SURGICAL PROGRESS NOTE CHIEF COMPLAINT: Respiratory failure HISTORY OF PRESENT ILLNESS: Patient remains in the ICU intubated and on mechanical ventilation. Patient was unable to have PEG tube placed yesterday due to the abdominal wall being very thick and the light reflex could not be seen. Afebrile. WBC 11 Hgb 11.2 platelets 572 PHYSICAL EXAM: VITAL SIGNS: Reviewed. GENERAL: no acute distress. Intubated HEENT: Tracheostomy site clean dry and intact ABDOMEN: Soft. Obese. Nondistended. Nontender. ASSESSMENT: 1. Acute hypoxic respiratory failure unable to wean from vent 2. Severe protein calorie malnutrition PLAN: -If patient needs feeding tube placed it will have to be an open gastrostomy tube placement -Surgical service will remain on standby Physician Wired Music Operator note has been reviewed by physician. Signing provider agrees with the documented findings, assessment, and plan of care. Objective - Vital Signs Vital signs: Vital Signs Temp 98.8 F 08/19/24 08:00 Pulse 60 08/19/24 11:00 Resp 20 08/19/24 11:00 BP 133/87 08/18/24 15:00 Pulse Ox 97 08/19/24 11:00 FiO2 50 08/19/24 11:33 Intake & Output 08/18/24 08/19/24 08/19/24 18:59 06:59 18:59 Intake Total 543 766 295 Output Total 1670 1974 650 Balance -1127 -1208 -355 Weight 188.6 kg 188.6 kg Intake: IV 143 156 65 KVO 110 120 50 Pressure Bag 33 36 15 Intake, IV Titration 100 Amount propofoL 1,000 mg In 100 Empty Bag 1 bag @ 20 MCG/ KG/MIN 25.855 mls/hr IV . Q3H53M [facility] Rx#:[id number] Tube Feeding 300 550 200 Other 60 30 Output: Urine 1670 1974 650 Other: Voiding Method Indwelling Catheter Indwelling Catheter ABP, PAP, CO, CI - Last Documented Arterial Blood Pressure 157/86 - Labs CBC & Chem 7: 08/19/24 04:18 08/19/24 04:18 Labs: Abnormal Lab Results - Last 24 Hours (Table) 08/18/24 08/18/24 08/19/24 Range/Units 19:12 23:34 04:18 WBC 11.0 H (3.8-10.6) k/uL Hgb 11.2 L (13.0-17.5) gm/dL Hct 38.1 L (39.0-53.0) % MCV 75.6 L (80.0-100.0) fL MCH 22.3 L (25.0-35.0) pg MCHC 29.5 L (31.0-37.0) g/dL RDW 16.4 H (11.5-15.5) % Plt Count 572 H (150-450) k/uL Neutrophils # 9.6 H (1.3-7.7) k/uL Lymphocytes # 0.7 L (1.0-4.8) k/uL ABG pH (7.35-7.45) ABG HCO3 (21-25) mmol/L ABG Total CO2 (19-24) mmol/L ABG O2 Saturation (94-97) % Hemoglobin (13.0-17.5) gm/dL Sodium (137-145) mmol/L Potassium (3.5-5.1) mmol/L Chloride (98-107) mmol/L Carbon Dioxide (22-30) mmol/L BUN (9-20) mg/dL Glucose (74-99) mg/dL POC Glucose (mg/dL) 159 H 189 H (70-110) mg/dL 08/19/24 08/19/24 08/19/24 Range/Units 04:18 05:06 05:28 WBC (3.8-10.6) k/uL Hgb (13.0-17.5) gm/dL Hct (39.0-53.0) % MCV (80.0-100.0) fL MCH (25.0-35.0) pg MCHC (31.0-37.0) g/dL RDW (11.5-15.5) % Plt Count (150-450) k/uL Neutrophils # (1.3-7.7) k/uL Lymphocytes # (1.0-4.8) k/uL ABG pH 7.50 H (7.35-7.45) ABG HCO3 34 H (21-25) mmol/L ABG Total CO2 35 H (19-24) mmol/L ABG O2 Saturation 98.4 H (94-97) % Hemoglobin 11.0 L (13.0-17.5) gm/dL Sodium 134 L (137-145) mmol/L Potassium 3.4 L (3.5-5.1) mmol/L Chloride 92 L (98-107) mmol/L Carbon Dioxide 34 H (22-30) mmol/L BUN 56 H (9-20) mg/dL Glucose 231 H (74-99) mg/dL POC Glucose (mg/dL) 231 H (70-110) mg/dL 08/19/24 Range/Units 11:45 WBC (3.8-10.6) k/uL Hgb (13.0-17.5) gm/dL Hct (39.0-53.0) % MCV (80.0-100.0) fL MCH (25.0-35.0) pg MCHC (31.0-37.0) g/dL RDW (11.5-15.5) % Plt Count (150-450) k/uL Neutrophils # (1.3-7.7) k/uL Lymphocytes # (1.0-4.8) k/uL ABG pH (7.35-7.45) ABG HCO3 (21-25) mmol/L ABG Total CO2 (19-24) mmol/L ABG O2 Saturation (94-97) % Hemoglobin (13.0-17.5) gm/dL Sodium (137-145) mmol/L Potassium (3.5-5.1) mmol/L Chloride (98-107) mmol/L Carbon Dioxide (22-30) mmol/L BUN (9-20) mg/dL Glucose (74-99) mg/dL POC Glucose (mg/dL) 245 H (70-110) mg/dL
--- NOTE | 2024-08-19 12:53 | P.PN ---
Subjective Progress Note Date: 08/17/24 Principal diagnosis: Reason for follow-up is pneumonia Patient is a 63-year-old male with a past medical history significant for diabetes mellitus hypertension hyperlipidemia atrial fibrillation sleep apnea patient has been brought to the hospital in respiratory distress, patient noted to be at has been reviewed the ICU tested positive for COVID subsequently did have persistent fever and white count concerning for possible aspiration pneumonia prompting this consultation. On today's evaluation that is 08/17/2024,the patient continues to be afebrile patient remains to be debated on the vent FiO2 is very stable to 50% no significant purulent secretion through the ET diarrhea and the changes reported by the nursing staff. Patient white normal at 8.6 creatinine 0.75 culture from the right groin and catheter so far negative Objective - Vital Signs Vital signs: Vital Signs Temp 97.2 F L 08/17/24 12:00 Pulse 60 08/17/24 12:00 Resp 20 08/17/24 12:00 BP 109/84 08/17/24 07:00 Pulse Ox 97 08/17/24 12:00 FiO2 60 08/17/24 12:00 Intake & Output 08/16/24 08/17/24 08/17/24 18:59 06:59 18:59 Intake Total 1526.464 431.424 115 Output Total 2555 1775 730 Balance -1028.536 -1343.576 -615 Weight 193.956 kg 193.956 kg Intake: IV 39 15 Pressure Bag 39 15 Intake, IV Titration 597.464 171.424 100 Amount propofoL 1,000 mg In 597.464 171.424 100 Empty Bag 1 bag @ 20 MCG/ KG/MIN 25.855 mls/hr IV . Q3H53M [facility] Rx#:[id number] Tube Feeding 800 250 0 Other 90 10 0 Output: Urine 2555 1775 730 Other: Voiding Method Indwelling Catheter Indwelling Catheter Indwelling Catheter # Bowel Movements 0 2 ABP, PAP, CO, CI - Last Documented Arterial Blood Pressure 142/92 - Exam GENERAL DESCRIPTION: Middle-age man intubated on the vent RESPIRATORY SYSTEM: Unlabored breathing , decreased breath sounds at bases HEART: S1 S2 regular rate and rhythm , ABDOMEN: Soft , mild distention EXTREMITIES: Swelling to the leg no redness - Labs CBC & Chem 7: 08/19/24 04:18 08/19/24 04:18 Labs: Abnormal Lab Results - Last 24 Hours (Table) 08/16/24 08/16/24 08/17/24 Range/Units 17:56 23:39 04:30 RBC 4.26 L (4.30-5.90) m/uL Hgb 9.7 L (13.0-17.5) gm/dL Hct 32.3 L (39.0-53.0) % MCV 75.8 L (80.0-100.0) fL MCH 22.8 L (25.0-35.0) pg MCHC 30.0 L (31.0-37.0) g/dL RDW 16.5 H (11.5-15.5) % Plt Count 539 H (150-450) k/uL Lymphocytes # 0.9 L (1.0-4.8) k/uL ABG pH (7.35-7.45) ABG pO2 (83-108) mmHg ABG HCO3 (21-25) mmol/L ABG Total CO2 (19-24) mmol/L ABG O2 Saturation (94-97) % Hemoglobin (13.0-17.5) gm/dL Sodium (137-145) mmol/L Chloride (98-107) mmol/L Carbon Dioxide (22-30) mmol/L BUN (9-20) mg/dL Glucose (74-99) mg/dL POC Glucose (mg/dL) 350 H 313 H (70-110) mg/dL 08/17/24 08/17/24 08/17/24 Range/Units 04:30 04:44 05:25 RBC (4.30-5.90) m/uL Hgb (13.0-17.5) gm/dL Hct (39.0-53.0) % MCV (80.0-100.0) fL MCH (25.0-35.0) pg MCHC (31.0-37.0) g/dL RDW (11.5-15.5) % Plt Count (150-450) k/uL Lymphocytes # (1.0-4.8) k/uL ABG pH 7.50 H (7.35-7.45) ABG pO2 113 H (83-108) mmHg ABG HCO3 33 H (21-25) mmol/L ABG Total CO2 34 H (19-24) mmol/L ABG O2 Saturation 99.2 H (94-97) % Hemoglobin 9.6 L (13.0-17.5) gm/dL Sodium 134 L (137-145) mmol/L Chloride 91 L (98-107) mmol/L Carbon Dioxide 34 H (22-30) mmol/L BUN 47 H (9-20) mg/dL Glucose 253 H (74-99) mg/dL POC Glucose (mg/dL) 241 H (70-110) mg/dL 08/17/24 Range/Units 11:59 RBC (4.30-5.90) m/uL Hgb (13.0-17.5) gm/dL Hct (39.0-53.0) % MCV (80.0-100.0) fL MCH (25.0-35.0) pg MCHC (31.0-37.0) g/dL RDW (11.5-15.5) % Plt Count (150-450) k/uL Lymphocytes # (1.0-4.8) k/uL ABG pH (7.35-7.45) ABG pO2 (83-108) mmHg ABG HCO3 (21-25) mmol/L ABG Total CO2 (19-24) mmol/L ABG O2 Saturation (94-97) % Hemoglobin (13.0-17.5) gm/dL Sodium (137-145) mmol/L Chloride (98-107) mmol/L Carbon Dioxide (22-30) mmol/L BUN (9-20) mg/dL Glucose (74-99) mg/dL POC Glucose (mg/dL) 240 H (70-110) mg/dL Microbiology - Last 24 Hours (Table) 08/15/24 15:30 Catheter Tip Culture - Final Catheter Tip Assessment and Plan (1) Pneumonia Current Visit: Yes Status: Acute Code(s): J18.9 - PNEUMONIA, UNSPECIFIED ORGANISM SNOMED Code(s): 696192758 (2) COVID-19 Current Visit: Yes Status: Acute Code(s): U07.1 - COVID-19 SNOMED Code(s): 471418906 Plan: 1patient presented to hospital about 5 days before initial evaluation in this patient came with acute respiratory failure requiring intubation patient did have features of sepsis as the patient did have fever elevated white count and tachycardia though tested positive for COVID-19 and did have procalcitonin 0.22 on admission and antibiotics not started initially however has been started yesterday and the patient feel better and seem to improving highly concerning for secondary bacterial pneumonia responsible for his fever and elevated white count 2-blood and sputum culture have been negative so far 3-patient did have resolution of his fever and white count has normalized, Zosyn has been discontinued as oF 08/14/2024 the patient is seen and doing well off antibiotics 4femoral central line has been discontinued catheter tip has been sent for the culture which are so far negative, continue current wound care with the [facility] followed by moist dressing Dictation was produced using [employer] dictation software. please excuse any grammatical, word or spelling errors. Time with Patient: Less than 30
--- NOTE | 2024-08-19 12:54 | P.PN ---
Subjective Progress Note Date: 08/18/24 Principal diagnosis: Reason for follow-up is pneumonia Patient is a 63-year-old male with a past medical history significant for diabetes mellitus hypertension hyperlipidemia atrial fibrillation sleep apnea patient has been brought to the hospital in respiratory distress, patient noted to be at has been reviewed the ICU tested positive for COVID subsequently did have persistent fever and white count concerning for possible aspiration pneumonia prompting this consultation. On today's evaluation that is Patient is status post tracheostomy completed on 08/17/2024, attempted PEG tube placement which could not be placed because of morbid obesity and very thick abdominal wall. On today's evaluation that is 08/18/2024,the patient remains to be afebrile, patient is on ventilator through the trach patient is hemodynamically stable not requiring pressor support, will evaluate the changes reported by the nursing staff. Patient white count is 11.1, creatinine is 0.80 Objective - Vital Signs Vital signs: Vital Signs Temp 97.2 F L 08/18/24 08:00 Pulse 75 08/18/24 10:00 Resp 16 08/18/24 10:00 BP 117/88 08/18/24 09:00 Pulse Ox 98 08/18/24 10:00 FiO2 50 08/18/24 08:21 Intake & Output 08/17/24 08/18/24 08/18/24 18:59 06:59 18:59 Intake Total 410.779 495.216 9 Output Total 1170 1390 745 Balance -759.221 -894.784 -736 Weight 193.956 kg 195.7 kg Intake: IV 133 3 9 Pressure Bag 33 3 9 Intake, IV Titration 277.779 292.216 Amount Potassium Chloride 20 meq 100 In Water For Injection 1 100ml.bag @ 50 mls/hr IVPB Q2H [facility] Rx#: [id number] propofoL 1,000 mg In 277.779 192.216 Empty Bag 1 bag @ 20 MCG/ KG/MIN 25.855 mls/hr IV . Q3H53M [facility] Rx#:[id number] Tube Feeding 0 200 0 Other 0 Output: Urine 1165 1390 745 Estimated Blood Loss 5 Other: Voiding Method Indwelling Catheter Indwelling Catheter Indwelling Catheter ABP, PAP, CO, CI - Last Documented Arterial Blood Pressure 160/93 - Exam GENERAL DESCRIPTION: Middle-age man intubated through the trach on the vent RESPIRATORY SYSTEM: Unlabored breathing , decreased breath sounds at bases HEART: S1 S2 regular rate and rhythm , ABDOMEN: Soft , mild distention EXTREMITIES: Right groin wound with slough tissue no significant surrounding redness - Labs CBC & Chem 7: 08/19/24 04:18 08/19/24 04:18 Labs: Abnormal Lab Results - Last 24 Hours (Table) 08/17/24 08/17/24 08/17/24 Range/Units 11:59 17:25 23:41 WBC (3.8-10.6) k/uL Hgb (13.0-17.5) gm/dL Hct (39.0-53.0) % MCV (80.0-100.0) fL MCH (25.0-35.0) pg MCHC (31.0-37.0) g/dL RDW (11.5-15.5) % Plt Count (150-450) k/uL Neutrophils # (1.3-7.7) k/uL ABG pH (7.35-7.45) ABG pO2 (83-108) mmHg ABG HCO3 (21-25) mmol/L ABG Total CO2 (19-24) mmol/L Hemoglobin (13.0-17.5) gm/dL Sodium (137-145) mmol/L Potassium (3.5-5.1) mmol/L Chloride (98-107) mmol/L Carbon Dioxide (22-30) mmol/L BUN (9-20) mg/dL Glucose (74-99) mg/dL POC Glucose (mg/dL) 240 H 220 H 233 H (70-110) mg/dL 08/18/24 08/18/24 08/18/24 Range/Units 03:30 03:30 05:52 WBC 11.1 H (3.8-10.6) k/uL Hgb 10.3 L (13.0-17.5) gm/dL Hct 34.7 L (39.0-53.0) % MCV 75.7 L (80.0-100.0) fL MCH 22.5 L (25.0-35.0) pg MCHC 29.7 L (31.0-37.0) g/dL RDW 16.4 H (11.5-15.5) % Plt Count 512 H (150-450) k/uL Neutrophils # 9.5 H (1.3-7.7) k/uL ABG pH (7.35-7.45) ABG pO2 (83-108) mmHg ABG HCO3 (21-25) mmol/L ABG Total CO2 (19-24) mmol/L Hemoglobin (13.0-17.5) gm/dL Sodium 134 L (137-145) mmol/L Potassium 3.2 L (3.5-5.1) mmol/L Chloride 91 L (98-107) mmol/L Carbon Dioxide 35 H (22-30) mmol/L BUN 53 H (9-20) mg/dL Glucose 209 H (74-99) mg/dL POC Glucose (mg/dL) 193 H (70-110) mg/dL 08/18/24 Range/Units 06:04 WBC (3.8-10.6) k/uL Hgb (13.0-17.5) gm/dL Hct (39.0-53.0) % MCV (80.0-100.0) fL MCH (25.0-35.0) pg MCHC (31.0-37.0) g/dL RDW (11.5-15.5) % Plt Count (150-450) k/uL Neutrophils # (1.3-7.7) k/uL ABG pH 7.52 H (7.35-7.45) ABG pO2 77 L (83-108) mmHg ABG HCO3 33 H (21-25) mmol/L ABG Total CO2 35 H (19-24) mmol/L Hemoglobin 9.8 L (13.0-17.5) gm/dL Sodium (137-145) mmol/L Potassium (3.5-5.1) mmol/L Chloride (98-107) mmol/L Carbon Dioxide (22-30) mmol/L BUN (9-20) mg/dL Glucose (74-99) mg/dL POC Glucose (mg/dL) (70-110) mg/dL Microbiology - Last 24 Hours (Table) 08/15/24 15:30 Catheter Tip Culture - Final Catheter Tip Assessment and Plan (1) Pneumonia Current Visit: Yes Status: Acute Code(s): J18.9 - PNEUMONIA, UNSPECIFIED ORGANISM SNOMED Code(s): 417550422 (2) COVID-19 Current Visit: Yes Status: Acute Code(s): U07.1 - COVID-19 SNOMED Code(s): 315581750 Plan: 1patient presented to hospital about 5 days before initial evaluation in this patient came with acute respiratory failure requiring intubation patient did have features of sepsis as the patient did have fever elevated white count and tachycardia though tested positive for COVID-19 and did have procalcitonin 0.22 on admission and antibiotics not started initially however has been started yesterday and the patient feel better and seem to improving highly concerning for secondary bacterial pneumonia responsible for his fever and elevated white count 2-blood and sputum culture have been negative so far 3-patient did have resolution of his fever and white count has normalized, Zosyn has been discontinued as oF 08/14/2024 the patient is seen and doing well off an tibiotics 4femoral central line has been discontinued catheter tip has been sent for the culture as well as local culture will continue current wound care with the [facility] Dictation was produced using [employer] dictation software. please excuse any grammatical, word or spelling errors. Time with Patient: Less than 30
--- NOTE | 2024-08-19 12:55 | P.PN ---
Subjective Progress Note Date: 08/19/24 Principal diagnosis: Reason for follow-up is pneumonia Patient is a 63-year-old male with a past medical history significant for diabetes mellitus hypertension hyperlipidemia atrial fibrillation sleep apnea patient has been brought to the hospital in respiratory distress, patient noted to be at has been reviewed the ICU tested positive for COVID subsequently did have persistent fever and white count concerning for possible aspiration pneumonia prompting this consultation. On today's evaluation that is Patient is status post tracheostomy completed on 08/17/2024, attempted PEG tube placement which could not be placed because of morbid obesity and very thick abdominal wall. On today's evaluation that is 08/19/2024, the patient has been afebrile, the patient is on ventilator through the trach FiO2 is currently stable at 50% no significant purulent secretion through the ET area which is reported by the nursing staff. Patient white count is 11,000, creatinine is 0.81 culture from the right groin and catheter has been negative Objective - Vital Signs Vital signs: Vital Signs Temp 37.1 F L 08/19/24 12:00 Pulse 75 08/19/24 12:00 Resp 20 08/19/24 12:00 BP 133/87 08/18/24 15:00 Pulse Ox 97 08/19/24 12:00 FiO2 50 08/19/24 12:00 Intake & Output 08/18/24 08/19/24 08/19/24 18:59 06:59 18:59 Intake Total 543 766 363 Output Total 1670 1974 875 Balance -1127 -1208 -512 Weight 188.6 kg 188.6 kg Intake: IV 143 156 78 KVO 110 120 60 Pressure Bag 33 36 18 Intake, IV Titration 100 Amount propofoL 1,000 mg In 100 Empty Bag 1 bag @ 20 MCG/ KG/MIN 25.855 mls/hr IV . Q[facility]H53[facility] Rx#:[id number] Tube Feeding 300 550 255 Other 60 30 Output: Urine 1670 1974 875 Other: Voiding Method Indwelling Catheter Indwelling Catheter Indwelling Catheter ABP, PAP, CO, CI - Last Documented Arterial Blood Pressure 130/78 - Exam GENERAL DESCRIPTION: Middle-age man intubated through the trach on the vent RESPIRATORY SYSTEM: Unlabored breathing , decreased breath sounds at bases HEART: S1 S2 regular rate and rhythm , ABDOMEN: Soft , mild distention EXTREMITIES: Right groin wound currently dressed - Labs CBC & Chem 7: 08/19/24 04:18 08/19/24 04:18 Labs: Abnormal Lab Results - Last 24 Hours (Table) 08/18/24 08/18/24 08/19/24 Range/Units 19:12 23:34 04:18 WBC 11.0 H (3.8-10.6) k/uL Hgb 11.2 L (13.0-17.5) gm/dL Hct 38.1 L (39.0-53.0) % MCV 75.6 L (80.0-100.0) fL MCH 22.3 L (25.0-35.0) pg MCHC 29.5 L (31.0-37.0) g/dL RDW 16.4 H (11.5-15.5) % Plt Count 572 H (150-450) k/uL Neutrophils # 9.6 H (1.3-7.7) k/uL Lymphocytes # 0.7 L (1.0-4.8) k/uL ABG pH (7.35-7.45) ABG HCO3 (21-25) mmol/L ABG Total CO2 (19-24) mmol/L ABG O2 Saturation (94-97) % Hemoglobin (13.0-17.5) gm/dL Sodium (137-145) mmol/L Potassium (3.5-5.1) mmol/L Chloride (98-107) mmol/L Carbon Dioxide (22-30) mmol/L BUN (9-20) mg/dL Glucose (74-99) mg/dL POC Glucose (mg/dL) 159 H 189 H (70-110) mg/dL 08/19/24 08/19/24 08/19/24 Range/Units 04:18 05:06 05:28 WBC (3.8-10.6) k/uL Hgb (13.0-17.5) gm/dL Hct (39.0-53.0) % MCV (80.0-100.0) fL MCH (25.0-35.0) pg MCHC (31.0-37.0) g/dL RDW (11.5-15.5) % Plt Count (150-450) k/uL Neutrophils # (1.3-7.7) k/uL Lymphocytes # (1.0-4.8) k/uL ABG pH 7.50 H (7.35-7.45) ABG HCO3 34 H (21-25) mmol/L ABG Total CO2 35 H (19-24) mmol/L ABG O2 Saturation 98.4 H (94-97) % Hemoglobin 11.0 L (13.0-17.5) gm/dL Sodium 134 L (137-145) mmol/L Potassium 3.4 L (3.5-5.1) mmol/L Chloride 92 L (98-107) mmol/L Carbon Dioxide 34 H (22-30) mmol/L BUN 56 H (9-20) mg/dL Glucose 231 H (74-99) mg/dL POC Glucose (mg/dL) 231 H (70-110) mg/dL 08/19/24 Range/Units 11:45 WBC (3.8-10.6) k/uL Hgb (13.0-17.5) gm/dL Hct (39.0-53.0) % MCV (80.0-100.0) fL MCH (25.0-35.0) pg MCHC (31.0-37.0) g/dL RDW (11.5-15.5) % Plt Count (150-450) k/uL Neutrophils # (1.3-7.7) k/uL Lymphocytes # (1.0-4.8) k/uL ABG pH (7.35-7.45) ABG HCO3 (21-25) mmol/L ABG Total CO2 (19-24) mmol/L ABG O2 Saturation (94-97) % Hemoglobin (13.0-17.5) gm/dL Sodium (137-145) mmol/L Potassium (3.5-5.1) mmol/L Chloride (98-107) mmol/L Carbon Dioxide (22-30) mmol/L BUN (9-20) mg/dL Glucose (74-99) mg/dL POC Glucose (mg/dL) 245 H (70-110) mg/dL Assessment and Plan (1) Pneumonia Current Visit: Yes Status: Acute Code(s): J18.9 - PNEUMONIA, UNSPECIFIED ORGANISM SNOMED Code(s): 804476940 (2) COVID-19 Current Visit: Yes Status: Acute Code(s): U07.1 - COVID-19 SNOMED Code(s): 034029837 Plan: 1patient presented to hospital about 5 days before initial evaluation in this patient came with acute respiratory failure requiring intubation patient did have features of sepsis as the patient did have fever elevated white count and tachycardia though tested positive for COVID-19 and did have procalcitonin 0.22 on admission and antibiotics not started initially however has been started yesterday and the patient feel better and seem to improving highly concerning for secondary bacterial pneumonia responsible for his fever and elevated white count 2-blood and sputum culture have been negative so far 3-patient did have resolution of his fever and white count has normalized, Zosyn has been discontinued as oF 08/14/2024 the patient is seen and doing well off antibiotics 4patient right femoral central line has been discontinued catheter tip as well as local culture will continue current wound care with the [facility] and no need for any systemic antibiotic therapy at this point Dictation was produced using [employer] dictation software. please excuse any grammatical, word or spelling errors.
--- NOTE | 2024-08-19 14:08 | P.PN ---
Subjective Progress Note Date: 08/19/24 Principal diagnosis: Acute hypoxic respiratory failure, multifactorial On 08/08/2024, the patient is being seen in follow-up in the intensive care unit. This is a morbidly obese 63-year-old male patient who is currently intubated on the mechanical ventilator. Initially presented to us on 08/05/2024 for respiratory distress and the patient became unresponsive. He is known to have morbid obesity, COPD, chronic A-fib, CVA, hypertension hyperlipidemia. He resides in a [place] [facility] and the patient was found to be unresponsive and not breathing properly. His pulse ox was also very low and the patient was hypotensive and minimally responsive. He came into the emergency department where he was intubated and placed on the mechanical ventilator. Since admission, the patient was found to be COVID-19 positive. He had a follow-up chest x-ray today that shows significant rotation, ET tube is probably 1 cm above the damian and there is evidence of left lower lobe consolidati on/effusion. Noted at the time of admission, he had also a right upper lobe consolidation in addition to left lower lobe consolidation. Sputum samples have been negative as collected on 08/05/2024 and blood cultures been also negative. No significant leukocytosis. The patient is currently on no antibiotics. The patient is on propofol which is running at 30 mcg/kg/min, and is also on fentanyl at 1 mcg/kg/h.. The patient is on assist-control mode of mechanical ventilation at rate of 20, tidal volume of 500, FiO2 of 60 % with a PEEP of 10. Blood gases from today shows a pH of 7.46 with a pCO2 of 51 and pO2 of 69 and this was an FiO2 of 60%. The patient is on lactated Ringer at rate of 75 cc an hour. The patient receiving vital high-protein at rate of 55 cc an hour. He remains in atrial fibrillation with rapid ventricular response. He is off Cardizem drip . He is also on metoprolol 12.5 mg twice a day and anticoagulation with Eliquis 5 mg p.o. twice a day. He is on Levemir insulin 15 units at bedtime. Earlier this morning, the patient noted to have episodic generalized tonic-clonic seizure-like activity. The patient was kept on propofol. He was given Ativan 2 mg IV push x 2 and started on Keppra. CAT scan of the brain is to follow. EEG is to follow. Neurology consultation is to follow. The patient is on lactated Ringer at rate of 75 cc an hour. Norepinephrine was also started this morning and is currently running at 0.03 mcg/kg/min. He is on EN , vital HP at 35 cc/hr On 08/09/2024, the patient is being seen for a follow-up. The patient remains intubated on the mechanical ventilator. This morning, the patient is on propofol which is running at 15 mcg/kg/min. Noted the propofol rate was gradually reduced as of yesterday and the fentanyl has been discontinued. Overnight, the patient continued to have bradycardic events and the heart rate was dropping as low as in the 40s and the rhythm remains atrial fibrillation. The patient was taken off the beta-blockers. The patient this morning is on assist-control mode of mechanical ventilation at rate of 20, tidal volume of 500, FiO2 of 60% with a PEEP of 5. Blood gas showed a pH of 7.51 with a pCO2 of 43 and pO2 of 64. Chest x-ray showing bilateral airspace disease, worse on the right essentially involving the lung bases. The patient is currently on no pressors. The patient remains on vital high-protein at rate of 45 cc an hour. No further seizure activity has been noted. The patient remains on IV Keppra. EEG showed encephalopathy without any seizure activity. Neurology on the case. The patient remains on IV Zosyn. The patient continues to have significant amount of edema in all 4 extremities and the patient remains on IV Lasix 40 mg every 12 hours. Fluid balance is +180 cc over the past 24 hours. Repeat cultures were sent and the results are still pending. The patient remains on anticoagulation with Eliquis regarding chronic atrial fibrillation. Cardizem drip is off. Metoprolol is currently on hold. On 08/10/2024, the patient is being seen for a follow-up. This morning, the patient is on propofol running at 20 mcg/kg/min. Remains deeply sedated. He is morbidly obese and he remains on the mechanical ventilator due to hypoxic/hypercapnic respiratory failure. This morning, he is on assist-control mode with rate of 20, tidal volume of 500, FiO2 is at 80% with a PEEP of 14. pH is 7.47 with a pCO2 of 44 and pO2 of 67. Chest x-ray shows bilateral pleural effusions and an area of dense consolidation in left upper lobe. There are signs of fluid overload as the patient continues to have extensive edema in all 4 extremities. He is on IV Lasix. Fluid balance is -1.5 L over the past 24 hours. The patient remains on IV Zosyn as an empiric antibiotic coverage. No pressors. No seizure activity and the patient remains on IV Keppra. EEG showed no evidence of any ongoing seizure activity. Remains on vital high-protein at rate of 45 cc an hour and the patient is on Levemir insulin 15 units twice a day. Blood work showed a white cell count of 6.8 with a hemoglobin 9.3 and a platelet count of 310. Sodium level is at 137, BUN is 25 with a creatinine of 0.8 and a potassium level is at 3.8. Procalcitonin level is at 0.48. The patient is afebrile. Hemodynamically, he is in low rate atrial fibrillation. Remains on anticoagulation with Eliquis. On 08/11/2024, the patient is being seen for a follow-up. The patient remains on propofol running at 20 mcg/kg/min. Sedation holiday was done today and the patient was arousable and he was able to follow simple commands. Nevertheless, is not ready for weaning with extubation he was placed back on propofol. At the same time, the patient is on assist-control mode of mechanical ventilation at a rate of 20, tidal volume of 500, FiO2 of 100% with a PEEP of 16. Noted his oxygenation got worse overnight and the patient was placed on 100% FiO2. Current pulse ox is 97%. She has been gradually been his FiO2. The blood gases showed a pH of 7.49 with a pCO2 of 51 and pO2 of 76. The patient is currently o n Lasix 40 mg IV every 8 hours and Zaroxolyn 5 mg p.o. twice a day. The net fluid balance is -4.8 L over the past 24 hours. Continues to have evidence of bilateral pleural effusion and extensive pulmonary edema in addition to extensive swelling in the upper and lower extremities bilaterally. He is on Levemir insulin 15 units twice daily. He is on vital high-protein at rate of 45 cc an hour. No seizure activity has been noted. Remains on IV Zosyn. Afebrile. Hemodynamically stable. The white cell count is 6.8 with a hemoglobin 8.7 and a platelet count of 333. The sodium levels at 136, bicarb levels at 34, potassium is at 3.9, BUN is 27 with a creatinine of 0.7. No other significant events overnight. On 08/12/2024, patient remains intubated on mechanical ventilator. The patient is in a significant negative fluid balance and the patient is being diuresed with a combination of Lasix and Zaroxolyn. Fluid balance has been -4 L over the past 24 hours. The patient remains on Lasix 40 mg IV every 8 hours and Zaroxolyn 5 mg p.o. twice a day. The patient's follow-up chest x-ray from today shows improved aeration in the lungs. There is cardiomegaly. There is continued pulmonary edema and bilateral pleural effusions. Tube remains in good location. He is on assist-control mode of mechanical ventilation at rate of 20, tidal volume of 500, FiO2 of 70% with a PEEP of 16. Blood gas showed a pH of 7.54 with pCO2 48 and pO2 of 69. Remains on low rate atrial fibrillation and r ate is controlled. Remains on vital high-protein at rate of 48 cc an hour. The white cell count is at 8 with a hemoglobin 8.9 and platelet count of 418. Sodium is at 135, BUN 33 with a creatinine of 0.6. Bicarbonate level is at 35. Afebrile. No other significant events overnight. Was given a sedation holiday and the patient's mentation was appropriate. Based on that, the patient was placed back on propofol which is running at 15 mcg/kg/min. On 08/13/2024, the patient remains intubated on the mechanical ventilator. Unfortunately, oxygenation remains unchanged despite excellent diuresis that the patient has achieved over the past 48 hours. For now, the patient is still on mechanical ventilator. Sedated with propofol running at 50 mcg/kg/min. He is on assist-control mode with rate of 20, tidal volume of 500, FiO2 of 80% with a PEEP of 16. The blood gas showed a pH of 7.56 with a pCO2 of 46 and pO2 of 101. Fluid balance is -4.8 L over the past 24 hours. The patient is afebrile., Comfortable. Hemodynamically stable on no pressors. White cell count of 9.1 with a hemoglobin 9.8 and a platelet count of 461. BUN 34 with a creatinine of 0.7 and sodium level of 134. Follow-up chest x-ray was done today and it shows left-sided pleural effusion, improvement in the volume status. ET tube remains in good location. The patient remains on anticoagulation with Eliquis regarding a low rate controlled atrial fibrillation. The patient remains on Eliquis 5 mg p.o. twice a day. The patient remains on Levemir insulin 20 units twice daily and sliding scale insulin coverage. The patient remains on empiric antibiotic coverage with IV Zosyn. On 08/14/2024, the patient remains on the mechanical ventilator on propofol running at 50 mcg/kg/min. Remains on Lasix and Zaroxolyn. Fluid balance is - 5.9 L over the past 24 hours and over the past 72 hours, the patient has been at least 19 L negative fluid balance. The ventilator settings are essentially unchanged. The patient remains on assist-control mode on mechanical ventilation at a rate of 20, tidal volume of 500, FiO2 of 70% with a PEEP of 16. Morning blood gas showed a pH of 7.52 with a pCO2 of 44 and pO2 of 86. The patient is on Levemir insulin 25 units twice daily. The patient is on vital high-protein. The patient remains on Levemir insulin for blood sugar control and the patient is currently on 25 units twice a day with adequate blood sugar control. Labs from today show a white cell count of 8, hemoglobin of 9.2 and a platelet count of 474. Sodium levels at 133, K is at 3.3, bicarb is at 40, BUN 34 with a creatinine of 0.9. The patient remains on IV Zosyn. Patient was seen today on 08/15/2024, remains in the ICU, intubated and mechanically ventilated, on assist-control rate of 20 tidal volume 500 FiO2 50% PEEP of 12 his ABG is marginal with a pO2 of 72 pCO2 of 45 pH of 7.45, hence no plans to lower down the PEEP from 12 although it was 16 yesterday. Patient remains on propofol 25 mcg/kg/min he is also on vital HP at 55 cc/h cultures have been negative procalcitonin 0.18 patient is arousable, follows simple instructions, however he is not quite ready for weaning. In addition to his m ultiple medical problems, patient has COVID-19 pneumonia, chest x-ray continues to show evidence of bilateral bibasilar and midlung infiltrates, small left pleural effusion is also noted WBC count is 7.2 hemoglobin 9.5 ABG as noted earlier, Basic metabolic profile is normal bicarb is 36 BUN 38 creatinine 0.85 patient was seen today on 08/16/2024, patient remains in the ICU, bated and mechanically ventilated, he is on assist-control rate of 20 tidal volume 500 FiO2 70% PEEP was 12 and increased to 18 as his ABG showed a pO2 of 74 pCO2 52 pH of 7.43 and that was on 70% and PEEP of 12 patient had endotracheal tube changed today done at bedside, and post intubation his O2 saturation remained in the 80s/85%, follow-up ABG showed a pO2 of 54 pCO2 of 52 pH of 7.42 hence the PEEP was increased to 18 and his FiO2 was increased to 100%. Patient had a chest x-ray that showed some interstitial changes and findings of interstitial edema or interstitial infiltrates, Lasix was given at 40 mg IV push. Patient remains on propofol at 45 vital at 50 mL/h, patient had a PICC line placed on 08/15, and today I changed his endotracheal tube because of malfunctioning of his old endotracheal tube and kept popping off and getting disconnected. His Decadron was changed to Solu-Medrol 60 mg IV push every 6 hours, and looking at the overall picture, patient is not showing significant improvement in the last 10 days and I am recommending surgical evaluation for possible tracheostomy, and PEG tube placement, and eventually may require placement in [facility]. WBC count today is 8.7 hemoglobin 9.9 ABG as noted earlier electrolytes showed low potassium of 3.1, BUN of 42 creatinine 0.77 Patient was seen today on 08/17/2024, remains in the ICU, intubated and mechanically ventilated, patient is on assist-control rate of 20 tidal volume 500 FiO2 70% and I cut it down to 50% is PEEP remains 18 ABG today on 70% showed a pO2 of 113 pCO2 43 pH of 7.50. Will try to cut down the FiO2 to 50% and keep PEEP for now at 18 however the patient continues to maintain adequate O2 saturation may cut down the PEEP down to 16. Chest x-ray shows slight improvement compared to yesterday however patient is on a higher PEEP which may be misleading. Patient remains on propofol at 15 mg/kg/min vital HP at 50 cc/h. Patient is on Lasix 40 mg IV push twice daily remains on Eliquis. Off antibiotics, Remains on GI and DVT prophylaxis and mostly diuretics. Procalcitonin level came down to 0.18 hence will not restart antibiotics at this point. Sputum cultures are pending Seen today on 08/18/2024, patient remains in the ICU, intubated and mechanically ventilated, underwent uneventful tracheostomy yesterday, however a PEG tube could not be placed mostly because of his body habitus, surgery will consider open method for placement of the gastrostomy or jejunostomy tube down the line if felt to be necessary next week. In the meantime the patient is intubated mechanically ventilated he is on assist-control rate of 20 tidal volume 500 FiO2 50% PEEP of 16 I cut it down to 14, ABG showed a pO2 of 77 pCO2 41 pH of 7.52 EEG showed severe metabolic encephalopathy patient remains on propofol at 15 m cg/kg/min which I have discontinued today to fully assess mental status off sedation completely remains on enteral feeding patient is receiving tube feeding via nasogastric tube, patient is status post tracheostomy on 08/17/2024 remains on Eliquis remains on Lasix chest x-ray showing slight improvement but again patient is on relatively high PEEP. WBC count is 11.1 hemoglobin 10.3 platelets 512, basic metabolic profile is normal except for low potassium of 3.2 BUN is 53 creatinine 0.8. Patient was seen today on 08/19/2024, patient remains in the ICU, intubated and mechanically ventilated, he is on assist-control rate of 20 tidal volume 500 FiO2 50% PEEP 14 on the current down to 12 ABG showed a pO2 of 100 pCO2 44 pH of 7.50 patient remains on IV fluid at KVO 0.9 normal saline he is receiving vital HP at 50 cc/h his sputum cultures came back negative patient remains off antibiotics chest x-ray continues show a left lower lobe opacity and atelectasis, doubt pneumonia considering his procalcitonin level was normal and sputum was negative patient was on Zosyn which I have discontinued few days ago. Has been off sedation since yesterday, patient is waking up today, seems to follow simple instructions like squeezing hands, wiggling toes and opening eyes as well as sticking out his tongue but seems to be generally weak. WBC count is 11 hemoglobin is 11.2, basic metabolic profile is normal BUN is 56 creatinine 0.81 patient is still receiving enteral feeding via nasogastric tube, could not place PEG tube, however we will decide on the open approach for a PEG tube or jejunostomy tube next Thursday in the meantime I will continue to try possibly trials of weaning, and if I could get the patient to a trach collar, we could possibly deflate the cuff and address swallow evaluation. Objective - Vital Signs Vital signs: Vital Signs Temp 37.1 F L 08/19/24 12:00 Pulse 60 08/19/24 13:00 Resp 20 08/19/24 13:00 BP 133/87 08/18/24 15:00 Pulse Ox 97 08/19/24 13:00 FiO2 50 08/19/24 12:00 Intake & Output 08/18/24 08/19/24 08/19/24 18:59 06:59 18:59 Intake Total 543 766 363 Output Total 1670 1974 875 Balance -1127 -1208 -512 Weight 188.6 kg 188.6 kg Intake: IV 143 156 78 KVO 110 120 60 Pressure Bag 33 36 18 Intake, IV Titration 100 Amount propofoL 1,000 mg In 100 Empty Bag 1 bag @ 20 MCG/ KG/MIN 25.855 mls/hr IV . [id number] [facility] Rx#:[id number] Tube Feeding 300 550 255 Other 60 30 Output: Urine 1670 1974 875 Other: Voiding Method Indwelling Catheter Indwelling Catheter Indwelling Catheter ABP, PAP, CO, CI - Last Documented Arterial Blood Pressure 116/77 - Exam GENERAL: The patient is intubated off sedation, patient is following simple instructions HEENT: Pupils are round and equally reacting to light. EOMI. No scleral icterus. No conjunctival pallor. Normocephalic, atraumatic. No pharyngeal erythema. No thyromegaly. Tracheostomy is intact CARDIOVASCULAR: Normal S1-S2, no S3 gallop. PULMONARY: No crackles rhonchi or wheezes diminished breath sounds at the bases, tracheostomy is intact Abdomen, obese soft nontender no megaly, no rebound, no guarding. MUSCULOSKELETAL: No joint swelling or deformity. EXTREMITIES: No cyanosis, clubbing, continues with 1+ bipedal edema NEUROLOGICAL: Arousable, follows simple instructions but generally weak Psychiatric: Could not assess fully, but the patient seems to comprehend and follow simple instructions SKIN: Patient has a stage II skin ulcer at the distal lateral aspect of the right lower extremity/chronic - Labs CBC & Chem 7: 08/19/24 04:18 08/19/24 04:18 Labs: Abnormal Lab Results - Last 24 Hours (Table) 08/18/24 08/18/24 08/19/24 Range/Units 19:12 23:34 04:18 WBC 11.0 H (3.8-10.6) k/uL Hgb 11.2 L (13.0-17.5) gm/dL Hct 38.1 L (39.0-53.0) % MCV 75.6 L (80.0-100.0) fL MCH 22.3 L (25.0-35.0) pg MCHC 29.5 L (31.0-37.0) g/dL RDW 16.4 H (11.5-15.5) % Plt Count 572 H (150-450) k/uL Neutrophils # 9.6 H (1.3-7.7) k/uL Lymphocytes # 0.7 L (1.0-4.8) k/uL ABG pH (7.35-7.45) ABG HCO3 (21-25) mmol/L ABG Total CO2 (19-24) mmol/L ABG O2 Saturation (94-97) % Hemoglobin (13.0-17.5) gm/dL Sodium (137-145) mmol/L Potassium (3.5-5.1) mmol/L Chloride (98-107) mmol/L Carbon Dioxide (22-30) mmol/L BUN (9-20) mg/dL Glucose (74-99) mg/dL POC Glucose (mg/dL) 159 H 189 H (70-110) mg/dL 08/19/24 08/19/24 08/19/24 Range/Units 04:18 05:06 05:28 WBC (3.8-10.6) k/uL Hgb (13.0-17.5) gm/dL Hct (39.0-53.0) % MCV (80.0-100.0) fL MCH (25.0-35.0) pg MCHC (31.0-37.0) g/dL RDW (11.5-15.5) % Plt Count (150-450) k/uL Neutrophils # (1.3-7.7) k/uL Lymphocytes # (1.0-4.8) k/uL ABG pH 7.50 H (7.35-7.45) ABG HCO3 34 H (21-25) mmol/L ABG Total CO2 35 H (19-24) mmol/L ABG O2 Saturation 98.4 H (94-97) % Hemoglobin 11.0 L (13.0-17.5) gm/dL Sodium 134 L (137-145) mmol/L Potassium 3.4 L (3.5-5.1) mmol/L Chloride 92 L (98-107) mmol/L Carbon Dioxide 34 H (22-30) mmol/L BUN 56 H (9-20) mg/dL Glucose 231 H (74-99) mg/dL POC Glucose (mg/dL) 231 H (70-110) mg/dL 08/19/24 Range/Units 11:45 WBC (3.8-10.6) k/uL Hgb (13.0-17.5) gm/dL Hct (39.0-53.0) % MCV (80.0-100.0) fL MCH (25.0-35.0) pg MCHC (31.0-37.0) g/dL RDW (11.5-15.5) % Plt Count (150-450) k/uL Neutrophils # (1.3-7.7) k/uL Lymphocytes # (1.0-4.8) k/uL ABG pH (7.35-7.45) ABG HCO3 (21-25) mmol/L ABG Total CO2 (19-24) mmol/L ABG O2 Saturation (94-97) % Hemoglobin (13.0-17.5) gm/dL Sodium (137-145) mmol/L Potassium (3.5-5.1) mmol/L Chloride (98-107) mmol/L Carbon Dioxide (22-30) mmol/L BUN (9-20) mg/dL Glucose (74-99) mg/dL POC Glucose (mg/dL) 245 H (70-110) mg/dL Assessment and Plan Assessment: Impression: Acute hypoxic respiratory failure requiring intubation mechanical ventilation, multifactorial Acute COVID-19 pneumonia Acute fluid overload and bilateral pleural effusions most likely secondary to diastolic congestive heart failure Chronic atrial fibrillation Morbid obesity New onset seizure activity, on Keppra History of CVA Benign essential hypertension Obesity hypoventilation syndrome with BMI of 63.9 Obstructive sleep apnea syndrome Congestive heart failure with preserved LV function Type 2 diabetes Iron deficiency anemia History of polysubstance abuse History of right foot diabetic infection with previous incision and drainage in July 04, 2023 Status post endotracheal tube changed on 08/16 Status post tracheostomy on 08/17/2019's 5 Recommendation: Continue ventilatory support, I was able to go down on the PEEP to 12 from 14, FiO2 remains at 50% Procalcitonin level is normal, off antibiotics, sputum is negative Continue diuretics including Lasix and Zaroxolyn Continue to hold sedation for full assessment of mental status seems to be improving of propofol Continue Keppra Continue Eliquis Continue nutritional support/enteral feeding: May eventually require PEG tube placement but has to be done i via open approach Continue GI and DVT prophylaxis Patient remains critically ill Critical care time is over 30 Time with Patient: Greater than 30
[2024-08-19 18:24] LABS: Glucose,Whole Blood 228 mg/dL (70-110)
--- NOTE | 2024-08-19 19:29 | P.PN ---
Subjective Progress Note Date: 08/19/24 Patient in the intensive care unit currently intubated and sedated on the mechanical ventilator. Patient's chest x-ray today does reveal worsening CHF. He is significantly edematous. Remains sedated with IV fentanyl and propofol. He continues on IV Zosyn. Patient was started on enteral feedings today. blood sugars are elevated in the 200s. 08/07/2024 Patient was evaluated in follow-up in the medical floor he is currently intubated and sedated on the mechanical ventilator. Patient had gone into atrial fibrillation with rapid ventricular rate overnight requiring IV Cardizem. He has been since transition to oral metoprolol with heart rate better controlled today. He does have a noted history of atrial fibrillation was resumed on his oral Eliquis yesterday. Patient currently has LR running at 75 mL/h he does remain quite edematous mostly in his lower extremities. Patient was noted to have a small amount of yellow bile emesis there has been no residual with his tube feedings and they are continued at a slow rate today of 10 mL/h. He is febrile today temperature of 100.8. An abdominal x-ray was unable to be completed due to patient's body habitus and he is unable to be transported down for x-ray at this time. 08/08/2024 Patient is seen in follow-up in the ICU and overnight placed on mechanical ventilation as patient was noted to have what appeared to be seizure-like activity with no history of seizures and neurology was consulted. Patient was placed on mechanical ventilation currently with an FiO2 of 60% and PEEP is 10 with pulmonary director of software engineering following. Patient remains with low-grade temps and also started on Keppra and is maintained on antibiotics. Cardiology following as well maintained on oral anticoagulation and has been having heart rates in the 40s. Continued on low-dose metoprolol and will continue to monitor closely. Per nursing staff patient also requiring low-dose Levophed and has been started on 40 of IV Lasix daily due to significant swelling. Will follow-up on repeat labs and continue to monitor closely. 08/09/2024 Patient is seen in follow-up with multiple consultations following including pulmonary, neurology, cardiology, and infectious disease consulted. Patient underwent EEG which was abnormal with no epileptiform discharges noted. Patient is continued on Keppra for now. Heart rates in the low 40s although per nursing staff slightly improved this afternoon and is being monitored closely with cardiology following. Patient is continued on Lasix for diuresis with significant volume overload. Wean pressors as tolerated and follow-up on repeat labs. Patient's blood sugars have been more elevated and possible steroid effect will increase long-acting and also Accu-Cheks before meals and at bedtime as well as sliding scale. Adjust accordingly. 08/10/2024 Patient is seen in follow-up today continues on mechanical ventilation in the ICU with an FiO2 of 80% and PEEP is 14. Undergoing sedation holidays and per nursing staff patient will open his eyes and attempt to track although not moving. Patient continues to be extremely edematous and is diuresing maintained on IV Lasix. Heart rates slightly improved and will continue current regimen per cardiology. No plans on extubation at this time. Per nursing staff patient has not had a bowel movement and is continued on bowel regimen. Abdomen is soft and there is positive bowel sounds noted. Patient continued on tube feeds. Highly recommend aspiration precautions and head of the bed elevated 30 to 45 degrees at all times. 08/12/2024 Patient is seen in follow-up today remains in the ICU with multiple consultations following. PEEP remains high at 16 with an FiO2 of 70% and per nursing staff has been having some desaturations and is being increased to 80% FiO2. Patient is maintained on metolazone along with IV Lasix and potassium borderline daily being replaced will add daily supplementation. Patient is having adequate diuresis and kidney functions are stable. Patient undergoing sedation holidays daily with no plans of weaning and extubation at this time. Patient is afebrile and maintained on IV Decadron along with Zosyn. Continue bowel regimen patient does have positive bowel sounds and is tolerating tube feeds at this time. Recommend aspiration precautions with head of the bed elevated 45 degrees at all times. 08/13/2024 Patient evaluated in the intensive care unit with multiple consultations following. Patient remains on the mechanical ventilator with a PEEP of 16 and FiO2 of 70%. Patient is appropriately arousable during sedation holidays. No plans for extubation at this time. Patient continues on IV Zosyn continues on IV Lasix IV Diamox and continues on oral zaroxolyn. Lower extremities remain significantly edematous. Patient is continued on enteral feedings now at goal running at 55 mL/h. Blood glucose has been elevated in the 200s. Chest x-ray today reveals a left-sided pleural effusion. 08/14/2024 Patient eval today in follow-up in the intensive care unit patient remains on mechanical ventilator, FiO2 down to 50%. Chest x-ray today reveals stable left lower lobe infiltrate and effusion. Patient remains on IV decadron daily. IV lasix 40 mg Q12 hour. Increased urine output over the last 24 hours. Lower extre mity edema has mildly improved. Bowels are moving. Patient is tolerating enteral feeding. IV zosyn has been discontinued. WBC 8.3, hgb 9.2, sodium 133, BUN 34, creatinine 0.90, magnesium 1.9. Patient evaluated today in follow up in the ICU. Vent settings were decreased yesterday to 50% FiO2 with a PEEP of 12, patient became increasingly hypoxic. Vent settings increased back up to 70% fio2 and PEEP of 16. Remains on IV decadron daily. Continues on IV lasix 40 mg Q12 hour as well as oral zaroxolyn. Chest xray today shows left perihilar infiltrate and small left pleural effusion. Patient remains on enteral feedings with Vital HP running at goal of 50 mls/hr and tolerating. Blood glucose remains elevated in the 200-300s. Labs revealing white blood cell count 7.2, hgb 9.5, sodium 132, BUN 38, creatinine 0.85. Procal 0.18. TSH 1.780. 08/16/2023 Patient evaluated today in the ICU. Remains on mechanical ventilator with PEEP of 70% FiO2 of 16. Chest xray today reveals mild right upper lobe infiltrate. Additional mild infiltrate may be at the left base. General surgery consulted f or tracheostomy and PEG tube placement. White blood cell count 8.7, hgb 9.9, sodium 132, potassium 4.5, BUN 42, creatinine 0.77. 08/17/2023 Was evaluated today in the intensive care unit. Patient remains on mechanical ventilator with an FiO2 of 60% and PEEP of 18. X-ray today reveals a mild garret hilar increased lung markings stable from comparison. Patient catheter tip are currently negative. His white blood blood count is normal at 8.5, hemoglobin 9.7, sodium 134, BUN of 47 and creatinine of 0.75. Is currently on IV Solu- Medrol 60 mg every 6 hours. He is sedated with propofol. He is on IV Keppra. He is currently off antibiotic at this time. 08/18/2023 Patient is status post tracheostomy placement continues on the mechanical ventilator, FiO2 of 50% and PEEP of 16. Patient continues to have evidence of altered mentation with EEG showing severe metabolic encephalopathy. [employer] planning to discontinue the propofol at this time to assess patient's mental status. He continues on IV Lasix with slight improvement on the chest x-ray today. The PEG tube was unable to be placed secondary to body habitus. Labs today reveal a white blood cell count 11.1, hemoglobin 10.3, sodium 134, potassium 3.2, BUN 53 creatinine of 0.80. 08/19/2024 Patient is seen in follow-up continues in the ICU status post tracheostomy placement currently off sedation and awake today opening eyes and eye tracking attempting to follow commands although is significantly weak. Patient continues on assist mode and FiO2 is 50% and PEEP was decreased to 12. Multiple consultations following including general surgery as they were unable to place a PEG tube and will continue with tube feeds via NG. Considering possible open gastrostomy tube given patient's body habitus. Patient is afebrile and being monitored with infectious disease following off antibiotic therapy. Patient also continues on IV diuresis and tolerating well. Patient being followed by pulmonary attempting to wean as tolerated and also maintained on steroids with mildly elevated blood sugars more so than normal in the 200s will slightly increase long-acting insulin and monitor closely. Follow-up with repeat labs. Case management also following in the event patient will require possible LTAC admission. Unable to complete review of systems as patient is currently intubated and sedated PHYSICAL EXAMINATION: GENERAL: The patient is intubated and awake but very lethargic. Fatigues easily although does respond to name and eye tracking and blinking eyes. He is morbidly obese, well-developed, elderly appearing, extremely edematous of upper and lower extremities and body habitus, ill-appearing. FiO2 is currently 50% with a PEEP of 12 HEENT: Pupils are round and equally reacting to light. EOMI. No scleral icterus. No conjunctival pallor. Normocephalic, atraumatic. No pharyngeal erythema. No thyromegaly. CARDIOVASCULAR: S1 and S2 muffled, irregular PULMONARY: Diminished breath sounds bilaterally otherwise chest is clear to auscultation, no wheezing , no crackles. ABDOMEN: Soft, obese, nontender, nondistended, normoactive bowel sounds. No palpable organomegaly. Kelly catheter in place MUSCULOSKELETAL: No joint swelling or deformity. EXTREMITIES: No cyanosis, clubbing, continues with significant lower extremity edema bilaterally pitting right lower leg superficial wound is improved with no significant redness and some mild flaking of the skin noted NEUROLOGICAL: Awake although fatigues easily, eye-opening and responding to name, tracking, attempting to follow simple commands extremely weak SKIN: No rashes. no petechiae. Assessment: Acute hypoxic respiratory failure requiring intubation on admission, currently on mechanical ventilation, FiO2 is 50% with PEEP of 12. Status post tracheost karon on 08/17/2024 COVID infection and possible pneumonia, concerns for aspiration pneumonia Possible seizure like activity, new onset, EEG was abnormal although not showing any epileptiform discharges, continued on Keppra for now with neurology following Possible acute COPD exacerbation versus obesity hypoventilation syndrome Possible bacterial pneumonia, healthcare associated with right upper lobe and left lower lobe infiltrates, ruled out, white count is normal and patient is off antibiotics, cultures are negative Severe sepsis requiring pressor support Acute on chronic diastolic heart failure with preserved EF A-fib and RVR, present on admission with slow ventricular rate dropping into the 30s. Patient heart rate slightly improving and will continue current regimen per cardiology Right leg wound with recent cultures showing enterococcus faecalis, ESBL and Providencia Rettgeri Diabetes Mellitus type 2, uncontrolled with hyperglycemia Steroid induced hyperglycemia Morbid obesity with a BMI of 64.2 Chronic anemia Lactic acidemia/acidosis, improved GI prophylaxis DVT prophylaxis Full Code Plan: Patient has completed course of antibiotic therapy and remains off zosyn at this time. Infectious diseases following and will continue with wound care Mechanical ventilator per director of software engineering. No plans for extubation at this time and undergoing sedation holidays. Patient is status post tracheostomy on 08/17/2024 Continue enteral feedings, tube feeds were resumed and tolerating thus far.. Continue with aspiration precautions and head of the bed elevated 45 degrees at all times and monitor closely for residuals Continue bowel regimen and also daily suppositories. PEG was unable to be placed by general surgery secondary to patient's body habitus. Will need to be open gastrostomy tube placement per surgery and awaiting consent Patient does not have history of seizures and was started on Keppra and neurology following underwent EEG which was abnormal although not showing any e pileptiform discharges. No further seizure-like activity noted. Neurology following as needed Per pulmonary director of software engineering patient is continued on IV Lasix every 12 hours. And will continue to monitor kidney functions closely. Replace electrolytes per protocol. Daily supplementation of potassium ordered Continue eliquis and monitor for any signs of bleeding. Continue with Accu-Cheks [id number] sliding scale along with long-acting. Levemir will be slightly increased to 60 units SQ BID and also continue novolog scale which has been adjusted to high dose He is continued on IV Solu-Medrol Repeat blood work in the AM Overall prognosis is guarded Case management following in the event patient may require possible LTAC. Pulmonary director of software engineering planning on weaning as tolerated and was able to decrease the rate of PEEP to 12 and is continued at 50% FiO2. Mentation is improving and patient is maintained off propofol. Patient is significantly weak and has had prolonged hospitalization. Patient will require extensive physical rehab as well as tracheostomy care. Awaiting to discuss further regarding G-tube insertion and will continue with NG tube for now. Continue with aspiration precautions. CODE STATUS remains full code at this time The impression and plan of care has been dictated by Jocy Randle, Nurse Practitioner as directed. Dr. Jackie MD I have performed a history and physical examination and medical decision making of this patient, discussed the same with the dictator, and agree with the dictators assessment and plan as written, documented as a scribe. Based on total visit time, I have performed more than 50% of this visit. Objective - Vital Signs Vital signs: Vital Signs Temp 98.8 F 08/19/24 08:00 Pulse 73 08/19/24 08:00 Resp 20 08/19/24 08:00 BP 133/87 08/18/24 15:00 Pulse Ox 97 08/19/24 08:00 FiO2 50 08/19/24 09:05 Intake & Output 08/18/24 08/19/24 08/19/24 18:59 06:59 18:59 Intake Total 543 766 106 Output Total 0660 1974 200 Balance -1127 -1208 -94 Weight 188.6 kg Intake: IV 143 156 26 KVO 110 120 20 Pressure Bag 33 36 6 Intake, IV Titration 100 Amount propofoL 1,000 mg In 100 Empty Bag 1 bag @ 20 MCG/ KG/MIN 25.855 mls/hr IV . [id number] [facility] Rx#:[id number] Tube Feeding 300 550 50 Other 60 30 Output: Urine 1670 1974 200 Other: Voiding Method Indwelling Catheter Indwelling Catheter ABP, PAP, CO, CI - Last Documented Arterial Blood Pressure 132/70 - Labs CBC & Chem 7: 08/19/24 04:18 08/19/24 04:18 Labs: Abnormal Lab Results - Last 24 Hours (Table) 08/18/24 08/18/24 08/18/24 Range/Units 11:39 19:12 23:34 WBC (3.8-10.6) k/uL Hgb (13.0-17.5) gm/dL Hct (39.0-53.0) % MCV (80.0-100.0) fL MCH (25.0-35.0) pg MCHC (31.0-37.0) g/dL RDW (11.5-15.5) % Plt Count (150-450) k/uL Neutrophils # (1.3-7.7) k/uL Lymphocytes # (1.0-4.8) k/uL ABG pH (7.35-7.45) ABG HCO3 (21-25) mmol/L ABG Total CO2 (19-24) mmol/L ABG O2 Saturation (94-97) % Hemoglobin (13.0-17.5) gm/dL Sodium (137-145) mmol/L Potassium (3.5-5.1) mmol/L Chloride (98-107) mmol/L Carbon Dioxide (22-30) mmol/L BUN (9-20) mg/dL Glucose (74-99) mg/dL POC Glucose (mg/dL) 186 H 159 H 189 H (70-110) mg/dL 08/19/24 08/19/24 08/19/24 Range/Units 04:18 04:18 05:06 WBC 11.0 H (3.8-10.6) k/uL Hgb 11.2 L (13.0-17.5) gm/dL Hct 38.1 L (39.0-53.0) % MCV 75.6 L (80.0-100.0) fL MCH 22.3 L (25.0-35.0) pg MCHC 29.5 L (31.0-37.0) g/dL RDW 16.4 H (11.5-15.5) % Plt Count 572 H (150-450) k/uL Neutrophils # 9.6 H (1.3-7.7) k/uL Lymphocytes # 0.7 L (1.0-4.8) k/uL ABG pH (7.35-7.45) ABG HCO3 (21-25) mmol/L ABG Total CO2 (19-24) mmol/L ABG O2 Saturation (94-97) % Hemoglobin (13.0-17.5) gm/dL Sodium 134 L (137-145) mmol/L Potassium 3.4 L (3.5-5.1) mmol/L Chloride 92 L (98-107) mmol/L Carbon Dioxide 34 H (22-30) mmol/L BUN 56 H (9-20) mg/dL Glucose 231 H (74-99) mg/dL POC Glucose (mg/dL) 231 H (70-110) mg/dL 08/19/24 Range/Units 05:28 WBC (3.8-10.6) k/uL Hgb (13.0-17.5) gm/dL Hct (39.0-53.0) % MCV (80.0-100.0) fL MCH (25.0-35.0) pg MCHC (31.0-37.0) g/dL RDW (11.5-15.5) % Plt Count (150-450) k/uL Neutrophils # (1.3-7.7) k/uL Lymphocytes # (1.0-4.8) k/uL ABG pH 7.50 H (7.35-7.45) ABG HCO3 34 H (21-25) mmol/L ABG Total CO2 35 H (19-24) mmol/L ABG O2 Saturation 98.4 H (94-97) % Hemoglobin 11.0 L (13.0-17.5) gm/dL Sodium (137-145) mmol/L Potassium (3.5-5.1) mmol/L Chloride (98-107) mmol/L Carbon Dioxide (22-30) mmol/L BUN (9-20) mg/dL Glucose (74-99) mg/dL POC Glucose (mg/dL) (70-110) mg/dL
[2024-08-19] MEDS: INSULIN DETEMIR (LEVEMIR) 100 UNIT/ML SYR SQ SCH (21:24)
[2024-08-19 23:10] LABS: Glucose,Whole Blood 259 mg/dL (70-110)
[2024-08-20 04:24] LABS: Anisocytosis Slight; Basophils % (A) 0 %; Eosinophils % (A) 0 %; HCT 36.7 % (39.0-53.0); HGB 10.8 gm/dL (13.0-17.5); Hypochromasia Marked; Lymphocytes # (A) 0.6 k/uL (1.0-4.8); Lymphocytes % (A) 5 %; MCH 22.4 pg (25.0-35.0); MCHC 29.6 g/dL (31.0-37.0); MCV 75.7 fL (80.0-100.0); Mean Platelet Volume 6.6; Microcytosis Slight; Monocytes # (A) 0.9 k/uL (0-1.0); Monocytes % (A) 8 %; Neutrophils # (A) 9.5 k/uL (1.3-7.7); Neutrophils % (A) 85 %; Platelet Count 486 k/uL (150-450); RBC 4.85 m/uL (4.30-5.90); RDW 16.1 % (11.5-15.5); WBC 11.1 k/uL (3.8-10.6)
[2024-08-20 04:37] LABS: African American GFR (CKD) >90 (>60 ml/min/1.73 sqM); Anion Gap 5 mmol/L; Blood Urea Nitrogen 58 mg/dL (9-20); Calcium 9.6 mg/dL (8.4-10.2); Carbon Dioxide 38 mmol/L (22-30); Chloride 95 mmol/L (98-107); Glucose 218 mg/dL (74-99); Magnesium 2.1 mg/dL (1.6-2.3); Non-African American GFR(CKD) >90 (>60 ml/min/1.73 sqM); Potassium 3.3 mmol/L (3.5-5.1); Sodium 138 mmol/L (137-145)
[2024-08-20 05:45] LABS: Glucose,Whole Blood 232 mg/dL (70-110)
[2024-08-20 05:46] LABS: ABG Base Excess 11.2 mmol/L; ABG HCO3 35 mmol/L (21-25); ABG Oxygen Saturation 98.5 % (94-97); ABG PCO2 44 mmHg (35-45); ABG PH 7.51 (7.35-7.45); ABG PO2 100 mmHg (83-108); ABG TCO2 37 mmol/L (19-24); Allen Test Performed? Yes
--- NOTE | 2024-08-20 07:22 | XR ---
EXAMINATION TYPE: XR chest 1V DATE OF EXAM: 08/20/2024 6:02 AM COMPARISON: Chest radiograph from one day prior. CLINICAL INDICATION: Male, 63 years old with history of mechanical ventilation; [facility] TECHNIQUE: XR chest 1V Frontal view of the chest. FINDINGS: Lungs/Pleura: Left lower lobe airspace disease. There is no evidence of pleural effusion, focal conso lidation, or pneumothorax. Pulmonary vascularity: Unremarkable. Heart/mediastinum: Cardiomediastinal silhouette is unremarkable. Musculoskeletal: No acute osseous pathology. Other findings: None Lines/Tubes: Tracheostomy cannula tip projecting over the trachea. Nasogastric tube with its distal tip and side-port projecting under the diaphragm and projecting over the gastric lumen. Left-sided PICC with distal tip at the superior vena cava. IMPRESSION: Stable left lower lobe airspace disease, stable support tubes and line. [facility], , 08/20/2024 7:19 AM
[2024-08-20] MEDS: POTASSIUM BICARBONATE/CIT AC 20 MEQ TABLET.EFF PO ONE (09:13)
--- NOTE | 2024-08-20 11:19 | P.PN ---
Subjective Progress Note Date: 08/20/24 Principal diagnosis: Acute hypoxic respiratory failure, multifactorial On 08/08/2024, the patient is being seen in follow-up in the intensive care unit. This is a morbidly obese 63-year-old male patient who is currently intubated on the mechanical ventilator. Initially presented to us on 08/05/2024 for respiratory distress and the patient became unresponsive. He is known to have morbid obesity, COPD, chronic A-fib, CVA, hypertension hyperlipidemia. He resides in a [place] [facility] and the patient was found to be unresponsive and not breathing properly. His pulse ox was also very low and the patient was hypotensive and minimally responsive. He came into the emergency department where he was intubated and placed on the mechanical ventilator. Since admission, the patient was found to be COVID-19 positive. He had a follow-up chest x-ray today that shows significant rotation, ET tube is probably 1 cm above the damian and there is evidence of left lower lobe consolidati on/effusion. Noted at the time of admission, he had also a right upper lobe consolidation in addition to left lower lobe consolidation. Sputum samples have been negative as collected on 08/05/2024 and blood cultures been also negative. No significant leukocytosis. The patient is currently on no antibiotics. The patient is on propofol which is running at 30 mcg/kg/min, and is also on fentanyl at 1 mcg/kg/h.. The patient is on assist-control mode of mechanical ventilation at rate of 20, tidal volume of 500, FiO2 of 60 % with a PEEP of 10. Blood gases from today shows a pH of 7.46 with a pCO2 of 51 and pO2 of 69 and this was an FiO2 of 60%. The patient is on lactated Ringer at rate of 75 cc an hour. The patient receiving vital high-protein at rate of 55 cc an hour. He remains in atrial fibrillation with rapid ventricular response. He is off Cardizem drip . He is also on metoprolol 12.5 mg twice a day and anticoagulation with Eliquis 5 mg p.o. twice a day. He is on Levemir insulin 15 units at bedtime. Earlier this morning, the patient noted to have episodic generalized tonic-clonic seizure-like activity. The patient was kept on propofol. He was given Ativan 2 mg IV push x 2 and started on Keppra. CAT scan of the brain is to follow. EEG is to follow. Neurology consultation is to follow. The patient is on lactated Ringer at rate of 75 cc an hour. Norepinephrine was also started this morning and is currently running at 0.03 mcg/kg/min. He is on EN , vital HP at 35 cc/hr On 08/09/2024, the patient is being seen for a follow-up. The patient remains intubated on the mechanical ventilator. This morning, the patient is on propofol which is running at 15 mcg/kg/min. Noted the propofol rate was gradually reduced as of yesterday and the fentanyl has been discontinued. Overnight, the patient continued to have bradycardic events and the heart rate was dropping as low as in the 40s and the rhythm remains atrial fibrillation. The patient was taken off the beta-blockers. The patient this morning is on assist-control mode of mechanical ventilation at rate of 20, tidal volume of 500, FiO2 of 60% with a PEEP of 5. Blood gas showed a pH of 7.51 with a pCO2 of 43 and pO2 of 64. Chest x-ray showing bilateral airspace disease, worse on the right essentially involving the lung bases. The patient is currently on no pressors. The patient remains on vital high-protein at rate of 45 cc an hour. No further seizure activity has been noted. The patient remains on IV Keppra. EEG showed encephalopathy without any seizure activity. Neurology on the case. The patient remains on IV Zosyn. The patient continues to have significant amount of edema in all 4 extremities and the patient remains on IV Lasix 40 mg every 12 hours. Fluid balance is +180 cc over the past 24 hours. Repeat cultures were sent and the results are still pending. The patient remains on anticoagulation with Eliquis regarding chronic atrial fibrillation. Cardizem drip is off. Metoprolol is currently on hold. On 08/10/2024, the patient is being seen for a follow-up. This morning, the patient is on propofol running at 20 mcg/kg/min. Remains deeply sedated. He is morbidly obese and he remains on the mechanical ventilator due to hypoxic/hypercapnic respiratory failure. This morning, he is on assist-control mode with rate of 20, tidal volume of 500, FiO2 is at 80% with a PEEP of 14. pH is 7.47 with a pCO2 of 44 and pO2 of 67. Chest x-ray shows bilateral pleural effusions and an area of dense consolidation in left upper lobe. There are signs of fluid overload as the patient continues to have extensive edema in all 4 extremities. He is on IV Lasix. Fluid balance is -1.5 L over the past 24 hours. The patient remains on IV Zosyn as an empiric antibiotic coverage. No pressors. No seizure activity and the patient remains on IV Keppra. EEG showed no evidence of any ongoing seizure activity. Remains on vital high-protein at rate of 45 cc an hour and the patient is on Levemir insulin 15 units twice a day. Blood work showed a white cell count of 6.8 with a hemoglobin 9.3 and a platelet count of 310. Sodium level is at 137, BUN is 25 with a creatinine of 0.8 and a potassium level is at 3.8. Procalcitonin level is at 0.48. The patient is afebrile. Hemodynamically, he is in low rate atrial fibrillation. Remains on anticoagulation with Eliquis. On 08/11/2024, the patient is being seen for a follow-up. The patient remains on propofol running at 20 mcg/kg/min. Sedation holiday was done today and the patient was arousable and he was able to follow simple commands. Nevertheless, is not ready for weaning with extubation he was placed back on propofol. At the same time, the patient is on assist-control mode of mechanical ventilation at a rate of 20, tidal volume of 500, FiO2 of 100% with a PEEP of 16. Noted his oxygenation got worse overnight and the patient was placed on 100% FiO2. Current pulse ox is 97%. She has been gradually been his FiO2. The blood gases showed a pH of 7.49 with a pCO2 of 51 and pO2 of 76. The patient is currently o n Lasix 40 mg IV every 8 hours and Zaroxolyn 5 mg p.o. twice a day. The net fluid balance is -4.8 L over the past 24 hours. Continues to have evidence of bilateral pleural effusion and extensive pulmonary edema in addition to extensive swelling in the upper and lower extremities bilaterally. He is on Levemir insulin 15 units twice daily. He is on vital high-protein at rate of 45 cc an hour. No seizure activity has been noted. Remains on IV Zosyn. Afebrile. Hemodynamically stable. The white cell count is 6.8 with a hemoglobin 8.7 and a platelet count of 333. The sodium levels at 136, bicarb levels at 34, potassium is at 3.9, BUN is 27 with a creatinine of 0.7. No other significant events overnight. On 08/12/2024, patient remains intubated on mechanical ventilator. The patient is in a significant negative fluid balance and the patient is being diuresed with a combination of Lasix and Zaroxolyn. Fluid balance has been -4 L over the past 24 hours. The patient remains on Lasix 40 mg IV every 8 hours and Zaroxolyn 5 mg p.o. twice a day. The patient's follow-up chest x-ray from today shows improved aeration in the lungs. There is cardiomegaly. There is continued pulmonary edema and bilateral pleural effusions. Tube remains in good location. He is on assist-control mode of mechanical ventilation at rate of 20, tidal volume of 500, FiO2 of 70% with a PEEP of 16. Blood gas showed a pH of 7.54 with pCO2 48 and pO2 of 69. Remains on low rate atrial fibrillation and r ate is controlled. Remains on vital high-protein at rate of 48 cc an hour. The white cell count is at 8 with a hemoglobin 8.9 and platelet count of 418. Sodium is at 135, BUN 33 with a creatinine of 0.6. Bicarbonate level is at 35. Afebrile. No other significant events overnight. Was given a sedation holiday and the patient's mentation was appropriate. Based on that, the patient was placed back on propofol which is running at 15 mcg/kg/min. On 08/13/2024, the patient remains intubated on the mechanical ventilator. Unfortunately, oxygenation remains unchanged despite excellent diuresis that the patient has achieved over the past 48 hours. For now, the patient is still on mechanical ventilator. Sedated with propofol running at 50 mcg/kg/min. He is on assist-control mode with rate of 20, tidal volume of 500, FiO2 of 80% with a PEEP of 16. The blood gas showed a pH of 7.56 with a pCO2 of 46 and pO2 of 101. Fluid balance is -4.8 L over the past 24 hours. The patient is afebrile., Comfortable. Hemodynamically stable on no pressors. White cell count of 9.1 with a hemoglobin 9.8 and a platelet count of 461. BUN 34 with a creatinine of 0.7 and sodium level of 134. Follow-up chest x-ray was done today and it shows left-sided pleural effusion, improvement in the volume status. ET tube remains in good location. The patient remains on anticoagulation with Eliquis regarding a low rate controlled atrial fibrillation. The patient remains on Eliquis 5 mg p.o. twice a day. The patient remains on Levemir insulin 20 units twice daily and sliding scale insulin coverage. The patient remains on empiric antibiotic coverage with IV Zosyn. On 08/14/2024, the patient remains on the mechanical ventilator on propofol running at 50 mcg/kg/min. Remains on Lasix and Zaroxolyn. Fluid balance is - 5.9 L over the past 24 hours and over the past 72 hours, the patient has been at least 19 L negative fluid balance. The ventilator settings are essentially unchanged. The patient remains on assist-control mode on mechanical ventilation at a rate of 20, tidal volume of 500, FiO2 of 70% with a PEEP of 16. Morning blood gas showed a pH of 7.52 with a pCO2 of 44 and pO2 of 86. The patient is on Levemir insulin 25 units twice daily. The patient is on vital high-protein. The patient remains on Levemir insulin for blood sugar control and the patient is currently on 25 units twice a day with adequate blood sugar control. Labs from today show a white cell count of 8, hemoglobin of 9.2 and a platelet count of 474. Sodium levels at 133, K is at 3.3, bicarb is at 40, BUN 34 with a creatinine of 0.9. The patient remains on IV Zosyn. Patient was seen today on 08/15/2024, remains in the ICU, intubated and mechanically ventilated, on assist-control rate of 20 tidal volume 500 FiO2 50% PEEP of 12 his ABG is marginal with a pO2 of 72 pCO2 of 45 pH of 7.45, hence no plans to lower down the PEEP from 12 although it was 16 yesterday. Patient remains on propofol 25 mcg/kg/min he is also on vital HP at 55 cc/h cultures have been negative procalcitonin 0.18 patient is arousable, follows simple instructions, however he is not quite ready for weaning. In addition to his m ultiple medical problems, patient has COVID-19 pneumonia, chest x-ray continues to show evidence of bilateral bibasilar and midlung infiltrates, small left pleural effusion is also noted WBC count is 7.2 hemoglobin 9.5 ABG as noted earlier, Basic metabolic profile is normal bicarb is 36 BUN 38 creatinine 0.85 patient was seen today on 08/16/2024, patient remains in the ICU, bated and mechanically ventilated, he is on assist-control rate of 20 tidal volume 500 FiO2 70% PEEP was 12 and increased to 18 as his ABG showed a pO2 of 74 pCO2 52 pH of 7.43 and that was on 70% and PEEP of 12 patient had endotracheal tube changed today done at bedside, and post intubation his O2 saturation remained in the 80s/85%, follow-up ABG showed a pO2 of 54 pCO2 of 52 pH of 7.42 hence the PEEP was increased to 18 and his FiO2 was increased to 100%. Patient had a chest x-ray that showed some interstitial changes and findings of interstitial edema or interstitial infiltrates, Lasix was given at 40 mg IV push. Patient remains on propofol at 45 vital at 50 mL/h, patient had a PICC line placed on 08/15, and today I changed his endotracheal tube because of malfunctioning of his old endotracheal tube and kept popping off and getting disconnected. His Decadron was changed to Solu-Medrol 60 mg IV push every 6 hours, and looking at the overall picture, patient is not showing significant improvement in the last 10 days and I am recommending surgical evaluation for possible tracheostomy, and PEG tube placement, and eventually may require placement in [facility]. WBC count today is 8.7 hemoglobin 9.9 ABG as noted earlier electrolytes showed low potassium of 3.1, BUN of 42 creatinine 0.77 Patient was seen today on 08/17/2024, remains in the ICU, intubated and mechanically ventilated, patient is on assist-control rate of 20 tidal volume 500 FiO2 70% and I cut it down to 50% is PEEP remains 18 ABG today on 70% showed a pO2 of 113 pCO2 43 pH of 7.50. Will try to cut down the FiO2 to 50% and keep PEEP for now at 18 however the patient continues to maintain adequate O2 saturation may cut down the PEEP down to 16. Chest x-ray shows slight improvement compared to yesterday however patient is on a higher PEEP which may be misleading. Patient remains on propofol at 15 mg/kg/min vital HP at 50 cc/h. Patient is on Lasix 40 mg IV push twice daily remains on Eliquis. Off antibiotics, Remains on GI and DVT prophylaxis and mostly diuretics. Procalcitonin level came down to 0.18 hence will not restart antibiotics at this point. Sputum cultures are pending Seen today on 08/18/2024, patient remains in the ICU, intubated and mechanically ventilated, underwent uneventful tracheostomy yesterday, however a PEG tube could not be placed mostly because of his body habitus, surgery will consider open method for placement of the gastrostomy or jejunostomy tube down the line if felt to be necessary next week. In the meantime the patient is intubated mechanically ventilated he is on assist-control rate of 20 tidal volume 500 FiO2 50% PEEP of 16 I cut it down to 14, ABG showed a pO2 of 77 pCO2 41 pH of 7.52 EEG showed severe metabolic encephalopathy patient remains on propofol at 15 m cg/kg/min which I have discontinued today to fully assess mental status off sedation completely remains on enteral feeding patient is receiving tube feeding via nasogastric tube, patient is status post tracheostomy on 08/17/2024 remains on Eliquis remains on Lasix chest x-ray showing slight improvement but again patient is on relatively high PEEP. WBC count is 11.1 hemoglobin 10.3 platelets 512, basic metabolic profile is normal except for low potassium of 3.2 BUN is 53 creatinine 0.8. Patient was seen today on 08/19/2024, patient remains in the ICU, intubated and mechanically ventilated, he is on assist-control rate of 20 tidal volume 500 FiO2 50% PEEP 14 on the current down to 12 ABG showed a pO2 of 100 pCO2 44 pH of 7.50 patient remains on IV fluid at KVO 0.9 normal saline he is receiving vital HP at 50 cc/h his sputum cultures came back negative patient remains off antibiotics chest x-ray continues show a left lower lobe opacity and atelectasis, doubt pneumonia considering his procalcitonin level was normal and sputum was negative patient was on Zosyn which I have discontinued few days ago. Has been off sedation since yesterday, patient is waking up today, seems to follow simple instructions like squeezing hands, wiggling toes and opening eyes as well as sticking out his tongue but seems to be generally weak. WBC count is 11 hemoglobin is 11.2, basic metabolic profile is normal BUN is 56 creatinine 0.81 patient is still receiving enteral feeding via nasogastric tube, could not place PEG tube, however we will decide on the open approach for a PEG tube or jejunostomy tube next Thursday in the meantime I will continue to try possibly trials of weaning, and if I could get the patient to a trach collar, we could possibly deflate the cuff and address swallow evaluation. Seen today on 08/20/2024, patient remains in the ICU, intubated mechanically ventilated. Patient is on assist-control rate of 20 tidal volume 500 FiO2 50% and PEEP 12 I cut it down to 10 based on his ABG with pO2 of 100 pCO2 44 pH of 7.51 patient is awake, follows very simple instructions mostly squeezing hands, but does not wiggle toes today, patient is on vital AF at 55 mL/h, this is given via nasogastric tube, IV fluids at KVO, and he is on Eliquis. Remains on diuretics, he is off antibiotics. Chest x-ray is about the same, left lower lobe atelectasis noted, unchanged, procalcitonin level was normal hence patient has been off antibiotics. WBC count is 11.1 hemoglobin 10.8 basic metabolic profile is normal low potassium of 3.3 being addressed accordingly bicarb is 38 BUN is 58 creatinine 0.66, remains on diuretics. Objective - Vital Signs Vital signs: Vital Signs Temp 99.0 F 08/20/24 08:00 Pulse 79 08/20/24 10:00 Resp 23 08/20/24 10:00 BP 134/97 08/20/24 10:00 Pulse Ox 96 08/20/24 10:00 FiO2 50 08/20/24 08:27 Intake & Output 08/19/24 08/20/24 08/20/24 18:59 06:59 18:59 Intake Total 831 906 302 Output Total 1550 1620 615 Balance -719 -714 -313 Weight 188.6 kg 187.6 kg Intake: IV 156 156 52 KVO 120 120 40 Pressure Bag 36 36 12 Tube Feeding 585 660 220 Other 90 90 30 Output: Urine 1550 1620 615 Other: Voiding Method Indwelling Catheter Indwelling Catheter Indwelling Catheter # Bowel Movements 1 ABP, PAP, CO, CI - Last Documented Arterial Blood Pressure 134/82 - Exam GENERAL: 63-year-old white male awake seems to be generally weak, follows very minimal simple instructions/squeezing hands. HEENT: Pupils are round and equally reacting to light. EOMI. No scleral icterus. No conjunctival pallor. Normocephalic, atraumatic. No pharyngeal erythema. No thyromegaly. Tracheostomy is intact CARDIOVASCULAR: Normal S1-S2, no S3 gallop. PULMONARY: Good breath sound bilaterally no crackles rhonchi or wheezes Abdomen, obese soft nontender no megaly, no rebound, no guarding. MUSCULOSKELETAL: No joint swelling or deformity. EXTREMITIES: No cyanosis, clubbing, continues with 1+ bipedal edema NEUROLOGICAL: Arousable, follows simple instructions but generally weak Psychiatric: Unable to fully assess SKIN: Patient has a stage II skin ulcer at the distal lateral aspect of the right lower extremity/chronic - Labs CBC & Chem 7: 08/20/24 04:15 08/20/24 04:15 Labs: Abnormal Lab Results - Last 24 Hours (Table) 08/19/24 08/19/24 08/19/24 Range/Units 11:45 18:23 23:09 WBC (3.8-10.6) k/uL Hgb (13.0-17.5) gm/dL Hct (39.0-53.0) % MCV (80.0-100.0) fL MCH (25.0-35.0) pg MCHC (31.0-37.0) g/dL RDW (11.5-15.5) % Plt Count (150-450) k/uL Neutrophils # (1.3-7.7) k/uL Lymphocytes # (1.0-4.8) k/uL ABG pH (7.35-7.45) ABG HCO3 (21-25) mmol/L ABG Total CO2 (19-24) mmol/L ABG O2 Saturation (94-97) % Hemoglobin (13.0-17.5) gm/dL Potassium (3.5-5.1) mmol/L Chloride (98-107) mmol/L Carbon Dioxide (22-30) mmol/L BUN (9-20) mg/dL Glucose (74-99) mg/dL POC Glucose (mg/dL) 245 H 228 H 259 H (70-110) mg/dL 08/20/24 08/20/24 08/20/24 Range/Units 04:15 04:15 05:44 WBC 11.1 H (3.8-10.6) k/uL Hgb 10.8 L (13.0-17.5) gm/dL Hct 36.7 L (39.0-53.0) % MCV 75.7 L (80.0-100.0) fL MCH 22.4 L (25.0-35.0) pg MCHC 29.6 L (31.0-37.0) g/dL RDW 16.1 H (11.5-15.5) % Plt Count 486 H (150-450) k/uL Neutrophils # 9.5 H (1.3-7.7) k/uL Lymphocytes # 0.6 L (1.0-4.8) k/uL ABG pH (7.35-7.45) ABG HCO3 (21-25) mmol/L ABG Total CO2 (19-24) mmol/L ABG O2 Saturation (94-97) % Hemoglobin (13.0-17.5) gm/dL Potassium 3.3 L (3.5-5.1) mmol/L Chloride 95 L (98-107) mmol/L Carbon Dioxide 38 H (22-30) mmol/L BUN 58 H (9-20) mg/dL Glucose 218 H (74-99) mg/dL POC Glucose (mg/dL) 232 H (70-110) mg/dL 08/20/24 Range/Units 05:44 WBC (3.8-10.6) k/uL Hgb (13.0-17.5) gm/dL Hct (39.0-53.0) % MCV (80.0-100.0) fL MCH (25.0-35.0) pg MCHC (31.0-37.0) g/dL RDW (11.5-15.5) % Plt Count (150-450) k/uL Neutrophils # (1.3-7.7) k/uL Lymphocytes # (1.0-4.8) k/uL ABG pH 7.51 H (7.35-7.45) ABG HCO3 35 H (21-25) mmol/L ABG Total CO2 37 H (19-24) mmol/L ABG O2 Saturation 98.5 H (94-97) % Hemoglobin 10.7 L (13.0-17.5) gm/dL Potassium (3.5-5.1) mmol/L Chloride (98-107) mmol/L Carbon Dioxide (22-30) mmol/L BUN (9-20) mg/dL Glucose (74-99) mg/dL POC Glucose (mg/dL) (70-110) mg/dL Assessment and Plan Assessment: Impression: Acute hypoxic respiratory failure requiring intubation mechanical ventilation, multifactorial Acute COVID-19 pneumonia Acute fluid overload and bilateral pleural effusions most likely secondary to diastolic congestive heart failure Chronic atrial fibrillation Morbid obesity New onset seizure activity, on Keppra History of CVA Benign essential hypertension Obesity hypoventilation syndrome with BMI of 63.9 Obstructive sleep apnea syndrome Congestive heart failure with preserved LV function Type 2 diabetes Iron deficiency anemia History of polysubstance abuse History of right foot diabetic infection with previous incision and drainage in July 04, 2023 Status post endotracheal tube changed on 08/16 Status post tracheostomy on 08/17/2019's 5 Recommendation: Continue ventilatory support, patient will have PEEP down to 10 today keep FiO2 at 50% Chest x-ray seems to be reassuring Continue diuretics including Lasix and Zaroxolyn Continue to hold propofol Continue Keppra Continue Eliquis Continue nutritional support/enteral feeding May or may not require PEG tube placement, open approach this will be decided next week surgeon is aware. Continue GI and DVT prophylaxis Patient remains critically ill Critical care time is over 30 Time with Patient: Greater than 30
[2024-08-20 11:29] LABS: Glucose,Whole Blood 218 mg/dL (70-110)
--- NOTE | 2024-08-20 14:05 | P.PN ---
Subjective Progress Note Date: 08/20/24 Principal diagnosis: Reason for follow-up is pneumonia Patient is a 63-year-old male with a past medical history significant for diabetes mellitus hypertension hyperlipidemia atrial fibrillation sleep apnea patient has been brought to the hospital in respiratory distress, patient noted to be at has been reviewed the ICU tested positive for COVID subsequently did have persistent fever and white count concerning for possible aspiration pneumonia prompting this consultation. On today's evaluation that is Patient is status post tracheostomy completed on 08/17/2024, attempted PEG tube placement which could not be placed because of morbid obesity and very thick abdominal wall. On today's evaluation that is 08/20/2024, patient continues to be afebrile patient remains to be intubated on the vent through the trach FiO2 is currently stable at 50% no significant purulent secretions through the ET diarrhea or any other changes reported by the nursing staff. Patient white count is 11.1 creatinine 0.66 catheter sputum and blood culture negative Objective - Vital Signs Vital signs: Vital Signs Temp 99.1 F 08/20/24 12:00 Pulse 60 08/20/24 12:00 Resp 20 08/20/24 12:00 BP 134/99 08/20/24 12:00 Pulse Ox 96 08/20/24 12:00 FiO2 50 08/20/24 12:00 Intake & Output 08/19/24 08/20/24 08/20/24 18:59 06:59 18:59 Intake Total 831 906 468 Output Total 1550 1620 1165 Balance -719 -714 -697 Weight 188.6 kg 187.6 kg Intake: IV 156 156 78 KVO 120 120 60 Pressure Bag 36 36 18 Tube Feeding 585 660 330 Other 90 90 60 Output: Urine 1550 1620 1165 Other: Voiding Method Indwelling Catheter Indwelling Catheter Indwelling Catheter # Bowel Movements 1 ABP, PAP, CO, CI - Last Documented Arterial Blood Pressure 144/78 - Exam GENERAL DESCRIPTION: Middle-age man intubated through the trach on the vent RESPIRATORY SYSTEM: Unlabored breathing , decreased breath sounds at bases HEART: S1 S2 regular rate and rhythm , ABDOMEN: Soft , mild distention EXTREMITIES: Right groin wound currently dressed - Labs CBC & Chem 7: 08/20/24 04:15 08/20/24 04:15 Labs: Abnormal Lab Results - Last 24 Hours (Table) 08/19/24 08/19/24 08/20/24 Range/Units 18:23 23:09 04:15 WBC 11.1 H (3.8-10.6) k/uL Hgb 10.8 L (13.0-17.5) gm/dL Hct 36.7 L (39.0-53.0) % MCV 75.7 L (80.0-100.0) fL MCH 22.4 L (25.0-35.0) pg MCHC 29.6 L (31.0-37.0) g/dL RDW 16.1 H (11.5-15.5) % Plt Count 486 H (150-450) k/uL Neutrophils # 9.5 H (1.3-7.7) k/uL Lymphocytes # 0.6 L (1.0-4.8) k/uL ABG pH (7.35-7.45) ABG HCO3 (21-25) mmol/L ABG Total CO2 (19-24) mmol/L ABG O2 Saturation (94-97) % Hemoglobin (13.0-17.5) gm/dL Potassium (3.5-5.1) mmol/L Chloride (98-107) mmol/L Carbon Dioxide (22-30) mmol/L BUN (9-20) mg/dL Glucose (74-99) mg/dL POC Glucose (mg/dL) 228 H 259 H (70-110) mg/dL 08/20/24 08/20/24 08/20/24 Range/Units 04:15 05:44 05:44 WBC (3.8-10.6) k/uL Hgb (13.0-17.5) gm/dL Hct (39.0-53.0) % MCV (80.0-100.0) fL MCH (25.0-35.0) pg MCHC (31.0-37.0) g/dL RDW (11.5-15.5) % Plt Count (150-450) k/uL Neutrophils # (1.3-7.7) k/uL Lymphocytes # (1.0-4.8) k/uL ABG pH 7.51 H (7.35-7.45) ABG HCO3 35 H (21-25) mmol/L ABG Total CO2 37 H (19-24) mmol/L ABG O2 Saturation 98.5 H (94-97) % Hemoglobin 10.7 L (13.0-17.5) gm/dL Potassium 3.3 L (3.5-5.1) mmol/L Chloride 95 L (98-107) mmol/L Carbon Dioxide 38 H (22-30) mmol/L BUN 58 H (9-20) mg/dL Glucose 218 H (74-99) mg/dL POC Glucose (mg/dL) 232 H (70-110) mg/dL 08/20/24 Range/Units 11:27 WBC (3.8-10.6) k/uL Hgb (13.0-17.5) gm/dL Hct (39.0-53.0) % MCV (80.0-100.0) fL MCH (25.0-35.0) pg MCHC (31.0-37.0) g/dL RDW (11.5-15.5) % Plt Count (150-450) k/uL Neutrophils # (1.3-7.7) k/uL Lymphocytes # (1.0-4.8) k/uL ABG pH (7.35-7.45) ABG HCO3 (21-25) mmol/L ABG Total CO2 (19-24) mmol/L ABG O2 Saturation (94-97) % Hemoglobin (13.0-17.5) gm/dL Potassium (3.5-5.1) mmol/L Chloride (98-107) mmol/L Carbon Dioxide (22-30) mmol/L BUN (9-20) mg/dL Glucose (74-99) mg/dL POC Glucose (mg/dL) 218 H (70-110) mg/dL Assessment and Plan (1) Pneumonia Current Visit: Yes Status: Acute Code(s): J18.9 - PNEUMONIA, UNSPECIFIED ORGANISM SNOMED Code(s): 163531390 (2) COVID-19 Current Visit: Yes Status: Acute Code(s): U07.1 - COVID-19 SNOMED Code(s): 975208520 Plan: 1patient presented to hospital about 5 days before initial evaluation in this patient came with acute respiratory failure requiring intubation patient did have features of sepsis as the patient did have fever elevated white count and tachycardia though tested positive for COVID-19 and did have procalcitonin 0.22 on admission and antibiotics not started initially however has been started yesterday and the patient feel better and seem to improving highly concerning for secondary bacterial pneumonia responsible for his fever and elevated white c ount 2-blood and sputum culture have been negative so far 3-patient did have resolution of his fever and white count has normalized, Zosyn has been discontinued as oF 08/14/2024 4patient right femoral central line has been discontinued catheter tip as well as local culture will continue current wound care with the [facility] and the patient will monitor closely off antibiotic therapy at this point Dictation was produced using [employer] dictation software. please excuse any grammatical, word or spelling errors. Time with Patient: Less than 30
[2024-08-20] MEDS: ENOXAPARIN 80 MG/0.8 ML SYRINGE SQ SCH (15:04)
--- NOTE | 2024-08-20 16:06 | P.PN ---
Subjective Progress Note Date: 08/20/24 CHIEF COMPLAINT: Status post tracheostomy HISTORY OF PRESENT ILLNESS: The patient is a 63-year-old male with morbid obesity in the intensive care unit status post tracheostomy. Patient is on the ventilator and pending gastrostomy tube placement. Due to the patient's large body habitus, endoscopic placement was unsuccessful. Patient was admitted due to unresponsiveness loss of consciousness at the time of admission ROS: No reports of nausea and vomiting. No fevers or chills. PHYSICAL EXAM: VITAL SIGNS: Reviewed CONSTITUTIONAL: Well developed and in no acute distress. EYES: Conjuctivae without sclera icterus. Extraocular movements grossly intact. HEAD, EARS, NOSE, THROAT: Moist buccal mucosa. Head is atraumatic, normocephalic. Hears conversational speech. No nasal drainage. Tracheostomy intact. RESPIRATORY: Non-labored respirations and equal bilateral excursions. Mechanically ventilated. CARDIOVASCULAR: Palpable 2+ radial pulses. ABDOMEN: Nontender MUSCULOSKELETAL: No gross deformity of the lower extremities noted. No clubbing. No cyanosis. SKIN: Good skin turgor. Well perfused. NEUROLOGIC: Cranial nerves II through XII grossly intact. No focal or lateralizing signs. PSYCH: Appropriate affect. Alert and oriented to person, place and time. CLINICAL LABS: Reviewed. WBC elevated over 11,000. ASSESSMENT: 1. Acute hypoxic respiratory failure 2. Morbid obesity to excess calories, BMI 56 point 3. Leukocytosis 4. Status post tracheostomy PLAN: 1. Patient is status post tracheostomy will need form of nutrition preferably enteral feeding. Due to patient's body habitus, endoscopic placement cannot be performed. 2. Alternative for nutrition interim includes Dobbhoff versus TPN versus open gastrostomy tube Objective - Vital Signs Vital signs: Vital Signs Temp 99.1 F 08/20/24 12:00 Pulse 82 08/20/24 14:00 Resp 20 08/20/24 14:00 BP 102/78 08/20/24 13:00 Pulse Ox 95 08/20/24 14:00 FiO2 50 08/20/24 15:31 Intake & Output 08/19/24 08/20/24 08/20/24 18:59 06:59 18:59 Intake Total 831 906 604 Output Total 1550 1620 1340 Balance -719 -714 -736 Weight 188.6 kg 187.6 kg Intake: IV 156 156 104 KVO 120 120 80 Pressure Bag 36 36 24 Tube Feeding 585 660 440 Other 90 90 60 Output: Urine 1550 1620 1340 Other: Voiding Method Indwelling Catheter Indwelling Catheter Indwelling Catheter # Bowel Movements 1 ABP, PAP, CO, CI - Last Documented Arterial Blood Pressure 161/83 - Labs CBC & Chem 7: 08/20/24 04:15 08/20/24 04:15 Labs: Abnormal Lab Results - Last 24 Hours (Table) 08/19/24 08/19/24 08/20/24 Range/Units 18:23 23:09 04:15 WBC 11.1 H (3.8-10.6) k/uL Hgb 10.8 L (13.0-17.5) gm/dL Hct 36.7 L (39.0-53.0) % MCV 75.7 L (80.0-100.0) fL MCH 22.4 L (25.0-35.0) pg MCHC 29.6 L (31.0-37.0) g/dL RDW 16.1 H (11.5-15.5) % Plt Count 486 H (150-450) k/uL Neutrophils # 9.5 H (1.3-7.7) k/uL Lymphocytes # 0.6 L (1.0-4.8) k/uL ABG pH (7.35-7.45) ABG HCO3 (21-25) mmol/L ABG Total CO2 (19-24) mmol/L ABG O2 Saturation (94-97) % Hemoglobin (13.0-17.5) gm/dL Potassium (3.5-5.1) mmol/L Chloride (98-107) mmol/L Carbon Dioxide (22-30) mmol/L BUN (9-20) mg/dL Glucose (74-99) mg/dL POC Glucose (mg/dL) 228 H 259 H (70-110) mg/dL 08/20/24 08/20/24 08/20/24 Range/Units 04:15 05:44 05:44 WBC (3.8-10.6) k/uL Hgb (13.0-17.5) gm/dL Hct (39.0-53.0) % MCV (80.0-100.0) fL MCH (25.0-35.0) pg MCHC (31.0-37.0) g/dL RDW (11.5-15.5) % Plt Count (150-450) k/uL Neutrophils # (1.3-7.7) k/uL Lymphocytes # (1.0-4.8) k/uL ABG pH 7.51 H (7.35-7.45) ABG HCO3 35 H (21-25) mmol/L ABG Total CO2 37 H (19-24) mmol/L ABG O2 Saturation 98.5 H (94-97) % Hemoglobin 10.7 L (13.0-17.5) gm/dL Potassium 3.3 L (3.5-5.1) mmol/L Chloride 95 L (98-107) mmol/L Carbon Dioxide 38 H (22-30) mmol/L BUN 58 H (9-20) mg/dL Glucose 218 H (74-99) mg/dL POC Glucose (mg/dL) 232 H (70-110) mg/dL 08/20/24 Range/Units 11:27 WBC (3.8-10.6) k/uL Hgb (13.0-17.5) gm/dL Hct (39.0-53.0) % MCV (80.0-100.0) fL MCH (25.0-35.0) pg MCHC (31.0-37.0) g/dL RDW (11.5-15.5) % Plt Count (150-450) k/uL Neutrophils # (1.3-7.7) k/uL Lymphocytes # (1.0-4.8) k/uL ABG pH (7.35-7.45) ABG HCO3 (21-25) mmol/L ABG Total CO2 (19-24) mmol/L ABG O2 Saturation (94-97) % Hemoglobin (13.0-17.5) gm/dL Potassium (3.5-5.1) mmol/L Chloride (98-107) mmol/L Carbon Dioxide (22-30) mmol/L BUN (9-20) mg/dL Glucose (74-99) mg/dL POC Glucose (mg/dL) 218 H (70-110) mg/dL
--- NOTE | 2024-08-20 16:08 | P.PN ---
Subjective Progress Note Date: 08/20/24 Patient in the intensive care unit currently intubated and sedated on the mechanical ventilator. Patient's chest x-ray today does reveal worsening CHF. He is significantly edematous. Remains sedated with IV fentanyl and propofol. He continues on IV Zosyn. Patient was started on enteral feedings today. blood sugars are elevated in the 200s. 08/07/2024 Patient was evaluated in follow-up in the medical floor he is currently intubated and sedated on the mechanical ventilator. Patient had gone into atrial fibrillation with rapid ventricular rate overnight requiring IV Cardizem. He has been since transition to oral metoprolol with heart rate better controlled today. He does have a noted history of atrial fibrillation was resumed on his oral Eliquis yesterday. Patient currently has LR running at 75 mL/h he does remain quite edematous mostly in his lower extremities. Patient was noted to have a small amount of yellow bile emesis there has been no residual with his tube feedings and they are continued at a slow rate today of 10 mL/h. He is febrile today temperature of 100.8. An abdominal x-ray was unable to be completed due to patient's body habitus and he is unable to be transported down for x-ray at this time. 08/08/2024 Patient is seen in follow-up in the ICU and overnight placed on mechanical ventilation as patient was noted to have what appeared to be seizure-like activity with no history of seizures and neurology was consulted. Patient was placed on mechanical ventilation currently with an FiO2 of 60% and PEEP is 10 with pulmonary mammal control agent following. Patient remains with low-grade temps and also started on Keppra and is maintained on antibiotics. Cardiology following as well maintained on oral anticoagulation and has been having heart rates in the 40s. Continued on low-dose metoprolol and will continue to monitor closely. Per nursing staff patient also requiring low-dose Levophed and has been started on 40 of IV Lasix daily due to significant swelling. Will follow-up on repeat labs and continue to monitor closely. 08/09/2024 Patient is seen in follow-up with multiple consultations following including pulmonary, neurology, cardiology, and infectious disease consulted. Patient underwent EEG which was abnormal with no epileptiform discharges noted. Patient is continued on Keppra for now. Heart rates in the low 40s although per nursing staff slightly improved this afternoon and is being monitored closely with cardiology following. Patient is continued on Lasix for diuresis with significant volume overload. Wean pressors as tolerated and follow-up on repeat labs. Patient's blood sugars have been more elevated and possible steroid effect will increase long-acting and also Accu-Cheks before meals and at bedtime as well as sliding scale. Adjust accordingly. 08/10/2024 Patient is seen in follow-up today continues on mechanical ventilation in the ICU with an FiO2 of 80% and PEEP is 14. Undergoing sedation holidays and per nursing staff patient will open his eyes and attempt to track although not moving. Patient continues to be extremely edematous and is diuresing maintained on IV Lasix. Heart rates slightly improved and will continue current regimen per cardiology. No plans on extubation at this time. Per nursing staff patient has not had a bowel movement and is continued on bowel regimen. Abdomen is soft and there is positive bowel sounds noted. Patient continued on tube feeds. Highly recommend aspiration precautions and head of the bed elevated 30 to 45 degrees at all times. 08/12/2024 Patient is seen in follow-up today remains in the ICU with multiple consultations following. PEEP remains high at 16 with an FiO2 of 70% and per nursing staff has been having some desaturations and is being increased to 80% FiO2. Patient is maintained on metolazone along with IV Lasix and potassium borderline daily being replaced will add daily supplementation. Patient is having adequate diuresis and kidney functions are stable. Patient undergoing sedation holidays daily with no plans of weaning and extubation at this time. Patient is afebrile and maintained on IV Decadron along with Zosyn. Continue bowel regimen patient does have positive bowel sounds and is tolerating tube feeds at this time. Recommend aspiration precautions with head of the bed elevated 45 degrees at all times. 08/13/2024 Patient evaluated in the intensive care unit with multiple consultations following. Patient remains on the mechanical ventilator with a PEEP of 16 and FiO2 of 70%. Patient is appropriately arousable during sedation holidays. No plans for extubation at this time. Patient continues on IV Zosyn continues on IV Lasix IV Diamox and continues on oral zaroxolyn. Lower extremities remain significantly edematous. Patient is continued on enteral feedings now at goal running at 55 mL/h. Blood glucose has been elevated in the 200s. Chest x-ray today reveals a left-sided pleural effusion. 08/14/2024 Patient eval today in follow-up in the intensive care unit patient remains on mechanical ventilator, FiO2 down to 50%. Chest x-ray today reveals stable left lower lobe infiltrate and effusion. Patient remains on IV decadron daily. IV lasix 40 mg Q12 hour. Increased urine output over the last 24 hours. Lower extremity edema has mildly improved. Bowels are moving. Patient is tolerating enteral feeding. IV zosyn has been discontinued. WBC 8.3, hgb 9.2, sodium 133, BUN 34, creatinine 0.90, magnesium 1.9. Patient evaluated today in follow up in the ICU. Vent settings were decreased yesterday to 50% FiO2 with a PEEP of 12, patient became increasingly hypoxic. Vent settings increased back up to 70% fio2 and PEEP of 16. Remains on IV decadron daily. Continues on IV lasix 40 mg Q12 hour as well as oral zaroxolyn. Chest xray today shows left perihilar infiltrate and small left pleural effusion. Patient remains on enteral feedings with Vital HP running at goal of 50 mls/hr and tolerating. Blood glucose remains elevated in the 200-300s. Labs revealing white blood cell count 7.2, hgb 9.5, sodium 132, BUN 38, creatinine 0.85. Procal 0.18. TSH 1.780. 08/16/2023 Patient evaluated today in the ICU. Remains on mechanical ventilator with PEEP of 70% FiO2 of 16. Chest xray today reveals mild right upper lobe infiltrate. Additional mild infiltrate may be at the left base. General surgery consulted for tracheostomy and PEG tube placement. White blood cell count 8.7, hgb 9.9, sodium 132, potassium 4.5, BUN 42, creatinine 0.77. 08/17/2023 Was evaluated today in the intensive care unit. Patient remains on mechanical ventilator with an FiO2 of 60% and PEEP of 18. X-ray today reveals a mild perihilar increased lung markings stable from comparison. Patient catheter tip are currently negative. His white blood blood count is normal at 8.5, hemoglobin 9.7, sodium 134, BUN of 47 and creatinine of 0.75. Is currently on IV Solu-Medrol 60 mg every 6 hours. He is sedated with propofol. He is on IV Keppra. He is currently off antibiotic at this time. 08/18/2023 Patient is status post tracheostomy placement continues on the mechanical ventilator, FiO2 of 50% and PEEP of 16. Patient continues to have evidence of altered mentation with EEG showing severe metabolic encephalopathy. 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 He continues on IV Lasix with slight improvement on the chest x-ray today. The PEG tube was unable to be placed secondary to body habitus. Labs today reveal a white blood cell count 11.1, hemoglobin 10.3, sodium 134, potassium 3.2, BUN 53 creatinine of 0.80. 08/19/2024 Patient is seen in follow-up continues in the ICU status post tracheostomy placement currently off sedation and awake today opening eyes and eye tracking attempting to follow commands although is significantly weak. Patient continues on assist mode and FiO2 is 50% and PEEP was decreased to 12. Multiple consultations following including general surgery as they were unable to place a PEG tube and will continue with tube feeds via NG. Considering possible open gastrostomy tube given patient's body habitus. Patient is afebrile and being monitored with infectious disease following off antibiotic therapy. Patient also continues on IV diuresis and tolerating well. Patient being followed by pulmonary attempting to wean as tolerated and also maintained on steroids with mildly elevated blood sugars more so than normal in the 200s will slightly increase long-acting insulin and monitor closely. Follow-up with repeat labs. Case management also following in the event patient will require possible LTAC admission. 08/20/2024 Patient is evaluated today in follow up on the intensive care unit. Patient is status post tracheostomy placement. He remains off sedation. Eyes are opening to verbal stimulation and tracing and following simple commands he is significantly weak. He remains on the mechanical ventilator with FiO2 of 50% and PEEP of 10. He is being considered for trial of CPAP tomorrow. chest xray today reveals stable left lower lobe airspace disease stable support tubes and lines. Patient continues on IV lasix 40 mg every 12 hours. White blood cell count today 11.1, hgb 10.8, sodium 138, potassium 3.3, BUN 58, creatinine 0.66, magnesium 2.1. Unable to complete review of systems as patient is currently intubated and sedated PHYSICAL EXAMINATION: GENERAL: The patient is intubated and awake but very lethargic. Fatigues easily although does respond to name and eye tracking and blinking eyes. He is morbidly obese, well-developed, elderly appearing, extremely edematous of upper and lower extremities and body habitus, ill-appearing. FiO2 is currently 50% with a PEEP of 12 HEENT: Pupils are round and equally reacting to light. EOMI. No scleral icterus. No conjunctival pallor. Normocephalic, atraumatic. No pharyngeal erythema. No thyromegaly. CARDIOVASCULAR: S1 and S2 muffled, irregular PULMONARY: Diminished breath sounds bilaterally otherwise chest is clear to auscultation, no wheezing , no crackles. ABDOMEN: Soft, obese, nontender, nondistended, normoactive bowel sounds. No palpable organomegaly. Kelly catheter in place MUSCULOSKELETAL: No joint swelling or deformity. EXTREMITIES: No cyanosis, clubbing, continues with significant lower extremity edema bilaterally pitting right lower leg superficial wound is improved with no significant redness and some mild flaking of the skin noted NEUROLOGICAL: Awake although fatigues easily, eye-opening and responding to name, tracking, attempting to follow simple commands extremely weak SKIN: No rashes. no petechiae. Assessment: Acute hypoxic respiratory failure requiring intubation on admission, currently on mechanical ventilation, FiO2 is 50% with PEEP of 12. Status post tracheostomy on 08/17/2024 COVID infection and possible pneumonia, concerns for aspiration pneumonia Possible seizure like activity, new onset, EEG was abnormal although not showing any epileptiform discharges, continued on Keppra for now with neurology following Possible acute COPD exacerbation versus obesity hypoventilation syndrome Possible bacterial pneumonia, healthcare associated with right upper lobe and left lower lobe infiltrates, ruled out, white count is normal and patient is off antibiotics, cultures are negative Severe sepsis requiring pressor support Acute on chronic diastolic heart failure with preserved EF A-fib and RVR, present on admission with slow ventricular rate dropping into the 30s. Patient heart rate slightly improving and will continue current regimen per cardiology Right leg wound with recent cultures showing enterococcus faecalis, ESBL and Providencia Rettgeri Diabetes Mellitus type 2, uncontrolled with hyperglycemia Steroid induced hyperglycemia Morbid obesity with a BMI of 64.2 Chronic anemia Lactic acidemia/acidosis, improved GI prophylaxis DVT prophylaxis Full Code Plan: Patient has completed course of antibiotic therapy and remains off zosyn at this time. Infectious diseases following and will continue with wound care Mechanical ventilator per mammal control agent. No plans for extubation at this time and undergoing sedation holidays. Patient is status post tracheostomy on 08/17/2024 Continue enteral feedings, tube feeds were resumed and tolerating thus far.. Continue with aspiration precautions and head of the bed elevated 45 degrees at all times and monitor closely for residuals Continue bowel regimen and also daily suppositories. PEG was unable to be placed by general surgery secondary to patient's body habitus. Will need to be open gastrostomy tube placement per surgery and awaiting consent Patient does not have history of seizures and was started on Keppra and neurology following underwent EEG which was abnormal although not showing any epileptiform discharges. No further seizure-like activity noted. Neurology following as needed Per pulmonary mammal control agent patient is continued on IV Lasix every 12 hours. And will continue to monitor kidney functions closely. Replace electrolytes per protocol. Daily supplementation of potassium ordered Continue eliquis and monitor for any signs of bleeding. Continue with Accu-Cheks [id number] sliding scale along with long-acting. Levemir will be slightly increased to 60 units SQ BID and also continue novolog scale which has been adjusted to high dose He is continued on IV Solu-Medrol Repeat blood work in the AM Overall prognosis is guarded Case management following in the event patient may require possible LTAC. Pulmonary mammal control agent planning on weaning as tolerated and was able to decrease the rate of PEEP to 10 and is continued at 50% FiO2. Mentation is improving and patient is maintained off propofol. Patient is significantly weak and has had prolonged hospitalization. Patient will require extensive physical rehab as well as tracheostomy care. Awaiting to discuss further regarding G-tube insertion and will continue with NG tube for now. Continue with aspiration precautions. CODE STATUS remains full code at this time The impression and plan of care has been dictated by Susannah Campbell Nurse Practitioner as directed. Dr. Jackie MD I have performed a history and physical examination and medical decision making of this patient, discussed the same with the dictator, and agree with the dictators assessment and plan as written, documented as a scribe. Based on total visit time, I have performed more than 50% of this visit. Objective - Vital Signs Vital signs: Vital Signs Temp 99.1 F 08/20/24 12:00 Pulse 82 08/20/24 14:00 Resp 20 08/20/24 14:00 BP 102/78 08/20/24 13:00 Pulse Ox 95 08/20/24 14:00 FiO2 50 08/20/24 12:00 Intake & Output 08/19/24 08/20/24 08/20/24 18:59 06:59 18:59 Intake Total 831 906 604 Output Total 1550 1620 1340 Balance -719 -714 -736 Weight 188.6 kg 187.6 kg Intake: IV 156 156 104 KVO 120 120 80 Pressure Bag 36 36 24 Tube Feeding 585 660 440 Other 90 90 60 Output: Urine 1550 1620 1340 Other: Voiding Method Indwelling Catheter Indwelling Catheter Indwelling Catheter # Bowel Movements 1 ABP, PAP, CO, CI - Last Documented Arterial Blood Pressure 161/83 - Labs CBC & Chem 7: 08/20/24 04:15 08/20/24 04:15 Labs: Abnormal Lab Results - Last 24 Hours (Table) 08/19/24 08/19/24 08/20/24 Range/Units 18:23 23:09 04:15 WBC 11.1 H (3.8-10.6) k/uL Hgb 10.8 L (13.0-17.5) gm/dL Hct 36.7 L (39.0-53.0) % MCV 75.7 L (80.0-100.0) fL MCH 22.4 L (25.0-35.0) pg MCHC 29.6 L (31.0-37.0) g/dL RDW 16.1 H (11.5-15.5) % Plt Count 486 H (150-450) k/uL Neutrophils # 9.5 H (1.3-7.7) k/uL Lymphocytes # 0.6 L (1.0-4.8) k/uL ABG pH (7.35-7.45) ABG HCO3 (21-25) mmol/L ABG Total CO2 (19-24) mmol/L ABG O2 Saturation (94-97) % Hemoglobin (13.0-17.5) gm/dL Potassium (3.5-5.1) mmol/L Chloride (98-107) mmol/L Carbon Dioxide (22-30) mmol/L BUN (9-20) mg/dL Glucose (74-99) mg/dL POC Glucose (mg/dL) 228 H 259 H (70-110) mg/dL 08/20/24 08/20/24 08/20/24 Range/Units 04:15 05:44 05:44 WBC (3.8-10.6) k/uL Hgb (13.0-17.5) gm/dL Hct (39.0-53.0) % MCV (80.0-100.0) fL MCH (25.0-35.0) pg MCHC (31.0-37.0) g/dL RDW (11.5-15.5) % Plt Count (150-450) k/uL Neutrophils # (1.3-7.7) k/uL Lymphocytes # (1.0-4.8) k/uL ABG pH 7.51 H (7.35-7.45) ABG HCO3 35 H (21-25) mmol/L ABG Total CO2 37 H (19-24) mmol/L ABG O2 Saturation 98.5 H (94-97) % Hemoglobin 10.7 L (13.0-17.5) gm/dL Potassium 3.3 L (3.5-5.1) mmol/L Chloride 95 L (98-107) mmol/L Carbon Dioxide 38 H (22-30) mmol/L BUN 58 H (9-20) mg/dL Glucose 218 H (74-99) mg/dL POC Glucose (mg/dL) 232 H (70-110) mg/dL 08/20/24 Range/Units 11:27 WBC (3.8-10.6) k/uL Hgb (13.0-17.5) gm/dL Hct (39.0-53.0) % MCV (80.0-100.0) fL MCH (25.0-35.0) pg MCHC (31.0-37.0) g/dL RDW (11.5-15.5) % Plt Count (150-450) k/uL Neutrophils # (1.3-7.7) k/uL Lymphocytes # (1.0-4.8) k/uL ABG pH (7.35-7.45) ABG HCO3 (21-25) mmol/L ABG Total CO2 (19-24) mmol/L ABG O2 Saturation (94-97) % Hemoglobin (13.0-17.5) gm/dL Potassium (3.5-5.1) mmol/L Chloride (98-107) mmol/L Carbon Dioxide (22-30) mmol/L BUN (9-20) mg/dL Glucose (74-99) mg/dL POC Glucose (mg/dL) 218 H (70-110) mg/dL Assessment and Plan Time with Patient: Less than 30
[2024-08-20 17:55] LABS: Glucose,Whole Blood 207 mg/dL (70-110)
[2024-08-20] MEDS: POTASSIUM BICARBONATE/CIT AC 20 MEQ TABLET.EFF NG-TUBE SCH (21:13)
[2024-08-20] MEDS: LORazepam 2 MG/ML INJ IV PRN (22:47)
[2024-08-20 23:32] LABS: Glucose,Whole Blood 188 mg/dL (70-110)
[2024-08-21] MEDS: POTASSIUM BICARBONATE/CIT AC 20 MEQ TABLET.EFF NG-TUBE SCH ×3 (00:39→13:00)
[2024-08-21 04:52] LABS: Anisocytosis Slight; Basophils % (A) 0 %; Eosinophils % (A) 0 %; HCT 39.8 % (39.0-53.0); HGB 11.5 gm/dL (13.0-17.5); Hypochromasia Marked; Lymphocytes # (A) 1.2 k/uL (1.0-4.8); Lymphocytes % (A) 6 %; MCHC 28.9 g/dL (31.0-37.0); MCV 76.3 fL (80.0-100.0); Mean Platelet Volume 6.7; Microcytosis Slight; Monocytes # (A) 1.7 k/uL (0-1.0); Monocytes % (A) 8 %; Neutrophils # (A) 17.1 k/uL (1.3-7.7); Neutrophils % (A) 85 %; Platelet Count 453 k/uL (150-450); RBC 5.22 m/uL (4.30-5.90); RDW 16.2 % (11.5-15.5); WBC 20.3 k/uL (3.8-10.6)
[2024-08-21 05:24] LABS: African American GFR (CKD) >90 (>60 ml/min/1.73 sqM); Anion Gap 7 mmol/L; Blood Urea Nitrogen 60 mg/dL (9-20); Calcium 9.7 mg/dL (8.4-10.2); Carbon Dioxide 37 mmol/L (22-30); Chloride 97 mmol/L (98-107); Glucose 159 mg/dL (74-99); Magnesium 2.1 mg/dL (1.6-2.3); Non-African American GFR(CKD) >90 (>60 ml/min/1.73 sqM); Potassium 3.8 mmol/L (3.5-5.1); Sodium 141 mmol/L (137-145)
[2024-08-21 05:37] LABS: Glucose,Whole Blood 147 mg/dL (70-110)
[2024-08-21 05:59] LABS: ABG Base Excess 14.2 mmol/L; ABG HCO3 39 mmol/L (21-25); ABG Oxygen Saturation 96.9 % (94-97); ABG PCO2 46 mmHg (35-45); ABG PH 7.53 (7.35-7.45); ABG PO2 80 mmHg (83-108); ABG TCO2 40 mmol/L (19-24)
[2024-08-21 06:07] LABS: Allen Test Performed? No
--- NOTE | 2024-08-21 06:31 | XR ---
EXAM: XR Chest, 1 View CLINICAL HISTORY: ITS.REASON XR Reason: NGT TECHNIQUE: Frontal view of the chest. COMPARISON: 08/20/2024 FINDINGS: Lungs: Unchanged hazy left base consolidation. Pleural space: Unremarkable. No pneumothorax. Heart: Unremarkable. No cardiomegaly. Mediastinum: Endotracheal tube terminates 4.3 cm above the level of the damian. Nasogastric tube terminates in the stomach. Normal mediastinal contour. Bones/joints: Unremarkable. No acute fracture. IMPRESSION: 1. Stable lines and tubes. 2. Unchanged hazy lateral left base consolidation.
--- NOTE | 2024-08-21 07:08 | XR ---
EXAMINATION TYPE: XR chest 1V portable DATE OF EXAM: 08/21/2024 4:04 AM COMPARISON: Chest radiograph from one day prior. CLINICAL INDICATION: Male, 63 years old with history of trach - vent; [facility] TECHNIQUE: XR chest 1V portable Frontal view of the chest. FINDINGS: Lungs/Pleura: Left lower lobe airspace disease. There is no evidence of pleural effusion, focal conso lidation, or pneumothorax. Pulmonary vascularity: Unremarkable. Heart/mediastinum: Cardiomediastinal silhouette is unremarkable. Musculoskeletal: No acute osseous pathology. Other findings: None Lines/Tubes: Tracheostomy cannula tip projecting over the trachea. Nasogastric tube with its distal tip and side-port projecting under the diaphragm and projecting over the gastric lumen. Left-sided PICC with distal tip at the superior vena cava. IMPRESSION: Stable left lower lobe airspace disease, stable support tubes and line. [facility], , 08/21/2024 7:05 AM
[2024-08-21] MEDS: PIPERACILLIN-TAZOBACTAM 3.375 GM in SODIUM CHLORIDE 0.9% 100 ML IVPB SCH (10:15)
--- NOTE | 2024-08-21 11:30 | P.PN ---
Subjective Progress Note Date: 08/21/24 Principal diagnosis: Acute hypoxic respiratory failure, multifactorial On 08/08/2024, the patient is being seen in follow-up in the intensive care unit. This is a morbidly obese 63-year-old male patient who is currently intubated on the mechanical ventilator. Initially presented to us on 08/05/2024 for respiratory distress and the patient became unresponsive. He is known to have morbid obesity, COPD, chronic A-fib, CVA, hypertension hyperlipidemia. He resides in a residential and the patient was found to be unresponsive and not breathing properly. His pulse ox was also very low and the patient was hypotensive and minimally responsive. He came into the emergency department where he was intubated and placed on the mechanical ventilator. Since admission, the patient was found to be COVID-19 positive. He had a follow-up chest x-ray today that shows significant rotation, ET tube is probably 1 cm above the damian and there is evidence of left lower lobe consolidati on/effusion. Noted at the time of admission, he had also a right upper lobe consolidation in addition to left lower lobe consolidation. Sputum samples have been negative as collected on 08/05/2024 and blood cultures been also negative. No significant leukocytosis. The patient is currently on no antibiotics. The patient is on propofol which is running at 30 mcg/kg/min, and is also on fentanyl at 1 mcg/kg/h.. The patient is on assist-control mode of mechanical ventilation at rate of 20, tidal volume of 500, FiO2 of 60 % with a PEEP of 10. Blood gases from today shows a pH of 7.46 with a pCO2 of 51 and pO2 of 69 and this was an FiO2 of 60%. The patient is on lactated Ringer at rate of 75 cc an hour. The patient receiving vital high-protein at rate of 55 cc an hour. He remains in atrial fibrillation with rapid ventricular response. He is off Cardizem drip . He is also on metoprolol 12.5 mg twice a day and anticoagulation with Eliquis 5 mg p.o. twice a day. He is on Levemir insulin 15 units at bedtime. Earlier this morning, the patient noted to have episodic generalized tonic-clonic seizure-like activity. The patient was kept on propofol. He was given Ativan 2 mg IV push x 2 and started on Keppra. CAT scan of the brain is to follow. EEG is to follow. Neurology consultation is to follow. The patient is on lactated Ringer at rate of 75 cc an hour. Norepinephrine was also started this morning and is currently running at 0.03 mcg/kg/min. He is on EN , vital HP at 35 cc/hr On 08/09/2024, the patient is being seen for a follow-up. The patient remains intubated on the mechanical ventilator. This morning, the patient is on propofol which is running at 15 mcg/kg/min. Noted the propofol rate was gradually reduced as of yesterday and the fentanyl has been discontinued. Overnight, the patient continued to have bradycardic events and the heart rate was dropping as low as in the 40s and the rhythm remains atrial fibrillation. The patient was taken off the beta-blockers. The patient this morning is on assist-control mode of mechanical ventilation at rate of 20, tidal volume of 500, FiO2 of 60% with a PEEP of 5. Blood gas showed a pH of 7.51 with a pCO2 of 43 and pO2 of 64. Chest x-ray showing bilateral airspace disease, worse on the right essentially involving the lung bases. The patient is currently on no pressors. The patient remains on vital high-protein at rate of 45 cc an hour. No further seizure activity has been noted. The patient remains on IV Keppra. EEG showed encephalopathy without any seizure activity. Neurology on the case. The patient remains on IV Zosyn. The patient continues to have significant amount of edema in all 4 extremities and the patient remains on IV Lasix 40 mg every 12 hours. Fluid balance is +180 cc over the past 24 hours. Repeat cultures were sent and the results are still pending. The patient remains on anticoagulation with Eliquis regarding chronic atrial fibrillation. Cardizem drip is off. Metoprolol is currently on hold. On 08/10/2024, the patient is being seen for a follow-up. This morning, the patient is on propofol running at 20 mcg/kg/min. Remains deeply sedated. He is morbidly obese and he remains on the mechanical ventilator due to hypoxic/hypercapnic respiratory failure. This morning, he is on assist-control mode with rate of 20, tidal volume of 500, FiO2 is at 80% with a PEEP of 14. pH is 7.47 with a pCO2 of 44 and pO2 of 67. Chest x-ray shows bilateral pleural effusions and an area of dense consolidation in left upper lobe. There are signs of fluid overload as the patient continues to have extensive edema in all 4 extremities. He is on IV Lasix. Fluid balance is -1.5 L over the past 24 hours. The patient remains on IV Zosyn as an empiric antibiotic coverage. No pressors. No seizure activity and the patient remains on IV Keppra. EEG showed no evidence of any ongoing seizure activity. Remains on vital high-protein at rate of 45 cc an hour and the patient is on Levemir insulin 15 units twice a day. Blood work showed a white cell count of 6.8 with a hemoglobin 9.3 and a platelet count of 310. Sodium level is at 137, BUN is 25 with a creatinine of 0.8 and a potassium level is at 3.8. Procalcitonin level is at 0.48. The patient is afebrile. Hemodynamically, he is in low rate atrial fibrillation. Remains on anticoagulation with Eliquis. On 08/11/2024, the patient is being seen for a follow-up. The patient remains on propofol running at 20 mcg/kg/min. Sedation holiday was done today and the patient was arousable and he was able to follow simple commands. Nevertheless, is not ready for weaning with extubation he was placed back on propofol. At the same time, the patient is on assist-control mode of mechanical ventilation at a rate of 20, tidal volume of 500, FiO2 of 100% with a PEEP of 16. Noted his oxygenation got worse overnight and the patient was placed on 100% FiO2. Current pulse ox is 97%. She has been gradually been his FiO2. The blood gases showed a pH of 7.49 with a pCO2 of 51 and pO2 of 76. The patient is currently o n Lasix 40 mg IV every 8 hours and Zaroxolyn 5 mg p.o. twice a day. The net fluid balance is -4.8 L over the past 24 hours. Continues to have evidence of bilateral pleural effusion and extensive pulmonary edema in addition to extensive swelling in the upper and lower extremities bilaterally. He is on Levemir insulin 15 units twice daily. He is on vital high-protein at rate of 45 cc an hour. No seizure activity has been noted. Remains on IV Zosyn. Afebrile. Hemodynamically stable. The white cell count is 6.8 with a hemoglobin 8.7 and a platelet count of 333. The sodium levels at 136, bicarb levels at 34, potassium is at 3.9, BUN is 27 with a creatinine of 0.7. No other significant events overnight. On 08/12/2024, patient remains intubated on mechanical ventilator. The patient is in a significant negative fluid balance and the patient is being diuresed with a combination of Lasix and Zaroxolyn. Fluid balance has been -4 L over the past 24 hours. The patient remains on Lasix 40 mg IV every 8 hours and Zaroxolyn 5 mg p.o. twice a day. The patient's follow-up chest x-ray from today shows improved aeration in the lungs. There is cardiomegaly. There is continued pulmonary edema and bilateral pleural effusions. Tube remains in good location. He is on assist-control mode of mechanical ventilation at rate of 20, tidal volume of 500, FiO2 of 70% with a PEEP of 16. Blood gas showed a pH of 7.54 with pCO2 48 and pO2 of 69. Remains on low rate atrial fibrillation and r ate is controlled. Remains on vital high-protein at rate of 48 cc an hour. The white cell count is at 8 with a hemoglobin 8.9 and platelet count of 418. Sodium is at 135, BUN 33 with a creatinine of 0.6. Bicarbonate level is at 35. Afebrile. No other significant events overnight. Was given a sedation holiday and the patient's mentation was appropriate. Based on that, the patient was placed back on propofol which is running at 15 mcg/kg/min. On 08/13/2024, the patient remains intubated on the mechanical ventilator. Unfortunately, oxygenation remains unchanged despite excellent diuresis that the patient has achieved over the past 48 hours. For now, the patient is still on mechanical ventilator. Sedated with propofol running at 50 mcg/kg/min. He is on assist-control mode with rate of 20, tidal volume of 500, FiO2 of 80% with a PEEP of 16. The blood gas showed a pH of 7.56 with a pCO2 of 46 and pO2 of 101. Fluid balance is -4.8 L over the past 24 hours. The patient is afebrile., Comfortable. Hemodynamically stable on no pressors. White cell count of 9.1 with a hemoglobin 9.8 and a platelet count of 461. BUN 34 with a creatinine of 0.7 and sodium level of 134. Follow-up chest x-ray was done today and it shows left-sided pleural effusion, improvement in the volume status. ET tube remains in good location. The patient remains on anticoagulation with Eliquis regarding a low rate controlled atrial fibrillation. The patient remains on Eliquis 5 mg p.o. twice a day. The patient remains on Levemir insulin 20 units twice daily and sliding scale insulin coverage. The patient remains on empiric antibiotic coverage with IV Zosyn. On 08/14/2024, the patient remains on the mechanical ventilator on propofol running at 50 mcg/kg/min. Remains on Lasix and Zaroxolyn. Fluid balance is - 5.9 L over the past 24 hours and over the past 72 hours, the patient has been at least 19 L negative fluid balance. The ventilator settings are essentially unchanged. The patient remains on assist-control mode on mechanical ventilation at a rate of 20, tidal volume of 500, FiO2 of 70% with a PEEP of 16. Morning blood gas showed a pH of 7.52 with a pCO2 of 44 and pO2 of 86. The patient is on Levemir insulin 25 units twice daily. The patient is on vital high-protein. The patient remains on Levemir insulin for blood sugar control and the patient is currently on 25 units twice a day with adequate blood sugar control. Labs from today show a white cell count of 8, hemoglobin of 9.2 and a platelet count of 474. Sodium levels at 133, K is at 3.3, bicarb is at 40, BUN 34 with a creatinine of 0.9. The patient remains on IV Zosyn. Patient was seen today on 08/15/2024, remains in the ICU, intubated and mechanically ventilated, on assist-control rate of 20 tidal volume 500 FiO2 50% PEEP of 12 his ABG is marginal with a pO2 of 72 pCO2 of 45 pH of 7.45, hence no plans to lower down the PEEP from 12 although it was 16 yesterday. Patient remains on propofol 25 mcg/kg/min he is also on vital HP at 55 cc/h cultures have been negative procalcitonin 0.18 patient is arousable, follows simple instructions, however he is not quite ready for weaning. In addition to his m ultiple medical problems, patient has COVID-19 pneumonia, chest x-ray continues to show evidence of bilateral bibasilar and midlung infiltrates, small left pleural effusion is also noted WBC count is 7.2 hemoglobin 9.5 ABG as noted earlier, Basic metabolic profile is normal bicarb is 36 BUN 38 creatinine 0.85 patient was seen today on 08/16/2024, patient remains in the ICU, bated and mechanically ventilated, he is on assist-control rate of 20 tidal volume 500 FiO2 70% PEEP was 12 and increased to 18 as his ABG showed a pO2 of 74 pCO2 52 pH of 7.43 and that was on 70% and PEEP of 12 patient had endotracheal tube changed today done at bedside, and post intubation his O2 saturation remained in the 80s/85%, follow-up ABG showed a pO2 of 54 pCO2 of 52 pH of 7.42 hence the PEEP was increased to 18 and his FiO2 was increased to 100%. Patient had a chest x-ray that showed some interstitial changes and findings of interstitial edema or interstitial infiltrates, Lasix was given at 40 mg IV push. Patient remains on propofol at 45 vital at 50 mL/h, patient had a PICC line placed on 08/15, and today I changed his endotracheal tube because of malfunctioning of his old endotracheal tube and kept popping off and getting disconnected. His Decadron was changed to Solu-Medrol 60 mg IV push every 6 hours, and looking at the overall picture, patient is not showing significant improvement in the last 10 days and I am recommending surgical evaluation for possible tracheostomy, and PEG tube placement, and eventually may require placement in [facility] care [facility]. WBC count today is 8.7 hemoglobin 9.9 ABG as noted earlier electrolytes showed low potassium of 3.1, BUN of 42 creatinine 0.77 Patient was seen today on 08/17/2024, remains in the ICU, intubated and mechanically ventilated, patient is on assist-control rate of 20 tidal volume 500 FiO2 70% and I cut it down to 50% is PEEP remains 18 ABG today on 70% showed a pO2 of 113 pCO2 43 pH of 7.50. Will try to cut down the FiO2 to 50% and keep PEEP for now at 18 however the patient continues to maintain adequate O2 saturation may cut down the PEEP down to 16. Chest x-ray shows slight improvement compared to yesterday however patient is on a higher PEEP which may be misleading. Patient remains on propofol at 15 mg/kg/min vital HP at 50 cc/h. Patient is on Lasix 40 mg IV push twice daily remains on Eliquis. Off antibiotics, Remains on GI and DVT prophylaxis and mostly diuretics. Procalcitonin level came down to 0.18 hence will not restart antibiotics at this point. Sputum cultures are pending Seen today on 08/18/2024, patient remains in the ICU, intubated and mechanically ventilated, underwent uneventful tracheostomy yesterday, however a PEG tube could not be placed mostly because of his body habitus, surgery will consider open method for placement of the gastrostomy or jejunostomy tube down the line if felt to be necessary next week. In the meantime the patient is intubated mechanically ventilated he is on assist-control rate of 20 tidal volume 500 FiO2 50% PEEP of 16 I cut it down to 14, ABG showed a pO2 of 77 pCO2 41 pH of 7.52 EEG showed severe metabolic encephalopathy patient remains on propofol at 15 m cg/kg/min which I have discontinued today to fully assess mental status off sedation completely remains on enteral feeding patient is receiving tube feeding via nasogastric tube, patient is status post tracheostomy on 08/17/2024 remains on Eliquis remains on Lasix chest x-ray showing slight improvement but again patient is on relatively high PEEP. WBC count is 11.1 hemoglobin 10.3 platelets 512, basic metabolic profile is normal except for low potassium of 3.2 BUN is 53 creatinine 0.8. Patient was seen today on 08/19/2024, patient remains in the ICU, intubated and mechanically ventilated, he is on assist-control rate of 20 tidal volume 500 FiO2 50% PEEP 14 on the current down to 12 ABG showed a pO2 of 100 pCO2 44 pH of 7.50 patient remains on IV fluid at KVO 0.9 normal saline he is receiving vital HP at 50 cc/h his sputum cultures came back negative patient remains off antibiotics chest x-ray continues show a left lower lobe opacity and atelectasis, doubt pneumonia considering his procalcitonin level was normal and sputum was negative patient was on Zosyn which I have discontinued few days ago. Has been off sedation since yesterday, patient is waking up today, seems to follow simple instructions like squeezing hands, wiggling toes and opening eyes as well as sticking out his tongue but seems to be generally weak. WBC count is 11 hemoglobin is 11.2, basic metabolic profile is normal BUN is 56 creatinine 0.81 patient is still receiving enteral feeding via nasogastric tube, could not place PEG tube, however we will decide on the open approach for a PEG tube or jejunostomy tube next Thursday in the meantime I will continue to try possibly trials of weaning, and if I could get the patient to a trach collar, we could possibly deflate the cuff and address swallow evaluation. Seen today on 08/20/2024, patient remains in the ICU, intubated mechanically ventilated. Patient is on assist-control rate of 20 tidal volume 500 FiO2 50% and PEEP 12 I cut it down to 10 based on his ABG with pO2 of 100 pCO2 44 pH of 7.51 patient is awake, follows very simple instructions mostly squeezing hands, but does not wiggle toes today, patient is on vital AF at 55 mL/h, this is given via nasogastric tube, IV fluids at KVO, and he is on Eliquis. Remains on diuretics, he is off antibiotics. Chest x-ray is about the same, left lower lobe atelectasis noted, unchanged, procalcitonin level was normal hence patient has been off antibiotics. WBC count is 11.1 hemoglobin 10.8 basic metabolic profile is normal low potassium of 3.3 being addressed accordingly bicarb is 38 BUN is 58 creatinine 0.66, remains on diuretics. Patient was seen today on 08/21/2024, remains in the ICU, intubated and mechanically ventilated. Patient is on assist-control rate of 24 tidal volume 500 FiO2 50% and PEEP of 8 ABG showed a pO2 of 80, pCO2 46 pH of 7.53. Patient is developing low-grade fever overnight, he is also developing worsening leukocytosis, he has now purulent sputum, hence am recommending that we go back on Zosyn, sputum cultures and trach secretions cultures are pending. In the meantime we will place back on Zosyn. Patient is now up in the chair, tracheostomy site seems to be wide, patient may need reevaluation by surgery, hand surgery was reconsulted to evaluate the tracheostomy site. Attempts were made to have a PEG tube placed endoscopically, however this could not be perfor med, and surgery may have to consider open gastrostomy tube placement. Today I am asking the surgical staff to address his surgical wounds/tracheostomy site, as it seems to be gaping. Patient is arousable, follows very simple instructions like squeezing hands closing eyes, wiggling toes. Patient is remains on enteral feeding vital AF 55/55 via nasogastric tube. Patient is off propofol, yesterday I recommended Lovenox 80 mg SQ twice daily, he used to be on Eliquis for atrial fibrillation however considering that the patient may require surgery/open gastrostomy tube placement, I am recommending Lovenox for now 80 mg SQ twice daily. Continues on Lasix 40 mg twice daily and today and Zosyn was added. WBC count is up-to-day to 20.3 hemoglobin 11.5, basic metabolic profile is normal bicarb is 37 BUN is 60 creatinine 0.56 chest x-ray showing left lower lobe atelectasis possible left lower lobe airspace disease. Possible pneumonia. Objective - Vital Signs Vital signs: Vital Signs Temp 99.3 F 08/21/24 08:00 Pulse 77 08/21/24 11:00 Resp 20 08/21/24 11:00 BP 137/92 08/21/24 11:00 Pulse Ox 95 08/21/24 11:00 FiO2 50 08/21/24 08:13 Intake & Output 08/20/24 08/21/24 08/21/24 18:59 06:59 18:59 Intake Total 906 906 470 Output Total 1665 1775 1100 Balance -119 -866 -630 Weight 187.1 kg Intake: IV 156 156 165 KVO 120 120 50 Piperacillin-Tazobactam 3 100 .375 gm In Sodium Chloride 0.9% 100 ml @ 25 mls/hr IVPB Q8HR [facility] Rx# :[id number] Pressure Bag 36 36 15 Tube Feeding 660 660 275 Other 90 90 30 Output: Urine 1665 1775 1100 Other: Voiding Method Indwelling Catheter Indwelling Catheter Indwelling Catheter ABP, PAP, CO, CI - Last Documented Arterial Blood Pressure 112/74 - Exam GENERAL: 63-year-old white male awake seems to follow simple instructions HEENT: Pupils are round and equally reacting to light. EOMI. No scleral icterus. No conjunctival pallor. Normocephalic, atraumatic. No pharyngeal erythema. No thyromegaly. Tracheostomy site seems to have widened and gaping surgical site, will have surgery address. CARDIOVASCULAR: Normal S1-S2, no S3 gallop. PULMONARY: Good breath sound bilaterally no crackles rhonchi or wheezes Abdomen, obese soft nontender no megaly, no rebound, no guarding. MUSCULOSKELETAL: No joint swelling or deformity. EXTREMITIES: No cyanosis, clubbing, continues with 1+ bipedal edema NEUROLOGICAL: Arousable, follows simple instructions however patient is extremely weak. Psychiatric: Unable to fully assess SKIN: Patient has a stage II skin ulcer at the distal lateral aspect of the right lower extremity/chronic - Labs CBC & Chem 7: 08/21/24 04:38 08/21/24 04:38 Labs: Abnormal Lab Results - Last 24 Hours (Table) 08/20/24 08/20/24 08/20/24 Range/Units 11:27 17:53 23:30 WBC (3.8-10.6) k/uL Hgb (13.0-17.5) gm/dL MCV (80.0-100.0) fL MCH (25.0-35.0) pg MCHC (31.0-37.0) g/dL RDW (11.5-15.5) % Plt Count (150-450) k/uL Neutrophils # (1.3-7.7) k/uL Monocytes # (0-1.0) k/uL ABG pH (7.35-7.45) ABG pCO2 (35-45) mmHg ABG pO2 (83-108) mmHg ABG HCO3 (21-25) mmol/L ABG Total CO2 (19-24) mmol/L Hemoglobin (13.0-17.5) gm/dL Potassium 3.4 L (3.5-5.1) mmol/L Chloride (98-107) mmol/L Carbon Dioxide (22-30) mmol/L BUN (9-20) mg/dL Creatinine (0.66-1.25) mg/dL Glucose (74-99) mg/dL POC Glucose (mg/dL) 218 H 207 H (70-110) mg/dL 08/20/24 08/21/24 08/21/24 Range/Units 23:31 04:38 04:38 WBC 20.3 H (3.8-10.6) k/uL Hgb 11.5 L (13.0-17.5) gm/dL MCV 76.3 L (80.0-100.0) fL MCH 22.0 L (25.0-35.0) pg MCHC 28.9 L (31.0-37.0) g/dL RDW 16.2 H (11.5-15.5) % Plt Count 453 H (150-450) k/uL Neutrophils # 17.1 H (1.3-7.7) k/uL Monocytes # 1.7 H (0-1.0) k/uL ABG pH (7.35-7.45) ABG pCO2 (35-45) mmHg ABG pO2 (83-108) mmHg ABG HCO3 (21-25) mmol/L ABG Total CO2 (19-24) mmol/L Hemoglobin (13.0-17.5) gm/dL Potassium (3.5-5.1) mmol/L Chloride 97 L (98-107) mmol/L Carbon Dioxide 37 H (22-30) mmol/L BUN 60 H (9-20) mg/dL Creatinine 0.56 L (0.66-1.25) mg/dL Glucose 159 H (74-99) mg/dL POC Glucose (mg/dL) 188 H (70-110) mg/dL 08/21/24 08/21/24 Range/Units 05:36 06:00 WBC (3.8-10.6) k/uL Hgb (13.0-17.5) gm/dL MCV (80.0-100.0) fL MCH (25.0-35.0) pg MCHC (31.0-37.0) g/dL RDW (11.5-15.5) % Plt Count (150-450) k/uL Neutrophils # (1.3-7.7) k/uL Monocytes # (0-1.0) k/uL ABG pH 7.53 H (7.35-7.45) ABG pCO2 46 H (35-45) mmHg ABG pO2 80 L (83-108) mmHg ABG HCO3 39 H (21-25) mmol/L ABG Total CO2 40 H (19-24) mmol/L Hemoglobin 11.3 L (13.0-17.5) gm/dL Potassium (3.5-5.1) mmol/L Chloride (98-107) mmol/L Carbon Dioxide (22-30) mmol/L BUN (9-20) mg/dL Creatinine (0.66-1.25) mg/dL Glucose (74-99) mg/dL POC Glucose (mg/dL) 147 H (70-110) mg/dL Assessment and Plan Assessment: Impression: Acute hypoxic respiratory failure requiring intubation mechanical ventilation, multifactorial Acute COVID-19 pneumonia Acute fluid overload and bilateral pleural effusions most likely secondary to diastolic congestive heart failure Chronic atrial fibrillation Morbid obesity New onset seizure activity, on Keppra History of CVA Benign essential hypertension Obesity hypoventilation syndrome with BMI of 63.9 Obstructive sleep apnea syndrome Congestive heart failure with preserved LV function Type 2 diabetes Iron deficiency anemia History of polysubstance abuse History of right foot diabetic infection with previous incision and drainage in July 04, 2023 Status post endotracheal tube changed on 08/16 Status post tracheostomy on 08/17/2024 Acute metabolic encephalopathy Recommendation: Continue ventilatory support, I have been able to taper down his PEEP down to 8 FiO2 is at 50%, considering patient is having issues today with his surgical site/tracheostomy site, and considering the patient is developing leukocytosis and low-grade fever will place the patient back on antibiotics, and will hold on weaning/pressor support/CPAP. No major changes noted on the chest x-ray, left lower lobe may have some airspace disease but overall not significantly changed since admission. Continue diuretics including Lasix and Zaroxolyn Continue to hold sedation as much as possible hoping his encephalopathy may improve, patient is being followed by neurology on the case. Continue Keppra Continue Eliquis Continue nutritional support/enteral feeding May or may not require PEG tube placement, Eliquis remains on hold, patient is receiving Lovenox instead Continue GI and DVT prophylaxis Patient remains critically ill Critical care time is over 30 Time with Patient: Greater than 30
[2024-08-21 11:55] LABS: Glucose,Whole Blood 127 mg/dL (70-110)
--- NOTE | 2024-08-21 14:10 | P.PN ---
Subjective Progress Note Date: 08/21/24 CHIEF COMPLAINT: Status post tracheostomy HISTORY OF PRESENT ILLNESS: The patient is a 63-year-old male with morbid obesity in the intensive care unit status post tracheostomy due to loss of consciousness. Patient is is sitting up in chair. I was notified due to RT's finding of missing suture along the left aspect of his tracheostomy site. Patient has an extremely large habitus. No recent fevers or chills noted. Patient is in intensive care unit for vent management. ROS: No reports of nausea and vomiting. No fevers or chills. PHYSICAL EXAM: VITAL SIGNS: Reviewed CONSTITUTIONAL: Well developed and in no acute distress. EYES: Conjuctivae without sclera icterus. Extraocular movements grossly intact. HEAD, EARS, NOSE, THROAT: Moist buccal mucosa. Head is atraumatic, normocephalic. Hears conversational speech. No nasal drainage. Tracheostomy site assessed without gross cellulitis. Drainage of seropurulent from secretions noted. No bleeding. Very thick short neck noted there for larger size of tracheostomy incision needed to place tracheostomy. No dehiscence otherwise noted. RESPIRATORY: Non-labored respirations and equal bilateral excursions. Mechanically ventilated. CARDIOVASCULAR: Palpable 2+ radial pulses. ABDOMEN: Nontender MUSCULOSKELETAL: No gross deformity of the lower extremities noted. No clubbing. No cyanosis. SKIN: Good skin turgor. Well perfused. NEUROLOGIC: Cranial nerves II through XII grossly intact. No focal or lateralizing signs. PSYCH: Mentation sluggish. CLINICAL LABS: Reviewed. WBC elevated from 11,000 to over 20,000, increased leukocytosis ASSESSMENT: 1. Acute hypoxic respiratory failure 2. Morbid obesity to excess calories, BMI 56.0. 3. Leukocytosis, increased 4. Status post tracheostomy PLAN: 1. Per discussion with cloth finisher team, gastrostomy tube is being requested due to patient's poor mentation. 2. Patient overall failed weaning trials. 3. For tracheostomy, continue with frequent dressing changes and restart of antibiotics in the presence of elevated leukocytosis Objective - Vital Signs Vital signs: Vital Signs Temp 99.3 F 08/21/24 12:00 Pulse 94 08/21/24 14:00 Resp 20 08/21/24 14:00 BP 137/92 08/21/24 11:00 Pulse Ox 95 08/21/24 14:00 FiO2 50 01/19/25 12:00 Intake & Output 08/20/24 08/21/24 08/21/24 18:59 06:59 18:59 Intake Total 906 906 626 Output Total 1667 9315 1275 Balance -759 -869 -649 Weight 187.1 kg Intake: IV 156 156 181 KVO 120 120 60 Piperacillin-Tazobactam 3 100 .375 gm In Sodium Chloride 0.9% 100 ml @ 25 mls/hr IVPB Q8HR [facility] Rx# :[id number] Pressure Bag 36 36 21 Tube Feeding 660 660 385 Other 90 90 60 Output: Urine 2367 0873 1278 Other: Voiding Method Indwelling Catheter Indwelling Catheter Indwelling Catheter ABP, PAP, CO, CI - Last Documented Arterial Blood Pressure 133/77 - Labs CBC & Chem 7: 08/21/24 04:38 08/21/24 12:10 Labs: Abnormal Lab Results - Last 24 Hours (Table) 08/20/24 08/20/24 08/20/24 Range/Units 17:53 23:30 23:31 WBC (3.8-10.6) k/uL Hgb (13.0-17.5) gm/dL MCV (80.0-100.0) fL MCH (25.0-35.0) pg MCHC (31.0-37.0) g/dL RDW (11.5-15.5) % Plt Count (150-450) k/uL Neutrophils # (1.3-7.7) k/uL Monocytes # (0-1.0) k/uL ABG pH (7.35-7.45) ABG pCO2 (35-45) mmHg ABG pO2 (83-108) mmHg ABG HCO3 (21-25) mmol/L ABG Total CO2 (19-24) mmol/L Hemoglobin (13.0-17.5) gm/dL Potassium 3.4 L (3.5-5.1) mmol/L Chloride (98-107) mmol/L Carbon Dioxide (22-30) mmol/L BUN (9-20) mg/dL Creatinine (0.66-1.25) mg/dL Glucose (74-99) mg/dL POC Glucose (mg/dL) 207 H 188 H (70-110) mg/dL 08/21/24 08/21/24 08/21/24 Range/Units 04:38 04:38 05:36 WBC 20.3 H (3.8-10.6) k/uL Hgb 11.5 L (13.0-17.5) gm/dL MCV 76.3 L (80.0-100.0) fL MCH 22.0 L (25.0-35.0) pg MCHC 28.9 L (31.0-37.0) g/dL RDW 16.2 H (11.5-15.5) % Plt Count 453 H (150-450) k/uL Neutrophils # 17.1 H (1.3-7.7) k/uL Monocytes # 1.7 H (0-1.0) k/uL ABG pH (7.35-7.45) ABG pCO2 (35-45) mmHg ABG pO2 (83-108) mmHg ABG HCO3 (21-25) mmol/L ABG Total CO2 (19-24) mmol/L Hemoglobin (13.0-17.5) gm/dL Potassium (3.5-5.1) mmol/L Chloride 97 L (98-107) mmol/L Carbon Dioxide 37 H (22-30) mmol/L BUN 60 H (9-20) mg/dL Creatinine 0.56 L (0.66-1.25) mg/dL Glucose 159 H (74-99) mg/dL POC Glucose (mg/dL) 147 H (70-110) mg/dL 08/21/24 08/21/24 08/21/24 Range/Units 06:00 11:53 12:10 WBC (3.8-10.6) k/uL Hgb (13.0-17.5) gm/dL MCV (80.0-100.0) fL MCH (25.0-35.0) pg MCHC (31.0-37.0) g/dL RDW (11.5-15.5) % Plt Count (150-450) k/uL Neutrophils # (1.3-7.7) k/uL Monocytes # (0-1.0) k/uL ABG pH 7.53 H (7.35-7.45) ABG pCO2 46 H (35-45) mmHg ABG pO2 80 L (83-108) mmHg ABG HCO3 39 H (21-25) mmol/L ABG Total CO2 40 H (19-24) mmol/L Hemoglobin 11.3 L (13.0-17.5) gm/dL Potassium 3.4 L (3.5-5.1) mmol/L Chloride (98-107) mmol/L Carbon Dioxide (22-30) mmol/L BUN (9-20) mg/dL Creatinine (0.66-1.25) mg/dL Glucose (74-99) mg/dL POC Glucose (mg/dL) 127 H (70-110) mg/dL
--- NOTE | 2024-08-21 14:44 | P.PN ---
Subjective Progress Note Date: 08/21/24 Principal diagnosis: Reason for follow-up is pneumonia Patient is a 63-year-old male with a past medical history significant for diabetes mellitus hypertension hyperlipidemia atrial fibrillation sleep apnea patient has been brought to the hospital in respiratory distress, patient noted to be at has been reviewed the ICU tested positive for COVID subsequently did have persistent fever and white count concerning for possible aspiration pneumonia prompting this consultation. On today's evaluation that is Patient is status post tracheostomy completed on 08/17/2024, attempted PEG tube placement which could not be placed because of morbid obesity and very thick abdominal wall. On today's evaluation that is 08/21/2024, Patient did have a low-grade fever of 99.3 F axillary at noon patient is intubated through the trach he is hemodynamically stable noticed to have more purulent drainage from his trach site which has been cultured no diarrhea reported. Patient white count is up to 20.3, creatinine 0.56 Objective - Vital Signs Vital signs: Vital Signs Temp 99.3 F 08/21/24 12:00 Pulse 124 H 08/21/24 12:00 Resp 22 08/21/24 12:00 BP 137/92 08/21/24 11:00 Pulse Ox 94 L 08/21/24 12:00 FiO2 50 08/21/24 12:00 Intake & Output 08/20/24 08/21/24 08/21/24 18:59 06:59 18:59 Intake Total 906 906 558 Output Total 1665 1775 1200 Balance -759 -869 -642 Weight 187.1 kg Intake: IV 156 156 168 KVO 120 120 50 Piperacillin-Tazobactam 3 100 .375 gm In Sodium Chloride 0.9% 100 ml @ 25 mls/hr IVPB Q8HR [facility] Rx# :[id number] Pressure Bag 36 36 18 Tube Feeding 660 660 330 Other 90 90 60 Output: Urine 1665 1775 1200 Other: Voiding Method Indwelling Catheter Indwelling Catheter Indwelling Catheter ABP, PAP, CO, CI - Last Documented Arterial Blood Pressure 149/84 - Exam GENERAL DESCRIPTION: Middle-age man intubated through the trach on the vent RESPIRATORY SYSTEM: Unlabored breathing , decreased breath sounds at bases HEART: S1 S2 regular rate and rhythm , ABDOMEN: Soft , mild distention EXTREMITIES: Right groin wound currently dressed - Labs CBC & Chem 7: 08/21/24 04:38 08/21/24 12:10 Labs: Abnormal Lab Results - Last 24 Hours (Table) 08/20/24 08/20/24 08/20/24 Range/Units 17:53 23:30 23:31 WBC (3.8-10.6) k/uL Hgb (13.0-17.5) gm/dL MCV (80.0-100.0) fL MCH (25.0-35.0) pg MCHC (31.0-37.0) g/dL RDW (11.5-15.5) % Plt Count (150-450) k/uL Neutrophils # (1.3-7.7) k/uL Monocytes # (0-1.0) k/uL ABG pH (7.35-7.45) ABG pCO2 (35-45) mmHg ABG pO2 (83-108) mmHg ABG HCO3 (21-25) mmol/L ABG Total CO2 (19-24) mmol/L Hemoglobin (13.0-17.5) gm/dL Potassium 3.4 L (3.5-5.1) mmol/L Chloride (98-107) mmol/L Carbon Dioxide (22-30) mmol/L BUN (9-20) mg/dL Creatinine (0.66-1.25) mg/dL Glucose (74-99) mg/dL POC Glucose (mg/dL) 207 H 188 H (70-110) mg/dL 08/21/24 08/21/24 08/21/24 Range/Units 04:38 04:38 05:36 WBC 20.3 H (3.8-10.6) k/uL Hgb 11.5 L (13.0-17.5) gm/dL MCV 76.3 L (80.0-100.0) fL MCH 22.0 L (25.0-35.0) pg MCHC 28.9 L (31.0-37.0) g/dL RDW 16.2 H (11.5-15.5) % Plt Count 453 H (150-450) k/uL Neutrophils # 17.1 H (1.3-7.7) k/uL Monocytes # 1.7 H (0-1.0) k/uL ABG pH (7.35-7.45) ABG pCO2 (35-45) mmHg ABG pO2 (83-108) mmHg ABG HCO3 (21-25) mmol/L ABG Total CO2 (19-24) mmol/L Hemoglobin (13.0-17.5) gm/dL Potassium (3.5-5.1) mmol/L Chloride 97 L (98-107) mmol/L Carbon Dioxide 37 H (22-30) mmol/L BUN 60 H (9-20) mg/dL Creatinine 0.56 L (0.66-1.25) mg/dL Glucose 159 H (74-99) mg/dL POC Glucose (mg/dL) 147 H (70-110) mg/dL 08/21/24 08/21/24 08/21/24 Range/Units 06:00 11:53 12:10 WBC (3.8-10.6) k/uL Hgb (13.0-17.5) gm/dL MCV (80.0-100.0) fL MCH (25.0-35.0) pg MCHC (31.0-37.0) g/dL RDW (11.5-15.5) % Plt Count (150-450) k/uL Neutrophils # (1.3-7.7) k/uL Monocytes # (0-1.0) k/uL ABG pH 7.53 H (7.35-7.45) ABG pCO2 46 H (35-45) mmHg ABG pO2 80 L (83-108) mmHg ABG HCO3 39 H (21-25) mmol/L ABG Total CO2 40 H (19-24) mmol/L Hemoglobin 11.3 L (13.0-17.5) gm/dL Potassium 3.4 L (3.5-5.1) mmol/L Chloride (98-107) mmol/L Carbon Dioxide (22-30) mmol/L BUN (9-20) mg/dL Creatinine (0.66-1.25) mg/dL Glucose (74-99) mg/dL POC Glucose (mg/dL) 127 H (70-110) mg/dL Assessment and Plan (1) Pneumonia Current Visit: Yes Status: Acute Code(s): J18.9 - PNEUMONIA, UNSPECIFIED ORGANISM SNOMED Code(s): 823884952 (2) COVID-19 Current Visit: Yes Status: Acute Code(s): U07.1 - COVID-19 SNOMED Code(s): 189942461 Plan: 1 patient right femoral central line has been discontinued catheter tip as well as local culture will continue current wound care with the [facility] and the patient will monitor closely off antibiotic therapy at this point 2patient with a low-grade fever worsening of the white count and also noticed to have a purulent drainage from his trach site which has been cultured Zosyn has been added will obtain a blood culture as well and results will be followed Dictation was produced using [employer] dictation software. please excuse any grammatical, word or spelling errors. Time with Patient: Less than 30
[2024-08-21] MEDS: DEXTROSE 5% IN WATER 100 ML with AMIODARONE 150 MG IV ONE (15:56)
[2024-08-21] MEDS: AMIODARONE 360 MG in DEXTROSE 5% IN WATER 200 ML IV ONE (16:07)
[2024-08-21] MEDS: SILVER NITRATE APPLICATOR 1 EACH STICK..EA. TOPICAL ONE (18:27)
--- NOTE | 2024-08-21 18:41 | P.PCN ---
Date of Procedure: 08/21/24 Description of Procedure: PREOPERATIVE DIAGNOSIS: Acute bleeding tracheostomy site Acute blood loss anemia Morbid obesity to excess calories, BMI 55.9 POSTOPERATIVE DIAGNOSIS: Acute venous bleeding tracheostomy site Acute blood loss anemia Morbid obesity to excess calories, BMI 55.9 PROCEDURE: Emergent control of bleeding at bedside using silver nitrate sticks, Surgicel 4 x 8 inches sheet and pressure dressing SURGEON: Vivian Monteiro MD. ANESTHESIA: None INDICATIONS: The patient is a 63-year-old male with recent tracheostomy placement 08/17/2024. I was urgently notified by the ICU nurse regarding acute on send of bright red bleeding at the tracheostomy site uncontrolled despite pressure and multiple changes of 4 boxes of 4 x 4 gauze. Emergent life-saving measures with assessment and treatment was performed at bedside. DESCRIPTION OF PROCEDURE: At bedside, assistance including 2 ICU nurses and to respiratory therapist with bedside trying to control for bleeding at his tracheostomy site. Due to the patient's large body habitus, moderate bleeding was identified at the tracheostomy size with active blood clots. The trach collar was discontinued to assess underneath the tracheostomy tubing. The tracheostomy tubing was held intact by respiratory therapist. Using hydrogen peroxide and 4 x 4 fluffs, the skin of the neck chest and around the tracheostomy site was cleansed to assess for bleeding. Bleeding along the skin edges were identified with soft tissue at least 5 mm to 8 mm exposed along the left side of the tracheostomy site. Using silver nitrate sticks x 4, circumferentially the depth and surrounding tissue of the tracheostomy site was cauterized until no further bleeding was identified. Surgicel 4 x 8 inches sheet was cut in half to create 2 sheets. The sheath was divided in the middle without complete division to allow for a class closure around the tracheostomy site. Surgicel was used as packing around the surrounding tissue has no further bleeding was identified. 4 x 4 fluffs was placed circular around and underneath the tracheostomy site intergrade of pressor dressing. New trach collar was placed snug to provide further pressure dressing. At bedside, deep suction along the tracheostomy was performed without any further bleeding found despite pressure. Patient's cuff pressure was checked at approximately 30 to 35 mL mercury pressure. No further bleeding was identified after 15 to 30 minutes and all dressings were clean dry and intact up on completion. The patient tolerated the procedure well. FINDINGS: Soft tissue bleeding around the tracheostomy site requiring chemical cauterization circumferentially and along the depth of the exposed tissue. All bleeding resolved after chemical cautery, packing with Surgicel hemostatic agent and 4 x 4 fluffs. RECOMMENDATIONS: 1. Lovenox discontinued due to acute bleed 2. Continue antibiotics 3. Keep dressing on overnight for 12 to 24 hours prior to repositioning of patient.
[2024-08-21 18:42] LABS: Glucose,Whole Blood 127 mg/dL (70-110)
[2024-08-21] MEDS: AMIODARONE 450 MG in DEXTROSE 5% IN WATER 250 ML IV SCH (20:33)
[2024-08-21 22:53] LABS: Glucose,Whole Blood 170 mg/dL (70-110)
--- NOTE | 2024-08-22 02:37 | P.PN ---
Subjective Progress Note Date: 08/21/24 Patient in the intensive care unit currently intubated and sedated on the mechanical ventilator. Patient's chest x-ray today does reveal worsening CHF. He is significantly edematous. Remains sedated with IV fentanyl and propofol. He continues on IV Zosyn. Patient was started on enteral feedings today. blood sugars are elevated in the 200s. 08/07/2024 Patient was evaluated in follow-up in the medical floor he is currently intubated and sedated on the mechanical ventilator. Patient had gone into atrial fibrillation with rapid ventricular rate overnight requiring IV Cardizem. He has been since transition to oral metoprolol with heart rate better controlled today. He does have a noted history of atrial fibrillation was resumed on his oral Eliquis yesterday. Patient currently has LR running at 75 mL/h he does remain quite edematous mostly in his lower extremities. Patient was noted to have a small amount of yellow bile emesis there has been no residual with his tube feedings and they are continued at a slow rate today of 10 mL/h. He is febrile today temperature of 100.8. An abdominal x-ray was unable to be completed due to patient's body habitus and he is unable to be transported down for x-ray at this time. 08/08/2024 Patient is seen in follow-up in the ICU and overnight placed on mechanical ventilation as patient was noted to have what appeared to be seizure-like activity with no history of seizures and neurology was consulted. Patient was placed on mechanical ventilation currently with an FiO2 of 60% and PEEP is 10 with pulmonary residential tech following. Patient remains with low-grade temps and also started on Keppra and is maintained on antibiotics. Cardiology following as well maintained on oral anticoagulation and has been having heart rates in the 40s. Continued on low-dose metoprolol and will continue to monitor closely. Per nursing staff patient also requiring low-dose Levophed and has been started on 40 of IV Lasix daily due to significant swelling. Will follow-up on repeat labs and continue to monitor closely. 08/09/2024 Patient is seen in follow-up with multiple consultations following including pulmonary, neurology, cardiology, and infectious disease consulted. Patient underwent EEG which was abnormal with no epileptiform discharges noted. Patient is continued on Keppra for now. Heart rates in the low 40s although per nursing staff slightly improved this afternoon and is being monitored closely with cardiology following. Patient is continued on Lasix for diuresis with significant volume overload. Wean pressors as tolerated and follow-up on repeat labs. Patient's blood sugars have been more elevated and possible steroid effect will increase long-acting and also Accu-Cheks before meals and at bedtime as well as sliding scale. Adjust accordingly. 08/10/2024 Patient is seen in follow-up today continues on mechanical ventilation in the ICU with an FiO2 of 80% and PEEP is 14. Undergoing sedation holidays and per nursing staff patient will open his eyes and attempt to track although not moving. Patient continues to be extremely edematous and is diuresing maintained on IV Lasix. Heart rates slightly improved and will continue current regimen per cardiology. No plans on extubation at this time. Per nursing staff patient has not had a bowel movement and is continued on bowel regimen. Abdomen is soft and there is positive bowel sounds noted. Patient continued on tube feeds. Highly recommend aspiration precautions and head of the bed elevated 30 to 45 degrees at all times. 08/12/2024 Patient is seen in follow-up today remains in the ICU with multiple consultations following. PEEP remains high at 16 with an FiO2 of 70% and per nursing staff has been having some desaturations and is being increased to 80% FiO2. Patient is maintained on metolazone along with IV Lasix and potassium borderline daily being replaced will add daily supplementation. Patient is having adequate diuresis and kidney functions are stable. Patient undergoing sedation holidays daily with no plans of weaning and extubation at this time. Patient is afebrile and maintained on IV Decadron along with Zosyn. Continue bowel regimen patient does have positive bowel sounds and is tolerating tube feeds at this time. Recommend aspiration precautions with head of the bed elevated 45 degrees at all times. 08/13/2024 Patient evaluated in the intensive care unit with multiple consultations following. Patient remains on the mechanical ventilator with a PEEP of 16 and FiO2 of 70%. Patient is appropriately arousable during sedation holidays. No plans for extubation at this time. Patient continues on IV Zosyn continues on IV Lasix IV Diamox and continues on oral zaroxolyn. Lower extremities remain significantly edematous. Patient is continued on enteral feedings now at goal running at 55 mL/h. Blood glucose has been elevated in the 200s. Chest x-ray today reveals a left-sided pleural effusion. 08/14/2024 Patient eval today in follow-up in the intensive care unit patient remains on mechanical ventilator, FiO2 down to 50%. Chest x-ray today reveals stable left lower lobe infiltrate and effusion. Patient remains on IV decadron daily. IV lasix 40 mg Q12 hour. Increased urine output over the last 24 hours. Lower extre mity edema has mildly improved. Bowels are moving. Patient is tolerating enteral feeding. IV zosyn has been discontinued. WBC 8.3, hgb 9.2, sodium 133, BUN 34, creatinine 0.90, magnesium 1.9. Patient evaluated today in follow up in the ICU. Vent settings were decreased yesterday to 50% FiO2 with a PEEP of 12, patient became increasingly hypoxic. Vent settings increased back up to 70% fio2 and PEEP of 16. Remains on IV decadron daily. Continues on IV lasix 40 mg Q12 hour as well as oral zaroxolyn. Chest xray today shows left perihilar infiltrate and small left pleural effusion. Patient remains on enteral feedings with Vital HP running at goal of 50 mls/hr and tolerating. Blood glucose remains elevated in the 200-300s. Labs revealing white blood cell count 7.2, hgb 9.5, sodium 132, BUN 38, creatinine 0.85. Procal 0.18. TSH 1.780. 08/16/2023 Patient evaluated today in the ICU. Remains on mechanical ventilator with PEEP of 70% FiO2 of 16. Chest xray today reveals mild right upper lobe infiltrate. Additional mild infiltrate may be at the left base. General surgery consulted f or tracheostomy and PEG tube placement. White blood cell count 8.7, hgb 9.9, sodium 132, potassium 4.5, BUN 42, creatinine 0.77. 08/17/2023 Was evaluated today in the intensive care unit. Patient remains on mechanical ventilator with an FiO2 of 60% and PEEP of 18. X-ray today reveals a mild garret hilar increased lung markings stable from comparison. Patient catheter tip are currently negative. His white blood blood count is normal at 8.5, hemoglobin 9.7, sodium 134, BUN of 47 and creatinine of 0.75. Is currently on IV Solu- Medrol 60 mg every 6 hours. He is sedated with propofol. He is on IV Keppra. He is currently off antibiotic at this time. 08/18/2023 Patient is status post tracheostomy placement continues on the mechanical ventilator, FiO2 of 50% and PEEP of 16. Patient continues to have evidence of altered mentation with EEG showing severe metabolic encephalopathy. Cosmetic Sales Consultant planning to discontinue the propofol at this time to assess patient's mental status. He continues on IV Lasix with slight improvement on the chest x-ray today. The PEG tube was unable to be placed secondary to body habitus. Labs today reveal a white blood cell count 11.1, hemoglobin 10.3, sodium 134, potassium 3.2, BUN 53 creatinine of 0.80. 08/19/2024 Patient is seen in follow-up continues in the ICU status post tracheostomy placement currently off sedation and awake today opening eyes and eye tracking attempting to follow commands although is significantly weak. Patient continues on assist mode and FiO2 is 50% and PEEP was decreased to 12. Multiple consultations following including general surgery as they were unable to place a PEG tube and will continue with tube feeds via NG. Considering possible open gastrostomy tube given patient's body habitus. Patient is afebrile and being monitored with infectious disease following off antibiotic therapy. Patient also continues on IV diuresis and tolerating well. Patient being followed by pulmonary attempting to wean as tolerated and also maintained on steroids with mildly elevated blood sugars more so than normal in the 200s will slightly increase long-acting insulin and monitor closely. Follow-up with repeat labs. Case management also following in the event patient will require possible LTAC admission. 08/20/2024 Patient is evaluated today in follow up on the intensive care unit. Patient is status post tracheostomy placement. He remains off sedation. Eyes are opening to verbal stimulation and tracing and following simple commands he is significantly weak. He remains on the mechanical ventilator with FiO2 of 50% and PEEP of 10. He is being considered for trial of CPAP tomorrow. chest xray today reveals stable left lower lobe airspace disease stable support tubes and lines. Patient continues on IV lasix 40 mg every 12 hours. White blood cell count today 11.1, hgb 10.8, sodium 138, potassium 3.3, BUN 58, creatinine 0.66, magnesium 2.1. 08/21/2024 Patient seen in follow-up today continues to be in the ICU with multiple consultations following. Patient remains on tracheostomy and vent with an FiO2 of 50%. Patient is having some increase in white count up to 20 along with low- grade temps and is being reinitiated on antibiotics in the form of Zosyn with infectious disease following. Cardiology following as well and patient is being placed on amiodarone drip. General surgery following status post via tracheostomy and there is some bleeding noted on the tracheostomy site and suture being replaced. Continue head of the bed elevated 35 to 45 degrees at all times and strict aspiration precautions. General surgery following for possible G-tube as well. PEG tube was unsuccessful. Unable to complete review of systems as patient is currently intubated PHYSICAL EXAMINATION: GENERAL: The patient is intubated and awake but very lethargic. Fatigues easily although does respond to name and eye tracking and blinking eyes. He is morbidly obese, well-developed, elderly appearing, extremely edematous of upper and lower extremities and body habitus, ill-appearing. FiO2 is currently 50% with a PEEP of 12 HEENT: Pupils are round and equally reacting to light. EOMI. No scleral icterus. No conjunctival pallor. Normocephalic, atraumatic. No pharyngeal erythema. No thyromegaly. CARDIOVASCULAR: S1 and S2 muffled, irregular PULMONARY: Diminished breath sounds bilaterally otherwise chest is clear to auscultation, no wheezing , no crackles. ABDOMEN: Soft, obese, nontender, nondistended, normoactive bowel sounds. No palpable organomegaly. Kelly catheter in place MUSCULOSKELETAL: No joint swelling or deformity. EXTREMITIES: No cyanosis, clubbing, continues with significant lower extremity edema bilaterally pitting right lower leg superficial wound is improved with no significant redness and some mild flaking of the skin noted NEUROLOGICAL: Awake although fatigues easily, eye-opening and responding to name, tracking, attempting to follow simple commands extremely weak SKIN: No rashes. no petechiae. Assessment: Acute hypoxic respiratory failure requiring intubation on admission, currently on mechanical ventilation, FiO2 is 50% with PEEP of 12. Status post tracheostomy on 08/17/2024 COVID infection and possible pneumonia, concerns for aspiration pneumonia Leukocytosis with low-grade temps, repeat cultures obtained along with sputum pending Possible seizure like activity, new onset, EEG was abnormal although not showing any epileptiform discharges, continued on Keppra for now with neurology following Possible acute COPD exacerbation versus obesity hypoventilation syndrome Possible bacterial pneumonia, healthcare associated with right upper lobe and left lower lobe infiltrates, ruled out, white count is normal and patient is off antibiotics, cultures are negative Severe sepsis requiring pressor support Acute on chronic diastolic heart failure with preserved EF A-fib and RVR, present on admission with slow ventricular rate dropping into the 30s. Currently rate controlled Right leg wound with recent cultures showing enterococcus faecalis, ESBL and Providencia Rettgeri Diabetes Mellitus type 2, uncontrolled with hyperglycemia Steroid induced hyperglycemia Morbid obesity with a BMI of 64.2 Chronic anemia Lactic acidemia/acidosis, improved GI prophylaxis DVT prophylaxis Full Code Plan: Patient has completed a course of antibiotic therapy and remaineds off zosyn however patient is now having an increase in white count and low-grade temps being reinitiated on Zosyn per ID recommendations. Infectious diseases following and will continue with wound care Mechanical ventilator per residential tech. No plans for extubation at this time and undergoing sedation holidays. Patient is status post tracheostomy on 08/17/2024 Continue enteral feedings, tube feeds were resumed and tolerating thus far.. Continue with aspiration precautions and head of the bed elevated 45 degrees at all times and monitor closely for residuals Continue bowel regimen and also daily suppositories. PEG was unable to be placed by general surgery secondary to patient's body habitus. Will need to be open gastrostomy tube placement per surgery and awaiting consent Patient does not have history of seizures and was started on Keppra and neurology following underwent EEG which was abnormal although not showing any epileptiform discharges. No further seizure-like activity noted. Neurology following as needed Per pulmonary residential tech patient is continued on IV Lasix every 12 hours. And will continue to monitor kidney functions closely. Replace electrolytes per protocol. Daily supplementation of potassium ordered Patient having some increased bleeding at the tracheostomy site requiring a suture with general surgery and anticoagulation has been placed on hold due to increased bleeding Continue with Accu-Cheks [id number] sliding scale along with long-acting. Levemir will be slightly increased to 60 units SQ BID and also continue novolog scale which has been adjusted to high dose He is continued on IV Solu-Medrol Repeat blood work in the AM Overall prognosis is guarded and CODE STATUS needs to be addressed. Case management following in the event patient may require possible LTAC. Pulmonary residential tech planning on weaning as tolerated and was able to decrease the rate of PEEP to 10 and is continued at 50% FiO2. Mentation is improving and patient is maintained off propofol. Patient is significantly weak and has had prolonged hospitalization. Patient will require extensive physical rehab as well as tracheostomy care. Awaiting to discuss further regarding G-tube insertion and will continue with NG tube for now. Continue with aspiration precautions. CODE STATUS remains full code at this time The impression and plan of care has been dictated by Jocy Randle, Nurse Practitioner as directed. Dr. Jackie MD I have performed a history and physical examination and medical decision making of this patient, discussed the same with the dictator, and agree with the dictators assessment and plan as written, documented as a scribe. Based on total visit time, I have performed more than 50% of this visit. Objective - Vital Signs Vital signs: Vital Signs Temp 98.1 F 08/21/24 04:00 Pulse 96 08/21/24 04:00 Resp 20 08/21/24 04:00 BP 129/98 08/21/24 04:00 Pulse Ox 95 08/21/24 04:00 FiO2 50 08/21/24 04:31 Intake & Output 08/20/24 08/20/24 08/21/24 06:59 18:59 06:59 Intake Total 906 906 770 Output Total 1620 1665 1600 Balance -714 -759 -830 Weight 187.6 kg 187.1 kg Intake: IV 156 156 130 KVO 120 120 100 Pressure Bag 36 36 30 Tube Feeding 660 660 550 Other 90 90 90 Output: Urine 1620 1665 1600 Other: Voiding Method Indwelling Catheter Indwelling Catheter Indwelling Catheter ABP, PAP, CO, CI - Last Documented Arterial Blood Pressure 147/83 - Labs CBC & Chem 7: 08/21/24 04:38 08/21/24 16:53 Labs: Abnormal Lab Results - Last 24 Hours (Table) 08/20/24 08/20/24 08/20/24 Range/Units 05:44 05:44 11:27 WBC (3.8-10.6) k/uL Hgb (13.0-17.5) gm/dL MCV (80.0-100.0) fL MCH (25.0-35.0) pg MCHC (31.0-37.0) g/dL RDW (11.5-15.5) % Plt Count (150-450) k/uL Neutrophils # (1.3-7.7) k/uL Monocytes # (0-1.0) k/uL ABG pH 7.51 H (7.35-7.45) ABG HCO3 35 H (21-25) mmol/L ABG Total CO2 37 H (19-24) mmol/L ABG O2 Saturation 98.5 H (94-97) % Hemoglobin 10.7 L (13.0-17.5) gm/dL Potassium (3.5-5.1) mmol/L POC Glucose (mg/dL) 232 H 218 H (70-110) mg/dL 08/20/24 08/20/24 08/20/24 Range/Units 17:53 23:30 23:31 WBC (3.8-10.6) k/uL Hgb (13.0-17.5) gm/dL MCV (80.0-100.0) fL MCH (25.0-35.0) pg MCHC (31.0-37.0) g/dL RDW (11.5-15.5) % Plt Count (150-450) k/uL Neutrophils # (1.3-7.7) k/uL Monocytes # (0-1.0) k/uL ABG pH (7.35-7.45) ABG HCO3 (21-25) mmol/L ABG Total CO2 (19-24) mmol/L ABG O2 Saturation (94-97) % Hemoglobin (13.0-17.5) gm/dL Potassium 3.4 L (3.5-5.1) mmol/L POC Glucose (mg/dL) 207 H 188 H (70-110) mg/dL 08/21/24 Range/Units 04:38 WBC 20.3 H (3.8-10.6) k/uL Hgb 11.5 L (13.0-17.5) gm/dL MCV 76.3 L (80.0-100.0) fL MCH 22.0 L (25.0-35.0) pg MCHC 28.9 L (31.0-37.0) g/dL RDW 16.2 H (11.5-15.5) % Plt Count 453 H (150-450) k/uL Neutrophils # 17.1 H (1.3-7.7) k/uL Monocytes # 1.7 H (0-1.0) k/uL ABG pH (7.35-7.45) ABG HCO3 (21-25) mmol/L ABG Total CO2 (19-24) mmol/L ABG O2 Saturation (94-97) % Hemoglobin (13.0-17.5) gm/dL Potassium (3.5-5.1) mmol/L POC Glucose (mg/dL) (70-110) mg/dL
[2024-08-22 04:16] LABS: Anisocytosis Slight; HCT 34.9 % (39.0-53.0); HGB 10.4 gm/dL (13.0-17.5); Hypochromasia Marked; MCH 22.7 pg (25.0-35.0); MCHC 29.9 g/dL (31.0-37.0); MCV 76.1 fL (80.0-100.0); Mean Platelet Volume 6.7; Microcytosis Slight; Platelet Count 416 k/uL (150-450); RBC 4.58 m/uL (4.30-5.90); RDW 16.3 % (11.5-15.5); WBC 16.8 k/uL (3.8-10.6)
[2024-08-22 04:28] LABS: African American GFR (CKD) >90 (>60 ml/min/1.73 sqM); Anion Gap 7 mmol/L; Blood Urea Nitrogen 69 mg/dL (9-20); Calcium 9.5 mg/dL (8.4-10.2); Carbon Dioxide 40 mmol/L (22-30); Chloride 95 mmol/L (98-107); Glucose 201 mg/dL (74-99); Non-African American GFR(CKD) >90 (>60 ml/min/1.73 sqM); Potassium 3.7 mmol/L (3.5-5.1); Sodium 142 mmol/L (137-145)
[2024-08-22] MEDS: POTASSIUM BICARBONATE/CIT AC 20 MEQ TABLET.EFF NG-TUBE SCH (04:51)
[2024-08-22 04:57] LABS: Glucose,Whole Blood 201 mg/dL (70-110)
[2024-08-22 05:30] LABS: ABG Base Excess 13.5 mmol/L; ABG HCO3 38 mmol/L (21-25); ABG Oxygen Saturation 95.1 % (94-97); ABG PCO2 49 mmHg (35-45); ABG PO2 72 mmHg (83-108); ABG TCO2 40 mmol/L (19-24)
[2024-08-22 05:32] LABS: Allen Test Performed? no
--- NOTE | 2024-08-22 07:37 | XR ---
EXAMINATION TYPE: XR chest 1V portable DATE OF EXAM: 08/22/2024 CLINICAL HISTORY: Difficulty breathing progress study. TECHNIQUE: Single AP portable semiupright view of the chest is obtained. COMPARISON: Chest x-ray from one day earlier and old studies FINDINGS: Stable tracheostomy and orogastric tubes. Stable left-sided PICC line. Elevated right hemidiaphragm with bibasilar increased opacities. Heart size stable and upper limits o f normal. Old healed fractures of the posterior-lateral left fifth through seventh ribs are redemonst rated. IMPRESSION: Bibasilar opacities consistent with acute infiltrates and/or atelectasis remain present. [facility], , 08/22/2024 7:35 AM
[2024-08-22] MEDS ORDERED: ALBUTEROL NEBULIZED 2.5 MG/3 ML INHALATION PRN (11:14)
--- NOTE | 2024-08-22 11:23 | P.PN ---
Subjective Progress Note Date: 08/22/24 Acute hypoxic respiratory failure, multifactorial On 08/08/2024, the patient is being seen in follow-up in the intensive care unit. This is a morbidly obese 63-year-old male patient who is currently intubated on the mechanical ventilator. Initially presented to us on 08/05/2024 for respiratory distress and the patient became unresponsive. He is known to have morbid obesity, COPD, chronic A-fib, CVA, hypertension hyperlipidemia. He resides in a intermediate and the patient was found to be unresponsive and not breathing properly. His pulse ox was also very low and the patient was hypotensive and minimally responsive. He came into the emergency department where he was intubated and placed on the mechanical ventilator. Since admission, the patient was found to be COVID-19 positive. He had a follow-up chest x-ray today that shows significant rotation, ET tube is probably 1 cm above the damian and there is evidence of left lower lobe consolidation/effusion. Noted at the time of admission, he had also a right upper lobe consolidation in addition to left lower lobe consolidation. Sputum samples have been negative as collected on 08/05/2024 and blood cultures been also negative. No significant leukocytosis. The patient is currently on no antibiotics. The patient is on propofol which is running at 30 mcg/kg/min, and is also on fentanyl at 1 mcg/kg/h.. The patient is on assist-control mode of mechanical ventilation at rate of 20, tidal volume of 500, FiO2 of 60 % with a PEEP of 10. Blood gases from today shows a pH of 7.46 with a pCO2 of 51 and pO2 of 69 and this was an FiO2 of 60%. The patient is on lactated Ringer at rate of 75 cc an hour. The patient receiving vital high-protein at rate of 55 cc an hour. He remains in atrial fibrillation with rapid ventricular response. He is off Cardizem drip . He is also on metoprolol 12.5 mg twice a day and anticoagulation with Eliquis 5 mg p.o. twice a day. He is on Levemir insulin 15 units at bedtime. Earlier this morning, the patient noted to have episodic generalized tonic-clonic seizure-like activity. The patient was kept on propofol. He was given Ativan 2 mg IV push x 2 and started on Keppra. CAT scan of the brain is to follow. EEG is to follow. Neurology consultation is to follow. The patient is on lactated Ringer at rate of 75 cc an hour. Norepinephrine was also started this morning and is currently running at 0.03 mcg/kg/min. He is on EN , vital HP at 35 cc/hr On 08/09/2024, the patient is being seen for a follow-up. The patient remains intubated on the mechanical ventilator. This morning, the patient is on propofol which is running at 15 mcg/kg/min. Noted the propofol rate was gradually reduced as of yesterday and the fentanyl has been discontinued. Overnight, the patient continued to have bradycardic events and the heart rate was dropping as low as in the 40s and the rhythm remains atrial fibrillation. The patient was taken off the beta-blockers. The patient this morning is on assist-control mode of mechanical ventilation at rate of 20, tidal volume of 500, FiO2 of 60% with a PEEP of 5. Blood gas showed a pH of 7.51 with a pCO2 of 43 and pO2 of 64. Chest x-ray showing bilateral airspace disease, worse on the right essentially involving the lung bases. The patient is currently on no pressors. The patient remains on vital high-protein at rate of 45 cc an hour. No further seizure activity has been noted. The patient remains on IV Keppra. EEG showed encephalopathy without any seizure activity. Neurology on the case. The patient remains on IV Zosyn. The patient continues to have significant amount of edema in all 4 extremities and the patient remains on IV Lasix 40 mg every 12 hours. Fluid balance is +180 cc over the past 24 hours. Repeat cultures were sent and the results are still pending. The patient remains on anticoagulation with Eliquis regarding chronic atrial fibrillation. Cardizem drip is off. Metoprolol is currently on hold. On 08/10/2024, the patient is being seen for a follow-up. This morning, the patient is on propofol running at 20 mcg/kg/min. Remains deeply sedated. He is morbidly obese and he remains on the mechanical ventilator due to hypoxic/hypercapnic respiratory failure. This morning, he is on assist-control mode with rate of 20, tidal volume of 500, FiO2 is at 80% with a PEEP of 14. pH is 7.47 with a pCO2 of 44 and pO2 of 67. Chest x-ray shows bilateral pleural effusions and an area of dense consolidation in left upper lobe. There are signs of fluid overload as the patient continues to have extensive edema in all 4 extremities. He is on IV Lasix. Fluid balance is -1.5 L over the past 24 hours. The patient remains on IV Zosyn as an empiric antibiotic coverage. No pressors. No seizure activity and the patient remains on IV Keppra. EEG showed no evidence of any ongoing seizure activity. Remains on vital high-protein at rate of 45 cc an hour and the patient is on Levemir insulin 15 units twice a day. Blood work showed a white cell count of 6.8 with a hemoglobin 9.3 and a platelet count of 310. Sodium level is at 137, BUN is 25 with a creatinine of 0.8 and a potassium level is at 3.8. Procalcitonin level is at 0.48. The patient is afebrile. Hemodynamically, he is in low rate atrial fibrillation. Remains on anticoagulation with Eliquis. On 08/11/2024, the patient is being seen for a follow-up. The patient remains on propofol running at 20 mcg/kg/min. Sedation holiday was done today and the patient was arousable and he was able to follow simple commands. Nevertheless, is not ready for weaning with extubation he was placed back on propofol. At the same time, the patient is on assist-control mode of mechanical ventilation at a rate of 20, tidal volume of 500, FiO2 of 100% with a PEEP of 16. Noted his oxygenation got worse overnight and the patient was placed on 100% FiO2. Current pulse ox is 97%. She has been gradually been his FiO2. The blood gases showed a pH of 7.49 with a pCO2 of 51 and pO2 of 76. The patient is currently on Lasix 40 mg IV every 8 hours and Zaroxolyn 5 mg p.o. twice a day. The net fluid balance is -4.8 L over the past 24 hours. Continues to have evidence of bilateral pleural effusion and extensive pulmonary edema in addition to extensive swelling in the upper and lower extremities bilaterally. He is on Levemir insulin 15 units twice daily. He is on vital high-protein at rate of 45 cc an hour. No seizure activity has been noted. Remains on IV Zosyn. Afebrile. Hemodynamically stable. The white cell count is 6.8 with a hemoglobin 8.7 and a platelet count of 333. The sodium levels at 136, bicarb levels at 34, potassium is at 3.9, BUN is 27 with a creatinine of 0.7. No other significant events overnight. On 08/12/2024, patient remains intubated on mechanical ventilator. The patient is in a significant negative fluid balance and the patient is being diuresed with a combination of Lasix and Zaroxolyn. Fluid balance has been -4 L over the past 24 hours. The patient remains on Lasix 40 mg IV every 8 hours and Zaroxolyn 5 mg p.o. twice a day. The patient's follow-up chest x-ray from today shows improved aeration in the lungs. There is cardiomegaly. There is continued pulmonary edema and bilateral pleural effusions. Tube remains in good location. He is on assist-control mode of mechanical ventilation at rate of 20, tidal volume of 500, FiO2 of 70% with a PEEP of 16. Blood gas showed a pH of 7.54 with pCO2 48 and pO2 of 69. Remains on low rate atrial fibrillation and rate is controlled. Remains on vital high-protein at rate of 48 cc an hour. The white cell count is at 8 with a hemoglobin 8.9 and platelet count of 418. Sodium is at 135, BUN 33 with a creatinine of 0.6. Bicarbonate level is at 35. Afebrile. No other significant events overnight. Was given a sedation holiday and the patient's mentation was appropriate. Based on that, the patient was placed back on propofol which is running at 15 mcg/kg/min. On 08/13/2024, the patient remains intubated on the mechanical ventilator. Unfortunately, oxygenation remains unchanged despite excellent diuresis that the patient has achieved over the past 48 hours. For now, the patient is still on mechanical ventilator. Sedated with propofol running at 50 mcg/kg/min. He is on assist-control mode with rate of 20, tidal volume of 500, FiO2 of 80% with a PEEP of 16. The blood gas showed a pH of 7.56 with a pCO2 of 46 and pO2 of 101. Fluid balance is -4.8 L over the past 24 hours. The patient is afebrile., Comfortable. Hemodynamically stable on no pressors. White cell count of 9.1 with a hemoglobin 9.8 and a platelet count of 461. BUN 34 with a creatinine of 0.7 and sodium level of 134. Follow-up chest x-ray was done today and it shows left-sided pleural effusion, improvement in the volume status. ET tube remains in good location. The patient remains on anticoagulation with Eliquis regarding a low rate controlled atrial fibrillation. The patient remains on Eliquis 5 mg p.o. twice a day. The patient remains on Levemir insulin 20 units twice daily and sliding scale insulin coverage. The patient remains on empiric antibiotic coverage with IV Zosyn. On 08/14/2024, the patient remains on the mechanical ventilator on propofol runni ng at 50 mcg/kg/min. Remains on Lasix and Zaroxolyn. Fluid balance is -5.9 L over the past 24 hours and over the past 72 hours, the patient has been at least 19 L negative fluid balance. The ventilator settings are essentially unchanged. The patient remains on assist-control mode on mechanical ventilation at a rate of 20, tidal volume of 500, FiO2 of 70% with a PEEP of 16. Morning blood gas s howed a pH of 7.52 with a pCO2 of 44 and pO2 of 86. The patient is on Levemir insulin 25 units twice daily. The patient is on vital high-protein. The patient remains on Levemir insulin for blood sugar control and the patient is currently on 25 units twice a day with adequate blood sugar control. Labs from today show a white cell count of 8, hemoglobin of 9.2 and a platelet count of 474. Sodium levels at 133, K is at 3.3, bicarb is at 40, BUN 34 with a creatinine of 0.9. The patient remains on IV Zosyn. Patient was seen today on 08/15/2024, remains in the ICU, intubated and mechanically ventilated, on assist-control rate of 20 tidal volume 500 FiO2 50% PEEP of 12 his ABG is marginal with a pO2 of 72 pCO2 of 45 pH of 7.45, hence no plans to lower down the PEEP from 12 although it was 16 yesterday. Patient remains on propofol 25 mcg/kg/min he is also on vital HP at 55 cc/h cultures h ave been negative procalcitonin 0.18 patient is arousable, follows simple instructions, however he is not quite ready for weaning. In addition to his multiple medical problems, patient has COVID-19 pneumonia, chest x-ray continues to show evidence of bilateral bibasilar and midlung infiltrates, small left pleural effusion is also noted WBC count is 7.2 hemoglobin 9.5 ABG as noted earlier, Basic metabolic profile is normal bicarb is 36 BUN 38 creatinine 0.85 patient was seen today on 08/16/2024, patient remains in the ICU, bated and mechanically ventilated, he is on assist-control rate of 20 tidal volume 500 FiO2 70% PEEP was 12 and increased to 18 as his ABG showed a pO2 of 74 pCO2 52 pH of 7.43 and that was on 70% and PEEP of 12 patient had endotracheal tube changed today done at bedside, and post intubation his O2 saturation remained in the 80s/85%, follow-up ABG showed a pO2 of 54 pCO2 of 52 pH of 7.42 hence the PEEP was increased to 18 and his FiO2 was increased to 100%. Patient had a chest x-ray that showed some interstitial changes and findings of interstitial edema or interstitial infiltrates, Lasix was given at 40 mg IV push. Patient remains on propofol at 45 vital at 50 mL/h, patient had a PICC line placed on 08/15, and today I changed his endotracheal tube because of malfunctioning of his old endotracheal tube and kept popping off and getting disconnected. His Dec adron was changed to Solu-Medrol 60 mg IV push every 6 hours, and looking at the overall picture, patient is not showing significant improvement in the last 10 days and I am recommending surgical evaluation for possible tracheostomy, and PEG tube placement, and eventually may require placement in [facility] care [facility]. WBC count today is 8.7 hemoglobin 9.9 ABG as noted earlier electrolytes showed low potassium of 3.1, BUN of 42 creatinine 0.77 Patient was seen today on 08/17/2024, remains in the ICU, intubated and mechanically ventilated, patient is on assist-control rate of 20 tidal volume 5 00 FiO2 70% and I cut it down to 50% is PEEP remains 18 ABG today on 70% showed a pO2 of 113 pCO2 43 pH of 7.50. Will try to cut down the FiO2 to 50% and keep PEEP for now at 18 however the patient continues to maintain adequate O2 saturation may cut down the PEEP down to 16. Chest x-ray shows slight improvement compared to yesterday however patient is on a higher PEEP which may be misleading. Patient remains on propofol at 15 mg/kg/min vital HP at 50 cc/h. Patient is on Lasix 40 mg IV push twice daily remains on Eliquis. Off antibiotics, Remains on GI and DVT prophylaxis and mostly diuretics. Procalcitonin level came down to 0.18 hence will not restart antibiotics at this point. Sputum cultures are pending Seen today on 08/18/2024, patient remains in the ICU, intubated and mechanically ventilated, underwent uneventful tracheostomy yesterday, however a PEG tube could not be placed mostly because of his body habitus, surgery will consider open method for placement of the gastrostomy or jejunostomy tube down the line if felt to be necessary next week. In the meantime the patient is intubated mechanically ventilated he is on assist-control rate of 20 tidal volume 500 FiO2 50% PEEP of 16 I cut it down to 14, ABG showed a pO2 of 77 pCO2 41 pH of 7.52 EEG showed severe metabolic encephalopathy patient remains on propofol at 15 mcg/kg/min which I have discontinued today to fully assess mental status off sedation completely remains on enteral feeding patient is receiving tube feeding via nasogastric tube, patient is status post tracheostomy on 08/17/2024 remains on Eliquis remains on Lasix chest x-ray showing slight improvement but again patient is on relatively high PEEP. WBC count is 11.1 hemoglobin 10.3 platelets 512, basic metabolic profile is normal except for low potassium of 3.2 BUN is 53 creatinine 0.8. Patient was seen today on 08/19/2024, patient remains in the ICU, intubated and mechanically ventilated, he is on assist-control rate of 20 tidal volume 500 FiO2 50% PEEP 14 on the current down to 12 ABG showed a pO2 of 100 pCO2 44 pH of 7.50 patient remains on IV fluid at KVO 0.9 normal saline he is receiving vital HP at 50 cc/h his sputum cultures came back negative patient remains off antibiotics chest x-ray continues show a left lower lobe opacity and atelectasis, doubt pneumonia considering his procalcitonin level was normal and sputum was negative patient was on Zosyn which I have discontinued few days ago. Has been off sedation since yesterday, patient is waking up today, seems to follow simple instructions like squeezing hands, wiggling toes and opening eyes as well as sticking out his tongue but seems to be generally weak. WBC count is 11 hemoglobin is 11.2, basic metabolic profile is normal BUN is 56 creatinine 0.81 patient is still receiving enteral feeding via nasogastric tube, could not place PEG tube, however we will decide on the open approach for a PEG tube or jejunostomy tube next Thursday in the meantime I will continue to try possibly trials of weaning, and if I could get the patient to a trach collar, we could possibly deflate the cuff and address swallow evaluation. Seen today on 08/20/2024, patient remains in the ICU, intubated mechanically ventilated. Patient is on assist-control rate of 20 tidal volume 500 FiO2 50% and PEEP 12 I cut it down to 10 based on his ABG with pO2 of 100 pCO2 44 pH of 7.51 patient is awake, follows very simple instructions mostly squeezing hands, but does not wiggle toes today, patient is on vital AF at 55 mL/h, this is given via nasogastric tube, IV fluids at KVO, and he is on Eliquis. Remains on diuretics, he is off antibiotics. Chest x-ray is about the same, left lower lo be atelectasis noted, unchanged, procalcitonin level was normal hence patient has been off antibiotics. WBC count is 11.1 hemoglobin 10.8 basic metabolic profile is normal low potassium of 3.3 being addressed accordingly bicarb is 38 BUN is 58 creatinine 0.66, remains on diuretics. Patient was seen today on 08/21/2024, remains in the ICU, intubated and mechanically ventilated. Patient is on assist-control rate of 24 tidal volume 500 FiO2 50% and PEEP of 8 ABG showed a pO2 of 80, pCO2 46 pH of 7.53. Patient is developing low-grade fever overnight, he is also developing worsening leukocytosis, he has now purulent sputum, hence am recommending that we go back on Zosyn, sputum cultures and trach secretions cultures are pending. In the meantime we will place back on Zosyn. Patient is now up in the chair, tracheostomy site seems to be wide, patient may need reevaluation by surgery, hand surgery was reconsulted to evaluate the tracheostomy site. Attempts were made to have a PEG tube placed endoscopically, however this could not be performed, and surgery may have to consider open gastrostomy tube placement. Today I am asking the surgical staff to address his surgical wounds/tracheostomy site, as it seems to be gaping. Patient is arousable, follows very simple instructions like squeezing hands closing eyes, wiggling toes. Patient is remains on enteral feeding vital AF 55/55 via nasogastric tube. Patient is off propofol, yesterday I recommended Lovenox 80 mg SQ twice daily, he used to be on Eliquis for atrial fibrillation however considering that the patient may require surgery/open gastrostomy tube placement, I am recommending Lovenox for now 80 mg SQ twice daily. Continues on Lasix 40 mg twice daily and today and Zosyn was added. WBC count is up-to-day to 20.3 hemoglobin 11.5, basic metabolic profile is normal bicarb is 37 BUN is 60 creatinine 0.56 chest x-ray showing left lower lobe atelectasis possible left lower lobe airspace disease. Possible pneumonia. 08/22/2024 patient seen and examined at bedside. Patient still remains in ICU intubated and mechanically ventilated. Status post tracheostomy day 4. Patient still noted to have bleeding from tracheostomy site. Ventilator currently on assist-control with a rate of 20, tidal volume 50, FiO2 50% and a PEEP of 8. Patient currently on Zosyn IVPB for empiric coverage, IV Solu-Medrol at 60 mg every 6 hours, and amiodarone drip at 0.5 mg/min. Still currently on vital AF for enteric feeding at the rate of 55. ABG today shows PaO2 of 72, pCO2 49, and pH of 7.5. Labs today show WBC at 16.8, hemoglobin 10.4, platelet count 416,000, sodium 142, potassium 3.7, chloride 95, bicarb 40, BUN 69, creatinine 0.71, glucose 201, calcium 9.5. Chest x-ray showed bilateral opacities consistent with acute infiltrates and/or atelectasis shows no change from prior x-rays. Review of Systems: Pertinent positives and negatives have been noted above. The rest of systems are unremarkable. GENERAL: Not in distress, nontoxic, 63-year-old white male awake seems to follow simple instructions HEENT: Pupils are round and equally reacting to light. EOMI. No scleral icterus. No conjunctival pallor. Normocephalic, atraumatic. No pharyngeal erythema. No thyromegaly. Tracheostomy site seems to have widened and gaping surgical site, will have surgery address. CARDIOVASCULAR: irregularly irregular S1-S2, no S3 gallop. PULMONARY: Good breath sound bilaterally no crackles rhonchi or wheezes ABDOMEN: obese soft nontender no megaly, no rebound, no guarding. MUSCULOSKELETAL: No joint swelling or deformity. EXTREMITIES: No cyanosis, clubbing, continues with 2+ bipedal edema NEUROLOGICAL: Arousable, follows simple instructions however patient is extremely weak. Psychiatric: Unable to fully assess SKIN: Patient has a stage II skin ulcer at the distal lateral aspect of the right lower extremity/chronic Impression: -Active: Acute hypoxic respiratory failure requiring intubation mechanical ventilation, multifactorial Acute COVID-19 pneumonia Acute fluid overload and bilateral pleural effusions most likely secondary to diastolic congestive heart failure New onset seizure activity, on Keppra Chronic atrial fibrillation Morbid obesity -Chronic: History of CVA Benign essential hypertension Obesity hypoventilation syndrome with BMI of 63.9 Obstructive sleep apnea syndrome Congestive heart failure with preserved LV function Type 2 diabetes Iron deficiency anemia History of polysubstance abuse History of right foot diabetic infection with previous incision and drainage in July 04, 2023 Status post endotracheal tube changed on 08/16 Status post tracheostomy on 08/17/2024 Acute metabolic encephalopathy Recommendation: Continue ventilatory support. SBT today at PS 8 and CPAP of 5 Continue to hold sedation. Neurology service following. Continue Keppra 750mg IVP every 12 hours Continue Zosyn IVPB for now until neck cultures return Continue diuretics including Lasix 40mg IV every 12 hours and Zaroxolyn 5mg PO daily. Consider dose of diamox if bicarb continues to be elevated Anticoagulation held due to tracheostomy bleed Continue nutritional support/enteral feeding to goal rate Neck cultures pending May or may not require PEG tube placement per surgery Tracheostomy management per surgery service GI prophylaxis: Protonix 40mg IV daily DVT prophylaxis: SCDs Prognosis: guarded. Patient remains critically ill Objective - Vital Signs Vital signs: Vital Signs Temp 100.2 F H 08/22/24 04:00 Pulse 102 H 08/22/24 07:00 Resp 20 08/22/24 07:00 BP 130/85 08/21/24 22:00 Pulse Ox 95 08/22/24 07:00 FiO2 50 08/22/24 04:00 Intake & Output 08/21/24 08/22/2425 18:59 06:59 18:59 Intake Total 996 1006 68 Output Total 1635 1275 75 Balance -639 -269 -7 Weight 183.433 kg Intake: IV 246 256 13 KVO 110 120 10 Piperacillin-Tazobactam 3 100 100 .375 gm In Sodium Chloride 0.9% 100 ml @ 25 mls/hr IVPB Q8HR [facility] Rx# :[id number] Pressure Bag 36 36 3 Tube Feeding 660 660 55 Other 90 90 Output: Urine 1635 1275 75 Other: Voiding Method Indwelling Catheter Indwelling Catheter ABP, PAP, CO, CI - Last Documented Arterial Blood Pressure 155/91 - Labs CBC & Chem 7: 08/22/24 04:05 08/22/24 04:05 Labs: Abnormal Lab Results - Last 24 Hours (Table) 08/21/24 08/21/24 08/21/24 Range/Units 11:53 12:10 18:40 WBC (3.8-10.6) k/uL Hgb (13.0-17.5) gm/dL Hct (39.0-53.0) % MCV (80.0-100.0) fL MCH (25.0-35.0) pg MCHC (31.0-37.0) g/dL RDW (11.5-15.5) % ABG pH (7.35-7.45) ABG pCO2 (35-45) mmHg ABG pO2 (83-108) mmHg ABG HCO3 (21-25) mmol/L ABG Total CO2 (19-24) mmol/L Hemoglobin (13.0-17.5) gm/dL Potassium 3.4 L (3.5-5.1) mmol/L Chloride (98-107) mmol/L Carbon Dioxide (22-30) mmol/L BUN (9-20) mg/dL Glucose (74-99) mg/dL POC Glucose (mg/dL) 127 H 127 H (70-110) mg/dL 08/21/24 08/22/24 08/22/24 Range/Units 22:51 04:05 04:05 WBC 16.8 H (3.8-10.6) k/uL Hgb 10.4 L (13.0-17.5) gm/dL Hct 34.9 L (39.0-53.0) % MCV 76.1 L (80.0-100.0) fL MCH 22.7 L (25.0-35.0) pg MCHC 29.9 L (31.0-37.0) g/dL RDW 16.3 H (11.5-15.5) % ABG pH (7.35-7.45) ABG pCO2 (35-45) mmHg ABG pO2 (83-108) mmHg ABG HCO3 (21-25) mmol/L ABG Total CO2 (19-24) mmol/L Hemoglobin (13.0-17.5) gm/dL Potassium (3.5-5.1) mmol/L Chloride 95 L (98-107) mmol/L Carbon Dioxide 40 H (22-30) mmol/L BUN 69 H (9-20) mg/dL Glucose 201 H (74-99) mg/dL POC Glucose (mg/dL) 170 H (70-110) mg/dL 08/22/24 08/22/24 Range/Units 04:56 05:28 WBC (3.8-10.6) k/uL Hgb (13.0-17.5) gm/dL Hct (39.0-53.0) % MCV (80.0-100.0) fL MCH (25.0-35.0) pg MCHC (31.0-37.0) g/dL RDW (11.5-15.5) % ABG pH 7.50 H (7.35-7.45) ABG pCO2 49 H (35-45) mmHg ABG pO2 72 L (83-108) mmHg ABG HCO3 38 H (21-25) mmol/L ABG Total CO2 40 H (19-24) mmol/L Hemoglobin 10.9 L (13.0-17.5) gm/dL Potassium (3.5-5.1) mmol/L Chloride (98-107) mmol/L Carbon Dioxide (22-30) mmol/L BUN (9-20) mg/dL Glucose (74-99) mg/dL POC Glucose (mg/dL) 201 H (70-110) mg/dL Microbiology - Last 24 Hours (Table) 08/21/24 12:40 Gram Stain - Preliminary Neck 08/21/24 10:12 Gram Stain - Preliminary Sputum
[2024-08-22 11:40] LABS: Glucose,Whole Blood 238 mg/dL (70-110)
--- NOTE | 2024-08-22 14:02 | P.PN ---
Subjective Progress Note Date: 08/22/24 SURGICAL PROGRESS NOTE CHIEF COMPLAINT: Respiratory failure HISTORY OF PRESENT ILLNESS: Patient remains in the ICU and on the vent. He is status post tracheostomy placement on 08/17/2024. Patient had bleeding at the tracheostomy site yesterday. Evaluated by Dr. Monteiro who applied silver nitrate sticks, Surgicel and pressure dressing. Patient's bandage around the tracheostomy site is saturated with blood. Afebrile. Mildly tachycardic. WBC is 16.8 Hgb is down from 11.5-10.4 platelets 416 PHYSICAL EXAM: VITAL SIGNS: Reviewed. GENERAL: no acute distress. Intubated HEENT: Tracheostomy site with no further oozing from the trach site. The bandage around the tracheostomy site is saturated with older blood ABDOMEN: Soft. Obese. Nondistended. Nontender. Neuro: eyes are open ASSESSMENT: 1. Acute hypoxic respiratory failure unable to wean from vent status post tracheostomy placement 2. Severe protein calorie malnutrition PLAN: -Patient scheduled for open gastrostomy tube placement on Thursday with Dr. Chowdhury -Continue to monitor tracheostomy site -Continue to hold Lovenox Physician Clerk General Office note has been reviewed by physician. Signing provider agrees with the documented findings, assessment, and plan of care. Objective - Vital Signs Vital signs: Vital Signs Temp 99.9 F H 08/22/24 08:00 Pulse 110 H 08/22/24 11:00 Resp 13 08/22/24 11:00 BP 130/85 08/22/24 11:00 Pulse Ox 95 08/22/24 11:00 FiO2 50 08/22/24 08:00 Intake & Output 08/21/24 08/22/24 08/22/24 18:59 06:59 18:59 Intake Total 996 1006 402 Output Total 1635 1275 750 Balance -639 -269 -348 Weight 183.433 kg Intake: IV 246 256 152 KVO 110 120 40 Piperacillin-Tazobactam 3 100 100 100 .375 gm In Sodium Chloride 0.9% 100 ml @ 25 mls/hr IVPB Q8HR [facility] Rx# :[id number] Pressure Bag 36 36 12 Tube Feeding 660 660 220 Other 90 90 30 Output: Urine 1635 1275 750 Other: Voiding Method Indwelling Catheter Indwelling Catheter Indwelling Catheter ABP, PAP, CO, CI - Last Documented Arterial Blood Pressure 134/78 - Labs CBC & Chem 7: 08/22/24 04:05 08/22/24 04:05 Labs: Abnormal Lab Results - Last 24 Hours (Table) 08/21/24 08/21/24 08/21/24 Range/Units 12:10 18:40 22:51 WBC (3.8-10.6) k/uL Hgb (13.0-17.5) gm/dL Hct (39.0-53.0) % MCV (80.0-100.0) fL MCH (25.0-35.0) pg MCHC (31.0-37.0) g/dL RDW (11.5-15.5) % ABG pH (7.35-7.45) ABG pCO2 (35-45) mmHg ABG pO2 (83-108) mmHg ABG HCO3 (21-25) mmol/L ABG Total CO2 (19-24) mmol/L Hemoglobin (13.0-17.5) gm/dL Potassium 3.4 L (3.5-5.1) mmol/L Chloride (98-107) mmol/L Carbon Dioxide (22-30) mmol/L BUN (9-20) mg/dL Glucose (74-99) mg/dL POC Glucose (mg/dL) 127 H 170 H (70-110) mg/dL 08/22/24 08/22/24 08/22/24 Range/Units 04:05 04:05 04:56 WBC 16.8 H (3.8-10.6) k/uL Hgb 10.4 L (13.0-17.5) gm/dL Hct 34.9 L (39.0-53.0) % MCV 76.1 L (80.0-100.0) fL MCH 22.7 L (25.0-35.0) pg MCHC 29.9 L (31.0-37.0) g/dL RDW 16.3 H (11.5-15.5) % ABG pH (7.35-7.45) ABG pCO2 (35-45) mmHg ABG pO2 (83-108) mmHg ABG HCO3 (21-25) mmol/L ABG Total CO2 (19-24) mmol/L Hemoglobin (13.0-17.5) gm/dL Potassium (3.5-5.1) mmol/L Chloride 95 L (98-107) mmol/L Carbon Dioxide 40 H (22-30) mmol/L BUN 69 H (9-20) mg/dL Glucose 201 H (74-99) mg/dL POC Glucose (mg/dL) 201 H (70-110) mg/dL 08/22/24 08/22/24 Range/Units 05:28 11:38 WBC (3.8-10.6) k/uL Hgb (13.0-17.5) gm/dL Hct (39.0-53.0) % MCV (80.0-100.0) fL MCH (25.0-35.0) pg MCHC (31.0-37.0) g/dL RDW (11.5-15.5) % ABG pH 7.50 H (7.35-7.45) ABG pCO2 49 H (35-45) mmHg ABG pO2 72 L (83-108) mmHg ABG HCO3 38 H (21-25) mmol/L ABG Total CO2 40 H (19-24) mmol/L Hemoglobin 10.9 L (13.0-17.5) gm/dL Potassium (3.5-5.1) mmol/L Chloride (98-107) mmol/L Carbon Dioxide (22-30) mmol/L BUN (9-20) mg/dL Glucose (74-99) mg/dL POC Glucose (mg/dL) 238 H (70-110) mg/dL Microbiology - Last 24 Hours (Table) 08/21/24 12:40 Gram Stain - Preliminary Neck 08/21/24 10:12 Gram Stain - Preliminary Sputum
--- NOTE | 2024-08-22 16:51 | P.PN ---
Subjective Progress Note Date: 08/22/24 08/22/2024: Patient was followed up by Dr. Rio Miguel over the last week and Dr. Clemons over this last weekend. Today, Thursday I am resuming neurology service. Patient appears to have had tracheostomy on 08/17/2024. Patient is off sedation since 08/19/2024. Per nursing report, patient opens eyes, but does not track. Squeezes hands intermittently. Moves all 4 extremities. Patient is going for possible PEG placement on 08/24/2024. They may need transfer to LTAC. 08/12/2024: Patient was seen for a follow-up. Patient continues to be unresponsive. With painful stimuli, patient only does facial grimacing. Patient's neurological examination is stable per nurse, but he is requiring more PEEP and respiratory status is not improving, in fact slightly worse. Patient is on propofol 15 mcg/kg's per minute. 08/11/2024: Patient was seen for follow-up patient currently on propofol 15 mcg/kg/min. Per nurse report, with the sedation holiday, patient nodded yes and no appropriately. He wiggle his feet, squeeze the hands, but not much moving proximally. He is breathing was not better, was on PEEP 16, with 100% O2, but not has improved with FiO2 down to 80%. 08/10/2024: Patient was seen for a follow-up. Patient currently on propofol 20 mcg/kg's per minute. Per nurse report, with the sedation holiday, patient opens eyes, coughing gagging and drinking well. However not moving his limbs. Sedation holiday was done for about 30 minutes. 08/09/2024: Patient was seen for follow-up. Patient is off sedation. Patient opens his eyes, but the gaze is deviated upwards. Per nurse report, patient became bradycardic last night going down to 25's. X-ray revealed worsening congestion. Lasix was increased. Patient subsequently oxygen saturation decreased, therefore the PEEP was increased to 14. Last night nurse noted that he was not much responsive. It was the same time he was bradycardic she weaned down the sedation. At present patient is on propofol only 15 mcg/kg's per minute. Fentanyl was turned off at 4 PM yesterday. No seizure-like activity noted. Objective - Vital Signs Vital signs: Vital Signs Temp 98.2 F 08/22/24 12:00 Pulse 98 08/22/24 15:00 Resp 12 08/22/24 15:00 BP 130/85 08/22/24 10:00 Pulse Ox 94 L 08/22/24 13:00 FiO2 50 08/22/24 12:27 Intake & Output 08/21/24 08/22/24 08/22/24 18:59 06:59 18:59 Intake Total 996 1006 954 Output Total 1635 1275 1300 Balance -639 -269 -346 Weight 183.433 kg Intake: IV 246 256 204 KVO 110 120 80 Piperacillin-Tazobactam 3 100 100 100 .375 gm In Sodium Chloride 0.9% 100 ml @ 25 mls/hr IVPB Q8HR [facility] Rx# :[id number] Pressure Bag 36 36 24 Intake, IV Titration 250 Amount Amiodarone 450 mg In 250 Dextrose 5% in Water 250 ml @ 0.5 MG/MIN 16.667 mls/hr IV .Q15H [facility] Rx#: [id number] Tube Feeding 660 660 440 Other 90 90 60 Output: Urine 1635 1275 1300 Other: Voiding Method Indwelling Catheter Indwelling Catheter Indwelling Catheter ABP, PAP, CO, CI - Last Documented Arterial Blood Pressure 123/67 - Exam Patient is off sedation. He is receiving Zosyn. Also on amiodarone. Patient has tracheostomy in place. He is awake but somewhat spacey. Patient's pupils are equal, round and reacting. He does slightly track briefly. He slightly moans. NG tube is in place. No obvious seizure-like activity. He moves his arms at random. He moves his left arm, almost as if there is a left wrist drop. He did not cooperate with examination. He does facial grimacing with painful stimuli but not clearly withdraws. He did not wiggle his toes, or moved his feet on painful stimuli. Reflexes are 1 at the biceps, absent elsewhere. - Labs CBC & Chem 7: 08/22/24 04:05 08/22/24 04:05 Labs: Abnormal Lab Results - Last 24 Hours (Table) 08/21/24 08/21/24 08/22/24 Range/Units 18:40 22:51 04:05 WBC 16.8 H (3.8-10.6) k/uL Hgb 10.4 L (13.0-17.5) gm/dL Hct 34.9 L (39.0-53.0) % MCV 76.1 L (80.0-100.0) fL MCH 22.7 L (25.0-35.0) pg MCHC 29.9 L (31.0-37.0) g/dL RDW 16.3 H (11.5-15.5) % ABG pH (7.35-7.45) ABG pCO2 (35-45) mmHg ABG pO2 (83-108) mmHg ABG HCO3 (21-25) mmol/L ABG Total CO2 (19-24) mmol/L Hemoglobin (13.0-17.5) gm/dL Chloride (98-107) mmol/L Carbon Dioxide (22-30) mmol/L BUN (9-20) mg/dL Glucose (74-99) mg/dL POC Glucose (mg/dL) 127 H 170 H (70-110) mg/dL 08/22/24 08/22/24 08/22/24 Range/Units 04:05 04:56 05:28 WBC (3.8-10.6) k/uL Hgb (13.0-17.5) gm/dL Hct (39.0-53.0) % MCV (80.0-100.0) fL MCH (25.0-35.0) pg MCHC (31.0-37.0) g/dL RDW (11.5-15.5) % ABG pH 7.50 H (7.35-7.45) ABG pCO2 49 H (35-45) mmHg ABG pO2 72 L (83-108) mmHg ABG HCO3 38 H (21-25) mmol/L ABG Total CO2 40 H (19-24) mmol/L Hemoglobin 10.9 L (13.0-17.5) gm/dL Chloride 95 L (98-107) mmol/L Carbon Dioxide 40 H (22-30) mmol/L BUN 69 H (9-20) mg/dL Glucose 201 H (74-99) mg/dL POC Glucose (mg/dL) 201 H (70-110) mg/dL 08/22/24 Range/Units 11:38 WBC (3.8-10.6) k/uL Hgb (13.0-17.5) gm/dL Hct (39.0-53.0) % MCV (80.0-100.0) fL MCH (25.0-35.0) pg MCHC (31.0-37.0) g/dL RDW (11.5-15.5) % ABG pH (7.35-7.45) ABG pCO2 (35-45) mmHg ABG pO2 (83-108) mmHg ABG HCO3 (21-25) mmol/L ABG Total CO2 (19-24) mmol/L Hemoglobin (13.0-17.5) gm/dL Chloride (98-107) mmol/L Carbon Dioxide (22-30) mmol/L BUN (9-20) mg/dL Glucose (74-99) mg/dL POC Glucose (mg/dL) 238 H (70-110) mg/dL Microbiology - Last 24 Hours (Table) 08/21/24 10:12 Gram Stain - Preliminary Sputum Sputum Culture - Preliminary Gram Neg Bacilli 08/21/24 12:40 Gram Stain - Preliminary Neck Assessment and Plan Assessment: * Altered mental status, likely due to hypoxic/toxic metabolic encephalopathy. Patient was found unresponsive at the facility, with saturation of 70%. * Acute COVID-19 pneumonia. Chest x-ray showing bilateral infiltrates. * Status post tracheostomy 08/17/2024 * Respiratory failure, on mechanical ventilation via tracheostomy * Atrial fibrillation, on Eliquis * Anemia * Hyperlipidemia * Hypertension * Sleep apnea * Diabetic neuropathy * History of CVA * Obesity hyperventilation syndrome with BMI of 63.9 * CHF * Diabetes type 2 * BPH * Previous history of polysubstance abuse Plan: * EEG 08/08/2024, revealed background slowing moderate to severe degree, suggestive of encephalopathy. Some sporadic normal appearing background was also seen, which may pertain to better prognosis. However clinical correlation and follow-up EEG strongly recommended. * Repeat EEG performed 08/17/2024 was abnormal due to background slowing, sugges tive of severe encephalopathy, likely due to toxic metabolic derangement. Otherwise no focal slowing, epileptiform discharges or seizure on the EEG. Clinical correlation recommended. * Repeat CT head showed no acute intracranial process. * Patient currently on Keppra 750 mg twice daily. We will decrease Keppra down to 500 mg twice daily. * Continue Eliquis for atrial fibrillation. * Patient on Zosyn. * Possible PEG placement on 08/24/2024. * Other medical management as per IM and critical care. * Discussed with nursing staff in detail.
[2024-08-22 18:44] LABS: Glucose,Whole Blood 187 mg/dL (70-110)
[2024-08-22] MEDS: levETIRAcetam IV 500 MG/5 ML VIAL IVP SCH (19:26)
[2024-08-22 23:40] LABS: Glucose,Whole Blood 233 mg/dL (70-110)
--- NOTE | 2024-08-23 02:49 | P.PN ---
Subjective Progress Note Date: 08/22/24 Patient in the intensive care unit currently intubated and sedated on the mechanical ventilator. Patient's chest x-ray today does reveal worsening CHF. He is significantly edematous. Remains sedated with IV fentanyl and propofol. He continues on IV Zosyn. Patient was started on enteral feedings today. blood sugars are elevated in the 200s. 08/07/2024 Patient was evaluated in follow-up in the medical floor he is currently intubated and sedated on the mechanical ventilator. Patient had gone into atrial fibrillation with rapid ventricular rate overnight requiring IV Cardizem. He has been since transition to oral metoprolol with heart rate better controlled today. He does have a noted history of atrial fibrillation was resumed on his oral Eliquis yesterday. Patient currently has LR running at 75 mL/h he does remain quite edematous mostly in his lower extremities. Patient was noted to have a small amount of yellow bile emesis there has been no residual with his tube feedings and they are continued at a slow rate today of 10 mL/h. He is febrile today temperature of 100.8. An abdominal x-ray was unable to be completed due to patient's body habitus and he is unable to be transported down for x-ray at this time. 08/08/2024 Patient is seen in follow-up in the ICU and overnight placed on mechanical ventilation as patient was noted to have what appeared to be seizure-like activity with no history of seizures and neurology was consulted. Patient was placed on mechanical ventilation currently with an FiO2 of 60% and PEEP is 10 with pulmonary maintenance service supervisor following. Patient remains with low-grade temps and also started on Keppra and is maintained on antibiotics. Cardiology following as well maintained on oral anticoagulation and has been having heart rates in the 40s. Continued on low-dose metoprolol and will continue to monitor closely. Per nursing staff patient also requiring low-dose Levophed and has been started on 40 of IV Lasix daily due to significant swelling. Will follow-up on repeat labs and continue to monitor closely. 08/09/2024 Patient is seen in follow-up with multiple consultations following including pulmonary, neurology, cardiology, and infectious disease consulted. Patient underwent EEG which was abnormal with no epileptiform discharges noted. Patient is continued on Keppra for now. Heart rates in the low 40s although per nursing staff slightly improved this afternoon and is being monitored closely with cardiology following. Patient is continued on Lasix for diuresis with significant volume overload. Wean pressors as tolerated and follow-up on repeat labs. Patient's blood sugars have been more elevated and possible steroid effect will increase long-acting and also Accu-Cheks before meals and at bedtime as well as sliding scale. Adjust accordingly. 08/10/2024 Patient is seen in follow-up today continues on mechanical ventilation in the ICU with an FiO2 of 80% and PEEP is 14. Undergoing sedation holidays and per nursing staff patient will open his eyes and attempt to track although not moving. Patient continues to be extremely edematous and is diuresing maintained on IV Lasix. Heart rates slightly improved and will continue current regimen per cardiology. No plans on extubation at this time. Per nursing staff patient has not had a bowel movement and is continued on bowel regimen. Abdomen is soft and there is positive bowel sounds noted. Patient continued on tube feeds. Highly recommend aspiration precautions and head of the bed elevated 30 to 45 degrees at all times. 08/12/2024 Patient is seen in follow-up today remains in the ICU with multiple consultations following. PEEP remains high at 16 with an FiO2 of 70% and per nursing staff has been having some desaturations and is being increased to 80% FiO2. Patient is maintained on metolazone along with IV Lasix and potassium borderline daily being replaced will add daily supplementation. Patient is having adequate diuresis and kidney functions are stable. Patient undergoing sedation holidays daily with no plans of weaning and extubation at this time. Patient is afebrile and maintained on IV Decadron along with Zosyn. Continue bowel regimen patient does have positive bowel sounds and is tolerating tube feeds at this time. Recommend aspiration precautions with head of the bed elevated 45 degrees at all times. 08/13/2024 Patient evaluated in the intensive care unit with multiple consultations following. Patient remains on the mechanical ventilator with a PEEP of 16 and FiO2 of 70%. Patient is appropriately arousable during sedation holidays. No plans for extubation at this time. Patient continues on IV Zosyn continues on IV Lasix IV Diamox and continues on oral zaroxolyn. Lower extremities remain significantly edematous. Patient is continued on enteral feedings now at goal running at 55 mL/h. Blood glucose has been elevated in the 200s. Chest x-ray today reveals a left-sided pleural effusion. 08/14/2024 Patient eval today in follow-up in the intensive care unit patient remains on mechanical ventilator, FiO2 down to 50%. Chest x-ray today reveals stable left lower lobe infiltrate and effusion. Patient remains on IV decadron daily. IV lasix 40 mg Q12 hour. Increased urine output over the last 24 hours. Lower extre mity edema has mildly improved. Bowels are moving. Patient is tolerating enteral feeding. IV zosyn has been discontinued. WBC 8.3, hgb 9.2, sodium 133, BUN 34, creatinine 0.90, magnesium 1.9. Patient evaluated today in follow up in the ICU. Vent settings were decreased yesterday to 50% FiO2 with a PEEP of 12, patient became increasingly hypoxic. Vent settings increased back up to 70% fio2 and PEEP of 16. Remains on IV decadron daily. Continues on IV lasix 40 mg Q12 hour as well as oral zaroxolyn. Chest xray today shows left perihilar infiltrate and small left pleural effusion. Patient remains on enteral feedings with Vital HP running at goal of 50 mls/hr and tolerating. Blood glucose remains elevated in the 200-300s. Labs revealing white blood cell count 7.2, hgb 9.5, sodium 132, BUN 38, creatinine 0.85. Procal 0.18. TSH 1.780. 08/16/2023 Patient evaluated today in the ICU. Remains on mechanical ventilator with PEEP of 70% FiO2 of 16. Chest xray today reveals mild right upper lobe infiltrate. Additional mild infiltrate may be at the left base. General surgery consulted f or tracheostomy and PEG tube placement. White blood cell count 8.7, hgb 9.9, sodium 132, potassium 4.5, BUN 42, creatinine 0.77. 08/17/2023 Was evaluated today in the intensive care unit. Patient remains on mechanical ventilator with an FiO2 of 60% and PEEP of 18. X-ray today reveals a mild garret hilar increased lung markings stable from comparison. Patient catheter tip are currently negative. His white blood blood count is normal at 8.5, hemoglobin 9.7, sodium 134, BUN of 47 and creatinine of 0.75. Is currently on IV Solu- Medrol 60 mg every 6 hours. He is sedated with propofol. He is on IV Keppra. He is currently off antibiotic at this time. 08/18/2023 Patient is status post tracheostomy placement continues on the mechanical ventilator, FiO2 of 50% and PEEP of 16. Patient continues to have evidence of altered mentation with EEG showing severe metabolic encephalopathy. Dispatcher Radio planning to discontinue the propofol at this time to assess patient's mental status. He continues on IV Lasix with slight improvement on the chest x-ray today. The PEG tube was unable to be placed secondary to body habitus. Labs today reveal a white blood cell count 11.1, hemoglobin 10.3, sodium 134, potassium 3.2, BUN 53 creatinine of 0.80. 08/19/2024 Patient is seen in follow-up continues in the ICU status post tracheostomy placement currently off sedation and awake today opening eyes and eye tracking attempting to follow commands although is significantly weak. Patient continues on assist mode and FiO2 is 50% and PEEP was decreased to 12. Multiple consultations following including general surgery as they were unable to place a PEG tube and will continue with tube feeds via NG. Considering possible open gastrostomy tube given patient's body habitus. Patient is afebrile and being monitored with infectious disease following off antibiotic therapy. Patient also continues on IV diuresis and tolerating well. Patient being followed by pulmonary attempting to wean as tolerated and also maintained on steroids with mildly elevated blood sugars more so than normal in the 200s will slightly increase long-acting insulin and monitor closely. Follow-up with repeat labs. Case management also following in the event patient will require possible LTAC admission. 08/20/2024 Patient is evaluated today in follow up on the intensive care unit. Patient is status post tracheostomy placement. He remains off sedation. Eyes are opening to verbal stimulation and tracing and following simple commands he is significantly weak. He remains on the mechanical ventilator with FiO2 of 50% and PEEP of 10. He is being considered for trial of CPAP tomorrow. chest xray today reveals stable left lower lobe airspace disease stable support tubes and lines. Patient continues on IV lasix 40 mg every 12 hours. White blood cell count today 11.1, hgb 10.8, sodium 138, potassium 3.3, BUN 58, creatinine 0.66, magnesium 2.1. 08/21/2024 Patient seen in follow-up today continues to be in the ICU with multiple consultations following. Patient remains on tracheostomy and vent with an FiO2 of 50%. Patient is having some increase in white count up to 20 along with low- grade temps and is being reinitiated on antibiotics in the form of Zosyn with infectious disease following. Cardiology following as well and patient is being placed on amiodarone drip. General surgery following status post via tracheostomy and there is some bleeding noted on the tracheostomy site and suture being replaced. Continue head of the bed elevated 35 to 45 degrees at all times and strict aspiration precautions. General surgery following for possible G-tube as well. PEG tube was unsuccessful. 08/22/2024 Patient is seen in follow-up today sitting up in the bed had some continued bleeding around the tracheostomy site and anticoagulation remains on hold and patient with surgery following placed a suture and is continued on packing exchanges around the site. Patient also continues on tube feeds via NG tube with general surgery following discussing possible GE tube with open surgery sometime this week. Hemoglobin is stable above 10 and will monitor closely. Patient is currently on CPAP mode with an FiO2 of 50% and PEEP is 5. Medications being adjusted per cardiology as patient was continued on amiodarone drip. Unable to complete review of systems as patient is currently intubated. Patient does eye track and follow commands Active Medications Acetaminophen (Acetaminophen Tab 325 Mg Tab) 650 mg PO Q6HR PRN PRN Reason: Fever and/ or Pain Last Admin: 08/21/24 23:10 Dose: 650 mg Albuterol Sulfate (Albuterol Nebulized 2.5 Mg/3 Ml) 2.5 mg INHALATION RT-QID PRN PRN Reason: Shortness Of Breath Or Wheezing Bisacodyl (Bisacodyl 10 Mg Supp) 10 mg RECTAL HS [facility] Last Admin: 08/22/24 19:19 Dose: Not Given Chlorhexidine Gluconate (Chlorhexidine Gluconate 15 Ml Cup) 15 ml MUCOUS MEM BID [facility] Last Admin: 08/22/24 19:27 Dose: 15 ml Cholecalciferol (Cholecalciferol 25 Mcg (1000 Iu) Tablet) 25 mcg PO DAILY [facility] Last Admin: 08/22/24 08:22 Dose: 25 mcg Dextrose/Water (Dextrose 50% Syringe 50 Ml) 25 ml IVP PER PROTOCOL PRN; Protocol PRN Reason: Hypoglycemia Dextrose/Water (Dextrose 50% Syringe 50 Ml) 50 ml IVP PER PROTOCOL PRN; Protocol PRN Reason: Hypoglycemia Furosemide (Furosemide 10 Mg/Ml 4 Ml Vial) 40 mg IV Q12HR [facility] Last Admin: 08/22/24 19:27 Dose: 40 mg Hydromorphone HCl (Hydromorphone 1 Mg/Ml 1 Ml Syringe) 1 mg IVP Q3HR PRN PRN Reason: Pain Last Admin: 08/22/24 23:52 Dose: 1 mg Piperacillin Sod/Tazobactam (Sod 3.375 gm/ Sodium Chloride) 100 mls @ 25 mls/hr IVPB Q8HR [facility]; Protocol Last Admin: 08/22/24 23:43 Dose: 25 mls/hr Insulin Aspart (Insulin Aspart (Novolog) 100 Unit/Ml Vial) 0 unit SQ Q6H [facility]; Protocol Last Admin: 08/22/24 23:42 Dose: 8 unit Insulin Detemir (Insulin Detemir (Levemir) 100 Unit/Ml Syr) 60 unit SQ BID@0700,2100 [facility] Last Admin: 08/22/24 19:54 Dose: 60 unit Levetiracetam (Levetiracetam Iv 500 Mg/5 Ml Vial) 500 mg IVP Q12HR [facility] Last Admin: 08/22/24 19:26 Dose: 500 mg Lorazepam (Lorazepam 2 Mg/Ml Inj) 1 mg IV Q1HR PRN PRN Reason: Anxiety Last Admin: 08/20/24 22:47 Dose: 1 mg Methylprednisolone Sodium Succinate (Methylprednisolone Sod Succi 125 Mg/2 Ml Vial) 60 mg IV Q6HR [facility] Last Admin: 08/22/24 23:43 Dose: 60 mg Metolazone (Metolazone 5 Mg Tab) 5 mg PO DAILY [facility] Last Admin: 08/22/24 08:22 Dose: 5 mg Miscellaneous Information (Phosphorus Replacement Protoco 1 Each Misc) 1 each MISCELLANE DAILY PRN; Protocol PRN Reason: Per Protocol Naloxone HCl (Naloxone 0.4 Mg/Ml 1 Ml Vial) 0.2 mg IV Q2M PRN PRN Reason: Opioid Reversal Pantoprazole Sodium (Pantoprazole 40 Mg/10 Ml Vial) 40 mg IV DAILY [facility] Last Admin: 08/22/24 08:21 Dose: 40 mg Petrolatum (Zinc Oxide Paste (Z-Guard) 1 Applic) 1 applic TOPICAL BID PRN; Protocol PRN Reason: Wound Healing Potassium Bicarbonate (Potassium Bicarbonate/Cit Ac 20 Meq Tablet.Eff) 40 meq PO DAILY [facility] Last Admin: 08/22/24 11:57 Dose: 40 meq PHYSICAL EXAMINATION: GENERAL: The patient is intubated and awake but very lethargic. Fatigues easily although does respond to name and eye tracking and blinking eyes. He is morbidly obese, well-developed, elderly appearing, extremely edematous of upper and lower extremities and body habitus, ill-appearing. FiO2 is currently 50% with a PEEP of 5 HEENT: Pupils are round and equally reacting to light. EOMI. No scleral icterus. No conjunctival pallor. Normocephalic, atraumatic. No pharyngeal erythema. No thyromegaly. Bleeding noted around the tracheostomy site and dressings being changed, suture was applied per surgery CARDIOVASCULAR: S1 and S2 muffled, irregular PULMONARY: Diminished breath sounds bilaterally otherwise chest is clear to auscultation, no wheezing , no crackles. ABDOMEN: Soft, obese, nontender, nondistended, normoactive bowel sounds. No palpable organomegaly. Kelly catheter in place MUSCULOSKELETAL: No joint swelling or deformity. EXTREMITIES: No cyanosis, clubbing, continues with significant lower extremity edema bilaterally pitting right lower leg superficial wound is improved with no significant redness and some mild flaking of the skin noted NEUROLOGICAL: Awake although fatigues easily, eye-opening and responding to name, tracking, attempting to follow simple commands extremely weak SKIN: No rashes. no petechiae. Assessment: Acute hypoxic respiratory failure requiring intubation on admission, currently on mechanical ventilation, FiO2 is 50% with PEEP of 5. Status post tracheostomy on 08/17/2024 COVID infection and possible pneumonia, concerns for aspiration pneumonia Leukocytosis with low-grade temps, repeat cultures obtained along with sputum pending preliminary showing MRSA and gram-negative bacilli Possible seizure like activity, new onset, EEG was abnormal although not showing any epileptiform discharges, continued on Keppra for now with neurology following Possible acute COPD exacerbation versus obesity hypoventilation syndrome Possible bacterial pneumonia, healthcare associated with right upper lobe and left lower lobe infiltrates, ruled out, white count is normal and patient is off antibiotics, cultures are negative Severe sepsis requiring pressor support Acute on chronic diastolic heart failure with preserved EF A-fib and RVR, present on admission with slow ventricular rate dropping into the 30s. Currently rate controlled Right leg wound with recent cultures showing enterococcus faecalis, ESBL and Providencia Rettgeri Diabetes Mellitus type 2, uncontrolled with hyperglycemia Steroid induced hyperglycemia Morbid obesity with a BMI of 64.2 Chronic anemia Lactic acidemia/acidosis, improved GI prophylaxis DVT prophylaxis Full Code Plan: Patient had completed a course of antibiotic therapy and remained off zosyn however patient began having increasing white count and low-grade temps and preliminary cultures repeated of the sputum and tracheostomy area showing preliminary gram-negative bacilli with MRSA. Infectious diseases following and Zosyn has been reinitiated and will continue with wound care Mechanical ventilator per maintenance service supervisor. No plans for extubation at this time and undergoing sedation holidays. Patient is status post tracheostomy on 08/17/2024. Currently on CPAP mode today 08/22/2024. Continue enteral feedings, tube feeds were resumed and tolerating thus far.. Continue with aspiration precautions and head of the bed elevated 45 degrees at all times and monitor closely for residuals Continue bowel regimen and also daily suppositories. PEG was unable to be placed by general surgery secondary to patient's body habitus. Will need to be open gastrostomy tube placement per surgery and awaiting consent Patient does not have history of seizures and was started on Keppra and neurology following underwent EEG which was abnormal although not showing any epileptiform discharges. No further seizure-like activity noted. Neurology following as needed Per pulmonary maintenance service supervisor patient is continued on IV Lasix every 12 hours. And will continue to monitor kidney functions closely. Replace electrolytes per protocol. Daily supplementation of potassium ordered Patient having some continued bleeding at the tracheostomy site requiring a suture with general surgery and anticoagulation has been placed on hold due to increased bleeding. Dressing changes being changed although continue to saturate slowly. Hemoglobin is stable above 10 Continue with Accu-Cheks [id number] sliding scale along with long-acting. Levemir will be slightly increased to 60 units SQ BID and also continue novolog scale which has been adjusted to high dose He is continued on IV Solu-Medrol Repeat blood work in the AM Overall prognosis is guarded and CODE STATUS needs to be addressed. Case management following in the event patient may require possible LTAC. Pulmonary maintenance service supervisor planning on weaning as tolerated and was able to decrease the rate of PEEP to 5 and is continued at 50% FiO2. Mentation is improving and patient is maintained off propofol. Patient is significantly weak and has had prolonged hospitalization. Patient will require extensive physical rehab as well as tracheostomy care. Awaiting to discuss further regarding G-tube insertion and will continue with NG tube for now. Continue with aspiration precautions. CODE STATUS remains full code at this time The impression and plan of care has been dictated by Jocy Randle, Nurse Practitioner as directed. Dr. Crow MD I have performed a history and physical examination and medical decision making of this patient, discussed the same with the dictator, and agree with the dicta tors assessment and plan as written, documented as a scribe. Based on total visit time, I have performed more than 50% of this visit. Objective - Vital Signs Vital signs: Vital Signs Temp 98.9 F 08/23/24 00:00 Pulse 98 08/23/24 02:00 Resp 9 L 08/23/24 02:00 BP 112/79 08/21/24 15:00 Pulse Ox 100 08/23/24 02:00 FiO2 50 08/23/24 00:00 Intake & Output 08/22/24 08/22/24 08/23/24 06:59 18:59 06:59 Intake Total 1006 1188 704 Output Total 1275 1575 840 Balance -269 -387 -136 Weight 183.433 kg 183.433 kg Intake: IV 256 243 204 KVO 120 110 80 Piperacillin-Tazobactam 3 100 100 100 .375 gm In Sodium Chloride 0.9% 100 ml @ 25 mls/hr IVPB Q8HR [facility] Rx# :[id number] Pressure Bag 36 33 24 Intake, IV Titration 250 Amount Amiodarone 450 mg In 250 Dextrose 5% in Water 250 ml @ 0.5 MG/MIN 16.667 mls/hr IV .Q15H [facility] Rx#: [id number] Tube Feeding 660 605 440 Other 90 90 60 Output: Urine 1275 1575 840 Other: Voiding Method Indwelling Catheter Indwelling Catheter Indwelling Catheter ABP, PAP, CO, CI - Last Documented Arterial Blood Pressure 157/93 - Labs CBC & Chem 7: 08/22/24 04:05 08/22/24 04:05 Labs: Abnormal Lab Results - Last 24 Hours (Table) 08/22/24 08/22/24 08/22/24 Range/Units 04:05 04:05 04:56 WBC 16.8 H (3.8-10.6) k/uL Hgb 10.4 L (13.0-17.5) gm/dL Hct 34.9 L (39.0-53.0) % MCV 76.1 L (80.0-100.0) fL MCH 22.7 L (25.0-35.0) pg MCHC 29.9 L (31.0-37.0) g/dL RDW 16.3 H (11.5-15.5) % ABG pH (7.35-7.45) ABG pCO2 (35-45) mmHg ABG pO2 (83-108) mmHg ABG HCO3 (21-25) mmol/L ABG Total CO2 (19-24) mmol/L Hemoglobin (13.0-17.5) gm/dL Chloride 95 L (98-107) mmol/L Carbon Dioxide 40 H (22-30) mmol/L BUN 69 H (9-20) mg/dL Glucose 201 H (74-99) mg/dL POC Glucose (mg/dL) 201 H (70-110) mg/dL 08/22/24 08/22/24 08/22/24 Range/Units 05:28 11:38 18:42 WBC (3.8-10.6) k/uL Hgb (13.0-17.5) gm/dL Hct (39.0-53.0) % MCV (80.0-100.0) fL MCH (25.0-35.0) pg MCHC (31.0-37.0) g/dL RDW (11.5-15.5) % ABG pH 7.50 H (7.35-7.45) ABG pCO2 49 H (35-45) mmHg ABG pO2 72 L (83-108) mmHg ABG HCO3 38 H (21-25) mmol/L ABG Total CO2 40 H (19-24) mmol/L Hemoglobin 10.9 L (13.0-17.5) gm/dL Chloride (98-107) mmol/L Carbon Dioxide (22-30) mmol/L BUN (9-20) mg/dL Glucose (74-99) mg/dL POC Glucose (mg/dL) 238 H 187 H (70-110) mg/dL 08/22/24 Range/Units 23:39 WBC (3.8-10.6) k/uL Hgb (13.0-17.5) gm/dL Hct (39.0-53.0) % MCV (80.0-100.0) fL MCH (25.0-35.0) pg MCHC (31.0-37.0) g/dL RDW (11.5-15.5) % ABG pH (7.35-7.45) ABG pCO2 (35-45) mmHg ABG pO2 (83-108) mmHg ABG HCO3 (21-25) mmol/L ABG Total CO2 (19-24) mmol/L Hemoglobin (13.0-17.5) gm/dL Chloride (98-107) mmol/L Carbon Dioxide (22-30) mmol/L BUN (9-20) mg/dL Glucose (74-99) mg/dL POC Glucose (mg/dL) 233 H (70-110) mg/dL Microbiology - Last 24 Hours (Table) 08/21/24 16:47 Blood Culture - Preliminary Blood 08/21/24 23:45 Gram Stain - Preliminary Sputum 08/21/24 12:40 Gram Stain - Preliminary Neck Wound Culture - Preliminary Presumptive MRSA 08/21/24 10:12 Gram Stain - Preliminary Sputum Sputum Culture - Preliminary Gram Neg Bacilli
[2024-08-23 04:51] LABS: ABG Base Excess 8.6 mmol/L; ABG HCO3 33 mmol/L (21-25); ABG Oxygen Saturation 95.9 % (94-97); ABG PCO2 42 mmHg (35-45); ABG PO2 75 mmHg (83-108); ABG TCO2 34 mmol/L (19-24)
[2024-08-23 04:52] LABS: Allen Test Performed? no
[2024-08-23 04:57] LABS: Glucose,Whole Blood 217 mg/dL (70-110)
[2024-08-23 04:58] LABS: Anisocytosis Slight; Basophils % (A) 0 %; Eosinophils % (A) 0 %; HCT 38.6 % (39.0-53.0); HGB 10.8 gm/dL (13.0-17.5); Hypochromasia Marked; Lymphocytes # (A) 0.6 k/uL (1.0-4.8); Lymphocytes % (A) 6 %; MCH 21.7 pg (25.0-35.0); MCV 77.6 fL (80.0-100.0); Mean Platelet Volume 7.2; Microcytosis Slight; Monocytes # (A) 0.6 k/uL (0-1.0); Monocytes % (A) 6 %; Neutrophils # (A) 8.5 k/uL (1.3-7.7); Neutrophils % (A) 87 %; Platelet Count 436 k/uL (150-450); RBC 4.97 m/uL (4.30-5.90); RDW 16.3 % (11.5-15.5); WBC 9.8 k/uL (3.8-10.6)
[2024-08-23 05:13] LABS: Blood Urea Nitrogen 83 mg/dL (9-20); Calcium 9.3 mg/dL (8.4-10.2); Chloride 96 mmol/L (98-107); Glucose 228 mg/dL (74-99); Potassium 3.7 mmol/L (3.5-5.1); Sodium 145 mmol/L (137-145)
[2024-08-23 05:20] LABS: Anion Gap 11 mmol/L
[2024-08-23 06:22] LABS: Carbon Dioxide 38 mmol/L (22-30)
[2024-08-23] MEDS: POTASSIUM BICARBONATE/CIT AC 20 MEQ TABLET.EFF NG-TUBE SCH (06:33)
--- NOTE | 2024-08-23 07:46 | XR ---
EXAMINATION TYPE: XR chest 1V portable DATE OF EXAM: 08/23/2024 CLINICAL HISTORY: Difficulty breathing progress study. TECHNIQUE: Single AP portable semiupright view of the chest is obtained. COMPARISON: Chest x-ray from one day earlier and old studies FINDINGS: Stable tracheostomy and orogastric tubes. Stable left-sided PICC line. Persistent bibasilar increased opacities. Heart size mildly enlarged. Old healed fractures of the pos terior-lateral left fifth through seventh ribs are redemonstrated. IMPRESSION: Persistent bibasilar acute infiltrates and/or atelectasis with small right pleural effusi on remain present. [facility], , 08/23/2024 7:43 AM
[2024-08-23] MEDS ORDERED: METOPROLOL TARTRATE 12.5 MG TAB PO SCH (10:00)
[2024-08-23] MEDS ORDERED: VANCOMYCIN IV PER PHARMACY 1 EACH MISC MISCELLANE PRN (10:05)
[2024-08-23] MEDS: VANCOMYCIN 2,500 MG in SODIUM CHLORIDE 0.9% 500 ML 500 ML IVPB ONE (10:48)
[2024-08-23] MEDS: METOPROLOL TARTRATE 25 MG TAB PO SCH (10:48)
--- NOTE | 2024-08-23 10:58 | P.PN ---
Subjective Progress Note Date: 08/23/24 Acute hypoxic respiratory failure, multifactorial On 08/08/2024, the patient is being seen in follow-up in the intensive care unit. This is a morbidly obese 63-year-old male patient who is currently intubated on the mechanical ventilator. Initially presented to us on 08/05/2024 for respiratory distress and the patient became unresponsive. He is known to have morbid obesity, COPD, chronic A-fib, CVA, hypertension hyperlipidemia. He resides in a long term and the patient was found to be unresponsive and not breathing properly. His pulse ox was also very low and the patient was hypotensive and minimally responsive. He came into the emergency department where he was intubated and placed on the mechanical ventilator. Since admission, the patient was found to be COVID-19 positive. He had a follow-up chest x-ray today that shows significant rotation, ET tube is probably 1 cm above the damian and there is evidence of left lower lobe consolidation/effusion. Noted at the time of admission, he had also a right upper lobe consolidation in addition to left lower lobe consolidation. Sputum samples have been negative as collected on 08/05/2024 and blood cultures been also negative. No significant leukocytosis. The patient is currently on no antibiotics. The patient is on propofol which is running at 30 mcg/kg/min, and is also on fentanyl at 1 mcg/kg/h.. The patient is on assist-control mode of mechanical ventilation at rate of 20, tidal volume of 500, FiO2 of 60 % with a PEEP of 10. Blood gases from today shows a pH of 7.46 with a pCO2 of 51 and pO2 of 69 and this was an FiO2 of 60%. The patient is on lactated Ringer at rate of 75 cc an hour. The patient receiving vital high-protein at rate of 55 cc an hour. He remains in atrial fibrillation with rapid ventricular response. He is off Cardizem drip . He is also on metoprolol 12.5 mg twice a day and anticoagulation with Eliquis 5 mg p.o. twice a day. He is on Levemir insulin 15 units at bedtime. Earlier this morning, the patient noted to have episodic generalized tonic-clonic seizure-like activity. The patient was kept on propofol. He was given Ativan 2 mg IV push x 2 and started on Keppra. CAT scan of the brain is to follow. EEG is to follow. Neurology consultation is to follow. The patient is on lactated Ringer at rate of 75 cc an hour. Norepinephrine was also started this morning and is currently running at 0.03 mcg/kg/min. He is on EN , vital HP at 35 cc/hr On 08/09/2024, the patient is being seen for a follow-up. The patient remains intubated on the mechanical ventilator. This morning, the patient is on propofol which is running at 15 mcg/kg/min. Noted the propofol rate was gradually reduced as of yesterday and the fentanyl has been discontinued. Overnight, the patient continued to have bradycardic events and the heart rate was dropping as low as in the 40s and the rhythm remains atrial fibrillation. The patient was taken off the beta-blockers. The patient this morning is on assist-control mode of mechanical ventilation at rate of 20, tidal volume of 500, FiO2 of 60% with a PEEP of 5. Blood gas showed a pH of 7.51 with a pCO2 of 43 and pO2 of 64. Chest x-ray showing bilateral airspace disease, worse on the right essentially involving the lung bases. The patient is currently on no pressors. The patient remains on vital high-protein at rate of 45 cc an hour. No further seizure activity has been noted. The patient remains on IV Keppra. EEG showed encephalopathy without any seizure activity. Neurology on the case. The patient remains on IV Zosyn. The patient continues to have significant amount of edema in all 4 extremities and the patient remains on IV Lasix 40 mg every 12 hours. Fluid balance is +180 cc over the past 24 hours. Repeat cultures were sent and the results are still pending. The patient remains on anticoagulation with Eliquis regarding chronic atrial fibrillation. Cardizem drip is off. Metoprolol is currently on hold. On 08/10/2024, the patient is being seen for a follow-up. This morning, the patient is on propofol running at 20 mcg/kg/min. Remains deeply sedated. He is morbidly obese and he remains on the mechanical ventilator due to hypoxic/hypercapnic respiratory failure. This morning, he is on assist-control mode with rate of 20, tidal volume of 500, FiO2 is at 80% with a PEEP of 14. pH is 7.47 with a pCO2 of 44 and pO2 of 67. Chest x-ray shows bilateral pleural effusions and an area of dense consolidation in left upper lobe. There are signs of fluid overload as the patient continues to have extensive edema in all 4 extremities. He is on IV Lasix. Fluid balance is -1.5 L over the past 24 hours. The patient remains on IV Zosyn as an empiric antibiotic coverage. No pressors. No seizure activity and the patient remains on IV Keppra. EEG showed no evidence of any ongoing seizure activity. Remains on vital high-protein at rate of 45 cc an hour and the patient is on Levemir insulin 15 units twice a day. Blood work showed a white cell count of 6.8 with a hemoglobin 9.3 and a platelet count of 310. Sodium level is at 137, BUN is 25 with a creatinine of 0.8 and a potassium level is at 3.8. Procalcitonin level is at 0.48. The patient is afebrile. Hemodynamically, he is in low rate atrial fibrillation. Remains on anticoagulation with Eliquis. On 08/11/2024, the patient is being seen for a follow-up. The patient remains on propofol running at 20 mcg/kg/min. Sedation holiday was done today and the patient was arousable and he was able to follow simple commands. Nevertheless, is not ready for weaning with extubation he was placed back on propofol. At the same time, the patient is on assist-control mode of mechanical ventilation at a rate of 20, tidal volume of 500, FiO2 of 100% with a PEEP of 16. Noted his oxygenation got worse overnight and the patient was placed on 100% FiO2. Current pulse ox is 97%. She has been gradually been his FiO2. The blood gases showed a pH of 7.49 with a pCO2 of 51 and pO2 of 76. The patient is currently on Lasix 40 mg IV every 8 hours and Zaroxolyn 5 mg p.o. twice a day. The net fluid balance is -4.8 L over the past 24 hours. Continues to have evidence of bilateral pleural effusion and extensive pulmonary edema in addition to extensive swelling in the upper and lower extremities bilaterally. He is on Levemir insulin 15 units twice daily. He is on vital high-protein at rate of 45 cc an hour. No seizure activity has been noted. Remains on IV Zosyn. Afebrile. Hemodynamically stable. The white cell count is 6.8 with a hemoglobin 8.7 and a platelet count of 333. The sodium levels at 136, bicarb levels at 34, potassium is at 3.9, BUN is 27 with a creatinine of 0.7. No other significant events overnight. On 08/12/2024, patient remains intubated on mechanical ventilator. The patient is in a significant negative fluid balance and the patient is being diuresed with a combination of Lasix and Zaroxolyn. Fluid balance has been -4 L over the past 24 hours. The patient remains on Lasix 40 mg IV every 8 hours and Zaroxolyn 5 mg p.o. twice a day. The patient's follow-up chest x-ray from today shows improved aeration in the lungs. There is cardiomegaly. There is continued pulmonary edema and bilateral pleural effusions. Tube remains in good location. He is on assist-control mode of mechanical ventilation at rate of 20, tidal volume of 500, FiO2 of 70% with a PEEP of 16. Blood gas showed a pH of 7.54 with pCO2 48 and pO2 of 69. Remains on low rate atrial fibrillation and rate is controlled. Remains on vital high-protein at rate of 48 cc an hour. The white cell count is at 8 with a hemoglobin 8.9 and platelet count of 418. Sodium is at 135, BUN 33 with a creatinine of 0.6. Bicarbonate level is at 35. Afebrile. No other significant events overnight. Was given a sedation holiday and the patient's mentation was appropriate. Based on that, the patient was placed back on propofol which is running at 15 mcg/kg/min. On 08/13/2024, the patient remains intubated on the mechanical ventilator. Unfortunately, oxygenation remains unchanged despite excellent diuresis that the patient has achieved over the past 48 hours. For now, the patient is still on mechanical ventilator. Sedated with propofol running at 50 mcg/kg/min. He is on assist-control mode with rate of 20, tidal volume of 500, FiO2 of 80% with a PEEP of 16. The blood gas showed a pH of 7.56 with a pCO2 of 46 and pO2 of 101. Fluid balance is -4.8 L over the past 24 hours. The patient is afebrile., Comfortable. Hemodynamically stable on no pressors. White cell count of 9.1 with a hemoglobin 9.8 and a platelet count of 461. BUN 34 with a creatinine of 0.7 and sodium level of 134. Follow-up chest x-ray was done today and it shows left-sided pleural effusion, improvement in the volume status. ET tube remains in good location. The patient remains on anticoagulation with Eliquis regarding a low rate controlled atrial fibrillation. The patient remains on Eliquis 5 mg p.o. twice a day. The patient remains on Levemir insulin 20 units twice daily and sliding scale insulin coverage. The patient remains on empiric antibiotic coverage with IV Zosyn. On 08/14/2024, the patient remains on the mechanical ventilator on propofol runni ng at 50 mcg/kg/min. Remains on Lasix and Zaroxolyn. Fluid balance is -5.9 L over the past 24 hours and over the past 72 hours, the patient has been at least 19 L negative fluid balance. The ventilator settings are essentially unchanged. The patient remains on assist-control mode on mechanical ventilation at a rate of 20, tidal volume of 500, FiO2 of 70% with a PEEP of 16. Morning blood gas s howed a pH of 7.52 with a pCO2 of 44 and pO2 of 86. The patient is on Levemir insulin 25 units twice daily. The patient is on vital high-protein. The patient remains on Levemir insulin for blood sugar control and the patient is currently on 25 units twice a day with adequate blood sugar control. Labs from today show a white cell count of 8, hemoglobin of 9.2 and a platelet count of 474. Sodium levels at 133, K is at 3.3, bicarb is at 40, BUN 34 with a creatinine of 0.9. The patient remains on IV Zosyn. Patient was seen today on 08/15/2024, remains in the ICU, intubated and mechanically ventilated, on assist-control rate of 20 tidal volume 500 FiO2 50% PEEP of 12 his ABG is marginal with a pO2 of 72 pCO2 of 45 pH of 7.45, hence no plans to lower down the PEEP from 12 although it was 16 yesterday. Patient remains on propofol 25 mcg/kg/min he is also on vital HP at 55 cc/h cultures h ave been negative procalcitonin 0.18 patient is arousable, follows simple instructions, however he is not quite ready for weaning. In addition to his multiple medical problems, patient has COVID-19 pneumonia, chest x-ray continues to show evidence of bilateral bibasilar and midlung infiltrates, small left pleural effusion is also noted WBC count is 7.2 hemoglobin 9.5 ABG as noted earlier, Basic metabolic profile is normal bicarb is 36 BUN 38 creatinine 0.85 patient was seen today on 08/16/2024, patient remains in the ICU, bated and mechanically ventilated, he is on assist-control rate of 20 tidal volume 500 FiO2 70% PEEP was 12 and increased to 18 as his ABG showed a pO2 of 74 pCO2 52 pH of 7.43 and that was on 70% and PEEP of 12 patient had endotracheal tube changed today done at bedside, and post intubation his O2 saturation remained in the 80s/85%, follow-up ABG showed a pO2 of 54 pCO2 of 52 pH of 7.42 hence the PEEP was increased to 18 and his FiO2 was increased to 100%. Patient had a chest x-ray that showed some interstitial changes and findings of interstitial edema or interstitial infiltrates, Lasix was given at 40 mg IV push. Patient remains on propofol at 45 vital at 50 mL/h, patient had a PICC line placed on 08/15, and today I changed his endotracheal tube because of malfunctioning of his old endotracheal tube and kept popping off and getting disconnected. His Dec adron was changed to Solu-Medrol 60 mg IV push every 6 hours, and looking at the overall picture, patient is not showing significant improvement in the last 10 days and I am recommending surgical evaluation for possible tracheostomy, and PEG tube placement, and eventually may require placement in [facility] care [facility]. WBC count today is 8.7 hemoglobin 9.9 ABG as noted earlier electrolytes showed low potassium of 3.1, BUN of 42 creatinine 0.77 Patient was seen today on 08/17/2024, remains in the ICU, intubated and mechanically ventilated, patient is on assist-control rate of 20 tidal volume 5 00 FiO2 70% and I cut it down to 50% is PEEP remains 18 ABG today on 70% showed a pO2 of 113 pCO2 43 pH of 7.50. Will try to cut down the FiO2 to 50% and keep PEEP for now at 18 however the patient continues to maintain adequate O2 saturation may cut down the PEEP down to 16. Chest x-ray shows slight improvement compared to yesterday however patient is on a higher PEEP which may be misleading. Patient remains on propofol at 15 mg/kg/min vital HP at 50 cc/h. Patient is on Lasix 40 mg IV push twice daily remains on Eliquis. Off antibiotics, Remains on GI and DVT prophylaxis and mostly diuretics. Procalcitonin level came down to 0.18 hence will not restart antibiotics at this point. Sputum cultures are pending Seen today on 08/18/2024, patient remains in the ICU, intubated and mechanically ventilated, underwent uneventful tracheostomy yesterday, however a PEG tube could not be placed mostly because of his body habitus, surgery will consider open method for placement of the gastrostomy or jejunostomy tube down the line if felt to be necessary next week. In the meantime the patient is intubated mechanically ventilated he is on assist-control rate of 20 tidal volume 500 FiO2 50% PEEP of 16 I cut it down to 14, ABG showed a pO2 of 77 pCO2 41 pH of 7.52 EEG showed severe metabolic encephalopathy patient remains on propofol at 15 mcg/kg/min which I have discontinued today to fully assess mental status off sedation completely remains on enteral feeding patient is receiving tube feeding via nasogastric tube, patient is status post tracheostomy on 08/17/2024 remains on Eliquis remains on Lasix chest x-ray showing slight improvement but again patient is on relatively high PEEP. WBC count is 11.1 hemoglobin 10.3 platelets 512, basic metabolic profile is normal except for low potassium of 3.2 BUN is 53 creatinine 0.8. Patient was seen today on 08/19/2024, patient remains in the ICU, intubated and mechanically ventilated, he is on assist-control rate of 20 tidal volume 500 FiO2 50% PEEP 14 on the current down to 12 ABG showed a pO2 of 100 pCO2 44 pH of 7.50 patient remains on IV fluid at KVO 0.9 normal saline he is receiving vital HP at 50 cc/h his sputum cultures came back negative patient remains off antibiotics chest x-ray continues show a left lower lobe opacity and atelectasis, doubt pneumonia considering his procalcitonin level was normal and sputum was negative patient was on Zosyn which I have discontinued few days ago. Has been off sedation since yesterday, patient is waking up today, seems to follow simple instructions like squeezing hands, wiggling toes and opening eyes as well as sticking out his tongue but seems to be generally weak. WBC count is 11 hemoglobin is 11.2, basic metabolic profile is normal BUN is 56 creatinine 0.81 patient is still receiving enteral feeding via nasogastric tube, could not place PEG tube, however we will decide on the open approach for a PEG tube or jejunostomy tube next Thursday in the meantime I will continue to try possibly trials of weaning, and if I could get the patient to a trach collar, we could possibly deflate the cuff and address swallow evaluation. Seen today on 08/20/2024, patient remains in the ICU, intubated mechanically ventilated. Patient is on assist-control rate of 20 tidal volume 500 FiO2 50% and PEEP 12 I cut it down to 10 based on his ABG with pO2 of 100 pCO2 44 pH of 7.51 patient is awake, follows very simple instructions mostly squeezing hands, but does not wiggle toes today, patient is on vital AF at 55 mL/h, this is given via nasogastric tube, IV fluids at KVO, and he is on Eliquis. Remains on diuretics, he is off antibiotics. Chest x-ray is about the same, left lower lo be atelectasis noted, unchanged, procalcitonin level was normal hence patient has been off antibiotics. WBC count is 11.1 hemoglobin 10.8 basic metabolic profile is normal low potassium of 3.3 being addressed accordingly bicarb is 38 BUN is 58 creatinine 0.66, remains on diuretics. Patient was seen today on 08/21/2024, remains in the ICU, intubated and mechanically ventilated. Patient is on assist-control rate of 24 tidal volume 500 FiO2 50% and PEEP of 8 ABG showed a pO2 of 80, pCO2 46 pH of 7.53. Patient is developing low-grade fever overnight, he is also developing worsening leukocytosis, he has now purulent sputum, hence am recommending that we go back on Zosyn, sputum cultures and trach secretions cultures are pending. In the meantime we will place back on Zosyn. Patient is now up in the chair, tracheostomy site seems to be wide, patient may need reevaluation by surgery, hand surgery was reconsulted to evaluate the tracheostomy site. Attempts were made to have a PEG tube placed endoscopically, however this could not be performed, and surgery may have to consider open gastrostomy tube placement. Today I am asking the surgical staff to address his surgical wounds/tracheostomy site, as it seems to be gaping. Patient is arousable, follows very simple instructions like squeezing hands closing eyes, wiggling toes. Patient is remains on enteral feeding vital AF 55/55 via nasogastric tube. Patient is off propofol, yesterday I recommended Lovenox 80 mg SQ twice daily, he used to be on Eliquis for atrial fibrillation however considering that the patient may require surgery/open gastrostomy tube placement, I am recommending Lovenox for now 80 mg SQ twice daily. Continues on Lasix 40 mg twice daily and today and Zosyn was added. WBC count is up-to-day to 20.3 hemoglobin 11.5, basic metabolic profile is normal bicarb is 37 BUN is 60 creatinine 0.56 chest x-ray showing left lower lobe atelectasis possible left lower lobe airspace disease. Possible pneumonia. 08/22/2024 patient seen and examined at bedside. Patient still remains in ICU intubated and mechanically ventilated. Status post tracheostomy day 4. Patient still noted to have bleeding from tracheostomy site. Ventilator currently on assist-control with a rate of 20, tidal volume 50, FiO2 50% and a PEEP of 8. Patient currently on Zosyn IVPB for empiric coverage, IV Solu-Medrol at 60 mg every 6 hours, and amiodarone drip at 0.5 mg/min. Still currently on vital AF for enteric feeding at the rate of 55. ABG today shows PaO2 of 72, pCO2 49, and pH of 7.5. Labs today show WBC at 16.8, hemoglobin 10.4, platelet count 416,000, sodium 142, potassium 3.7, chloride 95, bicarb 40, BUN 69, creatinine 0.71, glucose 201, calcium 9.5. Chest x-ray showed bilateral opacities consistent with acute infiltrates and/or atelectasis shows no change from prior x-rays. 08/23/2024 patient seen and examined at bedside. Patient still remains in ICU intubated and mechanically ventilated. Status post tracheostomy day 5. Patient still noted to have some bleeding from tracheostomy site. Patient was able to tolerate CPAP for 10 hours. Ventilator currently on assist-control with a rate of 20, tidal volume 500, FiO2 50% and a PEEP of 5. On enteral feeding with Vital AF at a rate of 55. Patient currently on Zosyn IVPB for empiric coverage, IV Solu-Medrol at 60 mg every 6 h, metolazone 5 mg p.o. daily, and Lasix 40 mg every 12 hours. ABG today showed PaO2 75, pCO2 42, pH 7.5. Labs today show WBC 9.8, hemoglobin 10.8, platelet count 436,000, sodium 145, potassium 3.7, bicarb 38, BUN 83, creatinine 0.68, glucose 228, calcium 9.3. Chest x-ray showed bibasilar acute infiltrates and/or atelectasis with small right pleural effusion. Neck cultures from 08/21 showed presumptive MRSA. Review of Systems: Pertinent positives and negatives have been noted above. The rest of systems are unremarkable. GENERAL: Not in distress, nontoxic, 63-year-old white male awake seems to follow simple instructions HEENT: Pupils are round and equally reacting to light. EOMI. No scleral icterus. No conjunctival pallor. Normocephalic, atraumatic. No pharyngeal erythema. No thyromegaly. Tracheostomy site seems to have widened and gaping surgical site, will have surgery address. CARDIOVASCULAR: irregularly irregular S1-S2, no S3 gallop. PULMONARY: Good breath sound bilaterally no crackles rhonchi or wheezes ABDOMEN: obese soft nontender no megaly, no rebound, no guarding. MUSCULOSKELETAL: No joint swelling or deformity. EXTREMITIES: No cyanosis, clubbing, continues with 2+ bipedal edema NEUROLOGICAL: Arousable, follows simple instructions however patient is extremely weak. Psychiatric: Unable to fully assess SKIN: Patient has a stage II skin ulcer at the distal lateral aspect of the right lower extremity/chronic Impression: -Active: Acute hypoxic respiratory failure requiring intubation mechanical ventilation, multifactorial, s/p tracheostomy on 08/17. Neck cultures show presumptive MRSA Acute COVID-19 pneumonia Acute fluid overload and bilateral pleural effusions most likely secondary to diastolic congestive heart failure New onset seizure activity, on Keppra Chronic atrial fibrillation Morbid obesity -Chronic: History of CVA Benign essential hypertension Obesity hypoventilation syndrome with BMI of 63.9 Obstructive sleep apnea syndrome Congestive heart failure with preserved LV function Type 2 diabetes Iron deficiency anemia History of polysubstance abuse History of right foot diabetic infection with previous incision and drainage in July 04, 2023 Status post endotracheal tube changed on 08/16 Status post tracheostomy on 08/17/2024 Acute metabolic encephalopathy Recommendation: Continue ventilatory support. SBT today with PSV 8 and CPAP 5 Continue to hold sedation. Neurology service following. Continue Keppra 750mg IVP every 12 hours Continue Zosyn IVPB for now until neck cultures return Initiate Vancomycin dosed per pharmacy Discontinue Lasix 40mg IV every 12 hours Restarted Lopressor 12.5 mg p.o twice daily Decrease solumedrol IV to 40mg every 8 hours Anticoagulation held due to tracheostomy bleed Continue nutritional support/enteral feeding to goal rate For open gastrostomy tube palcement on Thursday 08/24 per surgery service Tracheostomy management per surgery service GI prophylaxis: Protonix 40mg IV daily DVT prophylaxis: SCDs Prognosis: guarded. Patient remains critically ill. LTAC recommended for this patient on discharge. Objective - Vital Signs Vital signs: Vital Signs Temp 100.2 F H 08/23/24 04:00 Pulse 100 08/23/24 07:00 Resp 20 08/23/24 07:00 BP 112/79 08/21/24 15:00 Pulse Ox 98 08/23/24 07:00 FiO2 50 08/23/24 08:23 Intake & Output 08/22/24 08/23/24 08/23/24 18:59 06:59 18:59 Intake Total 1188 1074 Output Total 1575 1190 Balance -387 -116 Weight 183.433 kg 178.8 kg Intake: IV 243 269 KVO 110 130 Piperacillin-Tazobactam 3 100 100 .375 gm In Sodium Chloride 0.9% 100 ml @ 25 mls/hr IVPB Q8HR [facility] Rx# :[id number] Pressure Bag 33 39 Intake, IV Titration 250 Amount Amiodarone 450 mg In 250 Dextrose 5% in Water 250 ml @ 0.5 MG/MIN 16.667 mls/hr IV .Q15H F[facility] Rx#: [id number] Tube Feeding 605 715 Other 90 90 Output: Urine 1575 1190 Other: Voiding Method Indwelling Catheter Indwelling Catheter ABP, PAP, CO, CI - Last Documented Arterial Blood Pressure 126/75 - Labs CBC & Chem 7: 08/23/24 06:00 08/23/24 06:00 Labs: Abnormal Lab Results - Last 24 Hours (Table) 01/08/22/24 08/22/24 Range/Units 11:38 18:42 23:39 Hgb (13.0-17.5) gm/dL Hct (39.0-53.0) % MCV (80.0-100.0) fL MCH (25.0-35.0) pg MCHC (31.0-37.0) g/dL RDW (11.5-15.5) % Neutrophils # (1.3-7.7) k/uL Lymphocytes # (1.0-4.8) k/uL ABG pH (7.35-7.45) ABG pO2 (83-108) mmHg ABG HCO3 (21-25) mmol/L ABG Total CO2 (19-24) mmol/L Hemoglobin (13.0-17.5) gm/dL Chloride (98-107) mmol/L Carbon Dioxide (22-30) mmol/L BUN (9-20) mg/dL Glucose (74-99) mg/dL POC Glucose (mg/dL) 238 H 187 H 233 H (70-110) mg/dL 08/23/24 08/23/24 08/23/24 Range/Units 04:47 04:55 06:00 Hgb 10.8 L (13.0-17.5) gm/dL Hct 38.6 L (39.0-53.0) % MCV 77.6 L (80.0-100.0) fL MCH 21.7 L (25.0-35.0) pg MCHC 28.0 L (31.0-37.0) g/dL RDW 16.3 H (11.5-15.5) % Neutrophils # 8.5 H (1.3-7.7) k/uL Lymphocytes # 0.6 L (1.0-4.8) k/uL ABG pH 7.50 H (7.35-7.45) ABG pO2 75 L (83-108) mmHg ABG HCO3 33 H (21-25) mmol/L ABG Total CO2 34 H (19-24) mmol/L Hemoglobin 9.5 L (13.0-17.5) gm/dL Chloride (98-107) mmol/L Carbon Dioxide (22-30) mmol/L BUN (9-20) mg/dL Glucose (74-99) mg/dL POC Glucose (mg/dL) 217 H (70-110) mg/dL 08/23/24 Range/Units 06:00 Hgb (13.0-17.5) gm/dL Hct (39.0-53.0) % MCV (80.0-100.0) fL MCH (25.0-35.0) pg MCHC (31.0-37.0) g/dL RDW (11.5-15.5) % Neutrophils # (1.3-7.7) k/uL Lymphocytes # (1.0-4.8) k/uL ABG pH (7.35-7.45) ABG pO2 (83-108) mmHg ABG HCO3 (21-25) mmol/L ABG Total CO2 (19-24) mmol/L Hemoglobin (13.0-17.5) gm/dL Chloride 96 L (98-107) mmol/L Carbon Dioxide 38 H (22-30) mmol/L BUN 83 H (9-20) mg/dL Glucose 228 H (74-99) mg/dL POC Glucose (mg/dL) (70-110) mg/dL Microbiology - Last 24 Hours (Table) 08/21/24 16:47 Blood Culture - Preliminary Blood 08/21/24 23:45 Gram Stain - Preliminary Sputum 08/21/24 12:40 Gram Stain - Preliminary Neck Wound Culture - Preliminary Presumptive MRSA 08/21/24 10:12 Gram Stain - Preliminary Sputum Sputum Culture - Preliminary Gram Neg Bacilli
--- NOTE | 2024-08-23 12:05 | PN ---
PROGRESS NOTE SUBJECTIVE: This is a 63-year-old gentleman, who is in the ICU with respiratory failure, status post tracheostomy, currently mechanically ventilated. The patient is awaiting PEG tube placement. He has history of permanent atrial fibrillation, hypertension, dyslipidemia, and COPD. Cardiology was initially consulted for atrial fibrillation. They have seen and signed off. Last time we evaluated was back on August 19. Subsequently, the patient was started on IV amiodarone and I have been reconsulted. OBJECTIVE: VITAL SIGNS: The patient is in atrial fibrillation with around 90 to 100 beats heart rate, blood pressure is 126/76, respiratory rate is 15. CHEST: Reveals diminished air entry at the bases. HEART: Reveals first and second heart sounds. Regular rhythm. ABDOMEN: Soft. EXTREMITIES: Reveals bilateral pitting edema. LABORATORY DATA: Show a potassium of 3.7, creatinine is 0.68, hemoglobin is 10.8, and platelet count is 436. The patient was on Eliquis prior to admission. He is currently not on anything. ASSESSMENT: Persistent atrial fibrillation. PLAN: I am going to stop the amiodarone, restart the patient on metoprolol and watch for bradycardia. After the patient undergoes acute placement, we should consider resuming the Eliquis that he was on at home. MMODL / IJN: [id number] /
[2024-08-23 12:24] LABS: Glucose,Whole Blood 77 mg/dL (70-110)
[2024-08-23 12:26] LABS: Glucose,Whole Blood 228 mg/dL (70-110)
--- NOTE | 2024-08-23 13:10 | P.PN ---
Subjective Progress Note Date: 08/23/24 SURGICAL PROGRESS NOTE CHIEF COMPLAINT: Respiratory failure HISTORY OF PRESENT ILLNESS: Patient remains in the ICU and on the vent. He is status post tracheostomy placement on 08/17/2024. Patient had bleeding at the tracheostomy site over the weekend. Evaluated by Dr. Monteiro who applied silver nitrate sticks, Surgicel and pressure dressing. No new bleeding noted. Low-grade temp 100.2 this morning. WBC is down from 16-9.8 Hgb 10.8 platelets 436 sodium 145 potassium 3.7 creatinine 0.68 PHYSICAL EXAM: VITAL SIGNS: Reviewed. GENERAL: no acute distress. HEENT: Tracheostomy site no active bleeding. Dressing with old blood ABDOMEN: Soft. Obese. Nondistended. Nontender. ASSESSMENT: 1. Acute hypoxic respiratory failure unable to wean from vent status post tracheostomy placement 2. Severe protein calorie malnutrition PLAN: -Patient scheduled for open gastrostomy tube placement tomorrow with Dr. Chowdhury -Continue to monitor tracheostomy site. Discussed with nursing staff to change the gauze dressing around trach site -Continue to hold Lovenox -Hold tube feeds after midnight Physician Custody Officer note has been reviewed by physician. Signing provider agrees with the documented findings, assessment, and plan of care. Objective - Vital Signs Vital signs: Vital Signs Temp 98.0 F 08/23/24 08:00 Pulse 99 08/23/24 11:00 Resp 13 08/23/24 11:00 BP 112/79 08/21/24 15:00 Pulse Ox 100 08/23/24 11:00 FiO2 50 08/23/24 11:51 Intake & Output 08/22/24 08/23/24 08/23/24 18:59 06:59 18:59 Intake Total 1188 1074 902 Output Total 1575 1190 675 Balance -387 -116 227 Weight 183.433 kg 178.8 kg Intake: IV 243 269 642 KVO 110 130 30 Piperacillin-Tazobactam 3 100 100 100 .375 gm In Sodium Chloride 0.9% 100 ml @ 25 mls/hr IVPB Q8HR [facility] Rx# :[id number] Pressure Bag 33 39 12 Vancomycin 2,500 mg In 500 Sodium Chloride 0.9% 500 ml 500 ml @ 167 mls/hr IVPB ONCE ONE Rx#: [id number] Intake, IV Titration 250 Amount Amiodarone 450 mg In 250 Dextrose 5% in Water 250 ml @ 0.5 MG/MIN 16.667 mls/hr IV .Q15H [facility] Rx#: [id number] Tube Feeding 605 715 230 Other 90 90 30 Output: Urine 1575 1190 675 Other: Voiding Method Indwelling Catheter Indwelling Catheter Indwelling Catheter ABP, PAP, CO, CI - Last Documented Arterial Blood Pressure 126/76 - Labs CBC & Chem 7: 08/23/24 06:00 08/23/24 06:00 Labs: Abnormal Lab Results - Last 24 Hours (Table) 08/22/24 08/22/24 08/23/24 Range/Units 18:42 23:39 04:47 Hgb (13.0-17.5) gm/dL Hct (39.0-53.0) % MCV (80.0-100.0) fL MCH (25.0-35.0) pg MCHC (31.0-37.0) g/dL RDW (11.5-15.5) % Neutrophils # (1.3-7.7) k/uL Lymphocytes # (1.0-4.8) k/uL ABG pH 7.50 H (7.35-7.45) ABG pO2 75 L (83-108) mmHg ABG HCO3 33 H (21-25) mmol/L ABG Total CO2 34 H (19-24) mmol/L Hemoglobin 9.5 L (13.0-17.5) gm/dL Chloride (98-107) mmol/L Carbon Dioxide (22-30) mmol/L BUN (9-20) mg/dL Glucose (74-99) mg/dL POC Glucose (mg/dL) 187 H 233 H (70-110) mg/dL 08/23/24 08/23/24 08/23/24 Range/Units 04:55 06:00 06:00 Hgb 10.8 L (13.0-17.5) gm/dL Hct 38.6 L (39.0-53.0) % MCV 77.6 L (80.0-100.0) fL MCH 21.7 L (25.0-35.0) pg MCHC 28.0 L (31.0-37.0) g/dL RDW 16.3 H (11.5-15.5) % Neutrophils # 8.5 H (1.3-7.7) k/uL Lymphocytes # 0.6 L (1.0-4.8) k/uL ABG pH (7.35-7.45) ABG pO2 (83-108) mmHg ABG HCO3 (21-25) mmol/L ABG Total CO2 (19-24) mmol/L Hemoglobin (13.0-17.5) gm/dL Chloride 96 L (98-107) mmol/L Carbon Dioxide 38 H (22-30) mmol/L BUN 83 H (9-20) mg/dL Glucose 228 H (74-99) mg/dL POC Glucose (mg/dL) 217 H (70-110) mg/dL Microbiology - Last 24 Hours (Table) 08/21/24 16:47 Blood Culture - Preliminary Blood 08/21/24 23:45 Gram Stain - Preliminary Sputum 08/21/24 12:40 Gram Stain - Preliminary Neck Wound Culture - Preliminary Presumptive MRSA 08/21/24 10:12 Gram Stain - Preliminary Sputum Sputum Culture - Preliminary Gram Neg Bacilli
--- NOTE | 2024-08-23 14:42 | P.PN ---
Subjective Progress Note Date: 08/22/24 Principal diagnosis: Reason for follow-up is pneumonia Patient is a 63-year-old male with a past medical history significant for diabetes mellitus hypertension hyperlipidemia atrial fibrillation sleep apnea patient has been brought to the hospital in respiratory distress, patient noted to be at has been reviewed the ICU tested positive for COVID subsequently did have persistent fever and white count concerning for possible aspiration pneumonia prompting this consultation. On today's evaluation that is Patient is status post tracheostomy completed on 08/17/2024, attempted PEG tube placement which could not be placed because of morbid obesity and very thick abdominal wall. On today's evaluation that is 08/22/2024, patient did have a temperature of 100.2 F at 4 AM patient remains to be intubated through the trach. FiO2 is currently stable at 50% did have some bleeding around his trach site but no significant purulent drainage no other changes reported. Patient white count is down to 16.8 creatinine is 0.7 Objective - Vital Signs Vital signs: Vital Signs Temp 99.9 F H 08/22/24 08:00 Pulse 110 H 08/22/24 11:00 Resp 13 08/22/24 11:00 BP 130/85 08/22/24 11:00 Pulse Ox 95 08/22/24 11:00 FiO2 50 08/22/24 08:00 Intake & Output 08/21/24 08/22/24 08/22/24 18:59 06:59 18:59 Intake Total 996 1006 402 Output Total 1635 1275 750 Balance -639 -269 -348 Weight 183.433 kg Intake: IV 246 256 152 KVO 110 120 40 Piperacillin-Tazobactam 3 100 100 100 .375 gm In Sodium Chloride 0.9% 100 ml @ 25 mls/hr IVPB Q8HR [facility] Rx# :[id number] Pressure Bag 36 36 12 Tube Feeding 660 660 220 Other 90 90 30 Output: Urine 1635 1275 750 Other: Voiding Method Indwelling Catheter Indwelling Catheter Indwelling Catheter ABP, PAP, CO, CI - Last Documented Arterial Blood Pressure 134/78 - Exam GENERAL DESCRIPTION: Middle-age man intubated through the trach on the vent RESPIRATORY SYSTEM: Unlabored breathing , decreased breath sounds at bases HEART: S1 S2 regular rate and rhythm , ABDOMEN: Soft , mild distention EXTREMITIES: Right groin wound currently dressed - Labs CBC & Chem 7: 08/23/24 06:00 08/23/24 12:52 Labs: Abnormal Lab Results - Last 24 Hours (Table) 08/21/24 08/21/24 08/21/24 Range/Units 12:10 18:40 22:51 WBC (3.8-10.6) k/uL Hgb (13.0-17.5) gm/dL Hct (39.0-53.0) % MCV (80.0-100.0) fL MCH (25.0-35.0) pg MCHC (31.0-37.0) g/dL RDW (11.5-15.5) % ABG pH (7.35-7.45) ABG pCO2 (35-45) mmHg ABG pO2 (83-108) mmHg ABG HCO3 (21-25) mmol/L ABG Total CO2 (19-24) mmol/L Hemoglobin (13.0-17.5) gm/dL Potassium 3.4 L (3.5-5.1) mmol/L Chloride (98-107) mmol/L Carbon Dioxide (22-30) mmol/L BUN (9-20) mg/dL Glucose (74-99) mg/dL POC Glucose (mg/dL) 127 H 170 H (70-110) mg/dL 08/22/24 08/22/24 08/22/24 Range/Units 04:05 04:05 04:56 WBC 16.8 H (3.8-10.6) k/uL Hgb 10.4 L (13.0-17.5) gm/dL Hct 34.9 L (39.0-53.0) % MCV 76.1 L (80.0-100.0) fL MCH 22.7 L (25.0-35.0) pg MCHC 29.9 L (31.0-37.0) g/dL RDW 16.3 H (11.5-15.5) % ABG pH (7.35-7.45) ABG pCO2 (35-45) mmHg ABG pO2 (83-108) mmHg ABG HCO3 (21-25) mmol/L ABG Total CO2 (19-24) mmol/L Hemoglobin (13.0-17.5) gm/dL Potassium (3.5-5.1) mmol/L Chloride 95 L (98-107) mmol/L Carbon Dioxide 40 H (22-30) mmol/L BUN 69 H (9-20) mg/dL Glucose 201 H (74-99) mg/dL POC Glucose (mg/dL) 201 H (70-110) mg/dL 08/22/24 08/22/24 Range/Units 05:28 11:38 WBC (3.8-10.6) k/uL Hgb (13.0-17.5) gm/dL Hct (39.0-53.0) % MCV (80.0-100.0) fL MCH (25.0-35.0) pg MCHC (31.0-37.0) g/dL RDW (11.5-15.5) % ABG pH 7.50 H (7.35-7.45) ABG pCO2 49 H (35-45) mmHg ABG pO2 72 L (83-108) mmHg ABG HCO3 38 H (21-25) mmol/L ABG Total CO2 40 H (19-24) mmol/L Hemoglobin 10.9 L (13.0-17.5) gm/dL Potassium (3.5-5.1) mmol/L Chloride (98-107) mmol/L Carbon Dioxide (22-30) mmol/L BUN (9-20) mg/dL Glucose (74-99) mg/dL POC Glucose (mg/dL) 238 H (70-110) mg/dL Microbiology - Last 24 Hours (Table) 08/21/24 12:40 Gram Stain - Preliminary Neck 08/21/24 10:12 Gram Stain - Preliminary Sputum Assessment and Plan (1) Pneumonia Current Visit: Yes Status: Acute Code(s): J18.9 - PNEUMONIA, UNSPECIFIED ORGANISM SNOMED Code(s): 522974608 (2) COVID-19 Current Visit: Yes Status: Acute Code(s): U07.1 - COVID-19 SNOMED Code(s): 895769062 Plan: 1 patient right femoral central line has been discontinued catheter tip as well as local culture will continue current wound care with the [facility] and the patient will monitor closely off antibiotic therapy at this point 2patient with a low-grade fever worsening of the white count and also noticed to have a purulent drainage from his trach site which has been cultured Zosyn has been added will obtain a blood culture as well which are currently in progress patient white count is trending down we will continue Zosyn and monitor clinical course closely Dictation was produced using [employer] dictation software. please excuse any grammatical, word or spelling errors. Time with Patient: Less than 30
--- NOTE | 2024-08-23 14:44 | P.PN ---
Subjective Progress Note Date: 08/23/24 Principal diagnosis: Reason for follow-up is pneumonia Patient is a 63-year-old male with a past medical history significant for diabetes mellitus hypertension hyperlipidemia atrial fibrillation sleep apnea patient has been brought to the hospital in respiratory distress, patient noted to be at has been reviewed the ICU tested positive for COVID subsequently did have persistent fever and white count concerning for possible aspiration pneumonia prompting this consultation. On today's evaluation that is Patient is status post tracheostomy completed on 08/17/2024, attempted PEG tube placement which could not be placed because of morbid obesity and very thick abdominal wall. On today's evaluation that is 08/23/2024, Patient did have low-grade fever of 100.2 F at 4 AM patient has been afebrile since then patient remains to be intubated on through the trach with no further drainage reported requiring pressor support and no diarrhea. Patient white count normalized to 9.8, creatinine is 0.68 sputum is growing Pseudomonas culture on the neck is growing presumptive MRSA Objective - Vital Signs Vital signs: Vital Signs Temp 98.6 F 08/23/24 12:00 Pulse 72 08/23/24 12:00 Resp 14 08/23/24 12:00 BP 144/98 08/23/24 12:00 Pulse Ox 100 08/23/24 12:00 FiO2 50 08/23/24 12:00 Intake & Output 08/22/24 08/23/24 08/23/24 18:59 06:59 18:59 Intake Total 1188 1074 1010 Output Total 1575 1190 800 Balance -387 -116 210 Weight 183.433 kg 178.8 kg Intake: IV 243 269 655 KVO 110 130 40 Piperacillin-Tazobactam 3 100 100 100 .375 gm In Sodium Chloride 0.9% 100 ml @ 25 mls/hr IVPB Q8HR [facility] Rx# :[id number] Pressure Bag 33 39 15 Vancomycin 2,500 mg In 500 Sodium Chloride 0.9% 500 ml 500 ml @ 167 mls/hr IVPB ONCE ONE Rx#: [id number] Intake, IV Titration 250 Amount Amiodarone 450 mg In 250 Dextrose 5% in Water 250 ml @ 0.5 MG/MIN 16.667 mls/hr IV .Q15H [facility] Rx#: [id number] Tube Feeding 605 715 295 Other 90 90 60 Output: Urine 1575 1190 800 Other: Voiding Method Indwelling Catheter Indwelling Catheter Indwelling Catheter ABP, PAP, CO, CI - Last Documented Arterial Blood Pressure 126/76 - Exam GENERAL DESCRIPTION: Middle-age man intubated through the trach on the vent RESPIRATORY SYSTEM: Unlabored breathing , decreased breath sounds at bases HEART: S1 S2 regular rate and rhythm , ABDOMEN: Soft , mild distention EXTREMITIES: Right groin wound currently dressed - Labs CBC & Chem 7: 08/23/24 06:00 08/23/24 12:52 Labs: Abnormal Lab Results - Last 24 Hours (Table) 08/22/24 08/22/24 08/23/24 Range/Units 18:42 23:39 04:47 Hgb (13.0-17.5) gm/dL Hct (39.0-53.0) % MCV (80.0-100.0) fL MCH (25.0-35.0) pg MCHC (31.0-37.0) g/dL RDW (11.5-15.5) % Neutrophils # (1.3-7.7) k/uL Lymphocytes # (1.0-4.8) k/uL ABG pH 7.50 H (7.35-7.45) ABG pO2 75 L (83-108) mmHg ABG HCO3 33 H (21-25) mmol/L ABG Total CO2 34 H (19-24) mmol/L Hemoglobin 9.5 L (13.0-17.5) gm/dL Chloride (98-107) mmol/L Carbon Dioxide (22-30) mmol/L BUN (9-20) mg/dL Glucose (74-99) mg/dL POC Glucose (mg/dL) 187 H 233 H (70-110) mg/dL 08/23/24 08/23/24 08/23/24 Range/Units 04:55 06:00 06:00 Hgb 10.8 L (13.0-17.5) gm/dL Hct 38.6 L (39.0-53.0) % MCV 77.6 L (80.0-100.0) fL MCH 21.7 L (25.0-35.0) pg MCHC 28.0 L (31.0-37.0) g/dL RDW 16.3 H (11.5-15.5) % Neutrophils # 8.5 H (1.3-7.7) k/uL Lymphocytes # 0.6 L (1.0-4.8) k/uL ABG pH (7.35-7.45) ABG pO2 (83-108) mmHg ABG HCO3 (21-25) mmol/L ABG Total CO2 (19-24) mmol/L Hemoglobin (13.0-17.5) gm/dL Chloride 96 L (98-107) mmol/L Carbon Dioxide 38 H (22-30) mmol/L BUN 83 H (9-20) mg/dL Glucose 228 H (74-99) mg/dL POC Glucose (mg/dL) 217 H (70-110) mg/dL Microbiology - Last 24 Hours (Table) 08/21/24 16:47 Blood Culture - Preliminary Blood 08/21/24 23:45 Gram Stain - Preliminary Sputum 08/21/24 12:40 Gram Stain - Preliminary Neck Wound Culture - Preliminary Presumptive MRSA 08/21/24 10:12 Gram Stain - Preliminary Sputum Sputum Culture - Preliminary Gram Neg Bacilli Assessment and Plan (1) Pneumonia Current Visit: Yes Status: Acute Code(s): J18.9 - PNEUMONIA, UNSPECIFIED ORGANISM SNOMED Code(s): 628324437 (2) COVID-19 Current Visit: Yes Status: Acute Code(s): U07.1 - COVID-19 SNOMED Code(s): 108734954 Plan: 1 patient right femoral central line has been discontinued catheter tip as well as local culture [facility] and the patient will monitor closely off antibiotic therapy at this point 2patient with a low-grade fever worsening of the white count concerning for pneumonia as well as a trach site cellulitis, trach site culture growing MRSA vancomycin has been added sputum is growing gram-negative we will switch Zosyn to cefepime to decrease risk of nephrotoxicity and monitor clinical course closely Dictation was produced using [employer] dictation software. please excuse any grammatical, word or spelling errors. Time with Patient: Less than 30
[2024-08-23] MEDS: POTASSIUM CHLORIDE 10 MEQ in WATER FOR INJECTION 1 100ML.BAG IVPB SCH (14:47)
[2024-08-23] MEDS: CEFEPIME 2 GM in SODIUM CHLORIDE 0.9% 100 ML IVPB SCH (16:34)
[2024-08-23] MEDS: methylPREDNISolone SOD SUCCI 40 MG/ML 1 ML VIAL IV SCH (17:30)
[2024-08-23 18:05] LABS: Glucose,Whole Blood 281 mg/dL (70-110)
[2024-08-23] MEDS: VANCOMYCIN 2,500 MG in SODIUM CHLORIDE 0.9% 500 ML 500 ML IVPB SCH (19:50)
[2024-08-23 23:32] LABS: Glucose,Whole Blood 254 mg/dL (70-110)
[2024-08-24] MEDS ORDERED: bisacodyL 10 MG SUPP RECTAL PRN (04:22)
--- NOTE | 2024-08-24 04:31 | P.PN ---
Subjective Progress Note Date: 08/23/24 Patient in the intensive care unit currently intubated and sedated on the mechanical ventilator. Patient's chest x-ray today does reveal worsening CHF. He is significantly edematous. Remains sedated with IV fentanyl and propofol. He continues on IV Zosyn. Patient was started on enteral feedings today. blood sugars are elevated in the 200s. 08/07/2024 Patient was evaluated in follow-up in the medical floor he is currently intubated and sedated on the mechanical ventilator. Patient had gone into atrial fibrillation with rapid ventricular rate overnight requiring IV Cardizem. He has been since transition to oral metoprolol with heart rate better controlled today. He does have a noted history of atrial fibrillation was resumed on his oral Eliquis yesterday. Patient currently has LR running at 75 mL/h he does remain quite edematous mostly in his lower extremities. Patient was noted to have a small amount of yellow bile emesis there has been no residual with his tube feedings and they are continued at a slow rate today of 10 mL/h. He is febrile today temperature of 100.8. An abdominal x-ray was unable to be completed due to patient's body habitus and he is unable to be transported down for x-ray at this time. 08/08/2024 Patient is seen in follow-up in the ICU and overnight placed on mechanical ventilation as patient was noted to have what appeared to be seizure-like activity with no history of seizures and neurology was consulted. Patient was placed on mechanical ventilation currently with an FiO2 of 60% and PEEP is 10 with pulmonary appeals coordinator following. Patient remains with low-grade temps and also started on Keppra and is maintained on antibiotics. Cardiology following as well maintained on oral anticoagulation and has been having heart rates in the 40s. Continued on low-dose metoprolol and will continue to monitor closely. Per nursing staff patient also requiring low-dose Levophed and has been started on 40 of IV Lasix daily due to significant swelling. Will follow-up on repeat labs and continue to monitor closely. 08/09/2024 Patient is seen in follow-up with multiple consultations following including pulmonary, neurology, cardiology, and infectious disease consulted. Patient underwent EEG which was abnormal with no epileptiform discharges noted. Patient is continued on Keppra for now. Heart rates in the low 40s although per nursing staff slightly improved this afternoon and is being monitored closely with cardiology following. Patient is continued on Lasix for diuresis with significant volume overload. Wean pressors as tolerated and follow-up on repeat labs. Patient's blood sugars have been more elevated and possible steroid effect will increase long-acting and also Accu-Cheks before meals and at bedtime as well as sliding scale. Adjust accordingly. 08/10/2024 Patient is seen in follow-up today continues on mechanical ventilation in the ICU with an FiO2 of 80% and PEEP is 14. Undergoing sedation holidays and per nursing staff patient will open his eyes and attempt to track although not moving. Patient continues to be extremely edematous and is diuresing maintained on IV Lasix. Heart rates slightly improved and will continue current regimen per cardiology. No plans on extubation at this time. Per nursing staff patient has not had a bowel movement and is continued on bowel regimen. Abdomen is soft and there is positive bowel sounds noted. Patient continued on tube feeds. Highly recommend aspiration precautions and head of the bed elevated 30 to 45 degrees at all times. 08/12/2024 Patient is seen in follow-up today remains in the ICU with multiple consultations following. PEEP remains high at 16 with an FiO2 of 70% and per nursing staff has been having some desaturations and is being increased to 80% FiO2. Patient is maintained on metolazone along with IV Lasix and potassium borderline daily being replaced will add daily supplementation. Patient is having adequate diuresis and kidney functions are stable. Patient undergoing sedation holidays daily with no plans of weaning and extubation at this time. Patient is afebrile and maintained on IV Decadron along with Zosyn. Continue bowel regimen patient does have positive bowel sounds and is tolerating tube feeds at this time. Recommend aspiration precautions with head of the bed elevated 45 degrees at all times. 08/13/2024 Patient evaluated in the intensive care unit with multiple consultations following. Patient remains on the mechanical ventilator with a PEEP of 16 and FiO2 of 70%. Patient is appropriately arousable during sedation holidays. No plans for extubation at this time. Patient continues on IV Zosyn continues on IV Lasix IV Diamox and continues on oral zaroxolyn. Lower extremities remain significantly edematous. Patient is continued on enteral feedings now at goal running at 55 mL/h. Blood glucose has been elevated in the 200s. Chest x-ray today reveals a left-sided pleural effusion. 08/14/2024 Patient eval today in follow-up in the intensive care unit patient remains on mechanical ventilator, FiO2 down to 50%. Chest x-ray today reveals stable left lower lobe infiltrate and effusion. Patient remains on IV decadron daily. IV lasix 40 mg Q12 hour. Increased urine output over the last 24 hours. Lower extre mity edema has mildly improved. Bowels are moving. Patient is tolerating enteral feeding. IV zosyn has been discontinued. WBC 8.3, hgb 9.2, sodium 133, BUN 34, creatinine 0.90, magnesium 1.9. Patient evaluated today in follow up in the ICU. Vent settings were decreased yesterday to 50% FiO2 with a PEEP of 12, patient became increasingly hypoxic. Vent settings increased back up to 70% fio2 and PEEP of 16. Remains on IV decadron daily. Continues on IV lasix 40 mg Q12 hour as well as oral zaroxolyn. Chest xray today shows left perihilar infiltrate and small left pleural effusion. Patient remains on enteral feedings with Vital HP running at goal of 50 mls/hr and tolerating. Blood glucose remains elevated in the 200-300s. Labs revealing white blood cell count 7.2, hgb 9.5, sodium 132, BUN 38, creatinine 0.85. Procal 0.18. TSH 1.780. 08/16/2023 Patient evaluated today in the ICU. Remains on mechanical ventilator with PEEP of 70% FiO2 of 16. Chest xray today reveals mild right upper lobe infiltrate. Additional mild infiltrate may be at the left base. General surgery consulted f or tracheostomy and PEG tube placement. White blood cell count 8.7, hgb 9.9, sodium 132, potassium 4.5, BUN 42, creatinine 0.77. 08/17/2023 Was evaluated today in the intensive care unit. Patient remains on mechanical ventilator with an FiO2 of 60% and PEEP of 18. X-ray today reveals a mild garret hilar increased lung markings stable from comparison. Patient catheter tip are currently negative. His white blood blood count is normal at 8.5, hemoglobin 9.7, sodium 134, BUN of 47 and creatinine of 0.75. Is currently on IV Solu- Medrol 60 mg every 6 hours. He is sedated with propofol. He is on IV Keppra. He is currently off antibiotic at this time. 08/18/2023 Patient is status post tracheostomy placement continues on the mechanical ventilator, FiO2 of 50% and PEEP of 16. Patient continues to have evidence of altered mentation with EEG showing severe metabolic encephalopathy. Jerker planning to discontinue the propofol at this time to assess patient's mental status. He continues on IV Lasix with slight improvement on the chest x-ray today. The PEG tube was unable to be placed secondary to body habitus. Labs today reveal a white blood cell count 11.1, hemoglobin 10.3, sodium 134, potassium 3.2, BUN 53 creatinine of 0.80. 08/19/2024 Patient is seen in follow-up continues in the ICU status post tracheostomy placement currently off sedation and awake today opening eyes and eye tracking attempting to follow commands although is significantly weak. Patient continues on assist mode and FiO2 is 50% and PEEP was decreased to 12. Multiple consultations following including general surgery as they were unable to place a PEG tube and will continue with tube feeds via NG. Considering possible open gastrostomy tube given patient's body habitus. Patient is afebrile and being monitored with infectious disease following off antibiotic therapy. Patient also continues on IV diuresis and tolerating well. Patient being followed by pulmonary attempting to wean as tolerated and also maintained on steroids with mildly elevated blood sugars more so than normal in the 200s will slightly increase long-acting insulin and monitor closely. Follow-up with repeat labs. Case management also following in the event patient will require possible LTAC admission. 08/20/2024 Patient is evaluated today in follow up on the intensive care unit. Patient is status post tracheostomy placement. He remains off sedation. Eyes are opening to verbal stimulation and tracing and following simple commands he is significantly weak. He remains on the mechanical ventilator with FiO2 of 50% and PEEP of 10. He is being considered for trial of CPAP tomorrow. chest xray today reveals stable left lower lobe airspace disease stable support tubes and lines. Patient continues on IV lasix 40 mg every 12 hours. White blood cell count today 11.1, hgb 10.8, sodium 138, potassium 3.3, BUN 58, creatinine 0.66, magnesium 2.1. 08/21/2024 Patient seen in follow-up today continues to be in the ICU with multiple consultations following. Patient remains on tracheostomy and vent with an FiO2 of 50%. Patient is having some increase in white count up to 20 along with low- grade temps and is being reinitiated on antibiotics in the form of Zosyn with infectious disease following. Cardiology following as well and patient is being placed on amiodarone drip. General surgery following status post via tracheostomy and there is some bleeding noted on the tracheostomy site and suture being replaced. Continue head of the bed elevated 35 to 45 degrees at all times and strict aspiration precautions. General surgery following for possible G-tube as well. PEG tube was unsuccessful. 08/22/2024 Patient is seen in follow-up today sitting up in the bed had some continued bleeding around the tracheostomy site and anticoagulation remains on hold and patient with surgery following placed a suture and is continued on packing exchanges around the site. Patient also continues on tube feeds via NG tube with general surgery following discussing possible GE tube with open surgery sometime this week. Hemoglobin is stable above 10 and will monitor closely. Patient is currently on CPAP mode with an FiO2 of 50% and PEEP is 5. Medications being adjusted per cardiology as patient was continued on amiodarone drip. 08/23/2024 Patient is seen and evaluated in follow-up today continues to be in the ICU with multiple consultations following. Patient will be undergoing PEG or G-tube placement with general surgery on 08/24/2024. Patient tolerating tube feeds via NG tube at this time. Cultures are pending of sputum and blood and infectious disease following and patient is maintained on vancomycin along with cefepime and will continue while awaiting finalized cultures. Mild bleeding has seemed to stop around the tracheostomy and has been ongoing trials of CPAP. Plan will be for possible LTAC after patient receives PEG tube placement. Case management is following. Unable to complete review of systems as patient is currently intubated. Patient does eye track and follow commands PHYSICAL EXAMINATION: GENERAL: The patient is intubated and awake . Fatigues easily although does respond to name and eye tracking and blinking eyes. Patient is following some commands. Significantly weak. He is morbidly obese, well-developed, elderly appearing, extremely edematous of upper and lower extremities and body habitus, ill-appearing. FiO2 is currently 50% with a PEEP of 5 HEENT: Pupils are round and equally reacting to light. EOMI. No scleral icterus. No conjunctival pallor. Normocephalic, atraumatic. No pharyngeal erythema. No thyromegaly. Bleeding noted around the tracheostomy site and dressings being changed, suture was applied per surgery CARDIOVASCULAR: S1 and S2 muffled, irregular PULMONARY: Diminished breath sounds bilaterally otherwise chest is clear to auscultation, no wheezing , no crackles. ABDOMEN: Soft, obese, nontender, nondistended, normoactive bowel sounds. No palpable organomegaly. Kelly catheter in place MUSCULOSKELETAL: No joint swelling or deformity. EXTREMITIES: No cyanosis, clubbing, continues with significant lower extremity edema bilaterally pitting right lower leg superficial wound is improved with no significant redness and some mild flaking of the skin noted NEUROLOGICAL: Awake although fatigues easily, eye-opening and responding to name , tracking, attempting to follow simple commands extremely weak SKIN: No rashes. no petechiae. Assessment: Acute hypoxic respiratory failure requiring intubation on admission, currently on mechanical ventilation, FiO2 is 50% with PEEP of 5. Status post tracheostomy on 08/17/2024 COVID infection and possible pneumonia, concerns for aspiration pneumonia Leukocytosis with low-grade temps, repeat cultures obtained along with sputum pending preliminary showing MRSA and gram-negative bacilli Possible seizure like activity, new onset, EEG was abnormal although not showing any epileptiform discharges, continued on Keppra for now with neurology following Possible acute COPD exacerbation versus obesity hypoventilation syndrome Possible bacterial pneumonia, healthcare associated with right upper lobe and left lower lobe infiltrates, ruled out, white count is normal and patient is off antibiotics, cultures are negative Severe sepsis requiring pressor support Acute on chronic diastolic heart failure with preserved EF A-fib and RVR, present on admission with slow ventricular rate dropping into the 30s. Currently rate controlled Right leg wound with recent cultures showing enterococcus faecalis, ESBL and Providencia Rettgeri Diabetes Mellitus type 2, uncontrolled with hyperglycemia Steroid induced hyperglycemia Morbid obesity with a BMI of 64.2 Chronic anemia Lactic acidemia/acidosis, improved GI prophylaxis DVT prophylaxis Full Code Plan: Patient is continued on antibiotic in the form of cefepime and vancomycin with infectious disease following. Currently awaiting repeat sputum and blood cultures. Blood cultures thus far remain negative. Mechanical ventilator per appeals coordinator. Working on weaning trials and CPAP. Patient is status post tracheostomy on 08/17/2024. Currently on CPAP mode Continue enteral feedings, tube feeds were resumed and tolerating thus far.. Continue with aspiration precautions and head of the bed elevated 45 degrees at all times and monitor closely for residuals. General surgery to place feeding tube on 08/24/2024. Continue bowel regimen and also daily suppositories as needed. Patient does not have history of seizures and was started on Keppra and neurology following underwent EEG which was abnormal although not showing any epileptiform discharges. No further seizure-like activity noted. Neurology following as needed Per pulmonary appeals coordinator patient is continued on IV Lasix every 12 hours. And will continue to monitor kidney functions closely. Replace electrolytes per protocol. Daily supplementation of potassium ordered Patient having some continued bleeding at the tracheostomy site requiring a suture with general surgery and anticoagulation has been placed on hold due to increased bleeding. Dressing changes being changed. Hemoglobin is stable above 10. Per cardiology consider resuming Eliquis after tube placement. Continue with Accu-Cheks [id number] sliding scale along with long-acting. Levemir will be slightly increased to 60 units SQ BID and also continue novolog scale which has been adjusted to high dose He is continued on IV Solu-Medrol Repeat blood work in the AM Overall prognosis is guarded and CODE STATUS needs to be addressed. Case management following in the event patient may require possible LTAC. Pulm onary appeals coordinator planning on weaning as tolerated and was able to decrease the rate of PEEP to 5 and is continued at 50% FiO2 and also undergoing CPAP trials. Mentation is improving and patient is maintained off all sedation. Patient is significantly weak and has had prolonged hospitalization. Patient will require extensive physical rehab as well as tracheostomy care. Awaiting to have G-tube insertion and will continue with NG tube for now. Continue with aspiration precautions. CODE STATUS remains full code at this time The impression and plan of care has been dictated by Jocy Randle, Nurse Practitioner as directed. Dr. Crow MD I have performed a history and physical examination and medical decision making of this patient, discussed the same with the dictator, and agree with the dictators assessment and plan as written, documented as a scribe. Based on total visit time, I have performed more than 50% of this visit. Objective - Vital Signs Vital signs: Vital Signs Temp 98.0 F 08/23/24 08:00 Pulse 104 H 08/23/24 10:00 Resp 14 08/23/24 10:00 BP 112/79 08/21/24 15:00 Pulse Ox 100 08/23/24 10:00 FiO2 50 08/23/24 08:23 Intake & Output 08/22/24 08/23/24 08/23/24 18:59 06:59 18:59 Intake Total 1188 1074 324 Output Total 1575 1190 550 Balance -387 -116 -226 Weight 183.433 kg 178.8 kg Intake: IV 243 269 129 KVO 110 130 20 Piperacillin-Tazobactam 3 100 100 100 .375 gm In Sodium Chloride 0.9% 100 ml @ 25 mls/hr IVPB Q8HR F[facility] Rx# :[id number] Pressure Bag 33 39 9 Intake, IV Titration 250 Amount Amiodarone 450 mg In 250 Dextrose 5% in Water 250 ml @ 0.5 MG/MIN 16.667 mls/hr IV .Q15H FABIENNE Rx#: [id number] Tube Feeding 605 715 165 Other 90 90 30 Output: Urine 1575 1190 550 Other: Voiding Method Indwelling Catheter Indwelling Catheter Indwelling Catheter ABP, PAP, CO, CI - Last Documented Arterial Blood Pressure 181/99 - Labs CBC & Chem 7: 08/23/24 06:00 08/23/24 12:52 Labs: Abnormal Lab Results - Last 24 Hours (Table) 08/22/24 08/22/24 08/22/24 Range/Units 11:38 18:42 23:39 Hgb (13.0-17.5) gm/dL Hct (39.0-53.0) % MCV (80.0-100.0) fL MCH (25.0-35.0) pg MCHC (31.0-37.0) g/dL RDW (11.5-15.5) % Neutrophils # (1.3-7.7) k/uL Lymphocytes # (1.0-4.8) k/uL ABG pH (7.35-7.45) ABG pO2 (83-108) mmHg ABG HCO3 (21-25) mmol/L ABG Total CO2 (19-24) mmol/L Hemoglobin (13.0-17.5) gm/dL Chloride (98-107) mmol/L Carbon Dioxide (22-30) mmol/L BUN (9-20) mg/dL Glucose (74-99) mg/dL POC Glucose (mg/dL) 238 H 187 H 233 H (70-110) mg/dL 08/23/24 08/23/24 08/23/24 Range/Units 04:47 04:55 06:00 Hgb 10.8 L (13.0-17.5) gm/dL Hct 38.6 L (39.0-53.0) % MCV 77.6 L (80.0-100.0) fL MCH 21.7 L (25.0-35.0) pg MCHC 28.0 L (31.0-37.0) g/dL RDW 16.3 H (11.5-15.5) % Neutrophils # 8.5 H (1.3-7.7) k/uL Lymphocytes # 0.6 L (1.0-4.8) k/uL ABG pH 7.50 H (7.35-7.45) ABG pO2 75 L (83-108) mmHg ABG HCO3 33 H (21-25) mmol/L ABG Total CO2 34 H (19-24) mmol/L Hemoglobin 9.5 L (13.0-17.5) gm/dL Chloride (98-107) mmol/L Carbon Dioxide (22-30) mmol/L BUN (9-20) mg/dL Glucose (74-99) mg/dL POC Glucose (mg/dL) 217 H (70-110) mg/dL 08/23/24 Range/Units 06:00 Hgb (13.0-17.5) gm/dL Hct (39.0-53.0) % MCV (80.0-100.0) fL MCH (25.0-35.0) pg MCHC (31.0-37.0) g/dL RDW (11.5-15.5) % Neutrophils # (1.3-7.7) k/uL Lymphocytes # (1.0-4.8) k/uL ABG pH (7.35-7.45) ABG pO2 (83-108) mmHg ABG HCO3 (21-25) mmol/L ABG Total CO2 (19-24) mmol/L Hemoglobin (13.0-17.5) gm/dL Chloride 96 L (98-107) mmol/L Carbon Dioxide 38 H (22-30) mmol/L BUN 83 H (9-20) mg/dL Glucose 228 H (74-99) mg/dL POC Glucose (mg/dL) (70-110) mg/dL Microbiology - Last 24 Hours (Table) 08/21/24 16:47 Blood Culture - Preliminary Blood 08/21/24 23:45 Gram Stain - Preliminary Sputum 08/21/24 12:40 Gram Stain - Preliminary Neck Wound Culture - Preliminary Presumptive MRSA 08/21/24 10:12 Gram Stain - Preliminary Sputum Sputum Culture - Preliminary Gram Neg Bacilli
[2024-08-24 06:06] LABS: Glucose,Whole Blood 177 mg/dL (70-110)
[2024-08-24 06:21] LABS: Anisocytosis Slight; Basophils % (A) 0 %; Eosinophils % (A) 0 %; HCT 38.7 % (39.0-53.0); HGB 11.4 gm/dL (13.0-17.5); Hypochromasia Marked; Lymphocytes # (A) 1.2 k/uL (1.0-4.8); Lymphocytes % (A) 10 %; MCH 22.8 pg (25.0-35.0); MCHC 29.4 g/dL (31.0-37.0); MCV 77.6 fL (80.0-100.0); Mean Platelet Volume 8.1; Microcytosis Slight; Monocytes # (A) 0.9 k/uL (0-1.0); Monocytes % (A) 8 %; Neutrophils # (A) 9.6 k/uL (1.3-7.7); Neutrophils % (A) 81 %; Platelet Count 431 k/uL (150-450); RBC 4.98 m/uL (4.30-5.90); RDW 16.1 % (11.5-15.5); WBC 11.9 k/uL (3.8-10.6)
[2024-08-24 06:45] LABS: African American GFR (CKD) >90 (>60 ml/min/1.73 sqM); Anion Gap 6 mmol/L; Blood Urea Nitrogen 69 mg/dL (9-20); Calcium 9.7 mg/dL (8.4-10.2); Carbon Dioxide 39 mmol/L (22-30); Chloride 102 mmol/L (98-107); Glucose 183 mg/dL (74-99); Non-African American GFR(CKD) >90 (>60 ml/min/1.73 sqM); Potassium 3.8 mmol/L (3.5-5.1); Sodium 147 mmol/L (137-145)
[2024-08-24 07:49] LABS: ABG HCO3 37 mmol/L (21-25); ABG Oxygen Saturation >100.0 % (94-97); ABG PCO2 36 mmHg (35-45); ABG PO2 146 mmHg (83-108); ABG TCO2 38 mmol/L (19-24); Allen Test Performed? Yes
--- NOTE | 2024-08-24 07:55 | XR ---
EXAMINATION TYPE: XR chest 1V portable DATE OF EXAM: 08/24/2024 CLINICAL HISTORY: Difficulty breathing progress study. TECHNIQUE: Single AP portable semiupright view of the chest is obtained. COMPARISON: Chest x-ray from one day earlier and old studies FINDINGS: Stable tracheostomy and orogastric tubes. Stable left-sided PICC line. Persistent bibasilar increased opacities improved on the left but worsened on the right. Heart size u pper limits of normal. Old healed fractures of the posterior-lateral left fifth through seventh ribs are redemonstrated. IMPRESSION: Persistent bibasilar acute infiltrates and/or atelectasis with improvement on the left bu t worsening on the right noted. [facility], , 08/24/2024 7:52 AM
[2024-08-24 07:57] LABS: ABG PH 7.62 (7.35-7.45)
[2024-08-24] MEDS: POTASSIUM CHLORIDE 10 MEQ in WATER FOR INJECTION 1 100ML.BAG IVPB SCH (09:09)
[2024-08-24] MEDS: METOPROLOL TARTRATE 5 MG/5 ML VIAL IVP SCH ×2 (10:01→17:31)
--- NOTE | 2024-08-24 11:00 | P.PN ---
Subjective Progress Note Date: 08/24/24 SURGICAL PROGRESS NOTE CHIEF COMPLAINT: Respiratory failure HISTORY OF PRESENT ILLNESS: Patient remains in the ICU and on the vent. He is status post tracheostomy placement on 08/17/2024. Bandage around the tracheostomy changed yesterday. Per nursing staff there is just a small amount of blood noted on dressing this morning. The new dressing is currently clean dry and intact. Patient scheduled for open gastrostomy tube placement today. Tube feeds currently on hold. NG tube came out accidentally. Afebrile. Mild tachycardia. WBC 11.9 Hgb 11.4 platelets 431 PHYSICAL EXAM: VITAL SIGNS: Reviewed. GENERAL: no acute distress. HEENT: Tracheostomy site no active bleeding. Dressing clean dry and intact ABDOMEN: Soft. Obese. Nondistended. Nontender. ASSESSMENT: 1. Acute hypoxic respiratory failure unable to wean from vent status post tracheostomy placement 2. Severe protein calorie malnutrition PLAN: -Patient scheduled for open gastrostomy tube placement today with Dr. Chowdhury -Continue to monitor tracheostomy site -Continue to hold Lovenox Physician [employer] note has been reviewed by physician. Signing provider agrees with the documented findings, assessment, and plan of care. Objective - Vital Signs Vital signs: Vital Signs Temp 98.9 F 08/24/24 08:00 Pulse 92 08/24/24 10:00 Resp 17 08/24/24 10:00 BP 153/102 08/24/24 10:00 Pulse Ox 100 08/24/24 10:00 FiO2 50 08/24/24 08:50 Intake & Output 08/23/24 08/24/24 08/24/24 18:59 06:59 18:59 Intake Total 1859 1075 740 Output Total 1425 780 305 Balance 434 295 435 Weight 182 kg Intake: IV 1084 720 740 Cefepime 2 gm In Sodium 100 100 100 Chloride 0.9% 100 ml @ 25 mls/hr IVPB Q8HR [facility] Rx# :[id number] KVO 60 120 40 Piperacillin-Tazobactam 3 100 .375 gm In Sodium Chloride 0.9% 100 ml @ 25 mls/hr IVPB Q8HR [facility]IEN[facility] Rx# :[id number] Potassium Chloride 10 meq 300 100 In Water For Injection 1 100ml.bag @ 100 mls/hr IVPB Q1H [facility] Rx#: [id number] Pressure Bag 24 Vancomycin 2,500 mg In 500 500 500 Sodium Chloride 0.9% 500 ml 500 ml @ 167 mls/hr IVPB ONCE ONE Rx#: [id number] Tube Feeding 685 325 Other 90 30 Output: Urine 1425 780 305 Other: Voiding Method Indwelling Catheter Indwelling Catheter Indwelling Catheter ABP, PAP, CO, CI - Last Documented Arterial Blood Pressure 126/76 - Labs CBC & Chem 7: 08/24/24 05:17 08/24/24 05:17 Labs: Abnormal Lab Results - Last 24 Hours (Table) 08/23/24 08/23/24 08/23/24 Range/Units 12:25 18:03 23:30 WBC (3.8-10.6) k/uL Hgb (13.0-17.5) gm/dL Hct (39.0-53.0) % MCV (80.0-100.0) fL MCH (25.0-35.0) pg MCHC (31.0-37.0) g/dL RDW (11.5-15.5) % Neutrophils # (1.3-7.7) k/uL ABG pH (7.35-7.45) ABG pO2 (83-108) mmHg ABG HCO3 (21-25) mmol/L ABG Total CO2 (19-24) mmol/L ABG O2 Saturation (94-97) % Hemoglobin (13.0-17.5) gm/dL Sodium (137-145) mmol/L Carbon Dioxide (22-30) mmol/L BUN (9-20) mg/dL Glucose (74-99) mg/dL POC Glucose (mg/dL) 228 H 281 H 254 H (70-110) mg/dL 08/24/24 08/24/24 08/24/24 Range/Units 05:02 05:17 05:17 WBC 11.9 H (3.8-10.6) k/uL Hgb 11.4 L (13.0-17.5) gm/dL Hct 38.7 L (39.0-53.0) % MCV 77.6 L (80.0-100.0) fL MCH 22.8 L (25.0-35.0) pg MCHC 29.4 L (31.0-37.0) g/dL RDW 16.1 H (11.5-15.5) % Neutrophils # 9.6 H (1.3-7.7) k/uL ABG pH 7.62 H* (7.35-7.45) ABG pO2 146 H (83-108) mmHg ABG HCO3 37 H (21-25) mmol/L ABG Total CO2 38 H (19-24) mmol/L ABG O2 Saturation >100.0 H (94-97) % Hemoglobin 11.4 L (13.0-17.5) gm/dL Sodium 147 H (137-145) mmol/L Carbon Dioxide 39 H (22-30) mmol/L BUN 69 H (9-20) mg/dL Glucose 183 H (74-99) mg/dL POC Glucose (mg/dL) (70-110) mg/dL 08/24/24 Range/Units 06:04 WBC (3.8-10.6) k/uL Hgb (13.0-17.5) gm/dL Hct (39.0-53.0) % MCV (80.0-100.0) fL MCH (25.0-35.0) pg MCHC (31.0-37.0) g/dL RDW (11.5-15.5) % Neutrophils # (1.3-7.7) k/uL ABG pH (7.35-7.45) ABG pO2 (83-108) mmHg ABG HCO3 (21-25) mmol/L ABG Total CO2 (19-24) mmol/L ABG O2 Saturation (94-97) % Hemoglobin (13.0-17.5) gm/dL Sodium (137-145) mmol/L Carbon Dioxide (22-30) mmol/L BUN (9-20) mg/dL Glucose (74-99) mg/dL POC Glucose (mg/dL) 177 H (70-110) mg/dL Microbiology - Last 24 Hours (Table) 08/21/24 10:12 Gram Stain - Preliminary Sputum Sputum Culture - Preliminary Pseudomonas aeruginosa Methicillin resist S. aureus 08/21/24 23:45 Gram Stain - Final Sputum Sputum Culture - Final Pseudomonas aeruginosa 08/21/24 16:47 Blood Culture - Preliminary Blood 08/21/24 12:40 Anaerobic Culture - Preliminary Neck 08/21/24 12:40 Gram Stain - Preliminary Neck Wound Culture - Preliminary Methicillin resist S. aureus
--- NOTE | 2024-08-24 11:01 | P.PN ---
Subjective Progress Note Date: 08/24/24 Acute hypoxic respiratory failure, multifactorial On 08/08/2024, the patient is being seen in follow-up in the intensive care unit. This is a morbidly obese 63-year-old male patient who is currently intubated on the mechanical ventilator. Initially presented to us on 08/05/2024 for respiratory distress and the patient became unresponsive. He is known to have morbid obesity, COPD, chronic A-fib, CVA, hypertension hyperlipidemia. He resides in a [facility] and the patient was found to be unresponsive and not breathing properly. His pulse ox was also very low and the patient was hypotensive and minimally responsive. He came into the emergency department where he was intubated and placed on the mechanical ventilator. Since admission, the patient was found to be COVID-19 positive. He had a follow-up chest x-ray today that shows significant rotation, ET tube is probably 1 cm above the damian and there is evidence of left lower lobe consolidation/effusion. Noted at the time of admission, he had also a right upper lobe consolidation in addition to left lower lobe consolidation. Sputum samples have been negative as collected on 08/05/2024 and blood cultures been also negative. No significant leukocytosis. The patient is currently on no antibiotics. The patient is on propofol which is running at 30 mcg/kg/min, and is also on fentanyl at 1 mcg/kg/h.. The patient is on assist-control mode of mechanical ventilation at rate of 20, tidal volume of 500, FiO2 of 60 % with a PEEP of 10. Blood gases from today shows a pH of 7.46 with a pCO2 of 51 and pO2 of 69 and this was an FiO2 of 60%. The patient is on lactated Ringer at rate of 75 cc an hour. The patient receiving vital high-protein at rate of 55 cc an hour. He remains in atrial fibrillation with rapid ventricular response. He is off Cardizem drip . He is also on metoprolol 12.5 mg twice a day and anticoagulation with Eliquis 5 mg p.o. twice a day. He is on Levemir insulin 15 units at bedtime. Earlier this morning, the patient noted to have episodic generalized tonic-clonic seizure-like activity. The patient was kept on propofol. He was given Ativan 2 mg IV push x 2 and started on Keppra. CAT scan of the brain is to follow. EEG is to follow. Neurology consultation is to follow. The patient is on lactated Ringer at rate of 75 cc an hour. Norepinephrine was also started this morning and is currently running at 0.03 mcg/kg/min. He is on EN , vital HP at 35 cc/hr On 08/09/2024, the patient is being seen for a follow-up. The patient remains intubated on the mechanical ventilator. This morning, the patient is on propofol which is running at 15 mcg/kg/min. Noted the propofol rate was gradually reduced as of yesterday and the fentanyl has been discontinued. Overnight, the patient continued to have bradycardic events and the heart rate was dropping as low as in the 40s and the rhythm remains atrial fibrillation. The patient was taken off the beta-blockers. The patient this morning is on assist-control mode of mechanical ventilation at rate of 20, tidal volume of 500, FiO2 of 60% with a PEEP of 5. Blood gas showed a pH of 7.51 with a pCO2 of 43 and pO2 of 64. Chest x-ray showing bilateral airspace disease, worse on the right essentially involving the lung bases. The patient is currently on no pressors. The patient remains on vital high-protein at rate of 45 cc an hour. No further seizure activity has been noted. The patient remains on IV Keppra. EEG showed encephalopathy without any seizure activity. Neurology on the case. The patient remains on IV Zosyn. The patient continues to have significant amount of edema in all 4 extremities and the patient remains on IV Lasix 40 mg every 12 hours. Fluid balance is +180 cc over the past 24 hours. Repeat cultures were sent and the results are still pending. The patient remains on anticoagulation with Eliquis regarding chronic atrial fibrillation. Cardizem drip is off. Metoprolol is currently on hold. On 08/10/2024, the patient is being seen for a follow-up. This morning, the patient is on propofol running at 20 mcg/kg/min. Remains deeply sedated. He is morbidly obese and he remains on the mechanical ventilator due to hypoxic/hypercapnic respiratory failure. This morning, he is on assist-control mode with rate of 20, tidal volume of 500, FiO2 is at 80% with a PEEP of 14. pH is 7.47 with a pCO2 of 44 and pO2 of 67. Chest x-ray shows bilateral pleural effusions and an area of dense consolidation in left upper lobe. There are signs of fluid overload as the patient continues to have extensive edema in all 4 extremities. He is on IV Lasix. Fluid balance is -1.5 L over the past 24 hours. The patient remains on IV Zosyn as an empiric antibiotic coverage. No pressors. No seizure activity and the patient remains on IV Keppra. EEG showed no evidence of any ongoing seizure activity. Remains on vital high-protein at rate of 45 cc an hour and the patient is on Levemir insulin 15 units twice a day. Blood work showed a white cell count of 6.8 with a hemoglobin 9.3 and a platelet count of 310. Sodium level is at 137, BUN is 25 with a creatinine of 0.8 and a potassium level is at 3.8. Procalcitonin level is at 0.48. The patient is afebrile. Hemodynamically, he is in low rate atrial fibrillation. Remains on anticoagulation with Eliquis. On 08/11/2024, the patient is being seen for a follow-up. The patient remains on propofol running at 20 mcg/kg/min. Sedation holiday was done today and the patient was arousable and he was able to follow simple commands. Nevertheless, is not ready for weaning with extubation he was placed back on propofol. At the same time, the patient is on assist-control mode of mechanical ventilation at a rate of 20, tidal volume of 500, FiO2 of 100% with a PEEP of 16. Noted his oxygenation got worse overnight and the patient was placed on 100% FiO2. Current pulse ox is 97%. She has been gradually been his FiO2. The blood gases showed a pH of 7.49 with a pCO2 of 51 and pO2 of 76. The patient is currently on Lasix 40 mg IV every 8 hours and Zaroxolyn 5 mg p.o. twice a day. The net fluid balance is -4.8 L over the past 24 hours. Continues to have evidence of bilateral pleural effusion and extensive pulmonary edema in addition to extensive swelling in the upper and lower extremities bilaterally. He is on Levemir insulin 15 units twice daily. He is on vital high-protein at rate of 45 cc an hour. No seizure activity has been noted. Remains on IV Zosyn. Afebrile. Hemodynamically stable. The white cell count is 6.8 with a hemoglobin 8.7 and a platelet count of 333. The sodium levels at 136, bicarb levels at 34, potassium is at 3.9, BUN is 27 with a creatinine of 0.7. No other significant events overnight. On 08/12/2024, patient remains intubated on mechanical ventilator. The patient is in a significant negative fluid balance and the patient is being diuresed with a combination of Lasix and Zaroxolyn. Fluid balance has been -4 L over the past 24 hours. The patient remains on Lasix 40 mg IV every 8 hours and Zaroxolyn 5 mg p.o. twice a day. The patient's follow-up chest x-ray from today shows improved aeration in the lungs. There is cardiomegaly. There is continued pulmonary edema and bilateral pleural effusions. Tube remains in good location. He is on assist-control mode of mechanical ventilation at rate of 20, tidal volume of 500, FiO2 of 70% with a PEEP of 16. Blood gas showed a pH of 7.54 with pCO2 48 and pO2 of 69. Remains on low rate atrial fibrillation and rate is controlled. Remains on vital high-protein at rate of 48 cc an hour. The white cell count is at 8 with a hemoglobin 8.9 and platelet count of 418. Sodium is at 135, BUN 33 with a creatinine of 0.6. Bicarbonate level is at 35. Afebrile. No other significant events overnight. Was given a sedation holiday and the patient's mentation was appropriate. Based on that, the patient was placed back on propofol which is running at 15 mcg/kg/min. On 08/13/2024, the patient remains intubated on the mechanical ventilator. Unfortunately, oxygenation remains unchanged despite excellent diuresis that the patient has achieved over the past 48 hours. For now, the patient is still on mechanical ventilator. Sedated with propofol running at 50 mcg/kg/min. He is on assist-control mode with rate of 20, tidal volume of 500, FiO2 of 80% with a PEEP of 16. The blood gas showed a pH of 7.56 with a pCO2 of 46 and pO2 of 101. Fluid balance is -4.8 L over the past 24 hours. The patient is afebrile., Comfortable. Hemodynamically stable on no pressors. White cell count of 9.1 with a hemoglobin 9.8 and a platelet count of 461. BUN 34 with a creatinine of 0.7 and sodium level of 134. Follow-up chest x-ray was done today and it shows left-sided pleural effusion, improvement in the volume status. ET tube remains in good location. The patient remains on anticoagulation with Eliquis regarding a low rate controlled atrial fibrillation. The patient remains on Eliquis 5 mg p.o. twice a day. The patient remains on Levemir insulin 20 units twice daily and sliding scale insulin coverage. The patient remains on empiric antibiotic coverage with IV Zosyn. On 08/14/2024, the patient remains on the mechanical ventilator on propofol runni ng at 50 mcg/kg/min. Remains on Lasix and Zaroxolyn. Fluid balance is -5.9 L over the past 24 hours and over the past 72 hours, the patient has been at least 19 L negative fluid balance. The ventilator settings are essentially unchanged. The patient remains on assist-control mode on mechanical ventilation at a rate of 20, tidal volume of 500, FiO2 of 70% with a PEEP of 16. Morning blood gas s howed a pH of 7.52 with a pCO2 of 44 and pO2 of 86. The patient is on Levemir insulin 25 units twice daily. The patient is on vital high-protein. The patient remains on Levemir insulin for blood sugar control and the patient is currently on 25 units twice a day with adequate blood sugar control. Labs from today show a white cell count of 8, hemoglobin of 9.2 and a platelet count of 474. Sodium levels at 133, K is at 3.3, bicarb is at 40, BUN 34 with a creatinine of 0.9. The patient remains on IV Zosyn. Patient was seen today on 08/15/2024, remains in the ICU, intubated and mechanically ventilated, on assist-control rate of 20 tidal volume 500 FiO2 50% PEEP of 12 his ABG is marginal with a pO2 of 72 pCO2 of 45 pH of 7.45, hence no plans to lower down the PEEP from 12 although it was 16 yesterday. Patient remains on propofol 25 mcg/kg/min he is also on vital HP at 55 cc/h cultures h ave been negative procalcitonin 0.18 patient is arousable, follows simple instructions, however he is not quite ready for weaning. In addition to his multiple medical problems, patient has COVID-19 pneumonia, chest x-ray continues to show evidence of bilateral bibasilar and midlung infiltrates, small left pleural effusion is also noted WBC count is 7.2 hemoglobin 9.5 ABG as noted earlier, Basic metabolic profile is normal bicarb is 36 BUN 38 creatinine 0.85 patient was seen today on 08/16/2024, patient remains in the ICU, bated and mechanically ventilated, he is on assist-control rate of 20 tidal volume 500 FiO2 70% PEEP was 12 and increased to 18 as his ABG showed a pO2 of 74 pCO2 52 pH of 7.43 and that was on 70% and PEEP of 12 patient had endotracheal tube changed today done at bedside, and post intubation his O2 saturation remained in the 80s/85%, follow-up ABG showed a pO2 of 54 pCO2 of 52 pH of 7.42 hence the PEEP was increased to 18 and his FiO2 was increased to 100%. Patient had a chest x-ray that showed some interstitial changes and findings of interstitial edema or interstitial infiltrates, Lasix was given at 40 mg IV push. Patient remains on propofol at 45 vital at 50 mL/h, patient had a PICC line placed on 08/15, and today I changed his endotracheal tube because of malfunctioning of his old endotracheal tube and kept popping off and getting disconnected. His Dec adron was changed to Solu-Medrol 60 mg IV push every 6 hours, and looking at the overall picture, patient is not showing significant improvement in the last 10 days and I am recommending surgical evaluation for possible tracheostomy, and PEG tube placement, and eventually may require placement in [facility]. WBC count today is 8.7 hemoglobin 9.9 ABG as noted earlier electrolytes showed low potassium of 3.1, BUN of 42 creatinine 0.77 Patient was seen today on 08/17/2024, remains in the ICU, intubated and mechanically ventilated, patient is on assist-control rate of 20 tidal volume 5 00 FiO2 70% and I cut it down to 50% is PEEP remains 18 ABG today on 70% showed a pO2 of 113 pCO2 43 pH of 7.50. Will try to cut down the FiO2 to 50% and keep PEEP for now at 18 however the patient continues to maintain adequate O2 saturation may cut down the PEEP down to 16. Chest x-ray shows slight improvement compared to yesterday however patient is on a higher PEEP which may be misleading. Patient remains on propofol at 15 mg/kg/min vital HP at 50 cc/h. Patient is on Lasix 40 mg IV push twice daily remains on Eliquis. Off antibiotics, Remains on GI and DVT prophylaxis and mostly diuretics. Procalcitonin level came down to 0.18 hence will not restart antibiotics at this point. Sputum cultures are pending Seen today on 08/18/2024, patient remains in the ICU, intubated and mechanically ventilated, underwent uneventful tracheostomy yesterday, however a PEG tube could not be placed mostly because of his body habitus, surgery will consider open method for placement of the gastrostomy or jejunostomy tube down the line if felt to be necessary next week. In the meantime the patient is intubated mechanically ventilated he is on assist-control rate of 20 tidal volume 500 FiO2 50% PEEP of 16 I cut it down to 14, ABG showed a pO2 of 77 pCO2 41 pH of 7.52 EEG showed severe metabolic encephalopathy patient remains on propofol at 15 mcg/kg/min which I have discontinued today to fully assess mental status off sedation completely remains on enteral feeding patient is receiving tube feeding via nasogastric tube, patient is status post tracheostomy on 08/17/2024 remains on Eliquis remains on Lasix chest x-ray showing slight improvement but again patient is on relatively high PEEP. WBC count is 11.1 hemoglobin 10.3 platelets 512, basic metabolic profile is normal except for low potassium of 3.2 BUN is 53 creatinine 0.8. Patient was seen today on 08/19/2024, patient remains in the ICU, intubated and mechanically ventilated, he is on assist-control rate of 20 tidal volume 500 FiO2 50% PEEP 14 on the current down to 12 ABG showed a pO2 of 100 pCO2 44 pH of 7.50 patient remains on IV fluid at KVO 0.9 normal saline he is receiving vital HP at 50 cc/h his sputum cultures came back negative patient remains off antibiotics chest x-ray continues show a left lower lobe opacity and atelectasis, doubt pneumonia considering his procalcitonin level was normal and sputum was negative patient was on Zosyn which I have discontinued few days ago. Has been off sedation since yesterday, patient is waking up today, seems to follow simple instructions like squeezing hands, wiggling toes and opening eyes as well as sticking out his tongue but seems to be generally weak. WBC count is 11 hemoglobin is 11.2, basic metabolic profile is normal BUN is 56 creatinine 0.81 patient is still receiving enteral feeding via nasogastric tube, could not place PEG tube, however we will decide on the open approach for a PEG tube or jejunostomy tube next Thursday in the meantime I will continue to try possibly trials of weaning, and if I could get the patient to a trach collar, we could possibly deflate the cuff and address swallow evaluation. Seen today on 08/20/2024, patient remains in the ICU, intubated mechanically ventilated. Patient is on assist-control rate of 20 tidal volume 500 FiO2 50% and PEEP 12 I cut it down to 10 based on his ABG with pO2 of 100 pCO2 44 pH of 7.51 patient is awake, follows very simple instructions mostly squeezing hands, but does not wiggle toes today, patient is on vital AF at 55 mL/h, this is given via nasogastric tube, IV fluids at KVO, and he is on Eliquis. Remains on diuretics, he is off antibiotics. Chest x-ray is about the same, left lower lo be atelectasis noted, unchanged, procalcitonin level was normal hence patient has been off antibiotics. WBC count is 11.1 hemoglobin 10.8 basic metabolic profile is normal low potassium of 3.3 being addressed accordingly bicarb is 38 BUN is 58 creatinine 0.66, remains on diuretics. Patient was seen today on 08/21/2024, remains in the ICU, intubated and mechanically ventilated. Patient is on assist-control rate of 24 tidal volume 500 FiO2 50% and PEEP of 8 ABG showed a pO2 of 80, pCO2 46 pH of 7.53. Patient is developing low-grade fever overnight, he is also developing worsening leukocytosis, he has now purulent sputum, hence am recommending that we go back on Zosyn, sputum cultures and trach secretions cultures are pending. In the meantime we will place back on Zosyn. Patient is now up in the chair, tracheostomy site seems to be wide, patient may need reevaluation by surgery, hand surgery was reconsulted to evaluate the tracheostomy site. Attempts were made to have a PEG tube placed endoscopically, however this could not be performed, and surgery may have to consider open gastrostomy tube placement. Today I am asking the surgical staff to address his surgical wounds/tracheostomy site, as it seems to be gaping. Patient is arousable, follows very simple instructions like squeezing hands closing eyes, wiggling toes. Patient is remains on enteral feeding vital AF 55/55 via nasogastric tube. Patient is off propofol, yesterday I recommended Lovenox 80 mg SQ twice daily, he used to be on Eliquis for atrial fibrillation however considering that the patient may require surgery/open gastrostomy tube placement, I am recommending Lovenox for now 80 mg SQ twice daily. Continues on Lasix 40 mg twice daily and today and Zosyn was added. WBC count is up-to-day to 20.3 hemoglobin 11.5, basic metabolic profile is normal bicarb is 37 BUN is 60 creatinine 0.56 chest x-ray showing left lower lobe atelectasis possible left lower lobe airspace disease. Possible pneumonia. 08/22/2024 patient seen and examined at bedside. Patient still remains in ICU intubated and mechanically ventilated. Status post tracheostomy day 4. Patient still noted to have bleeding from tracheostomy site. Ventilator currently on assist-control with a rate of 20, tidal volume 50, FiO2 50% and a PEEP of 8. Patient currently on Zosyn IVPB for empiric coverage, IV Solu-Medrol at 60 mg every 6 hours, and amiodarone drip at 0.5 mg/min. Still currently on vital AF for enteric feeding at the rate of 55. ABG today shows PaO2 of 72, pCO2 49, and pH of 7.5. Labs today show WBC at 16.8, hemoglobin 10.4, platelet count 416,000, sodium 142, potassium 3.7, chloride 95, bicarb 40, BUN 69, creatinine 0.71, glucose 201, calcium 9.5. Chest x-ray showed bilateral opacities consistent with acute infiltrates and/or atelectasis shows no change from prior x-rays. 08/23/2024 patient seen and examined at bedside. Patient still remains in ICU intubated and mechanically ventilated. Status post tracheostomy day 5. Patient still noted to have some bleeding from tracheostomy site. Patient was able to tolerate CPAP for 10 hours. Ventilator currently on assist-control with a rate of 20, tidal volume 500, FiO2 50% and a PEEP of 5. On enteral feeding with Vital AF at a rate of 55. Patient currently on Zosyn IVPB for empiric coverage, IV Solu-Medrol at 60 mg every 6 h, metolazone 5 mg p.o. daily, and Lasix 40 mg every 12 hours. ABG today showed PaO2 75, pCO2 42, pH 7.5. Labs today show WBC 9.8, hemoglobin 10.8, platelet count 436,000, sodium 145, potassium 3.7, bicarb 38, BUN 83, creatinine 0.68, glucose 228, calcium 9.3. Chest x-ray showed bibasilar acute infiltrates and/or atelectasis with small right pleural effusion. Neck cultures from 08/21 showed presumptive MRSA. 08/24/2024 patient seen and examined at bedside. Patient still remains in ICU intubated and mechanically ventilated. Status post tracheostomy day 6. Patient was febrile overnight and was controlled with ice packs. Patient was able to tolerate CPAP for about 10 hours yesterday. Ventilator currently on assist-c ontrol with a rate of 16, tidal volume 500, FiO2 50% and a PEEP of 5. On entering for feeding but has been held for now. Patient currently on cefepime IVPB, vancomycin IV, IV Solu-Medrol at 40 mg every 8 h, metolazone 5 mg p.o. daily, and Lopressor 25 mg p.o. twice daily. ABG showed pO2 146, pCO2 36, and pH of 7.62. Labs today showed WBC 11.9, hemoglobin 11.4, platelet count 431,000, sodium 147, potassium 3.8, chloride 102, bicarb 39, BUN 69, creatinine 0.69, glucose 193, calcium 9.7. Neck cultures from 08/21 showed positive for MRSA. Sputum culture showed positive for Pseudomonas aeruginosa. Chest x-ray today showed stable bibasilar acute infiltrates and/or atelectasis with improvement of the left but worsening on the right. Review of Systems: Pertinent positives and negatives have been noted above. The rest of systems are unremarkable. GENERAL: Not in distress, nontoxic, 63-year-old white male awake seems to follow simple instructions HEENT: Pupils are round and equally reacting to light. EOMI. No scleral icterus. No conjunctival pallor. Normocephalic, atraumatic. No pharyngeal erythema. No thyromegaly. Tracheostomy site seems to have widened and gaping surgical site, slow light bleeding noted, no discharge seen CARDIOVASCULAR: irregularly irregular S1-S2, no S3 gallop PULMONARY: Good breath sound bilaterally no crackles rhonchi or wheezes ABDOMEN: obese soft nontender no megaly, no rebound, no guarding. MUSCULOSKELETAL: No joint swelling or deformity. EXTREMITIES: No cyanosis, clubbing, continues with 2+ bipedal edema NEUROLOGICAL: Awake and alert, follows simple instructions however patient is extremely weak. Psychiatric: Unable to fully assess SKIN: Patient has a stage II skin ulcer at the distal lateral aspect of the right lower extremity/chronic Impression: -Active: Acute hypoxic respiratory failure requiring intubation mechanical ventilation, multifactorial, s/p tracheostomy on 08/17. Neck cultures positive for MRSA. Sputum culture positive for Pseudomonas aeruginosa. Chest x-ray today showed stable bibasilar acute infiltrates and/or atelectasis with improvement of the left but worsening on the right. Acute COVID-19 pneumonia Acute fluid overload and bilateral pleural effusions most likely secondary to diastolic congestive heart failure, stable New onset seizure activity, on Keppra Chronic atrial fibrillation Morbid obesity Status post endotracheal tube changed on 08/16 Status post tracheostomy on 08/17/2024 Acute metabolic encephalopathy Contraction alkalosis -Chronic: History of CVA Benign essential hypertension Obesity hypoventilation syndrome with BMI of 63.9 Obstructive sleep apnea syndrome Congestive heart failure with preserved LV function Type 2 diabetes Iron deficiency anemia History of polysubstance abuse History of right foot diabetic infection with previous incision and drainage in July 04, 2023 Recommendation: Continue ventilatory support. SBT again today with PSV 8 and CPAP 5 Continue to hold sedation. Neurology service following. Continue Keppra 500mg IVP every 12 hours Continue cefepime 2 g IVPB every 8 hours Continue Vancomycin dosed per pharmacy Diamox 500mg IV once Discontinue metolazone Continue Lopressor 25 mg p.o twice daily. On Lopressor IV for now until enteral feeding tube placed. Continue solumedrol IV to 40mg every 8 hours Anticoagulation held due to procedures Continue nutritional support/enteral feeding to goal rate. Held for now. Will resume after procedure. For open gastrostomy tube palcement today per surgery service Tracheostomy management per surgery service GI prophylaxis: Protonix 40mg IV daily DVT prophylaxis: SCDs Prognosis: guarded. Patient remains critically ill. LTAC recommended for this patient on discharge. Objective - Vital Signs Vital signs: Vital Signs Temp 98.7 F 08/24/24 04:00 Pulse 97 08/24/24 07:00 Resp 16 08/24/24 07:00 BP 120/95 08/24/24 07:00 Pulse Ox 100 08/24/24 07:00 FiO2 50 08/24/24 04:55 Intake & Output 08/23/24 08/24/24 08/24/24 18:59 06:59 18:59 Intake Total 1859 1075 10 Output Total 1425 780 75 Balance 434 295 -65 Weight 182 kg Intake: IV 1084 720 10 Cefepime 2 gm In Sodium 100 100 Chloride 0.9% 100 ml @ 25 mls/hr IVPB Q8HR [facility] Rx# :[id number] KVO 60 120 10 Piperacillin-Tazobactam 3 100 .375 gm In Sodium Chloride 0.9% 100 ml @ 25 mls/hr IVPB Q8HR [facility] Rx# :[id number] Potassium Chloride 10 meq 300 In Water For Injection 1 100ml.bag @ 100 mls/hr IVPB Q1H [facility] Rx#: [id number] Pressure Bag 24 Vancomycin 2,500 mg In 500 500 Sodium Chloride 0.9% 500 ml 500 ml @ 167 mls/hr IVPB ONCE ONE Rx#: [id number] Tube Feeding 685 325 Other 90 30 Output: Urine 1425 780 75 Other: Voiding Method Indwelling Catheter Indwelling Catheter ABP, PAP, CO, CI - Last Documented Arterial Blood Pressure 126/76 - Labs CBC & Chem 7: 08/24/24 05:17 08/24/24 05:17 Labs: Abnormal Lab Results - Last 24 Hours (Table) 08/23/24 08/23/24 08/23/24 Range/Units 12:25 18:03 23:30 WBC (3.8-10.6) k/uL Hgb (13.0-17.5) gm/dL Hct (39.0-53.0) % MCV (80.0-100.0) fL MCH (25.0-35.0) pg MCHC (31.0-37.0) g/dL RDW (11.5-15.5) % Neutrophils # (1.3-7.7) k/uL ABG pH (7.35-7.45) ABG pO2 (83-108) mmHg ABG HCO3 (21-25) mmol/L ABG Total CO2 (19-24) mmol/L ABG O2 Saturation (94-97) % Hemoglobin (13.0-17.5) gm/dL Sodium (137-145) mmol/L Carbon Dioxide (22-30) mmol/L BUN (9-20) mg/dL Glucose (74-99) mg/dL POC Glucose (mg/dL) 228 H 281 H 254 H (70-110) mg/dL 08/24/24 08/24/24 08/24/24 Range/Units 05:02 05:17 05:17 WBC 11.9 H (3.8-10.6) k/uL Hgb 11.4 L (13.0-17.5) gm/dL Hct 38.7 L (39.0-53.0) % MCV 77.6 L (80.0-100.0) fL MCH 22.8 L (25.0-35.0) pg MCHC 29.4 L (31.0-37.0) g/dL RDW 16.1 H (11.5-15.5) % Neutrophils # 9.6 H (1.3-7.7) k/uL ABG pH 7.62 H* (7.35-7.45) ABG pO2 146 H (83-108) mmHg ABG HCO3 37 H (21-25) mmol/L ABG Total CO2 38 H (19-24) mmol/L ABG O2 Saturation >100.0 H (94-97) % Hemoglobin 11.4 L (13.0-17.5) gm/dL Sodium 147 H (137-145) mmol/L Carbon Dioxide 39 H (22-30) mmol/L BUN 69 H (9-20) mg/dL Glucose 183 H (74-99) mg/dL POC Glucose (mg/dL) (70-110) mg/dL 08/24/24 Range/Units 06:04 WBC (3.8-10.6) k/uL Hgb (13.0-17.5) gm/dL Hct (39.0-53.0) % MCV (80.0-100.0) fL MCH (25.0-35.0) pg MCHC (31.0-37.0) g/dL RDW (11.5-15.5) % Neutrophils # (1.3-7.7) k/uL ABG pH (7.35-7.45) ABG pO2 (83-108) mmHg ABG HCO3 (21-25) mmol/L ABG Total CO2 (19-24) mmol/L ABG O2 Saturation (94-97) % Hemoglobin (13.0-17.5) gm/dL Sodium (137-145) mmol/L Carbon Dioxide (22-30) mmol/L BUN (9-20) mg/dL Glucose (74-99) mg/dL POC Glucose (mg/dL) 177 H (70-110) mg/dL Microbiology - Last 24 Hours (Table) 08/21/24 16:47 Blood Culture - Preliminary Blood 08/21/24 12:40 Anaerobic Culture - Preliminary Neck 08/21/24 12:40 Gram Stain - Preliminary Neck Wound Culture - Preliminary Methicillin resist S. aureus 08/21/24 10:12 Gram Stain - Preliminary Sputum Sputum Culture - Preliminary Pseudomonas aeruginosa Presumptive Staph aureus
[2024-08-24] MEDS ORDERED: fentaNYL (PF) 50 MCG/ML 2 ML AMP ONE (11:26)
[2024-08-24] MEDS ORDERED: ROCURONIUM 10 MG/ML (5 ML VIAL) IV ONE (11:26)
[2024-08-24] MEDS: SODIUM CHLORIDE 0.9% 500 ML 500 ML IV ONE (11:26)
[2024-08-24] MEDS ORDERED: PROPOFOL 10 MG/ML 20 ML VIAL IV ONE (11:26)
--- NOTE | 2024-08-24 13:22 | P.OP ---
Date of Procedure: 08/24/24 Preoperative Diagnosis: Malnutrition Postoperative Diagnosis: malnutrition Procedure(s) Performed: open jejunostomy tube Anesthesia: DINORAH Surgeon: Ori Chowdhury Pathology: none sent Condition: critical Disposition: ICU Description of Procedure: The patient was placed on the operating table in the supine position. He received general anesthesia. Patient is morbid obese. His BMI is 55. The abdomen was prepped in AP sterile fashion. The abdomen is entered through a upper midline skin incision. Motor and the abdomen there were some adhesions to the intra-abdominal wall these were lysed with sharp dissection. The stomach was visualized. The patient had previous gastric sleeve. The sleeve appeared to be dilated. The sleeve gastric sleeve appeared to have a suitable diameter for a G-tube. A gastrotomy was made. In the G-tube was tested fit into the stomach. It was felt that the G-tube may be too large for the gastric sleeve. This point the G-tube was removed and the gastrotomy was oversewn with 3-0 GI silk suture. At this point the small bowel was found. The ligament of Treitz was found. And then the jejunum was visualized. The jejunostomy tube was then placed through the abdominal wall and left lower quadrant and then placed into the jejunum. The tube was fed distally. And then the tube was secured in the jejunum with 3-0 GI silk pursestring suture. The balloon was inflated. The jejunum diameter diameter appeared appropriate. This point the jejunum was tacked to the peritoneum of the anterior bowel wall using 3-0 GI silk suture in 4 quadrants. The abdomen irrigated till being seen. The fascia was closed looped #1 PDS suture. Skin was closed lisandro. The jejunostomy tube was then secured with 2-0 nylon suture. Patient Toller procedure well. He was sent to ICU in critical condition.
--- NOTE | 2024-08-24 13:54 | XR ---
EXAMINATION TYPE: XR chest 1V portable DATE OF EXAM: 08/24/2024 CLINICAL HISTORY: NG tube placement. TECHNIQUE: Single AP portable semiupright view of the chest is obtained. COMPARISON: Chest x-ray from earlier today FINDINGS: Nasogastric tube projects below diaphragm. Stable tracheostomy tube and left-sided PICC li ne. Persistent bibasilar increased opacities. Heart size stable and upper limits of normal. Old healed fr actures of the posterior-lateral left fifth through seventh ribs are redemonstrated. IMPRESSION: New nasogastric tube projects below the diaphragm. [facility], , 08/24/2024 1:52 PM
[2024-08-24] MEDS: POTASSIUM CHLORIDE 20 MEQ in WATER FOR INJECTION 1 100ML.BAG IVPB SCH (15:42)
[2024-08-24 17:24] LABS: Glucose,Whole Blood 106 mg/dL (70-110)
--- NOTE | 2024-08-24 22:14 | PN ---
PROGRESS NOTE SUBJECTIVE: A 63-year-old gentleman with history of persistent atrial fibrillation, vent-requiring respiratory failure that we were reconsulted for yesterday because of atrial fibrillation. This morning, the patient remains in atrial fibrillation with controlled ventricular rate. CURRENT MEDICATIONS: Include Lopressor 5 mg IV b.i.d. When we were able to give him oral medications, we will resume them. The patient was on Eliquis in the past that is currently on hold. Once the PEG tube is done, we should revisit this issue. OBJECTIVE: VITAL SIGNS: Heart rate is 90 beats per minute, blood pressure is 140/92, respiratory rate is 18, O2 saturation is 100% on FiO2 of 50%. CHEST: Reveals diminished air entry with occasional rhonchi. HEART: Reveals first and second heart sounds, irregular rhythm. ABDOMEN: Soft. EXTREMITIES: Reveals mild edema. LABORATORY DATA: Labs show a hemoglobin of 11.4, platelet count is 430, potassium is 3.8, creatinine is 0.6. ASSESSMENT: Persistent atrial fibrillation. PLAN: I am going to resume oral metoprolol once we are able to and continue and restart the anticoagulant when we are able to. MMODL / IJN: [id number] /
[2024-08-24 23:14] LABS: Glucose,Whole Blood 165 mg/dL (70-110)
--- NOTE | 2024-08-25 02:57 | P.PN ---
Subjective Progress Note Date: 08/24/24 Patient in the intensive care unit currently intubated and sedated on the mechanical ventilator. Patient's chest x-ray today does reveal worsening CHF. He is significantly edematous. Remains sedated with IV fentanyl and propofol. He continues on IV Zosyn. Patient was started on enteral feedings today. blood sugars are elevated in the 200s. 08/07/2024 Patient was evaluated in follow-up in the medical floor he is currently intubated and sedated on the mechanical ventilator. Patient had gone into atrial fibrillation with rapid ventricular rate overnight requiring IV Cardizem. He has been since transition to oral metoprolol with heart rate better controlled today. He does have a noted history of atrial fibrillation was resumed on his oral Eliquis yesterday. Patient currently has LR running at 75 mL/h he does remain quite edematous mostly in his lower extremities. Patient was noted to have a small amount of yellow bile emesis there has been no residual with his tube feedings and they are continued at a slow rate today of 10 mL/h. He is febrile today temperature of 100.8. An abdominal x-ray was unable to be completed due to patient's body habitus and he is unable to be transported down for x-ray at this time. 08/08/2024 Patient is seen in follow-up in the ICU and overnight placed on mechanical ventilation as patient was noted to have what appeared to be seizure-like activity with no history of seizures and neurology was consulted. Patient was placed on mechanical ventilation currently with an FiO2 of 60% and PEEP is 10 with pulmonary filler room attendant following. Patient remains with low-grade temps and also started on Keppra and is maintained on antibiotics. Cardiology following as well maintained on oral anticoagulation and has been having heart rates in the 40s. Continued on low-dose metoprolol and will continue to monitor closely. Per nursing staff patient also requiring low-dose Levophed and has been started on 40 of IV Lasix daily due to significant swelling. Will follow-up on repeat labs and continue to monitor closely. 08/09/2024 Patient is seen in follow-up with multiple consultations following including pulmonary, neurology, cardiology, and infectious disease consulted. Patient underwent EEG which was abnormal with no epileptiform discharges noted. Patient is continued on Keppra for now. Heart rates in the low 40s although per nursing staff slightly improved this afternoon and is being monitored closely with cardiology following. Patient is continued on Lasix for diuresis with significant volume overload. Wean pressors as tolerated and follow-up on repeat labs. Patient's blood sugars have been more elevated and possible steroid effect will increase long-acting and also Accu-Cheks before meals and at bedtime as well as sliding scale. Adjust accordingly. 08/10/2024 Patient is seen in follow-up today continues on mechanical ventilation in the ICU with an FiO2 of 80% and PEEP is 14. Undergoing sedation holidays and per nursing staff patient will open his eyes and attempt to track although not moving. Patient continues to be extremely edematous and is diuresing maintained on IV Lasix. Heart rates slightly improved and will continue current regimen per cardiology. No plans on extubation at this time. Per nursing staff patient has not had a bowel movement and is continued on bowel regimen. Abdomen is soft and there is positive bowel sounds noted. Patient continued on tube feeds. Highly recommend aspiration precautions and head of the bed elevated 30 to 45 degrees at all times. 08/12/2024 Patient is seen in follow-up today remains in the ICU with multiple consultations following. PEEP remains high at 16 with an FiO2 of 70% and per nursing staff has been having some desaturations and is being increased to 80% FiO2. Patient is maintained on metolazone along with IV Lasix and potassium borderline daily being replaced will add daily supplementation. Patient is having adequate diuresis and kidney functions are stable. Patient undergoing sedation holidays daily with no plans of weaning and extubation at this time. Patient is afebrile and maintained on IV Decadron along with Zosyn. Continue bowel regimen patient does have positive bowel sounds and is tolerating tube feeds at this time. Recommend aspiration precautions with head of the bed elevated 45 degrees at all times. 08/13/2024 Patient evaluated in the intensive care unit with multiple consultations following. Patient remains on the mechanical ventilator with a PEEP of 16 and FiO2 of 70%. Patient is appropriately arousable during sedation holidays. No plans for extubation at this time. Patient continues on IV Zosyn continues on IV Lasix IV Diamox and continues on oral zaroxolyn. Lower extremities remain significantly edematous. Patient is continued on enteral feedings now at goal running at 55 mL/h. Blood glucose has been elevated in the 200s. Chest x-ray today reveals a left-sided pleural effusion. 08/14/2024 Patient eval today in follow-up in the intensive care unit patient remains on mechanical ventilator, FiO2 down to 50%. Chest x-ray today reveals stable left lower lobe infiltrate and effusion. Patient remains on IV decadron daily. IV lasix 40 mg Q12 hour. Increased urine output over the last 24 hours. Lower extre mity edema has mildly improved. Bowels are moving. Patient is tolerating enteral feeding. IV zosyn has been discontinued. WBC 8.3, hgb 9.2, sodium 133, BUN 34, creatinine 0.90, magnesium 1.9. Patient evaluated today in follow up in the ICU. Vent settings were decreased yesterday to 50% FiO2 with a PEEP of 12, patient became increasingly hypoxic. Vent settings increased back up to 70% fio2 and PEEP of 16. Remains on IV decadron daily. Continues on IV lasix 40 mg Q12 hour as well as oral zaroxolyn. Chest xray today shows left perihilar infiltrate and small left pleural effusion. Patient remains on enteral feedings with Vital HP running at goal of 50 mls/hr and tolerating. Blood glucose remains elevated in the 200-300s. Labs revealing white blood cell count 7.2, hgb 9.5, sodium 132, BUN 38, creatinine 0.85. Procal 0.18. TSH 1.780. 08/16/2023 Patient evaluated today in the ICU. Remains on mechanical ventilator with PEEP of 70% FiO2 of 16. Chest xray today reveals mild right upper lobe infiltrate. Additional mild infiltrate may be at the left base. General surgery consulted f or tracheostomy and PEG tube placement. White blood cell count 8.7, hgb 9.9, sodium 132, potassium 4.5, BUN 42, creatinine 0.77. 08/17/2023 Was evaluated today in the intensive care unit. Patient remains on mechanical ventilator with an FiO2 of 60% and PEEP of 18. X-ray today reveals a mild garret hilar increased lung markings stable from comparison. Patient catheter tip are currently negative. His white blood blood count is normal at 8.5, hemoglobin 9.7, sodium 134, BUN of 47 and creatinine of 0.75. Is currently on IV Solu- Medrol 60 mg every 6 hours. He is sedated with propofol. He is on IV Keppra. He is currently off antibiotic at this time. 08/18/2023 Patient is status post tracheostomy placement continues on the mechanical ventilator, FiO2 of 50% and PEEP of 16. Patient continues to have evidence of altered mentation with EEG showing severe metabolic encephalopathy. Rn Social Work planning to discontinue the propofol at this time to assess patient's mental status. He continues on IV Lasix with slight improvement on the chest x-ray today. The PEG tube was unable to be placed secondary to body habitus. Labs today reveal a white blood cell count 11.1, hemoglobin 10.3, sodium 134, potassium 3.2, BUN 53 creatinine of 0.80. 08/19/2024 Patient is seen in follow-up continues in the ICU status post tracheostomy placement currently off sedation and awake today opening eyes and eye tracking attempting to follow commands although is significantly weak. Patient continues on assist mode and FiO2 is 50% and PEEP was decreased to 12. Multiple consultations following including general surgery as they were unable to place a PEG tube and will continue with tube feeds via NG. Considering possible open gastrostomy tube given patient's body habitus. Patient is afebrile and being monitored with infectious disease following off antibiotic therapy. Patient also continues on IV diuresis and tolerating well. Patient being followed by pulmonary attempting to wean as tolerated and also maintained on steroids with mildly elevated blood sugars more so than normal in the 200s will slightly increase long-acting insulin and monitor closely. Follow-up with repeat labs. Case management also following in the event patient will require possible LTAC admission. 08/20/2024 Patient is evaluated today in follow up on the intensive care unit. Patient is status post tracheostomy placement. He remains off sedation. Eyes are opening to verbal stimulation and tracing and following simple commands he is significantly weak. He remains on the mechanical ventilator with FiO2 of 50% and PEEP of 10. He is being considered for trial of CPAP tomorrow. chest xray today reveals stable left lower lobe airspace disease stable support tubes and lines. Patient continues on IV lasix 40 mg every 12 hours. White blood cell count today 11.1, hgb 10.8, sodium 138, potassium 3.3, BUN 58, creatinine 0.66, magnesium 2.1. 08/21/2024 Patient seen in follow-up today continues to be in the ICU with multiple consultations following. Patient remains on tracheostomy and vent with an FiO2 of 50%. Patient is having some increase in white count up to 20 along with low- grade temps and is being reinitiated on antibiotics in the form of Zosyn with infectious disease following. Cardiology following as well and patient is being placed on amiodarone drip. General surgery following status post via tracheostomy and there is some bleeding noted on the tracheostomy site and suture being replaced. Continue head of the bed elevated 35 to 45 degrees at all times and strict aspiration precautions. General surgery following for possible G-tube as well. PEG tube was unsuccessful. 08/22/2024 Patient is seen in follow-up today sitting up in the bed had some continued bleeding around the tracheostomy site and anticoagulation remains on hold and patient with surgery following placed a suture and is continued on packing exchanges around the site. Patient also continues on tube feeds via NG tube with general surgery following discussing possible GE tube with open surgery sometime this week. Hemoglobin is stable above 10 and will monitor closely. Patient is currently on CPAP mode with an FiO2 of 50% and PEEP is 5. Medications being adjusted per cardiology as patient was continued on amiodarone drip. 08/23/2024 Patient is seen and evaluated in follow-up today continues to be in the ICU with multiple consultations following. Patient will be undergoing PEG or G-tube placement with general surgery on 08/24/2024. Patient tolerating tube feeds via NG tube at this time. Cultures are pending of sputum and blood and infectious disease following and patient is maintained on vancomycin along with cefepime and will continue while awaiting finalized cultures. Mild bleeding has seemed to stop around the tracheostomy and has been ongoing trials of CPAP. Plan will be for possible LTAC after patient receives PEG tube placement. Case management is following. 08/24/2024 Patient seen and evaluated in follow-up with multiple consultations following. Patient will receive a jejunostomy tube today as PEG tube was unable to be placed given patient's body habitus. Tube feeds have been on hold and will be resumed once cleared by general surgery. Sputum cultures finalized as Pseudomon as with infectious disease following and will continue. White count mildly elevated at 11, patient is afebrile. Unable to complete review of systems as patient is currently intubated. Patient does eye track and follow commands Active Medications Acetaminophen (Acetaminophen Tab 325 Mg Tab) 650 mg PO Q6HR PRN PRN Reason: Fever and/ or Pain Last Admin: 08/23/24 18:34 Dose: 650 mg Albuterol Sulfate (Albuterol Nebulized 2.5 Mg/3 Ml) 2.5 mg INHALATION RT-QID PRN PRN Reason: Shortness Of Breath Or Wheezing Bisacodyl (Bisacodyl 10 Mg Supp) 10 mg RECTAL HS PRN PRN Reason: Constipation Chlorhexidine Gluconate (Chlorhexidine Gluconate 15 Ml Cup) 15 ml MUCOUS MEM BID [facility] Last Admin: 08/24/24 20:04 Dose: 15 ml Cholecalciferol (Cholecalciferol 25 Mcg (1000 Iu) Tablet) 25 mcg PO DAILY [facility] Last Admin: 08/24/24 08:59 Dose: Not Given Dextrose/Water (Dextrose 50% Syringe 50 Ml) 25 ml IVP PER PROTOCOL PRN; Protocol PRN Reason: Hypoglycemia Dextrose/Water (Dextrose 50% Syringe 50 Ml) 50 ml IVP PER PROTOCOL PRN; Protocol PRN Reason: Hypoglycemia Hydromorphone HCl (Hydromorphone 1 Mg/Ml 1 Ml Syringe) 1 mg IVP Q3HR PRN PRN Reason: Pain Last Admin: 08/23/24 21:34 Dose: 1 mg Vancomycin HCl 2,500 mg/ (Sodium Chloride) 500 mls @ 167 mls/hr IVPB Q12HR [facility] Last Admin: 08/24/24 20:05 Dose: 167 mls/hr Cefepime HCl 2 gm/ Sodium (Chloride) 100 mls @ 25 mls/hr IVPB Q8HR [facility]; Protocol Last Admin: 08/24/24 23:29 Dose: 25 mls/hr Insulin Aspart (Insulin Aspart (Novolog) 100 Unit/Ml Vial) 0 unit SQ Q6H [facility]; Protocol Last Admin: 08/24/24 23:30 Dose: 4 unit Insulin Detemir (Insulin Detemir (Levemir) 100 Unit/Ml Syr) 60 unit SQ BID@0700,2100 [facility] Last Admin: 08/24/24 20:04 Dose: 60 unit Levetiracetam (Levetiracetam Iv 500 Mg/5 Ml Vial) 500 mg IVP Q12HR [facility] Last Admin: 08/24/24 20:04 Dose: 500 mg Lorazepam (Lorazepam 2 Mg/Ml Inj) 1 mg IV Q1HR PRN PRN Reason: Anxiety Last Admin: 08/20/24 22:47 Dose: 1 mg Methylprednisolone Sodium Succinate (Methylprednisolone Sod Succi 40 Mg/Ml 1 Ml Vial) 40 mg IV Q8HR [facility] Last Admin: 08/24/24 23:30 Dose: 40 mg Metoprolol Tartrate (Metoprolol Tartrate 5 Mg/5 Ml Vial) 5 mg IVP Q6HR [facility] Last Admin: 08/24/24 23:30 Dose: 5 mg Miscellaneous Information (Potassium Replacement Protocol 1 Each Misc) 1 each MISCELLANE DAILY PRN; Protocol PRN Reason: Per Protocol Naloxone HCl (Naloxone 0.4 Mg/Ml 1 Ml Vial) 0.2 mg IV Q2M PRN PRN Reason: Opioid Reversal Pantoprazole Sodium (Pantoprazole 40 Mg/10 Ml Vial) 40 mg IV DAILY [facility] Last Admin: 08/24/24 09:08 Dose: 40 mg Petrolatum (Zinc Oxide Paste (Z-Guard) 1 Applic) 1 applic TOPICAL BID PRN; Protocol PRN Reason: Wound Healing Potassium Bicarbonate (Potassium Bicarbonate/Cit Ac 20 Meq Tablet.Eff) 40 meq PO DAILY [facility] Last Admin: 08/24/24 08:59 Dose: Not Given PHYSICAL EXAMINATION: GENERAL: The patient is intubated and awake . Fatigues easily although does respond to name and eye tracking and blinking eyes. Patient is following some commands. Significantly weak. He is morbidly obese, well-developed, elderly appearing, extremely edematous of upper and lower extremities and body habitus, ill-appearing. FiO2 is currently 50% with a PEEP of 5 HEENT: Pupils are round and equally reacting to light. EOMI. No scleral icterus. No conjunctival pallor. Normocephalic, atraumatic. No pharyngeal erythema. No thyromegaly. No further bleeding noted around the tracheostomy site and dressings being changed, suture was applied per surgery CARDIOVASCULAR: S1 and S2 muffled, irregular PULMONARY: Diminished breath sounds bilaterally otherwise chest is clear to auscultation, no wheezing , no crackles. ABDOMEN: Soft, obese, nontender, nondistended, normoactive bowel sounds. No palpable organomegaly. Kelly catheter in place MUSCULOSKELETAL: No joint swelling or deformity. EXTREMITIES: No cyanosis, clubbing, continues with significant lower extremity edema bilaterally pitting right lower leg superficial wound is improved with no significant redness and some mild flaking of the skin noted NEUROLOGICAL: Awake although fatigues easily, eye-opening and responding to name, tracking, able to follow simple commands, extremely weak SKIN: No rashes. no petechiae. Assessment: Acute hypoxic respiratory failure requiring intubation on admission, currently on mechanical ventilation, FiO2 is 50% with PEEP of 5. Status post tracheostomy on 08/17/2024 COVID infection and possible pneumonia, concerns for aspiration pneumonia Leukocytosis with low-grade temps, repeat cultures obtained along with sputum culture showing Pseudomonas maintained on cefepime and vancomycin Possible seizure like activity, new onset, EEG was abnormal although not showing any epileptiform discharges, continued on Keppra for now with neurology following Possible acute COPD exacerbation versus obesity hypoventilation syndrome Possible bacterial pneumonia, healthcare associated with right upper lobe and left lower lobe infiltrates, ruled out, white count is normal and patient is off antibiotics, cultures are negative Severe sepsis requiring pressor support Acute on chronic diastolic heart failure with preserved EF A-fib and RVR, present on admission with slow ventricular rate dropping into the 30s. Currently rate controlled Right leg wound with recent cultures showing enterococcus faecalis, ESBL and Providencia Rettgeri Diabetes Mellitus type 2, uncontrolled with hyperglycemia Steroid induced hyperglycemia Morbid obesity with a BMI of 64.2 Chronic anemia Lactic acidemia/acidosis, improved GI prophylaxis DVT prophylaxis Full Code Plan: Patient is continued on antibiotic in the form of cefepime and vancomycin with infectious disease following. Sputum culture showing Pseudomonas . Blood cultures thus far remain negative. Mechanical ventilator per filler room attendant. Working on weaning trials and CPAP. Patient is status post tracheostomy on 08/17/2024. Currently on CPAP mode daily as tolerated Continue enteral feedings, tube feeds on hold currently as patient is scheduled to receive a jejunostomy tube today. Continue with aspiration precautions and head of the bed elevated 45 degrees at all times and monitor closely for residuals. General surgery to place feeding tube today 08/24/2024. Continue bowel regimen and also daily suppositories as needed. Patient does not have history of seizures and was started on Keppra and neurology following underwent EEG which was abnormal although not showing any ep ileptiform discharges. No further seizure-like activity noted. Neurology following as needed Per pulmonary filler room attendant patient is continued on IV Lasix every 12 hours. And will continue to monitor kidney functions closely. Replace electrolytes per protocol. Daily supplementation of potassium ordered Patient had some continued bleeding at the tracheostomy site requiring a suture with general surgery and anticoagulation has been placed on hold due to increased bleeding. Dressing changes being changed. Hemoglobin is stable above 10. Per cardiology consider resuming Eliquis after j tube placement. Continue with Accu-Cheks [id number] sliding scale along with long-acting. Levemir will be slightly increased to 60 units SQ BID and also continue novolog scale which has been adjusted to high dose He is continued on IV Solu-Medrol Repeat blood work in the AM Overall prognosis is guarded and CODE STATUS needs to be addressed. Case management following in the event patient may require possible LTAC. Pulmonary filler room attendant planning on weaning as tolerated and was able to decrease the rate of PEEP to 5 and is continued at 50% FiO2 and also undergoing CPAP trials. Mentation is improving and patient is maintained off all sedation. Patient is significantly weak and has had prolonged hospitalization. Patient will require extensive physical rehab as well as tracheostomy care. Awaiting to have j-tube insertion and will continue with NG tube for now. Continue with aspiration precautions. CODE STATUS remains full code at this time The impression and plan of care has been dictated by Jocy Randle, Nurse Practitioner as directed. Dr. Crow MD I have performed a history and physical examination and medical decision making of this patient, discussed the same with the dictator, and agree with the dictators assessment and plan as written, documented as a scribe. Based on total visit time, I have performed more than 50% of this visit. Objective - Vital Signs Vital signs: Vital Signs Temp 98.9 F 08/24/24 08:00 Pulse 92 08/24/24 10:00 Resp 17 08/24/24 10:00 BP 153/102 08/24/24 10:00 Pulse Ox 100 08/24/24 10:00 FiO2 50 08/24/24 08:50 Intake & Output 08/23/24 08/24/24 08/24/24 18:59 06:59 18:59 Intake Total 1859 1075 740 Output Total 1425 780 305 Balance 434 295 435 Weight 182 kg Intake: IV 1084 720 740 Cefepime 2 gm In Sodium 100 100 100 Chloride 0.9% 100 ml @ 25 mls/hr IVPB Q8HR [facility] Rx# :[id number] KVO 60 120 40 Piperacillin-Tazobactam 3 100 .375 gm In Sodium Chloride 0.9% 100 ml @ 25 mls/hr IVPB Q8HR [facility] Rx# :[id number] Potassium Chloride 10 meq 300 100 In Water For Injection 1 100ml.bag @ 100 mls/hr IVPB Q1H [facility] Rx#: [id number] Pressure Bag 24 Vancomycin 2,500 mg In 500 500 500 Sodium Chloride 0.9% 500 ml 500 ml @ 167 mls/hr IVPB ONCE ONE Rx#: [id number] Tube Feeding 685 325 Other 90 30 Output: Urine 1425 780 305 Other: Voiding Method Indwelling Catheter Indwelling Catheter Indwelling Catheter ABP, PAP, CO, CI - Last Documented Arterial Blood Pressure 126/76 - Labs CBC & Chem 7: 08/24/24 05:17 08/24/24 23:02 Labs: Abnormal Lab Results - Last 24 Hours (Table) 08/23/24 08/23/24 08/23/24 Range/Units 12:25 18:03 23:30 WBC (3.8-10.6) k/uL Hgb (13.0-17.5) gm/dL Hct (39.0-53.0) % MCV (80.0-100.0) fL MCH (25.0-35.0) pg MCHC (31.0-37.0) g/dL RDW (11.5-15.5) % Neutrophils # (1.3-7.7) k/uL ABG pH (7.35-7.45) ABG pO2 (83-108) mmHg ABG HCO3 (21-25) mmol/L ABG Total CO2 (19-24) mmol/L ABG O2 Saturation (94-97) % Hemoglobin (13.0-17.5) gm/dL Sodium (137-145) mmol/L Carbon Dioxide (22-30) mmol/L BUN (9-20) mg/dL Glucose (74-99) mg/dL POC Glucose (mg/dL) 228 H 281 H 254 H (70-110) mg/dL 08/24/24 08/24/24 08/24/24 Range/Units 05:02 05:17 05:17 WBC 11.9 H (3.8-10.6) k/uL Hgb 11.4 L (13.0-17.5) gm/dL Hct 38.7 L (39.0-53.0) % MCV 77.6 L (80.0-100.0) fL MCH 22.8 L (25.0-35.0) pg MCHC 29.4 L (31.0-37.0) g/dL RDW 16.1 H (11.5-15.5) % Neutrophils # 9.6 H (1.3-7.7) k/uL ABG pH 7.62 H* (7.35-7.45) ABG pO2 146 H (83-108) mmHg ABG HCO3 37 H (21-25) mmol/L ABG Total CO2 38 H (19-24) mmol/L ABG O2 Saturation >100.0 H (94-97) % Hemoglobin 11.4 L (13.0-17.5) gm/dL Sodium 147 H (137-145) mmol/L Carbon Dioxide 39 H (22-30) mmol/L BUN 69 H (9-20) mg/dL Glucose 183 H (74-99) mg/dL POC Glucose (mg/dL) (70-110) mg/dL 08/24/24 Range/Units 06:04 WBC (3.8-10.6) k/uL Hgb (13.0-17.5) gm/dL Hct (39.0-53.0) % MCV (80.0-100.0) fL MCH (25.0-35.0) pg MCHC (31.0-37.0) g/dL RDW (11.5-15.5) % Neutrophils # (1.3-7.7) k/uL ABG pH (7.35-7.45) ABG pO2 (83-108) mmHg ABG HCO3 (21-25) mmol/L ABG Total CO2 (19-24) mmol/L ABG O2 Saturation (94-97) % Hemoglobin (13.0-17.5) gm/dL Sodium (137-145) mmol/L Carbon Dioxide (22-30) mmol/L BUN (9-20) mg/dL Glucose (74-99) mg/dL POC Glucose (mg/dL) 177 H (70-110) mg/dL Microbiology - Last 24 Hours (Table) 08/21/24 10:12 Gram Stain - Preliminary Sputum Sputum Culture - Preliminary Pseudomonas aeruginosa Methicillin resist S. aureus 08/21/24 23:45 Gram Stain - Final Sputum Sputum Culture - Final Pseudomonas aeruginosa 08/21/24 16:47 Blood Culture - Preliminary Blood 08/21/24 12:40 Anaerobic Culture - Preliminary Neck 08/21/24 12:40 Gram Stain - Preliminary Neck Wound Culture - Preliminary Methicillin resist S. aureus
[2024-08-25 03:04] LABS: Anisocytosis Slight; Basophils % (A) 0 %; Eosinophils % (A) 0 %; HCT 38.8 % (39.0-53.0); Hypochromasia Marked; Lymphocytes % (A) 6 %; MCH 22.6 pg (25.0-35.0); MCHC 28.4 g/dL (31.0-37.0); MCV 79.5 fL (80.0-100.0); Mean Platelet Volume 7.6; Microcytosis Slight; Monocytes # (A) 0.6 k/uL (0-1.0); Monocytes % (A) 4 %; Neutrophils # (A) 13.8 k/uL (1.3-7.7); Neutrophils % (A) 89 %; Platelet Count 299 k/uL (150-450); RBC 4.88 m/uL (4.30-5.90); RDW 16.1 % (11.5-15.5); WBC 15.6 k/uL (3.8-10.6)
[2024-08-25 03:21] LABS: African American GFR (CKD) >90 (>60 ml/min/1.73 sqM); Anion Gap 8 mmol/L; Blood Urea Nitrogen 64 mg/dL (9-20); Calcium 9.3 mg/dL (8.4-10.2); Carbon Dioxide 33 mmol/L (22-30); Chloride 108 mmol/L (98-107); Glucose 174 mg/dL (74-99); Non-African American GFR(CKD) >90 (>60 ml/min/1.73 sqM); Potassium 3.8 mmol/L (3.5-5.1); Sodium 149 mmol/L (137-145)
[2024-08-25] MEDS: POTASSIUM CHLORIDE 10 MEQ in WATER FOR INJECTION 1 100ML.BAG IVPB SCH (03:50)
[2024-08-25 05:34] LABS: Glucose,Whole Blood 159 mg/dL (70-110)
[2024-08-25 06:06] LABS: ABG Base Excess 7.8 mmol/L; ABG HCO3 32 mmol/L (21-25); ABG Oxygen Saturation 89.7 % (94-97); ABG PCO2 43 mmHg (35-45); ABG PH 7.48 (7.35-7.45); ABG TCO2 34 mmol/L (19-24); Allen Test Performed? Yes
[2024-08-25 06:09] LABS: ABG PO2 56 mmHg (83-108)
--- NOTE | 2024-08-25 07:03 | XR ---
EXAMINATION TYPE: XR chest 1V portable DATE OF EXAM: 08/25/2024 CLINICAL HISTORY: Difficulty breathing progress study. TECHNIQUE: Single AP portable semiupright view of the chest is obtained. COMPARISON: Chest x-ray from earlier today FINDINGS: Nasogastric tube projects below diaphragm. Stable tracheostomy tube and left-sided PICC li ne. Persistent bibasilar increased opacities. Heart size stable and mildly enlarged. There is new mild ce ntral vascular congestion. Old healed fractures of the posterior-lateral left fifth through seventh r ibs are redemonstrated. IMPRESSION: Mild Cardiomegaly with new mild central vascular congestion. Findings consistent with CHF exacerbation/fluid overload state. [facility], , 08/25/2024 7:01 AM
--- NOTE | 2024-08-25 08:10 | P.PN ---
Subjective Progress Note Date: 08/24/24 Principal diagnosis: Reason for follow-up is pneumonia Patient is a 63-year-old male with a past medical history significant for diabetes mellitus hypertension hyperlipidemia atrial fibrillation sleep apnea patient has been brought to the hospital in respiratory distress, patient noted to be at has been reviewed the ICU tested positive for COVID subsequently did have persistent fever and white count concerning for possible aspiration pneumonia prompting this consultation. On today's evaluation that is Patient is status post tracheostomy completed on 08/17/2024, attempted PEG tube placement which could not be placed because of morbid obesity and very thick abdominal wall. On today's evaluation that is 08/24/2024, Patient is afebrile this morning patient remains to be debated through the trach he is hemodynamically stable patient is awake with open eyes but did not provide any history no vomiting or diarrhea or any changes reported by the nursing staff. Patient white count is down to 11.9, creatinine is 0.69 sputum with the Pseudomonas as well as MRSA neck trachea ascites Pseudomonas and MRSA Objective - Vital Signs Vital signs: Vital Signs Temp 98.9 F 08/24/24 08:00 Pulse 99 08/24/24 11:00 Resp 20 08/24/24 11:00 BP 150/108 08/24/24 11:00 Pulse Ox 100 08/24/24 11:00 FiO2 50 08/24/24 08:50 Intake & Output 08/23/24 08/24/24 08/24/24 18:59 06:59 18:59 Intake Total 1859 1075 850 Output Total 1425 780 355 Balance 434 295 495 Weight 182 kg Intake: IV 1084 720 850 Cefepime 2 gm In Sodium 100 100 100 Chloride 0.9% 100 ml @ 25 mls/hr IVPB Q8HR FABIEN[facility] Rx# :[id number] KVO 60 120 50 Piperacillin-Tazobactam 3 100 .375 gm In Sodium Chloride 0.9% 100 ml @ 25 mls/hr IVPB Q8HR FABIENNE Rx# :[id number] Potassium Chloride 10 meq 300 200 In Water For Injection 1 100ml.bag @ 100 mls/hr IVPB Q1H FABIENNE Rx#: [id number] Pressure Bag 24 Vancomycin 2,500 mg In 500 500 500 Sodium Chloride 0.9% 500 ml 500 ml @ 167 mls/hr IVPB ONCE ONE Rx#: [id number] Tube Feeding 685 325 Other 90 30 Output: Urine 1425 507 355 Other: Voiding Method Indwelling Catheter Indwelling Catheter Indwelling Catheter ABP, PAP, CO, CI - Last Documented Arterial Blood Pressure 126/76 - Exam GENERAL DESCRIPTION: Middle-age man intubated through the trach on the vent RESPIRATORY SYSTEM: Unlabored breathing , decreased breath sounds at bases HEART: S1 S2 regular rate and rhythm , ABDOMEN: Soft , mild distention EXTREMITIES: Right groin wound currently dressed - Labs CBC & Chem 7: 08/25/24 02:48 08/25/24 07:22 Labs: Abnormal Lab Results - Last 24 Hours (Table) 08/23/24 08/23/24 08/23/24 Range/Units 12:25 18:03 23:30 WBC (3.8-10.6) k/uL Hgb (13.0-17.5) gm/dL Hct (39.0-53.0) % MCV (80.0-100.0) fL MCH (25.0-35.0) pg MCHC (31.0-37.0) g/dL RDW (11.5-15.5) % Neutrophils # (1.3-7.7) k/uL ABG pH (7.35-7.45) ABG pO2 (83-108) mmHg ABG HCO3 (21-25) mmol/L ABG Total CO2 (19-24) mmol/L ABG O2 Saturation (94-97) % Hemoglobin (13.0-17.5) gm/dL Sodium (137-145) mmol/L Carbon Dioxide (22-30) mmol/L BUN (9-20) mg/dL Glucose (74-99) mg/dL POC Glucose (mg/dL) 228 H 281 H 254 H (70-110) mg/dL 08/24/24 08/24/24 08/24/24 Range/Units 05:02 05:17 05:17 WBC 11.9 H (3.8-10.6) k/uL Hgb 11.4 L (13.0-17.5) gm/dL Hct 38.7 L (39.0-53.0) % MCV 77.6 L (80.0-100.0) fL MCH 22.8 L (25.0-35.0) pg MCHC 29.4 L (31.0-37.0) g/dL RDW 16.1 H (11.5-15.5) % Neutrophils # 9.6 H (1.3-7.7) k/uL ABG pH 7.62 H* (7.35-7.45) ABG pO2 146 H (83-108) mmHg ABG HCO3 37 H (21-25) mmol/L ABG Total CO2 38 H (19-24) mmol/L ABG O2 Saturation >100.0 H (94-97) % Hemoglobin 11.4 L (13.0-17.5) gm/dL Sodium 147 H (137-145) mmol/L Carbon Dioxide 39 H (22-30) mmol/L BUN 69 H (9-20) mg/dL Glucose 183 H (74-99) mg/dL POC Glucose (mg/dL) (70-110) mg/dL 08/24/24 Range/Units 06:04 WBC (3.8-10.6) k/uL Hgb (13.0-17.5) gm/dL Hct (39.0-53.0) % MCV (80.0-100.0) fL MCH (25.0-35.0) pg MCHC (31.0-37.0) g/dL RDW (11.5-15.5) % Neutrophils # (1.3-7.7) k/uL ABG pH (7.35-7.45) ABG pO2 (83-108) mmHg ABG HCO3 (21-25) mmol/L ABG Total CO2 (19-24) mmol/L ABG O2 Saturation (94-97) % Hemoglobin (13.0-17.5) gm/dL Sodium (137-145) mmol/L Carbon Dioxide (22-30) mmol/L BUN (9-20) mg/dL Glucose (74-99) mg/dL POC Glucose (mg/dL) 177 H (70-110) mg/dL Microbiology - Last 24 Hours (Table) 08/21/24 10:12 Gram Stain - Preliminary Sputum Sputum Culture - Preliminary Pseudomonas aeruginosa Methicillin resist S. aureus 08/21/24 23:45 Gram Stain - Final Sputum Sputum Culture - Final Pseudomonas aeruginosa 08/21/24 16:47 Blood Culture - Preliminary Blood 08/21/24 12:40 Anaerobic Culture - Preliminary Neck 08/21/24 12:40 Gram Stain - Preliminary Neck Wound Culture - Preliminary Methicillin resist S. aureus Assessment and Plan (1) Pneumonia Current Visit: Yes Status: Acute Code(s): J18.9 - PNEUMONIA, UNSPECIFIED ORGANISM SNOMED Code(s): 867763508 (2) COVID-19 Current Visit: Yes Status: Acute Code(s): U07.1 - COVID-19 SNOMED Code(s): 286460120 Plan: 1 patient right femoral central line has been discontinued catheter tip as well as local culture will continue current wound care with the [facility] and the patient will monitor closely off antibiotic therapy at this point 2patient with a low-grade fever worsening of the white count concerning for pneumonia as well as a trach site cellulitis 3- trach site culture growing MRSA and sputum is growing Pseudomonas aeruginosa, patient is currently being treated with vancomycin pharmacy to dose and cefepime white count is trending down we will monitor clinical course closely Dictation was produced using [employer] dictation software. please excuse any g rammatical, word or spelling errors. Time with Patient: Less than 30
--- NOTE | 2024-08-25 08:53 | PN ---
PROGRESS NOTE SUBJECTIVE: Dale is a 63-year-old gentleman, who is admitted to ICU with respiratory failure. He is status post trach and PEG. Remains in atrial fibrillation with controlled ventricular rate. Currently on Lopressor 5 mg IV q.6 which will be switched to Lopressor 25 b.i.d. as soon as we were able to use the PEG tube. PHYSICAL EXAMINATION: VITAL SIGNS: Heart rate is 80 beats per minute, blood pressure is 115/87, respiratory rate is 16. GENERAL: The patient is mechanically ventilated. CHEST: Reveals diminished air entry bilaterally. HEART: Reveals first and second heart sounds, irregular rhythm. EXTREMITIES: Reveal mild edema. LABORATORY DATA: Show that the hemoglobin is 11, platelet count is 299. Potassium is 3.8, creatinine is 0.75. ASSESSMENT: Persistent atrial fibrillation with controlled ventricular rate. PLAN: Start the oral metoprolol when we are able to. MAGAN / RICKIN: [id number] /
[2024-08-25] MEDS ORDERED: metroNIDAZOLE 500 MG TAB PEJ/J-Tube SCH (09:00)
[2024-08-25] MEDS: DEXTROSE 5% IN WATER 1,000 ML IV SCH (10:30)
--- NOTE | 2024-08-25 10:30 | P.PN ---
Subjective Progress Note Date: 08/25/24 Acute hypoxic respiratory failure, multifactorial On 08/08/2024, the patient is being seen in follow-up in the intensive care unit. This is a morbidly obese 63-year-old male patient who is currently intubated on the mechanical ventilator. Initially presented to us on 08/05/2024 for respiratory distress and the patient became unresponsive. He is known to have morbid obesity, COPD, chronic A-fib, CVA, hypertension hyperlipidemia. He resides in a skilled nursing and the patient was found to be unresponsive and not breathing properly. His pulse ox was also very low and the patient was hypotensive and minimally responsive. He came into the emergency department where he was intubated and placed on the mechanical ventilator. Since admission, the patient was found to be COVID-19 positive. He had a follow-up chest x-ray today that shows significant rotation, ET tube is probably 1 cm above the damian and there is evidence of left lower lobe consolidation/effusion. Noted at the time of admission, he had also a right upper lobe consolidation in addition to left lower lobe consolidation. Sputum samples have been negative as collected on 08/05/2024 and blood cultures been also negative. No significant leukocytosis. The patient is currently on no antibiotics. The patient is on propofol which is running at 30 mcg/kg/min, and is also on fentanyl at 1 mcg/kg/h.. The patient is on assist-control mode of mechanical ventilation at rate of 20, tidal volume of 500, FiO2 of 60 % with a PEEP of 10. Blood gases from today shows a pH of 7.46 with a pCO2 of 51 and pO2 of 69 and this was an FiO2 of 60%. The patient is on lactated Ringer at rate of 75 cc an hour. The patient receiving vital high-protein at rate of 55 cc an hour. He remains in atrial fibrillation with rapid ventricular response. He is off Cardizem drip . He is also on metoprolol 12.5 mg twice a day and anticoagulation with Eliquis 5 mg p.o. twice a day. He is on Levemir insulin 15 units at bedtime. Earlier this morning, the patient noted to have episodic generalized tonic-clonic seizure-like activity. The patient was kept on propofol. He was given Ativan 2 mg IV push x 2 and started on Keppra. CAT scan of the brain is to follow. EEG is to follow. Neurology consultation is to follow. The patient is on lactated Ringer at rate of 75 cc an hour. Norepinephrine was also started this morning and is currently running at 0.03 mcg/kg/min. He is on EN , vital HP at 35 cc/hr On 08/09/2024, the patient is being seen for a follow-up. The patient remains intubated on the mechanical ventilator. This morning, the patient is on propofol which is running at 15 mcg/kg/min. Noted the propofol rate was gradually reduced as of yesterday and the fentanyl has been discontinued. Overnight, the patient continued to have bradycardic events and the heart rate was dropping as low as in the 40s and the rhythm remains atrial fibrillation. The patient was taken off the beta-blockers. The patient this morning is on assist-control mode of mechanical ventilation at rate of 20, tidal volume of 500, FiO2 of 60% with a PEEP of 5. Blood gas showed a pH of 7.51 with a pCO2 of 43 and pO2 of 64. Chest x-ray showing bilateral airspace disease, worse on the right essentially involving the lung bases. The patient is currently on no pressors. The patient remains on vital high-protein at rate of 45 cc an hour. No further seizure activity has been noted. The patient remains on IV Keppra. EEG showed encephalopathy without any seizure activity. Neurology on the case. The patient remains on IV Zosyn. The patient continues to have significant amount of edema in all 4 extremities and the patient remains on IV Lasix 40 mg every 12 hours. Fluid balance is +180 cc over the past 24 hours. Repeat cultures were sent and the results are still pending. The patient remains on anticoagulation with Eliquis regarding chronic atrial fibrillation. Cardizem drip is off. Metoprolol is currently on hold. On 08/10/2024, the patient is being seen for a follow-up. This morning, the patient is on propofol running at 20 mcg/kg/min. Remains deeply sedated. He is morbidly obese and he remains on the mechanical ventilator due to hypoxic/hypercapnic respiratory failure. This morning, he is on assist-control mode with rate of 20, tidal volume of 500, FiO2 is at 80% with a PEEP of 14. pH is 7.47 with a pCO2 of 44 and pO2 of 67. Chest x-ray shows bilateral pleural effusions and an area of dense consolidation in left upper lobe. There are signs of fluid overload as the patient continues to have extensive edema in all 4 extremities. He is on IV Lasix. Fluid balance is -1.5 L over the past 24 hours. The patient remains on IV Zosyn as an empiric antibiotic coverage. No pressors. No seizure activity and the patient remains on IV Keppra. EEG showed no evidence of any ongoing seizure activity. Remains on vital high-protein at rate of 45 cc an hour and the patient is on Levemir insulin 15 units twice a day. Blood work showed a white cell count of 6.8 with a hemoglobin 9.3 and a platelet count of 310. Sodium level is at 137, BUN is 25 with a creatinine of 0.8 and a potassium level is at 3.8. Procalcitonin level is at 0.48. The patient is afebrile. Hemodynamically, he is in low rate atrial fibrillation. Remains on anticoagulation with Eliquis. On 08/11/2024, the patient is being seen for a follow-up. The patient remains on propofol running at 20 mcg/kg/min. Sedation holiday was done today and the patient was arousable and he was able to follow simple commands. Nevertheless, is not ready for weaning with extubation he was placed back on propofol. At the same time, the patient is on assist-control mode of mechanical ventilation at a rate of 20, tidal volume of 500, FiO2 of 100% with a PEEP of 16. Noted his oxygenation got worse overnight and the patient was placed on 100% FiO2. Current pulse ox is 97%. She has been gradually been his FiO2. The blood gases showed a pH of 7.49 with a pCO2 of 51 and pO2 of 76. The patient is currently on Lasix 40 mg IV every 8 hours and Zaroxolyn 5 mg p.o. twice a day. The net fluid balance is -4.8 L over the past 24 hours. Continues to have evidence of bilateral pleural effusion and extensive pulmonary edema in addition to extensive swelling in the upper and lower extremities bilaterally. He is on Levemir insulin 15 units twice daily. He is on vital high-protein at rate of 45 cc an hour. No seizure activity has been noted. Remains on IV Zosyn. Afebrile. Hemodynamically stable. The white cell count is 6.8 with a hemoglobin 8.7 and a platelet count of 333. The sodium levels at 136, bicarb levels at 34, potassium is at 3.9, BUN is 27 with a creatinine of 0.7. No other significant events overnight. On 08/12/2024, patient remains intubated on mechanical ventilator. The patient is in a significant negative fluid balance and the patient is being diuresed with a combination of Lasix and Zaroxolyn. Fluid balance has been -4 L over the past 24 hours. The patient remains on Lasix 40 mg IV every 8 hours and Zaroxolyn 5 mg p.o. twice a day. The patient's follow-up chest x-ray from today shows improved aeration in the lungs. There is cardiomegaly. There is continued pulmonary edema and bilateral pleural effusions. Tube remains in good location. He is on assist-control mode of mechanical ventilation at rate of 20, tidal volume of 500, FiO2 of 70% with a PEEP of 16. Blood gas showed a pH of 7.54 with pCO2 48 and pO2 of 69. Remains on low rate atrial fibrillation and rate is controlled. Remains on vital high-protein at rate of 48 cc an hour. The white cell count is at 8 with a hemoglobin 8.9 and platelet count of 418. Sodium is at 135, BUN 33 with a creatinine of 0.6. Bicarbonate level is at 35. Afebrile. No other significant events overnight. Was given a sedation holiday and the patient's mentation was appropriate. Based on that, the patient was placed back on propofol which is running at 15 mcg/kg/min. On 08/13/2024, the patient remains intubated on the mechanical ventilator. Unfortunately, oxygenation remains unchanged despite excellent diuresis that the patient has achieved over the past 48 hours. For now, the patient is still on mechanical ventilator. Sedated with propofol running at 50 mcg/kg/min. He is on assist-control mode with rate of 20, tidal volume of 500, FiO2 of 80% with a PEEP of 16. The blood gas showed a pH of 7.56 with a pCO2 of 46 and pO2 of 101. Fluid balance is -4.8 L over the past 24 hours. The patient is afebrile., Comfortable. Hemodynamically stable on no pressors. White cell count of 9.1 with a hemoglobin 9.8 and a platelet count of 461. BUN 34 with a creatinine of 0.7 and sodium level of 134. Follow-up chest x-ray was done today and it shows left-sided pleural effusion, improvement in the volume status. ET tube remains in good location. The patient remains on anticoagulation with Eliquis regarding a low rate controlled atrial fibrillation. The patient remains on Eliquis 5 mg p.o. twice a day. The patient remains on Levemir insulin 20 units twice daily and sliding scale insulin coverage. The patient remains on empiric antibiotic coverage with IV Zosyn. On 08/14/2024, the patient remains on the mechanical ventilator on propofol runni ng at 50 mcg/kg/min. Remains on Lasix and Zaroxolyn. Fluid balance is -5.9 L over the past 24 hours and over the past 72 hours, the patient has been at least 19 L negative fluid balance. The ventilator settings are essentially unchanged. The patient remains on assist-control mode on mechanical ventilation at a rate of 20, tidal volume of 500, FiO2 of 70% with a PEEP of 16. Morning blood gas s howed a pH of 7.52 with a pCO2 of 44 and pO2 of 86. The patient is on Levemir insulin 25 units twice daily. The patient is on vital high-protein. The patient remains on Levemir insulin for blood sugar control and the patient is currently on 25 units twice a day with adequate blood sugar control. Labs from today show a white cell count of 8, hemoglobin of 9.2 and a platelet count of 474. Sodium levels at 133, K is at 3.3, bicarb is at 40, BUN 34 with a creatinine of 0.9. The patient remains on IV Zosyn. Patient was seen today on 08/15/2024, remains in the ICU, intubated and mechanically ventilated, on assist-control rate of 20 tidal volume 500 FiO2 50% PEEP of 12 his ABG is marginal with a pO2 of 72 pCO2 of 45 pH of 7.45, hence no plans to lower down the PEEP from 12 although it was 16 yesterday. Patient remains on propofol 25 mcg/kg/min he is also on vital HP at 55 cc/h cultures h ave been negative procalcitonin 0.18 patient is arousable, follows simple instructions, however he is not quite ready for weaning. In addition to his multiple medical problems, patient has COVID-19 pneumonia, chest x-ray continues to show evidence of bilateral bibasilar and midlung infiltrates, small left pleural effusion is also noted WBC count is 7.2 hemoglobin 9.5 ABG as noted earlier, Basic metabolic profile is normal bicarb is 36 BUN 38 creatinine 0.85 patient was seen today on 08/16/2024, patient remains in the ICU, bated and mechanically ventilated, he is on assist-control rate of 20 tidal volume 500 FiO2 70% PEEP was 12 and increased to 18 as his ABG showed a pO2 of 74 pCO2 52 pH of 7.43 and that was on 70% and PEEP of 12 patient had endotracheal tube changed today done at bedside, and post intubation his O2 saturation remained in the 80s/85%, follow-up ABG showed a pO2 of 54 pCO2 of 52 pH of 7.42 hence the PEEP was increased to 18 and his FiO2 was increased to 100%. Patient had a chest x-ray that showed some interstitial changes and findings of interstitial edema or interstitial infiltrates, Lasix was given at 40 mg IV push. Patient remains on propofol at 45 vital at 50 mL/h, patient had a PICC line placed on 08/15, and today I changed his endotracheal tube because of malfunctioning of his old endotracheal tube and kept popping off and getting disconnected. His Dec adron was changed to Solu-Medrol 60 mg IV push every 6 hours, and looking at the overall picture, patient is not showing significant improvement in the last 10 days and I am recommending surgical evaluation for possible tracheostomy, and PEG tube placement, and eventually may require placement in [facility]. WBC count today is 8.7 hemoglobin 9.9 ABG as noted earlier electrolytes showed low potassium of 3.1, BUN of 42 creatinine 0.77 Patient was seen today on 08/17/2024, remains in the ICU, intubated and mechanically ventilated, patient is on assist-control rate of 20 tidal volume 5 00 FiO2 70% and I cut it down to 50% is PEEP remains 18 ABG today on 70% showed a pO2 of 113 pCO2 43 pH of 7.50. Will try to cut down the FiO2 to 50% and keep PEEP for now at 18 however the patient continues to maintain adequate O2 saturation may cut down the PEEP down to 16. Chest x-ray shows slight improvement compared to yesterday however patient is on a higher PEEP which may be misleading. Patient remains on propofol at 15 mg/kg/min vital HP at 50 cc/h. Patient is on Lasix 40 mg IV push twice daily remains on Eliquis. Off antibiotics, Remains on GI and DVT prophylaxis and mostly diuretics. Procalcitonin level came down to 0.18 hence will not restart antibiotics at this point. Sputum cultures are pending Seen today on 08/18/2024, patient remains in the ICU, intubated and mechanically ventilated, underwent uneventful tracheostomy yesterday, however a PEG tube could not be placed mostly because of his body habitus, surgery will consider open method for placement of the gastrostomy or jejunostomy tube down the line if felt to be necessary next week. In the meantime the patient is intubated mechanically ventilated he is on assist-control rate of 20 tidal volume 500 FiO2 50% PEEP of 16 I cut it down to 14, ABG showed a pO2 of 77 pCO2 41 pH of 7.52 EEG showed severe metabolic encephalopathy patient remains on propofol at 15 mcg/kg/min which I have discontinued today to fully assess mental status off sedation completely remains on enteral feeding patient is receiving tube feeding via nasogastric tube, patient is status post tracheostomy on 08/17/2024 remains on Eliquis remains on Lasix chest x-ray showing slight improvement but again patient is on relatively high PEEP. WBC count is 11.1 hemoglobin 10.3 platelets 512, basic metabolic profile is normal except for low potassium of 3.2 BUN is 53 creatinine 0.8. Patient was seen today on 08/19/2024, patient remains in the ICU, intubated and mechanically ventilated, he is on assist-control rate of 20 tidal volume 500 FiO2 50% PEEP 14 on the current down to 12 ABG showed a pO2 of 100 pCO2 44 pH of 7.50 patient remains on IV fluid at KVO 0.9 normal saline he is receiving vital HP at 50 cc/h his sputum cultures came back negative patient remains off antibiotics chest x-ray continues show a left lower lobe opacity and atelectasis, doubt pneumonia considering his procalcitonin level was normal and sputum was negative patient was on Zosyn which I have discontinued few days ago. Has been off sedation since yesterday, patient is waking up today, seems to follow simple instructions like squeezing hands, wiggling toes and opening eyes as well as sticking out his tongue but seems to be generally weak. WBC count is 11 hemoglobin is 11.2, basic metabolic profile is normal BUN is 56 creatinine 0.81 patient is still receiving enteral feeding via nasogastric tube, could not place PEG tube, however we will decide on the open approach for a PEG tube or jejunostomy tube next Thursday in the meantime I will continue to try possibly trials of weaning, and if I could get the patient to a trach collar, we could possibly deflate the cuff and address swallow evaluation. Seen today on 08/20/2024, patient remains in the ICU, intubated mechanically ventilated. Patient is on assist-control rate of 20 tidal volume 500 FiO2 50% and PEEP 12 I cut it down to 10 based on his ABG with pO2 of 100 pCO2 44 pH of 7.51 patient is awake, follows very simple instructions mostly squeezing hands, but does not wiggle toes today, patient is on vital AF at 55 mL/h, this is given via nasogastric tube, IV fluids at KVO, and he is on Eliquis. Remains on diuretics, he is off antibiotics. Chest x-ray is about the same, left lower lo be atelectasis noted, unchanged, procalcitonin level was normal hence patient has been off antibiotics. WBC count is 11.1 hemoglobin 10.8 basic metabolic profile is normal low potassium of 3.3 being addressed accordingly bicarb is 38 BUN is 58 creatinine 0.66, remains on diuretics. Patient was seen today on 08/21/2024, remains in the ICU, intubated and mechanically ventilated. Patient is on assist-control rate of 24 tidal volume 500 FiO2 50% and PEEP of 8 ABG showed a pO2 of 80, pCO2 46 pH of 7.53. Patient is developing low-grade fever overnight, he is also developing worsening leukocytosis, he has now purulent sputum, hence am recommending that we go back on Zosyn, sputum cultures and trach secretions cultures are pending. In the meantime we will place back on Zosyn. Patient is now up in the chair, tracheostomy site seems to be wide, patient may need reevaluation by surgery, hand surgery was reconsulted to evaluate the tracheostomy site. Attempts were made to have a PEG tube placed endoscopically, however this could not be performed, and surgery may have to consider open gastrostomy tube placement. Today I am asking the surgical staff to address his surgical wounds/tracheostomy site, as it seems to be gaping. Patient is arousable, follows very simple instructions like squeezing hands closing eyes, wiggling toes. Patient is remains on enteral feeding vital AF 55/55 via nasogastric tube. Patient is off propofol, yesterday I recommended Lovenox 80 mg SQ twice daily, he used to be on Eliquis for atrial fibrillation however considering that the patient may require surgery/open gastrostomy tube placement, I am recommending Lovenox for now 80 mg SQ twice daily. Continues on Lasix 40 mg twice daily and today and Zosyn was added. WBC count is up-to-day to 20.3 hemoglobin 11.5, basic metabolic profile is normal bicarb is 37 BUN is 60 creatinine 0.56 chest x-ray showing left lower lobe atelectasis possible left lower lobe airspace disease. Possible pneumonia. 08/22/2024 patient seen and examined at bedside. Patient still remains in ICU intubated and mechanically ventilated. Status post tracheostomy day 4. Patient still noted to have bleeding from tracheostomy site. Ventilator currently on assist-control with a rate of 20, tidal volume 50, FiO2 50% and a PEEP of 8. Patient currently on Zosyn IVPB for empiric coverage, IV Solu-Medrol at 60 mg every 6 hours, and amiodarone drip at 0.5 mg/min. Still currently on vital AF for enteric feeding at the rate of 55. ABG today shows PaO2 of 72, pCO2 49, and pH of 7.5. Labs today show WBC at 16.8, hemoglobin 10.4, platelet count 416,000, sodium 142, potassium 3.7, chloride 95, bicarb 40, BUN 69, creatinine 0.71, glucose 201, calcium 9.5. Chest x-ray showed bilateral opacities consistent with acute infiltrates and/or atelectasis shows no change from prior x-rays. 08/23/2024 patient seen and examined at bedside. Patient still remains in ICU intubated and mechanically ventilated. Status post tracheostomy day 5. Patient still noted to have some bleeding from tracheostomy site. Patient was able to tolerate CPAP for 10 hours. Ventilator currently on assist-control with a rate of 20, tidal volume 500, FiO2 50% and a PEEP of 5. On enteral feeding with Vital AF at a rate of 55. Patient currently on Zosyn IVPB for empiric coverage, IV Solu-Medrol at 60 mg every 6 h, metolazone 5 mg p.o. daily, and Lasix 40 mg every 12 hours. ABG today showed PaO2 75, pCO2 42, pH 7.5. Labs today show WBC 9.8, hemoglobin 10.8, platelet count 436,000, sodium 145, potassium 3.7, bicarb 38, BUN 83, creatinine 0.68, glucose 228, calcium 9.3. Chest x-ray showed bibasilar acute infiltrates and/or atelectasis with small right pleural effusion. Neck cultures from 08/21 showed presumptive MRSA. 08/24/2024 patient seen and examined at bedside. Patient still remains in ICU intubated and mechanically ventilated. Status post tracheostomy day 6. Patient was febrile overnight and was controlled with ice packs. Patient was able to tolerate CPAP for about 10 hours yesterday. Ventilator currently on assist-c ontrol with a rate of 16, tidal volume 500, FiO2 50% and a PEEP of 5. On entering for feeding but has been held for now. Patient currently on cefepime IVPB, vancomycin IV, IV Solu-Medrol at 40 mg every 8 h, metolazone 5 mg p.o. daily, and Lopressor 25 mg p.o. twice daily. ABG showed pO2 146, pCO2 36, and pH of 7.62. Labs today showed WBC 11.9, hemoglobin 11.4, platelet count 431,000, sodium 147, potassium 3.8, chloride 102, bicarb 39, BUN 69, creatinine 0.69, glucose 193, calcium 9.7. Neck cultures from 08/21 showed positive for MRSA. Sputum culture showed positive for Pseudomonas aeruginosa. Chest x-ray today showed stable bibasilar acute infiltrates and/or atelectasis with improvement of the left but worsening on the right. 08/25/2024 patient seen and examined at bedside. Patient still remains in ICU intubated and mechanically ventilated.Status post tracheostomy day 7. Status p ost open jejunostomy tube placement day 1. No acute events overnight. Patient noted to persistent slow oozing of blood at the tracheostomy site. Have patient was able to tolerate CPAP for about 11 hours yesterday. Ventilator currently on assist-control with a rate of 16, tidal volume 500, FiO2 50% and a PEEP of 5. Enteral feeds have been held for now. Patient currently on cefepime IVPB, vancomycin IV, Flagyl 500 3 times daily, IV Solu-Medrol at 40 mg every 8 h, and Lopressor 25 mg p.o. twice daily. ABG showed PaO2 56, pCO2 43, pH 7.48. Labs today show WBC 15.6 hemoglobin 11 platelet count 299,000 sodium 149 chloride 108 bicarb 33 BUN 64 creatinine 0.75 glucose 174 calcium 9.3. Chest x-ray today showed mild cardiomegaly with new mild central vascular congestion consistent with CHF exacerbation, however does not clinically correlate with patient's current state. Tracheostomy, PICC line and NG tube seen and in place. Sputum cultures from 08/21 showed positive for Pseudomonas aeruginosa. Neck cultures from 08/21 showed anaerobic gram-negative bacilli, Sangeeta, MRSA, and Pseudomon as. Review of Systems: Pertinent positives and negatives have been noted above. The rest of systems are unremarkable. Physical exam: GENERAL: Not in distress, nontoxic, 63-year-old white male awake seems to follow simple instructions HEENT: Pupils are round and equally reacting to light. EOMI. No scleral icterus. No conjunctival pallor. Normocephalic, atraumatic. No pharyngeal erythema. No th yromegaly. Tracheostomy site seems to have widened and gaping surgical site, slow light bleeding noted, no discharge seen CARDIOVASCULAR: irregularly irregular S1-S2, no S3 gallop PULMONARY: Good breath sound bilaterally no crackles rhonchi or wheezes ABDOMEN: obese soft nontender no megaly, no rebound, no guarding. Jejunostomy tube site clean and dry with no erythema on surrounding skin. Vertical abdominal incision site is covered with dressing that is clean and dry with no erythema of surrounding skin. MUSCULOSKELETAL: No joint swelling or deformity. EXTREMITIES: No cyanosis, clubbing, continues with 2+ bipedal edema NEUROLOGICAL: Awake and alert, follows simple instructions however patient is extremely weak. Psychiatric: Unable to fully assess SKIN: Patient has a stage II skin ulcer at the distal lateral aspect of the right lower extremity/chronic Impression: -Active: Acute hypoxic respiratory failure requiring intubation mechanical ventilation, multifactorial, s/p tracheostomy on 08/17 Acute COVID-19 pneumonia, improving Leukocytosis, possible bacterial pneumonia. Neck cultures from 08/21 showed anaerobic gram-negative bacilli, Sangeeta, MRSA, and Pseudomonas. Sputum culture positive for Pseudomonas aeruginosa. Acute on chronic diastolic congestive heart failure with preserved EF, stable New onset seizure activity, on Keppra Chronic atrial fibrillation Morbid obesity Malnutrition Status post endotracheal tube changed on 08/16 Status post tracheostomy on 08/17/2024 Status post open jejunostomy on 08/24/2024 Acute metabolic encephalopathy Contraction and posthypercapnic metabolic alkalosis, improving Hypernatremia -Chronic: History of CVA Benign essential hypertension Obesity hypoventilation syndrome with BMI of 63.9 Obstructive sleep apnea syndrome Congestive heart failure with preserved LV function Type 2 diabetes Iron deficiency anemia History of polysubstance abuse History of right foot diabetic infection with previous incision and drainage in July 04, 2023 Recommendation: Continue ventilatory support. SBT again today with PSV 8 and CPAP 5 Continue to hold sedation. Neurology service following. IVF D5 water 75 cc/h initiated Continue Keppra 500mg IVP every 12 hours Continue cefepime 2 g IVPB every 8 hours Continue Vancomycin dosed per pharmacy Flagyl 500 mg p.o. 3 times daily initiated by ID Continue Lopressor 25 mg p.o twice daily. On Lopressor IV for now until enteral feeding tube placed. Continue solumedrol IV to 40mg every 8 hours Continue to hold anticoagulation due to slow bleed at tracheostomy site. Continue nutritional support/enteral feeding to goal rate Tracheostomy and jejunostomy management per surgery service GI prophylaxis: Protonix 40mg IV daily DVT prophylaxis: SCDs Prognosis: guarded. Patient remains critically ill. May transfer to LTAC. Objective - Vital Signs Vital signs: Vital Signs Temp 98.3 F 08/25/24 04:00 Pulse 80 08/25/24 07:00 Resp 16 08/25/24 07:00 BP 115/87 08/25/24 07:00 Pulse Ox 97 08/25/24 07:00 FiO2 50 08/25/24 08:09 Intake & Output 08/24/24 08/25/24 08/25/24 18:59 06:59 18:59 Intake Total 1470 240 20 Output Total 730 1025 35 Balance 740 -785 -15 Weight 182 kg 183.1 kg Intake: IV 1470 240 20 Cefepime 2 gm In Sodium 200 Chloride 0.9% 100 ml @ 25 mls/hr IVPB Q8HR [facility] Rx# :[id number] KVO 170 240 20 Potassium Chloride 10 meq 200 In Water For Injection 1 100ml.bag @ 100 mls/hr IVPB Q1H [facility] Rx#: [id number] Potassium Chloride 20 meq 200 In Water For Injection 1 100ml.bag @ 50 mls/hr IVPB Q2H [facility] Rx#: [id number] Vancomycin 2,500 mg In 500 Sodium Chloride 0.9% 500 ml 500 ml @ 167 mls/hr IVPB ONCE ONE Rx#: [id number] Output: Urine 680 1025 35 Estimated Blood Loss 50 Other: Voiding Method Indwelling Catheter Indwelling Catheter # Bowel Movements 1 ABP, PAP, CO, CI - Last Documented Arterial Blood Pressure 126/76 - Labs CBC & Chem 7: 08/25/24 02:48 08/25/24 07:22 Labs: Abnormal Lab Results - Last 24 Hours (Table) 08/24/24 08/25/24 08/25/24 Range/Units 23:12 02:48 02:48 WBC 15.6 H (3.8-10.6) k/uL Hgb 11.0 L (13.0-17.5) gm/dL Hct 38.8 L (39.0-53.0) % MCV 79.5 L (80.0-100.0) fL MCH 22.6 L (25.0-35.0) pg MCHC 28.4 L (31.0-37.0) g/dL RDW 16.1 H (11.5-15.5) % Neutrophils # 13.8 H (1.3-7.7) k/uL ABG pH (7.35-7.45) ABG pO2 (83-108) mmHg ABG HCO3 (21-25) mmol/L ABG Total CO2 (19-24) mmol/L ABG O2 Saturation (94-97) % Hemoglobin (13.0-17.5) gm/dL Sodium 149 H (137-145) mmol/L Chloride 108 H (98-107) mmol/L Carbon Dioxide 33 H (22-30) mmol/L BUN 64 H (9-20) mg/dL Glucose 174 H (74-99) mg/dL POC Glucose (mg/dL) 165 H (70-110) mg/dL 08/25/24 08/25/24 Range/Units 05:33 06:05 WBC (3.8-10.6) k/uL Hgb (13.0-17.5) gm/dL Hct (39.0-53.0) % MCV (80.0-100.0) fL MCH (25.0-35.0) pg MCHC (31.0-37.0) g/dL RDW (11.5-15.5) % Neutrophils # (1.3-7.7) k/uL ABG pH 7.48 H (7.35-7.45) ABG pO2 56 L* (83-108) mmHg ABG HCO3 32 H (21-25) mmol/L ABG Total CO2 34 H (19-24) mmol/L ABG O2 Saturation 89.7 L (94-97) % Hemoglobin 10.9 L (13.0-17.5) gm/dL Sodium (137-145) mmol/L Chloride (98-107) mmol/L Carbon Dioxide (22-30) mmol/L BUN (9-20) mg/dL Glucose (74-99) mg/dL POC Glucose (mg/dL) 159 H (70-110) mg/dL Microbiology - Last 24 Hours (Table) 08/21/24 16:47 Blood Culture - Preliminary Blood 08/21/24 12:40 Anaerobic Culture - Preliminary Neck Anaerobic Gm Negative Bacilli Sangeeta albicans 08/21/24 12:40 Gram Stain - Final Neck Wound Culture - Final Methicillin resist S. aureus Pseudomonas aeruginosa 08/21/24 10:12 Gram Stain - Preliminary Sputum Sputum Culture - Preliminary Pseudomonas aeruginosa Methicillin resist S. aureus 08/21/24 23:45 Gram Stain - Final Sputum Sputum Culture - Final Pseudomonas aeruginosa
--- NOTE | 2024-08-25 11:41 | P.PN ---
Subjective Progress Note Date: 08/25/24 SURGICAL PROGRESS NOTE CHIEF COMPLAINT: Respiratory failure HISTORY OF PRESENT ILLNESS: Patient remains in the ICU and on the vent. He is status post tracheostomy placement on 08/17/2024. Patient with a small amount of bleeding around the tracheostomy site. Patient is status post J-tube placement yesterday with Dr. Chowdhury. Patient possibly being [facility]. He did have a low-grade temp of 100 last night. WBC is 15.6 Hgb 11.0 PHYSICAL EXAM: VITAL SIGNS: Reviewed. GENERAL: no acute distress. HEENT: Tracheostomy site with minimal bleeding. Holding pressures. ABDOMEN: Soft. Obese. Nondistended. J-tube in place. Dressing clean dry and intact. ASSESSMENT: 1. Acute hypoxic respiratory failure unable to wean from vent status post tracheostomy placement 2. Severe protein calorie malnutrition status post J-tube placement PLAN: -No tube feeds per J-tube for 3 days -No medications ever down J-tube -Patient can be transferred to [facility] from surgical standpoint Physician [employer] note has been reviewed by physician. Signing provider agrees with the documented findings, assessment, and plan of care. Objective - Vital Signs Vital signs: Vital Signs Temp 98.2 F 08/25/24 08:00 Pulse 104 H 08/25/24 11:00 Resp 16 08/25/24 11:00 BP 155/107 08/25/24 11:00 Pulse Ox 99 08/25/24 11:00 FiO2 50 08/25/24 09:25 Intake & Output 08/24/24 08/25/24 08/25/24 18:59 06:59 18:59 Intake Total 1470 240 20 Output Total 730 1025 275 Balance 740 -425 -255 Weight 182 kg 183.1 kg Intake: IV 1470 240 20 Cefepime 2 gm In Sodium 200 Chloride 0.9% 100 ml @ 25 mls/hr IVPB Q8HR [facility] Rx# :[id number] KVO 170 240 20 Potassium Chloride 10 meq 200 In Water For Injection 1 100ml.bag @ 100 mls/hr IVPB Q1H [facility] Rx#: [id number] Potassium Chloride 20 meq 200 In Water For Injection 1 100ml.bag @ 50 mls/hr IVPB Q2H [facility] Rx#: [id number] Vancomycin 2,500 mg In 500 Sodium Chloride 0.9% 500 ml 500 ml @ 167 mls/hr IVPB ONCE ONE Rx#: [id number] Output: Urine 680 1025 275 Estimated Blood Loss 50 Other: Voiding Method Indwelling Catheter Indwelling Catheter Indwelling Catheter # Bowel Movements 1 ABP, PAP, CO, CI - Last Documented Arterial Blood Pressure 126/76 - Labs CBC & Chem 7: 08/25/24 02:48 08/25/24 07:22 Labs: Abnormal Lab Results - Last 24 Hours (Table) 08/24/24 08/25/24 08/25/24 Range/Units 23:12 02:48 02:48 WBC 15.6 H (3.8-10.6) k/uL Hgb 11.0 L (13.0-17.5) gm/dL Hct 38.8 L (39.0-53.0) % MCV 79.5 L (80.0-100.0) fL MCH 22.6 L (25.0-35.0) pg MCHC 28.4 L (31.0-37.0) g/dL RDW 16.1 H (11.5-15.5) % Neutrophils # 13.8 H (1.3-7.7) k/uL ABG pH (7.35-7.45) ABG pO2 (83-108) mmHg ABG HCO3 (21-25) mmol/L ABG Total CO2 (19-24) mmol/L ABG O2 Saturation (94-97) % Hemoglobin (13.0-17.5) gm/dL Sodium 149 H (137-145) mmol/L Chloride 108 H (98-107) mmol/L Carbon Dioxide 33 H (22-30) mmol/L BUN 64 H (9-20) mg/dL Glucose 174 H (74-99) mg/dL POC Glucose (mg/dL) 165 H (70-110) mg/dL 08/25/24 08/25/24 Range/Units 05:33 06:05 WBC (3.8-10.6) k/uL Hgb (13.0-17.5) gm/dL Hct (39.0-53.0) % MCV (80.0-100.0) fL MCH (25.0-35.0) pg MCHC (31.0-37.0) g/dL RDW (11.5-15.5) % Neutrophils # (1.3-7.7) k/uL ABG pH 7.48 H (7.35-7.45) ABG pO2 56 L* (83-108) mmHg ABG HCO3 32 H (21-25) mmol/L ABG Total CO2 34 H (19-24) mmol/L ABG O2 Saturation 89.7 L (94-97) % Hemoglobin 10.9 L (13.0-17.5) gm/dL Sodium (137-145) mmol/L Chloride (98-107) mmol/L Carbon Dioxide (22-30) mmol/L BUN (9-20) mg/dL Glucose (74-99) mg/dL POC Glucose (mg/dL) 159 H (70-110) mg/dL Microbiology - Last 24 Hours (Table) 08/21/24 16:47 Blood Culture - Preliminary Blood 08/21/24 12:40 Anaerobic Culture - Preliminary Neck Anaerobic Gm Negative Bacilli Sangeeta albicans 08/21/24 12:40 Gram Stain - Final Neck Wound Culture - Final Methicillin resist S. aureus Pseudomonas aeruginosa 08/21/24 10:12 Gram Stain - Preliminary Sputum Sputum Culture - Preliminary Pseudomonas aeruginosa Methicillin resist S. aureus 08/21/24 23:45 Gram Stain - Final Sputum Sputum Culture - Final Pseudomonas aeruginosa
[2024-08-25 12:00] LABS: Glucose,Whole Blood 100 mg/dL (70-110)
[2024-08-25 12:03] VITALS: BMI 54.7
[2024-08-25] MEDS: metroNIDAZOLE-NS PMX 500 MG in SALINE 1 100ML.BAG IVPB SCH (12:08)
[2024-08-25 12:16] VITALS: TEMP 97.5
--- NOTE | 2024-08-25 12:18 | P.PN ---
Subjective Progress Note Date: 08/24/24 08/24/2024: Patient was seen for a follow-up. Patient is off sedation. Per nurse, this morning patient was following simple commands. Patient had undergone placement of open jejunostomy tube today. This is because patient has history of gastric surgery, therefore could not have a PEG tube placement. At present patient is slightly sedated. 08/22/2024: Patient was followed up by Dr. Rio Miguel over the last week and Dr. Clemons over this last weekend. Today, Thursday I am resuming neurology service. Patient appears to have had tracheostomy on 08/17/2024. Patient is off sedation since 08/19/2024. Per nursing report, patient opens eyes, but does not track. Squeezes hands intermittently. Moves all 4 extremities. Patient is going for possible PEG placement on 08/24/2024. They may need transfer to LTAC. 08/12/2024: Patient was seen for a follow-up. Patient continues to be unresponsive. With painful stimuli, patient only does facial grimacing. Patient's neurological examination is stable per nurse, but he is requiring more PEEP and respiratory status is not improving, in fact slightly worse. Patient is on propofol 15 mcg/kg's per minute. 08/11/2024: Patient was seen for follow-up patient currently on propofol 15 mcg/kg/min. Per nurse report, with the sedation holiday, patient nodded yes and no appropriately. He wiggle his feet, squeeze the hands, but not much moving proximally. He is breathing was not better, was on PEEP 16, with 100% O2, but not has improved with FiO2 down to 80%. 08/10/2024: Patient was seen for a follow-up. Patient currently on propofol 20 mcg/kg's per minute. Per nurse report, with the sedation holiday, patient opens eyes, coughing gagging and drinking well. However not moving his limbs. Sedation holiday was done for about 30 minutes. 08/09/2024: Patient was seen for follow-up. Patient is off sedation. Patient opens his eyes, but the gaze is deviated upwards. Per nurse report, patient became bradycardic last night going down to 25's. X-ray revealed worsening congestion. Lasix was increased. Patient subsequently oxygen saturation decreased, therefore the PEEP was increased to 14. Last night nurse noted that he was not much responsive. It was the same time he was bradycardic she weaned down the sedation. At present patient is on propofol only 15 mcg/kg's per minute. Fentanyl was turned off at 4 PM yesterday. No seizure-like activity noted. Objective - Vital Signs Vital signs: Vital Signs Temp 98.7 F 08/24/24 13:00 Pulse 110 H 08/24/24 14:00 Resp 22 08/24/24 14:00 BP 122/98 08/24/24 14:00 Pulse Ox 96 08/24/24 14:00 FiO2 50 08/24/24 13:04 Intake & Output 08/23/24 08/24/24 08/24/24 18:59 06:59 18:59 Intake Total 1859 1075 1070 Output Total 1425 780 480 Balance 434 295 590 Weight 182 kg Intake: IV 4882 224 8265 Cefepime 2 gm In Sodium 100 100 100 Chloride 0.9% 100 ml @ 25 mls/hr IVPB Q8HR [facility] Rx# :[id number] KVO 60 120 70 Piperacillin-Tazobactam 3 100 .375 gm In Sodium Chloride 0.9% 100 ml @ 25 mls/hr IVPB Q8HR [facility] Rx# :[id number] Potassium Chloride 10 meq 300 200 In Water For Injection 1 100ml.bag @ 100 mls/hr IVPB Q1H [facility] Rx#: [id number] Pressure Bag 24 Vancomycin 2,500 mg In 500 500 500 Sodium Chloride 0.9% 500 ml 500 ml @ 167 mls/hr IVPB ONCE ONE Rx#: [id number] Tube Feeding 685 325 Other 90 30 Output: Urine 1425 780 430 Estimated Blood Loss 50 Other: Voiding Method Indwelling Catheter Indwelling Catheter Indwelling Catheter ABP, PAP, CO, CI - Last Documented Arterial Blood Pressure 126/76 - Exam Patient is off sedation. Patient has tracheostomy in place. Patient is somnolent at this time. Patient's pupils are equal, round and reacting. Per nurse report, patient does respond well when sedation is off. Reflexes are 1 at the biceps, absent elsewhere. - Labs CBC & Chem 7: 08/25/24 02:48 08/25/24 07:22 Labs: Abnormal Lab Results - Last 24 Hours (Table) 0108/23/24 08/24/24 Range/Units 18:03 23:30 05:02 WBC (3.8-10.6) k/uL Hgb (13.0-17.5) gm/dL Hct (39.0-53.0) % MCV (80.0-100.0) fL MCH (25.0-35.0) pg MCHC (31.0-37.0) g/dL RDW (11.5-15.5) % Neutrophils # (1.3-7.7) k/uL ABG pH 7.62 H* (7.35-7.45) ABG pO2 146 H (83-108) mmHg ABG HCO3 37 H (21-25) mmol/L ABG Total CO2 38 H (19-24) mmol/L ABG O2 Saturation >100.0 H (94-97) % Hemoglobin 11.4 L (13.0-17.5) gm/dL Sodium (137-145) mmol/L Carbon Dioxide (22-30) mmol/L BUN (9-20) mg/dL Glucose (74-99) mg/dL POC Glucose (mg/dL) 281 H 254 H (70-110) mg/dL 08/24/24 08/24/24 08/24/24 Range/Units 05:17 05:17 06:04 WBC 11.9 H (3.8-10.6) k/uL Hgb 11.4 L (13.0-17.5) gm/dL Hct 38.7 L (39.0-53.0) % MCV 77.6 L (80.0-100.0) fL MCH 22.8 L (25.0-35.0) pg MCHC 29.4 L (31.0-37.0) g/dL RDW 16.1 H (11.5-15.5) % Neutrophils # 9.6 H (1.3-7.7) k/uL ABG pH (7.35-7.45) ABG pO2 (83-108) mmHg ABG HCO3 (21-25) mmol/L ABG Total CO2 (19-24) mmol/L ABG O2 Saturation (94-97) % Hemoglobin (13.0-17.5) gm/dL Sodium 147 H (137-145) mmol/L Carbon Dioxide 39 H (22-30) mmol/L BUN 69 H (9-20) mg/dL Glucose 183 H (74-99) mg/dL POC Glucose (mg/dL) 177 H (70-110) mg/dL Microbiology - Last 24 Hours (Table) 08/21/24 10:12 Gram Stain - Preliminary Sputum Sputum Culture - Preliminary Pseudomonas aeruginosa Methicillin resist S. aureus 08/21/24 23:45 Gram Stain - Final Sputum Sputum Culture - Final Pseudomonas aeruginosa 08/21/24 16:47 Blood Culture - Preliminary Blood 08/21/24 12:40 Anaerobic Culture - Preliminary Neck 08/21/24 12:40 Gram Stain - Preliminary Neck Wound Culture - Preliminary Methicillin resist S. aureus Assessment and Plan Assessment: * Altered mental status, likely due to hypoxic/toxic metabolic encephalopathy. Patient was found unresponsive at the facility, with saturation of 70%. * Acute COVID-19 pneumonia. Chest x-ray showing bilateral infiltrates. * Status post tracheostomy 08/17/2024 * Respiratory failure, on mechanical ventilation via tracheostomy * Atrial fibrillation, on Eliquis * Anemia * Hyperlipidemia * Hypertension * Sleep apnea * Diabetic neuropathy * History of CVA * Obesity hyperventilation syndrome with BMI of 63.9 * CHF * Diabetes type 2 * BPH * Previous history of polysubstance abuse Plan: * EEG 08/08/2024, revealed background slowing moderate to severe degree, suggestive of encephalopathy. Some sporadic normal appearing background was also seen, which may pertain to better prognosis. However clinical correlation and follow-up EEG strongly recommended. * Repeat EEG performed 08/17/2024 was abnormal due to background slowing, suggestive of severe encephalopathy, likely due to toxic metabolic derangement. Otherwise no focal slowing, epileptiform discharges or seizure on the EEG. Clinical correlation recommended. * Repeat CT head showed no acute intracranial process. * Patient is now down on Keppra 500 mg twice daily. We will further decrease it down to 500 mg once daily for 3 days and then stop. * Continue Eliquis for atrial fibrillation. * Patient on Zosyn. * Possible PEG placement on 08/24/2024. * Other medical management as per IM and critical care. * Discussed with nursing staff in detail. * Neurologically, clear for transfer to LTAC.
--- NOTE | 2024-08-25 13:03 | P.PN ---
Subjective Progress Note Date: 08/25/24 Principal diagnosis: Reason for follow-up is pneumonia Patient is a 63-year-old male with a past medical history significant for diabetes mellitus hypertension hyperlipidemia atrial fibrillation sleep apnea patient has been brought to the hospital in respiratory distress, patient noted to be at has been reviewed the ICU tested positive for COVID subsequently did have persistent fever and white count concerning for possible aspiration pneumonia prompting this consultation. On today's evaluation that is Patient is status post tracheostomy completed on 08/17/2024, attempted PEG tube placement which could not be placed because of morbid obesity and very thick abdominal wall. On today's evaluation that is 08/25/2024,the patient remains to be afebrile, patient is on ventilator and is currently requiring 50% FiO2 patient is hemodynamic stable not requiring pressors, patient did have a G-tube placement by surgery yesterday no diarrhea and the changes reported. Patient white count is 15.6, creatinine 0.75 trach site Culture also growing anaerobic gram-negative bacilli Objective - Vital Signs Vital signs: Vital Signs Temp 98.2 F 08/25/24 08:00 Pulse 100 08/25/24 10:00 Resp 16 08/25/24 10:00 BP 141/107 08/25/24 10:00 Pulse Ox 99 08/25/24 10:00 FiO2 50 08/25/24 09:25 Intake & Output 08/24/24 08/25/24 08/25/24 18:59 06:59 18:59 Intake Total 1470 240 20 Output Total 730 1025 230 Balance 650 -235 210 Weight 182 kg 183.1 kg Intake: IV 1470 240 20 Cefepime 2 gm In Sodium 200 Chloride 0.9% 100 ml @ 25 mls/hr IVPB Q8HR [facility] Rx# :[id number] KVO 170 240 20 Potassium Chloride 10 meq 200 In Water For Injection 1 100ml.bag @ 100 mls/hr IVPB Q1H [facility] Rx#: [id number] Potassium Chloride 20 meq 200 In Water For Injection 1 100ml.bag @ 50 mls/hr IVPB Q2H [facility] Rx#: [id number] Vancomycin 2,500 mg In 500 Sodium Chloride 0.9% 500 ml 500 ml @ 167 mls/hr IVPB ONCE ONE Rx#: [id number] Output: Urine 680 1025 230 Estimated Blood Loss 50 Other: Voiding Method Indwelling Catheter Indwelling Catheter Indwelling Catheter # Bowel Movements 1 ABP, PAP, CO, CI - Last Documented Arterial Blood Pressure 126/76 - Exam GENERAL DESCRIPTION: Middle-age man intubated through the trach on the vent RESPIRATORY SYSTEM: Unlabored breathing , decreased breath sounds at bases HEART: S1 S2 regular rate and rhythm , ABDOMEN: Soft , mild distention EXTREMITIES: Right groin wound currently dressed - Labs CBC & Chem 7: 08/25/24 02:48 08/25/24 07:22 Labs: Abnormal Lab Results - Last 24 Hours (Table) 08/24/24 08/25/24 08/25/24 Range/Units 23:12 02:48 02:48 WBC 15.6 H (3.8-10.6) k/uL Hgb 11.0 L (13.0-17.5) gm/dL Hct 38.8 L (39.0-53.0) % MCV 79.5 L (80.0-100.0) fL MCH 22.6 L (25.0-35.0) pg MCHC 28.4 L (31.0-37.0) g/dL RDW 16.1 H (11.5-15.5) % Neutrophils # 13.8 H (1.3-7.7) k/uL ABG pH (7.35-7.45) ABG pO2 (83-108) mmHg ABG HCO3 (21-25) mmol/L ABG Total CO2 (19-24) mmol/L ABG O2 Saturation (94-97) % Hemoglobin (13.0-17.5) gm/dL Sodium 149 H (137-145) mmol/L Chloride 108 H (98-107) mmol/L Carbon Dioxide 33 H (22-30) mmol/L BUN 64 H (9-20) mg/dL Glucose 174 H (74-99) mg/dL POC Glucose (mg/dL) 165 H (70-110) mg/dL 08/25/24 08/25/24 Range/Units 05:33 06:05 WBC (3.8-10.6) k/uL Hgb (13.0-17.5) gm/dL Hct (39.0-53.0) % MCV (80.0-100.0) fL MCH (25.0-35.0) pg MCHC (31.0-37.0) g/dL RDW (11.5-15.5) % Neutrophils # (1.3-7.7) k/uL ABG pH 7.48 H (7.35-7.45) ABG pO2 56 L* (83-108) mmHg ABG HCO3 32 H (21-25) mmol/L ABG Total CO2 34 H (19-24) mmol/L ABG O2 Saturation 89.7 L (94-97) % Hemoglobin 10.9 L (13.0-17.5) gm/dL Sodium (137-145) mmol/L Chloride (98-107) mmol/L Carbon Dioxide (22-30) mmol/L BUN (9-20) mg/dL Glucose (74-99) mg/dL POC Glucose (mg/dL) 159 H (70-110) mg/dL Microbiology - Last 24 Hours (Table) 08/21/24 16:47 Blood Culture - Preliminary Blood 08/21/24 12:40 Anaerobic Culture - Preliminary Neck Anaerobic Gm Negative Bacilli Sangeeta albicans 08/21/24 12:40 Gram Stain - Final Neck Wound Culture - Final Methicillin resist S. aureus Pseudomonas aeruginosa 08/21/24 10:12 Gram Stain - Preliminary Sputum Sputum Culture - Preliminary Pseudomonas aeruginosa Methicillin resist S. aureus 08/21/24 23:45 Gram Stain - Final Sputum Sputum Culture - Final Pseudomonas aeruginosa Assessment and Plan (1) Pneumonia Current Visit: Yes Status: Acute Code(s): J18.9 - PNEUMONIA, UNSPECIFIED ORGANISM SNOMED Code(s): 473614241 (2) COVID-19 Current Visit: Yes Status: Acute Code(s): U07.1 - COVID-19 SNOMED Code(s): 557158211 Plan: 1 patient right femoral central line has been discontinued catheter tip as well as local culture will continue current wound care with the [facility] and the patient will monitor closely off antibiotic therapy at this point 2patient with a low-grade fever worsening of the white count concerning for pneumonia as well as a trach site cellulitis 3- trach site culture growing MRSA, Pseudomonas as well as gram-negative bacilli and sputum is growing Pseudomonas aeruginosa, 4patient is currently being treated with vancomycin pharmacy to dose and cefepime we will add IV Flagyl to cover for the anaerobes cannot use Flagyl down the J-tube as this reported by the nursing staff Dictation was produced using [employer] software. please excuse any grammatical, word or spelling errors. Time with Patient: Less than 30
--- NOTE | 2024-08-25 14:14 | P.DS ---
Providers Date of admission: 08/05/24 09:14 Expected date of discharge: 08/25/24 Attending physician: Bryn Hernandez MD Consults: 08/05/24 09:13 Consult Physician Stat Consulting Provider: Aiden Miguel Consult Reason/Comments: cc Do you want consulting provider notified?: Already Contacted 08/07/24 21:43 Consult Physician Stat Consulting Provider: Rio Miguel Consult Reason/Comments: No pupillary response Do you want consulting provider notified?: Already Contacted 08/09/24 08:55 Consult Physician Urgent Consulting Provider: Ranjeet Bernard Consult Reason/Comments: covid, asp pna Do you want consulting provider notified?: Yes 08/16/24 08:54 Consult Physician Routine Consulting Provider: Ori Chowdhury Consult Reason/Comments: Trach and PEG Do you want consulting provider notified?: Yes 08/23/24 10:24 Consult Physician Routine Consulting Provider: Nathaniel Vu Consult Reason/Comments: Afib RVR Do you want consulting provider notified?: Already Contacted Primary care physician: Marisa Gonzalez DO Hospital Course: Final diagnosis Acute hypoxic respiratory failure requiring intubation on admission, currently on mechanical ventilation, FiO2 is 50% with PEEP of 5. Status post tracheostomy on 08/17/2024 COVID infection and possible pneumonia, concerns for aspiration pneumonia Leukocytosis with low-grade temps, repeat cultures obtained along with sputum culture showing Pseudomonas maintained on cefepime and vancomycin Possible seizure like activity, new onset, EEG was abnormal although not showing any epileptiform discharges, continued on Keppra for now with neurology following Possible acute COPD exacerbation versus obesity hypoventilation syndrome Possible bacterial pneumonia, healthcare associated with right upper lobe and left lower lobe infiltrates, ruled out, white count is normal and patient is off antibiotics, cultures are negative Severe sepsis requiring pressor support Acute on chronic diastolic heart failure with preserved EF A-fib and RVR, present on admission with slow ventricular rate dropping into the 30s. Currently rate controlled Right leg wound with recent cultures showing enterococcus faecalis, ESBL and P rovidencia Rettgeri Diabetes Mellitus type 2, uncontrolled with hyperglycemia Steroid induced hyperglycemia Morbid obesity with a BMI of 64.2 Chronic anemia Lactic acidemia/acidosis, improved GI prophylaxis DVT prophylaxis Full Code Discharge disposition Patient is being discharged in a stable condition with guarded prognosis to [facility]. Patient is to continue with tracheostomy care as scheduled. Total time taken is greater than 35 minutes. Hospital course Patient in the intensive care unit currently intubated and sedated on the mechanical ventilator. Patient's chest x-ray today does reveal worsening CHF. He is significantly edematous. Remains sedated with IV fentanyl and propofol. He continues on IV Zosyn. Patient was started on enteral feedings today. blood sugars are elevated in the 200s. 08/07/2024 Patient was evaluated in follow-up in the medical floor he is currently intubated and sedated on the mechanical ventilator. Patient had gone into atr ial fibrillation with rapid ventricular rate overnight requiring IV Cardizem. He has been since transition to oral metoprolol with heart rate better controlled today. He does have a noted history of atrial fibrillation was resumed on his oral Eliquis yesterday. Patient currently has LR running at 75 mL/h he does remain quite edematous mostly in his lower extremities. Patient was noted to have a small amount of yellow bile emesis there has been no residual with his tube feedings and they are continued at a slow rate today of 10 mL/h. He is febrile today temperature of 100.8. An abdominal x-ray was unable to be completed due to patient's body habitus and he is unable to be transported down for x-ray at this time. 08/08/2024 Patient is seen in follow-up in the ICU and overnight placed on mechanical ventilation as patient was noted to have what appeared to be seizure-like activity with no history of seizures and neurology was consulted. Patient was placed on mechanical ventilation currently with an FiO2 of 60% and PEEP is 10 with pulmonary low pressure boiler operator following. Patient remains with low-grade temps and also started on Keppra and is maintained on antibiotics. Cardiology following as well maintained on oral anticoagulation and has been having heart rates in the 40s. Continued on low-dose metoprolol and will continue to monitor closely. Per nursing staff patient also requiring low-dose Levophed and has been started on 40 of IV Lasix daily due to significant swelling. Will follow-up on repeat labs and continue to monitor closely. 08/09/2024 Patient is seen in follow-up with multiple consultations following including pulmonary, neurology, cardiology, and infectious disease consulted. Patient underwent EEG which was abnormal with no epileptiform discharges noted. Patient is continued on Keppra for now. Heart rates in the low 40s although per nursing staff slightly improved this afternoon and is being monitored closely with cardiology following. Patient is continued on Lasix for diuresis with significant volume overload. Wean pressors as tolerated and follow-up on repeat labs. Patient's blood sugars have been more elevated and possible steroid effect will increase long-acting and also Accu-Cheks before meals and at bedtime as well as sliding scale. Adjust accordingly. 08/10/2024 Patient is seen in follow-up today continues on mechanical ventilation in the ICU with an FiO2 of 80% and PEEP is 14. Undergoing sedation holidays and per nursing staff patient will open his eyes and attempt to track although not moving. Patient continues to be extremely edematous and is diuresing maintained on IV Lasix. Heart rates slightly improved and will continue current regimen per cardiology. No plans on extubation at this time. Per nursing staff patient has not had a bowel movement and is continued on bowel regimen. Abdomen is soft and there is positive bowel sounds noted. Patient continued on tube feeds. Highly recommend aspiration precautions and head of the bed elevated 30 to 45 degrees at all times. 08/12/2024 Patient is seen in follow-up today remains in the ICU with multiple consultations following. PEEP remains high at 16 with an FiO2 of 70% and per nursing staff has been having some desaturations and is being increased to 80% FiO2. Patient is maintained on metolazone along with IV Lasix and potassium borderline daily being replaced will add daily supplementation. Patient is having adequate diuresis and kidney functions are stable. Patient undergoing sedation holidays daily with no plans of weaning and extubation at this time. Patient is afebrile and maintained on IV Decadron along with Zosyn. Continue bowel regimen patient does have positive bowel sounds and is tolerating tube feeds at this time. Recommend aspiration precautions with head of the bed elevated 45 degrees at all times. 08/13/2024 Patient evaluated in the intensive care unit with multiple consultations following. Patient remains on the mechanical ventilator with a PEEP of 16 and FiO2 of 70%. Patient is appropriately arousable during sedation holidays. No plans for extubation at this time. Patient continues on IV Zosyn continues on IV Lasix IV Diamox and continues on oral zaroxolyn. Lower extremities remain significantly edematous. Patient is continued on enteral feedings now at goal running at 55 mL/h. Blood glucose has been elevated in the 200s. Chest x-ray today reveals a left-sided pleural effusion. 08/14/2024 Patient eval today in follow-up in the intensive care unit patient remains on mechanical ventilator, FiO2 down to 50%. Chest x-ray today reveals stable left lower lobe infiltrate and effusion. Patient remains on IV decadron daily. IV lasix 40 mg Q12 hour. Increased urine output over the last 24 hours. Lower extremity edema has mildly improved. Bowels are moving. Patient is tolerating enteral feeding. IV zosyn has been discontinued. WBC 8.3, hgb 9.2, sodium 133, BUN 34, creatinine 0.90, magnesium 1.9. Patient evaluated today in follow up in the ICU. Vent settings were decreased yesterday to 50% FiO2 with a PEEP of 12, patient became increasingly hypoxic. Vent settings increased back up to 70% fio2 and PEEP of 16. Remains on IV decadron daily. Continues on IV lasix 40 mg Q12 hour as well as oral zaroxolyn. Chest xray today shows left perihilar infiltrate and small left pleural effusion. Patient remains on enteral feedings with Vital HP running at goal of 50 mls/hr and tolerating. Blood glucose remains elevated in the 200-300s. Labs revealing white blood cell count 7.2, hgb 9.5, sodium 132, BUN 38, creatinine 0.85. Procal 0.18. TSH 1.780. 08/16/2023 Patient evaluated today in the ICU. Remains on mechanical ventilator with PEEP of 70% FiO2 of 16. Chest xray today reveals mild right upper lobe infiltrate. Additional mild infiltrate may be at the left base. General surgery consulted for tracheostomy and PEG tube placement. White blood cell count 8.7, hgb 9.9, sodium 132, potassium 4.5, BUN 42, creatinine 0.77. 08/17/2023 Was evaluated today in the intensive care unit. Patient remains on mechanical ventilator with an FiO2 of 60% and PEEP of 18. X-ray today reveals a mild perihilar increased lung markings stable from comparison. Patient catheter tip are currently negative. His white blood blood count is normal at 8.5, hemoglobin 9.7, sodium 134, BUN of 47 and creatinine of 0.75. Is currently on IV Solu-Medrol 60 mg every 6 hours. He is sedated with propofol. He is on IV Keppra. He is currently off antibiotic at this time. 08/18/2023 Patient is status post tracheostomy placement continues on the mechanical ventilator, FiO2 of 50% and PEEP of 16. Patient continues to have evidence of altered mentation with EEG showing severe metabolic encephalopathy. Relationship Executive planning to discontinue the propofol at this time to assess patient's mental status. He continues on IV Lasix with slight improvement on the chest x-ray today. The PEG tube was unable to be placed secondary to body habitus. Labs today reveal a white blood cell count 11.1, hemoglobin 10.3, sodium 134, potassium 3.2, BUN 53 creatinine of 0.80. 08/19/2024 Patient is seen in follow-up continues in the ICU status post tracheostomy placement currently off sedation and awake today opening eyes and eye tracking attempting to follow commands although is significantly weak. Patient continues on assist mode and FiO2 is 50% and PEEP was decreased to 12. Multiple consultations following including general surgery as they were unable to place a PEG tube and will continue with tube feeds via NG. Considering possible open gastrostomy tube given patient's body habitus. Patient is afebrile and being monitored with infectious disease following off antibiotic therapy. Patient also continues on IV diuresis and tolerating well. Patient being followed by pulmonary attempting to wean as tolerated and also maintained on steroids with mildly elevated blood sugars more so than normal in the 200s will slightly increase long-acting insulin and monitor closely. Follow-up with repeat labs. Case management also following in the event patient will require possible LTAC admission. 08/20/2024 Patient is evaluated today in follow up on the intensive care unit. Patient is status post tracheostomy placement. He remains off sedation. Eyes are opening to verbal stimulation and tracing and following simple commands he is significantly weak. He remains on the mechanical ventilator with FiO2 of 50% and PEEP of 10. He is being considered for trial of CPAP tomorrow. chest xray today reveals stable left lower lobe airspace disease stable support tubes and lines. Patient continues on IV lasix 40 mg every 12 hours. White blood cell count today 11.1, hgb 10.8, sodium 138, potassium 3.3, BUN 58, creatinine 0.66, magnesium 2.1. 08/21/2024 Patient seen in follow-up today continues to be in the ICU with multiple consultations following. Patient remains on tracheostomy and vent with an FiO2 of 50%. Patient is having some increase in white count up to 20 along with low- grade temps and is being reinitiated on antibiotics in the form of Zosyn with infectious disease following. Cardiology following as well and patient is being placed on amiodarone drip. General surgery following status post via tracheostomy and there is some bleeding noted on the tracheostomy site and suture being replaced. Continue head of the bed elevated 35 to 45 degrees at all times and strict aspiration precautions. General surgery following for possible G-tube as well. PEG tube was unsuccessful. 08/22/2024 Patient is seen in follow-up today sitting up in the bed had some continued bleeding around the tracheostomy site and anticoagulation remains on hold and patient with surgery following placed a suture and is continued on packing exchanges around the site. Patient also continues on tube feeds via NG tube with general surgery following discussing possible GE tube with open surgery sometime this week. Hemoglobin is stable above 10 and will monitor closely. Patient is currently on CPAP mode with an FiO2 of 50% and PEEP is 5. Medications being adjusted per cardiology as patient was continued on amiodarone drip. 08/23/2024 Patient is seen and evaluated in follow-up today continues to be in the ICU with multiple consultations following. Patient will be undergoing PEG or G-tube placement with general surgery on 08/24/2024. Patient tolerating tube feeds via NG tube at this time. Cultures are pending of sputum and blood and infectious disease following and patient is maintained on vancomycin along with cefepime and will continue while awaiting finalized cultures. Mild bleeding has seemed to stop around the tracheostomy and has been ongoing trials of CPAP. Plan will be for possible LTAC after patient receives PEG tube placement. Case management is following. 08/24/2024 Patient seen and evaluated in follow-up with multiple consultations following. Patient will receive a jejunostomy tube today as PEG tube was unable to be placed given patient's body habitus. Tube feeds have been on hold and will be resumed once cleared by general surgery. Sputum cultures finalized as Pseudomonas with infectious disease following and will continue. White count mildly elevated at 11, patient is afebrile. 08/25/2024 Patient is continued in the ICU with multiple medical consultations following. Patient is status post J-tube placement and has been resuming tube feeds and tolerating via NG/OG tube with strict aspiration precautions. Per surgery, j- tube is not to be used for 3 days and was placed on 08/24/2024. Patient has been accepted at [facility] and will transport today for continued ongoing tracheostomy care. Patient is medically stable and has been cleared by pulmonary low pressure boiler operator Dr. Miguel for transport to [facility]. Please refer to other consultation notes for further HPI. Overall prognosis is extremely guarded at this time. CODE STATUS needs to be addressed with patient and family. Unable to complete review of systems as patient is currently intubated. Patient does eye track and follow commands PHYSICAL EXAMINATION: GENERAL: The patient is intubated and awake . Fatigues easily although does respond to name and eye tracking and blinking eyes. Patient is following some commands. Significantly weak. He is morbidly obese, well-developed, elderly appearing, extremely edematous of upper and lower extremities and body habitus, ill-appearing. FiO2 is currently 50% with a PEEP of 5 HEENT: Pupils are round and equally reacting to light. EOMI. No scleral icterus. No conjunctival pallor. Normocephalic, atraumatic. No pharyngeal erythema. No thyromegaly. No further bleeding noted around the tracheostomy site and dressings being changed, suture was applied per surgery CARDIOVASCULAR: S1 and S2 muffled, irregular PULMONARY: Diminished breath sounds bilaterally otherwise chest is clear to auscultation, no wheezing , no crackles. ABDOMEN: Soft, obese, nontender, nondistended, normoactive bowel sounds. No palpable organomegaly. Kelly catheter in place MUSCULOSKELETAL: No joint swelling or deformity. EXTREMITIES: No cyanosis, clubbing, continues with significant lower extremity edema bilaterally pitting right lower leg superficial wound is improved with no significant redness and some mild flaking of the skin noted NEUROLOGICAL: Awake although fatigues easily, eye-opening and responding to name, tracking, able to follow simple commands, extremely weak SKIN: No rashes. no petechiae. Please refer to medication reconciliation sheet for a list of medications. The impression and plan of care has been dictated by Jocy Randle, Nurse Practitioner as directed. Dr. Crow MD I have performed a history and examination and MDM of this patient, discussed the same with the dictator, and agree with the dictator's assessment and plan as written ,documented as a scribe. Based on total visit time, I have performed more than 50% of the visit. Patient Condition at Discharge: Critical Plan - Discharge Summary Discharge Rx Participant: No New Discharge Prescriptions: No Action Omeprazole [PriLOSEC] 20 mg PO DAILY Metoprolol Tartrate [Lopressor] 12.5 mg PO BID polyethylene glycoL 3350 [Miralax] 17 gm PO DAILY PRN PRN Reason: Constipation Cholecalciferol [Vitamin D3 (25 Mcg = 1000 Iu)] 25 mcg PO DAILY Furosemide [Lasix] 40 mg PO DAILY Gabapentin 800 mg PO Q8H Dextrose Chew [Glucose Chew Tab] 12 gm PO DAILY PRN PRN Reason: BS <70 Folic Acid 0.8 mg PO HS Acetaminophen [Tylenol 8 Hour] 650 mg PO Q6H PRN PRN Reason: Shortness Of Breath L.acidoph,Paracasei, B.lactis [Probiotic] 1 cap PO DAILY Insulin Lispro [humaLOG Kwikpen] See Protocol SQ ACHS Naloxone HCl [Narcan] 4 mg NASAL ONCE PRN PRN Reason: suspected opioid overdose Naloxone 0.4mg/Ml Injection 0.4 mg IV ONCE PRN PRN Reason: suspected opioid overdose Albuterol Nebulized [Ventolin Nebulized] 2.5 mg INHALATION RT-Q6H PRN PRN Reason: WHEEZING OR SHORTNESS BREATH Apixaban [Eliquis] 5 mg PO BID Dextrose Gel [Glutose 15 Gel] 15 gm PO DAILY PRN PRN Reason: BS <70 Insulin Glargine,Hum.rec.anlog [Lantus Solostar Pen] 20 units SQ DAILY Lactulose 20 gm PO DAILY Losartan [Cozaar] 12.5 mg PO DAILY Magnesium Oxide [Mag-Ox] 400 mg PO HS Tamsulosin [Flomax] 0.4 mg PO DAILY Ciprofloxacin HCl [Cipro] 500 mg PO Q12HR Ipratropium-Albuterol Nebulize [Duoneb 0.5 mg-3 mg/3 ml Soln] 3 ml INHALATION RT-Q4H PRN PRN Reason: Shortness Of Breath Or Wheezing HYDROcodone/APAP 10-325MG [[place] 10-325] 1 tab PO Q6HR PRN PRN Reason: Moderate To Severe Pain (4-10) Discharge Medication List Omeprazole [PriLOSEC] 20 mg PO DAILY 06/27/20 [History] Cholecalciferol [Vitamin D3 (25 Mcg = 1000 Iu)] 25 mcg PO DAILY 05/25/23 [History] Insulin Lispro [humaLOG Kwikpen] See Protocol SQ ACHS 05/25/23 [History] Metoprolol Tartrate [Lopressor] 12.5 mg PO BID 05/25/23 [History] polyethylene glycoL 3350 [Miralax] 17 gm PO DAILY PRN 05/25/23 [History] Furosemide [Lasix] 40 mg PO DAILY 07/25/23 [History] Naloxone HCl [Narcan] 4 mg NASAL ONCE PRN 07/25/23 [History] Gabapentin 800 mg PO Q8H 08/02/23 [History] Albuterol Nebulized [Ventolin Nebulized] 2.5 mg INHALATION RT-Q6H PRN 07/03/24 [History] Apixaban [Eliquis] 5 mg PO BID 07/03/24 [History] Dextrose Chew [Glucose Chew Tab] 12 gm PO DAILY PRN 07/03/24 [History] Dextrose Gel [Glutose 15 Gel] 15 gm PO DAILY PRN 07/03/24 [History] Folic Acid 0.8 mg PO HS 07/03/24 [History] Insulin Glargine,Hum.rec.anlog [Lantus Solostar Pen] 20 units SQ DAILY 07/03/24 [History] Lactulose 20 gm PO DAILY 07/03/24 [History] Losartan [Cozaar] 12.5 mg PO DAILY 07/03/24 [History] Magnesium Oxide [Mag-Ox] 400 mg PO HS 07/03/24 [History] Naloxone 0.4mg/Ml Injection 0.4 mg IV ONCE PRN 07/03/24 [History] Tamsulosin [Flomax] 0.4 mg PO DAILY 07/03/24 [History] Acetaminophen [Tylenol 8 Hour] 650 mg PO Q6H PRN 08/05/24 [History] Ciprofloxacin HCl [Cipro] 500 mg PO Q12HR 08/05/24 [History] HYDROcodone/APAP 10-325MG [[place] 10-325] 1 tab PO Q6HR PRN 08/05/24 [History] Ipratropium-Albuterol Nebulize [Duoneb 0.5 mg-3 mg/3 ml Soln] 3 ml INHALATION RT-Q4H PRN 08/05/24 [History] L.acidoph,Paracasei, B.lactis [Probiotic] 1 cap PO DAILY 08/05/24 [History] Follow up Appointment(s)/Referral(s): Marisa Gonzalez DO [Primary Care Provider] - 1-2 days Activity/Diet/Wound Care/Special Instructions: Tube Feeding Recommendations: Continuous feeds of Vital AF 1.2 @ 70 ml/hr for 24 hours with 30 ml H2O flush Q4 Tube feeds not to start until 3 days post-op per Dr. Luciana Barreto, MS, RD Discharge Disposition: TRANSFER TO SNF/ECF
[2024-08-25 16:52] LABS: Glucose,Whole Blood 119 mg/dL (70-110)
[2024-08-25 17:26] VITALS: BP 151/109; PULSE 94; RESP 14
[2024-08-25] MEDS ORDERED: VANCOMYCIN TROUGH DUE 1 EACH MISC MISCELLANE ONE (19:00)
[2024-08-25] MEDS ORDERED: VANCOMYCIN 2,500 MG in SODIUM CHLORIDE 0.9% 500 ML 500 ML IVPB SCH (20:00)
[2024-08-25] MEDS ORDERED: metroNIDAZOLE-NS PMX 500 MG in SALINE 1 100ML.BAG IVPB SCH (20:00)
[2024-08-26] MEDS ORDERED: levETIRAcetam IV 500 MG/5 ML VIAL IVP SCH (09:00)
== END 2024-08-25 18:49 | DRG 3 ==
LOC: EC 06:48 → 2SICU 09:14
PROVIDERS: ADMIT Internal Medicine; ATTEND Internal Medicine
PROC: 5A1955Z Respiratory Ventilation, Greater than 96 Consecutive Hours (ICD-10-PCS; 2024-08-05)
PROC: 0BH18EZ Insertion of Endotracheal Airway into Trachea, Via Natural or Artificial Opening Endoscopic (ICD-10-PCS; 2024-08-05)
PROC: 03HY32Z Insertion of Monitoring Device into Upper Artery, Percutaneous Approach (ICD-10-PCS; 2024-08-06)
PROC: 4A133B1 Monitoring of Arterial Pressure, Peripheral, Percutaneous Approach (ICD-10-PCS; 2024-08-06)
PROC: 4A133J1 Monitoring of Arterial Pulse, Peripheral, Percutaneous Approach (ICD-10-PCS; 2024-08-06)
PROC: 06HY33Z Insertion of Infusion Device into Lower Vein, Percutaneous Approach (ICD-10-PCS; 2024-08-06)
PROC: 3E033XZ Introduction of Vasopressor into Peripheral Vein, Percutaneous Approach (ICD-10-PCS; 2024-08-06)
PROC: 3E0G76Z Introduction of Nutritional Substance into Upper GI, Via Natural or Artificial Opening (ICD-10-PCS; 2024-08-06)
PROC: 0BH18EZ Insertion of Endotracheal Airway into Trachea, Via Natural or Artificial Opening Endoscopic (ICD-10-PCS; 2024-08-16)
PROC: 0B110Z4 Bypass Trachea to Cutaneous, Open Approach (ICD-10-PCS; principal; 2024-08-17 08:30)
PROC: 0DJ08ZZ Inspection of Upper Intestinal Tract, Via Natural or Artificial Opening Endoscopic (ICD-10-PCS; 2024-08-18)
PROC: 0W363ZZ Control Bleeding in Neck, Percutaneous Approach (ICD-10-PCS; 2024-08-21)
PROC: 0DHA0UZ Insertion of Feeding Device into Jejunum, Open Approach (ICD-10-PCS; 2024-08-24)
PROC: 3E0H76Z Introduction of Nutritional Substance into Lower GI, Via Natural or Artificial Opening (ICD-10-PCS; 2024-08-24)
DX: A41.89 Other specified sepsis (principal); G92.8 Other toxic encephalopathy; J12.82 Pneumonia due to coronavirus disease 2019; E43 Unspecified severe protein-calorie malnutrition; I50.33 Acute on chronic diastolic (congestive) heart failure; J69.0 Pneumonitis due to inhalation of food and vomit; U07.1 COVID-19; J96.01 Acute respiratory failure with hypoxia; J96.02 Acute respiratory failure with hypercapnia; G93.1 Anoxic brain damage, not elsewhere classified; E87.4 Mixed disorder of acid-base balance; E66.2 Morbid (severe) obesity with alveolar hypoventilation; J44.0 Chronic obstructive pulmonary disease with (acute) lower respiratory infection; I27.20 Pulmonary hypertension, unspecified; I11.0 Hypertensive heart disease with heart failure; F19.10 Other psychoactive substance abuse, uncomplicated; E11.40 Type 2 diabetes mellitus with diabetic neuropathy, unspecified; D50.9 Iron deficiency anemia, unspecified; J95.01 Hemorrhage from tracheostomy stoma; Z68.44 Body mass index [BMI] 60.0-69.9, adult; I48.21 Permanent atrial fibrillation; T85.698A Other mechanical complication of other specified internal prosthetic devices, implants and grafts, initial encounter; R18.8 Other ascites; E87.0 Hyperosmolality and hypernatremia; D62 Acute posthemorrhagic anemia; R65.20 Severe sepsis without septic shock; I49.5 Sick sinus syndrome; R56.9 Unspecified convulsions; E11.65 Type 2 diabetes mellitus with hyperglycemia; Z79.4 Long term (current) use of insulin; B96.5 Pseudomonas (aeruginosa) (mallei) (pseudomallei) as the cause of diseases classified elsewhere; Z53.8 Procedure and treatment not carried out for other reasons; E78.5 Hyperlipidemia, unspecified; N40.0 Benign prostatic hyperplasia without lower urinary tract symptoms; E87.6 Hypokalemia; T38.0X5A Adverse effect of glucocorticoids and synthetic analogues, initial encounter; B95.62 Methicillin resistant Staphylococcus aureus infection as the cause of diseases classified elsewhere; Y72.1 Therapeutic (nonsurgical) and rehabilitative otorhinolaryngological devices associated with adverse incidents; Z86.73 Personal history of transient ischemic attack (TIA), and cerebral infarction without residual deficits; Z79.899 Other long term (current) drug therapy; Z79.01 Long term (current) use of anticoagulants; Z87.891 Personal history of nicotine dependence; Z98.84 Bariatric surgery status; Z86.19 Personal history of other infectious and parasitic diseases
CPT/HCPCS: 31500; 36415; 36573; 36600; 43235; 70450; 71045; 80048; 80053; 82805; 83036; 83605; 83735; 83880; 84100; 84132; 84145; 84443; 84484; 85025; 85027; 85610; 85730; 87040; 87070; 87075; 87077; 87186; 87205; 87449; 87636; 93005; 93306; 94002; 94003; 94640; 95822; 96361; 96365; 96366; 96367; 96368; 96375; 96376; 99291